=== PATIENT | female | born 1970 | race Caucasian/White ===

== ENCOUNTER 2021-08-08 08:56 | Emergency (ER) | payer MEDICARE, SELFPAY ==
[2021-08-08 08:57] VITALS: BP 177/107; PULSE 100; RESP 18; TEMP 36.6; O2SAT 100; BMI 26.5
--- NOTE | 2021-08-08 09:04 | ED.RN ---
Pt does state she twisyed her ankle the other day and banged her knee but does not want any x-rays obtained.
--- NOTE | 2021-08-08 09:07 | EDS_ITS ---
HPI History of Present Illness Chief Complaint: Med Refill Detail of Chief Complaint: Prescription refill for chronic pain Informant: patient Onset/Context/Timing Onset: - (Patient with chronic pain since the age of 6. Requesting prescription for pain medicine.) Context: - (Not applicable) Timing: Continuous Quality: Pain Location: Predominantly right side Current Severity: Mild Maximum Severity: Moderate Worsened by: Activity Relieved by: Pain medicine Associated Symptoms Associated Symptoms: No associated symptoms Narrative Narrative: Patient is a 51-year-old woman who relocated from [place]. She states she was sent from the [facility]. She has an appointment to be seen at the [facility] on Wednesday. Patient denies constitutional symptoms. She denies new HEENT symptoms. She denies cardiac respiratory symptoms. She states she has scleroderma. Patient states she is presently on no medicine for scleroderma. She does have history of hypercholesterolemia. 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 Prior similar symptoms: Yes Recent Illness/Hospitalization: No PFSH PFSH Medical History (Updated 08/08/21 @ 09:[address] Omega Starkey MD) Acid reflux High cholesterol History of chronic pain Scleroderma Home Medications oxycodone-acetaminophen 7.5 mg-300 mg tablet 1 tab PO Q6H PRN pain 4 days #16 tabs 08/08/21 [Rx Last Taken Unknown] Allergy/AdvReac Type Severity Reaction Status Date / Time duloxetine [From Cymbalta] Allergy Chest Verified 08/08/21 09:00 tightness trazodone Allergy Chest Verified 08/08/21 09:00 tightness tramadol AdvReac Other Verified 08/08/21 09:00 Surgical History (Updated 08/08/21 @ 09:09 by Qasim Palacios RN) H/O eye surgery History of carpal tunnel surgery Hx of right knee surgery Social History (Updated 08/08/21 @ 09:[address] Omega Starkey MD) household members: none Smoking Status: Current every day smoker substance use type: does not use ROS ROS ED Constitutional Constitutional ED: Denies chills, fever(s), subjective, sweats or weight loss Eyes Eyes: Denies blurry vision or change in vision ENT ENT ED: Denies ear pain, rhinorrhea or sore throat Cardiovascular Cardiovascular: Denies chest pain or palpitations Respiratory/Chest Respiratory/Chest: Denies cough or dyspnea Gastrointestinal Gastrointestinal: Denies nausea or vomiting Neurologic Neurologic: Reports paresthesias, weakness and other Details: Atrophy with neuromuscular deformity of the left upper and lower extremity. EXAM Physical Exam Narrative Exam Narrative: Patient presents after referral from [facility]. She states she has an appointment on Wednesday. She has a letter from the pain and spine consultants that she was seen when she resided in [place]. She has relocated to [place]. Const Vital Signs: 08/08/21 08:57 Temperature 97.9 F Temperature Source Temporal Pulse Rate 100 Respiratory Rate 18 Blood Pressure 177/107 H Blood Pressure Mean 130 Pulse Ox 100 Oxygen Delivery Method Room Air Positive well nourished; Negative for well developed Constitutional Narrative: Patient has significant atrophy of the left upper and lower extremity. There is also shortening of the left lower extremity. General Appearance ED: Negative for well developed Eyes Negative for PERRL or EOMs intact bilaterally Eyes Narrative: The right eye externally appears normal. The left eyelids are sutured shot. Resp normal respiratory effort Cardio regular rate and regular rhythm Extremity Negative for normal to inspection Extremity Narrative: Marked atrophy and deformity of left upper and lower extremity Neuro oriented x3, CN's II-XII intact bilaterally and No no sensory deficits noted Sensorium / Orientation: alert Motor Exam: Negative for strength 5/5 throughout Psych mental status grossly normal Skin no rashes or lesions noted and no wounds MDM MDM MDM Narrative Medical decision making narrative: Confirmed that the patient does have an appointment on Wednesday at the clinic to establish as a new patient. Patient will receive 3-day supply of oxycodone 7.5 mg. Based on prescription from [place] pharmacy she takes 1 tablet 4 times a day. Discharge Plan Triage Chief Complaint: Med Refill ED Provider: Omega Starkey Dx/Rx/DC Orders Clinical Impression: Chronic pain disorder, Prescription refill Prescriptions: New oxycodone-acetaminophen 7.5-300 mg tablet 1 tab PO Q6H PRN (Reason: pain) 4 Days Qty: 16 0RF Primary Care Provider: Frida Ruiz NP Referrals: Frida Ruiz DRILLING RIG OPERATOR, DRILLING RIG OPERATOR-C [Primary Care Provider] - Keep Boubacar appointment Disposition Disposition: Home, Self Care
== END 2021-08-08 09:55 | disposition home or self-care (01) ==
PROVIDERS: Emergency Provider Emergency Medicine; PCP Clinical Nurse Specialist; Visit Provider Emergency Medicine
DX: G89.29 Other chronic pain (principal); Z76.0 Encounter for issue of repeat prescription; F17.200 Nicotine dependence, unspecified, uncomplicated; E78.00 Pure hypercholesterolemia, unspecified
CPT/HCPCS: 99282

== ENCOUNTER 2021-11-21 11:41 | Emergency (ER) | payer MEDICARE, MEDICAID, SELFPAY ==
[2021-11-21 11:42] VITALS: BP 152/110; PULSE 102; RESP 16; TEMP 36.3; O2SAT 100; BMI 26.0
--- NOTE | 2021-11-21 12:14 | EX.ED.UPPERE ---
HPI <LORETTA Zarco - Last Filed: 11/21/21 12:21> History of Present Illness Chief Complaint: Upper Extremity Injury Narrative Narrative: 51-year-old female with history of scleredema with left-sided arm, lower extremity weakness, history of chronic pain, hyperlipidemia. Patient has been in pain management, patient states she had a fall which she fractured her left shoulder, she took an extra Percocet and was dismissed from her pain management. Patient has been seeing her PCP who is been giving her 1 month prescription of 120 Percocets. The PCP referred her to pain management, patient is currently waiting to see pain management here in [place]. Patient was given 12 from her orthopedic 4 days ago, patient states that she is out, she has been on Percocet for 25 years and she is concerned. Patient does have plans to follow-up with a [facility] pain or chills nausea or vomiting. Patient states she has worsening pain to her left shoulder as well as throughout her whole body. PFSH <LORETTA Zarco - Last Filed: 11/21/21 12:21> PFSH Medical History Acid reflux High cholesterol History of chronic pain Scleroderma Home Medications cephalexin 250 mg capsule 250 mg PO TID 10/30/21 [History Last Taken Unknown] oxycodone-acetaminophen 7.5 mg-325 mg tablet (Percocet) 1 tab PO Q8H PRN pain 3 days #12 tabs 11/21/21 [Rx Last Taken Unknown] Allergy/AdvReac Type Severity Reaction Status Date / Time duloxetine [From Cymbalta] Allergy Chest Verified 11/21/21 11:45 tightness trazodone Allergy Chest Verified 11/21/21 11:45 tightness tramadol AdvReac Other Verified 11/21/21 11:45 Surgical History H/O eye surgery History of carpal tunnel surgery Hx of right knee surgery Social History household members: other details: step dad Smoking Status: Current every day smoker tobacco type: cigarettes alcohol intake: never substance use type: does not use what type of physical activity do you participate in: other details: stretches frequency: daily ROS <LORETTA Zarco - Last Filed: 11/21/21 12:21> ROS ED ROS Narrative Constitutional: Negative for fever, chills, weight loss, weakness Eyes: Negative for vision loss, vision change, double vision ENT: Negative for any sore throat, ear pain, congestion Cardiovascular: Negative for any chest pain, tightness, palpitations Respiratory: Negative for any cough, sputum production, hemoptysis, dyspnea, dyspnea on exertion, orthopnea Gastrointestinal: Negative for any abdominal pain, nausea, vomiting, diarrhea, constipation, blood in stool, blood in vomit : Negative for any urinary frequency, dysuria, retention, blood in urine Muscle skeletal: Negative for any muscle joint pain, stiffness, myalgias, arthralgias, neck pain, back pain. Positive for left shoulder pain, left leg pain, chronic muscle pain Neurological: Negative for any headache, syncope, numbness or tingling, dizziness Skin: Negative for any rashes, lumps, itching, abrasions, lacerations Psychiatric: Negative for any depression, anxiety, stress, suicidal ideation, homicidal ideation Hematologic: Negative for any easy bruising, excessive bruising, easy bleeding Allergies: Negative for any eczema, hives, rash EXAM <LORETTA Zarco - Last Filed: 11/21/21 12:21> Physical Exam Narrative Exam Narrative: Vital signs reviewed. HEET: Head normocephalic atraumatic, TMs clear bilaterally. Posterior pharynx is clear, moist mucous membranes. Nares clear bilaterally. Patient does have no use of her left eye. Neck: Supple with no lymphadenopathy or tenderness. No signs of meningismus, negative jolt sign. Cardiac: Regular rate and rhythm no murmurs gallops or rubs, equal peripheral pulses bilaterally. Respiratory: Lungs clear to auscultation bilaterally. No chest tenderness. Abdomen: Soft, nontender, nondistended. No abdominal bruit or pulsatile masses. No hepatosplenomegaly Extremities: Patient's left upper and lower extremities are deformed secondary to scleredema. Neuro: Cranial nerves II through XII intact, no focal neurological deficits. Skin: Clean dry and intact with no rash, purpura, petechiae, vesicles or pustules. Backs/flank: No CVA tenderness, no midline spinal tenderness, no deformity. Psych: Normal mood and affect. No SI, HI or acute psychosis. Const Vital Signs: 11/21/21 11:42 Temperature 97.4 F L Temperature Source Temporal Pulse Rate 102 H Respiratory Rate 16 Blood Pressure 152/110 H Blood Pressure Mean 124 Pulse Ox 100 Oxygen Delivery Method Room Air [facility] <Riaz PelaezLORETTA - Last Filed: 11/21/21 12:21> [facility] Narrative Medical decision making narrative: Patient appears to be in no respiratory distress, patient's vital signs are stable. Patient presents the emergency department for acute on chronic pain, concerning about her Percocet. Patient states that she has been on Percocet for 25 years, she is having difficulty getting to the pain management clinic here, she has seen her PCP, orthopedic, and they are no longer providing Percocet for her. Patient is requesting Percocet tabs, 3 days worth, so she can taper herself off until she sees the pain management clinic. I did have a long conversation with the patient regarding this, she has to be aware that we are not her pain clinic, we are not her PCP, and we will not be providing her chronic pain medicine for her chronic pain. Patient is verbally understanding of this, she does have a plan in place. Patient will receive 3 days of pain medicine, this will be used until she follows up with her pain management. Patient is happy with the plan of care and is stable for discharge <Dr. Uli Groves, - Last Filed: 11/21/21 16:29> [facility] Narrative Medical decision making narrative: Patient appears to be in no respiratory distress, patient's vital signs are stable. Patient presents the emergency department for acute on chronic pain, concerning about her Percocet. Patient states that she has been on Percocet for 25 years, she is having difficulty getting to the pain management clinic here, she has seen her PCP, orthopedic, and they are no longer providing Percocet for her. Patient is requesting Percocet tabs, 3 days worth, so she can taper herself off until she sees the pain management clinic. I did have a long conversation with the patient regarding this, she has to be aware that we are not her pain clinic, we are not her PCP, and we will not be providing her chronic pain medicine for her chronic pain. Patient is verbally understanding of this, she does have a plan in place. Patient will receive 3 days of pain medicine, this will be used until she follows up with her pain management. Patient is happy with the plan of care and is stable for discharge Attending note: Patient seen and evaluated with hadoop architect. I perform my own [id number] evaluation. I agree with the plan of work-up. Chronic pain with scleroderma, fairly recent fracture shoulder followed by orthopedics. She is seeing pain management. On Percocet 7.5 mg. Due to pill count off she is discharged from the practice. Orthopedics has written her recent prescriptions last time was nearly a week ago. She is being referred to local pain management. She is here for assistance. Exam atrophy left side extremities due to her scleroderma. Patient limited range of motion left upper extremity. Vitals stable nontoxic. OARRS report reviewed no overlap. Prescription a week ago. Discussed given 3 days prescription however refills cannot go through the ED. She understands this. All questions were answered. Discharge Plan Triage Chief Complaint: Upper Extremity Injury ED Midlevel Provider: Riaz Pelaez ED Provider: Uli Groves Dx/Rx/DC Orders Clinical Impression: Chronic pain, Medication refill, Hx of scleroderma Instructions: Chronic Pain Therapies Mind Body, ED Chronic Pain Prescriptions: New oxycodone-acetaminophen [Percocet] 7.5-325 mg tablet 1 tab PO Q8H PRN (Reason: pain) 3 Days Qty: 12 0RF No Action cephalexin 250 mg capsule 250 mg PO TID Primary Care Provider: Frida Ruiz NP Referrals: Frida Ruiz ROCK MASON APPRENTICE, ROCK MASON APPRENTICE-C [Primary Care Provider] - Activity Restrictions/Additional Instructions: You need to follow-up with the pain management. Disposition Disposition: Home, Self Care Discharge Date/Time: 11/21/21 12:41
== END 2021-11-21 12:41 | disposition home or self-care (01) ==
LOC: ED 12:30
PROVIDERS: Emergency Provider Emergency Medicine; PCP Clinical Nurse Specialist; Visit Provider Emergency Medicine
DX: G89.29 Other chronic pain (principal); M34.9 Systemic sclerosis, unspecified; Z76.0 Encounter for issue of repeat prescription; E78.00 Pure hypercholesterolemia, unspecified; K21.9 Gastro-esophageal reflux disease without esophagitis; F17.210 Nicotine dependence, cigarettes, uncomplicated; Z79.899 Other long term (current) drug therapy
CPT/HCPCS: 99282

== ENCOUNTER → 2022-04-08 | Outpatient (CLI) | payer MEDICARE, MEDICAID, SELFPAY ==
--- NOTE | 2022-04-08 18:25 | MRI_ITS ---
STUDY: MRI RIGHT HIP REASON FOR EXAM: Female, 51 years old. History of scleroderma since age 6 with severe right hip pain. Sclerotic right femoral lesion. TECHNIQUE: Standardized fat and water weighted pulse sequences were obtained in all 3 orthogonal planes before and after the administration of 9 mL of Clariscan contrast intravenously. COMPARISON: X-rays dated January 2022 and prior MRI dated April 2021. FINDINGS: Small bilateral hip effusions. Normal acetabulum. Normal labrum. 11 mm in diameter circumscribed lesion in the anterior and lateral aspect of the right humeral head, unchanged from comparison MRI study of April 2021. Correlating this lesion with the radiographs, the most likely diagnosis is a benign enchondroma. No aggressive features and no abnormal contrast enhancement. Normal femoral neck and intratrochanteric region. Normal gluteus minimus, medius and iliopsoas tendons and distal insertions. Marked greater trochanteric bursitis (coronal series 12 and 15 images 10-16). Normal superior and inferior pubic rami. Normal pubic symphysis. Normal ischial tuberosity. Normal origin of the hamstring tendons. Normal visualized iliac wing, sacroiliac joint, and sacral ala. Normal visualized soft tissue structures of the pelvis. MRI/Lower Ext Joint Only W/WO Cont IMPRESSION: Circumscribed lesion in the right humeral head compatible with enchondroma, unchanged from prior MRI study of April 2021. Marked right greater trochanteric bursitis. Bilateral small hip effusions. Electronically Signed: Tone , at 9:57 EST ,
== END | disposition home or self-care (01) ==
LOC: MRI 17:40
PROVIDERS: PCP Nurse Practitioner Primary Care; Visit Provider Internal Medicine Medical Oncology
DX: Q78.2 Osteopetrosis (principal)
CPT/HCPCS: 73723; A9575

== ENCOUNTER → 2022-05-08 | Outpatient (CLI) | payer MEDICARE, MEDICAID, SELFPAY ==
[2022-05-08] MEDS: 0.9% NaCl PICC Flush IV ×2 (09:49→10:34)
[2022-05-08 10:00] VITALS: BP 127/73; PULSE 94; RESP 16; O2SAT 100; BMI 23.3
== END | disposition home or self-care (01) ==
LOC: MEDOUTP 09:40
PROVIDERS: PCP Nurse Practitioner Primary Care
DX: L03.114 Cellulitis of left upper limb (principal)
CPT/HCPCS: 96365; A4216

== ENCOUNTER 2022-05-09 09:25 | Outpatient (CLI) | payer MEDICARE, MEDICAID, SELFPAY ==
[2022-05-09 10:02] VITALS: BP 141/83; PULSE 81; RESP 18; TEMP 36.8; O2SAT 100
[2022-05-09] MEDS: 0.9% NaCl PICC Flush IV ×2 (10:05→11:08)
[2022-05-09 11:09] VITALS: BP 145/83; PULSE 77; RESP 18; TEMP 36.8; O2SAT 98
== END 2022-05-09 11:15 | disposition home or self-care (01) ==
LOC: MEDOUTP 09:25 → MS3 09:26
PROVIDERS: PCP Nurse Practitioner Primary Care
DX: L03.114 Cellulitis of left upper limb (principal)
CPT/HCPCS: 96365; A4216

== ENCOUNTER 2022-05-10 10:07 | Outpatient (CLI) | payer MEDICARE, MEDICAID, SELFPAY ==
[2022-05-10 09:45] VITALS: BP 159/81; PULSE 90; RESP 18; TEMP 37; O2SAT 100
[2022-05-10] MEDS: 0.9% NaCl PICC Flush IV ×2 (09:48→10:39)
[2022-05-10 10:39] VITALS: BP 159/81; PULSE 80; RESP 18; TEMP 36.7; O2SAT 100
== END 2022-05-10 10:46 | disposition home or self-care (01) ==
LOC: MEDOUTP 10:07 → MS3 10:08
PROVIDERS: PCP Nurse Practitioner Primary Care
DX: L03.114 Cellulitis of left upper limb (principal)
CPT/HCPCS: 96365; A4216

== ENCOUNTER → 2022-05-11 | Outpatient (CLI) | payer MEDICARE, MEDICAID, SELFPAY ==
[2022-05-11] MEDS: 0.9% NaCl PICC Flush IV (10:43)
[2022-05-11 10:54] VITALS: BP 150/79; PULSE 90; RESP 16; TEMP 36; O2SAT 100; BMI 23.3
[2022-05-11 11:51] VITALS: BP 144/77; PULSE 79; RESP 14; TEMP 36.2; O2SAT 99
== END | disposition home or self-care (01) ==
LOC: MEDOUTP 10:28
PROVIDERS: PCP Nurse Practitioner Primary Care
DX: L03.90 Cellulitis, unspecified (principal)
CPT/HCPCS: 96365; 96375; J7050; A4216

== ENCOUNTER → 2022-05-12 | Outpatient (CLI) | payer MEDICARE, MEDICAID, SELFPAY ==
[2022-05-12] MEDS: 0.9% NaCl PICC Flush IV ×2 (10:52→12:07)
[2022-05-12 10:56] VITALS: BP 151/77; PULSE 94; RESP 14; O2SAT 99; BMI 23.3
[2022-05-12 12:11] VITALS: BP 160/72; PULSE 81; RESP 16; TEMP 36.7; O2SAT 100
== END | disposition home or self-care (01) ==
LOC: MEDOUTP 10:39
PROVIDERS: PCP Nurse Practitioner Primary Care
DX: L03.90 Cellulitis, unspecified (principal)
CPT/HCPCS: 96365; 96375; J7050; A4216

== ENCOUNTER → 2022-05-13 | Outpatient (CLI) | payer MEDICARE, MEDICAID, SELFPAY ==
[2022-05-13 12:37] VITALS: BP 144/83; PULSE 88; RESP 16; TEMP 36.6; O2SAT 100
[2022-05-13] MEDS: 0.9% NaCl PICC Flush IV ×2 (12:40→13:40)
[2022-05-13 13:42] VITALS: BP 144/78; PULSE 81; RESP 16; TEMP 36.2; O2SAT 100
== END | disposition home or self-care (01) ==
LOC: MEDOUTP 12:12
PROVIDERS: PCP Nurse Practitioner Primary Care
DX: L03.90 Cellulitis, unspecified (principal)
CPT/HCPCS: 96361; 96365; J7050; A4216

== ENCOUNTER 2022-05-14 10:18 | Emergency (ER) | payer MEDICARE, MEDICAID, SELFPAY ==
[2022-05-14 10:19] VITALS: BP 124/108; PULSE 113; RESP 18; TEMP 35.9; O2SAT 98; BMI 23.6
--- NOTE | 2022-05-14 10:32 | EX.ED.UPPERE ---
HPI History of Present Illness HPI Narrative: Wound evaluation and dressing change. Chief Complaint: Wound Informant: patient Onset/Context/Timing Onset: Days Current Severity: Mild Maximum Severity: Mild Narrative Narrative: 51-year-old female has severe scleroderma of her left upper and left lower extremity. Recently developed a wound infection of her left forearm. Has been receiving IV antibiotics via PICC line to treat that. She has a wound on her left mid forearm. Last night it was bleeding and they applied a dressing in [place]. She said it feels too tight and want to get it off and change today. She denies any fever or chills. She is being cared for at the wound care center. Prior similar symptoms: Yes Recent Illness/Hospitalization: Yes [facility] Medical History Acid reflux B12 deficiency Blindness of left eye Carpal tunnel syndrome Depression with anxiety Golfers elbow of right upper extremity High cholesterol History of chronic pain Insomnia Muscle spasms of both lower extremities Osteoporosis Right hip pain Scleroderma Soft tissue mass Vitamin D deficiency Home Medications amitriptyline 50 mg tablet 50 mg PO QHS 12/10/21 [History Last Taken Unknown] atorvastatin 20 mg tablet 20 mg PO QHS 12/10/21 [History Last Taken Unknown] dexlansoprazole 60 mg capsule,biphase delayed release 60 mg PO DAILY 12/10/21 [History Last Taken Unknown] eszopiclone 3 mg tablet 3 mg PO QHS 12/10/21 [History Last Taken Unknown] cetirizine 10 mg capsule (Zyrtec) 10 mg PO DAILY PRN PRN allergies 03/04/22 [History Last Taken Unknown] cholecalciferol (vitamin D3) 1,250 mcg (50,000 unit) capsule 1,250 mcg PO QWEEK 03/04/22 [History Last Taken Unknown] fenofibric acid (choline) 45 mg capsule,delayed release 45 mg PO DAILY 03/04/22 [History Last Taken Unknown] oxycodone-acetaminophen 7.5 mg-325 mg tablet (Percocet) 1 tab PO Q6H PRN Pain 05/08/22 [History Last Taken Unknown] Allergy/AdvReac Type Severity Reaction Status Date / Time duloxetine [From Cymbalta] Allergy Chest Verified 05/14/22 10:21 tightness trazodone Allergy Chest Verified 05/14/22 10:21 tightness tramadol AdvReac Other Verified 05/14/22 10:21 Family History Aunt Cancer lung Mother Diabetes Surgical History H/O eye surgery History of carpal tunnel surgery Hx of right knee surgery Social History household members: other details: step dad Smoking Status: Current every day smoker tobacco type: cigarettes alcohol intake: never substance use type: does not use what type of physical activity do you participate in: other details: stretches frequency: daily ROS ROS ED ROS Narrative Denies. Review of Systems ROS Unobtainable: Denies due to encephalopathy Constitutional Constitutional ED: Denies chills or fever(s) Eyes Eyes: Denies blurry vision ENT ENT ED: Denies ear pain Cardiovascular Cardiovascular: Denies chest pain Respiratory/Chest Respiratory/Chest: Denies cough or dyspnea Gastrointestinal Gastrointestinal: Denies abdominal pain Genitourinary Genitourinary ED: Denies dysuria or hematuria Musculoskeletal Musculoskeletal: Denies back pain Integumentary Denies abscess Neurologic Neurologic: Denies headache(s) Psychiatric Psychiatric: Denies anxiety or depression Endocrine Endocrinology: Denies cold intolerance Hematologic/Lymphatic Hematologic/Lymphatic: Denies easy bleeding Allergic/Immunologic Allergic/Immunologic ED: Denies mouth swelling EXAM Physical Exam Narrative Exam Narrative: Middle-age female no acute distress. Vital signs stable afebrile. H EENT exam she is blind in her left eye. Moist membranes. Neck nontender. Lungs clear. Heart regular rhythm. Rate about 110. No murmur. Chest wall nontender. Abdomen soft nontender. She has severe deformities with loss of muscle mass and tissue about the left upper and lower extremity from severe scleroderma. She has deformity of her left hand but has use of it. There is a wound in the mid left forearm on the dorsal side. There is a dressing in place. There is no significant swelling. She has a palpable radial pulse. She is able to open and close her hand but it is chronically deformed as is the entire arm. At this time there is no significant cellulitis. The arms not warm to the touch. I took down the dressing on the left forearm the gauze is adhered to the skin and the nurses will work to have that taken off. And change the dressing. Significant deformity and scleroderma of her left leg. She is awake and alert. She is moving all 4 extremities. Const Vital Signs: 05/14/22 10:19 Temperature 96.7 F L Temperature Source Temporal Pulse Rate 113 H Respiratory Rate 18 Blood Pressure 124/108 H Blood Pressure Mean 113 Pulse Ox 98 Oxygen Delivery Method Room Air Positive well nourished and well developed; Negative for obese, contractures or unkempt General Appearance ED: well developed and NAD; Negative for unkempt, contractures, cyanotic or diaphoretic Nutritional Appearance: Negative for obese HEENT Reports moist mucous membranes normocephalic and atraumatic; Negative for trauma or tenderness Eyes PERRL and EOMs intact bilaterally Eyes Narrative: Blind left eye. Neck full ROM and supple General: Negative for tenderness Lymph Lymphatic: Negative for other Chest Wall inspection of chest normal and palpation of chest normal Resp normal respiratory effort and clear to auscultation bilaterally Effort and Inspection: Negative for pain with movement Auscultation: Negative for rales, rhonchi or wheezes Cardio regular rate, regular rhythm, S1 normal heart sound, S2 normal heart sound and no murmurs Rate: Negative for bradycardia or tachycardic GI non-tender, non-distended and no masses Inspection: Negative for abdominal distention Auscultation: normoactive bowel sounds Palpation: soft; Negative for tender or guarding Back/Spine no CVA tenderness Cervical Spine: Negative for cervical spine tenderness Thoracic Spine / Upper Back: Negative for thoracic spinal tenderness Lumbar Spine / Lower Back: Negative for lumbar spinal tenderness Extremity Negative for normal to inspection or full ROM Extremity Narrative: Chronic deformity of the left upper and lower extremity due to scleroderma. Muscular atrophy. Contractures. Left forearm wound dressed. Dressing is adhered to the wound will need get that off. There is no edema. General Extremety ED: Yes edema General Extremity: edema Neuro oriented x3 and moves all extremities Sensorium / Orientation: alert, oriented to person, oriented to place and oriented to time; Negative for orientation impaired or lethargic Motor Exam: strength 5/5 throughout Psych mental status grossly normal Appearance: Negative for unkempt Attitude: No agitated Mood & Affect: Negative for depressed, anxious or tearful Skin Skin Narrative: Left forearm wound with dressing on it. No cellulitis. Chronic changes left upper lower extremity from scleroderma. General Skin Exam: Negative for petechiae Lesions: No no lesions Rashes: no rashes Trauma: no lacerations or abrasions MDM MDM MDM Narrative Medical decision making narrative: Patient appears to be getting resolution of the left forearm wound. We will clean the wound and dress it. Currently there is no significant cellulitis. She is already on IV antibiotics through a PICC line. She has severe scleroderma of the left upper lower extremity. She nurses will change the dressing she will be discharged home. Continue your current therapy and follow-up with the wound care center. History & Record Review Discussion w/independent historian: Patient Discharge Plan Triage Chief Complaint: Wound ED Provider: Jimmy Crouch Dx/Rx/DC Orders Clinical Impression: Open wound of left forearm, History of scleroderma Prescriptions: No Action dexlansoprazole 60 mg capsule,biphase delayed releas 60 mg PO DAILY Label Comments: TAKE 1 CAPSULE BY MOUTH ONCE DAILY amitriptyline 50 mg tablet 50 mg PO QHS eszopiclone 3 mg tablet 3 mg PO QHS Label Comments: TAKE 1 TABLET BY MOUTH ONCE DAILY AT BEDTIME atorvastatin 20 mg tablet 20 mg PO QHS Label Comments: TAKE 1 TABLET BY MOUTH AT BEDTIME cholecalciferol (vitamin D3) 1,250 mcg (50,000 unit) capsule 1,250 mcg PO QWEEK fenofibric acid (choline) 45 mg capsule,delayed release(DR/EC) 45 mg PO DAILY Zyrtec 10 mg capsule 10 mg PO DAILY PRN PRN (Reason: allergies) oxycodone-acetaminophen [Percocet] 7.5-325 mg tablet 1 tab PO Q6H PRN (Reason: Pain) Primary Care Provider: Vale Block NP Referrals: Vale Block NP, SOLAR ENERGY CONSULTANT AND DESIGNER-C [Primary Care Provider] - As Needed Activity Restrictions/Additional Instructions: Follow-up with wound care center. Follow-up with those who are treating your wound with the antibiotics. Disposition Disposition: Home, Self Care
== END 2022-05-14 11:47 | disposition home or self-care (01) ==
LOC: ED 10:43
PROVIDERS: Emergency Provider Emergency Medicine; PCP Nurse Practitioner Primary Care; Visit Provider Emergency Medicine
DX: S51.802A Unspecified open wound of left forearm, initial encounter (principal); M34.9 Systemic sclerosis, unspecified; E78.00 Pure hypercholesterolemia, unspecified; Z79.899 Other long term (current) drug therapy; K21.9 Gastro-esophageal reflux disease without esophagitis; G47.00 Insomnia, unspecified; F17.210 Nicotine dependence, cigarettes, uncomplicated
CPT/HCPCS: 36592; 80053; 80202; 85027; 85652; 99282; J7050; A4216

== ENCOUNTER 2022-05-14 12:04 | Outpatient (CLI) | payer MEDICARE, MEDICAID, SELFPAY ==
[2022-05-14] MEDS: 0.9% NaCl PICC Flush IV ×2 (12:56→13:53)
[2022-05-14 12:57] VITALS: BP 147/81; PULSE 96; RESP 15; TEMP 36.4; O2SAT 98; BMI 23.6
[2022-05-14 13:13] LABS: Hematocrit 32.5 % (37-47); Hemoglobin 10.6 g/dL (12.0-15.0); Mean Corp Hgb Conc 32.6 g/dL (32-36); Mean Corpuscular Hgb 30.2 pg (27.0-32.0); Mean Corpuscular Volume 92.6 fL (81-99); Mean Platelet Vol. 9.5 fl (6.2-12.0); Platelet Count 363 K/mm3 (150-450); RBC Distribution Width CV 12.9 % (11.6-14.6); RBC Distribution Width SD 43.8 fl (35.1-43.9); Red Blood Count 3.51 M/mm3 (4.2-5.4); White Blood Count 7.4 K/mm3 (4.4-11.0)
[2022-05-14 13:23] LABS: Erythrocyte Sedimentation Rate 40 mm/hr (0-30)
[2022-05-14 13:30] LABS: ALB/GLOB Ratio 0.6 RATIO (0.9-2.4); AST(SGOT) 22 U/L (15-37); Alanine Aminotransfer ALT/SGPT 11 U/L (13-56); Albumin, Serum 2.9 g/dL (3.2-5.0); Alkaline Phosphatase 141 U/L (45-117); Anion Gap 9 (5-15); BUN 10 mg/dL (7-18); BUN/Creat Ratio 10.8 RATIO (10-20); Calcium,Total 9.4 mg/dL (8.5-10.1); Chloride 102 mmol/L (98-107); Creatinine, Serum 0.93 mg/dL (0.55-1.02); EST Glomerular Filtration Rate 68 mL/min (>60); Est Glom Filt Rate - Afr Amer 83 mL/min (>60); Estimated Creatinine Clearance 51.35 ml/min; Globulin 4.5 g/dL (2.2-4.2); Glucose 104 mg/dL (74-106); Potassium 3.1 mmol/L (3.5-5.1); Protein, Total 7.4 g/dL (6.4-8.2); Sodium Level 138 mmol/L (136-145)
[2022-05-14 13:33] VITALS: BP 159/77; PULSE 78; RESP 14; TEMP 36.6; O2SAT 98
[2022-05-14 13:45] LABS: Vancomycin, Trough Level < 0.8 ug/mL (5.0-15.0)
== END 2022-05-14 23:59 | disposition home or self-care (01) ==
LOC: MEDOUTP 12:05
PROVIDERS: PCP Nurse Practitioner Primary Care
DX: L03.114 Cellulitis of left upper limb (principal)
CPT/HCPCS: 96365; 96367; 36592; 80053; 80202; 85027; 85652; J7050; A4216

== ENCOUNTER → 2022-05-15 | Outpatient (CLI) | payer MEDICARE, MEDICAID, SELFPAY ==
[2022-05-15] MEDS: 0.9% NaCl PICC Flush IV ×2 (11:33→12:33)
[2022-05-15] MEDS: 0.9% NaCl IVPB Med Flush (250 mL) 15 ML IV (11:36)
[2022-05-15 11:38] VITALS: BP 144/75; PULSE 82; RESP 16; TEMP 35.9; O2SAT 100; BMI 23.6
[2022-05-15 12:34] VITALS: BP 140/67; PULSE 77; O2SAT 100
== END | disposition home or self-care (01) ==
LOC: MEDOUTP 11:15
PROVIDERS: PCP Nurse Practitioner Primary Care
DX: L03.90 Cellulitis, unspecified (principal)
CPT/HCPCS: 96365; J7050; A4216

== ENCOUNTER 2022-05-16 12:25 | Outpatient (CLI) | payer MEDICARE, MEDICAID, SELFPAY ==
[2022-05-16] MEDS: 0.9% NaCl PICC Flush IV ×2 (12:39→13:32)
== END 2022-05-16 13:36 | disposition home or self-care (01) ==
LOC: MEDOUTP 12:26 → MS3 12:26
PROVIDERS: PCP Nurse Practitioner Primary Care
DX: L03.114 Cellulitis of left upper limb (principal)
CPT/HCPCS: 96365; A4216

== ENCOUNTER 2022-05-17 12:16 | Outpatient (CLI) | payer MEDICARE, MEDICAID, SELFPAY ==
[2022-05-17] MEDS: 0.9% NaCl PICC Flush IV (12:21)
== END 2022-05-17 13:15 | disposition home or self-care (01) ==
LOC: MEDOUTP 12:17 → MS3 12:18
PROVIDERS: PCP Nurse Practitioner Primary Care
DX: L03.114 Cellulitis of left upper limb (principal)
CPT/HCPCS: 96365; A4216

== ENCOUNTER → 2022-05-18 | Outpatient (CLI) | payer MEDICARE, MEDICAID, SELFPAY ==
[2022-05-18] MEDS: 0.9% NaCl PICC Flush IV ×2 (13:47→14:46)
[2022-05-18 13:49] VITALS: BP 142/67; PULSE 91; RESP 16; TEMP 36.7; O2SAT 100
[2022-05-18 14:47] VITALS: BP 135/60; PULSE 75; RESP 16; TEMP 36.3; O2SAT 95
== END | disposition home or self-care (01) ==
LOC: MEDOUTP 13:22
PROVIDERS: PCP Nurse Practitioner Primary Care
DX: L03.90 Cellulitis, unspecified (principal)
CPT/HCPCS: 96365; J7050; A4216

== ENCOUNTER → 2022-05-19 | Outpatient (CLI) | payer MEDICARE, MEDICAID, SELFPAY ==
[2022-05-19] MEDS: 0.9% NaCl PICC Flush IV ×2 (13:33→14:28)
[2022-05-19 13:35] VITALS: BP 135/61; PULSE 61; RESP 16; TEMP 36.7; O2SAT 98
[2022-05-19 14:32] VITALS: BP 121/71; PULSE 82; RESP 16; TEMP 36; O2SAT 100
== END | disposition home or self-care (01) ==
LOC: MEDOUTP 13:19
PROVIDERS: PCP Nurse Practitioner Primary Care
DX: L03.90 Cellulitis, unspecified (principal)
CPT/HCPCS: 96365; J7050; A4216

== ENCOUNTER → 2022-05-20 | Outpatient (CLI) | payer MEDICARE, MEDICAID, SELFPAY ==
[2022-05-20] MEDS: 0.9% NaCl PICC Flush IV ×2 (13:25→14:25)
[2022-05-20] MEDS: 0.9% NaCl IVPB Med Flush (250 mL) 15 ML IV (13:25)
[2022-05-20 13:26] VITALS: BP 116/67; PULSE 83; RESP 16; TEMP 36.4; O2SAT 98
[2022-05-20 14:27] VITALS: BP 133/70; PULSE 79; RESP 16; TEMP 36.2; O2SAT 99
== END | disposition home or self-care (01) ==
LOC: MEDOUTP 13:02
PROVIDERS: PCP Nurse Practitioner Primary Care
DX: L03.90 Cellulitis, unspecified (principal)
CPT/HCPCS: 96365; 96367; J7050; A4216

== ENCOUNTER → 2022-05-21 | Outpatient (CLI) | payer MEDICARE, MEDICAID, SELFPAY ==
[2022-05-21 14:40] VITALS: BP 139/70; PULSE 87; RESP 16; TEMP 36.6; O2SAT 100; BMI 23.6
[2022-05-21] MEDS: 0.9% NaCl PICC Flush IV ×2 (14:44→15:49)
[2022-05-21 15:25] LABS: Erythrocyte Sedimentation Rate 42 mm/hr (0-30); Hematocrit 31.5 % (37-47); Hemoglobin 10.4 g/dL (12.0-15.0); Mean Corpuscular Volume 93.8 fL (81-99); Mean Platelet Vol. 9.7 fl (6.2-12.0); Platelet Count 374 K/mm3 (150-450); RBC Distribution Width SD 44.4 fl (35.1-43.9); Red Blood Count 3.36 M/mm3 (4.2-5.4); White Blood Count 6.1 K/mm3 (4.4-11.0)
[2022-05-21 15:50] VITALS: BP 152/73; PULSE 75; RESP 16; TEMP 36.3
[2022-05-21 15:54] LABS: ALB/GLOB Ratio 0.7 RATIO (0.9-2.4); AST(SGOT) 30 U/L (15-37); Alanine Aminotransfer ALT/SGPT 18 U/L (13-56); Albumin, Serum 3.1 g/dL (3.2-5.0); Alkaline Phosphatase 157 U/L (45-117); Anion Gap 7 (5-15); BUN 8 mg/dL (7-18); BUN/Creat Ratio 10.8 RATIO (10-20); Calcium,Total 9.2 mg/dL (8.5-10.1); Chloride 103 mmol/L (98-107); Creatinine, Serum 0.74 mg/dL (0.55-1.02); EST Glomerular Filtration Rate 88 mL/min (>60); Est Glom Filt Rate - Afr Amer 107 mL/min (>60); Estimated Creatinine Clearance 64.53 ml/min; Globulin 4.2 g/dL (2.2-4.2); Glucose 94 mg/dL (74-106); Potassium 3.5 mmol/L (3.5-5.1); Protein, Total 7.3 g/dL (6.4-8.2); Sodium Level 139 mmol/L (136-145)
== END | disposition home or self-care (01) ==
LOC: MEDOUTP 14:20
PROVIDERS: PCP Nurse Practitioner Primary Care
DX: L03.114 Cellulitis of left upper limb (principal)
CPT/HCPCS: 96365; 96367; 80053; 85027; 85652; A4216

== ENCOUNTER → 2022-05-26 | Outpatient (CLI) | payer MEDICARE, MEDICAID, SELFPAY | END | disposition home or self-care (01) | PROVIDERS: PCP Nurse Practitioner Primary Care | DX: Z00.00 Encounter for general adult medical examination without abnormal findings (principal) ==

== ENCOUNTER → 2022-08-31 | Outpatient (CLI) | payer MEDICARE, MEDICAID, SELFPAY ==
[2022-08-31 13:10] LABS: Amphetamine Urine VISTA NEGATIVE (<1000 ng/mL); Barbiturate Urine VISTA NEGATIVE (< 200 ng/mL); Benzodiazepine Urine VISTA NEGATIVE (< 200 ng/mL); Cocaine Urine VISTA NEGATIVE (< 300 ng/mL); Ecstacy Urine VISTA NEGATIVE (< 500 ng/mL); Methadone Urine VISTA NEGATIVE (< 300 ng/mL); PCP Urine VISTA NEGATIVE (< 25 ng/mL); THC Urine VISTA POSITIVE (< 50 ng/mL); Vista UDS pH Range 6
== END | disposition home or self-care (01) ==
LOC: LAB 11:57
PROVIDERS: Referring Provider Anesthesiology Pain Medicine; Visit Provider Anesthesiology Pain Medicine
DX: F11.20 Opioid dependence, uncomplicated (principal)
CPT/HCPCS: 80307

== ENCOUNTER 2023-02-15 14:21 | Emergency (ER) | payer MEDICARE, MEDICAID, SELFPAY ==
[2023-02-15 14:22] VITALS: BP 175/92; PULSE 106; RESP 16; TEMP 36.2; O2SAT 100; BMI 24.1
--- NOTE | 2023-02-15 14:32 | EX.ED.DYSGE1 ---
HPI History of Present Illness Chief Complaint: General Illness Informant: patient Onset/Context/Timing Onset: Days (5 days) Narrative Narrative: Patient presents secondary to cough and congestion. She states that she saw her father last Wednesday who was later diagnosed with COVID and ultimately admitted to the hospital. On she started getting cough and congestion. She took a home COVID test on Wednesday that was negative but continues to feel ill. She had some subjective fevers but did not measure her temperature at home. She has a cough with mild green sputum production. No chest pain. She does not feel short of breath. [facility] Medical History Acid reflux B12 deficiency Blindness of left eye Carpal tunnel syndrome Depression with anxiety Golfers elbow of right upper extremity High cholesterol History of chronic pain Insomnia Muscle spasms of both lower extremities Osteoporosis Right hip pain Scleroderma Soft tissue mass Vitamin D deficiency Home Medications amitriptyline 50 mg tablet 50 mg PO QHS 12/10/21 [History Last Taken Unknown] atorvastatin 20 mg tablet 20 mg PO QHS 12/10/21 [History Last Taken Unknown] dexlansoprazole 60 mg capsule,biphase delayed release 60 mg PO DAILY 12/10/21 [History Last Taken Unknown] eszopiclone 3 mg tablet 3 mg PO QHS 12/10/21 [History Last Taken Unknown] cetirizine 10 mg capsule (Zyrtec) 10 mg PO DAILY PRN PRN allergies 03/04/22 [History Last Taken Unknown] cholecalciferol (vitamin D3) 1,250 mcg (50,000 unit) capsule 1,250 mcg PO QWEEK 03/04/22 [History Last Taken Unknown] fenofibric acid (choline) 45 mg capsule,delayed release 45 mg PO DAILY 03/04/22 [History Last Taken Unknown] oxycodone-acetaminophen 7.5 mg-325 mg tablet (Percocet) 1 tab PO Q6H PRN Pain 05/08/22 [History Last Taken Unknown] Allergy/AdvReac Type Severity Reaction Status Date / Time duloxetine [From Cymbalta] Allergy Chest Verified 02/15/23 14:23 tightness trazodone Allergy Chest Verified 02/15/23 14:23 tightness tramadol AdvReac Other Verified 02/15/23 14:23 Family History Aunt Cancer lung Mother Diabetes Surgical History H/O eye surgery History of carpal tunnel surgery Hx of right knee surgery Social History household members: other details: step dad Smoking Status: Current every day smoker tobacco type: cigarettes alcohol intake: never substance use type: does not use what type of physical activity do you participate in: other details: stretches frequency: daily ROS ROS ED Constitutional Constitutional ED: Reports fever(s) and subjective; Denies chills Eyes Eyes: Denies change in vision or discharge from eye(s) ENT ENT ED: Reports other Details: Congestion ; Denies discharge from eye(s) or rhinorrhea Cardiovascular Cardiovascular: Denies chest pain or palpitations Respiratory/Chest Respiratory/Chest: Reports cough and sputum; Denies dyspnea Gastrointestinal Gastrointestinal: Denies abdominal pain, diarrhea, nausea or vomiting Genitourinary Genitourinary ED: Denies dysuria Musculoskeletal Musculoskeletal: Reports myalgias; Denies back pain or extremity pain Integumentary Denies Abrasions or rash Neurologic Neurologic: Reports weakness; Denies headache(s) Psychiatric Psychiatric: Denies anxiety or depression Allergic/Immunologic Allergic/Immunologic ED: Denies lip swelling or urticaria EXAM Physical Exam Const Vital Signs: 02/15/23 14:22 02/15/23 14:57 Temperature 97.2 F L Temperature Source Temporal Pulse Rate 106 H Respiratory Rate 16 Respiratory Pattern Normal Blood Pressure 175/92 H Blood Pressure Mean 119 Pulse Ox 100 Oxygen Delivery Method Room Air Positive well nourished and well developed General Appearance ED: well developed HEENT Reports moist mucous membranes Chest Wall inspection of chest normal and palpation of chest normal Resp normal respiratory effort and clear to auscultation bilaterally Cardio regular rate and regular rhythm GI non-tender Palpation: soft Extremity Extremity Narrative: Chronic contractures left side secondary to scleroderma. Neuro oriented x3 Psych mental status grossly normal Skin no rashes or lesions noted MDM MDM MDM Narrative Medical decision making narrative: Swab for COVID and influenza will be obtained. COVID test does return positive. Patient did have known exposure and is already had symptoms for greater than 5 days. At this point she will continue supportive care. Her O2 sat is 100%. Return instructions are given. Discharge Plan Triage Chief Complaint: General Illness ED Provider: Bianca Powers Dx/Rx/DC Orders Clinical Impression: COVID-19 Instructions: Coronavirus Disease 2019 (COVID-19): Overview, Coronavirus Disease 2019 (COVID-19): Caring for Yourself or Others Prescriptions: No Action dexlansoprazole 60 mg capsule,biphase delayed releas 60 mg PO DAILY Patient Comments: TAKE 1 CAPSULE BY MOUTH ONCE DAILY amitriptyline 50 mg tablet 50 mg PO QHS eszopiclone 3 mg tablet 3 mg PO QHS Patient Comments: TAKE 1 TABLET BY MOUTH ONCE DAILY AT BEDTIME atorvastatin 20 mg tablet 20 mg PO QHS Patient Comments: TAKE 1 TABLET BY MOUTH AT BEDTIME cholecalciferol (vitamin D3) 1,250 mcg (50,000 unit) capsule 1,250 mcg PO QWEEK fenofibric acid (choline) 45 mg capsule,delayed release(DR/EC) 45 mg PO DAILY Zyrtec 10 mg capsule 10 mg PO DAILY PRN PRN (Reason: allergies) oxycodone-acetaminophen [Percocet] 7.5-325 mg tablet 1 tab PO Q6H PRN (Reason: Pain) Primary Care Provider: Jeri Yates Referrals: Jeri Yates [Primary Care Provider] - 1-2 Weeks Disposition Disposition: Home, Self Care
--- OUTSIDE RECORDS SUMMARY | 2023-02-15 15:23 | XMS RPT_ITS | CCD ---
Author Name Unknown Address [address] [place] [address] Organization [facility] Care Team Providers Care Spinneret Cleaner Name Role Phone Bossman DASH, Galdino Carballo Primary Care Provider Toribio Ernandez MD Primary Care Provider Toribio Ernandez MD Primary Care Provider TORIBIO ERNANDEZ Referring Unavailable SILVANA JOE Attending Unavailable TORIBIO ERNANDEZ Primary Care Unavailable MARCELLUS ROSADO Attending Unavailable SILVANA JOE Referring Unavailable TORIBIO ERNANDEZ Primary Care Unavailable SUMAYA MURPHY-GARRISON, [facility] Primary Care Physician ASIM MOHAMUD, TEA Primary Care Physician [phone] ANTONINO MART MD, DR PATRICK BOND Attending Unavaila enrique SHELL APRN-TAX INTERN, [facility] Primary Care Leigh RUTLEDGE MD, DR PATRICK BOND Consulting UnavailHAMILTON Ge MD Attending Unavailable SUMAYA MURPHY-TAX INTERN, [facility] Primary Care Leigh JAMES MD, DR ALEXIS Jackson Admitting Unavailable BLACK MCCONNELL MD Consulting Unavailable POOJA DASH FACP, OLLIE Rojas Consulting Unavail MATTHIAS Delarosa MD Consulting Unavailable FRAN MOREAU DO Consulting Unavailable SUMAYA PUENTE, SOLIS Primary Care Leigh PUENTE, SOLIS Attending WILLARD Salazar Attending Evelia kenneth PUENTE, [facility] Primary Care Leigh PUENTE, [facility] Primary Care ARMANI Carpio DO Attending Unavailable ARMANI HEALY DO Referring Unavailable PERKINS AUTO CLUTCH SPECIALIST-TAX INTERN, WILLARD Jackson Attending Evelia vailable SEFFENS AUTO CLUTCH SPECIALIST-TAX INTERN, [facility] Primary Care Unavai lable SEFFENS AUTO CLUTCH SPECIALIST-TAX INTERN, [facility] Primary Care Unayashira LUCAS MD, SHRAVAN Rojas Attending Unavailable PERKINS AUTO CLUTCH SPECIALIST-TAX INTERN, WILLARD Jackson Attending Evelia vailable SEFFENS AUTO CLUTCH SPECIALIST-TAX INTERN, [facility] Primary Care Unavai lable SEFFENS AUTO CLUTCH SPECIALIST-TAX INTERN, [facility] Primary Care Unavai lable SEFFENS AUTO CLUTCH SPECIALIST-TAX INTERN, SOLIS Attending Unavai lable SEFFENS AUTO CLUTCH SPECIALIST-TAX INTERN, [facility] Primary Care Unavai lable SEFFENS AUTO CLUTCH SPECIALIST-TAX INTERN, SOLIS Attending Unavai lable SEFFENS AUTO CLUTCH SPECIALIST-TAX INTERN, SOLIS Attending Unavai lable SEFFENS AUTO CLUTCH SPECIALIST-TAX INTERN, [facility] Primary Care Unavai lable KAPPER AUTO CLUTCH SPECIALIST-TAX INTERN, YOHANNES Oakes Admitting Unavaila ble KAPPER AUTO CLUTCH SPECIALIST-TAX INTERN, YOHANNES Oakes Attending Unavaila ble KAPPER AUTO CLUTCH SPECIALIST-TAX INTERN, YOHANNES Oakes Referring Unavaila ble SEFFENS AUTO CLUTCH SPECIALIST-TAX INTERN, [facility] Primary Care Unavai lable SEFFENS AUTO CLUTCH SPECIALIST-TAX INTERN, [facility] Primary Care Leigh GREER MD, DR VILLA Attending Unavaillolis BRIONES MD, DR DAYTON Rasmussen Attending Unavailable SEFFENS AUTO CLUTCH SPECIALIST-TAX INTERN, [facility] Unavai cortez PHYSICIAN, NOT RECORDED Primary Care Unavaila enrique MANCUSO MD, MALVIN Michael Attending Unavail able PERKINS AUTO CLUTCH SPECIALIST-TAX INTERN, WILLARD Jackson Attending Evelia vailable SEFFENS AUTO CLUTCH SPECIALIST-TAX INTERN, [facility] Primary Care Unavai lable SEFFENS AUTO CLUTCH SPECIALIST-TAX INTERN, [facility] Primary Care Unavai cortez LUCAS MD, SHRAVNA Rojas Attending Unavailable VACCKAJAL HERNANDEZ-C, [facility] Primary Care Unavailab le PERKINS AUTO CLUTCH SPECIALIST-TAX INTERN, WILLARD Jackson Attending Evelia vailable PERKINS AUTO CLUTCH SPECIALIST-TAX INTERN, WILLARD Jackson Attending Evelia vailable SEFFENS AUTO CLUTCH SPECIALIST-TAX INTERN, [facility] Primary [facility] Unavai lable Stephenarelldonta HERNANDEZ-C, Tea L Unavailable [phone] SABRINA TINEO Attending Unavailable Junacho Slaughter MD Primary Care Provider JESSICA TRINIDADECCA Attending Unavailable JUANCHO SLAUGHTER Primary Care Unavailable JESSICA TRINIDADECCA Attending Unavailable JUANCHO SLAUGHTER Primary Care Unavailable JESSICA TRINIDADECCA Attending Unavailable JUANCHO SLAUGHTER Primary Care Unavailable DORY TRINIDADCA Attending Unavailable JUANCHO SLAUGHTER Primary Care Unavailable Allergies Allergy Classification Reported Allergen(s) Allergy Type Date of Onset Reaction(s) Facility (1 source) Acetaminophen / oxyCODONE Drug Allergy 0 GI Upset [facility] (20 sources) DULoxetine; Translations: [DULOXETINE] Drug Allergy 2 Other: See Comments, Other [facility] Work Phone: (20 sources) traMADol; Translations: [TRAMADOL] Drug Allergy 2 Other: See Comments, Other, Unknown [facility] Work Phone: (20 sources) traZODone; Translations: [TRAZODONE] Drug Allergy 2 Other: See Comments [facility] Work Phone: Medications Current Medications Medication Drug Class(es) Dates Sig (Normalized) Sig (Original) acetaminophen 325 mg / oxyCODONE hydrochloride 5 mg oral tablet (20 sources) Opioid Agonist Start: 12-07-2022 End: 03-07-2023 take 1 tablet by mouth every eight hours as needed for pain oxyCODONE-acetamin ophen (Percocet) 5-325 MG tablet Indications: Linear scleroderma , Chronic midline thoracic back pain Take 1 tablet by mouth every 8 hours as needed for severe pain (7-10). Do not start before February 05, 2023. 90 tablet 0 02/05/2023 03/07/2023 Active Completed/Discontinued Medications Medication Drug Class(es) Dates Sig (Normalized) Sig (Original) acetaminophen 300 mg / HYDROcodone bitartrate 7.5 mg oral tablet (15 sources) Opioid Agonist End: 11-24-2022 HYDROcodone-acetami nophen (Xodol) 7.5-300 MG tablet tablet Take by mouth. 0 11/24/2022 Discontinued (Therapy completed) Problems Active Problems Problem Classification Problem Date Documented Da te Episodic/Chronic Acquired foot deformities (1 source) Talipes cavus; Translations: [Congenital pes cavus, unspecified foot] Episodic Administrative/social admission (13 sources) Homeless 12-09-2021 Episodic Anxiety disorders (20 sources) Mixed anxiety and depressive disorder; Translations: [Anxiety disorder] Onset: 3 11-26-2021 Chronic Blindness and vision defects (20 sources) Blind left eye; Translations: [Blindness AND/OR vision impairment level] Onset: 3 11-26-2021 Chronic Cancer of breast (13 sources) Personal history of malignant neoplasm of breast; Translations: [History of malignant neoplasm of breast] Onset: Episodic Disorders of lipid metabolism (20 sources) Hypercholesterolemia; Translations: [Pure hypercholesterolemia] Onset: 3 11-26-2021 Chronic Esophageal disorders (20 sources) Gastroesophageal reflux disease; Translations: [Gastroesophageal reflux disease without esophagitis] Onset: 3 11-26-2021 Chronic Essential hypertension (18 sources) Hypertensive disorder; Translations: [Essential (primary) hypertension] Onset: 3 07-21-2022 Chronic Headache; including migraine (12 sources) Headache; Translations: [Headache] Onset: 3 11-24-2022 Episodic Hemorrhoids (20 sources) Hemorrhoids; Translations: [Unspecified hemorrhoids] Onset: 3 03-17-2022 Episodic Immunizations and screening for infectious disease (10 sources) Patient encounter status; Translations: [Encounter for immunization] Onset: Episodic Mood disorders (13 sources) Depressive disorder; Translations: [Depression, unspecified] Onset: 3 Chronic Nausea and vomiting (13 sources) Nausea; Translations: [Nausea] Onset: 3 08-11-2022 Episodic Nutritional deficiencies (20 sources) Vitamin D deficiency; Translations: [Vitamin D deficiency, unspecified] Onset: 3 02-04-2022 Chronic Osteoarthritis (20 sources) Osteoarthritis of right hip joint; Translations: [Secondary osteoarthritis] Onset: 2 04-01-2022 Chronic Osteoporosis (20 sources) Osteoporosis; Translations: [Primary osteoporosis] Onset: 3 02-02-2022 Chronic Other acquired deformities (1 source) Equinus contracture of the ankle; Translations: [Contracture, unspecified ankle] Chronic Other acquired deformities (1 source) Thoracogenic scoliosis, thoracolumbar region; Translations: [Thoracogenic scoliosis of thoracolumbar region] Onset: 2 Chronic Other aftercare (1 source) Long-term current use of opiate analgesic drug; Translations: [termination clerk (current) use of opiate analgesic] Episodic Other aftercare (1 source) termination clerk (current) use of opiate analgesic; Translations: [termination clerk (current) use of opiate analgesic] Onset: 2 Episodic Other and unspecified benign neoplasm (12 sources) Enchondroma of bone; Translations: [Benign neoplasm of bone and articular cartilage, unspecified] Onset: 3 11-24-2022 Episodic Other bone disease and musculoskeletal deformities (9 sources) Lesion of right thigh bone 02-27-2022 Episodic Other circulatory disease (1 source) Elevated blood-pressure reading without diagnosis of hypertension; Translations: [Elevated blood-pressure reading, without diagnosis of hypertension] Episodic Other congenital anomalies (12 sources) Osteopetrosis; Translations: [Osteopetrosis] Onset: 3 11-24-2022 Chronic Other connective tissue disease (1 source) Pain of right calf; Translations: [Pain in right lower leg] Episodic Other connective tissue disease (20 sources) Disorder of lower extremity; Translations: [Disorder of lower extremity] Onset: 3 11-26-2021 Episodic Other connective tissue disease (20 sources) Medial epicondylitis; Translations: [Medial epicondylitis, unspecified elbow] Onset: 3 11-26-2021 Episodic Other connective tissue disease (1 source) Pain in left arm; Translations: [Pain in left arm] Episodic Other connective tissue disease (1 source) Bursitis of right hip; Translations: [Other bursitis of hip, right hip] Episodic Other connective tissue disease (13 sources) Iliotibial band friction syndrome of right knee; Translations: [Iliotibial band syndrome, right leg] Onset: 3 Episodic Other eye disorders (9 sources) Disorder of left eye; Translations: [Other specified disorders of eye and adnexa] Onset: 3 01-06-2023 Episodic Other gastrointestinal disorders (12 sources) Irritable bowel syndrome; Translations: [Irritable bowel syndrome without diarrhea] Onset: 3 11-24-2022 Chronic Other gastrointestinal disorders (20 sources) Constipation; Translations: [Constipation, unspecified] Onset: 3 11-26-2021 Episodic Other inflammatory condition of skin (1 source) Itching ; Translations: [Pruritus, unspecified] Episodic Other nervous system disorders (20 sources) Chronic pain syndrome; Translations: [Chronic pain syndrome] Onset: 2 Chronic Other nervous system disorders (3 sources) Other chronic pain; Translations: [Other chronic pain] Onset: 2 Chronic Other nervous system disorders (20 sources) Carpal tunnel syndrome; Translations: [Carpal tunnel syndrome, unspecified upper limb] Onset: 3 11-26-2021 Chronic Other nervous system disorders (1 source) Chronic pain; Translations: [Other chronic pain] Onset: 3 Chronic Other nervous system disorders (12 sources) Neuropathy; Translations: [Polyneuropathy, unspecified] Onset: 3 11-24-2022 Chronic Other nervous system disorders (1 source) Chronic pain syndrome; Translations: [Chronic pain syndrome] Onset: 3 Chronic Other nervous system disorders (1 source) H/O: BUYER TOBACCO HEAD disorder; Translations: [Personal history of other diseases of the nervous system and sense organs] Episodic Other non-traumatic joint disorders (5 sources) Hip pain 02-04-2022 Episodic Other screening for suspected conditions (not mental disorders or infectious disease) (3 sources) Cancer cervix screening status; Translations: [Encounter for screening for malignant neoplasm of cervix] Onset: 3 Episodic Other skin disorders (17 sources) Linear scleroderma; 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] Onset: 3 11-24-2022 Chronic Other skin disorders (1 source) Linear scleroderma; 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] Onset: 3 Chronic Other skin disorders (2 sources) Foot callus; Translations: [Corns and callosities] Episodic Other skin disorders (13 sources) Mass of soft tissue 12-09-2021 Episodic Otitis media and related conditions (1 source) Infection of ear; Translations: [Otitis media, unspecified, unspecified ear] Episodic Residual codes; unclassified (20 sources) Insomnia; Translations: [Insomnia, unspecified] Onset: 3 Episodic Residual codes; unclassified (13 sources) Chronic pain 11-26-2021 Episodic Residual codes; unclassified (13 sources) Postmenopausal state 11-26-2021 Episodic Residual codes; unclassified (1 source) Tobacco user; Translations: [Tobacco use] Onset: 3 Episodic Residual codes; unclassified (12 sources) Body mass index 20-24 - normal; Translations: [Body mass index (BMI) of 20 to 24] Onset: 3 11-24-2022 Episodic Residual codes; unclassified (2 sources) Insomnia, unspecified; Translations: [Insomnia, unspecified] Onset: 3 Episodic Skin and subcutaneous tissue infections (12 sources) Cellulitis of lower leg; Translations: [Cellulitis of right lower limb] Onset: 3 Episodic Spondylosis; intervertebral disc disorders; other back problems (20 sources) Lumbar spondylosis; Translations: [Spondylosis without myelopathy or radiculopathy, lumbar region] Onset: 2 Chronic Spondylosis; intervertebral disc disorders; other back problems (20 sources) Lumbar radiculopathy; Translations: [Neck pain] Onset: 3 02-25-2022 Episodic Substance-related disorders (1 source) Continuous opioid dependence; Translations: [Opioid use, unspecified, uncomplicated] 11-18-2022 Episodic Unclassified (13 sources) Vaccination needed 11-26-2021 Unclassified (11 sources) Body mass index 20-24 - normal 01-13-2022 Unclassified (20 sources) Patient encounter status 01-13-2022 Past or Other Problems Problem Classification Problem Date Documented Date Episodic/Chronic Fracture of upper limb (12 sources) Closed fracture of clavicle; Translations: [Fracture of unspecified part of unspecified clavicle, initial encounter for closed fracture] Onset: 02-25-2022 11-24-2022 Episodic Nutritional deficiencies (20 sources) Cobalamin deficiency; Translations: [Deficiency of other specified B group vitamins] Onset: 08-12-2021 Episodic Other acquired deformities (20 sources) Acquired deformity of left upper arm; Translations: [Unspecified acquired deformity of left upper arm] Onset: 08-12-2021 Episodic Other acquired deformities (20 sources) Acquired deformity of left lower leg; Translations: [Unspecified acquired deformity of left lower leg] Onset: 08-12-2021 Episodic Other connective tissue disease (17 sources) H/O: musculoskeletal disease; Translations: [Personal history of other diseases of the musculoskeletal system and connective tissue] Onset: 08-12-2021 Episodic Other connective tissue disease (12 sources) Bilateral chronic pain of upper limbs; Translations: [Pain in right arm] Onset: 02-25-2022 11-24-2022 Episodic Other connective tissue disease (12 sources) Bursitis of shoulder; Translations: [Bursitis of unspecified shoulder] Onset: 02-25-2022 11-24-2022 Episodic Other connective tissue disease (12 sources) Disorder of rotator cuff; Translations: [Unspecified disorder of synovium and tendon, unspecified shoulder] Onset: 02-25-2022 11-24-2022 Episodic Other non-traumatic joint disorders (12 sources) Pain in right hip joint; Translations: [Pain in right hip] Onset: 01-30-2022 11-24-2022 Episodic Other non-traumatic joint disorders (2 sources) Pain in left shoulder; Translations: [Pain in joint, shoulder region] Onset: 02-25-2022 02-03-2023 Episodic Other nutritional; endocrine; and metabolic disorders (14 sources) H/O: raised blood lipids; Translations: [Personal history of other endocrine, nutritional and metabolic disease] Onset: 08-12-2021 Episodic Residual codes; unclassified (12 sources) Past history of procedure; Translations: [Other specified postprocedural states] Onset: 02-24-2022 Episodic Systemic lupus erythematosus and connective tissue disorders (14 sources) Systemic sclerosis; Translations: [Systemic sclerosis, unspecified] Onset: 04-29-2022 Resolved: 12-07-2022 Chronic Results Test Name Value Interpretation Reference Range Facil ity Vital Signs Date Time Vital Sign Value Performing Clinician Facility 02-03-2023 15:42-0500 Diastolic blood pressure 83 mm[Hg] Britta Trinidad APRN - TAX INTERN Work Phone: [facility] 12-20-2023 15:42-0500 Systolic blood pressure 150 mm[Hg] Britta Abilioenthal AUTO CLUTCH SPECIALIST - TAX INTERN Work Phone: [facility] 02-03-2023 15:07-0500 Body mass index (BMI) [Ratio] 24.11 kg/m2 Britta Bridenthal AUTO CLUTCH SPECIALIST - TAX INTERN Work Phone: [facility] 02-03-2023 15:07-0500 Body temperature 98.6 [degF] Britta Bridenthal AUTO CLUTCH SPECIALIST - TAX INTERN Work Phone: [facility] 02-03-2023 15:07-0500 Body weight 45.36 kg Britta Bridenthal AUTO CLUTCH SPECIALIST - TAX INTERN Work Phone: [facility] 02-03-2023 15:07-0500 Heart rate 89 /min Britta Bridenthal AUTO CLUTCH SPECIALIST - TAX INTERN Work Phone: [facility] 02-03-2023 15:07-0500 Respiratory rate 18 /min Britta Bridenthal AUTO CLUTCH SPECIALIST - TAX INTERN Work Phone: [facility] 02-03-2023 15:07-0500 SaO2% (BldA) [Mass fraction] 98 % Britta Bridenthal AUTO CLUTCH SPECIALIST - TAX INTERN Work Phone: [facility] 01-06-2023 15:02-0500 Body mass index (BMI) [Ratio] 23.15 kg/m2 Britta Bridenthal AUTO CLUTCH SPECIALIST - TAX INTERN Work Phone: [facility] 01-06-2023 15:02-0500 Body temperature 98.6 [degF] Britta Bridenthal AUTO CLUTCH SPECIALIST - TAX INTERN Work Phone: [facility] 01-06-2023 15:02-0500 Body weight 43.55 kg Britta Bridenthal AUTO CLUTCH SPECIALIST - TAX INTERN Work Phone: [facility] 01-06-2023 15:02-0500 Diastolic blood pressure 82 mm[Hg] Britta Bridenthal AUTO CLUTCH SPECIALIST - TAX INTERN Work Phone: [facility] 01-06-2023 15:02-0500 Heart rate 92 /min Britta Bridenthal AUTO CLUTCH SPECIALIST - TAX INTERN Work Phone: [facility] 01-06-2023 15:02-0500 Respiratory rate 20 /min Britta Bridenthal AUTO CLUTCH SPECIALIST - TAX INTERN Work Phone: [facility] 01-06-2023 15:02-0500 SaO2% (BldA) [Mass fraction] 98 % Britta Bridenthal AUTO CLUTCH SPECIALIST - TAX INTERN Work Phone: [facility] 01-06-2023 15:02-0500 Systolic blood pressure 176 mm[Hg] Britta Bridenthal AUTO CLUTCH SPECIALIST - TAX INTERN Work Phone: [facility] 11-24-2022 09:53-0400 Diastolic blood pressure 93 mm[Hg] Britta Bridenthal AUTO CLUTCH SPECIALIST - TAX INTERN Work Phone: [facility] 11-24-2022 09:53-0400 Heart rate 57 /min Britta Bridenthal AUTO CLUTCH SPECIALIST - TAX INTERN Work Phone: [facility] 11-24-2022 09:53-0400 Systolic blood pressure 166 mm[Hg] Britta Bridenthal AUTO CLUTCH SPECIALIST - TAX INTERN Work Phone: [facility] 11-24-2022 08:43-0400 Body height 137.2 cm Britta Bridenthal AUTO CLUTCH SPECIALIST - TAX INTERN Work Phone: [facility] 11-24-2022 08:43-0400 Body mass index (BMI) [Ratio] 23.48 kg/m2 Britta Bridenthal AUTO CLUTCH SPECIALIST - TAX INTERN Work Phone: [facility] 11-24-2022 08:43-0400 Body temperature 98.4 [degF] Britta Bridenthal AUTO CLUTCH SPECIALIST - TAX INTERN Work Phone: [facility] 11-24-2022 08:43-0400 Body weight 44.18 kg Britta Bridenthal AUTO CLUTCH SPECIALIST - TAX INTERN Work Phone: [facility] 11-24-2022 08:43-0400 Respiratory rate 20 /min Britta Bridenthal AUTO CLUTCH SPECIALIST - TAX INTERN Work Phone: [facility] 11-24-2022 08:43-0400 SaO2% (BldA) [Mass fraction] 98 % Britta Bridenthal AUTO CLUTCH SPECIALIST - TAX INTERN Work Phone: [facility] 11-18-2022 15:04-0400 Body weight 45 kg Sabrina Tineo MD Work Phone: [facility] 11-18-2022 15:04-0400 Diastolic blood pressure 99 mm[Hg] Sabrina Tineo MD Work Phone: [facility] 11-18-2022 15:04-0400 Heart rate 108 /min Sabrina Tineo MD Work Phone: [facility] 11-18-2022 15:04-0400 Systolic blood pressure 186 mm[Hg] Sabrina Tineo MD Work Phone: [facility] 05-13-2022 21:54-0400 Body height 137.[address] DAYTON BRIONES MD [facility] 05-13-2022 21:54-0400 Body temperature 98.24 [degF] DR DAYTON BRIONES MD [facility] 05-13-2022 21:54-0400 Body weight 44.[address] DAYTON BRIONES MD [facility] 05-13-2022 21:54-0400 Diastolic Blood Pressure Non-Invasive [address] DAYTON BRIONES MD [facility] 05-13-2022 21:54-0400 Heart rate 75 /min DR DAYTON BRIONES MD [facility] 05-13-2022 21:54-0400 Respiratory rate 20 /min DR DAYTON BRIONES MD [facility] 05-13-2022 21:54-0400 Systolic Blood Pressure Non-Invasive [address] DAYTON BRIONES MD [facility] 05-07-2022 08:51-0400 Heart rate 84 /min DR ALEXIS JAMES MD [facility] 05-07-2022 08:51-0400 Respiratory rate 20 /min DR ALEXIS JAMES MD [address] [place] [address] 05-07-2022 07:39-0400 Diastolic Blood Pressure Non-Invasive [address] ALEXSI JAMES MD [address] [place] [address] 05-07-2022 07:39-0400 Systolic Blood Pressure Non-Invasive [address] ALEXIS JAMES MD [address] [place] [address] 05-07-2022 07:22-0400 Body temperature 98.06 [degF] DR ALEXIS JAMES MD [address] [place] [address] 05-07-2022 07:22-0400 Heart rate 84 /min DR ALEXIS JAMES MD [address] [place] [address] 05-07-2022 07:22-0400 Reason For Taking VItal Signs DR ALEXIS JAMES MD [address] [place] [address] 05-07-2022 07:22-0400 Respiratory rate 20 /min DR ALEXIS JAMES MD [address] [place] [address] 05-07-2022 00:59-0400 Body temperature 98.6 [degF] DR ALEXIS JAMES MD [address] [place] [address] 05-07-2022 00:59-0400 Diastolic Blood Pressure Non-Invasive [address] ALEXIS JAMES MD [address] [place] [address] 05-07-2022 00:59-0400 Heart rate 95 /min DR ALEXIS JAMES MD [address] [place] [address] 05-07-2022 00:59-0400 Respiratory rate 20 /min DR ALEXIS JAMES MD [address] [place] [address] 05-07-2022 00:59-0400 Systolic Blood Pressure Non-Invasive [address] ALEXIS JAMES MD [address] [place] [address] 05-06-2022 19:47-0400 Heart rate 90 /min DR ALEXIS JAMES MD [address] [place] [address] 05-06-2022 19:47-0400 Reason For Taking VItal Signs DR ALEXIS JAMES MD [address] [place] [address] 05-06-2022 16:42-0400 Body temperature 98.06 [degF] DR ALEXIS JAMES MD [address] [place] [address] 05-06-2022 16:42-0400 Diastolic Blood Pressure Non-Invasive [address] ALEXIS JAMES MD [address] [place] [address] 05-06-2022 16:42-0400 Heart rate 93 /min DR ALEXIS JAMES MD [address] [place] [address] 05-06-2022 16:42-0400 Reason For Taking VItal Signs DR ALEXIS JAMES MD [address] [place] [address] 05-06-2022 16:42-0400 Systolic Blood Pressure Non-Invasive [address] ALEXIS JAMES MD [address] [place] [address] 05-06-2022 16:10-0400 Heart rate 92 /min DR ALEXIS JAMES MD [address] [place] [address] 05-06-2022 16:00-0400 Heart rate 87 /min DR ALEXIS JAMES MD [address] [place] [address] 05-06-2022 06:34-0400 Heart rate 86 /min DR ALEXIS JAMES MD [address] [place] [address] 05-05-2022 20:53-0400 Heart rate 102 /min DR ALEXIS JAMES MD [address] [place] [address] 05-05-2022 14:42-[address] ALEXIS JAMES MD [address] [place] [address] 05-05-2022 11:15-04[address] Blood Pressure Cuff Size DR ALEXIS JAMES MD [address] [place] [address] 05-05-2022 11:15-[address] ALEXIS JAMES MD [address] [place] [address] 05-05-2022 11:15-[address] ALEXIS JAMES MD [address] [place] [address] 05-05-2022 11:15-0400 Mean blood pressure 91 mm[Hg] DR ALEXIS JAMES MD [address] [place] [address] 05-04-2022 10:30-[address] Cuff Size DR ALEXIS JAMES MD [address] [place] [address] 05-04-2022 10:30-[address] ALEXIS JAMES MD [address] [place] [address] 05-04-2022 10:30-[address] ALEXIS JAMES MD [address] [place] [address] 05-04-2022 07:48-[address] Cuff Size DR ALEXIS JAMES MD [address] [place] [address] 05-04-2022 07:48-[address] ALEXIS JAMES MD [address] [place] [address] 05-02-2022 03:41-0400 Body height 137.[address] ALEXIS JAMES MD [address] [place] [address] 05-02-2022 03:41-0400 Body weight 44.[address] ALEXIS JAMES MD [address] [place] [address] 05-02-2022 03:41-0400 Body weight 23.8 kg/m2 DR ALEXIS JAMES MD [address] [place] [address] 05-02-2022 02:12-0400 Body temperature 97.88 [degF] YOHANNES BOWIE [employer] CLUTCH SPECIALIST-TAX INTERN [address] [place] [address] 05-02-2022 02:12-0400 Diastolic Blood Pressure Non-Invasive 86 1 YOHANNES KAPPER AUTO CLUTCH SPECIALIST-TAX INTERN [facility] 05-02-2022 02:12-0400 Heart rate 76 /min YOHANNES ABIDAER [employer]UT[employer] SPECIALIST-TAX INTERN [facility] 05-02-2022 02:12-0400 Respiratory rate 18 /min YOHANNES TAIER [employer]UT[employer] SPECIALIST-TAX INTERN [facility] 05-02-2022 02:12-0400 Systolic Blood Pressure Non-Invasive 141 1 YOHANNES TAIER [employer]UTCH SPECIALIST-TAX INTERN [facility] 05-02-2022 01:00-0400 Body temperature 97.88 [degF] YOHANNES KAPPER AUT[employer] CLUTCH SPECIALIST-TAX INTERN [facility] 05-02-2022 01:00-0400 Diastolic Blood Pressure Non-Invasive 86 1 YOHANNES TAIER AUT[employer] CLUTCH SPECIALIST-TAX INTERN [facility] 05-02-2022 01:00-0400 Heart rate 76 /min YOHANNES ABIDAER AUT[employer] CLUTCH SPECIALIST-TAX INTERN [facility] 05-02-2022 01:00-0400 Systolic Blood Pressure Non-Invasive 141 1 YOHANNES TAIER AUT[employer]UTCH SPECIALIST-TAX INTERN [facility] 05-01-2022 19:54-0400 Body temperature 98.06 [degF] YOHANNES KAPPER AUTO CLUTCH SPECIALIST-TAX INTERN [facility] 05-01-2022 19:54-0400 Diastolic Blood Pressure Non-Invasive 85 1 YOHANNES TAIER [employer]UTCH SPECIALIST-TAX INTERN [facility] 05-01-2022 19:54-0400 Heart rate 92 /min YOHANNES KAPPER AUT[employer] CLUTCH SPECIALIST-TAX INTERN [facility] 03-17-2023 19:54-0400 Reason For Taking VItal Signs YOHANNES TAIER AUTO CLUTCH SPECIALIST-TAX INTERN [facility] 05-01-2022 19:54-0400 Respiratory rate 18 /min YOHANNES ABIDAER AUTO CLUTCH SPECIALIST-TAX INTERN [facility] 05-01-2022 19:54-0400 Systolic Blood Pressure Non-Invasive 150 1 YOHANNES ABIDAER AUTO CLUTCH SPECIALIST-TAX INTERN [facility] 05-01-2022 15:15-0400 Heart rate 88 /min YOHANNES KAPPER AUTO CLUTCH SPECIALIST-TAX INTERN [facility] 05-01-2022 11:55-0400 Heart rate 84 /min YOHANNES KAPPER AUTO CLUTCH SPECIALIST-TAX INTERN [facility] 05-01-2022 03:15-0400 Heart rate 86 /min YOHANNES ABIDAER AUTO CLUTCH SPECIALIST-TAX INTERN [facility] 04-30-2022 03:36-0400 Body weight 46.6 kg YOHANNES ABIDAER AUTO CLUTCH SPECIALIST-TAX INTERN [facility] 04-29-2022 23:17-0400 Blood Pressure Location YOHANNES KAPPER AUTO CLUTCH SPECIALIST-TAX INTERN [facility] 04-29-2022 23:17-0400 Blood Pressure Method YOHANNES KAPPER AUTO CLUTCH SPECIALIST-TAX INTERN [facility] 04-29-2022 20:36-0400 Body height 137.2 cm YOHANNES KAPPER AUTO CLUTCH SPECIALIST-TAX INTERN [facility] 04-29-2022 20:36-0400 Body weight 44.5 kg YOHANNES KAPPER AUTO CLUTCH SPECIALIST-TAX INTERN [facility] 04-29-2022 20:36-0400 Body weight 23.64 kg/m2 YOHANNES KAPPER AUTO CLUTCH SPECIALIST-TAX INTERN [facility] 04-29-2022 12:59-0400 Body weight 44 kg YOHANNES BOWIE AUTO CLUTCH SPECIALIST-TAX INTERN [facility] 04-28-2022 18:35-0400 Body height 137.[address] ALLEN GREER MD [facility] 04-28-2022 18:35-0400 Body temperature 98.96 [degF] DR ALLEN GREER MD [facility] 04-28-2022 18:35-0400 Body weight [address] ALLEN GREER MD [facility] 04-28-2022 18:35-0400 Diastolic Blood Pressure Non-Invasive [address] ALLEN GREER MD [facility] 04-28-2022 18:35-0400 Heart rate 97 /min DR ALLEN GREER MD [facility] 04-28-2022 18:35-0400 Respiratory rate 24 /min DR ALLEN GREER MD [facility] 04-28-2022 18:35-0400 Systolic Blood Pressure Non-Invasive [address] ALLEN GREER MD [facility] 11-21-2021 08:53-0400 Body weight 46.27 kg Tea Luongs AUTO CLUTCH SPECIALIST.BUYER TOBAC[employer] HEAD Work Phone: [facility] 11-21-2021 08:53-0400 Diastolic blood pressure 100 mm[Hg] Tea Ruiz AUTO CLUTCH SPECIALIST.BUYER TOBAC[employer] HEAD Work Phone: [facility] 11-21-2021 08:53-0400 Heart rate 107 /min Tea Ruiz AUTO CLUTCH SPECIALIST.BUYER TOBAC[employer] HEAD Work Phone: [facility] 11-21-2021 08:53-0400 SaO2% (BldA) [Mass fraction] 99 % Tea Ruiz AUTO CLUTCH SPECIALIST.BUYER TOBAC[employer] HEAD Work Phone: [facility] 11-21-2021 08:53-0400 Systolic blood pressure 160 mm[Hg] Tea Ruiz AUTO CLUTCH SPECIALIST.BUYER TOBAC[employer] HEAD Work Phone: [facility] 11-06-2021 09:23-0400 Heart rate 107 /min Marcellus Rosado MD Work Phone: [facility] 11-06-2021 09:23-0400 Respiratory rate 16 /min Marcellus Rosado MD Work Phone: [facility] 11-06-2021 09:23-0400 SaO2% (BldA) [Mass fraction] 98 % Marcellus Rosado MD Work Phone: [facility] 10-27-2021 17:33-0400 Body temperature 98.49 [degF] Ginny Praisler-Wood AUTO CLUTCH SPECIALIST.TAX INTERN Work Phone: [facility] 10-27-2021 17:33-0400 Body weight 47.45 kg Ginny Praisler-Wood AUTO CLUTCH SPECIALIST.TAX INTERN Work Phone: [facility] 10-27-2021 17:33-0400 Diastolic blood pressure 96 mm[Hg] Ginny Praisler-Wood AUTO CLUTCH SPECIALIST.TAX INTERN Work Phone: [facility] 10-27-2021 17:33-0400 Heart rate 92 /min Ginny Praisler-Wood AUTO CLUTCH SPECIALIST.TAX INTERN Work Phone: [facility] 10-27-2021 17:33-0400 Respiratory rate 18 /min Ginny Praisler-Wood AUTO CLUTCH SPECIALIST.TAX INTERN Work Phone: [facility] 10-27-2021 17:33-0400 SaO2% (BldA) [Mass fraction] 96 % Ginny Praisler-Wood AUTO CLUTCH SPECIALIST.TAX INTERN Work Phone: [facility] 10-27-2021 17:33-0400 Systolic blood pressure 150 mm[Hg] Ginny Praisler-Wood AUTO CLUTCH SPECIALIST.TAX INTERN Work Phone: [facility] 09-16-2021 15:33-0400 Body temperature 98.1 [degF] Gregorio Pendlebury AUTO CLUTCH SPECIALIST.TAX INTERN Work Phone: [facility] 09-16-2021 15:33-0400 Body weight 49.35 kg Gregorio Pendlebury AUTO CLUTCH SPECIALIST.TAX INTERN Work Phone: [facility] 09-16-2021 15:33-0400 Diastolic blood pressure 78 mm[Hg] Gregorio Pendlebury AUTO CLUTCH SPECIALIST.TAX INTERN Work Phone: [facility] 09-16-2021 15:33-0400 Heart rate 100 /min Gregorio Pendlebury AUTO CLUTCH SPECIALIST.TAX INTERN Work Phone: [facility] 09-16-2021 15:33-0400 Respiratory rate 16 /min Gregorio Pendlebury AUTO CLUTCH SPECIALIST.TAX INTERN Work Phone: [facility] 09-16-2021 15:33-0400 SaO2% (BldA) [Mass fraction] 97 % Gregorio Gibsonbury AUTO CLUTCH SPECIALIST.TAX INTERN Work Phone: [facility] 09-16-2021 15:33-0400 Systolic blood pressure 134 mm[Hg] Gregorio Pendlebury AUTO CLUTCH SPECIALIST.TAX INTERN Work Phone: [facility] 08-12-2021 14:50-0400 Body height 142.2 cm Tea Ruiz AUTO CLUTCH SPECIALIST.BUYER TOBAC[employer] HEAD Work Phone: [facility] 08-12-2021 14:50-0400 Body weight 48.53 kg Tea Ruiz AUTO CLUTCH SPECIALIST.BUYER TOBACCO HEAD Work Phone: [facility] 08-12-2021 14:50-0400 Diastolic blood pressure 88 mm[Hg] Tea Ruiz AUTO CLUTCH SPECIALIST.BUYER TOBACCO HEAD Work Phone: [facility] 08-12-2021 14:50-0400 Heart rate 84 /min Tea Ruiz AUTO CLUTCH SPECIALIST.BUYER TOBAC[employer] HEAD Work Phone: [facility] 08-12-2021 14:50-0400 Respiratory rate 16 /min Tea Ruiz AUTO CLUTCH SPECIALIST.BUYER TOBACCO HEAD Work Phone: [facility] 08-12-2021 14:50-0400 Systolic blood pressure 152 mm[Hg] Tea Ruiz AUTO CLUTCH SPECIALIST.BUYER TOBACCO HEAD Work Phone: [facility] Encounters Encounter Date Encounter Type Care Provider Facility Start: 02-04-2023 Telephone encounter Historical Provider Work Phone: [facility] Procedures Date Procedure Procedure Detail Performing Clinician Start: 02-03-2023 Drug tst prsmv read instrmnt asstd dir opt obs Britta Trinidad AUT[employer] CLUTCH SPECIALIST - TAX INTERN Work Phone: Start: 01-06-2023 Follow-up visit Follow-up BRITTA TRINIDAD Start: 04-20-2022 Injection of steroid into hip joint SHRAVAN LUCAS MD Plan of Treatment Date Care Activity Detail Author Start: 2032 RSV Immunization age d 60 or older (1 - 1-dose 60+ series) RSV Immunization aged 60 or older (1 - 1-dose 60+ series) [facility] Start: 01-29-2027 Lipid panel Lipid Panel [facility] Start: 10-07-2026 Lipid 1996 panel - S epifanio or Plasma Lipid Screening [facility] Start: 10-07-2026 LIPID SCREEN LIPID SCREEN [facility] Start: 10-07-2024 DIABETES SCREEN DIABETES SCREEN [facility] Start: 10-07-2024 Diabetes Screening Diabetes Screenin g [facility] Start: 02-04-2024 COVID-19 Vaccine (#1) COVID-19 Vacci ne (#1) [facility] Immunizations Immunization Date Immunization Notes Care Provider Fa cili 12-07-2022 Seasonal, quadrivale nt, recombinant, injectable influenza vaccine, preservative free Juancho Slaughter MD Work Phone: [facility] 12-30-2021 Pneumococcal conjuga te PCV20, polysaccharide [id number] conjugate, adjuvant, PF; Translations: [Prevnar 20] SOLIS SHELL AUTO CLUTCH SPECIALIST-TAX INTERN [facility] 11-24-2021 influenza, injectabl e, quadrivalent, contains preservative; Translations: [Fluarix PF Quadrivalent ] WILLARD MADDIE AUTO CLUTCH SPECIALIST-TAX INTERN [facility] 11-24-2021 influenza, injectabl e, quadrivalent, preservative free Britta Bridenthal AUTO CLUTCH SPECIALIST - TAX INTERN Work Phone: [facility] 11-24-2021 influenza virus vaccine, unspecified formulation Sabrina Tineo MD Work Phone: [facility] 10-22-2016 influenza virus vaccine, unspecified formulation WILLARD MADDIE AUTO CLUTCH SPECIALIST-TAX INTERN [facility] 10-22-2016 influenza, injectabl e, quadrivalent, preservative free Britta Bridenthal AUTO CLUTCH SPECIALIST - TAX INTERN Work Phone: [facility] Payers Date Payer Category Payer Medicare [id number] 2021 Medicaid [id number] 2021 Medicare UHC AARP MEDICAR E [facility] AAR MEDICARE O [id number] 2021-Present [phone] [address] [address] [place] [address] [facility] [id number] 2021 Medicare [id number] 2021 Medicaid [id number] 2021 Medicare MEDICARE [employer] GE GENERIC MEDICARE ADVANTAGE GENERIC [id number] 2021-Present [phone] [address] [address] [place] [address] Indemnity [id number] 2021 Unknown [id number] 1972 Unknown [id number] 2.840.1.449721.3.579.2. 1972 Unknown [id number] 2.840.1.309600.3.579.2. 1972 Unknown [id number] 2.840.1.124478.3.579.2. 1972 Unknown [id number] 2.840.1.493865.3.579.2. 1972 Unknown [id number] 2.840.1.801806.3.579.2. 1972 Unknown [id number] .840.1.092817.3.579.2. 1972 Unknown [id number] 2.840.1.682484.3.579.2. 1972 Unknown [id number] .840.1.031627.3.579.2. 1972 Unknown [id number] 2.840.1.197290.3.579.2. 1972 Unknown [id number] .840.1.679156.3.579.2. 1972 Unknown [id number] 840.1.382847.3.579.2. 1972 Unknown [id number] .840.1.408790.3.579.2. 1972 Unknown [id number] 840.1.966482.3.579.2. 1972 Unknown [id number] .840.1.751311.3.579.2. 1972 Unknown [id number] 2.840.1.182350.3.579.2. 1972 Unknown [id number] .840.1.484278.3.579.2.7 1972 Unknown [id number] 2.16.840.1.128183.3.579.2.627 1972 Unknown [id number] [id number] 1972 Unknown [id number] Social History Date Type Detail Facility Start: 08-12-2021 End: 11-24-2022 Tobacco smoking status NHIS Smokes tobacco daily [facility] Work Phone: History of tobacco use Cigarette Smoker C [facility] Work Phone: Start: 02-03-2010 End: 11-18-2022 Alcohol intake Current non-drinker of alcohol (finding) [facility] Start: 1970 Sex Assigned At Not on file C [facility] Start: 07-26-2021 End: 08-05-2021 Exposure to SARS-CoV-2 (event) Unable to assess [facility] Work Phone: Start: 08-02-2021 End: 11-21-2021 Exposure to SARS-CoV-2 (event) Not sure [facility] Work Phone: Start: 08-12-2021 End: 11-24-2022 Cigarettes smoked current (pack per day) - Reported 0.5 [facility] Start: 08-12-2021 End: 11-24-2022 Tobacco use and exposure Smokeless tobacco non-user [facility] Work Phone: Start: 11-24-2021 Tobacco smoking status Heavy t obacco smoker (finding) [facility] [place] Sex Assigned At Female [facility] Start: 05-12-2022 End: 08-11-2022 Tobacco smoking status Light tobacco smoker (finding) [facility] Start: 11-18-2022 End: 11-24-2022 Tobacco use panel [facility] Adult Depression Screening Assessment 0 [facility] Start: 11-24-2022 End: 02-03-2023 Alcohol intake Ex-drinker (finding) [employer] (I/We) worried chela er (my/our) food would run out before (I/we) got money to buy more. Never true [employer] In the past 12 month s, was there a time when you were not able to pay the mortgage or rent on time? No [employer] Functional Status Date Assessment Result Facility 07-03-2022 Functional Status Objective: Cardiovascular screen: BP: 146/88 (R arm only per patient) HR: 76 BPM O2 sat: 98% Gait: Atalgic with lateral trunk shift L, ambulates with narrow base of support and short shuffling steps. hip ROM and strength: see chart Obsevation: LUE and LE does appear to have significant atrophy, L shoe is built up to increase leg length [facility] 05-13-2022 Functional Status Room check performed [facility] 05-07-2022 Functional Status Room located n ear nursing station, Door open, Bathroom light on, Non-Slip footwear, Room check performed [facility] 05-07-2022 Functional Status [facility] 05-07-2022 Functional Status bilateral knee high [facility] 05-07-2022 Functional Status [facility] 05-07-2022 Functional Status [facility] 05-06-2022 Functional Status Skin Care Prev entative Intervention(s) heel(s)s elevated [facility] 05-06-2022 Functional Status Lunch Percent 50 [facility] 05-06-2022 Functional Status [facility] 05-05-2022 Functional Status [facility] 05-05-2022 Functional Status SCD On/Re-appl ied bilateral knee high [facility] 05-05-2022 Functional Status [facility] 05-05-2022 Functional Status Collaborated w ith OT to gather information regarding PLOF and home set-up (05/05/22) [facility] 05-05-2022 Functional Status [facility] 05-04-2022 Functional Status None [facility] 05-04-2022 Functional Status [facility] 05-04-2022 Functional Status Apartment [facility] 05-04-2022 Functional Status [facility] 05-03-2022 Functional Status [facility] Minimum roxie tance [facility] 05-03-2022 Functional Status [facility] 05-03-2022 Functional Status Assistive Equi pment elevated on pillows [facility] 05-03-2022 Functional Status [facility] 05-03-2022 Functional Status [facility] 05-02-2022 Functional Status [facility] 05-02-2022 Functional Status [facility] 05-02-2022 Functional Status Maintained Ronny Baker [facility] 05-02-2022 Functional Status Ronny Baker [facility] 05-02-2022 Functional Status Ronny Baker [facility] 05-02-2022 Functional Status N/A [facility] 05-02-2022 Functional Status Room check performed [facility] 05-01-2022 [facility] Status Ron[facility] 05-01-2022 Functional Status Ronny Baker [facility] 05-01-2022 Functional Status Ronny Baker [facility] 05-01-2022 Functional Status Breakfast Percent 25 [facility] 05-01-2022 Functional Status Yes Ronny Baker [facility] 04-30-2022 Functional Status Ronny Baker [facility] 04-30-2022 Functional Status SCD On/Re-appl ied bilateral knee high [facility] 04-30-2022 Functional Status Ronny Baker [facility] 04-30-2022 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, order management specialist, 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, Housework, Laundry, Meal preparation, Personal ADL, Shopping [facility] 04-29-2022 Functional Status Sensory Defici ts Blind, left eye [facility] Mental Status Date Assessment Result Facility 05-13-2022 Mental Status Oriented x 4 [facility] 05-07-2022 Mental Status Oriented x 4 [facility] 05-07-2022 Mental Status [facility] 05-06-2022 Mental Status [facility] 05-06-2022 Mental Status [facility] 05-02-2022 Mental Status Orientation Oriented x 4 [facility] 05-01-2022 Mental Status [facility] 05-01-2022 Mental Status [facility] 05-01-2022 Mental Status [facility] Clinical Notes 08-08-2021 to 02-04-2023 Telephone Encounter - Yazmin Rodriguez - 02/04/2023 11:27 AM ESTTelephone Encounter - Yazmin Rodriguez - 02/04/2023 11:27 AM ESTKorin Mack - 02/03/2023 3:00 PM ESTPatient Instructions Note Date & Type Note Facility 02-04-2023 Telephone encounter Note Screening Colonoscopy (surveillance program) Called pt today to schedule colonoscopy Left message to call colorectal office at [phone] [facility] 02-04-2023 Miscellaneous Notes Screening Colonoscopy (surveillance program) Called pt today to schedule colonoscopy Left message to call colorectal office at [phone] documented in this encounter [facility] 02-03-2023 Evaluation + Plan note Associated Problem(s): Insomnia Controlled. Continue Lunesta 3 mg nightly [facility] 02-03-2023 Evaluation + Plan note Associated Problem(s): Hypertension Initial and repeat blood pressure elevated. Increase amlodipine back up to 5 mg daily and continue to monitor blood pressure at home. Please notify office if you have any hypotensive episodes. Or if blood pressure remains above 140/90. [facility] 02-03-2023 Miscellaneous Notes Associated Problem(s): Insomnia Controlled. Continue Lunesta 3 mg nightly Associated Problem(s): Hypertension Initial and repeat blood pressure elevated. Increase amlodipine back up to 5 mg daily and continue to monitor blood pressure at home. Please notify office if you have any hypotensive episodes. Or if blood pressure remains above 140/90. Associated Problem(s): Anxiety Stable. Continue amitriptyline 50 mg nightly, Wellbutrin 150 mg daily Associated Problem(s): Chronic back pain Stable. Continue Percocet 5-325 mg 1 tablet every 8 hours for severe pain. OARRS reviewed and consistent with treatment plan. Patient is to get established with pain management provider. Advised that she must call and schedule with them. We will continue to bridge her medication until she can get established. She understands that if she does not establish with this next pain management provider that I will be taper discontinuing the opioid medication as primary care does not typically manage chronic pain. CS MA in place Associated Problem(s): Chronic pain syndrome Stable. Continue Percocet 5-325 mg 1 tablet every 8 hours for severe pain. OARRS reviewed and consistent with treatment plan. Patient is to get established with pain management provider. Advised that she must call and schedule with them. We will continue to bridge her medication until she can get established. She understands that if she does not establish with this next pain management provider that I will be taper discontinuing the opioid medication as primary care does not typically manage chronic pain. JESSE MA in place documented in this encounter [facility] 02-03-2023 Evaluation + Plan note Associated Problem(s): Anxiety Stable. Continue amitriptyline 50 mg nightly, Wellbutrin 150 mg daily [facility] 02-03-2023 Evaluation + Plan note Associated Problem(s): Chronic back pain Stable. Continue Percocet 5-325 mg 1 tablet every 8 hours for severe pain. OARRS reviewed and consistent with treatment plan. Patient is to get established with pain management provider. Advised that she must call and schedule with them. We will continue to bridge her medication until she can get established. She understands that if she does not establish with this next pain management provider that I will be taper discontinuing the opioid medication as primary care does not typically manage chronic pain. JESSE MA in place [facility] 02-03-2023 Evaluation + Plan note Associated Problem(s): Chronic pain syndrome Stable. Continue Percocet 5-325 mg 1 tablet every 8 hours for severe pain. OARRS reviewed and consistent with treatment plan. Patient is to get established with pain management provider. Advised that she must call and schedule with them. We will continue to bridge her medication until she can get established. She understands that if she does not establish with this next pain management provider that I will be taper discontinuing the opioid medication as primary care does not typically manage chronic pain. JESSE MA in place [facility] 02-03-2023 History of Present illness Narrative Patient was identified by name and Date of . HM Hep b-declined Awv-will scheduled HIV-declined Colon-pend MMR-declined Covid-declined Tdap-declined Pap-ref to obgyn Zoster-declined Lung-pended Dexa-pended Images from the original note were not included. 02/03/2023 Dayna Moncada (: 1970) is a 52 y.o. female , Established patient, here for evaluation of the following chief complaint(s): Follow-up ASSESSMENT/PLAN: 1. Chronic pain syndrome Assessment & Plan: Stable. Continue Percocet 5-325 mg 1 tablet every 8 hours for severe pain. OARRS reviewed and consistent with treatment plan. Patient is to get established with pain management provider. Advised that she must call and schedule with them. We will continue to bridge her medication until she can get established. She understands that if she does not establish with this next pain management provider that I will be taper discontinuing the opioid medication as primary care does not typically manage chronic pain. CS MA in place Orders: - AMB POC DRUG SCREEN 12, LABSOURCE 2. Insomnia, unspecified type Assessment & Plan: Controlled. Continue Lunesta 3 mg nightly 3. Linear scleroderma - oxyCODONE-acetaminophen (Percocet) 5-325 MG tablet; Take 1 tablet by mouth every 8 hours as needed for severe pain (7-10). Do not start before February 05, 2023., Starting 02/05/2023, Until 03/07/2023 at 2359, Normal 4. Chronic midline thoracic back pain Assessment & Plan: Stable. Continue Percocet 5-325 mg 1 tablet every 8 hours for severe pain. OARRS reviewed and consistent with treatment plan. Patient is to get established with pain management provider. Advised that she must call and schedule with them. We will continue to bridge her medication until she can get established. She understands that if she does not establish with this next pain management provider that I will be taper discontinuing the opioid medication as primary care does not typically manage chronic pain. CS MA in place Orders: - oxyCODONE-acetaminophen (Percocet) 5-325 MG tablet; Take 1 tablet by mouth every 8 hours as needed for severe pain (7-10). Do not start before February 05, 2023., Starting Wed02/05/2023, Until 03/07/2023 at 2359, Normal 5. Primary hypertension Assessment & Plan: Initial and repeat blood pressure elevated. Increase amlodipine back up to 5 mg daily and continue to monitor blood pressure at home. Please notify office if you have any hypotensive episodes. Or if blood pressure remains above 140/90. 6. Colon cancer screening - [facility] [place], [place] Gastroenterology Follow up in about 1 month (around 03/06/2023). SUBJECTIVE/OBJECTIVE: [place] - Dayna Moncada (: 1970) is a 52 y.o. female , Established patient, here for the evaluation of the following chief complaint(s): Follow-up Patient presents for follow-up for the pain management. 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 we are bridging her until she is established with a new pain management provider. A referral was made to [facility] pain management. And she is scheduled in April to establish. Reports that her shoulder is doing ok with the steroid injection of the right shoulder last month. States that the steroid injection would not help her left shoulder that is affected by the scleroderma. Last dose of Percocet this morning. Denies any street drug use however does use, Cbd- vapes- getting from [facility]. Does every night. Prior to Admission medications Medication Sig Start Date End Date Taking? Authorizing Provider amitriptyline (Elavil) 50 MG tablet Take 1 tablet (50 mg) by mouth Nightly. 01/04/23 Yes Juancho Slaughter MD atorvastatin (Lipitor) 20 MG tablet Take 1 tablet by mouth Nightly. 08/12/21 Yes Historical Provider, buPROPion XL (Wellbutrin XL) 150 MG 24 hr tablet Take 150 mg by mouth daily. 07/21/22 Yes Historical Provider, cetirizine (ZyrTEC ALLERGY) 10 MG tablet 10 mg. 04/30/22 Yes Historical Provider, choline fenofibrate (Trilipix) [address] capsule Take by mouth. 11/24/21 Yes Historical Provider, cyanocobalamin (Vitamin B-12) 1000 MCG/ML injection Inject 1,000 mcg into the shoulder, thigh, or buttocks every 30 (thirty) days. 08/12/21 Yes Historical Provider, dexlansoprazole (Dexilant) [address] capsule Take 1 capsule by mouth daily. 07/01/22 Yes Historical Provider, eszopiclone (Lunesta) 3 MG tablet Take 1 tablet (3 mg) by mouth Nightly as needed for sleep. Take immediately before bedtime 01/18/23 02/17/23 Yes Juancho Slaughter MD oxyCODONE-acetaminophen (Percocet) 5-325 MG tablet Take 1 tablet by mouth every 8 hours as needed for severe pain (7-10). 01/06/23 02/05/23 Yes Britta Trinidad APRN - [facility] tiZANidine (Zanaflex) 4 MG tablet take 2 tablets by mouth at bedtime if needed 01/18/23 Yes Juancho Slaughter MD amLODIPine (Norvasc) 5 MG tablet 2.5 mg. 07/21/22 01/17/23 Historical Provider, Review of Systems Constitutional: Positive for fatigue. Negative for appetite change, chills and fever. HENT: Negative. Respiratory: Negative. Cardiovascular: Negative. Gastrointestinal: Negative for abdominal pain, constipation, diarrhea, nausea and vomiting. Genitourinary: Negative for difficulty urinating. Musculoskeletal: Positive for arthralgias, back pain and gait problem. Negative for joint swelling. Skin: Negative. Neurological: Negative for dizziness, light-headedness and headaches. Psychiatric/Behavioral: Negative for agitation, decreased concentration and sleep disturbance (sleeping pretty good.). The patient is not nervous/anxious. Vitals: 02/03/23 1507 02/03/23 1542 BP: (!) 154/76 (!) 150/83 Pulse: 89 Resp: 18 Temp: 37 C (98.6 F) TempSrc: Infrared SpO2: 98% Weight: 100 lb (45.4 kg) Physical Exam Constitutional: General: She is not in acute distress. Appearance: She is not ill-appearing. HENT: Head: Normocephalic. Right Ear: Tympanic membrane normal. Left Ear: Tympanic membrane normal. Nose: No congestion or rhinorrhea. Mouth/Throat: Mouth: Mucous membranes are moist. Pharynx: Oropharynx is clear. Comments: A dentulous Eyes: Conjunctiva/sclera: Right eye: Right conjunctiva is not injected. No chemosis, exudate or hemorrhage. Comments: Left eyelid sewn shut Cardiovascular: Rate and Rhythm: Normal rate and regular rhythm. Pulses: Normal pulses. Heart sounds: Normal heart sounds. Pulmonary: Effort: Pulmonary effort is normal. Comments: Decreased breath sounds left lung mariano Abdominal: General: Bowel sounds are normal. Palpations: Abdomen is soft. There is no mass. Tenderness: There is no abdominal tenderness. Musculoskeletal: General: Deformity (Left upper extremity, left torso and left lower extremity deformity, right ankle and foot deformity with atrophy) present. Comments: Mild scoliosis noted Lymphadenopathy: Cervical: No cervical adenopathy. Neurological: Mental Status: She is alert and oriented to person, place, and time. An electronic signature was used to authenticate this note. KATHERINE Escalante CNP 02/03/2023 5:28 PM documented in this encounter [facility] 01-15-2023 Telephone encounter Note Spoke to patient and scheduled [facility] 01-15-2023 Miscellaneous Notes Spoke to patient and scheduled Name of Caller: Dayna Contact Reason for Appointment: New Patient appointment. Patient has a referral with a diagnosis of Chronic pain syndrome, Linear scleroderma, Chronic midline thoracic back pain. Please contact to schedule. Patient states that she does not have good service and to please leave a message. Patient also states that it is okay for the office to get her scheduled and leave the date and time on her voicemail. Office Name: Pain Management documented in this encounter [facility] 01-14-2023 Telephone encounter Note Name of Caller: Dayna Contact Reason for Appointment: New Patient appointment. Patient has a referral with a diagnosis of Chronic pain syndrome, Linear scleroderma, Chronic midline thoracic back pain. Please contact to schedule. Patient states that she does not have good service and to please leave a message. Patient also states that it is okay for the office to get her scheduled and leave the date and time on her voicemail. Office Name: Pain Management [facility] 01-06-2023 Note Reviewed chart. Refi ll appropriate. Rx sent. Oarrs reviewed. Consistent with treatment plan [facility] 01-06-2023 History of Present illness Narrative Received call previous prescription was sent to [facility] and they do not have supply available today. New prescription sent to [facility] in [place]. OARRS reviewed and consistent with treatment plan. documented in this encounter [facility] 01-06-2023 Evaluation + Plan note Associated Problem(s): Irritation of left eye Mild erythema of the inner canthus. No signs or symptoms of infection. No induration. Believe this is just mild irritation from probable friction, recommend warm or cool compress. Follow-up for any worsening symptoms. [facility] 01-06-2023 Miscellaneous Notes Associated Problem(s): Irritation of left eye Mild erythema of the inner canthus. No signs or symptoms of infection. No induration. Believe this is just mild irritation from probable friction, recommend warm or cool compress. Follow-up for any worsening symptoms. Associated Problem(s): Hypertension Initial blood pressure reading elevated. Patient currently has not taken her blood pressure medicine. Reports that she had had hypotensive problem recently and stopped her medication. Patient advised to decrease amlodipine to half tablet daily. Check blood pressure daily x 2 weeks and send readings to office for review. Associated Problem(s): Chronic pain syndrome Stable. Continue Percocet 5-325 mg 1 tablet every 8 hours for severe pain. OARRS reviewed and consistent with treatment plan. Patient is to get established with pain management provider. Advised that she must call and schedule with them. We will continue to bridge her medication until she can get established. She understands that if she does not establish with this next pain management provider that I will be taper discontinuing the opioid medication as primary care does not typically manage chronic pain. JESSE HUDSON in place documented in this encounter [facility] 01-06-2023 Evaluation + Plan note Associated Problem(s): Hypertension Initial blood pressure reading elevated. Patient currently has not taken her blood pressure medicine. Reports that she had had hypotensive problem recently and stopped her medication. Patient advised to decrease amlodipine to half tablet daily. Check blood pressure daily x 2 weeks and send readings to office for review. [facility] 01-06-2023 Evaluation + Plan note Associated Problem(s): Chronic pain syndrome Stable. Continue Percocet 5-325 mg 1 tablet every 8 hours for severe pain. OARRS reviewed and consistent with treatment plan. Patient is to get established with pain management provider. Advised that she must call and schedule with them. We will continue to bridge her medication until she can get established. She understands that if she does not establish with this next pain management provider that I will be taper discontinuing the opioid medication as primary care does not typically manage chronic pain. JESSE MA in place [facility] 01-06-2023 Telephone encounter Note S: Patient spoke with [facility] nurse regarding medication problem B: Onset of symptoms/concern today A: Patient was ordered oxycodone-acetaminophen (Percocet) 5-325 mg tablets, #90, Refills 0. (Sig: Take 1 tablet by mouth every 8 hours as needed for severe pain (7-10). Medication was originally ordered to [facility] earlier today, they will not have the medication until Wednesday. Patient is requesting the medication be sent to [facility] in [place], [place] instead. . The pharmacy closes today at 8 pm. R: Nurse reached out to the on-call provider, Khang PUENTE, a new RX will be sent to [facility]. Nurse notified patient of provider's directives. No further action required. Nurse called [facility] at # , spoke with Serg Aritaocet RX from today was discontinued as they will not have the med on hand, new RX was sent to [facility] by the provider. Reason for Disposition [1] Caller has URGENT medicine question about med that PCP or specialist prescribed AND [2] triager unable to answer question Protocols used: Medication Question [id number] [facility] 01-06-2023 Miscellaneous Notes S: Patient spoke with [facility] nurse regarding medication problem B: Onset of symptoms/concern today A: Patient was ordered oxycodone-acetaminophen (Percocet) 5-325 mg tablets, #90, Refills 0. (Sig: Take 1 tablet by mouth every 8 hours as needed for severe pain (7-10). Medication was originally ordered to [facility] earlier today, they will not have the medication until Wednesday. Patient is requesting the medication be sent to [facility] in [place], [place] instead. . The pharmacy closes today at 8 pm. R: Nurse reached out to the on-call provider, Khang PUENTE, a new RX will be sent to [facility]. Nurse notified patient of provider's directives. No further action required. Nurse called [facility] at # , spoke with pharmacist Laura, Percocet RX from today was discontinued as they will not have the med on hand, new RX was sent to [facility] by the provider. Reason for Disposition [1] Caller has URGENT medicine question about med that PCP or specialist prescribed AND [2] triager unable to answer question Protocols used: Medication Question [id number] documented in this encounter [facility] 01-06-2023 Telephone encounter Note Reviewed chart. Refill appropriate. Rx sent. Oarrs reviewed. Consistent with treatment plan [facility] 01-06-2023 Miscellaneous Notes Reviewed chart. Refill appropriate. Rx sent. Oarrs reviewed. Consistent with treatment plan [facility] 12/07/22 Images from the original note were not included. Medication name: oxyCODONE-acetaminophen (Percocet) 5-325 MG tablet 1 tablet, Every 8 hours PRN 0 ordered Summary: Take 1 tablet by mouth every 8 hours as needed for severe pain (7-10)., Starting 12/07/2022, Until Wed01/06/2023 at 2359, Normal Dose, Route, Frequency: 1 tablet, Oral, Every 8 hours PRN Start: 12/07/2022 End: 01/06/2023 Ord/Sold: 12/07/2022 (O) Report Adh: Taking: Long-term: Pharmacy: [id number] - [place], [place] - [address] [place] [address] Med Dose History Change Patient Sig: Take 1 tablet by mouth every 8 hours as needed for severe pain (7-10). Ordered on: 12/07/2022 Authorized by: BRITTA TRINIDAD Dispense: 90 tablet Prior Authorization: Request PA If this is a controlled substance do you receive this or any other controlled medication from any other doctor or facility: No Date of last office visit: not found Date of next office visit: 01/06/23 Date of last refill: (see medication tab): 12/07/22 Updated/Validated preferred pharmacy: Yes Patient instructed to contact the pharmacy prior to picking up the medication: Yes Pt stating that the pharmacy shorted her 4 pills with the last refill so now she is out. Please advise. documented in this encounter [facility] 01-06-2023 History of Present illness Narrative Patient was identified by name and Date of . Images from the original note were not included. 01/06/2023 Dayna Moncada (: 1970) is a 52 y.o. female , Established patient, here for evaluation of the following chief complaint(s): Follow-up ASSESSMENT/PLAN: 1. Chronic pain syndrome Assessment & Plan: Stable. Continue Percocet 5-325 mg 1 tablet every 8 hours for severe pain. OARRS reviewed and consistent with treatment plan. Patient is to get established with pain management provider. Advised that she must call and schedule with them. We will continue to bridge her medication until she can get established. She understands that if she does not establish with this next pain management provider that I will be taper discontinuing the opioid medication as primary care does not typically manage chronic pain. CS MA in place 2. Irritation of left eye Assessment & Plan: Mild erythema of the inner canthus. No signs or symptoms of infection. No induration. Believe this is just mild irritation from probable friction, recommend warm or cool compress. Follow-up for any worsening symptoms. 3. Primary hypertension Assessment & Plan: Initial blood pressure reading elevated. Patient currently has not taken her blood pressure medicine. Reports that she had had hypotensive problem recently and stopped her medication. Patient advised to decrease amlodipine to half tablet daily. Check blood pressure daily x 2 weeks and send readings to office for review. Follow up in about 1 month (around 02/05/2023). SUBJECTIVE/OBJECTIVE: BRADFORD Moncada (: 1970) is a 52 y.o. female , Established patient, here for the evaluation of the following chief complaint(s): Follow-up Patient presents for follow-up for the pain management. We are bridging her until she is established with a new pain management provider. A referral was made to [facility] pain management. Of note patient only recently saw the [facility] message to her yesterday to reach out to them to schedule. States that she will do so. Since we saw her last she States that she did get a shot from orthopedic in the right shoulder- seems to help. Left shoulder is not going to get any improvement with injections. 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 States that she is having some soreness on the inner canthus of the left eye. 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 Denies any drainage or pain just some mild soreness to the inner canthus the past 2 days. Unchanged. States she has not taken her blood pressure medicine for a few days which is amlodipine 5 mg daily because she was having episodes of hypotension at home and her blood pressure was 90 over 50s. States she stopped checking her blood pressure and has not checked it in a few days now. So she has not taken her blood pressure medicine. Does have the ability to continue to check her blood pressures at home. Denies any headache blurred vision chest pain or shortness of breath. Prior to Admission medications Medication Sig Start Date End Date Taking? Authorizing Provider amitriptyline (Elavil) 50 MG tablet Take 1 tablet (50 mg) by mouth Nightly. 01/04/23 Yes Juancho Slaughter MD amLODIPine (Norvasc) 5 MG tablet 5 mg. 07/21/22 01/17/23 Yes Historical Provider, atorvastatin (Lipitor) 20 MG tablet Take 1 tablet by mouth Nightly. 08/12/21 Yes Historical Provider, buPROPion XL (Wellbutrin XL) 150 MG 24 hr tablet Take 150 mg by mouth daily. 07/21/22 Yes Historical Provider, cetirizine (ZyrTEC ALLERGY) 10 MG tablet 10 mg. 04/30/22 Yes Historical Provider, choline fenofibrate (Trilipix) [address] capsule Take by mouth. 11/24/21 Yes Historical Provider, dexlansoprazole (Dexilant) [address] capsule Take 1 capsule by mouth daily. 07/01/22 Yes Historical Provider, eszopiclone (Lunesta) 3 MG tablet Take 3 mg by mouth Nightly. 10/22/22 Yes Historical Provider, eszopiclone (Lunesta) 3 MG tablet Take 1 tablet (3 mg) by mouth Nightly as needed for sleep. Take immediately before bedtime 12/21/22 01/20/23 Yes BrittaKATHERINE Gresham CNP oxyCODONE-acetaminophen (Percocet) 5-325 MG tablet Take 1 tablet by mouth every 8 hours as needed for severe pain (7-10). 12/07/22 01/06/23 Yes BrittaKATHERINE Gresham CNP tiZANidine (Zanaflex) 4 MG tablet take 2 tablets by mouth at bedtime if needed 10/24/22 Yes Historical Provider, cyanocobalamin (Vitamin B-12) 1000 MCG/ML injection Inject 1,000 mcg into the shoulder, thigh, or buttocks every 30 (thirty) days. 08/12/21 Historical Provider, amitriptyline (Elavil) 50 MG tablet Take 50 mg by mouth Nightly. 10/20/22 01/04/23 Historical Provider, Review of Systems Constitutional: Positive for fatigue. Negative for activity change, appetite change (tolerates only small meals), chills and fever. Eyes: Positive for visual disturbance (left eye blindness). Respiratory: Positive for shortness of breath (at baseline). Negative for cough and chest tightness. Cardiovascular: Negative for chest pain, palpitations and leg swelling. Gastrointestinal: Negative. Negative for abdominal pain. Genitourinary: Negative for difficulty urinating. Neurological: Positive for weakness, numbness and headaches (Occasional). Negative for dizziness and light-headedness. Vitals: 01/06/23 1502 BP: (!) 176/82 Pulse: 92 Resp: 20 Temp: 37 C (98.6 F) TempSrc: Infrared SpO2: 98% Weight: 96 lb (43.5 kg) Physical Exam Constitutional: General: She is not in acute distress. Appearance: She is not ill-appearing. HENT: Head: Normocephalic. Right Ear: Tympanic membrane normal. Left Ear: Tympanic membrane normal. Nose: No congestion or rhinorrhea. Mouth/Throat: Mouth: Mucous membranes are moist. Pharynx: Oropharynx is clear. Comments: A dentulous Eyes: Conjunctiva/sclera: Right eye: Right conjunctiva is not injected. No chemosis, exudate or hemorrhage. Comments: Left eye symptoms. Inner canthus noted to be mildly erythematous, no drainage noted no open wound. Minimal tenderness. Cardiovascular: Rate and Rhythm: Normal rate and regular rhythm. Pulses: Normal pulses. Heart sounds: Normal heart sounds. Pulmonary: Effort: Pulmonary effort is normal. Comments: Decreased breath sounds left lung mariano Abdominal: General: Bowel sounds are normal. Palpations: Abdomen is soft. There is no mass. Tenderness: There is no abdominal tenderness. Musculoskeletal: General: Deformity (Left upper extremity, left torso and left lower extremity deformity, right ankle and foot deformity with atrophy) present. Comments: Mild scoliosis noted Lymphadenopathy: Cervical: No cervical adenopathy. Neurological: Mental Status: She is alert and oriented to person, place, and time. An electronic signature was used to authenticate this note. KATHERINE Escalante CNP 01/06/2023 4:52 PM documented in this encounter [facility] 01-06-2023 Instructions KATHERINE Escalante CNP - 01/06/2023 3:20 PM EST Schedule with pain management. Please check blood pressure daily and send readings into office via mychart or call in results. documented in this encounter [facility] 01-05-2023 Telephone encounter Note [facility] 12/07/22 [facility] 01-05-2023 Telephone encounter Note Images from the original note were not included. Medication name: oxyCODONE-acetaminophen (Percocet) 5-325 MG tablet 1 tablet, Every 8 hours PRN 0 ordered Summary: Take 1 tablet by mouth every 8 hours as needed for severe pain (7-10)., Starting 12/07/2022, Until 01/06/2023 at 2359, Normal Dose, Route, Frequency: 1 tablet, Oral, Every 8 hours PRN Start: 12/07/2022 End: 01/06/2023 Ord/Sold: 12/07/2022 (O) Report Adh: Taking: Long-term: Pharmacy: [id number] Dose History Change Patient Sig: Take 1 tablet by mouth every 8 hours as needed for severe pain (7-10). Ordered on: 12/07/2022 Authorized by: BRITTA TRINIDAD Dispense: 90 tablet Prior Authorization: Request PA If this is a controlled substance do you receive this or any other controlled medication from any other doctor or facility: No Date of last office visit: not found Date of next office visit: 01/06/23 Date of last refill: (see medication tab): 12/07/22 Updated/Validated preferred pharmacy: Yes Patient instructed to contact the pharmacy prior to picking up the medication: Yes Pt stating that the pharmacy shorted her 4 pills with the last refill so now she is out. Please advise. [facility] 01-04-2023 Telephone encounter Note Medication name: amitriptyline (Elavil) Medication dosage: 50 mg (Miligrams Monthly quantity needed: 30 How many day supply requestin days Medication route: oral (PO) Medication administration time(s): daily If taking medication PRN, reason for taking medication: N/A If this is a controlled substance do you receive this or any other controlled medication from any other doctor or facility: N/A Ordering provider: zayda Date of last office visit: 12.07.22 Date of next office visit: 01.06.23 Date of last refill: (see medication tab): 10.20.22 Updated/Validated preferred pharmacy: Yes Patient instructed to contact the pharmacy prior to picking up the medication: Yes [facility] 01-04-2023 Miscellaneous Notes Medication name: amitriptyline (Elavil) Medication dosage: 50 mg (Miligrams Monthly quantity needed: 30 How many day supply requestin days Medication route: oral (PO) Medication administration time(s): daily If taking medication PRN, reason for taking medication: N/A If this is a controlled substance do you receive this or any other controlled medication from any other doctor or facility: N/A Ordering provider: zayda Date of last office visit: 12.07.22 Date of next office visit: 01.06.23 Date of last refill: (see medication tab): 10.20.22 Updated/Validated preferred pharmacy: Yes Patient instructed to contact the pharmacy prior to picking up the medication: Yes documented in this encounter [facility] 12-21-2022 Telephone encounter Note [facility] 11/24/22 [facility] 12-21-2022 Miscellaneous Notes [facility] 11/24/22 Medication name: eszopiclone (Lunesta) Medication dosage: 3 mg (Miligrams Monthly quantity needed: 30 How many day supply requestin days Medication route: oral (PO) Medication administration time(s): bedtime (HS) If taking medication PRN, reason for taking medication: Needed for sleep If this is a controlled substance do you receive this or any other controlled medication from any other doctor or facility: N/A Ordering provider: Britta Trinidad Date of last office visit: 12.07.2022 Date of next office visit: 01.06.2023 Date of last refill: (see medication tab): 11.24.2022 Updated/Validated preferred pharmacy: Yes Patient instructed to contact the pharmacy prior to picking up the medication: Yes documented in this encounter [facility] 12-21-2022 Telephone encounter Note Medication name: eszopiclone (Lunesta) Medication dosage: 3 mg (Miligrams Monthly quantity needed: 30 How many day supply requestin days Medication route: oral (PO) Medication administration time(s): bedtime (HS) If taking medication PRN, reason for taking medication: Needed for sleep If this is a controlled substance do you receive this or any other controlled medication from any other doctor or facility: N/A Ordering provider: Britta Trinidad Date of last office visit: 12.07.2022 Date of next office visit: 01.06.2023 Date of last refill: (see medication tab): 11.24.2022 Updated/Validated preferred pharmacy: Yes Patient instructed to contact the pharmacy prior to picking up the medication: Yes [facility] 12-07-2022 Note Pain management refe rral placed. Will provide Percocet 5-3 25 1 tablet every 8 hours for severe pain until patient can be established with pain management provider. OARRS reviewed and consistent with treatment plan. CSMA obtained for bridging medication until established with pain management. [facility] 12-01-2022 Telephone encounter Note Sabrina Tineo MD [facility] [address] [place] [address] This looks like who she saw on 11/18/2022 [facility] 12-01-2022 Miscellaneous Notes Sabrina Tineo MD [facility] [address] [place] [id number] This looks like who she saw on 11/18/2022 Called patient no answer LVM to call office back. My chart message sent. If patient calls back please give patient message from Vi. Please call patient and let her know that I recommend that she go back to the last design painter that she saw - Dr. Tineo and work with them to come up with a pain management plan, otherwise she may have difficulty being seen by any pain provider. documented in this encounter [facility] 11-30-2022 Telephone encounter Note Called patient no answer LVM to call office back. My chart message sent. If patient calls back please give patient message from Vi. [facility] 11-26-2022 Telephone encounter Note Please call patient and let her know that I recommend that she go back to the last design painter that she saw - Dr. Tineo and work with them to come up with a pain management plan, otherwise she may have difficulty being seen by any pain provider. [facility] 11-24-2022 Note Discussed risks and benefits of continuing Lunesta. JESSE HUDSON obtained. OARRS reviewed and consistent with treatment plan. [facility] 11-24-2022 Evaluation + Plan note Associated Problem(s): Linear scleroderma Obtain records. Consider reaching out to [facility] to see what specialists are available in this area to assist with further management [facility] 11-24-2022 Miscellaneous Notes Associated Problem(s): Linear scleroderma Obtain records. Consider reaching out to [facility] to see what specialists are available in this area to assist with further management Associated Problem(s): Insomnia Discussed risks and benefits of continuing Lunesta. JESSE HUDSON obtained. OARRS reviewed and consistent with treatment plan. Associated Problem(s): Chronic pain syndrome Advised patient that we do not treat chronic pain however I will provide a 7-day prescription of oxycodone acetaminophen 5-3 25 every 8 hours as needed for severe pain to help with her pain while she is establishing with a new pain management provider. Advised that I will not be able to provide any further prescriptions and that she needs to get established with a pain management provider for her chronic pain. documented in this encounter [facility] 11-24-2022 Evaluation + Plan note Associated Problem(s): Insomnia Discussed risks and benefits of continuing Lunesta. JESSE HUDSON obtained. OARRS reviewed and consistent with treatment plan. [facility] 11-24-2022 Evaluation + Plan note Associated Problem(s): Chronic pain syndrome Advised patient that we do not treat chronic pain however I will provide a 7-day prescription of oxycodone acetaminophen 5-3 25 every 8 hours as needed for severe pain to help with her pain while she is establishing with a new pain management provider. Advised that I will not be able to provide any further prescriptions and that she needs to get established with a pain management provider for her chronic pain. [facility] 11-24-2022 History of Present illness Narrative Patient was identified by name and Date of . KATHRIN sent to [facility] in [place] and to Abraham at [place] [facility] Images from the original note were not included. 11/24/2022 Dayna Moncada (: 1970) is a 52 y.o. female , New patient, here for evaluation of the following chief complaint(s): New Patient and Establish Care (/) ASSESSMENT/PLAN: 1. Insomnia, unspecified type Assessment & Plan: Discussed risks and benefits of continuing Lunesta. CS MA obtained. OARRS reviewed and consistent with treatment plan. Orders: - eszopiclone (Lunesta) 3 MG tablet; Take 1 tablet (3 mg) by mouth Nightly as needed for sleep. Take immediately before bedtime, Starting Wed11/24/2022, Until Khushi 12/24/2022 at 2359, Normal 2. Linear scleroderma Assessment & Plan: Obtain records. Consider reaching out to [facility] to see what specialists are available in this area to assist with further management Orders: - oxyCODONE-acetaminophen (Percocet) 5-325 MG tablet; Take 1 tablet by mouth every 8 hours as needed for severe pain (7-10) for up to 7 days., Starting Wed11/24/2022, Until Wed12/01/2022 at 2359, Normal 3. Chronic midline thoracic back pain - oxyCODONE-acetaminophen (Percocet) 5-325 MG tablet; Take 1 tablet by mouth every 8 hours as needed for severe pain (7-10) for up to 7 days., Starting Wed11/24/2022, Until Wed12/01/2022 at 2359, Normal 4. Chronic pain syndrome Assessment & Plan: Advised patient that we do not treat chronic pain however I will provide a 7-day prescription of oxycodone acetaminophen 5-3 25 every 8 hours as needed for severe pain to help with her pain while she is establishing with a new pain management provider. Advised that I will not be able to provide any further prescriptions and that she needs to get established with a pain management provider for her chronic pain. Patient with a very complex medical history. Will obtain records and further review. Consider reaching out to [facility] for resources for adult care for patients with linear scleroderma. Follow up in about 2 weeks (around 12/08/2022) for Recheck. SUBJECTIVE/OBJECTIVE: HPI - Dayna Oakes Amswilburvijay presents as new patient, previous primary care provider [facility], last seen last week- was discharged for argumentative behavior, by previous provider. Specialists/other providers? Yes, describe: pain management- Basali, orthopedic - horace in [place]. Chief complaint(s): New Patient and Establish Care (/) Presents today to establish care. Patient was living in [place] from [id number], grew up in [place]. Moved back to [place] to be near family after her boyfriend of greater than 15 years and she was living alone in [place] and her family wanted her to be closer. Has complex medical history. 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 Was on long-term prednisone during that time and has osteoporosis. Has a lot of complications due to the scleroderma, including chronic pain of both extremities upper and lower. The scleroderma affected her entire left side of the body and her right foot and ankle. 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 Has lost all of her teeth due to the long-term prednisone. Has been established with pain management for a long time in [place] and has been having difficulty continuing her previous pain regimen with providers in [place]. Reports her pain was not being well managed and she was treating herself with CBD and the urine tested positive for THC? And she states that she was discharged from pain management. Has been having increased pain in her right hip and was seeing AN orthopedic, Dr. Casey in [place]. Reports he was doing injections for bursitis of the right hip which have been helpful. Last dosing of narcotics was last Wednesday. Oxycodone-acetaminophen 5-325 every 8 hours, filled 10/13/22. Reports increased pain and nausea since not having any pain medication. Insomnia- lunesta 3 mg nightly for sleep. - reports needed for sleep and has run out. Reports that she has had several hospitalizations in the past year for cellulitis in the left arm. Past Medical History: Diagnosis Date Anxiety Arthritis Chronic back pain Depression Headache Irritable bowel syndrome Linear scleroderma Neuropathy Past Surgical History: Procedure Laterality Date ARM SURGERY (HISTORICAL) Left ARM SURGERY (HISTORICAL) Right carpel tunnel COLONOSCOPY ELBOW SURGERY Right Golfers elbow EYE SURGERY Family History Problem Relation Name Age of Onset Arthritis Mother Diabetes Mother Hyperlipidemia Mother Kidney disease Mother Cirrhosis Father Social History Socioeconomic History Marital status: Single Spouse name: Not on file Number of children: Not on file Years of education: Not on file Highest education level: Not on file Occupational History Comment: [employer] Tobacco Use Smoking status: Every Day Packs/day: 1.00 Years: 35.00 Additional pack years: 0.00 Total pack years: 35.00 Types: Cigarettes Smokeless tobacco: Never Vaping Use Vaping Use: Never used Substance and Sexual Activity Alcohol use: Not Currently Drug use: Not Currently Comment: CBD with THC Sexual activity: Defer Other Topics Concern Not on file Social History Narrative Lives Came back to [place] last July 2021, from [place] since 2010.boyfriend about 7 years ago, (were together 15 yrs). Adopted parents sold where she was living and so she moved back here. Adopted parents live up here and biological family. Linear scleroderma since age 6. 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 Social Determinants of Health Financial Resource Strain: Low Risk (11/24/2022) Overall Financial Resource Strain (CARDIA) Difficulty of Paying Living Expenses: Not hard at all Food Insecurity: No Food Insecurity (11/24/2022) Hunger Vital Sign Worried About Running Out of Food in the Last Year: Never true Ran Out of Food in the Last Year: Never true Transportation Needs: No Transportation Needs (11/24/2022) PRAPARE - Transportation Lack of Transportation (Medical): No Lack of Transportation (Non-Medical): No Physical Activity: Insufficiently Active (11/24/2022) Exercise Vital Sign Days of Exercise per Week: 3 days Minutes of Exercise per Session: 10 min Stress: Not on file Social Connections: Not on file Intimate Partner Violence: Not on file Housing Stability: High Risk (11/24/2022) Housing Stability Vital Sign Unable to Pay for Housing in the Last Year: No Number of Places Lived in the Last Year: 3 Unstable Housing in the Last Year: No Prior to Admission medications Medication Sig Start Date End Date Taking? Authorizing Provider amitriptyline (Elavil) 50 MG tablet Take 50 mg by mouth Nightly. 10/20/22 Yes Historical Provider, amLODIPine (Norvasc) 5 MG tablet 5 mg. 07/21/22 01/17/23 Yes Historical Provider, atorvastatin (Lipitor) 20 MG tablet Take 1 tablet by mouth Nightly. 08/12/21 Yes Historical Provider, cetirizine (ZyrTEC ALLERGY) 10 MG tablet 10 mg. 04/30/22 Yes Historical Provider, choline fenofibrate (Trilipix) [address] capsule Take by mouth. 11/24/21 Yes Historical Provider, dexlansoprazole (Dexilant) [address] capsule Take 1 capsule by mouth daily. 07/01/22 Yes Historical Provider, eszopiclone (Lunesta) 3 MG tablet Take 3 mg by mouth Nightly. 10/22/22 Yes Historical Provider, tiZANidine (Zanaflex) 4 MG tablet take 2 tablets by mouth at bedtime if needed 10/24/22 Yes Historical Provider, buPROPion XL (Wellbutrin XL) 150 MG 24 hr tablet Take 150 mg by mouth daily. 07/21/22 Historical Provider, cholecalciferol (Vitamin D-3) 1.25 MG (21509 UT) capsule Take by mouth 1 (one) time per week. 05/11/22 Historical Provider, choline fenofibrate (Trilipix) [address] capsule 45 mg. 08/12/21 Historical Provider, cyanocobalamin (Vitamin B-12) 1000 MCG/ML injection Inject 1,000 mcg into the shoulder, thigh, or buttocks every 30 (thirty) days. 08/12/21 Historical Provider, escitalopram (Lexapro) 10 MG tablet Take 10 mg by mouth in the morning. 08/12/21 Historical Provider, etodolac XL (Lodine XL) 400 MG 24 hr tablet Take 400 mg by mouth in the morning. 11/21/21 Historical Provider, HYDROcodone-acetaminophen (Xodol) 7.5-300 MG tablet tablet Take by mouth. Historical Provider, hydrOXYzine HCl (Atarax) 25 MG tablet Take 25 mg by mouth every 6 hours as needed. 08/12/21 Historical Provider, Lactobacillus (Acidophilus) capsule TAKE 1 CAPSULE BY MOUTH THREE TIMES DAILY FOR 10 DAYS 05/07/22 Historical Provider, ondansetron ODT (Zofran-ODT) 4 MG disintegrating tablet dissolve 1 tablet ON TONGUE every 8 hours if needed for nausea and vomiting 08/11/22 Historical Provider, Prolia 60 MG/ML solution prefilled syringe 03/17/22 Historical Provider, triamcinolone (Kenalog) 0.025 % cream Apply 1 Application topically in the morning and 1 Application in the evening. 10/27/21 Historical Provider, Review of Systems Constitutional: Positive for fatigue. Negative for activity change, appetite change (tolerates only small meals), chills and fever. Eyes: Positive for visual disturbance (left eye blindness). Respiratory: Positive for shortness of breath (at baseline). Negative for cough and chest tightness. Cardiovascular: Negative for chest pain, palpitations and leg swelling. Gastrointestinal: Negative. Negative for abdominal pain. Genitourinary: Negative for difficulty urinating. Neurological: Positive for weakness, numbness and headaches. Negative for dizziness and light-headedness. Vitals: 11/24/22 0843 11/24/22 0953 BP: (!) 156/89 (!) 166/93 Pulse: 98 57 Resp: 20 Temp: 36.9 C (98.4 F) TempSrc: Infrared SpO2: 98% Weight: 97 lb 6.4 oz (44.2 kg) Height: 4' 6 (1.372 m) Physical Exam Constitutional: General: She is not in acute distress. Appearance: She is not ill-appearing. HENT: Head: Normocephalic. Right Ear: Tympanic membrane normal. Left Ear: Tympanic membrane normal. Nose: No congestion or rhinorrhea. Mouth/Throat: Mouth: Mucous membranes are moist. Pharynx: Oropharynx is clear. Comments: A dentulous Cardiovascular: Rate and Rhythm: Normal rate and regular rhythm. Pulses: Normal pulses. Heart sounds: Normal heart sounds. Pulmonary: Effort: Pulmonary effort is normal. Comments: Decreased breath sounds left lung mariano Abdominal: General: Bowel sounds are normal. Palpations: Abdomen is soft. There is no mass. Tenderness: There is no abdominal tenderness. Musculoskeletal: General: Deformity (Left upper extremity, left torso and left lower extremity deformity, right ankle and foot deformity with atrophy) present. Comments: Mild scoliosis noted Neurological: Mental Status: She is alert and oriented to person, place, and time. An electronic signature was used to authenticate this note. KATHERINE Escalante CNP 11/24/2022 5:31 PM documented in this encounter [facility] 11-24-2022 Instructions KATHERINE Escalante CNP - 11/24/2022 9:00 AM EDT I will provide a 7 day supply of pain medication at previous dose. Recommend using lowest effective dosing. documented in this encounter [facility] 11-18-2022 Note HNO ID: [id number] Author: Sabrina Tineo MD Service: ? Author Type: Physician Type: Progress Notes Filed: 11/18/2022 4:01 PM Note Text: Sabrina Tineo MD Pain Management Pain Management [place] [id number] Dept: [phone] New Patient Chronic Pain Consult Note Date: 11/18/2022 3:06 PM Referring physician: self This consult was requested by Self for my medical opinion. My final recommendations will be communicated to the referring physician by way of the shared medical record for internal providers or by letter via the [employer] for external providers. Nursing Assessment: AMB ROOMING INTAKE FLOWSHEET DATA Risk Screening Do you have concerns about personal safety or safety in the home?: no Pain Pain Level: 9/10 Pain Location: shoulder,arm hip ,leg Description:stabbing, sharp, electrocute Frequency: constant Intervention/Comfort measure: nothing Past Medical History: PAST MEDICAL HISTORY Diagnosis Date Blindness of left eye Breast mass, right 01/23/2010 GERD (gastroesophageal reflux disease) PMH - PAST MEDICAL HISTORY OF Linear Schleraderma Past Surgical History: PAST SURGICAL HISTORY Procedure Laterality Date EXC CYST/ABERRANT BREAST TISSUE OPEN 1/> LESION 01/23/2010 PAST SURGICAL HISTORY OF Left arm Skin graft PAST SURGICAL HISTORY OF Surgery right knee, to stop growth PAST SURGICAL HISTORY OF surgery left eye to keep closed at night. REVISE MEDIAN N/CARPAL TUNNEL SURG Family History: Family History Problem Relation Age of Onset Diabetes Mother adopted No Known Problems Father Breast Cancer Maternal Aunt Social History: Social History Tobacco Use Smoking status: Every Day Packs/day: 0.50 Years: 15.00 Additional pack years: 0.00 Total pack years: 7.50 Types: Cigarettes Smokeless tobacco: Never Vaping Use Vaping Use: Never used Substance Use Topics Alcohol use: No Drug use: No Comment: Marijuana laced brownies at a green party by accident Allergies: Allergies: Duloxetine Other: See Comments Tramadol Other: See Comments Trazodone Other: See Comments Current Outpatient Medications: etodolac (LODINE-XL) 400 mg 24 hr tablet Take 1 tablet by mouth once daily. For pain. Take with food triamcinolone (KENALOG) 0.025 % cream Apply 1 application to affected area twice daily. oxyCODONE-acetaminophen (PERCOCET) 7.5-325 mg tablet Take 1 tablet by mouth every 6 hours as needed for pain for up to 30 days. Do not start before October 11, 2021. DEXILANT 60 mg CpDM 60 mg once daily. oxyCODONE-acetaminophen (PERCOCET) 7.5-325 mg tablet take 1 tablet by mouth every 6 hours if needed for pain for 4 days oxyCODONE-acetaminophen (PERCOCET) 7.5-325 mg tablet Take 1 tablet by mouth every 6 hours as needed for pain for up to 30 days. amitriptyline (ELAVIL) 50 mg tablet Take 1 tablet by mouth daily at bedtime. atorvastatin (LIPITOR) 20 mg tablet Take 1 tablet by mouth daily at bedtime. escitalopram oxalate (LEXAPRO) 10 mg tablet Take 1 tablet by mouth once daily. Fenofibric Acid 45 mg cpDR Take 1 capsule by mouth once daily. tiZANidine (ZANAFLEX) 4 mg tablet Take 1.5 tablets by mouth three times daily. hydrOXYzine HCl (ATARAX) 25 mg tablet Take 1 tablet by mouth four times daily as needed. cyanocobalamin 1,000 mcg/mL Inject 1 mL intramuscularly once every month. Hydrocodone-Acetaminophen 7.5-300 mg ORAL Tab Take by mouth. Review of Systems: GENERAL: Any recent unintentional weight loss? No HEENT: Any frequent or significant headaches, or history of Glaucoma? Yes: headaches CARDIOVASCULAR: Any history of cardiac arrhythmias, NV, prior CVA, or heart failure? No GASTROINTESTINAL: Any history of peptic ulcer disease or GI bleeding, blood in stools NO GENITOURINARY: Any history of incontinence, urinary retention or nephrolithiasis? No MUSCULOSKELETAL: Any joint pain or swelling, back pain or muscle pain? Yes: all of the above NEUROLOGIC: Any recent focal numbness or weakness? Yes: right leg numb and right foot HEMATOLOGIC/LYMPHATIC/IMMUNOLOGI C: Any problems with prolonged bleeding, bruising easily? Yes: bruising easily The remainder of the ROS was negative. 11/18/2022 3:06 PM Nursing Attestation: I have reviewed the nursing documentation, edited the information as necessary, and confirmed the pertinent information with the patient. History of Present Illness: The patient presents with a chief complaint of left arm and leg pain plus right shoulder, right hip and right leg/hip pain. She has a history of left UE and LLE scleroderma. The pain is sharp and electrifying. The pain ranges from 9-10/10. Sanding walking, seating aggravates the pain. She states she moved to [place] from [place]. She was seeing a PM near [place] since 09/2021. She received an injection with Ortho with benefit. She states she has been on percocet 7.5 mg for (more content not included)... [facility] 11-18-2022 Instructions Sabrina Tineo MD - 11/18/2022 3:41 PM EDT Complete x-rays Establish care with Dr. Aldana [phone] documented in this encounter [facility] 11-18-2022 History of Present illness Narrative Images from the original note were not included. Sabrina Tineo MD Pain Management Pain Management [facility] [address] [place] [address] Dept: [phone] New Patient Chronic Pain Consult Note Date: 11/18/2022 3:06 PM Referring physician: self This consult was requested by Self for my medical opinion. My final recommendations will be communicated to the referring physician by way of the shared medical record for internal providers or by letter via the [employer] for external providers. Nursing Assessment: AMB ROOMING INTAKE FLOWSHEET DATA Risk Screening Do you have concerns about personal safety or safety in the home?: no Pain Pain Level: 9/10 Pain Location: shoulder,arm hip ,leg Description:stabbing, sharp, electrocute Frequency: constant Intervention/Comfort measure: nothing Past Medical History: PAST MEDICAL HISTORY Diagnosis Date Blindness of left eye Breast mass, right 01/23/2010 GERD (gastroesophageal reflux disease) PMH - PAST MEDICAL HISTORY OF Linear Schleraderma Past Surgical History: PAST SURGICAL HISTORY Procedure Laterality Date EXC CYST/ABERRANT BREAST TISSUE OPEN /> LESION 01/23/2010 PAST SURGICAL HISTORY OF Left arm Skin graft PAST SURGICAL HISTORY OF Surgery right knee, to stop growth PAST SURGICAL HISTORY OF surgery left eye to keep closed at night. REVISE MEDIAN N/CARPAL TUNNEL SURG Family History: Family History Problem Relation Age of Onset Diabetes Mother adopted No Known Problems Father Breast Cancer Maternal Aunt Social History: Social History Tobacco Use Smoking status: Every Day Packs/day: 0.50 Years: 15.00 Additional pack years: 0.00 Total pack years: 7.50 Types: Cigarettes Smokeless tobacco: Never Vaping Use Vaping Use: Never used Substance Use Topics Alcohol use: No Drug use: No Comment: Marijuana laced brownies at a green party by accident Allergies: Allergies: Duloxetine Other: See Comments Tramadol Other: See Comments Trazodone Other: See Comments Current Outpatient Medications: etodolac (LODINE-XL) 400 mg 24 hr tablet Take 1 tablet by mouth once daily. For pain. Take with food triamcinolone (KENALOG) 0.025 % cream Apply 1 application to affected area twice daily. oxyCODONE-acetaminophen (PERCOCET) 7.5-325 mg tablet Take 1 tablet by mouth every 6 hours as needed for pain for up to 30 days. Do not start before October 11, 2021. DEXILANT 60 mg CpDM 60 mg once daily. oxyCODONE-acetaminophen (PERCOCET) 7.5-325 mg tablet take 1 tablet by mouth every 6 hours if needed for pain for 4 days oxyCODONE-acetaminophen (PERCOCET) 7.5-325 mg tablet Take 1 tablet by mouth every 6 hours as needed for pain for up to 30 days. amitriptyline (ELAVIL) 50 mg tablet Take 1 tablet by mouth daily at bedtime. atorvastatin (LIPITOR) 20 mg tablet Take 1 tablet by mouth daily at bedtime. escitalopram oxalate (LEXAPRO) 10 mg tablet Take 1 tablet by mouth once daily. Fenofibric Acid 45 mg cpDR Take 1 capsule by mouth once daily. tiZANidine (ZANAFLEX) 4 mg tablet Take 1.5 tablets by mouth three times daily. hydrOXYzine HCl (ATARAX) 25 mg tablet Take 1 tablet by mouth four times daily as needed. cyanocobalamin 1,000 mcg/mL Inject 1 mL intramuscularly once every month. Hydrocodone-Acetaminophen 7.5-300 mg ORAL Tab Take by mouth. Review of Systems: GENERAL: Any recent unintentional weight loss? No HEENT: Any frequent or significant headaches, or history of Glaucoma? Yes: headaches CARDIOVASCULAR: Any history of cardiac arrhythmias, NV, prior CVA, or heart failure? No GASTROINTESTINAL: Any history of peptic ulcer disease or GI bleeding, blood in stools NO GENITOURINARY: Any history of incontinence, urinary retention or nephrolithiasis? No MUSCULOSKELETAL: Any joint pain or swelling, back pain or muscle pain? Yes: all of the above NEUROLOGIC: Any recent focal numbness or weakness? Yes: right leg numb and right foot HEMATOLOGIC/LYMPHATIC/IMMUNOLOGI C: Any problems with prolonged bleeding, bruising easily? Yes: bruising easily The remainder of the ROS was negative. 11/18/2022 3:06 PM Nursing Attestation: I have reviewed the nursing documentation, edited the information as necessary, and confirmed the pertinent information with the patient. History of Present Illness: The patient presents with a chief complaint of left arm and leg pain plus right shoulder, right hip and right leg/hip pain. She has a history of left UE and LLE scleroderma. The pain is sharp and electrifying. The pain ranges from 9-10/10. Sanding walking, seating aggravates the pain. She states she moved to [place] from [place]. She was seeing a PM near [place] since 09/2021. She received an injection with Ortho with benefit. She states she has been on percocet 7.5 mg for 25 years prior to coming to [place]. Her local PM provider has tried xtempza and percocet 5-325 mg. She is a current smoking cigarettes. She is currently on tizanidine, and elevil. Patient states she was recently discharged from Dr. Rosraio's office due to asking for an increase in the percocet. UDS 10/07/2021 positive oxycodone and cannabinoids. Patient admits to using a topical CBD cream. She states the she has injection in her spine many years ago that were beneficial. Reviewed notes from [facility] and Outside [place] PM note. Per [place] PM notes, patient was discharged from [facility] 2020 due to overtaking her medication. Patient today is asking for refills on percocet (7.5 mg) and lunesta. Patient states her previous PM physical and PCP are refusing to fill he medications and have directed her to the ED. 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 NARX Narcotics: 100 (08/06/2021 8:03 AM) NARX Sedatives: 201 (08/06/2021 8:03 AM) NARX Stimulants: 000 (08/06/2021 8:03 AM) NARX RISK SCORE: 060 (NARxCHECK scores) (08/06/2021 8:03 AM) Physical Examination: 11/18/22 1504 BP: 186/99 Pulse: 108 Weight: 45 kg (99 lb 3.2 oz) General: overt muscle wasting in left upper and lower extremity and alert HEENT: left eye closed Lungs: Unlabored on room air GI: Soft, non-tender, non-distended. : not examined Musculoskeletal: Extremities: Normal except for left upper and lower extremity with overt muscle wasting, left leg length discrepancy, wearing boot with lift Neurological: Mental Status: alert, oriented to person, place, and time Gait: Antalgic. Recent Imaging: Outside notes reviewed Assessment and Plan This is a 52 year old female with left UE and LE schleroderma presenting with multi joint pain. The pain is in right shoulder, left forearm, bilateral hips, and right leg. Lumbar MRI 01/2021 showed moderate NF narrowing left L4 and right L5. Patient has tried tramadol, vicodin, percocet, morhine, motrin, voltaren, mobic, cymbalta, gabapentin, pregabalin, flexeril, skelexin, elavil, and zanaflex in the past. At this time, will order lumbar and thoracic x-rays. Will order Pain Psychology to help with emotional aspect of care. Discussed referral to CPRP- patient declined. Discussed release of records from local PM provider. Upon discussion of medication management ( gabapentin and pregabalin) patient ended encounter abruptly and walked out of clinic before discussion was complete. Patient is welcome to return to our clinic in the future. PLAN: Imaging: Lumbar x-ray and thoracic x-ray Referrals: Pain Psychology Discussed Chronic Pain Rehab Program patient declined Sabrina Tineo MD Electronic signature 1. This office note has been dictated and may contain minor typographic errors that escaped review 2. The nursing staff and medical assistants are a major part of YOUR TREATMENT TEAM and will be handling your phone calls and inquiries, if any. Unless explicitly told otherwise at the time of your office visit, your study results and ensuing treatment plans will be discussed during your follow-up appointment. If you do not have a follow-up appointment and wish to discuss any issues directly with me, please feel free to obtain one. 3. It is my practice to not fill disability or any other insurance-related forms/documention. All of the office notes, study results, and other pertinent documentation generated as part of your evaluation will be available to you and to your Primary Care Physician (PCP). Use of this material to complete such forms will be at the discretion of your PCP/referring physician. The [facility] E[facility] was reviewed during the visit including: Problem List, Past Medical History, Past Surgical History, Medications, Allergies, Encounters with other providers and associated notes, and Imaging I spent 10 minutes reviewing the patient's medical record including pertinent laboratory results and available imaging. Imaging reviewed: Outside imaging was reviewed Outside medical records review: No OARRS: PDMP website checked and validated and is consistent with medication report. *Information in italics was copied from the shared EMR I spent a total of 22 minutes on the date of the service which included preparing to see the patient, [id number] patient care, completing clinical documentation, obtaining and/or reviewing separately obtained history, performing a medically appropriate examination, counseling and educating the patient/family/caregiver, and ordering medications, tests, or procedures. documented in this encounter [facility] 06-01-2022 Note ORIGINAL PROCEDURE: 1. Removal of cuffed tunneled catheter CLINICAL STATEMENT: Right chest tunneled CVC in place for cellulitis, resolved. No longer required tunneled CVC. EXTRACTOR OPERATOR: Michelle De Souza PA-C CATHETER LOCATION: Right chest CATHETER TYPE: CVC The procedure, risks, and alternatives, were discussed and all questions were answered. Written informed consent obtained. Accompanying paperwork was verified for accuracy. Directed history and physical exam performed prior to the procedure. Medication reconciliation performed by nursing personnel. Procedure was performed using a cap, sterile gown, sterile gloves, sterile towels, hand hygiene and hospital approved cutaneous antisepsis. The patient was positioned supine in bed and prepped and draped in usual sterile fashion. A critical pause was performed with assisting personnel just prior to the procedure with the patient's identity confirmed using 2 identifiers, confirming site and side. The cuff was freed from the surrounding tissue utilizing minimal traction. The catheter was removed in its entirety without difficulty. Pressure was held at the venotomy for approximately five minutes. Bacitracin ointment on a sterile dressing was applied at the skin entry site. COMPLICATIONS: None EBL: Minimal PATIENT CONDITION: Stable, unchanged. IMPRESSION: 1. Removal of cuffed tunneled catheter. This procedure was performed by Michelle De Souza PA-C Interpreted by: Channing Jurado MD Preliminary Report By: Michelle De Souza PA-C Electronically signed By Channing Jurado MD Dictated Date: 05/29/2022 11:44:30 AM Prelim Date: 05/29/2022 11:45:57 AM Sign Date: 05/31/2022 10:17:40 PM Ordering Provider: PATRICK RUTLEDGE [facility] ([place]) 05-14-2022 Hospital Discharge instructions Patient Education 05/13/2022 22:16:20 AA Blank DI(CUSTOM) Bleeding wound Please keep the bandage on for the next 24 hours. When you remove it, if it has a reoccurrence of bleeding, reapply a Vaseline gauze first, you can cut a small piece to fit, then the dressing, then wrap it with the brown Coban. Follow-up with your doctor as needed. Document Released: 02/01/2006 Document Revised: 01/18/2013 Document Reviewed: 02/02/2014 ExitCare Patient Information 2015 [employer]. This information is not intended to replace advice given to you by your health care provider. Make sure you discuss any questions you have with your health care provider. Follow Up Care 05/13/2022 21:47:45 With:SOLIS SHELL Address: [address] [place] [phone] When:2-4 days [facility] 05-13-2022 Emergency department Discharge summary Discharge Instructions Thank you for allowing [facility] to assist you with your healthcare needs. The following is important discharge information regarding your hospital visit. Diagnosis from Today's Visit Arm abrasion, complicated What to Do Next Instructions from Your Care Team No qualifying data available. Post Acute Orders No qualifying data available. You Need to Schedule the Following Appointments Follow Up with SOLIS SHELL When Within 2-4 days Where: [address] [place] [phone] Allergies Cymbalta ([facility]) traMADol (Unknown) traZODone ([facility]) Medications Please ask your primary doctor or pharmacist before taking any other medication not listed, including over the counter drugs, herbal medications, vitamins and or supplements as they may interact with your home medications. What How Much When Why Instructions Last Dose Unchanged acetaminophen-oxyCODONE (acetaminophen-oxycodone 325 mg-7.5 mg oral tablet) 1 tab(s) by mouth Every 6 hours as needed for for pain Chronic pain Degenerative joint disease (DJD) of lumbar spine Duration: 30 Days Unchanged amitriptyline (amitriptyline 50 mg oral tablet) 1 tab(s) by mouth Daily at bedtime Unchanged amLODIPine (amLODIPine 5 mg oral tablet) 1 tab(s) by mouth Once a day Duration: 30 Days Unchanged atorvastatin (atorvastatin 20 mg oral tablet) 1 tab(s) by mouth Once a day Unchanged cetirizine (Zyrtec 10 mg oral tablet) 1 tab(s) by mouth Once a day as needed for as needed for allergy symptoms Unchanged cholecalciferol (cholecalciferol 1250 mcg (50,000 intl units) oral capsule) 1 cap by mouth Every week Duration: 90 Days Unchanged dexlansoprazole (dexlansoprazole 60 mg oral delayed release capsule) 1 cap by mouth Once a day Duration: 90 Days Unchanged DME (DME MISCellaneous) See instructions Osteoarthritis of right hip SAMAHER TENS UNIT E 0730 reducing chronic intractable pain, or lead for multiple pain sites. Certificate of medical necessity, the above identified equipment is deemed medically necessary for an estimated period of time 1 month rental with option to purchase. Unchanged ertapenem (Invanz 1 g (Disch Rx)) 1 gram(s) IV Piggyback Once a day Unchanged eszopiclone (eszopiclone 3 mg oral tablet) 1 tab(s) by mouth Daily at bedtime Insomnia Duration: 30 Days Unchanged fenofibric acid (fenofibric acid 45 mg oral delayed release capsule) 1 cap by mouth Once a day Unchanged lactobacillus acidophilus and bulgaricus (lactobacillus acidophilus and bulgaricus oral tablet) 1 tab(s) by mouth Three (3) times a day Duration: 10 Days Unchanged tiZANidine (Zanaflex 4 mg oral tablet) 2 tab(s) by mouth Daily at bedtime Please take this list to your next doctor s visit. Bring all medications you take, including over the counter medications, herbals and other supplements with you to your doctor s visit. Patients and families are reminded to discard old lists and to update any records with all medication providers or retail pharmacies. Education Materials Bleeding wound Please keep the bandage on for the next 24 hours. When you remove it, if it has a reoccurrence of bleeding, reapply a Vaseline gauze first, you can cut a small piece to fit, then the dressing, then wrap it with the brown Coban. Follow-up with your doctor as needed. Document Released: 02/01/2006 Document Revised: 01/18/2013 Document Reviewed: 02/02/2014 [facility] Patient Information 2015 [employer] [facility]. This information is not intended to replace advice given to you by your health care provider. Make sure you discuss any questions you have with your health care provider. Additional Information VACCINATE! IT SAVES LIVES! Members of the community who have not yet received the COVID-19 vaccine and would like to receive it can visit one of [facility] vaccine clinics. There are many vaccine clinic locations within the [facility]. For locations and available times, please visit [email or web address] [email or web address] It is important to note that some COVID mobile vaccine clinics are held outdoors and may be canceled in rainy or stormy conditions. To learn more about pediatric vaccinations (ages 5-11), we invite you to visit the [employer] webpage. [email or web address]/p [email or web address] [email or web address] To learn more about the COVID-19 vaccine, we invite you to visit the CDC website for a list of frequently asked questions. https://www.cdc.gov/coronavirus/ 2019-ncov/vaccines/faq.html [facility] Patient Portal Access Instructions: Stay connected with your healthcare team and access your personal medical information anytime with the [facility] Patient Portal. If you would like a full copy of your medical records please contact the [facility] Medical Records Department Wednesday through Wednesday between 8a.m. and 4:30p.m. Please follow the directions below to access the portal: 1.Access the email account you provided upon registration to the hospital.2.Look for an invitation email from [facility].3.Open the email and access the invitation link: Accept Invitation to [facility]4.Fill in the required mariano to create your account. Sign into [email or web address] with your username and password that you created in the above steps to stay up to date. You can then view a summary of results, a summary of your visits, and the ability to download your summaries to your computer or send the information securely to a physician. Remember that your healthcare information is confidential, so carefully consider who you will allow to register on the [facility] Patient Portal for access to your information. You can also access the [facility] Patient Portal on the [employer] arash. Simply click on Health Records under Health Data and then click on the [employer] logo. HOW TO SAFELY DISPOSE OF PRESCRIPTION MEDICATIONS Please use one of the following methods to safely dispose of your unused medications. 1.Use a drug disposal kit: the drug disposal pouch allows you to safely discard your old and unused drugs. Ask your nurse to give you one when you are discharged.2.Visit a local take-back location: Many local pharmacies and police departments have programs that collect old and unwanted prescription drugs. Call your local pharmacy or go to http://[employer]/5G3Qd0g to find one close to you.3.Make use of household items: Use cat litter or old coffee grounds to dispose medications if other options are not available. Mix your drugs with these household products, seal them in an airtight container and throw it into the garbage. Call [facility]: [phone] to be sure your drugs can be disposed of in this way. Some medicines may require a different approach.4.Never flush your medications down the toilet. IF YOU HAVE BEEN PRESCRIBED AN OPIOIDS FOR PAIN If you have been prescribed an opioid (such as hydrocodone, oxycodone or morphine), it is critical to understand the possible side effects and risks of opioid pain medications. Even when taken as directed, opioids can have several side effects including: Tolerance, meaning you might need to take more of a medication for the same pain relief. Nausea, vomiting and/or constipation. Sleepiness, dizziness, dry mouth, confusion, depression or itching. Physical dependence, meaning you have withdrawal symptoms when a medication is stopped ? this can develop within a few days. KNOW YOUR RESPONSIBILITIES It is important to know exactly how much and how often to take the opioid pain medications you are prescribed. Never take opioids in higher amounts or more often than prescribed. Do not combine opioids with alcohol or other drugs that cause drowsiness, such as benzodiazepines, also known as benzos, including diazepam and alprazolam, muscle relaxants or sleep aids. Never sell or share prescription opioids. This is illegal. Store opioids in a secure place and out of reach of others (including children, family, friends and visitors). The last page(s) of this document has been signed and retained as a CHART COPY Signatures Patient Education Materials JOSE PILLAI(CUSTOM) Medication Leaflets My discharge plan and instructions have been reviewed and explained to me and I,DAYNA MONCADA understand my current condition and have read and understand these discharge instructions. I have received a written copy of the plan/instructions. If I have questions, I am aware that I should contact my doctor. 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: Date/Time: Relationship to Patient: Witness Name/Signature: Date/Time: [facility] 05-09-2022 Note ORIGINAL PROCEDURE Tunneled central venous catheter placement with fluoroscopy and ultrasound EXTRACTOR OPERATOR: Michelle De Souza PA-C CLINICAL STATEMENT: Requires senior living IV antibiotics after discharge MATERIALS UTILIZED: 6 Fr single lumen Pro-line CT PICC, 25 cm Probe cover Micropuncture Glue 2-0 Ethilon ANESTHESIA: Local FLUORO: 0.2 minutes AIR KERMA DOSE: 3.63 mGy SITE OF PUNCTURE: Right internal jugular vein The procedure, risks, and alternatives, were discussed and all questions were answered. Written informed consent obtained. Accompanying paperwork was verified for accuracy. Directed history and physical exam performed prior to the procedure. Medication reconciliation performed by nursing personnel. Procedure was performed using a cap, sterile gown, sterile gloves, a large sterile sheet, hand hygiene and hospital approved cutaneous antisepsis. The patient was positioned supine on the table and prepped and draped in usual sterile fashion. A critical pause was performed with assisting personnel just prior to the procedure with the patient's identity confirmed using 2 identifiers, confirming site and side. Preliminary ultrasound of the neck demonstrated a widely patent vein and an image was obtained. 2% lidocaine was administered at the puncture site for local anesthesia. A tiny skin incision was made. The vein was cannulated under direct sonographic guidance with a micropuncture set. A wire was advanced into the IVC. The planned tunnel on the chest was anesthetized with 2% lidocaine with epinephrine. A small skin incision was made at the planned entry site. Through this incision, the catheter was tunneled to the initial incision. The venous puncture was dilated and a peel-away sheath placed. The peel-away introducer and wire were removed and the catheter inserted through the peel-away sheath. The peel-away sheath was removed. Final fluoroscopic image demonstrates the catheter tip to be near the cavoatrial junction. All lumens were aspirated and flushed with saline, followed by a heparin flush per protocol. Sterile caps were attached to each lumen. The catheter was fixed to the skin with suture. The tiny neck incision was approximated with glue. COMPLICATIONS: None EBL: Minimal PATIENT CONDITION: unchanged IMPRESSION: Successful placement of tunneled cuffed central venous catheter. Procedure was performed by Michelle De Souza PA-C Interpreted by: Magan Thomas MD Preliminary Report By: Michelle De Souza PA-C Electronically signed By Magan Thomas MD Dictated Date: 05/08/2022 11:48:56 AM Prelim Date: 05/08/2022 11:50:48 AM Sign Date: 05/09/2022 6:11:41 PM [facility]ing [facility] ([place] 05-07-2022 Hospital Discharge instructions Patient Education 05/07/2022 14:41:09 Skin Abscess, Pbbh-yo-Ylzq Skin Abscess A skin abscess is an infected area of your skin that contains pus and other material. An abscess can happen in any part of your body. Some abscesses break open (rupture) on their own. Most continue to get worse unless they are treated. The infection can spread deeper into the body and into your blood, which can make you feel sick. A skin abscess is caused by germs that enter the skin through a cut or scrape. It can also be caused by blocked oil and sweat glands or infected hair follicles. This condition is usually treated by: Draining the pus. Taking antibiotic medicines. Placing a warm, wet washcloth over the abscess. Follow these instructions at home: Medicines Take fyez-vmn-fbxzmib and prescription medicines only as told by your doctor. If you were prescribed an antibiotic medicine, take it as told by your doctor. Do not stop taking the antibiotic even if you start to feel better. Abscess care If you have an abscess that has not drained, place a warm, clean, wet washcloth over the abscess several times a day. Do this as told by your doctor. Follow instructions from your doctor about how to take care of your abscess. Make sure you: ?Cover the abscess with a bandage (dressing). ?Change your bandage or gauze as told by your doctor. ?Wash your hands with soap and water before you change the bandage or gauze. If you cannot use soap and water, use hand burglar alarm superintendent. Check your abscess every day for signs that the infection is getting worse. Check for: ?More redness, swelling, or pain. ?More fluid or blood. ?Warmth. ?More pus or a bad smell. General instructions To avoid spreading the infection: ?Do not share personal care items, towels, or hot tubs with others. ?Avoid making mcjj-qg-mgji contact with other people. Keep all follow-up visits as told by your doctor. This is important. Contact a doctor if: You have more redness, swelling, or pain around your abscess. You have more fluid or blood coming from your abscess. Your abscess feels warm when you touch it. You have more pus or a bad smell coming from your abscess. You have a fever. Your muscles ache. You have chills. You feel sick. Get help right away if: You have very bad (severe) pain. You see red streaks on your skin spreading away from the abscess. Summary A skin abscess is an infected area of your skin that contains pus and other material. The abscess is caused by germs that enter the skin through a cut or scrape. It can also be caused by blocked oil and sweat glands or infected hair follicles. Follow your doctor's instructions on caring for your abscess, taking medicines, preventing infections, and keeping follow-up visits. This information is not intended to replace advice given to you by your health care provider. Make sure you discuss any questions you have with your health care provider. Document Released: 07/20/2008 Document Revised: 05/25/2019 Document Reviewed: 03/17/2018 [employer] Patient Education 2020 [employer] Follow Up Care 05/02/2022 02:51:26 With:[facility] - Outpatient Infusion has been arranged for you. They should call to schedule today for first appointment, if you do not hear from them or have any questions or concerns please call [phone] Address:Unknown When:1-2 days With:SOLIS SHELL Address: [address] [facility] [place] [address]- Business (1) When:1-2 days Comments:Please call the office to schedule a follow up appointment With:PATRICK RUTLEDGE Address: [facility] [id number] [place] [address]- Business (1) When:1-2 days Comments:please follow up within [address] [facility] 05-07-2022 Nurse Progress note This nurse has reviewed and agrees with Lillie Fernández student's charting and all medications were verified prior to administration. Digitally Signed by Beth Leach RN on 05/07/2022 03:[address] [facility] 05-07-2022 Note Discharge Instructions Thank you for allowing [facility] to assist you with your healthcare needs. The following is important discharge information regarding your hospital visit. 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 Please follow up with Infectious disease in 2 weeks. Follow up with your PCP and the orthopedic clinic that you are established with Return to the ED/present to [facility] for new or worsening symptoms. Scheduled Follow-Up Appointments Appointment Type When With Where Contact InformationPM OV 05/25/2022 10:45 AM EDSHRAVAN DOWLING MD [facility] OV Controlled Medication 06/12/2022 02:00 PM EDSOLIS [facility] Follow Up Appointments Follow Up with [facility]patient [facility]fusion has been arranged for you. They should call to schedule today for first appointment, if you do not hear from them or have any questions or concerns please call [phone] When Within 1-2 days Follow Up with SOLIS SHELL When Within 1-2 days Why: Please call the office to schedule a follow up appointment Where: [address] [facility] [place] [address]- Business (1) Follow Up with PATRICK RUTLEDGE When Within 1-2 days Why: please follow up within 2 weeks Where: [facility] [address] [place] [address]- Business (1) The Following Activity and Diet Have Been Ordered for You Discharge Activity - Ordered -- Activity As Tolerated, Additional instructions include:, 05/07/22 14:31:00 EDT Discharge Diet - Ordered -- No changes were made to your diet during your hospital stay. Please resume your pre hospitalization diet on discharge., 05/07/22 14:31:00 EDT The Following Equipment Has Been Ordered for You No qualifying data available. The Following Treatments Have Been Ordered for You Discharge Labs No qualifying data available. Discharge Radiology No qualifying data available. Other Therapies Discharge to Outpatient OT - Ordered -- Therapy Order: Outpatient OT Eval and Treat, Upper extremity soft tiss, Reason: Weakness, 05/07/22 14:31:00 EDT Discharge to Outpatient PT - Ordered -- Therapy Order: Outpatient PT Eval and Treat, Upper extremity soft tiss, Reason: Weakness, 05/07/22 14:31:00 EDT Post Acute Orders No qualifying data available. Someone Will Contact You Regarding These Home Health Referrals No home referrals have been ordered for you. No one will call you. Allergies Cymbalta (Racing Heart) traMADol (Unknown) traZODone ([facility]) Medications Please ask your primary doctor or pharmacist before taking any other medication not listed, including over the counter drugs, herbal medications, vitamins and or supplements as they may interact with your home medications. What How Much When Why Instructions Last Dose New amLODIPine (amLODIPine 5 mg oral tablet) 1 tab(s) by mouth Once a day Duration: 30 Days Pickup at [facility] New ertapenem (Invanz 1 g (Disch Rx)) 1 gram(s) IV Piggyback Once a day New lactobacillus acidophilus and bulgaricus (lactobacillus acidophilus and bulgaricus oral tablet) 1 tab(s) by mouth Three (3) times a day Duration: 10 Days Pickup at [facility] [address] Unchanged acetaminophen-oxyCODONE (acetaminophen-oxycodone 325 mg-7.5 mg oral tablet) 1 tab(s) by mouth Every 6 hours as needed for for pain Chronic pain Degenerative joint disease (DJD) of lumbar spine Duration: 30 Days Unchanged amitriptyline (amitriptyline 50 mg oral tablet) 1 tab(s) by mouth Daily at bedtime Unchanged atorvastatin (atorvastatin 20 mg oral tablet) 1 tab(s) by mouth Once a day Unchanged cetirizine (Zyrtec 10 mg oral tablet) 1 tab(s) by mouth Once a day as needed for as needed for allergy symptoms Unchanged cholecalciferol (cholecalciferol 1250 mcg (50,000 intl units) oral capsule) 1 cap by mouth Every week Duration: 90 Days Unchanged denosumab (Prolia 60 mg/ mL subcutaneous solution) 1 Milliliter Subcutaneous Every 6 months Osteoporosis Right hip pain Duration: 6 month(s) Unchanged dexlansoprazole (dexlansoprazole 60 mg oral delayed release capsule) 1 cap by mouth Once a day Duration: 90 Days Unchanged DME (DME MISCellaneous) See instructions Osteoarthritis of right [facility] reducing chronic intractable pain, or lead for multiple pain sites. Certificate of medical necessity, the above identified equipment is deemed medically necessary for an estimated period of time 1 month rental with option to purchase. Unchanged eszopiclone (eszopiclone 3 mg oral tablet) 1 tab(s) by mouth Daily at bedtime Insomnia Duration: 30 Days Unchanged fenofibric acid (fenofibric acid 45 mg oral delayed release capsule) 1 cap by mouth Once a day Unchanged tiZANidine (Zanaflex 4 mg oral tablet) 2 tab(s) by mouth Daily at bedtime Pharmacy Information [facility]: [address] [place], [place] [id number] [phone] What How Much When Comments Stop Taking cefTRIAXone 2 gram(s) IV Piggyback Once a day Stop Taking vancomycin (vancomycin 1.25 g intravenous injection) Please take this list to your next doctor s visit. Bring all medications you take, including over the counter medications, herbals and other supplements with you to your doctor s visit. Patients and families are reminded to discard old lists and to update any records with all medication providers or retail pharmacies. Education Materials Skin Abscess A skin abscess is an infected area of your skin that contains pus and other material. An abscess can happen in any part of your body. Some abscesses break open (rupture) on their own. Most continue to get worse unless they are treated. The infection can spread deeper into the body and into your blood, which can make you feel sick. A skin abscess is caused by germs that enter the skin through a cut or scrape. It can also be caused by blocked oil and sweat glands or infected hair follicles. This condition is usually treated by: Draining the pus. Taking antibiotic medicines. Placing a warm, wet washcloth over the abscess. Follow these instructions at home: Medicines Take fznk-oyj-docwrem and prescription medicines only as told by your doctor. If you were prescribed an antibiotic medicine, take it as told by your doctor. Do not stop taking the antibiotic even if you start to feel better. Abscess care If you have an abscess that has not drained, place a warm, clean, wet washcloth over the abscess several times a day. Do this as told by your doctor. Follow instructions from your doctor about how to take care of your abscess. Make sure you: ? Cover the abscess with a bandage (dressing). ? Change your bandage or gauze as told by your doctor. ? Wash your hands with soap and water before you change the bandage or gauze. If you cannot use soap and water, use hand burglar alarm superintendent. Check your abscess every day for signs that the infection is getting worse. Check for: ? More redness, swelling, or pain. ? More fluid or blood. ? Warmth. ? More pus or a bad smell. General instructions To avoid spreading the infection: ? Do not share personal care items, towels, or hot tubs with others. ? Avoid making epqp-na-zmam contact with other people. Keep all follow-up visits as told by your doctor. This is important. Contact a doctor if: You have more redness, swelling, or pain around your abscess. You have more fluid or blood coming from your abscess. Your abscess feels warm when you touch it. You have more pus or a bad smell coming from your abscess. You have a fever. Your muscles ache. You have chills. You feel sick. Get help right away if: You have very bad (severe) pain. You see red streaks on your skin spreading away from the abscess. Summary A skin abscess is an infected area of your skin that contains pus and other material. The abscess is caused by germs that enter the skin through a cut or scrape. It can also be caused by blocked oil and sweat glands or infected hair follicles. Follow your doctor's instructions on caring for your abscess, taking medicines, preventing infections, and keeping follow-up visits. This information is not intended to replace advice given to you by your health care provider. Make sure you discuss any questions you have with your health care provider. Document Released: 07/20/2008 Document Revised: 05/25/2019 Document Reviewed: 03/17/2018 [employer] Patient Education 2020 [employer]. Additional Information VACCINATE! IT SAVES LIVES! Members of the community who have not yet received the COVID-19 vaccine and would like to receive it can visit one of [facility] vaccine clinics. There are many vaccine clinic locations within the [facility]. For locations and available times, please visit https://gettheshot.coronavirus.o gao.gov/. It is important to note that some COVID mobile vaccine clinics are held outdoors and may be canceled in rainy or stormy conditions. To learn more about pediatric vaccinations (ages 5-11), we invite you to visit the [facility] webpage. https://www.[email or web address].org/p ages/2260-Ygblg-Vyfmqzwosmf-Freq qampvi-Lmugc-Bnnevjbvu.html To learn more about the COVID-19 vaccine, we invite you to visit the CDC website for a list of frequently asked questions. https://www.cdc.gov/coronavirus/ 2019-ncov/vaccines/faq.html [facility] Patient Portal Access Instructions: Stay connected with your healthcare team and access your personal medical information anytime with the [facility] Patient Portal.If you would like a full copy of your medical records, please contact the [facility] Medical Records Department, Wednesday through Wednesday between 8a.m. and 4:30p.m. Please follow the directions below to access the portal: 1.Access the email account you provided upon registration to the [facility].2.Look for an invitation email from [facility].3.Open the email and access the invitation link: Accept Invitation to [facility] Referral Source4.Fill in the required mariano to create your account. Sign into [email or web address] with your username and password that you created in the above steps to stay up to date. You can then view a summary of results, a summary of your visits, and the ability to download your summaries to your computer or send the information securely to a physician. Remember that your healthcare information is confidential, so carefully consider who you will allow to register on the [facility] Patient Portal for access to your information. You can also access the [facility] Patient Portal on the [employer] arash. Simply click on Health Records under [employer]able Data and then click on the [employer] logo. HOW TO SAFELY DISPOSE OF PRESCRIPTION MEDICATIONS Please use one of the following methods to safely dispose of your unused medications. 1.Use a drug disposal kit: the drug disposal pouch allows you to safely discard your old and unused drugs. Ask your nurse to give you one when you are discharged.2.Visit a local take-back location: Many local pharmacies and police departments have programs that collect old and unwanted prescription drugs. Call your local pharmacy or go to http://[employer]/2D8Ka6h to find one close to you.3.Make use of household items: Use cat litter or old coffee grounds to dispose medications if other options are not available. Mix your drugs with these household products, seal them in an airtight container and throw it into the garbage. Call [facility]: [phone] to be sure your drugs can be disposed of in this way. Some medicines may require a different approach.4.Never flush your medications down the toilet. IF YOU HAVE BEEN PRESCRIBED AN OPIOID FOR PAIN If you have been prescribed an opioid (such as hydrocodone, oxycodone or morphine), it is critical to understand the possible side effects and risks of opioid pain medications. Even when taken as directed, opioids can have several side effects including: Tolerance, meaning you might need to take more of a medication for the same pain relief. Nausea, vomiting and/or constipation. Sleepiness, dizziness, dry mouth, confusion, depression or itching. Physical dependence, meaning you have withdrawal symptoms when a medication is stopped, can develop within a few days. KNOW YOUR RESPONSIBILITIES It is important to know exactly how much and how often to take the opioid pain medications you are prescribed. Never take opioids in higher amounts or more often than prescribed. Do not combine opioids with alcohol or other drugs that cause drowsiness, such as benzodiazepines, also known as benzos, including diazepam and alprazolam, muscle relaxants or sleep aids. Never sell or share prescription opioids. This is illegal. Store opioids in a secure place and out of reach of others (including children, family, friends and visitors). The last page of this document has been signed and retained as a CHART COPY. Signatures Patient Education Materials Skin Abscess, Qopo-tg-Dvmt Medication Leaflets My discharge plan and instructions have been reviewed and explained to me and I,DAYNA MONCADA M understand my current condition and have read and understand these discharge instructions. I have received a written copy of the plan/instructions. If I have questions, I am aware that I should contact my doctor. 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 05-07-2022 Discharge summary Date of Service 05/07/2022 Discharge Diagnosis Cellulitis of left upper limb (L03.114 - ICD-10-CM) Cellulitis of left upper limb (L03.114 - ICD-10-CM) Cachexia (R64 - ICD-10-CM) Personal history of other diseases of the nervous system and sense organs (Z86.69 - ICD-10-CM) Secondary osteoarthritis, unspecified site (M19.93 - ICD-10-CM) Pain in left arm (M79.602 - ICD-10-CM) Blindness, one eye, unspecified eye (H54.40 - ICD-10-CM) Personal history of malignant neoplasm of breast (Z85.3 - ICD-10-CM) Depression, unspecified (F32.A - ICD-10-CM) Anxiety disorder, unspecified (F41.9 - ICD-10-CM) Unilateral primary osteoarthritis, right hip (M16.11 - ICD-10-CM) Age-related osteoporosis without current pathological fracture (M81.0 - ICD-10-CM) Systemic sclerosis, unspecified (M34.9 - ICD-10-CM) Insomnia (G47.00 - ICD-10-CM) Hospital Course 51-year-old female with past medical history of scleroderma in the process of following with rheumatology, neuropathy, hyperlipidemia, chronic back pain follows with pain management, osteoporosis, degenerative joint disease, anemia, tobacco abuse who initially presented to [facility] on 04/29/2022 with complaints of left arm pain and cellulitis. Patient developed an ulcer on her forearm several days prior. Patient was seen by her PCP and prescribed Keflex with worsening symptoms. On arrival to [facility], patient was started on broad-spectrum antibiotics. An MRI of the left forearm was completed which showed diffuse cellulitis of the forearm and hand without rim-enhancing fluid collection to suggest abscess. Mildly enhancing deep intramuscular fluid of the flexor compartment of the forearm. Correlate for signs of deep fascial infectious process versus compartment syndrome. No evidence of osteomyelitis. Several hospitals were contacted for transfer including [facility], [facility], [facility], [facility], [facility] orthopedics and [facility] who were unable to take the patient. Patient was therefore transferred to [facility] for further evaluation. While at [facility], blood work remained stable, hemoglobin 10.2. BMP initially showed a creatinine of 1.12, which trended down. ESR was elevated at 65, CRP 15.1. Lactic acid unremarkable at 1.0. Vital signs hemodynamically stable, afebrile on room air. Infectious disease and orthopedics were consulted. Orthopedic surgery recommended local wound care. Per orthopedic consult note: no discrete collection noted. Low concern for compartment syndrome or necrotizing fasciitis at this time. Left upper extremity Doppler study was negative for acute DVT Culture to left arm revealed MSSA and group A strep. Patient was evaluated by infectious disease team recommending PICC placement for IV antibiotics a physical prescription was is left in the chart for Invanz 1 g every 24 hours until May 22, 2022 with weekly labs including CMP and CBC and ESR patient is to follow-up with infectious disease within 2 weeks. Patient was initially considering transfer to tertiary center for second opinion however on further discussion with primary team patient made the decision to continue with recommendations per ID. Patient will be discharged with infusion therapy as coordinated by case management service. Patient is to follow-up with infectious disease orthopedics and PCP. PT evaluated patient recommending discharge home with outpatient PT. Allergies Cymbalta (Racing Heart) traMADol (Unknown) traZODone ([facility]) Consults Consult to Physician - Ordered -- 05/02/22 3:32:00 EDT, PATRICK RUTLEDGE BA, MD, Routine, Left arm cellulitis Consult to Physician - Ordered -- 05/02/22 3:32:00 EDT, BLACK MCCONNELL MD, Routine, Left arm wound/cellulitis Consult to Physician - Ordered -- 05/02/22 12:01:00 EDT, FRAN MOREAU DO, Routine, left foream abscess Physical Exam Vitals and Measurements T: 36.7 C (Oral) TMIN: 36.7 C (Oral) TMAX: 37 C (Oral) HR: 84(Apical) RR: 20 BP: 120/74 SpO2: 95% Weight Dosing Weight: 44.8 kg (05/02/22) Code Status Code Status - Ordered -- 05/02/22 3:05:00 EDT, Full Code, Constant Order Admission Date 05/02/2022 Discharge Date 05/07/2022 Patient Instructions Continue antibiotics through PICC line- 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 Please follow up with Infectious disease in 2 weeks. Follow up with your PCP and the orthopedic clinic that you are established with Return to the ED/present to [facility] for new or worsening symptoms. Medications New Prescription amLODIPine (amLODIPine 5 mg oral tablet)1 tab(s) by mouth once a day for 30 Days. Refills: 0. ertapenem (Invanz 1 g (Disch Rx))1 gram(s) IV Piggyback once a day. Refills: 0. lactobacillus acidophilus and bulgaricus (lactobacillus acidophilus and bulgaricus oral tablet)1 tab(s) by mouth three (3) times a day for 10 Days. Refills: 0. Unchanged acetaminophen-oxyCODONE (acetaminophen-oxycodone 325 mg-7.5 mg oral tablet)1 tab(s) by mouth every 6 hours as needed for pain for 30 Days. Refills: 0. amitriptyline (amitriptyline 50 mg oral tablet)1 tab(s) by mouth daily at bedtime. atorvastatin (atorvastatin 20 mg oral tablet)1 tab(s) by mouth once a day. cetirizine (Zyrtec 10 mg oral tablet)1 tab(s) by mouth once a day as needed as needed for allergy symptoms. cholecalciferol (cholecalciferol 1250 mcg (50,000 intl units) oral capsule)1 cap by mouth every week for 90 Days. Refills: 3. denosumab (Prolia 60 mg/mL subcutaneous solution)1 Milliliter Subcutaneous every 6 months for 6 month(s). Refills: 1. dexlansoprazole (dexlansoprazole 60 mg oral delayed release capsule)1 cap by mouth once a day for 90 Days. Refills: 3. DME (DME MISCellaneous)[facility] TENS UNIT E 0730 reducing chronic intractable pain, or lead for multiple pain sites. Certificate of medical necessity, the above identified equipment is deemed medically necessary for an estimated period of time 1 month rental with option to purchase.. Refills: 0. eszopiclone (eszopiclone 3 mg oral tablet)1 tab(s) by mouth daily at bedtime for 30 Days. Refills: 0. fenofibric acid (fenofibric acid 45 mg oral delayed release capsule)1 cap by mouth once a day. tiZANidine (Zanaflex 4 mg oral tablet)2 tab(s) by mouth daily at bedtime. Discontinued cefTRIAXone2 gram(s) IV Piggyback once a day. vancomycin (vancomycin 1.25 g intravenous injection) Follow Up Follow Up with [facility] - Outpatient Infusion has been arranged for you. They should call to schedule today for first appointment, if you do not hear from them or have any questions or concerns please call [phone] When Within 1-2 days Follow Up with SOLIS SHELL When Within 1-2 days Why: Please call the office to schedule a follow up appointment Where: [address] [facility] [place] [address]- Business (1) Follow Up with PATRICK RUTLEDGE When Within 1-2 days Why: please follow up within 2 weeks Where: [facility] [id number] [place] [address]- Business (1) Follow Up Appointments No qualifying data available. Follow Up Labs/Studies Discharge Labs No Follow-up Labs Discharge Studies No Follow-up Studies Discharge Diet No qualifying data available. Discharge Activity No qualifying data available. Condition on Discharge Stable Discharge Disposition Home with outpatient PT Information Provided To Patient at bedside Time Spent Time Spent Greater than 30 minutes was spent reviewing chart, placing orders developing treatment plan with greater than 50% of time spent at bedside counseling/coordinating care Digitally Signed by HAMILTON FLEMING MD on 05/07/2022 02:[address] [facility] 05-07-2022 Note IR Procedure Record Summary Primary Physician: Finalized Date/Time: 05/07/22 10:03:49 Pt. Name: FLAKITODAYNA BELTRÁN D.O.B./Sex: 1970 Female Med Rec #: [id number] Physician: ALEXIS JAMES MD Financial #: [id number] Pt. Type: I Room/Bed: [facility]/ Admit/Disch: 05/02/22 02:48:29 - Institution: Allergies identified in patient's electronic medical record at time of printing on 05/07/22 Entry 1 Entry 2 Entry 3 Substance Cymbalta traMADol traZODone Reaction Type Allergy Allergy Allergy Last Modified By: Dayana Schreiber PharmD Dayana Schreiber PharmD Dayana Schreiber PharmD 04/30/22 09:11:38 04/30/22 09:12:11 04/30/22 09:12:01 Case Attendance- IR Entry 1 Entry 2 Entry 3 Case Attendee MICHELLE DE SOUZA Rad Tech Kelli Fierstos, Megan R Rad PA-Janeen L Tech Role Performed Radiology PA/RA Scrub Technologist Circulating Technologist Details Time In 05/06/22 15:40:00 05/06/22 15:35:00 05/06/22 15:35:00 Time Out 05/06/22 16:08:00 05/06/22 16:18:00 05/06/22 16:18:00 Procedure/Preference IR Tunneled PICC IR Tunneled PICC IR Tunneled PICC Card Placement SN Placement SN Placement SN Last Modified By: WILLIAM Campbell RN Deborah E Patton, RN Deborah E 05/06/22 16:18:35 05/06/22 16:18:35 05/06/22 16:18:35 Entry 4 Case Attendee WILLIAM Campbell Role Performed Procedure Nurse Details Time In 05/06/22 15:35:00 Time Out 05/06/22 16:18:00 Procedure/Preference IR Tunneled PICC Card Placement SN Last Modified By: WILLIAM Campbell 05/06/22 16:18:35 Radiology Procedures- IR Entry 1 Procedure/Preference IR Tunneled PICC Actual Procedure ir tunneled picc Card Placement SN placement Primary Procedure Yes Primary Surgeon MICHELLE DE SOUZA PA-C Anesthesia/Sedation Local Type Additional Procedure Times Start 05/06/22 15:49:00 Stop 05/06/22 16:06:00 Specialty Service SN Radiology Procedure EBL 2 mL Last Modified By: WILLIAM Campbell 05/06/22 16:06:53 Radiology Procedure Details - IR Entry 1 Radiology Sedation Case Times Sedation Total Time 0 min Radiology - Fluid/Drainage Radiology Contrast Contrast Used? No Radiology Flouroscopy Fluoroscopy Used? Yes Fluoro Dose (mGy) 3.63 Fluoro Time 0.2 min Radiology Local Local Used? Yes Local Type: Lido/Lido w/epi Local Dose 10ml/10ml Radiology Procedure Site Site/Location RIJ/ right chest Site Condition No complications Suture 2.0 Ethilon Suture, Dressing Type Tagaderm Liquiband Skin Adhesive Technologist Notes 6F x 25 cm single lumen tunnled PICC Line Last Modified By: WILLIAM Campbell 05/06/22 16:08:17 General Case Data - IR Entry 1 Case Information Room IR 17 Case Level IR Level 2 Wound Class None Specialty SN Radiology Procedure ASA Class None Diagnosis Preop Diagnosis Left arm abscess Postop Same As Preop Yes Postop Diagnosis Left arm abscess Last Modified By: WILLIAM Campbell 05/06/22 16:01:43 Procedure Case Times- IR Entry 1 Patient In Procedure Patient In OR 05/06/22 15:35:00 Patient Out of OR 05/06/22 16:18:00 Procedure Start/Stop Procedure Start Time 05/06/22 15:49:00 Procedure Stop Time 05/06/22 16:06:00 Last Modified By: WILLIAM Campbell 05/06/22 16:18:32 Immediate Post Procedure Note - IR Entry 1 Immediate Post Yes Findings Successful placement of Procedure Note tunneled CVC catheter, displayed for 25cm Right IJ Physician to review Closure Technique Closure Technique Other than Primary Last Modified By: WILLIAM Campbell 05/06/22 16:07:47 Immediate Post Procedure Note - IR Signed By: MICHELLE DE SOUZA PA-C 05/06/22 16:07 Allergy Information- IR Entry 1 Allergies Reviewed? Yes Allergies Reviewed Patient With Last Modified By: WILLIAM Campbell 05/06/22 15:53:24 Radiology Protocols/Time Out- IR Entry 1 Preprocedure Clinician Verifies Correct patient ID When Clinically Confirmation of correct using name & date Indicated side(s) and site(s), or MRN, Accurate Correct diagnostic and procedure, complete radiology tests Informed Consent available, Required blood products, implants, devices and/or special equipment available OR/Procedure Room/Bedside Time 05/06/22 15:49:00 Clinician Verifies Correct patient identity including EMR & records using name and date or medical record number, Accurate procedure consent form, Correct patient position, Necessary equipment is available, Anticipated non-routine events with surgical team (case duration, estimated blood loss, patient specific concerns)., Ingram patient factors for recovery and management identified with surgical team. When Applicable Confirmation correct Team Members MICHELLE DE SOUZA side and site marked, Present for Time Out Katie MOHAMUD Rad Tech Relevant images and Eugenio Galicia, results are properly Rosa Maria Vera, labeled and WILLIAM Campbell appropriately displayed, Alcohol based prep dry Instrument Sterility Team Members Antonio Wilson Verifying Sterility L Procedure IR Tunneled PICC Placement SN Last Modified By: WILLIAM Campbell 05/06/22 15:56:33 Skin Prep- IR Entry 1 Procedure IR Tunneled PICC Placement SN Skin Prep Prep Area Neck, Chest Side Right By Antonio Wilson Prep Agents Chloraprep L Hair Removal Method N/A Last Modified By: WILLIAM aCmpbell 05/06/22 15:57:25 Patient Positioning- IR Entry 1 Procedure IR Tunneled PICC Body Position OP Supine Placement SN Feet Uncrossed? Yes Pressure Points Yes Checked Last Modified By: WILLIAM Campbell 05/06/22 15:57:36 Implants- IR Entry 1 Implant/Explant Implant Implant Description [id number] Wasted? Yes Lot Number [id number] Grounds Manager medComp Size 6F x 25 cm Expiration Date 04/04/25 Implant Site Right Internal Jugular/right chest Quantity 1 Last Modified By: WILLIAM Campbell 05/06/22 16:00:24 Radiology Procedure Plan - IR Entry 1 Radiology - Nursing Care Plan Outcome Statement The patient Outcome Statement The patient receives demonstrates knowledge Cont. appropriate of the expected medication(s), safely responses to the administered during the operative/invasive perioperative/invasive procedure., The period., The patient is patient's value system, free from signs and lifestyle, ethnicity, symptoms of injury and culture are caused by extraneous considered, respected, objects (equipment, and incorporated in the instrumentation, perioperative plan of sponges, or sharps)., care., The patient is The patient is free free from signs and from signs and symptoms symptoms of infection., of electrical injury. The patient is free from signs and symptoms of injury related to positioning. Radiology - Action Plan Outcomes Met? Yes Spinneret Cleaner WILLIAM Campbell Completing Procedure Plan Last Modified By: WILLIAM Campbell 05/06/22 16:01:24 Case Comments Added angio light pack to picklist used from bag and tag product wrappers. [facility] RT-R(CV) Refrigeration Specialist Finalized By: Dayna Sweet Document Signatures Signed By: WILLIAM Campbell 05/06/22 16:18 Dayna Sweet 05/07/22 10:[address] [facility] 05-06-2022 Note Date of Service 05/06/22 Chief Complaint left arm cellulitis Subjective 51-year-old female with past medical history of scleroderma in the process of following with rheumatology, neuropathy, hyperlipidemia, chronic back pain follows with pain management, osteoporosis, degenerative joint disease, anemia, tobacco abuse who initially presented to [facility] on 04/29/2022 with complaints of left arm pain and cellulitis. Patient developed an ulcer on her forearm several days prior. Patient was seen by her PCP and prescribed Keflex with worsening symptoms. On arrival to [facility], patient was started on broad-spectrum antibiotics. An MRI of the left forearm was completed which showed diffuse cellulitis of the forearm and hand without rim-enhancing fluid collection to suggest abscess. Mildly enhancing deep intramuscular fluid of the flexor compartment of the forearm. Correlate for signs of deep fascial infectious process versus compartment syndrome. No evidence of osteomyelitis. Several hospitals were contacted for transfer including [facility], [facility], [facility], [facility], [facility]opedics and [facility] who were unable to take the patient. Patient was therefore transferred to [facility] for further evaluation. While at [facility], blood work remained stable, hemoglobin 10.2. BMP initially showed a creatinine of 1.12, which trended down. ESR was elevated at 65, CRP 15.1. Lactic acid unremarkable at 1.0. Vital signs hemodynamically stable, afebrile on room air. Infectious disease and orthopedics are following. Patient seen today. Brother bedside. Patient continues to express her left hand and arm is improving. No issues moving her left hand. She denies numbness/tingling. No CP or SOB. Patient was upset she is not receiving her night time medications on time. Patient also mentions that she wants the PICC line and antibiotics. She is agreeable to following with ID outpatient and will be seen in [place] if her left arm were to worsen. Objective Vitals and Measurements T: 36.7 C (Oral) TMIN: 36.5 C (Oral) TMAX: 36.8 C (Oral) HR: 86(Apical) RR: 18 BP: 134/73 SpO2: 95% Intake and Output 7AM Yesterday to 7AM Today Intake and Output (Last 24 hours) Intake Oral Intake 970.00 Output Stool Count 1.00 Urine Count 3.00 Total Summary Total Intake 970.00 Total Output 0.00 Fluid Balance 970.00 Physical Exam General: No acute distress. Alert and Appropriate Skin: Warm, Dry, left arm gauze dressing dry and intact. Left hand swelling, erythema- improved. HEENT: Head is normocephalic and atraumatic. No lesions. Pupils equal in size. Extraocular movements within normal limits. Nose: No septal deviation. Mouth: Oropharynx mucosa is without lesion. Neck: Supple. No lymphadenopathy, thyromegaly noted. Lungs: Bilaterally clear/diminished breath sounds with no crepitation or wheeze. Unlabored on room air Cardiovascular: Heart is regular rhythm, S1S2, No extra-audible heart tones Abdomen: Abdomen is soft, nontender. Bowel sounds positive all four quadrants. Extremities: No clubbing, cyanosis or edema. Peripheral pulses palpable. No calf tenderness. Adequate peripheral circulation. Neurological: The patient is awake, oriented to time, people and place. Following simple commands, moving all extremities. Weight Dosing Weight: 44.8 kg (05/02/22) Medications Medications (28) Active Scheduled: (16) acidophilus/bulgaris 1g granule packet 1 packet(s), Oral, BID amitriptyline 50 mg tablet 50 mg 1 tab(s), Oral, qHS amLODIPine 5 mg tablet 5 mg 1 tab(s), Oral, qDay atorvastatin 20 mg tablet 20 mg 1 tab(s), Oral, qDay ceFAZolin syringe 2 gram(s) 20 mL, IV Push (INT), q8h cholecalciferol 1250 mcg capsule (Vit D3 50,000 unit(s)) 1,250 mcg 1 cap(s), Oral, qWeek clindamycin vial 900 mg 6 mL, IV Piggyback, q8h Dreft detergent 1 arash, Topical, BID eszopiclone 3 mg tablet 3 mg 1 tab(s), Oral, qHS fenofibrate 48 mg tablet 48 mg 1 tab(s), Oral, qDayM Misc communication order dr luis waiting until keyona arrived in ord, Miscellaneous, qDay Nicoderm patch REMOVAL 1 EA, Miscellaneous, q24h nicotine 21 mg/24 hr ER patch 21 mg 1 patch(es), Transdermal, q24h pantoprazole 40 mg EC tablet 40 mg 1 tab(s), Oral, qDayAC polyethylene glycol 3350 - UD packet 17 gram(s) 15 mL, Oral, qDay tiZANidine 4 mg tablet 8 mg 2 tab(s), Oral, qHS Continuous: (0) PRN: (12) acetaminophen 325 mg Tablet 650 mg 2 tab(s), Oral, q4h acetaminophen 325 mg Tablet 650 mg 2 tab(s), Oral, q4h acetaminophen-OXYcodone 325 mg-5 mg Tablet 1 tab(s), Oral, q4h albuterol - ipratropium 2.5 mg-0.5 mg/3 mL Inhal Nakita UD 3 mL, Inhalation, q4hRT guaifenesin 100 mg/5 mL 120 mL liquid 200 mg 10 mL, Oral, q4h hydroxyzine pamoate 25 mg capsule 25 mg 1 cap(s), Oral, BID loratadine 10 mg Tablet 10 mg 1 tab(s), Oral, qDay melatonin 3 mg tablet 3 mg 1 tab(s), Oral, qHS morphine 2 mg/mL 1 mL syringe 1 mg 0.5 mL, IV Push, q4h ondansetron 2 mg/ 1 mL 2 mL INJ 4 mg 2 mL, IV Push, q4h polyethylene glycol 3350 - UD packet 17 gram(s) 15 mL, Oral, qDay prochlorperazine 10 mg/2 mL vial 5 mg 1 mL, IV Push, q6h Lab Results 05/05 06:47 WBC: 9.2 Hgb: 11.7 L Hct: 34.8 Platelet: 364 Neutrophil %: 74.6 Glucose Level: 88 Sodium Level: 144 Potassium Level: 4.4 BUN: 9.0 Creatinine Lvl (s): 1.00 EKG No qualifying data available. Assessment/Plan 1. Left arm cellulitis with wound 2. Elevated inflammatory markers 3. Scleroderma 4. Chronic neuropathy 5. Chronic anemia. 6. HLD 7. Other comorbidities of osteoporosis, chronic back pain, degenerative joint disease, tobacco abuse Left arm cellulitis with open wound, ESR and CRP elevated on admission. MRI completed at [facility] showed signs of deep fascial infectious process versus compartment syndrome. No evidence of osteomyelitis. Left upper extremity Doppler was negative for DVT. Blood cultures show no growth. Wound culture collected from 04/29/2022 was positive for Staph aureus, group A beta-hemolytic strep, pansensitive. ID following, antibiotics adjusted to Cefazolin and Clindamycin. Orthopedics following, who felt there was low concern for compartment syndrome or necrotizing fasciitis. Recommending local wound care and antibiotics. -Cellulitis improving, patient interested in PICC line and outpatient antibiotics as ID recommended yesterday. Will plan to order PICC today, social work involved for outpatient antibiotic therapy. PT/OT recommending home therapy. Diarrhea, improving. Cdiff negative. CBC/BMP pending for today. Leukocytosis resolved, patient afebrile. Scleroderma, chronic. 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 Chronic neuropathy, continue home medications. HLD, continue statin. Chronic anemia, hgb stable at 11.7. Other comorbidities of osteoporosis, chronic back pain, degenerative joint disease, tobacco abuse. Continue chronic pain regimen. Nicotine patch in place. Plan discussed with patient and patient's brother bedside. Case discussed with Dr. Fleming. This dictation was performed using voice recognition software and may include grammatical and/or spelling errors. Digitally Signed by NEHAL RAYMOND on 05/06/2022 09:43 AM Digitally Signed by NEHAL RAYMOND on 05/06/2022 09:[address] [facility] 05-05-2022 Infectious disease Progress note Date of Service 05/05/2022 Objective Vitals and Measurements T: 36.8 C (Oral) TMIN: 36.6 C (Oral) TMAX: 37.0 C (Oral) HR: 64 RR: 18 BP: 134/77 SpO2: 100% Physical Exam Chart reviewed, patient examined. Patient is alert and oriented x3, appears anxious but FSC, resting in bed with student RN at bedside for AM medications. No c/o NV. Reports no diarrhea since yesterday. Denies SOB, denies cough. Reports ongoing pain to LUE with improvement in pain/swelling/erythema. Reports much right hip pain this AM, increased since admission. No other new complaints this AM, requesting adjustments to her pain medications. Respirations easy and nonlabored, 100% on RA. Patient has remained afebrile for the last 24 hours. ESR 65 CRP 5.1 FOCUSED ASSESSMENT: CVS: Regular S1S2 LUNGS: Clear bilaterally, denies SOB, denies cough ABDOMEN: Rounded, soft, nontender, + bowel sounds, passing gas, diarrhea yesterday SKIN: Upper back rash/skin irritation MALICK-improving with no itching or pain, chest/abdominal skin irritation due to lead stickers-improving INCISIONS/DRESSINGS: LUE gauze dressing wrap clean and intact, right 2nd finger gauze intact EXTREMITIES: LUE dressing & improving swelling and erythema, LUE/LLE underdeveloped extremities, right hip pain LINES/TUBES/DRAINS: RFA IV dressing dry & intact, no drainage or erythema at site CURRENT ANTIBIOTICS: Zosyn 3.375g IV x1 05/02 Rocephin 2g IV Q24h 04/29 - present Vanco 750mg IV Q24h 04/29 - present CULTURE RESULTS/SEBLE: 04/29 Blood Cultures / no growth to date -F 04/29 Wound Culture Aerobic (left arm) -F Few Staphylococcus aureus Light Group A Beta Hemolytic Strep (Strep pyogenes) 05/01 Wound Culture Aerobic (forearm) -F No growth at 48 hours Weight Dosing Weight: 44.8 kg (05/02/22) Medications Medications (26) Active Scheduled: (14) amitriptyline 50 mg tablet 50 mg 1 tab(s), Oral, qHS amLODIPine 5 mg tablet 5 mg 1 tab(s), Oral, qDay atorvastatin 20 mg tablet 20 mg 1 tab(s), Oral, qDay cefTRIAXone IVP syringe 2 gram(s) 20 mL, IV Push (INT), qDay cholecalciferol 1250 mcg capsule (Vit D3 50,000 unit(s)) 1,250 mcg 1 cap(s), Oral, qWeek Keyona detergent 1 arash, Topical, BID eszopiclone 3 mg tablet 3 mg 1 tab(s), Oral, qHS fenofibrate 48 mg tablet 48 mg 1 tab(s), Oral, qDayM [facility] communication order dr luis waiting until keyona arrived in ord, Miscellaneous, qDay Nicoderm patch REMOVAL 1 EA, Miscellaneous, q24h nicotine 21 mg/24 hr ER patch 21 mg 1 patch(es), Transdermal, q24h pantoprazole 40 mg EC tablet 40 mg 1 tab(s), Oral, qDayAC tiZANidine 4 mg tablet 8 mg 2 tab(s), Oral, qHS vancomycin PMX 750 mg 250 mL, IV Piggyback, q24h Continuous: (0) PRN: (12) acetaminophen 325 mg Tablet 650 mg 2 tab(s), Oral, q4h acetaminophen 325 mg Tablet 650 mg 2 tab(s), Oral, q4h acetaminophen-OXYcodone 325 mg-5 mg Tablet 1 tab(s), Oral, q4h albuterol - ipratropium 2.5 mg-0.5 mg/3 mL Inhal Nakita UD 3 mL, Inhalation, q4hRT guaifenesin 100 mg/5 mL 120 mL liquid 200 mg 10 mL, Oral, q4h hydroxyzine pamoate 25 mg capsule 25 mg 1 cap(s), Oral, BID loratadine 10 mg Tablet 10 mg 1 tab(s), Oral, qDay melatonin 3 mg tablet 3 mg 1 tab(s), Oral, qHS morphine 2 mg/mL 1 mL syringe 1 mg 0.5 mL, IV Push, q4h ondansetron 2 mg/ 1 mL 2 mL INJ 4 mg 2 mL, IV Push, q4h polyethylene glycol 3350 - UD packet 17 gram(s) 15 mL, Oral, qDay prochlorperazine 10 mg/2 mL vial 5 mg 1 mL, IV Push, q6h Lab Results 05/05 06:47 WBC: 9.2 Hgb: 11.7 L Hct: 34.8 Platelet: 364 Neutrophil %: 74.6 Glucose Level: 88 Sodium Level: 144 Potassium Level: 4.4 BUN: 9.0 Creatinine Lvl (s): 1.00 05/04 04:41 WBC: 8.7 Hgb: 11.4 L Hct: 33.8 L Platelet: 366 Neutrophil %: 75.3 H Glucose Level: 81 Sodium Level: 145 Potassium Level: 3.6 BUN: 9.0 Creatinine Lvl (s): 0.90 Imaging Results and Diagnostics No new results at this time Problem List History of scleroderma Left arm pain and cellulitis Failed outpatient antibiotic therapy Digitally Signed by Alexandria Morel RN on 05/05/2022 08:[address] [facility] 05-05-2022 Infectious disease Progress note Date of Service 05/05/2022 Objective Vitals and Measurements T: 36.8 C (Oral) TMIN: 36.6 C (Oral) TMAX: 37.0 C (Oral) HR: 64 RR: 18 BP: 134/77 SpO2: 100% Physical Exam Chart reviewed, patient examined. Patient is alert and oriented x3, appears anxious but FSC, resting in bed with student RN at bedside for AM medications. No c/o NV. Reports no diarrhea since yesterday. Denies SOB, denies cough. Reports ongoing pain to LUE with improvement in pain/swelling/erythema. Reports much right hip pain this AM, increased since admission. No other new complaints this AM, requesting adjustments to her pain medications. Respirations easy and nonlabored, 100% on RA. Patient has remained afebrile for the last 24 hours. ESR 65 CRP 5.1 FOCUSED ASSESSMENT: CVS: Regular S1S2 LUNGS: Clear bilaterally, denies SOB, denies cough ABDOMEN: Rounded, soft, nontender, + bowel sounds, passing gas, diarrhea yesterday SKIN: Upper back rash/skin irritation KITMAN-improving with no itching or pain, chest/abdominal skin irritation due to lead stickers-improving INCISIONS/DRESSINGS: LUE gauze dressing wrap clean and intact, right 2nd finger gauze intact EXTREMITIES: LUE dressing & improving swelling and erythema, LUE/LLE underdeveloped extremities, right hip pain LINES/TUBES/DRAINS: RFA IV dressing dry & intact, no drainage or erythema at site CURRENT ANTIBIOTICS: Zosyn 3.375g IV x1 05/02 Rocephin 2g IV Q24h 04/29 - present Vanco 750mg IV Q24h 04/29 - present CULTURE RESULTS/SEBLE: 04/29 Blood Cultures 03/19 no growth to date -F 04/29 Wound Culture Aerobic (left arm) -F Few Staphylococcus aureus Light Group A Beta Hemolytic Strep (Strep pyogenes) 05/01 Wound Culture Aerobic (forearm) -F No growth at 48 hours Weight Dosing Weight: 44.8 kg (05/02/22) Medications Medications (26) Active Scheduled: (14) amitriptyline 50 mg tablet 50 mg 1 tab(s), Oral, qHS amLODIPine 5 mg tablet 5 mg 1 tab(s), Oral, qDay atorvastatin 20 mg tablet 20 mg 1 tab(s), Oral, qDay cefTRIAXone IVP syringe 2 gram(s) 20 mL, IV Push (INT), qDay cholecalciferol 1250 mcg capsule (Vit D3 50,000 unit(s)) 1,250 mcg 1 cap(s), Oral, qWeek Dreft detergent 1 arash, Topical, BID eszopiclone 3 mg tablet 3 mg 1 tab(s), Oral, qHS fenofibrate 48 mg tablet 48 mg 1 tab(s), Oral, qDayM [facility] communication order dr luis waiting until keyona arrived in ord, Miscellaneous, qDay Nicoderm patch REMOVAL 1 EA, Miscellaneous, q24h nicotine 21 mg/24 hr ER patch 21 mg 1 patch(es), Transdermal, q24h pantoprazole 40 mg EC tablet 40 mg 1 tab(s), Oral, qDayAC tiZANidine 4 mg tablet 8 mg 2 tab(s), Oral, qHS vancomycin PMX 750 mg 250 mL, IV Piggyback, q24h Continuous: (0) PRN: (12) acetaminophen 325 mg Tablet 650 mg 2 tab(s), Oral, q4h acetaminophen 325 mg Tablet 650 mg 2 tab(s), Oral, q4h acetaminophen-OXYcodone 325 mg-5 mg Tablet 1 tab(s), Oral, q4h albuterol - ipratropium 2.5 mg-0.5 mg/3 mL Inhal Nakita UD 3 mL, Inhalation, q4hRT guaifenesin 100 mg/5 mL 120 mL liquid 200 mg 10 mL, Oral, q4h hydroxyzine pamoate 25 mg capsule 25 mg 1 cap(s), Oral, BID loratadine 10 mg Tablet 10 mg 1 tab(s), Oral, qDay melatonin 3 mg tablet 3 mg 1 tab(s), Oral, qHS morphine 2 mg/mL 1 mL syringe 1 mg 0.5 mL, IV Push, q4h ondansetron 2 mg/ 1 mL 2 mL INJ 4 mg 2 mL, IV Push, q4h polyethylene glycol 3350 - UD packet 17 gram(s) 15 mL, Oral, qDay prochlorperazine 10 mg/2 mL vial 5 mg 1 mL, IV Push, q6h Lab Results 05/05 06:47 WBC: 9.2 Hgb: 11.7 L Hct: 34.8 Platelet: 364 Neutrophil %: 74.6 Glucose Level: 88 Sodium Level: 144 Potassium Level: 4.4 BUN: 9.0 Creatinine Lvl (s): 1.00 05/04 04:41 WBC: 8.7 Hgb: 11.4 L Hct: 33.8 L Platelet: 366 Neutrophil %: 75.3 H Glucose Level: 81 Sodium Level: 145 Potassium Level: 3.6 BUN: 9.0 Creatinine Lvl (s): 0.90 Imaging Results and Diagnostics No new results at this time Problem List History of scleroderma Left arm pain and cellulitis Failed outpatient antibiotic therapy Digitally Signed by Alexandria Morel RN on 05/05/2022 08:[address] [facility] 05-05-2022 Note Date of Service 05/05/22 Chief Complaint Left arm cellulitis Subjective 51-year-old female with past medical history of scleroderma in the process of following with rheumatology, neuropathy, hyperlipidemia, chronic back pain follows with pain management, osteoporosis, degenerative joint disease, anemia, tobacco abuse who initially presented to [facility] on 04/29/2022 with complaints of left arm pain and cellulitis. Patient developed an ulcer on her forearm several days prior. Patient was seen by her PCP and prescribed Keflex with worsening symptoms. On arrival to [facility], patient was started on broad-spectrum antibiotics. An MRI of the left forearm was completed which showed diffuse cellulitis of the forearm and hand without rim-enhancing fluid collection to suggest abscess. Mildly enhancing deep intramuscular fluid of the flexor compartment of the forearm. Correlate for signs of deep fascial infectious process versus compartment syndrome. No evidence of osteomyelitis. Several hospitals were contacted for transfer including [facility], [facility], [facility], [facility], [facility]opedics and [facility] who were unable to take the patient. Patient was therefore transferred to [facility] for further evaluation. While at [facility], blood work remained stable, hemoglobin 10.2. BMP initially showed a creatinine of 1.12, which trended down. ESR was elevated at 65, CRP 15.1. Lactic acid unremarkable at 1.0. Vital signs hemodynamically stable, afebrile on room air. Infectious disease and orthopedics are following. Patient seen today. She states her left arm hand and arm continues to improve in regards to swelling and erythema. LUE dressing was removed at bedside and looked better. No complaints of chest pain or shortness of breath. She states her diarrhea is improving, her stool was more formed today. Patient is awaiting PT evaluation. Objective Vitals and Measurements T: 36.8 C (Oral) TMIN: 36.6 C (Oral) TMAX: 37.0 C (Oral) HR: 88(Apical) RR: 18 BP: 134/77 SpO2: 100% Intake and Output 7AM Yesterday to 7AM Today Intake and Output (Last 24 hours) Intake Oral Intake 600.00 Output Stool Count 0.00 Urine Count 1.00 Total Summary Total Intake 600.00 Total Output 0.00 Fluid Balance 600.00 Physical Exam General: No acute distress. Alert and Appropriate Skin: Warm, Dry, left arm gauze dressing dry and intact. Left hand swelling, erythema- improved. HEENT: Head is normocephalic and atraumatic. No lesions. Pupils equal in size. Extraocular movements within normal limits. Nose: No septal deviation. Mouth: Oropharynx mucosa is without lesion. Neck: Supple. No lymphadenopathy, thyromegaly noted. Lungs: Bilaterally clear/diminished breath sounds with no crepitation or wheeze. Unlabored on room air Cardiovascular: Heart is regular rhythm, S1S2, No extra-audible heart tones Abdomen: Abdomen is soft, nontender. Bowel sounds positive all four quadrants. Extremities: No clubbing, cyanosis or edema. Peripheral pulses palpable. No calf tenderness. Adequate peripheral circulation. Neurological: The patient is awake, oriented to time, people and place. Following simple commands, moving all extremities. Weight Dosing Weight: 44.8 kg (05/02/22) Medications Medications (26) Active Scheduled: (14) amitriptyline 50 mg tablet 50 mg 1 tab(s), Oral, qHS amLODIPine 5 mg tablet 5 mg 1 tab(s), Oral, qDay atorvastatin 20 mg tablet 20 mg 1 tab(s), Oral, qDay cefTRIAXone IVP syringe 2 gram(s) 20 mL, IV Push (INT), qDay cholecalciferol 1250 mcg capsule (Vit D3 50,000 unit(s)) 1,250 mcg 1 cap(s), Oral, qWeek Dre detergent 1 arash, Topical, BID eszopiclone 3 mg tablet 3 mg 1 tab(s), Oral, qHS fenofibrate 48 mg tablet 48 mg 1 tab(s), Oral, qDayM [facility] communication order dr luis waiting until keyona arrived in ord, Miscellaneous, qDay Nicoderm patch REMOVAL 1 EA, Miscellaneous, q24h nicotine 21 mg/24 hr ER patch 21 mg 1 patch(es), Transdermal, q24h pantoprazole 40 mg EC tablet 40 mg 1 tab(s), Oral, qDayAC tiZANidine 4 mg tablet 8 mg 2 tab(s), Oral, qHS vancomycin PMX 750 mg 250 mL, IV Piggyback, q24h Continuous: (0) PRN: (12) acetaminophen 325 mg Tablet 650 mg 2 tab(s), Oral, q4h acetaminophen 325 mg Tablet 650 mg 2 tab(s), Oral, q4h acetaminophen-OXYcodone 325 mg-5 mg Tablet 1 tab(s), Oral, q4h albuterol - ipratropium 2.5 mg-0.5 mg/3 mL Inhal Nakita UD 3 mL, Inhalation, q4hRT guaifenesin 100 mg/5 mL 120 mL liquid 200 mg 10 mL, Oral, q4h hydroxyzine pamoate 25 mg capsule 25 mg 1 cap(s), Oral, BID loratadine 10 mg Tablet 10 mg 1 tab(s), Oral, qDay melatonin 3 mg tablet 3 mg 1 tab(s), Oral, qHS morphine 2 mg/mL 1 mL syringe 1 mg 0.5 mL, IV Push, q4h ondansetron 2 mg/ 1 mL 2 mL INJ 4 mg 2 mL, IV Push, q4h polyethylene glycol 3350 - UD packet 17 gram(s) 15 mL, Oral, qDay prochlorperazine 10 mg/2 mL vial 5 mg 1 mL, IV Push, q6h Lab Results 05/05 06:47 WBC: 9.2 Hgb: 11.7 L Hct: 34.8 Platelet: 364 Neutrophil %: 74.6 Glucose Level: 88 Sodium Level: 144 Potassium Level: 4.4 BUN: 9.0 Creatinine Lvl (s): 1.00 05/04 04:41 WBC: 8.7 Hgb: 11.4 L Hct: 33.8 L Platelet: 366 Neutrophil %: 75.3 H Glucose Level: 81 Sodium Level: 145 Potassium Level: 3.6 BUN: 9.0 Creatinine Lvl (s): 0.90 EKG No qualifying data available. Assessment/Plan 1. Left arm cellulitis with wound 2. Elevated inflammatory markers 3. Scleroderma 4. Chronic neuropathy 5. Chronic anemia. 6. HLD 7. Other comorbidities of osteoporosis, chronic back pain, degenerative joint disease, tobacco abuse Left arm cellulitis with open wound, ESR and CRP elevated on admission. MRI completed at [facility] showed signs of deep fascial infectious process versus compartment syndrome. No evidence of osteomyelitis. Left upper extremity Doppler was negative for DVT. Blood cultures show no growth. Wound culture collected from 04/29/2022 was positive for Staph aureus, group A beta-hemolytic strep, pansensitive. ID following, remains on Vancomycin and Rocephin. Orthopedics following, who felt there was low concern for compartment syndrome or necrotizing fasciitis. Recommending local wound care and antibiotics. Cellulitis improving, will await final ID plan. PT evaluation pending. OT recommending home. Diarrhea, improving. Cdiff PCR pending. Additional blood work stable. Leukocytosis resolved, patient afebrile. Scleroderma, chronic. 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 Chronic neuropathy, continue home medications. HLD, continue statin. Chronic anemia, hgb stable at 11.7. Other comorbidities of osteoporosis, chronic back pain, degenerative joint disease, tobacco abuse. Continue chronic pain regimen. Nicotine patch in place. Plan discussed with patient. Case discussed with Dr. Fleming. This dictation was performed using voice recognition software and may include grammatical and/or spelling errors. Digitally Signed by NEHAL RAYMOND on 05/05/2022 10:[address] [facility] 05-05-2022 Infectious disease Progress note Date of Service 05/05/2022 Objective Vitals and Measurements T: 36.8 C (Oral) TMIN: 36.6 C (Oral) TMAX: 37.0 C (Oral) HR: 64 RR: 18 BP: 134/77 SpO2: 100% Physical Exam Chart reviewed, patient examined. Patient is alert and oriented x3, appears anxious but FSC, resting in bed with student RN at bedside for AM medications. No c/o NV. Reports no diarrhea since yesterday. Denies SOB, denies cough. Reports ongoing pain to LUE with improvement in pain/swelling/erythema. Reports much right hip pain this AM, increased since admission. No other new complaints this AM, requesting adjustments to her pain medications. Respirations easy and nonlabored, 100% on RA. Patient has remained afebrile for the last 24 hours. ESR 65 CRP 5.1 FOCUSED ASSESSMENT: CVS: Regular S1S2 LUNGS: Clear bilaterally, denies SOB, denies cough ABDOMEN: Rounded, soft, nontender, + bowel sounds, passing gas, diarrhea yesterday SKIN: Upper back rash/skin irritation KITMAN-improving with no itching or pain, chest/abdominal skin irritation due to lead stickers-improving INCISIONS/DRESSINGS: LUE gauze dressing wrap clean and intact, right 2nd finger gauze intact EXTREMITIES: LUE dressing & improving swelling and erythema, LUE/LLE underdeveloped extremities, right hip pain LINES/TUBES/DRAINS: RFA IV dressing dry & intact, no drainage or erythema at site CURRENT ANTIBIOTICS: Zosyn 3.375g IV x1 05/02 Rocephin 2g IV Q24h 04/29 - present Vanco 750mg IV Q24h 04/29 - present CULTURE RESULTS/SEBLE: 04/29 Blood Cultures 03/19 no growth to date -F 04/29 Wound Culture Aerobic (left arm) -F Few Staphylococcus aureus Light Group A Beta Hemolytic Strep (Strep pyogenes) 05/01 Wound Culture Aerobic (forearm) -F No growth at 48 hours Weight Dosing Weight: 44.8 kg (05/02/22) Medications Medications (26) Active Scheduled: (14) amitriptyline 50 mg tablet 50 mg 1 tab(s), Oral, qHS amLODIPine 5 mg tablet 5 mg 1 tab(s), Oral, qDay atorvastatin 20 mg tablet 20 mg 1 tab(s), Oral, qDay cefTRIAXone IVP syringe 2 gram(s) 20 mL, IV Push (INT), qDay cholecalciferol 1250 mcg capsule (Vit D3 50,000 unit(s)) 1,250 mcg 1 cap(s), Oral, qWeek Dreft detergent 1 arash, Topical, BID eszopiclone 3 mg tablet 3 mg 1 tab(s), Oral, qHS fenofibrate 48 mg tablet 48 mg 1 tab(s), Oral, qDayM [facility] communication order dr luis waiting until keyona arrived in ord, Miscellaneous, qDay Nicoderm patch REMOVAL 1 EA, Miscellaneous, q24h nicotine 21 mg/24 hr ER patch 21 mg 1 patch(es), Transdermal, q24h pantoprazole 40 mg EC tablet 40 mg 1 tab(s), Oral, qDayAC tiZANidine 4 mg tablet 8 mg 2 tab(s), Oral, qHS vancomycin PMX 750 mg 250 mL, IV Piggyback, q24h Continuous: (0) PRN: (12) acetaminophen 325 mg Tablet 650 mg 2 tab(s), Oral, q4h acetaminophen 325 mg Tablet 650 mg 2 tab(s), Oral, q4h acetaminophen-OXYcodone 325 mg-5 mg Tablet 1 tab(s), Oral, q4h albuterol - ipratropium 2.5 mg-0.5 mg/3 mL Inhal Nakita UD 3 mL, Inhalation, q4hRT guaifenesin 100 mg/5 mL 120 mL liquid 200 mg 10 mL, Oral, q4h hydroxyzine pamoate 25 mg capsule 25 mg 1 cap(s), Oral, BID loratadine 10 mg Tablet 10 mg 1 tab(s), Oral, qDay melatonin 3 mg tablet 3 mg 1 tab(s), Oral, qHS morphine 2 mg/mL 1 mL syringe 1 mg 0.5 mL, IV Push, q4h ondansetron 2 mg/ 1 mL 2 mL INJ 4 mg 2 mL, IV Push, q4h polyethylene glycol 3350 - UD packet 17 gram(s) 15 mL, Oral, qDay prochlorperazine 10 mg/2 mL vial 5 mg 1 mL, IV Push, q6h Lab Results 05/05 06:47 WBC: 9.2 Hgb: 11.7 L Hct: 34.8 Platelet: 364 Neutrophil %: 74.6 Glucose Level: 88 Sodium Level: 144 Potassium Level: 4.4 BUN: 9.0 Creatinine Lvl (s): 1.00 05/04 04:41 WBC: 8.7 Hgb: 11.4 L Hct: 33.8 L Platelet: 366 Neutrophil %: 75.3 H Glucose Level: 81 Sodium Level: 145 Potassium Level: 3.6 BUN: 9.0 Creatinine Lvl (s): 0.90 Imaging Results and Diagnostics No new results at this time Problem List History of scleroderma Left arm pain and cellulitis Failed outpatient antibiotic therapy Digitally Signed by Alexandria Morel RN on 05/05/2022 08:[address] [facility] 05-04-2022 Note . MICRO - Microbiology PROCEDURE: Blood Culture (bacterial) [*1] SOURCE: Blood BODY SITE: COLLECTED DATE/TIME: 04/29/2022 14:00 EDT RECEIVED DATE/TIME: 04/29/2022 20:16 EDT START DATE/TIME: 04/29/2022 20:16 EDT FREE TEXT SOURCE: FINAL REPORTS Final Report [] Verified Date/Time/Personnel: 05/04/2022 20:59 EDT Blood Culture: No Growth at 5 days. PRELIMINARY REPORTS Preliminary Report [] Verified Date/Time/Personnel: 04/29/2022 20:59 EDT Culture has been received in lab and is no growth to date. Routine cultures are held for 5 days. Performing Locations *1: This test was performed at: [address], [facility] , [facility] ([place]) 05-04-2022 Note . MICRO - Microbiology PROCEDURE: Blood Culture (bacterial) [*1] SOURCE: Blood BODY SITE: COLLECTED DATE/TIME: 04/29/2022 14:00 EDT RECEIVED DATE/TIME: 04/29/2022 20:16 EDT START DATE/TIME: 04/29/2022 20:16 EDT FREE TEXT SOURCE: FINAL REPORTS Final Report [] Verified Date/Time/Personnel: 05/04/2022 20:59 EDT Blood Culture: No Growth at 5 days. PRELIMINARY REPORTS Preliminary Report [] Verified Date/Time/Personnel: 04/29/2022 20:59 EDT Culture has been received in lab and is no growth to date. Routine cultures are held for 5 days. Performing Locations *1: This test was performed at: [address], [address] [place] [address] ([place]) 05-04-2022 Infectious disease Progress note Date of Service 05/04/2022 Objective Vitals and Measurements T: 36.7 C (Oral) TMIN: 36.4 C (Oral) TMAX: 36.8 C (Oral) HR: 81 RR: 18 BP: 139/71 SpO2: 98% Physical Exam Chart reviewed, patient examined. Patient is alert and oriented x3, appears mildly anxious but FSC, resting in bed with brother at bedside. No c/o NV. Reports diarrhea that began during hospital stay. Denies SOB, denies cough. Reports ongoing pain to LUE, although does report improvement overall in her pain and swelling. No other new complaints this AM, requesting heart monitor be removed due to sensitive skin as stickers are causing her skin irritation. Respirations easy and nonlabored, 98% on RA. Patient has remained afebrile for the last 24 hours. ESR 65 CRP 5.1 FOCUSED ASSESSMENT: CVS: Regular S1S2, NSR on monitor LUNGS: Clear bilaterally, denies SOB, denies cough ABDOMEN: Nondistended, rounded, soft, nontender, + bowel sounds, passing gas, diarrhea SKIN: Upper back rash/skin irritation MALICK-patient denies itching/pain, chest/abdominal skin irritation due to lead stickers INCISIONS/DRESSINGS: LUE gauze dressing wrap clean and intact EXTREMITIES: LUE dressing, +1 edema to left hand with erythema noted, LUE/LLE underdeveloped extremities LINES/TUBES/DRAINS: RFA IV dressing dry & intact, no drainage or erythema at site CURRENT ANTIBIOTICS: Zosyn 3.375g IV x1 05/02 Rocephin 2g IV Q24h 04/29 - present Vanco 750mg IV Q24h 04/29 - present CULTURE RESULTS/SEBLE: 04/29 Blood Cultures 03/19 no growth to date -P 04/29 Wound Culture Aerobic (left arm) -F Few Staphylococcus aureus Light Group A Beta Hemolytic Strep (Strep pyogenes) 05/01 Wound Culture Aerobic (forearm) -F No growth at 48 hours Weight Dosing Weight: 44.8 kg (05/02/22) Medications Medications (27) Active Scheduled: (15) amitriptyline 50 mg tablet 50 mg 1 tab(s), Oral, qHS amLODIPine 5 mg tablet 5 mg 1 tab(s), Oral, qDay atorvastatin 20 mg tablet 20 mg 1 tab(s), Oral, qDay cefTRIAXone IVP syringe 2 gram(s) 20 mL, IV Push (INT), qDay cholecalciferol 1250 mcg capsule (Vit D3 50,000 unit(s)) 1,250 mcg 1 cap(s), Oral, qWeek Dreft detergent 1 arash, Topical, BID eszopiclone 3 mg tablet 3 mg 1 tab(s), Oral, qHS fenofibrate 48 mg tablet 48 mg 1 tab(s), Oral, qDayM [facility] communication order dr luis waiting until keyona arrived in ord, Miscellaneous, qDay Nicoderm patch REMOVAL 1 EA, Miscellaneous, q24h nicotine 21 mg/24 hr ER patch 21 mg 1 patch(es), Transdermal, q24h pantoprazole 40 mg EC tablet 40 mg 1 tab(s), Oral, qDayAC tiZANidine 4 mg tablet 8 mg 2 tab(s), Oral, qHS vancomycin PMX 750 mg 250 mL, IV Piggyback, q24h vancomycin trough level 1 EA, Miscellaneous, q12hr Continuous: (0) PRN: (12) acetaminophen 325 mg Tablet 650 mg 2 tab(s), Oral, q4h acetaminophen 325 mg Tablet 650 mg 2 tab(s), Oral, q4h acetaminophen-OXYcodone 325 mg-5 mg Tablet 1 tab(s), Oral, q4h albuterol - ipratropium 2.5 mg-0.5 mg/3 mL Inhal Nakita UD 3 mL, Inhalation, q4hRT guaifenesin 100 mg/5 mL 120 mL liquid 200 mg 10 mL, Oral, q4h hydroxyzine pamoate 25 mg capsule 25 mg 1 cap(s), Oral, BID loratadine 10 mg Tablet 10 mg 1 tab(s), Oral, qDay melatonin 3 mg tablet 3 mg 1 tab(s), Oral, qHS morphine 2 mg/mL 1 mL syringe 1 mg 0.5 mL, IV Push, q4h ondansetron 2 mg/ 1 mL 2 mL INJ 4 mg 2 mL, IV Push, q4h polyethylene glycol 3350 - UD packet 17 gram(s) 15 mL, Oral, qDay prochlorperazine 10 mg/2 mL vial 5 mg 1 mL, IV Push, q6h Lab Results 05/04 04:41 WBC: 8.7 Hgb: 11.4 L Hct: 33.8 L Platelet: 366 Neutrophil %: 75.3 H Glucose Level: 81 Sodium Level: 145 Potassium Level: 3.6 BUN: 9.0 Creatinine Lvl (s): 0.90 05/03 05:03 WBC: 7.2 Hgb: 12.3 Hct: 37.4 Platelet: 203 Neutrophil %: 68.8 Glucose Level: 107 Sodium Level: 141 Potassium Level: 4.2 BUN: 7.0 L Creatinine Lvl (s): 0.87 Imaging Results and Diagnostics 05/01 Venous Doppler LUE Summary: Negative for deep vein thrombosis. Problem List 1. Cellulitis of the left forearm, possible abscess 2. Concern for compartment syndrome 3. Elevated ESR and CRP 4. Hx of scleroderma and underdeveloped left arm/leg Digitally Signed by Alexandria Morel RN on 05/04/2022 01:[address] [facility] 05-04-2022 Infectious disease Progress note Date of Service 05/04/2022 Objective Vitals and Measurements T: 36.7 C (Oral) TMIN: 36.4 C (Oral) TMAX: 36.8 C (Oral) HR: 81 RR: 18 BP: 139/71 SpO2: 98% Physical Exam Chart reviewed, patient examined. Patient is alert and oriented x3, appears mildly anxious but FSC, resting in bed with brother at bedside. No c/o NV. Reports diarrhea that began during hospital stay. Denies SOB, denies cough. Reports ongoing pain to LUE, although does report improvement overall in her pain and swelling. No other new complaints this AM, requesting heart monitor be removed due to sensitive skin as stickers are causing her skin irritation. Respirations easy and nonlabored, 98% on RA. Patient has remained afebrile for the last 24 hours. ESR 65 CRP 5.1 FOCUSED ASSESSMENT: CVS: Regular S1S2, NSR on monitor LUNGS: Clear bilaterally, denies SOB, denies cough ABDOMEN: Nondistended, rounded, soft, nontender, + bowel sounds, passing gas, diarrhea SKIN: Upper back rash/skin irritation KITMAN-patient denies itching/pain, chest/abdominal skin irritation due to lead stickers INCISIONS/DRESSINGS: LUE gauze dressing wrap clean and intact EXTREMITIES: LUE dressing, +1 edema to left hand with erythema noted, LUE/LLE underdeveloped extremities LINES/TUBES/DRAINS: RFA IV dressing dry & intact, no drainage or erythema at site CURRENT ANTIBIOTICS: Zosyn 3.375g IV x1 05/02 Rocephin 2g IV Q24h 04/29 - present Vanco 750mg IV Q24h 04/29 - present CULTURE RESULTS/SEBLE: 04/29 Blood Cultures 03/19 no growth to date -P 04/29 Wound Culture Aerobic (left arm) -F Few Staphylococcus aureus Light Group A Beta Hemolytic Strep (Strep pyogenes) 05/01 Wound Culture Aerobic (forearm) -F No growth at 48 hours Weight Dosing Weight: 44.8 kg (05/02/22) Medications Medications (27) Active Scheduled: (15) amitriptyline 50 mg tablet 50 mg 1 tab(s), Oral, qHS amLODIPine 5 mg tablet 5 mg 1 tab(s), Oral, qDay atorvastatin 20 mg tablet 20 mg 1 tab(s), Oral, qDay cefTRIAXone IVP syringe 2 gram(s) 20 mL, IV Push (INT), qDay cholecalciferol 1250 mcg capsule (Vit D3 50,000 unit(s)) 1,250 mcg 1 cap(s), Oral, qWeek Dreft detergent 1 arash, Topical, BID eszopiclone 3 mg tablet 3 mg 1 tab(s), Oral, qHS fenofibrate 48 mg tablet 48 mg 1 tab(s), Oral, qDayM Misc communication order dr luis waiting until keyona arrived in ord, Miscellaneous, qDay Nicoderm patch REMOVAL 1 EA, Miscellaneous, q24h nicotine 21 mg/24 hr ER patch 21 mg 1 patch(es), Transdermal, q24h pantoprazole 40 mg EC tablet 40 mg 1 tab(s), Oral, qDayAC tiZANidine 4 mg tablet 8 mg 2 tab(s), Oral, qHS vancomycin PMX 750 mg 250 mL, IV Piggyback, q24h vancomycin trough level 1 EA, Miscellaneous, q12hr Continuous: (0) PRN: (12) acetaminophen 325 mg Tablet 650 mg 2 tab(s), Oral, q4h acetaminophen 325 mg Tablet 650 mg 2 tab(s), Oral, q4h acetaminophen-OXYcodone 325 mg-5 mg Tablet 1 tab(s), Oral, q4h albuterol - ipratropium 2.5 mg-0.5 mg/3 mL Inhal Nakita UD 3 mL, Inhalation, q4hRT guaifenesin 100 mg/5 mL 120 mL liquid 200 mg 10 mL, Oral, q4h hydroxyzine pamoate 25 mg capsule 25 mg 1 cap(s), Oral, BID loratadine 10 mg Tablet 10 mg 1 tab(s), Oral, qDay melatonin 3 mg tablet 3 mg 1 tab(s), Oral, qHS morphine 2 mg/mL 1 mL syringe 1 mg 0.5 mL, IV Push, q4h ondansetron 2 mg/ 1 mL 2 mL INJ 4 mg 2 mL, IV Push, q4h polyethylene glycol 3350 - UD packet 17 gram(s) 15 mL, Oral, qDay prochlorperazine 10 mg/2 mL vial 5 mg 1 mL, IV Push, q6h Lab Results 05/04 04:41 WBC: 8.7 Hgb: 11.4 L Hct: 33.8 L Platelet: 366 Neutrophil %: 75.3 H Glucose Level: 81 Sodium Level: 145 Potassium Level: 3.6 BUN: 9.0 Creatinine Lvl (s): 0.90 05/03 05:03 WBC: 7.2 Hgb: 12.3 Hct: 37.4 Platelet: 203 Neutrophil %: 68.8 Glucose Level: 107 Sodium Level: 141 Potassium Level: 4.2 BUN: 7.0 L Creatinine Lvl (s): 0.87 Imaging Results and Diagnostics 05/01 Venous Doppler LUE Summary: Negative for deep vein thrombosis. Problem List 1. Cellulitis of the left forearm, possible abscess 2. Concern for compartment syndrome 3. Elevated ESR and CRP 4. Hx of scleroderma and underdeveloped left arm/leg Digitally Signed by Alexandria Morel RN on 05/04/2022 01:[address] [facility] 05-04-2022 Orthopaedic surgery Consult note Date of Service 05/04/22 Subjective Patient seen and examined at the bedside this morning. No acute events overnight. She states that the swelling in her hand on the left continues to improve. She denies numbness, tingling, weakness. She denies fever, chills. Complains of right lateral hip pain that she states is similar to her baseline trochanteric bursitis. Objective Vitals and Measurements T: 36.6 C (Oral) TMIN: 36.4 C (Oral) TMAX: 36.8 C (Oral) HR: 91 HR: 93(Apical) RR: 18 BP: 146/75 SpO2: 98% Intake and Output 7AM Yesterday to 7AM Today Intake and Output (Last 24 hours) Intake Oral Intake 710.00 Output Stool Count 1.00 Urine Count 5.00 Total Summary Total Intake 710.00 Total Output 0.00 Fluid Balance 710.00 Physical Exam General: nad, lying in bed on her right side. Left upper extremity: dressing in place without strikethrough. The exposed hand is markedly less swollen than prior exam. Thumb pinch strong. No tenderness to gentle palpation of LUE. Hand warm and well perfused, SILT throughout Weight Dosing Weight: 44.8 kg (05/02/22) Medications Medications (28) Active Scheduled: (16) amitriptyline 50 mg tablet 50 mg 1 tab(s), Oral, qHS amLODIPine 5 mg tablet 5 mg 1 tab(s), Oral, qDay atorvastatin 20 mg tablet 20 mg 1 tab(s), Oral, qDay cefTRIAXone IVP syringe 2 gram(s) 20 mL, IV Push (INT), qDay cholecalciferol 1250 mcg capsule (Vit D3 50,000 unit(s)) 1,250 mcg 1 cap(s), Oral, qWeek Dreft detergent 1 arash, Topical, BID eszopiclone 3 mg tablet 3 mg 1 tab(s), Oral, qHS fenofibrate 48 mg tablet 48 mg 1 tab(s), Oral, qDayM Misc communication order dr luis waiting until keyona arrived in ord, Miscellaneous, qDay Nicoderm patch REMOVAL 1 EA, Miscellaneous, q24h Nicoderm patch REMOVAL 1 EA, Miscellaneous, Once nicotine 21 mg/24 hr ER patch 21 mg 1 patch(es), Transdermal, q24h pantoprazole 40 mg EC tablet 40 mg 1 tab(s), Oral, qDayAC tiZANidine 4 mg tablet 8 mg 2 tab(s), Oral, qHS vancomycin PMX 750 mg 250 mL, IV Piggyback, q24h vancomycin trough level 1 EA, Miscellaneous, q12hr Continuous: (0) PRN: (12) acetaminophen 325 mg Tablet 650 mg 2 tab(s), Oral, q4h acetaminophen 325 mg Tablet 650 mg 2 tab(s), Oral, q4h acetaminophen-OXYcodone 325 mg-5 mg Tablet 1 tab(s), Oral, q4h albuterol - ipratropium 2.5 mg-0.5 mg/3 mL Inhal Nakita UD 3 mL, Inhalation, q4hRT guaifenesin 100 mg/5 mL 120 mL liquid 200 mg 10 mL, Oral, q4h hydroxyzine pamoate 25 mg capsule 25 mg 1 cap(s), Oral, BID loratadine 10 mg Tablet 10 mg 1 tab(s), Oral, qDay melatonin 3 mg tablet 3 mg 1 tab(s), Oral, qHS morphine 2 mg/mL 1 mL syringe 1 mg 0.5 mL, IV Push, q4h ondansetron 2 mg/ 1 mL 2 mL INJ 4 mg 2 mL, IV Push, q4h polyethylene glycol 3350 - UD packet 17 gram(s) 15 mL, Oral, qDay prochlorperazine 10 mg/2 mL vial 5 mg 1 mL, IV Push, q6h Lab Results 05/04 04:41 WBC: 8.7 Hgb: 11.4 L Hct: 33.8 L Platelet: 366 Neutrophil %: 75.3 H Glucose Level: 81 Sodium Level: 145 Potassium Level: 3.6 BUN: 9.0 Creatinine Lvl (s): 0.90 05/03 05:03 WBC: 7.2 Hgb: 12.3 Hct: 37.4 Platelet: 203 Neutrophil %: 68.8 Glucose Level: 107 Sodium Level: 141 Potassium Level: 4.2 BUN: 7.0 L Creatinine Lvl (s): 0.87 EKG No qualifying data available. Assessment/Plan Insomnia Orders: Dreft detergent, Start: 05/03/22 14:51:00 EDT, Dose = 1 arash, Soap, Topical, BID, Please cover wound(s) with sterile gauze dressing following soaks, 0, 05/03/22 13:18:00 EDT 51 yo F with PMH scleroderma presents with L forearm soft tissue infection. No discrete collection noted. Low concern for compartment syndrome or necrotizing fasciitis at this time. -Elevate the L arm -Perform local wound care as needed. Dreft soaks 20 mins twice daily. Re-dress with sterile gauze, kerlix -continue abx per ID -There is a suggestion of possibly a small amount of fluid, what could be reasonable is to consider interventional radiology aspiration of this fluid. Please see attending addendum on 05/02 consult note for recommendations should her infection worsen -She may follow up with her Ortho doc in [place] -Discussed with attending There is no further orthopedic intervention indicated at this time. Please do not hesitate to reach out or re-consult for any additional concerns or questions. Digitally Signed by JOSE ECHEVARRIA MD on 05/04/2022 08:[address] [facility] 05-04-2022 Orthopaedic surgery Progress note Date of Service 05/03/22 Subjective Patient seen and examined at the bedside this morning. No acute events overnight. She states that the swelling in her hand on the left has improved. She denies numbness, tingling, weakness. She denies fever, chills. Objective Vitals and Measurements T: 36.8 C (Oral) TMIN: 36.1 C (Oral) TMAX: 36.8 C (Oral) HR: 89(Monitored) RR: 17 BP: 182/95 SpO2: 95% Intake and Output 7AM Yesterday to 7AM Today Intake and Output (Last 24 hours) Intake Administration Information 1000.00 Oral Intake 380.00 Output Stool Count 2.00 Urine Count 6.00 Total Summary Total Intake 1380.00 Total Output 0.00 Fluid Balance 1380.00 Physical Exam General: nad, sitting in chair watching TV Left upper extremity: dressing in place without strikethrough. The exposed hand is markedly less swollen than prior exam. Thumb pinch strong. No tenderness to gentle palpation of LUE. Hand warm and well perfused, SILT throughout Weight Dosing Weight: 44.8 kg (05/02/22) Medications Medications (22) Active Scheduled: (10) amitriptyline 50 mg tablet 50 mg 1 tab(s), Oral, qHS amLODIPine 5 mg tablet 5 mg 1 tab(s), Oral, qDay atorvastatin 20 mg tablet 20 mg 1 tab(s), Oral, qDay cefTRIAXone IVP syringe 2 gram(s) 20 mL, IV Push (INT), qDay cholecalciferol 1250 mcg capsule (Vit D3 50,000 unit(s)) 1,250 mcg 1 cap(s), Oral, qWeek eszopiclone 3 mg tablet 3 mg 1 tab(s), Oral, qHS fenofibrate 48 mg tablet 48 mg 1 tab(s), Oral, qDayM pantoprazole 40 mg EC tablet 40 mg 1 tab(s), Oral, qDayAC tiZANidine 4 mg tablet 8 mg 2 tab(s), Oral, qHS vancomycin PMX 750 mg 250 mL, IV Piggyback, q24h Continuous: (0) PRN: (12) acetaminophen 325 mg Tablet 650 mg 2 tab(s), Oral, q4h acetaminophen 325 mg Tablet 650 mg 2 tab(s), Oral, q4h acetaminophen-OXYcodone 325 mg-5 mg Tablet 1 tab(s), Oral, q4h albuterol - ipratropium 2.5 mg-0.5 mg/3 mL Inhal Nakita UD 3 mL, Inhalation, q4hRT guaifenesin 100 mg/5 mL 120 mL liquid 200 mg 10 mL, Oral, q4h hydroxyzine pamoate 25 mg capsule 25 mg 1 cap(s), Oral, BID loratadine 10 mg Tablet 10 mg 1 tab(s), Oral, qDay melatonin 3 mg tablet 3 mg 1 tab(s), Oral, qHS morphine 2 mg/mL 1 mL syringe 1 mg 0.5 mL, IV Push, q4h ondansetron 2 mg/ 1 mL 2 mL INJ 4 mg 2 mL, IV Push, q4h polyethylene glycol 3350 - UD packet 17 gram(s) 15 mL, Oral, qDay prochlorperazine 10 mg/2 mL vial 5 mg 1 mL, IV Push, q6h Lab Results 05/03 05:03 WBC: 7.2 Hgb: 12.3 Hct: 37.4 Platelet: 203 Neutrophil %: 68.8 Glucose Level: 107 Sodium Level: 141 Potassium Level: 4.2 BUN: 7.0 L Creatinine Lvl (s): 0.87 05/02 06:17 WBC: 9.0 Hgb: 10.9 L Hct: 32.5 L Platelet: 308 Neutrophil %: 76.0 H Protime: 10.8 PT International Ratio: 0.9 Glucose Level: 86 Sodium Level: 145 Potassium Level: 3.8 BUN: 11.0 Creatinine Lvl (s): 1.11 EKG No qualifying data available. Assessment/Plan Insomnia Orders: Diet Order 51 yo F with PMH scleroderma presents with L forearm soft tissue infection. No discrete collection noted. Low concern for compartment syndrome or necrotizing fasciitis at this time. -Elevate the L arm in a similar fashion to how this was performed today by me -Perform local wound care as needed. Dreft soaks 20 mins twice daily. Re-dress with sterile gauze, kerlix -continue abx per ID -There is a suggestion of possibly a small amount of fluid, what could be reasonable is to consider interventional radiology aspiration of this fluid. Please see attending addendum on 05/02 consult note for recommendations should her infection worsen -She may follow up with her Ortho doc in [place] -Discussed with attending Digitally Signed by JOSE ECHEVARRIA MD on 05/03/2022 11:01 AM Digitally Signed by JOSE ECHEVARRIA MD on 05/03/2022 11:[address] [facility] 05-04-2022 Note Date of Service 05/04/22 Chief Complaint left arm cellulitis Subjective 51-year-old female with past medical history of scleroderma in the process of following with rheumatology, neuropathy, hyperlipidemia, chronic back pain follows with pain management, osteoporosis, degenerative joint disease, anemia, tobacco abuse who initially presented to [facility] on 04/29/2022 with complaints of left arm pain and cellulitis. Patient developed an ulcer on her forearm several days prior. Patient was seen by her PCP and prescribed Keflex with worsening symptoms. On arrival to [facility], patient was started on broad-spectrum antibiotics. An MRI of the left forearm was completed which showed diffuse cellulitis of the forearm and hand without rim-enhancing fluid collection to suggest abscess. Mildly enhancing deep intramuscular fluid of the flexor compartment of the forearm. Correlate for signs of deep fascial infectious process versus compartment syndrome. No evidence of osteomyelitis. Several hospitals were contacted for transfer including [place] [facility], [facility], [facility], [facility], [facility]ics and [facility] who were unable to take the patient. Patient was therefore transferred to [facility] for further evaluation. While at [facility], blood work remained stable, hemoglobin 10.2. BMP initially showed a creatinine of 1.12, which trended down. ESR was elevated at 65, CRP 15.1. Lactic acid unremarkable at 1.0. Vital signs hemodynamically stable, afebrile on room air. Infectious disease and orthopedics are following. Patient seen today. She continues to state her left hand and arm swelling and erythema have improved. She mentions she is eating and drinking better today. No complaints of chest pain or shortness of breath. Patient states she has had 2 episodes of diarrhea. No abdominal pain or nausea. Objective Vitals and Measurements T: 36.6 C (Oral) TMIN: 36.4 C (Oral) TMAX: 36.8 C (Oral) HR: 91 HR: 93(Apical) RR: 18 BP: 146/75 SpO2: 98% Intake and Output 7AM Yesterday to 7AM Today Intake and Output (Last 24 hours) Intake Oral Intake 830.00 Output Stool Count 1.00 Urine Count 5.00 Total Summary Total Intake 830.00 Total Output 0.00 Fluid Balance 830.00 Physical Exam General: No acute distress. Alert and Appropriate Skin: Warm, Dry, left arm gauze dressing dry and intact. Left hand swelling, erythema- improved. HEENT: Head is normocephalic and atraumatic. No lesions. Pupils equal in size. Extraocular movements within normal limits. Nose: No septal deviation. Mouth: Oropharynx mucosa is without lesion. Neck: Supple. No lymphadenopathy, thyromegaly noted. Lungs: Bilaterally clear/diminished breath sounds with no crepitation or wheeze. Unlabored on room air Cardiovascular: Heart is regular rhythm, S1S2, No extra-audible heart tones Abdomen: Abdomen is soft, nontender. Bowel sounds positive all four quadrants. Extremities: No clubbing, cyanosis or edema. Peripheral pulses palpable. No calf tenderness. Adequate peripheral circulation. Neurological: The patient is awake, oriented to time, people and place. Following simple commands, moving all extremities. Weight Dosing Weight: 44.8 kg (05/02/22) Medications Medications (27) Active Scheduled: (15) amitriptyline 50 mg tablet 50 mg 1 tab(s), Oral, qHS amLODIPine 5 mg tablet 5 mg 1 tab(s), Oral, qDay atorvastatin 20 mg tablet 20 mg 1 tab(s), Oral, qDay cefTRIAXone IVP syringe 2 gram(s) 20 mL, IV Push (INT), qDay cholecalciferol 1250 mcg capsule (Vit D3 50,000 unit(s)) 1,250 mcg 1 cap(s), Oral, qWeek Dreft detergent 1 arash, Topical, BID eszopiclone 3 mg tablet 3 mg 1 tab(s), Oral, qHS fenofibrate 48 mg tablet 48 mg 1 tab(s), Oral, qDayM [facility] communication order dr luis waiting until keyona arrived in ord, Miscellaneous, qDay Nicoderm patch REMOVAL 1 EA, Miscellaneous, q24h nicotine 21 mg/24 hr ER patch 21 mg 1 patch(es), Transdermal, q24h pantoprazole 40 mg EC tablet 40 mg 1 tab(s), Oral, qDayAC tiZANidine 4 mg tablet 8 mg 2 tab(s), Oral, qHS vancomycin PMX 750 mg 250 mL, IV Piggyback, q24h vancomycin trough level 1 EA, Miscellaneous, q12hr Continuous: (0) PRN: (12) acetaminophen 325 mg Tablet 650 mg 2 tab(s), Oral, q4h acetaminophen 325 mg Tablet 650 mg 2 tab(s), Oral, q4h acetaminophen-OXYcodone 325 mg-5 mg Tablet 1 tab(s), Oral, q4h albuterol - ipratropium 2.5 mg-0.5 mg/3 mL Inhal Nakita UD 3 mL, Inhalation, q4hRT guaifenesin 100 mg/5 mL 120 mL liquid 200 mg 10 mL, Oral, q4h hydroxyzine pamoate 25 mg capsule 25 mg 1 cap(s), Oral, BID loratadine 10 mg Tablet 10 mg 1 tab(s), Oral, qDay melatonin 3 mg tablet 3 mg 1 tab(s), Oral, qHS morphine 2 mg/mL 1 mL syringe 1 mg 0.5 mL, IV Push, q4h ondansetron 2 mg/ 1 mL 2 mL INJ 4 mg 2 mL, IV Push, q4h polyethylene glycol 3350 - UD packet 17 gram(s) 15 mL, Oral, qDay prochlorperazine 10 mg/2 mL vial 5 mg 1 mL, IV Push, q6h Lab Results 05/04 04:41 WBC: 8.7 Hgb: 11.4 L Hct: 33.8 L Platelet: 366 Neutrophil %: 75.3 H Glucose Level: 81 Sodium Level: 145 Potassium Level: 3.6 BUN: 9.0 Creatinine Lvl (s): 0.90 05/03 05:03 WBC: 7.2 Hgb: 12.3 Hct: 37.4 Platelet: 203 Neutrophil %: 68.8 Glucose Level: 107 Sodium Level: 141 Potassium Level: 4.2 BUN: 7.0 L Creatinine Lvl (s): 0.87 EKG No qualifying data available. Assessment/Plan 1. Left arm cellulitis with wound 2. Elevated inflammatory markers 3. Scleroderma 4. Chronic neuropathy 5. Chronic anemia. 6. HLD 7. Other comorbidities of osteoporosis, chronic back pain, degenerative joint disease, tobacco abuse Left arm cellulitis with open wound, ESR and CRP elevated on admission. MRI completed at [facility] showed signs of deep fascial infectious process versus compartment syndrome. No evidence of osteomyelitis. Left upper extremity Doppler was negative for DVT. Blood cultures show no growth. Wound culture collected from 04/29/2022 was positive for Staph aureus, group A beta-hemolytic strep, pansensitive. ID following, remains on Vancomycin and Rocephin. Orthopedics following, who felt there was low concern for compartment syndrome or necrotizing fasciitis. Recommending local wound care and antibiotics. Cellulitis continues to improve with current treatment. CRP improved to 5.1. [facility] other [facility] in area declined-this was discussed with the patient. Will await ID recommendations. Diarrhea, will check Cdiff given ongoing antibiotic therapy Additional blood work stable. Leukocytosis resolved, patient afebrile. Scleroderma, chronic. 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 Chronic neuropathy, continue home medications. HLD, continue statin. Chronic anemia, hgb stable at 11.4. Other comorbidities of osteoporosis, chronic back pain, degenerative joint disease, tobacco abuse. Continue chronic pain regimen. Nicotine patch added today. Plan discussed with patient. Case discussed with Dr. Medina. This dictation was performed using voice recognition software and may include grammatical and/or spelling errors. Digitally Signed by NEHAL RAYMOND on 05/04/2022 09:[address] [facility] 05-04-2022 Orthopaedic surgery Consult note Date of Service 05/04/22 Subjective Patient seen and examined at the bedside this morning. No acute events overnight. She states that the swelling in her hand on the left continues to improve. She denies numbness, tingling, weakness. She denies fever, chills. Complains of right lateral hip pain that she states is similar to her baseline trochanteric bursitis. Objective Vitals and Measurements T: 36.6 C (Oral) TMIN: 36.4 C (Oral) TMAX: 36.8 C (Oral) HR: 91 HR: 93(Apical) RR: 18 BP: 146/75 SpO2: 98% Intake and Output 7AM Yesterday to 7AM Today Intake and Output (Last 24 hours) Intake Oral Intake 710.00 Output Stool Count 1.00 Urine Count 5.00 Total Summary Total Intake 710.00 Total Output 0.00 Fluid Balance 710.00 Physical Exam General: nad, lying in bed on her right side. Left upper extremity: dressing in place without strikethrough. The exposed hand is markedly less swollen than prior exam. Thumb pinch strong. No tenderness to gentle palpation of LUE. Hand warm and well perfused, SILT throughout Weight Dosing Weight: 44.8 kg (05/02/22) Medications Medications (28) Active Scheduled: (16) amitriptyline 50 mg tablet 50 mg 1 tab(s), Oral, qHS amLODIPine 5 mg tablet 5 mg 1 tab(s), Oral, qDay atorvastatin 20 mg tablet 20 mg 1 tab(s), Oral, qDay cefTRIAXone IVP syringe 2 gram(s) 20 mL, IV Push (INT), qDay cholecalciferol 1250 mcg capsule (Vit D3 50,000 unit(s)) 1,250 mcg 1 cap(s), Oral, qWeek Dreft detergent 1 arash, Topical, BID eszopiclone 3 mg tablet 3 mg 1 tab(s), Oral, qHS fenofibrate 48 mg tablet 48 mg 1 tab(s), Oral, qDayM [facility] communication order dr janelle giraldo until keyona arrived in ord, Miscellaneous, qDay Nicoderm patch REMOVAL 1 EA, Miscellaneous, q24h Nicoderm patch REMOVAL 1 EA, Miscellaneous, Once nicotine 21 mg/24 hr ER patch 21 mg 1 patch(es), Transdermal, q24h pantoprazole 40 mg EC tablet 40 mg 1 tab(s), Oral, qDayAC tiZANidine 4 mg tablet 8 mg 2 tab(s), Oral, qHS vancomycin PMX 750 mg 250 mL, IV Piggyback, q24h vancomycin trough level 1 EA, Miscellaneous, q12hr Continuous: (0) PRN: (12) acetaminophen 325 mg Tablet 650 mg 2 tab(s), Oral, q4h acetaminophen 325 mg Tablet 650 mg 2 tab(s), Oral, q4h acetaminophen-OXYcodone 325 mg-5 mg Tablet 1 tab(s), Oral, q4h albuterol - ipratropium 2.5 mg-0.5 mg/3 mL Inhal Nakita UD 3 mL, Inhalation, q4hRT guaifenesin 100 mg/5 mL 120 mL liquid 200 mg 10 mL, Oral, q4h hydroxyzine pamoate 25 mg capsule 25 mg 1 cap(s), Oral, BID loratadine 10 mg Tablet 10 mg 1 tab(s), Oral, qDay melatonin 3 mg tablet 3 mg 1 tab(s), Oral, qHS morphine 2 mg/mL 1 mL syringe 1 mg 0.5 mL, IV Push, q4h ondansetron 2 mg/ 1 mL 2 mL INJ 4 mg 2 mL, IV Push, q4h polyethylene glycol 3350 - UD packet 17 gram(s) 15 mL, Oral, qDay prochlorperazine 10 mg/2 mL vial 5 mg 1 mL, IV Push, q6h Lab Results 05/04 04:41 WBC: 8.7 Hgb: 11.4 L Hct: 33.8 L Platelet: 366 Neutrophil %: 75.3 H Glucose Level: 81 Sodium Level: 145 Potassium Level: 3.6 BUN: 9.0 Creatinine Lvl (s): 0.90 05/03 05:03 WBC: 7.2 Hgb: 12.3 Hct: 37.4 Platelet: 203 Neutrophil %: 68.8 Glucose Level: 107 Sodium Level: 141 Potassium Level: 4.2 BUN: 7.0 L Creatinine Lvl (s): 0.87 EKG No qualifying data available. Assessment/Plan Insomnia Orders: Dreft detergent, Start: 05/03/22 14:51:00 EDT, Dose = 1 arash, Soap, Topical, BID, Please cover wound(s) with sterile gauze dressing following soaks, 0, 05/03/22 13:18:00 EDT 51 yo F with PMH scleroderma presents with L forearm soft tissue infection. No discrete collection noted. Low concern for compartment syndrome or necrotizing fasciitis at this time. -Elevate the L arm -Perform local wound care as needed. Dreft soaks 20 mins twice daily. Re-dress with sterile gauze, kerlix -continue abx per ID -There is a suggestion of possibly a small amount of fluid, what could be reasonable is to consider interventional radiology aspiration of this fluid. Please see attending addendum on 05/02 consult note for recommendations should her infection worsen -She may follow up with her Ortho doc in [place] -Discussed with attending There is no further orthopedic intervention indicated at this time. Please do not hesitate to reach out or re-consult for any additional concerns or questions. Digitally Signed by JOSE ECHEVARRIA MD on 05/04/2022 08:[address] [facility] 05-03-2022 Infectious disease Progress note Date of Service 05/03/2022 Chief Complaint Left arm abscess and cellulitis Subjective 51-year-old female with history of neuropathy secondary to scleroderma, hyperlipidemia, chronic back pain, osteoporosis, degenerative disc disease, and tobacco abuse presents to [facility] on 05/02 for left arm pain and cellulitis. Started on Keflex outpatient for the same with no improvement. On this admission, x-ray of the left hand and forearm negative. MRI of the forearm completed on 05/01 showed diffuse cellulitis of the forearm and hand without rim-enhancing fluid collection to suggest abscess with mildly enhanced deep intramuscular fluid of the flexor compartment of the forearm with no evidence of osteomyelitis. Multiple orthopedics were consulted and refused to take the patient due to bed availability or outside their scope of practice. Blood cultures 04/29 showed no growth to date. Doppler of left upper extremity negative. Initial labs showed elevated ESR and CRP. Deep wound cultures from 04/29 are group A hemolytic strep along with staph aureus and 05/01 show no growth to date. Ortho following, not concerned for compartment syndrome or necrotizing fascitis, recommending local wound care and elevation of the extremity. Unable for surgical intervention due to outside scope of practice. Gen surgery refused to see patient. ID following. Patient was seen at the bedside with brother. She feels like the swelling in her left hand has improved but the erythema has remained the same. Reports that she was treated for her last episode of cellulitis 25 years ago with PICC line placement and IV antibiotics. Denies fever or chills. Denies nausea, vomiting or diarrhea. Reports chronic back pain, no joint pain. Denies urinary symptoms. She was able to sit up in the chair for couple hours this morning. Appetite was normal. Objective Vitals and Measurements T: 36.8 C (Oral) TMIN: 36.1 C (Oral) TMAX: 36.8 C (Oral) HR: 89(Monitored) RR: 17 BP: 182/95 SpO2: 95% Intake and Output 7AM Yesterday to 7AM Today Intake and Output (Last 24 hours) Intake Administration Information 1000.00 Oral Intake 380.00 Output Stool Count 2.00 Urine Count 6.00 Total Summary Total Intake 1380.00 Total Output 0.00 Fluid Balance 1380.00 Physical Exam General: Alert and appropriate, in no acute distress. Skin: Left arm/leg underdeveloped. Left forearm still has extensive erythema with chronic wound with purulent drainage. Swelling has improved. HEENT: Head normocephalic and atraumatic. PERRLA. [place] oral mucosa. Neck: Supple. No lymphadenopathy. Lungs: Diminished on room air. Cardiovascular: Regular rate and rhythm, S1-S2. No murmurs. Abdomen: Abdomen is soft, nontender, nondistended. BS present. Extremities: edema is present to the left arm +2. Able to move extremities without difficulties. Left hand able to open and close easily without pain now. Neurological: The patient is awake, oriented to person, place and time. Follows simple commands. Weight Dosing Weight: 44.8 kg (05/02/22) Medications Medications (23) Active Scheduled: (10) amitriptyline 50 mg tablet 50 mg 1 tab(s), Oral, qHS amLODIPine 5 mg tablet 5 mg 1 tab(s), Oral, qDay atorvastatin 20 mg tablet 20 mg 1 tab(s), Oral, qDay cefTRIAXone IVP syringe 2 gram(s) 20 mL, IV Push (INT), qDay cholecalciferol 1250 mcg capsule (Vit D3 50,000 unit(s)) 1,250 mcg 1 cap(s), Oral, qWeek eszopiclone 3 mg tablet 3 mg 1 tab(s), Oral, qHS fenofibrate 48 mg tablet 48 mg 1 tab(s), Oral, qDayM pantoprazole 40 mg EC tablet 40 mg 1 tab(s), Oral, qDayAC tiZANidine 4 mg tablet 8 mg 2 tab(s), Oral, qHS vancomycin PMX 750 mg 250 mL, IV Piggyback, q24h Continuous: (0) PRN: (13) acetaminophen 325 mg Tablet 650 mg 2 tab(s), Oral, q4h acetaminophen 325 mg Tablet 650 mg 2 tab(s), Oral, q4h acetaminophen-OXYcodone 325 mg-5 mg Tablet 1 tab(s), Oral, q4h albuterol - ipratropium 2.5 mg-0.5 mg/3 mL Inhal Nakita UD 3 mL, Inhalation, q4hRT Dreft detergent 1 arash, Topical, BID guaifenesin 100 mg/5 mL 120 mL liquid 200 mg 10 mL, Oral, q4h hydroxyzine pamoate 25 mg capsule 25 mg 1 cap(s), Oral, BID loratadine 10 mg Tablet 10 mg 1 tab(s), Oral, qDay melatonin 3 mg tablet 3 mg 1 tab(s), Oral, qHS morphine 2 mg/mL 1 mL syringe 1 mg 0.5 mL, IV Push, q4h ondansetron 2 mg/ 1 mL 2 mL INJ 4 mg 2 mL, IV Push, q4h polyethylene glycol 3350 - UD packet 17 gram(s) 15 mL, Oral, qDay prochlorperazine 10 mg/2 mL vial 5 mg 1 mL, IV Push, q6h Lab Results 05/03 05:03 WBC: 7.2 Hgb: 12.3 Hct: 37.4 Platelet: 203 Neutrophil %: 68.8 Glucose Level: 107 Sodium Level: 141 Potassium Level: 4.2 BUN: 7.0 L Creatinine Lvl (s): 0.87 05/02 06:17 WBC: 9.0 Hgb: 10.9 L Hct: 32.5 L Platelet: 308 Neutrophil %: 76.0 H Protime: 10.8 PT International Ratio: 0.9 Glucose Level: 86 Sodium Level: 145 Potassium Level: 3.8 BUN: 11.0 Creatinine Lvl (s): 1.11 Imaging Results and Diagnostics Imaging last from [place]. EKG No qualifying data available. Assessment/Plan 1. Cellulitis of the left forearm, possible abscess 2. Concern for compartment syndrome 3. Elevated ESR and CRP 4. Hx of scleroderma and underdeveloped left arm/leg Cellulitis of the left forearm, possible abscess. Imaging reviewed. Continues to have no leukocytosis and is afebrile. Left arm continues to have cellulitis and swelling concerning for abscess. Plastics, refuses to see patient due to outside scope practice. Orthopedics following, recommending local wound care with no evidence of compartment syndrome or necrotizing fasciitis. If surgical intervention is indicated, outside of their scope of practice. Continue ceftriaxone and vancomycin for coverage of MSSA for now. If patient does not improve clinically, consider transferred to outside facility. Concern for compartment syndrome, ruled out by orthopedics. Elevated ESR and CRP, concerning for infection. History of scleroderma and underdeveloped left arm/leg. Patient has had diagnosis since 6 years old and records can be found at [facility]. Due to diagnoses, multiple orthopedics feel as though it is outside their scope of practice and may need followed up with hand surgeon at tertiary facility. Plan of care discussed in depth with patient and brother. All questions answered. Patient verbalized understanding and is agreeable to plan of care. Discussed with my collaborating physician Dr. Matthias Keller. Any changes to the plan will be added to end as an addendum. Time Spent I spent a total of 38 minutes reviewing the patient s diagnostic labs/tests, seeing and examining the patient and documenting in the medical record, see assessment for further detail. Digitally Signed by JARRETT LUGO on 05/03/2022 01:[address] [facility] 05-03-2022 Infectious disease Progress note Date of Service 05/03/2022 Chief Complaint Left arm abscess and cellulitis Subjective 51-year-old female with history of neuropathy secondary to scleroderma, hyperlipidemia, chronic back pain, osteoporosis, degenerative disc disease, and tobacco abuse presents to [facility] on 05/02 for left arm pain and cellulitis. Started on Keflex outpatient for the same with no improvement. On this admission, x-ray of the left hand and forearm negative. MRI of the forearm completed on 05/01 showed diffuse cellulitis of the forearm and hand without rim-enhancing fluid collection to suggest abscess with mildly enhanced deep intramuscular fluid of the flexor compartment of the forearm with no evidence of osteomyelitis. Multiple orthopedics were consulted and refused to take the patient due to bed availability or outside their scope of practice. Blood cultures 04/29 showed no growth to date. Doppler of left upper extremity negative. Initial labs showed elevated ESR and CRP. Deep wound cultures from 04/29 are group A hemolytic strep along with staph aureus and 05/01 show no growth to date. Ortho following, not concerned for compartment syndrome or necrotizing fascitis, recommending local wound care and elevation of the extremity. Unable for surgical intervention due to outside scope of practice. Gen surgery refused to see patient. ID following. Patient was seen at the bedside with brother. She feels like the swelling in her left hand has improved but the erythema has remained the same. Reports that she was treated for her last episode of cellulitis 25 years ago with PICC line placement and IV antibiotics. Denies fever or chills. Denies nausea, vomiting or diarrhea. Reports chronic back pain, no joint pain. Denies urinary symptoms. She was able to sit up in the chair for couple hours this morning. Appetite was normal. Objective Vitals and Measurements T: 36.8 C (Oral) TMIN: 36.1 C (Oral) TMAX: 36.8 C (Oral) HR: 89(Monitored) RR: 17 BP: 182/95 SpO2: 95% Intake and Output 7AM Yesterday to 7AM Today Intake and Output (Last 24 hours) Intake Administration Information 1000.00 Oral Intake 380.00 Output Stool Count 2.00 Urine Count 6.00 Total Summary Total Intake 1380.00 Total Output 0.00 Fluid Balance 1380.00 Physical Exam General: Alert and appropriate, in no acute distress. Skin: Left arm/leg underdeveloped. Left forearm still has extensive erythema with chronic wound with purulent drainage. Swelling has improved. HEENT: Head normocephalic and atraumatic. PERRLA. [place] oral mucosa. Neck: Supple. No lymphadenopathy. Lungs: Diminished on room air. Cardiovascular: Regular rate and rhythm, S1-S2. No murmurs. Abdomen: Abdomen is soft, nontender, nondistended. BS present. Extremities: edema is present to the left arm +2. Able to move extremities without difficulties. Left hand able to open and close easily without pain now. Neurological: The patient is awake, oriented to person, place and time. Follows simple commands. Weight Dosing Weight: 44.8 kg (05/02/22) Medications Medications (23) Active Scheduled: (10) amitriptyline 50 mg tablet 50 mg 1 tab(s), Oral, qHS amLODIPine 5 mg tablet 5 mg 1 tab(s), Oral, qDay atorvastatin 20 mg tablet 20 mg 1 tab(s), Oral, qDay cefTRIAXone IVP syringe 2 gram(s) 20 mL, IV Push (INT), qDay cholecalciferol 1250 mcg capsule (Vit D3 50,000 unit(s)) 1,250 mcg 1 cap(s), Oral, qWeek eszopiclone 3 mg tablet 3 mg 1 tab(s), Oral, qHS fenofibrate 48 mg tablet 48 mg 1 tab(s), Oral, qDayM pantoprazole 40 mg EC tablet 40 mg 1 tab(s), Oral, qDayAC tiZANidine 4 mg tablet 8 mg 2 tab(s), Oral, qHS vancomycin PMX 750 mg 250 mL, IV Piggyback, q24h Continuous: (0) PRN: (13) acetaminophen 325 mg Tablet 650 mg 2 tab(s), Oral, q4h acetaminophen 325 mg Tablet 650 mg 2 tab(s), Oral, q4h acetaminophen-OXYcodone 325 mg-5 mg Tablet 1 tab(s), Oral, q4h albuterol - ipratropium 2.5 mg-0.5 mg/3 mL Inhal Nakita UD 3 mL, Inhalation, q4hRT Dreft detergent 1 arash, Topical, BID guaifenesin 100 mg/5 mL 120 mL liquid 200 mg 10 mL, Oral, q4h hydroxyzine pamoate 25 mg capsule 25 mg 1 cap(s), Oral, BID loratadine 10 mg Tablet 10 mg 1 tab(s), Oral, qDay melatonin 3 mg tablet 3 mg 1 tab(s), Oral, qHS morphine 2 mg/mL 1 mL syringe 1 mg 0.5 mL, IV Push, q4h ondansetron 2 mg/ 1 mL 2 mL INJ 4 mg 2 mL, IV Push, q4h polyethylene glycol 3350 - UD packet 17 gram(s) 15 mL, Oral, qDay prochlorperazine 10 mg/2 mL vial 5 mg 1 mL, IV Push, q6h Lab Results 05/03 05:03 WBC: 7.2 Hgb: 12.3 Hct: 37.4 Platelet: 203 Neutrophil %: 68.8 Glucose Level: 107 Sodium Level: 141 Potassium Level: 4.2 BUN: 7.0 L Creatinine Lvl (s): 0.87 05/02 06:17 WBC: 9.0 Hgb: 10.9 L Hct: 32.5 L Platelet: 308 Neutrophil %: 76.0 H Protime: 10.8 PT International Ratio: 0.9 Glucose Level: 86 Sodium Level: 145 Potassium Level: 3.8 BUN: 11.0 Creatinine Lvl (s): 1.11 Imaging Results and Diagnostics Imaging last from [place]. EKG No qualifying data available. Assessment/Plan 1. Cellulitis of the left forearm, possible abscess 2. Concern for compartment syndrome 3. Elevated ESR and CRP 4. Hx of scleroderma and underdeveloped left arm/leg Cellulitis of the left forearm, possible abscess. Imaging reviewed. Continues to have no leukocytosis and is afebrile. Left arm continues to have cellulitis and swelling concerning for abscess. Plastics, refuses to see patient due to outside scope practice. Orthopedics following, recommending local wound care with no evidence of compartment syndrome or necrotizing fasciitis. If surgical intervention is indicated, outside of their scope of practice. Continue ceftriaxone and vancomycin for coverage of MSSA for now. If patient does not improve clinically, consider transferred to outside facility. Concern for compartment syndrome, ruled out by orthopedics. Elevated ESR and CRP, concerning for infection. History of scleroderma and underdeveloped left arm/leg. Patient has had diagnosis since 6 years old and records can be found at [facility]. Due to diagnoses, multiple orthopedics feel as though it is outside their scope of practice and may need followed up with hand surgeon at tertiary facility. Plan of care discussed in depth with patient and brother. All questions answered. Patient verbalized understanding and is agreeable to plan of care. Discussed with my collaborating physician Dr. Matthias Keller. Any changes to the plan will be added to end as an addendum. Time Spent I spent a total of 38 minutes reviewing the patient s diagnostic labs/tests, seeing and examining the patient and documenting in the medical record, see assessment for further detail. Digitally Signed by JARRETT LUGO on 05/03/2022 01:[address] [facility] 05-03-2022 Note . MICRO - Microbiology PROCEDURE: Culture Wound Aerobic with Gram Stain [*1] SOURCE: Wound (surface) BODY SITE: Forearm COLLECTED DATE/TIME: 05/01/2022 09:29 EDT RECEIVED DATE/TIME: 05/01/2022 14:12 EDT START DATE/TIME: 05/01/2022 14:12 EDT FREE TEXT SOURCE: FINAL REPORTS Final Report [] Verified Date/Time/Personnel: 05/03/2022 09:04 EDT No growth at 48 hours. PRELIMINARY REPORTS Preliminary Report [] Verified Date/Time/Personnel: 05/02/2022 11:58 EDT No growth to date STAINS GS [] Verified Date/Time/Personnel: 05/01/2022 14:53 EDT 1+ Polymorphonuclear cells Rare Mononuclear cells Rare Epithelial cells No organisms seen. Performing Locations *1: This test was performed at: [facility], [address] [place] [address], [id number] , [facility] ([place]) 05-03-2022 Orthopaedic surgery Progress note Date of Service 05/03/22 Subjective Patient seen and examined at the bedside this morning. No acute events overnight. She states that the swelling in her hand on the left has improved. She denies numbness, tingling, weakness. She denies fever, chills. Objective Vitals and Measurements T: 36.8 C (Oral) TMIN: 36.1 C (Oral) TMAX: 36.8 C (Oral) HR: 89(Monitored) RR: 17 BP: 182/95 SpO2: 95% Intake and Output 7AM Yesterday to 7AM Today Intake and Output (Last 24 hours) Intake Administration Information 1000.00 Oral Intake 380.00 Output Stool Count 2.00 Urine Count 6.00 Total Summary Total Intake 1380.00 Total Output 0.00 Fluid Balance 1380.00 Physical Exam General: nad, sitting in chair watching TV Left upper extremity: dressing in place without strikethrough. The exposed hand is markedly less swollen than prior exam. Thumb pinch strong. No tenderness to gentle palpation of LUE. Hand warm and well perfused, SILT throughout Weight Dosing Weight: 44.8 kg (05/02/22) Medications Medications (22) Active Scheduled: (10) amitriptyline 50 mg tablet 50 mg 1 tab(s), Oral, qHS amLODIPine 5 mg tablet 5 mg 1 tab(s), Oral, qDay atorvastatin 20 mg tablet 20 mg 1 tab(s), Oral, qDay cefTRIAXone IVP syringe 2 gram(s) 20 mL, IV Push (INT), qDay cholecalciferol 1250 mcg capsule (Vit D3 50,000 unit(s)) 1,250 mcg 1 cap(s), Oral, qWeek eszopiclone 3 mg tablet 3 mg 1 tab(s), Oral, qHS fenofibrate 48 mg tablet 48 mg 1 tab(s), Oral, qDayM pantoprazole 40 mg EC tablet 40 mg 1 tab(s), Oral, qDayAC tiZANidine 4 mg tablet 8 mg 2 tab(s), Oral, qHS vancomycin PMX 750 mg 250 mL, IV Piggyback, q24h Continuous: (0) PRN: (12) acetaminophen 325 mg Tablet 650 mg 2 tab(s), Oral, q4h acetaminophen 325 mg Tablet 650 mg 2 tab(s), Oral, q4h acetaminophen-OXYcodone 325 mg-5 mg Tablet 1 tab(s), Oral, q4h albuterol - ipratropium 2.5 mg-0.5 mg/3 mL Inhal Nakita UD 3 mL, Inhalation, q4hRT guaifenesin 100 mg/5 mL 120 mL liquid 200 mg 10 mL, Oral, q4h hydroxyzine pamoate 25 mg capsule 25 mg 1 cap(s), Oral, BID loratadine 10 mg Tablet 10 mg 1 tab(s), Oral, qDay melatonin 3 mg tablet 3 mg 1 tab(s), Oral, qHS morphine 2 mg/mL 1 mL syringe 1 mg 0.5 mL, IV Push, q4h ondansetron 2 mg/ 1 mL 2 mL INJ 4 mg 2 mL, IV Push, q4h polyethylene glycol 3350 - UD packet 17 gram(s) 15 mL, Oral, qDay prochlorperazine 10 mg/2 mL vial 5 mg 1 mL, IV Push, q6h Lab Results 05/03 05:03 WBC: 7.2 Hgb: 12.3 Hct: 37.4 Platelet: 203 Neutrophil %: 68.8 Glucose Level: 107 Sodium Level: 141 Potassium Level: 4.2 BUN: 7.0 L Creatinine Lvl (s): 0.87 05/02 06:17 WBC: 9.0 Hgb: 10.9 L Hct: 32.5 L Platelet: 308 Neutrophil %: 76.0 H Protime: 10.8 PT International Ratio: 0.9 Glucose Level: 86 Sodium Level: 145 Potassium Level: 3.8 BUN: 11.0 Creatinine Lvl (s): 1.11 EKG No qualifying data available. Assessment/Plan Insomnia Orders: Diet Order 51 yo F with PMH scleroderma presents with L forearm soft tissue infection. No discrete collection noted. Low concern for compartment syndrome or necrotizing fasciitis at this time. -Elevate the L arm in a similar fashion to how this was performed today by ma -Perform local wound care as needed. Dreft soaks 20 mins twice daily. Re-dress with sterile gauze, kerlix -continue abx per ID -There is a suggestion of possibly a small amount of fluid, what could be reasonable is to consider interventional radiology aspiration of this fluid. Please see attending addendum on 05/02 consult note for recommendations should her infection worsen -She may follow up with her Ortho doc in [place] -Discussed with attending Digitally Signed by JOSE ECHEVARRIA MD on 05/03/2022 11:01 AM Digitally Signed by JOSE ECHEVARRIA MD on 05/03/2022 11:[address] [facility] 05-03-2022 Note . MICRO - Microbiology PROCEDURE: Culture Wound Aerobic with Gram Stain [*1] SOURCE: Wound (surface) BODY SITE: Arm L COLLECTED DATE/TIME: 04/29/2022 23:14 EDT RECEIVED DATE/TIME: 04/30/2022 14:28 EDT START DATE/TIME: 04/30/2022 14:28 EDT FREE TEXT SOURCE: FINAL REPORTS Final Report [] Verified Date/Time/Personnel: 05/03/2022 08:48 EDT Few Staphylococcus aureus Light Group A Beta Hemolytic Strep (Strep pyogenes) Sensitivity testing is not recommended for one of the following reasons: 1. Established susceptibility patterns are available or 2. Interpretative criteria are not available. PRELIMINARY REPORTS Preliminary Report [] Verified Date/Time/Personnel: 05/02/2022 11:15 EDT Few Staphylococcus aureus SEBLE to follow Light Group A Beta Hemolytic Strep (Strep pyogenes) Sensitivity testing is not recommended for one of the following reasons: 1. Established susceptibility patterns are available or 2. Interpretative criteria are not available. Preliminary Report [] Verified Date/Time/Personnel: 05/01/2022 10:12 EDT Culture results pending. STAINS GS [] Verified Date/Time/Personnel: 04/30/2022 15:19 EDT Rare Epithelial cells No organisms seen. SUSCEPTIBILITY RESULTS Staphylococcus aureus Antibiotic SEBLE Dilut SEBLE Inter Ampicillin/ <=8/4 Susceptible Sulbactam Azithromycin <=2 Susceptible Cefepime <=4 Susceptible Cefotaxime <=8 Susceptible Ceftaroline <=0.5 Susceptible Ceftriaxone <=4 Susceptible Ciprofloxacin <=1 Susceptible Clindamycin <=0.25 Susceptible Erythromycin <=0.25 Susceptible Imipenem <=4 Susceptible Levofloxacin <=1 Susceptible Meropenem <=2 Susceptible Oxacillin <=0.25 Susceptible Penicillin <=0.03 Susceptible Piperacillin/ <=8 Susceptible Tazobactam Tetracycline <=4 Susceptible Trimethoprim/ <=0.5/9.5 Susceptible Sulfa Vancomycin 1 Susceptible Performing Locations *1: This test was performed at: [facility], [address] [place] [address], [id number] , [facility] ([place]) 05-03-2022 Orthopaedic surgery Consult note Date of Service 05/02/22 Reason for Consultation SERGIO soft tissue infection Referring Physician ID History of Present Illness 51-year-old female with past medical history of scleroderma admitted to [facility] for concerns of possible compartment syndrome of her left forearm. She was seen at [facility] and had advanced imaging performed there which showed that there might be fluid collecting within the compartments of her left forearm musculature. After multiple attempts at transferring her to a different facility she was transferred to [place]. 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 She reports intact sensation and baseline range of motion of the extremity. She states that she has had similar symptoms in the past which have resolved with several weeks of IV antibiotics. She is anxious about the prospect of surgery since she states that wounds take a very long time to heal. Review of Systems See above Physical Exam Vitals and Measurements T: 37.0 C (Oral) TMIN: 36.3 C (Oral) TMAX: 37.2 C (Oral) HR: 86 RR: 18 BP: 159/85 SpO2: 95% HT: 137.2 cm WT: 44.8 kg BMI: 23.8 Weight Dosing Weight: 44.8 kg (05/02/22) General: The patient's left side of her body has diffuse evidence of scleroderma. Her left eye is closed shut, her left leg is cachectic. Left upper extremity: Severe cachexia and muscle loss to the entire left upper extremity resulting in a limb that appears almost skeletal like. And is moderately swollen. There is diffuse erythema and and discrete areas of minor skin breakdown with mostly serosanguineous drainage. Compartments are nontender to palpation. The patient has the ability to make a strong pinch embedded linux developer with the thumb flexing into the index finger. She states this is approximately her baseline strength. She states that passive flexion and extension of the fingers of the hand do not cause increased pain. She reports her joints in that extremity are at their baseline level of range of motion. She reports moderate throbbing pain but states that this is improving from prior. Lab Results 05/02 06:17 WBC: 9.0 Hgb: 10.9 L Hct: 32.5 L Platelet: 308 Neutrophil %: 76.0 H Protime: 10.8 PT International Ratio: 0.9 Glucose Level: 86 Sodium Level: 145 Potassium Level: 3.8 BUN: 11.0 Creatinine Lvl (s): 1.11 Imaging Results and Diagnostics MRI from [facility] of the L forearm: Reviewed. No definitive evidence of abscess formation, necrotizing fasciitis/gas gangrene. X-ray of the left forearm reviewed. Extensive calcifications noted throughout entire left upper extremity. Hand and wrist are fixed in a flexed posture. No acute bony injury appreciated. Assessment/Plan Insomnia 51 yo F with PMH scleroderma presents with L forearm soft tissue infection. No discrete collection noted. Low concern for compartment syndrome or necrotizing fasciitis at this time. -Elevate the L arm in a similar fashion to how this was performed today by me -Perform local wound care as needed. Daily dressing changes with nonstick gauze and kerlix -continue abx per ID -She may follow up with her Ortho doc in [place] -Discussed with attending Problem List/Past Medical History Ongoing B12 deficiency Blindness of left eye BMI 23.0-23.9, adult Breast cancer screening Carpal tunnel syndrome, right Cellulitis of left arm Chronic pain Constipation Degenerative joint disease (DJD) of lumbar spine Depression with anxiety Encounter for immunization Encounter for osteoporosis screening in asymptomatic postmenopausal patient GERD (gastroesophageal reflux disease) Golfers elbow of right upper extremity Hemorrhoids High cholesterol Insomnia Insomnia Left lumbosacral radiculopathy Lesion of right thigh bone Muscle spasms of both lower extremities Neck pain Need for vaccination Osteoarthritis of right hip Osteoporosis Postmenopausal Right hip pain Sheltered homelessness Soft tissue mass Vitamin B12 deficiency Vitamin D deficiency Historical No qualifying data Procedure/Surgical History Injection of steroid into hip joint- right: 03/06/23 Injection into shoulder joint- right: 11/12/21 Ablation: 06/2020 Goljessica's elbow: 2016 Carpal tunnel: 2016 Blind left eye: 2013 Skin graft: 1988 Miscellaneous Medications Inpatient amitriptyline, 50 mg= 1 tab(s), Oral, qHS atorvastatin, 20 mg= 1 tab(s), Oral, qDay cefTRIAXone, 2 gram(s)= 20 mL, IV Push (INT), qDay cholecalciferol 1250 mcg (50,000 intl units) oral capsule, 1250 mcg= 1 cap(s), Oral, qWeek Claritin, 10 mg= 1 tab(s), Oral, qDay, PRN DuoNeb, 3 mL, Inhalation, q4hRT, PRN eszopiclone, 3 mg= 1 tab(s), Oral, qHS guaiFENesin, 200 mg= 10 mL, Oral, q4h, PRN melatonin, 3 mg= 1 tab(s), Oral, qHS, PRN Miralax Powder Packet, 17 gram(s)= 15 mL, Oral, qDay, PRN morphine, 1 mg= 0.5 mL, IV Push, q4h, PRN Percocet 325/5, 1 tab(s), Oral, q4h, PRN prochlorperazine, 5 mg= 1 mL, IV Push, q6h, PRN Protonix, 40 mg= 1 tab(s), Oral, qDayAC TriCor 48 mg oral tablet, 48 mg= 1 tab(s), Oral, qDayM Tylenol, 650 mg= 2 tab(s), Oral, q4h, PRN Tylenol, 650 mg= 2 tab(s), Oral, q4h, PRN vancomycin IVPB, 750 mg= 250 mL, 15 mg/kg, IV Piggyback, q24h Zanaflex, 8 mg= 2 tab(s), Oral, qHS Zofran, 4 mg= 2 mL, IV Push, q4h, PRN Home acetaminophen-oxycodone 325 mg-7.5 mg oral tablet, 1 tab(s), Oral, q6h, PRN amitriptyline 50 mg oral tablet, 50 mg= 1 tab(s), Oral, qHS atorvastatin 20 mg oral tablet, 20 mg= 1 tab(s), Oral, qDay cholecalciferol 1250 mcg (50,000 intl units) oral capsule, 1250 mcg= 1 cap(s), Oral, qWeek, 3 refills dexlansoprazole 60 mg oral delayed release capsule, 60 mg= 1 cap(s), Oral, qDay, 3 refills DME MISCellaneous, See Instructions, Has Not Started eszopiclone 3 mg oral tablet, 3 mg= 1 tab(s), Oral, qHS fenofibric acid 45 mg oral delayed release capsule, 45 mg= 1 cap(s), Oral, qDay Prolia 60 mg/mL subcutaneous solution, 60 mg= 1 mL, Subcutaneous, q6mo, 1 refills, New Prescription Zanaflex 4 mg oral tablet, 8 mg= 2 tab(s), Oral, qHS Zyrtec 10 mg oral tablet, 10 mg= 1 tab(s), Oral, qDay, PRN Allergies Cymbalta ([place]) traMADol (Unknown) traZODone ([place]) Social History Alcohol Use: Current. Type: Wine. Frequency: 1-2 times per year., 11/24/2021 Employment/School Status: Unemployed., 01/21/2022 Home/Environment Domestic Concerns: None. Living situation: Home/Independent. Primary Motion Picture Commentator: Selfcare. Lives In: Single level home. Current Home Treatments Blood Pressure monitoring. Professional Skilled Services or Special Community Resources None. Financial concerns: No., 04/29/2022 Nutrition/Health Caffeine intake amount: coffee/pop/ tea 2-3 servings daily., 11/24/2021 Substance Abuse Use: Past., 11/24/2021 Tobacco Nicotine Use: 10 or more cigarettes (1/2 pack or more)/day in last 30 days., 11/24/2021 Family History Alcohol abuse: Father. Asthma: Brother. Diabetes: Mother. Hypercholesterolemia: Mother. Hypertension: Mother. Kidney disease: Mother. Immunizations No qualifying data available. Digitally Signed by JOSE ECHEVARRIA MD on 05/02/2022 03:33 PM Digitally Signed by FRAN MOREAU DO on 05/03/2022 09:[address] [facility] 05-02-2022 Infectious disease Consult note Date of Service 05/02/2022 Reason for Consultation Left arm abscess Referring Physician Dr. 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 on 05/02 for left arm pain and cellulitis. She was admitted to [facility] on 315 and was transferred to [place] for further management. Prior to admission, patient was started on Keflex with no improvement. In the ED, patient received vancomycin and Zosyn then was switched to vancomycin and ceftriaxone. X-ray of the left hand showed no abnormality. X-ray of the forearm showed no abnormality. MRI of the forearm completed on 05/01 showed diffuse cellulitis of the forearm and hand without rim-enhancing fluid collection to suggest abscess with mildly enhanced deep intramuscular fluid of the flexor compartment of the forearm with no evidence of osteomyelitis. Multiple orthopedics were consulted and refused to take the patient for surgery. Blood cultures 04/29 showed no growth to date. Doppler of left upper extremity was completed which was negative. Initial labs showed no leukocytosis, ESR 65, creatinine 1.12, and CRP 15.1. Repeat labs here show no leukocytosis with creatinine 1.11, alk phos 241, and AST 38. Patient is afebrile on room air. Deep wound cultures from 04/29 are group A hemolytic strep along with staph aureus and 05/01 pending. Current antibiotic regimen is Zosyn and vancomycin. Wound care and ID consulted for left arm cellulitis. Repeat BC show no growth to date. Patient was seen at the bedside. She is agitated because she is unable to eat or drink. She states that her left arm is improving and she is able to move her fingers now compared to yesterday. Reports a chronic left arm wound. Declined surgery and would just like to watch and wait. Denies fever or chills. Denies malaise. Denies nausea, vomiting or diarrhea. Declines implantable devices. Review of Systems Review of Systems: Reviewed in detail, including general health, HEENT, cardiovascular, respiratory, gastrointestinal, genitourinary, endocrine, musculoskeletal, neurologic, vascular, skin, and psychiatric. All are negative except for those listed in the History of Present Illness Physical Exam Vitals and Measurements T: 37.2 C (Oral) TMIN: 36.3 C (Oral) TMAX: 37.2 C (Oral) HR: 94(Monitored) RR: 18 BP: 159/71 SpO2: 97% HT: 137.2 cm WT: 44.8 kg BMI: 23.8 Weight Dosing Weight: 44.8 kg (05/02/22) General: Alert, appropriate, agitated in no acute distress. Skin: Left arm/leg with obvious deformity, very undeveloped compared to the right side. Left arm with chronic wound with +2 edema to the left arm and left hand with possible fluid. Diffuse erythema with surrounding cellulitis. HEENT: Head is normocephalic and atraumatic. PERRLA. [place] oral mucosa. Neck: Supple. No lymphadenopathy. Lungs: Clear and diminished on RA. Cardiovascular: Regular rate and rhythm, S1S2, no murmur. Abdomen: Abdomen is soft, nontender, nondistended. BS present. Extremities: No clubbing, cyanosis or edema. Peripheral pulses palpable. No calf tenderness. Adequate peripheral circulation. Neurological: The patient is awake, oriented to person, place and time. Following simple commands, moves all extremities. Lab Results 05/02 06:17 WBC: 9.0 Hgb: 10.9 L Hct: 32.5 L Platelet: 308 Neutrophil %: 76.0 H Protime: 10.8 PT International Ratio: 0.9 Glucose Level: 86 Sodium Level: 145 Potassium Level: 3.8 BUN: 11.0 Creatinine Lvl (s): 1.11 Imaging Results and Diagnostics X-ray of the left forearm and MRI completed at [facility]. Assessment/Plan 1. Cellulitis of the left forearm, possible abscess 2. Concern for compartment syndrome 3. Elevated ESR and CRP 4. Hx of scleroderma and underdeveloped left arm/leg Cellulitis of the left forearm, possible abscess. Imaging reviewed. No leukocytosis and patient is afebrile. Left arm with extensive erythema and cellulitis. Plastics consulted, refusing to see patient. Will consult orthopedics for further evaluation. At this time, patient was not agreeable about surgical intervention. Will switch Zosyn to ceftriaxone and continue vancomycin. If orthopedic feels that it is outside their scope, will consider possible transfer to [facility] for further evaluation. Concern for compartment syndrome, orthopedics consulted. Will await for further recommendations. Elevated ESR and CRP, ESR 65 and CRP 15.1. Concerning for infection. History of scleroderma and underdeveloped left arm/left leg. Patient has had diagnosis since 6 years old and was unable to provide further history as far as why her limbs are smaller on the left side. Due to special diagnoses, multiple orthopedics due to being outside their scope. Consider evaluation if orthopedics is unable to do any intervention on this patient. This is a shared/split visit with Dr. Matthias Keller and Marielena Tang. Discussed with the patient at the bedside. Discussed with the primary care team of possible transfer. Problem List/Past Medical History Ongoing B12 deficiency Blindness of left eye BMI 23.0-23.9, adult Breast cancer screening Carpal tunnel syndrome, right Cellulitis of left arm Chronic pain Constipation Degenerative joint disease (DJD) of lumbar spine Depression with anxiety Encounter for immunization Encounter for osteoporosis screening in asymptomatic postmenopausal patient GERD (gastroesophageal reflux disease) Golfers elbow of right upper extremity Hemorrhoids High cholesterol Insomnia Insomnia Left lumbosacral radiculopathy Lesion of right thigh bone Muscle spasms of both lower extremities Neck pain Need for vaccination Osteoarthritis of right hip Osteoporosis Postmenopausal Right hip pain Sheltered homelessness Soft tissue mass Vitamin B12 deficiency Vitamin D deficiency Historical No qualifying data Procedure/Surgical History Injection of steroid into hip joint- right: 04/20/22 Injection into shoulder joint- right: 11/12/21 Ablation: 06/2020 Golfer's elbow: 2017 Carpal tunnel: 2016 Blind left eye: 2013 Skin graft: 1988 Miscellaneous Medications Inpatient amitriptyline, 50 mg= 1 tab(s), Oral, qHS atorvastatin, 20 mg= 1 tab(s), Oral, qDay cholecalciferol 1250 mcg (50,000 intl units) oral capsule, 1250 mcg= 1 cap(s), Oral, qWeek Claritin, 10 mg= 1 tab(s), Oral, qDay, PRN DuoNeb, 3 mL, Inhalation, q4hRT, PRN eszopiclone, 3 mg= 1 tab(s), Oral, qHS guaiFENesin, 200 mg= 10 mL, Oral, q4h, PRN melatonin, 3 mg= 1 tab(s), Oral, qHS, PRN Miralax Powder Packet, 17 gram(s)= 15 mL, Oral, qDay, PRN morphine, 1 mg= 0.5 mL, IV Push, q4h, PRN NS 1,000 mL, 1000 mL, Intravenous Percocet 325/5, 1 tab(s), Oral, q4h, PRN prochlorperazine, 5 mg= 1 mL, IV Push, q6h, PRN Protonix, 40 mg= 1 tab(s), Oral, qDayAC TriCor 48 mg oral tablet, 48 mg= 1 tab(s), Oral, qDayM Tylenol, 650 mg= 2 tab(s), Oral, q4h, PRN Tylenol, 650 mg= 2 tab(s), Oral, q4h, PRN vancomycin IVPB, 750 mg= 250 mL, 15 mg/kg, IV Piggyback, q24h Zanaflex, 8 mg= 2 tab(s), Oral, qHS Zofran, 4 mg= 2 mL, IV Push, q4h, PRN Zosyn, 3.375 gram(s)= 50 mL, IV Piggyback, q12h Home acetaminophen-oxycodone 325 mg-7.5 mg oral tablet, 1 tab(s), Oral, q6h, PRN amitriptyline 50 mg oral tablet, 50 mg= 1 tab(s), Oral, qHS atorvastatin 20 mg oral tablet, 20 mg= 1 tab(s), Oral, qDay cholecalciferol 1250 mcg (50,000 intl units) oral capsule, 1250 mcg= 1 cap(s), Oral, qWeek, 3 refills dexlansoprazole 60 mg oral delayed release capsule, 60 mg= 1 cap(s), Oral, qDay, 3 refills DME MISCellaneous, See Instructions, Has Not Started eszopiclone 3 mg oral tablet, 3 mg= 1 tab(s), Oral, qHS fenofibric acid 45 mg oral delayed release capsule, 45 mg= 1 cap(s), Oral, qDay Prolia 60 mg/mL subcutaneous solution, 60 mg= 1 mL, Subcutaneous, q6mo, 1 refills, New Prescription Zanaflex 4 mg oral tablet, 8 mg= 2 tab(s), Oral, qHS Zyrtec 10 mg oral tablet, 10 mg= 1 tab(s), Oral, qDay, PRN Allergies Cymbalta ([facility]) traMADol (Unknown) traZODone ([facility]) Social History Alcohol Use: Current. Type: Wine. Frequency: 1-2 times per year., 11/24/2021 Employment/School Status: Unemployed., 01/21/2022 Home/Environment Domestic Concerns: None. Living situation: Home/Independent. Primary Motion Picture Commentator: Selfcare. Lives In: Single level home. Current Home Treatments Blood Pressure monitoring. Professional Skilled Services or Special Community Resources None. Financial concerns: No., 04/29/2022 Nutrition/Health Caffeine intake amount: coffee/pop/ tea 2-3 servings daily., 11/24/2021 Substance Abuse Use: Past., 11/24/2021 Tobacco Nicotine Use: 10 or more cigarettes (1/2 pack or more)/day in last 30 days., 11/24/2021 Family History Alcohol abuse: Father. Asthma: Brother. Diabetes: Mother. Hypercholesterolemia: Mother. Hypertension: Mother. Kidney disease: Mother. Immunizations No qualifying data available. Digitally Signed by JARRETT LUGO on 05/02/2022 01:25 PM Digitally Signed by JARRETT LUGO on 05/02/2022 01:29 PM Digitally Signed by JARRETT LUGO on 05/02/2022 01:[address] [facility] 05-02-2022 Orthopaedic surgery Consult note Date of Service 05/02/22 Reason for Consultation LUE soft tissue infection Referring Physician ID History of Present Illness 51-year-old female with past medical history of scleroderma admitted to [facility] for concerns of possible compartment syndrome of her left forearm. She was seen at [facility] and had advanced imaging performed there which showed that there might be fluid collecting within the compartments of her left forearm musculature. After multiple attempts at transferring her to a different facility she was transferred to [place]. 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 She reports intact sensation and baseline range of motion of the extremity. She states that she has had similar symptoms in the past which have resolved with several weeks of IV antibiotics. She is anxious about the prospect of surgery since she states that wounds take a very long time to heal. Review of Systems See above Physical Exam Vitals and Measurements T: 37.0 C (Oral) TMIN: 36.3 C (Oral) TMAX: 37.2 C (Oral) HR: 86 RR: 18 BP: 159/85 SpO2: 95% HT: 137.2 cm WT: 44.8 kg BMI: 23.8 Weight Dosing Weight: 44.8 kg (05/02/22) General: The patient's left side of her body has diffuse evidence of scleroderma. Her left eye is closed shut, her left leg is cachectic. Left upper extremity: Severe cachexia and muscle loss to the entire left upper extremity resulting in a limb that appears almost skeletal like. And is moderately swollen. There is diffuse erythema and and discrete areas of minor skin breakdown with mostly serosanguineous drainage. Compartments are nontender to palpation. The patient has the ability to make a strong pinch embedded linux developer with the thumb flexing into the index finger. She states this is approximately her baseline strength. She states that passive flexion and extension of the fingers of the hand do not cause increased pain. She reports her joints in that extremity are at their baseline level of range of motion. She reports moderate throbbing pain but states that this is improving from prior. Lab Results 05/02 06:17 WBC: 9.0 Hgb: 10.9 L Hct: 32.5 L Platelet: 308 Neutrophil %: 76.0 H Protime: 10.8 PT International Ratio: 0.9 Glucose Level: 86 Sodium Level: 145 Potassium Level: 3.8 BUN: 11.0 Creatinine Lvl (s): 1.11 Imaging Results and Diagnostics MRI from [facility] of the L forearm: Reviewed. No definitive evidence of abscess formation, necrotizing fasciitis/gas gangrene. X-ray of the left forearm reviewed. Extensive calcifications noted throughout entire left upper extremity. Hand and wrist are fixed in a flexed posture. No acute bony injury appreciated. Assessment/Plan Insomnia 51 yo F with PMH scleroderma presents with L forearm soft tissue infection. No discrete collection noted. Low concern for compartment syndrome or necrotizing fasciitis at this time. -Elevate the L arm in a similar fashion to how this was performed today by me -Perform local wound care as needed. Daily dressing changes with nonstick gauze and kerlix -continue abx per ID -She may follow up with her Ortho doc in [place] -Discussed with attending Problem List/Past Medical History Ongoing B12 deficiency Blindness of left eye BMI 23.0-23.9, adult Breast cancer screening Carpal tunnel syndrome, right Cellulitis of left arm Chronic pain Constipation Degenerative joint disease (DJD) of lumbar spine Depression with anxiety Encounter for immunization Encounter for osteoporosis screening in asymptomatic postmenopausal patient GERD (gastroesophageal reflux disease) Franck elbow of right upper extremity Hemorrhoids High cholesterol Insomnia Insomnia Left lumbosacral radiculopathy Lesion of right thigh bone Muscle spasms of both lower extremities Neck pain Need for vaccination Osteoarthritis of right hip Osteoporosis Postmenopausal Right hip pain Sheltered homelessness Soft tissue mass Vitamin B12 deficiency Vitamin D deficiency Historical No qualifying data Procedure/Surgical History Injection of steroid into hip joint- right: 04/20/22 Injection into shoulder joint- right: 11/12/21 Ablation: 06/2020 Goljessica's elbow: 2016 Carpal tunnel: 2015 Blind left eye: 2013 Skin graft: 1988 Miscellaneous Medications Inpatient amitriptyline, 50 mg= 1 tab(s), Oral, qHS atorvastatin, 20 mg= 1 tab(s), Oral, qDay cefTRIAXone, 2 gram(s)= 20 mL, IV Push (INT), qDay cholecalciferol 1250 mcg (50,000 intl units) oral capsule, 1250 mcg= 1 cap(s), Oral, qWeek Claritin, 10 mg= 1 tab(s), Oral, qDay, PRN DuoNeb, 3 mL, Inhalation, q4hRT, PRN eszopiclone, 3 mg= 1 tab(s), Oral, qHS guaiFENesin, 200 mg= 10 mL, Oral, q4h, PRN melatonin, 3 mg= 1 tab(s), Oral, qHS, PRN Miralax Powder Packet, 17 gram(s)= 15 mL, Oral, qDay, PRN morphine, 1 mg= 0.5 mL, IV Push, q4h, PRN Percocet 325/5, 1 tab(s), Oral, q4h, PRN prochlorperazine, 5 mg= 1 mL, IV Push, q6h, PRN Protonix, 40 mg= 1 tab(s), Oral, qDayAC TriCor 48 mg oral tablet, 48 mg= 1 tab(s), Oral, qDayM Tylenol, 650 mg= 2 tab(s), Oral, q4h, PRN Tylenol, 650 mg= 2 tab(s), Oral, q4h, PRN vancomycin IVPB, 750 mg= 250 mL, 15 mg/kg, IV Piggyback, q24h Zanaflex, 8 mg= 2 tab(s), Oral, qHS Zofran, 4 mg= 2 mL, IV Push, q4h, PRN Home acetaminophen-oxycodone 325 mg-7.5 mg oral tablet, 1 tab(s), Oral, q6h, PRN amitriptyline 50 mg oral tablet, 50 mg= 1 tab(s), Oral, qHS atorvastatin 20 mg oral tablet, 20 mg= 1 tab(s), Oral, qDay cholecalciferol 1250 mcg (50,000 intl units) oral capsule, 1250 mcg= 1 cap(s), Oral, qWeek, 3 refills dexlansoprazole 60 mg oral delayed release capsule, 60 mg= 1 cap(s), Oral, qDay, 3 refills DME MISCellaneous, See Instructions, Has Not Started eszopiclone 3 mg oral tablet, 3 mg= 1 tab(s), Oral, qHS fenofibric acid 45 mg oral delayed release capsule, 45 mg= 1 cap(s), Oral, qDay Prolia 60 mg/mL subcutaneous solution, 60 mg= 1 mL, Subcutaneous, q6mo, 1 refills, New Prescription Zanaflex 4 mg oral tablet, 8 mg= 2 tab(s), Oral, qHS Zyrtec 10 mg oral tablet, 10 mg= 1 tab(s), Oral, qDay, PRN Allergies Cymbalta ([facility]) traMADol (Unknown) traZODone ([facility]) Social History Alcohol Use: Current. Type: Wine. Frequency: 1-2 times per year., 11/24/2021 Employment/School Status: Unemployed., 01/21/2022 Home/Environment Domestic Concerns: None. Living situation: Home/Independent. Primary Motion Picture Commentator: Selfcare. Lives In: Single level home. Current Home Treatments Blood Pressure monitoring. Professional Skilled Services or Special Community Resources None. Financial concerns: No., 04/29/2022 Nutrition/Health Caffeine intake amount: coffee/pop/ tea 2-3 servings daily., 11/24/2021 Substance Abuse Use: Past., 11/24/2021 Tobacco Nicotine Use: 10 or more cigarettes (1/2 pack or more)/day in last 30 days., 11/24/2021 Family History Alcohol abuse: Father. Asthma: Brother. Diabetes: Mother. Hypercholesterolemia: Mother. Hypertension: Mother. Kidney disease: Mother. Immunizations No qualifying data available. Digitally Signed by OJSE ECHEVARRIA MD on 05/02/2022 03:33 PM Digitally Signed by FRAN MOREAU DO on 05/03/2022 09:38 AM [facility] Inpatient Medicine Hospitalist History and Physical Date of Admission: 05/02/2022 Chief complaint: Left arm cellulitis History of present illness: History is taken from talking with the nurse practitioner at [facility] as well as talking with the patient. 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 Patient was admitted to [facility] on 04/29/2022. She presented with left arm pain and cellulitis. She had developed an ulcer in her forearm several days prior to admission. She reports that she has intermittent cellulitis and ulceration of the left arm secondary to scleroderma. Patient prior to admission at [place] was on Keflex with no improvement in her symptoms. In the emergency department in [place] she was given vancomycin and Zosyn. The antibiotics were then switched to vancomycin and ceftriaxone. An MRI of the forearm was done yesterday which showed diffuse cellulitis of the forearm and hand without rim-enhancing fluid collection to suggest abscess. Mildly enhancing deep intramuscular fluid of the flexor compartment of the forearm. Correlation for signs of deep fascial infectious process versus compartment syndrome. No evidence of osteomyelitis. Because of the MRI findings the decision was made to have the patient evaluated by orthopedic surgery for possible drainage. The nurse practitioner contacted [place] [facility] telecommunications field engineer multiple times who declined to see the patient. [facility] was contacted and did not have any beds for 24 hours. [facility] and reported that they would only accept trauma patients. [facility] declined to take the patient stating that general orthopedic surgery could do the drainage. [facility]ics was also notified who stated that it was out of their scope of practice. [facility] also declined to take the patient. For this reason the patient will at least be transferred here where there are more specialty services available. Patient continues to have pain in her left forearm however she tells me that it is improving since she has been on IV antibiotics. She does have swelling/erythema but does not appear to be significant to the point of being compartment syndrome. She was able to move her digits without any pain. Pulses were present although diminished. Past medical history: B12 deficiency BMI 23.0-23.9, adult Blindness of left eye Breast cancer screening Carpal tunnel syndrome, right Cellulitis of left arm Chronic pain Constipation Degenerative joint disease (DJD) of lumbar spine Depression with anxiety Encounter for immunization Encounter for osteoporosis screening in asymptomatic postmenopausal patient GERD (gastroesophageal reflux disease) Golfers elbow of right upper extremity Hemorrhoids High cholesterol Hypercholesteremia Insomnia Insomnia Left lumbosacral radiculopathy Lesion of right thigh bone Muscle spasms of both lower extremities Neck pain Need for vaccination Osteoarthritis of right hip Osteoporosis Postmenopausal Right hip pain Scleroderma Sheltered homelessness Soft tissue mass Tobacco use Vitamin B12 deficiency Vitamin D deficiency Injection of steroid into hip joint- right: 04/20/22 Injection into shoulder joint- right: 11/12/21 Ablation: 06/2020 Golfer's elbow: 2017 Carpal tunnel: 2016 Blind left eye: 2013 Skin graft: 1988 Miscellaneous Family history: Mother (): Diabetes; Hypercholesterolemia; Hypertension; Kidney disease Father (): Alcohol abuse Brother: Asthma Social history: Smokes a half a pack of cigarettes a day Medications: Home Medications (13) Active acetaminophen-oxycodone 325 mg-7.5 mg oral tablet 1 tab(s), PRN, Oral, q6h amitriptyline 50 mg oral tablet 50 mg = 1 tab(s), Oral, qHS atorvastatin 20 mg oral tablet 20 mg = 1 tab(s), Oral, qDay cefTRIAXone 2 gram(s), IV Piggyback, qDay cholecalciferol 1250 mcg (50,000 intl units) oral capsule 1,250 mcg = 1 cap(s), Oral, qWeek dexlansoprazole 60 mg oral delayed release capsule 60 mg = 1 cap(s), Oral, qDay DME MISCellaneous See Instructions eszopiclone 3 mg oral tablet 3 mg = 1 tab(s), Oral, qHS fenofibric acid 45 mg oral delayed release capsule 45 mg = 1 cap(s), Oral, qDay Prolia 60 mg/mL subcutaneous solution 60 mg = 1 mL, Subcutaneous, q6mo vancomycin 1.25 g intravenous injection Zanaflex 4 mg oral tablet 8 mg = 2 tab(s), Oral, qHS Zyrtec 10 mg oral tablet 10 mg = 1 tab(s), PRN, Oral, qDay Allergies: Cymbalta ([facility]) traMADol (Unknown) traZODone ([facility]) Review of systems: See HPI for pertinent positives and negatives. All other review of systems have been reviewed and they are negative. 36.6, 76, 18, 141/86, 95% room air. Physical examination: HEENT: No Pallor, No Icterus Cardiac: RRR, No murmur Lungs: CTA, good air entry Abdomen: Soft Non tender Musculoskeletal: No joint pains or swelling Extremities: Left arm erythema, warmth and mild tenderness to touch. Significant cellulitis from the hand extending up her arm. Does have pulses although diminished. Was able to move her fingers without pain. Neurological: Alert, no deficits Skin: No rash, no nodules Labs: As mentioned in HPI Assessment and plan: Patient presents on 05/02/2022 as a transfer from [facility] due to having significant left arm cellulitis. Severe left arm extensive cellulitis with an open wound in the setting of a patient with scleroderma. MRI showed diffuse cellulitis without abscess. Did show mildly enhancing deep intramuscular fluid of the flexor compartment of the forearm. Per radiology correlate for signs of deep fascial infectious process versus compartment syndrome. No evidence of osteomyelitis. Left upper extremity Doppler ultrasound did not show any concerning finding. Blood and wound cultures are in process. ESR 65 and CRP 15.1. N.p.o. with IV fluids in case of procedure. We will continue the patient on vancomycin and Zosyn. We will consult infectious disease. We will consult plastic surgery. From exam and from patient's symptoms I do not think that this is compartment syndrome. She is able to move her fingers without pain. She reports that her pain is improving with the antibiotics. Does have pulses although diminished and are chronically diminished secondary to scleroderma. I do think that this is most likely all from severe cellulitis with an open wound. 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 Continue home medications Chronic scleroderma. Follows with rheumatology. Hyperlipidemia. Continue statin Chronic back pain follows with pain management Osteoporosis. Continue home medications Chronic degenerative joint disease Tobacco abuse. Continue encouragement to discontinue tobacco use especially in the setting of scleroderma. Prophylaxis SCDs CODE STATUS full code Future Appointments Appointment Date:05/25/2022 10:45:00 AM Scheduled Provider:SHRAVAN LUCAS MD Location:[facility] PM Appointment Type:PM OV Appointment Date:06/12/2022 02:00:00 PM Scheduled Provider:SOLIS SHELL Location:[facility] Appointment Type:PC OV Controlled Medication Future Scheduled Tests Laboratory* Hepatic Function Panel 02/02/22 * Thyroid Stimulating Hormone 02/02/22 * PTH, Intact 02/02/22 * Vitamin D Level 02/02/[address] [facility] 03-18-2023 Infectious disease Consult note Date of Service 05/02/2022 Reason for Consultation Left arm abscess Referring Physician Dr. 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 on 05/02 for left arm pain and cellulitis. She was admitted to [facility] on 315 and was transferred to [place] for further management. Prior to admission, patient was started on Keflex with no improvement. In the ED, patient received vancomycin and Zosyn then was switched to vancomycin and ceftriaxone. X-ray of the left hand showed no abnormality. X-ray of the forearm showed no abnormality. MRIof the forearm completed on 05/01 showed diffuse cellulitis of the forearm and hand without rim-enhancing fluid collection to suggest abscess with mildly enhanced deep intramuscular fluid of the flexor compartment of the forearm with no evidence of osteomyelitis. Multiple orthopedics were consulted and refused to take the patient for surgery. Blood cultures 04/29 showed no growth to date. Doppler of left upper extremity was completed which was negative. Initial labs showed no leukocytosis, ESR 65, creatinine 1.12, and CRP 15.1. Repeat labs here show no leukocytosis with creatinine 1.11, alk phos 241, and AST 38. Patient is afebrile on room air. Deep wound cultures from 04/29 are group A hemolytic strep along with staph aureus and 05/01 pending. Current antibiotic regimen is Zosyn and vancomycin. Wound care and ID consulted for left arm cellulitis. Repeat BC show no growth to date. Patient was seen at the bedside. She is agitated because she is unable to eat or drink. She states that her left arm is improving and she is able to move her fingers now compared to yesterday. Reports a chronic left arm wound. Declined surgery and would just like to watch and wait. Denies fever or chills. Denies malaise. Denies nausea, vomiting or diarrhea. Declines implantable devices. Review of Systems Review of Systems: Reviewed in detail, including general health, HEENT, cardiovascular, respiratory, gastrointestinal, genitourinary, endocrine, musculoskeletal, neurologic, vascular, skin, and psychiatric. All are negative except for those listed in the History of Present Illness Physical Exam Vitals and Measurements T: 37.2 C (Oral) TMIN: 36.3 C (Oral) TMAX: 37.2 C (Oral) HR: 94(Monitored) RR: 18 BP: 159/71 SpO2: 97% HT: 137.2 cm WT: 44.8 kg BMI: 23.8 Weight Dosing Weight: 44.8 kg (05/02/22) General: Alert, appropriate, agitated in no acute distress. Skin: Left arm/leg with obvious deformity, very undeveloped compared to the right side. Left arm with chronic wound with +2 edema to the left arm and left hand with possible fluid. Diffuse erythema with surrounding cellulitis. HEENT: Head is normocephalic and atraumatic. PERRLA. [place] oral mucosa. Neck: Supple. No lymphadenopathy. Lungs: Clear and diminished on RA. Cardiovascular: Regular rate and rhythm, S1S2, no murmur. Abdomen: Abdomen is soft, nontender, nondistended. BS present. Extremities: No clubbing, cyanosis or edema. Peripheral pulses palpable. No calf tenderness. Adequate peripheral circulation. Neurological: The patient is awake, oriented to person, place and time. Following simple commands, moves all extremities. Lab Results 05/02 06:17 WBC: 9.0 Hgb: 10.9 L Hct: 32.5 L Platelet: 308 Neutrophil %: 76.0 H Protime: 10.8 PT International Ratio: 0.9 Glucose Level: 86 Sodium Level: 145 Potassium Level: 3.8 BUN: 11.0 Creatinine Lvl (s): 1.11 Imaging Results and Diagnostics X-ray of the left forearm and MRI completed at [facility]. Assessment/Plan 1. Cellulitis of the left forearm, possible abscess 2. Concern for compartment syndrome 3. Elevated ESR and CRP 4. Hx of scleroderma and underdeveloped left arm/leg Cellulitis of the left forearm, possible abscess. Imaging reviewed. No leukocytosis and patient is afebrile. Left arm with extensive erythema and cellulitis. Plastics consulted, refusing to see patient. Will consult orthopedics for further evaluation. At this time, patient was not agreeable about surgical intervention. Will switch Zosyn to ceftriaxone and continue vancomycin. If orthopedic feels that it is outside their scope, will consider possible transfer to [facility] for further evaluation. Concern for compartment syndrome, orthopedics consulted. Will await for further recommendations. Elevated ESR and CRP, ESR 65 and CRP 15.1. Concerning for infection. History of scleroderma and underdeveloped left arm/left leg. Patient has had diagnosis since 6 years old and was unable to provide further history as far as why her limbs are smaller on the left side. Due to special diagnoses, multiple orthopedics due to being outside their scope. Consider evaluation if orthopedics is unable to do any intervention on this patient. This is a shared/split visit with Dr. Matthias Keller and Marielena Tang. Discussed with the patient at the bedside. Discussed with the primary care team of possible transfer. Problem List/Past Medical History Ongoing B12 deficiency Blindness of left eye BMI 23.0-23.9, adult Breast cancer screening Carpal tunnel syndrome, right Cellulitis of left arm Chronic pain Constipation Degenerative joint disease (DJD) of lumbar spine Depression with anxiety Encounter for immunization Encounter for osteoporosis screening in asymptomatic postmenopausal patient GERD (gastroesophageal reflux disease) Golfers elbow of right upper extremity Hemorrhoids High cholesterol Insomnia Insomnia Left lumbosacral radiculopathy Lesion of right thigh bone Muscle spasms of both lower extremities Neck pain Need for vaccination Osteoarthritis of right hip Osteoporosis Postmenopausal Right hip pain Sheltered homelessness Soft tissue mass Vitamin B12 deficiency Vitamin D deficiency Historical No qualifying data Procedure/Surgical History Injection of steroid into hip joint- right: 04/20/22 Injection into shoulder joint- right: 11/12/21 Ablation: 06/2020 Golfer's elbow: 2016 Carpal tunnel: 2015 Blind left eye: 2013 Skin graft: 1988 Miscellaneous Medications Inpatient amitriptyline, 50 mg= 1 tab(s), Oral, qHS atorvastatin, 20 mg= 1 tab(s), Oral, qDay cholecalciferol 1250 mcg (50,000 intl units) oral capsule, 1250 mcg= 1 cap(s), Oral, qWeek Claritin, 10 mg= 1 tab(s), Oral, qDay, PRN DuoNeb, 3 mL, Inhalation, q4hRT, PRN eszopiclone, 3 mg= 1 tab(s), Oral, qHS guaiFENesin, 200 mg= 10 mL, Oral, q4h, PRN melatonin, 3 mg= 1 tab(s), Oral, qHS, PRN Miralax Powder Packet, 17 gram(s)= 15 mL, Oral, qDay, PRN morphine, 1 mg= 0.5 mL, IV Push, q4h, PRN NS 1,000 mL, 1000 mL, Intravenous Percocet 325/5, 1 tab(s), Oral, q4h, PRN prochlorperazine, 5 mg= 1 mL, IV Push, q6h, PRN Protonix, 40 mg= 1 tab(s), Oral, qDayAC TriCor 48 mg oral tablet, 48 mg= 1 tab(s), Oral, qDayM Tylenol, 650 mg= 2 tab(s), Oral, q4h, PRN Tylenol, 650 mg= 2 tab(s), Oral, q4h, PRN vancomycin IVPB, 750 mg= 250 mL, 15 mg/kg, IV Piggyback, q24h Zanaflex, 8 mg= 2 tab(s), Oral, qHS Zofran, 4 mg= 2 mL, IV Push, q4h, PRN Zosyn, 3.375 gram(s)= 50 mL, IV Piggyback, q12h Home acetaminophen-oxycodone 325 mg-7.5 mg oral tablet, 1 tab(s), Oral, q6h, PRN amitriptyline 50 mg oral tablet, 50 mg= 1 tab(s), Oral, qHS atorvastatin 20 mg oral tablet, 20 mg= 1 tab(s), Oral, qDay cholecalciferol 1250 mcg (50,000 intl units) oral capsule, 1250 mcg= 1 cap(s), Oral, qWeek, 3 refills dexlansoprazole 60 mg oral delayed release capsule, 60 mg= 1 cap(s), Oral, qDay, 3 refills DME MISCellaneous, See Instructions, Has Not Started eszopiclone 3 mg oral tablet, 3 mg= 1 tab(s), Oral, qHS fenofibric acid 45 mg oral delayed release capsule, 45 mg= 1 cap(s), Oral, qDay Prolia 60 mg/mL subcutaneous solution, 60 mg= 1 mL, Subcutaneous, q6mo, 1 refills, New Prescription Zanaflex 4 mg oral tablet, 8 mg= 2 tab(s), Oral, qHS Zyrtec 10 mg oral tablet, 10 mg= 1 tab(s), Oral, qDay, PRN Allergies Cymbalta ([facility]) traMADol (Unknown) traZODone ([facility]) Social History Alcohol Use: Current. Type: Wine. Frequency: 1-2 times per year., 11/24/2021 Employment/School Status: Unemployed., 01/21/2022 Home/Environment Domestic Concerns: None. Living situation: Home/Independent. Primary Motion Picture Commentator: Selfcare. Lives In: Single level home. Current Home Treatments Blood Pressure monitoring. Professional Skilled Services or Special Community Resources None. Financial concerns: No., 04/29/2022 Nutrition/Health Caffeine intake amount: coffee/pop/ tea 2-3 servings daily., 11/24/2021 Substance Abuse Use: Past., 11/24/2021 Tobacco Nicotine Use: 10 or more cigarettes (1/2 pack or more)/day in last 30 days., 11/24/2021 Family History Alcohol abuse: Father. Asthma: Brother. Diabetes: Mother. Hypercholesterolemia: Mother. Hypertension: Mother. Kidney disease: Mother. Immunizations No qualifying data available. Digitally Signed by JARRETT LUGO on 05/02/2022 01:25 PM Digitally Signed by JARRETT LUGO on 05/02/2022 01:29 PM Digitally Signed by JARRETT LUGO on 05/02/2022 01:[address] [facility] [address] [id number] History and physical note [facility] Medicine Hospitalist History and Physical Date of Admission: 05/02/2022 Chief complaint: Left arm cellulitis History of present illness: History is taken from talking with the nurse practitioner at [facility] as well as talking with the patient. 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 Patient was admitted to [facility] on 04/29/2022. She presented with left arm pain and cellulitis. She had developed an ulcer in her forearm several days prior to admission. She reports that she has intermittent cellulitis and ulceration of the left arm secondary to scleroderma. Patient priorto admission at [place] was on Keflex with no improvement in her symptoms. In the emergency department in [place] she was given vancomycin and Zosyn. The antibiotics were then switched to vancomycin and ceftriaxone. An MRI of the forearm was done yesterday which showed diffuse cellulitis of the forearm and hand without rim-enhancing fluid collection to suggest abscess. Mildly enhancing deep intramuscular fluid of the flexor compartment of the forearm. Correlation for signs of deep fascial infectious process versus compartment syndrome. No evidence of osteomyelitis. Because of the MRI findings the decision was made to have the patient evaluated by orthopedic surgery for possible drainage. The nurse practitioner contacted [facility] telecommunications field engineer multiple times who declined to see the patient. [facility] was contacted and did not have any beds for 24 hours. [facility] was contacted and reported that they would only accept trauma patients. [facility] declined to take the patient stating that general orthopedic surgery could do the drainage. [facility] was also notified who stated that it was out of their scope of practice. [facility] also declined to take the patient. For this reason the patient will at least be transferred here where there are more specialty services available. Patient continues to have pain in her left forearm however she tells me that it is improving since she has been on IV antibiotics. She does have swelling/erythema but does not appear to be significant to the point of being compartment syndrome. She was able to move her digits without any pain. Pulses were present although diminished. Past medical history: B12 deficiency BMI 23.0-23.9, adult Blindness of left eye Breast cancer screening Carpal tunnel syndrome, right Cellulitis of left arm Chronic pain Constipation Degenerative joint disease (DJD) of lumbar spine Depression with anxiety Encounter for immunization Encounter for osteoporosis screening in asymptomatic postmenopausal patient GERD (gastroesophageal reflux disease) Golfers elbow of right upper extremity Hemorrhoids High cholesterol Hypercholesteremia Insomnia Insomnia Left lumbosacral radiculopathy Lesion of right thigh bone Muscle spasms of both lower extremities Neck pain Need for vaccination Osteoarthritis of right hip Osteoporosis Postmenopausal Right hip pain Scleroderma Sheltered homelessness Soft tissue mass Tobacco use Vitamin B12 deficiency Vitamin D deficiency Injection of steroid into hip joint- right: 04/20/22 Injection into shoulder joint- right: 11/12/21 Ablation: 06/2020 Goljessica's elbow: 2016 Carpal tunnel: 2015 Blind left eye: 2013 Skin graft: 1988 Miscellaneous Family history: Mother (): Diabetes; Hypercholesterolemia; Hypertension; Kidney disease Father (): Alcohol abuse Brother: Asthma Social history: Smokes a half a pack of cigarettes a day Medications: Home Medications (13) Active acetaminophen-oxycodone 325 mg-7.5 mg oral tablet 1 tab(s), PRN, Oral, q6h amitriptyline 50 mg oral tablet 50 mg = 1 tab(s), Oral, qHS atorvastatin 20 mg oral tablet 20 mg = 1 tab(s), Oral, qDay cefTRIAXone 2 gram(s), IV Piggyback, qDay cholecalciferol 1250 mcg (50,000 intl units) oral capsule 1,250 mcg = 1 cap(s), Oral, qWeek dexlansoprazole 60 mg oral delayed release capsule 60 mg = 1 cap(s), Oral, qDay DME MISCellaneous See Instructions eszopiclone 3 mg oral tablet 3 mg = 1 tab(s), Oral, qHS fenofibric acid 45 mg oral delayed release capsule 45 mg = 1 cap(s), Oral, qDay Prolia 60 mg/mL subcutaneous solution 60 mg = 1 mL, Subcutaneous, q6mo vancomycin 1.25 g intravenous injection Zanaflex 4 mg oral tablet 8 mg = 2 tab(s), Oral, qHS Zyrtec 10 mg oral tablet 10 mg = 1 tab(s), PRN, Oral, qDay Allergies: Cymbalta ([facility]) traMADol (Unknown) traZODone ([facility]) Review of systems: See HPI for pertinent positives and negatives. All other review of systems have been reviewed and they are negative. 36.6, 76, 18, 141/86, 95% room air. Physical examination: HEENT: No Pallor, No Icterus Cardiac: RRR, No murmur Lungs: CTA, good air entry Abdomen: Soft Non tender Musculoskeletal: No joint pains or swelling Extremities: Left arm erythema, warmth and mild tenderness to touch. Significant cellulitis from the hand extending up her arm. Does have pulses although diminished. Was able to move her fingers without pain. Neurological: Alert, no deficits Skin: No rash, no nodules Labs: As mentioned in HPI Assessment and plan: Patient presents on 05/02/2022 as a transfer from [facility] due to having significant left arm cellulitis. Severe left arm extensive cellulitis with an open wound in the setting of a patient with scleroderma. MRI showed diffuse cellulitis without abscess. Did show mildly enhancing deep intramuscular fluidof the flexor compartment of the forearm. Per radiology correlate for signs of deep fascial infectious process versus compartment syndrome. No evidence of osteomyelitis. Left upper extremity Doppler ultrasound did not show any concerning finding. Blood and wound cultures are in process. ESR 65 and CRP 15.1. N.p.o. with IV fluids in case of procedure. We will continue the patient on vancomycin andZosyn. We will consult infectious disease. We will consult plastic surgery. From exam and from patie nt's symptoms I do not think that this is compartment syndrome. She is able to move her fingers without pain. She reports that her pain is improving with the antibiotics. Does have pulses although diminished and are chronically diminished secondary to scleroderma. I do think that this is most likely all from severe cellulitis with an open wound. 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 Continue home medications Chronic scleroderma. Follows with rheumatology. Hyperlipidemia. Continue statin Chronic back pain follows with pain management Osteoporosis. Continue home medications Chronic degenerative joint disease Tobacco abuse. Continue encouragement to discontinue tobacco use especially in the setting of scleroderma. Prophylaxis SCDs CODE STATUS full code Digitally Signed by ALEXIS JAMES MD on 05/02/2022 03:[address] [facility] [address] [facility] [id number] Note Date of Service 05/01/2022 Chief Complaint LUE pain Subjective 51-year-old female with past medical history significant for scleroderma, DJD, hyperlipidemia. Patient presented to [facility] emergency department on 04/29/2022 with left upper extremity cellulitis that failed outpatient treatment. She was started on Keflex but had increasing pain and erythema. In the emergency department white blood cell count was 15,000. 5% bands. CMP mostly unremarkable. Patient was given a dose of vancomycin and Zosyn in the emergency department and subsequently admitted for further evaluation. Antibiotics were changed to ceftriaxone 2 g as well as vancomycin. Overnight patient remained afebrile and hemodynamically stable with adequate oxygen saturations on room air. This morning white blood cell count has improved to 8,000. No bandemia. BMP unremarkable. On exam today, pt denies any fever or chills. No headache or dizziness. Denies chest pain, palpitations. No cough, dyspnea, sputum production. Denies N/V/D/C. No melena/hematochezia. No dysuria or hematuria. No new paresthesias. Still has left arm pain from tightness and edema. No improvement. Objective Vitals and Measurements T: 36.7 C (Oral) TMIN: 36.5 C (Oral) TMAX: 36.9 C (Oral) HR: 84(Monitored) RR: 20 BP: 144/72 SpO2: 96% WT: 46.7 kg Intake and Output 7AM Yesterday to 7AM Today Intake and Output (Last 24 hours) Intake Output Urine Count 2.00 Total Summary Total Intake 0.00 Total Output 0.00 Fluid Balance 0.00 Physical Exam GEN: Appears chronically ill CHEST: Normal S1 and S2. Rhythm is regular. Clear to auscultation, without rales, rhonchi, wheezing. ABD: Positive bowel sounds x 4 quads. Soft, nondistended, nontender. EXT: Left upper extremity and left lower extremity underdeveloped due to scleroderma. Edema left hand. NEURO: Sensation grossly intact SKIN: Left arm erythematous, warm, edematous. left Hand remains edematous and tight. Unable to fully flex her fingers. PSYCH: The mental examination revealed the patient was alert and oriented x 4 Weight Current Weight Dosing Weight: 46.6 kg (04/30/22) Current Weight: 46.7 kg (05/01/22) Dosing Weight: 44.5 kg (04/29/22) Medications Medications (20) Active Scheduled: (11) amitriptyline 25 mg tablet 50 mg 2 tab(s), Oral, qHS atorvastatin 10 mg tablet 20 mg 2 tab(s), Oral, qDay cefTRIAXone 2 gram(s), IV Piggyback, qDay loratadine 10 mg Tablet 10 mg 1 tab(s), Oral, qDay mupirocin 2% Ointment 22 Gram(s) tube 1 arash, Topical, TID Nicoderm patch REMOVAL 1 EA, Miscellaneous, Daily nicotine 21 mg/24 hr ER patch 21 mg 1 patch(es), Transdermal, q24h pantoprazole 20 mg EC tablet 40 mg 2 tab(s), Oral, qDayAC tiZANidine 4 mg tablet 4 mg 1 tab(s), Oral, BID vancomycin 750 mg 15 mL, IV Piggyback, q24h zolpidem 5 mg tablet 10 mg 2 tab(s), Oral, qHS Continuous: (0) PRN: (9) acetaminophen 325 mg Tablet 650 mg 2 tab(s), Oral, q4h acetaminophen 325 mg Tablet 650 mg 2 tab(s), Oral, q4h acetaminophen-OXYcodone 325 mg-5 mg Tablet 1.5 tab(s), Oral, q6h benzonatate 100 mg Capsule 100 mg 1 cap(s), Oral, TID calcium carbonate 500 mg Chewable 500 mg 1 tab(s), Chewed, TID guaifenesin 100 mg/5 mL 120 mL liquid 200 mg 10 mL, Oral, q4h melatonin 3 mg tablet 6 mg 2 tab(s), Oral, qHS morphine 2 mg/mL 1 mL syringe 2 mg 1 mL, IV Push, q3h ondansetron 2 mg/ 1 mL 2 mL INJ 4 mg 2 mL, IV Push, q4h Lab Results 05/01 05:11 WBC: 8.4 Hgb: 10.2 L Hct: 30.0 L Platelet: 288 Neutrophil %: 77.8 Glucose Level: 97 Sodium Level: 144 Potassium Level: 3.8 BUN: 12 Creatinine Lvl (s): 1.12 H 04/30 05:06 WBC: 13.1 H Hgb: 10.4 L Hct: 30.7 L Platelet: 292 Neutrophil %: 83.8 H Glucose Level: 104 Sodium Level: 137 Potassium Level: 3.8 BUN: 15 Creatinine Lvl (s): 0.89 Assessment/Plan 1. Cellulitis of left arm Ordered: 2. GERD (gastroesophageal reflux disease) 3. High cholesterol 4. Scleroderma 5. Tobacco use Left arm cellulitis continue vancomycin and ceftriaxone. Slight increase in creatinine. If no improvement consider alternatives. Patient has no fevers. Leukocytosis has resolved. There has been no improvement to her arm. Skin is tight, shiny. Open area persists with drainage. Will repeat wound culture. Original culture shows rare epithelial cells but no organisms. Blood cultures show NGTD. Hand remains edematous. She continues to have 8-9 out of 10 pain. Consider vascular causes. We will obtainDoppler of left upper extremity. Obtain MRI of forearm and wrist with and without contrast. Of notepatient received Prolia last month. DVT prophylaxis: SCDs Labs, diagnostics, and progress notes reviewed as noted in HPI Code Status: Full code Plan of care discussed with patient. All questions answered. Patient verbalizes understanding is agreeable to plan of care. This dictation was performed using voice recognition software and may include grammatical and/or spelling errors. Digitally Signed by BRANDI MOSELEY on 05/01/2022 01:00 PM Digitally Signed by BRANDI MOSELEY on 05/01/2022 01:01 PM [facility]03-17-2023 Note Date of Service 05/01/2022 Chief Complaint LUE pain Subjective 51-year-old female with past medical history significant for scleroderma, DJD, hyperlipidemia. Patient presented to [facility] emergency department on 04/29/2022 with left upper extremity cellulitis that failed outpatient treatment. She was started on Keflex but had increasing pain and erythema. In the emergency department white blood cell count was 15,000. 5% bands. CMP mostly unremarkable. Patient was given a dose of vancomycin and Zosyn in the emergency department and subsequently admitted for further evaluation. Antibiotics were changed to ceftriaxone 2 g as well as vancomycin. Overnight patient remained afebrile and hemodynamically stable with adequate oxygen saturations on room air. This morning white blood cell count has improved to 8,000. No bandemia. BMP unremarkable. On exam today, pt denies any fever or chills. No headache or dizziness. Denies chest pain, palpitations. No cough, dyspnea, sputum production. Denies N/V/D/C. No melena/hematochezia. No dysuria or hematuria. No new paresthesias. Still has left arm pain from tightness and edema. No improvement. Objective Vitals and Measurements T: 36.7 C (Oral) TMIN: 36.5 C (Oral) TMAX: 36.9 C (Oral) HR: 84(Monitored) RR: 20 BP: 144/72 SpO2: 96% WT: 46.7 kg Intake and Output 7AM Yesterday to 7AM Today Intake and Output (Last 24 hours) Intake Output Urine Count 2.00 Total Summary Total Intake 0.00 Total Output 0.00 Fluid Balance 0.00 Physical Exam GEN: Appears chronically ill CHEST: Normal S1 and S2. Rhythm is regular. Clear to auscultation, without rales, rhonchi, wheezing. ABD: Positive bowel sounds x 4 quads. Soft, nondistended, nontender. EXT: Left upper extremity and left lower extremity underdeveloped due to scleroderma. Edema left hand. NEURO: Sensation grossly intact SKIN: Left arm erythematous, warm, edematous. left Hand remains edematous and tight. Unable to fully flex her fingers. PSYCH: The mental examination revealed the patient was alert and oriented x 4 Weight Current Weight Dosing Weight: 46.6 kg (04/30/22) Current Weight: 46.7 kg (05/01/22) Dosing Weight: 44.5 kg (04/29/22) Medications Medications (20) Active Scheduled: (11) amitriptyline 25 mg tablet 50 mg 2 tab(s), Oral, qHS atorvastatin 10 mg tablet 20 mg 2 tab(s), Oral, qDay cefTRIAXone 2 gram(s), IV Piggyback, qDay loratadine 10 mg Tablet 10 mg 1 tab(s), Oral, qDay mupirocin 2% Ointment 22 Gram(s) tube 1 arash, Topical, TID Nicoderm patch REMOVAL 1 EA, Miscellaneous, Daily nicotine 21 mg/24 hr ER patch 21 mg 1 patch(es), Transdermal, q24h pantoprazole 20 mg EC tablet 40 mg 2 tab(s), Oral, qDayAC tiZANidine 4 mg tablet 4 mg 1 tab(s), Oral, BID vancomycin 750 mg 15 mL, IV Piggyback, q24h zolpidem 5 mg tablet 10 mg 2 tab(s), Oral, qHS Continuous: (0) PRN: (9) acetaminophen 325 mg Tablet 650 mg 2 tab(s), Oral, q4h acetaminophen 325 mg Tablet 650 mg 2 tab(s), Oral, q4h acetaminophen-OXYcodone 325 mg-5 mg Tablet 1.5 tab(s), Oral, q6h benzonatate 100 mg Capsule 100 mg 1 cap(s), Oral, TID calcium carbonate 500 mg Chewable 500 mg 1 tab(s), Chewed, TID guaifenesin 100 mg/5 mL 120 mL liquid 200 mg 10 mL, Oral, q4h melatonin 3 mg tablet 6 mg 2 tab(s), Oral, qHS morphine 2 mg/mL 1 mL syringe 2 mg 1 mL, IV Push, q3h ondansetron 2 mg/ 1 mL 2 mL INJ 4 mg 2 mL, IV Push, q4h Lab Results 05/01 05:11 WBC: 8.4 Hgb: 10.2 L Hct: 30.0 L Platelet: 288 Neutrophil %: 77.8 Glucose Level: 97 Sodium Level: 144 Potassium Level: 3.8 BUN: 12 Creatinine Lvl (s): 1.12 H 04/30 05:06 WBC: 13.1 H Hgb: 10.4 L Hct: 30.7 L Platelet: 292 Neutrophil %: 83.8 H Glucose Level: 104 Sodium Level: 137 Potassium Level: 3.8 BUN: 15 Creatinine Lvl (s): 0.89 Assessment/Plan 1. Cellulitis of left arm Ordered: 2. GERD (gastroesophageal reflux disease) 3. High cholesterol 4. Scleroderma 5. Tobacco use Left arm cellulitis continue vancomycin and ceftriaxone. Slight increase in creatinine. If no improvement consider alternatives. Patient has no fevers. Leukocytosis has resolved. There has been no improvement to her arm. Skin is tight, shiny. Open area persists with drainage. Will repeat wound culture. Original culture shows rare epithelial cells but no organisms. Blood cultures show NGTD. Hand remains edematous. She continues to have 8-9 out of 10 pain. Consider vascular causes. We will obtainDoppler of left upper extremity. Obtain MRI of forearm and wrist with and without contrast. Of notepatient received Prolia last month. DVT prophylaxis: SCDs Labs, diagnostics, and progress notes reviewed as noted in HPI Code Status: Full code Plan of care discussed with patient. All questions answered. Patient verbalizes understanding is agreeable to plan of care. This dictation was performed using voice recognition software and may include grammatical and/or spelling errors. Digitally Signed by BRANDI MOSELEY on 05/01/2022 01:00 PM Digitally Signed by BRANDI MOSELEY on 05/01/2022 01:01 PM [facility]03-17-2023 Note ORIGINAL EXAMINATION: MRI OF THE LEFT FOREARM WITHOUT AND WITH CONTRAST05/01/2022 12:33 pm TECHNIQUE: Multiplanar multisequence MRI of the left forearm was performed without and with the administration of intravenous contrast. COMPARISON: None HISTORY: ORDERING SYSTEM PROVIDED HISTORY: Reason for Exam: Cellulitis, Tight skin FINDINGS: OSSEOUS STRUCTURES: No fracture or dislocation is evident.Bone marrow signal intensity is within normal limits. No periosteal edema. No visible marrow replacing osseous lesion. MUSCLES, TENDONS, AND LIGAMENTS: The visualized muscles and tendons are intact. However, there is intermuscular edema of the flexor compartment of the forearm with mild corresponding enhancement. Scattered mild intrinsic muscle edema is noted without corresponding enhancement, nonspecific. Ligaments are not well assessed on this examination. JOINTS: Suboptimal evaluation for internal derangement of the wrist and elbow secondary to field of view and patient positioning. There is significant inhomogeneous fat suppression on the pre and post T1 fat suppressed sequences of the hand. SOFT TISSUES: There is diffuse circumferential confluent subcutaneous edema of the forearm as well as the included hand, most pronounced dorsally. This exhibits diffuse corresponding enhancement, suggesting cellulitis. No rim enhancing fluid collection is noted to suggest abscess. Skin irregularity at the dorsum of the distal forearm may reflect skin blistering or a soft tissue ulcer. Involving the volar aspect of the mid to proximal forearm, there is prominent subcutaneous fat signal intensity tissue with scattered foci of low signal, likely corresponding to sheet like calcification/ossification on comparison radiographs given patient's history of scleroderma. IMPRESSION: 1. Diffuse cellulitis of the forearm and hand without rim enhancing fluid collection to suggest abscess. 2. Mildly enhancing deep intramuscular fluid of the flexor compartment of the forearm. Correlation for signs of deep fascial infectious process versus compartment syndrome are recommended. 3. No evidence of osteomyelitis. Interpreted by: Jose Medina DO Preliminary Report By: Jose Medina DO Electronically signed By Jose Medina DO Dictated Date: 05/01/2022 3:58:11 PM Prelim Date: 05/01/2022 4:04:23 PM Sign Date: 05/01/2022 4:04:23 PM Ordering Provider: BRANDI MOSELEY [facility]03-17-2023 Note Date of Service 05/01/2022 Chief Complaint LUE pain Subjective 51-year-old female with past medical history significant for scleroderma, DJD, hyperlipidemia. Patient presented to [facility] emergency department on 04/29/2022 with left upper extremity cellulitis that failed outpatient treatment. She was started on Keflex but had increasing pain and erythema. In the emergency department white blood cell count was 15,000. 5% bands. CMP mostly unremarkable. Patient was given a dose of vancomycin and Zosyn in the emergency department and subsequently admitted for further evaluation. Antibiotics were changed to ceftriaxone 2 g as well as vancomycin. Overnight patient remained afebrile and hemodynamically stable with adequate oxygen saturations on room air. This morning white blood cell count has improved to 8,000. No bandemia. BMP unremarkable. On exam today, pt denies any fever or chills. No headache or dizziness. Denies chest pain, palpitations. No cough, dyspnea, sputum production. Denies N/V/D/C. No melena/hematochezia. No dysuria or hematuria. No new paresthesias. Still has left arm pain from tightness and edema. No improvement. Objective Vitals and Measurements T: 36.7 C (Oral) TMIN: 36.5 C (Oral) TMAX: 36.9 C (Oral) HR: 84(Monitored) RR: 20 BP: 144/72 SpO2: 96% WT: 46.7 kg Intake and Output 7AM Yesterday to 7AM Today Intake and Output (Last 24 hours) Intake Output Urine Count 2.00 Total Summary Total Intake 0.00 Total Output 0.00 Fluid Balance 0.00 Physical Exam GEN: Appears chronically ill CHEST: Normal S1 and S2. Rhythm is regular. Clear to auscultation, without rales, rhonchi, wheezing. ABD: Positive bowel sounds x 4 quads. Soft, nondistended, nontender. EXT: Left upper extremity and left lower extremity underdeveloped due to scleroderma. Edema left hand. NEURO: Sensation grossly intact SKIN: Left arm erythematous, warm, edematous. left Hand remains edematous and tight. Unable to fully flex her fingers. PSYCH: The mental examination revealed the patient was alert and oriented x 4 Weight Current Weight Dosing Weight: 46.6 kg (04/30/22) Current Weight: 46.7 kg (05/01/22) Dosing Weight: 44.5 kg (04/29/22) Medications Medications (20) Active Scheduled: (11) amitriptyline 25 mg tablet 50 mg 2 tab(s), Oral, qHS atorvastatin 10 mg tablet 20 mg 2 tab(s), Oral, qDay cefTRIAXone 2 gram(s), IV Piggyback, qDay loratadine 10 mg Tablet 10 mg 1 tab(s), Oral, qDay mupirocin 2% Ointment 22 Gram(s) tube 1 arash, Topical, TID Nicoderm patch REMOVAL 1 EA, Miscellaneous, Daily nicotine 21 mg/24 hr ER patch 21 mg 1 patch(es), Transdermal, q24h pantoprazole 20 mg EC tablet 40 mg 2 tab(s), Oral, qDayAC tiZANidine 4 mg tablet 4 mg 1 tab(s), Oral, BID vancomycin 750 mg 15 mL, IV Piggyback, q24h zolpidem 5 mg tablet 10 mg 2 tab(s), Oral, qHS Continuous: (0) PRN: (9) acetaminophen 325 mg Tablet 650 mg 2 tab(s), Oral, q4h acetaminophen 325 mg Tablet 650 mg 2 tab(s), Oral, q4h acetaminophen-OXYcodone 325 mg-5 mg Tablet 1.5 tab(s), Oral, q6h benzonatate 100 mg Capsule 100 mg 1 cap(s), Oral, TID calcium carbonate 500 mg Chewable 500 mg 1 tab(s), Chewed, TID guaifenesin 100 mg/5 mL 120 mL liquid 200 mg 10 mL, Oral, q4h melatonin 3 mg tablet 6 mg 2 tab(s), Oral, qHS morphine 2 mg/mL 1 mL syringe 2 mg 1 mL, IV Push, q3h ondansetron 2 mg/ 1 mL 2 mL INJ 4 mg 2 mL, IV Push, q4h Lab Results 05/01 05:11 WBC: 8.4 Hgb: 10.2 L Hct: 30.0 L Platelet: 288 Neutrophil %: 77.8 Glucose Level: 97 Sodium Level: 144 Potassium Level: 3.8 BUN: 12 Creatinine Lvl (s): 1.12 H 04/30 05:06 WBC: 13.1 H Hgb: 10.4 L Hct: 30.7 L Platelet: 292 Neutrophil %: 83.8 H Glucose Level: 104 Sodium Level: 137 Potassium Level: 3.8 BUN: 15 Creatinine Lvl (s): 0.89 Assessment/Plan 1. Cellulitis of left arm Ordered: 2. GERD (gastroesophageal reflux disease) 3. High cholesterol 4. Scleroderma 5. Tobacco use Left arm cellulitis continue vancomycin and ceftriaxone. Slight increase in creatinine. If no improvement consider alternatives. Patient has no fevers. Leukocytosis has resolved. There has been no improvement to her arm. Skin is tight, shiny. Open area persists with drainage. Will repeat wound culture. Original culture shows rare epithelial cells but no organisms. Blood cultures show NGTD. Hand remains edematous. She continues to have 8-9 out of 10 pain. Consider vascular causes. We will obtainDoppler of left upper extremity. Obtain MRI of forearm and wrist with and without contrast. Of notepatient received Prolia last month. DVT prophylaxis: SCDs Labs, diagnostics, and progress notes reviewed as noted in HPI Code Status: Full code Plan of care discussed with patient. All questions answered. Patient verbalizes understanding is agreeable to plan of care. This dictation was performed using voice recognition software and may include grammatical and/or spelling errors. Digitally Signed by BRANDI MOSELEY on 05/01/2022 01:00 PM Digitally Signed by BRANDI MOSELEY on 05/01/2022 01:01 PM [facility]03-17-2023 Note ORIGINAL EXAMINATION: MRI OF THE LEFT FOREARM WITHOUT AND WITH CONTRAST05/01/2022 12:33 pm TECHNIQUE: Multiplanar multisequence MRI of the left forearm was performed without and with the administration of intravenous contrast. COMPARISON: None HISTORY: ORDERING SYSTEM PROVIDED HISTORY: Reason for Exam: Cellulitis, Tight skin FINDINGS: OSSEOUS STRUCTURES: No fracture or dislocation is evident.Bone marrow signal intensity is within normal limits. No periosteal edema. No visible marrow replacing osseous lesion. MUSCLES, TENDONS, AND LIGAMENTS: The visualized muscles and tendons are intact. However, there is intermuscular edema of the flexor compartment of the forearm with mild corresponding enhancement. Scattered mild intrinsic muscle edema is noted without corresponding enhancement, nonspecific. Ligaments are not well assessed on this examination. JOINTS: Suboptimal evaluation for internal derangement of the wrist and elbow secondary to field of view and patient positioning. There is significant inhomogeneous fat suppression on the pre and post T1 fat suppressed sequences of the hand. SOFT TISSUES: There is diffuse circumferential confluent subcutaneous edema of the forearm as well as the included hand, most pronounced dorsally. This exhibits diffuse corresponding enhancement, suggesting cellulitis. No rim enhancing fluid collection is noted to suggest abscess. Skin irregularity at the dorsum of the distal forearm may reflect skin blistering or a soft tissue ulcer. Involving the volar aspect of the mid to proximal forearm, there is prominent subcutaneous fat signal intensity tissue with scattered foci of low signal, likely corresponding to sheet like calcification/ossification on comparison radiographs given patient's history of scleroderma. IMPRESSION: 1. Diffuse cellulitis of the forearm and hand without rim enhancing fluid collection to suggest abscess. 2. Mildly enhancing deep intramuscular fluid of the flexor compartment of the forearm. Correlation for signs of deep fascial infectious process versus compartment syndrome are recommended. 3. No evidence of osteomyelitis. Interpreted by: Jose Medina DO Preliminary Report By: Jose Medina DO Electronically signed By Jose Medina DO Dictated Date: 05/01/2022 3:58:11 PM Prelim Date: 05/01/2022 4:04:23 PM Sign Date: 05/01/2022 4:04:23 PM Ordering Provider: [facility]03-17-2023 Note Date of Service 05/01/22 Chief Complaint pain and swelling left forearm Subjective Pt. started with open sore left mid forearm on Wednesday. She was instructed to use topical antibioticcream. On Wednesday, arm worsened with redness, swelling encompassing left hand and entire arm is shiny with swelling. Comparison is difficult because patient has under-developed left side due to scleroderma since age [age]. She was started on Keflex but no improvement. She was admitted to the hospital and placed on Zosyn and Vancomycin IV. Her left arm remains swollen. Pain is 7/10 in left forearm and hand. Antibiotic switched to Ceftriaxone IV, Vancomycin IV, and topical mupirocin. Pt. is frustrated with lack of sleep due to formulary interchange with her home Lunesta. She also takes tizanidine 8mg at bedtime, amitriptyline for chronic pain. GEN: denies weight loss or gain, some chills in the evening HEENT: commonly has headache, denies headache today, blind in left eye CV: denies chest pain, no palpitations, edema left arm- most notable in hand PULM: denies shortness of breath, cough, or wheeze GI: denies nausea, vomiting, diarrhea or constipation : denies hematuria or dysuria MUSCULO: left arm and leg under-developed, low back pain and right hip pain- follows with pain provider out-patient INTEG: rash right flank- area size of saucer- not raised, red- splotchy appearance that appeared over night Objective Vitals and Measurements T: 36.8 C (Oral) TMIN: 36.5 C (Oral) TMAX: 36.9 C (Oral) HR: 83(Monitored) RR: 20 BP: 135/73 SpO2: 96% WT: 46.7 kg Intake and Output 7AM Yesterday to 7AM Today Intake and Output (Last 24 hours) Intake Output Urine Count 2.00 Total Summary Total Intake 0.00 Total Output 0.00 Fluid Balance 0.00 Physical Exam GEN: 51 yr old female who presents with left arm cellulitis- open weepy sore on dorsal aspect of left forearm HEENT: atraumatic, left eye blind- enucleated, no carotid bruit CV: S1S2, diminished at apex, left radial pulse audible with Doppler, entire left arm shiny with edema PULM: CTA, chest rise and fall noted- left side of chest wall also under- developed, excursion at baseline is abnormal ABD: soft, non-tender, hypoactive ALEXUS but present MUSCULO: baseline under-development of left side, left arm shiny with edema that differs from the left leg that is simply under- developed INTEG: left dorsal forearm with open area 2cm in length, macerated- cultured with only epithelial cells noted, left hand red, warm, worst site of edema Weight Current Weight Dosing Weight: 46.6 kg (04/30/22) Current Weight: 46.7 kg (05/01/22) Dosing Weight: 44.5 kg (04/29/22) Medications Medications (20) Active Scheduled: (11) amitriptyline 25 mg tablet 50 mg 2 tab(s), Oral, qHS atorvastatin 10 mg tablet 20 mg 2 tab(s), Oral, qDay cefTRIAXone 2 gram(s), IV Piggyback, qDay loratadine 10 mg Tablet 10 mg 1 tab(s), Oral, qDay mupirocin 2% Ointment 22 Gram(s) tube 1 arash, Topical, TID Nicoderm patch REMOVAL 1 EA, Miscellaneous, Daily nicotine 21 mg/24 hr ER patch 21 mg 1 patch(es), Transdermal, q24h pantoprazole 20 mg EC tablet 40 mg 2 tab(s), Oral, qDayAC tiZANidine 4 mg tablet 4 mg 1 tab(s), Oral, BID vancomycin 750 mg 15 mL, IV Piggyback, q24h zolpidem 5 mg tablet 10 mg 2 tab(s), Oral, qHS Continuous: (0) PRN: (9) acetaminophen 325 mg Tablet 650 mg 2 tab(s), Oral, q4h acetaminophen 325 mg Tablet 650 mg 2 tab(s), Oral, q4h acetaminophen-OXYcodone 325 mg-5 mg Tablet 1.5 tab(s), Oral, q6h benzonatate 100 mg Capsule 100 mg 1 cap(s), Oral, TID calcium carbonate 500 mg Chewable 500 mg 1 tab(s), Chewed, TID guaifenesin 100 mg/5 mL 120 mL liquid 200 mg 10 mL, Oral, q4h melatonin 3 mg tablet 6 mg 2 tab(s), Oral, qHS morphine 2 mg/mL 1 mL syringe 2 mg 1 mL, IV Push, q3h ondansetron 2 mg/ 1 mL 2 mL INJ 4 mg 2 mL, IV Push, q4h Lab Results 05/01 05:11 WBC: 8.4 Hgb: 10.2 L Hct: 30.0 L Platelet: 288 Neutrophil %: 77.8 Glucose Level: 97 Sodium Level: 144 Potassium Level: 3.8 BUN: 12 Creatinine Lvl (s): 1.12 H 04/30 05:06 WBC: 13.1 H Hgb: 10.4 L Hct: 30.7 L Platelet: 292 Neutrophil %: 83.8 H Glucose Level: 104 Sodium Level: 137 Potassium Level: 3.8 BUN: 15 Creatinine Lvl (s): 0.89 Imaging Results and Diagnostics XR Hand Minimum 3 Views Left Result Date: May 01, 2022 Verified By: GENNARO TAMAYO MD CLINICAL STATEMENT: IMPRESSION: No acute osseous abnormality. 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 XR Forearm 2 Views Left Result Date: May 01, 2022 Verified By: GENNARO TAMAYO MD CLINICAL STATEMENT: IMPRESSION: No acute osseous abnormality. Ankylosis of the elbow joint. Extensive soft tissue calcifications. Assessment/Plan 1. Cellulitis of left arm Left arm shiny with edema, worst in hand with pain at 7/10 today- some improvement in pain only perpt. Edema and open lesion without improvement. Antibiotic switched from Zosyn and Vancomycin to Ceftriaxone IV and continue Vancomycin.. MRI ordered to further assess soft tissue ordered. Topical mupi rocin to open area with DSD. Recultured wound before mupirocin. Consideration of Prolia as factor. 2. GERD (gastroesophageal reflux disease) Continue pantoprazole. 3. High cholesterol Continue atorvastatin. 4. Scleroderma Ongoing from age [age]. 5. Tobacco use On nicotine replacement. Time Spent Patient remains a full code DVT prophylaxis- SCDs ordered, mobile to restroom Stress ulcer prevention-remains on pantoprazole Digitally Signed by Gwen Law Student on 05/01/2022 11:55 AM [facility]03-17-2023 Note ORIGINAL EXAMINATION: THREE XRAY VIEWS OF THE LEFT HAND 05/01/2022 9:52 am COMPARISON: None. HISTORY: ORDERING SYSTEM PROVIDED HISTORY: Reason for Exam: Cellulitis FINDINGS: There are no osseous erosions or periosteal reaction to suggest osteomyelitis. There is soft tissue swelling over the wrist and dorsum of the hand. No soft tissue gas is seen. There is no acute fracture. There is no dislocation. There is ankylosis of the intercarpal joints throughout the wrist. Calcifications are seen in the distal forearm. There is no radiopaque foreign body. IMPRESSION: No acute osseous abnormality. 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 Interpreted by: Gennaro Tamayo MD Preliminary Report By: Gennaro Tamayo MD Electronically signed By Gennaro Tamayo MD Dictated Date: 05/01/2022 10:12:55 AM Prelim Date: 05/01/2022 10:15:21 AM Sign Date: 05/01/2022 10:15:21 AM Ordering Provider: [address]17-2023 Note ORIGINAL EXAMINATION: TWO XRAY VIEWS OF THE LEFT FOREARM 05/01/2022 9:53 am COMPARISON: None. HISTORY: ORDERING SYSTEM PROVIDED HISTORY: Reason for Exam: Cellulitis FINDINGS: There are extensive soft tissue calcifications throughout the arm. There is ankylosis of the elbow. There is no acute fracture. There is no dislocation. There are no osseous erosions to suggest osteomyelitis. Soft tissue swelling is seen in the distal forearm. There is no subcutaneous gas. There is no radiopaque foreign body. IMPRESSION: No acute osseous abnormality. Ankylosis of the elbow joint. Extensive soft tissue calcifications. Interpreted by: Gennaro Tamayo MD Preliminary Report By: Gennaro Tamayo MD Electronically signed By Gennaro Tamayo MD Dictated Date: 05/01/2022 10:08:28 AM Prelim Date: 05/01/2022 10:12:41 AM Sign Date: 05/01/2022 10:12:41 AM Ordering Provider: [address]17-2023 Note ORIGINAL EXAMINATION: TWO XRAY VIEWS OF THE LEFT FOREARM 05/01/2022 9:53 am COMPARISON: None. HISTORY: ORDERING SYSTEM PROVIDED HISTORY: Reason for Exam: Cellulitis FINDINGS: There are extensive soft tissue calcifications throughout the arm. There is ankylosis of the elbow. There is no acute fracture. There is no dislocation. There are no osseous erosions to suggest osteomyelitis. Soft tissue swelling is seen in the distal forearm. There is no subcutaneous gas. There is no radiopaque foreign body. IMPRESSION: No acute osseous abnormality. Ankylosis of the elbow joint. Extensive soft tissue calcifications. Interpreted by: Gennaro Tamayo MD Preliminary Report By: Gennaro Tamayo MD Electronically signed By Gennaro Tamayo MD Dictated Date: 05/01/2022 10:08:28 AM Prelim Date: 05/01/2022 10:12:41 AM Sign Date: 05/01/2022 10:12:41 AM Ordering Provider: [address]17-2023 Note ORIGINAL EXAMINATION: THREE XRAY VIEWS OF THE LEFT HAND 05/01/2022 9:52 am COMPARISON: None. HISTORY: ORDERING SYSTEM PROVIDED HISTORY: Reason for Exam: Cellulitis FINDINGS: There are no osseous erosions or periosteal reaction to suggest osteomyelitis. There is soft tissue swelling over the wrist and dorsum of the hand. No soft tissue gas is seen. There is no acute fracture. There is no dislocation. There is ankylosis of the intercarpal joints throughout the wrist. Calcifications are seen in the distal forearm. There is no radiopaque foreign body. IMPRESSION: No acute osseous abnormality. 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 Interpreted by: Gennaro Tamayo MD Preliminary Report By: Gennaro Tamayo MD Electronically signed By Gennaro Tamayo MD Dictated Date: 05/01/2022 10:12:55 AM Prelim Date: 05/01/2022 10:15:21 AM Sign Date: 05/01/2022 10:15:21 AM Ordering Provider: [facility]03-16-2023 Note Date of Service 04/30/2022 Subjective 51-year-old female with past medical history significant for scleroderma, DJD, hyperlipidemia. Patient presented to [facility] emergency department on 04/29/2022 with left upper extremity cellulitis that failed outpatient treatment. She was started on Keflex but had increasing pain and erythema. In the emergency department white blood cell count was 15,000. 5% bands. CMP mostly unremarkable. Patient was given a dose of vancomycin and Zosyn in the emergency department and subsequently admitted for further evaluation. Antibiotics were changed to ceftriaxone 2 g as well as vancomycin. Overnight patient remained afebrile and hemodynamically stable with adequate oxygen saturations on room air. This morning white blood cell count has improved to 13,000. No bandemia. BMP unremarkable. On exam today, pt denies any fever or chills. No headache or dizziness. Denies chest pain, palpitations. No cough, dyspnea, sputum production. Denies N/V/D/C. No melena/hematochezia. No dysuria or hematuria. No new paresthesias. Patient complains of left arm swelling. Left hand is swollen as well. She does have difficulty with grasping due to the swelling. Objective Vitals and Measurements T: 36.8 C (Oral) TMIN: 36.6 C (Oral) TMAX: 37.4 C (Oral) HR: 80(Monitored) RR: 18 BP: 126/82 SpO2: 95% HT: 137.2 cm WT: 46.6 kg BMI: 23.64 Intake and Output 7AM Yesterday to 7AM Today Intake and Output (Last 24 hours) Intake Output Total Summary Total Intake 0.00 Total Output 0.00 Fluid Balance 0.00 Physical Exam GEN: Appears chronically ill CHEST: Normal S1 and S2. Rhythm is regular. Clear to auscultation, without rales, rhonchi, wheezing. ABD: Positive bowel sounds x 4 quads. Soft, nondistended, nontender. EXT: Left upper extremity and left lower extremity underdeveloped due to scleroderma. Edema left hand. NEURO: Sensation grossly intact SKIN: Left arm erythematous, warm, edematous PSYCH: The mental examination revealed the patient was alert and oriented x 4 Weight Dosing Weight: 46.6 kg (04/30/22) Dosing Weight: 44.5 kg (04/29/22) Medications Medications (23) Active Scheduled: (13) amitriptyline 25 mg tablet 50 mg 2 tab(s), Oral, qHS atorvastatin 10 mg tablet 20 mg 2 tab(s), Oral, qDay cefTRIAXone 2 gram(s), IV Piggyback, qDay fenofibrate 48 mg tablet 48 mg 1 tab(s), Oral, qDayM loratadine 10 mg Tablet 10 mg 1 tab(s), Oral, qDay mupirocin 2% Ointment 22 Gram(s) tube 1 arash, Topical, TID Nicoderm patch REMOVAL 1 EA, Miscellaneous, q24h nicotine 14 mg/24 hr ER patch 14 mg 1 patch(es), Transdermal, q24h pantoprazole 20 mg EC tablet 40 mg 2 tab(s), Oral, qDayAC tiZANidine 4 mg tablet 4 mg 1 tab(s), Oral, BID vancomycin 750 mg 15 mL, IV Piggyback, q12h vancomycin trough level 1 EA, Miscellaneous, q12hr zolpidem 5 mg tablet 10 mg 2 tab(s), Oral, qHS Continuous: (1) Lactated Ringers 1,000 mL 1,000 mL, Intravenous, 100 mL/hr PRN: (9) acetaminophen 325 mg Tablet 650 mg 2 tab(s), Oral, q4h acetaminophen 325 mg Tablet 650 mg 2 tab(s), Oral, q4h acetaminophen-OXYcodone 325 mg-5 mg Tablet 1.5 tab(s), Oral, q6h benzonatate 100 mg Capsule 100 mg 1 cap(s), Oral, TID calcium carbonate 500 mg Chewable 500 mg 1 tab(s), Chewed, TID guaifenesin 100 mg/5 mL 120 mL liquid 200 mg 10 mL, Oral, q4h melatonin 3 mg tablet 6 mg 2 tab(s), Oral, qHS morphine 2 mg/mL 1 mL syringe 2 mg 1 mL, IV Push, q3h ondansetron 2 mg/ 1 mL 2 mL INJ 4 mg 2 mL, IV Push, q4h Lab Results 04/30 05:06 WBC: 13.1 H Hgb: 10.4 L Hct: 30.7 L Platelet: 292 Neutrophil %: 83.8 H Glucose Level: 104 Sodium Level: 137 Potassium Level: 3.8 BUN: 15 Creatinine Lvl (s): 0.89 04/29 14:00 WBC: 15.7 H Hgb: 12.8 Hct: 37.7 Platelet: 344 Glucose Level: 117 H Sodium Level: 136 Potassium Level: 3.9 BUN: 12 Creatinine Lvl (s): 0.77 EKG No qualifying data available. Assessment/Plan 1. Cellulitis of left arm 2. GERD (gastroesophageal reflux disease) 3. High cholesterol 4. Scleroderma 5. Tobacco use Left arm cellulitis continue vancomycin and ceftriaxone.Improvement in leukocytosis with white blood cell count of 13,000 today. Patient has been afebrile and hemodynamically stable. Area remains edematous, erythematous, warm. Blood cultures show NGTD Td wound culture is not resulted at this time. DVT prophylaxis: SCDs Labs, diagnostics, and progress notes reviewed as noted in HPI Code Status: Full code Plan of care discussed with patient. All questions answered. Patient verbalizes understanding is agreeable to plan of care. This dictation was performed using voice recognition software and may include grammatical and/or spelling errors. Digitally Signed by BRANDI MOSELEY on 04/30/2022 02:51 PM [facility]03-15-2023 Note Date of Service 04/29/2022 Chief Complaint c/o left arm infection and increased pain. History of Present Illness Patient is a 51-year-old female, who follows with Solis Shell CNP with a past medical history significant for scleroderma, degenerative joint disease, and hyperlipidemia, presents to [facility] emergency department with the chief complaint of left upper extremity pain and concernfor infection. Patient states that she developed an ulcer to her left forearm a few days ago. She does have an underdeveloped left arm due to scleroderma. She presented to her PCP yesterday for evaluation and was started on Keflex. She states she only took a few pills but had increased pain and redness. She came in to the ED for evaluation. Patient denies any fever, chills, cough, shortness of breath, chest pain, abdominal pain, nausea or dysuria. In the emergency department, white blood cell count was 15.7. BMP remarkable for glucose 117. Lactic acid 1.3. Blood cultures x 2 obtained and pending. Patient was administered. Patient was administered 1 gram Vancomycin IV, 4.5 grams Zosyn, 4 mg morphine IV x 2 doses and 4 mg Zofran IV in the ED. She was transferred to medical surgical unit for further evaluation and treatment. We will continue Vancomycin IV - pharmacy to dose. We will start Ceftriaxone 1 gram IV daily. We will continue PO andIV pain medication and antiemetics. We will culture wound if possible to better direct antibiotic selection. Repeat CBC and BMP in the am. Review of Systems Review of Systems: Reviewed in detail, including general health, HEENT, cardiovascular, respiratory, gastrointestinal, genitourinary, endocrine, musculoskeletal, neurologic, vascular, skin, and psychiatric. All are negative except for those listed in the History of Present Illness. Physical Exam Vitals and Measurements T: 37.4 C (Oral) TMIN: 37.4 C (Oral) TMAX: 37.7 C (Oral) HR: 96 RR: 18 BP: 106/70 SpO2: 97% HT: 137.2 cm WT: 44.5 kg BMI: 23.64 Weight Dosing Weight: 44.5 kg (04/29/22) Dosing Weight: 44 kg (04/29/22) General: No acute distress. Patient is alert and appropriate. Skin: No rash. Skin is warm, dry and intact. HEENT: Head is normocephalic, atraumatic. Pupils are equal, round and reactive. Patient unable to open left eye easily. Neck: Supple. No lymphadenopathy, thyromegaly. Lungs: Bilaterally clear but diminished without crepitation or wheeze. Unlabored. Heart: Heart is regular rhythm, S1, S2. No murmurs, gallops or rubs. Abdomen: Abdomen is soft, nontender. Bowels sounds present in all quadrants. Extremities: No clubbing, cyanosis, or edema. Peripheral pulses palpable. No calf tenderness. Left upper and lower extremities underdeveloped due to scleroderma. Neurological: Patient is awake and alert to person, place and time. Following simple commands, moving all extremities. Lab Results 04/29 14:00 WBC: 15.7 H Hgb: 12.8 Hct: 37.7 Platelet: 344 Glucose Level: 117 H Sodium Level: 136 Potassium Level: 3.9 BUN: 12 Creatinine Lvl (s): 0.77 Assessment/Plan 1. Cellulitis of left arm Acute, new onset *Administered Vancomycin IV and Zosyn 4.5 grams IV in the ED. *Patient failed outpatient treatment with Keflex prescribed by PCP. *Continue Vancomycin IV - pharmacy to dose. *Start Ceftriaxone 1 gram IV daily. *Attempt to culture left forearm wound. *Continue IV and PO pain medication. *Check CBC and BMP in the am. 2. GERD (gastroesophageal reflux disease) Chronic *Continue current home medication. 3. High cholesterol Chronic *Continue statin at current dose. 4. Scleroderma Chronic *Continue current home medication. *Continue PRN pain medication. 5. Tobacco use Chronic *Encourage cessation. *May have nicotine patch daily. DVT prophylaxis SCDs. Code status: Full Code. Labs, diagnostic test and progress notes reviewed as noted in HPI. Plan of care discussed with patient. All questions answered. Patient verbalizes understanding and is agreeable with plan of care. This case was discussed with collaborating physician, Dr. Tutu Ma. Problem List/Past Medical History Ongoing B12 deficiency Blindness of left eye BMI 23.0-23.9, adult Breast cancer screening Carpal tunnel syndrome, right Chronic pain Constipation Degenerative joint disease (DJD) of lumbar spine Depression with anxiety Encounter for immunization Encounter for osteoporosis screening in asymptomatic postmenopausal patient GERD (gastroesophageal reflux disease) Golfers elbow of right upper extremity Hemorrhoids High cholesterol Insomnia Insomnia Left lumbosacral radiculopathy Lesion of right thigh bone Muscle spasms of both lower extremities Neck pain Need for vaccination Osteoarthritis of right hip Osteoporosis Postmenopausal Right hip pain Sheltered homelessness Soft tissue mass Vitamin B12 deficiency Vitamin D deficiency Historical No qualifying data Procedure/Surgical History Injection of steroid into hip joint- right: 04/20/22 Injection into shoulder joint- right: 11/12/21 Ablation: 06/2020 Golfer's elbow: 2016 Carpal tunnel: 2016 Blind left eye: 2013 Skin graft: 1988 Miscellaneous Medications Home Medications (14) Active acetaminophen-oxycodone 325 mg-7.5 mg oral tablet 1 tab(s), PRN, Oral, q6h amitriptyline 50 mg oral tablet 50 mg = 1 tab(s), Oral, qHS atorvastatin 20 mg oral tablet 20 mg = 1 tab(s), Oral, qDay cephalexin 500 mg oral capsule 500 mg = 1 cap(s), Oral, QID cholecalciferol 1250 mcg (50,000 intl units) oral capsule 1,250 mcg = 1 cap(s), Oral, qWeek dexlansoprazole 60 mg oral delayed release capsule 60 mg = 1 cap(s), Oral, qDay DME MISCellaneous See Instructions eszopiclone 3 mg oral tablet 3 mg = 1 tab(s), Oral, qHS eszopiclone 3 mg oral tablet 3 mg = 1 tab(s), Oral, qHS fenofibric acid 45 mg oral delayed release capsule mupirocin 2% topical ointment 1 arash, Topical, TID Prolia 60 mg/mL subcutaneous solution 60 mg = 1 mL, Subcutaneous, q6mo tiZANidine 4 mg oral tablet 4 mg = 1 tab(s), Oral, BID Zyrtec 10 mg oral tablet 10 mg = 1 tab(s), Oral, qDay Allergies Cymbalta traMADol traZODone Social History Alcohol Use: Current. Type: Wine. Frequency: 1-2 times per year., 11/24/2021 Employment/School Status: Unemployed., 01/21/2022 Home/Environment Domestic Concerns: None. Living situation: Home/Independent. Primary Motion Picture Commentator: Selfcare. Lives In: Single level home. Current Home Treatments Blood Pressure monitoring. Professional Skilled Services or Special Community Resources None. Financial concerns: No., 04/29/2022 Nutrition/Health Caffeine intake amount: coffee/pop/ tea 2-3 servings daily., 11/24/2021 Substance Abuse Use: Past., 11/24/2021 Tobacco Nicotine Use: 10 or more cigarettes (1/2 pack or more)/day in last 30 days., 11/24/2021 Family History Alcohol abuse: Father. Asthma: Brother. Diabetes: Mother. Hypercholesterolemia: Mother. Hypertension: Mother. Kidney disease: Mother. Immunizations No qualifying data available. Code Status Code Status - Ordered -- 04/29/22 15:07:00 EDT, Full Code, Constant Order Digitally Signed by YOHANNES BOWIE on 04/29/2022 09:53 PM [facility]03-15-2023 Hospital Discharge instructions Follow Up Care 04/29/2022 12:52:43 With:SOLIS SHELL Address: [address] [place] [address] [place] [address]- [phone] When:05/05/2022 14:00:00 Comments:This is your post-hospital follow-up appointment. It is in the [facility] office. [facility] 03-15-2023 Evaluation + Plan noteExtracted from: Title:History and Physical Author:YOHANNES BOWIE Date:04/29/22 1. Cellulitis of left arm Acute, new onset *Administered Vancomycin IV and Zosyn 4.5 grams IV in the ED. *Patient failed outpatient treatment with Keflex prescribed by PCP. *Continue Vancomycin IV - pharmacy to dose. *Start Ceftriaxone 1 gram IV daily. *Attempt to culture left forearm wound. *Continue IV and PO pain medication. *Check CBC and BMP in the am. 2. GERD (gastroesophageal reflux disease) Chronic *Continue current home medication. 3. High cholesterol Chronic *Continue statin at current dose. 4. Scleroderma Chronic *Continue current home medication. *Continue PRN pain medication. 5. Tobacco use Chronic *Encourage cessation. *May have nicotine patch daily. DVT prophylaxis SCDs. Code status: Full Code. Labs, diagnostic test and progress notes reviewed as noted in HPI. Plan of care discussed with patient. All questions answered. Patient verbalizes understanding and is agreeable with plan of care. This case was discussed with collaborating physician, Dr. Tutu Ma. Future Appointments Appointment Date:05/05/2022 02:00:00 PM Scheduled Provider:SOLIS SHELL Location:[facility] Appointment Type:PC OV Hospital Follow-Up Appointment Date:05/25/2022 10:45:00 AM Scheduled Provider:SHRAVAN LUCAS MD Location:[facility] PM Appointment Type:PM OV Appointment Date:06/12/2022 02:00:00 PM Scheduled Provider:SOLIS SHELL Location:[facility] Appointment Type: OV Controlled Medication Future Scheduled Tests Laboratory* Hepatic Function Panel 02/02/22 * Thyroid Stimulating Hormone 02/02/22 * PTH, Intact 02/02/22 * Vitamin D Level 02/02/22 [facility] 12-19-2022 Evaluation + Plan note Future Scheduled Tests Laboratory* Hepatic Function Panel 02/02/22 * Thyroid Stimulating Hormone 02/02/22 * Thyroid Stimulating Hormone 10/21/22 * Complete Blood Count 10/21/22 * Complete Blood Count 05/12/22 * Complete Blood Count 05/19/22 * Complete Blood Count 05/26/22 * Lipid Profile 10/21/22 * PTH, Intact 02/02/22 * Sedimentation Rate Automated 05/12/22 * Sedimentation Rate Automated 05/19/22 * Sedimentation Rate Automated 05/26/22 * Vitamin D Level 02/02/22 * Vitamin D Level 10/21/22 * Complete Metabolic Panel 10/21/22 * Complete Metabolic Panel 05/12/22 * Complete Metabolic Panel 05/19/22 * Complete Metabolic Panel 05/26/22 [facility] 11-01-2022 Evaluation + Plan note Future Appointments Appointment Date:12/23/2021 02:30:00 PM Scheduled Provider: Location:[facility] Appointment Type:PC Nurse Injection Appointment Date:12/30/2021 02:00:00 PM Scheduled Provider:SOILS SHELL Location:[facility] Appointment Type:PC Wellness Medicare Appointment Date:01/14/2022 11:30:00 AM Scheduled Provider:WILLARD PERKINS Location:[facility] PM Appointment Type:PM OV Future Scheduled Tests Radiology* US Soft Tissue Mass Pelvis/Hip/Low Back 12/09/21 [facility] 10-07-2022 Miscellaneous Notes* Telephone Encounter - Tea Ruiz APRN.CNS - 11/21/2021 3:35 PM EDT Noted, seen by [facility] pain management also. * Telephone Encounter - Akua Chen LPN - 11/21/2021 11:12 AM EDT Casi from [facility] called stating that patient was in there office now and she was wanting information on previous visits regarding plan for patients pain. OV was printed and faxed to [phone]. documented in this encounterMer[facility] History of Present illness Narrative* Tea Ruiz APRN.CNS - 11/21/2021 9:00 AM EDT SUBJECTIVE: HEPATITIS B(1 of 3 - 3-dose series) Never done COVID-19 VACCINE(1) Never done PNEUMOCOCCAL(1 - PCV) Never done HPV TESTING Never done PAP TESTING due on 03/06/2008 MAMMOGRAM Never done COLORECTAL CANCER SCREENING Never done DEPRESSION ASSESSMENT Never done INFLUENZA(1) Never done HPI Dayna Moncada is a 51 year old female. PMH signficant for ACTIVE PROBLEM LIST Chronic Pain Syndrome History of Hyperlipidemia Personal History of Scleroderma B12 Deficiency Acquired Arm Deformity, Left Acquired Deformity of Left Lower Leg HPI excerpted from previous visit: Presents today to establish care with Dr Ernandez PCP: EAMON ROSS - Seen most recent for scripts. Previous PCP:Galdino Keita MD. [address] [facility] [address] Pain management: Pamela Rodo Mckin[place] Follower: none Seen at [facility] 08/08/2021 for chronic pain medication refill. She had called our office before beingseen here asking for refills. She was referred back to her previously prescribing provider however went to the [facility] ER for a refill. Outside record review notes she presented with report of chronic pain since age 6. Noted relocation from [place]. Noted deformities of upper and lower extremities onexam. Last seen by her providers in [place] recently. Recent lab work. Outside records: None available at the time of her visit. Has been taking oxycodone 7.5 mg -acetaminophen 325 mg 4x/day for pain management. July 05, 2021. She notes wasting of left side primarily left arm and left leg since childhood. Chronic pain on theright side from overuse. History of B12 deficiency. Gets injections Q month. GERD well controlled on current medication. Since seen internal medicine she has been seen in pain management October 02, 2021 and October.. Opioid treatments deferred, +THC on recent testing and prior nonadherence to plan of treatment. Plan was to continue with Elavil, Zanaflex with caution. Physical therapy. Discussed shoulder injection with orthopedic provider. Injections with pain management were deferred until she spoke withher orthopedist. She was seen in urgent care on October 27, 2021 for right calf pain and cellulitis of the right lower leg. Treated with cephalexin and triamcinolone. Ultrasound ordered to check for DVT, this is negative. Podiatry visit October 30, 2021 for appointment contracture of ankle. Diabetes custom shoe was ordered. Today reports she took extra pain medication. States discussed with orthopedic provider that she states thought was reasonable.Interested in additional refill of oxycodone acetaminophen today. Notes she has been tapering down dosing recently. Interested in B12 injection however recent B12 lab was within normal limits. Review of Systems Constitutional: Negative. Musculoskeletal: Positive for arthralgias, gait problem and myalgias. Objective LMP (LMP Unknown) Physical Exam Vitals and nursing note reviewed. Constitutional: Appearance: Normal appearance. HENT: Head: Normocephalic and atraumatic. Eyes: Conjunctiva/sclera: Conjunctivae normal. Cardiovascular: Rate and Rhythm: Normal rate and regular rhythm. Pulses: Carotid pulses are 2+ on the right side and 2+ on the left side. Radial pulses are 2+ on the right side. Heart sounds: Normal heart sounds. Pulmonary: Effort: Pulmonary effort is normal. Breath sounds: Normal breath sounds. Musculoskeletal: Right lower leg: No edema. Left lower leg: No edema. Comments: Severe atrophy of left arm and left leg Skin: General: Skin is warm and dry. Neurological: Mental Status: She is alert and oriented to person, place, and time. Mental status is at baseline. Psychiatric: Mood and Affect: Affect is tearful. Speech: Speech is rapid and pressured. ALLERGIES Allergen Reactions Duloxetine Other: See Comments Tramadol Other: See Comments Trazodone Other: See Comments Medications triamcinolone (KENALOG) 0.025 % cream Apply 1 application to affected area twice daily. oxyCODONE-acetaminophen (PERCOCET) 7.5-325 mg tablet Take 1 tablet by mouth every 6 hours as neededfor pain for up to 30 days. Do not start before October 11, 2021. eszopiclone (LUNESTA) 3 mg tab Take 1 tablet by mouth daily at bedtime for 180 days. DEXILANT 60 mg CpDM 60 mg once daily. oxyCODONE-acetaminophen (PERCOCET) 7.5-325 mg tablet take 1 tablet by mouth every 6 hours if neededfor pain for 4 days oxyCODONE-acetaminophen (PERCOCET) 7.5-325 mg tablet Take 1 tablet by mouth every 6 hours as neededfor pain for up to 30 days. amitriptyline (ELAVIL) 50 mg tablet Take 1 tablet by mouth daily at bedtime. atorvastatin (LIPITOR) 20 mg tablet Take 1 tablet by mouth daily at bedtime. escitalopram oxalate (LEXAPRO) 10 mg tablet Take 1 tablet by mouth once daily. Fenofibric Acid 45 mg cpDR Take 1 capsule by mouth once daily. tiZANidine (ZANAFLEX) 4 mg tablet Take 1.5 tablets by mouth three times daily. hydrOXYzine HCl (ATARAX) 25 mg tablet Take 1 tablet by mouth four times daily as needed. cyanocobalamin 1,000 mcg/mL Inject 1 mL intramuscularly once every month. Hydrocodone-Acetaminophen 7.5-300 mg ORAL Tab Take by mouth. PAST MEDICAL HISTORY Diagnosis Date Blindness of left eye Breast mass, right 01/23/2010 GERD (gastroesophageal reflux disease) PMH - PAST MEDICAL HISTORY OF Linear Schleraderma PAST SURGICAL HISTORY Procedure Laterality Date EXC CYST/ABERRANT BREAST TISSUE OPEN 1/> LESION 01/23/2010 PAST SURGICAL HISTORY OF Left arm Skin graft PAST SURGICAL HISTORY OF Surgery right knee, to stop growth PAST SURGICAL HISTORY OF surgery left eye to keep closed at night. REVISE MEDIAN N/CARPAL TUNNEL SURG Social History Tobacco Use Smoking status: Every Day Packs/day: 0.50 Years: 15.00 Pack years: 7.50 Types: Cigarettes Smokeless tobacco: Never Vaping Use Vaping Use: Never used Substance Use Topics Alcohol use: No Drug use: No Comment: Marijuana laced brownies at a green party by accident FAMILY HISTORY Problem Relation Age of Onset Diabetes Mother adopted No Known Problems Father Breast Cancer Maternal Aunt ASSESSMENT/PLAN: 1. Chronic pain syndrome - ICD9: 338.4, ICD10: G89.4 (primary diagnosis) - CONSULT TO PAIN MGT - ETODOLAC ER 400 MG TABLET,EXTENDED RELEASE 24 HR 2. Personal history of scleroderma - ICD9: V13.59, ICD10: Z87.39 - CONSULT TO PAIN MGT - ETODOLAC ER 400 MG TABLET,EXTENDED RELEASE 24 HR 3. Acquired arm deformity, left - ICD9: 736.89, ICD10: M21.922 - CONSULT TO PAIN MGT - ETODOLAC ER 400 MG TABLET,EXTENDED RELEASE 24 HR 4. Acquired deformity of left lower leg - ICD9: 736.89, ICD10: M21.962 - CONSULT TO PAIN MGT - ETODOLAC ER 400 MG TABLET,EXTENDED RELEASE 24 HR Dayna Moncada is tearful and very concerned about her pain medication. Discussed tapering down oxycodone acetaminophen dosing until gone to avoid difficulty with stopping medication. Discussed needto follow guidelines for treatment going forward. Provided with etodalac for now. Endorse follow upwith orthopedic provider that she was seeing for shoulder pain and inquire if they can temporarily treat her shoulder pain until improved. Placed consult for pain management provider, will fax to [facility]. Difficult to have conversation as she talked over me when speaking and walked out of the appointment when she could not get refill. Left abruptly despite wanting to go over her recent labwork.Will mail results and letter. She can schedule follow up here if she would like to do so. ER recommended for any severe or concerning symptoms. [address] Ernandez to establish care Tea Ruiz APRN.CNS Medical Decision Making: Problems: Low: Acute, uncomplicated illness or injury Data: Independent interpretation of test from other physician/QHCP Medical Decision Making Level: 3 - Low documented in this encounterMer[facility]09-22-2022 NoteHNO ID: [id number] Author: Melinda Workman MA Service: ? Author Type: Biomedical Specialist Type: Progress Notes Filed: 11/06/2021 9:51 AM Note Text: Review of Systems Constitutional: Positive for activity change. Negative for chills, fever and unexpected weight change. Gastrointestinal: Negative for bowel retention or incontinence Genitourinary: Negative for difficulty urinating. Negative for bladder retention or incontinence Musculoskeletal: Positive for arthralgias, back pain, gait problem, joint swelling, myalgias, neck pain and neck stiffness. Neurological: Positive for weakness. Negative for numbness and headaches. Psychiatric/Behavioral: Positive for dysphoric mood. Negative for sleep disturbance and suicidal ideas. The patient is nervous/anxious.[facility]09-22-[facility]22 NoteHNO ID: [id number] Author: Marcellus Rosado MD Service: ? Author Type: Physician Type: Progress Notes Filed: 11/06/2021 9:54 AM Note Text: [facility] Today's Date: 11/06/2021 Last Visit: 10/02/2021 Name: Dayna Moncada : 1970 Purpose: Follow-up Evaluation Chief complaint: Chronic RIGHT sided Pain Interval History: Dayna Moncada returns today for a follow-up encounter, reporting that since last encounter, the overall pain and functional disability arising from the chief complaint has worsened. She reports she fractured her left shoulder 5 weeks ago, following with [facility]. She reports that she has been taking extra Percocet - her PCP has been prescribing 4 per day, she is often taking 5 per day. For pain, she is taking percocet, Elavil, Zanaflex. Diclofenac made her itchy and was discontinued. She continues to report right-sided shoulder pain, reports she has had injections in the shoulder in the past. She has right-sided low back pain, has had injections in the past. 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 She wears a platform shoe. Regarding medications: The following medication(s) were started or modified: none The following medication(s) were discontinued: none The following medication(s) were continued: none Overall, the medication(s) have helped improve pain and ADL's. They are well-tolerated. The following procedures were performed: none Physical Therapy or Chiropractics was not prescribed. The following new imaging or diagnostic tests were obtained, with relevant findings reported below: X-ray T/L spine (ordered, not obtained) Outside records were requested and obtained from [facility] [place], reviewed today and summarized as follows: June 2021, noted she had developed shingles right breast, axilla and flank, treated by PCP Noted had relief with RFA lumbar spine in the past Imaging reports included below Procedures performed included below Discharged from [facility] for overtaking her pain medication (05/02/2020) Initial HPI: (Obtained on 10/02/2021) Dayna Moncada is a 51 year old year-old female; who presents having been referred by Toribio Ernandez, for evaluation and management of the above-mentioned chief complaint. Patient reports Chronic pain since the age of 6. The onset of symptoms was gradual onset and was without associated trauma. Reports her pain has been progressively worse in the last several years. 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 Currently on Oxycodone 7.5mg from an outside practice, reports she was taking oxycodone 10mg, but her last pain management provider in [place] reduced her pain medications. Recently moved from [place] to [place], she was in pain management in [place]. She was established with [facility]. She went to [facility] for opioid medication refills while waiting to establish with Internal Medicine, whom has been RX her opioids for the last couple of months. She reports she has had several injections with her former pain management, but reports some are partially helpful. She would also like to discuss increasing her opioids as she does not feel her medications are as effective now. Reports she has been on opioid therapy >25 years. Treatments to date include the following: Medications (See below), Injections (See below), Physical Therapy , TENS, and Activity Modification. Pain Description: Timing: intermittant Character: Burning, Sharp, Aching, and Dull Primary Location: Entire RIGHT sided pain Radiation: N/a Exacerbating factors: unable to pinpoint exacerbating factors/positions Relieving factors: unable to pinpoint positions/factors that are mitigating Interferes with: None, reports she pushes through the pain The patient reports 7-8 hours of uninterrupted sleep per night The patient denies difficulty with bowel or bladder control. Current Status: INTAKE PAIN ASSESSMENT 10/30/2021 11/06/2021 Are you having pain associated with your visit today? Yes, Provider notified Yes, Provider notified Pain Scales Verbal (Numeric Rating or Visual Analog Scale) Verbal (Numeric Rating or Visual Analog Scale) Pain Level 7 8 Pain Location Foot-Left Shoulder-Left Description Burning Burning;Sharp;Stabbing Duration Amount of Time 2 - Duration Units Years Years Frequency Continuous Continuous Intervention/Comfort measure Reposition;Relaxation Medication Current Pain Medications: Opioids: Oxycodone 7.5 mg QID NSAIDS: None Anti-depressants: Lexapro, Elavil, Atarax Anti-convulsants: Muscle relaxants: Tizanidine, Others: Lunesta for sleep Analgesia: partially adequate Current Anti-Coagulant Use: No PAST Pain Medications (for the chief complaint(s)): Opi (more content not included)...[facility]09-22-2022 History of Present illness Narrative* Melinda Workman MA - 11/06/2021 9:22 AM EDT Review of Systems Constitutional: Positive for activity change. Negative for chills, fever and unexpected weight change. Gastrointestinal: Negative for bowel retention or incontinence Genitourinary: Negative for difficulty urinating. Negative for bladder retention or incontinence Musculoskeletal: Positive for arthralgias, back pain, gait problem, joint swelling, myalgias, neck pain and neck stiffness. Neurological: Positive for weakness. Negative for numbness and headaches. Psychiatric/Behavioral: Positive for dysphoric mood. Negative for sleep disturbance and suicidal ideas. The patient is nervous/anxious. * Marcellus Rosado MD - 11/06/2021 7:38 AM EDT Images from the original note were not included. [facility] Today's Date: 11/06/2021 Last Visit: 10/02/2021 Name: Dayna Moncada : 1970 Purpose: Follow-up Evaluation Chief complaint: Chronic RIGHT sided Pain Interval History: Dayna Moncada returns today for a follow-up encounter, reporting that since last encounter, the overall pain and functional disability arising from the chief complaint has worsened. She reports she fractured her left shoulder 5 weeks ago, following with [facility]. She reports that she has been taking extra Percocet - her PCP has been prescribing 4 per day, she is often taking 5 per day. For pain, she is taking percocet, Elavil, Zanaflex. Diclofenac made her itchy and was discontinued. She continues to report right-sided shoulder pain, reports she has had injections in the shoulder in the past. She has right-sided low back pain, has had injections in the past. 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 She wears a platform shoe. Regarding medications: The following medication(s) were started or modified: none The following medication(s) were discontinued: none The following medication(s) were continued: none Overall, the medication(s) have helped improve pain and ADL's. They are well-tolerated. The following procedures were performed: none Physical Therapy or Chiropractics was not prescribed. The following new imaging or diagnostic tests were obtained, with relevant findings reported below:X-ray T/L spine (ordered, not obtained) Outside records were requested and obtained from [facility] [place], reviewed today andsummarized as follows: June 2021, noted she had developed shingles right breast, axilla and flank, treated by PCP Noted had relief with RFA lumbar spine in the past Imaging reports included below Procedures performed included below Discharged from [facility] for overtaking her pain medication (05/02/2020) Initial HPI: (Obtained on 10/02/2021) Dayna Moncada is a 51 year old year-old female; who presentshaving been referred by Toribio Ernandez, for evaluation and management of the above-mentioned chiefcomplaint. Patient reports Chronic pain since the age of 6. The onset of symptoms was gradual onset and was without associated trauma. Reports her pain has been progressively worse in the last several years. 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 Currently on Oxycodone 7.5mg from an outside practice, reports she was taking oxycodone 10mg, but her last pain management provider in [place] reduced her pain medications. Recently moved from [place] to [place], she was in pain management in [place]. [facility] She went to [facility] for opioid medication refills while waiting to establish with Internal Medicine, whom has been RX her opioids for the last couple of months. She reports she has had several injections with her former pain management, but reports some are partially helpful. She would also like to discuss increasing her opioids as she does not feel her medications are as effective now. Reports she has been on opioid therapy >25 years. Treatments to date include the following: Medications (See below), Injections (See below), PhysicalTherapy , TENS, and Activity Modification. Pain Description: Timing: intermittant Character: Burning, Sharp, Aching, and Dull Primary Location: Entire RIGHT sided pain Radiation: N/a Exacerbating factors: unable to pinpoint exacerbating factors/positions Relieving factors: unable to pinpoint positions/factors that are mitigating Interferes with: None, reports she pushes through the pain The patient reports 7-8 hours of uninterrupted sleep per night The patient denies difficulty with bowel or bladder control. Current Status: INTAKE PAIN ASSESSMENT 10/30/2021 11/06/2021 Are you having pain associated with your visit today? Yes, Provider notified Yes, Provider notified Pain Scales Verbal (Numeric Rating or Visual Analog Scale) Verbal (Numeric Rating or Visual Analog Scale) Pain Level 7 8 Pain Location Foot-Left Shoulder-Left Description Burning Burning;Sharp;Stabbing Duration Amount of Time 2 - Duration Units Years Years Frequency Continuous Continuous Intervention/Comfort measure Reposition;Relaxation Medication Current Pain Medications: Opioids: Oxycodone 7.5 mg QID NSAIDS: None Anti-depressants: Lexapro, Elavil, Atarax Anti-convulsants: Muscle relaxants: Tizanidine, Others: Lunesta for sleep Analgesia: partially adequate Current Anti-Coagulant Use: No PAST Pain Medications (for the chief complaint(s)): Opioids: Tramadol, Vicodin or [place] (Hydrocodone), Percocet (Oxycodone), and Morphine NSAIDS: Motrin (Ibuprofen), Voltaren (Diclofenac), and Mobic (Meloxicam) Anti-depressants: Cymbalta Anti-convulsants: Neurontin (Gabapentin) and Lyrica (Pregabalin) Muscle Relaxants: Flexeril (Cyclobenzaprine), Skelaxin (Metaxalone), and Zanaflex (Tizanidine) Others: Allergies: ALLERGIES Allergen Reactions Duloxetine Other: See Comments Tramadol Other: See Comments Trazodone Other: See Comments Data Reviewed: Reviewed personally on today's date Relevant Imaging: MRI Spine Report No resulted procedures found. Electrodiagnostic Study (EMG): None Recent labs: Creatinine Date Value Ref Range Status 10/07/2021 0.57 (L) 0.58 - 0.96 mg/dL Final @lastegfr(gfr)@ No results found for: PCGLUCOSE Pain Procedures: 05/05/2021 TFESI, Right L5-S1 08/21/2020 MBB Bilat Lumbar 09/02/2020 SI Joint Injection Bilat 09/02/2020 DATE PROCEDURE IMPROVEMENT None to date at this practice Compliance: PDMP website checked and validated. All prescriptions have been APPROPRIATELY filled. No suspiciousactivity was identified. By Marcellus Rosado MD 11/06/2021 Last Drug screen: 10/02/2021 - appropriate (positive Oxycodone) Risk Assessment: JUANI-7: JUANI - 7 SCORES 10/02/2021 JUANI-7 Score 0 (0-4) minimal anxiety, (5-9) mild anxiety, (10-14) moderate anxiety, (15-21) severe anxiety PHQ-9: PHQ-9 10/02/2021 Score 2 (0-4) minimal depression, (5-9) mild depression, (10-14) moderate depression, (15-19) moderately severe depression, (20-27) severe depression Opioid Risk Tool: Family History of Substance Abuse: 0 - No Personal History of Substance Abuse: 0 - No Age between 16-45: 0 - No History of Pre-Adolescence Sexual Abuse: 0 - No Psychological Disease: 0 - No Risk Total: 0 Total Score Risk Category: Low Risk 0-3 (0-3, low risk or no risk; 4-7, moderate risk, 8+, high risk) Current Medications, Past Medical History, Past Surgical History, Family History, Social History and Review of Systems: On today's date, noted above, I have confirmed and edited as necessary, the PFSH and ROS obtained by others. Physical Exam: 11/06/21 0923 Pulse: 107 Resp: 16 SpO2: 98% Constitutional:normal weight HEENT: Normal Cephalic, Atraumatic, Non-icteric sclera Eyes: Conjunctiva clear. No discharge from eyes, deformity/scleroderma of the LEFT eye Cardiovascular: Appears well perfused Lymphatic: No visible regional lymphadenopathy Skin: No visible rashes or ecchymosis Psychiatric: Full affect, Alert, Pleasant LUMBAR MUSCULOSKELETAL/NEURO EXAM Inspection: - Muscle wasting for the LEFT upper and lower limbs. Posture: RIGHT thoracic prominence scoliosis Gait: Antalgic, ambulates unassisted Palpation: - Lumbar Paraspinal Tenderness: Concordant in the Right lumbar paraspinals - Paraspinal Spasms: None - Facet Loading: Right-negative; Left-negative - Greater Trochanter: None tenderness Bilateral Strength: LEFT RIGHT Iliopsoas (L2) 5 5 Quadriceps (L3) 4 5 Anterior Tibialis (L4): 4 5 Exten Hallucis Longus (L5) 3-4 5 Gastrocnemius (S1): 3-4 5 Muscle Tone: - Decreased on the left Neural Tension Signs: -Straight Leg Exam Negative Bilateral lower limb(s) -Contralateral Straight Leg Raise Negative Left lower limb(s) Sensation: - intact to light touch in the L2-S2 Right lower limb dermatomes Diagnoses: (M47.816) Lumbar spondylosis (primary encounter diagnosis) (M47.814) Thoracic spondylosis without myelopathy (Z79.891) 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 She needs to overcompensate on her right side. She has had chronic pain since she was age 6. She has been on chronic opioid therapy for the last 25 years. She was living with her family and they recently moved back to [place] from [place] therefore she came along with him if she is reliant on them to help. She does currently live with an aunt. She is looking for somebody to take over her chronic opioid therapy. PCP has been managing for her in the interim. Today, after obtaining her history and updating her exam, we discussed her outside records. Of concern was that she had been dismissed from a prior pain clinic for taking more medication than had been prescribed. Today, she reported similar behaviors with the opioid medications prescribed by her PCP. Additionally, she did not obtain the imaging that was requested (plain films). There is a patternof non-compliance, particularly with her medications, which is highly concerning. I explained that we would not be able to prescribe opioids given these concerning behaviors (She also had admitted torecreational marijuana usage at her last appointment). She immediately gathered her things and walked out the door before I could offer her other non-opioid treatments. Should she elect to return to our office, we will consider the following treatments as outlined below: Dayna Moncada would benefit from the following to decrease pain, improve function and/or work participation, and improve quality of life: Medications: Continue Elavil, Zanaflex with caution (PCP) JUANI-7/PHQ-2, and ORT: 10/02/2021 Completed and reviewed Functional Restorationist: No changes-continue current regimen Additional Studies: XR Thoracic and lumbar Spine for baseline imaging Referrals: PT Additional: I was able to advise her to discuss shoulder injections with her Orthopedist. Given therecent left shoulder fracture, I advised her to hold off on any injections until she spoke with herOrthopedist. Depending on response to the above plan, consider: MBB/ELAINA L-spine Follow-up: PRN basis Attribution: In addition to reviewing the information noted above, some elements copied from my most recent clinical note(s), including the physical exam (completed in entirety today), and the impression and plan sections, have been updated where appropriate. All reflect current medical decision making from today's date. Marcellus Rosado MD, MBA Pain Management [facility] documented in this encounterMer[facility]09-15-[facility] History of Present illness Narrative* Andrew Jenkins - 10/30/2021 11:06 AM EDT Consultation requested by Dr. Ernandez for an opinion regarding left foot callus. My final recommendations will be communicated back to the requesting physician by way of shared Medical record or letter to requesting physician via US mail. Initial Podiatric Office Visit: Chief Complaint: This 51 year old female who presents with chief complaint:painful callus of left foot HPI Patient presents to clinic for evaluation of left foot. She complains of painful callus of left foot. She states she recently went to a senior integration developer in [place] who would debride the callus She is not diabetic but in the past, she was able to get custom shoes made. PAIN EVALUATION 10/30/2021 1057 Pain Level: 7 Pain Location: Foot-Left Description: Burning Duration Amount of Time: 2 Duration Units: Years Frequency: Continuous Intervention/Comfort measure: Reposition;Relaxation No results found for: HBA1C PCP: Toribio Ernandez MD PAST MEDICAL HISTORY Diagnosis Date Blindness of left eye Breast mass, right 01/23/2010 GERD (gastroesophageal reflux disease) PMH - PAST MEDICAL HISTORY OF Linear Schleraderma Current Outpatient Medications Medication Sig cephALEXin (KEFLEX) 500 mg capsule Take 1 capsule by mouth three times daily for 7 days. oxyCODONE-acetaminophen (PERCOCET) 7.5-325 mg tablet Take 1 tablet by mouth every 6 hours as neededfor pain for up to 30 days. Do not start before October 11, 2021. eszopiclone (LUNESTA) 3 mg tab Take 1 tablet by mouth daily at bedtime for 180 days. DEXILANT 60 mg CpDM 60 mg once daily. diclofenac, EC, (VOLTAREN) 50 mg EC tablet 50 mg twice daily. oxyCODONE-acetaminophen (PERCOCET) 7.5-325 mg tablet take 1 tablet by mouth every 6 hours if neededfor pain for 4 days oxyCODONE-acetaminophen (PERCOCET) 7.5-325 mg tablet Take 1 tablet by mouth every 6 hours as neededfor pain for up to 30 days. amitriptyline (ELAVIL) 50 mg tablet Take 1 tablet by mouth daily at bedtime. atorvastatin (LIPITOR) 20 mg tablet Take 1 tablet by mouth daily at bedtime. escitalopram oxalate (LEXAPRO) 10 mg tablet Take 1 tablet by mouth once daily. Fenofibric Acid 45 mg cpDR Take 1 capsule by mouth once daily. tiZANidine (ZANAFLEX) 4 mg tablet Take 1.5 tablets by mouth three times daily. hydrOXYzine HCl (ATARAX) 25 mg tablet Take 1 tablet by mouth four times daily as needed. cyanocobalamin 1,000 mcg/mL Inject 1 mL intramuscularly once every month. amLODIPine-benazepril (LOTREL) 2.5-10 mg per capsule Take by mouth. triamcinolone (KENALOG) 0.025 % cream Apply 1 application to affected area twice daily. Hydrocodone-Acetaminophen 7.5-300 mg ORAL Tab takes one tab three times a day as needed. (Patient not taking: Reported on 10/30/2021) No current facility-administered medications for this visit. ALLERGIES Allergen Reactions Duloxetine Other: See Comments Tramadol Other: See Comments Trazodone Other: See Comments PAST SURGICAL HISTORY Procedure Laterality Date EXC CYST/ABERRANT BREAST TISSUE OPEN /> LESION 01/23/2010 PAST SURGICAL HISTORY OF Left arm Skin graft PAST SURGICAL HISTORY OF Surgery right knee, to stop growth PAST SURGICAL HISTORY OF surgery left eye to keep closed at night. REVISE MEDIAN N/CARPAL TUNNEL SURG FAMILY HISTORY Problem Relation Age of Onset Diabetes Mother adopted No Known Problems Father Breast Cancer Maternal Aunt Social History Tobacco Use Smoking status: Every Day Packs/day: 0.50 Years: 15.00 Pack years: 7.50 Types: Cigarettes Smokeless tobacco: Never Vaping Use Vaping Use: Never used Substance Use Topics Alcohol use: No Drug use: No Comment: Marijuana laced brownies at a green party by accident REVIEW OF SYSTEMS GENERAL: Negative for Malaise, significant weight loss, fever RESPIRATORY: Negative for cough, wheezing and shortness of breath CARDIOVASCULAR: Negative for chest pain, leg swelling and palpitations GI: Negative for abdominal discomfort, blood in stools or black stools and change in bowel habits : Negative for dysuria, frequency and incontinence MUSCULOSKELETAL: Negative for joint pain or swelling, back pain, and muscle pain. SKIN: Negative for lesions, rash, and itching. HEMATOLOGY/LYMPHOLOGY Negative for prolonged bleeding, bruising easily, and swollen nodes. ENDOCRINE: Negative for cold or heat intolerance, polyuria, polydipsia and goiter. NEURO: negative Physical Exam: Constitutional: Pt is a well developed 51 year old female who is alert, oriented and cooperative Eyes: Following during examination. No redness or drainage. Respiratory: RR normal and nonlabored. Even breathing. No evidence of distress or shortness of breath. Psychology: Patient is engaged during conversation. Normal affect and mood. Does not appear depressed or anxious during encounter. Vascular: Dorsalis pedis and posterior tibial faintly pulses palpable as b/l Capillary Fill time < 5 seconds to digits 1-5 b/l Skin temperature warm to cool proximal to distal b/l Hair growth present to digits Neurological: decreased light touch/epicritic sensation b/l decresaed protective sensation decreased significant neurological deficits Dermatological: Nails 1-5 b/l appear normal. Webspaces clean and dry 1-4 b/l. Skin appears well hydrated and supple. good color, texture, turgor. No open lesions present. Callus present to left 5th metatarsal Musculoskeletal/Orthopaedic: Patient has pain to palpation of left 5th metatarsal at site of callus Atrophy of fat pad is noted to b/l feet Foot type is cavus structurally AJ ROM is decreased with knee extended and flexed 1st MPJ is decreased when loaded and no pain or crepitus are noted with ROM. MTJ, STJ are full and free of pain and crepitus. +5/5 muscle strength dorsiflexion, plantarflexion, inversion, eversion b/l Radiographs: n/a ASSESSMENT: (M24.573) Equinus contracture of ankle (primary encounter diagnosis) (Q66.70) Pes cavus (L84) Callus of foot (M21.962) Acquired deformity of left lower leg (G89.4) Chronic pain syndrome (Z87.39) Personal history of scleroderma PLAN: 1. History and physical examination performed. 2. Painful callus reduced today with 15 blade and dremmel 3. Given her cavus foot, equinus contracture of ankle, history of scleroderma and atrophy of fat pad, custom shoes is best option for this patient. 4. F/u in 3 months for callus debridement or as needed. 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 Johanna Garcia LPN documented in this encounterMer[facility]09-13-2022 Miscellaneous Notes* Telephone Encounter - Liss Valentino - 10/28/2021 10:29 AM EDT Patient given results and verbalized understanding of instructions given. Liss Valentino * Telephone Encounter - Grace Golden PA-C - 10/28/2021 10:07 AM EDT Let patient know her US showed no blood clot. Continue medications prescribed at visit and follow up with pcp as needed. documented in this encounterMercy Health [facility]09-12-2022 History of Present illness Narrative* Ginny Costa APRN.TAX INTERN - 10/27/2021 5:58 PM EDT Images from the original note were not included. Subjective Trauma Associated symptoms include a rash. Pertinent negatives include no chills or fever. Dayna Lewis a 51 year old female who presents with a rash on her right posterior lower extremity. States that the rash began after being at the fair [place]. Describes the area as itchy, warm and painful.Has tried taking benadryl for the itching without relief. Denies known insect bites or trauma. Denies fever or systemic symptoms. Review of Systems Constitutional: Negative for chills, fever and malaise/fatigue. Musculoskeletal: Negative for joint pain. Skin: Positive for itching and rash. Neurological: Negative for tingling and sensory change. BP 150/96 Pulse 92 Temp 36.9 C (98.5 F) Resp 18 Wt 47.4 kg (104 lb 9.6 oz) SpO2 96% BMI23.45 kg/m PAST MEDICAL HISTORY Diagnosis Date Blindness of left eye Breast mass, right 01/23/2010 GERD (gastroesophageal reflux disease) PMH - PAST MEDICAL HISTORY OF Linear Schleraderma PAST SURGICAL HISTORY Procedure Laterality Date EXC CYST/ABERRANT BREAST TISSUE OPEN LESION 01/23/2010 PAST SURGICAL HISTORY OF Left arm Skin graft PAST SURGICAL HISTORY OF Surgery right knee, to stop growth PAST SURGICAL HISTORY OF surgery left eye to keep closed at night. REVISE MEDIAN N/CARPAL TUNNEL SURG ALLERGIES Duloxetine, Tramadol, and Trazodone MEDICATIONS cephALEXin (KEFLEX) 500 mg capsule Take 1 capsule by mouth three times daily for 7 days. triamcinolone (KENALOG) 0.025 % cream Apply 1 application to affected area twice daily. oxyCODONE-acetaminophen (PERCOCET) 7.5-325 mg tablet Take 1 tablet by mouth every 6 hours as neededfor pain for up to 30 days. Do not start before October 11, 2021. eszopiclone (LUNESTA) 3 mg tab Take 1 tablet by mouth daily at bedtime for 180 days. DEXILANT 60 mg CpDM 60 mg once daily. diclofenac, EC, (VOLTAREN) 50 mg EC tablet 50 mg twice daily. oxyCODONE-acetaminophen (PERCOCET) 7.5-325 mg tablet take 1 tablet by mouth every 6 hours if neededfor pain for 4 days oxyCODONE-acetaminophen (PERCOCET) 7.5-325 mg tablet Take 1 tablet by mouth every 6 hours as neededfor pain for up to 30 days. amitriptyline (ELAVIL) 50 mg tablet Take 1 tablet by mouth daily at bedtime. atorvastatin (LIPITOR) 20 mg tablet Take 1 tablet by mouth daily at bedtime. escitalopram oxalate (LEXAPRO) 10 mg tablet Take 1 tablet by mouth once daily. Fenofibric Acid 45 mg cpDR Take 1 capsule by mouth once daily. tiZANidine (ZANAFLEX) 4 mg tablet Take 1.5 tablets by mouth three times daily. hydrOXYzine HCl (ATARAX) 25 mg tablet Take 1 tablet by mouth four times daily as needed. cyanocobalamin 1,000 mcg/mL Inject 1 mL intramuscularly once every month. Hydrocodone-Acetaminophen 7.5-300 mg ORAL Tab takes one tab three times a day as needed. (Patient not taking: No sig reported) amLODIPine-benazepril (LOTREL) 2.5-10 mg per capsule Take by mouth. FAMILY HISTORY Problem Relation Age of Onset Diabetes Mother adopted No Known Problems Father Breast Cancer Maternal Aunt Social History Tobacco Use Smoking status: Every Day Packs/day: 0.50 Years: 15.00 Pack years: 7.50 Types: Cigarettes Smokeless tobacco: Never Vaping Use Vaping Use: Never used Substance Use Topics Alcohol use: No Drug use: No Comment: Marijuana laced brownies at a green party by accident Objective Physical Exam Vitals and nursing note reviewed. Constitutional: Appearance: Normal appearance. Musculoskeletal: General: No signs of injury. Skin: General: Skin is warm and dry. Findings: Bruising, erythema and rash present. No signs of injury, laceration, lesion, petechiae orwound. Comments: Unable to compare calf measurements due to atrophy/developmental abnormality of left leg.Patient states right calf is swollen. Neurological: Mental Status: She is alert. ASSESSMENT/PLAN: 1. Right calf pain - ICD9: 729.5, ICD10: M79.661 (primary diagnosis) - US LEG VEIN DVT UNL VAS LAB- appointment scheduled for tomorrow at 10:00 AM 2. Cellulitis of right lower leg - ICD9: 682.6, ICD10: L03.115 - Begin treatment with Cephalaxin (Keflex) - No lymphangetic streaking, this was defined for patient to watch for and to seek medical care immediately if appears - CEPHALEXIN 500 MG CAPSULE 3. Itching - ICD9: 698.9, ICD10: L29.9 - TRIAMCINOLONE ACETONIDE 0.025 % TOPICAL CREAM 4. Elevated blood pressure reading without diagnosis of hypertension - ICD9: 796.2, ICD10: R03.0 - Encouraged dietary sodium restriction/DASH diet - Recommended regular aerobic exercise. - BP today in office 150/96. Pt does have access to home BP monitoring. Pt instructed to recheck BPat home and follow up with PCP if it is not <130/80 Radha Moreno APRN Student TEACHING PROVIDER (Physician/PA/AUTO CLUTCH SPECIALIST) NOTE OF PERSONAL INVOLVEMENT IN CARE: I have personally seen and examined the patient and performed the medical decision-making components. I have reviewed the Advanced Practice Registered Nurse (AUTO CLUTCH SPECIALIST) Student's documentation and verified the findings in the note as written. Any additions or changes are noted in bold/italics. Signature: Ginny Costa Date: 10/27/2021 Time: 6:19 PM documented in this encounterMer[facility]09-12-2022 Instructions* Patient Instructions* Ginny Costa APRN.TAX INTERN - 10/27/2021 5:54 PM EDT ASSESSMENT/PLAN: 1. Right calf pain - ICD9: 729.5, ICD10: M79.661 (primary diagnosis) - US LEG VEIN DVT UNL VAS LAB- appointment scheduled for tomorrow at 10:00 AM 2. Cellulitis of right lower leg - ICD9: 682.6, ICD10: L03.115 - Begin treatment with Cephalaxin (Keflex) - No lymphangetic streaking, this was defined for patient to watch for and to seek medical care immediately if appears - CEPHALEXIN 500 MG CAPSULE 3. Itching - ICD9: 698.9, ICD10: L29.9 - TRIAMCINOLONE ACETONIDE 0.025 % TOPICAL CREAM - Follow-up with your PCP in 3-5 days if symptoms have not improved or sooner if symptoms worsen - Discussed red flags and need for immediate medical evaluation if any occur. - Discussed supportive care treatment with fluids, rest and analgesia. - Discussed expected course of illness Ginny Costa APRN.TAX INTERN [facility] PATIENT INFO SKIN INFECTION OVERVIEW Cellulitis is an infection of the skin and soft tissue of the skin. The infection is usually causedby bacteria that normally live on the skin, such as staphylococci ( Staph ) or streptococci ( Strep ). The infection develops when there is a break in the skin, such as a wound or injury, which may be minor. This allows bacteria to enter the skin and grow, causing infection and swelling. Most cases of cellulitis are mild and heal completely with antibiotic treatment. However, the infection can become severe and cause a bodywide infection if left untreated. It is important to seek medical care promptly if you could have a skin infection. SKIN INFECTION RISK FACTORS Certain conditions increase the risk of developing cellulitis. These include: Recent injury to the skin (a wound, abrasion, cut, recent shaving, or injection drug use) Swelling of the skin due to radiation therapy Current skin infection, such as athlete's foot or impetigo Accumulation of fluid (edema) due to poor circulation, heart failure, liver disease, or past surgery to remove lymph nodes Being overweight Chronic skin conditions, such as eczema or psoriasis However, cellulitis can also develop in people who have no known risk factors. SKIN INFECTION SYMPTOMS Cellulitis -- The most common symptom of cellulitis is pain or tenderness. Other cellulitis symptoms can include swelling, warmth, and redness in a distinct area of skin. These symptoms usually worsen and the redness may expand over the course of a few days. The skin is usually smooth and shiny rather than raised or bumpy. Fever and chills are not common. The most common areas of the body for cellulitis to develop include the legs and the arms; it can also develop around the eye, on the abdominal wall, in the mouth, and around the anus. Other skin infections -- Other types of skin infections include abscesses, furuncles ( boils ), andcarbuncles. These usually cause a collection of pus under the skin. Skin that is raised, reddened, tender, and pus-filled may be caused by a skin infection known as methicillin-resistant Staphylococcus aureus (MRSA). DO I NEED TO BE EXAMINED? There are many types and causes of skin infections, and it is important to know the most likely cause of the infection before beginning treatment. Using the wrong treatment could allow the infection to worsen. To ensure that the correct treatment is used, it is important to be evaluated by a healthcare provider. SKIN INFECTION TREATMENT Cellulitis treatment includes antibiotics as well as treatment of any underlying condition that ledto the skin infection. Elevate the area -- Elevating the arm or leg above the level of the heart can help to reduce swelling and speed healing. Keep the area clean and dry -- It is important to keep the infected area clean and dry. You can shower or bathe normally, and pat the area dry with a clean towel. You can use a bandage or gauze to protect the skin, if needed. Do not use any antibiotic ointments or creams. Antibiotics -- Most people with cellulitis are treated with an antibiotic that is taken by mouth for one to two weeks. The best antibiotic depends upon your situation. If the infection is severe, you may need to be hospitalized and treated with antibiotics given intoa vein (IV). It is important to take the antibiotic exactly as recommended and to finish the entire course of treatment. Skipping doses or ending treatment early could potentially allow the bacteria to become resistant and require longer treatment. Time to heal -- The swelling, warmth, and redness should begin to improve within one to three days after starting antibiotics, although these symptoms can persist for two weeks. If the reddened area becomes larger, more swollen, or more tender, call your healthcare provider. He or she may want to reexamine you to determine if further testing or an alternate antibiotic are needed. SKIN INFECTION PROGNOSIS In most cases, you will recover completely from an episode of cellulitis without any complications.If you have skin infection risk factors talk to your healthcare provider to determine if there are steps you can take to minimize the risk of infections in the future. documented in this encounterMercy Health [facility]08-23-2022 Miscellaneous Notes* Telephone Encounter - Missy Cabrera LPN - 10/07/2021 11:28 AM EDT Spoke with pt and information listed below given. Pt verbalizes understanding. Pt declined in scheduling a lab apt and will walk in to get done. Missy Cabrera LPN * Telephone Encounter - Tea Ruiz APRN.CNS - 10/06/2021 10:54 AM EDT She needs to complete labwork ordered at her visit before her next fill, so sometime this week.Thencan fill one additional until pain management takes over. She was seen by pain management 10/02. Outside pain management records requested prior to taking over chronic treatment of pain. PDMP website checked and validated. All prescriptions have been APPROPRIATELY filled. No suspiciousactivity was identified. 10/06/2021 by Tea Ruiz APRN.CNS * Telephone Encounter - Griselda Culver - 10/06/2021 10:38 AM EDT Patient has been identified by name and date of : Yes Requested Prescriptions Pending Prescriptions Disp Refills oxyCODONE-acetaminophen (PERCOCET) 7.5-325 mg tablet 120 tablet 0 Sig: Take 1 tablet by mouth every 6 hours as needed for pain for up to 30 days. RX INSTRUCTIONS: Pain management provider will not prescribe medication until her appointment next month. Patient is asking if PCP office can refill without being seen? Patient is aware she is not due for refill until 10/11 Patient aware RX will be sent to pharmacy. No need to notify patient. Griselda Culver documented in this encounterMercy [facility]08-18-2022 NoteHNO ID: [id number] Author: Amaya Mendoza MA Service: ? Author Type: Biomedical Specialist Type: Progress Notes Filed: 10/02/2021 9:37 AM Note Text: Review of Systems Constitutional: Negative for activity change, chills, fever and unexpected weight change. Gastrointestinal: Negative for bowel retention or incontinence Genitourinary: Negative for difficulty urinating. Negative for bladder retention or incontinence Musculoskeletal: Positive for arthralgias, back pain, gait problem, joint swelling, myalgias, neck pain and neck stiffness. Neurological: Positive for weakness and numbness. Negative for headaches. Psychiatric/Behavioral: Positive for dysphoric mood. Negative for sleep disturbance and suicidal ideas. The patient is nervous/anxious.[facility]08-18-2022 NoteHNO ID: [id number] Author: Silvana Joe APRN.TAX INTERN Service: ? Author Type: Nurse Practitioner Type: Progress Notes Filed: 10/02/2021 9:37 AM Note Text: [facility] Today's Date: 10/02/2021 Last Visit: N/A Name: Dayna Moncada : 1970 Purpose: New Patient Evaluation Chief complaint: Chronic RIGHT sided Pain Interval History: N/A Initial HPI: (Obtained on 10/02/2021) Dayna Moncada is a 51 year old year-old female; who presents having been referred by Toribio Ernandez, for evaluation and management of the above-mentioned chief complaint. Patient reports Chronic pain since the age of 6. The onset of symptoms was gradual onset and was without associated trauma. Reports her pain has been progressively worse in the last several years. 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 Currently on Oxycodone 7.5mg from an outside practice, reports she was taking oxycodone 10mg, but her last pain management provider in [place] reduced her pain medications. Recently moved from [place] to [place], she was in pain management in [place]. She was established with [facility]. She went to [facility] for opioid medication refills while waiting to establish with Internal Medicine, whom has been RX her opioids for the last couple of months. She reports she has had several injections with her former pain management, but reports some are partially helpful. She would also like to discuss increasing her opioids as she does not feel her medications are as effective now. Reports she has been on opioid therapy >25 years. Treatments to date include the following: Medications (See below), Injections (See below), Physical Therapy , TENS, and Activity Modification. Pain Description: Timing: intermittant Character: Burning, Sharp, Aching, and Dull Primary Location: Entire RIGHT sided pain Radiation: N/a Exacerbating factors: unable to pinpoint exacerbating factors/positions Relieving factors: unable to pinpoint positions/factors that are mitigating Interferes with: None, reports she pushes through the pain The patient reports 7-8 hours of uninterrupted sleep per night The patient denies difficulty with bowel or bladder control. Current Status: INTAKE PAIN ASSESSMENT 09/16/2021 10/02/2021 Are you having pain associated with your visit today? Yes, Provider notified Yes, Provider notified Pain Scales Verbal (Numeric Rating or Visual Analog Scale) Verbal (Numeric Rating or Visual Analog Scale) Pain Level 6 7 Pain Location Ear-Left Back-Lower Description Burning Burning;Sharp Duration Amount of Time 1 - Duration Units Weeks Years Frequency Continuous Intermittent Intervention/Comfort measure Medication Reposition;Relaxation;Positioning;Medication Current Pain Medications: Opioids: Oxycodone 7.5 mg QID NSAIDS: Diclofenac 50mg BID Anti-depressants: Lexapro, Elavil, atarax Anti-convulsants: Muscle relaxants: Tizanidine, Others: Lunesta for sleep Analgesia: partially adequate Current Anti-Coagulant Use: No PAST Pain Medications (for the chief complaint(s)): Opioids: Tramadol, Vicodin or Whitfield (Hydrocodone), Percocet (Oxycodone), and Morphine NSAIDS: Motrin (Ibuprofen), Voltaren (Diclofenac), and Mobic (Meloxicam) Anti-depressants: Cymbalta Anti-convulsants: Neurontin (Gabapentin) and Lyrica (Pregabalin) Muscle Relaxants: Flexeril (Cyclobenzaprine), Skelaxin (Metaxalone), and Zanaflex (Tizanidine) Others: Allergies: ALLERGIES Allergen Reactions Duloxetine Other: See Comments Tramadol Other: See Comments Trazodone Other: See Comments Data Reviewed: Reviewed personally on today's date 10/02/2021 Relevant Imaging: MRI Spine Report No resulted procedures found. Electrodiagnostic Study (EMG): None Recent labs: No results found for: CREAT @lastegfr(gfr)@ No results found for: PCGLUCOSE Pain Procedures: DATE PROCEDURE IMPROVEMENT None to date at this practice Compliance: PDMP website checked and validated. All prescriptions have been APPROPRIATELY filled. No suspicious activity was identified. 10/02/2021 by Silvana Joe APRN.TAX INTERN Last Drug screen: Not Applicable Risk Assessment: JUANI-7: JUANI - 7 SCORES 10/02/2021 JUANI-7 Score 0 (0-4) minimal anxiety, (5-9) mild anxiety, (10-14) moderate anxiety, (15-21) severe anxiety PHQ-9: PHQ-9 10/02/2021 Score 2 (0-4) minimal depression, (5-9) mild depression, (10-14) moderate depression, (15-19) moderately severe depression, (20-27) severe depression Opioid Risk Tool: Family History of Substance Abuse: 0 - No Personal History of Substance Abuse: 0 - No Age between 16-45: 0 - No History of Pre-Adolescence Sexual Abuse: 0 - No Psychological Disease: 0 - No Risk Total: 0 Total Score Risk Category: Low Risk 0-3 (0-3, (more content not included)...[facility]08-06-2022 Miscellaneous Notes* Telephone Encounter - Viviana Chaney LPN - 09/20/2021 9:48 AM EDT Pt calling for refills. Seen CHOCOLATE COATER 08/12/21. Next appt is 11/12/21 Asking for rx today. documented in this encounterMercy Health [facility]iff[facility]08-02-2022 History of Present illness Narrative* Gregorio Soto APRN.TAX INTERN - 09/16/2021 3:39 PM EDT Images from the original note were not included. Subjective HPI Nontoxic-appearing female presents urgent care chief complaint left ear pain. Duration of symptoms 1 week. Associated symptoms left ear pain. Patient states first noticed discomfort 1 week ago. Patient states she has not used any OTC medications. States she may have scratched her ear. Has not had any ear trauma or ear drainage. No pain on the internal ear. Denies any fever body aches chills nausea vomiting abdominal pain otorrhea change in hearing hearing disturbances. Past medical history prescription medication use allergies reviewed. .Patient presents with: Ear Pain: Pt reported (LT) ear pain rated6, x1 wk external ear PAST MEDICAL HISTORY Diagnosis Date Blindness of left eye Breast mass, right 01/23/2010 GERD (gastroesophageal reflux disease) PMH - PAST MEDICAL HISTORY OF Linear Schleraderma PAST SURGICAL HISTORY Procedure Laterality Date EXC CYST/ABERRANT BREAST TISSUE OPEN 1/> LESION 01/23/2010 PAST SURGICAL HISTORY OF Left arm Skin graft PAST SURGICAL HISTORY OF Surgery right knee, to stop growth PAST SURGICAL HISTORY OF surgery left eye to keep closed at night. REVISE MEDIAN N/CARPAL TUNNEL SURG ALLERGIES Duloxetine, Tramadol, and Trazodone MEDICATIONS DEXILANT 60 mg CpDM 60 mg once daily. diclofenac, EC, (VOLTAREN) 50 mg EC tablet 50 mg twice daily. eszopiclone (LUNESTA) 3 mg tab daily at bedtime. amitriptyline (ELAVIL) 50 mg tablet Take 1 tablet by mouth daily at bedtime. atorvastatin (LIPITOR) 20 mg tablet Take 1 tablet by mouth daily at bedtime. escitalopram oxalate (LEXAPRO) 10 mg tablet Take 1 tablet by mouth once daily. Fenofibric Acid 45 mg cpDR Take 1 capsule by mouth once daily. hydrOXYzine HCl (ATARAX) 25 mg tablet Take 1 tablet by mouth four times daily as needed. cyanocobalamin 1,000 mcg/mL Inject 1 mL intramuscularly once every month. oxyCODONE-acetaminophen (PERCOCET) 7.5-325 mg tablet take 1 tablet by mouth every 6 hours if neededfor pain for 4 days oxyCODONE-acetaminophen (PERCOCET) 7.5-325 mg tablet Take 1 tablet by mouth every 6 hours as neededfor pain for up to 30 days. oxyCODONE-acetaminophen (PERCOCET) 7.5-325 mg tablet Take 1 tablet by mouth every 6 hours as neededfor pain for up to 30 days. Do not start before September 11, 2021. tiZANidine (ZANAFLEX) 4 mg tablet Take 1.5 tablets by mouth three times daily. metaxalone (SKELAXIN) 800 mg ORAL tablet Takes one tab three times daily. Hydrocodone-Acetaminophen 7.5-300 mg ORAL Tab takes one tab three times a day as needed. amlodipine-benazepril (LOTREL) 2.5-10 mg ORAL per capsule takes one tab a day. doxycycline 100 mg ORAL tablet takes two tabs a day. meloxicam (MOBIC) 7.5 mg ORAL tablet takes 1 tab a day. cyclobenzaprine (FLEXERIL) 5 mg ORAL tablet takes one tab a hs. zolpidem 10 mg ORAL Tab takes one tab at hs. FAMILY HISTORY Problem Relation Age of Onset Diabetes Mother adopted No Known Problems Father Breast Cancer Maternal Aunt Social History Tobacco Use Smoking status: Current Every Day Smoker Packs/day: 0.50 Years: 15.00 Pack years: 7.50 Types: Cigarettes Smokeless tobacco: Never Used Substance Use Topics Alcohol use: No Drug use: No BP 134/78 Pulse 100 Temp 36.7 C (98.1 F) Resp 16 Wt 49.4 kg (108 lb 12.8 oz) SpO2 97% BMI 24.39 kg/m Review of Systems Constitutional: Negative for chills, fever and malaise/fatigue. HENT: Positive for ear pain. Negative for congestion, ear discharge, sinus pain and sore throat. Eyes: Negative for blurred vision, pain, discharge and redness. Respiratory: Negative for cough, hemoptysis, sputum production, shortness of breath, wheezing and stridor. Cardiovascular: Negative for chest pain. Gastrointestinal: Negative for abdominal pain, diarrhea, nausea and vomiting. Musculoskeletal: Negative for myalgias. Skin: Negative for itching and rash. Neurological: Negative for dizziness and headaches. Objective Physical Exam Vitals and nursing note reviewed. Constitutional: General: She is not in acute distress. Appearance: She is not diaphoretic. HENT: Head: Normocephalic and atraumatic. Jaw: No trismus. Right Ear: Hearing and ear canal normal. No decreased hearing noted. No drainage, swelling or tenderness. No mastoid tenderness. Tympanic membrane is not perforated, erythematous or bulging. Left Ear: Hearing, tympanic membrane, ear canal and external ear normal. No decreased hearing noted. Tenderness present. No drainage or swelling. No mastoid tenderness. Tympanic membrane is not perforated, erythematous or bulging. Ears: Comments: Abrasion noted external left ear. No tragal tenderness. No erythema edema. Mouth/Throat: Mouth: Mucous membranes are moist. Pharynx: Oropharynx is clear. Uvula midline. No oropharyngeal exudate, posterior oropharyngeal erythema or uvula swelling. Tonsils: No tonsillar abscesses. Eyes: General: Right eye: No discharge. Left eye: No discharge. Conjunctiva/sclera: Conjunctivae normal. Pupils: Pupils are equal, round, and reactive to light. Cardiovascular: Rate and Rhythm: Normal rate and regular rhythm. Heart sounds: Normal heart sounds. Pulmonary: Effort: Pulmonary effort is normal. No tachypnea, accessory muscle usage or respiratory distress. Breath sounds: Normal breath sounds. No stridor. No wheezing, rhonchi or rales. Chest: Chest wall: No tenderness. Abdominal: Palpations: Abdomen is soft. Tenderness: There is no abdominal tenderness. Musculoskeletal: General: No tenderness. Normal range of motion. Cervical back: Normal range of motion and neck supple. No rigidity or tenderness. Lymphadenopathy: Head: Right side of head: No submental, submandibular, tonsillar, preauricular, posterior auricular or occipital adenopathy. Left side of head: No submental, submandibular, tonsillar, preauricular, posterior auricular or occipital adenopathy. Cervical: No cervical adenopathy. Right cervical: No superficial or posterior cervical adenopathy. Left cervical: No superficial or posterior cervical adenopathy. Skin: General: Skin is warm and dry. Findings: No rash. Neurological: Mental Status: She is alert and oriented to person, place, and time. ASSESSMENT/PLAN: 1. Ear infection - ICD9: 382.9, ICD10: H66.90 Patient diagnosed with ear infection. Will use mupirocin topical. Patient was educated on supportive therapies. Patient will follow up with primary care provider as needed. Patient was instructed to immediately proceed to emergency room for any new, worsening, or symptoms lasting longer than anticipated. The patient's clinical presentation is otherwise unremarkable at this time. Based on exam andclinical finding, the patient is stable for discharge. Plan of care was discussed with patient. Patient verbalizes understanding and agrees to plan of care. This note was generated using [employer] software. It may contain errors in wording, punctuation, or spelling. Gregorio Soto APRN.GARRISON documented in this encounterMercy Health [facility] Hospital06-29-2022 Miscellaneous Notes* Telephone Encounter - Keerthi Monk - 08/13/2021 9:34 AM EDT Patient has been scheduled for 10/02/21 in [place] with Silvana Joe. Keerthi Monk * Telephone Encounter - Manuela Voss - 08/12/2021 3:49 PM EDT Patient would like to be seen by pain management in [place]. Order has been placed, please assist. documented in this encounterMercy Health Tiffin Hospital06-28-2022 Instructions* Patient Instructions* Tea Ruiz APRN.CNS - 08/12/2021 2:56 PM EDT Check to see if your insurance covers Tdap (tetanus diphtheria pertussis ) vaccine and what location to get the vaccine -usually best covered at your local pharmacy where you get prescriptions filled Consider stopping smoking documented in this encounterMercy Health Tiff[facility] Hospital06-28-2022 History of Present illness Narrative* Tea Ruiz APRN.CNS - 08/12/2021 2:40 PM EDT SUBJECTIVE: COVID-19 VACCINE(1) Never done PNEUMOCOCCAL(1 - PCV) Never done HEPATITIS C SCREENING Never done HIV SCREENING Never done HPV TESTING Never done PAP TESTING due on 03/06/2008 MAMMOGRAM Never done LIPID SCREEN Never done DIABETES SCREEN Never done COLORECTAL CANCER SCREENING Never done HPI Dayna Moncada is a 51 year old female. 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 Previous PCP:Galdino Keita MD. [address] [facility] [id number] Pain management: Pamela MOMIN Derrick Follower: none Seen at [facility] 08/08/2021 for chronic pain medication refill. She had called our office before beingseen here asking for refills. She was referred back to her previously prescribing provider however went to the [facility] ER for a refill. Outside record review notes she presented with report of chronic pain since age 6. Noted relocation from [place]. No deformities of upper and lower extremities on exam. Last seen by her providers in [place] recently. Recent lab work. Outside records: None available at the time of her visit. Has been taking oxycodone 7.5 mg -acetaminophen 325 mg 4x/day for pain management. July 05, 2021. She notes wasting of left side primarily left arm and left leg since childhood. Chronic pain on theright side from overuse. History of B12 deficiency. Gets injections Q month. GERD well controlled on current medication. Review of Systems Constitutional: Negative. Musculoskeletal: Positive for arthralgias, gait problem and myalgias. Objective BP 152/88 Pulse 84 Resp 16 Ht 142.2 cm (4' 8 ) Wt 48.5 kg (107 lb) BMI 23.99 kg/m Physical Exam Vitals and nursing note reviewed. Constitutional: Appearance: Normal appearance. HENT: Head: Normocephalic and atraumatic. Eyes: Conjunctiva/sclera: Conjunctivae normal. Cardiovascular: Rate and Rhythm: Normal rate and regular rhythm. Pulses: Carotid pulses are 2+ on the right side and 2+ on the left side. Radial pulses are 2+ on the right side. Heart sounds: Normal heart sounds. Pulmonary: Effort: Pulmonary effort is normal. Breath sounds: Normal breath sounds. Musculoskeletal: Right lower leg: No edema. Left lower leg: No edema. Comments: Severe atrophy of left arm and left leg Skin: General: Skin is warm and dry. Neurological: Mental Status: She is alert and oriented to person, place, and time. Mental status is at baseline. ALLERGIES Allergen Reactions Duloxetine Other: See Comments Tramadol Other: See Comments Trazodone Other: See Comments Medications DEXILANT 60 mg CpDM, 60 mg once daily. diclofenac, EC, (VOLTAREN) 50 mg EC tablet, 50 mg twice daily. eszopiclone (LUNESTA) 3 mg tab, daily at bedtime. oxyCODONE-acetaminophen (PERCOCET) 7.5-325 mg tablet, take 1 tablet by mouth every 6 hours if needed for pain for 4 days amitriptyline (ELAVIL) 50 mg tablet, Take 1 tablet by mouth daily at bedtime. atorvastatin (LIPITOR) 20 mg tablet, Take 1 tablet by mouth daily at bedtime. escitalopram oxalate (LEXAPRO) 10 mg tablet, Take 1 tablet by mouth once daily. Fenofibric Acid 45 mg cpDR, Take 1 capsule by mouth once daily. tiZANidine (ZANAFLEX) 4 mg tablet, Take 1.5 tablets by mouth three times daily. hydrOXYzine HCl (ATARAX) 25 mg tablet, Take 1 tablet by mouth four times daily as needed. oxyCODONE-acetaminophen (PERCOCET) 7.5-325 mg tablet, Take 1 tablet by mouth every 6 hours as needed for pain for up to 30 days. [START ON 09/11/2021] oxyCODONE-acetaminophen (PERCOCET) 7.5-325 mg tablet, Take 1 tablet by mouth every 6 hours as needed for pain for up to 30 days. Do not start before September 11, 2021. cyanocobalamin 1,000 mcg/mL, Inject 1 mL intramuscularly once every month. metaxalone (SKELAXIN) 800 mg ORAL tablet, Takes one tab three times daily. Hydrocodone-Acetaminophen 7.5-300 mg ORAL Tab, takes one tab three times a day as needed. amlodipine-benazepril (LOTREL) 2.5-10 mg ORAL per capsule, takes one tab a day. doxycycline 100 mg ORAL tablet, takes two tabs a day. meloxicam (MOBIC) 7.5 mg ORAL tablet, takes 1 tab a day. cyclobenzaprine (FLEXERIL) 5 mg ORAL tablet, takes one tab a hs. zolpidem 10 mg ORAL Tab, takes one tab at hs. PAST MEDICAL HISTORY Diagnosis Date Blindness of left eye Breast mass, right 01/23/2010 GERD (gastroesophageal reflux disease) PMH - PAST MEDICAL HISTORY OF Linear Schleraderma PAST SURGICAL HISTORY Procedure Laterality Date EXC CYST/ABERRANT BREAST TISSUE OPEN 1/> LESION 01/23/2010 PAST SURGICAL HISTORY OF Left arm Skin graft PAST SURGICAL HISTORY OF Surgery right knee, to stop growth PAST SURGICAL HISTORY OF surgery left eye to keep closed at night. REVISE MEDIAN N/CARPAL TUNNEL SURG Social History Tobacco Use Smoking status: Current Every Day Smoker Packs/day: 0.50 Years: 15.00 Pack years: 7.50 Types: Cigarettes Smokeless tobacco: Never Used Substance Use Topics Alcohol use: No Drug use: No FAMILY HISTORY Problem Relation Age of Onset Diabetes Mother adopted No Known Problems Father Breast Cancer Maternal Aunt ASSESSMENT/PLAN: 1. Chronic pain syndrome - ICD9: 338.4, ICD10: G89.4 (primary diagnosis) Review of outside med shows stable on current treatment for some time. Continue unchanged for now. - COMP METABOLIC PANEL - CBC + DIFF - CONSULT TO PAIN MGT - PAIN PANEL, UR QUANT - TOX SCREEN ROUT UR - OXYCODONE-ACETAMINOPHEN 7.5 MG-325 MG TABLET - OXYCODONE-ACETAMINOPHEN 7.5 MG-325 MG TABLET - HYDROXYZINE HCL 25 MG TABLET PDMP website checked and validated. All prescriptions have been APPROPRIATELY filled. No suspiciousactivity was identified. 08/12/2021 by Tea Ruiz APRN.BUYER TOBACCO HEAD 2. Encounter for immunization - ICD9: V03.89, ICD10: Z23 - PFIZER-BIONTECH COVID-19 VACCINE, AGE 12+ YR (MORALES TOP) - PNEUMOCOCCAL VACCINE (PREVNAR 20) 3. Special screening examination for viral disease - ICD9: V73.99, ICD10: Z11.59 - HEP C AB IA W/CONF SCRN 4. Screening for HIV (human immunodeficiency virus) - ICD9: V73.89, ICD10: Z11.4 - HIV 1 2 COMBO(AG/AB),WITH REFLEX TO DIFFERENTIATION 5. Screening for cervical cancer - ICD9: V76.2, ICD10: Z12.4 - Completed pelvic and breast exam - Encouraged monthly BSE - Follow up for annual exam in one year. 6. Encounter for screening mammogram for breast cancer - ICD9: V76.12, ICD10: Z12.31 routine self exam endorsed - CORBIN SCREENING 7. Screening for lipid disorders - ICD9: V77.91, ICD10: Z13.220 - LIPID PANEL BASIC - LIPID PANEL, NONFASTING 8. Screening for diabetes mellitus (DM) - ICD9: V77.1, ICD10: Z13.1 9. Screening for colon cancer - ICD9: V76.51, ICD10: Z12.11 10. History of hyperlipidemia - ICD9: V12.29, ICD10: Z86.39 - LIPID PANEL BASIC - LIPID PANEL, NONFASTING 11. Personal history of scleroderma - ICD9: V13.59, ICD10: Z87.39 - CONSULT TO RHEUM/IMMUN DISEASE - OXYCODONE-ACETAMINOPHEN 7.5 MG-325 MG TABLET - OXYCODONE-ACETAMINOPHEN 7.5 MG-325 MG TABLET - HYDROXYZINE HCL 25 MG TABLET 12. Well woman exam with routine gynecological exam - ICD9: V72.31, ICD10: Z01.419 - CONSULT TO COMPOSITION ROOFER 13. B12 deficiency - ICD9: 266.2, ICD10: E53.8 - VITAMIN B12 BLOOD - CYANOCOBALAMIN (VIT B-12) 1,000 MCG/ML INJECTION SOLUTION 14. Acquired arm deformity, left - ICD9: 736.89, ICD10: M21.922 15. Acquired deformity of left lower leg - ICD9: 736.89, ICD10: M21.962 16. Callus of foot - ICD9: 700, ICD10: L84 - CONSULT TO PODIATRY Will continue all treatments unchanged for now. Requesting outside records. Lab work recommended before her next visit. 3 mo follow up Tea Ruiz APRN.CNS [address] Ernandez to establish care Tea Ruiz APRN.CNS Medical Decision Making: Problems: Moderate: 2+ stable chronic illnesses Data: Unique test(s) ordered: 3+ Risk: Moderate: Drug management Medical Decision Making Level: 4 - Moderate documented in this encounterMercy Health Tiff[facility] Hospital06-24-2022 Miscellaneous Notes* Telephone Encounter - Tea Ruiz APRN.CNS - 08/08/2021 4:23 PM EDT note below, I have never seen her so can not prescribe; note this is covered for now * Telephone Encounter - Jennie Espana RN - 08/08/2021 1:56 PM EDT Patient calls and states that she went to ER this morning and got enough pain medications to hold her over to her appointment next week. Jennie Espana RN * Telephone Encounter - Dionte Segura Ma - 08/08/2021 1:34 PM EDT Left message to call office. 08/08/2021 1:40 PM These will not be filled until patient has been seen in the office. Can advise patient to contact provider who has been prescribing. * Telephone Encounter - Amaya Celis - 08/07/2021 11:25 AM EDT Patient stopped in a urgent care needs refill on pain meds. We do not refill medications here. She sees Tea Ruiz next week. Could she call the patient and maybe do a refill for her. documented in this encounterMercy Health Tiffin HospitalEvaluation + Plan note Future Appointments Appointment Date:01/14/2022 11:30:00 AM Scheduled Provider:WILLARD PERKINS Location:[facility] Appointment Type:PM OV Appointment Date:01/15/2022 11:15:00 AM Scheduled Provider: Location:[facility] Appointment Type:PC Nurse Lab Appointment Date:01/16/2022 01:30:00 PM Scheduled Provider:SOLIS SHELL Location:[facility] Appointment Type:PC Wellness Female Future Scheduled Tests Laboratory* Vitamin B12 Level 12/30/21 * Lipid Profile 12/30/21 * Hepatitis C Antibody IgG 12/30/21 * Complete Metabolic Panel 12/30/21 Radiology* MA Mammo Screening Bilateral w/ Zev 12/30/21 * BD Bone Density DEXA Axial Skeleton 12/30/21 * US Breast Left Complete 12/30/21 [facility] Evaluation + Plan note Future Appointments Appointment Date:01/29/2022 10:30:00 AM Scheduled Provider: Location:[facility] Appointment Type:MA Mammogram Screening Bilateral w/ Zev Appointment Date:01/29/2022 11:00:00 AM Scheduled Provider: Location:[facility] Appointment Type:US Breast Left Complete Appointment Date:02/25/2022 01:15:00 PM Scheduled Provider:WILLARD PERKINS Location:[facility] PM Appointment Type:PM OV Future Scheduled Tests Laboratory* Vitamin B12 Level 12/30/21 * Lipid Profile 12/30/21 * Hepatitis C Antibody IgG 12/30/21 * Complete Metabolic Panel 12/30/21 Radiology* MA Mammo Screening Bilateral w/ Zev 01/29/22 * US Breast Left Complete 01/29/22 [facility] Evaluation + Plan note Future Appointments Appointment Date:02/02/2022 01:30:00 PM Scheduled Provider:SOLIS SHELL Location:[facility] Appointment Type:PC OV Appointment Date:02/25/2022 01:15:00 PM Scheduled Provider:WILLARD PERKINS Location:[facility] PM Appointment Type:PM OV [facility] Evaluation + Plan note Future Appointments Appointment Date:05/25/2022 10:45:00 AM Scheduled Provider:SHRAVAN LUCAS MD Location:[facility] PM Appointment Type:PM OV Appointment Date:06/12/2022 02:00:00 PM Scheduled Provider:SOLIS SHELL Location:[facility] Appointment Type:PC OV Controlled Medication Future Scheduled Tests Laboratory* Hepatic Function Panel 02/02/22 * Thyroid Stimulating Hormone 02/02/22 * PTH, Intact 02/02/22 * Vitamin D Level 02/02/22 [facility] Evaluation + Plan note Future Appointments Appointment Date:05/01/2022 01:00:00 PM Scheduled Provider:SOLIS SHELL Location:[facility] Appointment Type:PC OV Appointment Date:05/25/2022 10:45:00 AM Scheduled Provider:SHRAVAN LUCAS MD Location:[facility] PM Appointment Type:PM OV Appointment Date:06/12/2022 02:00:00 PM Scheduled Provider:SOLIS SHELL Location:[facility] Appointment Type:PC OV Controlled Medication Future Scheduled Tests Laboratory* Hepatic Function Panel 02/02/22 * Thyroid Stimulating Hormone 02/02/22 * PTH, Intact 02/02/22 * Vitamin D Level 02/02/22 [facility] Evaluation + Plan note Future Appointments Appointment Date:05/15/2022 01:00:00 PM Scheduled Provider:SOLIS SHELL Location:[facility] Appointment Type:PC OV Appointment Date:05/25/2022 10:45:00 AM Scheduled Provider:SHRAVAN LUCAS MD Location:[facility] PM Appointment Type:PM OV Appointment Date:06/12/2022 02:00:00 PM Scheduled Provider:SOLIS SHELL Location:[facility] Appointment Type:PC OV Controlled Medication Future Scheduled Tests Laboratory* Hepatic Function Panel 02/02/22 * Thyroid Stimulating Hormone 02/02/22 * Complete Blood Count 05/12/22 * Complete Blood Count 05/19/22 * Complete Blood Count 05/26/22 * PTH, Intact 02/02/22 * Sedimentation Rate Automated 05/12/22 * Sedimentation Rate Automated 05/19/22 * Sedimentation Rate Automated 05/26/22 * Vitamin D Level 02/02/22 * Complete Metabolic Panel 05/12/22 * Complete Metabolic Panel 05/19/22 * Complete Metabolic Panel 05/26/22 [facility] Evaluation + Plan note Future Appointments Appointment Date:06/12/2022 02:00:00 PM Scheduled Provider:SOLIS SHELL Location:[facility] Appointment Type:PC OV Controlled Medication Appointment Date:07/01/2022 09:45:00 AM Scheduled Provider:WILLARD PERKINS Location:[facility] PM Appointment Type:PM OV Future Scheduled Tests Laboratory* Hepatic Function Panel 02/02/22 * Thyroid Stimulating Hormone 02/02/22 * Complete Blood Count 05/12/22 * Complete Blood Count 05/19/22 * Complete Blood Count 05/26/22 * PTH, Intact 02/02/22 * Sedimentation Rate Automated 05/12/22 * Sedimentation Rate Automated 05/19/22 * Sedimentation Rate Automated 05/26/22 * Vitamin D Level 02/02/22 * Complete Metabolic Panel 05/12/22 * Complete Metabolic Panel 05/19/22 * Complete Metabolic Panel 05/26/22 [facility] Evaluation + Plan note Future Appointments Appointment Date:07/29/2022 10:00:00 AM Scheduled Provider:WILLARD PERKINS Location:[facility] PM Appointment Type:PM OV Future Scheduled Tests Laboratory* Hepatic Function Panel 02/02/22 * Thyroid Stimulating Hormone 02/02/22 * Complete Blood Count 05/12/22 * Complete Blood Count 05/19/22 * Complete Blood Count 05/26/22 * PTH, Intact 02/02/22 * Sedimentation Rate Automated 05/12/22 * Sedimentation Rate Automated 05/19/22 * Sedimentation Rate Automated 05/26/22 * Vitamin D Level 02/02/22 * Complete Metabolic Panel 05/12/22 * Complete Metabolic Panel 05/19/22 * Complete Metabolic Panel 05/26/22 [facility] Evaluation + Plan note Future Appointments Appointment Date:08/12/2022 03:30:00 PM Scheduled Provider: Location:[facility] Appointment Type:GI OV Consult Appointment Date:10/19/2022 02:00:00 PM Scheduled Provider:TEA LILLY PA-C Location:[facility] Appointment Type:PC OV Controlled Medication Future Scheduled Tests Laboratory* Hepatic Function Panel 02/02/22 * Thyroid Stimulating Hormone 02/02/22 * Thyroid Stimulating Hormone 10/21/22 * Complete Blood Count 10/21/22 * Complete Blood Count 05/12/22 * Complete Blood Count 05/19/22 * Complete Blood Count 05/26/22 * Lipid Profile 10/21/22 * PTH, Intact 02/02/22 * Sedimentation Rate Automated 05/12/22 * Sedimentation Rate Automated 05/19/22 * Sedimentation Rate Automated 05/26/22 * Vitamin D Level 02/02/22 * Vitamin D Level 10/21/22 * Complete Metabolic Panel 10/21/22 * Complete Metabolic Panel 05/12/22 * Complete Metabolic Panel 05/19/22 * Complete Metabolic Panel 05/26/22 [facility] Evaluation note* Diagnosis Chronic pain syndrome- Primary Encounter for immunization Need for other specified prophylactic vaccination against single bacterial disease Special screening examination for viral disease Special screening examination for unspecified viral disease Screening for HIV (human immunodeficiency virus) Special screening examination for other specified viral diseases Screening for cervical cancer Screening for malignant neoplasm of the cervix Encounter for screening mammogram for breast cancer Screening for lipid disorders Screening for diabetes mellitus (DM) Screening for diabetes mellitus Screening for colon cancer Special screening for malignant neoplasms, colon History of hyperlipidemia Personal history of other endocrine, metabolic, and immunity disorders Personal history of scleroderma Personal history of other musculoskeletal disorders Well woman exam with routine gynecological exam Routine gynecological examination B12 deficiency Other B-complex deficiencies Acquired arm deformity, left Acquired deformity of left lower leg Other acquired deformity of other parts of limb Callus of foot Corns and callosities documented in this encounter [facility] note* Diagnosis Ear infection- Primary Unspecified otitis media documented in this encounter [facility] note* Diagnosis Insomnia, unspecified type- Primary documented in this encounter [facility] note* Diagnosis Chronic pain syndrome Personal history of scleroderma Personal history of other musculoskeletal disorders documented in this encounter [facility] note* Diagnosis Right calf pain- Primary Cellulitis of right lower leg Cellulitis and abscess of leg, except foot Itching Unspecified pruritic disorder Elevated blood pressure reading without diagnosis of hypertension documented in this encounter [facility] note* Diagnosis Equinus contracture of ankle- Primary Pes cavus Talipes cavus Callus of foot Corns and callosities Acquired deformity of left lower leg Other acquired deformity of other parts of limb Chronic pain syndrome Personal history of scleroderma Personal history of other musculoskeletal disorders documented in this encounter [facility] note* Diagnosis Lumbar spondylosis- Primary Lumbosacral spondylosis without myelopathy Thoracic spondylosis without myelopathy senior living (current) use of opiate analgesic documented in this encounter [facility] note* Diagnosis Chronic pain syndrome- Primary Personal history of scleroderma Personal history of other musculoskeletal disorders Acquired arm deformity, left Acquired deformity of left lower leg Other acquired deformity of other parts of limb documented in this encounter [facility] note* Diagnosis Lumbar spondylosis- Primary Lumbosacral spondylosis without myelopathy Low back pain, unspecified back pain laterality, unspecified chronicity, unspecified whether sciatica present Thoracic spondylosis without myelopathy Chronic, continuous use of opioids Opioid type dependence, continuous documented in this encounter [facility] note* Diagnosis Insomnia, unspecified type- Primary 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 Chronic pain syndrome documented in this encounter [facility] note* Diagnosis Insomnia, unspecified type [facility] Diagnosis 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 [facility] Diagnosis Chronic pain syndrome- Primary Irritation of left eye Primary hypertension Unspecified essential hypertension documented in this encounter [facility] note* Diagnosis 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 [facility]* Diagnosis Chronic pain syndrome- Primary Insomnia, unspecified type 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 Primary hypertension Unspecified essential hypertension Colon cancer screening Special screening for malignant neoplasms, colon [facility] Narrative No data available for this section [facility] Discharge instructions No data available for this section [facility] Progress note No data available for this section [facility] Reason for referral (narrative)* Outpatient Procedure (Routine) - Authorized Specialty Diagnoses / Procedures Referred By Cheyenne bowles Referred To [facility] Diagnoses Right calf pain Procedures US LEG VEIN DVT UNL VAS LAB DUP-SCAN XTR VEINS UNILATERAL/LIMITED STUDY Ginny Costa APRN.CNP [address] [place] [address] [facility] [address] [place] [address] Referral ID Status Reason Start Date Expiration Date Visits Requested Visits Authorized [id number] Authorized Auto-Generat ed Referral 10/27/2021 10/27/2022 1 1 [facility] for referral (narrative)* Consultation (Routine) - Pending Review Specialty Diagnoses / Procedures Referred By Cheyenne bowles Referred To Contact Gastroenterology Diagnoses Colon cancer screening Procedures SD OFFICE/OUTPATIENT NEW HIGH MDM 60-74 MINUTES Britta Trinidad APRN - CNP [address] [place] [address] [facility] Gastro [address] [place] [address] Referral ID Status Reason Start Date Expiration Date Visits Requested Visits Authorized [id number] Pending Review Specialty Services Required 3 02/03/2024 1 1 [facility] Reason for Referral Specialty Diagnoses / Procedures Referred By Contac t Referred To Contact Podiatry Diagnoses Callus of foot Procedures CONSULT TO PODIATRY OFFICE/OUTPATIENT [facility] 60-74 MINUTES Tea Ruiz, AUTO CLUTCH SPECIALIST.[employer] [address] [place] [address] Referral ID Status Reason Start Date Expiration Date Visits Requested Visits Authorized [id number] Pending Review PCP Requested Referral 08/12/2021 08/12/2022 1 1 Specialty Diagnoses / Procedures Referred By Contac t Referred To Contact Rheumatology Diagnoses Personal history of scleroderma Procedures CONSULT TO RHEUM/IMMUN DISEASE OFFICE/OUTPATIENT [facility] 60-74 MINUTES Tea Ruiz, AUTO CLUTCH SPECIALIST.BU[employer] [address] [place] [address] Referral ID Status Reason Start Date Expiration Date Visits Requested Visits Authorized [id number] Pending Review PCP Requested Referral 08/12/2021 08/12/2022 1 1 Specialty Diagnoses / Procedures Referred By Contac t Referred To Contact Diagnoses Well woman exam with routine gynecological exam Procedures CONSULT TO COMPOSITION ROOFER OFFICE/OUTPATIENT [facility] 60-74 MINUTES Tea Ruiz, AUTO CLUTCH SPECIALIST.BU[employer] [address] [place] [address] Referral ID Status Reason Start Date Expiration Date Visits Requested Visits Authorized [id number] Pending Review PCP Requested Referral Auto-Generate d Referral 08/12/2021 08/12/2022 1 1 Specialty Diagnoses / Procedures Referred By Contac t Referred To Contact [facility] Diagnoses Chronic pain syndrome Procedures CONSULT TO PAIN MGT OFFICE/OUTPATIENT [facility] 60-74 MINUTES Tea Ruiz, AUTO CLUTCH SPECIALIST.BU[employer] [address] [place] [address] Anesthesia [address] [place] [address] Referral ID Status Reason Start Date Expiration Date V isits Requested Visits Authorized [id number] Closed PCP Requested Referral 08/12/2021 08/12/2022 1 1 Specialty Diagnoses / Procedures Referred By Contac t Referred To Contact [facility] Diagnoses Encounter for screening mammogram for breast cancer Procedures CORBIN SCREENING SCREENING MAMMOGRAPHY BI 2-VIEW BREAST INC CAD Tea Ruiz, AUTO CLUTCH SPECIALIST.BU[employer] [address] [place] [address] [facility] [address] [place] [address] Referral ID Status Reason Start Date Expiration Date Visits Requested Visits Authorized [id number] Pending Review Auto-Generat ed Referral 08/12/2021 09/11/2022 1 1 Specialty Diagnoses / Procedures Referred By Contac t Referred To Contact Pain Management Diagnoses Chronic pain syndrome Personal history of scleroderma Acquired arm deformity, left Acquired deformity of left lower leg Procedures CONSULT TO PAIN MGT Tea Ruiz, AUTO CLUTCH SPECIALIST.BU[employer] [address] [place] [address] Referral ID Status Reason Start Date Expiration Date Visits Requested Visits Authorized [id number] Ref Not Required PCP Requested Referral 11/21/2021 11/21/2022 1 1 Specialty Diagnoses / Procedures Referred By Contac t Referred To Contact Psychology Diagnoses Chronic, continuous use of opioids Procedures CONSULT TO PSYCHOLOGY OFFICE/OUTPATIENT [facility] MDM 60-74 MINUTES Sabrina Tineo MD [facility] [address] [place] [address] Referral ID Status Reason Start Date Expiration Date Visits Requested Visits Authorized [id number] Pending Review PCP Requested Referral 11/18/2022 11/18/2023 1 1 Specialty Diagnoses / Procedures Referred By Contac t Referred To Contact XR IMAGING Diagnoses Thoracic spondylosis without myelopathy Procedures XR THORACIC LIMITED 2V AP/LAT RADEX SPINE THORACIC 2 VIEWS Sabrina Tineo MD [facility] [address] [place] [address] [place] [address] Referral ID Status Reason Start Date Expiration Date Visits Requested Visits Authorized [id number] Pending Review Auto-Generat ed Referral 11/18/2022 12/18/2023 1 1 Specialty Diagnoses / Procedures Referred By Cheyenne bowles Referred To Contact XR IMAGING Diagnoses Lumbar spondylosis Low back pain, unspecified back pain laterality, unspecified chronicity, unspecified whether sciatica present Procedures XR LUMBAR GENERAL 3V AP/LAT/L5-S1 RADEX SPINE LUMBOSACRAL 2/3 VIEWS Sabrina Tineo MD [facility] [address] [place] [address] [place] [address] Referral ID Status Reason Start Date Expiration Date Visits Requested Visits Authorized [id number] Pending Review Auto-Generat ed Referral 11/18/2022 12/18/2023 1 1 Summary Purpose Family History No Family History Records FoundNo Family History Records Found No data available for this section No Family History Records FoundNo Family History Records Found Advance Directives No Advanced Directives Records FoundNo Advanced Directives Records FoundNo Advanced Directives Records FoundNo Advanced Directives Records Found Additional Source Comments Source Comments (unrecognize d section and content) In the event this informatio n is protected by the Federal Confidentiality of Alcohol and Drug Abuse Patient Records regulations: The Federal rules restrict any use of the information to criminally investigate or prosecute any alcohol or drug abuse patient.[facility] the event this information is protected by the Federal Confidentiality of Alcohol and Drug Abuse Patient Records regulations: The Federal rules restrict any use of the information to criminally investigate or prosecute any alcohol or drug abuse patient.[facility] the event this information is protected by the Federal Confidentiality of Alcohol and Drug Abuse Patient Records regulations: The Federal rules restrict any use of the information to criminally investigate or prosecute any alcohol or drug abuse patient.[facility] the event this information is protected by the Federal Confidentiality of Alcohol and Drug Abuse Patient Records regulations: The Federal rules restrict any use of the information to criminally investigate or prosecute any alcohol or drug abuse patient.[facility] Hospital[facility] the event this information is protected by the Federal Confidentiality of Alcohol and Drug Abuse Patient Records regulations: The Federal rules restrict any use of the information to criminally investigate or prosecute any alcohol or drug abuse patient.[facility] Hospital[facility] the event this information is protected by the Federal Confidentiality of Alcohol and Drug Abuse Patient Records regulations: The Federal rules restrict any use of the information to criminally investigate or prosecute any alcohol or drug abuse patient.[facility] Hospital[facility] the event this information is protected by the Federal Confidentiality of Alcohol and Drug Abuse Patient Records regulations: The Federal rules restrict any use of the information to criminally investigate or prosecute any alcohol or drug abuse patient.[facility] Hospital[facility] the event this information is protected by the Federal Confidentiality of Alcohol and Drug Abuse Patient Records regulations: The Federal rules restrict any use of the information to criminally investigate or prosecute any alcohol or drug abuse patient.[facility] Hospital[facility] the event this information is protected by the Federal Confidentiality of Alcohol and Drug Abuse Patient Records regulations: The Federal rules restrict any use of the information to criminally investigate or prosecute any alcohol or drug abuse patient.[facility] Hospital[facility] the event this information is protected by the Federal Confidentiality of Alcohol and Drug Abuse Patient Records regulations: The Federal rules restrict any use of the information to criminally investigate or prosecute any alcohol or drug abuse patient.[facility] HospitalIn the event this information is protected by the Federal Confidentiality of Alcohol and Drug Abuse Patient Records regulations: The Federal rules restrict any use of the information to criminally investigate or prosecute any alcohol or drug abuse patient.[facility] HospitalIn the event this information is protected by the Federal Confidentiality of Alcohol and Drug Abuse Patient Records regulations: The Federal rules restrict any use of the information to criminally investigate or prosecute any alcohol or drug abuse patient.[facility] HospitalIn the event this information is protected by the Federal Confidentiality of Alcohol and Drug Abuse Patient Records regulations: The Federal rules restrict any use of the information to criminally investigate or prosecute any alcohol or drug abuse patient.[facility] HospitalIn the event this information is protected by the Federal Confidentiality of Alcohol and Drug Abuse Patient Records regulations: The Federal rules restrict any use of the information to criminally investigate or prosecute any alcohol or drug abuse patient.[facility] Reason for Visit (unrecogniz ed section and content) Reason Comments Establish Care Specialty Diagnoses / Procedures Referred By Cheyenne t Referred To Contact Internal Medicine / INTERNAL MEDICINE Diagnoses est care, moved from [place], referral for pain management Procedures 4C [place] Self Tea Ruiz, AUTO CLUTCH SPECIALIST.BU[employer] HEAD [address] [place] [address] Referral ID Status Reason Start Date Expiration Date Visits Re quested Visits Authorized [id number] Closed 08/12/2021 02/14/2022 1 1 Reason Comments Appointment Reason Comments Ear Pain Pt reported (LT) ear pain rated6, x1 wk external ear Reason Onset Date Comments Refill Request 09/20/2021 Reason Onset Date Comments Refill Request 10/06/2021 Reason Onset Date Comments Refill Request 09/20/2021 opened in error Reason Comments Trauma Insect Bite R leg x2 days, itchy , burning, and bruised Reason Comments Results Reason Comments New Callous Pain Specialty Diagnoses / Procedures Referred By Cheyenne bowles Referred To Contact Podiatry Diagnoses Callus of foot Procedures CONSULT TO PODIATRY OFFICE/OUTPATIENT NEW HIGH MDM 60-74 MINUTES Tea Ruiz, AUTO CLUTCH SPECIALIST.BU[employer] HEAD [address] [place] [address] [place] [address] Referral ID Status Reason Start Date Expiration Date V isits Requested Visits Authorized [id number] Closed PCP Requested Referral 08/15/2021 02/14/2022 1 1 Reason Comments Follow Up Reason Comments Pain Left shoulder pain x 6 weeks Reason Comments FYI-No Action Needed Reason Comments Consult Reason Comments New Patient Establish Care Reason Onset Date Comments Other 11/26/2022 Pain Ayush. Reason Onset Date Comments Med Refill 12/21/2022 Reason Onset Date Comments Med Refill 01/04/2023 Reason Onset Date Comments Med Refill 01/05/2023 Reason Comments Follow-up Reason Onset Date Comments Medication Problem 01/06/2023 Reason Onset Date Comments Appointment Request 01/14/2023 Reason Comments Follow-up Reason Onset Date Comments Colon Cancer Screening 02/04/2023 Colonoscopy 02/04/2023 Screening [facility] Care Teams (unrecognized sec tion and content) Spinneret Cleaner Relationship Specialty Start Date End Date Toribio Ernandez MD [address] [facility] [place] [address] PCP - General Internal Medicine 08/12/21 Spinneret Cleaner Relationship Specialty Start Date End Date Toribio Ernandez MD [address] [facility] [place] [address] PCP - General Internal Medicine 08/12/21 Spinneret Cleaner Relationship Specialty Start Date End Date Toribio Ernandez MD [address] [facility] [place] [address] PCP - General Internal Medicine 08/12/21 Spinneret Cleaner Relationship Specialty Start Date End Date Toribio Ernandez MD [address] [facility] [place] [address] PCP - General Internal Medicine 08/12/21 Spinneret Cleaner Relationship Specialty Start Date End Date Toribio Ernandez MD [address] [facility] [place] [address] PCP - General Internal Medicine 08/12/21 Spinneret Cleaner Relationship Specialty Start Date End Date Toribio Ernandez MD [address] [facility] [place] [address] PCP - General Internal Medicine 08/12/21 Spinneret Cleaner Relationship Specialty Start Date End Date Toribio Ernandez MD [address] [facility] [place] [address] PCP - General Internal Medicine 08/12/21 Spinneret Cleaner Relationship Specialty Start Date End Date Toribio Ernandez MD [address] [facility] [address] PCP - General Internal Medicine 08/12/21 Spinneret Cleaner Relationship Specialty Start Date End Date Toribio Ernandez MD [address] [facility] [address] PCP - General Internal Medicine 08/12/21 Spinneret Cleaner Relationship Specialty Start Date End Date Toribio Ernandez MD [address] [facility] [place] [address] PCP - General Internal Medicine 08/12/21 Spinneret Cleaner Relationship Specialty Start Date End Date Tea Lilly PA-C [address] [place] [id number] Referring Family Medicine 11/17/22 Spinneret Cleaner Relationship Specialty Start Date End Date Juancho Slaughter MD [address] [place] [address] PCP - General Family Medicine 11/24/22 Spinneret Cleaner Relationship Specialty Start Date End Date Juancho Slaughter MD [address] [place] [id number] PCP - General Family Medicine 11/24/22 Spinneret Cleaner Relationship Specialty Start Date End Date Juancho Slaughter MD [address] [place] [address] PCP - General Family Medicine 11/24/22 Spinneret Cleaner Relationship Specialty Start Date End Date Juancho Slaughter MD [address] [place] [address] PCP - General Family Medicine 11/24/22 Spinneret Cleaner Relationship Specialty Start Date End Date Juancho Slaughter MD [address] [place] [address] PCP - General Family Medicine 11/24/22 Spinneret Cleaner Relationship Specialty Start Date End Date Juancho Slaughter MD [address] [facility] [place] [address] PCP - General Family Medicine 11/24/22 Spinneret Cleaner Relationship Specialty Start Date End Date Juancho Slaughter MD [address] [facility] [place] [address] PCP - General Family Medicine 11/24/22 Spinneret Cleaner Relationship Specialty Start Date End Date Juancho Slaughter MD [address] [place] [address] PCP - General Family Medicine 11/24/22 Spinneret Cleaner Relationship Specialty Start Date End Date Juancho Slaughter MD [address] [facility] [place] [address] PCP - General Family Medicine 11/24/22 Spinneret Cleaner Relationship Specialty Start Date End Date Juancho Slaughter MD [address] [place] [address] PCP - General Family Medicine 11/24/22 INFORMATION SOURCE (unrecogn ized section and content) DATE CREATED AUTHOR AUTHOR'S ORGANIZ ATION 08/11/2022 [facility] ([place]) DATE CREATED AUTHOR AUTHOR'S ORGANIZ ATION 11/22/2022 [facility] DATE CREATED AUTHOR AUTHOR'S ORGANIZ ATION 02/05/2023 [facility] Care Team (unrecognized sect ion and content) Care Team Personnel Name: SOLIS SHELL APRN-GARRISON Position: P4 Advanced Practice Nurse Member Role: Primary Care Physician Address: Address: [address] [place] [address] Care Team Related Persons Name: RADHA FRAGA Care Team Personnel Name: SOLIS SHELL APRN-TAX INTERN Position: P4 Advanced Practice Nurse Member Role: Primary Care Physician Address: Address: [address] [place] [address] Care Team Related Persons Name: RADHA FRAGA Care Team Personnel Name: SOLIS SHELL APRN-GARRISON Position: P4 Advanced Practice Nurse Member Role: Primary Care Physician Address: Address: [address] [place] [address] Care Team Related Persons Name: RADHA FRAGA Care Team Personnel Name: SOLIS SHELL APRN-GARRISON Position: P4 Advanced Practice Nurse Member Role: Primary Care Physician Address: Address: [address] [place] [address] Care Team Related Persons Name: RADHA FRAGA Care Team Personnel Name: SOLIS SHELL APRN-GARRISON Position: P4 Advanced Technology Specialist Member Role: Primary Care Physician Address: Address: [address] [place] [address] Care Team Related Persons Name: RADHA MONCADA FOR RECORDS PERTAINING TO PATIENTS WHO ARE OR HAVE BEEN ENROLLED IN A CHEMICAL DEPENDENCY/SUBSTANCEABUSE PROGRAM, SOME INFORMATION MAY BE OMITTED. This clinical summary was aggregated from multiple sources. Caution should be exercised in using it in the provision of clinical care. This summary normalizes information from multiple sources, and as a consequence, information in this document may materially change the coding, format and clinical context of patient data. In addition, data may be omitted in some cases. CLINICAL DECISIONS SHOULD BE BASED ON THE PRIMARY CLINICAL RECORDS. [facility]. provides no warranty or guarantee of the accuracy or completeness of information in this document.
== END 2023-02-15 15:28 | disposition home or self-care (01) ==
PROVIDERS: Emergency Provider Emergency Medicine; Visit Provider Emergency Medicine
DX: U07.1 COVID-19 (principal); F41.8 Other specified anxiety disorders; E78.00 Pure hypercholesterolemia, unspecified; Z79.899 Other long term (current) drug therapy; K21.9 Gastro-esophageal reflux disease without esophagitis; G47.00 Insomnia, unspecified; F17.210 Nicotine dependence, cigarettes, uncomplicated
CPT/HCPCS: 87428; 99282

== ENCOUNTER 2024-01-22 10:20 | Emergency (ER) | payer MEDICARE, MEDICAID, SELFPAY ==
[2024-01-22 10:21] VITALS: BP 167/78; PULSE 91; RESP 18; TEMP 36.9; O2SAT 98; BMI 31.6
--- NOTE | 2024-01-22 10:37 | EDS_ITS ---
HPI History of Present Illness Chief Complaint: Abscess Informant: patient Narrative Narrative: 53-year-old female with a history of scleroderma and MRSA presenting to the emergency room out of concern for abscess of the left axilla. Patient noted yesterday and today she has developed a tender red spot. She denies any fevers. She notes that she is chronically on pain medicine already. [facility] Medical History Left rotator cuff tear arthropathy Vitamin D deficiency Soft tissue mass Right hip pain Osteoporosis Muscle spasms of both lower extremities Insomnia Golfers elbow of right upper extremity Depression with anxiety Carpal tunnel syndrome Blindness of left eye B12 deficiency Acid reflux High cholesterol Scleroderma History of chronic pain Home Medications ?Medication ?Instructions ?Recorded ?Last Taken ?Type amitriptyline 50 mg tablet 50 mg PO QHS 12/10/21 Unknown History atorvastatin 20 mg tablet 20 mg PO QHS 12/10/21 Unknown History dexlansoprazole 60 mg 60 mg PO DAILY 12/10/21 Unknown History capsule,biphase delayed release eszopiclone 3 mg tablet 3 mg PO QHS 12/10/21 Unknown History cetirizine 10 mg capsule (Zyrtec) 10 mg PO DAILY PRN PRN allergies 03/04/22 Unknown History cholecalciferol (vitamin D3) 1,250 1,250 mcg PO QWEEK 03/04/22 Unknown History mcg (50,000 unit) capsule fenofibric acid (choline) 45 mg 45 mg PO DAILY 03/04/22 Unknown History capsule,delayed release oxycodone-acetaminophen 5 mg-325 1 tab PO TID PRN 05/12/23 Unknown History mg tablet Allergy/AdvReac Type Severity Reaction Status Date / Time duloxetine (From Cymbalta) Allergy Chest Verified 12/07/23 15:49 tightness trazodone Allergy Chest Verified 12/07/23 15:49 tightness tramadol AdvReac Other Verified 12/07/23 15:49 Family History Aunt Cancer lung Mother Diabetes Surgical History History of carpal tunnel surgery H/O eye surgery Hx of right knee surgery Social History household members: other details: step dad Smoking Status: Current every day smoker tobacco type: cigarettes alcohol intake: never substance use type: does not use what type of physical activity do you participate in: other details: stretches frequency: daily ROS ROS ED Constitutional Constitutional ED: Denies chills, fever(s) or weight loss Eyes Eyes: Denies change in vision or diplopia ENT ENT ED: Denies ear pain, rhinorrhea or sore throat Cardiovascular Cardiovascular: Denies chest pain, orthopnea, palpitations or racing heartbeat Respiratory/Chest Respiratory/Chest: Denies cough, dyspnea or orthopnea Gastrointestinal Gastrointestinal: Denies abdominal pain, diarrhea, nausea or vomiting Genitourinary Genitourinary ED: Denies dysuria, hematuria or urinary frequency Musculoskeletal Musculoskeletal: Denies arthralgias or myalgias Integumentary Reports rash; Denies abscess Neurologic Neurologic: Denies headache(s) or weakness Psychiatric Psychiatric: Denies anxiety, depression, suicidal ideation or suicidal thoughts Endocrine Endocrinology: Denies polydipsia, polyphagia or polyuria Allergic/Immunologic Allergic/Immunologic ED: Denies mouth swelling, tongue swelling or urticaria EXAM Physical Exam Const Vital Signs: 01/22/24 10:21 Temperature 98.4 F Temperature Source Oral Pulse Rate 91 Respiratory Rate 18 Blood Pressure 167/78 H Blood Pressure Mean 107 Pulse Ox 98 Oxygen Delivery Method Room Air Positive well nourished and well developed General Appearance ED: well developed and NAD HEENT Reports normocephalic, head/scalp atraumatic and moist mucous membranes Eyes PERRL and EOMs intact bilaterally Neck no lymphadenopathy, supple and no JVD Resp normal respiratory effort and clear to auscultation bilaterally Cardio regular rate, regular rhythm and no murmurs GI normal to inspection, nondistended, normoactive bowel sounds and non-tender Palpation: soft Back/Spine no CVA tenderness and normal ROM Extremity Extremity Narrative: Left axilla demonstrates a 2 cm area of erythema. There is a small area of induration in the center of it. I do not appreciate fluctuance. Left arm demonstrates chronic changes. General Extremety ED: Negative for edema General Extremity: Negative for edema Neuro oriented x3 and CN's II-XII intact bilaterally Sensorium / Orientation: alert Motor Exam: strength 5/5 throughout Psych mental status grossly normal Mood & Affect: Negative for depressed or tearful Skin no rashes or lesions noted and no wounds MDM MDM MDM Narrative Medical decision making narrative: Differential diagnosis includes but not limited to cellulitis axillary cutaneous abscess malignancy infected hair follicle developing abscess Using bedside ultrasound I looked at the subcutaneous tissue. I do not see an organized abscess that is amendable to drainage at this time. I discussed this with her and I am recommending antibiotics. Were going to write for both Keflex and Bactrim. She was advised that over the next few days this may organize into a drainable abscess but at this point based on what I am seeing on the ultrasound I do not see a drainable fluid collection. Patient is comfortable with this plan return if worsening or concerns History & Record Review Discussion w/independent historian: Patient Discharge Plan Triage Chief Complaint: Abscess ED Provider: Song Hampton Dx/Rx/DC Orders Prescriptions: No Action dexlansoprazole 60 mg capsule,biphase delayed releas 60 mg PO DAILY Patient Comments: TAKE 1 CAPSULE BY MOUTH ONCE DAILY amitriptyline 50 mg tablet 50 mg PO QHS eszopiclone 3 mg tablet 3 mg PO QHS Patient Comments: TAKE 1 TABLET BY MOUTH ONCE DAILY AT BEDTIME atorvastatin 20 mg tablet 20 mg PO QHS Patient Comments: TAKE 1 TABLET BY MOUTH AT BEDTIME cholecalciferol (vitamin D3) 1,250 mcg (50,000 unit) capsule 1,250 mcg PO QWEEK fenofibric acid (choline) 45 mg capsule,delayed release(DR/EC) 45 mg PO DAILY Zyrtec 10 mg capsule 10 mg PO DAILY PRN PRN (Reason: allergies) oxycodone-acetaminophen 5-325 mg tablet 1 tab PO TID PRN Primary Care Provider: Jeri Yates Referrals: Jeri Yates [Primary Care Provider] - Print Language: Montenegrin
== END 2024-01-22 10:46 | disposition home or self-care (01) ==
PROVIDERS: Emergency Provider Emergency Medicine; Visit Provider Emergency Medicine
DX: L02.412 Cutaneous abscess of left axilla (principal); E78.00 Pure hypercholesterolemia, unspecified; F17.210 Nicotine dependence, cigarettes, uncomplicated; F41.8 Other specified anxiety disorders; Z79.899 Other long term (current) drug therapy; K21.9 Gastro-esophageal reflux disease without esophagitis
CPT/HCPCS: 99282

== ENCOUNTER → 2024-10-07 | Outpatient (CLI) | payer MEDICARE, SELFPAY ==
--- OUTSIDE RECORDS SUMMARY | 2024-10-07 07:37 | XMS RPT_ITS | CCD ---
Author Organization [facility] Care Team Providers Care Spot Billing Clerk Name Role Phone Bossman DASH, Galdino Carballo Primary Care Provider Toribio Ernandez MD Primary Care Provider Toribio Ernandez MD Primary Care Provider TORIBIO ERNANDEZ Referring Unavailable SILVANA JOE Attending Unavailable TORIBIO ERNANDEZ Primary Care Unavailable MARCELLUS ROSADO Attending Unavailable SILVANA JOE Referring Unavailable TORIBIO ERNANDEZ Primary Care Unavailable Joseph SPOILAGE WORKER, SPOILAGE WORKER-C Tea Primary Care Provider Joseph SPOILAGE WORKER, SPOILAGE WORKER-C Tea Referring Provider MARY Pan Attending Provider Dr. Sanjeev Jose Attending Provider SUMAYA MURPHY-SOLIS JI Primary Care Physician Joseph SPOILAGE WORKER, SPOILAGE WORKER-C Tea Primary Care Provider Joseph SPOILAGE WORKER, SPOILAGE WORKER-C Tea Referring Provider MARY Pan Attending Provider Dr. Sanjeev Jose Attending Provider Dr. Rayo Merino Attending Provider Sumaya LINDSEY, SPOILAGE WORKER-C [facility] Referring Provider [phone] Sumaya SPOILAGE WORKER, SPOILAGE WORKER-C [facility] Primary Care Provider Joseph SPOILAGE WORKER, SPOILAGE WORKER-C Tea Primary Care Provider Joseph SPOILAGE WORKER, SPOILAGE WORKER-C Tea Referring Provider Lust PA, PA Casi Attending Provider [phone] Dr. Sanjeev Jose Attending Provider Dr. Rayo Merino Attending Provider ffeselvin SPOILAGE WORKER, SPOILAGE WORKER-C [facility] Referring Provider [phone] Sumaya SPOILAGE WORKER, SPOILAGE WORKER-C [facility] Primary Care Provider Dr. Rayo Cantu Attending Provider [phone] Joseph SPOILAGE WORKER, SPOILAGE WORKER-C Tea Primary Care Provider Genna PA PA Casi Attending Provider [phone] VACCARELLI PA-C, TEA Primary Care Physician Sumaya SPOILAGE WORKER, SPOILAGE WORKER-C [facility] Primary Care Provider Sumaya SPOILAGE WORKER, SPOILAGE WORKER-C [facility] Referring Provider [phone] Dr. Rayo Cantu Attending Provider [phone] Dr. Sanjeev Jose Attending Provider [phone] Vaccarelli PA-C, Tea L Unavailable [phone] SABRINA TINEO Attending Unavailable Juancho Goodman MD Primary Care Provider Dr. Rayo Cantu Attending Provider [phone] Dr. Sanjeev Jose Attending Provider [phone] PHYSICIAN, NONE Primary Care Physician Unavailab le BRIDENTHAL CURTAIN FRAMER/EMPLOYEE HEALTH NURSE, BRITTA Attending Evelia vailable PHYSICIAN, NONE Primary Care Unavailable BRIDENTHAL CURTAIN FRAMER/EMPLOYEE HEALTH NURSE, BRITTA Attending Evelia vailable PHYSICIAN, NONE Primary Care Unavailable NATASHA BRIONES MD Attending Unavailable PHYSICIAN, NONE Primary Care Unavailable THANIA CLINTON DO Attending Unavailable PHYSICIAN, NONE Primary Care Unavailable PHYSICIAN, NONE Primary Care Unavailable SHANE DASH, DR BRANDI Miranda Attending Unavaila ble Bridenthal CURTAIN FRAMER - EMPLOYEE HEALTH NURSE, Britta Unavailable Bridenthal, Britta Primary Care Provider Bridenthal, Britta Referring Provider Shady Burks MD Attending Provider Bridenthal, Britta Referring Unavailable Shady Burks Attending Unavailable Bridenthal, Britta Primary Care Unavailable Bridenthal, Britta Primary Care Unavailable Shady Burks Attending Unavailable Shady Burks Referring Unavailable Bridenthal, Britta Primary Care Unavailable Song Hampton Attending Unavailable Bridenthal, Britta Referring Unavailable Rayo Cantu Attending Unavailable Bridenthal, Britta Primary Care Unavailable Bridenthal, Britta Referring Unavailable Shady Burks Attending Unavailable Bridenthal, Britta Primary Care Unavailable Bridenthal, Britta Referring Unavailable Bridenthal, Britta Primary Care Unavailable Mollison, Shday Attending Unavailable Bridenthal CURTAIN FRAMER - EMPLOYEE HEALTH NURSE, Britta Unavailable BRIDENTHAL, BRITTA Attending Unavailable KASANDRA, JUANCHO Primary Care Unavailable BRIDENTHAL, BRITTA Attending Unavailable KASANDRA, JUANCHO Primary Care Unavailable BRIDENTHAL, BRITTA Attending Unavailable KASANDRA, JUANCHO Primary Care Unavailable BRIDENTHAL, BRITTA Attending Unavailable KASANDRA, JUANCHO Primary Care Unavailable BRIDENTHAL, BRITTA Attending Unavailable KASANDRA, JUANCHO Primary Care Unavailable BRIDENTHAL, BRITTA Attending Unavailable KASANDRA, JUANCHO Primary Care Unavailable ESTEFANÍA VERA Attending Unavailable KASANDRA, JUANCHO Primary Care Unavailable Allergies Allergy Classification Reported Allergen(s) Allergy Type Date of Onset Reaction(s) Facility DULoxetine (2 sources) DULoxetine Drug Allergy 2 Other [facility] Opioid Agonists (2 sources) traMADol Drug Allergy 2 Other, Unknown [facility] Serotonin Reuptake Inhibitors (SSRIs) (2 sources) traZODone Drug Allergy 2 [facility] (20 sources) DULoxetine; Translations: [DULOXETINE] Drug Allergy 2 Other: See Comments, Other [facility] Work Phone: (20 sources) traMADol; Translations: [TRAMADOL] Drug Allergy 2 Other: See Comments, Other, Unknown [facility] Work Phone: (20 sources) traZODone; Translations: [TRAZODONE] Drug Allergy 2 Other: See Comments [facility] Work Phone: (1 source) Acetaminophen / oxyCODONE Drug Allergy 0 GI Upset [facility] (20 sources) DULoxetine Drug Allergy 4 Unknown [facility] (20 sources) Pregabalin Propensity to adverse reactions 4 [facility] (1 source) DULoxetine Drug Allergy 5 [facility] (1 source) traMADol Drug Allergy 5 [facility] (1 source) traZODone Drug Allergy 5 [facility] Medications Current Medications Medication Drug Class(es) Dates Sig (Normalized) Sig (Original) acetaminophen 325 mg / oxyCODONE hydrochloride 5 mg oral tablet (20 sources) Opioid Agonist Start: 05-12-2023 Oxycodone-Acetamin ophen 5-325 mg tablet Active 1 {tbl} PO THREE TIMES A DAY as needed 0 May 12, 2023 12:00am Start: 12-07-2022 End: 11-05-2024 take 1 tablet by mouth every eight hours as needed for pain oxyCODONE-acetaminophen (Percocet) 5-325 MG tablet Indications: Chronic pain syndrome Take 1 tablet by mouth every 8 hours as needed for severe pain (7-10). 90 tablet 10/06/2024 11/05/2024 Active Start: 11-24-2022 End: 12-01-2022 take 1 tablet by mouth every eight hours as needed for pain oxyCODONE-acetaminophen (Percocet) 5-325 MG tablet Indications: Linear scleroderma , Chronic midline thoracic back pain Take 1 tablet by mouth every 8 hours as needed for severe pain (7-10) for up to 7 days. 21 tablet 0 11/24/2022 12/01/2022 Active Start: 08-24-2022 End: 09-03-2022 Oxycodone-Acetaminophen (Per cocet) 7.5-325 mg tablet Discontinued 1 {tbl} PO TWICE A DAY as needed for pain 20 10 0 August 24, 2022 September 02, 2022 12:00am September 03, 2022 12:04am Degeneration of intervertebral disc of lumbar region Bursitis of right hip Pain of lower extremity Other intervertebral disc degeneration, lumbar region Trochanteric bursitis, right hip Pain in leg, unspecified Start: 08-05-2022 End: 09-04-2022 Percocet 7.5 mg-325 mg oral tablet Dose = 1 tab(s), Oral, AsDirected, PRN as needed for pain, 2/day for one week then 1/day for 2 weeks then d/c., # 28 tab(s), 0 Refill(s), Pharmacy: [id number], Degenerative joint disease (DJD) of lumbar spine Left lumbosacral radiculopathy, 137, cm, 08/05/22 11:58:00 EDT, Height, 44.5, kg, 08/05/22 11:58:00 EDT, Dosing Weight Start Date: 08/05/22 Stop Date: 09/04/22 Status: Ordered Start: 11-21-2021 End: 05-08-2022 Oxycodone-Acetaminophen (Per cocet) 7.5-325 mg tablet Discontinued 1 {tbl} PO Q8H as needed for pain 12 3 0 November 21, 2021 May 08, 2022 10:05am Chronic pain Other chronic pain Start: 08-08-2021 End: 05-12-2023 Oxycodone-Acetaminophen 7.5- 325 mg tablet Discontinued 1 {tbl} PO EVERY 6 HOURS as needed for pain 28 7 0 November 10, 2021 November 16, 2021 12:00am November 13, 2021 1:24pm Closed fracture of left clavicle Start: 08-08-2021 End: 11-16-2021 take 1 tablet by mouth every six hours Oxycodone-Acetaminophen Discontinued 1 TABLET PO EVERY 6 HOURS 28 7 November 10, 2021 November 13, 2021 12:24pm Start: 08-08-2021 take 1 tablet by maura th every six hours Oxycodone-Acetaminophen Active 1 TABLET PO EVERY 6 HOURS 16 4 August 08, 2021 Comment on above: Take 1 tablet by maura th every 6 hours as needed for pain for up to 30 days. Take 1 tablet by maura th every 6 hours as needed for pain for up to 30 days. Do not start before September 11, 2021. take 1 tablet by maura th every 6 hours if needed for pain for 4 days Take 1 tablet by maura th every 6 hours as needed for pain for up to 30 days. Do not start before October 11, 2021. amLODIPine 5 mg oral tablet (20 sources) Dihydropyridine Calcium Channel Mckay Start: 07-21-2022 End: 01-17-2023 amLODIPine (Norvasc) 5 MG tablet 2.5 mg. 0 07/21/2022 Active Start: 07-21-2022 End: 11-24-2024 take 1 tablet by mouth once daily amLODIPine (Norvasc) 5 MG tablet Indications: Primary hypertension TAKE 1 TABLET BY MOUTH EVERY DAY 90 tablet 1 08/02/2024 Active Start: 05-07-2022 End: 06-06-2022 amLODIPine 5 mg oral tablet Dose : 5 mg = 1 tab(s), Oral, qDay, # 30 tab(s), 0 Refill(s), Pharmacy: [id number], 137.2, cm, 05/02/22 3:41:00 EDT, Height Start Date: 05/07/22 Stop Date: 06/06/22 Status: Ordered amLODIPine 2.5 mg / benazepril hydrochloride 10 mg oral capsule (11 sources) Dihydropyridine Calcium Channel Mckay, Angiotensin Converting Enzyme Inhibitor End: 11-06-2021 amLODIPine-benazepril (LOTREL) 2.5-10 mg per capsule Take by mouth. 0 11/06/2021 Discontinued take 1 tablet by mouth once david y amlodipine-benazepril (LOTREL) 2.5-10 mg ORAL per capsule takes one tab a day. 0 Active Comment on above: takes one tab a day. Take by mouth. 24 hr buPROPion hydrochloride 150 mg extended release oral tablet (20 sources) Aminoketone Start: End: take 1 tablet by mouth every hour, then take 1 tablet by mouth every twenty-four hours buPROPion 150 mg/24 hours (XL) oral tablet, extended release Dose : 150 mg = 1 tab(s), Oral, q24h, # 90 tab(s), 1 Refill(s), [id number], 137, cm, 06/29/22 12:16:00 EDT, Height Start Date: 07/21/22 Stop Date: 01/17/23 Status: Ordered Start: 07-21-2022 End: 12-09-2023 take 1 tablet by mouth once daily buPROPion XL (Wellbutrin XL) 150 MG 24 hr tablet Take 150 mg by mouth daily. 07/21/2022 12/09/2023 Discontinued (Ineffective) Start: 12-09-2021 End: 02-07-2022 Bupropion Hcl Active TAB PO December 09, 2021 11:00pm cholecalciferol 1.25 mg oral capsule (20 sources) Vitamin D Start: 03-04-2022 End: 11-24-2022 take 1 capsule by mouth every week Cholecalciferol (Vitamin D3) 1,250 mcg (50,000 unit) capsule Active 1250 ug PO EVERY WEEK March 04, 2022 1:00am Start: 02-02-2022 End: 01-28-2023 cholecalciferol 1250 mcg (50 ,000 intl units) oral capsule Dose : 1,250 mcg = 1 cap(s), Oral, qWeek, # 13 cap(s), 3 Refill(s), Pharmacy: [id number], 138, cm, 02/02/22 13:31:00 EST, Height Start Date: 02/02/22 Stop Date: 01/28/23 Status: Ordered clindamycin 0.01 mg/mg topical gel (15 sources) Lincosamide Antibacterial Start: 05-31-2024 End: 05-31-2025 clindamycin (Cleocin T) 1 % gel (Twice-Daily) Indications: Hidradenitis Apply to affected area daily 60 g 11 05/31/2024 05/31/2025 Active dexlansoprazole 60 mg delayed release oral capsule (20 sources) Proton Pump Inhibitor Start: 12-10-2021 Dexlanso prazole Active EACH PO December 09, 2021 11:00pm Start: 05-19-2021 End: 05-15-2024 take 1 capsule by mouth once daily dexlansoprazole (Dexilant) [address] capsule Indications: Gastroesophageal reflux disease without esophagitis Take 1 capsule (60 mg) by mouth daily. 90 capsule 1 05/15/2024 Active Comment on above: 60 mg once daily. Dexlansoprazole 60 mg capsule,biphase delayed releas (1 source) Start: take 1 capsule by mouth once daily Dexlansoprazole 60 mg capsule,biphase delayed releas Active 60 mg PO DAILY December 10, 2021 12:00am diclofenac sodium 50 mg delayed release oral tablet (10 sources) Nonsteroidal Anti-inflammatory Drug Start: End: diclofenac, EC, (VOLTAREN) 50 mg EC tablet 50 mg twice daily. 0 06/03/2021 11/06/2021 Discontinued Comment on above: 50 mg twice daily. DME MISCellaneous (10 sources) Start: take 730 [IU] rectal route every month for pain DME MISCellaneous See Instructions, SAMAHER TENS UNIT E 0730 reducing chronic intractable pain, or lead for multiple pain sites. Certificate of medical necessity, the above identified equipment is deemed medically necessary for an estimated period of time 1 month rental with option to purchase., # 1 EA, 0 Refill(s), Osteoarthritis of right hip, 44.5 Start Date: 02/25/22 Status: Ordered Start: 02-25-2022 DME MISCellane ous See Instructions, [facility]AHER TENS UNIT E 0730 reducing chronic intractable pain, or lead for multiple pain sites. Certificate of medical necessity, the above identified equipment is deemed medically necessary for an estimated period of time 1 month rent... Start Date: 02/25/22 Status: Ordered ertapenem 1000 mg injection (2 sources) Penem Antibacterial Start: 05-07-2022 End: 05-22-2022 take 1 dose intravenously once daily Invanz 1 g (Disch Rx) Dose : 1 gram(s) =, IV Piggyback, qDay, # 14 EA, 0 Refill(s), 05/22/22 14:00:00 EDT, other reason (Rx), 44.8 Start Date: 05/07/22 Stop Date: 05/22/22 Status: Ordered eszopiclone 3 mg oral tablet (20 sources) Start: 01-07-2024 End: 11-03-2024 take 1 tablet by mouth once daily as needed for sleep eszopiclone (Lunesta) 3 MG tablet Indications: Insomnia, unspecified type Take 1 tablet (3 mg) by mouth Nightly as needed for sleep. Take immediately before bedtime 30 tablet 10/04/2024 11/03/2024 Active Start: 11-27-2023 End: 12-27-2023 take 1 tablet by mouth once daily as needed for sleep eszopiclone (Lunesta) 3 MG tablet Indications: Insomnia, unspecified type Take 1 tablet (3 mg) by mouth Nightly as needed for sleep. Take immediately before bedtime 30 tablet 11/27/2023 12/27/2023 Active Start: 11-21-2023 End: 11-27-2023 eszopiclone (Lunesta) 2 MG t ablet Indications: Primary insomnia Every other night, alternate with Lunesta 3 mg Do not start before November 21, 2023. 15 tablet 11/21/2023 11/27/2023 Discontinued Start: 11-21-2023 eszopiclone (L unesta) 2 MG tablet Indications: Primary insomnia Every other night, alternate with Lunesta 3 mg Do not start before November 21, 2023. 15 tablet 11/21/2023 Active Start: 11-21-2023 End: 11-03-2023 eszopiclone (Lunesta) 3 MG t ablet Indications: Insomnia, unspecified type Take 1 tablet (3 mg) by mouth Nightly as needed for sleep. Take immediately before bedtime Do not start before November 21, 2023. 30 tablet 11/21/2023 11/03/2023 Discontinued (Therapy completed) Start: 11-21-2023 End: 11-03-2023 eszopiclone (Lunesta) 3 MG t ablet Indications: Insomnia, unspecified type Take 1 tablet (3 mg) by mouth Nightly as needed for sleep. Take immediately before bedtime Do not start before November 21, 2023. 30 tablet 11/21/2023 11/03/2023 Discontinued (Therapy completed) Start: 11-21-2023 End: 11-27-2023 eszopiclone (Lunesta) 3 MG t ablet Indications: Primary insomnia Every other night, alternate with Lunesta 2 mg. Do not start before November 21, 2023. 15 tablet 11/21/2023 11/27/2023 Discontinued Start: 11-21-2023 End: 11-03-2023 eszopiclone (Lunesta) 3 MG t ablet Indications: Insomnia, unspecified type Take 1 tablet (3 mg) by mouth Nightly as needed for sleep. Take immediately before bedtime Do not start before November 21, 2023. 30 tablet 11/21/2023 11/03/2023 Discontinued (Therapy completed) Start: 11-21-2023 eszopiclone (L unesta) 3 MG tablet Indications: Primary insomnia Every other night, alternate with Lunesta 2 mg. Do not start before November 21, 2023. 15 tablet 11/21/2023 Active Start: 06-29-2018 End: 12-21-2023 take 1 tablet by mouth at bedtime Eszopiclone 3 mg tablet Active 3 mg PO AT BEDTIME December 10, 2021 12:00am Comment on above: daily at bedtime. Take 1 tablet by maurathe [facility] daily at bedtime for 180 days. 24 hr etodolac 400 mg extended release oral tablet (8 sources) Nonsteroidal Anti-inflammatory Drug Start: 11-21-2021 End: 11-24-2022 etodolac 400 mg oral tablet, extended release Dose : 400 mg = 1 tab(s), Oral, qDay, # 30 tab(s), 0 Refill(s) Start Date: 12/17/21 Status: Ordered Start: 11-21-2021 take 1 tablet by maura once daily for pain etodolac (LODINE-XL) 400 mg 24 hr tablet Indications: Chronic pain syndrome , Personal history of scleroderma , Acquired arm deformity, left , Acquired deformity of left lower leg Take 1 tablet by mouth once daily. For pain. Take with food 30 tablet 0 11/21/2021 Active Comment on above: Take 1 tablet by maura once daily. For pain. Take with food fenofibric acid 45 mg delayed release oral capsule (20 sources) Peroxisome Proliferator Receptor alpha Agonist Start: 08-13-19 End: 11-25-19 choline fenofibrate (Trilipix) [address] capsule Take by mouth. 11/24/2021 Active Comment on above: Take 1 capsule by mo [facility] once daily. Take 45 mg by mouth once daily. lactobacillus acidophilus 0.2 mg / lactobacillus bulgaricus 0.2 mg oral tablet (2 sources) Start: 05-08-19 End: 05-18-19 take 1 tablet by mouth three times daily lactobacillus acidophilus and bulgaricus oral tablet Dose = 1 tab(s), Oral, TID, X 10 day(s), # 30 tab(s), 0 Refill(s), Pharmacy: [id number], 137.2, cm, 05/02/22 3:41:00 EDT, Height Start Date: 05/07/22 Stop Date: 05/17/22 Status: Ordered Misc Medication (4 sources) Start: 12-18-19 Misc Medication patient uses CBD vape pen- unsure about THC component, 0 Refill(s), 46.3 Start Date: 12/17/21 Status: Ordered mupirocin 0.02 mg/mg topical ointment (4 sources) RNA Synthetase Inhibitor Antibacterial Start: 04-29-19 End: 05-09-19 mupirocin 2% topical ointment Apply 1 arash, Topical, TID, apply a thin film to left arm, X 10 day(s), # 22 gram(s), 0 Refill(s), Pharmacy: [id number], Ointment, 137, cm, 04/27/22 15:04:00 EDT, Height, 44 Start Date: 04/28/22 Stop Date: 05/08/22 Status: Ordered Start: 12-30-2021 End: 01-04-2022 mupirocin 2% topical ointmen t Apply 1 arash, Topical, TID, X 5 day(s), # 22 gram(s), 0 Refill(s), Pharmacy: [id number], Ointment, 138, cm, 12/17/21 12:12:00 EDT, Height, 45.7, kg, 12/30/21 13:55:00 EST, Dosing Weight Start Date: 12/30/21 Stop Date: 01/04/22 Status: Ordered Start: 09-16-2021 End: 09-21-2021 mupirocin (BACTROBAN) 2 % oi ntment Apply to affected area three times daily for 5 days. 30 g 0 09/16/2021 09/21/2021 Active Comment on above: Apply to affected ar ea three times daily for 5 days. naloxone hydrochloride 40 mg/ml nasal spray (20 sources) Opioid Antagonist Start: 03-04-2023 naloxone (Narcan) 4 mg/0.1 mL nasal spray ADMINISTER A SINGLE spray INTO ONE NOSTRIL repeat in 3 MINUTES IF... (REFER TO PRESCRIPTION NOTES). 03/04/2023 Active Start: 03-04-2023 End: 03-04-2023 naloxone (Narcan) 4 mg/0.1 m L nasal spray Indications: Chronic midline thoracic back pain Administer 1 spray (4 mg) into affected nostril(s) Once for 1 dose. May repeat every 2-3 minutes if needed, alternating nostrils, until medical assistance becomes available. 1 each 03/04/2023 03/04/2023 nystatin 100 unt/mg topical powder (20 sources) Polyene Antifungal Start: 01-11-2024 End: 01-10-2025 nystatin (Mycostatin) 539906 UNIT/GM powder Indications: Yeast dermatitis Apply topically 3 times daily. 60 g 1 01/11/2024 01/10/2025 Active ondansetron 4 mg oral tablet (3 sources) Serotonin-3 Receptor Antagonist Start: 08-11-2022 take 1 tablet by mouth every eight hours as needed for nausea Zofran ODT use ondansetron oral tablet, disintegrating Dose : 4 mg =, Oral, q8h, PRN as needed for nausea/vomiting, # 30 tab(s), 1 Refill(s) Start Date: 08/11/22 Status: Ordered Start: 08-11-2022 End: 11-24-2022 ondansetron ODT (Zofran-ODT) 4 MG disintegrating tablet dissolve 1 tablet ON TONGUE every 8 hours if needed for nausea and vomiting 0 08/11/2022 11/24/2022 Discontinued (Therapy completed) predniSONE 20 mg oral tablet (6 sources) Start: 08-30-2024 End: 09-08-2024 predniSONE (Deltasone) 20 MG tablet Indications: Chronic right-sided low back pain without sciatica Take 3 tabs (60mg) daily for 3 days, then take 2 tabs (40mg) daily for 3 days, then take 1 tab (20mg) daily for 3 days. 18 tablet 08/30/2024 09/08/2024 Active Start: 04-29-2023 End: 05-08-2023 predniSONE (Deltasone) 20 MG tablet Indications: Acute right-sided low back pain without sciatica Take 3 tabs (60mg) daily for 3 days, then take 2 tabs (40mg) daily for 3 days, then take 1 tab (20mg) daily for 3 days. 18 tablet 0 04/29/2023 05/08/2023 Active sulfamethoxazole 800 mg / trimethoprim 160 mg oral tablet (1 source) Dihydrofolate Reductase Inhibitor Antibacterial, Sulfonamide Antimicrobial Start: 01-22-2024 Sulfamethoxazole-Trimethopri m 800-160 mg tablet Active 1 {tbl} PO TWICE A DAY 14 January 22, 2024 1:00am tiZANidine 4 mg oral tablet (20 sources) Central alpha-2 Adrenergic Agonist Start: 03-14-2024 End: 09-07-2024 take 1 tablet by mouth at bedtime as needed for muscle spasms tiZANidine (Zanaflex) 4 MG tablet Indications: Chronic right-sided low back pain without sciatica TAKE 1 TABLET BY MOUTH AT BEDTIME NEEDED FOR MUSCLE SPASMS 30 tablet 5 09/07/2024 Active Start: 12-30-2023 End: 03-14-2024 take 2 tablets by mouth at bedtime tiZANidine (Zanaflex) 4 MG tablet Indications: Chronic midline thoracic back pain take 2 tablets by mouth at bedtime if needed 30 tablet 1 03/02/2024 03/14/2024 Discontinued Start: 01-18-2023 End: 11-03-2023 take 2 tablets by mouth at bedtime tiZANidine (Zanaflex) 4 MG tablet Indications: Chronic midline thoracic back pain take 2 tablets by mouth at bedtime if needed 30 tablet 1 03/04/2023 04/13/2023 Discontinued (Reorder) Start: 10-24-2022 take 2 tablets by mo uth at bedtime tiZANidine (Zanaflex) 4 MG tablet take 2 tablets by mouth at bedtime if needed 0 10/24/2022 Active Start: 10-22-2022 End: 01-20-2023 Zanaflex 4 mg oral tablet Do se : 8 mg = 2 tab(s), Oral, qHS, PRN Muscle spasm, # 180 tab(s), 0 Refill(s), Pharmacy: [facility] #[id number], 137.2, cm, 08/11/22 13:50:00 EDT, Height, kg, 10/22/22 15:34:00 EDT, Dosing Weight Start Date: 10/22/22 Stop Date: 01/20/23 Status: Ordered Start: 07-21-2022 End: 10-19-2022 Zanaflex 4 mg oral tablet Do se : 8 mg = 2 tab(s), Oral, qHS, PRN Muscle spasm, # 180 tab(s), 0 Refill(s), Pharmacy: [facility] #[id number], 137, cm, 06/29/22 12:16:00 EDT, Height Start Date: 07/21/22 Stop Date: 10/19/22 Status: Ordered Start: 12-30-2021 End: 06-28-2022 Zanaflex 4 mg oral tablet Do se : 8 mg = 2 tab(s), Oral, qHS Start Date: 04/30/22 Status: Ordered Start: 11-24-2021 take 1 tablet by maura th at bedtime tiZANidine 4 mg oral tablet takes 1 tablet at bedtime Start Date: 11/24/21 Status: Ordered Start: 08-12-2021 take 1.5 tablets by mouth three times daily tiZANidine (ZANAFLEX) 4 mg tablet Take 1.5 tablets by mouth three times daily. 90 tablet 3 08/12/2021 Active Start: 06-03-2021 End: 08-12-2021 tiZANidine (ZANAFLEX) 4 mg t ablet 6 mg three times daily. 0 06/03/2021 08/12/2021 Discontinued Comment on above: Take 1.5 tablets by mouth three times daily. 6 mg three times christiana ly. Completed/Discontinued Medications Medication Drug Class(es) Dates Sig (Normalized) Sig (Original) acetaminophen 300 mg / HYDROcodone bitartrate 7.5 mg oral tablet (15 sources) Opioid Agonist End: 11-24-2022 HYDROcodone-acetami nophen (Xodol) 7.5-300 MG tablet tablet Take by mouth. 0 11/24/2022 Discontinued (Therapy completed) take 1 tablet by maura th three times daily as needed Hydrocodone-Acetaminophen 7.5-300 mg ORA L Tab takes one tab three times a day as needed. 0 Active Comment on above: takes one tab three times a day as needed. Take by mouth. amitriptyline hydrochloride 50 mg oral tablet (20 sources) Tricyclic Antidepressant Start: 12-11-19 End: 10-07-19 take 1 tablet by mouth once daily amitriptyline (Elavil) 50 MG tablet TAKE 1 TABLET BY MOUTH NIGHTLY 90 tablet 1 04/14/2024 10/06/2024 Discontinued Start: 06-29-2018 End: 08-12-2021 amitriptyline 50 mg oral tab let Dose : 50 mg = 1 tab(s), Oral, qHS, # 30 tab(s), 3 Refill(s), [id number], 137.2, cm, 08/11/22 13:50:00 EDT, Height, kg, 08/11/22 13:50:00 EDT, Dosing Weight Start Date: 08/11/22 Status: Ordered Comment on above: Take 1 tablet by maura th daily at bedtime. 50 mg daily at bedti me. atorvastatin 20 mg oral tablet (20 sources) HMG-CoA Reductase Inhibitor Start: 12-10-2021 Atorvastatin Active EACH PO December 09, 2021 11:00pm Start: 08-12-2021 End: 10-06-2024 take 1 tablet by mouth once daily in the evening atorvastatin (Lipitor) 20 MG tablet Indications: Hypercholesterolemia TAKE 1 TABLET BY MOUTH EVERY DAY IN THE EVENING 90 tablet 1 04/04/2024 10/06/2024 Discontinued Comment on above: Take 1 tablet by maura th daily at bedtime. Take 20 mg by mouth daily at bedtime. cephalexin 500 mg oral capsule (20 sources) Cephalosporin Antibacterial Start: 4 End: take 1 capsule by mouth every six hours Cephalexin 500 mg capsule Discontinued 500 mg PO EVERY 6 HOURS 28 0 January 22, 2024 1:00am September 11, 2024 2:29pm Start: 04-28-2022 End: 05-08-2022 cephalexin 500 mg oral capsu le Dose : 500 mg = 1 cap(s), Oral, QID, X 10 day(s), # 40 cap(s), 0 Refill(s), 05/08/22 11:24:00 EDT, Pharmacy: [id number], 137, cm, 04/27/22 15:04:00 EDT, Height, 44 Start Date: 04/28/22 Stop Date: 05/08/22 Status: Ordered Start: 10-30-2021 End: 12-10-2021 take 1 capsule by mouth three times daily Cephalexin 250 mg capsule Discontinued 250 mg PO THREE TIMES A DAY October 30, 2021 12:00am December 10, 2021 1:36pm Start: 10-27-2021 End: 11-03-2021 take 1 capsule by mouth three times daily cephALEXin (KEFLEX) 500 mg capsule Indications: Cellulitis of right lower leg Take 1 capsule by mouth three times daily for 7 days. 21 capsule 0 10/27/2021 11/03/2021 Active Comment on above: Take 1 capsule by mo [facility] three times daily for 7 days. cetirizine hydrochloride 10 mg oral tablet (20 sources) Histamine-1 Receptor Antagonist Start: 04-30-2022 End: 12-09-2023 cetirizine (ZyrTEC ALLERGY) 10 MG tablet 10 mg. 04/30/2022 12/09/2023 Discontinued Start: 03-04-2022 take 1 capsule by mo [facility] once daily as needed Cetirizine (Zyrtec) 10 mg capsule Active 10 mg PO DAILY NEEDED as needed for allergies March 04, 2022 1:00am Start: 06-29-2018 Zyrtec 10 mg o ral tablet Dose : 10 mg = 1 tab(s), Oral, qDay, # 30 tab(s), 0 Refill(s) Start Date: 06/29/18 Status: Ordered cyclobenzaprine hydrochloride 5 mg oral tablet (6 sources) Muscle Relaxant End: 10-06-2021 cyclobenzaprine (FLEXERIL) 5 mg tablet takes one tab a hs. 0 10/06/2021 Discontinued Comment on above: takes one tab a hs. 1 ml denosumab 60 mg/ml prefilled syringe (5 sources) RANK Ligand Inhibitor Start: 03-17-2022 End: 11-24-2022 Prolia 60 MG/ML solution prefilled syringe Start: 02-02-2022 End: 01-28-2023 Prolia 60 mg/mL subcutaneous solution Dose : 60 mg = 1 mL, Subcutaneous, q6mo, # 1 mL, 1 Refill(s), Osteoporosis Right hip pain Start Date: 02/02/22 Stop Date: 01/28/23 Status: Ordered doxycycline monohydrate 100 mg oral tablet (6 sources) Tetracycline-class Drug End: 10-06-2021 take 2 tablets by mouth once daily doxycycline 100 mg ORAL tablet takes two tabs a day. 0 10/06/2021 Discontinued Comment on above: takes two tabs a day . escitalopram 10 mg oral tablet (15 sources) Serotonin Reuptake Inhibitor Start: 08-12-2021 End: 11-24-2022 take 1 tablet by mouth in the morning escitalopram (Lexapro) 10 MG tablet Take 10 mg by mouth in the morning. 0 08/12/2021 11/24/2022 Discontinued (Therapy completed) Comment on above: Take 1 tablet by maura th once daily. Take 10 mg by mouth once daily. hydrOXYzine hydrochloride 25 mg oral tablet (15 sources) Antihistamine Start: 08-12-2021 End: 11-24-2022 take 1 tablet by mouth every six hours as needed hydrOXYzine HCl (Atarax) 25 MG tablet Take 25 mg by mouth every 6 hours as needed. 0 08/12/2021 11/24/2022 Discontinued (Therapy completed) Start: 08-12-2021 End: 08-12-2021 take 1 tablet by mouth four times daily as needed hydrOXYzine HCl (ATARAX) 25 mg tablet Indications: Chronic pain syndrome , Personal history of scleroderma Take 1 tablet by mouth four times daily as needed. 90 tablet 1 08/12/2021 Active Comment on above: Take 1 tablet by maura th four times daily as needed. Take 25 mg by mouth four times daily as needed. lactobacillus acidophilus 16 mg oral capsule (1 source) Star t: 04-16 End: 11-15 take 1 capsule by mouth three times daily Lactobacillus (Acidophilus) capsule TAKE 1 CAPSULE BY MOUTH THREE TIMES DAILY FOR 10 DAYS 0 05/07/2022 11/24/2022 Discontinued (Therapy completed) meloxicam 7.5 mg oral tablet (6 sources) Nonsteroidal Anti-inflammatory Drug End: 09-16 meloxicam (MOBIC) 7.5 mg tablet takes 1 tab a day. 0 10/06/2021 Discontinued Comment on above: takes 1 tab a day. metaxalone 800 mg oral tablet (6 sources) End: 09-16 metaxalone (SKELAXIN) 800 mg tablet Takes one tab three times daily. 0 10/06/2021 Discontinued Comment on above: Takes one tab three times daily. methylPREDNISolone (1 source) Corticosteroid Star t: 05-04 End: 07-17 methylPREDNISolone (MEDROL DOSE-PACK) 4 mg Dose-Pack polymyxin b 00371 unt/ml / trimethoprim 1 mg/ml ophthalmic solution (5 sources) Dihydrofolate Reductase Inhibitor Antibacterial, Polymyxin-class Antibacterial Star t: 02-15 End: 02-16 trimethoprim-polymyxin b (Polytrim) ophthalmic solution Indications: Acute bacterial conjunctivitis of right eye Administer 1 drop into the right eye in the morning and 1 drop at noon and 1 drop in the evening and 1 drop before bedtime. Do all this for 7 days. 10 mL 03/04/2023 03/11/2023 1 ml triamcinolone acetonide 40 mg/ml injection (15 sources) Corticosteroid Star t: 02-16 End: 02-16 inject 80 mg by intramuscular injection once 80 mg, IntraMUSCular, Once, On Wed03/14/24 at 1545, For 1 dose Start: 01-11-2024 End: 03-14-2024 triamcinolone acetonide (Phil alog-40) injection 80 mg Start: 10-27-2021 End: 11-24-2022 triamcinolone (Kenalog) 0.02 5 % cream Apply 1 Application topically in the morning and 1 Application in the evening. 0 10/27/2021 11/24/2022 Discontinued (Therapy completed) Comment on above: Apply 1 application to affected area twice daily. valACYclovir 1000 mg oral tablet (1 source) Herpesvirus Nucleoside Analog DNA Polymerase Inhibitor, Herpes Simplex Virus Nucleoside Analog DNA Polymerase Inhibitor, Herpes Zoster Virus Nucleoside Analog DNA Polymerase Inhibitor Start: 06-23-2021 End: 08-12-2021 valACYclovir (VALTREX) 1 gram vitamin B12 (20 sources) Vitamin B12 Start: 08-12-2021 End: 12-09-2023 cyanocobalamin (Vitamin B-12) 1000 MCG/ML injection Inject 1,000 mcg into the shoulder, thigh, or buttocks every 30 (thirty) days. 08/12/2021 12/09/2023 Discontinued (Therapy completed) Start: 08-12-2021 cyanocobalamin (Vitamin B-12) 1000 MCG/ML injection Inject 1,000 mcg into the shoulder, thigh, or buttocks every 30 (thirty) days. 08/12/2021 Active Start: 08-12-2021 cyanocobalamin (Vitamin B-12) 1000 MCG/ML injection Inject 1,000 mcg into the shoulder, thigh, or buttocks every 30 (thirty) days. 0 08/12/2021 Active Start: 08-12-2021 cyanocobalamin (Vitamin B-12) 1000 MCG/ML injection Inject 1,000 mcg into the shoulder, thigh, or buttocks every 30 (thirty) days. 0 08/12/2021 Active Start: 08-12-2021 inject 1 mL by intra muscular injection every month cyanocobalamin 1,000 mcg/mL Indications: B12 deficiency Inject 1 mL intramuscularly once every month. 1 mL 11 08/12/2021 Active Comment on above: Inject 1 mL intramus cularly once every month. zolpidem tartrate 10 mg oral tablet (6 sources) gamma-Aminobutyric Acid-ergic Agonist End: 2 take 1 tablet by mouth at bedtime zolpidem 10 mg ORAL Tab takes one tab at hs. 0 10/06/2021 Discontinued Comment on above: takes one tab at hs. Problems Active Problems Problem Classification Problem Date Documented Da te Episodic/Chronic Acquired foot deformities (1 source) Talipes cavus; Translations: [Congenital pes cavus, unspecified foot] Episodic Administrative/social admission (20 sources) Repeated prescription; Translations: [Encounter for issue of repeat prescription] 12-09-2021 Episodic Anxiety disorders (20 sources) Mixed anxiety and depressive disorder; Translations: [Anxiety disorder] Onset: 3 11-26-2021 Chronic Blindness and vision defects (20 sources) Blind left eye; Translations: [Blindness AND/OR vision impairment level] Onset: 3 11-26-2021 Chronic Disorders of lipid metabolism (20 sources) Hypercholesterolemia; Translations: [Pure hypercholesterolemia] Onset: 3 11-26-2021 Chronic Esophageal disorders (20 sources) Gastroesophageal reflux disease; Translations: [Gastroesophageal reflux disease without esophagitis] Onset: 3 11-26-2021 Chronic Essential hypertension (20 sources) Hypertensive disorder; Translations: [Essential (primary) hypertension] Onset: 3 07-21-2022 Chronic Malaise and fatigue (2 sources) Fatigue; Translations: [Other fatigue] 08-12-2023 Episodic Miscellaneous mental health disorders (4 sources) Primary insomnia; Translations: [Primary insomnia] 07-28-2023 Chronic Mood disorders (20 sources) Depressive disorder; Translations: [Depression, unspecified] Onset: 3 Chronic Nutritional deficiencies (20 sources) Vitamin D deficiency; Translations: [Vitamin D deficiency, unspecified] Onset: 3 02-04-2022 Chronic Open wounds of extremities (16 sources) Open wound of left forearm; Translations: [Unspecified open wound of left forearm, initial encounter] 05-14-2022 Episodic Osteoarthritis (20 sources) Primary osteoarthritis, left shoulder; Translations: [Arthropathy, unspecified, shoulder region] Onset: 2 01-30-2022 Chronic Osteoporosis (20 sources) Osteoporosis; Translations: [Primary osteoporosis] Onset: 3 02-02-2022 Chronic Other acquired deformities (1 source) Equinus contracture of the ankle; Translations: [Contracture, unspecified ankle] Chronic Other acquired deformities (1 source) Thoracogenic scoliosis, thoracolumbar region; Translations: [Thoracogenic scoliosis of thoracolumbar region] Onset: 2 Chronic Other acquired deformities (20 sources) Acquired scoliosis; Translations: [Other secondary scoliosis, lumbar region] Onset: 4 06-01-2023 Chronic Other acquired deformities (1 source) Scoliosis of lumbar spine; Translations: [Scoliosis, unspecified] 05-14-2023 Chronic Other aftercare (1 source) Long-term current use of opiate analgesic drug; Translations: [long term care phlebotomist (current) use of opiate analgesic] Episodic Other aftercare (1 source) long term care phlebotomist (current) use of opiate analgesic; Translations: [correction (current) use of opiate analgesic] Onset: 2 Episodic Other and unspecified benign neoplasm (20 sources) Benign neoplasm of bone and articular cartilage, unspecified; Translations: [Benign neoplasm of bone and articular cartilage, site unspecified] 04-13-2022 Episodic Other bone disease and musculoskeletal deformities (12 sources) Lesion of right thigh bone 02-27-2022 Episodic Other circulatory disease (1 source) Elevated blood-pressure reading without diagnosis of hypertension; Translations: [Elevated blood-pressure reading, without diagnosis of hypertension] Episodic Other congenital anomalies (19 sources) Osteosclerosis; Translations: [Osteopetrosis] 03-19-2022 Chronic Comment on above: R neck of femur. She had MRI done in [place] Other congenital anomalies (18 sources) Osteopetrosis; Translations: [Osteopetrosis] Onset: 4 03-19-2022 Chronic Other congenital anomalies (20 sources) Osteopetrosis; Translations: [Osteopetrosis] Onset: 3 11-24-2022 Chronic Other connective tissue disease (20 sources) H/O: musculoskeletal disease; Translations: [Personal history of other diseases of the musculoskeletal system and connective tissue] Onset: 2 Episodic Other connective tissue disease (1 source) Pain of right calf; Translations: [Pain in right lower leg] Episodic Other connective tissue disease (20 sources) Disorder of lower extremity; Translations: [Disorder of lower extremity] Onset: 3 11-26-2021 Episodic Other connective tissue disease (20 sources) Bursitis of right hip; Translations: [Other bursitis of hip, right hip] 04-13-2022 Episodic Other connective tissue disease (20 sources) Other bursitis of hip, right hip; Translations: [Enthesopathy of hip region] 04-13-2022 Episodic Other connective tissue disease (1 source) Pain in left arm; Translations: [Pain in left arm] Episodic Other connective tissue disease (3 sources) Pain in lower limb; Translations: [Pain in leg, unspecified] 06-24-2022 Episodic Other connective tissue disease (2 sources) Iliotibial band syndrome, right leg; Translations: [Other disorders of muscle, ligament, and fascia] 06-24-2022 Episodic Other connective tissue disease (3 sources) Bursitis of right shoulder; Translations: [Bursitis of right shoulder] 12-10-2021 Episodic Other connective tissue disease (1 source) Rotator cuff arthropathy of left shoulder; Translations: [Unspecified rotator cuff tear or rupture of left shoulder, not specified as traumatic] 12-07-2023 Episodic Other connective tissue disease (1 source) Bursitis of right shoulder; Translations: [Bursitis of right shoulder] Onset: 5 Episodic Other ear and sense organ disorders (1 source) Impacted cerumen in left ear; Translations: [Impacted cerumen, left ear] 09-01-2024 Episodic Other gastrointestinal disorders (20 sources) Irritable bowel syndrome; Translations: [Irritable bowel syndrome without diarrhea] Onset: 3 03-19-2022 Chronic Other inflammatory condition of skin (1 source) Itching ; Translations: [Pruritus, unspecified] Episodic Other nervous system disorders (20 sources) Chronic pain syndrome; Translations: [Chronic pain syndrome] Onset: 2 Chronic Other nervous system disorders (3 sources) Other chronic pain; Translations: [Other chronic pain] Onset: 2 Chronic Other nervous system disorders (20 sources) Chronic pain; Translations: [Other chronic pain] Onset: 3 11-29-2021 Chronic Other nervous system disorders (20 sources) Carpal tunnel syndrome; Translations: [Carpal tunnel syndrome, unspecified upper limb] Onset: 3 11-26-2021 Chronic Other nervous system disorders (20 sources) Neuropathy; Translations: [Polyneuropathy, unspecified] Onset: 3 11-24-2022 Chronic Other nervous system disorders (1 source) Chronic pain syndrome; Translations: [Chronic pain syndrome] Onset: 4 Chronic Other nervous system disorders (1 source) 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; Translations: [Personal history of other diseases of the nervous system and sense organs] Episodic Other non-traumatic joint disorders (5 sources) Hip pain 02-04-2022 Episodic Other non-traumatic joint disorders (4 sources) Pain in right shoulder; Translations: [Right shoulder pain] Onset: 5 09-11-2024 Episodic Other screening for suspected conditions (not mental disorders or infectious disease) (20 sources) Cancer cervix screening status; Translations: [Encounter for screening for malignant neoplasm of cervix] Onset: 5 Episodic Other skin disorders (20 sources) Linear scleroderma; 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] Onset: 3 Resolved: 4 11-24-2022 Chronic Other skin disorders (1 source) Linear scleroderma; 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] Onset: 4 Chronic Other skin disorders (2 sources) Foot callus; Translations: [Corns and callosities] Episodic Other skin disorders (16 sources) Mass of soft tissue 12-09-2021 Episodic Otitis media and related conditions (1 source) Infection of ear; Translations: [Otitis media, unspecified, unspecified ear] Episodic Residual codes; unclassified (16 sources) Chronic pain 11-26-2021 Episodic Residual codes; unclassified (16 sources) Postmenopausal state 11-26-2021 Episodic Residual codes; unclassified (1 source) Tobacco user; Translations: [Tobacco use] Onset: 3 Episodic Residual codes; unclassified (2 sources) Insomnia, unspecified; Translations: [Insomnia, unspecified] Onset: 3 Episodic Spondylosis; intervertebral disc disorders; other back problems (20 sources) Lumbar spondylosis; Translations: [Spondylosis without myelopathy or radiculopathy, lumbar region] Onset: 2 Chronic Substance-related disorders (20 sources) Tobacco user; Translations: [Nicotine dependence, unspecified, uncomplicated] Onset: 5 06-08-2023 Chronic Substance-related disorders (1 source) Continuous opioid dependence; Translations: [Opioid use, unspecified, uncomplicated] 11-18-2022 Episodic Superficial injury; contusion (15 sources) Contusion of right hip, initial encounter; Translations: [Contusion of hip] 01-30-2022 Episodic Systemic lupus erythematosus and connective tissue disorders (20 sources) Systemic sclerosis; Translations: [Systemic sclerosis, unspecified] Onset: 3 Resolved: 3 Chronic Unclassified (16 sources) Vaccination needed 11-26-2021 Unclassified (14 sources) Body mass index 20-24 - normal 01-13-2022 Unclassified (20 sources) Patient encounter status 01-13-2022 Unclassified (1 source) Bilateral chronic pain of upper limbs 09-01-2024 Unclassified (1 source) Low back pain, unspecified; Translations: [Low back pain, unspecified] Onset: 3 Unclassified (2 sources) New Patient; Translations: [New Patient] Onset: 4 Past or Other Problems Problem Classification Problem Date Documented Da te Episodic/Chronic Cancer of breast (20 sources) Personal history of malignant neoplasm of breast; Translations: [History of malignant neoplasm of breast] Onset: 11-24-2022 Episodic Fracture of upper limb (20 sources) Fracture of unspecified part of left clavicle, initial encounter for closed fracture; Translations: [Closed fracture of clavicle, unspecified part] Onset: 02-25-2022 Resolved: 07-28-2023 Episodic Headache; including migraine (20 sources) Headache; Translations: [Headache] Onset: 11-24-2022 11-24-2022 Episodic Hemorrhoids (20 sources) Hemorrhoids; Translations: [Unspecified hemorrhoids] Onset: 11-24-2022 03-17-2022 Episodic Immunizations and screening for infectious disease (20 sources) Patient encounter status; Translations: [Encounter for immunization] Onset: 12-09-2023 Episodic Inflammation; infection of eye (except that caused by tuberculosis or sexually transmitteddisease) (20 sources) Acute infectious conjunctivitis; Translations: [Unspecified acute conjunctivitis, right eye] Onset: 03-04-2023 Resolved: 03-31-2023 03-04-2023 Episodic Mood disorders (20 sources) Mood disorders Onset: 11-03-2023 11-03-2023 Mycoses (20 sources) Candidiasis of skin; Translations: [Candidiasis of skin and nail] Onset: 01-11-2024 Resolved: 03-14-2024 01-11-2024 Episodic Nausea and vomiting (20 sources) Nausea; Translations: [Nausea] Onset: 11-24-2022 Resolved: 03-31-2023 08-11-2022 Episodic Nutritional deficiencies (20 sources) Cobalamin deficiency; Translations: [Deficiency of other specified B group vitamins] Onset: 08-12-2021 Episodic Other acquired deformities (20 sources) Acquired deformity of left upper arm; Translations: [Unspecified acquired deformity of left upper arm] Onset: 08-12-2021 Episodic Other acquired deformities (20 sources) Acquired deformity of left lower leg; Translations: [Unspecified acquired deformity of left lower leg] Onset: 08-12-2021 Episodic Other acquired deformities (20 sources) Leg length inequality; Translations: [Unequal limb length (acquired), unspecified site] Onset: 11-24-2022 06-01-2023 Episodic Other acquired deformities (20 sources) Acquired unequal limb length; Translations: [Unequal limb length (acquired), unspecified site] Onset: 10-06-2023 Episodic Other and unspecified benign neoplasm (20 sources) Enchondroma of bone; Translations: [Benign neoplasm of bone and articular cartilage, unspecified] Onset: 11-24-2022 04-13-2022 Episodic Comment on above: R femoral head-stabl e. Other connective tissue disease (20 sources) Medial epicondylitis; Translations: [Medial epicondylitis, unspecified elbow] Onset: 11-24-2022 11-26-2021 Episodic Other connective tissue disease (20 sources) Disorder of rotator cuff; Translations: [Unspecified disorder of synovium and tendon, unspecified shoulder] Onset: 02-25-2022 12-10-2021 Episodic Other connective tissue disease (20 sources) Bursitis of shoulder; Translations: [Bursitis of right shoulder] Onset: 02-25-2022 12-10-2021 Episodic Other connective tissue disease (20 sources) Iliotibial band friction syndrome of right knee; Translations: [Iliotibial band syndrome, right leg] Onset: 11-24-2022 06-24-2022 Episodic Other connective tissue disease (20 sources) Bilateral chronic pain of upper limbs; Translations: [Pain in right arm] Onset: 02-25-2022 11-24-2022 Episodic Other eye disorders (18 sources) Disorder of left eye; Translations: [Other specified disorders of eye and adnexa] Onset: 01-06-2023 01-06-2023 Episodic Other eye disorders (20 sources) Other specified disorders of eye and adnexa; Translations: [Other ill-defined disorders of eye] Onset: 01-06-2023 Resolved: 11-03-2023 01-06-2023 Episodic Other gastrointestinal disorders (20 sources) Constipation; Translations: [Constipation, unspecified] Onset: 11-24-2022 Resolved: 03-31-2023 11-26-2021 Episodic Other non-traumatic joint disorders (20 sources) Pain in right hip joint; Translations: [Pain in right hip] Onset: 01-30-2022 11-24-2022 Episodic Other non-traumatic joint disorders (20 sources) Pain in left shoulder; Translations: [Pain in joint, shoulder region] Onset: 02-25-2022 02-03-2023 Episodic Other nutritional; endocrine; and metabolic disorders (14 sources) H/O: raised blood lipids; Translations: [Personal history of other endocrine, nutritional and metabolic disease] Onset: 08-12-2021 Episodic Other skin disorders (20 sources) Pimple of skin; Translations: [Other skin changes] Onset: 04-29-2023 Resolved: 05-31-2024 04-29-2023 Episodic Other skin disorders (20 sources) Mass of back; Translations: [Localized swelling, mass and lump, trunk] Onset: 05-20-2023 05-20-2023 Episodic Other skin disorders (17 sources) Hidradenitis; Translations: [Hidradenitis suppurativa] Onset: 05-31-2024 05-31-2024 Episodic Other skin disorders (2 sources) Acne, unspecified; Translations: [Acne, unspecified] Onset: 05-31-2024 Episodic Residual codes; unclassified (20 sources) Insomnia; Translations: [Insomnia, unspecified] Onset: 11-24-2022 Episodic Residual codes; unclassified (20 sources) Past history of procedure; Translations: [Other specified postprocedural states] Onset: 02-24-2022 Episodic Residual codes; unclassified (20 sources) Body mass index 20-24 - normal; Translations: [Body mass index (BMI) of 20 to 24] Onset: 11-24-2022 11-24-2022 Episodic Skin and subcutaneous tissue infections (18 sources) Cellulitis of lower leg; Translations: [Cellulitis of right lower limb] Onset: 04-29-2022 Episodic Spondylosis; intervertebral disc disorders; other back problems (20 sources) Lumbar radiculopathy; Translations: [Neck pain] Onset: 11-24-2022 02-25-2022 Episodic Unclassified (1 source) Low back pain, unspecified; Translations: [Low back pain, unspecified] Onset: 01-11-2024 Viral infection (20 sources) Disease caused by 2019-nCoV; Translations: [COVID-19] Onset: 03-04-2023 Resolved: 03-04-2023 02-15-2023 Episodic Results Test Name Value Interpretation Reference Range Facility 36on 10-04-2024 36 Reviewed chart. Refi ll appropriate. RX sent. [facility] 36 Prescription Request : Last medication check: 08/30/2024 Last physical exam: 03/14/2024 Next scheduled appointment: 11/30/2024 CSA on file (date): 01/11/2024 Last urine drug screen: 05/31/2024 Last date of refill on this medication: 08/30/[address] [facility] 36on 09-29-2024 36 Not due for a refill until the end of October. [facility] Orthopedic Visit Reporton Orthopedic Visit Report [facility] [address] [place] [address] OFFICE VISIT Date of Service: 09/11/24 MR#: [id number] Acct: [id number] Name: PARIS MONCADA Rep #: [id number] : 1970 Provider: Dr. Shady rojas MD Age/Sex: 54/F Location: [facility] [email or web address] Status: Signed Intake Vital Signs 01/22/24 10:21 09/11/24 14:26 Height 4 ft 6 in 4 ft 6 in Weight: 101 lb 8 oz BMI 24.5 Intake Visit Reasons: RIGHT SHOULDER Chief Complaint: right shoulder Accompanied by: Self Is patient in pain?: Yes (drive all day [place]) Pain scale (1-10): 8 Allergies duloxetine (From Cymbalta) Allergy (Verified 09/11/24 14:29) Chest tightness trazodone Allergy (Verified 09/11/24 14:29) Chest tightness tramadol Adverse Reaction (Verified 09/11/24 14:29) Other Medications ???Medication ???Instructions ???Recorded ???Confirmed ???Type amitriptyline 50 mg tablet 50 mg PO QHS 12/10/21 09/11/24 His tory atorvastatin 20 mg tablet 20 mg PO QHS 12/10/21 09/11/24 His tory dexlansoprazole 60 mg 60 mg PO DAILY 12/10/21 09/11/24 H istory capsule,biphase delayed release eszopiclone 3 mg tablet 3 mg PO QHS 12/10/21 09/11/24 Hist ory cetirizine 10 mg capsule (Zyrtec) 10 mg PO DAILY PRN PRN allergies 03/04/22 09/11/24 History cholecalciferol (vitamin D3) 1,250 1,250 mcg PO QWEEK 03/04/2208/16 History mcg (50,000 unit) capsule fenofibric acid (choline) 45 mg 45 mg PO DAILY 03/04/22 09/11/24 H istory capsule,delayed release oxycodone-acetaminophe n 5 mg-325 1 tab PO TID PRN 05/12/23 09/11/24 History mg tablet sulfamethoxazole 800 1 tab PO BID #14 TABLETS 01/22/24 09/11/24 Rx mg-trimethoprim 160 mg tablet PFSH Medical History (Updated 09/11/24 @ 14:31 by Shady Burks MD) Right shoulder pain Left rotator cuff tear arthropathy Vitamin D deficiency Soft tissue mass Right hip pain Osteoporosis Muscle spasms of both lower extremities Insomnia Golfers elbow of right upper extremity Depression with anxiety Carpal tunnel syndrome Blindness of left eye B12 deficiency Acid reflux High cholesterol Scleroderma History of chronic pain Surgical History History of carpal tunnel surgery H/O eye surgery Hx of right knee surgery Family History Aunt Cancer lung Mother Diabetes Social History household members: other details: step dad Smoking Status: Current every day smoker tobacco type: cigarettes alcohol intake: never substance use type: does not use what type of physical activity do you participate in: other details: stretches frequency: daily HPI RIGHT SHOULDER Details: This documentation accurately reflects the service provided and the decisions made by me, Dr. Shady Burks MD 09/11/24 9340. Part of today???s visit was documented by [ ], acting as scribe. PARIS MONCADA is a 54 year old F here today for R shoulder pain. Wants a cortisone injection. Ongoing pain mostly on the lateral side worse with lifting. The patient has previously seen me for left side injection. They had cortisone injections back in the fall as well that seems to be helpful. 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 Office Procedures Ortho Injections Injections Yes Subacromial Injection Right Is this a patient provided medication?: No Details: Obtained consent for injection. Under sterile conditions, injected the patients right shoulder with 1cc Kenalog, and 3cc Bupivacaine. The patient tolerated the injection well without any noted complication. Patient should call our office if redness develops, pain worsens or if they have any concerns. Office Meds Kenalog 40 mg/mL suspension for injection Performing Provider: Shady Burks MD Performing Location: [facility] Administered by: Shady Burks MD on 09/11/24 14:45 Dose Route Admin Location Dispensed Lot Number Expiration Date NDC Guillermo ufacturer 40 mg intra-articular Right shoulder 1 mL [id number] 09/15/26 3673-7598-99 B [facility] Supplemental Info [facility] [address] [place] [address] Shoulder min 2 Views MR#: [id number] Acct: [id number] Name: PARIS MONCADA Rep #: [id number] : 1970 F 52 From: Alex Oseguera DO PCP: Status: SIA GIL Study: Shoulder min 2 Views Date of Exam: 12/23/22 Exam# [id number] Ordering Dr: Rayo Cantu DO [id number] EXAM: XR RIGHT SHOULD (more content not included)... [facility] 36on 09-07-2024 36 Reviewed chart. Refi ll appropriate. RX sent. [place] [id number] Reviewed chart. Refi ll appropriate. RX sent. [place] [id number] Prescription Request : TIZANIDINE HCL 4 MG TABLET Last medication check: 08/30/24 Last physical exam: 03/14/24 Next scheduled appointment: 11/30/24 Last date of refill on this medication 03/14/24 ( qty 90 refill 1) [place] [id number] Prescription Request : oxyCODONE-acetaminophe n (Percocet) 5-325 MG tablet Last medication check: 08/30/24 Last physical exam: 03/14/24 Next scheduled appointment: 11/30/24 Last date of refill on this medication 08/10/24 ( qty 90 refill 0) [facility] 36on 09-04-2024 36 Not due for a refill until the end of September. [facility] 36 Prescription Request : Last medication check: 08/30/24 Last physical exam: 03/14/24 Next scheduled appointment: 11/30/24 Last date of refill on this medication 04/14/24 [address] [facility] 36on 08-31-2024 36 Please sign new referral. [facility] Office Visiton 08-30-2024 Follow-up visit [id number] Irvin Moncada 1970 F Date Provider Department Center 08/[facility]20[facility] Family History Problem Relation Age of Onset Arthritis Mother Diabetes Mother Hyperlipidemia Mother Kidney disease Mother Cirrhosis Father Alcohol abuse Father Family Status - Relation Status Age at Mother Father Level of Service:85229 [place] OFFICE/OUTPATIENT ESTABLISHED MOD MDM 30 MIN Reason for Visit and Comments: Medication Check [[id number]] [facility] Progress Noteon 08-30-2024 Progress Note Will treat for acute flareup with short burst of steroids. No red flags [facility] Progress Note Needs to get DEXA completed [facility] Progress Note Needs to get her DEX A scan completed [facility] Progress Note Last Pap smear unsatisfactory. Due to patient's anatomy and scleroderma, provider was unable to use speculum and did not get a satisfactory she is low risk, no longer sexually active. No history of abnormal Pap smears. She has the option to discontinue her cervical cancer screenings or we can refer her to a power digger operator, patient states she will let us know what she decides to do [facility] Progress Note Patient was identifi ed by name and Date of . Health Maintenance Due Topic Colorectal Cancer Screening Diabetes Screening Lung Cancer Screening Bone Density Scan Mammogram Ultrasound-breast PapSmear Bone Density Patient was identified by name and date of . Left ear irrigation order placed and signed by provider. Irrigation completed. Patient tolerated Medium amount removed from Left ear. Provider went back in room and rechecked ears(s) after irrigation and no further flushing needed. Charged Normal [facility] Progress Note 08/30/2024 Paris Moncada (: 1970) is a 54 y.o. female , Established patient, here for evaluation of the following chief complaint(s): Medication Check ASSESSMENT/PLAN: 1. Chronic right-sided low back pain without sciatica Assessment & Plan: Will treat for acute flareup with short burst of steroids. No red flags Orders: - predniSONE (Deltasone) 20 MG tablet; Take 3 tabs (60mg) daily for 3 days, then take 2 tabs (40mg) daily for 3 days, then take 1 tab (20mg) daily for 3 days., Normal 2. Osteopetrosis Assessment & Plan: Needs to get DEXA completed Orders: - DEXA bone density axial skeleton 3. Osteoporosis, unspecified osteoporosis type, unspecified pathological fracture presence Assessment & Plan: Needs to get her DEXA scan completed Orders: - DEXA bone density axial skeleton 4. Insomnia, unspecified type Assessment & Plan: Symptoms well-controlled on Lunesta 3 mg nightly. Continue current medication. OARRS reviewed and consistent with treatment plan Orders: - eszopiclone (Lunesta) 3 MG tablet; Take 1 tablet (3 mg) by mouth Nightly as needed for sleep. Take immediately before bedtime, Starting 08/30/2024, Until Wed09/29/2024 at 2359, Normal 5. Unsatisfactory cervical Papanicolaou smear Assessment & Plan: Last Pap smear unsatisfactory. Due to patient's anatomy and scleroderma, provider was unable to use speculum and did not get a satisfactory she is low risk, no longer sexually active. No history of abnormal Pap smears. She has the option to discontinue her cervical cancer screenings or we can refer her to a power digger operator, patient states she will let us know what she decides to do 6. Chronic pain syndrome Assessment & Plan: Continue Percocet 5-3 25 every 8 hours as needed for severe pain. OARRS reviewed and consistent with treatment plan. MA is in place. Will see if we can find a palliative provider in the [place] area to better help manage her symptoms. 7. Impacted cerumen of left ear Moderate amt of cerumen removed with irrigation. TM intact. Patient tolerated procedure well. Follow up in about 3 months (around 11/30/2024) for with primary care provider as scheduled. SUBJECTIVE/OBJECTIVE: BRADFORD Moncada (: 1970) is a 54 y.o. female , Established patient, here for the evaluation of the following chief complaint(s): Medication Check Presents to follow-up on her chronic pain and insomnia. Reports her sleep is well-managed with the Lunesta 3 mg nightly. Reports her pain in her back shoulders and hips bothers her throughout the day. She is currently on Percocet 5-325 mg every 8 hours for pain. She also uses medical marijuana to help with IBS symptoms. She mostly uses the marijuana in the evening. She previously was on higher dosing of the Percocet several years ago and reports she felt it was more helpful. We have tried to get her into pain management but that has not been successful due to her concurrent use of medical marijuana. We attempted to wean down on the Lunesta but she did not tolerate. She does see orthopedic and gets steroid injections in her right shoulder. 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 She would like to see if a palliative care provider would be able to help manage her symptoms better. Reports right now her right lower back is flared up and has increased pain with movement. Denies any radiation down the legs and no change in bowel or bladder. Left ear- reports using debrox in it and getting some wax out but still feels like there is some in there. Right ear is fine Current Medications[1] Review of Systems Constitutional: Negative for activity change and fatigue. HENT: Negative. Respiratory: Negative. Gastrointestinal: Positive for constipation (comes and goes). Negative for abdominal pain, blood in stool, diarrhea, nausea and vomiting. Genitourinary: Negative for difficulty urinating. Musculoskeletal: Positive for arthralgias and gait problem. Psychiatric/Behavioral : Negative. Vitals: 08/30/24 1533 08/30/24 1614 BP: (!) 141/83 129/78 Pulse: 97 97 Resp: 24 Temp: 37.2 ?C (98.9 ?F) TempSrc: Infrared SpO2: 97% Weight: 99 lb (44.9 kg) Physical Exam Constitutional: General: She is not in acute distress. Appearance: She is not ill-appearing. HENT: Head: Normocephalic. Right Ear: Tympanic membrane normal. Left Ear: No drainage. There is impacted cerumen. No mastoid tenderness. Ears: Comments: Moderate amt of cerumen in the left canal. Partially occluded. Nose: No congestion or rhinorrhea. Mouth/Throat: Mouth: Mucous membranes are moist. Pharynx: Oropharynx is clear. Comments: A dentulous Eyes: Conjunctiva/sclera: Right eye: Right conjunctiva is not injected. No chemosis, exudate or hemorrhage. Comments: Left eyelid sewn shut Cardiovascular: Rate and Rhythm: Normal rate and regular rhythm. Pulses: Normal pulses. Heart so (more content not included)... [address] 08-21-2024 PA closed 08/01 not required for patient/medication [address] 08-10-2024 36 Reviewed chart. Refi ll appropriate. RX sent. [place] [id number] Prescription Request : oxyCODONE-acetaminophe n (Percocet) 5-325 MG tablet Last medication check: 07/28/23 Last physical exam: 03/14/24 Next scheduled appointment: 08/30/24 CSA on file (date): 06/13/24 Urine drug screen - 05/31/24 Last date of refill on this medication 07/13/24 ( qty 90 refill 0) [address] 08-02-2024 Reviewed chart. Refi ll appropriate. RX sent. [place] [address] Reviewed chart. Refi ll appropriate. RX sent. [place] [address] Prescription Request : AMLODIPINE BESYLATE 5 MG TAB Last medication check: 11/03/23 Last physical exam: 03/14/24 Next scheduled appointment: 08/30/24 Last date of refill on this medication 11/03/23 ( Qty 90 refill 1) [place] [id number] Prescription Request : Last medication check: 08/12/23 Last physical exam: 03/14/24 Next scheduled appointment: 08/30/24 Csa 01/11/24 Uds 05/31/24 Last date of refill on this medication 07/06/2529 and no refill [address] 08-01-2024 36 PA submitted 08/[address] 07-13-2024 36 Reviewed chart. Refi ll appropriate. RX sent. [place] [id number] Prescription Request : oxyCODONE-acetaminophe n (Percocet) 5-325 MG tablet Last medication check: 07/28/23 Last physical exam: 03/14/24 Next scheduled appointment: 08/30/24 CSA on file (date): 06/13/24 Last date of refill on this medication 06/13/24 ( qty 90 refill 0) [address] 07-06-2024 36 Reviewed chart. Refi ll appropriate. RX sent. [place] [id number] Prescription Request : eszopiclone (Lunesta) 3 MG tablet Last medication check: 05/31/24 well woman Last physical exam: 03/14/24 Next scheduled appointment: 08/30/24 CSA on file (date): 01/12/24 Last date of refill on this medication 06/07/24 ( qty 39 refill 0) [address] 06-13-2024 36 Last read by Paris Moncada at 4:00 PM on 06/12/2024. [place] [id number] Prescription Request : oxyCODONE-acetaminophe n (Percocet) 5-325 MG tablet Last medication check: 05/31/24 Last physical exam: 03/14/24 Next scheduled appointment: 08/30/24 CSA on file (date): 12/10/23 Last date of refill on this medication 05/17/24 ( qty 90 refill 0) [address] 06-09-2024 36 Mychart message sent to patient-noted at next appointment. [place] [id number] ----- Message from KATHERINE Escalante CNP sent at 06/09/2024 6:04 AM EDT ----- PAP smear and HPV- unfortunately the specimen was unsatisfactory for the test to be completed. Due to difficulty of examination, recommend referral to gynecology for screening to be completed. Can be discussed further at next appointment. [address] 2024 36 Reviewed chart. Refi ll appropriate. RX sent. [facility] 36 Reviewed chart. Refi ll appropriate. RX sent. [facility] 36 CSA - Lunesta 05/31/2024 Drug Screen completed [facility] 36 Patient is out of medication. Medication name: eszopiclone (Lunesta) 3 MG tablet Medication dosage: 3 MG tablet Monthly quantity needed: 30 How many day supply requestin days Medication route: oral (PO) Medication administration time(s): Nightly If taking medication PRN, reason for taking medication: Sleep If this is a controlled substance do you receive this or any other controlled medication from any other doctor or facility: no Ordering provider: Paris Solorzano Date of last office visit: 05/31/24 Date of next office visit: 08/30/24 Date of last refill: (see medication tab): 05/08/24 Updated/Validated preferred pharmacy: Yes Patient instructed to contact the pharmacy prior to picking up the medication: Yes [facility] AMB POC DRUG SCREEN 12, LABS OURCEon 05-31-2024 Amphetamine Screen, Urine Not detected [facility] [employer] Barbiturates Screen Ql (U) Not detected N one Detected [facility] [employer] Benzodiazepines Ql (U) Not detected None Detected [facility] [employer] Cannabinoids Screen (U) [Mass/Vol] Positive [facility] [employer] Cocaine Ql (U) Not detected None Detected [facility] [employer] Interpretation and review of laboratory results Abnormal [facility] Methadone Screen Ql (U) Not detected [facility] Methamphetamine (U) [Mass/Vol] Negative [facility] Methylenedioxymethamphetami ne (U) [Mass/Vol] Negative ng/mL [facility] [employer] Opiates Screen Ql (U) Not detected [facility] oxyCODONE Ql (U) Positive [facility] Phencyclidine Ql (U) Not detected None Detected [facility] Tricyclic antidepressants Screen Ql (U) Positive [facility] Office Visiton 05-31-2024 Follow-up visit [id number] Irvin Moncada 1970 F Date Provider Department Center 05/31/2024 BR[facility] DC [facility] Family History Problem Relation Age of Onset Arthritis Mother Diabetes Mother Hyperlipidemia Mother Kidney disease Mother Cirrhosis Father Alcohol abuse Father Family Status - Relation Status Age at Mother Father Level of Service:51559 [place] OFFICE/OUTPATIENT ESTABLISHED MOD MDM 30 MIN Reason for Visit and Comments: Gynecologic Exam [50] [facility] Progress Noteon 05-31-2024 Progress Note Symptoms well-controlled on Lunesta 3 mg nightly. Continue current medication. [facility] Progress Note Stable. Has been evaluated by Dr. Benson rheumatology. Stable condition no rheumatological interventions indicated [facility] Progress Note No active lesions. Will start topical antibiotic daily to affected areas. [facility] Progress Note 05/31/2024 Paris Moncada (: 1970) is a 53 y.o. female , Established patient, here for evaluation of the following chief complaint(s): Gynecologic Exam ASSESSMENT/PLAN: 1. Chronic pain syndrome Assessment & Plan: Continue Percocet 5-3 25 every 8 hours as needed for severe pain. OARRS reviewed and consistent with treatment plan. CS MA is in place. Orders: - AMB POC DRUG SCREEN 12, [facility]SOURCE 2. Screening for cervical cancer - Pap Smear 3. Hidradenitis Assessment & Plan: No active lesions. Will start topical antibiotic daily to affected areas. Orders: - clindamycin (Cleocin T) 1 % gel (Twice-Daily); Apply to affected area daily, Normal 4. Systemic sclerosis (HCC) Assessment & Plan: Stable. Has been evaluated by Dr. Benson rheumatology. Stable condition no rheumatological interventions indicated 5. Uncomplicated opioid dependence (HCC) Assessment & Plan: Continue Percocet 5-325 mg every 8 hours as needed for severe pain. OARRS reviewed and consistent with treatment plan CS MA is in place 6. Primary insomnia Assessment & Plan: Symptoms well-controlled on Lunesta 3 mg nightly. Continue current medication. Follow up for 3 month medcheck. SUBJECTIVE/OBJECTIVE: HPI - Paris Moncada (: 1970) is a 53 y.o. female , Established patient, here for the evaluation of the following chief complaint(s): Gynecologic Exam Patient presents for her 3-month med check for chronic pain and for her gynecological exam. She has already had her annual physical with fasting labs completed earlier this year. She states she had her labs completed at [facility] and we will need to request those results as they did not send them to us. She still needs to schedule her mammography and ultrasound screening for breast cancer. Also her DEXA scan. She reports her chronic pain is poorly controlled. We have continued on her Percocet 5 mg 3 times a day, she uses medical marijuana in the evenings to help with her IBS symptoms and pain. She is on amitriptyline 50 mg at bedtime, also takes Ambien for insomnia. She has been on the current doses of medications for several years. Has been unsuccessful with establishing with another pain management provider. Patient is aware of increased sedation and increased risk for respiratory failure with concurrent use of current medications. Current Outpatient Medications Medication Sig Dispense Refill amitriptyline (Elavil) 50 MG tablet TAKE 1 TABLET BY MOUTH NIGHTLY 90 tablet 1 amLODIPine (Norvasc) 5 MG tablet Take 1 tablet (5 mg) by mouth daily. 90 tablet 1 atorvastatin (Lipitor) 20 MG tablet TAKE 1 TABLET BY MOUTH EVERY DAY IN THE EVENING 90 tablet 1 choline fenofibrate (Trilipix) [address] capsule Take by mouth. dexlansoprazole (Dexilant) [address] capsule Take 1 capsule (60 mg) by mouth daily. 90 capsule 1 eszopiclone (Lunesta) 3 MG tablet Take 1 tablet (3 mg) by mouth Nightly as needed for sleep. Take immediately before bedtime 30 tablet 0 naloxone (Narcan) 4 mg/0.1 mL nasal spray ADMINISTER A SINGLE spray INTO ONE NOSTRIL repeat in 3 MINUTES IF... (REFER TO PRESCRIPTION NOTES). nystatin (Mycostatin) [id number] UNIT/GM powder Apply topically 3 times daily. 60 g 1 oxyCODONE-acetaminophe n (Percocet) 5-325 MG tablet Take 1 tablet by mouth every 8 hours as needed for severe pain (7-10). Do not start before May 17, 2024. 90 tablet 0 tiZANidine (Zanaflex) 4 MG tablet Take 1 tablet at bedtime as needed for muscle spasms 90 tablet 1 clindamycin (Cleocin T) 1 % gel (Twice-Daily) Apply to affected area daily 60 g 11 No current facility-administered medications for this visit. Review of Systems Constitutional: Negative. Negative for activity change, chills, fatigue and fever. HENT: Negative. Respiratory: Negative. Cardiovascular: Negative. Gastrointestinal: Negative for abdominal pain, blood in stool, nausea and vomiting. Alternates between constipaton and loose stools- IBS Genitourinary: Negative for difficulty urinating. Musculoskeletal: Positive for back pain and gait problem. Skin: Skin issues under the right axilla and under the breast Neurological: Negative for dizziness and light-headedness. Psychiatric/Behavioral : Negative for agitation, dysphoric mood, self-injury, sleep disturbance and suicidal ideas. The patient is not nervous/anxious. Vitals: 05/31/24 1519 05/31/24 1603 BP: (!) 150/83 135/78 Pulse: 98 98 Resp: 18 Temp: 36.8 ?C (98.3 ?F) TempSrc: Infrared SpO2: 97% Weight: 100 lb 9.6 oz (45.6 kg) Physical Exam Constitutional: General: She is not in acute distress. Appearance: She is not ill-appearing. HENT: Head: Normocephalic. Right Ear: Tympanic membrane normal. Left Ear: Tympanic membrane normal. Nose: No congestion or rhinorrhea. Mouth/Throat: Mouth: Mucous membranes are moist. Pharynx: Oropharynx is clear. Comments: A dentulous Eyes: Conjunctiva/sclera: Right eye: (more content not included)... [facility] Progress Note Patient was identifi ed by name and Date of . Health Maintenance Due Topic Colorectal Cancer Screening-REFERRAL PRINTED Diabetes Screening-DONE AT [facility] 2-3 MONTHS-WILL FAX KATHRIN Cervical Cancer Screening-TODAY Lung Cancer Screening-PENDED Bone Density Scan-ORDERS ALREADY IN Mammogram-ORDERS ALREADY IN Depression Monitoring-COMPLETED Patient identified by name and date of . Urine drug screen collected. Specimen cup labeled with patient name and date of . Urine cup given to patient, advised patient to not flush toilet or wash hands prior to handing cup out to me. Urine collected from patient. Urine drug screen ordered and signed by provider. Urine Drug screen results entered and were sent to provider. [facility] 36on 05-15-2024 36 Prescription Request : Last medication check: 03/14/24 Last physical exam: 03/04/23 Next scheduled appointment: 05/31/24 CSA on file (date): 01/12/24 Last urine drug screen: 02/03/23 Last date of refill on this medication 04/17/[address] [facility] 36on 05-08-2024 36 Reviewed chart. Refi ll appropriate. RX sent. [facility] 36 CSA - Lunesta 01/11/24 [facility] 36 Patient is out. Medication name: eszopiclone (Lunesta) 3 MG tablet [[id number]] Medication dosage: 3 mg (Miligrams Monthly quantity needed: 30 How many day supply requestin days Medication route: oral (PO) Medication administration time(s): bedtime (HS) If taking medication PRN, reason for taking medication: N/A If this is a controlled substance do you receive this or any other controlled medication from any other doctor or facility: No Ordering provider: Dr. Goodman Date of last office visit: 03.14.24 Date of next office visit: 05.31.24 Date of last refill: (see medication tab): 04.05.24 Updated/Validated preferred pharmacy: Yes [facility]/pharmacy #[id number] [address] DEAN #: [id number] Patient instructed to contact the pharmacy prior to picking up the medication: Yes [address] 04-27-2024 36 Noted. Agree with disposition. [place] [address] S: Patient spoke wit h [facility] nurse regarding boil under right arm, green pus B: Onset of symptoms/concern A: Has been getting boils under arms, went to ED lastnight for one under right, left without being seen due to wait, boil popped today, drained green pus, not under bad arm, has had staph before, would like to know if antibiotics could be called in. Denies: fever, R: Advised if patient's boil is draining green pus, she should be seen tonight, and could be evaluated at Urgent care. Advised office is closed currently and no appointments available in office tomorrow. Patient understands care advice. No further needs at this time. Patient instructed to call back with new or worsening symptoms. Reason for Disposition Spreading redness around the boil and no fever Protocols used: Boil (Skin Abscess)-ADULT-OH Normal [facility] 36on 04-14-2024 36 Reviewed chart. Refi ll appropriate. RX sent. [place] [id number] Prescription Request : Last medication check: 01-11-24 Last physical exam: 03-14-24 Next scheduled appointment: 04-10-24 Last date of refill on this medication 12/23/23 [place] [address]on 04-10-2024 36 CSA 12/09/23 [place] [address] Medication name: oxyCODONE-acetaminophe n (Percocet) 5-325 MG tablet Medication dosage: 5-325 mg (Miligrams Monthly quantity needed: 30 How many day supply requestin days Medication route: oral (PO) Medication administration time(s): every 8 hours If taking medication PRN, reason for taking medication: Severe pain 7-10 If this is a controlled substance do you receive this or any other controlled medication from any other doctor or facility: No Ordering provider: Britta Trinidad Date of last office visit: 03.14.24 Date of next office visit: 05.31.24 Date of last refill: (see medication tab): 03.18.24 Updated/Validated preferred pharmacy: Yes Patient instructed to contact the pharmacy prior to picking up the medication: No [place] [address]on 04-05-2024 36 Reviewed chart. Refi ll appropriate. RX sent. [place] [address] Prescription Request : Last medication check: 01-11-24 Last physical exam: 03-14-24 Next scheduled appointment: 04-10-24 CSA on file (date): 01-11-24 Last urine drug screen: 02-03-23 Last date of refill on this medication 03-04-24 [place] [id number] 04-04-2024 36 Reviewed chart. Refi ll appropriate. RX sent. [place] [address] Prescription Request : Last medication check: 01/11/24 Last physical exam: 03/14/24 Next scheduled appointment: 04/10/24 Last date of refill on this medication: 09/08/[address] [facility] .Auto Diffon 03-31-2024 Basophil, Absolute 0.1 10 3/mcL Normal 0.0-0.2 [facility] Comment on above: Performed By: #### C BC, ANEU, VIDH, GFR, CMP, ADIFF #### [address] [address] Basophils/100 WBC (Bld) 0.6 % Normal 0.0-2.[address] [facility] Comment on above: Performed By: #### C BC, ANEU, VIDH, GFR, CMP, ADIFF #### [address] [address] Eosinophil, Absolute 0.0 10 3/mcL Normal 0.0-0.7 [facility] Comment on above: Performed By: #### C BC, ANEU, VIDH, GFR, CMP, ADIFF #### [address] [address] Eosinophils/100 WBC (Bld) 0.1 % Normal 0.0-7.0 [facility] Comment on above: Performed By: #### C BC, ANEU, VIDH, GFR, CMP, ADIFF #### [address] [address] Lymphocyte, Absolute 2.0 10 3/mcL Normal 0.9-4.3 [facility] Comment on above: Performed By: #### C BC, ANEU, VIDH, GFR, CMP, ADIFF #### [address] [address] Lymphocytes/100 WBC (Bld) 21.5 % Normal 20.0-40.0 [facility] Comment on above: Performed By: #### C BC, ANEU, VIDH, GFR, CMP, ADIFF #### [address] [address] Monocyte, Absolute 0.7 10 3/mcL Normal 0.1-1.4 [facility] Comment on above: Performed By: #### C BC, ANEU, VIDH, GFR, CMP, ADIFF #### [address] [address] Monocytes/100 WBC (Bld) 7.6 % Normal 2.0-13.[address] [facility] Comment on above: Performed By: #### C BC, ANEU, VIDH, GFR, CMP, ADIFF #### [address] [address] Neutrophils/100 WBC (Bld) 70.2 % Normal 50.0-75.0 [facility] Comment on above: Performed By: #### C BC, ANEU, VIDH, GFR, CMP, ADIFF #### [address] [address] .GFRon 03-31-2024 Estimated Glomerular Filtration Rate 96 ml/min/1.73sqm Normal [facility] Comment on above: Result Comment: Stages of Chronic Kidney Disease (CKD) Stage Description eGFR(ml/min/1.73 sq.m.) CKD 1 Normal kidney function or >=90 normal kindney function with possible kidney damage (ex. Proteinuria) CKD 2 Kidney damage with mild loss 60-89 of kidney function CKD 3a Mild to moderate loss of kidney 45-59 function CKD 3b Moderate to severe loss of 30-44 of kindey function CKD 4 Severe loss of kidney function 15-29 CKD 5 Kidney failure <15 Note: (go live 2024) the eGFR calculation was updated to the 2020 CKD-EPI creatinine equation without a race factor to calculate the eGFR results. Performed By: #### L IPID, PHOS, MG, TSH #### [address] [address] #### PTH #### [place] [address] .NEUABSon 03-31-2024 Neutrophil, Absolute 6.5 10 3/mcL Normal 2.3-8.1 [facility] Comment on above: Performed By: #### C BC, ANEU, VIDH, GFR, CMP, ADIFF #### [address] [address] .Urinalysis Microscopic (AO) on 03-31-2024 UA Bacteria 2+ /hpf Abnormal [facility] Comment on above: Performed By: #### L IPID, PHOS, MG, TSH #### [place] [address] #### PTH #### [place] [address] UA CA Ox Crystal 3+ /hpf Normal [facility] Comment on above: Performed By: #### L IPID, PHOS, MG, TSH #### [place] [address] #### PTH #### [place] [address] UA RBC None Seen Normal None Seen [facility] Comment on above: Performed By: #### L IPID, PHOS, MG, TSH #### [place] [address] #### PTH #### [place] [address] UA Squam Epithelial 0-5 Abnormal None Seen [facility] Comment on above: Performed By: #### L IPID, PHOS, MG, TSH #### [place] [address] #### PTH #### [place] [address] UA WBC 10-15 Abnormal None Seen [facility] Comment on above: Performed By: #### L IPID, PHOS, MG, TSH #### [place] [address] #### PTH #### [place] [address] CBCon 03-31-2024 Erythrocyte distribution width (RBC) [Ratio] 14.0 % Normal 11.5-15.5 [facility] Comment on above: Performed By: #### C BC, ANEU, VIDH, GFR, CMP, ADIFF #### [place] [address] Hematocrit (Bld) [Volume fraction] 39.7 % Normal 34.0-46.0 [facility] Comment on above: Performed By: #### C BC, ANEU, VIDH, GFR, CMP, ADIFF #### [place] [address] Hgb 13.6 G/dL Normal 12.0-16.0 [facility] Comment on above: Performed By: #### C BC, ANEU, VIDH, GFR, CMP, ADIFF #### [address] [address] MCH (RBC) [Entitic mass] 32.6 pg Normal 27.0-33.0 [facility] Comment on above: Performed By: #### C BC, ANEU, VIDH, GFR, CMP, ADIFF #### [address] [address] MCHC 34.3 G/dL Normal 32.0-36.0 [facility] Comment on above: Performed By: #### C BC, ANEU, VIDH, GFR, CMP, ADIFF #### [address] [address] MCV (RBC) [Entitic vol] 95.3 fL Normal 80.0-99.[address] [facility] Comment on above: Performed By: #### C BC, ANEU, VIDH, GFR, CMP, ADIFF #### [address] [address] Platelet 388 10 3/mcL Normal 150-450 [facility] Comment on above: Performed By: #### C BC, ANEU, VIDH, GFR, CMP, ADIFF #### [address] [address] Platelet mean volume (Bld) [Entitic vol] 7.4 fL Normal 6.6-10.5 [facility] Comment on above: Performed By: #### C BC, ANEU, VIDH, GFR, CMP, ADIFF #### [address] [address] RBC 4.16 10 6/mcL Normal 4.10-5.30 [facility] Comment on above: Performed By: #### C BC, ANEU, VIDH, GFR, CMP, ADIFF #### [address] [address] WBC 9.2 10 3/mcL Normal 4.5-10.8 [facility] Comment on above: Performed By: #### C BC, ANEU, VIDH, GFR, CMP, ADIFF #### [address] [address] CMPon 03-31-2024 Albumin Level 3.4 G/dL Low 3.5-5.0 [facility] Comment on above: Performed By: #### C BC, ANEU, VIDH, GFR, CMP, ADIFF #### [address] [address] Albumin/Globulin [Mass ratio] 0.8 {ratio} Low 1.1-2.5 [facility] Comment on above: Performed By: #### C BC, ANEU, VIDH, GFR, CMP, ADIFF #### [address] [address] ALP [Catalytic activity/Vol] 148 U/L High 40-135 [facility] Comment on above: Performed By: #### C BC, ANEU, VIDH, GFR, CMP, ADIFF #### [address] [address] ALT [Catalytic activity/Vol] 40 U/L Normal 14-59 [facility] Comment on above: Performed By: #### C BC, ANEU, VIDH, GFR, CMP, ADIFF #### [address] [address] AST [Catalytic activity/Vol] 34 U/L Normal 10-40 [facility] Comment on above: Performed By: #### C BC, ANEU, VIDH, GFR, CMP, ADIFF #### [address] [address] Bili Total 0.3 mg/dL Normal 0.2-1.0 [facility] Comment on above: Result Comment: Use of this assay is not recommended for patients undergoing treatment with eltrombopag due to the potential for falsely elevated results. Performed By: #### C BC, ANEU, VIDH, GFR, CMP, ADIFF #### [place] [address] BUN/Creatinine Ratio 15 ratio Normal 7-27 [facility] Comment on above: Performed By: #### C BC, ANEU, VIDH, GFR, CMP, ADIFF #### [place] [address] Calcium [Mass/Vol] 9.2 mg/dL Normal 8.4-10.2 [facility] Comment on above: Performed By: #### C BC, ANEU, VIDH, GFR, CMP, ADIFF #### [place] [address] Chloride [Moles/Vol] 102 mmol/L Normal 98-107 [facility] Comment on above: Performed By: #### C BC, ANEU, VIDH, GFR, CMP, ADIFF #### [place] [address] CO2 [Moles/Vol] 31 mmol/L High 22-29 [facility] Comment on above: Performed By: #### C BC, ANEU, VIDH, GFR, CMP, ADIFF #### [place] [address] Creatinine [Mass/Vol] 0.75 mg/dL Normal 0.55-1.02 [facility] Comment on above: Result Comment: Test ing performed on Siemens Dimension EXL analyzer using a modified kinetic Vahid technique. Performed By: #### C BC, ANEU, VIDH, GFR, CMP, ADIFF #### [place] [address] Electrolyte Balance 7.0 mEq/L Normal 4.0-15.0 [facility] Comment on above: Performed By: #### C BC, ANEU, VIDH, GFR, CMP, ADIFF #### [place] [address] Globulin 4.2 G/dL High 1.5-3.8 [facility] Comment on above: Performed By: #### C BC, ANEU, VIDH, GFR, CMP, ADIFF #### [place] [id number] Glucose [Mass/Vol] 94 mg/dL Normal 70-105 [facility] Comment on above: Performed By: #### C BC, ANEU, VIDH, GFR, CMP, ADIFF #### [address] [address] Potassium [Moles/Vol] 3.5 mmol/L Normal 3.5-5.1 [facility] Comment on above: Performed By: #### C BC, ANEU, VIDH, GFR, CMP, ADIFF #### [address] [address] Sodium [Moles/Vol] 140 mmol/L Normal 136-145 [facility] Comment on above: Performed By: #### C BC, ANEU, VIDH, GFR, CMP, ADIFF #### [address] [address] Total Protein 7.6 G/dL Normal 6.4-8.2 [facility] Comment on above: Performed By: #### C BC, ANEU, VIDH, GFR, CMP, ADIFF #### [address] [address] Urea nitrogen [Mass/Vol] 11 mg/dL Normal 7-18 [facility] Comment on above: Performed By: #### C BC, ANEU, VIDH, GFR, CMP, ADIFF #### [address] [address] LABORATORYOrdered By: Gadiel Martínez on 03-31-2024 Appearance (U) Slightly Cloudy *ABN* (03/31/24 9:42 AM) Invalid Interpretation Code Clear AO Auto Urine SS Bacteria LM.HPF (Urine sed) [#/Area] 2 /[HPF] Invalid Interpretation Code AO Auto Urine SS Bilirubin Ql (U) Negative (03/31/24 9:42 AM) Normal Negative AO Auto Urine SS Calcium oxalate crystals LM.HPF (Urine sed) [#/Area] 3 /[HPF] Normal AO A uto Urine SS Color (U) Yellow (03/31/24 9:42 AM) Normal AO Auto Urine SS Glucose Test strip (U) [Mass/Vol] Negative Normal Negative AO Auto Urine SS Hemoglobin Auto test strip (U) [Mass/Vol] Trace *ABN* (03/31/24 9:42 AM) Invalid Interpretation Code Negative AO Auto Urine SS Ketones Ql (U) Negative Normal Negative AO Auto Urine SS UA Leuk Est Small *ABN* (03/31/24 9:42 AM) Invalid Interpretation Code Negative AO Auto Urine SS UA Nitrite Negative (03/31/24 9:42 AM) Normal Negative AO Auto Urine SS UA pH 6.0 (03/31/24 9:42 AM) Normal 5.0 - 8.0 AO Auto Urine SS UA Protein Negative Normal Negative AO Auto Urine SS UA RBC None Seen /HPF Normal None Seen AO Auto Urine SS UA Spec Grav 1.020 (03/31/24 9:42 AM) Normal 1.015-1.02 5 AO Auto Urine SS UA Specimen Type Void (03/31/24 9:42 AM) Normal AO Auto Urine SS UA Squam Epithelial 0-5 /HPF Invalid Interpretation Code None Seen AO Auto Urine SS UA Urobilinogen 0.2 E.U./dL Normal 0.2-1.0 AO Auto Urine SS WBC LM.HPF (Urine sed) [#/Area] 10-15 /HPF Invalid Interpretation Code None Seen AO Auto Urine SS LABORATORYOrdered By: Sue Turner on 03-31-2024 Cholesterol [Mass/Vol] 183 mg/dL Normal 0 - 2 00 mg/dL AO ADM SS Comment on above: Interpretive Data: C holesterol Reference Interval: Less than 200 Desirable 200-239 Borderline high risk 240 and above High risk Cholesterol in HDL [Mass/Vol] 89 mg/dL High 40 - 60 mg/dL AO ADM SS Cholesterol in LDL [Mass/Vol] 82 mg/dL Normal 0 - 130 mg/dL AO ADM SS Triglyceride [Mass/Vol] 59 mg/dL Normal 0 - 150 mg/dL AO ADM SS Comment on above: Interpretive Data: T riglyceride Reference Interval: Less than 150 Normal 150-199 Borderline high risk 200-499 High risk 500 or higher Very high risk LABORATORYOrdered By: SYSTEM SYSTEM on 03-31-2024 Magnesium [Mass/Vol] 2.0 mg/dL Normal 1.8 - 2 .4 mg/dL AO ADM SS Parathyrin.intact [Mass/Vol] 65.0 pg/mL Normal 18.5 - 88.0 pg/mL AH ADM SS Phosphate [Mass/Vol] 3.3 mg/dL Normal 2.7 - 4 .5 mg/dL AO ADM SS TSH Qn 1.24 m[IU]/L Normal 0.36 - 3.74 mcIU/mL AO ADM SS 25-hydroxyvitamin D3 [Mass/Vol] 20.8 ng/mL Invalid Interpretation Code AO ADM SS Comment on above: Interpretive Data: I nterpretive Values Based on Total 25(OH) Vitamin D: Deficient <20 ng/mL Insufficient 20 - <30 ng/mL Sufficient 30-100 ng/mL Albumin BCP dye [Mass/Vol] 3.4 G/dL Low 3 .5 - 5.0 G/dL AO ADM SS Albumin/Globulin [Mass ratio] 0.8 {ratio} Low 1.1 - 2.5 ratio AO ADM SS ALP [Catalytic activity/Vol] 148 U/L High 40 - 135 U/L AO ADM SS ALT With P-5'-P [Catalytic activity/Vol] 40 U/L Normal 14 - 59 U/L AO ADM SS AST With P-5'-P [Catalytic activity/Vol] 34 U/L Normal 10 - 40 U/L AO ADM SS Basophils (Bld) [#/Vol] 0.1 103/mcL Normal 0.0 - 0.2 10^3/mcL AO Workflow SS Basophils/100 WBC (Bld) 0.6 % Normal 0.0 - 2.5 % AO Workflow SS Bilirubin [Mass/Vol] 0.3 mg/dL Normal 0.2 - 1 .0 mg/dL AO ADM SS Comment on above: Interpretive Data: U se of this assay is not recommended for patients undergoing treatment with eltrombopag due to the potential for falsely elevated results. Calcium [Mass/Vol] 9.2 mg/dL Normal 8.4 - 10. 2 mg/dL AO ADM SS Chloride [Moles/Vol] 102 mmol/L Normal 98 - 10 7 mmol/L AO ADM SS CO2 [Moles/Vol] 31 mmol/L High 22 - 29 mmol/L AO ADM SS Creatinine [Mass/Vol] 0.75 mg/dL Normal 0.55 - 1.02 mg/dL AO ADM SS Comment on above: Interpretive Data: T esting performed on Siemens Dimension EXL analyzer using a modified kinetic Vahid technique. Electrolyte Balance 7.0 mEq/L Normal 4.0 - 15 .0 mEq/L AO ADM SS Eosinophil, Absolute 0.0 103/mcL Normal 0.0 - 0 .7 10^3/mcL AO Workflow SS Eosinophils/100 WBC (Bld) 0.1 % Normal 0. 0 - 7.0 % AO Workflow SS Erythrocyte distribution width (RBC) [Ratio] 14.0 % Normal 11.5 - 15.5 % AO Workflow SS Estimated Glomerular Filtration Rate 96 ml/min/1.73sqm Invalid Interpretation Code AO Chemistry S Comment on above: Interpretive Data: Stages of Chronic Kidney Disease (CKD) Stage Description eGFR(ml/min/1.73 sq.m.) CKD 1 Normal kidney function or >=90 normal kindney function with possible kidney damage (ex. Proteinuria) CKD 2 Kidney damage with mild loss 60-89 of kidney function CKD 3a Mild to moderate loss of kidney 45-59 function CKD 3b Moderate to severe loss of 30-44 of kindey function CKD 4 Severe loss of kidney function 15-29 CKD 5 Kidney failure <15 Note: (go live 2024) the eGFR calculation was updated to the 2020 CKD-EPI creatinine equation without a race factor to calculate the eGFR results. Globulin 4.2 G/dL High 1.5 - 3.8 G/dL AO ADM SS Glucose [Mass/Vol] 94 mg/dL Normal 70 - 105 mg/dL AO ADM SS Hematocrit (Bld) [Volume fraction] 39.7 % Normal 34.0 - 46.0 % AO Workflow SS Hemoglobin (Bld) [Mass/Vol] 13.6 G/dL Normal 12.0 - 16.0 G/dL AO Workflow SS Lymphocytes (Bld) [#/Vol] 2.0 103/mcL Normal 0. 9 - 4.3 10^3/mcL AO Workflow SS Lymphocytes/100 WBC (Bld) 21.5 % Normal 20 .0 - 40.0 % AO Workflow SS MCH (RBC) [Entitic mass] 32.6 pg Normal 27. 0 - 33.0 pg AO Workflow SS MCHC 34.3 G/dL Normal 32.0 - 36.0 G/dL AO Workflow SS MCV (RBC) [Entitic vol] 95.3 fL Normal 80.0 - 99.0 fL AO Workflow SS Monocytes (Bld) [#/Vol] 0.7 103/mcL Normal 0.1 - 1.4 10^3/mcL AO Workflow SS Monocytes/100 WBC (Bld) 7.6 % Normal 2.0 - 13.0 % AO Workflow SS Neutrophils (Bld) [#/Vol] 6.5 103/mcL Normal 2. 3 - 8.1 10^3/mcL AO Workflow SS Neutrophils/100 WBC (Bld) 70.2 % Normal 50 .0 - 75.0 % AO Workflow SS Platelet mean volume (Bld) [Entitic vol] 7.4 fL Normal 6.6 - 10.5 fL AO Workflow SS Platelets (Bld) [#/Vol] 388 103/mcL Normal 150 - 450 10^3/mcL AO Workflow SS Potassium [Moles/Vol] 3.5 mmol/L Normal 3.5 - 5.1 mmol/L AO ADM SS Protein [Mass/Vol] 7.6 G/dL Normal 6.4 - 8.2 G/dL AO ADM SS RBC (Bld) [#/Vol] 4.16 106/mcL Normal 4.10 - 5.30 10^6/mcL AO Workflow SS Sodium [Moles/Vol] 140 mmol/L Normal 136 - 145 mmol/L AO ADM SS Urea nitrogen [Mass/Vol] 11 mg/dL Normal 7 - 18 mg/dL AO ADM SS Urea nitrogen/Creatinine [Mass ratio] 15 ratio Normal 7 - 27 ratio AO ADM SS WBC (Bld) [#/Vol] 9.2 103/mcL Normal 4.5 - 10.8 10^3/mcL AO Workflow SS LIPIDon 03-31-2024 Cholesterol [Mass/Vol] 183 mg/dL Normal 0-200 [facility] Comment on above: Result Comment: Chol esterol Reference Interval: Less than 200 Desirable 200-239 Borderline high risk 240 and above High risk Performed By: #### L IPID, PHOS, MG, TSH #### [address] [address] #### PTH #### [address] [address] Cholesterol in HDL [Mass/Vol] 89 mg/dL High 40-60 [facility] Comment on above: Performed By: #### L IPID, PHOS, MG, TSH #### [address] [address] #### PTH #### [address] [address] Cholesterol in LDL [Mass/Vol] 82 mg/dL Normal 0-130 [facility] Comment on above: Performed By: #### L IPID, PHOS, MG, TSH #### [place] [address] #### PTH #### [place] [address] Triglyceride [Mass/Vol] 59 mg/dL Normal 0-150 [facility] Comment on above: Result Comment: Trig lyceride Reference Interval: Less than 150 Normal 150-199 Borderline high risk 200-499 High risk 500 or higher Very high risk Performed By: #### L IPID, PHOS, MG, TSH #### [place] [address] #### PTH #### [place] [address] MGon 03-31-2024 Magnesium [Mass/Vol] 2.0 mg/dL Normal 1.8-2.4 [facility] Comment on above: Performed By: #### L IPID, PHOS, MG, TSH #### [place] [address] #### PTH #### [place] [address] PHOSon 03-31-2024 Phosphate [Mass/Vol] 3.3 mg/dL Normal 2.7-4.5 [facility] Comment on above: Performed By: #### L IPID, PHOS, MG, TSH #### [place] [address] #### PTH #### [place] [address] PTHon 03-31-2024 PTH, Intact 65.0 pg/mL Normal 18.5-88.0 [facility] Comment on above: Performed By: #### L IPID, PHOS, MG, TSH #### [place] [address] #### PTH #### [place] [address] TSHon 03-31-2024 TSH Qn 1.24 m[IU]/L Normal 0.36-3.74 [facility] Comment on above: Performed By: #### L IPID, PHOS, MG, TSH #### [place] [address] #### PTH #### [place] [address] UAon 03-31-2024 Color (U) Yellow Normal [facility] Comment on above: Performed By: #### L IPID, PHOS, MG, TSH #### [place] [address] #### PTH #### [place] [address] Glucose (U) [Mass/Vol] Negative Normal Negative [facility] Comment on above: Performed By: #### L IPID, PHOS, MG, TSH #### [place] [address] #### PTH #### [place] [address] Ketones Ql (U) Negative Normal Negative [facility] Comment on above: Performed By: #### L IPID, PHOS, MG, TSH #### [place] [address] #### PTH #### [place] [address] UA Appear Slightly Cloudy Abnormal Clear [facility] Comment on above: Performed By: #### L IPID, PHOS, MG, TSH #### [place] [address] #### PTH #### [place] [address] UA Blood Trace Abnormal Negative [facility] Comment on above: Performed By: #### L IPID, PHOS, MG, TSH #### [place] [address] #### PTH #### [place] [address] UA Leuk Est Small Abnormal Negative [facility] Comment on above: Performed By: #### L IPID, PHOS, MG, TSH #### [place] [address] #### PTH #### [place] [address] UA Nitrite Negative Normal Negative [facility] Comment on above: Performed By: #### L IPID, PHOS, MG, TSH #### [place] [address] #### PTH #### [place] [address] UA pH 6.0 Normal 5.0 - 8.0 [facility] Comment on above: Performed By: #### L IPID, PHOS, MG, TSH #### [place] [address] #### PTH #### [place] [address] UA Protein Negative Normal Negative [facility] Comment on above: Performed By: #### L IPID, PHOS, MG, TSH #### [place] [address] #### PTH #### [place] [address] UA Spec Grav 1.020 Normal 1.015-1.02 5 [facility] Comment on above: Performed By: #### L IPID, PHOS, MG, TSH #### [place] [address] #### PTH #### [place] [address] UA Specimen Type Void Normal [facility] Comment on above: Performed By: #### L IPID, PHOS, MG, TSH #### [place] [address] #### PTH #### [address] [address] UA Urobilinogen 0.2 E.U./dL Normal 0.2-1.0 [facility] Comment on above: Performed By: #### L IPID, PHOS, MG, TSH #### [address] [address] #### PTH #### [place] [address] Urobilinogen (U) [Mass/Vol] Negative Normal Negative [facility] Comment on above: Performed By: #### L IPID, PHOS, MG, TSH #### [address] [address] #### PTH #### [address] [address] VIDHon 03-31-2024 Vit. D 25-Hydroxy 20.8 ng/mL Normal [facility] Comment on above: Result Comment: Inte rpretive Values Based on Total 25(OH) Vitamin D: Deficient <20 ng/mL Insufficient 20 - <30 ng/mL Sufficient 30-100 ng/mL Performed By: #### L IPID, PHOS, MG, TSH #### [address] [address] #### PTH #### [address] [address] 36on 03-23-2024 36 (2nd attempt) Called today to schedule screening colonoscopy (surveillance program) Left message to call the screening program at [phone] 1st attempt my chart message sent. Normal [facility] 3603-17-2024 36 MyChart message sent to have patient call screening program if still interested in scheduling a screening colonoscopy. [facility] 03-14-2024 37 [facility] NEED TO FAX ALL ORDERS OVER WANTS DONE THERE. FAX # TO SEND ORDERS TO IS [phone] 1.) Call Gastroenterology to schedule appointment at [phone] they will get you scheduled for a colonoscopy. 2.) Orders will all be faxed to [facility] you will need to call them to schedule at [phone] ----Mammogram,Lung CT, DEXA Scan/Bone Density--- 3.) Any vaccines, you will need to have completed at the health Dept. 4.) Schedule for Well Female exam. Personalized Preventative Plan for [place] - 03/14/2024 Medicare offers a range of preventative health benefits. Some of the tests and screenings are paid in full while others may be subject to a deductible, co-insurance, and / or copay. Some of these benefits include a comprehensive review of your medical history including lifestyle, illnesses that may run in your family, and various assessments and screenings as appropriate. After reviewing your medical record and screening and assessments performed today, your provider may have ordered immunizations, labs, imaging, and / or referrals for you. A list of these orders (if applicable) as well as your Preventative Care list are included within your After Visit Summary for your review. Other Preventative Recommendations: A preventive eye exam by an client engagement specialist is recommended every 1-2 years to screen for glaucoma, cataracts, macular degeneration, and other eye disorders. A preventive dental visit is recommended every 6 months. Try to get at least 150 minutes of exercise per week or 10,000 steps per day on a pedometer. You need 1200-1500mg of calcium and 0260-0608 international units of vitamin D per day. It is possible to meet your calcium requirement with diet alone, but a vitamin D supplement is usually necessary to meet this goal. When exposed to the sun, use a sunscreen that protects against both UVA and UVB radiation with an SPF of 30 or greater. Reapply every 2-3 hours or after sweating, drying off with a towel, or swimming. Always wear a seat belt when traveling in a car. Always wear a helmet when riding a bicycle or a motorcycle Normal [facility] Office Visiton 03-14-2024 Follow-up visit [id number] Irvin Moncada 1970 F Date Provider Department Center 03/14[facility]2024 [facility] Family History Problem Relation Age of Onset Arthritis Mother Diabetes Mother Hyperlipidemia Mother Kidney disease Mother Cirrhosis Father Alcohol abuse Father Family Status - Relation Status Age at Mother Father Level of Service:G0438 [place] PPPS, INITIAL VISIT Reason for Visit and Comments: Medicare Annual Wellness Visit Subsequent [677] Health Maintenance [872] - ?HIV Screening-DECLINED ?Colorectal Cancer Screening-PENDED LAST REF CLOSED ?Diabetes Screening-ORDERS IN ?DTaP/Tdap/Td Vaccines -DECLINED ?Hepatitis B Vaccines-DECLINED ?Cervical Cancer Screening-NEEDS SCHEDULED ?Zoster Vaccines-declined ?Lung Cancer Screening-pended ?Bone Density Scan-orders in advised to schedule EXP 08/11/24 ?Medicare Advantage Annual Wellness Visit-today ?Mammogram-orders in advised to schedule EXP 01/02/2025 ?Medicare Annual Wellness (AWV) -today [facility] Normal [facility] Progress Noteon 03-14-2024 Progress Note Symptoms well-controlled on Lunesta 3 mg nightly. Continue current medication. Normal [facility] Progress Note Condition stable. Normal [facility] Progress Note Stable. Continue current medications. Normal [facility] Progress Note Obtain labs previous ly ordered by osteoporosis clinic Normal [facility] Progress Note Controlled. Continue atorvastatin 20 mg nightly Normal [facility] Progress Note Controlled. Blood pressure 133/79. Continue amlodipine 5 mg daily Normal [facility] Progress Note Stable. Has been evaluated by Dr. Benson rheumatology. Stable condition no rheumatological interventions indicated Normal [facility] Progress Note History of vitamin D deficiency, check vitamin D level Normal [facility] Progress Note Continue Percocet 5- 3 25 every 8 hours as needed for severe pain. OARRS reviewed and consistent with treatment plan. CS MA is in place. Patient is currently trying to get established with [facility] pain management and is waiting for their reply after sending in their forms about 3 weeks ago. 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 Normal [facility] Progress Note Patient was identifi ed by name and Date of . Health Maintenance Due Topic HIV Screening-DECLINED Colorectal Cancer Screening-PENDED LAST REF CLOSED Diabetes Screening-ORDERS IN DTaP/Tdap/Td Vaccines -DECLINED Hepatitis B Vaccines-DECLINED Cervical Cancer Screening-NEEDS SCHEDULED Zoster Vaccines-declined Lung Cancer Screening-pended Bone Density Scan-orders in advised to schedule EXP 08/11/24 Medicare Advantage Annual Wellness Visit-today Mammogram-orders in advised to schedule EXP 01/02/2025 Medicare Annual Wellness (AWV) -today [facility] NEED TO FAX ALL ORDERS OVER WANTS DONE THERE. FAX # TO SEND ORDERS TO IS [phone] 1.) Call Gastroenterology to schedule appointment--they will get you scheduled for a colonoscopy. 2.) Orders will all be faxed to [facility] you will need to call them to schedule at [phone] ----Mammogram,Lung CT, DEXA Scan/Bone Density--- 3.) Any vaccines, you will need to have completed at the health Dept. 4.) Schedule for Well Female exam. Administrations This Visit triamcinolone acetonide (Kenalog-40) injection 80 mg Admin Date 03/14/2024 Action Given Dose 80 mg Route IntraMUSCular Documented By Korin Mack Patient was identified by name and Date Of . After obtaining informed consent, injection for Kenalog 80 mg was ordered by provider. Information given to the patient and or Family/Guardian with signs and symptoms of adverse effects and when to seek medical attention. Site was cleansed with an alcohol swab, injection was given, and bandage(s) were applied to injection site. Patient tolerated well, advised patient and or Family/Guardian to stay in the office 20 minutes after injection has been given to observe for any reaction. Injection was given by Korin Mack MA in right dorsogluteal. Normal [facility] Progress Note [facility] - [address] [address] Dept: [phone] Dept Chief Complaint: Paris Moncada is an 53 y.o. female here for an annual wellness visit. Assessment/Plan : Problem List Items Addressed This Visit Linear scleroderma Condition stable. Chronic back pain Stable. Continue current medications. Relevant Medications tiZANidine (Zanaflex) 4 MG tablet triamcinolone acetonide (Kenalog-40) injection 80 mg (Completed) Osteopetrosis Obtain labs previously ordered by osteoporosis clinic Relevant Orders TSH Phosphorus Magnesium PTH, intact Chronic pain syndrome Continue Percocet 5-3 25 every 8 hours as needed for severe pain. OARRS reviewed and consistent with treatment plan. CS MA is in place. Patient is currently trying to get established with [facility] pain management and is waiting for their reply after sending in their forms about 3 weeks ago. Relevant Medications oxyCODONE-acetaminophe n (Percocet) 5-325 MG tablet (Start on 03/18/2024) Irritable bowel syndrome Stable. Referral made to gastroenterology, patient due for colon cancer screening Hypercholesterolemia Controlled. Continue atorvastatin 20 mg nightly Relevant Orders Lipid panel Hypertension Controlled. Blood pressure 133/79. Continue amlodipine 5 mg daily Relevant Orders Lipid panel TSH Comprehensive metabolic panel Insomnia Symptoms well-controlled on Lunesta 3 mg nightly. Continue current medication. Systemic sclerosis (HCC) Stable. Has been evaluated by Dr. Benson rheumatology. Stable condition no rheumatological interventions indicated Vitamin D deficiency History of vitamin D deficiency, check vitamin D level Relevant Orders Vitamin D Deficiency Screening (Vit D 25) Uncomplicated opioid dependence (HCC) Continue Percocet 5-325 mg every 8 hours as needed for severe pain. OARRS reviewed and consistent with treatment plan CS MA is in place Abnormal mammography Due to her linear scleroderma, needs to have ultrasound of the left breast for breast cancer screening. Relevant Orders Left breast US limited Other Visit Diagnoses Routine general medical examination at health care facility - Primary Colon cancer screening Relevant Orders [facility] [place] Screening for deficiency anemia Relevant Orders CBC auto differential Encounter for screening mammogram for malignant neoplasm of breast I have reviewed and reconciled the medication list with the patient today. Current Outpatient Medications Medication Sig Dispense Refill amitriptyline (Elavil) 50 MG tablet Take 1 tablet (50 mg) by mouth Nightly. 90 tablet 1 amLODIPine (Norvasc) 5 MG tablet Take 1 tablet (5 mg) by mouth daily. 90 tablet 1 atorvastatin (Lipitor) 20 MG tablet take 1 tablet by mouth nightly 90 tablet 1 choline fenofibrate (Trilipix) [address] capsule Take by mouth. dexlansoprazole (Dexilant) [address] capsule take 1 capsule by mouth once daily 90 capsule 1 eszopiclone (Lunesta) 3 MG tablet Take 1 tablet (3 mg) by mouth Nightly as needed for sleep. Take immediately before bedtime Do not start before March 04, 2024. 30 tablet 0 naloxone (Narcan) 4 mg/0.1 mL nasal spray ADMINISTER A SINGLE spray INTO ONE NOSTRIL repeat in 3 MINUTES IF... (REFER TO PRESCRIPTION NOTES). nystatin (Mycostatin) 582800 UNIT/GM powder Apply topically 3 times daily. 60 g 1 [START ON 03/18/2024] oxyCODONE-acetaminophe n (Percocet) 5-325 MG tablet Take 1 tablet by mouth every 8 hours as needed for severe pain (7-10). Do not start before March 18, 2024. 90 tablet 0 tiZANidine (Zanaflex) 4 MG tablet Take 1 tablet at bedtime as needed for muscle spasms 90 tablet 1 No current facility-administered medications for this visit. Also reviewed during this visit: Chronic back pain-patient currently on Percocet 5-325 mg every 8 hours for her pain, also uses medical marijuana. In addition to Tylenol. Majority of her pain is arthritic in the right hip lower back and shoulder. Patient states she did reach out to [facility] pain management and sent the information they needed to them about 3 weeks ago and is waiting for them to call to schedule. They were recommended by the lavender farm worker Dr. Benson. Last visit we gave her a Kenalog injection which she says helped quite a bit with her back pain and is requesting another injection today. She uses the tizanidine 4 mg at bedtime as needed for muscle spasms. Insomnia-reports sleep is good with Lunesta 3 mg nightly. Did not tolerate adjustment in dosing. Osteopetrosis-patient was seen by osteoporosis clinic last year and needs to get some labs done for further evaluation. IBS-patient has waxing waning constipation diarrhea. Is due for her colonoscopy. Hyperlipidemia-due for cholesterol levels checked. Is taking atorvastatin 20 mg nightly, denies any adverse effects of t (more content not included)... Normal [facility] 36on 03-02-2024 36 CSA 01/11/[address] [facility] 36 Ordering provider: Brad Goodman Date of last office visit: 01/11/2024 Date of next office visit: 03/14/2024 Updated/Validated preferred pharmacy: Yes Patient instructed to contact the pharmacy prior to picking up the medication: No (1) Medication name: tiZANidine (Zanaflex) 4 MG tablet Medication dosage: 4 mg (Miligrams Monthly quantity needed: 30 How many day supply requestin days Medication route: oral (PO) Medication administration time(s): TAKE 2 TABLETS BY MOUTH AT BEDTIME IF NEEDED If taking medication PRN, reason for taking medication: N/A If this is a controlled substance do you receive this or any other controlled medication from any other doctor or facility: No Date of last refill (see medication tab): 02/07/2024 (2) Medication name: eszopiclone (Lunesta) 3 MG tablet Medication dosage: 3 mg (Miligrams Monthly quantity needed: 30 How many day supply requestin days Medication route: oral (PO) Medication administration time(s): bedtime (HS) If taking medication PRN, reason for taking medication: N/A If this is a controlled substance do you receive this or any other controlled medication from any other doctor or facility: No Date of last refill (see medication tab): 02/03/2024 [place] [id number] 02-28-2024 36 Orders cancelled [place] [address] Ok to cancel [place] [address] As of today, 02/28/24 , pt has not scheduled for a CT-Lung Screen. Okay to cancel orders as they will close on 03/04/24 due to being . [place] [address] 02-17-2024 36 12/09/23 rfp Hollye t CSA - 12/07/2024 [place] [address] Medication name: The patient does not have an appointment with pain management. She mailed the paperwork to them on 02-14-2024. She is waiting to here from them after they receive her records from her previous pain management. The patient will be out of medication on Wednesday evening ). The patient is requesting a call back about the below medication. Please advise. oxyCODONE-acetaminophe n (Percocet) 5-325 MG tablet - Take 1 tablet by mouth every 8 hours as needed for severe pain (7-10) for up to 10 days. Medication dosage: 5-325 mg mg (Miligrams Monthly quantity needed: 90 How many day supply requestin days Medication route: oral (PO) Medication administration time(s): every 8 hours If taking medication PRN, reason for taking medication: Take 1 tablet by mouth every 8 hours as needed for severe pain (7-10) for up to 10 days. If this is a controlled substance do you receive this or any other controlled medication from any other doctor or facility: No Ordering provider: Dr. Goodman Date of last office visit: 01-11-2024 Date of next office visit: 03-02-2024 Date of last refill: (see medication tab): 02-03-2024 Updated/Validated preferred pharmacy: Yes Patient instructed to contact the pharmacy prior to picking up the medication: Yes [facility] 36 02-07-2024 36 Prescription Request : Last medication check: 01/11/24 Last physical exam: 03/04/23 Next scheduled appointment: 03/02/24 Last date of refill on this medication 12/30/23 30 tablets [address] 02-03-2024 36 Rx sent, OARRS repor t done, no inconsistencies, CS agreement in place [facility] 36 Rx sent, OARRS repor t done, no inconsistencies, CS agreement in place [address] 02-01-2024 36 Prescription Request : Last medication check: 01/11/2024 Last physical exam: 03/04/2023 Next scheduled appointment: 03/02/2024 CSA on file (date): 01/11/2024 Last urine drug screen: none Last date of refill on this medication: 01/08/[address] [facility] 36 Prescription Request : Last medication check: 01/11/2024 Last physical exam: 03/04/2023 Next scheduled appointment: 03/02/2024 CSA on file (date): 12/09/2023 Last urine drug screen: none Last date of refill on this medication: 01/08/[address] [facility] Emergency Department Summary on 01-22-2024 Emergency Department Summary [facility] Medical Records Department [address] [place] [address] Emergency Department Summary 01/22/24 MR#: [id number] Acct: [id number] Name: PARIS MONCADA Rep #: [id number] : 1970 53 From: Song Hampton DO PCP: Britta Trinidad Status:DEP ER Location: ED HPI History of Present Illness Chief Complaint: Abscess Informant: patient Narrative Narrative: 53-year-old female with a history of scleroderma and MRSA presenting to the emergency room out of concern for abscess of the left axilla. Patient noted yesterday and today she has developed a tender red spot. She denies any fevers. She notes that she is chronically on pain medicine already. [facility] Medical History Left rotator cuff tear arthropathy Vitamin D deficiency Soft tissue mass Right hip pain Osteoporosis Muscle spasms of both lower extremities Insomnia Golfers elbow of right upper extremity Depression with anxiety Carpal tunnel syndrome Blindness of left eye B12 deficiency Acid reflux High cholesterol Scleroderma History of chronic pain Home Medications ???Medication ???Instructions ???Recorded ???Last Taken ???Type amitriptyline 50 mg tablet 50 mg PO QHS 12/10/21 Unknown History atorvastatin 20 mg tablet 20 mg PO QHS 12/10/21 Unknown History dexlansoprazole 60 mg 60 mg PO DAILY 12/10/21 Unknown History capsule,biphase delayed release eszopiclone 3 mg tablet 3 mg PO QHS 12/10/21 Unknown History cetirizine 10 mg capsule (Zyrtec) 10 mg PO DAILY PRN PRN allergies 03/04/22 Unknown History cholecalciferol (vitamin D3) 1,250 1,250 mcg PO QWEEK 03/04/22 Unknown History mcg (50,000 unit) capsule fenofibric acid (choline) 45 mg 45 mg PO DAILY 03/04/22 Unknown History capsule,delayed release oxycodone-acetaminophe n 5 mg-325 1 tab PO TID PRN 05/12/23 Unknown History mg tablet Allergy/AdvReac Type Severity Reaction Status Date / Time duloxetine (From Cymbalta) Allergy Chest Verified 12/07/23 15:49 tightness trazodone Allergy Chest Verified 12/07/23 15:49 tightness tramadol AdvReac Other Verified 12/07/23 15:49 Family History Aunt Cancer lung Mother Diabetes Surgical History History of carpal tunnel surgery H/O eye surgery Hx of right knee surgery Social History household members: other details: step dad Smoking Status: Current every day smoker tobacco type: cigarettes alcohol intake: never substance use type: does not use what type of physical activity do you participate in: other details: stretches frequency: daily ROS ROS ED Constitutional Constitutional ED: Denies chills, fever(s) or weight loss Eyes Eyes: Denies change in vision or diplopia ENT ENT ED: Denies ear pain, rhinorrhea or sore throat Cardiovascular Cardiovascular: Denies chest pain, orthopnea, palpitations or racing heartbeat Respiratory/Chest Respiratory/Chest: Denies cough, dyspnea or orthopnea Gastrointestinal Gastrointestinal: Denies abdominal pain, diarrhea, nausea or vomiting Genitourinary Genitourinary ED: Denies dysuria, hematuria or urinary frequency Musculoskeletal Musculoskeletal: Denies arthralgias or myalgias Integumentary Reports rash; Denies abscess Neurologic Neurologic: Denies headache(s) or weakness Psychiatric Psychiatric: Denies anxiety, depression, suicidal ideation or suicidal thoughts Endocrine Endocrinology: Denies polydipsia, polyphagia or polyuria Allergic/Immunologic Allergic/Immunologic ED: Denies mouth swelling, tongue swelling or urticaria EXAM Physical Exam Const Vital Signs: 01/22/24 10:21 Temperature 98.4 F Temperature Source Oral Pulse Rate 91 Respiratory Rate 18 Blood Pressure 167/78 H Blood Pressure Mean 107 Pulse Ox 98 Oxygen Delivery Method Room Air Positive well nourished and well developed General Appearance ED: well developed and NAD HEENT Reports normocephalic, head/scalp atraumatic and moist mucous membranes Eyes PERRL and EOMs intact bilaterally Neck no lymphadenopathy, supple and no JVD Resp normal respiratory effort and clear to auscultation bilaterally Cardio regular rate, regular rhythm and no murmurs GI normal to inspection, nondistended, normoactive bowel sounds and non-tender Palpation: soft Back/Spine no CVA tenderness and normal ROM Extremity Extremity Narrative: Left axilla demonstrates a 2 cm area of erythema. There is a small area of induration in the center of it. I do not appreciate fluctuance. Left arm demonstrates chronic changes. General Extremety ED: Negative for edema Genera (more content not included)... Normal [facility] 37on 01-11-2024 37 Please reach out to Dr. Benson to see what painting manager it was that she recommended for you. [phone] [facility] Office Visiton 01-11-2024 Follow-up visit [id number] Irvin Moncada 1970 F Date Provider Department Center 01/11/2024 [id number] TRINIDAD [facility] Family History Problem Relation Age of Onset Arthritis Mother Diabetes Mother Hyperlipidemia Mother Kidney disease Mother Cirrhosis Father Alcohol abuse Father Family Status - Relation Status Age at Mother Father Level of Service:12957 [place] OFFICE/OUTPATIENT ESTABLISHED MOD MDM 30 MIN Reason for Visit and Comments: Follow-up [925667] [facility] Progress Noteon 01-11-2024 Progress Note Within the breast folds. Keep area clean and dry and apply nystatin twice daily until clears. Follow-up for worsening or failure for symptoms to improve [facility] Progress Note MRI showing soft tissue thickening without other concerning findings. Continue to monitor [facility] Progress Note Patient did not have significant improvement with physical therapy. We will give Kenalog injection IM to see if this helps with her pain. Normal [facility] Progress Note 01/11/2024 Paris Moncada (: 1970) is a 53 y.o. female , Established patient, here for evaluation of the following chief complaint(s): Follow-up ASSESSMENT/PLAN: 1. Chronic pain syndrome Assessment & Plan: Continue Percocet 5-3 25 every 8 hours as needed for severe pain. OARRS reviewed and consistent with treatment plan. MA is in place. Patient is to reach out to lavender farm worker to see what pain management doctor was recommended. 2. Bulging lumbar disc Assessment & Plan: Patient did not have significant improvement with physical therapy. We will give Kenalog injection IM to see if this helps with her pain. 3. Yeast dermatitis Assessment & Plan: Within the breast folds. Keep area clean and dry and apply nystatin twice daily until clears. Follow-up for worsening or failure for symptoms to improve Orders: - nystatin (Mycostatin) [id number] UNIT/GM powder; Apply topically 3 times daily., Starting Wed01/11/2024, Until Wed01/10/2025, Normal 4. Chronic right-sided low back pain without sciatica - triamcinolone acetonide (Kenalog-40) injection 80 mg; 80 mg, IntraMUSCular, Once, On Wed01/11/24 at 1600, For 1 dose 5. Mass on back Assessment & Plan: MRI showing soft tissue thickening without other concerning findings. Continue to monitor Follow up for 3 month [facility]. SUBJECTIVE/OBJECTIVE: [place] - Paris Moncada (: 1970) is a 53 y.o. female , Established patient, here for the evaluation of the following chief complaint(s): Follow-up Presents for follow-up chronic pain. Has been seen by lavender farm worker-Dr. Benson. Marketing And Promotions Manager did recommend a specific painting manager but we are unsure of whom the recommendation was for. Currently she is taking Percocet 5 mg every 8 hours. Tizanidine 4 mg, amitriptyline 50 mg at bedtime. She has not tolerated pain injections in the past other than steroid injection in the right shoulder and occasional trigger point injection. She does use medical marijuana at night and sometimes on the weekends to help with her IBS symptoms. She has been having increased right lower back pain and has an area of the soft tissue mass that seems to be bothersome. MRI in June showed some right sided disc bulging at L5-S1 that may be contributing to the area of pain. She did do some physical therapy without much relief. Is doing ok, increased stress regarding mom getting dx with a brain tumor. Is helping her at home. Uncle is recently on hospice. 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 She is requesting an increase of her Percocet. Patient was advised that I am unable to increase her pain medication and that we need to get her to a painting manager that we will manage her pain for her. We did try to wean her down on the Lunesta, however she was unable to due to difficulty sleeping. She did not tolerate higher doses of amitriptyline and was unable to tolerate Cymbalta in the past. Prior to Admission medications Medication Sig Start Date End Date Taking? Authorizing Provider amitriptyline (Elavil) 50 MG tablet Take 1 tablet (50 mg) by mouth Nightly. 12/23/23 Yes Britta Bridenthal, [employer] N[employer]SE amLODIPine (Norvasc) 5 MG tablet Take 1 tablet (5 mg) by mouth daily. 11/03/23 11/24/24 Yes Britta Trudy [employer] atorvastatin (Lipitor) 20 MG tablet take 1 tablet by mouth nightly 09/08/23 Yes Brittamarkus Trinidad, [employer] HEALTH NURSE choline fenofibrate (Trilipix) [address] capsule Take by mouth. 11/24/21 Yes Historical Provider, dexlansoprazole (Dexilant) [address] capsule take 1 capsule by mouth once daily 07/26/23 Yes Brittamarkus Trinidad, [employer] eszopiclone (Lunesta) 3 MG tablet Take 1 tablet (3 mg) by mouth Nightly as needed for sleep. Take immediately before bedtime 01/07/24 02/06/24 Yes Juancho Goodman MD naloxone (Narcan) 4 mg/0.1 mL nasal spray ADMINISTER A SINGLE spray INTO ONE NOSTRIL repeat in 3 MINUTES IF... (REFER TO PRESCRIPTION NOTES). 03/04/23 Yes Historical Provider, oxyCODONE-acetaminophe n (Percocet) 5-325 MG tablet Take 1 tablet by mouth every 8 hours as needed for severe pain (7-10). Do not start before January 08, 2024. 01/08/24 02/07/24 Yes Brittamarkus Trinidad, [employer]EE HE[employer] NURSE tiZANidine (Zanaflex) 4 MG tablet take 2 tablets by mouth at bedtime if needed 12/30/23 Yes Britta Trudy, [employer] G[employer]ISON eszopiclone (Lunesta) 3 MG tablet Take 1 tablet (3 mg) by mouth Nightly as needed for sleep. Take immediately before bedtime 11/27/23 01/07/24 Brittamarkus Trinidad [employer] HE[employer] NURSE Review of Systems Constitutional: Negative. Negative for activity change, chills, fatigue and fever. HENT: Negative. Respiratory: Negative. Cardiovascular: Negative. Gastrointestinal: Negative for abdominal pain, blood in stool, nausea and vomiting. Alternates between constipaton and loose stools- IBS Genitourinary: Negative for difficulty urinating. Musculoskeletal: Positive for back pain and gait problem. N (more content not included)... Normal [facility] Progress Note Patient was identifi ed by name and Date of . [address] 01-07-2024 36 Please have her sign at visit on Wednesday. Thanks! [place] [address] Rx sent, OARRS repor t done, no inconsistencies, CS agreement is out of date she needs to sign a new one before we refill the next prescription. [facility] 36 [facility] 11/24/22 [place] [address] Patient stated that they only have 1 tablet left. Medication name: eszopiclone (Lunesta) 3 MG tablet Medication dosage: 3 mg (Miligrams Monthly quantity needed: 30 How many day supply requestin days Medication route: oral (PO) Medication administration time(s): bedtime (HS) If taking medication PRN, reason for taking medication: N/A If this is a controlled substance do you receive this or any other controlled medication from any other doctor or facility: No Ordering provider: KWAME Escalante Date of last office visit: 12/09/2023 Date of next office visit: 01/11/2024 Date of last refill: (see medication tab): 11/27/2023 Updated/Validated preferred pharmacy: Yes Patient instructed to contact the pharmacy prior to picking up the medication: Yes [address] 12-30-2023 36 [facility] 12/09/23 [place] [address] Ordering provider: Britta Trinidad Date of last office visit: 12.09.2023 Date of next office visit: 01.11.2024 Updated/Validated preferred pharmacy: Yes Patient instructed to contact the pharmacy prior to picking up the medication: Yes (1) Medication name: oxyCODONE-acetaminophe n (Percocet) tablet Medication dosage: 5- 325mg (Miligrams Monthly quantity needed: 90 How many day supply requestin days Medication route: oral (PO) Medication administration time(s): as needed (PRN) If taking medication PRN, reason for taking medication: severe pain If this is a controlled substance do you receive this or any other controlled medication from any other doctor or facility: No Date of last refill (see medication tab): 12.09.2023 (2) Medication name: tiZANidine (Zanaflex) tablet Medication dosage: 4 mg (Miligrams Monthly quantity needed: 30 How many day supply requestin days Medication route: oral (PO) Medication administration time(s): as needed (PRN) If taking medication PRN, reason for taking medication: N/A If this is a controlled substance do you receive this or any other controlled medication from any other doctor or facility: N/A Date of last refill (see medication tab): 11.03.[address] [facility] 36on 12-23-2023 36 Reviewed chart. Refi ll appropriate. RX sent. [facility] 36 Prescription Request : Last medication check: 12/09/23 Last physical exam: 03/04/23 Next scheduled appointment: 01/11/24 Last date of refill on this medication 06/24/23 90 day [address] [facility] 36on 12-14-2023 36 Last office visit no te and summary faxed to number provided. [facility] 36 Called and spoke wit h Dr. Benson, rheumatology who will be seeing patient later today to establish. Discussed plan of care and concerns regarding patient's pain management. Would like Dr. 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 Also if any rheumatologic medications would be helpful for her. Will send most recent OV note. [facility] 36on 12-09-2023 36 Fax sent over to Dr. Benson. If she returns phone call please put her through to Vi WILKES. [facility] Office Visiton 12-09-2023 Follow-up visit [id number] Irvin Moncada 1970 F Date Provider Department Center 12/09/2023 BRITTA DC [facility] Family History Problem Relation Age of Onset Arthritis Mother Diabetes Mother Hyperlipidemia Mother Kidney disease Mother Cirrhosis Father Alcohol abuse Father Family Status - Relation Status Age at Mother Father Level of Service:88217 [place] OFFICE/OUTPATIENT ESTABLISHED MOD MDM 30 MIN Reason for Visit and Comments: Follow-up [617884] [facility] Progress Noteon 12-09-2023 Progress Note Initial blood pressu re elevated, repeat blood pressure good 119/77. Continue amlodipine 5 mg daily. Remember to bring home blood pressure cuff to the next office visit [facility] Progress Note Patient was unable t o tolerate decreased dose of Lunesta. Patient is well aware of possible oversedation with combined use of opioids, marijuana, muscle relaxant and her other medications. She does have Narcan available at home. Patient reports her pain is not well-managed on the Percocet 5 mg every 8 hours. We discussed possibly increasing the amitriptyline however patient reports she did not tolerate higher than 50 mg. Patient does have an appointment with rheumatology next week. 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 At this time we will continue current dose of Percocet 5 mg every 8 hours as needed for pain, OARRS reviewed and consistent with treatment plan. CS MA is in place [facility] Progress Note Severe. Pain poorly managed [facility] Progress Note Patient reports she has an appointment on the to establish care with Dr. Benson rheumatology. Provider will try to reach out to Dr. Benson prior to her appointment to discuss patient's plan of care [facility] Progress Note 12/09/2023 Paris Moncada (: 1970) is a 53 y.o. female , Established patient, here for evaluation of the following chief complaint(s): Follow-up ASSESSMENT/PLAN: 1. Chronic pain syndrome Assessment & Plan: Patient was unable to tolerate decreased dose of Lunesta. Patient is well aware of possible oversedation with combined use of opioids, marijuana, muscle relaxant and her other medications. She does have Narcan available at home. Patient reports her pain is not well-managed on the Percocet 5 mg every 8 hours. We discussed possibly increasing the amitriptyline however patient reports she did not tolerate higher than 50 mg. Patient does have an appointment with rheumatology next week. 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 At this time we will continue current dose of Percocet 5 mg every 8 hours as needed for pain, OARRS reviewed and consistent with treatment plan. CS MA is in place Orders: - oxyCODONE-acetaminophe n (Percocet) 5-325 MG tablet; Take 1 tablet by mouth every 8 hours as needed for severe pain (7-10)., Starting Khushi 12/09/2023, Until 01/08/2024 at 2359, Normal 2. Arthritis Assessment & Plan: Severe. Pain poorly managed 3. Influenza vaccine needed - Flu vaccine (FLUZONE/FLULAVAL/FLUA RICH), trivalent, split virus (VFC product) 4. Linear scleroderma Assessment & Plan: Patient reports she has an appointment on the to establish care with Dr. Benson rheumatology. Provider will try to reach out to Dr. Benson prior to her appointment to discuss patient's plan of care 5. Primary hypertension Assessment & Plan: Initial blood pressure elevated, repeat blood pressure good 119/77. Continue amlodipine 5 mg daily. Remember to bring home blood pressure cuff to the next office visit Follow up in about 3 months (around 03/10/2024) for 3 month medcheck. SUBJECTIVE/OBJECTIVE: BRADFORD Moncada (: 1970) is a 53 y.o. female , Established patient, here for the evaluation of the following chief complaint(s): Follow-up Patient presents for med check and pain management. We have been prescribing her opioid pain medication to bridge her to pain management. Unfortunately pain management has been unable to take over her opioid prescriptions and has had the recommendation of using injections instead of opioids. She has been on opioids for many years for her chronic pain. She has had steroid injections and other injections for treatment of her osteoarthritis in shoulders, hips and back. She has degenerative disc disease and spondylosis of the back. She has participated in physical therapy multiple times. She most recently was remeasured for her lift on her left foot and is waiting to have enough money to get a new shoe, as I was concerned that it might be contributing to her increased low back pain. However there was not that much of a discrepancy that would be contributing. she has linear scleroderma which complicates treatment modalities. Reports that she has had problems with injections due to her connective tissue disorder. She was referred to rheumatology and we are waiting for her to get established she has appt with Dr. Benson next week She has trialed in the past for her pain also gabapentin and Lyrica. Has had most success with Percocet 3 times daily. Her Percocet was decreased from 7.5 mg 3 times a day to 5 mg 3 times a day about 1 year ago. It was at that time that we started seeing her and we continued at the decreased dose of 5 mg 3 times a day. She also has a medical marijuana card and uses medical marijuana for her IBS and helps with her anxiety. Her insomnia she states she has been on Lunesta for close to 20 to 30 years and that was the only thing that has been helpful. She is currently on 3 mg nightly. She does have Narcan at home which was previously prescribed. Hypertension-reports that her blood pressure is lower at home in the morning and in the past she was hesitant to take the blood pressure medicine. Today she reports she has been taking it. States her blood pressures at home are usually 110-120/60-70, she was supposed to bring her home monitor with her today but she did not. Osteoporosis-patient has been referred to osteoporosis clinic and followed up with them as directed. IBS-reports intermittent constipation diarrhea. States that the medical marijuana does help with her symptoms and her appetite. Denies any recent illnesses or injuries. Dr. Casey in [place] - does her shoulder injections and has done some hip injections (bursitis) . (can only do the right shoulder d/t disorder). 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 Lives alone in apartment. Insomnia- we tried to decrease the lunesta dose last visit but she stated that she was unable to sleep at all on the 2 mg dose. She was on bupropion previ (more content not included)... [facility] Progress Note Patient was identifi ed by name and Date of . Patient was identified by name and Date Of . After obtaining informed consent, Immunization(s) were ordered by provider. The patient and or Family/Guardian was instructed on the benefits and risks related to the vaccine or toxoid. Information given to the patient and or Family/Guardian with signs and symptoms of adverse effects and when to seek medical attention. Site was cleansed with an alcohol swab, immunization(s) were given, and bandage(s) were applied to injection site. Patient tolerated well, advised patient and or Family/Guardian to stay in the office 20 minutes after injection has been given to observe for any reaction. Immunization(s) was given by Korin Mack MA. Normal [facility] Orthopedic Visit Reporton Orthopedic Visit Report [facility] [address] [place] [address] OFFICE VISIT Date of Service: 12/07/23 MR#: [id number] Acct: [id number] Name: PARIS MONCADA Rep #: [id number] : 1970 Provider: Dr. Shady rojas MD Age/Sex: 53/F Location: [facility] Status: Signed Intake Vital Signs 05/12/23 14:50 Height 4 ft 6 in Weight: 101 lb 6 oz BMI 24.4 Intake Visit Reasons: LEFT SHOULDER Accompanied by: Self Is patient in pain?: Yes Pain scale (1-10): 8 Allergies duloxetine (From Cymbalta) Allergy (Verified 12/07/23 15:49) Chest tightness trazodone Allergy (Verified 12/07/23 15:49) Chest tightness tramadol Adverse Reaction (Verified 12/07/23 15:49) Other Medications ???Medication ???Instructions ???Recorded ???Confirmed ???Type amitriptyline 50 mg tablet 50 mg PO QHS 12/10/21 12/07/23 History atorvastatin 20 mg tablet 20 mg PO QHS 12/10/21 12/07/23 History dexlansoprazole 60 mg 60 mg PO DAILY 12/10/21 12/07/23 History capsule,biphase delayed release eszopiclone 3 mg tablet 3 mg PO QHS 12/10/21 12/07/23 History cetirizine 10 mg capsule (Zyrtec) 10 mg PO DAILY PRN PRN allergies 03/04/22 12/07/23 History cholecalciferol (vitamin D3) 1,250 1,250 mcg PO QWEEK 03/04/22 12/07/23 History mcg (50,000 unit) capsule fenofibric acid (choline) 45 mg 45 mg PO DAILY 03/04/22 12/07/23 History capsule,delayed release oxycodone-acetaminophe n 5 mg-325 1 tab PO TID PRN 05/12/23 12/07/23 History mg tablet PFSH Medical History (Updated 12/07/23 @ 16:16 by Shady Burks MD) Left rotator cuff tear arthropathy Vitamin D deficiency Soft tissue mass Right hip pain Osteoporosis Muscle spasms of both lower extremities Insomnia Golfers elbow of right upper extremity Depression with anxiety Carpal tunnel syndrome Blindness of left eye B12 deficiency Acid reflux High cholesterol Scleroderma History of chronic pain Surgical History History of carpal tunnel surgery H/O eye surgery Hx of right knee surgery Family History Aunt Cancer lung Mother Diabetes Social History household members: other details: step dad Smoking Status: Current every day smoker tobacco type: cigarettes alcohol intake: never substance use type: does not use what type of physical activity do you participate in: other details: stretches frequency: daily HPI LEFT SHOULDER Details: This documentation accurately reflects the service provided and the decisions made by me, Dr. Shady Burks MD 12/07/23 1413. Part of today???s visit was documented by [ ], acting as scribe. PARIS MONCADA is a 53 year old F here today for left shoulder pain. It has been chronic. The patient has had scleroderma which has been quite bad and unilateral since the patient was 9 years ol d. He had a prior elbow effusion multiple infections in the shoulder possibly compartment syndrome in the past after the left elbow surgery. A completely fused wrist very minimal motion almost no muscle mass to left upper extremity including the shoulder. 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 Supplemental Info [facility] [address] [place] [address] Shoulder min 2 Views MR#: [id number] Acct: [id number] Name: PARIS MONCADA Rep #: [id number] : 1970 F 52 From: Alex Oseguera DO PCP: Status: DEP AMB Study: Shoulder min 2 Views Date of Exam: 12/23/22 Exam# [id number] Ordering Dr: Rayo Cantu DO [id number] EXAM: XR LEFT SHOULDER COMPLETE, 2 OR MORE VIEWS CLINICAL INDICATION: pain TECHNIQUE: Two or more views of the left shoulder. COMPARISON: 10/15/2021 FINDINGS: BONES/JOINTS: Mottled sclerosis in the body of the scapula. Moderate glenohumeral joint and acromioclavicular joint arthrosis. Degenerative changes in the spine. Healed previously demonstrated distal left clavicle fracture. SOFT TISSUES: Soft tissue calcifications along the humeral diaphysis. No soft tissue swelling or gas. No radiopaque foreign body. VASCULATURE: Vascular calcifications. RAD/Shoulder min 2 Views IMPRESSION: Healed previously demonstrated distal left clavicle fracture. Extensive degenerative changes. Electronically Signed: Alex Oseguera DO at 21:12 ES (more content not included)... Normal [facility] 36on 11-26-2023 36 Spoke to [place], pharmacy updated to [facility] in [place]. Normal [facility] 36on 11-25-2023 36 KATHERINE Escalante CNP [facility] Clinical Support Staff1 hour ago (12:26 PM) Please notify patient that I will change it back to the Lunesta 3 mg nightly dose. Please confirm pharmacy Called Paris, no answer and vm is full. [facility] 36 Name of caller: tameka jung Contact phone number: [phone] Relationship to Patient: patient Provider: KATHERINE Escalante CNP Practice: [facility] Chief Complaint/Reason for Call: Patient is following up on orders for eszopiclone (Lunesta) 3 MG tablet and eszopiclone (Lunesta) 2 MG tablet . Patient states that she can no longer alternate between both orders nightly because she can not get any sleep. Patient would like to continue taking eszopiclone (Lunesta) 3 MG tablet nightly instead. Patient is requesting a returned call to discuss this. Please advise. Best time of day caller can be reached: any Patient advised that office/PCP has 24-48 business hours to return their call: Yes Normal [facility] Orthopedic Visit Reporton Orthopedic Visit Report [facility] [address] [facility] [address] [place] [address] OFFICE VISIT Date of Service: 11/24/23 MR#: [id number] Acct: [id number] Name: PARIS MONCADA Rep #: [id number] : 1970 Provider: Dr. Rayo Wheatley so, DO Age/Sex: 53/F Location: [facility] Status: Signed Intake Vital Signs 05/12/23 14:50 Height 4 ft 6 in Weight: 101 lb 6 oz BMI 24.4 Intake Visit Reasons: RIGHT SHOULDER Allergies duloxetine (From Cymbalta) Allergy (Verified 11/24/23 15:20) Chest tightness trazodone Allergy (Verified 11/24/23 15:20) Chest tightness tramadol Adverse Reaction (Verified 11/24/23 15:20) Other Medications ???Medication ???Instructions ???Recorded ???Confirmed ???Type amitriptyline 50 mg tablet 50 mg PO QHS 12/10/21 11/24/23 History atorvastatin 20 mg tablet 20 mg PO QHS 12/10/21 11/24/23 History dexlansoprazole 60 mg 60 mg PO DAILY 12/10/21 11/24/23 History capsule,biphase delayed release eszopiclone 3 mg tablet 3 mg PO QHS 12/10/21 11/24/23 History cetirizine 10 mg capsule (Zyrtec) 10 mg PO DAILY PRN PRN allergies 03/04/22 11/24/23 History cholecalciferol (vitamin D3) 1,250 1,250 mcg PO QWEEK 03/04/22 11/24/23 History mcg (50,000 unit) capsule fenofibric acid (choline) 45 mg 45 mg PO DAILY 03/04/22 11/24/23 History capsule,delayed release oxycodone-acetaminophe n 5 mg-325 1 tab PO TID PRN 05/12/23 11/24/23 History mg tablet PFSH Medical History Acid reflux B12 deficiency Blindness of left eye Carpal tunnel syndrome Depression with anxiety Golfers elbow of right upper extremity High cholesterol History of chronic pain Insomnia Muscle spasms of both lower extremities Osteoporosis Right hip pain Scleroderma Soft tissue mass Vitamin D deficiency Surgical History H/O eye surgery History of carpal tunnel surgery Hx of right knee surgery Family History Aunt Cancer lung Mother Diabetes Social History household members: other details: step dad Smoking Status: Current every day smoker tobacco type: cigarettes alcohol intake: never substance use type: does not use what type of physical activity do you participate in: other details: stretches frequency: daily HPI RIGHT SHOULDER Details: This documentation accurately reflects the service provided and the decisions made by me, Dr. Rayo Cantu DO 11/24/23 1344. Part of today???s visit was documented by Priscilla ALEMAN, acting as scribe. PARIS MONCADA is a 53 year old F here today for right shoulder pain. Patient would like to have another injection today. Her last injection in the shoulder was 05/12/23 which gave her relief up until a few weeks ago. Ortho Exam General General: Yes no acute distress Neurologic: Yes alert and Yes oriented x3 Psychologic: Yes reasonable and appropriate Right Shoulder Skin/Wound: No ecchymosis, No erythema and No swelling Testing: Positive Hawkin's SHOULDER: She has nearly full range of motion of the right shoulder there is no shoulder instability she has 5 out of 5 rotator cuff strength. Left shoulder patient has severe soft tissue wasting of the entire left upper extremity there is no muscle her bones are very prominent underneath her skin from her scleroderma. There is no sign of infection Office Procedures Ortho Injections Injections Yes Subacromial Injection Right Is this a patient provided medication?: No Details: Obtained consent for injection. Under sterile conditions, injected the patients right subacromial injection with 4cc bupivacaine 4cc lidocaine 1cc depo medrol. The patient tolerated the injection well without any noted complication. Patient should call our office if redness develops, pain worsens or if they have any concerns. Office Meds Depo-Medrol 40 mg/mL suspension for injection Performing Provider: Rayo Cantu DO Performing Location: [facility] Administered by: Rayo Cantu DO on 11/24/23 15:53 Dose Route Admin Location Dispensed Lot Number Expiration Date [employer] ufacturer 40 mg intra-articular right subacromial 1 mL [id number] 11/15/24 1644-7830-45 [facility] Supplemental Info 12/23/2022 x-ray right shoulder : Mild AC joint arthritis 12/23/2022 x-ray left shoulder: There is some degenerative joint disease her distal clavicle fracture is healed 06/24/2022 x-ray lumbar spine: There is advanced L5-S1 degenerative disc disease and lower lumbar facet arthrosis there is also a spinal asymmetry 04/08/2022 MRI right hip: Circumscribed lesion in the femoral humeral head compatible with enchondroma unchange (more content not included)... Normal [facility] Office Visiton 11-03-2023 Follow-up visit [id number] Irvin Moncada Champ 1970 F Date Provider Department Center 11/03/2023 [id number] [facility] Family History Problem Relation Age of Onset Arthritis Mother Diabetes Mother Hyperlipidemia Mother Kidney disease Mother Cirrhosis Father Alcohol abuse Father Family Status - Relation Status Age at Mother Father Level of Service:54251 [place] OFFICE/OUTPATIENT ESTABLISHED MOD MDM 30 MIN Reason for Visit and Comments: Medication Check [[id number]] Normal [facility] PATINSon 11-03-2023 PATINS Make sure to get scheduled with rheumatology We will continue current dose of percocet at this time. - fisrt fill for next rx on 11/10/2023 We will plan on decreasing Lunesta next prescription with alternating 2 mg and 3 mg nightly 4. Bring blood pressure monitor with you when you come back in. Normal [facility] Progress Noteon 11-03-2023 Progress Note Follow-up with osteoporosis clinic as directed Normal [facility] Progress Note Symptoms are well-controlled on Lunesta 3 mg nightly. However due to associated risks with Lunesta and opioid use. Recommendation that we wean medication to discontinue. Discussed in great length with patient. This does create some anxiety with her due to her being on the medication for quite some time. Advised we will slowly taper discontinue the medication and evaluate as we go. If significant insomnia persists we will need to reevaluate our plan. At this time she will continue the 3 mg nightly to complete the current prescription and then we will alternate Lunesta 2 mg nightly with Lunesta 3 mg nightly x 1 month. We will further decrease Lunesta as tolerated to 2 mg nightly x 4 weeks, then alternate Lunesta 1 mg nightly with 2 mg nightly for 4 weeks, then Lunesta 1 mg nightly x 4 weeks, then Lunesta 1 mg nightly as needed x 1 month then discontinue. Consider referral to sleep medicine if patient has significant insomnia. Normal [facility] Progress Note Patient has been referred to Dr. Benson and is waiting to establish. Patient was advised that this is a priority and she should call to get scheduled Normal [facility] Progress Note Stable. Patient will be seeing residential carpet installer Normal [facility] Progress Note Uncontrolled. Restar t amlodipine 10 mg daily. Bring blood pressure cuff to the office at next visit [facility] Progress Note Provider reached out to [facility] pain stewardship team for further recommendations regarding patient's pain management. Conversation via secure chat. Recommendation was that okay for primary care to continue to prescribe opioid. May increase dosing up to Percocet 5 mg every 6 hours. Currently dosing at 5 mg every 8 hours. Recommendation to wean off of Lunesta due to hypnotic sedation and risk for oversedation. Also recommended for intranasal Narcan to be available if needed-patient already has at home. Also recommend to potentially refer to comprehensive pain management for [facility] in [place]. --------- Discussed in great detail with patient and we will continue the Percocet at the current dosing of 5 mg every 8 hours for severe pain. We will begin taper of Lunesta after her current prescription of 3 mg is complete. We will plan on alternating 2 mg nightly with 3 mg nightly for 1 month, further decrease to 2 mg nightly for 4 weeks, then alternate 1 mg nightly with 2 mg nightly for 4 weeks, then decrease to 1 mg nightly for 4 weeks, then 1 mg as needed nightly for 4 weeks then discontinue. If patient is unable to tolerate due to insomnia would then recommend referral to sleep medicine for further evaluation. She reports she has been on the Lunesta for close to 30 years and this causes her great distress with the thought of having sleep issues again but she is willing to try it. Oarrs reviewed and consistent with treatment plan. She is well aware of potential risks associated with using additional medications that may be sedative. Close follow up in 1 month. Normal [facility] Progress Note 11/03/2023 Paris Moncada (: 1970) is a 53 y.o. female , Established patient, here for evaluation of the following chief complaint(s): Medication Check ASSESSMENT/PLAN: 1. Chronic pain syndrome Assessment & Plan: Provider reached out to [facility] pain stewardship team for further recommendations regarding patient's pain management. Conversation via secure chat. Recommendation was that okay for primary care to continue to prescribe opioid. May increase dosing up to Percocet 5 mg every 6 hours. Currently dosing at 5 mg every 8 hours. Recommendation to wean off of Lunesta due to hypnotic sedation and risk for oversedation. Also recommended for intranasal Narcan to be available if needed-patient already has at home. Also recommend to potentially refer to comprehensive pain management for [facility] [place]. --------- Discussed in great detail with patient and we will continue the Percocet at the current dosing of 5 mg every 8 hours for severe pain. We will begin taper of Lunesta after her current prescription of 3 mg is complete. We will plan on alternating 2 mg nightly with 3 mg nightly for 1 month, further decrease to 2 mg nightly for 4 weeks, then alternate 1 mg nightly with 2 mg nightly for 4 weeks, then decrease to 1 mg nightly for 4 weeks, then 1 mg as needed nightly for 4 weeks then discontinue. If patient is unable to tolerate due to insomnia would then recommend referral to sleep medicine for further evaluation. She reports she has been on the Lunesta for close to 30 years and this causes her great distress with the thought of having sleep issues again but she is willing to try it. Oarrs reviewed and consistent with treatment plan. She is well aware of potential risks associated with using additional medications that may be sedative. Close follow up in 1 month. Orders: - oxyCODONE-acetaminophe n (Percocet) 5-325 MG tablet; Take 1 tablet by mouth every 8 hours as needed for severe pain (7-10). Do not start before November 10, 2023., Starting Wed11/10/2023, Until Wed12/10/2023 at 2359, Normal 2. Chronic midline thoracic back pain Assessment & Plan: Stable. Continue Percocet 5-325 mg 1 tablet every 8 hours for severe pain. OARRS reviewed and consistent with treatment plan. See other documentation under chronic pain syndrome Orders: - tiZANidine (Zanaflex) 4 MG tablet; take 2 tablets by mouth at bedtime if needed, Normal 3. Primary hypertension Assessment & Plan: Uncontrolled. Restart amlodipine 10 mg daily. Bring blood pressure cuff to the office at next visit Orders: - amLODIPine (Norvasc) 5 MG tablet; Take 1 tablet (5 mg) by mouth daily., Starting Wed11/03/2023, Until Wed11/24/2024, Normal 4. Irritable bowel syndrome with both constipation and diarrhea Assessment & Plan: Stable. Patient will be seeing residential carpet installer 5. Linear scleroderma Assessment & Plan: Patient has been referred to Dr. Benson and is waiting to establish. Patient was advised that this is a priority and she should call to get scheduled 6. Primary insomnia Assessment & Plan: Symptoms are well-controlled on Lunesta 3 mg nightly. However due to associated risks with Lunesta and opioid use. Recommendation that we wean medication to discontinue. Discussed in great length with patient. This does create some anxiety with her due to her being on the medication for quite some time. Advised we will slowly taper discontinue the medication and evaluate as we go. If significant insomnia persists we will need to reevaluate our plan. At this time she will continue the 3 mg nightly to complete the current prescription and then we will alternate Lunesta 2 mg nightly with Lunesta 3 mg nightly x 1 month. We will further decrease Lunesta as tolerated to 2 mg nightly x 4 weeks, then alternate Lunesta 1 mg nightly with 2 mg nightly for 4 weeks, then Lunesta 1 mg nightly x 4 weeks, then Lunesta 1 mg nightly as needed x 1 month then discontinue. Consider referral to sleep medicine if patient has significant insomnia. Orders: - eszopiclone (Lunesta) 2 MG tablet; Every other night, alternate with Lunesta 3 mg Do not start before November 21, 2023., Normal - eszopiclone (Lunesta) 3 MG tablet; Every other night, alternate with Lunesta 2 mg. Do not start before November 21, 2023., Normal 7. Encounter for screening mammogram for malignant neoplasm of breast - Bilateral screening mammogram with tomosynthesis 8. Osteoporosis, unspecified osteoporosis type, unspecified pathological fracture presence Assessment & Plan: Follow-up with osteoporosis clinic as directed Follow up in about 1 month (around 12/03/2023). SUBJECTIVE/OBJECTIVE: [place] - Paris Moncada (: 1970) is a 53 y.o. female , Established patient, here for the evaluation of the following chief complaint(s): Medication Check Patient presents for med check and pain management. We have been prescribing her op (more content not included)... Normal [facility] Progress Note Health Maintenance Addressed with Patient at Visit: Health Maintenance Due Topic Colorectal Cancer Screening-pended Diabetes Screening-was pended from provider Cervical Cancer Screening-pended Lung Cancer Screening-pended Depression Monitoring-completed COVID-19 Vaccine-declined Influenza Vaccine-declined Normal [facility] Office Visiton 10-26-2023 Follow-up visit [id number] Irvin Moncada 1970 F Date Provider Department Center 10/26/2023 [id number] VERA [facility] N SEASO None Family History Problem Relation Age of Onset Arthritis Mother Diabetes Mother Hyperlipidemia Mother Kidney disease Mother Cirrhosis Father Alcohol abuse Father Family Status - Relation Status Age at Mother Father Level of Service:63386 [place] OFFICE/OUTPATIENT NEW MODERATE MDM 45 MINUTES Reason for Visit and Comments: New Patient [542] - Pt is here for pain through out her entire body. She states she has been dealing with pain for over 30 yrs. Today her worst pain is in the center of her low back and to the right side. She states she has a soft mass in her back which causes a lot of pain. Pain in her left shoulder which began years ago after she broke it. Does get injections to help with this pain. Normal [facility] Progress Noteon 10-26-2023 Progress Note [facility] PAIN [facility]NA[facility] - [facility] [address] [place] [address] Dept: [phone] Dept Chief Complaint Patient presents with New Patient Pt is here for pain through out her entire body. She states she has been dealing with pain for over 30 yrs. Today her worst pain is in the center of her low back and to the right side. She states she has a soft mass in her back which causes a lot of pain. Pain in her left shoulder which began years ago after she broke it. Does get injections to help with this pain. SUBJECTIVE HPI: Paris Moncada is a 53 y.o. year old here today for evaluation and treatment of multiple chronic pain complaints. LOCATION OF PAIN: low back, right shoulder RADIATES: CONSTANT/INTERMITTENT: constant DURATION: Many years NUMBNESS/TINGLING? Yes in right hagen and foot WEAKNESS? Yes in entire left side URINARY/FECAL INCONTINENCE? yes SADDLE ANESTHESIA? yes INTERFERING WITH SLEEP? yes CURRENT PAIN MEDS: Percocet 5/325 mg TID PRN, tizanidine 4 mg at bedtime; also on amitriptyline 50 mg at bedtime for sleep mainly - Also using medical marijuana ANY SIGNIFICANT SIDE EFFECTS FROM CURRENT PAIN MEDS? no ARE THEY PROVIDING ADEQUATE ANALGESIA? some ARE THEY PROVIDING ADEQUATE FUNCTIONAL IMPROVEMENT? some PAIN MEDS PREVIOUSLY TRIED/FAILED: Multiple opioids, gabapentin, lyrica, tramadol, cymbalta OTHER CURRENT / PREVIOUS TREATMENT Physical therapy -- yes Prior Pain Clinic -- several, including dismissal from Dr Rosario's office due noncompliance with opioid contract Chronic opiates -- yes Previous Pain Procedures -- some previous lumbar RFAs helped but caused significant weakness Patient Active Problem List Diagnosis Date Noted Acquired inequality of length of extremity 10/06/2023 Bulging lumbar disc 07/28/2023 Other secondary scoliosis, lumbar region 06/01/2023 Mass on back 05/20/2023 Low back pain, unspecified 04/29/2023 Skin pimple 04/29/2023 Irritation of left eye 01/06/2023 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 Chronic back pain 11/24/2022 Depression 11/24/2022 Headache 11/24/2022 Irritable bowel syndrome 11/24/2022 Neuropathy 11/24/2022 Anxiety 11/24/2022 Arthritis 11/24/2022 Personal history of malignant neoplasm of breast 11/24/2022 Blindness of left eye 11/24/2022 Body mass index (BMI) of 20 to 24 11/24/2022 Carpal tunnel syndrome 11/24/2022 Leg length discrepancy 11/24/2022 Enchondroma of bone 11/24/2022 Hemorrhoids 11/24/2022 Hypertension 11/24/2022 Iliotibial band syndrome of right side 11/24/2022 Osteoporosis 11/24/2022 Insomnia 11/24/2022 Lumbar radiculopathy 11/24/2022 Medial epicondylitis 11/24/2022 Osteoarthritis of right hip 11/24/2022 Degenerative joint disease (DJD) of lumbar spine 11/24/2022 Vitamin D deficiency 11/24/2022 Gastroesophageal reflux disease 04/29/2022 Hypercholesterolemia 04/29/2022 Spondylosis of lumbar spine 04/29/2022 Systemic sclerosis (HCC) 04/29/2022 Osteopetrosis 04/14/2022 Chronic pain of both upper extremities 02/25/2022 Bursitis of shoulder 02/25/2022 Disorder of rotator cuff 02/25/2022 Pain of left shoulder region 02/25/2022 Pain of right hip joint 01/30/2022 Arthritis of left glenohumeral joint 01/30/2022 Acquired arm deformity, left 08/12/2021 Acquired deformity of left lower leg 08/12/2021 B12 deficiency 08/12/2021 Chronic pain syndrome 08/12/2021 H/O bone scan 02/24/2022 Allergies Allergen Reactions Duloxetine Other Other reaction(s): Chest tightness, Racing Heart Duloxetine Hcl Unknown Lyrica [Pregabalin] Tramadol Other and Unknown Other reaction(s): Other: See Comments Trazodone Other reaction(s): Chest tightness, Other: See Comments, Racing Heart Family History Problem Relation Name Age of Onset Arthritis Mother Kera Diabetes Mother Kera Hyperlipidemia Mother Kera Kidney disease Mother Kera Cirrhosis Father N/a Alcohol abuse Father N/a Past Medical History: Diagnosis Date Anxiety Arthritis Chronic back pain Closed fracture of clavicle 02/25/2022 Depression Disease due to severe acute respiratory syndrome coronavirus 2 (SARS-CoV-2) 03/04/2023 Headache Irritable bowel syndrome Linear scleroderma Neuropathy Social History Socioeconomic History Marital status: Single Spouse name: Not on file Number of children: Not on file Years of education: Not on file Highest education level: Not on file Occupational History Comment: [employer] Tobacco Use Smoking status: Every Day Current packs/day: 1.00 Average packs/day: 1 pack/day for 35.0 years (35.0 ttl pk-yrs) Types: Cigarettes Smokeless tobacco: Never Vaping Use Vaping status: Never Used Substance and Sexual Activity Alcohol use: Not Currently Drug use: Yes Types: Marijuana Comment: CBD with THC Sexual activity: Not Currently Other Topics Concern Not on file Social History Narrative (more content not included)... Normal [facility] 36on 10-13-2023 36 Noted Normal [facility] 36on 10-12-2023 36 Please keep it open. Patient said she was planning on rescheduling it when I talked to her last. Normal [facility] 36 Pt given orders for CT-Lung Screen on 03/04/23. Pt sched for 06/29/23 and NC/NS to appt. No follow up scheduled at this time. Okay to cancel orders? Normal [facility] CBC panel Auto (Bld)on 03-05 Erythrocyte distribution width (RBC) [Ratio] 13.0 % 11.0 - 15.0 % [facility] Erythrocyte distribution width (RBC) [Ratio] 13 % 11.0 - 15.0 % [facility] Hematocrit (Bld) [Volume fraction] 39.4 % 35.0 - 45.0 % [facility] Hemoglobin (Bld) [Mass/Vol] 13.6 g/dL 11.7 - 15.5 g/dL [facility] MCH (RBC) [Entitic mass] 31.5 pg 27. 0 - 33.0 pg [facility] MCHC (RBC) [Mass/Vol] 34.5 g/dL 32.0 - 36.0 g/dL [facility] MCV (RBC) [Entitic vol] 91.2 fL 80.0 - 100.0 fL [facility] Platelet mean volume (Bld) [Entitic vol] 11.0 fL 7.5 - 12.5 fL [facility] Platelet mean volume (Bld) [Entitic vol] 11 fL 7.5 - 12.5 fL [facility] Platelets (Bld) [#/Vol] 402 10*3/uL High [facility] RBC (Bld) [#/Vol] 4.32 10*6/uL [facility] WBC (Bld) [#/Vol] 7.2 10*3/uL [facility] Comprehensive metabolic 1998 panelon 03-05-2023 Albumin [Mass/Vol] 4.3 g/dL 3.6 - 5.1 g/dL [facility] Albumin/Globulin [Mass ratio] 1.2 {ratio} [facility] ALP [Catalytic activity/Vol] 172 U/L High 37 - 153 U/L [facility] ALT [Catalytic activity/Vol] 24 U/L 6 - 29 U/L [facility] AST [Catalytic activity/Vol] 31 U/L 10 - 35 U/L [facility] Bilirubin [Mass/Vol] 0.3 mg/dL 0.2 - 1 .2 mg/dL [facility] Calcium [Mass/Vol] 9.8 mg/dL 8.6 - 10. 4 mg/dL [facility] Chloride [Moles/Vol] 102 mmol/L 98 - 11 0 mmol/L [facility] CO2 [Moles/Vol] 25 mmol/L 20 - 32 mmol/L [facility] Creatinine [Mass/Vol] 0.52 mg/dL 0.50 - 1.03 mg/dL [facility] GFR/1.73 sq M.predicted among non-blacks MDRD (S/P/Bld) [Vol rate/Area] 113 mL/min/{1.73_m2} > OR = 60 mL/min/1.7 3m2 [facility] Globulin (S) [Mass/Vol] 3.5 g/dL [facility] Glucose [Mass/Vol] 88 mg/dL 65 - 99 mg/dL [facility] Comment on above: Fasting reference interval Potassium [Moles/Vol] 4.2 mmol/L 3.5 - 5.3 mmol/L [facility] Protein [Mass/Vol] 7.8 g/dL 6.1 - 8.1 g/dL [facility] Sodium [Moles/Vol] 139 mmol/L 135 - 146 mmol/L [facility] Urea nitrogen [Mass/Vol] 11 mg/dL 7 - 25 mg/dL [facility] Urea nitrogen/Creatinine [Mass ratio] SEE NOTE: [facility] Comment on above: Not Reported: BUN an d Creatinine are within reference range. Laboratory - Chemistry and C hemistry - challengeon 01-19-2024 25-hydroxyvitamin D3 [Mass/Vol] 31 ng/mL 30 - 100 ng/mL [facility] Comment on above: Vitamin D Status 25- [place] Vitamin D: Deficiency: <20 ng/mL Insufficiency: 20 - 29 ng/mL Optimal: > or = 30 ng/mL For 25-OH Vitamin D testing on patients on D2-supplementation and patients for whom quantitation of D2 and D3 fractions is required, the QuestAssureD(TM) 25-OH VIT D, (D2,D3), LC/MS/MS is recommended: order code 55506 (patients >2yrs). See Note 1 Note 1 For additional information, please refer to http://education.[employer]/faq/WID244 (This link is being provided for informational/ educational purposes only.) Cobalamin (Vitamin B12) [Mass/Vol] 542 pg/mL 200 - 1100 pg/mL [employer] Lipid 1996 panelon 4 Cholesterol [Mass/Vol] 296 mg/dL High [facility] - 200 mg/dL [employer] Cholesterol in HDL [Mass/Vol] 76 mg/dL > OR = 50 [employer] Cholesterol in LDL [Mass/Vol] 179 mg/dL High mg/dL (calc) [facility] Comment on above: Reference range: <10 0 Desirable range <100 mg/dL for primary prevention; <70 mg/dL for patients with CHD or diabetic patients with > or = 2 CHD risk factors. LDL-C is now calculated using the Vitor-Jacobs calculation, which is a validated novel method providing better accuracy than the Friedewald equation in the estimation of LDL-C. Vitor SS et al. CORTEZ. 2013;310(19): 2428-4076 (http://education.[employer]/faq/ETI646) Cholesterol non HDL [Mass/Vol] 220 mg/dL High [facility] Comment on above: Non-HDL level > or = 220 is very high and may indicate genetic familial hypercholesterolemia (FH). Clinical assessment and measurement of blood lipid levels should be considered for all first-degree relatives of patients with an FH diagnosis. For patients with diabetes plus 1 major ASCVD risk factor, treating to a non-HDL-C goal of <100 mg/dL (LDL-C of <70 mg/dL) is considered a therapeutic option. Cholesterol.total/Cholester ol in HDL [Mass ratio] 3.9 {ratio} [facility] Triglyceride [Mass/Vol] 224 mg/dL High [facility] - 150 mg/dL [facility] Comment on above: If a non-fasting specimen was collected, consider repeat triglyceride testing on a fasting specimen if clinically indicated. Dennis et al. J. of Clin. Lipidol. 2015;9:129-169. No Panel Informationon 03-05 Interpretation and review of laboratory results Abnormal [facility] Influenza virus A and B and SARS-CoV-2 (COVID-19) Ag panel - Upper respiratory specimOrdered By: Bianca Powers on 02-15-2023 SARS-CoV-2 & FLU Antigen (Rapid) SARS-CoV-2 (COVID 19) [facility] AMB POC DRUG SCREEN , LABS OURCEon 02-03-2023 Amphetamine Screen, Urine Negative [facility] Barbiturates Screen Ql (U) Not detected N one Detected [facility] Benzodiazepines Ql (U) Not detected None Detected [facility] BUPRENORPHINE SCREEN Negative Negative [facility] Cannabinoids Screen (U) [Mass/Vol] Positive [facility] Cocaine Ql (U) Not detected None Detected [facility] FENTANYL SCREEN, URINE Negative Negative [facility] Interpretation and review of laboratory results Abnormal [facility] Methadone Screen Ql (U) Negative [facility] Methamphetamine (U) [Mass/Vol] Negative [facility] Methylenedioxymethamphetami ne (U) [Mass/Vol] Negative ng/mL [facility] oxyCODONE Ql (U) Positive [facility] Tricyclic antidepressants Screen Ql (U) Positive [facility] CNOVon 11-18-2022 CNOV Office Visit ([facility] ) PARIS MONCADA ([id number]) 1970 F U[facility] Date Time Provider Department 11/18/22 3:00 PM SABRINA TINEO PASC During your visit today, we recorded the following information about you: Pulse Blood pressure Weight 108/minute 186/99 45 kg Sabrina Tineo MD 11/18/2022 4:01 PM Signed Sabrina Tineo MD Pain Management Pain Management [facility] [address] [address] Dept: [phone] New Patient Chronic Pain Consult Note Date: 11/18/2022 3:06 PM Referring physician: self This consult was requested by Self for my medical opinion. My final recommendations will be communicated to the referring physician by way of the shared medical record for internal providers or by letter via the [employer] for external providers. Nursing Assessment: [...] Laterality Date EXC CYST/ABERRANT BREAST TISSUE OPEN > LESION 01/23/2010 PAST SURGICAL HISTORY OF Left [...] No Comment: Marijuana laced brownies at a democrat by accident Allergies: Allergies: Duloxetine Other: See Comments Tramadol Other: See Comments Trazodone Other: See Comments Current Outpatient Medications: etodolac (LODINE-XL) 400 mg 24 hr tablet Take 1 tablet by mouth once daily. For pain. Take with food triamcinolone (KENALOG) 0.025 % cream Apply 1 application to affected area twice daily. oxyCODONE-acetaminophe n (PERCOCET) 7.5-325 mg tablet Take 1 tablet by mouth every 6 hours as needed for pain for up to 30 days. Do not start before October 11, 2021. DEXILANT 60 mg CpDM 60 mg once daily. oxyCODONE-acetaminophe n (PERCOCET) 7.5-325 mg tablet take 1 tablet by mouth every 6 hours if needed for pain for 4 days oxyCODONE-acetaminophe n (PERCOCET) 7.5-325 mg tablet Take 1 tablet [...] Inject 1 mL intramuscularly once every month. Hydrocodone-Acetaminop hen 7.5-300 mg ORAL Tab Take by mouth. Review of Systems: GENERAL: Any recent unintentional weight loss? No HEENT: Any frequent or significant headaches, or history of Glaucoma? Yes: headaches CARDIOVASCULAR: Any history of cardiac arrhythmias, AK, prior CVA, or heart failure? No GASTROINTESTINAL: Any history of peptic ulcer disease or GI bleeding, blood in stools NO GENITOURINARY: Any history of incontinence, urinary retention or nephrolithiasis? No MUSCULOSKELETAL: Any joint pain or swelling, back pain or muscle pain? Yes: all of the above NEUROLOGIC: Any recent focal numbness or weakness? Yes: right leg numb and right foot HEMATOLOGIC/LYMPHATIC/ IMMUNOLOGIC: Any problems with prolonged bleeding, bruising easily? [...] sharp and electrifying. The pain ranges from 9- (more content not included)... Normal [facility] CNPNon 11-18-2022 CNPN Telephone ([facility] [facility] PARIS MONCADA ([id number]) 1970 F U[place] Date Time Provider Department 11/18/22 [facility] During your visit today, we recorded the following information about you: Yady Greer 11/18/2022 1:22 PM Signed Dear Patient, This is a follow up phone call regarding your appointment with Dr. Tineo At [facility]. Your appointment time is 3pm arrive 30 minutes prior please . Please bring any outside records, lab work and a cd with copies of your imaging studies to your appointment. Please be advised that your first appointment with Dr. Tineo is always a diagnostic evaluation. She will review your medical history, old records and imaging reports and discuss with you her plan of care. This care plan will be communicated to your referring physician. Dr. 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 Please make sure you have enough of your pain medication to last until you are able to follow up with that prescribing physician. Allergies As of Date: 11/18/2022 Noted Allergy Reaction DULOXETINE 08/08/2021 14 - Other: See Comments TRAMADOL 08/08/2021 14 - Other: See Comments TRAZODONE 08/08/2021 14 - Other: See Comments Date Reviewed: 11/21/2021 Reviewed by: Gwen Ponce Ma - Fully Assessed Reason for Visit: Appointment [[id number]] Prescriptions as of 11/18/2022 - etodolac (LODINE-XL) 400 mg 24 hr tablet Take 1 tablet by mouth once daily. For pain. Take with food - triamcinolone (KENALOG) 0.025 % cream Apply 1 application to affected area twice daily. - oxyCODONE-acetaminophe n (PERCOCET) 7.5-325 mg tablet Take 1 tablet by mouth every 6 hours as needed for pain for up to 30 days. Do not start before October 11, 2021. - DEXILANT 60 mg CpDM 60 mg once daily. - oxyCODONE-acetaminophe n (PERCOCET) 7.5-325 mg tablet take 1 tablet by mouth every 6 hours if needed for pain for 4 days - oxyCODONE-acetaminophe n (PERCOCET) 7.5-325 mg tablet Take 1 tablet by mouth every 6 hours as needed for pain for up to 30 days. - amitriptyline (ELAVIL) 50 mg tablet Take 1 tablet by mouth daily at bedtime. - atorvastatin (LIPITOR) 20 mg tablet Take 1 tablet by mouth daily at bedtime. - escitalopram oxalate (LEXAPRO) 10 mg tablet Take 1 tablet by mouth once daily. - Fenofibric Acid 45 mg cpDR Take 1 capsule by mouth once daily. - tiZANidine (ZANAFLEX) 4 mg tablet Take 1.5 tablets by mouth three times daily. - hydrOXYzine HCl (ATARAX) 25 mg tablet Take 1 tablet by mouth four times daily as needed. - cyanocobalamin 1,000 mcg/mL Inject 1 mL intramuscularly once every month. - Hydrocodone-Acetaminop hen 7.5-300 mg ORAL Tab Take by mouth. Problem List As Of Date 11/18/2022 Noted Resolved Chronic pain syndrome [G89.4] 08/12/2021 History of hyperlipidemia [Z86.39] 08/12/2021 Personal history of scleroderma [Z87.39] 08/12/2021 B12 deficiency [E53.8] 08/12/2021 Acquired arm deformity, left [M21.922] 08/12/2021 Acquired deformity of left lower leg [M21.962] 08/12/2021 Encounter Status:Closed by YADY GREER on 11/18/22 [facility] - Drug toxicology Ordered By: Yovani Rosario on 08-31-2022 Amphetamines Ql (U) Negative <1000 ng/mL [facility] Benzodiazepines Ql (U) Negative < 200 ng/mL [facility] Cannabinoids Screen Ql (U) Positive < 50 ng/m L [facility] Cocaine Ql (U) Negative < 300 ng/mL [facility] Opiates Ql (U) Negative < 300 ng/mL [facility] No Panel InformationOrdered By: Yovani Abraham on 08-31-2022 MDMA (Ecstasy) Screen Negative < 500 ng/mL [facility] Urine Barbiturates Screen Negative < 200 ng/mL [facility] Urine Drug Screen Comment [facility] Comment on above: CONFIRMATORY TESTING FOR ALL POSITIVE URINE DRUG SCREENRESULTS WILL ONLY BE SENT OUT UPON PHYSICIAN ORDER. VISTA Urine Drug Screen methods provide only preliminaryanalytical test results. A more specific alternate chemicalmethod must be used in order to obtain a confirmedanalytical result. Gas chromatography/mass spectrometery(GC/MS) is the preferred confirmatory method. Clinicalconsideration and professional judgement should be appliedto any drug of abuse test result, particularly whenpreliminary positive results are used. URINE TCA TESTING MUST BE ORDERED SEPARATELY. USE TESTMNEMONIC: [facility] Urine Methadone Screen Negative < 300 ng/mL [facility] Urine phencyclidine (PCP) de tectionOrdered By: Yovani Rosario on 08-31-2022 Phencyclidine Ql (U) Negative < 25 ng/mL [facility] Basophil percentageon 2022 Bilirubin [Mass/Vol] 0.20 mg/dL 0.20-1.00 [facility] Comment on above: For patients on eltr ombopag therapy, use of Dimension [place] TBIL is not recommended. Chloride [Moles/Vol] 103 mmol/L 98-107 [facility] Glucose [Mass/Vol] 94 mg/dL 74-[address] [facility] Potassium [Moles/Vol] 3.5 mmol/L 3.5-5.1 [facility] Protein [Mass/Vol] 7.3 g/dL 6.4-8.[address] [facility] Sodium [Moles/Vol] 139 mmol/L 136-[address] [facility] WBC (Bld) [#/Vol] 6.1 10*3/uL 4.4-11.[address] [facility] Blood erythrocytes count (nu mber/volume)on 05-21-2022 RBC (Bld) [#/Vol] 3.36 10*6/uL 4.2-5.4 [facility] Blood hemoglobin measurement (mass/volume)on 05-21-2022 Hemoglobin (Bld) [Mass/Vol] 10.4 g/dL 12.0-15. 0 [facility] Blood platelet mean volumeon 05-21-2022 Platelet mean volume (Bld) [Entitic vol] 9.7 fL 6.2-12.0 [facility] Determination of erythrocyte mean corpuscular volume (MCV)on 05-21-2022 MCV (RBC) [Entitic vol] 93.8 fL 81-99 [facility] Erythrocyte sedimentation ra ben 05-21-2022 ESR (Bld) [Velocity] 42 mm/h 0-30 [facility] Hematocrit Auto (Bld) [Volum e fraction]on 05-21-2022 Hematocrit (Bld) [Volume fraction] 31.5 % 37-47 [facility] Laboratory - Chemistry and C hemistry - challengeon 05-21-2022 ALP [Catalytic activity/Vol] 157 U/L 45-117 [facility] ALT [Catalytic activity/Vol] 18 U/L 13-56 [facility] CO2 [Moles/Vol] 29.0 mmol/L 21.0-32.0 [facility] Globulin (S) [Mass/Vol] 4.2 g/dL 2.2-4.2 [facility] Urea nitrogen/Creatinine [Mass ratio] 10.8 mg/mg 10-20 [facility] Laboratory - Hematology and Cell countson 05-21-2022 Erythrocyte distribution width (RBC) [Entitic vol] 44.4 fL 35.1-43.[address] [facility] Erythrocyte distribution width (RBC) [Ratio] 13.0 % 11.6-14.6 [facility] MCH (RBC) [Entitic mass] 31.0 pg 27.0-32.0 [facility] MCHC Auto (RBC) [Mass/Vol]on 05-21-2022 MCHC (RBC) [Mass/Vol] 33.0 g/dL 32-36 [facility] No Panel Informationon 05-21 Estimated Creatinine Clearance Calc 64.53 ml/min [facility] Estimated GFR (MDRD) Amer 107 mL/min >60 [facility] Comment on above: GFR Calc Estimated GFR (MDRD) Non-Af Amer 88 mL/min >60 [facility] Comment on above: Non- GFR Calc Platelets bldon 05-21-2022 Platelets (Bld) [#/Vol] 374 10*3/uL 150-450 [facility] Serum or plasma albumin rosalva urement (mass/volume)on 05-21-2022 Albumin [Mass/Vol] 3.1 g/dL 3.2-5.[address] [facility] Serum or plasma albumin/glob ulin mass ratioon 05-21-2022 Albumin/Globulin [Mass ratio] 0.7 {ratio} 0.9-2.4 [facility] Serum or plasma calcium rosalva urement (mass/volume)on 05-21-2022 Calcium [Mass/Vol] 9.2 mg/dL 8.5-10.[address] [facility] Serum or plasma creatinine m easurement (mass/volume)on 05-21-2022 Creatinine [Mass/Vol] 0.74 mg/dL 0.55-1.02 [facility] Comment on above: The validity of the calculated GFR & GFRAA in patients over 70 years has not been determined. Clinical correlation is essential. Serum or plasma urea nitroge n measurement (mass/volume)on 05-21-2022 Urea nitrogen [Mass/Vol] 8 mg/dL 7-18 [facility] Thin prep Papanicolaou smear with manual screeningon 05-21-2022 Thin prep Papanicolaou smear with manual screening 30 U/L 15-37 [facility] Thin prep Papanicolaou smear with manual screening 7 5-15 [facility] Basophil percentageon 2022 Bilirubin [Mass/Vol] 0.20 mg/dL 0.20-1.00 [facility] Comment on above: For patients on eltr ombopag therapy, use of Dim[place] TBIL is not recommended. Chloride [Moles/Vol] 102 mmol/L 98-107 [facility] Glucose [Mass/Vol] 104 mg/dL 74-[address] [facility] Comment on above: Fasting Glucose resu lt from 100 to 125 mg/dL suggests IMPAIRED HOMEOSTASIS per A.D.A. criteria. Potassium [Moles/Vol] 3.1 mmol/L 3.5-5.1 [facility] Protein [Mass/Vol] 7.4 g/dL 6.4-8.[address] [facility] Sodium [Moles/Vol] 138 mmol/L 136-[address] [facility] WBC (Bld) [#/Vol] 7.4 10*3/uL 4.4-11.[address] [facility] Blood erythrocytes count (nu mber/volume)on 05-14-2022 RBC (Bld) [#/Vol] 3.51 10*6/uL 4.2-5.4 [facility] Blood hemoglobin measurement (mass/volume)on 05-14-2022 Hemoglobin (Bld) [Mass/Vol] 10.6 g/dL 12.0-15. 0 [facility] Blood platelet mean volumeon 05-14-2022 Platelet mean volume (Bld) [Entitic vol] 9.5 fL 6.2-12.0 [facility] Determination of erythrocyte mean corpuscular volume (MCV)on 05-14-2022 MCV (RBC) [Entitic vol] 92.6 fL 81-99 [facility] Erythrocyte sedimentation ra ben 05-14-2022 ESR (Bld) [Velocity] 40 mm/h 0-30 [facility] Hematocrit Auto (Bld) [Volum e fraction]on 05-14-2022 Hematocrit (Bld) [Volume fraction] 32.5 % 37-47 [facility] Laboratory - Chemistry and C hemistry - challengeon 05-14-2022 ALP [Catalytic activity/Vol] 141 U/L 45-117 [facility] ALT [Catalytic activity/Vol] 11 U/L 13-56 [facility] CO2 [Moles/Vol] 27.0 mmol/L 21.0-32.0 [facility] Globulin (S) [Mass/Vol] 4.5 g/dL 2.2-4.2 [facility] Urea nitrogen/Creatinine [Mass ratio] 10.8 mg/mg 10-20 [facility] Laboratory - Hematology and Cell countson 05-14-2022 Erythrocyte distribution width (RBC) [Entitic vol] 43.8 fL 35.1-43.[address] [facility] Erythrocyte distribution width (RBC) [Ratio] 12.9 % 11.6-14.6 [facility] MCH (RBC) [Entitic mass] 30.2 pg 27.0-32.0 [facility] MCHC Auto (RBC) [Mass/Vol]on 05-14-2022 MCHC (RBC) [Mass/Vol] 32.6 g/dL 32-36 [facility] No Panel Informationon 05-14 Estimated Creatinine Clearance Calc 51.35 ml/min [facility] Estimated GFR (MDRD) Amer 83 mL/min >60 [facility] Comment on above: GFR Calc Estimated GFR (MDRD) Non-Af Amer 68 mL/min >60 [facility] Comment on above: Non- GFR Calc Platelets bldon 05-14-2022 Platelets (Bld) [#/Vol] 363 10*3/uL 150-450 [facility] Serum or plasma albumin rosalva urement (mass/volume)on 05-14-2022 Albumin [Mass/Vol] 2.9 g/dL 3.2-5.[address] [facility] Serum or plasma albumin/glob ulin mass ratioon 05-14-2022 Albumin/Globulin [Mass ratio] 0.6 {ratio} 0.9-2.4 [facility] Serum or plasma calcium rosalva urement (mass/volume)on 05-14-2022 Calcium [Mass/Vol] 9.4 mg/dL 8.5-10.[address] [facility] Serum or plasma creatinine m easurement (mass/volume)on 05-14-2022 Creatinine [Mass/Vol] 0.93 mg/dL 0.55-1.02 [facility] Comment on above: The validity of the calculated GFR & GFRAA in patients over 70 years has not been determined. Clinical correlation is essential. Serum or plasma urea nitroge n measurement (mass/volume)on 05-14-2022 Urea nitrogen [Mass/Vol] 10 mg/dL 7-18 [facility] Thin prep Papanicolaou smear with manual screeningon 03-30-2023 Thin prep Papanicolaou smear with manual screening 22 U/L 15-37 [facility] Thin prep Papanicolaou smear with manual screening 9 5-15 [facility] Vancomycin troughon 05-15-19 Vancomycin trough [Mass/Vol] ug/mL 5.0-15.0 [facility] Comment on above: VANCOMYCIN STANDARED DRUG THERAPY TROUGH LEVEL: 5.0 - 15.0 mg/L VANCOMYCIN HIGH INTENSITY THERAPY TROUGH LEVEL: 15.0 - 20.0 mg/L High Intensity therapy recommended for serious lifethreatening infections include:- Akkgtzqpwj-Yqhjkghsdrsm-Jmodpjohq (Ventilator/Healtcare Associated)-Sepsis PLEASE CONTACT PHARMACY SERVICES (#[id number]) FOR INTERPRETATIONOF RESULTS. LABORATORYOrdered By: SYSTEM SYSTEM on 05-06-2022 Basophils (Bld) [#/Vol] 0.0 103/mcL Invalid Interpretation Code 0.0 - 0.3 10^3/mcL Workflow SS Basophils/100 WBC (Bld) 0.4 % Invalid Interpretation Code 0.0 - 2.5 % Workflow SS Calcium [Mass/Vol] 8.8 mg/dL Invalid Interpretation Code 8.7 - 10.4 mg/dL ADM SS Chloride [Moles/Vol] 103 mmol/L Invalid Interpretation Code 98 - 110 mEq/L ADM SS CO2 [Moles/Vol] 27 mmol/L Invalid Interpretation Code 22 - 32 mEq/L ADM SS Creatinine [Mass/Vol] 1.00 mg/dL Invalid Interpretation Code 0.50 - 1.20 mg/dL ADM SS Electrolyte Balance 8.0 mEq/L Invalid Interpretation Code 4.0 - 15.0 mEq/L ADM SS Eosinophils (Bld) [#/Vol] 0.0 103/mcL Invali d Interpretation Code 0.0 - 0.7 10^3/mcL Workflow SS Eosinophils/100 WBC (Bld) 0.0 % Invali d Interpretation Code 0.0 - 6.0 % Workflow SS Erythrocyte distribution width (RBC) [Ratio] 13.0 % Invalid Interpretation Code 11.5 - 15.5 % Workflow SS GFR/1.73 sq M.predicted among blacks MDRD (S/P/Bld) [Vol rate/Area] ml/min/1.73sqm Invalid Interpretation Code Chemistry S GFR/1.73 sq M.predicted among non-blacks MDRD (S/P/Bld) [Vol rate/Area] 59 ml/min/1.73sqm Invalid Interpretation Code Chemistry S Glucose [Mass/Vol] 106 mg/dL Invalid Interpretation Code 70 - 110 mg/dL ADM SS Hematocrit (Bld) [Volume fraction] 35.0 % Invalid Interpretation Code 34.0 - 46.0 % AH Workflow SS Hemoglobin (Bld) [Mass/Vol] 11.8 G/dL Inva lid Interpretation Code 12.0 - 16.0 G/dL AH Workflow SS Lymphocytes (Bld) [#/Vol] 1.1 103/mcL Invali d Interpretation Code 0.9 - 4.3 10^3/mcL Workflow SS Lymphocytes/100 WBC (Bld) 14.2 % Invali d Interpretation Code 20.0 - 40.0 % Workflow SS MCH (RBC) [Entitic mass] 31.0 pg Invalid Interpretation Code 27.0 - 33.0 pg Workflow SS MCHC 33.7 G/dL Invalid Interpretation Code 32.0 - 36.0 G/dL Workflow SS MCV (RBC) [Entitic vol] 92.0 fL Invalid Interpretation Code 80.0 - 99.0 fL Workflow SS Monocytes (Bld) [#/Vol] 0.8 103/mcL Invalid Interpretation Code 0.1 - 1.4 10^3/mcL Workflow SS Monocytes/100 WBC (Bld) 10.3 % Invalid Interpretation Code 2.0 - 13.0 % Workflow SS Neutrophils (Bld) [#/Vol] 5.6 103/mcL Invali d Interpretation Code 2.3 - 8.1 10^3/mcL Workflow SS Neutrophils/100 WBC (Bld) 75.1 % Invali d Interpretation Code 50.0 - 75.0 % Workflow SS Platelet mean volume (Bld) [Entitic vol] 7.8 fL Invalid Interpretation Code 6.6 - 10.5 fL Workflow SS Platelets (Bld) [#/Vol] 419 103/mcL Invalid Interpretation Code 150 - 450 10^3/mcL Workflow SS Potassium [Moles/Vol] 3.6 mmol/L Invalid Interpretation Code 3.5 - 5.0 mEq/L ADM SS Comment on above: Result Comment: Spec imen slightly hemolyzed. RBC (Bld) [#/Vol] 3.80 106/mcL Invalid Interpretation Code 4.10 - 5.30 10^6/mcL Workflow SS Sodium [Moles/Vol] 138 mmol/L Invalid Interpretation Code 136 - 145 mEq/L ADM SS Urea nitrogen [Mass/Vol] 9.0 mg/dL Invalid Interpretation Code 8.0 - 22.0 mg/dL ADM SS Urea nitrogen/Creatinine [Mass ratio] 9.0 ratio Invalid Interpretation Code 10.0 - 22.0 ratio AH ADM SS WBC (Bld) [#/Vol] 7.4 103/mcL Invalid Interpretation Code 4.5 - 10.8 10^3/mcL Workflow SS LABORATORYOrdered By: Adrianna Martinez on 05-05-2022 Clostridium difficile PCR Negative 1 (05/05/22 9:26 AM) Invalid Interpretation Code Negative Auto Viro/Sero SS Comment on above: Result Comment: Note s [id number] Clostridium difficile PCR Int No tcdB gene DNA detected. Negative test results may occur from improper collection, handling or storage of specimen, technical error, or extremely low levels of target below the limit of detection of the assay. Invalid Interpretation Code Auto Viro/Sero SS LABORATORYOrdered By: SYSTEM SYSTEM on 05-05-2022 Basophils (Bld) [#/Vol] 0.1 103/mcL Invalid Interpretation Code 0.0 - 0.3 10^3/mcL Workflow SS Basophils/100 WBC (Bld) 1.3 % Invalid Interpretation Code 0.0 - 2.5 % Workflow SS Calcium [Mass/Vol] 9.3 mg/dL Invalid Interpretation Code 8.7 - 10.4 mg/dL ADM SS Chloride [Moles/Vol] 106 mmol/L Invalid Interpretation Code 98 - 110 mEq/L ADM SS CO2 [Moles/Vol] 29 mmol/L Invalid Interpretation Code 22 - 32 mEq/L ADM SS Creatinine [Mass/Vol] 1.00 mg/dL Invalid Interpretation Code 0.50 - 1.20 mg/dL ADM SS Electrolyte Balance 9.0 mEq/L Invalid Interpretation Code 4.0 - 15.0 mEq/L ADM SS Eosinophils (Bld) [#/Vol] 0.0 103/mcL Invali d Interpretation Code 0.0 - 0.7 10^3/mcL Workflow SS Eosinophils/100 WBC (Bld) 0.1 % Invali d Interpretation Code 0.0 - 6.0 % AH Workflow SS Erythrocyte distribution width (RBC) [Ratio] 13.2 % Invalid Interpretation Code 11.5 - 15.5 % AH Workflow SS GFR/1.73 sq M.predicted among blacks MDRD (S/P/Bld) [Vol rate/Area] ml/min/1.73sqm Invalid Interpretation Code Chemistry S GFR/1.73 sq M.predicted among non-blacks MDRD (S/P/Bld) [Vol rate/Area] 59 ml/min/1.73sqm Invalid Interpretation Code Chemistry S Glucose [Mass/Vol] 88 mg/dL Invalid Interpretation Code 70 - 110 mg/dL AH ADM SS Hematocrit (Bld) [Volume fraction] 34.8 % Invalid Interpretation Code 34.0 - 46.0 % AH Workflow SS Hemoglobin (Bld) [Mass/Vol] 11.7 G/dL Inva lid Interpretation Code 12.0 - 16.0 G/dL AH Workflow SS Lymphocytes (Bld) [#/Vol] 1.4 103/mcL Invali d Interpretation Code 0.9 - 4.3 10^3/mcL Workflow SS Lymphocytes/100 WBC (Bld) 15.0 % Invali d Interpretation Code 20.0 - 40.0 % AH Workflow SS MCH (RBC) [Entitic mass] 30.7 pg Invalid Interpretation Code 27.0 - 33.0 pg AH Workflow SS MCHC 33.5 G/dL Invalid Interpretation Code 32.0 - 36.0 G/dL AH Workflow SS MCV (RBC) [Entitic vol] 91.5 fL Invalid Interpretation Code 80.0 - 99.0 fL AH Workflow SS Monocytes (Bld) [#/Vol] 0.8 103/mcL Invalid Interpretation Code 0.1 - 1.4 10^3/mcL AH Workflow SS Monocytes/100 WBC (Bld) 9.0 % Invalid Interpretation Code 2.0 - 13.0 % AH Workflow SS Neutrophils (Bld) [#/Vol] 6.9 103/mcL Invali d Interpretation Code 2.3 - 8.1 10^3/mcL AH Workflow SS Neutrophils/100 WBC (Bld) 74.6 % Invali d Interpretation Code 50.0 - 75.0 % AH Workflow SS Platelet mean volume (Bld) [Entitic vol] 8.5 fL Invalid Interpretation Code 6.6 - 10.5 fL AH Workflow SS Platelets (Bld) [#/Vol] 364 103/mcL Invalid Interpretation Code 150 - 450 10^3/mcL Workflow SS Potassium [Moles/Vol] 4.4 mmol/L Invalid Interpretation Code 3.5 - 5.0 mEq/L ADM SS RBC (Bld) [#/Vol] 3.80 106/mcL Invalid Interpretation Code 4.10 - 5.30 10^6/mcL Workflow SS Sodium [Moles/Vol] 144 mmol/L Invalid Interpretation Code 136 - 145 mEq/L ADM SS Urea nitrogen [Mass/Vol] 9.0 mg/dL Invalid Interpretation Code 8.0 - 22.0 mg/dL ADM SS Urea nitrogen/Creatinine [Mass ratio] 9.0 ratio Invalid Interpretation Code 10.0 - 22.0 ratio ADM SS Vancomycin trough [Mass/Vol] 13.4 ug/mL Invalid Interpretation Code 5.0 - 20.0 mcg/mL ADM SS WBC (Bld) [#/Vol] 9.2 103/mcL Invalid Interpretation Code 4.5 - 10.8 10^3/mcL Workflow SS LABORATORYOrdered By: Renay Alfaro on 05-05-2022 LDose Vancomycin:(trough) Unknown (05/05/22 6:47 AM) Invalid Interpretation Code Chemistry S LABORATORYOrdered By: SYSTEM SYSTEM on 05-04-2022 Basophils (Bld) [#/Vol] 0.0 103/mcL Invalid Interpretation Code 0.0 - 0.3 10^3/mcL Workflow SS Basophils/100 WBC (Bld) 0.5 % Invalid Interpretation Code 0.0 - 2.5 % Workflow SS Calcium [Mass/Vol] 9.1 mg/dL Invalid Interpretation Code 8.7 - 10.4 mg/dL ADM SS Chloride [Moles/Vol] 104 mmol/L Invalid Interpretation Code 98 - 110 mEq/L ADM SS CO2 [Moles/Vol] 29 mmol/L Invalid Interpretation Code 22 - 32 mEq/L ADM SS Creatinine [Mass/Vol] 0.90 mg/dL Invalid Interpretation Code 0.50 - 1.20 mg/dL ADM SS CRP [Mass/Vol] 5.1 mg/dL Invalid Interpretation Code 0.0 - 1.0 mg/dL ADM SS Electrolyte Balance 12.0 mEq/L Invalid Interpretation Code 4.0 - 15.0 mEq/L ADM SS Eosinophils (Bld) [#/Vol] 0.0 103/mcL Invali d Interpretation Code 0.0 - 0.7 10^3/mcL AH Workflow SS Eosinophils/100 WBC (Bld) 0.0 % Invali d Interpretation Code 0.0 - 6.0 % AH Workflow SS Erythrocyte distribution width (RBC) [Ratio] 13.2 % Invalid Interpretation Code 11.5 - 15.5 % AH Workflow SS GFR/1.73 sq M.predicted among blacks MDRD (S/P/Bld) [Vol rate/Area] ml/min/1.73sqm Invalid Interpretation Code Chemistry S GFR/1.73 sq M.predicted among non-blacks MDRD (S/P/Bld) [Vol rate/Area] ml/min/1.73sqm Invalid Interpretation Code Chemistry S Glucose [Mass/Vol] 81 mg/dL Invalid Interpretation Code 70 - 110 mg/dL ADM SS Hematocrit (Bld) [Volume fraction] 33.8 % Invalid Interpretation Code 34.0 - 46.0 % Workflow SS Hemoglobin (Bld) [Mass/Vol] 11.4 G/dL Inva lid Interpretation Code 12.0 - 16.0 G/dL Workflow SS Lymphocytes (Bld) [#/Vol] 1.3 103/mcL Invali d Interpretation Code 0.9 - 4.3 10^3/mcL Workflow SS Lymphocytes/100 WBC (Bld) 15.2 % Invali d Interpretation Code 20.0 - 40.0 % AH Workflow SS MCH (RBC) [Entitic mass] 31.0 pg Invalid Interpretation Code 27.0 - 33.0 pg AH Workflow SS MCHC 33.7 G/dL Invalid Interpretation Code 32.0 - 36.0 G/dL AH Workflow SS MCV (RBC) [Entitic vol] 92.1 fL Invalid Interpretation Code 80.0 - 99.0 fL Workflow SS Monocytes (Bld) [#/Vol] 0.8 103/mcL Invalid Interpretation Code 0.1 - 1.4 10^3/mcL AH Workflow SS Monocytes/100 WBC (Bld) 9.0 % Invalid Interpretation Code 2.0 - 13.0 % Workflow SS Neutrophils (Bld) [#/Vol] 6.5 103/mcL Invali d Interpretation Code 2.3 - 8.1 10^3/mcL AH Workflow SS Neutrophils/100 WBC (Bld) 75.3 % Invali d Interpretation Code 50.0 - 75.0 % AH Workflow SS Platelet mean volume (Bld) [Entitic vol] 8.1 fL Invalid Interpretation Code 6.6 - 10.5 fL AH Workflow SS Platelets (Bld) [#/Vol] 366 103/mcL Invalid Interpretation Code 150 - 450 10^3/mcL AH Workflow SS Potassium [Moles/Vol] 3.6 mmol/L Invalid Interpretation Code 3.5 - 5.0 mEq/L AH ADM SS RBC (Bld) [#/Vol] 3.67 106/mcL Invalid Interpretation Code 4.10 - 5.30 10^6/mcL AH Workflow SS Sodium [Moles/Vol] 145 mmol/L Invalid Interpretation Code 136 - 145 mEq/L AH ADM SS Urea nitrogen [Mass/Vol] 9.0 mg/dL Invalid Interpretation Code 8.0 - 22.0 mg/dL AH ADM SS Urea nitrogen/Creatinine [Mass ratio] 10.0 ratio Invalid Interpretation Code 10.0 - 22.0 ratio AH ADM SS WBC (Bld) [#/Vol] 8.7 103/mcL Invalid Interpretation Code 4.5 - 10.8 10^3/mcL AH Workflow SS LABORATORYOrdered By: SYSTEM SYSTEM on 05-03-2022 Albumin BCP dye [Mass/Vol] 2.5 G/dL Inval id Interpretation Code 3.2 - 4.8 G/dL ADM SS Albumin/Globulin [Mass ratio] 0.7 {ratio} Invalid Interpretation Code 0.9 - 1.6 ratio ADM SS ALP [Catalytic activity/Vol] 253 U/L Invalid Interpretation Code 38 - 126 U/L ADM SS ALT No additional P-5'-P [Catalytic activity/Vol] 25 U/L Invalid Interpretation Code 10 - 49 U/L AH ADM SS AST [Catalytic activity/Vol] 33 U/L Invalid Interpretation Code 8 - 34 U/L AH ADM SS Bilirubin [Mass/Vol] 0.20 mg/dL Invalid Interpretation Code 0.20 - 1.20 mg/dL AH ADM SS Globulin 3.7 G/dL Invalid Interpretation Code 1.5 - 3.8 G/dL AH ADM SS Protein [Mass/Vol] 6.2 G/dL Invalid Interpretation Code 5.7 - 8.2 G/dL AH ADM SS LABORATORYOrdered By: SYSTEM SYSTEM on 05-02-2022 Albumin BCP dye [Mass/Vol] 2.5 G/dL Inval id Interpretation Code 3.2 - 4.8 G/dL AH ADM SS Albumin/Globulin [Mass ratio] 0.7 {ratio} Invalid Interpretation Code 0.9 - 1.6 ratio AH ADM SS ALP [Catalytic activity/Vol] 241 U/L Invalid Interpretation Code 38 - 126 U/L ADM SS ALT No additional P-5'-P [Catalytic activity/Vol] 29 U/L Invalid Interpretation Code 10 - 49 U/L AH ADM SS AST [Catalytic activity/Vol] 38 U/L Invalid Interpretation Code 8 - 34 U/L AH ADM SS Bilirubin [Mass/Vol] 0.30 mg/dL Invalid Interpretation Code 0.20 - 1.20 mg/dL AH ADM SS CK [Catalytic activity/Vol] 47 U/L Inva lid Interpretation Code 7 - 185 U/L ADM SS Globulin 3.6 G/dL Invalid Interpretation Code 1.5 - 3.8 G/dL ADM SS Magnesium [Mass/Vol] 2.0 mg/dL Invalid Interpretation Code 1.6 - 2.4 mg/dL ADM SS Protein [Mass/Vol] 6.1 G/dL Invalid Interpretation Code 5.7 - 8.2 G/dL AH ADM SS LABORATORYOrdered By: Martín Curtis on 05-02-2022 INR Coag (PPP) [Relative time] 0.9 {INR} Invalid Interpretation Code AH Auto Coag SS PT Coag (PPP) [Time] 10.8 s Invalid Interpretation Code 9.0 - 14.9 seconds AH Auto Coag SS LABORATORYOrdered By: Ashley Heck on 05-02-2022 Lactate [Moles/Vol] 1.0 mmol/L Invalid Interpretation Code 0.2 - 2.0 mmol/L AH Auto Chem SS LABORATORYOrdered By: SYSTEM SYSTEM on 05-01-2022 CRP [Mass/Vol] 15.1 mg/dL Invalid Interpretation Code 0.0 - 0.9 mg/dL AO ADM SS Calcium [Mass/Vol] 8.4 mg/dL Invalid Interpretation Code 8.4 - 10.2 mg/dL AO ADM SS Chloride [Moles/Vol] 107 mmol/L Invalid Interpretation Code 98 - 107 mmol/L AO ADM SS CO2 [Moles/Vol] 28 mmol/L Invalid Interpretation Code 22 - 29 mmol/L AO ADM SS Creatinine [Mass/Vol] 1.12 mg/dL Invalid Interpretation Code 0.55 - 1.02 mg/dL AO ADM SS Electrolyte Balance 9.0 mEq/L Invalid Interpretation Code 4.0 - 15.0 mEq/L AO ADM SS GFR 63 ml/min/1.73sqm Invalid Interpretation Code AO Chemistry S GFR Non- 52 ml/min/1.73sqm Inval id Interpretation Code AO Chemistry S Glucose [Mass/Vol] 97 mg/dL Invalid Interpretation Code 70 - 105 mg/dL AO ADM SS Magnesium [Mass/Vol] 2.1 mg/dL Invalid Interpretation Code 1.8 - 2.4 mg/dL AO ADM SS Potassium [Moles/Vol] 3.8 mmol/L Invalid Interpretation Code 3.5 - 5.1 mmol/L AO ADM SS Sodium [Moles/Vol] 144 mmol/L Invalid Interpretation Code 136 - 145 mmol/L AO ADM SS Urea nitrogen [Mass/Vol] 12 mg/dL Invalid Interpretation Code 7 - 18 mg/dL AO ADM SS Urea nitrogen/Creatinine [Mass ratio] 11 ratio Invalid Interpretation Code 7 - 27 ratio AO ADM SS Vancomycin trough [Mass/Vol] 16.5 ug/mL Invalid Interpretation Code 5.0 - 20.0 mcg/mL AO ADM SS LABORATORYOrdered By: Carole Lott on 05-01-2022 ESR 15 minute reading (Bld) [Velocity] 65 mm/hr Invalid Interpretation Code 0 - 20 mm/hr AO Man Heme SS LABORATORYOrdered By: Emma Mares on 05-01-2022 Basophil, Absolute 0.0 103/mcL Invalid Interpretation Code 0.0 - 0.2 10^3/mcL AO Workflow SS Basophils/100 WBC (Bld) 0.4 % Invalid Interpretation Code 0.0 - 2.5 % AO Workflow SS Eosinophil, Absolute 0.0 103/mcL Invalid Interpretation Code 0.0 - 0.4 10^3/mcL AO Workflow SS Eosinophils/100 WBC (Bld) 0.0 % Invali d Interpretation Code 0.0 - 7.0 % AO Workflow SS Erythrocyte distribution width (RBC) [Ratio] 13.6 % Invalid Interpretation Code 11.5 - 14.5 % AO Workflow SS Hematocrit (Bld) [Volume fraction] 30.0 % Invalid Interpretation Code 37.0 - 47.0 % AO Workflow SS Hemoglobin (Bld) [Mass/Vol] 10.2 G/dL Inva lid Interpretation Code 12.0 - 16.0 G/dL AO Workflow SS Lymphocyte, Absolute 1.1 103/mcL Invalid Interpretation Code 0.8 - 3.9 10^3/mcL AO Workflow SS Lymphocytes/100 WBC (Bld) 12.8 % Invali d Interpretation Code 10.0 - 50.0 % AO Workflow SS MCH (RBC) [Entitic mass] 30.9 pg Invalid Interpretation Code 27.0 - 31.2 pg AO Workflow SS MCHC 34.0 G/dL Invalid Interpretation Code 33.0 - 37.0 G/dL AO Workflow SS MCV (RBC) [Entitic vol] 90.9 fL Invalid Interpretation Code 80.0 - 94.0 fL AO Workflow SS Monocyte, Absolute 0.8 103/mcL Invalid Interpretation Code 0.2 - 1.0 10^3/mcL AO Workflow SS Monocytes/100 WBC (Bld) 9.0 % Invalid Interpretation Code 1.7 - 13.0 % AO Workflow SS Neutrophil, Absolute 6.6 103/mcL Invalid Interpretation Code 2.9 - 6.2 10^3/mcL AO Workflow SS Neutrophils/100 WBC (Bld) 77.8 % Invali d Interpretation Code 37.0 - 80.0 % AO Workflow SS Platelet mean volume (Bld) [Entitic vol] 8.2 fL Invalid Interpretation Code 7.4 - 10.4 fL AO Workflow SS Platelets (Bld) [#/Vol] 288 103/mcL Invalid Interpretation Code 130 - 400 10^3/mcL AO Workflow SS RBC (Bld) [#/Vol] 3.30 106/mcL Invalid Interpretation Code 4.20 - 5.40 10^6/mcL AO Workflow SS WBC (Bld) [#/Vol] 8.4 103/mcL Invalid Interpretation Code 4.6 - 10.8 10^3/mcL AO Workflow SS LABORATORYOrdered By: Adrianna Burdick on 05-01-2022 LDose Vancomycin:(trough) See eMAR (05/01/22 1:52 AM) Invalid Interpretation Code AO Chemistry S No Panel Informationon 05-01 Culture Wound Aerobe No growth to date [facility] Work Phone: GS 1+ Polymorphonuclear cells Rare Mononuclear cells Rare Epithelial cells No organisms seen. [facility] Work Phone: LABORATORYOrdered By: Gisella Orozco on 04-30-2022 Basophil, Absolute 0.1 103/mcL Invalid Interpretation Code 0.0 - 0.2 10^3/mcL AO Workflow SS Basophils/100 WBC (Bld) 0.4 % Invalid Interpretation Code 0.0 - 2.5 % AO Workflow SS Eosinophil, Absolute 0.0 103/mcL Invalid Interpretation Code 0.0 - 0.4 10^3/mcL AO Workflow SS Eosinophils/100 WBC (Bld) 0.0 % Invali d Interpretation Code 0.0 - 7.0 % AO Workflow SS Erythrocyte distribution width (RBC) [Ratio] 13.3 % Invalid Interpretation Code 11.5 - 14.5 % AO Workflow SS Hematocrit (Bld) [Volume fraction] 30.7 % Invalid Interpretation Code 37.0 - 47.0 % AO Workflow SS Hemoglobin (Bld) [Mass/Vol] 10.4 G/dL Inva lid Interpretation Code 12.0 - 16.0 G/dL AO Workflow SS Lymphocyte, Absolute 1.0 103/mcL Invalid Interpretation Code 0.8 - 3.9 10^3/mcL AO Workflow SS Lymphocytes/100 WBC (Bld) 7.5 % Invali d Interpretation Code 10.0 - 50.0 % AO Workflow SS MCH (RBC) [Entitic mass] 30.8 pg Invalid Interpretation Code 27.0 - 31.2 pg AO Workflow SS MCHC 33.9 G/dL Invalid Interpretation Code 33.0 - 37.0 G/dL AO Workflow SS MCV (RBC) [Entitic vol] 90.7 fL Invalid Interpretation Code 80.0 - 94.0 fL AO Workflow SS Monocyte, Absolute 1.1 103/mcL Invalid Interpretation Code 0.2 - 1.0 10^3/mcL AO Workflow SS Monocytes/100 WBC (Bld) 8.3 % Invalid Interpretation Code 1.7 - 13.0 % AO Workflow SS Neutrophil, Absolute 11.0 103/mcL Invalid Interpretation Code 2.9 - 6.2 10^3/mcL AO Workflow SS Neutrophils/100 WBC (Bld) 83.8 % Invali d Interpretation Code 37.0 - 80.0 % AO Workflow SS Platelet mean volume (Bld) [Entitic vol] 8.0 fL Invalid Interpretation Code 7.4 - 10.4 fL AO Workflow SS Platelets (Bld) [#/Vol] 292 103/mcL Invalid Interpretation Code 130 - 400 10^3/mcL AO Workflow SS RBC (Bld) [#/Vol] 3.39 106/mcL Invalid Interpretation Code 4.20 - 5.40 10^6/mcL AO Workflow SS WBC (Bld) [#/Vol] 13.1 103/mcL Invalid Interpretation Code 4.6 - 10.8 10^3/mcL AO Workflow SS LABORATORYOrdered By: SYSTEM SYSTEM on 04-30-2022 Calcium [Mass/Vol] 8.3 mg/dL Invalid Interpretation Code 8.4 - 10.2 mg/dL AO ADM SS Chloride [Moles/Vol] 103 mmol/L Invalid Interpretation Code 98 - 107 mmol/L AO ADM SS CO2 [Moles/Vol] 24 mmol/L Invalid Interpretation Code 22 - 29 mmol/L AO ADM SS Creatinine [Mass/Vol] 0.89 mg/dL Invalid Interpretation Code 0.55 - 1.02 mg/dL AO ADM SS Electrolyte Balance 10.0 mEq/L Invalid Interpretation Code 4.0 - 15.0 mEq/L AO ADM SS GFR 82 ml/min/1.73sqm Invalid Interpretation Code AO Chemistry S GFR Non- 67 ml/min/1.73sqm Inval id Interpretation Code AO Chemistry S Glucose [Mass/Vol] 104 mg/dL Invalid Interpretation Code 70 - 105 mg/dL AO ADM SS Magnesium [Mass/Vol] 2.0 mg/dL Invalid Interpretation Code 1.8 - 2.4 mg/dL AO ADM SS Potassium [Moles/Vol] 3.8 mmol/L Invalid Interpretation Code 3.5 - 5.1 mmol/L AO ADM SS Sodium [Moles/Vol] 137 mmol/L Invalid Interpretation Code 136 - 145 mmol/L AO ADM SS Urea nitrogen [Mass/Vol] 15 mg/dL Invalid Interpretation Code 7 - 18 mg/dL AO ADM SS Urea nitrogen/Creatinine [Mass ratio] 17 ratio Invalid Interpretation Code 7 - 27 ratio AO ADM SS LABORATORYOrdered By: SYSTEM SYSTEM on 04-29-2022 Albumin BCP dye [Mass/Vol] 3.1 G/dL Inval id Interpretation Code 3.5 - 5.0 G/dL AO ADM SS Albumin/Globulin [Mass ratio] 0.7 {ratio} Invalid Interpretation Code 1.1 - 2.5 ratio AO ADM SS ALP [Catalytic activity/Vol] 161 U/L Invalid Interpretation Code 40 - 135 U/L AO ADM SS ALT With P-5'-P [Catalytic activity/Vol] 27 U/L Invalid Interpretation Code 14 - 59 U/L AO ADM SS AST With P-5'-P [Catalytic activity/Vol] 34 U/L Invalid Interpretation Code 10 - 40 U/L AO ADM SS Bilirubin [Mass/Vol] 0.2 mg/dL Invalid Interpretation Code 0.2 - 1.0 mg/dL AO ADM SS Calcium [Mass/Vol] 8.8 mg/dL Invalid Interpretation Code 8.4 - 10.2 mg/dL AO ADM SS Chloride [Moles/Vol] 98 mmol/L Invalid Interpretation Code 98 - 107 mmol/L AO ADM SS CO2 [Moles/Vol] 26 mmol/L Invalid Interpretation Code 22 - 29 mmol/L AO ADM SS Creatinine [Mass/Vol] 0.77 mg/dL Invalid Interpretation Code 0.55 - 1.02 mg/dL AO ADM SS Electrolyte Balance 12.0 mEq/L Invalid Interpretation Code 4.0 - 15.0 mEq/L AO ADM SS GFR 97 ml/min/1.73sqm Invalid Interpretation Code AO Chemistry S GFR Non- 80 ml/min/1.73sqm Inval id Interpretation Code AO Chemistry S Globulin 4.2 G/dL Invalid Interpretation Code AO ADM SS Glucose [Mass/Vol] 117 mg/dL Invalid Interpretation Code 70 - 105 mg/dL AO ADM SS Lactate [Moles/Vol] 1.3 mmol/L Invalid Interpretation Code 0.4 - 2.0 mmol/L AO ADM SS Potassium [Moles/Vol] 3.9 mmol/L Invalid Interpretation Code 3.5 - 5.1 mmol/L AO ADM SS Protein [Mass/Vol] 7.3 G/dL Invalid Interpretation Code 6.4 - 8.2 G/dL AO ADM SS Sodium [Moles/Vol] 136 mmol/L Invalid Interpretation Code 136 - 145 mmol/L AO ADM SS Urea nitrogen [Mass/Vol] 12 mg/dL Invalid Interpretation Code 7 - 18 mg/dL AO ADM SS Urea nitrogen/Creatinine [Mass ratio] 16 ratio Invalid Interpretation Code 7 - 27 ratio AO ADM SS LABORATORYOrdered By: Cristin Pino on 04-29-2022 Bands 5.0 1 Invalid Interpretation Code 0.0 - 5.0 % AO Workflow SS Basophil %, Manual 0.0 1 Invalid Interpretation Code 0.0 - 2.5 % AO Workflow SS Basophil, Abs Manual 0.0 103/mcL Invalid Interpretation Code 0.0 - 0.2 10^3/mcL AO Workflow SS Eosinophil %, Manual 0.0 1 Invalid Interpretation Code 0.0 - 7.0 % AO Workflow SS Eosinophils (Bld) [#/Vol] 0.0 103/mcL Invali d Interpretation Code 0.0 - 0.4 10^3/mcL AO Workflow SS Erythrocyte distribution width (RBC) [Ratio] 13.5 % Invalid Interpretation Code 11.5 - 14.5 % AO Workflow SS Hematocrit (Bld) [Volume fraction] 37.7 % Invalid Interpretation Code 37.0 - 47.0 % AO Workflow SS Hemoglobin (Bld) [Mass/Vol] 12.8 G/dL Inva lid Interpretation Code 12.0 - 16.0 G/dL AO Workflow SS Lymphocyte %, Manual 3.0 1 Invalid Interpretation Code 10.0 - 50.0 % AO Workflow SS Lymphocyte, Abs Manual 0.5 103/mcL Invalid Interpretation Code 0.8 - 3.9 10^3/mcL AO Workflow SS MCH (RBC) [Entitic mass] 30.9 pg Invalid Interpretation Code 27.0 - 31.2 pg AO Workflow SS MCHC 34.0 G/dL Invalid Interpretation Code 33.0 - 37.0 G/dL AO Workflow SS MCV (RBC) [Entitic vol] 90.9 fL Invalid Interpretation Code 80.0 - 94.0 fL AO Workflow SS Monocyte %, Manual 3.0 1 Invalid Interpretation Code 1.7 - 13.0 % AO Workflow SS Monocyte distribution width Auto (Bld) [Entitic vol] 30.22 Invalid Interpretation Code 0.00 - 20.00 AO Workflow SS Comment on above: Result Comment: The predictive value of MDW for identifying sepsis in patients with hematological abnormalities has not been established Monocyte, Abs Manual 0.4 103/mcL Invalid Interpretation Code 0.2 - 1.0 10^3/mcL AO Workflow SS Neutrophil %, Manual 89.0 1 Invalid Interpretation Code 37.0 - 80.0 % AO Workflow SS Neutrophil, Abs Manual 14.0 103/mcL Invalid Interpretation Code 2.9 - 6.2 10^3/mcL AO Workflow SS Nucleated RBC 0.0 /100 WBC Invalid Interpretation Code AO Workflow SS Platelet Estimate Slt Increased *NA* (04/29/22 2:00 PM) Invalid Interpretation Code AO Workflow SS Platelet mean volume (Bld) [Entitic vol] 7.4 fL Invalid Interpretation Code 7.4 - 10.4 fL AO Workflow SS Platelets (Bld) [#/Vol] 344 103/mcL Invalid Interpretation Code 130 - 400 10^3/mcL AO Workflow SS RBC (Bld) [#/Vol] 4.15 106/mcL Invalid Interpretation Code 4.20 - 5.40 10^6/mcL AO Workflow SS RBC morphology finding Nom (Bld) Normal (04/29/22 2:00 PM) Invalid Interpretation Code AO Hematology S WBC (Bld) [#/Vol] 15.7 103/mcL Invalid Interpretation Code 4.6 - 10.8 10^3/mcL AO Workflow SS No Panel Informationon 04-29 Culture Wound Aerobe Few Staphylococcus aureus SEBLE to follow [employer] A Beta Hemolytic Strep (Strep pyogenes) Sensitivity testing is not recommended for one of the following reasons: 1. Established susceptibility patterns are available or 2. Interpretative criteria are not available. [facility] Work Phone: GS Rare Epithelial cell s No organisms seen. [facility] Work Phone: Microscopic examination of blood, culture Culture has been received in lab and is no growth to date. Routine cultures are held for 5 days. [facility] Work Phone: LABORATORYOrdered By: SYSTEM SYSTEM on 01-29-2022 Albumin BCP dye [Mass/Vol] 3.5 G/dL Inval id Interpretation Code 3.5 - 5.0 G/dL AO ADM SS Albumin/Globulin [Mass ratio] 0.9 {ratio} Invalid Interpretation Code 1.1 - 2.5 ratio AO ADM SS ALP [Catalytic activity/Vol] 195 U/L Invalid Interpretation Code 40 - 135 U/L AO ADM SS ALT With P-5'-P [Catalytic activity/Vol] 42 U/L Invalid Interpretation Code 14 - 59 U/L AO ADM SS AST With P-5'-P [Catalytic activity/Vol] 43 U/L Invalid Interpretation Code 10 - 40 U/L AO ADM SS Bilirubin [Mass/Vol] 0.2 mg/dL Invalid Interpretation Code 0.2 - 1.0 mg/dL AO ADM SS Calcium [Mass/Vol] 9.3 mg/dL Invalid Interpretation Code 8.4 - 10.2 mg/dL AO ADM SS Chloride [Moles/Vol] 103 mmol/L Invalid Interpretation Code 98 - 107 mmol/L AO ADM SS CO2 [Moles/Vol] 30 mmol/L Invalid Interpretation Code 22 - 29 mmol/L AO ADM SS Cobalamin (Vitamin B12) [Mass/Vol] 432 pg/mL Invalid Interpretation Code 211 - 911 pg/mL AH ADM SS Creatinine [Mass/Vol] 0.65 mg/dL Invalid Interpretation Code 0.55 - 1.02 mg/dL AO ADM SS Electrolyte Balance 8.0 mEq/L Invalid Interpretation Code 4.0 - 15.0 mEq/L AO ADM SS Globulin 3.8 G/dL Invalid Interpretation Code AO ADM SS Glucose [Mass/Vol] 103 mg/dL Invalid Interpretation Code 70 - 105 mg/dL AO ADM SS Potassium [Moles/Vol] 4.2 mmol/L Invalid Interpretation Code 3.5 - 5.1 mmol/L AO ADM SS Protein [Mass/Vol] 7.3 G/dL Invalid Interpretation Code 6.4 - 8.2 G/dL AO ADM SS Sodium [Moles/Vol] 141 mmol/L Invalid Interpretation Code 136 - 145 mmol/L AO ADM SS Urea nitrogen [Mass/Vol] 10 mg/dL Invalid Interpretation Code 7 - 18 mg/dL AO ADM SS Urea nitrogen/Creatinine [Mass ratio] 15 ratio Invalid Interpretation Code 7 - 27 ratio AO ADM SS LABORATORYOrdered By: Schuyler Dorantes on 01-29-2022 Cholesterol [Mass/Vol] 272 mg/dL Invalid Interpretation Code 0 - 200 mg/dL AO ADM SS Cholesterol in HDL [Mass/Vol] 71 mg/dL Invalid Interpretation Code 40 - 60 mg/dL AO ADM SS Cholesterol in LDL [Mass/Vol] 162 mg/dL Invalid Interpretation Code 0 - 130 mg/dL AO ADM SS Triglyceride [Mass/Vol] 193 mg/dL Invalid Interpretation Code 0 - 150 mg/dL AO ADM SS LABORATORYOrdered By: Zee Alva on 01-29-2022 HCV Ab IA Ql Non-Reactive (01/29/22 10:16 AM) Invalid Interpretation Code Non-Reacti ve AH ADM SS HCV Ab IA Ql Nonreactive: Samples with a value < 0.80 are considered nonreactive (negative) for antibodies to HCV.A negative test result does not exclude the possibility of exposure to or infection with HCV. HCV antibodies may be undetectable in some stages of the infection and in some clinical conditions. Invalid Interpretation Code EDDIE [facility] 11-06-2021 [facility] Office Visit (SPAG[facility] ) PARIS MONCADA ([id number]) 1970 F Date Time Provider Department 11/06/21 9:30 AM MARCELLUS ROSADO During your visit today, we recorded the following information about you: Pulse Respiration Normal [facility] 10-02-2021 [facility] Office Visit (SPAG[facility] ) PARIS MONCADA ([id number]) 1970 F Date Time Provider Department 10/02/21 9:00 AM SILVANA JOE During your visit today, we recorded the following information about you: Pulse Respiration Normal [facility] Vital Signs Date Time Vital Sign Value Performing Clinician Facility 09-11-2024 14:26-0400 Body height 137.16 cm [employer] Work Phone: [facility] 09-11-2024 14:26-0400 Body mass index (BMI) [Ratio] 24.5 kg/m2 [employer] Work Phone: [facility] 09-11-2024 14:26-0400 Body weight 46.03 kg [employer] Work Phone: [facility] 08-30-2024 16:14-0400 Diastolic blood pressure 78 mm[Hg] Britta Bridenthal [employer] Work Phone: [facility] [employer] 08-30-2024 16:14-0400 Heart rate 97 /min Britta Bridenthal [employer] Work Phone: [facility] [employer] 08-30-2024 16:14-0400 Systolic blood pressure 129 mm[Hg] Britta Bridenthal [employer] Work Phone: [facility] [employer] 08-30-2024 15:33-0400 Body mass index (BMI) [Ratio] 23.87 kg/m2 Britta Bridenthal [employer] Work Phone: [facility] [employer] 08-30-2024 15:33-0400 Body temperature 98.91 [degF] Britta Bridenthal [employer] Work Phone: [facility] [employer] 08-30-2024 15:33-0400 Body weight 44.91 kg Britta Bridenthal [employer] Work Phone: [facility] [employer] 08-30-2024 15:33-0400 Respiratory rate 24 /min Britta Bridenthal [employer] Work Phone: [facility] [employer] 08-30-2024 15:33-0400 SaO2% (BldA) [Mass fraction] 97 % Brtita Bridenthal [employer] Work Phone: [facility] [employer] 05-31-2024 16:03-0400 Diastolic blood pressure 78 mm[Hg] Britta Bridenthal [employer] Work Phone: [facility] [employer] 05-31-2024 16:03-0400 Heart rate 98 /min Britta Bridenthal [employer] Work Phone: [facility] [employer] 05-31-2024 16:03-0400 Systolic blood pressure 135 mm[Hg] Britta Bridenthal [employer] Work Phone: [facility] [employer] 05-31-2024 15:19-0400 Body mass index (BMI) [Ratio] 24.26 kg/m2 Britta Bridenthal [employer] Work Phone: [facility] [employer] 05-31-2024 15:19-0400 Body temperature 98.29 [degF] Britta Bridenthal [employer] Work Phone: [facility] [employer] 05-31-2024 15:19-0400 Body weight 45.63 kg Britta Carlottaenthal [employer] Work Phone: [facility] [employer] 05-31-2024 15:19-0400 Respiratory rate 18 /min Britta Bridenthal [employer] Work Phone: [facility] [employer] 05-31-2024 15:19-0400 SaO2% (BldA) [Mass fraction] 97 % Britta Carlottaenthal [employer] Work Phone: [facility] [employer] 03-14-2024 14:42-0500 Body height 137.2 cm Britta Carlottaenthal [employer] Work Phone: [employer] 03-14-2024 14:42-0500 Body mass index (BMI) [Ratio] 23.63 kg/m2 Britta Bridenthal [employer] Work Phone: [employer] 03-14-2024 14:42-0500 Body temperature 98.4 [degF] Britta Carlottaenthal [employer] Work Phone: [facility] [employer] 03-14-2024 14:42-0500 Body weight 44.45 kg Britta Bridenthal [employer] Work Phone: [employer] 03-14-2024 14:42-0500 Diastolic blood pressure 79 mm[Hg] Britta Bridenthal [employer] Work Phone: [facility] [employer] 03-14-2024 14:42-0500 Heart rate 94 /min Britta Bridenthal [employer] Work Phone: [facility] [employer] 03-14-2024 14:42-0500 Respiratory rate 20 /min Britta Bridenthal [employer] Work Phone: [facility] [employer] 03-14-2024 14:42-0500 SaO2% (BldA) [Mass fraction] 95 % Britta Bridenthal [employer] Work Phone: [facility] [employer] 03-14-2024 14:42-0500 Systolic blood pressure 133 mm[Hg] Britta Bridenthal [employer] Work Phone: [facility] [employer] 01-11-2024 16:05-0500 Diastolic blood pressure 83 mm[Hg] Britta Bridenthal [employer] Work Phone: [facility] [employer] 01-11-2024 16:05-0500 Heart rate 86 /min Britta Bridenthal [employer] Work Phone: [facility] [employer] 01-11-2024 16:05-0500 Systolic blood pressure 149 mm[Hg] Britta Bridenthal [employer] Work Phone: [facility] [employer] 01-11-2024 15:20-0500 Body mass index (BMI) [Ratio] 24.88 kg/m2 Britta Bridenthal [employer] Work Phone: [facility] [employer] 01-11-2024 15:20-0500 Body temperature 99.1 [degF] Britta Bridenthal [employer] Work Phone: [facility] [employer] 01-11-2024 15:20-0500 Body weight 46.81 kg Britta Bridenthal [employer] Work Phone: [facility] [employer] 01-11-2024 15:20-0500 Respiratory rate 24 /min Britta Bridenthal [employer] Work Phone: [facility] [employer] 01-11-2024 15:20-0500 SaO2% (BldA) [Mass fraction] 98 % Britta Bridenthal [employer] Work Phone: [facility] [employer] 12-09-2023 13:53-0400 Diastolic blood pressure 77 mm[Hg] Britta Bridenthal [employer] Work Phone: [facility] [employer] 12-09-2023 13:53-0400 Heart rate 83 /min Britta Bridenthal [employer] Work Phone: [facility] [employer] 12-09-2023 13:53-0400 Systolic blood pressure 119 mm[Hg] Britta Bridenthal [employer] Work Phone: [facility] [employer] 12-09-2023 13:03-0400 Body mass index (BMI) [Ratio] 23.97 kg/m2 Britta Bridenthal [employer] Work Phone: [facility] [employer] 12-09-2023 13:03-0400 Body temperature 99.1 [degF] Britta Bridenthal [employer] Work Phone: [facility] [employer] 12-09-2023 13:03-0400 Body weight 45.09 kg Britta Bridenthal [employer] Work Phone: [facility] [employer] 12-09-2023 13:03-0400 Respiratory rate 20 /min Britta Bridenthal [employer] Work Phone: [facility] [employer] 12-09-2023 13:03-0400 SaO2% (BldA) [Mass fraction] 95 % Britta Bridenthal [employer] Work Phone: [facility] [employer] 11-03-2023 15:22-0400 Body mass index (BMI) [Ratio] 23.82 kg/m2 Britta Bridenthal [employer] Work Phone: [facility] [employer] 11-03-2023 15:22-0400 Body temperature 99.1 [degF] Britta Bridenthal [employer] Work [facility]: [facility] - [place] [employer] 11-03-2023 15:22-0400 Body weight 44.81 kg Britta Bridenthal [employer] - [employer]OYEE HE[employer] NURSE Work Phone: [facility] [place] [employer] 11-03-2023 15:22-0400 Diastolic blood pressure 92 mm[Hg] Britta Bridenthal [employer] - EM[employer]OYEE HE[employer] NURSE Work Phone: [facility] [place] [employer] 11-03-2023 15:22-0400 Heart rate 89 /min Britta Bridenthal [employer] - EM[employer]OYEE HEALTH NURSE Work Phone: [facility] [place] [employer] 11-03-2023 15:22-0400 Respiratory rate 18 /min Britta Bridenthal [employer] EM[employer]OYEE HE[employer] NURSE Work Phone: [facility] [place] [employer] 11-03-2023 15:22-0400 SaO2% (BldA) [Mass fraction] 98 % Britta Bridenthal [employer] - EMPLOYEE HEALTH NURSE Work Phone: [facility] [place] [employer] 11-03-2023 15:22-0400 Systolic blood pressure 179 mm[Hg] Britta Bridenthal [employer] - EM[employer]OYEE HE[employer] NURSE Work Phone: [facility] [place] [employer] 10-26-2023 14:27-0400 Body height 137.2 cm Estefanía Vera MD Work Phone: [facility] [place] [employer] 10-26-2023 14:27-0400 Body mass index (BMI) [Ratio] 23.63 kg/m2 Estefanía Vera MD Work Phone: [facility] [place] [employer] 10-26-2023 14:27-0400 Body weight 44.45 kg Estefanía Vera MD Work Phone: [facility] [place] [employer] 10-06-2023 15:51-0400 Diastolic blood pressure 96 mm[Hg] Britta Bridenthal [employer] - EM[employer]EE HEALTH NURSE Work Phone: [facility] [place] [employer] 10-06-2023 15:51-0400 Heart rate 80 /min Britta Bridenthal [employer] - EM[employer]OYEE HEALTH NURSE Work Phone: [facility] [place] [employer] 10-06-2023 15:51-0400 Systolic blood pressure 180 mm[Hg] Britta Bridenthal [employer] - EMPLOYEE HEALTH NURSE Work Phone: [facility] [place] [employer] 10-06-2023 15:18-0400 Body mass index (BMI) [Ratio] 23.19 kg/m2 Britta Carlottaenthal [employer] - EMPLOYEE HEALTH NURSE Work Phone: [facility] [place] [employer] 10-06-2023 15:18-0400 Body weight 43.64 kg Britta Bridenthal [employer] - EM[employer]OYEE HEALTH NURSE Work Phone: [facility] [place] [employer] 10-06-2023 15:18-0400 Respiratory rate 24 /min Britta Bridenthal [employer] - EM[employer]OYEE HEALTH NURSE Work Phone: [facility] [place] [employer] 10-06-2023 15:18-0400 SaO2% (BldA) [Mass fraction] 98 % Britta Bridenthal [employer] - EMPLOYEE HEALTH NURSE Work Phone: [facility] [place] [employer] 09-09-2023 15:28-0400 Body mass index (BMI) [Ratio] 23.63 kg/m2 Britta Bridenthal [employer] - EMPLOYEE HEALTH NURSE Work Phone: [facility] [place] [employer] 09-09-2023 15:28-0400 Body temperature 96.8 [degF] Britta Carlottaenthal [employer] - EMPLOYEE HE[employer] NURSE Work Phone: [facility] [place] [employer] 09-09-2023 15:28-0400 Body weight 44.45 kg Britta Carlottaenthal [employer] - EMPLOYEE HEALTH NURSE Work Phone: [facility] [place] [employer] 09-09-2023 15:28-0400 Diastolic blood pressure 87 mm[Hg] Britta Bridenthal [employer] - EMPLOYEE HEALTH NURSE Work Phone: [facility] [place] [employer] 09-09-2023 15:28-0400 Heart rate 98 /min Britta Bridenthal [employer] - EM[employer]OYEE HE[employer] NURSE Work Phone: [facility] [place] [employer] 09-09-2023 15:28-0400 Respiratory rate 26 /min Britta Bridenthal [employer] - EMPLOYEE HEALTH NURSE Work Phone: [facility] [place] [employer] 09-09-2023 15:28-0400 SaO2% (BldA) [Mass fraction] 99 % Britta Bridenthal [employer] - EMPLOYEE HEALTH NURSE Work Phone: [facility] 09-09-2023 15:28-0400 Systolic blood pressure 165 mm[Hg] Britta Bridenthal [employer] - EMPLOYEE HEALTH NURSE Work Phone: [facility] 08-12-2023 15:02-0400 Body mass index (BMI) [Ratio] 23.87 kg/m2 Sbh Schedule [facility] 08-12-2023 15:02-0400 Body weight 44.91 kg Sbh Schedule [facility] 08-12-2023 15:02-0400 Diastolic blood pressure 88 mm[Hg] Sbh Schedule [facility] 08-12-2023 15:02-0400 Heart rate 97 /min Sbh Schedule [facility] 08-12-2023 15:02-0400 SaO2% (BldA) [Mass fraction] 98 % Sbh Schedule [facility] 08-12-2023 15:02-0400 Systolic blood pressure 168 mm[Hg] Sbh Schedule [facility] 08-12-2023 11:01-0400 Body mass index (BMI) [Ratio] 23.77 kg/m2 Britta Bridenthal [employer] - EMPLOYEE HEALTH NURSE Work Phone: [facility] 08-12-2023 11:01-0400 Body temperature 98.6 [degF] Britta Bridenthal [employer] - EMPLOYEE HEALTH NURSE Work Phone: [facility] 08-12-2023 11:01-0400 Body weight 44.73 kg Britta Bridenthal [employer] - EMPLOYEE HEALTH NURSE Work Phone: [facility] 08-12-2023 11:01-0400 Diastolic blood pressure 91 mm[Hg] Britta Bridenthal [employer] - EMPLOYEE HEALTH NURSE Work Phone: [facility] 08-12-2023 11:01-0400 Heart rate 106 /min Britta Bridenthal [employer] - EMPLOYEE HEALTH NURSE Work Phone: [facility] 08-12-2023 11:01-0400 Respiratory rate 24 /min Britta Bridenthal [employer] - EMPLOYEE HEALTH NURSE Work Phone: [facility] 08-12-2023 11:01-0400 SaO2% (BldA) [Mass fraction] 98 % Britta Bridenthal [employer] - EMPLOYEE HEALTH NURSE Work Phone: [facility] [place] [employer] 08-12-2023 11:01-0400 Systolic blood pressure 179 mm[Hg] Britta Bridenthal [employer] - EMPLOYEE HEALTH NURSE Work Phone: [facility] [place] [employer] 07-28-2023 15:58-0400 Diastolic blood pressure 83 mm[Hg] Britta Bridenthal [employer] - EMPLOYEE HEALTH NURSE Work Phone: [facility] [place] [employer] 07-28-2023 15:58-0400 Systolic blood pressure 176 mm[Hg] Britta Bridenthal [employer] - EMPLOYEE HEALTH NURSE Work Phone: [facility] [place] [employer] 07-28-2023 15:19-0400 Body mass index (BMI) [Ratio] 24.21 kg/m2 Britta Bridenthal [employer] - EMPLOYEE HEALTH NURSE Work Phone: [facility] [place] [employer] 07-28-2023 15:19-0400 Body temperature 98.29 [degF] Britta Bridenthal [employer] - EMPLOYEE HEALTH NURSE Work Phone: [facility] [place] [employer] 07-28-2023 15:19-0400 Body weight 45.54 kg Britta Bridenthal [employer] - EMPLOYEE HEALTH NURSE Work Phone: [facility] [place] [employer] 07-28-2023 15:19-0400 Heart rate 103 /min Britta Bridenthal [employer] - EMPLOYEE HEALTH NURSE Work Phone: [facility] [place] [employer] 07-28-2023 15:19-0400 Respiratory rate 18 /min Britta Bridenthal [employer] - EMPLOYEE HEALTH NURSE Work Phone: [facility] [place] [employer] 07-28-2023 15:19-0400 SaO2% (BldA) [Mass fraction] 94 % Britta Bridenthal [employer] - EMPLOYEE HEALTH NURSE Work Phone: [facility] [place] [employer] 05-20-2023 14:48-0400 Body mass index (BMI) [Ratio] 24.3 kg/m2 Britta Bridenthal [employer] - EMPLOYEE HEALTH NURSE Work Phone: [facility] [place] [employer] 05-20-2023 14:48-0400 Body temperature 99.1 [degF] Britta Bridenthal [employer] - EMPLOYEE HEALTH NURSE Work Phone: [facility] [place] [employer] 05-20-2023 14:48-0400 Body weight 45.72 kg Britta Bridenthal [employer] - EMPLOYEE HEALTH NURSE Work Phone: [facility] [place] [employer] 05-20-2023 14:48-0400 Diastolic blood pressure 82 mm[Hg] Britta Bridenthal [employer] - EMPLOYEE HEALTH NURSE Work Phone: [facility] [place] [employer] 05-20-2023 14:48-0400 Heart rate 86 /min Britta Bridenthal [employer] - EMPLOYEE HEALTH NURSE Work Phone: [facility] [place] [employer] 05-20-2023 14:48-0400 Respiratory rate 18 /min Britta Bridenthal [employer] - EMPLOYEE HEALTH NURSE Work Phone: [facility] [place] [employer] 05-20-2023 14:48-0400 SaO2% (BldA) [Mass fraction] 96 % Britta Bridenthal [employer] - EMPLOYEE HEALTH NURSE Work Phone: [facility] [place] [employer] 05-20-2023 14:48-0400 Systolic blood pressure 138 mm[Hg] Britta Bridenthal [employer] - EMPLOYEE HEALTH NURSE Work Phone: [facility] [place] [employer] 04-29-2023 15:01-0400 Body mass index (BMI) [Ratio] 24.59 kg/m2 Britta Bridenthal [employer] - EMPLOYEE HEALTH NURSE Work Phone: [facility] [place] [employer] 04-29-2023 15:01-0400 Body temperature 98.91 [degF] Britta Bridenthal [employer] - EMPLOYEE HEALTH NURSE Work Phone: [facility] [place] [employer] 04-29-2023 15:01-0400 Body weight 46.27 kg Britta Bridenthal [employer] - EMPLOYEE HEALTH NURSE Work Phone: [facility] [place] [employer] 04-29-2023 15:01-0400 Diastolic blood pressure 73 mm[Hg] Britta Bridenthal [employer] - EMPLOYEE HEALTH NURSE Work Phone: [facility] [place] [employer] 04-29-2023 15:01-0400 Heart rate 90 /min Britta Bridenthal [employer] - EMPLOYEE HEALTH NURSE Work Phone: [facility] [place] [employer] 04-29-2023 15:01-0400 Respiratory rate 24 /min Britta Bridenthal [employer] - EMPLOYEE HEALTH NURSE Work Phone: [facility] [place] [employer] 04-29-2023 15:01-0400 SaO2% (BldA) [Mass fraction] 96 % Britta Bridenthal [employer] - EMPLOYEE HEALTH NURSE Work Phone: [facility] [place] [employer] 04-29-2023 15:01-0400 Systolic blood pressure 120 mm[Hg] Britta Bridenthal [employer] - EMPLOYEE HEALTH NURSE Work Phone: [facility] [place] [employer] 03-31-2023 15:22-0500 Body height 137.2 cm Britta Bridenthal [employer] - EMPLOYEE HEALTH NURSE Work Phone: [facility] [place] [employer] 03-31-2023 15:22-0500 Body mass index (BMI) [Ratio] 24.35 kg/m2 Britta Bridenthal [employer] - EMPLOYEE HEALTH NURSE Work Phone: [facility] [place] [employer] 03-31-2023 15:22-0500 Body temperature 98.91 [degF] Britta Bridenthal [employer] - EMPLOYEE HEALTH NURSE Work Phone: [facility] [place] [employer] 03-31-2023 15:22-0500 Body weight 45.81 kg Britta Bridenthal [employer] - EMPLOYEE HEALTH NURSE Work Phone: [facility] [place] [employer] 03-31-2023 15:22-0500 Diastolic blood pressure 71 mm[Hg] Britta Bridenthal [employer] - EMPLOYEE HEALTH NURSE Work Phone: [facility] [place] [employer] 03-31-2023 15:22-0500 Heart rate 87 /min Britta Bridenthal [employer] - EMPLOYEE HEALTH NURSE Work Phone: [facility] [place] [employer] 03-31-2023 15:22-0500 SaO2% (BldA) [Mass fraction] 97 % Britta Bridenthal [employer] - EMPLOYEE HEALTH NURSE Work Phone: [facility] [place] [employer] 03-31-2023 15:22-0500 Systolic blood pressure 119 mm[Hg] Britta Bridenthal [employer] - EMPLOYEE HEALTH NURSE Work Phone: [facility] [place] [employer] 03-04-2023 09:51-0500 Diastolic blood pressure 79 mm[Hg] Britta Bridenthal [employer] - EMPLOYEE HEALTH NURSE Work Phone: [facility] [place] [employer] 03-04-2023 09:51-0500 Systolic blood pressure 124 mm[Hg] Britta Bridenthal [employer] - EMPLOYEE HEALTH NURSE Work Phone: [facility] [place] [employer] 03-04-2023 08:58-0500 Body height 137.2 cm Britta Bridenthal [employer] - EMPLOYEE HEALTH NURSE Work Phone: [facility] [place] [employer] 03-04-2023 08:58-0500 Body mass index (BMI) [Ratio] 24.06 kg/m2 Britta Bridenthal [employer] - EMPLOYEE HEALTH NURSE Work Phone: [facility] [place] [employer] 03-04-2023 08:58-0500 Body temperature 98.91 [degF] Britta Bridenthal [employer] - EMPLOYEE HEALTH NURSE Work Phone: [employer] 03-04-2023 08:58-0500 Body weight 45.27 kg Britta Bridenthal [employer] - EMPLOYEE HEALTH NURSE Work Phone: [facility] [place] [employer] 03-04-2023 08:58-0500 Heart rate 102 /min Britta Bridenthal [employer] - EMPLOYEE HEALTH NURSE Work Phone: [facility] [place] [employer] 03-04-2023 08:58-0500 Respiratory rate 24 /min Britta Bridenthal [employer] - EMPLOYEE HEALTH NURSE Work Phone: [facility] [place] [employer] 03-04-2023 08:58-0500 SaO2% (BldA) [Mass fraction] 97 % Britta Bridenthal [employer] - EMPLOYEE HEALTH NURSE Work Phone: [facility] [place] [employer] 02-15-2023 14:22-0500 Body height 137.[address] Rayo Cantu Work Phone: [facility] 02-15-2023 14:22-0500 Body mass index (BMI) [Ratio] 24.1 kg/m2 Dr. Rayo Cantu Work Phone: [facility] 02-15-2023 14:22-0500 Body temperature 97.2 [degF] Dr. Rayo Cantu Work Phone: [facility] 02-15-2023 14:22-0500 Body weight 45.[address] Rayo Cantu Work Phone: [facility] 02-15-2023 14:22-0500 Diastolic blood pressure 92 mm[Hg] Dr. Rayo Cantu Work Phone: [facility] 02-15-2023 14:22-0500 Heart rate 106 /min Dr. Rayo Cantu Work Phone: [facility] 02-15-2023 14:22-0500 Respiratory rate 16 /min Dr. Rayo Cantu Work Phone: [facility] 02-15-2023 14:22-0500 SaO2% (BldA) [Mass fraction] 100 % Dr. Rayo Cantu Work Phone: [facility] 02-15-2023 14:22-0500 Systolic blood pressure 175 mm[Hg] Dr. Rayo Cantu Work Phone: [facility] 02-03-2023 15:42-0500 Diastolic blood pressure 83 mm[Hg] Britta Trinidad [employer] - EMPLOYEE HEALTH NURSE Work Phone: [facility] 02-03-2023 15:42-0500 Systolic blood pressure 150 mm[Hg] Brittakalyan Laguerreenthal [employer] - EMPLOYEE HEALTH NURSE Work Phone: [facility] 02-03-2023 15:07-0500 Body mass index (BMI) [Ratio] 24.11 kg/m2 Britta Laguerreenthal [employer] - EMPLOYEE HEALTH NURSE Work Phone: [facility] 02-03-2023 15:07-0500 Body temperature 98.6 [degF] Britta Youngbloodal [employer] - EMPLOYEE HEALTH NURSE Work Phone: [facility] 02-03-2023 15:07-0500 Body weight 45.36 kg Britta Bridenthal [employer] - EMPLOYEE HEALTH 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 Work Phone: [facility] [place] [employer] 02-03-2023 15:07-0500 Heart rate 89 /min Britta Bridenthal [employer] - EMPLOYEE HEALTH NURSE Work Phone: [facility] [place] [employer] 02-03-2023 15:07-0500 Respiratory rate 18 /min Britta Bridenthal [employer] - EMPLOYEE HEALTH NURSE Work Phone: [facility] [place] [employer] 02-03-2023 15:07-0500 SaO2% (BldA) [Mass fraction] 98 % Britta Bridenthal [employer] - EMPLOYEE HEALTH NURSE Work Phone: [facility] [place] [employer] 01-06-2023 15:02-0500 Body mass index (BMI) [Ratio] 23.15 kg/m2 Britta Bridenthal [employer] - EMPLOYEE HEALTH NURSE Work Phone: [facility] [place] [employer] 01-06-2023 15:02-0500 Body temperature 98.6 [degF] Britta Bridenthal [employer] - EMPLOYEE HEALTH NURSE Work Phone: [facility] [place] [employer] 01-06-2023 15:02-0500 Body weight 43.55 kg Britta Bridenthal [employer] - EMPLOYEE HEALTH NURSE Work Phone: [facility] [place] [employer] 01-06-2023 15:02-0500 Diastolic blood pressure 82 mm[Hg] Britta Bridenthal [employer] - EMPLOYEE HEALTH NURSE Work Phone: [facility] [place] [employer] 01-06-2023 15:02-0500 Heart rate 92 /min Britta Bridenthal [employer] - EMPLOYEE HEALTH NURSE Work Phone: [facility] [place] [employer] 01-06-2023 15:02-0500 Respiratory rate 20 /min Britta Bridenthal [employer] - EMPLOYEE HEALTH NURSE Work Phone: [facility] [place] [employer] 01-06-2023 15:02-0500 SaO2% (BldA) [Mass fraction] 98 % Britta Bridenthal [employer] - EMPLOYEE HEALTH NURSE Work Phone: [facility] 01-06-2023 15:02-0500 Systolic blood pressure 176 mm[Hg] Britta Bridenthal [employer] - EMPLOYEE HEALTH NURSE Work Phone: [facility] [place] [employer] 11-24-2022 09:53-0400 Diastolic blood pressure 93 mm[Hg] Britta Bridenthal [employer] - EMPLOYEE HEALTH NURSE Work Phone: [facility] [place] [employer] 11-24-2022 09:53-0400 Heart rate 57 /min Britta Bridenthal [employer] - EMPLOYEE HEALTH NURSE Work Phone: [facility] [place] [employer] 11-24-2022 09:53-0400 Systolic blood pressure 166 mm[Hg] Britta Bridenthal [employer] - EMPLOYEE HEALTH NURSE Work Phone: [facility] [place] [employer] 11-24-2022 08:43-0400 Body height 137.2 cm Britta Bridenthal [employer] - EMPLOYEE HEALTH NURSE Work Phone: [facility] [place] [employer] 11-24-2022 08:43-0400 Body mass index (BMI) [Ratio] 23.48 kg/m2 Britta Bridenthal [employer] - EMPLOYEE HEALTH NURSE Work Phone: [facility] [place] [employer] 11-24-2022 08:43-0400 Body temperature 98.4 [degF] Britta Bridenthal [employer] - EMPLOYEE HEALTH NURSE Work Phone: [facility] [place] [employer] 11-24-2022 08:43-0400 Body weight 44.18 kg Britta Bridenthal [employer] - EMPLOYEE HEALTH NURSE Work Phone: [facility] [place] [employer] 11-24-2022 08:43-0400 Respiratory rate 20 /min Britta Bridenthal [employer] - EMPLOYEE HEALTH NURSE Work Phone: [facility] [place] [employer] 11-24-2022 08:43-0400 SaO2% (BldA) [Mass fraction] 98 % Britta Bridenthal [employer] - EMPLOYEE HEALTH NURSE Work Phone: [facility] [place] [employer] 11-18-2022 15:04-0400 Body weight 45 kg Sabrina Tineo MD Work Phone: [facility] 11-18-2022 15:04-0400 Diastolic blood pressure 99 mm[Hg] Sabrina Tineo MD Work Phone: [facility] 11-18-2022 15:04-0400 Heart rate 108 /min Sabrina Tineo MD Work Phone: [facility] 11-18-2022 15:04-0400 Systolic blood pressure 186 mm[Hg] Sabrina Tineo MD Work Phone: [facility] 06-22-2022 14:03-0400 Body height 137.16 cm [employer] WORKER[employer] WORK[employer] Work Phone: [facility] 05-21-2022 15:50-0400 Body temperature 97.3 [degF] [employer]POILAGE WORKER[employer]C Tea Ruiz SPOILAGE WORKER Work Phone: [facility] 05-21-2022 15:50-0400 Diastolic blood pressure 73 mm[Hg] SPOILAGE WORKER[employer]C Tea Ruiz [employer]ILAGE WORKER Work Phone: [facility] 05-21-2022 15:50-0400 Heart rate 75 /min [employer]AGE WORKER[employer]C Tea Ruiz [employer]ILAGE WORKER Work Phone: [facility] 05-21-2022 15:50-0400 Respiratory rate 16 /min [employer] WORKER[employer]C Tea Ruiz [employer]ILAGE WORKER Work Phone: [facility] 05-21-2022 15:50-0400 Systolic blood pressure 152 mm[Hg] SPOILAGE WORKER-C Tea Ruiz SPOILAGE WORKER Work Phone: [facility] 05-21-2022 14:40-0400 Body height 137.16 cm SPOILAGE WORKER-C Tea Ruiz SPOILAGE WORKER Work Phone: [facility] 05-21-2022 14:40-0400 Body mass index (BMI) [Ratio] 23.6 kg/m2 [employer]ILAGE WORKER[employer]C Tea Ruiz SPOILAGE WORKER Work Phone: [facility] 05-21-2022 14:40-0400 Body weight 44.45 kg SPOILAGE WORKER-C Tea Ruiz SPOILAGE WORKER Work Phone: [facility] 05-21-2022 14:40-0400 SaO2% (BldA) [Mass fraction] 100 % [employer]ILAGE WORKER[employer]C Tea Ruiz SPOILAGE WORKER Work Phone: [facility] 05-20-2022 14:27-0400 Body temperature 97.2 [degF] SPOILAGE WORKER-C Tea Ruiz SPOILAGE WORKER Work Phone: [facility] 05-20-2022 14:27-0400 Diastolic blood pressure 70 mm[Hg] SPOILAGE WORKER-C Tea Ruiz SPOILAGE WORKER Work Phone: [facility] 05-20-2022 14:27-0400 Heart rate 79 /min SPOILAGE WORKER-C Tea Ruiz SPOILAGE WORKER Work Phone: [facility] 05-20-2022 14:27-0400 Respiratory rate 16 /min SPOILAGE WORKER-C Tea Ruiz SPOILAGE WORKER Work Phone: [facility] 05-20-2022 14:27-0400 SaO2% (BldA) [Mass fraction] 99 % SPOILAGE WORKER-C Tea Ruiz SPOILAGE WORKER Work Phone: [facility] 05-20-2022 14:27-0400 Systolic blood pressure 133 mm[Hg] SPOILAGE WORKER-C Tea Ruiz SPOILAGE WORKER Work Phone: [facility] 05-19-2022 14:32-0400 Body temperature 96.8 [degF] SPOILAGE WORKER-C Tea Ruiz SPOILAGE WORKER Work Phone: [facility] 05-19-2022 14:32-0400 Diastolic blood pressure 71 mm[Hg] SPOILAGE WORKER-C Tea Ruiz SPOILAGE WORKER Work Phone: [facility] 05-19-2022 14:32-0400 Heart rate 82 /min SPOILAGE WORKER-C Tea Ruiz SPOILAGE WORKER Work Phone: [facility] 05-19-2022 14:32-0400 Respiratory rate 16 /min SPOILAGE WORKER-C Tea Ruiz SPOILAGE WORKER Work Phone: [facility] 05-19-2022 14:32-0400 SaO2% (BldA) [Mass fraction] 100 % SPOILAGE WORKER-C Tea Ruiz SPOILAGE WORKER Work Phone: [facility] 05-19-2022 14:32-0400 Systolic blood pressure 121 mm[Hg] SPOILAGE WORKER-C Tea Ruiz SPOILAGE WORKER Work Phone: [facility] 05-18-2022 14:47-0400 Body temperature 97.4 [degF] SPOILAGE WORKER-C Tea Ruiz SPOILAGE WORKER Work Phone: [facility] 05-18-2022 14:47-0400 Diastolic blood pressure 60 mm[Hg] SPOILAGE WORKER-C Tea Ruiz SPOILAGE WORKER Work Phone: [facility] 05-18-2022 14:47-0400 Heart rate 75 /min SPOILAGE WORKER-C Tea Ruiz SPOILAGE WORKER Work Phone: [facility] 05-18-2022 14:47-0400 Respiratory rate 16 /min SPOILAGE WORKER-C Tea Ruiz SPOILAGE WORKER Work Phone: [facility] 05-18-2022 14:47-0400 SaO2% (BldA) [Mass fraction] 95 % SPOILAGE WORKER-C Tea Ruiz SPOILAGE WORKER Work Phone: [facility] 05-18-2022 14:47-0400 Systolic blood pressure 135 mm[Hg] SPOILAGE WORKER-C Tea Ruiz SPOILAGE WORKER Work Phone: [facility] 05-18-2022 13:49-0400 Body height 137.16 cm SPOILAGE WORKER-C Tea Ruiz SPOILAGE WORKER Work Phone: [facility] 05-15-2022 12:34-0400 Diastolic blood pressure 67 mm[Hg] SPOILAGE WORKER-C Tea Ruiz SPOILAGE WORKER Work Phone: 3(754)[phone] [place] [address] 05-15-2022 12:34-0400 Heart rate 77 /min SPOILAGE WORKER-C Tea Ruiz SPOILAGE WORKER Work Phone: [phone](893)[phone] [place] [address] 05-15-2022 12:34-0400 SaO2% (BldA) [Mass fraction] 100 % SPOILAGE WORKER-C Tea Ruiz SPOILAGE WORKER Work Phone: [facility] 03-31-2023 12:34-0400 Systolic blood pressure 140 mm[Hg] SPOILAGE WORKER-C Tea Ruiz SPOILAGE WORKER Work Phone: [facility] 05-15-2022 11:38-0400 Body height 137.16 cm SPOILAGE WORKER-C Tea Ruiz SPOILAGE WORKER Work Phone: [facility] 05-15-2022 11:38-0400 Body mass index (BMI) [Ratio] 23.6 kg/m2 SPOILAGE WORKER-C Tea Ruiz SPOILAGE WORKER Work Phone: [facility] 05-15-2022 11:38-0400 Body temperature 96.7 [degF] SPOILAGE WORKER-C Tea Ruiz SPOILAGE WORKER Work Phone: [facility] 05-15-2022 11:38-0400 Body weight 44.45 kg SPOILAGE WORKER-C Tea Ruiz SPOILAGE WORKER Work Phone: [facility] 05-15-2022 11:38-0400 Respiratory rate 16 /min SPOILAGE WORKER-C Tea Ruiz SPOILAGE WORKER Work Phone: [phone] [place] [address] 05-14-2022 13:33-0400 Body temperature 97.8 [degF] SPOILAGE WORKER-C Tea Ruiz SPOILAGE WORKER Work Phone: [facility] 05-14-2022 13:33-0400 Diastolic blood pressure 77 mm[Hg] SPOILAGE WORKER-C Tea Ruiz SPOILAGE WORKER Work Phone: 7(303)[phone] [place] [address] 05-14-2022 13:33-0400 Heart rate 78 /min SPOILAGE WORKER-C Tea Ruiz SPOILAGE WORKER Work Phone: [facility] 05-14-2022 13:33-0400 Respiratory rate 14 /min SPOILAGE WORKER-C Tea Ruiz SPOILAGE WORKER Work Phone: [facility] 05-14-2022 13:33-0400 SaO2% (BldA) [Mass fraction] 98 % SPOILAGE WORKER-C Tea Ruiz SPOILAGE WORKER Work Phone: [facility] 05-14-2022 13:33-0400 Systolic blood pressure 159 mm[Hg] SPOILAGE WORKER-C Tea Ruiz SPOILAGE WORKER Work Phone: [facility] 05-14-2022 12:57-0400 Body height 137.16 cm SPOILAGE WORKER-C Tea Ruiz SPOILAGE WORKER Work Phone: [facility] 05-14-2022 12:57-0400 Body mass index (BMI) [Ratio] 23.6 kg/m2 SPOILAGE WORKER-C Tea Ruiz SPOILAGE WORKER Work Phone: 9(323)[phone] [place] [address] 05-14-2022 12:57-0400 Body temperature 97.5 [degF] SPOILAGE WORKER-C Tea Ruiz SPOILAGE WORKER Work Phone: 4(363)[phone] [place] [address] 05-14-2022 12:57-0400 Body weight 44.45 kg SPOILAGE WORKER-C Tea Ruiz SPOILAGE WORKER Work Phone: 8(217)[phone] [place] [address] 05-14-2022 12:57-0400 Diastolic blood pressure 81 mm[Hg] SPOILAGE WORKER-C Tea Ruiz SPOILAGE WORKER Work Phone: 8(703)[phone] [place] [address] 05-14-2022 12:57-0400 Heart rate 96 /min SPOILAGE WORKER-C Tea Ruiz SPOILAGE WORKER Work Phone: 7(998)[phone] [place] [address] 05-14-2022 12:57-0400 Respiratory rate 15 /min SPOILAGE WORKER-C Tea Ruiz SPOILAGE WORKER Work Phone: 2(756)[phone] [place] [address] 05-14-2022 12:57-0400 SaO2% (BldA) [Mass fraction] 98 % SPOILAGE WORKER-C Tea Ruiz SPOILAGE WORKER Work Phone: 8(300)[phone] [place] [address] 05-14-2022 12:57-0400 Systolic blood pressure 147 mm[Hg] SPOILAGE WORKER-C Tea Ruiz SPOILAGE WORKER Work Phone: 2(620)[phone] [place] [address] 05-14-2022 10:19-0400 Body mass index (BMI) [Ratio] 23.6 kg/m2 SPOILAGE WORKER-C Tea Ruiz SPOILAGE WORKER Work Phone: 4([phone])[phone] [place] [address] 05-14-2022 10:19-0400 Body temperature 96.7 [degF] SPOILAGE WORKER-C Tea Ruiz SPOILAGE WORKER Work Phone: 8(289)[phone] [place] [address] 05-14-2022 10:19-0400 Body weight 44.45 kg SPOILAGE WORKER-C Tea Luongs SPOILAGE WORKER Work Phone: [facility] 05-14-2022 10:19-0400 Diastolic blood pressure 108 mm[Hg] SPOILAGE WORKER-C Tea Ruiz SPOILAGE WORKER Work Phone: [facility] 05-14-2022 10:19-0400 Heart rate 113 /min SPOILAGE WORKER-C Tea Ruiz SPOILAGE WORKER Work Phone: [facility] 05-14-2022 10:19-0400 Respiratory rate 18 /min SPOILAGE WORKER-C Tea Ruiz SPOILAGE WORKER Work Phone: [facility] 05-14-2022 10:19-0400 SaO2% (BldA) [Mass fraction] 98 % SPOILAGE WORKER-C Tea Luongs SPOILAGE WORKER Work Phone: [facility] 05-14-2022 10:19-0400 Systolic blood pressure 124 mm[Hg] SPOILAGE WORKER-C Tea Ruiz SPOILAGE WORKER Work Phone: [facility] 05-13-2022 21:54-0400 Body height 137.[address] DAYTON BRIONES MD [facility] 05-13-2022 21:54-0400 Body temperature 98.24 [degF] DR DAYTON BRIONES MD [facility] 05-13-2022 21:54-0400 Body weight 44.[address] DAYTON BRIONES MD [facility] 05-13-2022 21:54-0400 Diastolic Blood Pressure Non-Invasive [address] DAYTON BRIONES MD [facility] 05-13-2022 21:54-0400 Heart rate 75 /min DR DAYTON BRIONES MD [facility] 05-13-2022 21:54-0400 Respiratory rate 20 /min DR DAYTON BRIONES MD [facility] 05-13-2022 21:54-0400 Systolic Blood Pressure Non-Invasive [address] DAYTON BRIONES MD [facility] 05-13-2022 13:42-0400 Body temperature 97.1 [degF] SPOILAGE WORKER-C Tea Ruiz SPOILAGE WORKER Work Phone: [facility] 05-13-2022 13:42-0400 Diastolic blood pressure 78 mm[Hg] SPOILAGE WORKER-C Tea Ruiz SPOILAGE WORKER Work Phone: [facility] 05-13-2022 13:42-0400 Heart rate 81 /min SPOILAGE WORKER-C Tea Ruiz SPOILAGE WORKER Work Phone: [facility] 05-13-2022 13:42-0400 Respiratory rate 16 /min SPOILAGE WORKER-C Tea Ruiz SPOILAGE WORKER Work Phone: [facility] 05-13-2022 13:42-0400 SaO2% (BldA) [Mass fraction] 100 % SPOILAGE WORKER-C Tea Ruiz SPOILAGE WORKER Work Phone: [facility] 05-13-2022 13:42-0400 Systolic blood pressure 144 mm[Hg] SPOILAGE WORKER-C Tea Ruiz SPOILAGE WORKER Work Phone: [facility] 05-12-2022 12:11-0400 Body temperature 98.1 [degF] SPOILAGE WORKER-C Tea Ruiz SPOILAGE WORKER Work Phone: [facility] 05-12-2022 12:11-0400 Diastolic blood pressure 72 mm[Hg] SPOILAGE WORKER-C Tea Ruiz SPOILAGE WORKER Work Phone: [facility] 05-12-2022 12:11-0400 Heart rate 81 /min SPOILAGE WORKER-C Tea Ruiz SPOILAGE WORKER Work Phone: [facility] 05-12-2022 12:11-0400 Respiratory rate 16 /min SPOILAGE WORKER-C Tea Ruiz SPOILAGE WORKER Work Phone: [facility] 05-12-2022 12:11-0400 SaO2% (BldA) [Mass fraction] 100 % SPOILAGE WORKER-C Tea Ruiz SPOILAGE WORKER Work Phone: [facility] 05-12-2022 12:11-0400 Systolic blood pressure 160 mm[Hg] SPOILAGE WORKER-C Tea Ruiz SPOILAGE WORKER Work Phone: [facility] 05-12-2022 10:56-0400 Body mass index (BMI) [Ratio] 23.3 kg/m2 SPOILAGE WORKER-C Tea Ruiz SPOILAGE WORKER Work Phone: [facility] 05-12-2022 10:56-0400 Body weight 43.99 kg SPOILAGE WORKER-C Tea Ruiz SPOILAGE WORKER Work Phone: [facility] 05-11-2022 11:51-0400 Body temperature 97.1 [degF] SPOILAGE WORKER-C Tea Ruiz SPOILAGE WORKER Work Phone: [facility] 05-11-2022 11:51-0400 Diastolic blood pressure 77 mm[Hg] SPOILAGE WORKER-C Tea Ruiz SPOILAGE WORKER Work Phone: [facility] 05-11-2022 11:51-0400 Heart rate 79 /min SPOILAGE WORKER-C Tea Ruiz SPOILAGE WORKER Work Phone: [phone] [place] [address] 05-11-2022 11:51-0400 Respiratory rate 14 /min SPOILAGE WORKER-C Tea Ruiz SPOILAGE WORKER Work Phone: [facility] 05-11-2022 11:51-0400 SaO2% (BldA) [Mass fraction] 99 % SPOILAGE WORKER-C Tea Ruiz SPOILAGE WORKER Work Phone: [facility] 05-11-2022 11:51-0400 Systolic blood pressure 144 mm[Hg] SPOILAGE WORKER-C Tea Ruiz SPOILAGE WORKER Work Phone: [facility] 05-11-2022 10:54-0400 Body mass index (BMI) [Ratio] 23.3 kg/m2 SPOILAGE WORKER-C Tea Ruiz SPOILAGE WORKER Work Phone: [facility] 05-11-2022 10:54-0400 Body weight 43.99 kg SPOILAGE WORKER-C Tea Ruiz SPOILAGE WORKER Work Phone: [facility] 05-10-2022 10:39-0400 Body temperature 98.1 [degF] SPOILAGE WORKER-C Tea Ruiz SPOILAGE WORKER Work Phone: [facility] 05-10-2022 10:39-0400 Diastolic blood pressure 81 mm[Hg] SPOILAGE WORKER-C Tea Ruiz SPOILAGE WORKER Work Phone: [facility] 05-10-2022 10:39-0400 Heart rate 80 /min SPOILAGE WORKER-C Tea Ruiz SPOILAGE WORKER Work Phone: [facility] 05-10-2022 10:39-0400 Respiratory rate 18 /min SPOILAGE WORKER-C Tea Ruiz SPOILAGE WORKER Work Phone: [facility] 05-10-2022 10:39-0400 SaO2% (BldA) [Mass fraction] 100 % SPOILAGE WORKER-C Tea Ruiz SPOILAGE WORKER Work Phone: [facility] 05-10-2022 10:39-0400 Systolic blood pressure 159 mm[Hg] SPOILAGE WORKER-C Tea Ruiz SPOILAGE WORKER Work Phone: [facility] 05-09-2022 11:09-0400 Body temperature 98.3 [degF] SPOILAGE WORKER-C Tea Ruiz SPOILAGE WORKER Work Phone: [facility] 05-09-2022 11:09-0400 Diastolic blood pressure 83 mm[Hg] SPOILAGE WORKER-C Tea Ruiz SPOILAGE WORKER Work Phone: [facility] 05-09-2022 11:09-0400 Heart rate 77 /min SPOILAGE WORKER-C Tea Ruiz SPOILAGE WORKER Work Phone: [facility] 05-09-2022 11:09-0400 Respiratory rate 18 /min SPOILAGE WORKER-C Tea Ruiz SPOILAGE WORKER Work Phone: [facility] 05-09-2022 11:09-0400 SaO2% (BldA) [Mass fraction] 98 % SPOILAGE WORKER-C Tea Ruiz SPOILAGE WORKER Work Phone: [facility] 05-09-2022 11:09-0400 Systolic blood pressure 145 mm[Hg] SPOILAGE WORKER-C Tea Ruiz SPOILAGE WORKER Work Phone: [facility] 05-08-2022 10:00-0400 Body height 137.16 cm SPOILAGE WORKER-C Tea Ruiz SPOILAGE WORKER Work Phone: [facility] 05-08-2022 10:00-0400 Body mass index (BMI) [Ratio] 23.3 kg/m2 SPOILAGE WORKER-C Tea Ruiz SPOILAGE WORKER Work Phone: [facility] 05-08-2022 10:00-0400 Body weight 43.99 kg SPOILAGE WORKER-C Tea Ruiz SPOILAGE WORKER Work Phone: [facility] 05-08-2022 10:00-0400 Diastolic blood pressure 73 mm[Hg] SPOILAGE WORKER-C Tea Ruiz SPOILAGE WORKER Work Phone: [facility] 05-08-2022 10:00-0400 Heart rate 94 /min SPOILAGE WORKER-C Tea Ruiz SPOILAGE WORKER Work Phone: [facility] 05-08-2022 10:00-0400 Respiratory rate 16 /min SPOILAGE WORKER-C Tea Ruiz SPOILAGE WORKER Work Phone: [facility] 05-08-2022 10:00-0400 SaO2% (BldA) [Mass fraction] 100 % SPOILAGE WORKER-C Tea Luongs SPOILAGE WORKER Work Phone: [facility] 05-08-2022 10:00-0400 Systolic blood pressure 127 mm[Hg] SPOILAGE WORKER-C Tea Ruiz SPOILAGE WORKER Work Phone: [facility] 05-07-2022 08:51-0400 Heart rate 84 /min DR ALEXIS JAMES MD [facility] 05-07-2022 08:51-0400 Respiratory rate 20 /min DR ALEXIS JAMES MD [facility] 05-07-2022 07:39-0400 Diastolic Blood Pressure Non-Invasive [address] ALEXIS JAMES MD [facility] 05-07-2022 07:39-0400 Systolic Blood Pressure Non-Invasive [address] ALEXIS JAMES MD [address] [place] [address] 05-07-2022 07:22-0400 Body temperature 98.06 [degF] DR ALEXIS JAMES MD [address] [place] [address] 05-07-2022 07:22-0400 Heart rate 84 /min DR ALEXIS JAMES MD [address] [place] [address] 05-07-2022 07:22-0400 Reason For Taking VItal Signs DR ALEXIS JAMES MD [address] [place] [address] 05-07-2022 07:22-0400 Respiratory rate 20 /min DR ALEXIS JAMES MD [address] [place] [address] 05-07-2022 00:59-0400 Body temperature 98.6 [degF] DR ALEXIS JAMES MD [address] [place] [address] 05-07-2022 00:59-0400 Diastolic Blood Pressure Non-Invasive [address] ALEXIS JAMES MD [address] [place] [address] 05-07-2022 00:59-0400 Heart rate 95 /min DR ALEXIS JAMES MD [address] [place] [address] 05-07-2022 00:59-0400 Respiratory rate 20 /min DR ALEXIS JAMES MD [address] [place] [address] 05-07-2022 00:59-0400 Systolic Blood Pressure Non-Invasive [address] ALEXIS JAMES MD [address] [place] [address] 05-06-2022 19:47-0400 Heart rate 90 /min DR ALEXIS JAMES MD [address] [place] [address] 05-06-2022 19:47-0400 Reason For Taking VItal Signs DR ALEXIS JAMES MD [address] [place] [address] 05-06-2022 16:42-0400 Body temperature 98.06 [degF] DR ALEXIS JAMES MD [address] [place] [address] 05-06-2022 16:42-0400 Diastolic Blood Pressure Non-Invasive [address] ALEXIS JAMES MD [address] [place] [address] 05-06-2022 16:42-0400 Heart rate 93 /min DR ALEXIS JAMES MD [address] [place] [address] 05-06-2022 16:42-0400 Reason For Taking VItal Signs DR ALEXIS JAMES MD [address] [place] [address] 05-06-2022 16:42-0400 Systolic Blood Pressure Non-Invasive [address] ALEXIS JAMES MD [address] [place] [address] 05-06-2022 16:10-0400 Heart rate 92 /min DR ALEXIS JAMES MD [address] [place] [address] 05-06-2022 16:00-0400 Heart rate 87 /min DR ALEXIS JAMES MD [address] [place] [address] 05-06-2022 06:34-0400 Heart rate 86 /min DR ALEXIS JAMES MD [address] [place] [address] 05-05-2022 20:53-0400 Heart rate 102 /min DR ALEXIS JAMES MD [address] 05-05-2022 14:42-[address] ALEXIS JAMES MD [address] [place] [address] 05-05-2022 11:15-0400 Blood Pressure Cuff Size DR ALEXIS JAMES MD [address] [place] [address] 05-05-2022 11:15-[address] ALEXIS JAMSE MD [address] [place] [address] 05-05-2022 11:15-[address] ALEXIS JAMES MD [address] [place] [address] 05-05-2022 11:15-0400 Mean blood pressure 91 mm[Hg] DR ALEXIS JAMES MD [address] [place] [address] 05-04-2022 10:30-0400 Blood Pressure Cuff Size DR ALEXIS JAMES MD [address] [place] [address] 05-04-2022 10:30-[address] ALEXIS JAMES MD [facility] 05-04-2022 10:30-[address] ALEXIS JAMES MD [facility] 05-04-2022 07:48-0400 Blood Pressure Cuff Size DR ALEXIS JAMES MD [facility] 05-04-2022 07:48-[address] ALEXIS JAMES MD [address] [place] [address] 05-02-2022 03:41-0400 Body height 137.[address] ALEXIS JAMES MD [address] [place] [address] 05-02-2022 03:41-0400 Body weight 44.[address] ALEXIS JAMES MD [address] [place] [address] 05-02-2022 03:41-0400 Body weight 23.8 kg/m2 DR ALEXIS JAMES MD [facility] 05-02-2022 02:12-0400 Body temperature 97.88 [degF] YOHANNES KAPPER CURTAIN FRAMER-EMPLOYEE HEALTH NURSE [address] [place] [address] 05-02-2022 02:12-0400 Diastolic Blood Pressure Non-Invasive 86 1 YOHANNES KAPPER CURTAIN FRAMER-EMPLOYEE HEALTH NURSE [facility] 05-02-2022 02:12-0400 Heart rate 76 /min YOHANNES KAPPER CURTAIN FRAMER-EMPLOYEE HEALTH NURSE [facility] 05-02-2022 02:12-0400 Respiratory rate 18 /min YOHANNES KAPPER CURTAIN FRAMER-EMPLOYEE HEALTH NURSE [facility] 05-02-2022 02:12-0400 Systolic Blood Pressure Non-Invasive 141 1 YOHANNES KAPPER CURTAIN FRAMER-EMPLOYEE HEALTH NURSE [address] [place] [address] 05-02-2022 01:00-0400 Body temperature 97.88 [degF] YOHANNES TAIER CURTAIN FRAMER-EMPLOYEE HEALTH NURSE [facility] 05-02-2022 01:00-0400 Diastolic Blood Pressure Non-Invasive 86 1 YOHANNES TAIER CURTAIN FRAMER-EMPLOYEE HEALTH NURSE [facility] 05-02-2022 01:00-0400 Heart rate 76 /min YOHANNES TAIER CURTAIN FRAMER-EMPLOYEE HEALTH NURSE [facility] 05-02-2022 01:00-0400 Systolic Blood Pressure Non-Invasive 141 1 YOHANNES TAIER CURTAIN FRAMER-EMPLOYEE HEALTH NURSE [facility] 05-01-2022 19:54-0400 Body temperature 98.06 [degF] YOHANNES KAPPER CURTAIN FRAMER-EMPLOYEE HEALTH NURSE [facility] 05-01-2022 19:54-0400 Diastolic Blood Pressure Non-Invasive 85 1 YOHANNES TAIER CURTAIN FRAMER-EMPLOYEE HEALTH NURSE [facility] 05-01-2022 19:54-0400 Heart rate 92 /min YOHANNES TAIER CURTAIN FRAMER-EMPLOYEE HEALTH NURSE [facility] 05-01-2022 19:54-0400 Reason For Taking VItal Signs YOHANNES TAIER CURTAIN FRAMER-EMPLOYEE HEALTH NURSE [facility] 05-01-2022 19:54-0400 Respiratory rate 18 /min YOHANNES TAIER CURTAIN FRAMER-EMPLOYEE HEALTH NURSE [facility] 05-01-2022 19:54-0400 Systolic Blood Pressure Non-Invasive 150 1 YOHANNES KAPPER CURTAIN FRAMER-EMPLOYEE HEALTH NURSE [facility] 05-01-2022 15:15-0400 Heart rate 88 /min YOHANNES KAPPER CURTAIN FRAMER-EMPLOYEE HEALTH NURSE [facility] 05-01-2022 11:55-0400 Heart rate 84 /min YOHANNES KAPPER CURTAIN FRAMER-EMPLOYEE HEALTH NURSE [facility] 05-01-2022 03:15-0400 Heart rate 86 /min YOHANNES KAPPER CURTAIN FRAMER[employer]EMPLOYEE HEALTH NURSE [facility] 04-30-2022 03:36-0400 Body weight 46.6 kg YOHANNES KAPPER CURTAIN FRAMER[employer]EMPLOYEE HEALTH NURSE [facility] 04-29-2022 23:17-0400 Blood Pressure Location YOHANNES KAPPER CURTAIN FR[employer]ER[employer]EMPLOYEE HEALTH NURSE [facility] 04-29-2022 23:17-0400 Blood Pressure Method YOHANNES KAPPER CURTAIN FRAMER[employer]EMPLOYEE HEALTH NURSE [facility] 04-29-2022 20:36-0400 Body height 137.2 cm YOHANNES KAPPER CURTAIN FRAMER[employer]EMPLOYEE HEALTH NURSE [facility] 04-29-2022 20:36-0400 Body weight 44.5 kg YOHANNES KAPPER CURTAIN FRAMER[employer]EMPLOYEE HEALTH NURSE [facility] 04-29-2022 20:36-0400 Body weight 23.64 kg/m2 YOHANNES KAPPER CURTAIN FRAMER-EMPLOYEE HEALTH NURSE [facility] 04-29-2022 12:59-0400 Body weight 44 kg YOHANNES KAPPER CURTAIN FRAMER-EMPLOYEE HEALTH NURSE [facility] 04-28-2022 18:35-0400 Body height 137.[address] ALLEN GREER MD [facility] 04-28-2022 18:35-0400 Body temperature 98.96 [degF] DR ALLEN GREER MD [facility] 04-28-2022 18:35-0400 Body weight [address] ALLEN GREER MD [facility] 04-28-2022 18:35-0400 Diastolic Blood Pressure Non-Invasive [address] ALLEN GREER MD [facility] 04-28-2022 18:35-0400 Heart rate 97 /min DR ALLEN GREER MD [facility] 04-28-2022 18:35-0400 Respiratory rate 24 /min DR ALLEN GREER MD [facility] 04-28-2022 18:35-0400 Systolic Blood Pressure Non-Invasive [address] ALLEN GREER MD [facility] 04-13-2022 14:45-0500 Body height 137.16 cm SPOILAGE WORKER-C Tea Ruiz SPOILAGE WORKER Work Phone: [facility] 04-13-2022 14:39-0500 Body mass index (BMI) [Ratio] 24.5 kg/m2 SPOILAGE WORKER-C Tea Ruiz SPOILAGE WORKER Work Phone: [facility] 04-13-2022 14:39-0500 Body temperature 98.3 [degF] SPOILAGE WORKER-C Tea Ruiz SPOILAGE WORKER Work Phone: [facility] 04-13-2022 14:39-0500 Body weight 46.03 kg SPOILAGE WORKER-C Tea Ruiz SPOILAGE WORKER Work Phone: [facility] 04-13-2022 14:39-0500 Diastolic blood pressure 101 mm[Hg] SPOILAGE WORKER-C Tea Ruiz SPOILAGE WORKER Work Phone: [facility] 04-13-2022 14:39-0500 Heart rate 99 /min SPOILAGE WORKER-C Tea Ruiz SPOILAGE WORKER Work Phone: [facility] 04-13-2022 14:39-0500 Respiratory rate 17 /min SPOILAGE WORKER-C Tea Ruiz SPOILAGE WORKER Work Phone: [facility] 04-13-2022 14:39-0500 SaO2% (BldA) [Mass fraction] 96 % SPOILAGE WORKER-C Tea Ruiz SPOILAGE WORKER Work Phone: [facility] 04-13-2022 14:39-0500 Systolic blood pressure 159 mm[Hg] SPOILAGE WORKER-C Tea Ruiz SPOILAGE WORKER Work Phone: [facility] 03-19-2022 15:29-0500 Body mass index (BMI) [Ratio] 24.2 kg/m2 SPOILAGE WORKER-C Tea Ruiz SPOILAGE WORKER Work Phone: 2(646)[phone] [place] [address] 03-19-2022 15:29-0500 Body temperature 98.3 [degF] SPOILAGE WORKER-C Tea Ruiz SPOILAGE WORKER Work Phone: 2(663)[phone] [place] [address] 03-19-2022 15:29-0500 Body weight 45.55 kg SPOILAGE WORKER-C Tea Ruiz SPOILAGE WORKER Work Phone: 9(009)301-[address] [place] [address] 03-19-2022 15:29-0500 Diastolic blood pressure 90 mm[Hg] SPOILAGE WORKER-C Tea Ruiz SPOILAGE WORKER Work Phone: [facility] 03-19-2022 15:29-0500 Heart rate 91 /min SPOILAGE WORKER-C Tea Ruiz SPOILAGE WORKER Work Phone: 8(373)886-945540 [place] [address] 03-19-2022 15:29-0500 Respiratory rate 17 /min SPOILAGE WORKER-C Tea Ruiz SPOILAGE WORKER Work Phone: 5(970)[phone] [place] [address] 03-19-2022 15:29-0500 SaO2% (BldA) [Mass fraction] 97 % SPOILAGE WORKER-C Tea Ruiz SPOILAGE WORKER Work Phone: [facility] 03-19-2022 15:29-0500 Systolic blood pressure 151 mm[Hg] SPOILAGE WORKER-C Tea Ruiz SPOILAGE WORKER Work Phone: [facility] 11-21-2021 11:42-0400 Body height 137.16 cm SPOILAGE WORKER-C Tea Ruiz SPOILAGE WORKER Work Phone: [facility] Work Phone: 11-21-2021 11:42-0400 Body mass index (BMI) [Ratio] 26 kg/m2 SPOILAGE WORKER-C Tea Ruiz SPOILAGE WORKER Work Phone: [facility] Work Phone: 11-21-2021 11:42-0400 Body temperature 97.4 [degF] SPOILAGE WORKER-C Tea Ruiz SPOILAGE WORKER Work Phone: [facility] Work Phone: 11-21-2021 11:42-0400 Body weight 48.98 kg SPOILAGE WORKER-C Tea Ruiz SPOILAGE WORKER Work Phone: [facility] Work Phone: 11-21-2021 11:42-0400 Diastolic blood pressure 110 mm[Hg] SPOILAGE WORKER-C Tea Ruiz SPOILAGE WORKER Work Phone: [facility] Work Phone: 11-21-2021 11:42-0400 Heart rate 102 /min SPOILAGE WORKER-C Tea Ruiz SPOILAGE WORKER Work Phone: [facility] Work Phone: 11-21-2021 11:42-0400 Respiratory rate 16 /min SPOILAGE WORKER-C Tea Ruiz SPOILAGE WORKER Work Phone: [facility] Work Phone: 11-21-2021 11:42-0400 SaO2% (BldA) [Mass fraction] 100 % SPOILAGE WORKER-C Tea Ruiz SPOILAGE WORKER Work Phone: [facility] Work Phone: 11-21-2021 11:42-0400 Systolic blood pressure 152 mm[Hg] SPOILAGE WORKER-C Tea Ruiz SPOILAGE WORKER Work Phone: [facility] Work Phone: 11-21-2021 08:53-0400 Body weight 46.27 kg Tea Luongs CURTAIN FRAMER.IMPREGNATOR HELPER Work Phone: [facility] 11-21-2021 08:53-0400 Diastolic blood pressure 100 mm[Hg] Tea Luongs CURTAIN FRAMER.IMPREGNATOR HELPER Work Phone: [facility] 11-21-2021 08:53-0400 Heart rate 107 /min Tea Ruiz CURTAIN FRAMER.IMPREGNATOR HELPER Work Phone: [facility] 11-21-2021 08:53-0400 SaO2% (BldA) [Mass fraction] 99 % Tea Ruiz CURTAIN FRAMER.IMPREGNATOR HELPER Work Phone: [facility] 11-21-2021 08:53-0400 Systolic blood pressure 160 mm[Hg] Tea Ruiz CURTAIN FRAMER.IMPREGNATOR HELPER Work Phone: [facility] 11-06-2021 09:23-0400 Heart rate 107 /min Marcellus Rosado MD Work Phone: [facility] 11-06-2021 09:23-0400 Respiratory rate 16 /min Marcellus Rosado MD Work Phone: [facility] 11-06-2021 09:23-0400 SaO2% (BldA) [Mass fraction] 98 % Marcellus Rosado MD Work Phone: [facility] 10-27-2021 17:33-0400 Body temperature 98.49 [degF] Ginny Praisler-Wood CURTAIN FRAMER.EMPLOYEE HEALTH NURSE Work Phone: [facility] 10-27-2021 17:33-0400 Body weight 47.45 kg Ginny Praisler-Wood CURTAIN FRAMER.EMPLOYEE HEALTH NURSE Work Phone: [facility] 10-27-2021 17:33-0400 Diastolic blood pressure 96 mm[Hg] Ginny Praisler-Wood CURTAIN FRAMER.EMPLOYEE HEALTH NURSE Work Phone: [facility] 10-27-2021 17:33-0400 Heart rate 92 /min Ginny Praisler-Wood CURTAIN FRAMER.EMPLOYEE HEALTH NURSE Work Phone: [facility] 10-27-2021 17:33-0400 Respiratory rate 18 /min Ginny Praisler-Wood CURTAIN FRAMER.EMPLOYEE HEALTH NURSE Work Phone: [facility] 10-27-2021 17:33-0400 SaO2% (BldA) [Mass fraction] 96 % Ginny Praisler-Wood CURTAIN FRAMER.EMPLOYEE HEALTH NURSE Work Phone: [facility] 10-27-2021 17:33-0400 Systolic blood pressure 150 mm[Hg] Ginny Costa CURTAIN FRAMER.EMPLOYEE HEALTH NURSE Work Phone: [facility] 10-15-2021 14:50-0400 Body mass index (BMI) [Ratio] 26 kg/m2 SPOILAGE WORKER-C Tea Luongs SPOILAGE WORKER Work Phone: [facility] Work Phone: 10-15-2021 14:50-0400 Body weight 48.98 kg SPOILAGE WORKER-C Tea Ruiz SPOILAGE WORKER Work Phone: [facility] Work Phone: 09-16-2021 15:33-0400 Body temperature 98.1 [degF] Gregorio Soto CURTAIN FRAMER.EMPLOYEE HEALTH NURSE Work Phone: [facility] 09-16-2021 15:33-0400 Body weight 49.35 kg Gregorio Soto CURTAIN FRAMER.EMPLOYEE HEALTH NURSE Work Phone: [facility] 09-16-2021 15:33-0400 Diastolic blood pressure 78 mm[Hg] Gregorio Soto CURTAIN FRAMER.EMPLOYEE HEALTH NURSE Work Phone: [facility] 09-16-2021 15:33-0400 Heart rate 100 /min Gregorio Soto CURTAIN FRAMER.EMPLOYEE HEALTH NURSE Work Phone: [facility] 09-16-2021 15:33-0400 Respiratory rate 16 /min Gregorio Soto CURTAIN FRAMER.EMPLOYEE HEALTH NURSE Work Phone: [facility] 09-16-2021 15:33-0400 SaO2% (BldA) [Mass fraction] 97 % Gregorio Soto CURTAIN FRAMER.EMPLOYEE HEALTH NURSE Work Phone: [facility] 09-16-2021 15:33-0400 Systolic blood pressure 134 mm[Hg] Gregorio Soto CURTAIN FRAMER.EMPLOYEE HEALTH NURSE Work Phone: [facility] 08-12-2021 14:50-0400 Body height 142.2 cm Tea Ruiz CURTAIN FRAMER.IMPREGNATOR HELPER Work Phone: [facility] 08-12-2021 14:50-0400 Body weight 48.53 kg Tea Ruiz CURTAIN FRAMER.IMPREGNATOR HELPER Work Phone: [facility] 08-12-2021 14:50-0400 Diastolic blood pressure 88 mm[Hg] Tea Ruiz CURTAIN FRAMER.IMPREGNATOR HELPER Work Phone: [facility] 08-12-2021 14:50-0400 Heart rate 84 /min Tea Ruiz CURTAIN FRAMER.IMPREGNATOR HELPER Work Phone: [facility] 08-12-2021 14:50-0400 Respiratory rate 16 /min Tea Ruiz CURTAIN FRAMER.IMPREGNATOR HELPER Work Phone: [facility] 08-12-2021 14:50-0400 Systolic blood pressure 152 mm[Hg] Tea Ruiz CURTAIN FRAMER.IMPREGNATOR HELPER Work Phone: [facility] 08-08-2021 08:57-0400 Body height 137.16 cm [facility] Work Phone: 08-08-2021 08:57-0400 Body mass index (BMI) [Ratio] 26.5 kg/m2 [facility] Work Phone: 08-08-2021 08:57-0400 Body temperature 97.9 [degF] [facility] Work Phone: 08-08-2021 08:57-0400 Body weight 49.89 kg [facility] Work Phone: 08-08-2021 08:57-0400 Diastolic blood pressure 107 mm[Hg] [facility] Work Phone: 08-08-2021 08:57-0400 Heart rate 100 /min [facility] Work Phone: 08-08-2021 08:57-0400 Respiratory rate 18 /min [facility] Work Phone: 08-08-2021 08:57-0400 SaO2% (BldA) [Mass fraction] 100 % [facility] Work Phone: 08-08-2021 08:57-0400 Systolic blood pressure 177 mm[Hg] [facility] Work Phone: Encounters Encounter Date Encounter Type Care Provider Facility Start: 10-07-2024 ambulatory Britta Bridenthal Faci lity:[facility] Start: 10-06-2024 End: 10-06-2024 Refill Britta Bridenthal CURTAIN [employer]ER - EMPLOYEE HEALTH NURSE Work Phone: [facility] [place] Comment on above: Hypercholesterolemia Start: 10-05-2024 End: 10-06-2024 Refill Britta Bridenthal CURTAIN [employer]AMER - EMPLOYEE HEALTH NURSE [facility] Comment on above: Chronic pain syndrom e Start: 10-03-2024 End: 10-04-2024 Refill Britta Bridenthal [employer]ER - EMPLOYEE HEALTH NURSE [facility] Comment on above: Insomnia, unspecifie d type Start: 09-11-2024 End: 09-11-[address] Shady Burks MD -[facility] Work Phone: Start: 09-11-2024 End: 09-11-2024 ambulatory Britta Bridenthal Work Phone: -[facility] Start: 09-07-2024 End: 09-07-2024 Refill Britta Bridenthal [employer]TAIN [employer] - EMPLOYEE HEALTH NURSE [facility] Comment on above: Chronic right-sided low back pain without sciatica Start: 09-06-2024 End: 09-07-2024 Refill Britta Bridenthal [employer]ER - EMPLOYEE HEALTH NURSE [facility] Comment on above: Chronic pain syndrom e Start: 08-31-2024 End: 09-07-2024 Telephone encounter Britta Bridenthal [employer]TAIN [employer]AMER - EMPLOYEE HEALTH NURSE Work Phone: [facility] Internal Medicine Brianna Chavez Comment on above: Referral Start: 08-30-2024 End: 08-30-2024 Office outpatient visit 25 minutes Britta Bridenthal CURTAIN [employer]AMER - EMPLOYEE HEALTH NURSE Work Phone: [facility] [place] Comment on above: Chronic right-sided low back pain without sciatica (Primary Dx); Osteopetrosis; Osteoporosis, unspecified osteoporosis type, unspecified pathological fracture presence; Insomnia, unspecified type; Unsatisfactory cervical Papanicolaou smear; Chronic pain syndrome Chronic right-sided low back pain without sciatica (Primary Dx); Osteopetrosis; Osteoporosis, unspecified osteoporosis type, unspecified pathological fracture presence; Insomnia, unspecified type; Unsatisfactory cervical Papanicolaou smear; Chronic pain syndrome; Impacted cerumen of left ear Start: 08-30-2024 End: 08-30-2024 [facility] Start: 08-10-2024 End: 08-10-2024 Refill Britta Bridenthal CUR[employer]ER - EMPLOYEE HEALTH NURSE Work Phone: [facility] [employer] Comment on above: Chronic pain syndrom e Start: 08-02-2024 End: 08-02-2024 Refill Britta Bridenthal CUR[employer]ER - EMPLOYEE HEALTH NURSE Work Phone: [facility] [place] Comment on above: Primary hypertension Start: 08-01-2024 End: 08-02-2024 Refill Britta Bridenthal [employer]ER - EMPLOYEE HEALTH NURSE Work Phone: [facility] [employer] Comment on above: Insomnia, unspecifie d type Start: 07-13-2024 End: 07-13-2024 Refill Britta Bridenthal [employer]TAIN [employer]ER - EMPLOYEE HEALTH NURSE Work Phone: [facility] [place] Comment on above: Chronic pain syndrom e Start: 06-12-2024 End: 06-13-2024 Refill Britta Bridenthal [employer]ER - EMPLOYEE HEALTH NURSE Work Phone: [facility] [employer] Comment on above: Chronic pain syndrom e Start: 2024 End: 2024 Refill Juancho Goodman MD Work Phone: [facility] Comment on above: Insomnia, unspecifie d type Start: 05-31-2024 End: 05-31-2024 Office outpatient visit 25 minutes Britta Bridenthal [employer]ER - EMPLOYEE HEALTH NURSE Work Phone: [facility] Comment on above: Chronic pain syndrom e (Primary Dx); Screening for cervical cancer; Hidradenitis; Systemic sclerosis (HCC); Uncomplicated opioid dependence (HCC); Primary insomnia Start: 05-31-2024 End: 05-31-2024 ambulatory BRITTA BRIDENTHAL [facility] Start: 05-15-2024 End: 05-15-2024 Refill Britta Bridenthal CURTAIN FRAMER - EMPLOYEE HEALTH NURSE Work Phone: [facility] Comment on above: Gastroesophageal ref lux disease without esophagitis (Primary Dx); Chronic pain syndrome Start: 05-08-2024 End: 05-08-2024 Refill Juancho Goodman MD Work Phone: [facility] Clinical Communication Comment on above: Insomnia, unspecifie d type Start: 04-28-2024 End: 04-28-2024 Emergency department patient visit NATASHA BRIONES MD Facility:[facility] Start: 04-27-2024 End: 06-06-2024 ambulatory Jazzmine Boone RN [facility] Clinical Communication Start: 04-27-2024 End: 06-06-2024 Patient encounter procedure Jazzmine Boone RN [facility] Clinic al Communication Start: 04-26-2024 End: 04-26-2024 Emergency department patient visit THANIA CLINTON DO Facility:[facility] Start: 04-14-2024 End: 04-14-2024 Refill Britta Bridenthal [employer]ER - EMPLOYEE HEALTH NURSE Work Phone: [facility] Start: 04-10-2024 End: 04-11-2024 Refill Britta Bridenthal [employer] FR[employer]ER - EMPLOYEE HEALTH NURSE Work Phone: [facility] Comment on above: Chronic pain syndrom e Start: 04-05-2024 End: 04-05-2024 Refill Britta Bridenthal [employer]ER - EMPLOYEE HEALTH NURSE Work Phone: [facility] [place] Comment on above: Insomnia, unspecifie d type Start: 04-04-2024 End: 04-04-2024 Refill Britta Bridenthal CUR[employer]AMER - EMPLOYEE HEALTH NURSE Work Phone: [facility] Primary Care - [place] Comment on above: Hypercholesterolemia Start: 03-31-2024 End: 03-31-2024 ambulatory NONE PHYSICIAN Facility:[facility] Start: 03-31-2024 End: 03-31-2024 Patient encounter procedure BRITTA CARLOTTAENTHAL CURTAIN FRAMER/EMPLOYEE HEALTH NURSE [facility] Start: 03-17-2024 End: 03-17-2024 Telephone encounter Lupis Puga RN [facility] Colorectal Surgery - [place] Comment on above: Colon Cancer Screeni ng Start: 03-14-2024 End: 03-14-2024 Assay of hemosiderin, quant Britta Carlottaenthal CURTAIN FRAMER - EMPLOYEE HEALTH NURSE Work Phone: [facility] Start: 03-14-2024 End: 03-14-2024 Patient encounter procedure Britta Bridenthal CURTAIN FRAMER - EMPLOYEE HEALTH NURSE Work Phone: [facility] [place] Comment on above: Routine general medi kierra examination at health care facility (Primary Dx); Primary hypertension; Systemic sclerosis (HCC); Osteopetrosis; Hypercholesterolemia; Linear scleroderma; Chronic pain syndrome; Vitamin D deficiency; Colon cancer screening; Screening for deficiency anemia; Uncomplicated opioid dependence (HCC); Encounter for screening mammogram for malignant neoplasm of breast; Abnormal mammography; Chronic midline thoracic back pain; Chronic right-sided low back pain without sciatica; Irritable bowel syndrome with both constipation and diarrhea; Primary insomnia Start: 03-14-2024 End: 03-14-2024 ambulatory [facility] Start: 03-14-2024 End: 03-14-2024 Encounter for general adult medical examination without abnormal findings [facility] Start: 03-02-2024 End: 03-02-2024 Refill Juancho Goodman MD Work Phone: [facility] Comment on above: Chronic midline thor acic back pain; Insomnia, unspecified type Start: 02-17-2024 End: 02-17-2024 Refill Juancho Goodman MD Work Phone: [facility] Clinical Communication Comment on above: Chronic pain syndrom e Start: 02-07-2024 End: 02-07-2024 Refill Britta Fordal [employer]ER - EMPLOYEE HEALTH NURSE Work Phone: [facility] Comment on above: Chronic midline thor acic back pain Start: 01-22-2024 End: 01-22-2024 Emergency department patient visit Britta Trinidad Facility:[facility] Start: 01-11-2024 End: 01-11-2024 Office outpatient visit 25 minutes Britta Fordal CUR[employer]ER - EMPLOYEE HEALTH NURSE Work Phone: [facility] Comment on above: Chronic pain syndrom e (Primary Dx); Bulging lumbar disc; Yeast dermatitis; Chronic right-sided low back pain without sciatica; Mass on back Start: 01-11-2024 End: 01-11-2024 ambulatory [facility] Start: 12-22-2023 End: 12-23-2023 Refill Juancho Goodman MD Work Phone: [facility] Start: 12-14-2023 End: 12-14-2023 Telephone encounter Britta Trinidad CURTAIN FRAMER - EMPLOYEE HEALTH NURSE Work Phone: [facility] Comment on above: Care Coordination Start: 12-09-2023 End: 12-09-2023 Office outpatient visit 25 minutes Britta Fordal CUR[employer] FRAMER - EMPLOYEE HEALTH NURSE Work Phone: [facility] Comment on above: Chronic pain syndrom e (Primary Dx); Arthritis; Influenza vaccine needed; Linear scleroderma; Primary hypertension Start: 12-09-2023 End: 12-09-[address] [facility] Start: 12-07-2023 End: 12-07-2023 ambulatory Britta Trudy Facility:[facility] Start: 11-30-2023 ambulatory Brittamarkus Youngbloodal Faci lity:[facility] Start: 11-25-2023 End: 11-27-2023 Telephone encounter Brittakalyan Trinidad CURTAIN FRAMER - EMPLOYEE HEALTH NURSE Work Phone: [facility] Comment on above: Medication Problem Start: 11-24-2023 End: 11-24-2023 ambulatory Britta Fordal Facility:[facility] Start: 11-03-2023 End: 11-03-2023 Office outpatient visit 25 minutes Britta Fordal CURTAIN FRAMER - EMPLOYEE HEALTH NURSE Work Phone: [facility] Comment on above: Chronic pain syndrom e (Primary Dx); Chronic midline thoracic back pain; Primary hypertension; Irritable bowel syndrome with both constipation and diarrhea; Linear scleroderma; Primary insomnia; Encounter for screening mammogram for malignant neoplasm of breast; Osteoporosis, unspecified osteoporosis type, unspecified pathological fracture presence Start: 11-03-2023 End: 11-03-2023 [facility] Start: 10-26-2023 End: 10-26-2023 Office outpatient new 45 minutes Estefanía Vera MD Work Phone: [facility] Pain Management - [facility] Comment on above: Spondylosis without myelopathy or radiculopathy, lumbar region (Primary Dx); Linear scleroderma; Uncomplicated opioid dependence (HCC) Start: 10-26-2023 End: 10-26-2023 ambulatory ESTEFANÍA VERA [facility] Start: 10-12-2023 End: 10-13-2023 Telephone encounter Brittamarkus Trinidad CURTAIN FRAMER - EMPLOYEE HEALTH NURSE Work Phone: [facility] Primary [facility] [place] Comment on above: Orders (CT-Lung Scre en) Start: 10-06-2023 End: 10-06-2023 Office outpatient visit 15 minutes Britta Carlottaenthal CURTAIN FRAMER - EMPLOYEE HEALTH NURSE Work Phone: [facility] Medical [facility] Comment on above: Chronic pain syndrom e (Primary Dx); Insomnia, unspecified type; Linear scleroderma; Primary hypertension; Osteoporosis, unspecified osteoporosis type, unspecified pathological fracture presence; Other osteoarthritis of spine, lumbar region; Hypercholesterolemia Start: 10-06-2023 End: 10-06-2023 Office outpatient visit 25 minutes Britta Bridenthal CURTAIN FRAMER - EMPLOYEE HEALTH NURSE Work Phone: [facility] Comment on above: Chronic pain syndrom e (Primary Dx); Insomnia, unspecified type; Linear scleroderma; Primary hypertension; Osteoporosis, unspecified osteoporosis type, unspecified pathological fracture presence; Other osteoarthritis of spine, lumbar region; Hypercholesterolemia Start: 09-21-2023 End: 09-21-2023 ambulatory [facility] Start: 09-21-2023 End: 09-21-2023 Patient encounter procedure Missy Draper RN [facility] Clinic al Communication Start: 09-09-2023 End: 09-09-2023 Office outpatient visit 25 minutes Britta Bridenthal CURTAIN FRAMER - EMPLOYEE HEALTH NURSE Work Phone: [facility] Comment on above: Chronic pain syndrom e (Primary Dx); Insomnia, unspecified type; Linear scleroderma; Primary hypertension Start: 09-08-2023 End: 09-08-2023 Refill Britta Bridenthal CURTAIN FRAMER - EMPLOYEE HEALTH NURSE Work Phone: [facility] Comment on above: Hypercholesterolemia Start: 08-25-2023 End: 08-26-2023 Refill Britta Bridenthal CURTAIN FRAMER - EMPLOYEE HEALTH NURSE Work Phone: [facility] Comment on above: Chronic midline thor acic back pain Start: 08-20-2023 End: 08-23-2023 ambulatory Willard Medeiros RN [facility] Start: 08-20-2023 End: 08-23-2023 Patient encounter procedure Willard Medeiros RN [facility] Clinic al Communication Comment on above: Insomnia, unspecifie d type Start: 08-12-2023 End: 08-12-2023 Office outpatient new 20 minutes [facility] Osteo Schedule [facility] Osteoporosis Kathy Comment on above: Age-related osteopor osis without current pathological fracture (Primary Dx); Scleroderma (HCC); Vitamin D deficiency; Fatigue, unspecified type Start: 08-12-2023 End: 08-12-2023 Office outpatient visit 15 minutes Britta Fordal CURTAIN FRAMER - EMPLOYEE HEALTH NURSE Work Phone: [facility] Comment on above: Chronic pain syndrom e (Primary Dx); Linear scleroderma; Primary hypertension; Osteopetrosis; Osteoporosis, unspecified osteoporosis type, unspecified pathological fracture presence Start: 08-05-2023 End: 09-17-2023 ambulatory BRITTA BRIDENTHAL CUR[employer] FRAMER/EMPLOYEE HEALTH NURSE Facility:[facility] Start: 08-05-2023 End: 09-17-2023 Physical therapy management BRITTA BRIDENTHAL CURTAIN FRAMER/EMPLOYEE HEALTH NURSE [facility] Start: 07-28-2023 End: 07-28-2023 Office outpatient visit 25 minutes Britta Bridenthal CURTAIN FRAMER - EMPLOYEE HEALTH NURSE Work Phone: [facility] Comment on above: Bulging lumbar disc (Primary Dx); Leg length discrepancy; Other osteoarthritis of spine, lumbar region; Primary hypertension; Chronic pain syndrome; Mass on back; Osteoporosis, unspecified osteoporosis type, unspecified pathological fracture presence; Primary insomnia Start: 07-26-2023 Refill Brittakalyan lam CURTAIN FRAMER - EMPLOYEE HEALTH NURSE Work Phone: [facility] Family Medicine Start: 07-23-2023 ambulatory Rosemary Shoemaker RN [facility] Clinical Communication Start: 07-23-2023 Patient encounter procedure Rosemary juan RN [facility] Clinical Communication Start: 07-23-2023 Telephone encounter Katie Rider RN [place] Clinical Communication Start: 07-13-2023 Refill Brittamarkus lam CURTAIN FRAMER - EMPLOYEE HEALTH NURSE Work Phone: [facility] Comment on above: Chronic midline thor acic back pain Chronic pain syndrom e Start: 07-08-2023 End: 07-08-2023 Subsequent hospital visit by physician Britta Trinidad CURTAIN [employer]AMER - EMPLOYEE HEALTH NURSE Work Phone: [facility] Comment on above: Mass on back; Systemic sclerosis (HCC) Start: 06-29-2023 End: 06-29-2023 Subsequent hospital visit by physician [facility] [address] Exam Room [address] [facility] [address] Comment on above: No Show Start: 06-24-2023 End: 06-24-2023 Subsequent hospital visit by physician Britta Trinidad CURTAIN FRAMER - EMPLOYEE HEALTH NURSE Work Phone: [facility] Comment on above: Canceled (Patient: Mirza michel Unwell) Start: 06-24-2023 Refill Juancho Goodman MD Work Phone: [facility] Start: 06-22-2023 Refill Britta lam CURTAIN FRAMER - EMPLOYEE HEALTH NURSE Work Phone: [facility] Comment on above: Insomnia, unspecifie d type Start: 06-08-2023 Telephone encounter Juancho Cabrera MD Work Phone: [facility] Comment on above: rx for LUNG SCREENIN G Start: 06-01-2023 Orders Only Britta lam CUR[employer] FRAMER - EMPLOYEE HEALTH NURSE Work Phone: [facility] Comment on above: Chronic pain syndrom e (Primary Dx); Chronic midline thoracic back pain; Systemic sclerosis (HCC); Spondylosis of lumbar spine; Linear scleroderma; Chronic pain of both upper extremities; Arthritis of left glenohumeral joint Start: 05-20-2023 End: 05-20-2023 Office outpatient visit 25 minutes Britta Trinidad CUR[employer] FRAMER - EMPLOYEE HEALTH NURSE Work Phone: [facility] Comment on above: Mass on back (Primar y Dx); Chronic midline thoracic back pain; Systemic sclerosis (HCC); Chronic pain syndrome; Insomnia, unspecified type; Spondylosis of lumbar spine Start: 05-12-2023 Telephone encounter Estefanía quiros MD Work Phone: [facility] Pain Management Comment on above: New Patient Start: 05-03-2023 Telephone encounter Juancho Cabrera MD Work Phone: [facility] Clinical Communication Comment on above: Appointment Request Start: 04-29-2023 End: 04-29-2023 Office outpatient visit 25 minutes Brittamarkus Youngbloodal CURTAIN FRAMER - EMPLOYEE HEALTH NURSE Work Phone: [facility] Comment on above: Chronic pain syndrom e (Primary Dx); Acute right-sided low back pain without sciatica; Skin pimple; Chronic pain of both upper extremities Start: 04-13-2023 Refill Britta Frances carole CURTAIN FRAMER - EMPLOYEE HEALTH NURSE Work Phone: [facility] Comment on above: Chronic midline thor acic back pain Start: 03-31-2023 End: 03-31-2023 Office outpatient visit 25 minutes Brittamarkus Youngbloodal CURTAIN FRAMER - EMPLOYEE HEALTH NURSE Work Phone: [facility] Comment on above: Chronic midline thor acic back pain (Primary Dx); Chronic pain syndrome; Linear scleroderma; Insomnia, unspecified type Start: 03-08-2023 Telephone encounter Britta zavala [employer]ER - EMPLOYEE HEALTH NURSE Work Phone: [facility] Comment on above: Results Start: 03-04-2023 Telephone encounter Juancho Cabrera MD Work Phone: [facility] Comment on above: Referral Start: 03-04-2023 End: 03-04-2023 Assay of hemosiderin, quant Britta Carlottaenthal CUR[employer]AMER - EMPLOYEE HEALTH NURSE Work Phone: [facility] Work Phone: Start: 03-04-2023 End: 03-04-2023 Patient encounter procedure Brittakalyan Laguerreenthal CUR[employer]AMER - EMPLOYEE HEALTH NURSE Work Phone: [facility] Comment on above: Routine general medi kierra examination at health care facility (Primary Dx); Primary hypertension; Screening for deficiency anemia; Hypercholesterolemia; Screening for lung cancer; Encounter for screening mammogram for malignant neoplasm of breast; Encounter for vitamin deficiency screening; Linear scleroderma; Chronic midline thoracic back pain; Insomnia, unspecified type; Acute bacterial conjunctivitis of right eye; Irritable bowel syndrome, unspecified type; Recurrent major depressive disorder, in full remission (HCC); Osteopetrosis; Osteoporosis, unspecified osteoporosis type, unspecified pathological fracture presence Routine general medi kierra examination at health care facility (Primary Dx); Primary hypertension; Screening for deficiency anemia; Hypercholesterolemia; Screening for lung cancer; Encounter for screening mammogram for malignant neoplasm of breast; Encounter for vitamin deficiency screening; Linear scleroderma; Chronic midline thoracic back pain; Insomnia, unspecified type; Acute bacterial conjunctivitis of right eye; Irritable bowel syndrome, unspecified type; Recurrent major depressive disorder, in full remission (HCC); Osteopetrosis; Osteoporosis, unspecified osteoporosis type, unspecified pathological fracture presence; Tobacco use disorder Start: 02-15-2023 End: 02-15-2023 Emergency department patient visit Dr. Rayo Cantu Work Phone: [facility]-Emergency Department Work Phone: Start: 02-05-2023 Telephone encounter Britta zavala [employer]TAIN [employer] Work Phone: [facility] Family Medicine Comment on above: Results Start: 02-04-2023 Telephone encounter Historical Provider Work Phone: [facility] Colorectal Center Comment on above: Colon Cancer Screeni ng; Colonoscopy (Screening Program) Colon Cancer Screeni ng; Colonoscopy (Transitioned out of screening program/pt requests office visit) Start: 02-03-2023 End: 02-03-2023 Office outpatient visit 25 minutes Britta Trinidad [employer] Work Phone: [facility] Family Medicine Comment on above: Chronic pain syndrom e (Primary Dx); Insomnia, unspecified type; Linear scleroderma; Chronic midline thoracic back pain; Primary hypertension; Colon cancer screening Start: 01-14-2023 Telephone encounter Estefanía quiros MD Work Phone: [facility] Pain Management Comment on above: Appointment Request Start: 01-06-2023 End: 01-06-2023 Office outpatient visit 25 minutes Britta Trinidad CURTAIN FRAMER - [facility] Work Phone: [facility] Family Medicine Comment on above: Chronic pain syndrom e (Primary Dx); Irritation of left eye; Primary hypertension Start: 01-06-2023 ambulatory Brooke Davis RN [facility] Clinical Communication Start: 01-06-2023 Patient encounter procedure Brooke Davis RN [facility] Clinical Communication Comment on above: Linear scleroderma; Chronic midline thoracic back pain Start: 01-05-2023 Refkyree Goodman MD Work Phone: [facility] Clinical Communication Comment on above: Linear scleroderma; Chronic midline thoracic back pain Start: 01-04-2023 Refill Juancho Goodman MD Work Phone: [facility] Start: 12-23-2022 End: 12-23-[address] Rayo Cantu Work Phone: [facility] Work Phone: Start: 12-21-2022 Refill Juancho Goodman MD Work Phone: [facility] Comment on above: Insomnia, unspecifie d type Start: 11-26-2022 Telephone encounter Britta zavala CURTAIN FRAMER - EMPLOYEE HEALTH NURSE Work Phone: [facility] Comment on above: Other (Pain Ayush.) Start: 11-24-2022 End: 11-24-2022 Office outpatient new 45 minutes Britta Trinidad CURTAIN FRAMER - EMPLOYEE HEALTH NURSE Work Phone: [facility] Comment on above: Insomnia, unspecifie d type (Primary Dx); Linear scleroderma; Chronic midline thoracic back pain; Chronic pain syndrome Start: 11-18-2022 End: 11-18-2022 ambulatory SABRINA TINEO Facility:[facility] Start: 11-18-2022 End: 11-18-2022 Patient encounter procedure Sabrina Tineo MD Work Phone: Pain Management Comment on above: Lumbar spondylosis ( Primary Dx); Low back pain, unspecified back pain laterality, unspecified chronicity, unspecified whether sciatica present; Thoracic spondylosis without myelopathy; Chronic, continuous use of opioids Start: 08-31-2022 End: 08-31-2022 ambulatory SPOILAGE WORKER-C Solis Shell NP Work Phone: [facility] Work Phone: Start: 08-31-2022 End: 08-31-2022 Patient encounter procedure SPOILAGE WORKER-C Solis Shell SPOILAGE WORKER Work Phone: [facility]-Laboratory Work Phone: Start: 08-14-2022 End: 08-14-2022 Patient encounter procedure SPOILAGE WORKER-C Solis Shell SPOILAGE WORKER Work Phone: [facility] Work Phone: Start: 08-05-2022 End: 08-05-2022 Patient encounter procedure WILLARD PERKINS CURTAIN FRAMER-EMPLOYEE HEALTH NURSE [facility] Start: 07-03-2022 End: 10-23-2022 Physical therapy management RAYO CANTU DO [facility] Start: 06-29-2022 End: 06-29-2022 Patient encounter procedure SHRAVAN LUCAS MD [facility] Start: 06-24-2022 End: 06-24-2022 Patient encounter procedure SPOILAGE WORKER-C Solis Shell SPOILAGE WORKER Work Phone: [facility] Work Phone: Start: 06-03-2022 End: 06-03-2022 Patient encounter procedure WILLARD PERKINS CURTAIN FRAMER-EMPLOYEE HEALTH NURSE [facility] Start: 05-26-2022 End: 05-26-2022 ambulatory SPOILAGE WORKER-C Tea Ruiz SPOILAGE WORKER Work Phone: [facility] Work Phone: Start: 05-26-2022 End: 05-26-2022 Patient encounter procedure SPOILAGE WORKER-C Tea Ruiz SPOILAGE WORKER Work Phone: [facility]-Medical Out Start: 05-21-2022 End: 05-21-2022 ambulatory SPOILAGE WORKER-C Tea Luongs SPOILAGE WORKER Work Phone: [facility] Work Phone: Start: 05-21-2022 End: 05-21-2022 Patient encounter procedure SPOILAGE WORKER-C Tae Luongs SPOILAGE WORKER Work Phone: [facility]Medical Out Start: 05-20-2022 End: 05-20-2022 ambulatory SPOILAGE WORKER-C Tea Ruiz SPOILAGE WORKER Work Phone: [facility] Work Phone: Start: 05-20-2022 End: 05-20-2022 Patient encounter procedure SPOILAGE WORKER-C Tea Luongs SPOILAGE WORKER Work Phone: [facility]Medical Out Start: 05-19-2022 End: 05-19-2022 ambulatory SPOILAGE WORKER-C Tea Ruiz SPOILAGE WORKER Work Phone: [facility] Work Phone: Start: 05-19-2022 End: 05-19-2022 Patient encounter procedure SPOILAGE WORKER-C Tea Luongs SPOILAGE WORKER Work Phone: [facility]-Medical Out Start: 05-18-2022 End: 05-18-2022 ambulatory SPOILAGE WORKER-C Tea Ruiz SPOILAGE WORKER Work Phone: [facility] Work Phone: Start: 05-18-2022 End: 05-18-2022 Patient encounter procedure SPOILAGE WORKER-C Tea Luongs SPOILAGE WORKER Work Phone: [facility] Out Start: 05-17-2022 End: 05-17-2022 ambulatory SPOILAGE WORKER-C Tea Ruiz SPOILAGE WORKER Work Phone: [facility] Work Phone: Start: 05-17-2022 End: 05-17-2022 Patient encounter procedure SPOILAGE WORKER-C Tea Ruiz SPOILAGE WORKER Work Phone: [facility]Medical Out Start: 05-16-2022 End: 05-16-2022 ambulatory SPOILAGE WORKER-C Tea Luongs SPOILAGE WORKER Work Phone: [facility] Work Phone: Start: 05-16-2022 End: 05-16-2022 Patient encounter procedure SPOILAGE WORKER-C Tea Luongs SPOILAGE WORKER Work Phone: [facility] Out Start: 05-15-2022 End: 05-15-2022 ambulatory SPOILAGE WORKER-C Tea Luongs SPOILAGE WORKER Work Phone: [facility] Work Phone: Start: 05-15-2022 End: 05-15-2022 Patient encounter procedure SPOILAGE WORKER-C Tea Luongs SPOILAGE WORKER Work Phone: [facility] Out Start: 05-14-2022 End: 05-14-2022 ambulatory SPOILAGE WORKER-C Tea Luongs SPOILAGE WORKER Work Phone: [facility] Work Phone: Start: 05-14-2022 End: 05-14-2022 Patient encounter procedure SPOILAGE WORKER-C Tea Luongs SPOILAGE WORKER Work Phone: [facility] Out Start: 05-14-2022 End: 05-14-2022 Emergency department patient visit SPOILAGE WORKER-C Tea Ruiz SPOILAGE WORKER Work Phone: [facility]-Emergency Department Start: 05-13-2022 End: 05-13-2022 Emergency department patient visit DR DAYTON BRIONES MD [facility] Start: 05-13-2022 End: 05-13-2022 ambulatory SPOILAGE WORKER-C Tea Luongs SPOILAGE WORKER Work Phone: [facility] Work Phone: Start: 05-13-2022 End: 05-13-2022 Patient encounter procedure SPOILAGE WORKER-C Tea Luongs SPOILAGE WORKER Work Phone: [facility] Out Start: 05-12-2022 End: 05-12-2022 ambulatory SPOILAGE WORKER-C Tea Luongs SPOILAGE WORKER Work Phone: [facility] Work Phone: Start: 05-12-2022 End: 05-12-2022 Patient encounter procedure SPOILAGE WORKER-C Tea Ruiz SPOILAGE WORKER Work Phone: [facility] Out Start: 05-11-2022 End: 05-11-2022 ambulatory SPOILAGE WORKER-C Tea Ruiz SPOILAGE WORKER Work Phone: [facility] Work Phone: Start: 05-11-2022 End: 05-11-2022 Patient encounter procedure SPOILAGE WORKER-C Tea Ruiz SPOILAGE WORKER Work Phone: [facility] Start: 05-10-2022 End: 05-10-2022 ambulatory SPOILAGE WORKER-C Tea Ruiz SPOILAGE WORKER Work Phone: [facility] Work Phone: Start: 05-10-2022 End: 05-10-2022 Patient encounter procedure SPOILAGE WORKER-C Tea Ruiz SPOILAGE WORKER Work Phone: [facility] Start: 05-09-2022 End: 05-09-2022 ambulatory SPOILAGE WORKER-C Tea Ruiz SPOILAGE WORKER Work Phone: [facility] Work Phone: Start: 05-09-2022 End: 05-09-2022 Patient encounter procedure SPOILAGE WORKER-C Tea Ruiz SPOILAGE WORKER Work Phone: [facility] Start: 05-08-2022 End: 05-08-2022 ambulatory SPOILAGE WORKER-C Tea Ruiz SPOILAGE WORKER Work Phone: [facility] Work Phone: Start: 05-08-2022 End: 05-08-2022 Patient encounter procedure SPOILAGE WORKER-C Tea Ruiz SPOILAGE WORKER [facility] Start: 05-02-2022 End: 05-07-2022 Evaluation and management of inpatient DR ALEXIS JAMES MD [facility] Start: 04-29-2022 End: 05-02-2022 Evaluation and management of inpatient YOHANNES BOWIE CURTAIN FRAMER-EMPLOYEE HEALTH NURSE [facility] Start: 04-28-2022 End: 04-28-2022 Emergency department patient visit DR ALLEN GREER MD [facility] Start: 04-27-2022 End: 04-27-2022 Patient encounter procedure SHRAVAN LUCAS MD [facility] Start: 04-20-2022 End: 04-20-2022 Patient encounter procedure SPOILAGE WORKER-Janeen Ruiz SPOILAGE WORKER Work Phone: [facility] Start: 04-13-2022 End: 04-13-2022 Patient encounter procedure SPOILAGE WORKER-Janeen Ruiz SPOILAGE WORKER Work Phone: [facility] Start: 04-08-2022 End: 04-08-2022 ambulatory SPOILAGE WORKER-C Tea Ruiz SPOILAGE WORKER Work Phone: [facility] Work Phone: Start: 04-08-2022 End: 04-08-2022 Patient encounter procedure SPOILAGE WORKER-Janeen Ruiz SPOILAGE WORKER Work Phone: [facility] Start: 03-19-2022 End: 03-19-2022 Patient encounter procedure SPOILAGE WORKER-Janeen Ruiz SPOILAGE WORKER Work Phone: [facility] Start: 02-10-2022 Non-patient / Non-visit SPOILAGE WORKER-Janeen Ruiz SPOILAGE WORKER Work Phone: [facility] Start: 01-30-2022 End: 01-30-2022 Patient encounter procedure SPOILAGE WORKER-Janeen Ruiz SPOILAGE WORKER Work Phone: [facility] Start: 01-29-2022 End: 01-29-2022 Patient encounter procedure SOLIS SHELL CURTAIN FRAMER-EMPLOYEE HEALTH NURSE [facility] Start: 01-21-2022 End: 01-21-2022 Patient encounter procedure WILLARD A MADDIE CURTAIN FRAMER-EMPLOYEE HEALTH NURSE [facility] Start: 01-01-2022 End: 01-01-2022 Patient encounter procedure SOLIS SHELL CURTAIN FRAMER-EMPLOYEE HEALTH NURSE [facility] Start: 12-17-2021 End: 12-17-2021 Patient encounter procedure WILLARD A MADDIE CURTAIN FRAMER-EMPLOYEE HEALTH NURSE [facility] Start: 11-21-2021 Telephone encounter Tea dixon CURTAIN FRAMER.IMPREGNATOR HELPER Work Phone: [facility] [place] Comment on above: FYI-No Action Needed Start: 11-21-2021 End: 11-21-2021 Emergency department patient visit SPOILAGE WORKERNelda Ruiz SPOILAGE WORKER Work Phone: [facility]Emergency Department Start: 11-21-2021 End: 11-21-2021 Patient encounter procedure Tea Ruiz CURTAIN FRAMER.IMPREGNATOR HELPER Work Phone: [facility] [place] Comment on above: Chronic pain syndrom e (Primary Dx); Personal history of scleroderma; Acquired arm deformity, left; Acquired deformity of left lower leg Start: 11-13-2021 End: 11-13-2021 Patient encounter procedure LORETTA Ruiz NP Work Phone: [facility] Start: 11-06-2021 End: 11-06-2021 ambulatory MARCELLUS ROSADO Facility:[facility] Start: 11-06-2021 End: 11-06-2021 Patient encounter procedure Marcellus Rosado MD Work Phone: [facility] Comment on above: Lumbar spondylosis ( Primary Dx); Thoracic spondylosis without myelopathy; correction (current) use of opiate analgesic Start: 10-30-2021 End: 10-30-2021 Patient encounter procedure LORETTA Ruiz NP Work Phone: [facility] Start: 10-30-2021 End: 10-30-2021 Patient encounter procedure Andrew Alice Work Phone: Podiatry Comment on above: Equinus contracture of ankle (Primary Dx); Pes cavus; Callus of foot; Acquired deformity of left lower leg; Chronic pain syndrome; Personal history of scleroderma Start: 10-28-2021 Telephone encounter Grace feng PA-C Work Phone: [facility] Comment on above: Results Start: 10-27-2021 End: 10-27-2021 Patient encounter procedure Ginny Costa APRN.EMPLOYEE HEALTH NURSE Work Phone: [facility] Comment on above: Right calf pain (Rachele hailey Dx); Cellulitis of right lower leg; Itching; Elevated blood pressure reading without diagnosis of hypertension Start: 10-15-2021 End: 10-15-2021 Patient encounter procedure LORETTA Ruiz SPOILAGE WORKER Work Phone: [facility] Start: 10-06-2021 Refill Tea Ruiz APRN.IMPREGNATOR HELPER Work Phone: [facility] [place] Comment on above: Refill Request Start: 10-02-2021 End: 10-02-2021 ambulatory TORIBIO ERNANDEZ Facility:[facility] Start: 09-20-2021 Refill Toribio cho MD Work Phone: [facility] [place] Comment on above: Refill Request Refill Request (open ed in error ) Start: 09-16-2021 End: 09-16-2021 Patient encounter procedure Gregorio Soto APRN.EMPLOYEE HEALTH NURSE Work Phone: [facility] Comment on above: Ear infection (Prima ry Dx) Start: 08-12-2021 End: 08-12-2021 Patient encounter procedure Tea Ruiz APRN.IMPREGNATOR HELPER Work Phone: [facility] [place] Comment on above: Chronic pain syndrom e (Primary Dx); Encounter for immunization; Special screening examination for viral disease; Screening for HIV (human immunodeficiency virus); Screening for cervical cancer; Encounter for screening mammogram for breast cancer; Screening for lipid disorders; Screening for diabetes mellitus (DM); Screening for colon cancer; History of hyperlipidemia; Personal history of scleroderma; Well woman exam with routine gynecological exam; B12 deficiency; Acquired arm deformity, left; Acquired deformity of left lower leg; Callus of foot Start: 08-12-2021 Telephone encounter Toribio abbasi MD Work Phone: [facility] [place] Comment on above: Appointment Start: 08-08-2021 End: 08-08-2021 [facility] Start: 08-07-2021 Telephone encounter Tea dixon CURTAIN FRAMER.IMPREGNATOR HELPER Work Phone: [address] [place] [address] Comment on above: Refill Request Procedures Date Procedure Procedure Detail Performing Clinician Start: 05-31-2024 Drug tst prsmv read instrmnt asstd dir opt obs Britta Trinidad CURTAIN FRAMER - EMPLOYEE HEALTH NURSE Work Phone: Start: 05-31-2024 Microscopic observat ion [Identifier] in Cervix by Cyto stain Britta Trinidad CURTAIN FRAMER - EMPLOYEE HEALTH NURSE Work Phone: Start: 03-31-2024 Lipid 1996 panel - S epifanio or Plasma Juancho Goodman MD Work Phone: Start: 03-04-2023 Comprehensive metabo lic panel Britta Trinidad CURTAIN FRAMER - EMPLOYEE HEALTH NURSE Work Phone: Start: 03-04-2023 Lipid panel Britta zavala CURTAIN FRAMER - EMPLOYEE HEALTH NURSE Work Phone: Start: 03-04-2023 Lipid 1996 panel - S epifanio or Plasma Juancho Goodman MD Work Phone: Start: 03-04-2023 Mammography Britta zavala CURTAIN FRAMER - EMPLOYEE HEALTH NURSE Work Phone: Start: 02-15-2023 SARS-CoV-2 & FLU Ant igen (Rapid) Dr. Rayo Cantu Work Phone: Start: 02-03-2023 Drug tst prsmv read instrmnt asstd dir opt obs Brittamarkus Trinidad CURTAIN FRAMER - EMPLOYEE HEALTH NURSE Work Phone: Start: 12-23-2022 Plain X-ray of shoulder Dr. Rayo Cantu Work Phone: Start: 06-24-2022 X-ray of lumbar spin e, two or three views SPOILAGE WORKER-C Solis Tonyns SPOILAGE WORKER Work Phone: Start: 04-20-2022 Injection of steroid into hip joint SHRAVAN LUCAS MD Comment on above: [place] Start: 04-08-2022 MRI of joint of lowe r extremity SPOILAGE WORKER-C Tea Ruiz SPOILAGE WORKER Work Phone: Start: 01-30-2022 Plain X-ray of clavicle SPOILAGE WORKER-C Tea Ruiz SPOILAGE WORKER Work Phone: Start: 01-30-2022 Plain x-ray of pelvi s and lower extremity SPOILAGE WORKER-C Tea Ruiz SPOILAGE WORKER Work Phone: Start: 01-29-2022 Lipid 1996 panel - S epifanio or Plasma Britta Trudy CURTAIN FRAMER - EMPLOYEE HEALTH NURSE Work Phone: Start: 01-29-2022 Mammography Britta Dorene zavala CURTAIN FRAMER - EMPLOYEE HEALTH NURSE Work Phone: Start: 11-13-2021 Plain X-ray of clavicle SPOILAGE WORKER-C Tea Ruiz SPOILAGE WORKER Work Phone: Start: 11-12-2021 Injection into shoul rubi joint WILLARD PERKINS CURTAIN FRAMER-EMPLOYEE HEALTH NURSE Comment on above: [facility], s teroid Start: 10-15-2021 Plain X-ray of shoulder SPOILAGE WORKER-C Tea Ruiz SPOILAGE WORKER Work Phone: Start: 10-07-2021 Lipid 1996 panel - S epifanio or Plasma Sabrina Tineo MD Work Phone: Start: 10-02-2021 Adult depression scr eening assessment Tea Luongs CURTAIN FRAMER.IMPREGNATOR HELPER Work Phone: Start: 08-12-2021 Adult depression scr eening assessment Tea Luongs CURTAIN FRAMER.IMPREGNATOR HELPER Work Phone: Start: 06-15-2020 Destructive procedure C IHSANManuel MADDIE CURTAIN FRAMER-EMPLOYEE HEALTH NURSE Start: 02-16-2016 Medial epicondylitis of elbow joint (disorder) WILLARD PERKINS CURTAIN FRAMER-EMPLOYEE HEALTH NURSE Comment on above: right arm Start: 02-15-2015 Carpal tunnel syndro me (disorder) WILLARD PERKINS CURTAIN FRAMER-EMPLOYEE HEALTH NURSE Comment on above: right arm Start: 02-15-2013 Blind left eye (disorder) WILLARD PERKINS CURTAIN FRAMER-EMPLOYEE HEALTH NURSE Comment on above: blind left eye stitc hed closed Start: 02-16-1988 Transplanted skin (b chico structure) WILLARD PERKINS CURTAIN FRAMER-EMPLOYEE HEALTH NURSE Comment on above: skin graft of left a rm from right leg Miscellaneous (quali fier value) WILLARD PERKINS CURTAIN FRAMER-EMPLOYEE HEALTH NURSE Comment on above: places 2 kayla on each on right knee to prevent knee and leg from growing Plan of Treatment Date Care Activity Detail Author Start: 06-08-2047 RSV Immunization for Adults (1 - 1-dose 75+ series) RSV Immunization for Adults (1 - 1-dose 75+ series) [facility] Start: 2032 RSV Immunization aged 60 or older (1 - 1-dose 60+ series) RSV Immunization aged 60 or older (1 - 1-dose 60+ series) [facility] Start: 05-31-2029 Screening for malignant neoplasm of cervix [facility] Start: 03-31-2029 Lipid panel Lipid Panel [facility] Start: 03-04-2028 Lipid panel Lipid Panel [facility] Start: 06-01-2027 Screening for malignant neoplasm of cervix Pap Smear [facility] Start: 01-29-2027 Lipid panel Lipid Panel [facility] Start: 10-07-2026 Lipid 1996 panel - Serum or Plasma Lipid Screening [facility] Start: 10-07-2026 LIPID SCREEN LIPID SCREEN [facility] Start: 04-13-2025 Medicare Annual Wellness (AWV) Medicare Annual Wellness (AWV) [facility] Start: 03-15-2025 End: 03-15-2025 Patient encounter procedure 03/15/2025 3:00 PM EST Office Visit [facility] [address] [place] [address] [place] [address] Juancho Goodman MD [address] [place] [address] [facility] Start: 11-30-2024 End: 11-30-2024 Patient encounter procedure 11/30/2024 3:40 PM EDT [facility] [address] [place] [address] [place] [address] BridenthBritta long, CURTAIN FRAMER - EMPLOYEE HEALTH NURSE [address] [place] [address] [place] [address] [facility] Start: 11-30-2024 Depression Monitoring Depression Monitoring [facility] Start: 10-16-2024 Influenza vaccination Influenza Vaccine (#1) [facility] Start: 10-07-2024 DIABETES SCREEN DIABETES SCREEN [facility] Start: 10-07-2024 Diabetes Screening Diabetes Screening [facility] Start: 08-30-2024 End: 08-30-2024 Patient encounter procedure 08/30/2024 3:20 PM EDT [facility] [address] [place] [address] [place] [address] BridenthalGiaBritta, CURTAIN FRAMER - EMPLOYEE HEALTH NURSE [address] [place] [address] [place] [address] [facility] Start: 08-30-2024 End: 08-30-2025 DXA Skeletal system.axial Views for bone density DEXA bone density axial skeleton Imaging Routine Osteopetrosis Osteoporosis, unspecified osteoporosis type, unspecified pathological fracture presence Expected: 08/30/2024, Expires: 08/30/2025 [facility] Work Phone: Comment on above: Expected: 08/30/2024, Expires: Start: 05-31-2024 End: 05-31-2024 Patient encounter procedure 05/31/2024 3:00 PM EDT [facility] [address] [place] [address] [place] [address] Bridenthal, Britta, CURTAIN FRAMER - EMPLOYEE HEALTH NURSE [address] [place] [address] [place] [address] [facility] [place] Start: 05-02-2024 Depression Monitoring Depression Monitoring [facility] Start: 04-10-2024 End: 04-10-2024 Patient encounter procedure 04/10/2024 3:20 PM EST Office Visit [facility] [place] [address] [place] [address] [place] [address] Bridenthal, Britta, CURTAIN FRAMER - EMPLOYEE HEALTH NURSE [address] [place] [address] [place] [address] [facility] [place] Start: 04-03-2024 Medicare Advantage Annual Wellness Visit (AWV) Medicare Advantage Annual Wellness Visit (AWV) [facility] Start: 04-03-2024 Medicare Annual Wellness (AWV) Medicare Annual Wellness (AWV) [facility] Start: 03-14-2024 End: 03-14-2024 Patient encounter procedure 03/14/2024 2:40 PM EST Office Visit [facility] [place] [address] [place] [address] [place] [address] Bridenthal, Britta, CURTAIN FRAMER - EMPLOYEE HEALTH NURSE [address] [place] [address] [place] [address] [facility] Start: 03-14-2024 End: 03-14-2025 25-hydroxyvitamin D3 [Mass/volume] in Serum or Plasma Vitamin D Deficiency Screening (Vit D 25) Lab Routine Vitamin D deficiency Expected: 03/14/2024 (Approximate), Expires: 03/14/2025 [facility] Comment on above: Expected: 03/14/2024 (Approximate), Expi res: 03/14/2025 Start: 03-14-2024 End: 03-14-2025 CBC W Auto Differential panel - Blood CBC auto differential Lab Routine Screening for deficiency anemia Expected: 03/14/2024 (Approximate), Expires: 03/14/2025 [facility] Work Phone: Comment on above: Expected: 03/14/2024 (Approximate), Expi res: 03/14/2025 Start: 03-14-2024 End: 03-14-2025 Comprehensive metabolic 1998 panel - Serum or Plasma Comprehensive metabolic panel Lab Routine Primary hypertension Expected: 03/14/2024 (Approximate), Expires: 03/14/2025 [facility] Comment on above: Expected: 03/14/2024 (Approximate), Expi res: 03/14/2025 Start: 03-14-2024 End: 03-14-2025 Lipid 1996 panel - Serum or Plasma Lipid panel Lab Routine Primary hypertension Hypercholesterolemia Expected: 03/14/2024 (Approximate), Expires: 03/14/2025 [facility] Comment on above: Expected: 03/14/2024 (Approximate), Expi res: 03/14/2025 Start: 03-14-2024 End: 03-14-2025 Magnesium [Mass/volume] in Serum or Plasma Magnesium Lab Routine Osteopetrosis Expected: 03/14/2024 (Approximate), Expires: 03/14/2025 [facility] Comment on above: Expected: 03/14/2024 (Approximate), Expi res: 03/14/2025 Start: 03-14-2024 End: 03-14-2025 Parathyrin.intact [Mass/volume] in Serum or Plasma PTH, intact Lab Routine Osteopetrosis Expected: 03/14/2024 (Approximate), Expires: 03/14/2025 [facility] Comment on above: Expected: 03/14/2024 (Approximate), Expi res: 03/14/2025 Start: 03-14-2024 End: 03-14-2025 Phosphate [Moles/volume] in Serum or Plasma Phosphorus Lab Routine Osteopetrosis Expected: 03/14/2024 (Approximate), Expires: 03/14/2025 [facility] Comment on above: Expected: 03/14/2024 (Approximate), Expi res: 03/14/2025 Start: 03-14-2024 End: 03-14-2025 Thyrotropin [Units/volume] in Serum or Plasma TSH Lab Routine Primary hypertension Osteopetrosis Expected: 03/14/2024 (Approximate), Expires: 03/14/2025 [facility] [employer] Comment on above: Expected: 03/14/2024 (Approximate), Expi res: 03/14/2025 Start: 03-14-2024 End: 05-12-2025 US Breast - left limited Left breast US limited Imaging Routine Abnormal mammography Expected: 03/14/2024, Expires: 05/12/2025 [facility] Comment on above: Expected: 03/14/2024, Expires: Start: 03-04-2024 Screening for malignant neoplasm of breast Mammogram [facility] Start: 03-02-2024 End: 03-02-2024 Patient encounter procedure 03/02/2024 2:40 PM EST Office Visit [facility] [address] [place] [address] Britta Trinidad, KATHERINE - EMPLOYEE HEALTH NURSE [address] [facility] [place] [address] [facility] Start: 02-16-2024 Medicare Advantage Annual Wellness Visit Medicare Advantage Annual Wellness Visit [facility] Start: 02-04-2024 COVID-19 Vaccine (#1) COVID-19 Vaccine (#1) [facility] Comment on above: Postponed from 1972 (Patient Refus ed) Start: 02-04-2024 COVID-19 Vaccine ( season) COVID-19 Vaccine ( season) [facility] Comment on above: Postponed from 10/16/2022 (Patient Refus ed) Start: 02-04-2024 DTaP/Tdap/Td Vaccines (1 - Tdap) DTaP/Tdap/Td Vaccines (1 - Tdap) [facility] Comment on above: Postponed from 06/08/1991 (Patient Refus ed) Start: 02-04-2024 Hepatitis B Vaccines (1 of 3 - 19+ 3-dose series) Hepatitis B Vaccines (1 of 3 - 19+ 3-dose series) [facility] Comment on above: Postponed from 06/08/1991 (Patient Refus ed) Start: 02-04-2024 Hepatitis B Vaccines (1 of 3 - 3-dose series) Hepatitis B Vaccines (1 of 3 - 3-dose series) [facility] Comment on above: Postponed from 1972 (Patient Refus ed) Start: 02-04-2024 HIV screening HIV Screening [facility] Comment on above: Postponed from 1972 (Patient Refus ed) Start: 02-04-2024 Zoster Vaccines (1 of 2) Zoster Vaccines (1 of 2) [facility] Comment on above: Postponed from 2022 (Patient Refus ed) Start: 01-21-2024 Screening for osteoporosis Bone Density Scan [facility] Start: 01-11-2024 End: 01-11-2024 Patient encounter procedure 01/11/2024 3:20 PM EST Office Visit [facility] [address] [place] [address] Britta Trinidad, CURTAIN FRAMER - EMPLOYEE HEALTH NURSE [address] [place] [address] [facility] Start: 12-02-2023 End: 12-02-2023 Patient encounter procedure 12/02/2023 3:20 PM EDT Office Visit [facility] [address] [place] [address] Britta Trinidad, CURTAIN FRAMER - EMPLOYEE HEALTH NURSE [address] [place] [address] [facility] [place] Start: 11-03-2023 End: 11-03-2023 Patient encounter procedure [facility] Start: 11-03-2023 End: 01-02-2025 DBT Breast - bilateral screening Bilateral screening mammogram with tomosynthesis Imaging Routine Encounter for screening mammogram for malignant neoplasm of breast Expected: 11/03/2023, Expires: 01/02/2025 [facility] Work Phone: Comment on above: Expected: 11/03/2023, Expires: Start: 10-26-2023 End: 10-26-2023 Patient encounter procedure 10/26/2023 2:00 PM EDT Office Visit [facility] [address] [place] [id number] Estefanía Vera MD [address] [place] [address] [facility] Start: 10-17-2023 COVID-19 Vaccine ( season) COVID-19 Vaccine ( season) [facility] Start: 10-17-2023 Influenza vaccination Influenza Vaccine (#1) [facility] Start: 10-06-2023 End: 10-06-2023 Patient encounter procedure 10/06/2023 3:20 PM EDT Office Visit [facility] [address] [place] [address] [place] [address] Britta Trinidad, CURTAIN FRAMER - EMPLOYEE HEALTH NURSE [address] [place] [address] [facility] Start: 09-22-2023 End: 09-22-2023 Patient encounter procedure 09/22/2023 3:20 PM EDT Office Visit [facility] [address] [place] [address] Britta Trinidad, CURTAIN FRAMER - EMPLOYEE HEALTH NURSE [address] [facility] [place] [address] [facility] Start: 09-09-2023 End: 09-09-2023 Patient encounter procedure 09/09/2023 3:20 PM EDT Office Visit [facility] [address] [facility] [place] [address] CarlottaGia arangoecca, CURTAIN FRAMER - EMPLOYEE HEALTH NURSE [address] [facility] [place] [address] [place] [address] [facility] Start: 08-12-2023 End: 08-12-2023 Patient encounter procedure 08/12/2023 3:00 PM EDT Office Visit [facility] [address] [place] [id number] [facility] Start: 08-12-2023 End: 02-11-2024 25-hydroxyvitamin D3 [Mass/volume] in Serum or Plasma Vitamin D Deficiency Screening (Vit D 25) Lab Routine Age-related osteoporosis without current pathological fracture Vitamin D deficiency Expected: 08/12/2023 (Approximate), Expires: 02/11/2024 [facility] Comment on above: Expected: 08/12/2023 (Approximate), Expi res: 02/11/2024 Start: 08-12-2023 End: 02-11-2024 Comprehensive metabolic 1998 panel - Serum or Plasma Comprehensive metabolic panel Lab Routine Age-related osteoporosis without current pathological fracture Vitamin D deficiency Expected: 08/12/2023 (Approximate), Expires: 02/11/2024 [facility] Comment on above: Expected: 08/12/2023 (Approximate), Expi res: 02/11/2024 Start: 08-12-2023 End: 08-11-2024 DXA Skeletal system.axial Views for bone density DEXA bone density axial skeleton Imaging Routine Age-related osteoporosis without current pathological fracture Vitamin D deficiency Expected: 08/12/2023, Expires: 08/11/2024 [facility] Work Phone: Comment on above: Expected: 08/12/2023, Expires: Start: 08-12-2023 End: 02-11-2024 Magnesium [Mass/volume] in Serum or Plasma Magnesium Lab Routine Age-related osteoporosis without current pathological fracture Vitamin D deficiency Expected: 08/12/2023 (Approximate), Expires: 02/11/2024 [facility] [employer] Comment on above: Expected: 08/12/2023 (Approximate), Expi res: 02/11/2024 Start: 08-12-2023 End: 02-11-2024 Parathyrin.intact [Mass/volume] in Serum or Plasma PTH, intact Lab Routine Age-related osteoporosis without current pathological fracture Vitamin D deficiency Expected: 08/12/2023 (Approximate), Expires: 02/11/2024 [facility] [employer] Comment on above: Expected: 08/12/2023 (Approximate), Expi res: 02/11/2024 Start: 08-12-2023 End: 02-11-2024 Phosphate [Moles/volume] in Serum or Plasma Phosphorus Lab Routine Age-related osteoporosis without current pathological fracture Vitamin D deficiency Expected: 08/12/2023 (Approximate), Expires: 02/11/2024 [facility] [employer] Comment on above: Expected: 08/12/2023 (Approximate), Expi res: 02/11/2024 Start: 08-12-2023 End: 02-11-2024 Thyrotropin [Units/volume] in Serum or Plasma TSH Lab Routine Fatigue, unspecified type Expected: 08/12/2023 (Approximate), Expires: 02/11/2024 [facility] [employer] Comment on above: Expected: 08/12/2023 (Approximate), Expi res: 02/11/2024 Start: 07-28-2023 End: 07-28-2023 Patient encounter procedure 07/28/2023 3:20 PM EDT Office Visit [facility] [address] [facility] [place] [address] Britta Trinidad, CURTAIN FRAMER - EMPLOYEE HEALTH NURSE [address] [facility] [place] [address] [facility] Start: 07-08-2023 End: 07-08-2023 Patient encounter procedure [facility] Start: 06-29-2023 End: 06-29-2023 Patient encounter procedure 06/29/2023 3:15 PM EDT Appointment [facility] [address] [place] [phone] [facility] [address] Start: 06-29-2023 Subsequent hospital visit by physician 06/29/2023 3:15 PM EDT Hospital Encounter [facility] [address] [place] [phone] [facility] [address] Start: 06-24-2023 End: 06-24-2023 Patient encounter procedure [facility] Start: 05-26-2023 Depression Monitoring Depression Monitoring [facility] Start: 05-26-2023 Depresssion Monitoring Depresssion Monitoring [facility] Start: 05-20-2023 End: 05-19-2024 MR Lumbar spine WO contrast MR lumbar spine wo contrast Imaging Routine Mass on back Systemic sclerosis (HCC) Expected: 05/20/2023, Expires: 05/19/2024 [facility] Comment on above: Expected: 05/20/2023, Expires: Start: 05-20-2023 End: 05-19-2024 MR Thoracic spine WO contrast MR thoracic spine wo contrast Imaging Routine Mass on back Systemic sclerosis (HCC) Expected: 05/20/2023, Expires: 05/19/2024 [facility] Work Phone: Comment on above: Expected: 05/20/2023, Expires: Start: 05-18-2023 End: 05-18-2023 Patient encounter procedure 05/18/2023 2:40 PM EDT Office Visit [facility] [address] [place] [address] [place] [address] Britta Trinidad APRN - GARRISON [address] [place] [address] [facility] Start: 05-10-2023 End: 05-10-2023 Patient encounter procedure 05/10/2023 3:00 PM EDT Office Visit [facility] [address] [place] [phone] Andree Gamble MD [address] [place] [address] [facility] Start: 05-05-2023 Diabetes mellitus screening Diabetes Screening [facility] Comment on above: Postponed from 1990 (Other Patient Reasons) Start: 04-29-2023 End: 04-29-2023 Patient encounter procedure 04/29/2023 3:20 PM EDT Office Visit [facility] [address] [place] [address] Bridenthal, Britta, CURTAIN FRAMER - EMPLOYEE HEALTH NURSE [address] [facility] [address] [place], [place] [id number] [facility] Start: 04-04-2023 Screening for malignant neoplasm of colon Colorectal Cancer Screening [facility] Comment on above: Postponed from 1972 (Other Patient Reasons) Start: 03-31-2023 End: 03-31-2023 Patient encounter procedure 03/31/2023 3:20 PM EST Office Visit [facility] [address] [facility] [place] [address] [place] [address] Bridenthal, Britta, CURTAIN FRAMER - EMPLOYEE HEALTH NURSE [address] [facility] [address] [place], [place] [id number] [facility] Start: 03-06-2023 Screening for malignant neoplasm of cervix Cervical Cancer Screening [facility] [employer] Comment on above: Postponed from 2002 (Other Patient Reasons) Start: 03-04-2023 End: 03-04-2024 25-hydroxyvitamin D3 [Mass/volume] in Serum or Plasma Vitamin D Deficiency Screening (Vit D 25) Lab Routine Encounter for vitamin deficiency screening Expected: 03/04/2023 (Approximate), Expires: 03/04/2024 [facility] Comment on above: Expected: 03/04/2023 (Approximate), Expi res: 03/04/2024 Start: 03-04-2023 End: 03-04-2024 CBC panel - Blood by Automated count CBC Lab Routine Screening for deficiency anemia Expected: 03/04/2023 (Approximate), Expires: 03/04/2024 [facility] Comment on above: Expected: 03/04/2023 (Approximate), Expi res: 03/04/2024 Start: 03-04-2023 End: 03-04-2024 Cobalamin (Vitamin B12) [Mass/volume] in Serum or Plasma Vitamin B12 Lab Routine Encounter for vitamin deficiency screening Expected: 03/04/2023 (Approximate), Expires: 03/04/2024 [facility] Comment on above: Expected: 03/04/2023 (Approximate), Expi res: 03/04/2024 Start: 03-04-2023 End: 03-04-2024 Comprehensive metabolic 1998 panel - Serum or Plasma Comprehensive metabolic panel Lab Routine Primary hypertension Expected: 03/04/2023 (Approximate), Expires: 03/04/2024 [facility] [employer] [facility] Work Phone: Comment on above: Expected: 03/04/2023 (Approximate), Expi res: 03/04/2024 Start: 03-04-2023 End: 03-04-2024 CT Chest for screening WO contrast [facility] Comment on above: Expected: 03/04/2023, Expires: Start: 03-04-2023 End: 03-04-2024 Lipid 1996 panel - Serum or Plasma Lipid panel Lab Routine Hypercholesterolemia Expected: 03/04/2023 (Approximate), Expires: 03/04/2024 [facility] Comment on above: Expected: 03/04/2023 (Approximate), Expi res: 03/04/2024 Start: 03-04-2023 End: 03-04-2023 Patient encounter procedure 03/04/2023 9:00 AM EST Office Visit [facility] [address] [place] [address] [place] [address] Britta Trinidad, CURTAIN FRAMER - EMPLOYEE HEALTH NURSE [address] [place] [address] [facility] Start: 02-15-2023 [facility] Start: 02-03-2023 End: 02-03-2023 Patient encounter procedure 02/03/2023 3:00 PM EST Office Visit [facility] [address] [place] [address] [place] [address] Bridenthal, Britta, CURTAIN FRAMER - EMPLOYEE HEALTH NURSE [address] [place] [address] [place] [address] [facility] Start: 01-29-2023 Screening for malignant neoplasm of breast Mammogram [facility] Start: 01-20-2023 Screening for osteoporosis Bone Density Scan [facility] Start: 01-06-2023 End: 01-06-2023 Patient encounter procedure 01/06/2023 3:20 PM EST Office Visit [facility] [address] [place] [address] [place] [address] Bridenthal, Britta, CURTAIN FRAMER - EMPLOYEE HEALTH NURSE [address] [place] [address] [place] [address] [facility] Start: 12-07-2022 End: 12-07-2022 Patient encounter procedure 12/07/2022 3:20 PM EDT Office Visit [facility] [address] [place] [address] [place] [address] Bridenthal, Britta, CURTAIN FRAMER - EMPLOYEE HEALTH NURSE [address] [place] [address] [place] [address] [facility] Start: 10-16-2022 Influenza vaccination Influenza Vaccine (#[facility]) [facility] Start: 10-02-2022 Adult depression screening assessment DEPRESSION SCREENING [facility] Start: 08-31-2022 Procedure [facility] Start: 08-12-2022 Adult depression screening assessment DEPRESSION SCREENING [facility] Start: 06-24-2022 Patient referral [facility] Work Phone: Start: 2022 Screening for malignant neoplasm of lung Lung Cancer Screening [facility] Start: 2022 Shingrix Vaccine (1 of 2) Shingrix Vaccine (1 of 2) [facility] Start: 2022 Zoster Vaccines (1 of 2) Zoster Vaccines (1 of 2) [facility] Start: 05-21-2022 Iv infusion ther proph addl sequential to 1 hr TX/PROPH/DG ADDL SEQ IV INF [facility] Start: 05-21-2022 Iv infusion therapy/prophylaxis /dx 1st to 1 hr THER/PROPH/DIAG IV INF [facility] Start: 05-20-2022 Iv infusion ther proph addl sequential to 1 hr TX/PROPH/DG ADDL SEQ IV INF [facility] Start: 05-20-2022 Iv infusion therapy/prophylaxis /dx 1st to 1 hr THER/PROPH/DIAG IV INF [facility] Start: 05-19-2022 Iv infusion therapy/prophylaxis /dx 1st to 1 hr THER/PROPH/DIAG IV INF [facility] Start: 05-18-2022 Iv infusion therapy/prophylaxis /dx 1st to 1 hr THER/PROPH/DIAG IV INF [facility] Start: 05-16-2022 Iv infusion therapy/prophylaxis /dx 1st to 1 hr THER/PROPH/DIAG IV INF [facility] Start: 05-14-2022 Complete blood count [facility] Start: 05-14-2022 [facility] Start: 05-13-2022 Iv infusion hydration each additional hour HYDRATE IV INFUSION ADD-ON [facility] Start: 05-12-2022 Iv infusion therapy/prophylaxis /dx 1st to 1 hr THER/PROPH/DIAG IV INF [facility] Start: 05-12-2022 Therapeutic injection iv push each new drug TX/PRO/DX INJ NEW DRUG [facility] Start: 05-11-2022 Iv infusion therapy/prophylaxis /dx 1st to 1 hr THER/PROPH/DIAG IV INF [facility] Start: 05-11-2022 Therapeutic injection iv push each new drug TX/PRO/DX INJ NEW DRUG [facility] Start: 05-09-2022 Iv infusion therapy/prophylaxis /dx 1st to 1 hr THER/PROPH/DIAG IV INF INIT [facility] Start: 05-08-2022 Iv infusion therapy/prophylaxis /dx 1st to [facility]: 02-16-[facility]22 Urine microalbumin profile DTAP,TDAP,TD (1 - Tdap) [facility] Comment on above: Postponed from 06/08/1991 (Insurance Cov erage) Start: 02-15-2022 Depression Assessment Depression Assessment [facility] Start: 02-10-2022 Patient referral [facility] Work Phone: Start: 01-30-2022 Patient referral [facility] Work Phone: Start: 10-16-2021 Influenza vaccination [facility] Start: 08-12-2021 End: 10-12-2021 CBC W Auto Differential panel - Blood CBC + DIFF Lab Routine Chronic pain syndrome Expected: 08/12/2021, Expires: 10/12/2021 [facility] Work Phone: Comment on above: Expected: 08/12/2021, Expires: 2 Start: 08-12-2021 End: 10-12-2021 Cobalamin (Vitamin B12) [Mass/volume] in Serum or Plasma VITAMIN B12 BLOOD Lab Routine B12 deficiency Expected: 08/12/2021, Expires: 10/12/2021 [facility] Work Phone: Comment on above: Expected: 08/12/2021, Expires: 2 Start: 08-12-2021 End: 10-12-2021 Comprehensive metabolic 2000 panel - Serum or Plasma COMP METABOLIC PANEL Lab Routine Chronic pain syndrome Expected: 08/12/2021, Expires: 10/12/2021 [facility] Work Phone: Comment on above: Expected: 08/12/2021, Expires: 2 Start: 08-12-2021 End: 10-12-2021 Hepatitis C virus Ab [Presence] in Serum HEP C AB IA W/CONF SCRN Lab Routine Special screening examination for viral disease Expected: 08/12/2021, Expires: 10/12/2021 [facility] Work Phone: Comment on above: Expected: 08/12/2021, Expires: 2 Start: 08-12-2021 End: 10-12-2021 HIV 1+2 Ab [Presence] in Serum or Plasma by Immunoassay HIV 1 2 COMBO(AG/AB),WITH REFLEX TO DIFFERENTIATION Lab Routine Screening for HIV (human immunodeficiency virus) Expected: 08/12/2021, Expires: 10/12/2021 [facility] Work Phone: Comment on above: Expected: 08/12/2021, Expires: 2 Start: 08-12-2021 End: 10-12-2021 Lipid 1996 panel - Serum or Plasma LIPID PANEL BASIC Lab Routine Screening for lipid disorders History of hyperlipidemia Expected: 08/12/2021, Expires: 10/12/2021 [facility] Work Phone: Comment on above: Expected: 08/12/2021, Expires: 2 Start: 08-12-2021 End: 10-12-2021 LIPID PANEL, NONFASTING LIPID PANEL, NONFASTING Lab Routine Screening for lipid disorders History of hyperlipidemia Expected: 08/12/2021, Expires: 10/12/2021 [facility] Work Phone: Comment on above: Expected: 08/12/2021, Expires: 2 Start: 08-12-2021 End: 10-12-2021 PAIN PANEL, UR QUANT PAIN PANEL, UR QUANT Lab Routine Chronic pain syndrome Expected: 08/12/2021, Expires: 10/12/2021 [facility] Work Phone: Comment on above: Expected: 08/12/2021, Expires: 2 Start: 08-12-2021 End: 10-12-2021 TOX SCREEN ROUT UR TOX SCREEN ROUT UR Lab Routine Chronic pain syndrome Expected: 08/12/2021, Expires: 10/12/2021 [facility] Work Phone: Comment on above: Expected: 08/12/2021, Expires: 2 Start: 02-15-2021 DEPRESSION ASSESSMENT DEPRESSION ASSESSMENT [facility] Start: 2017 COLOGUARD (FIT-DNA) COLOGUARD (FIT-DNA) [facility] Start: 2017 Colonoscopy COLONOSCOPY [facility] Start: 2017 COLORECTAL CANCER SCREENING COLORECTAL CANCER SCREENING [facility] Start: [address] COLONOGRAPHY [facility] Start: 2017 DIABETES SCREEN DIABETES SCREEN [facility] Start: 2017 FECAL OCCULT BLOOD FECAL OCCULT BLOOD [facility] Start: 2017 LIPID SCREEN LIPID SCREEN [facility] Start: 2017 SIGMOIDOSCOPY SIGMOIDOSCOPY [facility] Start: 2012 Mammography [facility] Start: 2012 Screening for malignant neoplasm of breast Mammogram [facility] Start: 03-06-2008 PAP TESTING PAP TESTING [facility] Start: 2002 HPV TESTING HPV TESTING [facility] Start: 2002 Screening for malignant neoplasm of cervix [facility] Start: 1993 Screening for malignant neoplasm of cervix Pap Smear [facility] Start: 06-08-1991 DTaP/Tdap/Td Vaccines (1 - Tdap) DTaP/Tdap/Td Vaccines (1 - Tdap) [facility] Start: 06-08-1991 Hepatitis B Vaccines (1 of 3 - 19+ 3-dose series) Hepatitis B Vaccines (1 of 3 - 19+ 3-dose series) [facility] Start: 06-08-1991 Urine microalbumin profile [facility] Start: 1990 Diabetes mellitus screening Diabetes Screening [facility] Start: 1990 HEPATITIS C SCREENING HEPATITIS C SCREENING [facility] Start: 1990 Hepatitis C screening Hepatitis C Screening [facility] Start: 1990 HIV SCREENING HIV SCREENING [facility] Start: 1984 Adult depression screening assessment DEPRESSION SCREENING [facility] Start: 1978 PNEUMOCOCCAL (1 - PCV) PNEUMOCOCCAL (1 - PCV) [facility] Start: 1978 Pneumococcal vaccination Pneumococcal Vaccine (1 - PCV) [facility] Start: 1977 COVID-19 VACCINE (#1) COVID-19 VACCINE (#1) [facility] Start: 1973 MMR Vaccines (1 of 1 - Standard series) MMR Vaccines (1 of 1 - Standard series) [facility] Start: 1972 COVID-19 VACCINE (#1) COVID-19 VACCINE (#1) [facility] Start: 1970 HEPATITIS B (1 of 3 - 3-dose series) HEPATITIS B (1 of 3 - 3-dose series) [facility] Start: 1972 Hepatitis B Vaccine (1 of 3 - 3-dose series) Hepatitis B Vaccine (1 of 3 - 3-dose series) [facility] Start: 1972 Hepatitis B Vaccines (1 of 3 - 3-dose series) Hepatitis B Vaccines (1 of 3 - 3-dose series) [facility] Start: 1972 HIV screening HIV Screening [facility] Start: 1972 Lipid panel Lipid Panel [facility] Start: 1972 Medicare Advantage Annual Wellness Visit (AWV) Medicare Advantage Annual Wellness Visit (AWV) [facility] Start: 1972 Screening for malignant neoplasm of colon [facility] Start: 1972 Screening for osteoporosis Bone Density Scan [facility] Alanine aminotransfe rase [Enzymatic activity/volume] in Serum or Plasma [facility] Albumin [Mass/volume ] in Serum or Plasma [facility] Alkaline phosphatase [Enzymatic activity/volume] in Serum or Plasma [facility] Anion gap measurement [facility] Aspartate aminotransferase [Enzymatic activity/volume] in Serum or Plasma [facility] Bilirubin, total measurement [facility] BUN/Creatinine ratio [facility] Calcium [Mass/volume ] in Serum or Plasma [facility] Carbon dioxide, tota l [Moles/volume] in Serum or Plasma [facility] Chloride [Moles/volu me] in Serum or Plasma [facility] Creatinine [Moles/volume] in Serum or Plasma [facility] Cytology Cervical or vaginal smear or scraping study Pap Smear Pathology and Cytology Routine Screening for cervical cancer Ordered: 05/31/2024 [facility] Work Phone: Comment on above: Ordered: 05/31/2024 Erythrocyte sedimentation rate [facility] Glucose [Mass/volume ] in Serum or Plasma [facility] Hematocrit [Volume Fraction] of Blood [facility] Hemoglobin [Mass/vol ume] in Blood [facility] Leukocytes [#/volume ] in Blood [facility] Mean corpuscular hemoglobin concentration determination [facility] Mean corpuscular hemoglobin determination [facility] Measurement of renal function [facility] End: 07-08-2023 MR Lumbar spine WO contrast [facility] Work Phone: Comment on above: Once for 1 Occurrences starting 07/08/19 until 07/08/2023 End: 07-08-2023 MR Thoracic spine WO contrast [facility] Work Phone: Comment on above: Once for 1 Occurrences starting 07/08/19 until 07/08/2023 OUTSIDE PROCEDURE SCAN OUTSIDE P ROCEDURE SCAN Procedures Ordered: 06/23/2023 [facility] Comment on above: Ordered: 06/23/2023 OUTSIDE PROCEDURE SCAN OUTSIDE P ROCEDURE SCAN Procedures Ordered: 06/28/2023 [facility] Comment on above: Ordered: 06/28/2023 OUTSIDE PROCEDURE SCAN OUTSIDE P ROCEDURE SCAN Procedures Ordered: 07/07/2023 [facility] Comment on above: Ordered: 07/07/2023 Patient Education [facility] Work Phone: Patient referral [facility] Work Phone: PFIZER-BIONTECH COVI D-19 VACCINE, AGE 12+ YR (MORALES TOP) [employer]ER-[employer] COVID-19 VACCINE, AGE 12+ YR (MORALES TOP) Immunization/Injection Routine Encounter for immunization 1 Occurrences starting 08/12/2021 [facility] Work Phone: Comment on above: 1 Occurrences starting 08/12/2021 Platelets [#/volume] in Blood [facility] Pneumococcal vaccination PNEUMOC OCCAL VACCINE (PREVNAR 20) Immunization/Injection Routine Encounter for immunization 1 Occurrences starting 08/12/2021 [facility] Work Phone: Comment on above: 1 Occurrences starting 08/12/2021 Potassium [Moles/vol ume] in Serum or Plasma [facility] End: 12-18-2023 [facility]x spine lumbosacral 2/3 views XR LUMBAR GENERAL 3V AP/LAT/L5-S1 Radiology Routine Lumbar spondylosis Low back pain, unspecified back pain laterality, unspecified chronicity, unspecified whether sciatica present 1 Occurrences starting 11/18/2022 until 12/18/2023 [facility] Work Phone: Comment on above: 1 Occurrences starting 11/18/2022 until 12/18/2023 End: 12-18-2023 Radex spine thoracic 2 views XR THORACIC LIMITED 2V AP/LAT Radiology Routine Thoracic spondylosis without myelopathy 1 Occurrences starting 11/18/2022 until 12/18/2023 [facility] Work Phone: Comment on above: 1 Occurrences starting 11/18/2022 until 12/18/2023 Red blood cell count [facility] Red cell distributio n width determination [facility] End: 09-11-2022 Screening mammography bi 2-view breast inc cad CORBIN SCREENING Radiology Routine Encounter for screening mammogram for breast cancer 1 Occurrences starting 08/12/2021 until 09/11/2022 [facility] Work Phone: Comment on above: 1 Occurrences starting 08/12/2021 until 09/11/2022 Sodium [Moles/volume ] in Serum or Plasma [facility] Total protein measurement [facility] Urea nitrogen [Mass/volume] in Serum or Plasma [facility] End: 10-27-2022 US LEG VEIN DVT UNL VAS LAB US LEG VEIN DVT UNL VAS LAB Vascular Lab Routine Right calf pain 1 Occurrences starting 10/27/2021 until 10/27/2022 [facility] Work Phone: Comment on above: 1 Occurrences starting 10/27/2021 until 10/27/2022 Vancomycin [Mass/vol ume] in Serum or Plasma --trough [facility] Immunizations Immunization Date Immunization Notes Care Provider Carl ricks 12-09-2023 influenza, seasonal, injectable, preservative free Britta Bridenthal [employer] Work Phone: [facility] 12-09-2023 influenza virus vaccine, unspecified formulation Britta Bridenthal [employer] Work Phone: [facility] 12-07-2022 Seasonal, quadrivale nt, recombinant, injectable influenza vaccine, preservative free Juancho Goodman MD Work Phone: [facility] 12-07-2022 influenza virus vaccine, unspecified formulation Sbh Schedule [facility] 12-30-2021 Pneumococcal conjuga te PCV20, polysaccharide [id number] conjugate, adjuvant, PF; Translations: [Prevnar 20] SOLIS SHELL [employer]SE [facility] 11-24-2021 influenza, injectabl e, quadrivalent, contains preservative; Translations: [Fluarix PF Quadrivalent ] WILLARD PERKINS [employer] N[employer]SE [facility] 11-24-2021 influenza, injectabl e, quadrivalent, preservative free Britta Trudy [employer] Work Phone: [facility] 11-24-2021 influenza virus vaccine, unspecified formulation Sabrina Tineo MD Work Phone: [facility] 10-22-2016 influenza virus vaccine, unspecified formulation WILLARD PERKINS [employer] N[employer]SE [facility] 10-22-2016 influenza, injectabl e, quadrivalent, preservative free Britta Fordal [employer] Work Phone: [facility] Payers Date Payer Category Payer Private Health Insurance [id number] 2023 Self-pay 2022 Medicare HMO [id number] 2021 Medicaid [id number] 2021 Medicaid [id number] 2021 Unknown [id number] 2021 Medicare [facility] AARP MEDICAR E [facility] AARP MEDICARE O [id number] 2021-Present [phone] [address] [address] [place] [address] O [id number] 2021 Medicare MEDICARE ADVANTA GE GENERIC MEDICARE ADVANTAGE GENERIC [id number] 2021-Present [phone] [address] [address] [place] [address] Indemnity [id number] 1998 Medicare [id number] 1998 Medicare [id number] 1972 Unknown [id number] 1972 Unknown [id number] 1972 Unknown [id number] 627 1972 Unknown [id number] 1972 Unknown [id number] Unknown [facility] MCRDUAL COMP O [id number] Unknown [id number] Unknown [id number] Unknown [id number] Unknown [id number] 462 Unknown [id number] Unknown [id number] Social History Date Type Detail Facility [facility] Work Phone: Start: 08-08-2021 End: 02-15-2023 Tobacco smoking status NHIS Unknown if ever smoked [facility] Start: 1970 Sex Assigned At Female A [facility] Start: 08-12-2021 End: 08-12-2023 Tobacco smoking status NHIS Smokes tobacco daily [facility] Work Phone: History of tobacco use Cigarette Smoker [facility] Work Phone: Start: 02-03-2010 End: 11-18-2022 Alcohol intake Current non-drinker of alcohol (finding) [facility] Start: 1970 Sex Assigned At Not on file [facility] Start: 07-26-2021 End: 08-05-2021 Exposure to SARS-CoV-2 (event) Unable to assess [facility] Work Phone: Start: 08-02-2021 End: 11-21-2021 Exposure to SARS-CoV-2 (event) Not sure [facility] Work Phone: Start: 08-12-2021 End: 11-03-2023 Cigarettes smoked current (pack per day) - Reported 0.5 [facility] Start: 08-12-2021 End: 08-12-2023 Tobacco use and exposure Smokeless tobacco non-user [facility] Work Phone: Start: 11-24-2021 Tobacco smoking status Heavy t obacco smoker (finding) [facility] Start: 05-12-2022 End: 08-11-2022 Tobacco smoking status Light tobacco smoker (finding) [facility] Start: 11-18-2022 End: 11-03-2023 Tobacco use panel [facility] Adult Depression Screening Assessment 0 [facility] Start: 11-24-2022 End: 08-30-2024 Alcohol intake Ex-drinker (finding) [place] (I/We) worried wheth er (my/our) food would run out before (I/we) got money to buy more. Never true [place] In the past 12 month s, was there a time when you were not able to pay the mortgage or rent on time? No [facility] Start: 06-29-2018 End: 07-22-2022 Sex Female (finding) [place] Sexual Orientation Earl zacarias [facility] NEGATED: Highlighted row [facility] Functional Status Date Assessment Result Facility 08-05-2023 Functional Status Objective: Observation: Significant scoliosis noted influenced by R vs L limb size difference. Significant muscle atrophy is noted on the L upper and lower body including the paraspinal musculature grossly. Pt has a slightly greater than 5 cm leg length discrepency in supine. It may be more than this but her hip/trunk position appears to compensate for this chronic leg length issue. She does have a modified L shoe but it does appear 0.5cm-1cm shorter than it could be. She plans to consult with an [facility] gentleman who makes her shoes. Cardiovascular screen: BP:170/88, O2 sat: 99% HR: 79 bpm Sensation: Grossly intact and symmetrical light touch. Reflexes: Quads R: 1+ L: NT Achilles R: 1+ L: NT Gait: flexed posture with decreased stride length with circumduction on the R Flexibility: Hips grossly limited in ROM most notably flexion Special Tests: Slump: + R Motion testing: Flexion/bending inc back pain, ext inc back pain, Seated with smaller cervical roll did appear to improve symptoms. 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 [facility] 07-03-2022 Functional Status Objective: Cardiovascular screen: BP: 146/88 (R arm only per patient) HR: 76 BPM O2 sat: 98% Gait: Atalgic with lateral trunk shift L, ambulates with narrow base of support and short shuffling steps. hip ROM and strength: see chart Obsevation: Gregorio does appear to have significant atrophy, L shoe is built up to increase leg length [facility] 05-13-2022 Functional Status Room check performed [facility] 05-07-2022 Functional Status Room located n ear nursing station, Door open, Bathroom light on, Non-Slip footwear, Room check performed [facility] 05-07-2022 Functional Status [facility] 05-07-2022 Functional Status bilateral knee high [facility] 05-07-2022 Functional Status [facility] 05-07-2022 Functional Status [facility] 05-06-2022 Functional Status Skin Care Prev entative Intervention(s) heel(s)s elevated [facility] 05-06-2022 Functional Status Lunch Percent 50 [facility] 05-06-2022 Functional Status [facility] 05-05-2022 Functional Status [facility] 05-05-2022 Functional Status SCD On/Re-appl ied bilateral knee high [facility] 05-05-2022 Functional Status [facility] 05-05-2022 Functional Status Collaborated w [facility] OT to gather information regarding PLOF and home set-up (05/05/22) [facility] 05-05-2022 Functional Status [facility] 05-04-2022 Functional Status None [facility] 05-04-2022 Functional Status [facility] 05-04-2022 Functional Status Apartment [facility] 05-04-2022 Functional Status [facility] 05-03-2022 Functional Status [facility] Minimum roxie tance [facility] 05-03-2022 Functional Status [facility] 05-03-2022 Functional Status Assistive Equi pment elevated on pillows [facility] 05-03-2022 Functional Status [facility] 05-03-2022 Functional Status [facility] 03-18-2023 Functional Status [facility] 05-02-2022 Functional Status [facility] 05-02-2022 Functional Status Maintained [facility] 05-02-2022 Functional Status [facility] 05-02-2022 Functional Status [facility] 05-02-2022 Functional Status N/A [facility] 05-02-2022 Functional Status Room check performed [facility] 05-01-2022 [facility] Functional Status Earl Baker [facility] 05-01-2022 Functional Status Earl Baker [facility] 05-01-2022 Functional Status Earl Baker [facility] 05-01-2022 Functional Status Breakfast Percent 25 [facility] 05-01-2022 Functional Status Yes Earl Baker [facility] 04-30-2022 Functional Status Earl Baker [facility] 04-30-2022 Functional Status SCD On/Re-appl ied bilateral knee high [facility] 04-30-2022 Functional Status Earl [facility] 04-30-2022 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, 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, 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, Housework, Laundry, Meal preparation, Personal ADL, Shopping [facility] 04-29-2022 Functional Status Sensory Defici ts Blind, left eye [facility] Mental Status Date Assessment Result Facility 02-15-2023 Cognitive function Level Of Cons ciousness Awake;Alert;Appropriate;Follow s Commands [facility] Work Phone: 05-20-2022 Cognitive function Awake;Alert;A ppropriate;Follow s Commands [facility] Work Phone: 05-19-2022 Cognitive function Voice/Name [facility] Work Phone: 05-18-2022 Cognitive function Voice/Name [facility] Work Phone: 05-15-2022 Cognitive function Awake;Alert;A ppropriate;Follow s Commands [facility] Work Phone: 05-14-2022 Cognitive function Awake;Alert;A ppropriate;Follow s Commands [facility] Work Phone: 05-13-2022 Mental Status Oriented x 4 [facility] 05-13-2022 Cognitive function Awake;Alert;A ppropriate;Follow s Commands [facility] Work Phone: 05-12-2022 Cognitive function Voice/Name [facility] Work Phone: 05-11-2022 Cognitive function Voice/Name [facility] Work Phone: 05-08-2022 Cognitive function Voice/Name [facility] Work Phone: 05-07-2022 Mental Status Oriented x 4 [facility] 05-07-2022 Mental Status [facility] 05-06-2022 Mental Status [facility] 05-06-2022 Mental Status [facility] 05-02-2022 Mental Status Orientation Oriented x 4 [facility] 05-01-[address] [facility] 05-01-[address] [facility] 05-01-[address] [facility] 08-08-2021 Cognitive function Level Of Cons ciousness Awake;Alert;Appropriate;Follow s Commands;Responds to vocal stimuli [facility] Work Phone: Clinical Notes 08-08-2021 to 10-06-2024 Telephone Encounter - KATHERINE Escalante CNP - 10/06/2024 9:17 AM EDTTelephone Encounter - KATHERINE Escalante CNP - 10/06/2024 9:17 AM Victoria Mack - 08/30/2024 3:20 PM EDT Note Date & Type Note Facility 10-06-2024 Telephone encounter Note Reviewed chart. Refill appropriate. RX sent. [facility] 10-06-2024 Miscellaneous Notes Reviewed chart. Refill appropriate. RX sent. Prescription Request: ATORVASTATIN 20 MG TABLET AMITRIPTYLINE HCL 50 MG TAB Last medication check: 08/30/24 Last physical exam: 03/14/24 Next scheduled appointment: 11/30/24 Last date of refill on this medication Atorvastatin - 04/04/24 ( qty 90 refill 1) Amitryptyline - 04/14/24 ( qty 90 refill 1) Routing to correct office. documented in this encounter [facility] 10-06-2024 Telephone encounter Note Prescription Request: ATORVASTATIN 20 MG TABLET AMITRIPTYLINE HCL 50 MG TAB Last medication check: 08/30/24 Last physical exam: 03/14/24 Next scheduled appointment: 11/30/24 Last date of refill on this medication Atorvastatin - 04/04/24 ( qty 90 refill 1) Amitryptyline - 04/14/24 ( qty 90 refill 1) [facility] 10-06-2024 Telephone encounter Note Routing to correct office. [facility] 10-06-2024 Telephone encounter Note Reviewed chart. Refill appropriate. RX sent. [facility] 10-06-2024 Miscellaneous Notes Reviewed chart. Refill appropriate. RX sent. Images from the original note were not included. Prescription Request: oxyCODONE-acetaminophen (Percocet) 5-325 MG tablet Last medication check: 08/30/24 Last physical exam: 03/14/24 Next scheduled appointment: 11/30/24 CSA on file (date): 06/13/24 Last urine drug screen: 05/31/24 Last date of refill on this medication 09/07/24 ( qty 90 refill 0) documented in this encounter [facility] 10-06-2024 Telephone encounter Note Images from the original note were not included. Prescription Request: oxyCODONE-acetaminophen (Percocet) 5-325 MG tablet Last medication check: 08/30/24 Last physical exam: 03/14/24 Next scheduled appointment: 11/30/24 CSA on file (date): 06/13/24 Last urine drug screen: 05/31/24 Last date of refill on this medication 09/07/24 ( qty 90 refill 0) [facility] 10-04-2024 Telephone encounter Note Reviewed chart. Refill appropriate. RX sent. [facility] 10-04-2024 Miscellaneous Notes Reviewed chart. Refill appropriate. RX sent. Prescription Request: Last medication check: 08/30/2024 Last physical exam: 03/14/2024 Next scheduled appointment: 11/30/2024 CSA on file (date): 01/11/2024 Last urine drug screen: 05/31/2024 Last date of refill on this medication: 08/30/2024 documented in this encounter [facility] 10-04-2024 Telephone encounter Note Prescription Request: Last medication check: 08/30/2024 Last physical exam: 03/14/2024 Next scheduled appointment: 11/30/2024 CSA on file (date): 01/11/2024 Last urine drug screen: 05/31/2024 Last date of refill on this medication: 08/30/2024 [facility] 09-07-2024 Telephone encounter Note Reviewed chart. Refill appropriate. RX sent. [facility] 09-07-2024 Miscellaneous Notes Reviewed chart. Refill appropriate. RX sent. Images from the original note were not included. Prescription Request: oxyCODONE-acetaminophen (Percocet) 5-325 MG tablet Last medication check: 08/30/24 Last physical exam: 03/14/24 Next scheduled appointment: 11/30/24 Last date of refill on this medication 08/10/24 ( qty 90 refill 0) documented in this encounter [facility] 09-07-2024 Telephone encounter Note Reviewed chart. Refill appropriate. RX sent. [facility] 09-07-2024 Miscellaneous Notes Reviewed chart. Refill appropriate. RX sent. Prescription Request: TIZANIDINE HCL 4 MG TABLET Last medication check: 08/30/24 Last physical exam: 03/14/24 Next scheduled appointment: 11/30/24 Last date of refill on this medication 03/14/24 ( qty 90 refill 1) documented in this encounter [facility] 09-07-2024 Telephone encounter Note Prescription Request: TIZANIDINE HCL 4 MG TABLET Last medication check: 08/30/24 Last physical exam: 03/14/24 Next scheduled appointment: 11/30/24 Last date of refill on this medication 03/14/24 ( qty 90 refill 1) [facility] 09-07-2024 Telephone encounter Note Images from the original note were not included. Prescription Request: oxyCODONE-acetaminophen (Percocet) 5-325 MG tablet Last medication check: 08/30/24 Last physical exam: 03/14/24 Next scheduled appointment: 11/30/24 Last date of refill on this medication 08/10/24 ( qty 90 refill 0) [facility] 08-31-2024 Telephone encounter Note Please sign new referral. [facility] 08-31-2024 Miscellaneous Notes Please sign new referral. documented in this encounter [facility] 08-30-2024 Evaluation + Plan note Associated Problem(s): Chronic pain syndrome Continue Percocet 5-3 25 every 8 hours as needed for severe pain. OARRS reviewed and consistent with treatment plan. CS MA is in place. Will see if we can find a palliative provider in the [place] area to better help manage her symptoms. [facility] 08-30-2024 Note Continue Percocet 5- 3 25 every 8 hours as needed for severe pain. OARRS reviewed and consistent with treatment plan. CS MA is in place. Will see if we can find a palliative provider in the [place] area to better help manage her symptoms. [facility] 08-30-2024 Miscellaneous Notes Associated Problem(s): Chronic pain syndrome Continue Percocet 5-3 25 every 8 hours as needed for severe pain. OARRS reviewed and consistent with treatment plan. CS MA is in place. Will see if we can find a palliative provider in the [place] area to better help manage her symptoms. Associated Problem(s): Chronic back pain Will treat for acute flareup with short burst of steroids. No red flags Associated Problem(s): Osteopetrosis Needs to get DEXA completed Associated Problem(s): Osteoporosis Needs to get her DEXA scan completed Associated Problem(s): Insomnia Symptoms well-controlled on Lunesta 3 mg nightly. Continue current medication. OARRS reviewed and consistent with treatment plan Associated Problem(s): Unsatisfactory cervical Papanicolaou smear Last Pap smear unsatisfactory. Due to patient's anatomy and scleroderma, provider was unable to use speculum and did not get a satisfactory she is low risk, no longer sexually active. No history of abnormal Pap smears. She has the option to discontinue her cervical cancer screenings or we can refer her to a power digger operator, patient states she will let us know what she decides to do documented in this encounter [facility] 08-30-2024 Miscellaneous Notes Associated Problem(s): Chronic pain syndrome Continue Percocet 5-3 25 every 8 hours as needed for severe pain. OARRS reviewed and consistent with treatment plan. CS MA is in place. Will see if we can find a palliative provider in the [place] area to better help manage her symptoms. Associated Problem(s): Chronic back pain Will treat for acute flareup with short burst of steroids. No red flags Associated Problem(s): Osteopetrosis Needs to get DEXA completed Associated Problem(s): Osteoporosis Needs to get her DEXA scan completed Associated Problem(s): Insomnia Symptoms well-controlled on Lunesta 3 mg nightly. Continue current medication. OARRS reviewed and consistent with treatment plan Associated Problem(s): Unsatisfactory cervical Papanicolaou smear Last Pap smear unsatisfactory. Due to patient's anatomy and scleroderma, provider was unable to use speculum and did not get a satisfactory she is low risk, no longer sexually active. No history of abnormal Pap smears. She has the option to discontinue her cervical cancer screenings or we can refer her to a power digger operator, patient states she will let us know what she decides to do documented in this encounter [facility] 08-30-2024 Evaluation + Plan note Associated Problem(s): Chronic back pain Will treat for acute flareup with short burst of steroids. No red flags [facility] 08-30-2024 Evaluation + Plan note Associated Problem(s): Osteopetrosis Needs to get DEXA completed [facility] 08-30-2024 Evaluation + Plan note Associated Problem(s): Osteoporosis Needs to get her DEXA scan completed [facility] 08-30-2024 Evaluation + Plan note Associated Problem(s): Insomnia Symptoms well-controlled on Lunesta 3 mg nightly. Continue current medication. OARRS reviewed and consistent with treatment plan [facility] 08-30-2024 Note Symptoms well-contro lled on Lunesta 3 mg nightly. Continue current medication. OARRS reviewed and consistent with treatment plan [facility] 08-30-2024 Evaluation + Plan note Associated Problem(s): Unsatisfactory cervical Papanicolaou smear Last Pap smear unsatisfactory. Due to patient's anatomy and scleroderma, provider was unable to use speculum and did not get a satisfactory she is low risk, no longer sexually active. No history of abnormal Pap smears. She has the option to discontinue her cervical cancer screenings or we can refer her to a power digger operator, patient states she will let us know what she decides to do [facility] 08-30-2024 History of Present illness Narrative Patient was identified by name and Date of . Health Maintenance Due Topic Colorectal Cancer Screening Diabetes Screening Lung Cancer Screening Bone Density Scan Mammogram Ultrasound-breast PapSmear Bone Density Patient was identified by name and date of . Left ear irrigation order placed and signed by provider. Irrigation completed. Patient tolerated Medium amount removed from Left ear. Provider went back in room and rechecked ears(s) after irrigation and no further flushing needed. Charged Images from the original note were not included. 08/30/2024 Paris Moncada (: 1970) is a 54 y.o. female , Established patient, here for evaluation of the following chief complaint(s): Medication Check ASSESSMENT/PLAN: 1. Chronic right-sided low back pain without sciatica Assessment & Plan: Will treat for acute flareup with short burst of steroids. No red flags Orders: - predniSONE (Deltasone) 20 MG tablet; Take 3 tabs (60mg) daily for 3 days, then take 2 tabs (40mg) daily for 3 days, then take 1 tab (20mg) daily for 3 days., Normal 2. Osteopetrosis Assessment & Plan: Needs to get DEXA completed Orders: - DEXA bone density axial skeleton 3. Osteoporosis, unspecified osteoporosis type, unspecified pathological fracture presence Assessment & Plan: Needs to get her DEXA scan completed Orders: - DEXA bone density axial skeleton 4. Insomnia, unspecified type Assessment & Plan: Symptoms well-controlled on Lunesta 3 mg nightly. Continue current medication. OARRS reviewed and consistent with treatment plan Orders: - eszopiclone (Lunesta) 3 MG tablet; Take 1 tablet (3 mg) by mouth Nightly as needed for sleep. Take immediately before bedtime, Starting Wed08/30/2024, Until Wed09/29/2024 at 2359, Normal 5. Unsatisfactory cervical Papanicolaou smear Assessment & Plan: Last Pap smear unsatisfactory. Due to patient's anatomy and scleroderma, provider was unable to use speculum and did not get a satisfactory she is low risk, no longer sexually active. No history of abnormal Pap smears. She has the option to discontinue her cervical cancer screenings or we can refer her to a power digger operator, patient states she will let us know what she decides to do 6. Chronic pain syndrome Assessment & Plan: Continue Percocet 5-3 25 every 8 hours as needed for severe pain. OARRS reviewed and consistent with treatment plan. CS MA is in place. Will see if we can find a palliative provider in the [place] area to better help manage her symptoms. Follow up in about 3 months (around 11/30/2024) for with primary care provider as scheduled. SUBJECTIVE/OBJECTIVE: HPI - Paris Moncada (: 1970) is a 54 y.o. female , Established patient, here for the evaluation of the following chief complaint(s): Medication Check Presents to follow-up on her chronic pain and insomnia. Reports her sleep is well-managed with the Lunesta 3 mg nightly. Reports her pain in her back shoulders and hips bothers her throughout the day. She is currently on Percocet 5-325 mg every 8 hours for pain. She also uses medical marijuana to help with IBS symptoms. She mostly uses the marijuana in the evening. She previously was on higher dosing of the Percocet several years ago and reports she felt it was more helpful. We have tried to get her into pain management but that has not been successful due to her concurrent use of medical marijuana. We attempted to wean down on the Lunesta but she did not tolerate. She does see orthopedic and gets steroid injections in her right shoulder. 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 She would like to see if a palliative care provider would be able to help manage her symptoms better. Reports right now her right lower back is flared up and has increased pain with movement. Denies any radiation down the legs and no change in bowel or bladder. Current Medications[1] Review of Systems Constitutional: Negative for activity change and fatigue. HENT: Negative. Respiratory: Negative. Gastrointestinal: Positive for constipation (comes and goes). Negative for abdominal pain, blood in stool, diarrhea, nausea and vomiting. Genitourinary: Negative for difficulty urinating. Musculoskeletal: Positive for arthralgias and gait problem. Psychiatric/Behavioral: Negative. Vitals: 08/30/24 1533 08/30/24 1614 BP: (!) 141/83 129/78 Pulse: 97 97 Resp: 24 Temp: 37.2 C (98.9 F) TempSrc: Infrared SpO2: 97% Weight: 99 lb (44.9 kg) Physical Exam Constitutional: General: She is [...] ankle and foot deformity with atrophy) present. Right lower leg: No edema. Left lower leg: No edema. Comments: Mild scoliosis noted Lymphadenopathy: Cervical: No cervical adenopathy. Neurological: Mental Status: She is alert and oriented to person, place, and time. Psychiatric: Mood and Affect: Mood normal. Behavior: Behavior normal. Thought Content: Thought content normal. Judgment: Judgment normal. An electronic signature was used to authenticate this note. Britta Trinidad, KATHERINE - EMPLOYEE HEALTH NURSE 08/30/2024 7:55 PM [1] Current Outpatient Medications Medication Sig Dispense Refill amitriptyline (Elavil) 50 MG tablet TAKE 1 TABLET BY MOUTH NIGHTLY 90 tablet 1 amLODIPine (Norvasc) 5 MG tablet TAKE 1 TABLET BY MOUTH EVERY DAY 90 tablet 1 atorvastatin (Lipitor) 20 MG tablet TAKE 1 TABLET BY MOUTH EVERY DAY IN THE EVENING 90 tablet 1 choline fenofibrate (Trilipix) [address] capsule Take by mouth. dexlansoprazole (Dexilant) [address] capsule Take 1 capsule (60 mg) by mouth daily. 90 capsule 1 nystatin (Mycostatin) 042971 UNIT/GM powder Apply topically 3 times daily. 60 g 1 oxyCODONE-acetaminophen (Percocet) 5-325 MG tablet Take 1 tablet by mouth every 8 hours as needed for severe pain (7-10). 90 tablet 0 tiZANidine (Zanaflex) 4 MG tablet Take 1 tablet at bedtime as needed for muscle spasms 90 tablet 1 clindamycin (Cleocin T) 1 % gel (Twice-Daily) Apply to affected area daily (Patient not taking: Reported on 08/30/2024) 60 g 11 eszopiclone (Lunesta) 3 MG tablet Take 1 tablet (3 mg) by mouth Nightly as needed for sleep. Take immediately before bedtime 30 tablet 0 naloxone (Narcan) 4 mg/0.1 mL nasal spray ADMINISTER A SINGLE spray INTO ONE NOSTRIL repeat in 3 MINUTES IF... (REFER TO PRESCRIPTION NOTES). (Patient not taking: Reported on 08/30/2024) predniSONE (Deltasone) 20 MG tablet Take 3 tabs (60mg) daily for 3 days, then take 2 tabs (40mg) daily for 3 days, then take 1 tab (20mg) daily for 3 days. 18 tablet 0 No current facility-administered medications for this visit. documented in this encounter [facility] [employer] 08-30-2024 History of Present illness Narrative Patient was identified by name and Date of . Health Maintenance Due Topic Colorectal Cancer Screening Diabetes Screening Lung Cancer Screening Bone Density Scan Mammogram Ultrasound-breast PapSmear Bone Density Patient was identified by name and date of . Left ear irrigation order placed and signed by provider. Irrigation completed. Patient tolerated Medium amount removed from Left ear. Provider went back in room and rechecked ears(s) after irrigation and no further flushing needed. Charged Images from the original note were not included. 08/30/2024 Paris Moncada (: 1970) is a 54 y.o. female , Established patient, here for evaluation of the following chief complaint(s): Medication Check ASSESSMENT/PLAN: 1. Chronic right-sided low back pain without sciatica Assessment & Plan: Will treat for acute flareup with short burst of steroids. No red flags Orders: - predniSONE (Deltasone) 20 MG tablet; Take 3 tabs (60mg) daily for 3 days, then take 2 tabs (40mg) daily for 3 days, then take 1 tab (20mg) daily for 3 days., Normal 2. Osteopetrosis Assessment & Plan: Needs to get DEXA completed Orders: - DEXA bone density axial skeleton 3. Osteoporosis, unspecified osteoporosis type, unspecified pathological fracture presence Assessment & Plan: Needs to get her DEXA scan completed Orders: - DEXA bone density axial skeleton 4. Insomnia, unspecified type Assessment & Plan: Symptoms well-controlled on Lunesta 3 mg nightly. Continue current medication. OARRS reviewed and consistent with treatment plan Orders: - eszopiclone (Lunesta) 3 MG tablet; Take 1 tablet (3 mg) by mouth Nightly as needed for sleep. Take immediately before bedtime, Starting Wed08/30/2024, Until Wed09/29/2024 at 2359, Normal 5. Unsatisfactory cervical Papanicolaou smear Assessment & Plan: Last Pap smear unsatisfactory. Due to patient's anatomy and scleroderma, provider was unable to use speculum and did not get a satisfactory she is low risk, no longer sexually active. No history of abnormal Pap smears. She has the option to discontinue her cervical cancer screenings or we can refer her to a power digger operator, patient states she will let us know what she decides to do 6. Chronic pain syndrome Assessment & Plan: Continue Percocet 5-3 25 every 8 hours as needed for severe pain. OARRS reviewed and consistent with treatment plan. MA is in place. Will see if we can find a palliative provider in the [place] area to better help manage her symptoms. 7. Impacted cerumen of left ear Moderate amt of cerumen removed with irrigation. TM intact. Patient tolerated procedure well. Follow up in about 3 months (around 11/30/2024) for with primary care provider as scheduled. SUBJECTIVE/OBJECTIVE: BRADFORD Moncada (: 1970) is a 54 y.o. female , Established patient, here for the evaluation of the following chief complaint(s): Medication Check Presents to follow-up on her chronic pain and insomnia. Reports her sleep is well-managed with the Lunesta 3 mg nightly. Reports her pain in her back shoulders and hips bothers her throughout the day. She is currently on Percocet 5-325 mg every 8 hours for pain. She also uses medical marijuana to help with IBS symptoms. She mostly uses the marijuana in the evening. She previously was on higher dosing of the Percocet several years ago and reports she felt it was more helpful. We have tried to get her into pain management but that has not been successful due to her concurrent use of medical marijuana. We attempted to wean down on the Lunesta but she did not tolerate. She does see orthopedic and gets steroid injections in her right shoulder. 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 She would like to see if a palliative care provider would be able to help manage her symptoms better. Reports right now her right lower back is flared up and has increased pain with movement. Denies any radiation down the legs and no change in bowel or bladder. Left ear- reports using debrox in it and getting some wax out but still feels like there is some in there. Right ear is fine Current Medications[1] Review of Systems Constitutional: Negative for activity change and fatigue. HENT: Negative. Respiratory: Negative. Gastrointestinal: Positive for constipation (comes and goes). Negative for abdominal pain, blood in stool, diarrhea, nausea and vomiting. Genitourinary: Negative for difficulty urinating. Musculoskeletal: Positive for arthralgias and gait problem. Psychiatric/Behavioral: Negative. Vitals: 08/30/24 1533 08/30/24 1614 BP: (!) 141/83 129/78 Pulse: 97 97 Resp: 24 Temp: 37.2 C (98.9 F) TempSrc: Infrared SpO2: 97% Weight: 99 lb (44.9 kg) Physical Exam Constitutional: General: She is not in acute distress. Appearance: She is not ill-appearing. HENT: Head: Normocephalic. Right Ear: Tympanic membrane normal. Left Ear: No drainage. There is impacted cerumen. No mastoid tenderness. Ears: Comments: Moderate amt of cerumen in the left canal. Partially occluded. Nose: No congestion or rhinorrhea. Mouth/Throat: Mouth: [...] ankle and foot deformity with atrophy) present. Right lower leg: No edema. Left lower leg: No edema. Comments: Mild scoliosis noted Lymphadenopathy: Cervical: No cervical adenopathy. Neurological: Mental Status: She is alert and oriented to person, place, and time. Psychiatric: Mood and Affect: Mood normal. Behavior: Behavior normal. Thought Content: Thought content normal. Judgment: Judgment normal. An electronic signature was used to authenticate this note. Britta Trinidad, KATHERINE - EMPLOYEE HEALTH NURSE 09/01/2024 7:41 AM [1] Current Outpatient Medications Medication Sig Dispense Refill amitriptyline (Elavil) 50 MG tablet TAKE 1 TABLET BY MOUTH NIGHTLY 90 tablet 1 amLODIPine (Norvasc) 5 MG tablet TAKE 1 TABLET BY MOUTH EVERY DAY 90 tablet 1 atorvastatin (Lipitor) 20 MG tablet TAKE 1 TABLET BY MOUTH EVERY DAY IN THE EVENING 90 tablet 1 choline fenofibrate (Trilipix) [address] capsule Take by mouth. dexlansoprazole (Dexilant) [address] capsule Take 1 capsule (60 mg) by mouth daily. 90 capsule 1 nystatin (Mycostatin) 907338 UNIT/GM powder Apply topically 3 times daily. 60 g 1 oxyCODONE-acetaminophen (Percocet) 5-325 MG tablet Take 1 tablet by mouth every 8 hours as needed for severe pain (7-10). 90 tablet 0 tiZANidine (Zanaflex) 4 MG tablet Take 1 tablet at bedtime as needed for muscle spasms 90 tablet 1 clindamycin (Cleocin T) 1 % gel (Twice-Daily) Apply to affected area daily (Patient not taking: Reported on 08/30/2024) 60 g 11 eszopiclone (Lunesta) 3 MG tablet Take 1 tablet (3 mg) by mouth Nightly as needed for sleep. Take immediately before bedtime 30 tablet 0 naloxone (Narcan) 4 mg/0.1 mL nasal spray ADMINISTER A SINGLE spray INTO ONE NOSTRIL repeat in 3 MINUTES IF... (REFER TO PRESCRIPTION NOTES). (Patient not taking: Reported on 08/30/2024) predniSONE (Deltasone) 20 MG tablet Take 3 tabs (60mg) daily for 3 days, then take 2 tabs (40mg) daily for 3 days, then take 1 tab (20mg) daily for 3 days. 18 tablet 0 No current facility-administered medications for this visit. documented in this encounter [facility] 08-10-2024 Telephone encounter Note Reviewed chart. Refill appropriate. RX sent. [facility] 08-10-2024 Miscellaneous Notes Reviewed chart. Refill appropriate. RX sent. Images from the original note were not included. Prescription Request: oxyCODONE-acetaminophen (Percocet) 5-325 MG tablet Last medication check: 07/28/23 Last physical exam: 03/14/24 Next scheduled appointment: 08/30/24 CSA on file (date): 06/13/24 Urine drug screen - 05/31/24 Last date of refill on this medication 07/13/24 ( qty 90 refill 0) documented in this encounter [facility] 08-10-2024 Telephone encounter Note Images from the original note were not included. Prescription Request: oxyCODONE-acetaminophen (Percocet) 5-325 MG tablet Last medication check: 07/28/23 Last physical exam: 03/14/24 Next scheduled appointment: 08/30/24 CSA on file (date): 06/13/24 Urine drug screen - 05/31/24 Last date of refill on this medication 07/13/24 ( qty 90 refill 0) [facility] 08-02-2024 Telephone encounter Note Reviewed chart. Refill appropriate. RX sent. [facility] 08-02-2024 Miscellaneous Notes Reviewed chart. Refill appropriate. RX sent. Prescription Request: Last medication check: 08/12/23 Last physical exam: 03/14/24 Next scheduled appointment: 08/30/24 Csa 01/11/24 Uds 05/31/24 Last date of refill on this medication 07/06/2529 and no refill documented in this encounter [facility] 08-02-2024 Telephone encounter Note Reviewed chart. Refill appropriate. RX sent. [facility] 08-02-2024 Miscellaneous Notes Reviewed chart. Refill appropriate. RX sent. Prescription Request: AMLODIPINE BESYLATE 5 MG TAB Last medication check: 11/03/23 Last physical exam: 03/14/24 Next scheduled appointment: 08/30/24 Last date of refill on this medication 11/03/23 ( Qty 90 refill 1) documented in this encounter [facility] 08-02-2024 Telephone encounter Note Prescription Request: AMLODIPINE BESYLATE 5 MG TAB Last medication check: 11/03/23 Last physical exam: 03/14/24 Next scheduled appointment: 08/30/24 Last date of refill on this medication 11/03/23 ( Qty 90 refill 1) [facility] 08-02-2024 Telephone encounter Note Prescription Request: Last medication check: 08/12/23 Last physical exam: 03/14/24 Next scheduled appointment: 08/30/24 Csa 01/11/24 Uds 05/31/24 Last date of refill on this medication 07/06/2529 and no refill [facility] 07-13-2024 Telephone encounter Note Reviewed chart. Refill appropriate. RX sent. [facility] 07-13-2024 Miscellaneous Notes Reviewed chart. Refill appropriate. RX sent. Prescription Request: oxyCODONE-acetaminophen (Percocet) 5-325 MG tablet Last medication check: 07/28/23 Last physical exam: 03/14/24 Next scheduled appointment: 08/30/24 CSA on file (date): 06/13/24 Last date of refill on this medication 06/13/24 ( qty 90 refill 0) documented in this encounter [facility] 07-13-2024 Telephone encounter Note Prescription Request: oxyCODONE-acetaminophen (Percocet) 5-325 MG tablet Last medication check: 07/28/23 Last physical exam: 03/14/24 Next scheduled appointment: 08/30/24 CSA on file (date): 06/13/24 Last date of refill on this medication 06/13/24 ( qty 90 refill 0) [facility] 06-13-2024 Note Reviewed chart. Refi ll appropriate. Rx sent. Oarrs reviewed and consistent with treatment plan. Csma in place [facility] 06-13-2024 Telephone encounter Note Reviewed chart. Refill appropriate. Rx sent. Oarrs reviewed and consistent with treatment plan. Csma in place [facility] 06-13-2024 Miscellaneous Notes Reviewed chart. Refill appropriate. Rx sent. Oarrs reviewed and consistent with treatment plan. Csma in place Prescription Request: oxyCODONE-acetaminophen (Percocet) 5-325 MG tablet Last medication check: 05/31/24 Last physical exam: 03/14/24 Next scheduled appointment: 08/30/24 CSA on file (date): 12/10/23 Last date of refill on this medication 05/17/24 ( qty 90 refill 0) documented in this encounter [facility] 06-13-2024 Telephone encounter Note Prescription Request: oxyCODONE-acetaminophen (Percocet) 5-325 MG tablet Last medication check: 05/31/24 Last physical exam: 03/14/24 Next scheduled appointment: 08/30/24 CSA on file (date): 12/10/23 Last date of refill on this medication 05/17/24 ( qty 90 refill 0) [facility] 2024 Telephone encounter Note Reviewed chart. Refill appropriate. RX sent. [facility] 2024 Miscellaneous Notes Reviewed chart. Refill appropriate. RX sent. Reviewed chart. Refill appropriate. RX sent. CSA - Lunesta 01/11/24 05/31/2024 Drug Screen completed Patient is out of medication. Medication name: eszopiclone (Lunesta) 3 MG tablet Medication dosage: 3 MG tablet Monthly quantity needed: 30 How many day supply requestin days Medication route: oral (PO) Medication administration time(s): Nightly If taking medication PRN, reason for taking medication: Sleep If this is a controlled substance do you receive this or any other controlled medication from any other doctor or facility: no Ordering provider: Paris Solorzano Date of last office visit: 05/31/24 Date of next office visit: 08/30/24 Date of last refill: (see medication tab): 05/08/24 Updated/Validated preferred pharmacy: Yes Patient instructed to contact the pharmacy prior to picking up the medication: Yes documented in this encounter [facility] 2024 Telephone encounter Note Reviewed chart. Refill appropriate. RX sent. [facility] 2024 Telephone encounter Note CSA - Lunestmanuel 01/11/24 05/31/2024 Drug Screen completed [facility] 2024 Telephone encounter Note Patient is out of medication. Medication name: eszopiclone (Lunesta) 3 MG tablet Medication dosage: 3 MG tablet Monthly quantity needed: 30 How many day supply requestin days Medication route: oral (PO) Medication administration time(s): Nightly If taking medication PRN, reason for taking medication: Sleep If this is a controlled substance do you receive this or any other controlled medication from any other doctor or facility: no Ordering provider: Paris Solorzano Date of last office visit: 05/31/24 Date of next office visit: 08/30/24 Date of last refill: (see medication tab): 05/08/24 Updated/Validated preferred pharmacy: Yes Patient instructed to contact the pharmacy prior to picking up the medication: Yes [facility] 05-31-2024 Evaluation + Plan note Associated Problem(s): Insomnia Symptoms well-controlled on Lunesta 3 mg nightly. Continue current medication. [facility] 05-31-2024 Evaluation + Plan note Associated Problem(s): Uncomplicated opioid dependence (HCC) Continue Percocet 5-325 mg every 8 hours as needed for severe pain. OARRS reviewed and consistent with treatment plan JESSE HUDSON is in place [facility] 05-31-2024 Note Continue Percocet 5- 325 mg every 8 hours as needed for severe pain. OARRS reviewed and consistent with treatment plan JESSE HUDSON is in place [facility] 05-31-2024 Evaluation + Plan note Associated Problem(s): Systemic sclerosis (HCC) Stable. Has been evaluated by Dr. Benson rheumatology. Stable condition no rheumatological interventions indicated [facility] 05-31-2024 Miscellaneous Notes Associated Problem(s): Insomnia Symptoms well-controlled on Lunesta 3 mg nightly. Continue current medication. Associated Problem(s): Uncomplicated opioid dependence (HCC) Continue Percocet 5-325 mg every 8 hours as needed for severe pain. OARRS reviewed and consistent with treatment plan JESSE HUDSON is in place Associated Problem(s): Systemic sclerosis (HCC) Stable. Has been evaluated by Dr. Benson rheumatology. Stable condition no rheumatological interventions indicated Associated Problem(s): Chronic pain syndrome Continue Percocet 5-3 25 every 8 hours as needed for severe pain. OARRS reviewed and consistent with treatment plan. JESSE HUDSON is in place. Associated Problem(s): Hidradenitis No active lesions. Will start topical antibiotic daily to affected areas. documented in this encounter [facility] 05-31-2024 Evaluation + Plan note Associated Problem(s): Chronic pain syndrome Continue Percocet 5-3 25 every 8 hours as needed for severe pain. OARRS reviewed and consistent with treatment plan. JESSE HUDSON is in place. [facility] 05-31-2024 Note Continue Percocet 5- 3 25 every 8 hours as needed for severe pain. OARRS reviewed and consistent with treatment plan. CS MA is in place. [facility] 05-31-2024 Evaluation + Plan note Associated Problem(s): Hidradenitis No active lesions. Will start topical antibiotic daily to affected areas. [facility] 05-31-2024 History of Present illness Narrative Patient was identified by name and Date of . Health Maintenance Due Topic Colorectal Cancer Screening-REFERRAL PRINTED Diabetes Screening-DONE AT [facility] 2-3 MONTHS-WILL FAX KATHRIN Cervical Cancer Screening-TODAY Lung Cancer Screening-PENDED Bone Density Scan-ORDERS ALREADY IN Mammogram-ORDERS ALREADY IN Depression Monitoring-COMPLETED Patient identified by name and date of . Urine drug screen collected. Specimen cup labeled with patient name and date of . Urine cup given to patient, advised patient to not flush toilet or wash hands prior to handing cup out to me. Urine collected from patient. Urine drug screen ordered and signed by provider. Urine Drug screen results entered and were sent to provider. Images from the original note were not included. 05/31/2024 Paris Moncada (: 1970) is a 53 y.o. female , Established patient, here for evaluation of the following chief complaint(s): Gynecologic Exam ASSESSMENT/PLAN: 1. Chronic pain syndrome Assessment & Plan: Continue Percocet 5-3 25 every 8 hours as needed for severe pain. OARRS reviewed and consistent with treatment plan. CS MA is in place. Orders: - AMB POC DRUG SCREEN 12, [facility] 2. Screening for cervical cancer - Pap Smear 3. Hidradenitis Assessment & Plan: No active lesions. Will start topical antibiotic daily to affected areas. Orders: - clindamycin (Cleocin T) 1 % gel (Twice-Daily); Apply to affected area daily, Normal 4. Systemic sclerosis (HCC) Assessment & Plan: Stable. Has been evaluated by Dr. Benson rheumatology. Stable condition no rheumatological interventions indicated 5. Uncomplicated opioid dependence (HCC) Assessment & Plan: Continue Percocet 5-325 mg every 8 hours as needed for severe pain. OARRS reviewed and consistent with treatment plan CS MA is in place 6. Primary insomnia Assessment & Plan: Symptoms well-controlled on Lunesta 3 mg nightly. Continue current medication. Follow up for 3 month [facility]. SUBJECTIVE/OBJECTIVE: BRADFORD Moncada (: 1970) is a 53 y.o. female , Established patient, here for the evaluation of the following chief complaint(s): Gynecologic Exam Patient presents for her 3-month med check for chronic pain and for her gynecological exam. She has already had her annual physical with fasting labs completed earlier this year. She states she had her labs completed at [facility] and we will need to request those results as they did not send them to us. She still needs to schedule her mammography and ultrasound screening for breast cancer. Also her DEXA scan. She reports her chronic pain is poorly controlled. We have continued on her Percocet 5 mg 3 times a day, she uses medical marijuana in the evenings to help with her IBS symptoms and pain. She is on amitriptyline 50 mg at bedtime, also takes Ambien for insomnia. She has been on the current doses of medications for several years. Has been unsuccessful with establishing with another pain management provider. Patient is aware of increased sedation and increased risk for respiratory failure with concurrent use of current medications. Current Outpatient Medications Medication Sig Dispense Refill amitriptyline (Elavil) 50 MG tablet TAKE 1 TABLET BY MOUTH NIGHTLY 90 tablet 1 amLODIPine (Norvasc) 5 MG tablet Take 1 tablet (5 mg) by mouth daily. 90 tablet 1 atorvastatin (Lipitor) 20 MG tablet TAKE 1 TABLET BY MOUTH EVERY DAY IN THE EVENING 90 tablet 1 choline fenofibrate (Trilipix) [address] capsule Take by mouth. dexlansoprazole (Dexilant) [address] capsule Take 1 capsule (60 mg) by mouth daily. 90 capsule 1 eszopiclone (Lunesta) 3 MG tablet Take 1 tablet (3 mg) by mouth Nightly as needed for sleep. Take immediately before bedtime 30 tablet 0 naloxone (Narcan) 4 mg/0.1 mL nasal spray ADMINISTER A SINGLE spray INTO ONE NOSTRIL repeat in 3 MINUTES IF... (REFER TO PRESCRIPTION NOTES). nystatin (Mycostatin) 980522 UNIT/GM powder Apply topically 3 times daily. 60 g 1 oxyCODONE-acetaminophen (Percocet) 5-325 MG tablet Take 1 tablet by mouth every 8 hours as needed for severe pain (7-10). Do not start before May 17, 2024. 90 tablet 0 tiZANidine (Zanaflex) 4 MG tablet Take 1 tablet at bedtime as needed for muscle spasms 90 tablet 1 clindamycin (Cleocin T) 1 % gel (Twice-Daily) Apply to affected area daily 60 g 11 No current facility-administered medications for this visit. Review of Systems Constitutional: Negative. Negative for activity change, chills, fatigue and fever. HENT: Negative. Respiratory: Negative. Cardiovascular: Negative. Gastrointestinal: Negative for abdominal pain, blood in stool, nausea and vomiting. Alternates between constipaton and loose stools- IBS Genitourinary: Negative for difficulty urinating. Musculoskeletal: Positive for back pain and gait problem. Skin: Skin issues under the right axilla and under the breast Neurological: Negative for dizziness and light-headedness. Psychiatric/Behavioral: Negative for agitation, dysphoric mood, self-injury, sleep disturbance and suicidal ideas. The patient is not nervous/anxious. Vitals: 05/31/24 1519 05/31/24 1603 BP: (!) 150/83 135/78 Pulse: 98 98 Resp: 18 Temp: 36.8 C (98.3 F) TempSrc: Infrared SpO2: 97% Weight: 100 lb 9.6 oz (45.6 kg) Physical Exam Constitutional: General: She is [...] Comments: Decreased breath sounds left lung mariano Chest: Chest wall: Deformity present. Breasts: Nate Score is 5. Breasts are asymmetrical. Right: Normal. Left: No skin change or tenderness. Comments: Left breast tissue is very dense and smaller than the right, this is secondary to patient's linear scleroderma Abdominal: General: Bowel sounds are normal. Palpations: Abdomen is soft. There is no mass. Tenderness: There is no abdominal tenderness. Hernia: There is no hernia in the left inguinal area or right inguinal area. Genitourinary: Pubic Area: No rash. Comments: Vaginal atrophy noted. Unable to place speculum d/t vaginal opening very small. Blind swab obtained for pap. Internal exam very limited with single digit manual exam. Musculoskeletal: General: Deformity (Left upper extremity, left torso and left lower extremity deformity, right ankle and foot deformity with atrophy) present. Comments: Mild scoliosis noted Lymphadenopathy: Cervical: No cervical adenopathy. Upper Body: Right upper body: No supraclavicular, axillary or pectoral adenopathy. Left upper body: No supraclavicular, axillary or pectoral adenopathy. Skin: Comments: Noted scarring in right axilla from previous boils, several small erythematous areas noted. No draining lesions, has 1 small boil less than 0.5 cm under the right breast. Firm, nontender, nondraining Neurological: Mental Status: She is alert and oriented to person, place, and time. Psychiatric: Mood and Affect: Mood normal. Behavior: Behavior normal. Thought Content: Thought content normal. Judgment: Judgment normal. An electronic signature was used to authenticate this note. KATHERINE Bergman CNP 05/31/2024 5:02 PM documented in this encounter [facility] 05-15-2024 Telephone encounter Note Prescription Request: Last medication check: 03/14/24 Last physical exam: 03/04/23 Next scheduled appointment: 05/31/24 CSA on file (date): 01/12/24 Last urine drug screen: 02/03/23 Last date of refill on this medication 04/17/24 [facility] 05-15-2024 Miscellaneous Notes Prescription Request: Last medication check: 03/14/24 Last physical exam: 03/04/23 Next scheduled appointment: 05/31/24 CSA on file (date): 01/12/24 Last urine drug screen: 02/03/23 Last date of refill on this medication 04/17/24 documented in this encounter [facility] 05-08-2024 Telephone encounter Note Reviewed chart. Refill appropriate. RX sent. [facility] 05-08-2024 Miscellaneous Notes Reviewed chart. Refill appropriate. RX sent. CSA - Lunesta 01/11/24 Patient is out. Medication name: eszopiclone (Lunesta) 3 MG tablet [[id number]] Medication dosage: 3 mg (Miligrams Monthly quantity needed: 30 How many day supply requestin days Medication route: oral (PO) Medication administration time(s): bedtime (HS) If taking medication PRN, reason for taking medication: N/A If this is a controlled substance do you receive this or any other controlled medication from any other doctor or facility: No Ordering provider: Dr. Goodman Date of last office visit: 03.14.24 Date of next office visit: 05.31.24 Date of last refill: (see medication tab): 04.05.24 Updated/Validated preferred pharmacy: Yes [facility]/pharmacy #[id number] [address] DEAN #: [id number] Patient instructed to contact the pharmacy prior to picking up the medication: Yes documented in this encounter [facility] 05-08-2024 Telephone encounter Note CSA - Lunesta 01/11/24 [facility] 05-08-2024 Telephone encounter Note Patient is out. Medication name: eszopiclone (Lunesta) 3 MG tablet [[id number]] Medication dosage: 3 mg (Miligrams Monthly quantity needed: 30 How many day supply requestin days Medication route: oral (PO) Medication administration time(s): bedtime (HS) If taking medication PRN, reason for taking medication: N/A If this is a controlled substance do you receive this or any other controlled medication from any other doctor or facility: No Ordering provider: Dr. Goodman Date of last office visit: 03.14.24 Date of next office visit: 05.31.24 Date of last refill: (see medication tab): 04.05.24 Updated/Validated preferred pharmacy: Yes [facility]/pharmacy #[id number] - [place] [id number] DEAN #: [id number] Patient instructed to contact the pharmacy prior to picking up the medication: Yes [facility] 04-27-2024 Telephone encounter Note Noted. Agree with disposition. [facility] 04-27-2024 Miscellaneous Notes Noted. Agree with disposition. S: Patient spoke with [facility] nurse regarding boil under right arm, green pus B: Onset of symptoms/concern A: Has been getting boils under arms, went to ED lastnight for one under right, left without being seen due to wait, boil popped today, drained green pus, not under bad arm, has had staph before, would like to know if antibiotics could be called in. Denies: fever, R: Advised if patient's boil is draining green pus, she should be seen tonight, and could be evaluated at Urgent care. Advised office is closed currently and no appointments available in office tomorrow. Patient understands care advice. No further needs at this time. Patient instructed to call back with new or worsening symptoms. Reason for Disposition Spreading redness around the boil and no fever Protocols used: Boil (Skin Abscess)-ADULT-[place] documented in this encounter [facility] 04-27-2024 Telephone encounter Note S: Patient spoke with [facility] nurse regarding boil under right arm, green pus B: Onset of symptoms/concern A: Has been getting boils under arms, went to ED lastnight for one under right, left without being seen due to wait, boil popped today, drained green pus, not under bad arm, has had staph before, would like to know if antibiotics could be called in. Denies: fever, R: Advised if patient's boil is draining green pus, she should be seen tonight, and could be evaluated at Urgent care. Advised office is closed currently and no appointments available in office tomorrow. Patient understands care advice. No further needs at this time. Patient instructed to call back with new or worsening symptoms. Reason for Disposition Spreading redness around the boil and no fever Protocols used: Boil (Skin Abscess)-ADULT-[place] [facility] 04-14-2024 Telephone encounter Note Reviewed chart. Refill appropriate. RX sent. [facility] 04-14-2024 Miscellaneous Notes Reviewed chart. Refill appropriate. RX sent. Prescription Request: Last medication check: 01-11-24 Last physical exam: 03-14-24 Next scheduled appointment: 04-10-24 Last date of refill on this medication 12/23/23 documented in this encounter [facility] 04-14-2024 Telephone encounter Note Prescription Request: Last medication check: 01-11-24 Last physical exam: 03-14-24 Next scheduled appointment: 04-10-24 Last date of refill on this medication 12/23/23 [facility] 04-11-2024 Note OARRS reviewed and c onsistent with treatment plan. First fill April 17, 2024. Rx sent [facility] 04-11-2024 Telephone encounter Note OARRS reviewed and consistent with treatment plan. First fill April 17, 2024. Rx sent [facility] 04-11-2024 Miscellaneous Notes OARRS reviewed and consistent with treatment plan. First fill April 17, 2024. Rx sent [facility] 12/09/23 Medication name: oxyCODONE-acetaminophen (Percocet) 5-325 MG tablet Medication dosage: 5-325 mg (Miligrams Monthly quantity needed: 30 How many day supply requestin days Medication route: oral (PO) Medication administration time(s): every 8 hours If taking medication PRN, reason for taking medication: Severe pain 7-10 If this is a controlled substance do you receive this or any other controlled medication from any other doctor or facility: No Ordering provider: Britta Trinidad Date of last office visit: 03.14.24 Date of next office visit: 05.31.24 Date of last refill: (see medication tab): 2 Updated/Validated preferred pharmacy: Yes Patient instructed to contact the pharmacy prior to picking up the medication: No documented in this encounter [facility] 04-10-2024 Telephone encounter Note CSA 12/09/23 [facility] 04-10-2024 Telephone encounter Note Medication name: oxyCODONE-acetaminophen (Percocet) 5-325 MG tablet Medication dosage: 5-325 mg (Miligrams Monthly quantity needed: 30 How many day supply requestin days Medication route: oral (PO) Medication administration time(s): every 8 hours If taking medication PRN, reason for taking medication: Severe pain 7-10 If this is a controlled substance do you receive this or any other controlled medication from any other doctor or facility: No Ordering provider: Britta Trinidad Date of last office visit: 03.14.24 Date of next office visit: 05.31.24 Date of last refill: (see medication tab): 03.18.24 Updated/Validated preferred pharmacy: Yes Patient instructed to contact the pharmacy prior to picking up the medication: No [facility] [employer] 04-05-2024 Telephone encounter Note Reviewed chart. Refill appropriate. RX sent. [facility] 04-05-2024 Miscellaneous Notes Reviewed chart. Refill appropriate. RX sent. Prescription Request: Last medication check: 01-11-24 Last physical exam: 03-14-24 Next scheduled appointment: 04-10-24 CSA on file (date): 01-11-24 Last urine drug screen: 02-03-23 Last date of refill on this medication 03-04-24 documented in this encounter [facility] 04-05-2024 Telephone encounter Note Prescription Request: Last medication check: 01-11-24 Last physical exam: 03-14-24 Next scheduled appointment: 04-10-24 CSA on file (date): 01-11-24 Last urine drug screen: 02-03-23 Last date of refill on this medication 03-04-24 [facility] 04-04-2024 Telephone encounter Note Reviewed chart. Refill appropriate. RX sent. [facility] 04-04-2024 Miscellaneous Notes Reviewed chart. Refill appropriate. RX sent. Prescription Request: Last medication check: 01/11/24 Last physical exam: 03/14/24 Next scheduled appointment: 04/10/24 Last date of refill on this medication: 09/08/23 documented in this encounter [facility] 04-04-2024 Telephone encounter Note Prescription Request: Last medication check: 01/11/24 Last physical exam: 03/14/24 Next scheduled appointment: 04/10/24 Last date of refill on this medication: 09/08/23 [facility] 04-01-2024 Note . MICRO - Microbiology PROCEDURE: Urine Culture [O1 *1] SOURCE: Urine BODY SITE: COLLECTED DATE/TIME: 03/31/2024 09:42 EST RECEIVED DATE/TIME: 03/31/2024 18:56 EST START DATE/TIME: 03/31/2024 18:56 EST FREE TEXT SOURCE: FINAL REPORTS Final Report [] Verified Date/Time/Personnel: 04/01/2024 14:24 EST 50,000 - 100,000 cfu/ml Multiple bacterial morphotypes present. Probable Contamination. Suggest recollection if clinically indicated. Order Comments O1: Urine Culture Added by Discern Performing Locations *1: This test was performed at: [facility], [address] [place] [address], [id number] , [facility] 03-31-2024 Evaluation + Plan note Diagnostic Tests PendingUrine Culture 03/31/24 [facility] 03-23-2024 Telephone encounter Note (2nd attempt) Called today to schedule screening colonoscopy (surveillance program) Left message to call the screening program at [phone] 1st attempt my chart message sent. [employer] [employer] [employer] 03-23-2024 Miscellaneous Notes (2nd attempt) Called today to schedule screening colonoscopy (surveillance program) Left message to call the screening program at [phone] 1st attempt my chart message sent. MyChart message sent to have patient call screening program if still interested in scheduling a screening colonoscopy. documented in this encounter [facility] 03-17-2024 Telephone encounter Note MyChart message sent to have patient call screening program if still interested in scheduling a screening colonoscopy. [facility] 03-14-2024 Evaluation + Plan note Associated Problem(s): Irritable bowel syndrome Stable. Referral made to gastroenterology, patient due for colon cancer screening [facility] 03-14-2024 Note Stable. Referral mad e to gastroenterology, patient due for colon cancer screening [facility] 03-14-2024 Evaluation + Plan note Associated Problem(s): Insomnia Symptoms well-controlled on Lunesta 3 mg nightly. Continue current medication. [facility] 03-14-2024 Miscellaneous Notes Associated Problem(s): Irritable bowel syndrome Stable. Referral made to gastroenterology, patient due for colon cancer screening Associated Problem(s): Insomnia Symptoms well-controlled on Lunesta 3 mg nightly. Continue current medication. Associated Problem(s): Linear scleroderma Condition stable. Associated Problem(s): Chronic back pain Stable. Continue current medications. Associated Problem(s): Osteopetrosis Obtain labs previously ordered by osteoporosis clinic Associated Problem(s): Hypercholesterolemia Controlled. Continue atorvastatin 20 mg nightly Associated Problem(s): Hypertension Controlled. Blood pressure 133/79. Continue amlodipine 5 mg daily Associated Problem(s): Systemic sclerosis (HCC) Stable. Has been evaluated by Dr. Benson rheumatology. Stable condition no rheumatological interventions indicated Associated Problem(s): Vitamin D deficiency History of vitamin D deficiency, check vitamin D level Associated Problem(s): Chronic pain syndrome Continue Percocet 5-3 25 every 8 hours as needed for severe pain. OARRS reviewed and consistent with treatment plan. JESSE HUDSON is in place. Patient is currently trying to get established with [facility] pain management and is waiting for their reply after sending in their forms about 3 weeks ago. Associated Problem(s): Uncomplicated opioid dependence (HCC) Continue Percocet 5-325 mg every 8 hours as needed for severe pain. OARRS reviewed and consistent with treatment plan JESSE HUDSON is in place Associated Problem(s): Abnormal mammography Due to her linear scleroderma, needs to have ultrasound of the left breast for breast cancer screening. documented in this encounter [facility] 03-14-2024 Evaluation + Plan note Associated Problem(s): Linear scleroderma Condition stable. [facility] 03-14-2024 Evaluation + Plan note Associated Problem(s): Chronic back pain Stable. Continue current medications. [facility] 03-14-2024 Evaluation + Plan note Associated Problem(s): Osteopetrosis Obtain labs previously ordered by osteoporosis clinic [facility] 03-14-2024 Evaluation + Plan note Associated Problem(s): Hypercholesterolemia Controlled. Continue atorvastatin 20 mg nightly [facility] 03-14-2024 Evaluation + Plan note Associated Problem(s): Hypertension Controlled. Blood pressure 133/79. Continue amlodipine 5 mg daily [facility] 03-14-2024 Evaluation + Plan note Associated Problem(s): Systemic sclerosis (HCC) Stable. Has been evaluated by Dr. Benson rheumatology. Stable condition no rheumatological interventions indicated [facility] [facility] 03-14-2024 Evaluation + Plan note Associated Problem(s): Vitamin D deficiency History of vitamin D deficiency, check vitamin D level [facility] 03-14-2024 Evaluation + Plan note Associated Problem(s): Chronic pain syndrome Continue Percocet 5-3 25 every 8 hours as needed for severe pain. OARRS reviewed and consistent with treatment plan. CS MA is in place. Patient is currently trying to get established with [facility] pain management and is waiting for their reply after sending in their forms about 3 weeks ago. [facility] 03-14-2024 Evaluation + Plan note Associated Problem(s): Uncomplicated opioid dependence (HCC) Continue Percocet 5-325 mg every 8 hours as needed for severe pain. OARRS reviewed and consistent with treatment plan CS MA is in place [facility] 03-14-2024 Note Continue Percocet 5- 325 mg every 8 hours as needed for severe pain. OARRS reviewed and consistent with treatment plan CS MA is in place [facility] 03-14-2024 Evaluation + Plan note Associated Problem(s): Abnormal mammography Due to her linear scleroderma, needs to have ultrasound of the left breast for breast cancer screening. [facility] 03-14-2024 History of Present illness Narrative Patient was identified by name and Date of . Health Maintenance Due Topic HIV Screening-DECLINED Colorectal Cancer Screening-PENDED LAST REF CLOSED Diabetes Screening-ORDERS IN DTaP/Tdap/Td Vaccines -DECLINED Hepatitis B Vaccines-DECLINED Cervical Cancer Screening-NEEDS SCHEDULED Zoster Vaccines-declined Lung Cancer Screening-pended Bone Density Scan-orders in advised to schedule EXP 08/11/24 Medicare Advantage Annual Wellness Visit-today Mammogram-orders in advised to schedule EXP 01/02/2025 Medicare Annual Wellness (AWV) -today [facility] NEED TO FAX ALL ORDERS OVER WANTS DONE THERE. FAX # TO SEND ORDERS TO IS [phone] 1.) Call Gastroenterology to schedule appointment--they will get you scheduled for a colonoscopy. 2.) Orders will all be faxed to [facility] you will need to call them to schedule at [phone] ----Mammogram,Lung CT, DEXA Scan/Bone Density--- 3.) Any vaccines, you will need to have completed at the health Dept. 4.) Schedule for Well Female exam. Administrations This Visit triamcinolone acetonide (Kenalog-40) injection 80 mg Admin Date 03/14/2024 Action Given Dose 80 mg Route IntraMUSCular Documented By Korin Mack Patient was identified by name and Date Of . After obtaining informed consent, injection for Kenalog 80 mg was ordered by provider. Information given to the patient and or Family/Guardian with signs and symptoms of adverse effects and when to seek medical attention. Site was cleansed with an alcohol swab, injection was given, and bandage(s) were applied to injection site. Patient tolerated well, advised patient and or Family/Guardian to stay in the office 20 minutes after injection has been given to observe for any reaction. Injection was given by Korin Mack MA in right dorsogluteal. Images from the original note were not included. [facility] [place] [facility] [address] [facility] [id number] Dept: [phone] Dept Chief Complaint: Paris Moncada is an 53 y.o. female here for an annual wellness visit. Assessment/Plan : Problem List Items Addressed This Visit Linear scleroderma Condition stable. Chronic back pain Stable. Continue current medications. Relevant Medications tiZANidine (Zanaflex) 4 MG tablet triamcinolone acetonide (Kenalog-40) injection 80 mg (Completed) Osteopetrosis Obtain labs previously ordered by osteoporosis clinic Relevant Orders TSH Phosphorus Magnesium PTH, intact Chronic pain syndrome Continue Percocet 5-3 25 every 8 hours as needed for severe pain. OARRS reviewed and consistent with treatment plan. CS MA is in place. Patient is currently trying to get established with [facility] pain management and is waiting for their reply after sending in their forms about 3 weeks ago. Relevant Medications oxyCODONE-acetaminophen (Percocet) 5-325 MG tablet (Start on 03/18/2024) Irritable bowel syndrome Stable. Referral made to gastroenterology, patient due for colon cancer screening Hypercholesterolemia Controlled. Continue atorvastatin 20 mg nightly Relevant Orders Lipid panel Hypertension Controlled. Blood pressure 133/79. Continue amlodipine 5 mg daily Relevant Orders Lipid panel TSH Comprehensive metabolic panel Insomnia Symptoms well-controlled on Lunesta 3 mg nightly. Continue current medication. Systemic sclerosis (HCC) Stable. Has been evaluated by Dr. Benson rheumatology. Stable condition no rheumatological interventions indicated Vitamin D deficiency History of vitamin D deficiency, check vitamin D level Relevant Orders Vitamin D Deficiency Screening (Vit D 25) Uncomplicated opioid dependence (HCC) Continue Percocet 5-325 mg every 8 hours as needed for severe pain. OARRS reviewed and consistent with treatment plan CS MA is in place Abnormal mammography Due to her linear scleroderma, needs to have ultrasound of the left breast for breast cancer screening. Relevant Orders Left breast US limited Other Visit Diagnoses Routine general medical examination at health care facility - Primary Colon cancer screening Relevant Orders [facility] Screening for deficiency anemia Relevant Orders CBC auto differential Encounter for screening mammogram for malignant neoplasm of breast I have reviewed and reconciled the medication list with the patient today. Current Outpatient Medications Medication Sig Dispense Refill amitriptyline (Elavil) 50 MG tablet Take 1 tablet (50 mg) by mouth Nightly. 90 tablet 1 amLODIPine (Norvasc) 5 MG tablet Take 1 tablet (5 mg) by mouth daily. 90 tablet 1 atorvastatin (Lipitor) 20 MG tablet take 1 tablet by mouth nightly 90 tablet 1 choline fenofibrate (Trilipix) [address] capsule Take by mouth. dexlansoprazole (Dexilant) [address] capsule take 1 capsule by mouth once daily 90 capsule 1 eszopiclone (Lunesta) 3 MG tablet Take 1 tablet (3 mg) by mouth Nightly as needed for sleep. Take immediately before bedtime Do not start before March 04, 2024. 30 tablet 0 naloxone (Narcan) 4 mg/0.1 mL nasal spray ADMINISTER A SINGLE spray INTO ONE NOSTRIL repeat in 3 MINUTES IF... (REFER TO PRESCRIPTION NOTES). nystatin (Mycostatin) 879482 UNIT/GM powder Apply topically 3 times daily. 60 g 1 [START ON 03/18/2024] oxyCODONE-acetaminophen (Percocet) 5-325 MG tablet Take 1 tablet by mouth every 8 hours as needed for severe pain (7-10). Do not start before March 18, 2024. 90 tablet 0 tiZANidine (Zanaflex) 4 MG tablet Take 1 tablet at bedtime as needed for muscle spasms 90 tablet 1 No current facility-administered medications for this visit. Also reviewed during this visit: Chronic back pain-patient currently on Percocet 5-325 mg every 8 hours for her pain, also uses medical marijuana. In addition to Tylenol. Majority of her pain is arthritic in the right hip lower back and shoulder. Patient states she did reach out to [facility] pain management and sent the information they needed to them about 3 weeks ago and is waiting for them to call to schedule. They were recommended by the lavender farm worker Dr. Benson. Last visit we gave her a Kenalog injection which she says helped quite a bit with her back pain and is requesting another injection today. She uses the tizanidine 4 mg at bedtime as needed for muscle spasms. Insomnia-reports sleep is good with Lunesta 3 mg nightly. Did not tolerate adjustment in dosing. Osteopetrosis-patient was seen by osteoporosis clinic last year and needs to get some labs done for further evaluation. IBS-patient has waxing waning constipation diarrhea. Is due for her colonoscopy. Hyperlipidemia-due for cholesterol levels checked. Is taking atorvastatin 20 mg nightly, denies any adverse effects of the medication. Breast cancer screening-last mammogram was okay in 2021. States that she has to have an ultrasound on the left breast due to her linear scleroderma and she is unable to tolerate the mammography for the left breast. The following health maintenance schedule was reviewed with the patient and provided in printed form in the after visit summary: Health Maintenance Topic Date Due Colorectal Cancer Screening Never done Diabetes Screening Never done Cervical Cancer Screening Never done Lung Cancer Screening Never done Bone Density Scan 01/21/2024 Mammogram 03/04/2024 Depression Monitoring 05/02/2024 Medicare Annual Wellness (AWV) 04/13/2025 Lipid Panel 03/04/2028 RSV Immunization for Adults (1 - 1-dose 75+ series) 06/08/2047 Medicare Advantage Annual Wellness Visit Completed Influenza Vaccine Completed Pneumococcal Vaccine: 50+ Years Completed Hepatitis C Screening Completed RSV Immunization under 20 Months Aged Out HIB Vaccines Aged Out IPV Vaccines Aged Out Hepatitis A Vaccines Aged Out Meningococcal Vaccine Aged Out Rotavirus Vaccines Aged Out HPV Vaccines Aged Out DTaP/Tdap/Td Vaccines Discontinued Hepatitis B Vaccines Discontinued MMR Vaccines Discontinued Zoster Vaccines Discontinued HIV Screening Discontinued COVID-19 Vaccine Discontinued List of current healthcare providers: Patient Care Team: Juancho Goodman MD as PCP - General (Family Medicine) Orders Placed This Encounter Procedures Left breast US limited Standing Status: Future Standing Expiration Date: 05/12/2025 CBC auto differential Standing Status: Future Number of Occurrences: 1 Standing Expiration Date: 03/14/2025 Lipid panel Standing Status: Future Number of Occurrences: 1 Standing Expiration Date: 03/14/2025 TSH Standing Status: Future Number of Occurrences: 1 Standing Expiration Date: 03/14/2025 Phosphorus Standing Status: Future Number of Occurrences: 1 Standing Expiration Date: 03/14/2025 Magnesium Standing Status: Future Number of Occurrences: 1 Standing Expiration Date: 03/14/2025 PTH, intact Standing Status: Future Number of Occurrences: 1 Standing Expiration Date: 03/14/2025 Comprehensive metabolic panel Standing Status: Future Number of Occurrences: 1 Standing Expiration Date: 03/14/2025 Vitamin D Deficiency Screening (Vit D 25) Standing Status: Future Number of Occurrences: 1 Standing Expiration Date: 03/14/2025 [facility] Standing Status: Future Standing Expiration Date: 09/11/2024 Referral Priority: Routine Referral Type: Consultation Referral Reason: Specialty Services Required Requested Specialty: Gastroenterology Number of Visits Requested: 1 Review of Systems Constitutional: Negative. HENT: Positive for congestion (SINUS CONGESTION SOME). Negative for postnasal drip, rhinorrhea, sinus pressure, sinus pain and sore throat. Eyes: Negative for pain. Eye exam last year. 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 Negative for shortness of breath. Cardiovascular: Negative for chest pain, palpitations and leg swelling. Gastrointestinal: Positive for constipation and diarrhea. Negative for abdominal pain, nausea and vomiting. IBS and has occasional constipation and loose stools Genitourinary: Negative for difficulty urinating, dysuria and flank pain. Musculoskeletal: Positive for arthralgias, back pain and gait problem. Chronic Neurological: Negative for dizziness, light-headedness and headaches. Psychiatric/Behavioral: Positive for dysphoric mood. Negative for agitation, behavioral problems, self-injury, sleep disturbance and suicidal ideas. Physical Exam Constitutional: General: She is not [...] and oriented to person, place, and time. Psychiatric: Mood and Affect: Mood normal. Behavior: Behavior normal. Thought Content: Thought content normal. Judgment: Judgment normal. Objective : BP 133/79 Pulse 94 Temp 36.9 C (98.4 F) (Oral) Resp 20 Ht 4' 6 (1.372 m) Wt 98 lb (44.5 kg) SpO2 95% BMI 23.63 kg/m Vision Screening Right eye Left eye Both eyes Without correction 20/50 na 20/50 With correction Encouraged patient to follow-up with eye doctor-patient has eyeglasses but does not wear them. Reports also having a slight cataract on the right eye. 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 Her mom is staying in a mcfp facility and her dad is at home. She also has had some issues with her brother Mark and they are currently not getting along. Her aunt is helping with transportation for her mom to and from therapy. Health Habits/Nutrition: Health Habits / Nutrition On average, how many days per week do you engage in moderate to strenous exercise (like a brisk walk)?: 7 days On average, how man minutes do you engage in exercise at this level?: 10 min Have you lost any weight without trying in the past 3 months? : No Have you seen the dentist within the past year?: (!) No Hearing/ Vision: Hearing / Vision Do you or your family notice any trouble with your hearing that hasn't been managed with hearing aids?: No Do you have difficulty driving, watching TV, or doing any of your daily activities because of your eyesight?: No Have you had an eye exam within the past year?: Yes Vision Screening Right eye Left eye Both eyes Without correction 20/50 na 20/50 With correction Safety: Safety Do you have a working smoke detector?: Yes Do you have any tripping hazards - loose or unsecured carpets or rugs?: No Do you have any tripping hazards - clutter in doorways, halls, or stairs?: No Do you have either shower bars, grab bars, non-slip mats or non-slip surfaces in your shower or bathtub? : Yes Do all your stairways have a railing or banister? : Yes Do you fasten your seatbelt when you are in a car?: Yes ADL: ADL In the past 7 days, did you need help from others to perform any of the following everyday activities: Eating, dressing, grooming,bathing, toileting, or walking / balance? : No In the past 7 days, did you need help from others to take care of any of the following: laundry, housekeeping, banking / finances,shopping, telephone use, food preparation, transportation, or taking medications? : No Living Will: Living Will Do you have a living will?: No Interventions: Advance Care Planning addressed with patient today Cognitive: Cognitive Screening: Mini-Cog Clock Drawing Test (CDT): 2 Words Recalled: 3 Total Score: 5 Total Score Interpretation: Normal Mini-Cog Fall Risk: Fall Risk One or more falls in the last year:: No Advised to use a cane or walker to get around safely:: No Feels unsteady when walking:: Yes Steadies self on furniture while walking at home:: No Worried about falling:: Yes Depression Screening: Interventions: Patient declines any further evaluation / treatment for this issue Tobacco Use: Social History Tobacco Use Smoking Status Every Day Current packs/day: 1.00 Average packs/day: 1 pack/day for 35.0 years (35.0 ttl pk-yrs) Types: Cigarettes Smokeless Tobacco Never Alcohol Use: Etoh none Social Drivers of Health: SDOH risk assessment performed and documented today by members of the health care team. A total time of 15+ minutes was spent obtaining information from the patient and discussing options to address the patient's social risk factors and unmet needs. Social Drivers of Health with Concerns Concerns Present Tobacco Use: High Risk (03/14/2024) Physical Activity: Insufficiently Active (11/24/2022) Depression: Mild depression (11/03/2023) Housing Stability: High Risk (11/24/2022) documented in this encounter [facility] 03-14-2024 Instructions KATHERINE Escalante CNP - 03/14/2024 2:40 PM EST [facility] NEED TO FAX ALL ORDERS OVER WANTS DONE THERE. FAX # TO SEND ORDERS TO IS [phone] 1.) Call Gastroenterology to schedule appointment at [phone] they will get you scheduled for a colonoscopy. 2.) Orders will all be faxed to [facility] you will need to call them to schedule at [phone] ----Mammogram,Lung CT, DEXA Scan/Bone Density--- 3.) Any vaccines, you will need to have completed at the health Dept. 4.) Schedule for Well Female exam. Personalized Preventative Plan for Paris Moncada - 03/14/2024 Medicare offers a range of preventative health benefits. Some of the tests and screenings are paid in full while others may be subject to a deductible, co-insurance, and / or copay. Some of these benefits include a comprehensive review of your medical history including lifestyle, illnesses that may run in your family, and various assessments and screenings as appropriate. After reviewing your medical record and screening and assessments performed today, your provider may have ordered immunizations, labs, imaging, and / or referrals for you. A list of these orders (if applicable) as well as your Preventative Care list are included within your After Visit Summary for your review. Other Preventative Recommendations: A preventive eye exam by an client engagement specialist is recommended every 1-2 years to screen for glaucoma, cataracts, macular degeneration, and other eye disorders. A preventive dental visit is recommended every 6 months. Try to get at least 150 minutes of exercise per week or 10,000 steps per day on a pedometer. You need 1200-1500mg of calcium and 1169-4622 international units of vitamin D per day. It is possible to meet your calcium requirement with diet alone, but a vitamin D supplement is usually necessary to meet this goal. When exposed to the sun, use a sunscreen that protects against both UVA and UVB radiation with an SPF of 30 or greater. Reapply every 2-3 hours or after sweating, drying off with a towel, or swimming. Always wear a seat belt when traveling in a car. Always wear a helmet when riding a bicycle or a motorcycle documented in this encounter [facility] 03-02-2024 Telephone encounter Note CSA 01/11/24 [facility] 03-02-2024 Miscellaneous Notes CSA 01/11/24 Ordering provider: Dr. Goodman Date of last office visit: 01/11/2024 Date of next office visit: 03/14/2024 Updated/Validated preferred pharmacy: Yes Patient instructed to contact the pharmacy prior to picking up the medication: No (1) Medication name: tiZANidine (Zanaflex) 4 MG tablet Medication dosage: 4 mg (Miligrams Monthly quantity needed: 30 How many day supply requestin days Medication route: oral (PO) Medication administration time(s): TAKE 2 TABLETS BY MOUTH AT BEDTIME IF NEEDED If taking medication PRN, reason for taking medication: N/A If this is a controlled substance do you receive this or any other controlled medication from any other doctor or facility: No Date of last refill (see medication tab): 02/07/2024 (2) Medication name: eszopiclone (Lunesta) 3 MG tablet Medication dosage: 3 mg (Miligrams Monthly quantity needed: 30 How many day supply requestin days Medication route: oral (PO) Medication administration time(s): bedtime (HS) If taking medication PRN, reason for taking medication: N/A If this is a controlled substance do you receive this or any other controlled medication from any other doctor or facility: No Date of last refill (see medication tab): 02/03/2024 documented in this encounter [facility] 03-02-2024 Telephone encounter Note Ordering provider: Dr. Goodman Date of last office visit: 01/11/2024 Date of next office visit: 03/14/2024 Updated/Validated preferred pharmacy: Yes Patient instructed to contact the pharmacy prior to picking up the medication: No (1) Medication name: tiZANidine (Zanaflex) 4 MG tablet Medication dosage: 4 mg (Miligrams Monthly quantity needed: 30 How many day supply requestin days Medication route: oral (PO) Medication administration time(s): TAKE 2 TABLETS BY MOUTH AT BEDTIME IF NEEDED If taking medication PRN, reason for taking medication: N/A If this is a controlled substance do you receive this or any other controlled medication from any other doctor or facility: No Date of last refill (see medication tab): 02/07/2024 (2) Medication name: eszopiclone (Lunesta) 3 MG tablet Medication dosage: 3 mg (Miligrams Monthly quantity needed: 30 How many day supply requestin days Medication route: oral (PO) Medication administration time(s): bedtime (HS) If taking medication PRN, reason for taking medication: N/A If this is a controlled substance do you receive this or any other controlled medication from any other doctor or facility: No Date of last refill (see medication tab): 02/03/2024 [facility] 02-28-2024 Telephone encounter Note Orders cancelled [facility] 02-28-2024 Miscellaneous Notes Orders cancelled Ok to cancel As of today, 02/28/24, pt has not scheduled for a CT-Lung Screen. Okay to cancel orders as they will close on 03/04/24 due to being . Noted Please keep it open. Patient said she was planning on rescheduling it when I talked to her last. Pt given orders for CT-Lung Screen on 03/04/23. Pt sched for 06/29/23 and NC/NS to appt. No follow up scheduled at this time. Okay to cancel orders? documented in this encounter [facility] [employer] 02-28-2024 Telephone encounter Note Ok to cancel [facility] [employer] 02-28-2024 Telephone encounter Note As of today, 02/28/24, pt has not scheduled for a CT-Lung Screen. Okay to cancel orders as they will close on 03/04/24 due to being . [facility] [employer] 02-17-2024 Telephone encounter Note 12/09/23 rfp Percocet CSA - 12/07/2024 [facility] [employer] 02-17-2024 Miscellaneous Notes 12/09/23 rfp Percocet CSA - 12/07/2024 Medication name: The patient does not have an appointment with pain management. She mailed the paperwork to them on 02-14-2024. She is waiting to here from them after they receive her records from her previous pain management. The patient will be out of medication on Wednesday evening ). The patient is requesting a call back about the below medication. Please advise. oxyCODONE-acetaminophen (Percocet) 5-325 MG tablet - Take 1 tablet by mouth every 8 hours as needed for severe pain (7-10) for up to 10 days. Medication dosage: 5-325 mg mg (Miligrams Monthly quantity needed: 90 How many day supply requestin days Medication route: oral (PO) Medication administration time(s): every 8 hours If taking medication PRN, reason for taking medication: Take 1 tablet by mouth every 8 hours as needed for severe pain (7-10) for up to 10 days. If this is a controlled substance do you receive this or any other controlled medication from any other doctor or facility: No Ordering provider: Dr. Goodman Date of last office visit: 01-11-2024 Date of next office visit: 03-02-2024 Date of last refill: (see medication tab): 02-03-2024 Updated/Validated preferred pharmacy: Yes Patient instructed to contact the pharmacy prior to picking up the medication: Yes documented in this encounter [facility] 02-17-2024 Telephone encounter Note Medication name: The patient does not have an appointment with pain management. She mailed the paperwork to them on 02-14-2024. She is waiting to here from them after they receive her records from her previous pain management. The patient will be out of medication on Wednesday evening ). The patient is requesting a call back about the below medication. Please advise. oxyCODONE-acetaminophen (Percocet) 5-325 MG tablet - Take 1 tablet by mouth every 8 hours as needed for severe pain (7-10) for up to 10 days. Medication dosage: 5-325 mg mg (Miligrams Monthly quantity needed: 90 How many day supply requestin days Medication route: oral (PO) Medication administration time(s): every 8 hours If taking medication PRN, reason for taking medication: Take 1 tablet by mouth every 8 hours as needed for severe pain (7-10) for up to 10 days. If this is a controlled substance do you receive this or any other controlled medication from any other doctor or facility: No Ordering provider: Dr. Goodman Date of last office visit: 01-11-2024 Date of next office visit: 03-02-2024 Date of last refill: (see medication tab): 02-03-2024 Updated/Validated preferred pharmacy: Yes Patient instructed to contact the pharmacy prior to picking up the medication: Yes [facility] 02-07-2024 Telephone encounter Note Prescription Request: Last medication check: 01/11/24 Last physical exam: 03/04/23 Next scheduled appointment: 03/02/24 Last date of refill on this medication 12/30/23 30 tablets 1 refill [facility] 02-07-2024 Miscellaneous Notes Prescription Request: Last medication check: 01/11/24 Last physical exam: 03/04/23 Next scheduled appointment: 03/02/24 Last date of refill on this medication 12/30/23 30 tablets 1 refill documented in this encounter [facility] 01-11-2024 Evaluation + Plan note Associated Problem(s): Yeast dermatitis Within the breast folds. Keep area clean and dry and apply nystatin twice daily until clears. Follow-up for worsening or failure for symptoms to improve [facility] 01-11-2024 Miscellaneous Notes Associated Problem(s): Yeast dermatitis Within the breast folds. Keep area clean and dry and apply nystatin twice daily until clears. Follow-up for worsening or failure for symptoms to improve Associated Problem(s): Mass on back MRI showing soft tissue thickening without other concerning findings. Continue to monitor Associated Problem(s): Chronic pain syndrome Continue Percocet 5-3 25 every 8 hours as needed for severe pain. OARRS reviewed and consistent with treatment plan. CS MA is in place. Patient is to reach out to lavender farm worker to see what pain management doctor was recommended. Associated Problem(s): Bulging lumbar disc Patient did not have significant improvement with physical therapy. We will give Kenalog injection IM to see if this helps with her pain. documented in this encounter [facility] 01-11-2024 Evaluation + Plan note Associated Problem(s): Mass on back MRI showing soft tissue thickening without other concerning findings. Continue to monitor [facility] 01-11-2024 Evaluation + Plan note Associated Problem(s): Chronic pain syndrome Continue Percocet 5-3 25 every 8 hours as needed for severe pain. OARRS reviewed and consistent with treatment plan. CS MA is in place. Patient is to reach out to lavender farm worker to see what pain management doctor was recommended. [facility] 01-11-2024 Note Continue Percocet 5- 3 25 every 8 hours as needed for severe pain. OARRS reviewed and consistent with treatment plan. CS MA is in place. Patient is to reach out to lavender farm worker to see what pain management doctor was recommended. [facility] 01-11-2024 Evaluation + Plan note Associated Problem(s): Bulging lumbar disc Patient did not have significant improvement with physical therapy. We will give Kenalog injection IM to see if this helps with her pain. [facility] 01-11-2024 History of Present illness Narrative Patient was identified by name and Date of . Images from the original note were not included. 01/11/2024 [place] Moncada (: 1970) is a 53 y.o. female , Established patient, here for evaluation of the following chief complaint(s): Follow-up ASSESSMENT/PLAN: 1. Chronic pain syndrome Assessment & Plan: Continue Percocet 5-3 25 every 8 hours as needed for severe pain. OARRS reviewed and consistent with treatment plan. MA is in place. Patient is to reach out to lavender farm worker to see what pain management doctor was recommended. 2. Bulging lumbar disc Assessment & Plan: Patient did not have significant improvement with physical therapy. We will give Kenalog injection IM to see if this helps with her pain. 3. Yeast dermatitis Assessment & Plan: Within the breast folds. Keep area clean and dry and apply nystatin twice daily until clears. Follow-up for worsening or failure for symptoms to improve Orders: - nystatin (Mycostatin) 537489 UNIT/GM powder; Apply topically 3 times daily., Starting Wed01/11/2024, Until Wed01/10/2025, Normal 4. Chronic right-sided low back pain without sciatica - triamcinolone acetonide (Kenalog-40) injection 80 mg; 80 mg, IntraMUSCular, Once, On Wed01/11/24 at 1600, For 1 dose 5. Mass on back Assessment & Plan: MRI showing soft tissue thickening without other concerning findings. Continue to monitor Follow up for 3 month [facility]. SUBJECTIVE/OBJECTIVE: BRADFORD Moncada (: 1970) is a 53 y.o. female , Established patient, here for the evaluation of the following chief complaint(s): Follow-up Presents for follow-up chronic pain. Has been seen by lavender farm worker-Dr. Benson. Marketing And Promotions Manager did recommend a specific painting manager but we are unsure of whom the recommendation was for. Currently she is taking Percocet 5 mg every 8 hours. Tizanidine 4 mg, amitriptyline 50 mg at bedtime. She has not tolerated pain injections in the past other than steroid injection in the right shoulder and occasional trigger point injection. She does use medical marijuana at night and sometimes on the weekends to help with her IBS symptoms. She has been having increased right lower back pain and has an area of the soft tissue mass that seems to be bothersome. MRI in June showed some right sided disc bulging at L5-S1 that may be contributing to the area of pain. She did do some physical therapy without much relief. Is doing ok, increased stress regarding mom getting dx with a brain tumor. Is helping her at home. Uncle is recently on hospice. 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 She is requesting an increase of her Percocet. Patient was advised that I am unable to increase her pain medication and that we need to get her to a painting manager that we will manage her pain for her. We did try to wean her down on the Lunesta, however she was unable to due to difficulty sleeping. She did not tolerate higher doses of amitriptyline and was unable to tolerate Cymbalta in the past. Prior to Admission medications Medication Sig Start Date End Date Taking? Authorizing Provider amitriptyline (Elavil) 50 MG tablet Take 1 tablet (50 mg) by mouth Nightly. 12/23/23 Yes Britta Bridenthal, [employer]TAIN [employer] - EMPLOYEE HEALTH NURSE amLODIPine (Norvasc) 5 MG tablet Take 1 tablet (5 mg) by mouth daily. 11/03/23 11/24/24 Yes Britta Bridenthal, [employer] EMPLOYEE HEALTH NURSE atorvastatin (Lipitor) 20 MG tablet take 1 tablet by mouth nightly 09/08/23 Yes Britta Bridenthal, [employer] - [employer]ISON choline fenofibrate (Trilipix) [address] capsule Take by mouth. 11/24/21 Yes Historical Provider, dexlansoprazole (Dexilant) [address] capsule take 1 capsule by mouth once daily 07/26/23 Yes Britta Fordal [employer] eszopiclone (Lunesta) 3 MG tablet Take 1 tablet (3 mg) by mouth Nightly as needed for sleep. Take immediately before bedtime 01/07/24 02/06/24 Yes Juancho Goodman MD naloxone (Narcan) 4 mg/0.1 mL nasal spray ADMINISTER A SINGLE spray INTO ONE NOSTRIL repeat in 3 MINUTES IF... (REFER TO PRESCRIPTION NOTES). 03/04/23 Yes Historical Provider, oxyCODONE-acetaminophen (Percocet) 5-325 MG tablet Take 1 tablet by mouth every 8 hours as needed for severe pain (7-10). Do not start before January 08, 2024. 01/08/24 02/07/24 Yes Britta Trudy [employer] tiZANidine (Zanaflex) 4 MG tablet take 2 tablets by mouth at bedtime if needed 12/30/23 Yes Britta Fordal [employer] eszopiclone (Lunesta) 3 MG tablet Take 1 tablet (3 mg) by mouth Nightly as needed for sleep. Take immediately before bedtime 11/27/23 01/07/24 Britta Fordal [employer] - EMPLOYEE HEALTH NURSE Review of Systems Constitutional: Negative. Negative for activity change, chills, fatigue and fever. HENT: Negative. Respiratory: Negative. Cardiovascular: Negative. Gastrointestinal: Negative for abdominal pain, blood in stool, nausea and vomiting. Alternates between constipaton and loose stools- IBS Genitourinary: Negative for difficulty urinating. Musculoskeletal: Positive for back pain and gait problem. Neurological: Negative for dizziness and light-headedness. Psychiatric/Behavioral: Negative for agitation, dysphoric mood, self-injury, sleep disturbance and suicidal ideas. The patient is not nervous/anxious. Vitals: 01/11/24 1520 01/11/24 1605 BP: (!) 157/83 (!) 149/83 Pulse: 88 86 Resp: 24 Temp: 37.3 C (99.1 F) TempSrc: Infrared SpO2: 98% Weight: 103 lb 3.2 oz (46.8 kg) Physical Exam Constitutional: General: She is [...] scoliosis noted Lymphadenopathy: Cervical: No cervical adenopathy. Skin: Comments: Noted small area of erythema under right breast, moist Neurological: Mental Status: She is alert and oriented to person, place, and time. Psychiatric: Mood and Affect: Mood normal. Behavior: Behavior normal. Thought Content: Thought content normal. Judgment: Judgment normal. An electronic signature was used to authenticate this note. KATHERINE Bergman CNP 01/11/2024 6:43 PM documented in this encounter [facility] 01-11-2024 Instructions KATHERINE Escalante CNP - 01/11/2024 3:20 PM EST Please reach out to Dr. Benson to see what painting manager it was that she recommended for you. [phone] documented in this encounter [facility] 12-23-2023 Telephone encounter Note Reviewed chart. Refill appropriate. RX sent. [facility] 12-23-2023 Miscellaneous Notes Reviewed chart. Refill appropriate. RX sent. Prescription Request: Last medication check: 12/09/23 Last physical exam: 03/04/23 Next scheduled appointment: 01/11/24 Last date of refill on this medication 06/24/23 90 day 1 refill documented in this encounter [facility] 12-23-2023 Telephone encounter Note Prescription Request: Last medication check: 12/09/23 Last physical exam: 03/04/23 Next scheduled appointment: 01/11/24 Last date of refill on this medication 06/24/23 90 day 1 refill [facility] 12-14-2023 Telephone encounter Note Last office visit note and summary faxed to number provided. [facility] 12-14-2023 Miscellaneous Notes Last office visit note and summary faxed to number provided. Called and spoke with Dr. Benson, rheumatology who will be seeing patient later today to establish. Discussed plan of care and concerns regarding patient's pain management. Would like Dr. 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 Also if any rheumatologic medications would be helpful for her. Will send most recent OV note. documented in this encounter [facility] 12-14-2023 Telephone encounter Note Called and spoke with Dr. Benson, rheumatology who will be seeing patient later today to establish. Discussed plan of care and concerns regarding patient's pain management. Would like Dr. 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 Also if any rheumatologic medications would be helpful for her. Will send most recent OV note. [facility] 12-09-2023 Evaluation + Plan note Associated Problem(s): Hypertension Initial blood pressure elevated, repeat blood pressure good 119/77. Continue amlodipine 5 mg daily. Remember to bring home blood pressure cuff to the next office visit [facility] 12-09-2023 Miscellaneous Notes Associated Problem(s): Hypertension Initial blood pressure elevated, repeat blood pressure good 119/77. Continue amlodipine 5 mg daily. Remember to bring home blood pressure cuff to the next office visit Associated Problem(s): Chronic pain syndrome Patient was unable to tolerate decreased dose of Lunesta. Patient is well aware of possible oversedation with combined use of opioids, marijuana, muscle relaxant and her other medications. She does have Narcan available at home. Patient reports her pain is not well-managed on the Percocet 5 mg every 8 hours. We discussed possibly increasing the amitriptyline however patient reports she did not tolerate higher than 50 mg. Patient does have an appointment with rheumatology next week. 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 At this time we will continue current dose of Percocet 5 mg every 8 hours as needed for pain, OARRS reviewed and consistent with treatment plan. JESSE HUDSON is in place Associated Problem(s): Arthritis Severe. Pain poorly managed Associated Problem(s): Linear scleroderma Patient reports she has an appointment on the to establish care with Dr. Benson rheumatology. Provider will try to reach out to Dr. Benson prior to her appointment to discuss patient's plan of care documented in this encounter [facility] 12-09-2023 Evaluation + Plan note Associated Problem(s): Chronic pain syndrome Patient was unable to tolerate decreased dose of Lunesta. Patient is well aware of possible oversedation with combined use of opioids, marijuana, muscle relaxant and her other medications. She does have Narcan available at home. Patient reports her pain is not well-managed on the Percocet 5 mg every 8 hours. We discussed possibly increasing the amitriptyline however patient reports she did not tolerate higher than 50 mg. Patient does have an appointment with rheumatology next week. 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 At this time we will continue current dose of Percocet 5 mg every 8 hours as needed for pain, OARRS reviewed and consistent with treatment plan. JESSE MA is in place [facility] 12-09-2023 Evaluation + Plan note Associated Problem(s): Arthritis Severe. Pain poorly managed [facility] 12-09-2023 Evaluation + Plan note Associated Problem(s): Linear scleroderma Patient reports she has an appointment on the to establish care with Dr. Benson rheumatology. Provider will try to reach out to Dr. Benson prior to her appointment to discuss patient's plan of care [facility] 12-09-2023 History of Present illness Narrative Patient was identified by name and Date of . Patient was identified by name and Date Of . After obtaining informed consent, Immunization(s) were ordered by provider. The patient and or Family/Guardian was instructed on the benefits and risks related to the vaccine or toxoid. Information given to the patient and or Family/Guardian with signs and symptoms of adverse effects and when to seek medical attention. Site was cleansed with an alcohol swab, immunization(s) were given, and bandage(s) were applied to injection site. Patient tolerated well, advised patient and or Family/Guardian to stay in the office 20 minutes after injection has been given to observe for any reaction. Immunization(s) was given by Korin Mack MA. Images from the original note were not included. 12/09/2023 [place] Moncada (: 1970) is a 53 y.o. female , Established patient, here for evaluation of the following chief complaint(s): Follow-up ASSESSMENT/PLAN: 1. Chronic pain syndrome Assessment & Plan: Patient was unable to tolerate decreased dose of Lunesta. Patient is well aware of possible oversedation with combined use of opioids, marijuana, muscle relaxant and her other medications. She does have Narcan available at home. Patient reports her pain is not well-managed on the Percocet 5 mg every 8 hours. We discussed possibly increasing the amitriptyline however patient reports she did not tolerate higher than 50 mg. Patient does have an appointment with rheumatology next week. 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 At this time we will continue current dose of Percocet 5 mg every 8 hours as needed for pain, OARRS reviewed and consistent with treatment plan. MA is in place Orders: - oxyCODONE-acetaminophen (Percocet) 5-325 MG tablet; Take 1 tablet by mouth every 8 hours as needed for severe pain (7-10)., Starting Khushi 12/09/2023, Until 01/08/2024 at 2359, Normal 2. Arthritis Assessment & Plan: Severe. Pain poorly managed 3. Influenza vaccine needed - Flu vaccine (FLUZONE/FLULAVAL/FLUARIX), trivalent, split virus (VFC product) 4. Linear scleroderma Assessment & Plan: Patient reports she has an appointment on the to establish care with Dr. Benson rheumatology. Provider will try to reach out to Dr. Benson prior to her appointment to discuss patient's plan of care 5. Primary hypertension Assessment & Plan: Initial blood pressure elevated, repeat blood pressure good 119/77. Continue amlodipine 5 mg daily. Remember to bring home blood pressure cuff to the next office visit Follow up in about 3 months (around 03/10/2024) for 3 month medcheck. SUBJECTIVE/OBJECTIVE: BRADFORD Moncada (: 1970) is a 53 y.o. female , Established patient, here for the evaluation of the following chief complaint(s): Follow-up Patient presents for med check and pain management. We have been prescribing her opioid pain medication to bridge her to pain management. Unfortunately pain management has been unable to take over her opioid prescriptions and has had the recommendation of using injections instead of opioids. She has been on opioids for many years for her chronic pain. She has had steroid injections and other injections for treatment of her osteoarthritis in shoulders, hips and back. She has degenerative disc disease and spondylosis of the back. She has participated in physical therapy multiple times. She most recently was remeasured for her lift on her left foot and is waiting to have enough money to get a new shoe, as I was concerned that it might be contributing to her increased low back pain. However there was not that much of a discrepancy that would be contributing. she has linear scleroderma which complicates treatment modalities. Reports that she has had problems with injections due to her connective tissue disorder. She was referred to rheumatology and we are waiting for her to get established she has appt with Dr. Benson next week She has trialed in the past for her pain also gabapentin and Lyrica. Has had most success with Percocet 3 times daily. Her Percocet was decreased from 7.5 mg 3 times a day to 5 mg 3 times a day about 1 year ago. It was at that time that we started seeing her and we continued at the decreased dose of 5 mg 3 times a day. She also has a medical marijuana card and uses medical marijuana for her IBS and helps with her anxiety. Her insomnia she states she has been on Lunesta for close to 20 to 30 years and that was the only thing that has been helpful. She is currently on 3 mg nightly. She does have Narcan at home which was previously prescribed. Hypertension-reports that her blood pressure is lower at home in the morning and in the past she was hesitant to take the blood pressure medicine. Today she reports she has been taking it. States her blood pressures at home are usually 110-120/60-70, she was supposed to bring her home monitor with her today but she did not. Osteoporosis-patient has been referred to osteoporosis clinic and followed up with them as directed. IBS-reports intermittent constipation diarrhea. States that the medical marijuana does help with her symptoms and her appetite. Denies any recent illnesses or injuries. Dr. Casey in [place] - does her shoulder injections and has done some hip injections (bursitis) . (can only do the right shoulder d/t disorder). 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 Lives alone in apartment. Insomnia- we tried to decrease the lunesta dose last visit but she stated that she was unable to sleep at all on the 2 mg dose. She was on bupropion previously for mood- but reports she stopped it because she did not think it was helping. Reports that her pain is not well managed and is tearful today. Reports frustration in trying to get her pain better managed. She currently is on elavil 50 mg nightly. Reports that elavil at 100 mg made her too drowsy/foggy the next day. The 50 mg nightly has been the max dose that she could tolerate. Prior to Admission medications Medication Sig Start Date End Date Taking? Authorizing Provider amitriptyline (Elavil) 50 MG tablet take 1 tablet by mouth nightly 06/24/23 Yes Juancho Goodman MD amLODIPine (Norvasc) 5 MG tablet Take 1 tablet (5 mg) by mouth daily. 11/03/23 11/24/24 Yes KATHERINE Escalante CNP atorvastatin (Lipitor) 20 MG tablet take 1 tablet by mouth nightly 09/08/23 Yes KATHERINE Escalante CNP choline fenofibrate (Trilipix) [address] capsule Take by mouth. 11/24/21 Yes Historical Provider, dexlansoprazole (Dexilant) [address] capsule take 1 capsule by mouth once daily 07/26/23 Yes KATHERINE Escalante CNP eszopiclone (Lunesta) 3 MG tablet Take 1 tablet (3 mg) by mouth Nightly as needed for sleep. Take immediately before bedtime 11/27/23 12/27/23 Yes KATHERINE Escalante CNP naloxone (Narcan) 4 mg/0.1 mL nasal spray ADMINISTER A SINGLE spray INTO ONE NOSTRIL repeat in 3 MINUTES IF... (REFER TO PRESCRIPTION NOTES). 03/04/23 Yes Historical Provider, oxyCODONE-acetaminophen (Percocet) 5-325 MG tablet Take 1 tablet by mouth every 8 hours as needed for severe pain (7-10). Do not start before November 10, 2023. 11/10/23 12/10/23 Yes KATHERINE Escalante CNP tiZANidine (Zanaflex) 4 MG tablet take 2 tablets by mouth at bedtime if needed 11/03/23 Yes KATHERINE Escalante CNP Review of Systems Constitutional: Negative for activity change. Vitals: 12/09/23 1303 12/09/23 1353 BP: (!) 167/100 119/77 Pulse: 92 83 Resp: 20 Temp: 37.3 C (99.1 F) TempSrc: Infrared SpO2: 95% Weight: 99 lb 6.4 oz (45.1 kg) Physical Exam Constitutional: General: She is [...] and oriented to person, place, and time. Psychiatric: Mood and Affect: Mood normal. Behavior: Behavior normal. Thought Content: Thought content normal. Judgment: Judgment normal. An electronic signature was used to authenticate this note. KATHERINE Bergman CNP 12/09/2023 5:37 PM documented in this encounter [facility] 11-27-2023 Note Oarrs reviewed and c onsistent with treatment plan. Rx sent. CSMA on file [facility] 11-27-2023 Telephone encounter Note Oarrs reviewed and consistent with treatment plan. Rx sent. CSMA on file [facility] 11-27-2023 Miscellaneous Notes Oarrs reviewed and consistent with treatment plan. Rx sent. CSMA on file Spoke to rustam Rogers updated to [facility] in [place]. Images from the original note were not included. KATHERINE Escalante CNP Clinical Support Staff1 hour ago (12:26 PM) Please notify patient that I will change it back to the Lunesta 3 mg nightly dose. Please confirm pharmacy Called [place], no answer and vm is full. Name of caller: [place] Contact phone number: [phone] Relationship to Patient: patient Provider: KATHERINE Escalante CNP Practice: [facility] Chief Complaint/Reason for Call: Patient is following up on orders for eszopiclone (Lunesta) 3 MG tablet and eszopiclone (Lunesta) 2 MG tablet . Patient states that she can no longer alternate between both orders nightly because she can not get any sleep. Patient would like to continue taking eszopiclone (Lunesta) 3 MG tablet nightly instead. Patient is requesting a returned call to discuss this. Please advise. Best time of day caller can be reached: any Patient advised that office/PCP has 24-48 business hours to return their call: Yes documented in this encounter [facility] [employer] 11-26-2023 Telephone encounter Note Spoke to rustam Rogers updated to [facility] in [place]. [facility] [employer] 11-25-2023 Telephone encounter Note Images from the original note were not included. KATHERINE Escalante CNP Clinical Support Staff1 hour ago (12:26 PM) Please notify patient that I will change it back to the Lunesta 3 mg nightly dose. Please confirm pharmacy Called [place], no answer and vm is full. [facility] 11-25-2023 Telephone encounter Note Name of caller: [place] Contact phone number: [phone] Relationship to Patient: patient Provider: KATHERINE Escalante CNP Practice: [facility] Chief Complaint/Reason for Call: Patient is following up on orders for eszopiclone (Lunesta) 3 MG tablet and eszopiclone (Lunesta) 2 MG tablet . Patient states that she can no longer alternate between both orders nightly because she can not get any sleep. Patient would like to continue taking eszopiclone (Lunesta) 3 MG tablet nightly instead. Patient is requesting a returned call to discuss this. Please advise. Best time of day caller can be reached: any Patient advised that office/PCP has 24-48 business hours to return their call: Yes [facility] 11-03-2023 Evaluation + Plan note Associated Problem(s): Osteoporosis Follow-up with osteoporosis clinic as directed [facility] 11-03-2023 Miscellaneous Notes Associated Problem(s): Osteoporosis Follow-up with osteoporosis clinic as directed Associated Problem(s): Insomnia Symptoms are well-controlled on Lunesta 3 mg nightly. However due to associated risks with Lunesta and opioid use. Recommendation that we wean medication to discontinue. Discussed in great length with patient. This does create some anxiety with her due to her being on the medication for quite some time. Advised we will slowly taper discontinue the medication and evaluate as we go. If significant insomnia persists we will need to reevaluate our plan. At this time she will continue the 3 mg nightly to complete the current prescription and then we will alternate Lunesta 2 mg nightly with Lunesta 3 mg nightly x 1 month. We will further decrease Lunesta as tolerated to 2 mg nightly x 4 weeks, then alternate Lunesta 1 mg nightly with 2 mg nightly for 4 weeks, then Lunesta 1 mg nightly x 4 weeks, then Lunesta 1 mg nightly as needed x 1 month then discontinue. Consider referral to sleep medicine if patient has significant insomnia. Associated Problem(s): Linear scleroderma Patient has been referred to Dr. Benson and is waiting to establish. Patient was advised that this is a priority and she should call to get scheduled Associated Problem(s): Irritable bowel syndrome Stable. Patient will be seeing residential carpet installer Associated Problem(s): Chronic back pain Stable. Continue Percocet 5-325 mg 1 tablet every 8 hours for severe pain. OARRS reviewed and consistent with treatment plan. See other documentation under chronic pain syndrome Associated Problem(s): Hypertension Uncontrolled. Restart amlodipine 10 mg daily. Bring blood pressure cuff to the office at next visit Associated Problem(s): Chronic pain syndrome Provider reached out to [facility] pain stewardship team for further recommendations regarding patient's pain management. Conversation via secure chat. Recommendation was that okay for primary care to continue to prescribe opioid. May increase dosing up to Percocet 5 mg every 6 hours. Currently dosing at 5 mg every 8 hours. Recommendation to wean off of Lunesta due to hypnotic sedation and risk for oversedation. Also recommended for intranasal Narcan to be available if needed-patient already has at home. Also recommend to potentially refer to comprehensive pain management for [facility] in [place]. --------- Discussed in great detail with patient and we will continue the Percocet at the current dosing of 5 mg every 8 hours for severe pain. We will begin taper of Lunesta after her current prescription of 3 mg is complete. We will plan on alternating 2 mg nightly with 3 mg nightly for 1 month, further decrease to 2 mg nightly for 4 weeks, then alternate 1 mg nightly with 2 mg nightly for 4 weeks, then decrease to 1 mg nightly for 4 weeks, then 1 mg as needed nightly for 4 weeks then discontinue. If patient is unable to tolerate due to insomnia would then recommend referral to sleep medicine for further evaluation. She reports she has been on the Lunesta for close to 30 years and this causes her great distress with the thought of having sleep issues again but she is willing to try it. [facility] reviewed and consistent with treatment plan. She is well aware of potential risks associated with using additional medications that may be sedative. Close follow up in 1 month. documented in this encounter [facility] 11-03-2023 Evaluation + Plan note Associated Problem(s): Insomnia Symptoms are well-controlled on Lunesta 3 mg nightly. However due to associated risks with Lunesta and opioid use. Recommendation that we wean medication to discontinue. Discussed in great length with patient. This does create some anxiety with her due to her being on the medication for quite some time. Advised we will slowly taper discontinue the medication and evaluate as we go. If significant insomnia persists we will need to reevaluate our plan. At this time she will continue the 3 mg nightly to complete the current prescription and then we will alternate Lunesta 2 mg nightly with Lunesta 3 mg nightly x 1 month. We will further decrease Lunesta as tolerated to 2 mg nightly x 4 weeks, then alternate Lunesta 1 mg nightly with 2 mg nightly for 4 weeks, then Lunesta 1 mg nightly x 4 weeks, then Lunesta 1 mg nightly as needed x 1 month then discontinue. Consider referral to sleep medicine if patient has significant insomnia. [facility] 11-03-2023 Evaluation + Plan note Associated Problem(s): Linear scleroderma Patient has been referred to Dr. Benson and is waiting to establish. Patient was advised that this is a priority and she should call to get scheduled [facility] 11-03-2023 Evaluation + Plan note Associated Problem(s): Irritable bowel syndrome Stable. Patient will be seeing residential carpet installer [facility] 11-03-2023 Evaluation + Plan note Associated Problem(s): Chronic back pain Stable. Continue Percocet 5-325 mg 1 tablet every 8 hours for severe pain. OARRS reviewed and consistent with treatment plan. See other documentation under chronic pain syndrome [facility] 11-03-2023 Note Stable. Continue Per cocet 5-325 mg 1 tablet every 8 hours for severe pain. OARRS reviewed and consistent with treatment plan. See other documentation under chronic pain syndrome [facility] 11-03-2023 Evaluation + Plan note Associated Problem(s): Hypertension Uncontrolled. Restart amlodipine 10 mg daily. Bring blood pressure cuff to the office at next visit [facility] 11-03-2023 Evaluation + Plan note Associated Problem(s): Chronic pain syndrome Provider reached out to [facility] pain stewardship team for further recommendations regarding patient's pain management. Conversation via secure chat. Recommendation was that okay for primary care to continue to prescribe opioid. May increase dosing up to Percocet 5 mg every 6 hours. Currently dosing at 5 mg every 8 hours. Recommendation to wean off of Lunesta due to hypnotic sedation and risk for oversedation. Also recommended for intranasal Narcan to be available if needed-patient already has at home. Also recommend to potentially refer to comprehensive pain management for [facility] in [place]. --------- Discussed in great detail with patient and we will continue the Percocet at the current dosing of 5 mg every 8 hours for severe pain. We will begin taper of Lunesta after her current prescription of 3 mg is complete. We will plan on alternating 2 mg nightly with 3 mg nightly for 1 month, further decrease to 2 mg nightly for 4 weeks, then alternate 1 mg nightly with 2 mg nightly for 4 weeks, then decrease to 1 mg nightly for 4 weeks, then 1 mg as needed nightly for 4 weeks then discontinue. If patient is unable to tolerate due to insomnia would then recommend referral to sleep medicine for further evaluation. She reports she has been on the Lunesta for close to 30 years and this causes her great distress with the thought of having sleep issues again but she is willing to try it. Oarrs reviewed and consistent with treatment plan. She is well aware of potential risks associated with using additional medications that may be sedative. Close follow up in 1 month. [facility] 11-03-2023 History of Present illness Narrative Health Maintenance Addressed with Patient at Visit: Health Maintenance Due Topic Colorectal Cancer Screening-pended Diabetes Screening-was pended from provider Cervical Cancer Screening-pended Lung Cancer Screening-pended Depression Monitoring-completed COVID-19 Vaccine-declined Influenza Vaccine-declined Images from the original note were not included. 11/03/2023 [place] Moncada (: 1970) is a 53 y.o. female , Established patient, here for evaluation of the following chief complaint(s): Medication Check ASSESSMENT/PLAN: 1. Chronic pain syndrome Assessment & Plan: Provider reached out to [facility] pain stewardship team for further recommendations regarding patient's pain management. Conversation via secure chat. Recommendation was that okay for primary care to continue to prescribe opioid. May increase dosing up to Percocet 5 mg every 6 hours. Currently dosing at 5 mg every 8 hours. Recommendation to wean off of Lunesta due to hypnotic sedation and risk for oversedation. Also recommended for intranasal Narcan to be available if needed-patient already has at home. Also recommend to potentially refer to comprehensive pain management for [facility] in [place]. --------- Discussed in great detail with patient and we will continue the Percocet at the current dosing of 5 mg every 8 hours for severe pain. We will begin taper of Lunesta after her current prescription of 3 mg is complete. We will plan on alternating 2 mg nightly with 3 mg nightly for 1 month, further decrease to 2 mg nightly for 4 weeks, then alternate 1 mg nightly with 2 mg nightly for 4 weeks, then decrease to 1 mg nightly for 4 weeks, then 1 mg as needed nightly for 4 weeks then discontinue. If patient is unable to tolerate due to insomnia would then recommend referral to sleep medicine for further evaluation. She reports she has been on the Lunesta for close to 30 years and this causes her great distress with the thought of having sleep issues again but she is willing to try it. Oarrs reviewed and consistent with treatment plan. She is well aware of potential risks associated with using additional medications that may be sedative. Close follow up in 1 month. Orders: - oxyCODONE-acetaminophen (Percocet) 5-325 MG tablet; Take 1 tablet by mouth every 8 hours as needed for severe pain (7-10). Do not start before November 10, 2023., Starting Wed11/10/2023, Until Wed12/10/2023 at 2359, Normal 2. Chronic midline thoracic back pain Assessment & Plan: Stable. Continue Percocet 5-325 mg 1 tablet every 8 hours for severe pain. OARRS reviewed and consistent with treatment plan. See other documentation under chronic pain syndrome Orders: - tiZANidine (Zanaflex) 4 MG tablet; take 2 tablets by mouth at bedtime if needed, Normal 3. Primary hypertension Assessment & Plan: Uncontrolled. Restart amlodipine 10 mg daily. Bring blood pressure cuff to the office at next visit Orders: - amLODIPine (Norvasc) 5 MG tablet; Take 1 tablet (5 mg) by mouth daily., Starting Wed11/03/2023, Until Wed11/24/2024, Normal 4. Irritable bowel syndrome with both constipation and diarrhea Assessment & Plan: Stable. Patient will be seeing residential carpet installer 5. Linear scleroderma Assessment & Plan: Patient has been referred to Dr. Benson and is waiting to establish. Patient was advised that this is a priority and she should call to get scheduled 6. Primary insomnia Assessment & Plan: Symptoms are well-controlled on Lunesta 3 mg nightly. However due to associated risks with Lunesta and opioid use. Recommendation that we wean medication to discontinue. Discussed in great length with patient. This does create some anxiety with her due to her being on the medication for quite some time. Advised we will slowly taper discontinue the medication and evaluate as we go. If significant insomnia persists we will need to reevaluate our plan. At this time she will continue the 3 mg nightly to complete the current prescription and then we will alternate Lunesta 2 mg nightly with Lunesta 3 mg nightly x 1 month. We will further decrease Lunesta as tolerated to 2 mg nightly x 4 weeks, then alternate Lunesta 1 mg nightly with 2 mg nightly for 4 weeks, then Lunesta 1 mg nightly x 4 weeks, then Lunesta 1 mg nightly as needed x 1 month then discontinue. Consider referral to sleep medicine if patient has significant insomnia. Orders: - eszopiclone (Lunesta) 2 MG tablet; Every other night, alternate with Lunesta 3 mg Do not start before November 21, 2023., Normal - eszopiclone (Lunesta) 3 MG tablet; Every other night, alternate with Lunesta 2 mg. Do not start before November 21, 2023., Normal 7. Encounter for screening mammogram for malignant neoplasm of breast - Bilateral screening mammogram with tomosynthesis 8. Osteoporosis, unspecified osteoporosis type, unspecified pathological fracture presence Assessment & Plan: Follow-up with osteoporosis clinic as directed Follow up in about 1 month (around 12/03/2023). SUBJECTIVE/OBJECTIVE: BRADFORD Moncada (: 1970) is a 53 y.o. female , Established patient, here for the evaluation of the following chief complaint(s): Medication Check Patient presents for med check and pain management. We have been prescribing her opioid pain medication to bridge her to pain management. Unfortunately pain management has been unable to take over her opioid prescriptions and has had the recommendation of using injections instead of opioids. She has been on opioids for many years for her chronic pain. She has had steroid injections and other injections for treatment of her osteoarthritis in shoulders, hips and back. She has degenerative disc disease and spondylosis of the back. She has participated in physical therapy multiple times. She most recently was remeasured for her lift on her left foot and is waiting to have enough money to get a new shoe, as I was concerned that it might be contributing to her increased low back pain. However there was not that much of a discrepancy that would be contributing. she has linear scleroderma which complicates treatment modalities. Reports that she has had problems with injections due to her connective tissue disorder. She was referred to rheumatology and we are waiting for her to get established. She has trialed in the past for her pain also gabapentin and Lyrica. Has had most success with Percocet 3 times daily. Her Percocet was decreased from 7.5 mg 3 times a day to 5 mg 3 times a day about 1 year ago. It was at that time that we started seeing her and we continued at the decreased dose of 5 mg 3 times a day. She also has a medical marijuana card and uses medical marijuana for her IBS and helps with her anxiety. Her insomnia she states she has been on Lunesta for close to 20 to 30 years and that was the only thing that has been helpful. She is currently on 3 mg nightly. She does have Narcan at home which was previously prescribed. Hypertension-reports that her blood pressure is lower at home in the morning and she hesitates to take the blood pressure medicine. She does state that she has not taken it because she ran out and needs a refill. States her blood pressures at home are usually 110-120/60-70 Osteoporosis-patient has been referred to osteoporosis clinic and followed up with them as directed. She is waiting to hear back on her most recent lab results. They were drawn at her last visit with us however I am unable to see the results in the chart. She is going to reach out to that provider for the results. IBS-reports intermittent constipation diarrhea. States that the medical marijuana does help with her symptoms and her appetite. Denies any recent illnesses or injuries. Prior to Admission medications Medication Sig Start Date End Date Taking? Authorizing Provider amitriptyline (Elavil) 50 MG tablet take 1 tablet by mouth nightly 06/24/23 Yes Juancho Goodman MD amLODIPine (Norvasc) 5 MG tablet Take 1 tablet (5 mg) by mouth daily. 08/12/23 09/02/24 Yes KATHERINE Escalante CNP atorvastatin (Lipitor) 20 MG tablet take 1 tablet by mouth nightly 09/08/23 Yes KATHERINE Escalante CNP buPROPion XL (Wellbutrin XL) 150 MG 24 [...] Provider, dexlansoprazole (Dexilant) [address] capsule take 1 capsule by mouth once daily 07/26/23 Yes KATHERINE Escalante CNP eszopiclone (Lunesta) 3 MG tablet Take 1 tablet (3 mg) by mouth Nightly as needed for sleep. Take immediately before bedtime Do not start before November 21, 2023. 11/21/23 12/21/23 Yes KATHERINE Escalante CNP eszopiclone (Lunesta) 3 MG tablet Take 1 tablet (3 mg) by mouth Nightly as needed for sleep. Take immediately before bedtime Do not start before October 22, 2023. 10/22/23 11/21/23 Yes KATHERINE Escalante CNP naloxone (Narcan) 4 mg/0.1 mL nasal spray ADMINISTER A SINGLE spray INTO ONE NOSTRIL repeat in 3 MINUTES IF... (REFER TO PRESCRIPTION NOTES). 03/04/23 Yes Historical Provider, oxyCODONE-acetaminophen (Percocet) 5-325 MG tablet Take 1 tablet by mouth every 8 hours as needed for severe pain (7-10). Do not start before October 11, 2023. 10/11/23 11/10/23 Yes KATHERINE Escalante CNP tiZANidine (Zanaflex) 4 MG tablet take 2 tablets by mouth at bedtime if needed 08/26/23 Yes KATHERINE Escalante CNP eszopiclone (Lunesta) 3 MG tablet Take 1 tablet (3 mg) by mouth Nightly as needed for sleep. Take immediately before bedtime Do not start before September 22, 2023. 09/22/23 10/22/23 BrittaKATHERINE Gresham CNP Review of Systems Constitutional: Negative. Negative for activity change, chills, fatigue and fever. HENT: Negative. Respiratory: Negative. Cardiovascular: Negative. Gastrointestinal: Negative for abdominal pain, blood in stool, nausea and vomiting. Alternates between constipaton and loose stools- IBS Genitourinary: Negative for difficulty urinating. Musculoskeletal: Positive for back pain and gait problem. Neurological: Negative for dizziness and light-headedness. Psychiatric/Behavioral: Negative for agitation, dysphoric mood, self-injury, sleep disturbance and suicidal ideas. The patient is not nervous/anxious. Vitals: 11/03/23 1522 BP: (!) 179/92 Pulse: 89 Resp: 18 Temp: 37.3 C (99.1 F) TempSrc: Infrared SpO2: 98% Weight: 98 lb 12.8 oz (44.8 kg) Physical Exam Constitutional: General: She is [...] and oriented to person, place, and time. Psychiatric: Mood and Affect: Mood normal. Behavior: Behavior normal. Thought Content: Thought content normal. Judgment: Judgment normal. An electronic signature was used to authenticate this note. KATHERINE Bergman CNP 11/03/2023 6:05 PM documented in this encounter [facility] 11-03-2023 Instructions KATHERINE Escalante CNP - 11/03/2023 3:20 PM EDT Make sure to get scheduled with rheumatology We will continue current dose of percocet at this time. - fisrt fill for next rx on 11/10/2023 We will plan on decreasing Lunesta next prescription with alternating 2 mg and 3 mg nightly 4. Bring blood pressure monitor with you when you come back in. documented in this encounter [facility] 10-26-2023 History of Present illness Narrative Images from the original note were not included. [facility] - [place] [id number] [place] [address] Dept: [phone] Dept Chief Complaint Patient presents with New Patient Pt is here for pain through out her entire body. She states she has been dealing with pain for over 30 yrs. Today her worst pain is in the center of her low back and to the right side. She states she has a soft mass in her back which causes a lot of pain. Pain in her left shoulder which began years ago after she broke it. Does get injections to help with this pain. SUBJECTIVE HPI: [place] Moncada is a 53 y.o. year old here today for evaluation and treatment of multiple chronic pain complaints. LOCATION OF PAIN: low back, right shoulder RADIATES: CONSTANT/INTERMITTENT: constant DURATION: Many years NUMBNESS/TINGLING? Yes in right hagen and foot WEAKNESS? Yes in entire left side URINARY/FECAL INCONTINENCE? yes SADDLE ANESTHESIA? yes INTERFERING WITH SLEEP? yes CURRENT PAIN MEDS: Percocet 5/325 mg TID PRN, tizanidine 4 mg at bedtime; also on amitriptyline 50 mg at bedtime for sleep mainly - Also using medical marijuana ANY SIGNIFICANT SIDE EFFECTS FROM CURRENT PAIN MEDS? no ARE THEY PROVIDING ADEQUATE ANALGESIA? some ARE THEY PROVIDING ADEQUATE FUNCTIONAL IMPROVEMENT? some PAIN MEDS PREVIOUSLY TRIED/FAILED: Multiple opioids, gabapentin, lyrica, tramadol, cymbalta OTHER CURRENT / PREVIOUS TREATMENT Physical therapy -- yes Prior Pain Clinic -- several, including dismissal from Dr Rosario's office due noncompliance with opioid contract Chronic opiates -- yes Previous Pain Procedures -- some previous lumbar RFAs helped but caused significant weakness Patient Active Problem List Diagnosis Date Noted Acquired inequality of length of extremity 10/06/2023 Bulging lumbar disc 07/28/2023 Other secondary scoliosis, lumbar region 06/01/2023 Mass on back 05/20/2023 Low back pain, unspecified 04/29/2023 Skin pimple 04/29/2023 Irritation of left eye 01/06/2023 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 Chronic back pain 11/24/2022 Depression 11/24/2022 Headache 11/24/2022 Irritable bowel syndrome 11/24/2022 Neuropathy 11/24/2022 Anxiety 11/24/2022 Arthritis 11/24/2022 Personal history of malignant neoplasm of breast 11/24/2022 Blindness of left eye 11/24/2022 Body mass index (BMI) of 20 to 24 11/24/2022 Carpal tunnel syndrome 11/24/2022 Leg length discrepancy 11/24/2022 Enchondroma of bone 11/24/2022 Hemorrhoids 11/24/2022 Hypertension 11/24/2022 Iliotibial band syndrome of right side 11/24/2022 Osteoporosis 11/24/2022 Insomnia 11/24/2022 Lumbar radiculopathy 11/24/2022 Medial epicondylitis 11/24/2022 Osteoarthritis of right hip 11/24/2022 Degenerative joint disease (DJD) of lumbar spine 11/24/2022 Vitamin D deficiency 11/24/2022 Gastroesophageal reflux disease 04/29/2022 Hypercholesterolemia 04/29/2022 Spondylosis of lumbar spine 04/29/2022 Systemic sclerosis (HCC) 04/29/2022 Osteopetrosis 04/14/2022 Chronic pain of both upper extremities 02/25/2022 Bursitis of shoulder 02/25/2022 Disorder of rotator cuff 02/25/2022 Pain of left shoulder region 02/25/2022 Pain of right hip joint 01/30/2022 Arthritis of left glenohumeral joint 01/30/2022 Acquired arm deformity, left 08/12/2021 Acquired deformity of left lower leg 08/12/2021 B12 deficiency 08/12/2021 Chronic pain syndrome 08/12/2021 H/O bone scan 02/24/2022 Allergies Allergen Reactions Duloxetine Other Other reaction(s): Chest tightness, Racing Heart Duloxetine Hcl Unknown Lyrica [Pregabalin] Tramadol Other and Unknown Other reaction(s): Other: See Comments Trazodone Other reaction(s): Chest tightness, Other: See Comments, Racing Heart Family History Problem Relation Name Age of Onset Arthritis Mother Kera Diabetes Mother Kera Hyperlipidemia Mother Kera Kidney disease Mother Kera Cirrhosis Father N/a Alcohol abuse Father N/a Past Medical History: Diagnosis Date Anxiety Arthritis Chronic back pain Closed fracture of clavicle 02/25/2022 Depression Disease due to severe acute respiratory syndrome coronavirus 2 (SARS-CoV-2) 03/04/2023 Headache Irritable bowel syndrome Linear scleroderma Neuropathy Social History Socioeconomic History Marital status: Single Spouse name: Not on file Number of children: Not on file Years of education: Not on file Highest education level: Not on file Occupational History Comment: [employer] Tobacco Use Smoking status: Every Day Current packs/day: 1.00 Average packs/day: 1 pack/day for 35.0 years (35.0 ttl pk-yrs) Types: Cigarettes Smokeless tobacco: Never Vaping Use Vaping status: Never Used Substance and Sexual Activity Alcohol use: Not Currently Drug use: Yes Types: Marijuana Comment: CBD with THC Sexual activity: Not Currently Other Topics Concern Not on file Social History Narrative Lives with sister (adoptive family) in [facility].grew up in [place], adopted. Came back to [place] last July 2021, from [place] since 2010.boyfriend about 7 years ago, (were together 15 yrs). Adopted parents sold where she was living and so she moved back here. Adopted parents live up here and biological family. Linear scleroderma since age 6. 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 Social Determinants of Health Financial Resource Strain: [...] Unstable Housing in the Last Year: No Past Surgical History: Procedure Laterality Date ARM SURGERY (HISTORICAL) Left ARM SURGERY (HISTORICAL) Right carpel tunnel COLONOSCOPY ELBOW SURGERY Right Golfers elbow EYE SURGERY Current Outpatient Medications Medication Sig Dispense Refill amitriptyline (Elavil) 50 MG tablet take 1 tablet by mouth nightly 90 tablet 1 amLODIPine (Norvasc) 5 MG tablet Take 1 tablet (5 mg) by mouth daily. 90 tablet 1 atorvastatin (Lipitor) 20 MG tablet take 1 tablet by mouth nightly 90 tablet 1 buPROPion XL (Wellbutrin XL) 150 MG 24 hr tablet Take 150 mg by mouth daily. cetirizine (ZyrTEC ALLERGY) 10 MG tablet 10 mg. choline fenofibrate (Trilipix) [address] capsule Take by mouth. cyanocobalamin (Vitamin B-12) 1000 MCG/ML injection Inject 1,000 mcg into the shoulder, thigh, or buttocks every 30 (thirty) days. dexlansoprazole (Dexilant) [address] capsule take 1 capsule by mouth once daily 90 capsule 1 [START ON 11/21/2023] eszopiclone (Lunesta) 3 MG tablet Take 1 tablet (3 mg) by mouth Nightly as needed for sleep. Take immediately before bedtime Do not start before November 21, 2023. 30 tablet 0 eszopiclone (Lunesta) 3 MG tablet Take 1 tablet (3 mg) by mouth Nightly as needed for sleep. Take immediately before bedtime Do not start before October 22, 2023. 30 tablet 0 naloxone (Narcan) 4 mg/0.1 mL nasal spray ADMINISTER A SINGLE spray INTO ONE NOSTRIL repeat in 3 MINUTES IF... (REFER TO PRESCRIPTION NOTES). oxyCODONE-acetaminophen (Percocet) 5-325 MG tablet Take 1 tablet by mouth every 8 hours as needed for severe pain (7-10). Do not start before October 11, 2023. 90 tablet 0 tiZANidine (Zanaflex) 4 MG tablet take 2 tablets by mouth at bedtime if needed 30 tablet 1 eszopiclone (Lunesta) 3 MG tablet Take 1 tablet (3 mg) by mouth Nightly as needed for sleep. Take immediately before bedtime Do not start before September 22, 2023. 30 tablet 0 No current facility-administered medications for this visit. Review of Systems OBJECTIVE Vitals: 10/26/23 1427 Weight: 98 lb (44.5 kg) Height: 4' 6 (1.372 m) Physical Exam DETAILED MSK/NEURO: Lumbar Spine/Lower Extremity Inspection: No previous surgical scars noted within the thoracolumbar region. There is significant atrophy of the left upper and lower extremity. There is excessive accumulation of subcutaneous adipose tissue on the right side of her thoracic / lumbar back compared to the left. Palpation: Midline Paraspinal - Right Paraspinal - Left Thoracic w/o pain + pain + pain Lumbar w/o pain + pain + pain Range of motion: Flexion Extension Rotation Lateral Bend Lumbar Full - w/o pain Full - w/o pain Full - w/o pain Full - w/o pain Sacroiliac exam: SIJ TTP Right No Left No IMAGING / OTHER STUDIES: 07/08/23 MRI Lumbar Spine Findings: The vertebral bodies are in gross anatomic alignment. The disc spaces are grossly maintained. There is no acute fracture. There are no focal marrow replacing lesions. The conus terminates at approximately the mid L1 level. The paraspinal musculature is grossly unremarkable. At the L1/L2 level, the central canal and foramina are patent. At the L2/L3 level, the central canal and foramina are patent. At the L3/L4 level, the central canal and foramina are patent. Degenerative facet changes are present. At the L4/L5 level, [id number] left and no significant right-sided foraminal narrowing noted. Degenerative facet changes present. Central canal patent. At the L5/S1 level, right foraminal disc bulging present with mild to moderate right-sided foraminal narrowing. The left neural foramen is patent. Central canal is patent. IMPRESSION: Impression: Abnormal asymmetric thickening/enlargement of the subcutaneous soft tissues on the right compared to the left. Foraminal narrowing of the lower lumbar spine. Patent central canal. Question dextroscoliosis. --- 07/09/23 MRI Thoracic Spine FINDINGS: Examination is compromised by motion and noise. The thoracic kyphosis is exaggerated superiorly. There is no listhesis. Mild T3 height loss is indeterminate in age. There is no retropulsion. Endplate degenerative changes and facet arthrosis mildly narrow the spinal canal at T1-T2, T2-T3, T3-T4, T4-T5, T8-T9, and T10-T11. The spinal cord is normal in caliber at all levels. No signal changes are seen, however the sensitivity is significantly decreased. The prevertebral and paravertebral soft tissues appear normal. IMPRESSION: Compromised study. Age-indeterminate T3 compression fracture with mild height loss and no retropulsion. No significant spinal canal stenosis. If acute compression fracture would alter management, consider CT or short-term follow-up MRI. LABS: ASSESSMENT 1. Spondylosis without myelopathy or radiculopathy, lumbar region 2. Linear scleroderma 3. Uncomplicated opioid dependence (HCC) 1) Chronic low back pain -- more right sided and worsened with lumbar extension, lateral rotation and bending, probably mostly facet-mediated. She did get good relief from previous lumbar RFA, reportedly, but says that the procedure made her very weak afterward, so she does not to repeat it. 2) Chronic pain related to severe linear scleroderma... not adequately controlled 3) Opioid dependency PLAN -Reviewed Britta Trinidad's note from 10/06/23, and MRIs of the thoracic and lumbar spine above today - Patient made it clear that she was mainly focused on finding someone to take over prescription of her chronic opioid therapy for her chronic pain. I explained, however, that in general we do not take over prescription of chronic opioid therapy in our interventional pain clinic. Furthermore, I explained that in general I would have my hesitations in her case, as is it is certainly not recommended to use opioids while also using marijuana and Lunesta. With that said, explained that I think it would be best for her to wean off of opioid therapy, or alternatively stop using the marijuana and consider weaning off the Lunesta. Even with that said, though, it would still be up to her PCP to manage such a wean or change. Alternatively, she could still try to get another opinion at another local pain management clinic, which I offered her a list of today. - I did explain that she still may be a candidate for repeat lumbar RFA, but she is not interested in that option at this time No follow-ups on file. documented in this encounter [facility] 10-13-2023 Telephone encounter Note Noted [facility] 10-12-2023 Telephone encounter Note Please keep it open. Patient said she was planning on rescheduling it when I talked to her last. [facility] 10-12-2023 Telephone encounter Note Pt given orders for CT-Lung Screen on 03/04/23. Pt sched for 06/29/23 and NC/NS to appt. No follow up scheduled at this time. Okay to cancel orders? [facility] 10-06-2023 Evaluation + Plan note Associated Problem(s): Chronic pain syndrome Discussion with patient regarding pain management and needing to establish with another pain management provider. She does have a pain management appt in October with Dr. Vera. Patient does also have a medical marijuana card. reports using marijuana in the evenings and usually on the weekends. Reports this helps with her appetite due to her scleroderma. She is well aware of potential risks associated with using additional medications that may be sedative. Oarrs reviewed. Close follow-up in 1 month. [facility] 10-06-2023 Miscellaneous Notes Associated Problem(s): Chronic pain syndrome Discussion with patient regarding pain management and needing to establish with another pain management provider. She does have a pain management appt in October with Dr. Vera. Patient does also have a medical marijuana card. reports using marijuana in the evenings and usually on the weekends. Reports this helps with her appetite due to her scleroderma. She is well aware of potential risks associated with using additional medications that may be sedative. Oarrs reviewed. Close follow-up in 1 month. Associated Problem(s): Linear scleroderma Has been referred to rheumatology. Is waiting to establish. Was referred to Dr. Benson Associated Problem(s): Degenerative joint disease (DJD) of lumbar spine Continue current medications. Associated Problem(s): Insomnia Symptoms well-controlled with Lunesta 3 mg nightly Associated Problem(s): Osteoporosis Draw labs today for the osteoporosis clinic. Follow-up with them as directed Associated Problem(s): Hypertension Initial and repeat blood pressure elevated. Patient home blood pressure readings have been good. Patient advised to continue to take amlodipine 5 mg daily. Report home blood pressure readings to office if they are greater than 140/90. Associated Problem(s): Hypercholesterolemia Controlled. Continue atorvastatin 20 mg nightly. documented in this encounter [facility] [employer] 10-06-2023 Miscellaneous Notes Associated Problem(s): Chronic pain syndrome Discussion with patient regarding pain management and needing to establish with another pain management provider. She does have a pain management appt in October with Dr. Vera. Patient does also have a medical marijuana card. reports using marijuana in the evenings and usually on the weekends. Reports this helps with her appetite due to her scleroderma. She is well aware of potential risks associated with using additional medications that may be sedative. Oarrs reviewed. Close follow-up in 1 month. Associated Problem(s): Linear scleroderma Has been referred to rheumatology. Is waiting to establish. Was referred to Dr. Benson Associated Problem(s): Degenerative joint disease (DJD) of lumbar spine Continue current medications. Associated Problem(s): Insomnia Symptoms well-controlled with Lunesta 3 mg nightly Associated Problem(s): Osteoporosis Draw labs today for the osteoporosis clinic. Follow-up with them as directed Associated Problem(s): Hypertension Initial and repeat blood pressure elevated. Patient home blood pressure readings have been good. Patient advised to continue to take amlodipine 5 mg daily. Report home blood pressure readings to office if they are greater than 140/90. Associated Problem(s): Hypercholesterolemia Controlled. Continue atorvastatin 20 mg nightly. Addended by: BRITTA TRINIDAD on: 10/07/2023 05:12 PM Modules accepted: Level of Service documented in this encounter [facility] 10-06-2023 Evaluation + Plan note Associated Problem(s): Linear scleroderma Has been referred to rheumatology. Is waiting to establish. Was referred to Dr. Benson [facility] 10-06-2023 Evaluation + Plan note Associated Problem(s): Degenerative joint disease (DJD) of lumbar spine Continue current medications. [facility] 10-06-2023 Evaluation + Plan note Associated Problem(s): Insomnia Symptoms well-controlled with Lunesta 3 mg nightly [facility] 10-06-2023 Evaluation + Plan note Associated Problem(s): Osteoporosis Draw labs today for the osteoporosis clinic. Follow-up with them as directed [facility] 10-06-2023 Evaluation + Plan note Associated Problem(s): Hypertension Initial and repeat blood pressure elevated. Patient home blood pressure readings have been good. Patient advised to continue to take amlodipine 5 mg daily. Report home blood pressure readings to office if they are greater than 140/90. T [facility] 10-06-2023 Evaluation + Plan note Associated Problem(s): Hypercholesterolemia Controlled. Continue atorvastatin 20 mg nightly. T [facility] 10-06-2023 History of Present illness Narrative Images from the original note were not included. 10/06/2023 Paris Moncada (: 1970) is a 53 y.o. female , Established patient, here for evaluation of the following chief complaint(s): Follow-up ASSESSMENT/PLAN: 1. Chronic pain syndrome Assessment & Plan: Discussion with patient regarding pain management and needing to establish with another pain management provider. She does have a pain management appt in October with Dr. Vera. Patient does also have a medical marijuana card. reports using marijuana in the evenings and usually on the weekends. Reports this helps with her appetite due to her scleroderma. She is well aware of potential risks associated with using additional medications that may be sedative. Oarrs reviewed. Close follow-up in 1 month. Orders: - oxyCODONE-acetaminophen (Percocet) 5-325 MG tablet; Take 1 tablet by mouth every 8 hours as needed for severe pain (7-10). Do not start before October 11, 2023., Starting 10/11/2023, Until Wed11/10/2023 at 2359, Normal 2. Insomnia, unspecified type Assessment & Plan: Symptoms well-controlled with Lunesta 3 mg nightly 3. Linear scleroderma Assessment & Plan: Has been referred to rheumatology. Is waiting to establish. Was referred to Dr. Benson 4. Primary hypertension Assessment & Plan: Initial and repeat blood pressure elevated. Patient home blood pressure readings have been good. Patient advised to continue to take amlodipine 5 mg daily. Report home blood pressure readings to office if they are greater than 140/90. 5. Osteoporosis, unspecified osteoporosis type, unspecified pathological fracture presence Assessment & Plan: Draw labs today for the osteoporosis clinic. Follow-up with them as directed 6. Other osteoarthritis of spine, lumbar region Assessment & Plan: Continue current medications. 7. Hypercholesterolemia Assessment & Plan: Controlled. Continue atorvastatin 20 mg nightly. Follow up in about 1 month (around 11/06/2023). SUBJECTIVE/OBJECTIVE: BRADFORD Moncada (: 1970) is a 53 y.o. female , Established patient, here for the evaluation of the following chief complaint(s): Follow-up 1. 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 She has been on Percocet for many years for her chronic pain. She has done steroid injections in the past, most recently in her right shoulder but it is limited in giving her relief. She reports she has had other pain injections but developed complications from them due to her scleroderma. She uses medical marijuana to help with her digestion and appetite. She has completed physical therapy multiple times . most recently a couple months ago. She was referred to pain management and has an appointment in October to establish. We are bridging her to the pain management appt. 2. Insomnia, Doing ok with lunesta. Denies any adverse effects of the medication. 3. Linear scleroderma Stable. Is currently not established. Referred Dr. Benson. States she still has to call and schedule with them. 4. Primary hypertension Home blood pressure readings have been good. Is taking Amlodipine 5 mg daily. 5. Osteoporosis, Has seen the osteoporosis clinic, was supposed to get some labs drawn for them but has not done so. We will go ahead and get them done today for her. 6. Other osteoarthritis of spine, lumbar region Reports chronic back pain. No new changes in bowel or bladder. 7. Hypercholesterolemia Reports taking atorvastatin 20 mg without any issues. Prior to Admission medications Medication Sig Start Date End Date Taking? Authorizing Provider amitriptyline (Elavil) 50 MG tablet take 1 tablet by mouth nightly 06/24/23 Juancho Goodman MD amLODIPine (Norvasc) 5 MG tablet Take 1 tablet (5 mg) by mouth daily. 08/12/23 09/02/24 KATHERINE Escalante CNP atorvastatin (Lipitor) 20 MG tablet take 1 tablet by mouth nightly 09/08/23 KATHERINE Escalante CNP buPROPion XL (Wellbutrin XL) 150 MG 24 hr tablet Take 150 mg by mouth daily. 07/21/22 Historical Provider, cetirizine (ZyrTEC ALLERGY) 10 MG tablet 10 mg. 04/30/22 Historical Provider, choline fenofibrate (Trilipix) [address] capsule Take by mouth. 11/24/21 Historical Provider, cyanocobalamin (Vitamin B-12) 1000 MCG/ML injection Inject 1,000 mcg into the shoulder, thigh, or buttocks every 30 (thirty) days. 08/12/21 Historical Provider, dexlansoprazole (Dexilant) [address] capsule take 1 capsule by mouth once daily 07/26/23 KATHERINE Escalante CNP eszopiclone (Lunesta) 3 MG tablet Take 1 tablet (3 mg) by mouth Nightly as needed for sleep. Take immediately before bedtime Do not start before November 21, 2023. 11/21/23 12/21/23 KATHERINE Escalante CNP eszopiclone (Lunesta) 3 MG tablet Take 1 tablet (3 mg) by mouth Nightly as needed for sleep. Take immediately before bedtime Do not start before October 22, 2023. 10/22/23 11/21/23 KATHERINE Escalante CNP eszopiclone (Lunesta) 3 MG tablet Take 1 tablet (3 mg) by mouth Nightly as needed for sleep. Take immediately before bedtime Do not start before September 22, 2023. 09/22/23 10/22/23 KATHERINE Escalante CNP naloxone (Narcan) 4 mg/0.1 mL nasal spray ADMINISTER A SINGLE spray INTO ONE NOSTRIL repeat in 3 MINUTES IF... (REFER TO PRESCRIPTION NOTES). 03/04/23 Historical Provider, oxyCODONE-acetaminophen (Percocet) 5-325 MG tablet Take 1 tablet by mouth every 8 hours as needed for severe pain (7-10). Do not start before September 11, 2023. 09/11/23 10/11/23 KATHERINE Escalante CNP tiZANidine (Zanaflex) 4 MG tablet take 2 tablets by mouth at bedtime if needed 08/26/23 KATHERINE Escalante CNP Review of Systems Constitutional: Negative for activity change, chills, fatigue and fever. HENT: Negative. Respiratory: Negative. Cardiovascular: Negative. Gastrointestinal: Negative for abdominal pain, nausea and vomiting. Alternates between constipaton and loose stools- IBS Genitourinary: Negative for difficulty urinating. Musculoskeletal: Positive for back pain and gait problem. Neurological: Negative for dizziness and light-headedness. Psychiatric/Behavioral: Negative for agitation, dysphoric mood, self-injury, sleep disturbance and suicidal ideas. The patient is not nervous/anxious. Vitals: 10/06/23 1518 10/06/23 1551 BP: (!) 171/90 (!) 180/96 Pulse: 78 80 Resp: 24 SpO2: 98% Weight: 96 lb 3.2 oz (43.6 kg) Physical Exam Constitutional: General: She is [...] and oriented to person, place, and time. Psychiatric: Mood and Affect: Mood normal. Behavior: Behavior normal. Thought Content: Thought content normal. Judgment: Judgment normal. An electronic signature was used to authenticate this note. KATHERINE Bergman CNP 10/06/2023 4:34 PM Patient was identified by name and Date of . Will send in numbers via [employer] documented in this encounter [facility] [employer] 10-06-2023 History of Present illness Narrative Images from the original note were not included. 10/06/2023 Paris Moncada (: 1970) is a 53 y.o. female , Established patient, here for evaluation of the following chief complaint(s): Follow-up ASSESSMENT/PLAN: 1. Chronic pain syndrome Assessment & Plan: Discussion with patient regarding pain management and needing to establish with another pain management provider. She does have a pain management appt in October with Dr. Vera. Patient does also have a medical marijuana card. reports using marijuana in the evenings and usually on the weekends. Reports this helps with her appetite due to her scleroderma. She is well aware of potential risks associated with using additional medications that may be sedative. Oarrs reviewed. Close follow-up in 1 month. Orders: - oxyCODONE-acetaminophen (Percocet) 5-325 MG tablet; Take 1 tablet by mouth every 8 hours as needed for severe pain (7-10). Do not start before October 11, 2023., Starting 10/11/2023, Until Wed11/10/2023 at 2359, Normal 2. Insomnia, unspecified type Assessment & Plan: Symptoms well-controlled with Lunesta 3 mg nightly 3. Linear scleroderma Assessment & Plan: Has been referred to rheumatology. Is waiting to establish. Was referred to Dr. Benson 4. Primary hypertension Assessment & Plan: Initial and repeat blood pressure elevated. Patient home blood pressure readings have been good. Patient advised to continue to take amlodipine 5 mg daily. Report home blood pressure readings to office if they are greater than 140/90. 5. Osteoporosis, unspecified osteoporosis type, unspecified pathological fracture presence Assessment & Plan: Draw labs today for the osteoporosis clinic. Follow-up with them as directed 6. Other osteoarthritis of spine, lumbar region Assessment & Plan: Continue current medications. 7. Hypercholesterolemia Assessment & Plan: Controlled. Continue atorvastatin 20 mg nightly. Follow up in about 1 month (around 11/06/2023). SUBJECTIVE/OBJECTIVE: BRADFORD Moncada (: 1970) is a 53 y.o. female , Established patient, here for the evaluation of the following chief complaint(s): Follow-up 1. 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 She has been on Percocet for many years for her chronic pain. She has done steroid injections in the past, most recently in her right shoulder but it is limited in giving her relief. She reports she has had other pain injections but developed complications from them due to her scleroderma. She uses medical marijuana to help with her digestion and appetite. She has completed physical therapy multiple times . most recently a couple months ago. She was referred to pain management and has an appointment in October to establish. We are bridging her to the pain management appt. 2. Insomnia, Doing ok with lunesta. Denies any adverse effects of the medication. 3. Linear scleroderma Stable. Is currently not established. Referred Dr. Benson. States she still has to call and schedule with them. 4. Primary hypertension Home blood pressure readings have been good. Is taking Amlodipine 5 mg daily. 5. Osteoporosis, Has seen the osteoporosis clinic, was supposed to get some labs drawn for them but has not done so. We will go ahead and get them done today for her. 6. Other osteoarthritis of spine, lumbar region Reports chronic back pain. No new changes in bowel or bladder. 7. Hypercholesterolemia Reports taking atorvastatin 20 mg without any issues. Prior to Admission medications Medication Sig Start Date End Date Taking? Authorizing Provider amitriptyline (Elavil) 50 MG tablet take 1 tablet by mouth nightly 06/24/23 Juancho Goodman MD amLODIPine (Norvasc) 5 MG tablet Take 1 tablet (5 mg) by mouth daily. 08/12/23 09/02/24 KATHERINE Escalante CNP atorvastatin (Lipitor) 20 MG tablet take 1 tablet by mouth nightly 09/08/23 KATHERINE Escalante CNP buPROPion XL (Wellbutrin XL) 150 MG 24 hr tablet Take 150 mg by mouth daily. 07/21/22 Historical Provider, cetirizine (ZyrTEC ALLERGY) 10 MG tablet 10 mg. 04/30/22 Historical Provider, MD galindo fenofibrate (Trilipix) [address] capsule Take by mouth. 11/24/21 Historical Provider, cyanocobalamin (Vitamin B-12) 1000 MCG/ML injection Inject 1,000 mcg into the shoulder, thigh, or buttocks every 30 (thirty) days. 08/12/21 Historical Provider, dexlansoprazole (Dexilant) [address] capsule take 1 capsule by mouth once daily 07/26/23 KATHERINE Escalante CNP eszopiclone (Lunesta) 3 MG tablet Take 1 tablet (3 mg) by mouth Nightly as needed for sleep. Take immediately before bedtime Do not start before November 21, 2023. 11/21/23 12/21/23 KATHERINE Escalante CNP eszopiclone (Lunesta) 3 MG tablet Take 1 tablet (3 mg) by mouth Nightly as needed for sleep. Take immediately before bedtime Do not start before October 22, 2023. 10/22/23 11/21/23 KATHERINE Escalante CNP eszopiclone (Lunesta) 3 MG tablet Take 1 tablet (3 mg) by mouth Nightly as needed for sleep. Take immediately before bedtime Do not start before September 22, 2023. 09/22/23 10/22/23 KATHERINE Escalante CNP naloxone (Narcan) 4 mg/0.1 mL nasal spray ADMINISTER A SINGLE spray INTO ONE NOSTRIL repeat in 3 MINUTES IF... (REFER TO PRESCRIPTION NOTES). 03/04/23 Historical Provider, oxyCODONE-acetaminophen (Percocet) 5-325 MG tablet Take 1 tablet by mouth every 8 hours as needed for severe pain (7-10). Do not start before September 11, 2023. 09/11/23 10/11/23 KATHERINE Escalante CNP tiZANidine (Zanaflex) 4 MG tablet take 2 tablets by mouth at bedtime if needed 08/26/23 KATHERINE Escalante CNP Review of Systems Constitutional: Negative for activity change, chills, fatigue and fever. HENT: Negative. Respiratory: Negative. Cardiovascular: Negative. Gastrointestinal: Negative for abdominal pain, nausea and vomiting. Alternates between constipaton and loose stools- IBS Genitourinary: Negative for difficulty urinating. Musculoskeletal: Positive for back pain and gait problem. Neurological: Negative for dizziness and light-headedness. Psychiatric/Behavioral: Negative for agitation, dysphoric mood, self-injury, sleep disturbance and suicidal ideas. The patient is not nervous/anxious. Vitals: 10/06/23 1518 10/06/23 1551 BP: (!) 171/90 (!) 180/96 Pulse: 78 80 Resp: 24 SpO2: 98% Weight: 96 lb 3.2 oz (43.6 kg) Physical Exam Constitutional: General: She is [...] and oriented to person, place, and time. Psychiatric: Mood and Affect: Mood normal. Behavior: Behavior normal. Thought Content: Thought content normal. Judgment: Judgment normal. An electronic signature was used to authenticate this note. KATHERINE Bergman CNP 10/06/2023 4:34 PM Patient was identified by name and Date of . Will send in numbers via [employer]t documented in this encounter [facility] 10-06-2023 Note Addended by: BRITTA BOOGIE on: 10/07/2023 05:12 PM Modules accepted: Level of Service [facility] 09-21-2023 Telephone encounter Note S: Patient spoke with CAC nurse regarding patient stating she needs to pickup driver her Rx for Luneta tonight. B: Onset of symptoms/concern began today. A: Patient states provider wrote prescription for Lunesta 3 mg to be started 09/21. Patient states she needs it to sleep tonight. States she cannot sleep without it. R: Advised patient that there isn't anything that can be done after hours for a controlled subsetance and the Rx was written not to begin before 09/21. Advised she can pickup driver the medication at her pharmacy tomorrow. Patient understands care advice. No further needs at this time. Patient instructed to call back with new or worsening symptoms. Reason for Disposition Caller has medicine question only, adult not sick, AND triager answers question Protocols used: Medication Question [id number] [facility] 09-21-2023 Miscellaneous Notes S: Patient spoke with CAC nurse regarding patient stating she needs to pickup driver her Rx for Luneta tonight. B: Onset of symptoms/concern began today. A: Patient states provider wrote prescription for Lunesta 3 mg to be started 09/21. Patient states she needs it to sleep tonight. States she cannot sleep without it. R: Advised patient that there isn't anything that can be done after hours for a controlled subsetance and the Rx was written not to begin before 09/21. Advised she can pickup driver the medication at her pharmacy tomorrow. Patient understands care advice. No further needs at this time. Patient instructed to call back with new or worsening symptoms. Reason for Disposition Caller has medicine question only, adult not sick, AND triager answers question Protocols used: Medication Question [id number] documented in this encounter [facility] 09-09-2023 Evaluation + Plan note Associated Problem(s): Hypertension Initial and repeat blood pressure elevated 165/87. Patient reports taking her blood pressure medicine this morning amlodipine 5 mg daily. She states that her home blood pressure readings are much better usually in the 130s over 80s. Will have her continue to monitor her blood pressures at home and bring them to the office at the next visit. She is to call us if it is over 140/90 [facility] 09-09-2023 Miscellaneous Notes Associated Problem(s): Hypertension Initial and repeat blood pressure elevated 165/87. Patient reports taking her blood pressure medicine this morning amlodipine 5 mg daily. She states that her home blood pressure readings are much better usually in the 130s over 80s. Will have her continue to monitor her blood pressures at home and bring them to the office at the next visit. She is to call us if it is over 140/90 Associated Problem(s): Insomnia Symptoms well-controlled on Lunesta 3 mg nightly as needed for sleep. OARRS reviewed and consistent with treatment plan. CS MA in place. Associated Problem(s): Linear scleroderma Referral placed to rheumatology Associated Problem(s): Chronic pain syndrome Discussion with patient regarding pain management and needing to establish with another pain management provider. She does have a pain management appt in October with Dr. Vera. Patient does also have a medical marijuana card. No reports using marijuana in the evenings and usually on the weekends. Reports this helps with her appetite due to her scleroderma. She is well aware of potential risks associated with using additional medications that may be sedative. Oarrs reviewed. Close follow-up in 1 month. documented in this encounter [facility] 09-09-2023 Evaluation + Plan note Associated Problem(s): Insomnia Symptoms well-controlled on Lunesta 3 mg nightly as needed for sleep. OARRS reviewed and consistent with treatment plan. CS MA in place. [facility] 09-09-2023 Evaluation + Plan note Associated Problem(s): Linear scleroderma Referral placed to rheumatology [facility] 09-09-2023 Evaluation + Plan note Associated Problem(s): Chronic pain syndrome Discussion with patient regarding pain management and needing to establish with another pain management provider. She does have a pain management appt in October with Dr. Vera. Patient does also have a medical marijuana card. No reports using marijuana in the evenings and usually on the weekends. Reports this helps with her appetite due to her scleroderma. She is well aware of potential risks associated with using additional medications that may be sedative. Oarrs reviewed. Close follow-up in 1 month. [facility] 09-09-2023 History of Present illness Narrative Patient was identified by name and Date of . Patients blood pressure was still elevated a second time. Advised her to send in blood pressure numbers in 1-2 weeks. Images from the original note were not included. 09/09/2023 Paris Moncada (: 1970) is a 53 y.o. female , Established patient, here for evaluation of the following chief complaint(s): Follow-up ASSESSMENT/PLAN: 1. Chronic pain syndrome Assessment & Plan: Discussion with patient regarding pain management and needing to establish with another pain management provider. She does have a pain management appt in October with Dr. Vera. Patient does also have a medical marijuana card. No reports using marijuana in the evenings and usually on the weekends. Reports this helps with her appetite due to her scleroderma. She is well aware of potential risks associated with using additional medications that may be sedative. Oarrs reviewed. Close follow-up in 1 month. Orders: - oxyCODONE-acetaminophen (Percocet) 5-325 MG tablet; Take 1 tablet by mouth every 8 hours as needed for severe pain (7-10). Do not start before September 11, 2023., Starting 09/11/2023, Until 10/11/2023 at 2359, Normal 2. Insomnia, unspecified type Assessment & Plan: Symptoms well-controlled on Lunesta 3 mg nightly as needed for sleep. OARRS reviewed and consistent with treatment plan. CS MA in place. Orders: - eszopiclone (Lunesta) 3 MG tablet; Take 1 tablet (3 mg) by mouth Nightly as needed for sleep. Take immediately before bedtime Do not start before November 21, 2023., Starting 11/21/2023, Until 12/21/2023 at 2359, Normal - eszopiclone (Lunesta) 3 MG tablet; Take 1 tablet (3 mg) by mouth Nightly as needed for sleep. Take immediately before bedtime Do not start before October 22, 2023., Starting Wed10/22/2023, Until 11/21/2023 at 2359, Normal - eszopiclone (Lunesta) 3 MG tablet; Take 1 tablet (3 mg) by mouth Nightly as needed for sleep. Take immediately before bedtime Do not start before September 22, 2023., Starting 09/22/2023, Until Wed10/22/2023 at 2359, Normal 3. Linear scleroderma Assessment & Plan: Referral placed to rheumatology Orders: - External referral to Rheumatology 4. Primary hypertension Assessment & Plan: Initial and repeat blood pressure elevated 165/87. Patient reports taking her blood pressure medicine this morning amlodipine 5 mg daily. She states that her home blood pressure readings are much better usually in the 130s over 80s. Will have her continue to monitor her blood pressures at home and bring them to the office at the next visit. She is to call us if it is over 140/90 Follow up in about 1 month (around 10/10/2023) for with primary care provider as scheduled. SUBJECTIVE/OBJECTIVE: HPI - Paris Moncada (: 1970) is a 53 y.o. female , Established patient, here for the evaluation of the following chief complaint(s): Follow-up Presents for follow-up for chronic pain. We have been bridging her to a painting manager but have had difficulty finding pain management provider. She does have an appointment scheduled with pain management in October. Finished the 3 sessions of physical therapy. Did not have significant improvement . Is waiting on left lift for shoe (has to wait to get money) She does have a medical marijuana card reports that the marijuana she uses after work to help with pain and appetite. 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 Brother and his are currently living with her right now in a 1 room apartment, so its been stressful. Denies any recent illnesses or injuries since we saw her last. She did go to the osteoporosis clinic, is needing to get some labs done prior to her next DEXA scan. She questions why they keep doing the DEXA scan on her left side which is affected by the scleroderma and not on the right side. For her pain she takes Percocet 5-325 mg every 8 hours as needed for severe pain. Also uses tizanidine 4 mg at bedtime if needed, amitriptyline 50 mg nightly. Reports having tried Lyrica and gabapentin in the past without significant improvement in her pain. Prior to Admission medications Medication Sig Start Date End Date Taking? Authorizing Provider amitriptyline (Elavil) 50 MG tablet take 1 tablet by mouth nightly 06/24/23 Yes Juancho Goodman MD amLODIPine (Norvasc) 5 MG tablet Take 1 tablet (5 mg) by mouth daily. 08/12/23 09/02/24 Yes KATHERINE Escalante CNP atorvastatin (Lipitor) 20 MG tablet take 1 tablet by mouth nightly 09/08/23 Yes KATHERINE Escalante CNP buPROPion XL (Wellbutrin XL) 150 MG 24 [...] Provider, dexlansoprazole (Dexilant) [address] capsule take 1 capsule by mouth once daily 07/26/23 Yes KATHERINE Escalante CNP eszopiclone (Lunesta) 3 MG tablet Take 1 tablet (3 mg) by mouth Nightly as needed for sleep. Take immediately before bedtime 08/23/23 09/22/23 Yes KATHERINE Escalante CNP naloxone (Narcan) 4 mg/0.1 mL nasal spray ADMINISTER A SINGLE spray INTO ONE NOSTRIL repeat in 3 MINUTES IF... (REFER TO PRESCRIPTION NOTES). 03/04/23 Yes Historical Provider, oxyCODONE-acetaminophen (Percocet) 5-325 MG tablet Take 1 tablet by mouth every 8 hours as needed for severe pain (7-10). 08/12/23 09/11/23 Yes KATHERINE Escalante CNP tiZANidine (Zanaflex) 4 MG tablet take 2 tablets by mouth at bedtime if needed 08/26/23 Yes KATHERINE Escalante CNP atorvastatin (Lipitor) 20 MG tablet Take 1 tablet (20 mg) by mouth Nightly. 03/09/23 09/08/23 KATHERINE Escalante CNP Review of Systems Constitutional: Negative for activity change, chills, fatigue and fever. HENT: Negative. Respiratory: Negative. Cardiovascular: Negative. Gastrointestinal: Negative for abdominal pain, nausea and vomiting. Alternates between constipaton and loose stools- IBS Genitourinary: Negative for difficulty urinating. Musculoskeletal: Positive for back pain and gait problem. Neurological: Negative for dizziness and light-headedness. Psychiatric/Behavioral: Negative for agitation, dysphoric mood, self-injury, sleep disturbance and suicidal ideas. The patient is not nervous/anxious. Vitals: 09/09/23 1528 BP: (!) 165/87 Pulse: 98 Resp: 26 Temp: 36 C (96.8 F) TempSrc: Infrared SpO2: 99% Weight: 98 lb (44.5 kg) Physical Exam Constitutional: General: She is [...] and oriented to person, place, and time. Psychiatric: Mood and Affect: Mood normal. Behavior: Behavior normal. Thought Content: Thought content normal. Judgment: Judgment normal. Comments: Patient was somewhat tearful today when talking about pain management and trying to find a provider. Reports that she is in a lot of pain on a daily basis and has difficulty doing her ADLs. An electronic signature was used to authenticate this note. KATHERINE Bergman CNP 09/09/2023 5:51 PM documented in this encounter [facility] 09-08-2023 Telephone encounter Note Reviewed chart. Refill appropriate. RX sent. [facility] 09-08-2023 Miscellaneous Notes Reviewed chart. Refill appropriate. RX sent. Prescription Request: Last medication check: 08/12/2023 Last physical exam: 03/04/2023 Next scheduled appointment: 09/09/2023 Last date of refill on this medication: 03/09/2023 documented in this encounter [facility] 09-08-2023 Telephone encounter Note Prescription Request: Last medication check: 08/12/2023 Last physical exam: 03/04/2023 Next scheduled appointment: 09/09/2023 Last date of refill on this medication: 03/09/2023 [facility] 08-26-2023 Telephone encounter Note Reviewed chart. Refill appropriate. RX sent. [facility] 08-26-2023 Miscellaneous Notes Reviewed chart. Refill appropriate. RX sent. Prescription Request: Last medication check: 08/12/23 Last physical exam: 03/04/23 Next scheduled appointment: 09/09/23 Last date of refill on this medication 07/13/23 documented in this encounter [facility] 08-26-2023 Telephone encounter Note Prescription Request: Last medication check: 08/12/23 Last physical exam: 03/04/23 Next scheduled appointment: 09/09/23 Last date of refill on this medication 07/13/23 [facility] 08-23-2023 Telephone encounter Note Reviewed chart. Refill appropriate. RX sent. OARRS reviewed and consistent with treatment plan. JESSE HUDSON in place [facility] 08-23-2023 Miscellaneous Notes Reviewed chart. Refill appropriate. RX sent. OARRS reviewed and consistent with treatment plan. JESSE HUDSON in place Prescription Request: Last medication check: 12/07/22 Last physical exam: 03/04/23 Next scheduled appointment: 09/09/23 Last date of refill on this medication 07/23/23 S: Patient spoke with CAC nurse regarding medication refill- callback B: Onset of symptoms/concern today A: Patient states she is out of her eszopiclone 3 mg after Wednesday. Requesting an urgent refill. R: Patient advised that message will be sent to office for review for Wednesday as it is not an urgent medication. Reason for Disposition Caller has NON-URGENT medicine question about med that PCP prescribed and triager unable to answer question Protocols used: Medication Refill and Renewal [id number] S: Patient spoke with [facility] nurse regarding medication refill. B: Onset of symptoms/concern: eszopiclone 3 mg A: Patient completely out of medication and states she can't sleep without it. R: Patient advised message would be sent to provider for follow up, allergies and pharmacy verified, medication pended for authorization. Reason for Disposition Prescription refill request for NON-ESSENTIAL medicine (i.e., no harm to patient if med not taken) and triager unable to refill per department policy Protocols used: Medication Refill and Renewal [id number] documented in this encounter [facility] [employer] 08-23-2023 Telephone encounter Note Prescription Request: Last medication check: 12/07/22 Last physical exam: 03/04/23 Next scheduled appointment: 09/09/23 Last date of refill on this medication 07/23/23 [facility] 08-20-2023 Telephone encounter Note S: Patient spoke with [facility] nurse regarding medication refill- callback B: Onset of symptoms/concern today A: Patient states she is out of her eszopiclone 3 mg after Wednesday. Requesting an urgent refill. R: Patient advised that message will be sent to office for review for Wednesday as it is not an urgent medication. Reason for Disposition Caller has NON-URGENT medicine question about med that PCP prescribed and triager unable to answer question Protocols used: Medication Refill and Renewal [id number] [facility] 08-20-2023 Telephone encounter Note S: Patient spoke with [facility] nurse regarding medication refill. B: Onset of symptoms/concern: eszopiclone 3 mg A: Patient completely out of medication and states she can't sleep without it. R: Patient advised message would be sent to provider for follow up, allergies and pharmacy verified, medication pended for authorization. Reason for Disposition Prescription refill request for NON-ESSENTIAL medicine (i.e., no harm to patient if med not taken) and triager unable to refill per department policy Protocols used: Medication Refill and Renewal [id number] [facility] 08-12-2023 Evaluation + Plan note Associated Problem(s): Osteopetrosis Follow-up with osteoporosis clinic [facility] 08-12-2023 Evaluation + Plan note Associated Problem(s): Osteoporosis Follow-up with osteoporosis clinic [facility] 08-12-2023 Miscellaneous Notes Associated Problem(s): Osteopetrosis Follow-up with osteoporosis clinic Associated Problem(s): Osteoporosis Follow-up with osteoporosis clinic 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 Associated Problem(s): Chronic pain syndrome Had long discussion with patient regarding pain management and needing to establish with another pain management provider. She is going to reach out to some pain management providers that her insurance recommended and see if they will manage her pain with her also being on medical marijuana. I advised patient that I will taper discontinue the oxycodone if she is unable to establish with another pain management provider within the next 2 months. Also discussed possible options for treatment with buprenorphine for opioid dependence through another provider. Oarrs reviewed and consistent with current treatment plan. Associated Problem(s): Hypertension Uncontrolled. Blood pressure 179/91. Patient states that she ran out of her blood pressure medicine. 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 [facility] 08-12-2023 Evaluation + Plan note Associated Problem(s): Chronic pain syndrome Had long discussion with patient regarding pain management and needing to establish with another pain management provider. She is going to reach out to some pain management providers that her insurance recommended and see if they will manage her pain with her also being on medical marijuana. I advised patient that I will taper discontinue the oxycodone if she is unable to establish with another pain management provider within the next 2 months. Also discussed possible options for treatment with buprenorphine for opioid dependence through another provider. Oarrs reviewed and consistent with current treatment plan. [facility] 08-12-2023 History of Present illness Narrative Images from the original note were not included. [facility] [address] [place] [address] [facility] [id number] Dept: [phone] Dept Loc: [phone] Visit type: New patient Reason for Visit: Osteoporosis Assessment and Plan 1. Scleroderma (HCC) 2. Age-related osteoporosis without current pathological fracture - [facility] Osteoporosis - DEXA bone density axial skeleton - Vitamin D Deficiency Screening (Vit D 25) - Comprehensive metabolic panel - PTH, intact - Magnesium - Phosphorus 3. Vitamin D deficiency - DEXA bone density axial skeleton - Vitamin D Deficiency Screening (Vit D 25) - Comprehensive metabolic panel - PTH, intact - Magnesium - Phosphorus 4. Fatigue, unspecified type - TSH FRAX: will calculate pending dxa. Osteoporosis Treatment Recommendations: Lifestyle modifications were discussed as part of treatment for low bone mineral density. I recommended optimizing calcium to 1200mg daily in divided doses, preferably through diet. I also recommended optimizing vitamin D supplementation, patient will be guided on dosage adjustment pending labs if needed. We discussed limiting alcohol, caffeine and pop. Smoking cessation was advised. I recommended adding prunes into daily diet for bone health. Safe weight bearing exercise recommended for 30 minutes at least three times weekly. Fall prevention was discussed. I do not have DXA scan results, so I did not discuss medication with patient. Staff contacted [facility] who is supposed to send 01/2022 DXA scan. Labs ordered, repeat DXA ordered for 01/2024. All questions were answered and pt agrees with plan. Follow up will be determined pending labs and dxa. Advised pt on the following: Adequate dietary calcium intake of 2531-3180 mg per day through diet and/or supplements. Vitamin D3 6357-0919 IU daily. Participate in weight bearing exercises. Optimize home environment to minimize falls. Ensure good vision through regular eye exams. Avoid tobacco use and excessive alcohol consumption. Avoid use of steroids unless clinically necessary. Options for medical therapy discussed. These include bisphosphonates (oral or IV), denusomab, romosozumab, and parathyroid hormone. Discussed pros and cons of each option. Discussed appropriate administration. Discussed possible side effects. Follow up if symptoms worsen or fail to improve, for pending labs and dxa. Subjective The patient is referred for: Referred by Britta Trinidad AP*Osteoporosis The osteopenia/osteoporosis was first diagnosed on: Fall 2022 Risk factors for osteoporosis in the patient are history of the following postmenopausal estrogen deficiency, Tobacco use. Fracture history: Clavicle fracture 02/2022, a dog ran into her causing her to fall. Family history of OP: Unknown, pt is adopted Hip fracture in parent: unknown, pt is adopted Rheumatoid arthritis: Yes Steroid use of at least 3 months: Yes Current smoking: Yes Alcohol use: No Secondary osteoporosis: Yes long term care phlebotomist prednisone for scleroderma. Menopause: Age ~48 HRT use: None DEXA imaging: Will [facility] to obtain from [facility] was [facility] 01/2022 Labs: see below Current treatment: None Calcium supplementation: 1000mg a couple of times weekly Vit D supplementation: None Dairy intake: milk, yogurt daily Medications that the patient has used: None Side effects of meds: NA Kidney disease:No Kidney stones:No Liver disease:No Gastrointestinal issues: IBS, tear in GI tract dt scleroderma, she is unsure where. Gastric bypass:No Difficulty swallowing:No Dental issues: has had all teeth extracted History of radiation: No History of bone disease/HPT: No Review of Systems Constitutional: Negative for appetite change. HENT: Positive for dental problem. Negative for trouble swallowing. All teeth have been extracted Gastrointestinal: Positive for constipation and diarrhea. Negative for nausea and vomiting. PCP manages IBS Endocrine: Non DM Musculoskeletal: Positive for arthralgias, back pain and myalgias. Negative for neck pain. Chronic pain from scleroderma, managed with PCP. Was dc'd from pain management. Neurological: No recent falls An entire ROS was performed at the time of this encounter. Unless noted above in the HPI, the ROS is negative. Allergies Allergen Reactions Duloxetine Other Other reaction(s): Chest tightness, Racing Heart Tramadol Other and Unknown Other reaction(s): Other: See Comments Trazodone Other reaction(s): Chest tightness, Other: See Comments, Racing Heart Outpatient Medications Prior to Visit Medication Sig Dispense Refill amitriptyline (Elavil) 50 MG tablet take 1 tablet by mouth nightly 90 tablet 1 amLODIPine (Norvasc) 5 MG tablet Take 1 tablet (5 mg) by mouth daily. 90 tablet 1 atorvastatin (Lipitor) 20 MG tablet Take 1 tablet (20 mg) by mouth Nightly. 90 tablet 1 buPROPion XL (Wellbutrin XL) 150 MG 24 hr tablet Take 150 mg by mouth daily. cetirizine (ZyrTEC ALLERGY) 10 MG tablet 10 mg. choline fenofibrate (Trilipix) [address] capsule Take by mouth. cyanocobalamin (Vitamin B-12) 1000 MCG/ML injection Inject 1,000 mcg into the shoulder, thigh, or buttocks every 30 (thirty) days. dexlansoprazole (Dexilant) [address] capsule take 1 capsule by mouth once daily 90 capsule 1 eszopiclone (Lunesta) 3 MG tablet Take 1 tablet (3 mg) by mouth Nightly as needed for sleep. Take immediately before bedtime 30 tablet 0 naloxone (Narcan) 4 mg/0.1 mL nasal spray ADMINISTER A SINGLE spray INTO ONE NOSTRIL repeat in 3 MINUTES IF... (REFER TO PRESCRIPTION NOTES). oxyCODONE-acetaminophen (Percocet) 5-325 MG tablet Take 1 tablet by mouth every 8 hours as needed for severe pain (7-10). 90 tablet 0 tiZANidine (Zanaflex) 4 MG tablet take 2 tablets by mouth at bedtime if needed 30 tablet 1 No facility-administered medications prior to visit. Past Medical History: Diagnosis Date Anxiety Arthritis Chronic back pain Closed fracture of clavicle 02/25/2022 Depression Disease due to severe acute respiratory syndrome coronavirus 2 (SARS-CoV-2) 03/04/2023 Headache Irritable bowel syndrome Linear scleroderma Neuropathy Social History Tobacco Use Smoking status: Every Day Current packs/day: 1.00 Average packs/day: 1 pack/day for 35.0 years (35.0 ttl pk-yrs) Types: Cigarettes Smokeless tobacco: Never Substance Use Topics Alcohol use: Not Currently Past Surgical History: Procedure Laterality Date ARM SURGERY (HISTORICAL) Left ARM SURGERY (HISTORICAL) Right carpel tunnel COLONOSCOPY ELBOW SURGERY Right Golfers elbow EYE SURGERY Family History Problem Relation Name Age of Onset Arthritis Mother Kera Diabetes Mother Kera Hyperlipidemia Mother Kera Kidney disease Mother Kera Cirrhosis Father N/a Alcohol abuse Father N/a Objective BP (!) 168/88 (BP Location: Right arm, Patient Position: Sitting, BP Cuff Size: Small adult) Pulse 97 Wt 99 lb (44.9 kg) SpO2 98% BMI 23.87 kg/m Physical Exam Vitals and nursing note reviewed. Constitutional: Appearance: Normal appearance. HENT: Head: Normocephalic and atraumatic. Mouth/Throat: Lips: [place]. Mouth: Mucous membranes are moist. Dentition: Abnormal dentition. Comments: Pt has had all teeth extracted and does not wear dentures. Neck: Thyroid: No thyroid mass or thyromegaly. Cardiovascular: Rate and Rhythm: Normal rate and regular rhythm. Heart sounds: Normal heart sounds. Pulmonary: Breath sounds: Normal breath sounds. Abdominal: Palpations: Abdomen is soft. Musculoskeletal: General: Deformity present. Cervical back: Neck supple. No bony tenderness. No spinous process tenderness. Thoracic back: No bony tenderness. Lumbar back: No bony tenderness. Right lower leg: No edema. Left lower leg: No edema. Comments: Deformities of LUE, LLE and severe scoliosis of back. Skin: General: Skin is warm and dry. Neurological: Mental Status: She is alert and oriented to person, place, and time. Psychiatric: Mood and Affect: Mood normal. Behavior: Behavior normal. Data Reviewed and Summarized Labs: Lab Results Component Value Date CO2 25 03/04/2023 BUN 11 03/04/2023 CREATININE 0.52 03/04/2023 GLUCOSE 88 03/04/2023 CALCIUM 9.8 03/04/2023 Lab Results Component Value Date ALKPHOS 172 (H) 03/04/2023 Vitamin D Deficiency Screening (Vit D 25) Order: [id number] Status: Final result Visible to patient: Yes (not seen) Next appt: 08/12/2023 at 03:00 PM in Osteoporosis Bone Health (SCHEDULE, [facility]) 2 Result Notes 1 Patient Communication 1 Follow-up Encounter Component Ref Range & Units 5 mo ago VITAMIN D,25-OH,TOTAL,IA -QUEST 30 - 100 ng/mL 31 Comment: Vitamin D Status 25-OH Vitamin D: Deficiency: <20 ng/mL Insufficiency: 20 - 29 ng/mL Optimal: > or = 30 ng/mL For 25-OH Vitamin D testing on patients on D2-supplementation and patients for whom quantitation of D2 and D3 fractions is required, the QuestAssureD(TM) 25-OH VIT D, (D2,D3), LC/MS/MS is recommended: order code 70221 (patients >2yrs). See Note 1 Note 1 For additional information, please refer to http://education.[email or web address] Klocwork/faq/QHT651 (This link is being provided for informational/ educational purposes only.) Resulting Agency [facility] Specimen Collected: 03/04/23 10:02 Last Resulted: 03/05/23 02:57 No results found for: TSH, R3UWRRV, I3LNWXL, THYROIDAB, T4FREE No results found for: PTH Imaging/Testing: The combined time I spent reviewing previous notes/test results, evaluating the patient, providing counseling on disease process and treatment plan the day of the visit as well as documenting totaled 28 minutes. I have addressed the above chronic illnesses including management, progression, and benefits and side effects of treatment. I have reviewed prior records, interpreted test results and discussed management with the patient. Portions of the information within this encounter were entered using an electronic dictation system. Best attempts were made to edit/proofread the information prior to note completion. Despite the review of information, some errors may remain. If there are questions related to the information contained within the note please contact the signing physician directly. documented in this encounter [facility] 08-12-2023 Instructions KATHREINE Shelby CNP - 08/12/2023 3:00 PM EDT Ensure 1200mg of calcium daily between diet and supplement Eat 5-6 prunes daily Schedule your DXA scan for 01/2024 The following attachments cannot be sent through Care Everywhere.Osteoporosis Discharge Instructions (Ghanaian)Calcium and Vitamin D for Bone Health (Ghanaian)Weight-Bearing Exercises (Ghanaian)documented in this encounter [facility] 08-12-2023 Evaluation + Plan note Associated Problem(s): Hypertension Uncontrolled. Blood pressure 179/91. Patient states that she ran out of her blood pressure medicine. Refill sent, patient advised to restart her blood pressure medicine [facility] 08-12-2023 History of Present illness Narrative Patient was identified by name and Date of . Images from the original note were not included. 08/12/2023 Paris Moncada (: 1970) is a 53 y.o. female , Established patient, here for evaluation of the following chief complaint(s): Pain ASSESSMENT/PLAN: 1. Chronic pain syndrome Assessment & Plan: Had long discussion with patient regarding pain management and needing to establish with another pain management provider. She is going to reach out to some pain management providers that her insurance recommended and see if they will manage her pain with her also being on medical marijuana. I advised patient that I will taper discontinue the oxycodone if she is unable to establish with another pain management provider within the next 2 months. Also discussed possible options for treatment with buprenorphine for opioid dependence through another provider. Oarrs reviewed and consistent with current treatment plan. Orders: - oxyCODONE-acetaminophen (Percocet) 5-325 MG tablet; Take 1 tablet by mouth every 8 hours as needed for severe pain (7-10)., Starting Khushi 08/12/2023, Until 09/11/2023 at 2359, Normal 2. Linear scleroderma Assessment & Plan: Will refer to rheumatology. 3. Primary hypertension Assessment & Plan: Uncontrolled. Blood pressure 179/91. Patient states that she ran out of her blood pressure medicine. Refill sent, patient advised to restart her blood pressure medicine Orders: - amLODIPine (Norvasc) 5 MG tablet; Take 1 tablet (5 mg) by mouth daily., Starting Khushi 08/12/2023, Until 09/02/2024, Normal 4. Osteopetrosis Assessment & Plan: Follow-up with osteoporosis clinic 5. Osteoporosis, unspecified osteoporosis type, unspecified pathological fracture presence Assessment & Plan: Follow-up with osteoporosis clinic Follow up in about 1 month (around 09/11/2023) for Recheck. SUBJECTIVE/OBJECTIVE: HPI - Paris Moncada (: 1970) is a 53 y.o. female , Established patient, here for the evaluation of the following chief complaint(s): Pain Patient presents today for follow-up chronic pain. We are currently bridging her to her pain management doctor. Previously referred to [facility] and appt was on 08/10/2023 for pain management to establish. Reports that they will not accept patients that are also on medical marijuana. Currently is on Percocet 5-325 mg every 8 hours as needed for severe pain and she also uses medical marijuana at night on the weekends for her pain. Uses tizanidine every 8 hours as needed for muscle spasms. She is aware to avoid use of medications together as this increases risk for over sedation/-she does have Narcan at home. Osteoporosis-got scheduled with the osteoporosis clinic and is scheduled later today for this 07/08/2023 MRI of lumbar spine showed multilevel degenerative disc disease. There is noted L5/S1 right sided disc bulging which may be causing some of the increased pain on the right side. The soft tissue thickening is noted on the right. She has a lift on the left foot. She previously completed physical therapy in June 2022 at [place]. At that time it was not very helpful for her pain We referred her to physical therapy and she has had her initial visit. She reports they are getting her a roll for her back to be fitted for her vehicle. Also measured her leg discrepancy which does need adjusted slightly (increase in lift). Next visit is next week Right shoulder-gets injections about every 3 months through [facility] [place]. Last injection about 2.5 months ago. Insomnia-uses Lunesta 3 mg nightly with good symptom control. Linear scleroderma- has not seen a lavender farm worker in several years. Stated she stopped going when they told her that it was not progressing. She is now thinking that she needs to see one because of the pain in her limbs and back. Hypertension- elevated. States she ran out of amlodipine. Needs refill Prior to Admission medications Medication Sig Start Date End Date Taking? Authorizing Provider amitriptyline (Elavil) 50 MG tablet take 1 tablet by mouth nightly 06/24/23 Yes Juancho Goodman MD atorvastatin (Lipitor) 20 MG tablet Take 1 tablet (20 mg) by mouth Nightly. 03/09/23 Yes Britta Trinidad APRN - EMPLOYEE HEALTH NURSE buPROPion XL (Wellbutrin XL) 150 MG 24 [...] Provider, dexlansoprazole (Dexilant) [address] capsule take 1 capsule by mouth once daily 07/26/23 Yes KATHERINE Escalante CNP eszopiclone (Lunesta) 3 MG tablet Take 1 tablet (3 mg) by mouth Nightly as needed for sleep. Take immediately before bedtime 07/23/23 08/22/23 Yes Juancho Goodman MD naloxone (Narcan) 4 mg/0.1 mL nasal spray ADMINISTER A SINGLE spray INTO ONE NOSTRIL repeat in 3 MINUTES IF... (REFER TO PRESCRIPTION NOTES). 03/04/23 Yes Historical Provider, oxyCODONE-acetaminophen (Percocet) 5-325 MG tablet Take 1 tablet by mouth every 8 hours as needed for severe pain (7-10). 07/13/23 08/12/23 Yes KATHERINE Escalante CNP tiZANidine (Zanaflex) 4 MG tablet take 2 tablets by mouth at bedtime if needed 07/13/23 Yes KATHERINE Escalante CNP amLODIPine (Norvasc) 5 MG tablet 5 mg. 07/21/22 08/12/23 Yes Historical Provider, amLODIPine (Norvasc) 5 MG tablet Take 1 tablet (5 mg) by mouth daily. 08/12/23 09/02/24 BrittaKATHERINE Gresham CNP Review of Systems Constitutional: Negative for activity change, chills, fatigue and fever. HENT: Negative. Respiratory: Negative. Cardiovascular: Negative. Gastrointestinal: Negative for abdominal pain, nausea and vomiting. Alternates between constipaton and loose stools- IBS Genitourinary: Negative for difficulty urinating. Musculoskeletal: Positive for back pain and gait problem. Neurological: Negative for dizziness and light-headedness. Psychiatric/Behavioral: Negative for agitation, dysphoric mood, self-injury, sleep disturbance and suicidal ideas. The patient is not nervous/anxious. Vitals: 08/12/23 1101 BP: (!) 179/91 Pulse: 106 Resp: 24 Temp: 37 C (98.6 F) TempSrc: Infrared SpO2: 98% Weight: 98 lb 9.6 oz (44.7 kg) Physical Exam Constitutional: General: She is [...] and oriented to person, place, and time. Psychiatric: Mood and Affect: Mood normal. Behavior: Behavior normal. Thought Content: Thought content normal. Judgment: Judgment normal. An electronic signature was used to authenticate this note. KATHERINE Bergman CNP 08/12/2023 5:12 PM documented in this encounter [facility] 08-12-2023 Instructions KATHERINE Escalante CNP - 08/12/2023 11:00 AM EDT Please reach out to the pain management providers that your insurance gave you to see if they manage persons that also have a medical marijuana Continue physical therapy. documented in this encounter [facility] 07-28-2023 Evaluation + Plan note Associated Problem(s): Insomnia Symptoms well-controlled on Lunesta 3 mg nightly as needed for sleep. OARRS reviewed and consistent with treatment plan. CS MA is in place. [facility] 07-28-2023 Miscellaneous Notes Associated Problem(s): Insomnia Symptoms well-controlled on Lunesta 3 mg nightly as needed for sleep. OARRS reviewed and consistent with treatment plan. CS MA is in place. Associated Problem(s): Osteoporosis Refer to osteoporosis clinic Associated Problem(s): Degenerative joint disease (DJD) of lumbar spine Continue current medications, recommend starting physical therapy. Associated Problem(s): Hypertension Uncontrolled. Repeat blood pressure remains elevated 176/83. Patient was advised that she needs to take her amlodipine 5 mg daily. She did not take medication today Associated Problem(s): Mass on back Soft tissue thickening noted on MRI without other concerning findings. Continue to monitor Associated Problem(s): Bulging lumbar disc No bowel or bladder dysfunction, no red flags for cauda equina, MRI showed L5-S1 right-sided disc bulging. Recommend physical therapy and reevaluation of leg discrepancy to make sure lift is correct Associated Problem(s): Chronic pain syndrome Continue current pain management plan. Patient to establish with pain management [facility] Associated Problem(s): Leg length discrepancy Recommend remeasuring for lift on left side. documented in this encounter [facility] 07-28-2023 Evaluation + Plan note Associated Problem(s): Osteoporosis Refer to osteoporosis clinic [facility] 07-28-2023 Evaluation + Plan note Associated Problem(s): Degenerative joint disease (DJD) of lumbar spine Continue current medications, recommend starting physical therapy. [facility] 07-28-2023 Evaluation + Plan note Associated Problem(s): Hypertension Uncontrolled. Repeat blood pressure remains elevated 176/83. Patient was advised that she needs to take her amlodipine 5 mg daily. She did not take medication today [facility] 07-28-2023 Evaluation + Plan note Associated Problem(s): Mass on back Soft tissue thickening noted on MRI without other concerning findings. Continue to monitor [facility] 07-28-2023 Evaluation + Plan note Associated Problem(s): Bulging lumbar disc No bowel or bladder dysfunction, no red flags for cauda equina, MRI showed L5-S1 right-sided disc bulging. Recommend physical therapy and reevaluation of leg discrepancy to make sure lift is correct [facility] 07-28-2023 Evaluation + Plan note Associated Problem(s): Chronic pain syndrome Continue current pain management plan. Patient to establish with pain management [facility] 07-28-2023 Evaluation + Plan note Associated Problem(s): Leg length discrepancy Recommend remeasuring for lift on left side. [facility] 07-28-2023 History of Present illness Narrative Patient was identified by name and Date of . Images from the original note were not included. 07/28/2023 Paris Moncada (: 1970) is a 53 y.o. female , Established patient, here for evaluation of the following chief complaint(s): Medication Check ASSESSMENT/PLAN: 1. Bulging lumbar disc Assessment & Plan: No bowel or bladder dysfunction, no red flags for cauda equina, MRI showed L5-S1 right-sided disc bulging. Recommend physical therapy and reevaluation of leg discrepancy to make sure lift is correct Orders: - External referral to Physical Therapy 2. Leg length discrepancy Assessment & Plan: Recommend remeasuring for lift on left side. Orders: - External referral to Physical Therapy 3. Other osteoarthritis of spine, lumbar region Assessment & Plan: Continue current medications, recommend starting physical therapy. 4. Primary hypertension Assessment & Plan: Uncontrolled. Repeat blood pressure remains elevated 176/83. Patient was advised that she needs to take her amlodipine 5 mg daily. She did not take medication today 5. Chronic pain syndrome Assessment & Plan: Continue current pain management plan. Patient to establish with pain management [facility] 6. Mass on back Assessment & Plan: Soft tissue thickening noted on MRI without other concerning findings. Continue to monitor 7. Osteoporosis, unspecified osteoporosis type, unspecified pathological fracture presence Assessment & Plan: Refer to osteoporosis clinic 8. Primary insomnia Assessment & Plan: Symptoms well-controlled on Lunesta 3 mg nightly as needed for sleep. OARRS reviewed and consistent with treatment plan. MA is in place. Again discussed that the use of marijuana increases the risk for sedation and she should avoid using those medications together. Reviewed her current medications that increase risk- Patient states she understands possible risks associated with using the medications together. Follow up in about 2 months (around 09/27/2023) for Recheck. SUBJECTIVE/OBJECTIVE: BRADFORD Moncada (: 1970) is a 53 y.o. female , Established patient, here for the evaluation of the following chief complaint(s): Medication Check Patient presents today for follow-up chronic pain. We are currently bridging her to her pain management doctor. Previously referred to [facility] and Is scheduled with [facility] on the 08/10/2023 for pain management to establish. Currently is on Percocet 5-325 mg every 8 hours as needed for severe pain and she also uses medical marijuana at night on the weekends for her pain. Uses tizanidine every 8 hours as needed for muscle spasms. She is aware to avoid use of medications together as this increases risk for over sedation/-she does have Narcan at home. Osteoporosis-got scheduled with the osteoporosis clinic and is scheduled the end of this month. 07/08/2023 MRI of lumbar spine showed multilevel degenerative disc disease. There is noted L5/S1 right sided disc bulging which may be causing some of the increased pain on the right side. The soft tissue thickening is noted on the right. She has a lift on the left foot. She previously completed physical therapy in June 2022 at [place]. At that time it was not very helpful for her pain Right shoulder-gets injections about every 3 months through [facility] [place]. Last injection about 2 months ago. Insomnia-uses Lunesta 3 mg nightly with good symptom control. Blood pressure this am 130/80 at home- did not take amlodipine this am Prior to Admission medications Medication Sig Start Date End Date Taking? Authorizing Provider amitriptyline (Elavil) 50 MG tablet take 1 tablet by mouth nightly 06/24/23 Yes Juancho Goodman MD amLODIPine (Norvasc) 5 MG tablet 5 mg. 07/21/22 07/28/23 Yes Historical Provider, atorvastatin (Lipitor) 20 MG tablet Take 1 tablet (20 mg) by mouth Nightly. 03/09/23 Yes KATHERINE Escalante CNP cetirizine (ZyrTEC ALLERGY) 10 MG tablet 10 mg. 04/30/22 Yes Historical Provider, choline fenofibrate (Trilipix) [address] capsule Take by mouth. 11/24/21 Yes Historical Provider, dexlansoprazole (Dexilant) [address] capsule take 1 capsule by mouth once daily 07/26/23 Yes KATHERINE Escalante CNP eszopiclone (Lunesta) 3 MG tablet Take 1 tablet (3 mg) by mouth Nightly as needed for sleep. Take immediately before bedtime 07/23/23 08/22/23 Yes Juancho Goodman MD naloxone (Narcan) 4 mg/0.1 mL nasal spray ADMINISTER A SINGLE spray INTO ONE NOSTRIL repeat in 3 MINUTES IF... (REFER TO PRESCRIPTION NOTES). 03/04/23 Yes Historical Provider, oxyCODONE-acetaminophen (Percocet) 5-325 MG tablet Take 1 tablet by mouth every 8 hours as needed for severe pain (7-10). 07/13/23 08/12/23 Yes KATHERINE Escalante CNP tiZANidine (Zanaflex) 4 MG tablet take 2 tablets by mouth at bedtime if needed 07/13/23 Yes KATHERINE Escalante CNP buPROPion XL (Wellbutrin XL) 150 MG 24 hr tablet Take 150 mg by mouth daily. 07/21/22 Historical Provider, cyanocobalamin (Vitamin B-12) 1000 MCG/ML injection Inject 1,000 mcg into the shoulder, thigh, or buttocks every 30 (thirty) days. 08/12/21 Historical Provider, dexlansoprazole (Dexilant) [address] capsule Take 1 capsule (60 mg) by mouth daily. 02/03/23 07/26/23 KATHERINE Escalante CNP eszopiclone (Lunesta) 3 MG tablet Take 1 tablet (3 mg) by mouth Nightly as needed for sleep. Take immediately before bedtime 06/22/23 07/22/23 KATHERINE Escalante CNP Review of Systems Constitutional: Positive for fatigue (tired during the day). Negative for activity change, chills and fever. HENT: Negative. Respiratory: Negative. Cardiovascular: Negative. Gastrointestinal: Negative for abdominal pain, nausea and vomiting. Alternates between constipaton and loose stools- IBS Genitourinary: Negative for difficulty urinating. Musculoskeletal: Positive for back pain and gait problem. Neurological: Negative for dizziness and light-headedness. Psychiatric/Behavioral: Negative for agitation, dysphoric mood, self-injury, sleep disturbance and suicidal ideas. The patient is not nervous/anxious. Vitals: 07/28/23 1519 07/28/23 1558 BP: (!) 170/107 (!) 176/83 Pulse: 103 Resp: 18 Temp: 36.8 C (98.3 F) TempSrc: Infrared SpO2: 94% Weight: 100 lb 6.4 oz (45.5 kg) Physical Exam Constitutional: General: She is [...] was used to authenticate this note. KATHERINE Bergman CNP 07/28/2023 5:26 PM documented in this encounter [facility] 07-26-2023 Telephone encounter Note Reviewed chart. Refill appropriate. RX sent. [facility] 07-26-2023 Miscellaneous Notes Reviewed chart. Refill appropriate. RX sent. Prescription Request: Last medication check: 11/24/2022 Last physical exam: 03/04/2023 Next scheduled appointment: 07/28/2023 Last date of refill on this medication: 02/03/23 documented in this encounter [facility] 07-26-2023 Telephone encounter Note Prescription Request: Last medication check: 11/24/2022 Last physical exam: 03/04/2023 Next scheduled appointment: 07/28/2023 Last date of refill on this medication: 02/03/23 [facility] 07-23-2023 Telephone encounter Note Refill sent [facility] 07-23-2023 Miscellaneous Notes Refill sent S: Patient spoke with [facility] nurse regarding B: Onset of symptoms/concern today-TATO 05/20/23 Next OV 07/28/23. A: Patient requesting refill for eszopiclone (Lunesta) 3 MG tablet. Patient states she is completely out and cannot sleep without it. Patient also sent a My Chart message. Pharmacy and allergies verified/reviewed with patient. R: Spoke with back line office staff stated request for refill was sent to Dr. Goodman to address after seeing patients. Patient informed. No further needs at this time. Reason for Disposition Prescription refill request for NON-ESSENTIAL medicine (i.e., no harm to patient if med not taken) and triager unable to refill per department policy Protocols used: Medication Refill and Renewal [id number] documented in this encounter [facility] 07-23-2023 Telephone encounter Note S: Patient spoke with [facility] nurse regarding B: Onset of symptoms/concern today-TATO 05/20/23 Next OV 07/28/23. A: Patient requesting refill for eszopiclone (Lunesta) 3 MG tablet. Patient states she is completely out and cannot sleep without it. Patient also sent a My Chart message. Pharmacy and allergies verified/reviewed with patient. R: Spoke with back line office staff stated request for refill was sent to Dr. Goodman to address after seeing patients. Patient informed. No further needs at this time. Reason for Disposition Prescription refill request for NON-ESSENTIAL medicine (i.e., no harm to patient if med not taken) and triager unable to refill per department policy Protocols used: Medication Refill and Renewal [id number] [facility] 07-23-2023 Telephone encounter Note Reason for Disposition Message left on unidentified voice mail. Phone number verified. Answer Assessment - Initial Assessment Questions , Protocols used: No Contact or Duplicate Contact [id number] [facility] 07-23-2023 Miscellaneous Notes Reason for Disposition Message left on unidentified voice mail. Phone number verified. Answer Assessment - Initial Assessment Questions , Protocols used: No Contact or Duplicate Contact [id number] documented in this encounter [facility] 07-13-2023 Telephone encounter Note Reviewed chart. Refill appropriate. Rx sent. Oarrs reviewed and consistent with treatment plan. Patient is to be getting established with pain management provider. [facility] 07-13-2023 Miscellaneous Notes Reviewed chart. Refill appropriate. Rx sent. Oarrs reviewed and consistent with treatment plan. Patient is to be getting established with pain management provider. Last rx was sent in on 07/01/23, please advise. documented in this encounter [facility] 07-13-2023 Telephone encounter Note Reviewed chart. Refill appropriate. RX sent. [facility] 07-13-2023 Miscellaneous Notes Reviewed chart. Refill appropriate. RX sent. Prescription Request: Last medication check: 11/24/2022 Last physical exam: 03/04/2023 Next scheduled appointment: 07/28/2023 Last date of refill on this medication: 05/20/2023 documented in this encounter [facility] 07-13-2023 Telephone encounter Note Prescription Request: Last medication check: 11/24/2022 Last physical exam: 03/04/2023 Next scheduled appointment: 07/28/2023 Last date of refill on this medication: 05/20/2023 [facility] 07-13-2023 Telephone encounter Note Last rx was sent in on 07/01/23, please advise. [facility] 06-24-2023 Telephone encounter Note Prescription Request: Last medication check: 05-20-23 Last physical exam: 03-04-23 Next scheduled appoitment: 07-28-23 Last date of refill on this medication 01/04/23 [facility] 06-24-2023 Miscellaneous Notes Prescription Request: Last medication check: 05-20-23 Last physical exam: 03-04-23 Next scheduled appoitment: 07-28-23 Last date of refill on this medication 01/04/23 documented in this encounter [facility] 06-22-2023 Telephone encounter Note Reviewed chart. Refill appropriate. RX sent. [facility] 06-22-2023 Miscellaneous Notes Reviewed chart. Refill appropriate. RX sent. Prescription Request: Last medication check: 05-20-23 Last physical exam: 03-04-23 Next scheduled appoitment: 07-28-23 Last date of refill on this medication 05-19-22 documented in this encounter [facility] 06-22-2023 Telephone encounter Note Prescription Request: Last medication check: 05-20-23 Last physical exam: 03-04-23 Next scheduled appoitment: 07-28-23 Last date of refill on this medication 05-19-22 [facility] 06-08-2023 Telephone encounter Note Addendum made. CT lung DX-screening for lung cancer; tobacco use disorder [facility] 06-08-2023 Miscellaneous Notes Addendum made. CT lung DX-screening for lung cancer; tobacco use disorder Name of caller: Paris Contact phone number: [phone] Relationship to Patient: patient Provider: Dr. Goodman Practice: [facility] Chief Complaint/Reason for Call: Pt said when she schedule appt for LUNG SCREENING she advised that the reason for the lung screening need to be added to the rx for LUNG SCREENING Best time of day caller can be reached: any Patient advised that office/PCP has 24-48 business hours to return their call: No documented in this encounter [facility] 06-08-2023 Telephone encounter Note Name of caller: Paris Contact phone number: [phone] Relationship to Patient: patient Provider: Dr. Goodman Practice: [facility] Chief Complaint/Reason for Call: Pt said when she schedule appt for LUNG SCREENING she advised that the reason for the lung screening need to be added to the rx for LUNG SCREENING Best time of day caller can be reached: any Patient advised that office/PCP has 24-48 business hours to return their call: No [facility] 06-01-2023 History of Present illness Narrative Referral placed to [facility]. documented in this encounter [facility] 05-20-2023 Evaluation + Plan note Associated Problem(s): Mass on back Patient has enlarging mass on the right thoracic side. Reports increased thoracic and lumbar pain. No significant change in extremity strength or sensation. Will order MRI to further evaluate. Patient does have history of cancer (breast) [facility] 05-20-2023 Miscellaneous Notes Associated Problem(s): Mass on back Patient has enlarging mass on the right thoracic side. Reports increased thoracic and lumbar pain. No significant change in extremity strength or sensation. Will order MRI to further evaluate. Patient does have history of cancer (breast) Associated Problem(s): Spondylosis of lumbar spine Patient reports worsening symptoms. Will obtain records from recent Ortho specialist seen in [place]. Associated Problem(s): Insomnia Controlled. OARRS reviewed and consistent with treatment plan. Continue Lunesta as directed. Associated Problem(s): Chronic pain syndrome Continue current pain management plan. Will try to see if we can find another painting manager that would be able to see her sooner than October 2023. Associated Problem(s): Chronic back pain Stable. Continue Percocet 5-325 mg 1 tablet every 8 hours for severe pain. OARRS reviewed and consistent with treatment plan. We will try to get her established with a pain management provider. We will continue her current medication regimen until that time.Also discussed that the use of marijuana increases the risk for sedation and she should avoid using those medications together. Patient states she understands possible risks associated with using the medications together. documented in this encounter [facility] 05-20-2023 Evaluation + Plan note Associated Problem(s): Spondylosis of lumbar spine Patient reports worsening symptoms. Will obtain records from recent Ortho specialist seen in [place]. [facility] 05-20-2023 Evaluation + Plan note Associated Problem(s): Insomnia Controlled. OARRS reviewed and consistent with treatment plan. Continue Lunesta as directed. [facility] 05-20-2023 Evaluation + Plan note Associated Problem(s): Chronic pain syndrome Continue current pain management plan. Will try to see if we can find another painting manager that would be able to see her sooner than October 2023. [facility] 05-20-2023 Evaluation + Plan note Associated Problem(s): Chronic back pain Stable. Continue Percocet 5-325 mg 1 tablet every 8 hours for severe pain. OARRS reviewed and consistent with treatment plan. We will try to get her established with a pain management provider. We will continue her current medication regimen until that time.Also discussed that the use of marijuana increases the risk for sedation and she should avoid using those medications together. Patient states she understands possible risks associated with using the medications together. [facility] 05-20-2023 History of Present illness Narrative Patient was identified by name and Date of . KATHRIN SENT STAT TO [facility]. Images from the original note were not included. 05/20/2023 Paris Moncada (: 1970) is a 52 y.o. female , Established patient, here for evaluation of the following chief complaint(s): Follow-up and Chronic Pain ASSESSMENT/PLAN: 1. Mass on back Assessment & Plan: Patient has enlarging mass on the right thoracic side. Reports increased thoracic and lumbar pain. No significant change in extremity strength or sensation. Will order MRI to further evaluate. Patient does have history of cancer (breast) Orders: - MR thoracic spine wo contrast - MR lumbar spine wo contrast 2. Chronic midline thoracic back pain Assessment & Plan: Stable. Continue Percocet 5-325 mg 1 tablet every 8 hours for severe pain. OARRS reviewed and consistent with treatment plan. We will try to get her established with a pain management provider. We will continue her current medication regimen until that time.Also discussed that the use of marijuana increases the risk for sedation and she should avoid using those medications together. Patient states she understands possible risks associated with using the medications together. Orders: - tiZANidine (Zanaflex) 4 MG tablet; take 2 tablets by mouth at bedtime if needed, Normal 3. Systemic sclerosis (HCC) - MR thoracic spine wo contrast - MR lumbar spine wo contrast 4. Chronic pain syndrome Assessment & Plan: Continue current pain management plan. Will try to see if we can find another painting manager that would be able to see her sooner than October 2023. Orders: - oxyCODONE-acetaminophen (Percocet) 5-325 MG tablet; Take 1 tablet by mouth every 8 hours as needed for severe pain (7-10). Do not start before June 04, 2023., Starting 06/04/2023, Until 07/04/2023 at 2359, Normal 5. Insomnia, unspecified type Assessment & Plan: Controlled. OARRS reviewed and consistent with treatment plan. Continue Lunesta as directed. Orders: - eszopiclone (Lunesta) 3 MG tablet; Take 1 tablet (3 mg) by mouth Nightly as needed for sleep. Take immediately before bedtime, Starting Khushi 05/20/2023, Until 06/19/2023 at 2359, Normal 6. Spondylosis of lumbar spine Assessment & Plan: Patient reports worsening symptoms. Will obtain records from recent Ortho specialist seen in [place]. Follow up for with primary care provider as scheduled. SUBJECTIVE/OBJECTIVE: BRADFORD Moncada (: 1970) is a 52 y.o. female , Established patient, here for the evaluation of the following chief complaint(s): Follow-up and Chronic Pain Patient presents today for follow-up chronic pain. We have been trying to bridge her from 1 pain management provider to another and unfortunately the most recent referral that we made that provider has left the area. Her appointment was scheduled in April and now it is pushed back until October. 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 She is unable to use her left shoulder well due to pain, compensates greatly using the right. She gets shoulder injections from a orthopedic doctor in [place] at [facility]. Reports getting a steroid injection in the right shoulder last week. She states she also was seen by a engineering test specialist who did get x-rays and reviewed imaging from [place] where she was from before. She reports her last MRI in [place] of her back was about 5 years ago. She reports worsening right-sided low back pain and thoracic pain and is having swelling of the area that seems to be getting bigger. Denies any increased weakness numbness or tingling in her legs and no bowel or bladder dysfunction -She currently uses Percocet 5-325 mg every 8 hours as needed for severe pain and uses medical marijuana at night and on the weekends for her pain. Also uses tizanidine every 8 hours if needed for muscle spasms. Insomnia-has been using Lunesta 3 mg nightly with good symptom control. Reports this helps with her sleep. Prior to Admission medications Medication Sig Start Date End Date Taking? Authorizing Provider amitriptyline (Elavil) 50 MG tablet Take 1 tablet (50 mg) by mouth Nightly. 01/04/23 Yes Juancho Goodman MD atorvastatin (Lipitor) 20 MG tablet Take 1 tablet (20 mg) by mouth Nightly. 03/09/23 Yes KATHERINE Escalante CNP buPROPion XL (Wellbutrin XL) 150 MG 24 [...] [address] capsule Take 1 capsule (60 mg) by mouth daily. 02/03/23 08/02/23 Yes KATHERINE Escalante CNP eszopiclone (Lunesta) 3 MG tablet Take 1 tablet (3 mg) by mouth Nightly as needed for sleep. Take immediately before bedtime Do not start before April 20, 2023. 04/20/23 05/20/23 Yes KATHERINE Escalante CNP naloxone (Narcan) 4 mg/0.1 mL nasal spray ADMINISTER A SINGLE spray INTO ONE NOSTRIL repeat in 3 MINUTES IF... (REFER TO PRESCRIPTION NOTES). 03/04/23 Yes Historical Provider, oxyCODONE-acetaminophen (Percocet) 5-325 MG tablet Take 1 tablet by mouth every 8 hours as needed for severe pain (7-10). Do not start before May 05, 2023. 05/05/23 06/04/23 Yes Britta Bridenthal, [employer] tiZANidine (Zanaflex) 4 MG tablet take 2 tablets by mouth at bedtime if needed 04/13/23 Yes Britta Bridenthal, [employer] amLODIPine (Norvasc) 5 MG tablet 5 mg. 07/21/22 03/31/23 Historical Provider, Review of Systems Constitutional: Negative. HENT: Negative. Eyes: Negative for visual disturbance. Respiratory: Negative. Cardiovascular: Negative. Gastrointestinal: Negative. Genitourinary: Negative for difficulty urinating. Musculoskeletal: Positive for arthralgias, back pain and gait problem. Neurological: Negative for dizziness, light-headedness and headaches. Vitals: 05/20/23 1448 BP: 138/82 Pulse: 86 Resp: 18 Temp: 37.3 C (99.1 F) TempSrc: Infrared SpO2: 96% Weight: 100 lb 12.8 oz (45.7 kg) Physical Exam Constitutional: General: She is [...] to authenticate this note. KATHERINE Escalante CNP 05/20/2023 6:07 PM documented in this encounter [facility] 05-20-2023 Instructions KATHERINE Escalante CNP - 05/20/2023 2:40 PM EDT Let me know if you do not hear to schedule the MRI in a week documented in this encounter [facility] 05-13-2023 Telephone encounter Note Scheduled appointment [facility] 05-13-2023 Miscellaneous Notes Scheduled appointment Name of caller: Paris Contact phone number: [phone] Relationship to Patient: patient Provider: new patient Practice: [facility] Chief Complaint/Reason for Call: Paris called asking the office to schedule her an apt and call and leave a msg with the date and time and what doctor it is with. Best time of day caller can be reached: any Patient advised that office/PCP has 24-48 business hours to return their call: no Left message for patient to call the office Name of Caller: Paris Contact Reason for Appointment: Pt had an appointment previously scheduled with Dr. Gamble on 05/09 but it was cancelled. Pt states she would now like to be seen at the office. Please advise. Office Name: [facility] documented in this encounter [facility] 05-13-2023 Telephone encounter Note Name of caller: Paris Contact phone number: [phone] Relationship to Patient: patient Provider: new patient Practice: [facility] Chief Complaint/Reason for Call: Paris called asking the office to schedule her an apt and call and leave a msg with the date and time and what doctor it is with. Best time of day caller can be reached: any Patient advised that office/PCP has 24-48 business hours to return their call: no [facility] 05-12-2023 Telephone encounter Note Left message for patient to call the office [facility] 05-12-2023 Miscellaneous Notes Left message for patient to call the office Name of Caller: Paris Contact Reason for Appointment: Pt had an appointment previously scheduled with Dr. Gamble on 05/09 but it was cancelled. Pt states she would now like to be seen at the office. Please advise. Office Name: [facility] documented in this encounter [facility] 05-12-2023 Telephone encounter Note Name of Caller: Paris Contact Reason for Appointment: Pt had an appointment previously scheduled with Dr. Gamble on 05/09 but it was cancelled. Pt states she would now like to be seen at the office. Please advise. Office Name: [facility] 05-03-2023 Telephone encounter Note Called and offered first available explained to patient we are interventional pain management patient stated she will reach out to her pcp [facility] 05-03-2023 Miscellaneous Notes Called and offered first available explained to patient we are interventional pain management patient stated she will reach out to her pcp Name of caller: Paris Contact phone number: [phone] Relationship to Patient: patient Provider: Tye Practice: pain management Chief Complaint/Reason for Call: patient says she was just notified her appointment was canceled she states the meds she in on is not working and she waited three months for this visit please call patient . Best time of day caller can be reached: any Patient advised that office/PCP has 24-48 business hours to return their call: Yes documented in this encounter [facility] 05-03-2023 Telephone encounter Note Name of caller: Paris Contact phone number: [phone] Relationship to Patient: patient Provider: Tye Practice: pain management Chief Complaint/Reason for Call: patient says she was just notified her appointment was canceled she states the meds she in on is not working and she waited three months for this visit please call patient . Best time of day caller can be reached: any Patient advised that office/PCP has 24-48 business hours to return their call: Yes [facility] 04-29-2023 Evaluation + Plan note Associated Problem(s): Chronic pain of both upper extremities Recommend following up with orthopedic for right shoulder pain. And seeing if you can get another steroid injection to see if it helps. [facility] 04-29-2023 Miscellaneous Notes Associated Problem(s): Chronic pain of both upper extremities Recommend following up with orthopedic for right shoulder pain. And seeing if you can get another steroid injection to see if it helps. Associated Problem(s): Skin pimple Noted on tip of the nose. No significant induration. Recommend warm compresses and continue to monitor. Follow-up for worsening symptoms. Associated Problem(s): Acute right-sided low back pain without sciatica Will see if prednisone burst will help with her flareup of her low back pain. No red flags. Associated Problem(s): Chronic pain syndrome Stable. Continue Percocet 5-325 mg 1 tablet every 8 hours for severe pain. OARRS reviewed and consistent with treatment plan. Patient is to get established with pain management provider. Her appt is on 05/10/2023. She understands that if she does not establish with this pain management provider that I will be taper discontinuing the opioid medication as primary care does not typically manage chronic pain. CS MA in place documented in this encounter [facility] 04-29-2023 Evaluation + Plan note Associated Problem(s): Skin pimple Noted on tip of the nose. No significant induration. Recommend warm compresses and continue to monitor. Follow-up for worsening symptoms. [facility] 04-29-2023 Evaluation + Plan note Associated Problem(s): Acute right-sided low back pain without sciatica Will see if prednisone burst will help with her flareup of her low back pain. No red flags. [facility] 04-29-2023 Evaluation + Plan note Associated Problem(s): Chronic pain syndrome Stable. Continue Percocet 5-325 mg 1 tablet every 8 hours for severe pain. OARRS reviewed and consistent with treatment plan. Patient is to get established with pain management provider. Her appt is on 05/10/2023. She understands that if she does not establish with this pain management provider that I will be taper discontinuing the opioid medication as primary care does not typically manage chronic pain. CS MA in place [facility] 04-29-2023 History of Present illness Narrative Patient was identified by name and Date of . Images from the original note were not included. 04/29/2023 Paris Moncada (: 1970) is a 52 y.o. female , Established patient, here for evaluation of the following chief complaint(s): Medication Check and Nose Problem ASSESSMENT/PLAN: 1. Chronic pain syndrome Assessment & Plan: Stable. Continue Percocet 5-325 mg 1 tablet every 8 hours for severe pain. OARRS reviewed and consistent with treatment plan. Patient is to get established with pain management provider. Her appt is on 05/10/2023. She understands that if she does not establish with this pain management provider that I will be taper discontinuing the opioid medication as primary care does not typically manage chronic pain. CS MA in place Orders: - oxyCODONE-acetaminophen (Percocet) 5-325 MG tablet; Take 1 tablet by mouth every 8 hours as needed for severe pain (7-10). Do not start before May 05, 2023., Starting Wed05/05/2023, Until Wed06/04/2023 at 2359, Normal 2. Acute right-sided low back pain without sciatica Assessment & Plan: Will see if prednisone burst will help with her flareup of her low back pain. No red flags. Orders: - predniSONE (Deltasone) 20 MG tablet; Take 3 tabs (60mg) daily for 3 days, then take 2 tabs (40mg) daily for 3 days, then take 1 tab (20mg) daily for 3 days., Normal 3. Skin pimple Assessment & Plan: Noted on tip of the nose. No significant induration. Recommend warm compresses and continue to monitor. Follow-up for worsening symptoms. 4. Chronic pain of both upper extremities Assessment & Plan: Recommend following up with orthopedic for right shoulder pain. And seeing if you can get another steroid injection to see if it helps. Follow up for 3 month [facility]. SUBJECTIVE/OBJECTIVE: BRADFORD Moncada (: 1970) is a 52 y.o. female , Established patient, here for the evaluation of the following chief complaint(s): Medication Check and Nose Problem Presents for medication follow-up and chronic pain. Right shoulder pain- sees ortho for this and gets injections that help for awhile- Reports that the lump on her right back continues to bother her and is tender- it has been there for several years and a previous provider obtained US and was told that it was nothing to worry about. She thinks it might be flared up from recently moving. She moved out of her sister's apartment into her own efficiency apartment last week. No change from previous Using marijuana on the weekends at night for pain. Has medical card, Taking the percocet 5mg/ 325 mg every 8 hours. Reports this helps some but still has difficulty doing her ADLs during the day. She has been referred to pain management to establish and is scheduled. Patient reminded that I am only bridging her pain medication until then and if she misses the appt, I will be taper discontinuing the opioid pain medication. Also advised her that pain management may decide that she may benefit from a different medication or treatment plan. She states that she understands this. Has appt with pain management on 05/10/2023. She states that she has had No Illnesses or injuries since last visit. Sore spot on her nose-patient reports in the last day or so she has had a sore spot on the tip of her nose she thinks it might a pimple but is not sure if there is a sore inside the nose. Prior to Admission medications Medication Sig Start Date End Date Taking? Authorizing Provider amitriptyline (Elavil) 50 MG tablet Take 1 tablet (50 mg) by mouth Nightly. 01/04/23 Yes Juancho Goodman MD atorvastatin (Lipitor) 20 MG tablet Take 1 tablet (20 mg) by mouth Nightly. 03/09/23 Yes KATHERINE Escalante CNP buPROPion XL (Wellbutrin XL) 150 MG 24 [...] [address] capsule Take 1 capsule (60 mg) by mouth daily. 02/03/23 08/02/23 Yes KATHERINE Escalante CNP eszopiclone (Lunesta) 3 MG tablet Take 1 tablet (3 mg) by mouth Nightly as needed for sleep. Take immediately before bedtime Do not start before April 20, 2023. 04/20/23 05/20/23 Yes KATHERINE Escalante CNP naloxone (Narcan) 4 mg/0.1 mL nasal spray ADMINISTER A SINGLE spray INTO ONE NOSTRIL repeat in 3 MINUTES IF... (REFER TO PRESCRIPTION NOTES). 03/04/23 Yes Historical Provider, oxyCODONE-acetaminophen (Percocet) 5-325 MG tablet Take 1 tablet by mouth every 8 hours as needed for severe pain (7-10). Do not start before April 04, 2023. 04/04/23 05/04/23 Yes Britta FordalKATHERINE - GARRISON tiZANidine (Zanaflex) 4 MG tablet take 2 tablets by mouth at bedtime if needed 04/13/23 Yes Britta Bridenthal CURTAIN FRAMER - GARRISON amLODIPine (Norvasc) 5 MG tablet 5 mg. 07/21/22 03/31/23 Historical Provider, Review of Systems Constitutional: Negative for activity change, appetite change, fatigue and fever. Respiratory: Negative. Cardiovascular: Negative. Gastrointestinal: Negative. Genitourinary: Negative for difficulty urinating. Skin: Sore on the tip of her nose Neurological: Negative for dizziness, syncope, light-headedness and headaches. Psychiatric/Behavioral: Negative for sleep disturbance and suicidal ideas. The patient is not nervous/anxious. Vitals: 04/29/23 1501 BP: 120/73 Pulse: 90 Resp: 24 Temp: 37.2 C (98.9 F) TempSrc: Infrared SpO2: 96% Weight: 102 lb (46.3 kg) Physical Exam Constitutional: General: She is [...] scoliosis noted Lymphadenopathy: Cervical: No cervical adenopathy. Skin: Comments: Noted tip of nose slightly red and tender, no induration. Area less than 1 cm in diameter. No sores noted within the nares. No open areas. Neurological: Mental Status: She is alert and oriented to person, place, and time. An electronic signature was used to authenticate this note. KATHERINE Escalante CNP 04/29/2023 6:22 PM documented in this encounter [facility] 04-13-2023 Telephone encounter Note Reviewed chart. Refill appropriate. RX sent. [facility] 04-13-2023 Miscellaneous Notes Reviewed chart. Refill appropriate. RX sent. Prescription Request: Last medication check: 03/31/23 Last physical exam: 03/04/23 Next scheduled appointment: 04/29/23 Last date of refill on this medication 03/04/23 documented in this encounter [facility] 04-13-2023 Telephone encounter Note Prescription Request: Last medication check: 03/31/23 Last physical exam: 03/04/23 Next scheduled appointment: 04/29/23 Last date of refill on this medication 03/04/23 [facility] 03-31-2023 Evaluation + Plan note Associated Problem(s): Chronic back pain Stable. Continue Percocet 5-325 mg 1 tablet every 8 hours for severe pain. OARRS reviewed and consistent with treatment plan. Patient will be establishing with pain management in April. We will continue her current medication regimen until that time. Patient advised that if she does not go to pain management appointment at that time I will taper discontinue the medication as we do not typically treat chronic pain. Patient states that she does understand this. Also discussed that the use of marijuana increases the risk for sedation and she should avoid using those medications together. Patient states she understands possible risks associated with using the medications together. [facility] [employer] 03-31-2023 Miscellaneous Notes Associated Problem(s): Chronic back pain Stable. Continue Percocet 5-325 mg 1 tablet every 8 hours for severe pain. OARRS reviewed and consistent with treatment plan. Patient will be establishing with pain management in April. We will continue her current medication regimen until that time. Patient advised that if she does not go to pain management appointment at that time I will taper discontinue the medication as we do not typically treat chronic pain. Patient states that she does understand this. Also discussed that the use of marijuana increases the risk for sedation and she should avoid using those medications together. Patient states she understands possible risks associated with using the medications together. Associated Problem(s): Insomnia Controlled. Continue Lunesta as directed. OARRS consistent with treatment plan. Prescription sent with fill date April 20, 2023 documented in this encounter [facility] [employer] 03-31-2023 Evaluation + Plan note Associated Problem(s): Insomnia Controlled. Continue Lunesta as directed. OARRS consistent with treatment plan. Prescription sent with fill date April 20, 2023 [facility] [employer] 03-31-2023 History of Present illness Narrative Images from the original note were not included. 03/31/2023 Paris Moncada (: 1970) is a 52 y.o. female , Established patient, here for evaluation of the following chief complaint(s): Follow-up (Medication follow up) ASSESSMENT/PLAN: 1. Chronic midline thoracic back pain Assessment & Plan: Stable. Continue Percocet 5-325 mg 1 tablet every 8 hours for severe pain. OARRS reviewed and consistent with treatment plan. Patient will be establishing with pain management in April. We will continue her current medication regimen until that time. Patient advised that if she does not go to pain management appointment at that time I will taper discontinue the medication as we do not typically treat chronic pain. Patient states that she does understand this. Also discussed that the use of marijuana increases the risk for sedation and she should avoid using those medications together. Patient states she understands possible risks associated with using the medications together. Orders: - oxyCODONE-acetaminophen (Percocet) 5-325 MG tablet; Take 1 tablet by mouth every 8 hours as needed for severe pain (7-10). Do not start before April 04, 2023., Starting 04/04/2023, Until Wed05/04/2023 at 2359, Normal 2. Chronic pain syndrome - oxyCODONE-acetaminophen (Percocet) 5-325 MG tablet; Take 1 tablet by mouth every 8 hours as needed for severe pain (7-10). Do not start before April 04, 2023., Starting 04/04/2023, Until Wed05/04/2023 at 2359, Normal 3. Linear scleroderma - oxyCODONE-acetaminophen (Percocet) 5-325 MG tablet; Take 1 tablet by mouth every 8 hours as needed for severe pain (7-10). Do not start before April 04, 2023., Starting 04/04/2023, Until Wed05/04/2023 at 2359, Normal 4. Insomnia, unspecified type Assessment & Plan: Controlled. Continue Lunesta as directed. OARRS consistent with treatment plan. Prescription sent with fill date April 20, 2023 Orders: - eszopiclone (Lunesta) 3 MG tablet; Take 1 tablet (3 mg) by mouth Nightly as needed for sleep. Take immediately before bedtime Do not start before April 20, 2023., Starting 04/20/2023, Until [place]ushi 05/20/2023 at 2359, Normal Follow up in about 1 month (around 04/29/2023). SUBJECTIVE/OBJECTIVE: BRADFORD Moncada (: 1970) is a 52 y.o. female , Established patient, here for the evaluation of the following chief complaint(s): Follow-up (Medication follow up) Reports that she is doing good with work. Living with sister is stressful, Is looking for her own place. Right shoulder pain- sees ortho for this and gets injections that help for awhile. Reports that she has a lump on her right back that bothers her and is tender- states this has been there awhile and her previous provider got an ultrasound of it and said it was negative. No change from previous Using marijuana on the weekends at night for pain. Has medical card, Taking the percocet 5mg/ 325 mg every 8 hours. Reports this helps some but still has difficulty doing her ADLs during the day. She has been referred to pain management to establish and is scheduled with them in april 2023. Patient reminded that I am only bridging her pain medication until then and if she misses the appt, I will be taper discontinuing the opioid pain medication. Also advised her that pain management may decide that she may benefit from a different medication or treatment plan. She states that she understands this. Prior to Admission medications Medication Sig Start Date End Date Taking? Authorizing Provider amitriptyline (Elavil) 50 MG tablet Take 1 tablet (50 mg) by mouth Nightly. 01/04/23 Yes Juancho Goodman MD amLODIPine (Norvasc) 5 MG tablet 5 mg. 07/21/22 03/31/23 Yes Historical Provider, atorvastatin (Lipitor) 20 MG tablet Take 1 tablet (20 mg) by mouth Nightly. 03/09/23 Yes Britta Trinidad APRN - GARRISON buPROPion XL (Wellbutrin XL) 150 MG 24 hr tablet Take 150 mg by mouth daily. 07/21/22 Yes Historical Provider, cetirizine (ZyrTEC ALLERGY) 10 MG tablet 10 mg. 04/30/22 Yes Historical Provider, MD choline fenofibrate (Trilipix) [address] capsule Take by mouth. 11/24/21 Yes Historical Provider, dexlansoprazole (Dexilant) [address] capsule Take 1 capsule (60 mg) by mouth daily. 02/03/23 08/02/23 Yes Brittamarkus Trinidad CURTAIN FRAMER - GARRISON eszopiclone (Lunesta) 3 MG tablet Take 1 tablet (3 mg) by mouth Nightly as needed for sleep. Take immediately before bedtime 03/04/23 04/03/23 Yes Brittakalyan Trinidad APRN - GARRISON naloxone (Narcan) 4 mg/0.1 mL nasal spray ADMINISTER A SINGLE spray INTO ONE NOSTRIL repeat in 3 MINUTES IF... (REFER TO PRESCRIPTION NOTES). 03/04/23 Yes Historical Provider, oxyCODONE-acetaminophen (Percocet) 5-325 MG tablet Take 1 tablet by mouth every 8 hours as needed for severe pain (7-10). 03/04/23 04/03/23 Yes Britta Carlottaenthethan CURTAIN FRAMER - GARRISON tiZANidine (Zanaflex) 4 MG tablet take 2 tablets by mouth at bedtime if needed 03/04/23 Yes Britta Carlottaenthal CURTAIN FRAMER - GARRISON cyanocobalamin (Vitamin B-12) 1000 MCG/ML injection Inject 1,000 mcg into the shoulder, thigh, or buttocks every 30 (thirty) days. 08/12/21 Historical Provider, Review of Systems Constitutional: Negative. HENT: Negative. Eyes: Negative for visual disturbance. Respiratory: Negative. Cardiovascular: Negative. Gastrointestinal: Negative. Genitourinary: Negative for difficulty urinating. Musculoskeletal: Positive for arthralgias, back pain and gait problem. Neurological: Negative for dizziness, light-headedness and headaches. Vitals: 03/31/23 1522 BP: 119/71 Pulse: 87 Temp: 37.2 C (98.9 F) SpO2: 97% Weight: 101 lb (45.8 kg) Height: 4' 6 (1.372 m) Physical [...] to authenticate this note. KATHERINE Escalante CNP 03/31/2023 6:22 PM documented in this encounter [facility] [employer] 03-09-2023 Telephone encounter Note Pt returned call today but states she doesn't want to schedule her colonoscopy until after she sees a physician/requesting office visit. Gave her GI office number for her to call to make appointment. [employer] Work Phone: 03-09-2023 Miscellaneous Notes Pt returned call today but states she doesn't want to schedule her colonoscopy until after she sees a physician/requesting office visit. Gave her GI office number for her to call to make appointment. (2nd attempt) Called today to schedule screening colonoscopy (surveillance program) Left message to call colorectal office at [phone] Screening Colonoscopy (surveillance program) Called pt today to schedule colonoscopy Left message to call colorectal office at [phone] documented in this encounter [facility] 03-09-2023 Telephone encounter Note Name of caller: Paris Contact phone number: [phone] Relationship to Patient: patient Provider: Kasandra Practice: [facility] Chief Complaint/Reason for Call: Patient states she keeps forgetting to take it. She is not at home at the moment and thinks she needs a refill. Pharmacy updated in chart. Please advise. Best time of day caller can be reached: Any Patient advised that office/PCP has 24-48 business hours to return their call: N/A [facility] 03-09-2023 Miscellaneous Notes Name of caller: Paris Contact phone number: [phone] Relationship to Patient: patient Provider: Kasandra Practice: [facility] Chief Complaint/Reason for Call: Patient states she keeps forgetting to take it. She is not at home at the moment and thinks she needs a refill. Pharmacy updated in chart. Please advise. Best time of day caller can be reached: Any Patient advised that office/PCP has 24-48 business hours to return their call: N/A Images from the original note were not included. KATHERINE Escalante EMPLOYEE HEALTH NURSE You 19 minutes ago (11:20 AM) RB Ok, we will have her continue current dose of the atorvastatin 20 mg nightly. Does she need a refill? Left a message to return call. Images from the original note were not included. KATHERINE Escalante CNP You 19 minutes ago (11:20 AM) RB Ok, we will have her continue current dose of the atorvastatin 20 mg nightly. Does she need a refill? Left a message to return call. Ok, we will have her continue current dose of the atorvastatin 20 mg nightly. Does she need a refill? Notified, states she keeps forgetting to take atorvastatin and she needs to get better at that, please advise. ----- Message from KATHERINE Escalante CNP sent at 03/08/2023 9:22 AM EST ----- CBC- platelets very slightly elevated- not concerning, otherwise normal cell counts. CMP- total cholesterol elevated 296, HDL good at 76, Triglycerides elevated at 224, LDL cholesterol elevated at 179. Recommend increasing atorvastatin to 40 mg nightly and rechecking in 4 weeks. Vitamin B12- normal Vit D- low normal- 31 Recommend women's one a day vitamin over the counter daily to keep levels sufficient documented in this encounter [facility] 03-09-2023 Telephone encounter Note Images from the original note were not included. KATHERINE Escalante CNP You 19 minutes ago (11:20 AM) RB Ok, we will have her continue current dose of the atorvastatin 20 mg nightly. Does she need a refill? Left a message to return call. [facility] 03-08-2023 Telephone encounter Note Images from the original note were not included. Britta Bridenthal, CURTAIN FRAMER - EMPLOYEE HEALTH NURSE You 19 minutes ago (11:20 AM) RB Ok, we will have her continue current dose of the atorvastatin 20 mg nightly. Does she need a refill? Left a message to return call. [employer] 03-08-2023 Telephone encounter Note Ok, we will have her continue current dose of the atorvastatin 20 mg nightly. Does she need a refill? [employer] 03-08-2023 Telephone encounter Note Notified, states she keeps forgetting to take atorvastatin and she needs to get better at that, please advise. [employer] 03-08-2023 Telephone encounter Note ----- Message from KATHERINE Escalante CNP sent at 03/08/2023 9:22 AM EST ----- CBC- platelets very slightly elevated- not concerning, otherwise normal cell counts. CMP- total cholesterol elevated 296, HDL good at 76, Triglycerides elevated at 224, LDL cholesterol elevated at 179. Recommend increasing atorvastatin to 40 mg nightly and rechecking in 4 weeks. Vitamin B12- normal Vit D- low normal- 31 Recommend women's one a day vitamin over the counter daily to keep levels sufficient [employer] 03-08-2023 Telephone encounter Note Faxed referral to [facility] and sent info to patient via [employer]. [facility] 03-08-2023 Miscellaneous Notes Faxed referral to [facility] and sent info to patient via [employer]. Referral signed Referral changed. Ready to sign, please send encounter back to me so I can fax. Will need faxed to [phone] once completed. Give patient phone number to contact after signed. I pended the osteo referral and noted [place] location. Below are the 2 locations [facility] has listed. [facility] [address], [place] [address] [facility] [address] [place] [id number] documented in this encounter [facility] 03-08-2023 Telephone encounter Note Referral signed [facility] 03-05-2023 Telephone encounter Note Referral changed. Ready to sign, please send encounter back to me so I can fax. Will need faxed to [phone] once completed. Give patient phone number to contact after signed. [facility] 03-04-2023 Telephone encounter Note I pended the osteo referral and noted [place] location. [facility] [address], [place] [address] [facility] [address] [address] [facility] 03-04-2023 Evaluation + Plan note Associated Problem(s): Acute bacterial conjunctivitis of right eye (Resolved 03/31/2023) Will treat for possible bacterial conjunctivitis of the right eye. Follow-up for worsening or failure for symptoms to improve [facility] [employer] 03-04-2023 Miscellaneous Notes Associated Problem(s): Acute bacterial conjunctivitis of right eye Will treat for possible bacterial conjunctivitis of the right eye. 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 Continue Lunesta 3 mg nightly as needed. OARRS reviewed and consistent with treatment plan CS MA in place Associated Problem(s): Osteoporosis Due to patient's complexity, will refer to osteoporosis clinic Associated Problem(s): Hypertension Controlled. Blood pressure 124/79, continue amlodipine 5 mg daily Associated Problem(s): Hypercholesterolemia Control unknown, continue atorvastatin 20 mg nightly, check cholesterol levels today Associated Problem(s): Depression In remission. Continue amitriptyline 50 mg nightly, Wellbutrin 150 mg daily Associated Problem(s): Chronic back pain Stable. Continue Percocet 5-325 mg 1 tablet every 8 hours for severe pain. OARRS reviewed and consistent with treatment plan. Patient will be establishing with pain management in April. We will continue her current medication regimen until that time. Advised patient that if she does not go to her pain management appointment at that time that I will be taper discontinuing the opioid therapy,as we do not typically treat chronic pain. Patient states that she does understand this. We also discussed use of marijuana and increased risk for sedation with her current medications. Advised to monitor for increased sedation and avoid using medications together. Patient states that she understands the possible risks associated with using medications together. Associated Problem(s): Irritable bowel syndrome Stable. Patient will be seeing residential carpet installer documented in this encounter [facility] 03-04-2023 Miscellaneous Notes Associated Problem(s): Acute bacterial conjunctivitis of right eye (Resolved 03/31/2023) Will treat for possible bacterial conjunctivitis of the right eye. 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 Continue Lunesta 3 mg nightly as needed. OARRS reviewed and consistent with treatment plan CS MA in place Associated Problem(s): Osteoporosis Due to patient's complexity, will refer to osteoporosis clinic Associated Problem(s): Hypertension Controlled. Blood pressure 124/79, continue amlodipine 5 mg daily Associated Problem(s): Hypercholesterolemia Control unknown, continue atorvastatin 20 mg nightly, check cholesterol levels today Associated Problem(s): Depression In remission. Continue amitriptyline 50 mg nightly, Wellbutrin 150 mg daily Associated Problem(s): Chronic back pain Stable. Continue Percocet 5-325 mg 1 tablet every 8 hours for severe pain. OARRS reviewed and consistent with treatment plan. Patient will be establishing with pain management in April. We will continue her current medication regimen until that time. Advised patient that if she does not go to her pain management appointment at that time that I will be taper discontinuing the opioid therapy,as we do not typically treat chronic pain. Patient states that she does understand this. We also discussed use of marijuana and increased risk for sedation with her current medications. Advised to monitor for increased sedation and avoid using medications together. Patient states that she understands the possible risks associated with using medications together. Associated Problem(s): Irritable bowel syndrome Stable. Patient will be seeing residential carpet installer documented in this encounter [facility] [employer] 03-04-2023 Miscellaneous Notes Associated Problem(s): Acute bacterial conjunctivitis of right eye (Resolved 03/31/2023) Will treat for possible bacterial conjunctivitis of the right eye. 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 Continue Lunesta 3 mg nightly as needed. OARRS reviewed and consistent with treatment plan CS MA in place Associated Problem(s): Osteoporosis Due to patient's complexity, will refer to osteoporosis clinic Associated Problem(s): Hypertension Controlled. Blood pressure 124/79, continue amlodipine 5 mg daily Associated Problem(s): Hypercholesterolemia Control unknown, continue atorvastatin 20 mg nightly, check cholesterol levels today Associated Problem(s): Depression In remission. Continue amitriptyline 50 mg nightly, Wellbutrin 150 mg daily Associated Problem(s): Chronic back pain Stable. Continue Percocet 5-325 mg 1 tablet every 8 hours for severe pain. OARRS reviewed and consistent with treatment plan. Patient will be establishing with pain management in April. We will continue her current medication regimen until that time. Advised patient that if she does not go to her pain management appointment at that time that I will be taper discontinuing the opioid therapy,as we do not typically treat chronic pain. Patient states that she does understand this. We also discussed use of marijuana and increased risk for sedation with her current medications. Advised to monitor for increased sedation and avoid using medications together. Patient states that she understands the possible risks associated with using medications together. Associated Problem(s): Irritable bowel syndrome Stable. 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 Continue Lunesta 3 mg nightly as needed. OARRS reviewed and consistent with treatment plan CS MA in place [facility] [employer] 03-04-2023 Evaluation + Plan note Associated Problem(s): Osteoporosis Due to patient's complexity, will refer to osteoporosis clinic [facility] [employer] 03-04-2023 Evaluation + Plan note Associated Problem(s): Hypertension Controlled. Blood pressure 124/79, continue amlodipine 5 mg daily [facility] [employer] 03-04-2023 Evaluation + Plan note Associated Problem(s): Hypercholesterolemia Control unknown, continue atorvastatin 20 mg nightly, check cholesterol levels today [facility] [employer] 03-04-2023 Evaluation + Plan note Associated Problem(s): Depression In remission. Continue amitriptyline 50 mg nightly, Wellbutrin 150 mg daily [facility] [employer] 03-04-2023 Evaluation + Plan note Associated Problem(s): Chronic back pain Stable. Continue Percocet 5-325 mg 1 tablet every 8 hours for severe pain. OARRS reviewed and consistent with treatment plan. Patient will be establishing with pain management in April. We will continue her current medication regimen until that time. Advised patient that if she does not go to her pain management appointment at that time that I will be taper discontinuing the opioid therapy,as we do not typically treat chronic pain. Patient states that she does understand this. We also discussed use of marijuana and increased risk for sedation with her current medications. Advised to monitor for increased sedation and avoid using medications together. Patient states that she understands the possible risks associated with using medications together. [facility] 03-04-2023 Evaluation + Plan note Associated Problem(s): Irritable bowel syndrome Stable. Patient will be seeing residential carpet installer [facility] 03-04-2023 History of Present illness Narrative Patient was identified by name and Date of . HM: AWV-Today Colon-pended prior Lung screen-pended Dexa screen-pended [facility] Images from the original note were not included. [facility] [address] [facility] [address] Dept: [phone] Dept Chief Complaint: Paris Moncada is an 52 y.o. female here for an annual wellness visit. Assessment/Plan : Problem List Items Addressed This Visit Nervous Insomnia Controlled. Continue Lunesta 3 mg nightly as needed. OARRS reviewed and consistent with treatment plan CS MA in place Relevant Medications eszopiclone (Lunesta) 3 MG tablet Circulatory Hypertension Controlled. Blood pressure 124/79, continue amlodipine 5 mg daily Relevant Orders Comprehensive metabolic panel Digestive Irritable bowel syndrome Stable. 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 Follow-up for worsening or failure for symptoms to improve Relevant Medications trimethoprim-polymyxin b (Polytrim) ophthalmic solution Other Linear scleroderma Relevant Medications oxyCODONE-acetaminophen (Percocet) 5-325 MG tablet Chronic back pain Stable. Continue Percocet 5-325 mg 1 tablet every 8 hours for severe pain. OARRS reviewed and consistent with treatment plan. Patient will be establishing with pain management in April. We will continue her current medication regimen until that time. Advised patient that if she does not go to her pain management appointment at that time that I will be taper discontinuing the opioid therapy,as we do not typically treat chronic pain. Patient states that she does understand this. We also discussed use of marijuana and increased risk for sedation with her current medications. Advised to monitor for increased sedation and avoid using medications together. Patient states that she understands the possible risks associated with using medications together. Relevant Medications oxyCODONE-acetaminophen (Percocet) 5-325 MG tablet tiZANidine (Zanaflex) 4 MG tablet naloxone (Narcan) 4 mg/0.1 mL nasal spray Depression In remission. Continue amitriptyline 50 mg nightly, Wellbutrin 150 mg daily Hypercholesterolemia Control unknown, continue atorvastatin 20 mg nightly, check cholesterol levels today Relevant Orders Lipid panel Other Visit Diagnoses Routine general medical examination at health care facility - Primary Screening for deficiency anemia Relevant Orders CBC Screening for lung cancer Relevant Orders CT lung screening low dose Encounter for screening mammogram for malignant neoplasm of breast Relevant Orders Hm Mammography (Completed) Encounter for vitamin deficiency screening Relevant Orders Vitamin B12 Vitamin D Deficiency Screening (Vit D 25) I have reviewed and reconciled the medication list with the patient today. Current Outpatient Medications Medication Sig Dispense Refill amitriptyline (Elavil) 50 MG tablet Take 1 tablet (50 mg) by mouth Nightly. 90 tablet 1 amLODIPine (Norvasc) 5 MG tablet 5 mg. atorvastatin (Lipitor) 20 MG tablet Take 1 tablet by mouth Nightly. buPROPion XL (Wellbutrin XL) 150 MG 24 hr tablet Take 150 mg by mouth daily. cetirizine (ZyrTEC ALLERGY) 10 MG tablet 10 mg. choline fenofibrate (Trilipix) [address] capsule Take by mouth. dexlansoprazole (Dexilant) [address] capsule Take 1 capsule (60 mg) by mouth daily. 90 capsule 1 cyanocobalamin (Vitamin B-12) 1000 MCG/ML injection Inject 1,000 mcg into the shoulder, thigh, or buttocks every 30 (thirty) days. eszopiclone (Lunesta) 3 MG tablet Take 1 tablet (3 mg) by mouth Nightly as needed for sleep. Take immediately before bedtime 30 tablet 0 naloxone (Narcan) 4 mg/0.1 mL nasal spray Administer 1 spray (4 mg) into affected nostril(s) Once for 1 dose. May repeat every 2-3 minutes if needed, alternating nostrils, until medical assistance becomes available. 1 each 0 oxyCODONE-acetaminophen (Percocet) 5-325 MG tablet Take 1 tablet by mouth every 8 hours as needed for severe pain (7-10). 90 tablet 0 tiZANidine (Zanaflex) 4 MG tablet take 2 tablets by mouth at bedtime if needed 30 tablet 1 trimethoprim-polymyxin b (Polytrim) ophthalmic solution Administer 1 drop into the right eye in the morning and 1 drop at noon and 1 drop in the evening and 1 drop before bedtime. Do all this for 7 days. 10 mL 0 No current facility-administered medications for this visit. Also reviewed during this visit: Lives with sister and going ok - is working on getting another apartment on her own when the lease is up in June. 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 Had covid over addie. Whole family had it. Dad was in the hospital with it, states she is completely over her symptoms now. Right eye irritation and drainage, has had some redness crusting and irritation x 1 week. No pain or change in vision. Chronic pain-shows me her medical marijuana card today. States she is using Gummies usually at night due to her pain. Patient also using Percocet 1 tablet every 8 hours for pain, pain is mostly back right shoulder and left side of the body. Has osteoarthritis in several joints. Her pain does seem controlled enough that it allows her to go to work daily, and do this things that she needs to do. She will be establishing with pain management soon and we discussed that I will no longer be providing her the opioid prescription thereafter. Advised if she misses her pain management appointment, that I will be taper discontinuing the opioid as we do not manage chronic pain with opioid therapy here. The following health maintenance schedule was reviewed with the patient and provided in printed form in the after visit summary: Health Maintenance Topic Date Due Medicare Advantage Annual Wellness Visit (AWV) Never done Lung Cancer Screening Never done Bone Density Scan 01/20/2023 Cervical Cancer Screening 03/06/2023 (Originally 2002) Colorectal Cancer Screening 04/04/2023 (Originally 1972) Diabetes Screening 05/05/2023 (Originally 1990) DTaP/Tdap/Td Vaccines (1 - Tdap) 02/04/2024 (Originally 06/08/1991) Hepatitis B Vaccines (1 of 3 - 3-dose series) 02/04/2024 (Originally 1972) Zoster Vaccines (1 of 2) 02/04/2024 (Originally 2022) HIV Screening 02/04/2024 (Originally 1972) COVID-19 Vaccine (1) 02/04/2024 (Originally 1972) Depresssion Monitoring 05/26/2023 Mammogram 03/04/2024 Lipid Panel 01/29/2027 RSV Immunization aged 60 or older (1 - 1-dose 60+ series) 2032 Influenza Vaccine Completed Pneumococcal Vaccine: Pediatrics (0 to 5 Years) and At-Risk Patients (6 to 64 Years) Completed Hepatitis C Screening Completed RSV Immunization under 20 Months Aged Out HIB Vaccines Aged Out IPV Vaccines Aged Out Hepatitis A Vaccines Aged Out Meningococcal Vaccine Aged Out Rotavirus Vaccines Aged Out HPV Vaccines Aged Out MMR Vaccines Discontinued List of current healthcare providers: Patient Care Team: Juancho Goodman MD as PCP - General (Family Medicine) Orders Placed This Encounter Procedures CT lung screening low dose Standing Status: Future Standing Expiration Date: 03/04/2024 Order Specific Question: Is the patient ? Answer: No Order Specific Question: For this exam, the patient must be between 50-80 years of age. Does this patient meet that criteria? Answer: Yes Order Specific Question: Does the patient show any signs or symptoms of lung cancer? Answer: No Order Specific Question: Is this the first (baseline) CT or an annual exam? Answer: Baseline [1] Order Specific Question: What is the patient's current smoking status? Answer: Current Smoker Order Specific Question: What is the patient's total pack years? (must be at least 20 pack years) Answer: 28 Order Specific Question: Is there documentation of shared decision making? Answer: Yes Order Specific Question: Has it been at least 11 months since the patient's last CT scan? Answer: No Hm Mammography Comprehensive metabolic panel Standing Status: Future Number of Occurrences: 1 Standing Expiration Date: 03/04/2024 CBC Standing Status: Future Number of Occurrences: 1 Standing Expiration Date: 03/04/2024 Lipid panel Standing Status: Future Number of Occurrences: 1 Standing Expiration Date: 03/04/2024 Vitamin B12 Standing Status: Future Number of Occurrences: 1 Standing Expiration Date: 03/04/2024 Vitamin D Deficiency Screening (Vit D 25) Standing Status: Future Number of Occurrences: 1 Standing Expiration Date: 03/04/2024 Subjective : Review of Systems Constitutional: Negative for activity change, chills, fatigue and fever. HENT: Negative. Eyes: Positive for discharge, redness and visual disturbance. Negative for photophobia, pain and itching. Respiratory: Negative. Cardiovascular: Negative. Gastrointestinal: Negative for abdominal pain, constipation, diarrhea and nausea. Genitourinary: Negative for difficulty urinating. Musculoskeletal: Positive for arthralgias, back pain, joint swelling and myalgias. Right shoulder- gets injections was last 1.5 ago. Neurological: Negative for dizziness and light-headedness. Psychiatric/Behavioral: Positive for decreased concentration and dysphoric mood. Negative for agitation and sleep disturbance. The patient is not nervous/anxious. Thinks it is more situational with sister Physical Exam Constitutional: General: She is not in acute distress. Appearance: She is not ill-appearing. HENT: Head: Normocephalic. Right Ear: Tympanic membrane normal. Left Ear: Tympanic membrane normal. Nose: No congestion or rhinorrhea. Mouth/Throat: Mouth: Mucous membranes are moist. Pharynx: Oropharynx is clear. Comments: A dentulous Eyes: Conjunctiva/sclera: Right eye: Right conjunctiva is not injected. Chemosis and exudate present. No hemorrhage. Comments: Left eyelid sewn shut Cardiovascular: [...] and oriented to person, place, and time. Health Risk Assessment: General: General In general, how would you say your health is?: (!) Fair In the past 7 days, have you experienced any of the following: New or Increased Pain, New or Increased Fatigue, Loneliness, Social Isolation, Stress or Anger?: (!) Yes Select all that apply: (!) New or Increased Pain Do you get the social and emotional suppport you need?: (!) No Interventions: Poor self-assessment of health status: Patient reports being frustrated with her living situation, currently lives with her sister who does not seem to be helping with keeping the house clean and Pain Issues: Pain management referral ordered Health Habits/Nutrition: Health Habits / Nutrition On average, how many days per week do you engage in moderate to strenous exercise (like a brisk walk)?: (!) (P) 0 days On average, how man minutes do you engage in exercise at this level?: (!) (P) 0 min Have you lost any weight without trying in the past 3 months? : (P) No Have you seen the dentist within the past year?: (!) (P) No Interventions: Dental exam overdue: Patient encouraged to make appointment with his / her dentist Hearing/ Vision: Hearing / Vision Do you or your family notice any trouble with your hearing that hasn't been managed with hearing aids?: (P) No Do you have difficulty driving, watching TV, or doing any of your daily activities because of your eyesight?: (P) No Have you had an eye exam within the past year?: (P) Yes No results found. Safety: Safety Do you have a working smoke detector?: (P) Yes Do you have any tripping hazards - loose or unsecured carpets or rugs?: (P) No Do you have any tripping hazards - clutter in doorways, halls, or stairs?: (P) No Do you have either shower bars, grab bars, non-slip mats or non-slip surfaces in your shower or bathtub? : (P) Yes Do all your stairways have a railing or banister? : (P) Yes Do you fasten your seatbelt when you are in a car?: (P) Yes ADL: ADL In the past 7 days, did you need help from others to perform any of the following everyday activities: Eating, dressing, grooming,bathing, toileting, or walking / balance? : (P) No In the past 7 days, did you need help from others to take care of any of the following: laundry, housekeeping, banking / finances,shopping, telephone use, food preparation, transportation, or taking medications? : (P) No Living Will: Living Will Do you have a living will?: (P) No Interventions: Advance Care Planning addressed with patient today MPOA - will be [place] Cognitive: Cognitive Screening: Mini-Cog Clock Drawing Test (CDT): 2 Words Recalled: 3 Total Score: 5 Total Score Interpretation: Normal Mini-Cog Interventions: Fall Risk: Fall Risk One or more falls in the last year:: Yes Advised to use a cane or walker to get around safely:: Yes Feels unsteady when walking:: Yes Steadies self on furniture while walking at home:: Yes Worried about falling:: Yes Interventions: Home safety tips provided Clarified no fall-patient reports that when she was getting into the car she fell hard back into the seat but it was not a fall Depression Screening: Interventions: Tobacco Use: Social History Tobacco Use Smoking Status Every Day Packs/day: 1.00 Years: 35.00 Additional pack years: 0.00 Total pack years: 35.00 Types: Cigarettes Smokeless Tobacco Never Encourage smoking cessation. Discussed risks and benefits of lung cancer screening. Patient wishes to move forward with screening. Alcohol Use: Audit Alcohol Screening Q1: How often do you have a drink containing alcohol?: (P) Monthly or less Q2: How many drinks containing alcohol do you have on a typical day when you are drinking?: (P) 1 or 2 Q3: How often do you have six or more drinks on one occasion?: (P) Never Audit-C Score: (P) 1 Skip to questions 9-10?: (P) 1 Objective : BP 124/79 Pulse 102 Temp 37.2 C (98.9 F) (Infrared) Resp 24 Ht 4' 6 (1.372 m) Wt 99 lb 12.8 oz (45.3 kg) SpO2 97% BMI 24.06 kg/m No results found. documented in this encounter [facility] 03-04-2023 History of Present illness Narrative Patient was identified by name and Date of . HM: AWV-Today Colon-pended prior Lung screen-pended Dexa screen-pended Mammo-pended get earl [place] send kathrin Images from the original note were not included. [facility] [address] [facility] [address] Dept: [phone] Dept Chief Complaint: Paris Moncada is an 52 y.o. female here for an annual wellness visit. Assessment/Plan : Problem List Items Addressed This Visit Nervous Insomnia Controlled. Continue Lunesta 3 mg nightly as needed. OARRS reviewed and consistent with treatment plan CS MA in place Relevant Medications eszopiclone (Lunesta) 3 MG tablet Circulatory Hypertension Controlled. Blood pressure 124/79, continue amlodipine 5 mg daily Relevant Orders Comprehensive metabolic panel Digestive Irritable bowel syndrome Stable. 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 Follow-up for worsening or failure for symptoms to improve Relevant Medications trimethoprim-polymyxin b (Polytrim) ophthalmic solution Other Linear scleroderma Relevant Medications oxyCODONE-acetaminophen (Percocet) 5-325 MG tablet Chronic back pain Stable. Continue Percocet 5-325 mg 1 tablet every 8 hours for severe pain. OARRS reviewed and consistent with treatment plan. Patient will be establishing with pain management in April. We will continue her current medication regimen until that time. Advised patient that if she does not go to her pain management appointment at that time that I will be taper discontinuing the opioid therapy,as we do not typically treat chronic pain. Patient states that she does understand this. We also discussed use of marijuana and increased risk for sedation with her current medications. Advised to monitor for increased sedation and avoid using medications together. Patient states that she understands the possible risks associated with using medications together. Relevant Medications oxyCODONE-acetaminophen (Percocet) 5-325 MG tablet tiZANidine (Zanaflex) 4 MG tablet naloxone (Narcan) 4 mg/0.1 mL nasal spray Depression In remission. Continue amitriptyline 50 mg nightly, Wellbutrin 150 mg daily Hypercholesterolemia Control unknown, continue atorvastatin 20 mg nightly, check cholesterol levels today Relevant Orders Lipid panel Other Visit Diagnoses Routine general medical examination at health care facility - Primary Screening for deficiency anemia Relevant Orders CBC Screening for lung cancer Relevant Orders CT lung screening low dose Encounter for screening mammogram for malignant neoplasm of breast Relevant Orders Hm Mammography (Completed) Encounter for vitamin deficiency screening Relevant Orders Vitamin B12 Vitamin D Deficiency Screening (Vit D 25) I have reviewed and reconciled the medication list with the patient today. Current Outpatient Medications Medication Sig Dispense Refill amitriptyline (Elavil) 50 MG tablet Take 1 tablet (50 mg) by mouth Nightly. 90 tablet 1 amLODIPine (Norvasc) 5 MG tablet 5 mg. atorvastatin (Lipitor) 20 MG tablet Take 1 tablet by mouth Nightly. buPROPion XL (Wellbutrin XL) 150 MG 24 hr tablet Take 150 mg by mouth daily. cetirizine (ZyrTEC ALLERGY) 10 MG tablet 10 mg. choline fenofibrate (Trilipix) [address] capsule Take by mouth. dexlansoprazole (Dexilant) [address] capsule Take 1 capsule (60 mg) by mouth daily. 90 capsule 1 cyanocobalamin (Vitamin B-12) 1000 MCG/ML injection Inject 1,000 mcg into the shoulder, thigh, or buttocks every 30 (thirty) days. eszopiclone (Lunesta) 3 MG tablet Take 1 tablet (3 mg) by mouth Nightly as needed for sleep. Take immediately before bedtime 30 tablet 0 naloxone (Narcan) 4 mg/0.1 mL nasal spray Administer 1 spray (4 mg) into affected nostril(s) Once for 1 dose. May repeat every 2-3 minutes if needed, alternating nostrils, until medical assistance becomes available. 1 each 0 oxyCODONE-acetaminophen (Percocet) 5-325 MG tablet Take 1 tablet by mouth every 8 hours as needed for severe pain (7-10). 90 tablet 0 tiZANidine (Zanaflex) 4 MG tablet take 2 tablets by mouth at bedtime if needed 30 tablet 1 trimethoprim-polymyxin b (Polytrim) ophthalmic solution Administer 1 drop into the right eye in the morning and 1 drop at noon and 1 drop in the evening and 1 drop before bedtime. Do all this for 7 days. 10 mL 0 No current facility-administered medications for this visit. Also reviewed during this visit: Lives with sister and going ok - is working on getting another apartment on her own when the lease is up in June. 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 Had covid over addie. Whole family had it. Dad was in the hospital with it, states she is completely over her symptoms now. Right eye irritation and drainage, has had some redness crusting and irritation x 1 week. No pain or change in vision. Chronic pain-shows me her medical marijuana card today. States she is using Gummies usually at night due to her pain. Patient also using Percocet 1 tablet every 8 hours for pain, pain is mostly back right shoulder and left side of the body. Has osteoarthritis in several joints. Her pain does seem controlled enough that it allows her to go to work daily, and do this things that she needs to do. She will be establishing with pain management soon and we discussed that I will no longer be providing her the opioid prescription thereafter. Advised if she misses her pain management appointment, that I will be taper discontinuing the opioid as we do not manage chronic pain with opioid therapy here. The following health maintenance schedule was reviewed with the patient and provided in printed form in the after visit summary: Health Maintenance Topic Date Due Medicare Advantage Annual Wellness Visit (AWV) Never done Lung Cancer Screening Never done Bone Density Scan 01/20/2023 Cervical Cancer Screening 03/06/2023 (Originally 2002) Colorectal Cancer Screening 04/04/2023 (Originally 1972) Diabetes Screening 05/05/2023 (Originally 1990) DTaP/Tdap/Td Vaccines (1 - Tdap) 02/04/2024 (Originally 06/08/1991) Hepatitis B Vaccines (1 of 3 - 3-dose series) 02/04/2024 (Originally 1972) Zoster Vaccines (1 of 2) 02/04/2024 (Originally 2022) HIV Screening 02/04/2024 (Originally 1972) COVID-19 Vaccine (1) 02/04/2024 (Originally 1972) Depresssion Monitoring 05/26/2023 Mammogram 03/04/2024 Lipid Panel 01/29/2027 RSV Immunization aged 60 or older (1 - 1-dose 60+ series) 2032 Influenza Vaccine Completed Pneumococcal Vaccine: Pediatrics (0 to 5 Years) and At-Risk Patients (6 to 64 Years) Completed Hepatitis C Screening Completed RSV Immunization under 20 Months Aged Out HIB Vaccines Aged Out IPV Vaccines Aged Out Hepatitis A Vaccines Aged Out Meningococcal Vaccine Aged Out Rotavirus Vaccines Aged Out HPV Vaccines Aged Out MMR Vaccines Discontinued List of current healthcare providers: Patient Care Team: Juancho Goodman MD as PCP - General (Family Medicine) Orders Placed This Encounter Procedures CT lung screening low dose Standing Status: Future Standing Expiration Date: 03/04/2024 Order Specific Question: Is the patient ? Answer: No Order Specific Question: For this exam, the patient must be between 50-80 years of age. Does this patient meet that criteria? Answer: Yes Order Specific Question: Does the patient show any signs or symptoms of lung cancer? Answer: No Order Specific Question: Is this the first (baseline) CT or an annual exam? Answer: Baseline [1] Order Specific Question: What is the patient's current smoking status? Answer: Current Smoker Order Specific Question: What is the patient's total pack years? (must be at least 20 pack years) Answer: 28 Order Specific Question: Is there documentation of shared decision making? Answer: Yes Order Specific Question: Has it been at least 11 months since the patient's last CT scan? Answer: No Hm Mammography Comprehensive metabolic panel Standing Status: Future Number of Occurrences: 1 Standing Expiration Date: 03/04/2024 CBC Standing Status: Future Number of Occurrences: 1 Standing Expiration Date: 03/04/2024 Lipid panel Standing Status: Future Number of Occurrences: 1 Standing Expiration Date: 03/04/2024 Vitamin B12 Standing Status: Future Number of Occurrences: 1 Standing Expiration Date: 03/04/2024 Vitamin D Deficiency Screening (Vit D 25) Standing Status: Future Number of Occurrences: 1 Standing Expiration Date: 03/04/2024 Subjective : Review of Systems Constitutional: Negative for activity change, chills, fatigue and fever. HENT: Negative. Eyes: Positive for discharge, redness and visual disturbance. Negative for photophobia, pain and itching. Respiratory: Negative. Cardiovascular: Negative. Gastrointestinal: Negative for abdominal pain, constipation, diarrhea and nausea. Genitourinary: Negative for difficulty urinating. Musculoskeletal: Positive for arthralgias, back pain, joint swelling and myalgias. Right shoulder- gets injections was last 1.5 ago. Neurological: Negative for dizziness and light-headedness. Psychiatric/Behavioral: Positive for decreased concentration and dysphoric mood. Negative for agitation and sleep disturbance. The patient is not nervous/anxious. Thinks it is more situational with sister Physical Exam Constitutional: General: She is not in acute distress. Appearance: She is not ill-appearing. HENT: Head: Normocephalic. Right Ear: Tympanic membrane normal. Left Ear: Tympanic membrane normal. Nose: No congestion or rhinorrhea. Mouth/Throat: Mouth: Mucous membranes are moist. Pharynx: Oropharynx is clear. Comments: A dentulous Eyes: Conjunctiva/sclera: Right eye: Right conjunctiva is not injected. Chemosis and exudate present. No hemorrhage. Comments: Left eyelid sewn shut Cardiovascular: [...] and oriented to person, place, and time. Health Risk Assessment: General: General In general, how would you say your health is?: (!) Fair In the past 7 days, have you experienced any of the following: New or Increased Pain, New or Increased Fatigue, Loneliness, Social Isolation, Stress or Anger?: (!) Yes Select all that apply: (!) New or Increased Pain Do you get the social and emotional suppport you need?: (!) No Interventions: Poor self-assessment of health status: Patient reports being frustrated with her living situation, currently lives with her sister who does not seem to be helping with keeping the house clean and Pain Issues: Pain management referral ordered Health Habits/Nutrition: Health Habits / Nutrition On average, how many days per week do you engage in moderate to strenous exercise (like a brisk walk)?: (!) (P) 0 days On average, how man minutes do you engage in exercise at this level?: (!) (P) 0 min Have you lost any weight without trying in the past 3 months? : (P) No Have you seen the dentist within the past year?: (!) (P) No Interventions: Dental exam overdue: Patient encouraged to make appointment with his / her dentist Hearing/ Vision: Hearing / Vision Do you or your family notice any trouble with your hearing that hasn't been managed with hearing aids?: (P) No Do you have difficulty driving, watching TV, or doing any of your daily activities because of your eyesight?: (P) No Have you had an eye exam within the past year?: (P) Yes No results found. Safety: Safety Do you have a working smoke detector?: (P) Yes Do you have any tripping hazards - loose or unsecured carpets or rugs?: (P) No Do you have any tripping hazards - clutter in doorways, halls, or stairs?: (P) No Do you have either shower bars, grab bars, non-slip mats or non-slip surfaces in your shower or bathtub? : (P) Yes Do all your stairways have a railing or banister? : (P) Yes Do you fasten your seatbelt when you are in a car?: (P) Yes ADL: ADL In the past 7 days, did you need help from others to perform any of the following everyday activities: Eating, dressing, grooming,bathing, toileting, or walking / balance? : (P) No In the past 7 days, did you need help from others to take care of any of the following: laundry, housekeeping, banking / finances,shopping, telephone use, food preparation, transportation, or taking medications? : (P) No Living Will: Living Will Do you have a living will?: (P) No Interventions: Advance Care Planning addressed with patient today MPOA - will be brotherGol Cognitive: Cognitive Screening: Mini-Cog Clock Drawing Test (CDT): 2 Words Recalled: 3 Total Score: 5 Total Score Interpretation: Normal Mini-Cog Interventions: Fall Risk: Fall Risk One or more falls in the last year:: Yes Advised to use a cane or walker to get around safely:: Yes Feels unsteady when walking:: Yes Steadies self on furniture while walking at home:: Yes Worried about falling:: Yes Interventions: Home safety tips provided Clarified no fall-patient reports that when she was getting into the car she fell hard back into the seat but it was not a fall Depression Screening: Interventions: Tobacco Use: Social History Tobacco Use Smoking Status Every Day Packs/day: 1.00 Years: 35.00 Additional pack years: 0.00 Total pack years: 35.00 Types: Cigarettes Smokeless Tobacco Never Encourage smoking cessation. Discussed risks and benefits of lung cancer screening. Patient wishes to move forward with screening. Alcohol Use: Audit Alcohol Screening Q1: How often do you have a drink containing alcohol?: (P) Monthly or less Q2: How many drinks containing alcohol do you have on a typical day when you are drinking?: (P) 1 or 2 Q3: How often do you have six or more drinks on one occasion?: (P) Never Audit-C Score: (P) 1 Skip to questions 9-10?: (P) 1 Objective : BP 124/79 Pulse 102 Temp 37.2 C (98.9 F) (Infrared) Resp 24 Ht 4' 6 (1.372 m) Wt 99 lb 12.8 oz (45.3 kg) SpO2 97% BMI 24.06 kg/m No results found. documented in this encounter [facility] 03-04-2023 History of Present illness Narrative Patient was identified by name and Date of . HM: AWV-Today Colon-pended prior Lung screen-pended Dexa screen-pended Mammo-pended get earl pink send kathrin Images from the original note were not included. [facility] [address] [facility] [address] [facility] [id number] Dept: [phone] Dept Chief Complaint: Paris Moncada is an 52 y.o. female here for an annual wellness visit. Assessment/Plan : Problem List Items Addressed This Visit Nervous Insomnia Controlled. Continue Lunesta 3 mg nightly as needed. OARRS reviewed and consistent with treatment plan CS MA in place Relevant Medications eszopiclone (Lunesta) 3 MG tablet Circulatory Hypertension Controlled. Blood pressure 124/79, continue amlodipine 5 mg daily Relevant Orders Comprehensive metabolic panel Digestive Irritable bowel syndrome Stable. 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 Follow-up for worsening or failure for symptoms to improve Relevant Medications trimethoprim-polymyxin b (Polytrim) ophthalmic solution Other Linear scleroderma Relevant Medications oxyCODONE-acetaminophen (Percocet) 5-325 MG tablet Chronic back pain Stable. Continue Percocet 5-325 mg 1 tablet every 8 hours for severe pain. OARRS reviewed and consistent with treatment plan. Patient will be establishing with pain management in April. We will continue her current medication regimen until that time. Advised patient that if she does not go to her pain management appointment at that time that I will be taper discontinuing the opioid therapy,as we do not typically treat chronic pain. Patient states that she does understand this. We also discussed use of marijuana and increased risk for sedation with her current medications. Advised to monitor for increased sedation and avoid using medications together. Patient states that she understands the possible risks associated with using medications together. Relevant Medications oxyCODONE-acetaminophen (Percocet) 5-325 MG tablet tiZANidine (Zanaflex) 4 MG tablet naloxone (Narcan) 4 mg/0.1 mL nasal spray Depression In remission. Continue amitriptyline 50 mg nightly, Wellbutrin 150 mg daily Hypercholesterolemia Control unknown, continue atorvastatin 20 mg nightly, check cholesterol levels today Relevant Orders Lipid panel Other Visit Diagnoses Routine general medical examination at health care facility - Primary Screening for deficiency anemia Relevant Orders CBC Screening for lung cancer Relevant Orders CT lung screening low dose Encounter for screening mammogram for malignant neoplasm of breast Relevant Orders Hm Mammography (Completed) Encounter for vitamin deficiency screening Relevant Orders Vitamin B12 Vitamin D Deficiency Screening (Vit D 25) I have reviewed and reconciled the medication list with the patient today. Current Outpatient Medications Medication Sig Dispense Refill amitriptyline (Elavil) 50 MG tablet Take 1 tablet (50 mg) by mouth Nightly. 90 tablet 1 amLODIPine (Norvasc) 5 MG tablet 5 mg. atorvastatin (Lipitor) 20 MG tablet Take 1 tablet by mouth Nightly. buPROPion XL (Wellbutrin XL) 150 MG 24 hr tablet Take 150 mg by mouth daily. cetirizine (ZyrTEC ALLERGY) 10 MG tablet 10 mg. choline fenofibrate (Trilipix) [address] capsule Take by mouth. dexlansoprazole (Dexilant) [address] capsule Take 1 capsule (60 mg) by mouth daily. 90 capsule 1 cyanocobalamin (Vitamin B-12) 1000 MCG/ML injection Inject 1,000 mcg into the shoulder, thigh, or buttocks every 30 (thirty) days. eszopiclone (Lunesta) 3 MG tablet Take 1 tablet (3 mg) by mouth Nightly as needed for sleep. Take immediately before bedtime 30 tablet 0 naloxone (Narcan) 4 mg/0.1 mL nasal spray Administer 1 spray (4 mg) into affected nostril(s) Once for 1 dose. May repeat every 2-3 minutes if needed, alternating nostrils, until medical assistance becomes available. 1 each 0 oxyCODONE-acetaminophen (Percocet) 5-325 MG tablet Take 1 tablet by mouth every 8 hours as needed for severe pain (7-10). 90 tablet 0 tiZANidine (Zanaflex) 4 MG tablet take 2 tablets by mouth at bedtime if needed 30 tablet 1 trimethoprim-polymyxin b (Polytrim) ophthalmic solution Administer 1 drop into the right eye in the morning and 1 drop at noon and 1 drop in the evening and 1 drop before bedtime. Do all this for 7 days. 10 mL 0 No current facility-administered medications for this visit. Also reviewed during this visit: Lives with sister and going ok - is working on getting another apartment on her own when the lease is up in June. 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 Had covid over addie. Whole family had it. Dad was in the hospital with it, states she is completely over her symptoms now. Right eye irritation and drainage, has had some redness crusting and irritation x 1 week. No pain or change in vision. Chronic pain-shows me her medical marijuana card today. States she is using Gummies usually at night due to her pain. Patient also using Percocet 1 tablet every 8 hours for pain, pain is mostly back right shoulder and left side of the body. Has osteoarthritis in several joints. Her pain does seem controlled enough that it allows her to go to work daily, and do this things that she needs to do. She will be establishing with pain management soon and we discussed that I will no longer be providing her the opioid prescription thereafter. Advised if she misses her pain management appointment, that I will be taper discontinuing the opioid as we do not manage chronic pain with opioid therapy here. The following health maintenance schedule was reviewed with the patient and provided in printed form in the after visit summary: Health Maintenance Topic Date Due Medicare Advantage Annual Wellness Visit (AWV) Never done Lung Cancer Screening Never done Bone Density Scan 01/20/2023 Cervical Cancer Screening 03/06/2023 (Originally 2002) Colorectal Cancer Screening 04/04/2023 (Originally 1972) Diabetes Screening 05/05/2023 (Originally 1990) DTaP/Tdap/Td Vaccines (1 - Tdap) 02/04/2024 (Originally 06/08/1991) Hepatitis B Vaccines (1 of 3 - 3-dose series) 02/04/2024 (Originally 1972) Zoster Vaccines (1 of 2) 02/04/2024 (Originally 2022) HIV Screening 02/04/2024 (Originally 1972) COVID-19 Vaccine (1) 02/04/2024 (Originally 1972) Depresssion Monitoring 05/26/2023 Mammogram 03/04/2024 Lipid Panel 01/29/2027 RSV Immunization aged 60 or older (1 - 1-dose 60+ series) 2032 Influenza Vaccine Completed Pneumococcal Vaccine: Pediatrics (0 to 5 Years) and At-Risk Patients (6 to 64 Years) Completed Hepatitis C Screening Completed RSV Immunization under 20 Months Aged Out HIB Vaccines Aged Out IPV Vaccines Aged Out Hepatitis A Vaccines Aged Out Meningococcal Vaccine Aged Out Rotavirus Vaccines Aged Out HPV Vaccines Aged Out MMR Vaccines Discontinued List of current healthcare providers: Patient Care Team: Juancho Goodman MD as PCP - General (Family Medicine) Orders Placed This Encounter Procedures CT lung screening low dose Standing Status: Future Standing Expiration Date: 03/04/2024 Order Specific Question: Is the patient ? Answer: No Order Specific Question: For this exam, the patient must be between 50-80 years of age. Does this patient meet that criteria? Answer: Yes Order Specific Question: Does the patient show any signs or symptoms of lung cancer? Answer: No Order Specific Question: Is this the first (baseline) CT or an annual exam? Answer: Baseline [1] Order Specific Question: What is the patient's current smoking status? Answer: Current Smoker Order Specific Question: What is the patient's total pack years? (must be at least 20 pack years) Answer: 28 Order Specific Question: Is there documentation of shared decision making? Answer: Yes Order Specific Question: Has it been at least 11 months since the patient's last CT scan? Answer: No Hm Mammography Comprehensive metabolic panel Standing Status: Future Number of Occurrences: 1 Standing Expiration Date: 03/04/2024 CBC Standing Status: Future Number of Occurrences: 1 Standing Expiration Date: 03/04/2024 Lipid panel Standing Status: Future Number of Occurrences: 1 Standing Expiration Date: 03/04/2024 Vitamin B12 Standing Status: Future Number of Occurrences: 1 Standing Expiration Date: 03/04/2024 Vitamin D Deficiency Screening (Vit D 25) Standing Status: Future Number of Occurrences: 1 Standing Expiration Date: 03/04/2024 Subjective : Review of Systems Constitutional: Negative for activity change, chills, fatigue and fever. HENT: Negative. Eyes: Positive for discharge, redness and visual disturbance. Negative for photophobia, pain and itching. Respiratory: Negative. Cardiovascular: Negative. Gastrointestinal: Negative for abdominal pain, constipation, diarrhea and nausea. Genitourinary: Negative for difficulty urinating. Musculoskeletal: Positive for arthralgias, back pain, joint swelling and myalgias. Right shoulder- gets injections was last 1.5 ago. Neurological: Negative for dizziness and light-headedness. Psychiatric/Behavioral: Positive for decreased concentration and dysphoric mood. Negative for agitation and sleep disturbance. The patient is not nervous/anxious. Thinks it is more situational with sister Physical Exam Constitutional: General: She is not in acute distress. Appearance: She is not ill-appearing. HENT: Head: Normocephalic. Right Ear: Tympanic membrane normal. Left Ear: Tympanic membrane normal. Nose: No congestion or rhinorrhea. Mouth/Throat: Mouth: Mucous membranes are moist. Pharynx: Oropharynx is clear. Comments: A dentulous Eyes: Conjunctiva/sclera: Right eye: Right conjunctiva is not injected. Chemosis and exudate present. No hemorrhage. Comments: Left eyelid sewn shut Cardiovascular: [...] and oriented to person, place, and time. Health Risk Assessment: General: General In general, how would you say your health is?: (!) Fair In the past 7 days, have you experienced any of the following: New or Increased Pain, New or Increased Fatigue, Loneliness, Social Isolation, Stress or Anger?: (!) Yes Select all that apply: (!) New or Increased Pain Do you get the social and emotional suppport you need?: (!) No Interventions: Poor self-assessment of health status: Patient reports being frustrated with her living situation, currently lives with her sister who does not seem to be helping with keeping the house clean and Pain Issues: Pain management referral ordered Health Habits/Nutrition: Health Habits / Nutrition On average, how many days per week do you engage in moderate to strenous exercise (like a brisk walk)?: (!) (P) 0 days On average, how man minutes do you engage in exercise at this level?: (!) (P) 0 min Have you lost any weight without trying in the past 3 months? : (P) No Have you seen the dentist within the past year?: (!) (P) No Interventions: Dental exam overdue: Patient encouraged to make appointment with his / her dentist Hearing/ Vision: Hearing / Vision Do you or your family notice any trouble with your hearing that hasn't been managed with hearing aids?: (P) No Do you have difficulty driving, watching TV, or doing any of your daily activities because of your eyesight?: (P) No Have you had an eye exam within the past year?: (P) Yes No results found. Safety: Safety Do you have a working smoke detector?: (P) Yes Do you have any tripping hazards - loose or unsecured carpets or rugs?: (P) No Do you have any tripping hazards - clutter in doorways, halls, or stairs?: (P) No Do you have either shower bars, grab bars, non-slip mats or non-slip surfaces in your shower or bathtub? : (P) Yes Do all your stairways have a railing or banister? : (P) Yes Do you fasten your seatbelt when you are in a car?: (P) Yes ADL: ADL In the past 7 days, did you need help from others to perform any of the following everyday activities: Eating, dressing, grooming,bathing, toileting, or walking / balance? : (P) No In the past 7 days, did you need help from others to take care of any of the following: laundry, housekeeping, banking / finances,shopping, telephone use, food preparation, transportation, or taking medications? : (P) No Living Will: Living Will Do you have a living will?: (P) No Interventions: Advance Care Planning addressed with patient today MPOA - will be brotherGlo Cognitive: Cognitive Screening: Mini-Cog Clock Drawing Test (CDT): 2 Words Recalled: 3 Total Score: 5 Total Score Interpretation: Normal Mini-Cog Interventions: Fall Risk: Fall Risk One or more falls in the last year:: Yes Advised to use a cane or walker to get around safely:: Yes Feels unsteady when walking:: Yes Steadies self on furniture while walking at home:: Yes Worried about falling:: Yes Interventions: Home safety tips provided Clarified no fall-patient reports that when she was getting into the car she fell hard back into the seat but it was not a fall Depression Screening: Interventions: Tobacco Use: Social History Tobacco Use Smoking Status Every Day Packs/day: 1.00 Years: 35.00 Additional pack years: 0.00 Total pack years: 35.00 Types: Cigarettes Smokeless Tobacco Never Encourage smoking cessation. Discussed risks and benefits of lung cancer screening. Patient wishes to move forward with screening. Alcohol Use: Audit Alcohol Screening Q1: How often do you have a drink containing alcohol?: (P) Monthly or less Q2: How many drinks containing alcohol do you have on a typical day when you are drinking?: (P) 1 or 2 Q3: How often do you have six or more drinks on one occasion?: (P) Never Audit-C Score: (P) 1 Skip to questions 9-10?: (P) 1 Objective : BP 124/79 Pulse 102 Temp 37.2 C (98.9 F) (Infrared) Resp 24 Ht 4' 6 (1.372 m) Wt 99 lb 12.8 oz (45.3 kg) SpO2 97% BMI 24.06 kg/m No results found. documented in this encounter [facility] 03-04-2023 Instructions KATHERINE Escalante CNP - 03/04/2023 9:00 AM EST Personalized Preventative Plan for Paris Moncada - 03/04/2023 Medicare offers a range of preventative health benefits. Some of the tests and screenings are paid in full while others may be subject to a deductible, co-insurance, and / or copay. Some of these benefits include a comprehensive review of your medical history including lifestyle, illnesses that may run in your family, and various assessments and screenings as appropriate. After reviewing your medical record and screening and assessments performed today, your provider may have ordered immunizations, labs, imaging, and / or referrals for you. A list of these orders (if applicable) as well as your Preventative Care list are included within your After Visit Summary for your review. Other Preventative Recommendations: A preventive eye exam by an client engagement specialist is recommended every 1-2 years to screen for glaucoma, cataracts, macular degeneration, and other eye disorders. A preventive dental visit is recommended every 6 months. Try to get at least 150 minutes of exercise per week or 10,000 steps per day on a pedometer. You need 1200-1500mg of calcium and 6142-2985 international units of vitamin D per day. It is possible to meet your calcium requirement with diet alone, but a vitamin D supplement is usually necessary to meet this goal. When exposed to the sun, use a sunscreen that protects against both UVA and UVB radiation with an SPF of 30 or greater. Reapply every 2-3 hours or after sweating, drying off with a towel, or swimming. Always wear a seat belt when traveling in a car. Always wear a helmet when riding a bicycle or a motorcycle documented in this encounter [facility] 03-04-2023 Instructions KATHERINE Escalante CNP - 03/04/2023 9:00 AM EST Personalized Preventative Plan for Paris Moncada - 03/04/2023 Medicare offers a range of preventative health benefits. Some of the tests and screenings are paid in full while others may be subject to a deductible, co-insurance, and / or copay. Some of these benefits include a comprehensive review of your medical history including lifestyle, illnesses that may run in your family, and various assessments and screenings as appropriate. After reviewing your medical record and screening and assessments performed today, your provider may have ordered immunizations, labs, imaging, and / or referrals for you. A list of these orders (if applicable) as well as your Preventative Care list are included within your After Visit Summary for your review. Other Preventative Recommendations: A preventive eye exam by an client engagement specialist is recommended every 1-2 years to screen for glaucoma, cataracts, macular degeneration, and other eye disorders. A preventive dental visit is recommended every 6 months. Try to get at least 150 minutes of exercise per week or 10,000 steps per day on a pedometer. You need 1200-1500mg of calcium and 3317-6870 international units of vitamin D per day. It is possible to meet your calcium requirement with diet alone, but a vitamin D supplement is usually necessary to meet this goal. When exposed to the sun, use a sunscreen that protects against both UVA and UVB radiation with an SPF of 30 or greater. Reapply every 2-3 hours or after sweating, drying off with a towel, or swimming. Always wear a seat belt when traveling in a car. Always wear a helmet when riding a bicycle or a motorcycle documented in this encounter [facility] 03-04-2023 Instructions KATHERINE Escalante CNP - 03/04/2023 9:00 AM EST Personalized Preventative Plan for Paris Moncaad - 03/04/2023 Medicare offers a range of preventative health benefits. Some of the tests and screenings are paid in full while others may be subject to a deductible, co-insurance, and / or copay. Some of these benefits include a comprehensive review of your medical history including lifestyle, illnesses that may run in your family, and various assessments and screenings as appropriate. After reviewing your medical record and screening and assessments performed today, your provider may have ordered immunizations, labs, imaging, and / or referrals for you. A list of these orders (if applicable) as well as your Preventative Care list are included within your After Visit Summary for your review. Other Preventative Recommendations: A preventive eye exam by an client engagement specialist is recommended every 1-2 years to screen for glaucoma, cataracts, macular degeneration, and other eye disorders. A preventive dental visit is recommended every 6 months. Try to get at least 150 minutes of exercise per week or 10,000 steps per day on a pedometer. You need 1200-1500mg of calcium and 9557-9220 international units of vitamin D per day. It is possible to meet your calcium requirement with diet alone, but a vitamin D supplement is usually necessary to meet this goal. When exposed to the sun, use a sunscreen that protects against both UVA and UVB radiation with an SPF of 30 or greater. Reapply every 2-3 hours or after sweating, drying off with a towel, or swimming. Always wear a seat belt when traveling in a car. Always wear a helmet when riding a bicycle or a motorcycle documented in this encounter [facility] 03-04-2023 Note Addended by: BRITTA WILSON on: 02/28/2024 01:14 PM Modules accepted: Orders [facility] 03-02-2023 Telephone encounter Note (2nd attempt) Called today to schedule screening colonoscopy (surveillance program) Left message to call colorectal office at [phone] [facility] Work Phone: 03-02-2023 Miscellaneous Notes (2nd attempt) Called today to schedule screening colonoscopy (surveillance program) Left message to call colorectal office at [phone] Screening Colonoscopy (surveillance program) Called pt today to schedule colonoscopy Left message to call colorectal office at [phone] documented in this encounter [facility] 02-18-2023 Telephone encounter Note Will discuss with patient when she comes in to her next scheduled appointment. [facility] 02-18-2023 Miscellaneous Notes Will discuss with patient when she comes in to her next scheduled appointment. Called patient to go over recent results of drug screen. She is not available. Left message that we will call her on Wednesday and go over the results of her testing. ---- Urine drug screen results obtained on February 03, 2023. +OXY-expected +TCA- expected +THC- unexpected- patient did report using CBD vape nightly cannabidiol + oxycodone combo may incr. risk of profound IMPREGNATOR HELPER and resp. depression, psychomotor impairment, risk of if respiratory depression becomes significant. documented in this encounter [facility] 02-05-2023 Telephone encounter Note Called patient to go over recent results of drug screen. She is not available. Left message that we will call her on Wednesday and go over the results of her testing. ---- Urine drug screen results obtained on February 03, 2023. +OXY-expected +TCA- expected +THC- unexpected- patient did report using CBD vape nightly cannabidiol + oxycodone combo may incr. risk of profound IMPREGNATOR HELPER and resp. depression, psychomotor impairment, risk of if respiratory depression becomes significant. [facility] [employer] 02-04-2023 Telephone encounter Note Screening Colonoscopy (surveillance program) Called pt today to schedule colonoscopy Left message to call colorectal office at [phone] [facility] [employer] 02-04-2023 Miscellaneous Notes Screening Colonoscopy (surveillance program) Called pt today to schedule colonoscopy Left message to call colorectal office at [phone] documented in this encounter [facility] [employer] 02-03-2023 Evaluation + Plan note Associated Problem(s): Insomnia Controlled. Continue Lunesta 3 mg nightly [facility] [employer] 02-03-2023 Evaluation + Plan note Associated Problem(s): Hypertension Initial and repeat blood pressure elevated. Increase amlodipine back up to 5 mg daily and continue to monitor blood pressure at home. Please notify office if you have any hypotensive episodes. Or if blood pressure remains above 140/90. [facility] [employer] 02-03-2023 Miscellaneous Notes Associated Problem(s): Insomnia Controlled. [...] manage chronic pain. JESSE MA in place Associated Problem(s): Chronic pain [...] HUDSON in place documented in this encounter [facility] 02-03-2023 Evaluation + Plan note Associated Problem(s): Anxiety Stable. Continue amitriptyline 50 mg nightly, Wellbutrin 150 mg daily [facility] 02-03-2023 Evaluation + Plan note Associated Problem(s): [...] manage chronic pain. JESSE HUDSON in place [facility] 02-03-2023 Evaluation + Plan note Associated Problem(s): [...] manage chronic pain. JESSE HUDSON in place [facility] 02-03-2023 History of Present illness Narrative Patient was identified by name and Date of . HM Hep b-declined Awv-will scheduled HIV-declined Colon-pend MMR-declined Covid-declined Tdap-declined Pap-ref to obgyn Zoster-declined Lung-pended Dexa-pended Images from the original note were not included. 02/03/2023 Paris Moncada (: 1970) is a 52 y.o. [...] Starting Wed02/05/2023, Until 03/07/2023 at 2359, Normal 4. Chronic [...] above 140/90. 6. Colon cancer screening [place] [facility] Follow up in about 1 month (around 03/06/2023). SUBJECTIVE/OBJECTIVE: BRADFORD Moncada (: 1970) is a 52 y.o. female , Established patient, here for the evaluation of the following chief complaint(s): Follow-up Patient presents for follow-up for the pain management. 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 we are bridging her until she is established with a new pain management provider. A referral was made to [facility] for rehabilitation pain management. And she is scheduled in April to establish. Reports that her shoulder is doing ok with the steroid injection of the right shoulder last month. States that the steroid injection would not help her left shoulder that is affected by the scleroderma. Last dose of Percocet this morning. Denies any street drug use however does use, Cbd- vapes- getting from [employer]. Does every night. Prior to Admission medications Medication Sig Start Date End Date Taking? Authorizing Provider amitriptyline (Elavil) 50 MG tablet Take 1 tablet (50 mg) by mouth Nightly. 01/04/23 Yes Juancho Goodman MD atorvastatin (Lipitor) 20 MG tablet Take [...] immediately before bedtime 01/18/23 02/17/23 Yes Juancho Goodman MD oxyCODONE-acetaminophen (Percocet) 5-325 MG tablet Take 1 tablet by mouth every 8 hours as needed for severe pain (7-10). 01/06/23 02/05/23 Yes Britta Trinidad APRN - [facility] tiZANidine (Zanaflex) 4 MG tablet take 2 tablets by mouth at bedtime if needed 01/18/23 Yes Juancho Goodman MD amLODIPine (Norvasc) 5 MG tablet 2.5 [...] 02/03/2023 5:28 PM documented in this encounter [facility] 01-15-2023 Telephone encounter Note Spoke to patient and scheduled [facility] 01-15-2023 Miscellaneous Notes Spoke to patient and scheduled Name of Caller: Paris Contact Reason for Appointment: New Patient appointment. [...] Name: Pain Management documented in this encounter [facility] 01-14-2023 Telephone encounter Note Name of Caller: Paris Contact Reason for Appointment: New Patient appointment. [...] on her voicemail. Office Name: Pain Management [facility] 01-06-2023 History of Present illness Narrative Received call previous prescription was sent to [facility] and they do not have supply available today. New prescription sent to [facility] in [place]. OARRS reviewed and consistent with treatment plan. documented in this encounter [facility] 01-06-2023 Evaluation + Plan note Associated Problem(s): Irritation of left eye Mild erythema of the inner canthus. No signs or symptoms of infection. No induration. Believe this is just mild irritation from probable friction, recommend warm or cool compress. Follow-up for any worsening symptoms. [facility] 01-06-2023 Miscellaneous Notes Associated Problem(s): Irritation of [...] HUDSON in place documented in this encounter [facility] 01-06-2023 Evaluation + Plan note Associated Problem(s): Hypertension Initial blood pressure reading elevated. Patient currently has not taken her blood pressure medicine. Reports that she had had hypotensive problem recently and stopped her medication. Patient advised to decrease amlodipine to half tablet daily. Check blood pressure daily x 2 weeks and send readings to office for review. [facility] 01-06-2023 Evaluation + Plan note Associated Problem(s): [...] manage chronic pain. JESSE HUDSON in place [facility] 01-06-2023 Telephone encounter Note S: Patient spoke [...] is requesting the medication be sent to [facility] in [place], [place] instead. . The pharmacy closes today at 8 pm. R: Nurse reached out to the on-call provider, Khang PUENTE, a new RX will be sent to [facility]. Nurse notified patient of provider's directives. No further action required. Nurse called [facility] at # , spoke with pharmacist Horacio Sanchez RX from today was discontinued as they will not have the med on hand, new RX was sent to [facility] by the provider. Reason for Disposition [1] Caller has URGENT medicine question about med that PCP or specialist prescribed AND [2] triager unable to answer question Protocols used: Medication Question [id number] [facility] 01-06-2023 Miscellaneous Notes S: Patient spoke with [facility] nurse regarding medication problem B: Onset of symptoms/concern today A: Patient was ordered oxycodone-acetaminophen (Percocet) 5-325 mg tablets, #90, Refills 0. (Sig: Take 1 tablet by mouth every 8 hours as needed for severe pain (7-10). Medication was originally [facility] to [facility] earlier today, they will not have the medication until Wednesday. Patient is requesting the medication be sent to [facility] in [place], [place] instead. . The pharmacy closes today at 8 pm. R: Nurse reached out to the on-call provider, Khang PUENTE, a new RX will be sent to [facility]. Nurse notified patient of provider's directives. No further action required. Nurse called [facility] at # , spoke with Horacio Arita RX from today was discontinued as they will not have the med on hand, new RX was sent to [facility] by the provider. Reason for Disposition [1] Caller has URGENT medicine question about med that PCP or specialist prescribed AND [2] triager unable to answer question Protocols used: Medication Question [id number] documented in this encounter [facility] 01-06-2023 Telephone encounter Note Reviewed chart. Refill appropriate. Rx sent. Oarrs reviewed. Consistent with treatment plan [facility] 01-06-2023 Miscellaneous Notes Reviewed chart. Refill appropriate. [...] Report Adh: Taking: Long-term: [facility]acy: [id number] Med Dose History Change Patient Sig: Take [...] out. Please advise. documented in this encounter [facility] 01-06-2023 History of Present illness Narrative Patient was identified by name and Date of . Images from the original note were not included. 01/06/2023 Paris Moncada (: 1970) is a 52 y.o. [...] in about 1 month (around 02/05/2023). SUBJECTIVE/OBJECTIVE: HPI - Paris Moncada (: 1970) is a 52 y.o. female , Established patient, here for the evaluation of the following chief complaint(s): Follow-up Patient presents for follow-up for the pain management. We are bridging her until she is established with a new pain management provider. A referral was made to [facility] for rehabilitation pain management. Of note patient only recently saw the [employer] message to her yesterday to reach out [...] mg) by mouth Nightly. 01/04/23 Yes Juancho Goodman MD amLODIPine (Norvasc) 5 MG tablet 5 [...] Take immediately before bedtime 12/21/22 01/20/23 Yes KATHERINE Escalante CNP oxyCODONE-acetaminophen (Percocet) 5-325 MG tablet Take 1 tablet by mouth every 8 hours as needed for severe pain (7-10). 12/07/22 01/06/23 Yes KATHERINE Escalante CNP tiZANidine (Zanaflex) 4 MG tablet take [...] 01/06/2023 4:52 PM documented in this encounter [facility] 01-06-2023 Instructions KATHERINE Escalante CNP - 01/06/2023 3:20 PM EST Schedule with pain management. Please check blood pressure daily and send readings into office via mychart or call in results. documented in this encounter [facility] 01-05-2023 Telephone encounter Note [facility] 12/07/22 [facility] 01-05-2023 Telephone encounter Note Images from the [...] Report Adh: Taking: Long-term: [facility]acy: [id number] Dose History Change Patient Sig: Take [...] so now she is out. Please advise. [employer] 01-04-2023 Telephone encounter Note Medication name: amitriptyline [...] other doctor or facility: N/A Ordering provider: kasandra Date of last office visit: 12.07.22 Date of next office visit: 01.06.23 Date of last refill: (see medication tab): 10.20.22 Updated/Validated preferred pharmacy: Yes Patient instructed to contact the pharmacy prior to picking up the medication: Yes [employer] 01-04-2023 Miscellaneous Notes Medication name: amitriptyline (Elavil) Medication dosage: 50 mg (Miligrams Monthly quantity needed: 30 How many day supply requestin days Medication route: oral (PO) Medication administration time(s): daily If taking medication PRN, reason for taking medication: N/A If this is a controlled substance do you receive this or any other controlled medication from any other doctor or facility: N/A Ordering provider: kasandra Date of last office visit: 12.07.22 Date of next office visit: 01.06.23 Date of last refill: (see medication tab): 10.20.22 Updated/Validated preferred pharmacy: Yes Patient instructed to contact the pharmacy prior to picking up the medication: Yes documented in this encounter [facility] 12-21-2022 Telephone encounter Note [facility] 11/24/22 [facility] 12-21-2022 Miscellaneous Notes [facility] 11/24/22 Medication name: [...] the medication: Yes documented in this encounter [facility] 12-21-2022 Telephone encounter Note Medication name: eszopiclone [...] prior to picking up the medication: Yes [facility] 12-01-2022 Telephone encounter Note Sabrina Tineo MD [facility] [address] [place] [address] This looks like who she saw on 11/18/2022 [facility] 12-01-2022 Miscellaneous Notes Sabrina Tineo MD [facility] [address] [place] [address] This looks like who she saw on 11/18/2022 Called patient no answer LVM to call office back. My chart message sent. If patient calls back please give patient message from Vi. Please call patient and let her know that I recommend that she go back to the last painting manager that she saw - Dr. Tineo and work with them to come up with a pain management plan, otherwise she may have difficulty being seen by any pain provider. documented in this encounter [facility] 11-30-2022 Telephone encounter Note Called patient no answer LVM to call office back. My chart message sent. If patient calls back please give patient message from Vi. [facility] 11-26-2022 Telephone encounter Note Please call patient and let her know that I recommend that she go back to the last painting manager that she saw - Dr. Tineo and work with them to come up with a pain management plan, otherwise she may have difficulty being seen by any pain provider. [facility] 11-24-2022 Evaluation + Plan note Associated Problem(s): Linear scleroderma Obtain records. Consider reaching out to [facility] to see what specialists are available in this area to assist with further management [facility] 11-24-2022 Miscellaneous Notes Associated Problem(s): Linear scleroderma Obtain records. Consider reaching out to [facility] to see what specialists are available in this area to assist with further management Associated Problem(s): Insomnia Discussed risks and benefits of continuing Lunesta. CS TRISTAN obtained. OARRS reviewed and consistent with treatment [...] her chronic pain. documented in this encounter [facility] 11-24-2022 Evaluation + Plan note Associated Problem(s): Insomnia Discussed risks and benefits of continuing Lunesta. CS MA obtained. OARRS reviewed and consistent with treatment plan. [facility] 11-24-2022 Evaluation + Plan note Associated Problem(s): [...] pain management provider for her chronic pain. [facility] 11-24-2022 History of Present illness Narrative Patient was identified by name and Date of . KATHRIN sent to [facility] in [place] PCP and to Abraham at [place] [facility] Images from the original note were not included. 11/24/2022 Paris Moncada (: 1970) is a 52 y.o. [...] Plan: Obtain records. Consider reaching out to [facility] to see what specialists are available [...] and further review. Consider reaching out to [facility] for resources for adult care for patients with linear scleroderma. Follow up in about 2 weeks (around 12/08/2022) for Recheck. SUBJECTIVE/OBJECTIVE: BRADFORD - Paris Moncada presents as new patient, previous primary care provider [facility], last seen last week- was discharged for argumentative behavior, by previous provider. Specialists/other providers? Yes, describe: pain management- [facility], orthopedic - [facility] [place]. Chief complaint(s): New Patient and Establish Care (/) Presents today to establish care. Patient was living in [place] from [id number], grew up in [place]. Moved back to [place] to be near family after her boyfriend of greater than 15 years and she was living alone in [place] and her family wanted her to be closer. Has complex medical history. 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 Was on long-term prednisone [...] pain management for a long time in [place] and has been having difficulty continuing her previous pain regimen with providers in [place]. Reports her pain was not being well managed and she was treating herself with CBD and the urine tested positive for THC? And she states that she was discharged from pain management. Has been having increased pain in her right hip and was seeing AN orthopedic, Dr. Casey in [place]. Reports he was doing injections for bursitis [...] level: Not on file Occupational History Comment: [employer] Tobacco Use Smoking status: Every Day Packs/day: 1.00 Years: 35.00 Additional pack years: 0.00 Total pack years: 35.00 Types: Cigarettes Smokeless tobacco: Never Vaping Use Vaping Use: Never used Substance and Sexual Activity Alcohol use: Not Currently Drug use: Not Currently Comment: CBD with THC Sexual activity: Defer Other Topics Concern Not on file Social History Narrative Lives Came back to [place] last July 2021, from [place] since 2010.boyfriend about 7 years ago, (were together 15 yrs). Adopted parents sold where she was living and so she moved back here. Adopted parents live up here and biological family. Linear scleroderma since age 6. 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 04/30/22 Yes Historical Provider, MD galindo fenofibrate (Trilipix) [address] capsule Take [...] Historical Provider, cholecalciferol (Vitamin D-3) 1.25 MG (30279 UT) capsule Take by mouth 1 (one) [...] 11/24/2022 5:31 PM documented in this encounter [facility] 11-24-2022 Instructions KATHERINE Escalante CNP - 11/24/2022 9:00 AM EDT I will provide a 7 day supply of pain medication at previous dose. Recommend using lowest effective dosing. documented in this encounter [facility] 11-18-2022 Note HNO ID: [id number] Author: Sabrina Tineo MD Service: ? Author Type: Physician Type: Progress Notes Filed: 11/18/2022 4:01 PM Note Text: Sabrina Tineo MD Pain Management Pain Management [facility] [address] [id number] Dept: [phone] New Patient Chronic Pain Consult Note Date: 11/18/2022 3:06 PM Referring physician: self This consult was requested by Self for my medical opinion. My final recommendations will be communicated to the referring physician by way of the shared medical record for internal providers or by letter via the WishGenie [employer] for external providers. Nursing Assessment: AMB ROOMING INTAKE FLOWSHEET DATA Risk Screening Do you have concerns about personal safety or safety in the home?: no Pain Pain Level: 10/25 Pain Location: shoulder,arm hip ,leg Description:stabbing, sharp, [...] No Comment: Marijuana laced brownies at a democrat by accident Allergies: Allergies: Duloxetine Other: See [...] headaches CARDIOVASCULAR: Any history of cardiac arrhythmias, AK, prior CVA, or heart failure? No GASTROINTESTINAL: Any history of peptic ulcer disease or GI bleeding, blood in stools NO GENITOURINARY: Any history of incontinence, urinary retention or nephrolithiasis? No MUSCULOSKELETAL: Any joint pain or swelling, back pain or muscle pain? Yes: all of the above NEUROLOGIC: Any recent focal numbness or weakness? Yes: right leg numb and right foot HEMATOLOGIC/LYMPHATIC/IMMUNOLOGIC: Any problems with prolonged bleeding, bruising easily? [...] the pain. She states she moved to [place] from [place]. She was seeing a PM near [place] since 09/2021. She received an injection with Ortho with benefit. She states she has been on percocet 7.5 mg for (more content not included)... [facility] 11-18-2022 Instructions Sabrina Tineo MD - 11/18/2022 3:41 PM EDT Complete x-rays Establish care with Dr. Aldana [phone] documented in this encounter [facility] 11-18-2022 History of Present illness Narrative Images from the original note were not included. Sabrina Tineo MD Pain Management Pain Management [facility] [address] [facility] [address] Dept: [phone] New Patient Chronic Pain Consult Note Date: 11/18/2022 3:06 PM Referring physician: self This consult was requested by Self for my medical opinion. My final recommendations will be communicated to the referring physician by way of the shared medical record for internal providers or by letter via the Wish[employer]ie Postal Service for external providers. Nursing Assessment: [...] No Comment: Marijuana laced brownies at a democrat by accident Allergies: Allergies: Duloxetine Other: See [...] headaches CARDIOVASCULAR: Any history of cardiac arrhythmias, AK, prior CVA, or heart failure? No GASTROINTESTINAL: Any history of peptic ulcer disease or GI bleeding, blood in stools NO GENITOURINARY: Any history of incontinence, urinary retention or nephrolithiasis? No MUSCULOSKELETAL: Any joint pain or swelling, back pain or muscle pain? Yes: all of the above NEUROLOGIC: Any recent focal numbness or weakness? Yes: right leg numb and right foot HEMATOLOGIC/LYMPHATIC/IMMUNOLOGIC: Any problems with prolonged bleeding, bruising easily? [...] the pain. She states she moved to [place] from [place]. She was seeing a PM near [place] since 09/2021. She received an injection with Ortho with benefit. She states she has been on percocet 7.5 mg for 25 years prior to coming to [place]. Her local PM provider has tried xtempza and percocet 5-325 mg. She is a current smoking cigarettes. She is currently on tizanidine, and elevil. Patient states she was recently discharged from Dr. Rosario's office due to asking for an increase in the percocet. UDS 10/07/2021 positive oxycodone and cannabinoids. Patient admits to using a topical CBD cream. She states the she has injection in her spine many years ago that were beneficial. Reviewed notes from [facility] and Outside [place] PM note. Per [place] PM notes, patient was discharged from [facility] 2020 due to overtaking her medication. Patient today is asking for refills on percocet (7.5 mg) and lunesta. Patient states her previous PM physical and PCP are refusing to fill he medications and have directed her to the ED. 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 The [facility] EMR was reviewed during the visit including: [...] which included preparing to see the patient, nkqk-ck-alrz patient care, completing clinical documentation, obtaining and/or reviewing separately obtained history, performing a medically appropriate examination, counseling and educating the patient/family/caregiver, and ordering medications, tests, or procedures. documented in this encounter [facility] 10-21-2022 Evaluation + Plan note Future Scheduled TestsThyroid Stimulating Hormone 10/21/22Complete Blood Count 10/21/22Lipid Profile 10/21/22Vitamin D Level 10/21/22Complete Metabolic Panel 10/21/22 [facility] 05-14-2022 Hospital Discharge instructions Patient Education 05/13/2022 [...] Document Reviewed: 02/02/2014 ExitCare Patient Information 2015 1stdibs. This information is not intended to replace advice given to you by your health care provider. Make sure you discuss any questions you have with your health care provider. Follow Up Care 05/13/2022 21:47:45 With:SOLIS SHELL Address: [address] [place] [phone]- [phone] When:2-4 days [facility] 05-13-2022 Emergency department Discharge summary Discharge Instructions Thank you for allowing [facility] to assist you with your healthcare needs. The following is important discharge information regarding your hospital visit. Diagnosis from Today's Visit Arm abrasion, complicated What to Do Next Instructions from Your Care Team No qualifying data available. Post Acute Orders No qualifying data available. You Need to Schedule the Following Appointments Follow Up with SOLIS SHELL When Within 2-4 days Where: [address] [place] [address]- [phone] Allergies Cymbalta (Racing Heart) traMADol (Unknown) traZODone [...] 02/01/2006 Document Revised: 01/18/2013 Document Reviewed: 02/02/2014 [facility] Patient Information 2015 1stdibs. This information is not intended to replace advice given to you by your health care provider. Make sure you discuss any questions you have with your health care provider. Additional Information VACCINATE! IT SAVES LIVES! Members of the community who have not yet received the COVID-19 vaccine and would like to receive it can visit one of [facility] vaccine clinics. There are many vaccine clinic locations within the [facility]. For locations and available times, please visit www.gettheot.coronavirus.[place].go v/. It is important to note that some COVID mobile vaccine clinics are held outdoors and may be canceled in rainy or stormy conditions. To learn more about pediatric vaccinations (ages 5-11), we invite you to visit the [employer] webpage. https://www.Mobilizs.org/pag es/2484-Cjjdl-Kygrfmltxuo-Frequent sz-Dakki-Wqzebohrz.html To learn more about the COVID-19 vaccine, we invite you to visit the CDC website for a list of frequently asked questions. https://www.cdc.gov/coronavirus/20 19-ncov/vaccines/faq.html [facility] [employer] Patient Portal Access Instructions: Stay connected with your healthcare team and access your personal medical information anytime with the [employer] Patient Portal. If you would like a full copy of your medical records please contact the [facility] Medical Records Department Wednesday through Wednesday between 8a.m. and 4:30p.m. Please follow the directions below to access the portal: 1.Access the email account you provided upon registration to the [facility].2.Look for an invitation email from [facility].3.Open the email and access the invitation link: Accept Invitation to [employer]4.Fill in the required mariano to create your account. Sign into [email or web address] with your username and password that you [...] you will allow to register on the [employer] Patient Portal for access to your information. You can also access the [employer] Patient Portal on the ETARGET. Simply click on Health Records under Health Data and then click on the Correlec logo. HOW TO SAFELY DISPOSE OF PRESCRIPTION [...] Call your local pharmacy or go to http://Virtual Solutions.[employer]/6C6Ji6l to find one close to you.3.Make use of household items: Use cat litter or old coffee grounds to dispose medications if other options are not available. Mix your drugs with these household products, seal them in an airtight container and throw it into the garbage. Call [facility]: [phone] to be sure your drugs can be [...] a CHART COPY Signatures Patient Education Materials AA Jackie DI(CUSTOM) Medication Leaflets My discharge plan and instructions have been reviewed and explained to me and I,PARIS MONCADA M understand my current condition and have read and understand these discharge instructions. I have received a written copy of the plan/instructions. If I have questions, I am aware that I should contact my doctor. 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 Check your abscess every day for signs that the infection is getting worse. Check for: ?More redness, swelling, or pain. ?More fluid or blood. ?Warmth. ?More pus or a bad smell. General instructions To avoid spreading the infection: ?Do not share personal care items, towels, or hot tubs with others. ?Avoid making islv-ee-bcgc contact with other people. Keep all follow-up [...] 07/20/2008 Document Revised: 05/25/2019 Document Reviewed: 03/17/2018 Elsevier Patient Education 2020 ETF.[employer] Inc. Follow Up Care 05/02/2022 02:51:26 With:[facility] has been arranged for you. They should call to schedule today for first appointment, if you do not hear from them or have any questions or concerns please call [phone] Address:Unknown When:1-2 days With:SOLIS SHELL Address: [address] [facility] [place] [address]- Business (1) When:1-2 days Comments:Please call the office to schedule a follow up appointment With:PATRICK RUTLEDGE Address: [facility] [address] [place] [address]- Business (1) When:1-2 days Comments:please follow up within 2 weeks [facility] 05-07-2022 Nurse Progress note This nurse has reviewed and agrees with Lillie Fernández student's charting and all medications were verified prior to administration. Digitally Signed by Beth Leach RN on 05/07/2022 03:28 PM [facility] 05-07-2022 Note Discharge Instructions Thank you for allowing [facility] to assist you with your healthcare needs. The following is important discharge information regarding your hospital visit. Your Care Team SOLIS SHELL Your Diagnosis Insomnia What to do next Instructions From Your Doctor Continue antibiotics through PICC line- plan for long term care phlebotomist antibiotics until May 22, 2022 with weekly labs including CMP and CBC and ESR. Please follow up with Infectious disease in 2 weeks. Follow up with your PCP and the orthopedic clinic that you are established with Return to the ED/present to [facility] for new or worsening symptoms. Scheduled Follow-Up Appointments Appointment Type When With Where Contact InformationPM OV 05/25/2022 10:45 AM SHRAVAN ESCALERA MD [facility] OV Controlled Medication 06/12/2022 02:00 PM SOLIS SURESH [facility] Follow Up Appointments Follow Up with [facility] has been arranged for you. They should call to schedule today for first appointment, if you do not hear from them or have any questions or concerns please call [phone] When Within 1-2 days Follow Up with SOLIS SHELL When Within 1-2 days Why: Please call the office to schedule a follow up appointment Where: [address] [facility] [place] [address]- Business (1) Follow Up with PATRICK RUTLEDGE When Within 1-2 days Why: please follow up within 2 weeks Where: [facility] [place] [address] [place] [address] [facility] (1) The Following Activity and Diet Have [...] a day Duration: 30 Days Pickup at [facility] 1811 New ertapenem (Invanz 1 g (Disch Rx)) 1 gram(s) IV Piggyback Once a day New lactobacillus acidophilus and bulgaricus (lactobacillus acidophilus and bulgaricus oral tablet) 1 tab(s) by mouth Three (3) times a day Duration: 10 Days Pickup at [facility] 1811 Unchanged acetaminophen-oxyCODONE (acetaminophen-oxycodone 325 mg-7.5 mg [...] by mouth Daily at bedtime Pharmacy Information [facility]: [address] [place], [place] [id number] [phone] What How Much When Comments Stop Taking [...] Follow these instructions at home: Medicines Take tmwk-ulh-kxxjnuf and prescription medicines only as told by [...] cannot use soap and water, use hand kitchen bath designer. Check your abscess every day for signs that the infection is getting worse. Check for: ? More redness, swelling, or pain. ? More fluid or blood. ? Warmth. ? More pus or a bad smell. General instructions To avoid spreading the infection: ? Do not share personal care items, towels, or hot tubs with others. ? Avoid making broo-pu-ezws contact with other people. Keep all follow-up [...] 07/20/2008 Document Revised: 05/25/2019 Document Reviewed: 03/17/2018 Elsevier Patient Education 2020 ETF.com Inc. Additional Information VACCINATE! IT SAVES LIVES! Members of the community who have not yet received the COVID-19 vaccine and would like to receive it can visit one of [facility] vaccine clinics. There are many vaccine clinic locations within the [facility]. For locations and available times, please visit https://gettheshot.coronavirus.[place].gov/. It is important to note that some COVID mobile vaccine clinics are held outdoors and may be canceled in rainy or stormy conditions. To learn more about pediatric vaccinations (ages 5-11), we invite you to visit the [employer] webpage. https://www.Mobilizs.org/pag es/0133-Qfqeh-Lwwiqmfiqzs-Frequent jz-Spklp-Xnsvlgpod.html To learn more about the COVID-19 vaccine, we invite you to visit the CDC website for a list of frequently asked questions. https://www.cdc.gov/coronavirus/20 19-ncov/vaccines/faq.html [employer] Patient Portal Access Instructions: Stay connected with your healthcare team and access your personal medical information anytime with the [employer] Patient Portal.If you would like a full copy of your medical records, please contact the [facility] Medical Records Department, Wednesday through Wednesday between 8a.m. and 4:30p.m. Please follow the directions below to access the portal: 1.Access the email account you provided upon registration to the [facility].2.Look for an invitation email from [facility].3.Open the email and access the invitation link: Accept Invitation to [facility]4.Fill in the required mariano to create your account. Sign into [email or web address] with your username and password that you [...] you will allow to register on the [employer] Patient Portal for access to your information. You can also access the [employer] Patient Portal on the SmartAngels.fr arash. Simply click on Health Records under Pigmata Media Data and then click on the Correlec logo. HOW TO SAFELY DISPOSE OF PRESCRIPTION [...] Call your local pharmacy or go to http://Virtual Solutions.[employer]/9S4Qg5j to find one close to you.3.Make use of household items: Use cat litter or old coffee grounds to dispose medications if other options are not available. Mix your drugs with these household products, seal them in an airtight container and throw it into the garbage. Call [facility]: [phone] to be sure your drugs can be [...] COPY. Signatures Patient Education Materials Skin Abscess, Jstq-cp-Bfqp Medication Leaflets My discharge plan and instructions have been reviewed and explained to me and I,PARIS MONCADA M understand my current condition and have read and understand these discharge instructions. I have received a written copy of the plan/instructions. If I have questions, I am aware that I should contact my doctor. Patient/Greenskeeper Supervisor Signature: Date/Time: Relationship to Patient: ___ Witness Name/Signature: Date/Time: [facility] 05-07-2022 Discharge summary Date of Service [...] anemia, tobacco abuse who initially presented to [facility] on 04/29/2022 with complaints of left arm pain and cellulitis. Patient developed an ulcer on her forearm several days prior. Patient was seen by her PCP and prescribed Keflex with worsening symptoms. On arrival to [facility], patient was started on broad-spectrum antibiotics. An [...] Several hospitals were contacted for transfer including [place] orthopedic, [facility], [facility], [facility], [facility] orthopedics and [facility] who were unable to take the patient. Patient was therefore transferred to [facility] for further evaluation. While at [facility], blood work remained stable, hemoglobin 10.2. BMP [...] Continue antibiotics through PICC line- plan for long term care phlebotomist antibiotics until May 22, 2022 with weekly labs including CMP and CBC and ESR. Please follow up with Infectious disease in 2 weeks. Follow up with your PCP and the orthopedic clinic that you are established with Return to the ED/present to [facility] for new or worsening symptoms. Medications New [...] for 90 Days. Refills: 3. DME (DME MISCellaneous)InxeroER TENS UNIT E 0730 reducing chronic intractable [...] intravenous injection) Follow Up Follow Up with [facility] has been arranged for you. They should call to schedule today for first appointment, if you do not hear from them or have any questions or concerns please call [phone] When Within 1-2 days Follow Up with SOLIS SHELL When Within 1-2 days Why: Please call the office to schedule a follow up appointment Where: [address] [facility] [place] [address]- Business (1) Follow Up with PATRICK RUTLEDGE When Within 1-2 days Why: please follow up within 2 weeks Where: [facility] [address] [place] [address]- Business (1) Follow Up Appointments No qualifying [...] MD on 05/07/2022 02:31 PM [facility] 05-07-2022 Note IR Procedure Record Summary Primary Physician: Finalized Date/Time: 05/07/22 10:03:49 Pt. Name: CORALPARIS./Sex: 1970 Female Med Rec #: [id number] Physician: ALEXIS JAMES MD Financial #: [id number] Pt. Type: I Room/Bed: [facility]/ Admit/Disch: 05/02/22 02:48:29 - Institution: [...] 1 Entry 2 Entry 3 Case Attendee HUMERA CURRY Rad Tech Kelli Fierstos, Megan R Rad PA-C L Tech Role Performed Radiology PA/RA Scrub [...] SN placement Primary Procedure Yes Primary Surgeon HUMERA CURRY PA-C Anesthesia/Sedation Local Type Additional Procedure Times [...] Post Procedure Note - IR Signed By: HUMERA CURRY PA-C 05/06/22 16:07 Allergy Information- IR Entry [...] team. When Applicable Confirmation correct Team Members HUMERA CURRY side and site marked, Present for Time [...] Removal Method N/A Last Modified By: WILLIAM Campbell 05/06/22 15:57:25 Patient Positioning- IR Entry 1 Procedure IR Tunneled PICC Body Position OP Supine Placement SN Feet Uncrossed? Yes Pressure Points Yes Checked Last Modified By: WILLIAM Campbell 05/06/22 15:57:36 Implants- IR Entry 1 Implant/Explant Implant Implant Description [id number] Wasted? Yes Lot Number [id number] [employer] Specialist medComp Size 6F x 25 cm Expiration [...] Radiology - Action Plan Outcomes Met? Yes Spot Billing Clerk WILLIAM Campbell Completing Procedure Plan Last Modified By: WILLIAM Campbell 05/06/22 16:01:24 Case Comments Added angio light pack to picklist used from bag and tag product wrappers. [facility] RT-R(CV) Case Sealer Finalized By: Pairs Sweet Document Signatures Signed By: WILLIAM Campbell 05/06/22 16:18 Paris Sweet 05/07/22 10:03 [facility] 05-06-2022 Note Date of Service 05/06/22 Chief Complaint left arm cellulitis Subjective 51-year-old female with past medical history of scleroderma in the process of following with rheumatology, neuropathy, hyperlipidemia, chronic back pain follows with pain management, osteoporosis, degenerative joint disease, anemia, tobacco abuse who initially presented to [facility] on 04/29/2022 with complaints of left arm pain and cellulitis. Patient developed an ulcer on her forearm several days prior. Patient was seen by her PCP and prescribed Keflex with worsening symptoms. On arrival to [facility], patient was started on broad-spectrum antibiotics. An [...] Several hospitals were contacted for transfer including [place] [facility]opedics, [facility], [facility], [facility], [facility] orthopedics and [facility] who were unable to take the patient. Patient was therefore transferred to [facility] for further evaluation. While at [facility], blood work remained stable, hemoglobin 10.2. BMP [...] ID outpatient and will be seen in [place] if her left arm were to worsen. [...] tablet 48 mg 1 tab(s), Oral, qDayM [facility] communication order dr luis waiting until keyona [...] CRP elevated on admission. MRI completed at [facility] showed signs of deep fascial infectious process [...] she is in process of establishing with lavender farm worker. Chronic neuropathy, continue home medications. HLD, continue [...] RAYMOND on 05/06/2022 09:45 AM [facility] 05-05-2022 Infectious disease Progress note Date [...] tablet 48 mg 1 tab(s), Oral, qDayM [facility] communication order dr luis waiting until keyona [...] RN on 05/05/2022 08:14 AM [facility] 05-05-2022 Infectious disease Progress note Date [...] diarrhea yesterday SKIN: Upper back rash/skin irritation POWER [employer]OD SAWYER-improving with no itching or pain, chest/abdominal skin [...] tablet 48 mg 1 tab(s), Oral, qDayM [facility] communication order dr luis waiting until keyona [...] RN on 05/05/2022 08:14 AM [facility] 05-05-2022 Note Date of Service 05/05/22 Chief Complaint Left arm cellulitis Subjective 51-year-old female with past medical history of scleroderma in the process of following with rheumatology, neuropathy, hyperlipidemia, chronic back pain follows with pain management, osteoporosis, degenerative joint disease, anemia, tobacco abuse who initially presented to [facility] on 04/29/2022 with complaints of left arm pain and cellulitis. Patient developed an ulcer on her forearm several days prior. Patient was seen by her PCP and prescribed Keflex with worsening symptoms. On arrival to [facility], patient was started on broad-spectrum antibiotics. An [...] Several hospitals were contacted for transfer including [place] [facility], [facility], [facility], [facility], [facility] orthopedics and [facility] who were unable to take the patient. Patient was therefore transferred to [facility] for further evaluation. While at [facility], blood work remained stable, hemoglobin 10.2. BMP [...] tablet 48 mg 1 tab(s), Oral, qDayM [facility] communication order dr luis waiting until keyona [...] CRP elevated on admission. MRI completed at [facility] showed signs of deep fascial infectious process [...] she is in process of establishing with lavender farm worker. Chronic neuropathy, continue home medications. HLD, continue [...] RAYMOND on 05/05/2022 10:00 AM [facility] 05-05-2022 Infectious disease Progress note Date [...] tablet 48 mg 1 tab(s), Oral, qDayM Mis communication order dr luis waiting until keyona [...] RN on 05/05/2022 08:14 AM [facility] 05-04-2022 Infectious disease Progress note Date [...] gas, diarrhea SKIN: Upper back rash/skin irritation POWER [employer]OD SAWYER-patient denies itching/pain, chest/abdominal skin irritation due to [...] tablet 48 mg 1 tab(s), Oral, qDayM [facility] communication order dr luis waiting until keyona [...] RN on 05/04/2022 01:59 PM [facility] 05-04-2022 Infectious disease Progress note Date [...] gas, diarrhea SKIN: Upper back rash/skin irritation 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 Please do not hesitate to reach out or re-consult for any additional concerns or questions. Digitally Signed by JOSE ECHEVARRIA MD on 05/04/2022 08:56 AM [facility] 05-04-2022 Orthopaedic surgery Progress note Date [...] follow up with her Ortho doc in [place] -Discussed with attending Digitally Signed by JOSE ECHEVARRIA MD on 05/03/2022 11:01 AM Digitally Signed by JOSE ECHEVARRIA MD on 05/03/2022 11:14 AM [facility] 05-04-2022 Note Date of Service 05/04/22 Chief Complaint left arm cellulitis Subjective 51-year-old female with past medical history of scleroderma in the process of following with rheumatology, neuropathy, hyperlipidemia, chronic back pain follows with pain management, osteoporosis, degenerative joint disease, anemia, tobacco abuse who initially presented to [facility] on 04/29/2022 with complaints of left arm pain and cellulitis. Patient developed an ulcer on her forearm several days prior. Patient was seen by her PCP and prescribed Keflex with worsening symptoms. On arrival to [facility], patient was started on broad-spectrum antibiotics. An [...] Several hospitals were contacted for transfer including [place] [facility], [facility], [facility], [facility], [facility] orthopedics and [facility] who were unable to take the patient. Patient was therefore transferred to [facility] for further evaluation. While at [facility], blood work remained stable, hemoglobin 10.2. BMP [...] unit(s)) 1,250 mcg 1 cap(s), Oral, qWeek Jasonft detergent 1 arash, Topical, BID eszopiclone 3 mg tablet 3 mg 1 tab(s), Oral, qHS fenofibrate 48 mg tablet 48 mg 1 tab(s), Oral, qDayM [facility] communication order dr luis waiting until keyona [...] CRP elevated on admission. MRI completed at [facility] showed signs of deep fascial infectious process [...] 5.1. If patient were to require transfer, [facility] would need to be considered as all other hospitals in area declined-this was discussed with the patient. Will await ID recommendations. Diarrhea, will check Cdiff given ongoing antibiotic therapy Additional blood work stable. Leukocytosis resolved, patient afebrile. Scleroderma, chronic. 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 Chronic neuropathy, continue home medications. HLD, continue [...] RAYMOND on 05/04/2022 09:54 AM [facility] 05-04-2022 Orthopaedic surgery Consult note Date [...] tablet 48 mg 1 tab(s), Oral, qDayM [facility] communication order dr luis waiting until keyona [...] follow up with her Ortho doc in [place] -Discussed with attending There is no further orthopedic intervention indicated at this time. Please do not hesitate to reach out or re-consult for any additional concerns or questions. 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 HEENT: Head normocephalic and atraumatic. PERRLA. [facility] oral mucosa. Neck: Supple. No lymphadenopathy. Lungs: [...] Imaging Results and Diagnostics Imaging last from [place]. EKG No qualifying data available. Assessment/Plan 1. [...] old and records can be found at [facility]. Due to diagnoses, multiple orthopedics feel as [...] assessment for further detail. 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 HEENT: Head normocephalic and atraumatic. PERRLA. [facility] oral mucosa. Neck: Supple. No lymphadenopathy. Lungs: [...] Imaging Results and Diagnostics Imaging last from [place]. EKG No qualifying data available. Assessment/Plan 1. [...] old and records can be found at [facility]. Due to diagnoses, multiple orthopedics feel as [...] assessment for further detail. Digitally Signed by JADE LUGO on 05/03/2022 01:52 PM [facility] 05-03-2022 Orthopaedic surgery Progress note Date of [...] follow up with her Ortho doc in [place] -Discussed with attending Digitally Signed by JOSE ECHEVARRIA MD on 05/03/2022 11:01 AM Digitally Signed by JOSE ECHEVARRIA MD on 05/03/2022 11:14 AM [facility] 05-03-2022 Orthopaedic surgery Consult note Date of Service 05/02/22 Reason for Consultation LUE soft tissue infection Referring Physician ID History of Present Illness 51-year-old female with past medical history of scleroderma admitted to [facility] for concerns of possible compartment syndrome of her left forearm. She was seen at [facility] and had advanced imaging performed there which showed that there might be fluid collecting within the compartments of her left forearm musculature. After multiple attempts at transferring her to a different facility she was transferred to [place]. 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 She reports [...] the ability to make a strong pinch mortgage specialist with the thumb flexing into the index [...] 1.11 Imaging Results and Diagnostics MRI from [facility] of the L forearm: Reviewed. No [...] follow up with her Ortho doc in [place] -Discussed with attending Problem List/Past Medical History [...] Domestic Concerns: None. Living situation: Home/Independent. Primary Pet Stylist: Selfcare. Lives In: Single level home. Current [...] DO on 05/03/2022 09:38 AM [facility] 05-02-2022 Infectious disease Consult note Date of Service 05/02/2022 Reason for Consultation Left arm abscess Referring Physician Dr. 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 She was admitted to [facility] on 315 and was transferred to [place] for further management. Prior to admission, patient [...] HEENT: Head is normocephalic and atraumatic. PERRLA. [facility] oral mucosa. Neck: Supple. No lymphadenopathy. Lungs: [...] the left forearm and MRI completed at [facility]. Assessment/Plan 1. Cellulitis of the left forearm, [...] their scope, will consider possible transfer to [facility] for further evaluation. Concern for compartment [...] Domestic Concerns: None. Living situation: Home/Independent. Primary Pet Stylist: Selfcare. Lives In: Single level home. Current [...] No qualifying data available. Digitally Signed by JADE LUGO on 05/02/2022 01:25 PM Digitally Signed by JADE LUGO on 05/02/2022 01:29 PM Digitally Signed by JADE LUGO on 05/02/2022 01:42 PM [facility] 05-02-2022 Orthopaedic surgery Consult note Date of Service 05/02/22 Reason for Consultation LUE soft tissue infection Referring Physician ID History of Present Illness 51-year-old female with past medical history of scleroderma admitted to [facility] for concerns of possible compartment syndrome of her left forearm. She was seen at [facility] and had advanced imaging performed there which showed that there might be fluid collecting within the compartments of her left forearm musculature. After multiple attempts at transferring her to a different facility she was transferred to [place]. 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 She reports [...] the ability to make a strong pinch mortgage specialist with the thumb flexing into the index [...] 1.11 Imaging Results and Diagnostics MRI from [facility] of the [facility] forearm: Reviewed. No [...] follow up with her Ortho doc in [place] -Discussed with attending Problem List/Past Medical History [...] Domestic Concerns: None. Living situation: Home/Independent. Primary Pet Stylist: Selfcare. Lives In: Single level home. Current [...] DO on 05/03/2022 09:38 AM [facility] 05-02-2022 Evaluation + Plan note Extrac nalini from: Title:Clinical Document Author:ALEXIS JAMES MD Date:05/02/22 [facility] Hospitalist History and Physical Date of Admission: 05/02/2022 Chief complaint: Left arm cellulitis History of present illness: History is taken from talking with the nurse practitioner at [facility] as well as talking with the patient. 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 Patient was admitted to [facility] on 04/29/2022. She presented with left arm pain and cellulitis. She had developed an ulcer in her forearm several days prior to admission. She reports that she has intermittent cellulitis and ulceration of the left arm secondary to scleroderma. Patient prior to admission at [place] was on Keflex with no improvement in her symptoms. In the emergency department in [place] she was given vancomycin and Zosyn. The [...] for possible drainage. The nurse practitioner contacted [place] [facility] photographic reproduction technician multiple times who declined to see the patient. [facility] was contacted and did not have any beds for 24 hours. [facility] and reported that they would only accept trauma patients. [facility] declined to take the patient stating that general orthopedic surgery could do the drainage. [facility] was also notified who stated that it was out of their scope of practice. [facility] also declined to take the [...] presents on 05/02/2022 as a transfer from [facility] due to having significant left arm cellulitis. [...] Date:05/25/2022 10:45:00 AM Scheduled Provider:SHRAVAN LUCAS MD Location:[facility] PM Appointment Type:PM OV Appointment Date:06/12/2022 02:00:00 PM Scheduled Provider:SOLIS SHELL Location:[facility] Appointment Type:PC OV Controlled Medication Future Scheduled Tests Laboratory* Hepatic Function Panel 02/02/22 * Thyroid Stimulating Hormone 02/02/22 * PTH, Intact 02/02/22 * Vitamin D Level 02/02/22 [facility] 03-18-2023 Infectious disease Consult note Date of Service 05/02/2022 Reason for Consultation Left arm abscess Referring Physician Dr. 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 She was admitted to [facility] on 315 and was transferred to [place] for further management. Prior to admission, patient [...] HEENT: Head is normocephalic and atraumatic. PERRLA. [facility] oral mucosa. Neck: Supple. No lymphadenopathy. Lungs: [...] the left forearm and MRI completed at [facility]. Assessment/Plan 1. Cellulitis of the left forearm, [...] their scope, will consider possible transfer to [facility] for further evaluation. Concern for compartment [...] Domestic Concerns: None. Living situation: Home/Independent. Primary Pet Stylist: Selfcare. Lives In: Single level home. Current [...] No qualifying data available. Digitally Signed by JADE LUGO on 05/02/2022 01:25 PM Digitally Signed by JADE LUGO on 05/02/2022 01:29 PM Digitally Signed by JADE LUGO on 05/02/2022 01:42 PM [id number] History and physical note [facility] Hospitalist History and Physical Date of Admission: 05/02/2022 Chief complaint: Left arm cellulitis History of present illness: History is taken from talking with the nurse practitioner at [facility] as well as talking with the patient. 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 Patient was admitted to [facility] on 04/29/2022. She presented with left arm pain and cellulitis. She had developed an ulcer in her forearm several days prior to admission. She reports that she has intermittent cellulitis and ulceration of the left arm secondary to scleroderma. Patient priorto admission at [place] was on Keflex with no improvement in her symptoms. In the emergency department in [place] she was given vancomycin and Zosyn. The [...] for possible drainage. The nurse practitioner contacted [place] [facility] photographic reproduction technician multiple times who declined to see the patient. [facility] was contacted and did not have any beds for 24 hours. [facility] and reported that they would only accept trauma patients. [facility] declined to take the patient stating that general orthopedic surgery could do the drainage. [facility] was also notified who stated that it was out of their scope of practice. [facility] also declined to take the patient. For [...] presents on 05/02/2022 as a transfer from [facility] due to having significant left arm cellulitis. [...] MD on 05/02/2022 03:59 AM [id number] Note Date of Service 05/01/2022 Chief Complaint LUE pain Subjective 51-year-old female with past medical history significant for scleroderma, DJD, hyperlipidemia. Patient presented to [facility] emergency department on 04/29/2022 with left [...] by BRANDI MOSELEY on 05/01/2022 01:01 PM [facility]03-17-2023 Note Date of Service 05/01/2022 Chief Complaint LUE pain Subjective 51-year-old female with past medical history significant for scleroderma, DJD, hyperlipidemia. Patient presented to [facility] emergency department on 04/29/2022 with left [...] by BRANDI MOSELEY on 05/01/2022 01:01 PM [facility]03-17-2023 Note ORIGINAL EXAMINATION: MRI OF [...] 05/01/2022 4:04:23 PM Ordering Provider: BRANDI MOSELEY [facility]03-17-2023 Note Date of Service 05/01/2022 Chief Complaint LUE pain Subjective 51-year-old female with past medical history significant for scleroderma, DJD, hyperlipidemia. Patient presented to [facility] emergency department on 04/29/2022 with left [...] 10 pain. Consider vascular causes. We will obtain Doppler of left upper extremity. Obtain MRI of forearm and wrist with and without contrast. Of note patient received Prolia last month. DVT prophylaxis: SCDs [...] by BRANDI MOSELEY on 05/01/2022 01:01 PM [facility]03-17-2023 Note ORIGINAL EXAMINATION: MRI OF [...] Sign Date: 05/01/2022 4:04:23 PM Ordering Provider: [facility]03-17-2023 Note Date of Service 05/01/22 Chief Complaint [...] Gwen Law Student on 05/01/2022 11:55 AM [facility]03-17-2023 Note ORIGINAL EXAMINATION: THREE XRAY [...] Sign Date: 05/01/2022 10:15:21 AM Ordering Provider: BRANDI MOSELEY [place] [address]-17-2023 Note ORIGINAL EXAMINATION: TWO XRAY VIEWS OF [...] Sign Date: 05/01/2022 10:12:41 AM Ordering Provider: [address]17-2023 Note ORIGINAL EXAMINATION: TWO XRAY VIEWS [...] Sign Date: 05/01/2022 10:12:41 AM Ordering Provider: [address]17-2023 Note ORIGINAL EXAMINATION: THREE XRAY VIEWS [...] Sign Date: 05/01/2022 10:15:21 AM Ordering Provider: [facility]03-16-2023 Note Date of Service 04/30/2022 Subjective 51-year-old female with past medical history significant for scleroderma, DJD, hyperlipidemia. Patient presented to [facility] emergency department on 04/29/2022 with left [...] by BRANDI MOSELEY on 04/30/2022 02:51 PM [facility]03-15-2023 Note Date of Service 04/29/2022 Chief Complaint c/o left arm infection and increased pain. History of Present Illness Patient is a 51-year-old female, who follows with Solis Shell CNP with a past medical history significant for scleroderma, degenerative joint disease, and hyperlipidemia, presents to [facility] emergency department with the chief complaint of [...] Domestic Concerns: None. Living situation: Home/Independent. Primary Pet Stylist: Selfcare. Lives In: Single level home. Current [...] by YOHANNES BOWIE on 04/29/2022 09:53 PM [facility]03-15-2023 Hospital Discharge instructions Follow Up Care 04/29/2022 12:52:43 With:SOLIS SHELL Address: [address] [place] [phone] When:05/05/2022 14:00:00 Comments:This is your post-hospital follow-up appointment. It is in the [facility] office. [facility] 03-15-2023 Evaluation + Plan noteExtracted [...] Appointment Date:05/05/2022 02:00:00 PM Scheduled Provider:SOLIS SHELL Location:[facility] Appointment Type:[facility] Hospital Follow-Up Appointment Date:05/25/2022 10:45:00 AM Scheduled Provider:SHRAVAN LUCAS MD Location:[facility] PM Appointment Type:PM OV Appointment Date:06/12/2022 02:00:00 PM Scheduled Provider:SOLIS SHELL Location:[facility] Appointment Type: OV Controlled Medication Future Scheduled Tests Laboratory* Hepatic Function Panel 02/02/22 * Thyroid Stimulating Hormone 02/02/22 * PTH, Intact 02/02/22 * Vitamin D Level 02/02/22 [facility] 12-19-2022 Evaluation + Plan note [...] Panel 05/19/22 * Complete Metabolic Panel 05/26/22 [facility] 11-01-2022 Evaluation + Plan note Future Appointments Appointment Date:12/23/2021 02:30:00 PM Scheduled Provider: Location:[facility] Appointment Type:PC Nurse Injection Appointment Date:12/30/2021 02:00:00 PM Scheduled Provider:SOLIS SHELL Location:[facility] Appointment Type:PC Wellness Medicare Appointment Date:01/14/2022 11:30:00 AM Scheduled Provider:WILLARD PERKINS Location:[facility] PM Appointment Type:PM OV Future Scheduled Tests Radiology* US Soft Tissue Mass Pelvis/Hip/Low Back 12/09/21 [facility] 10-07-2022 Miscellaneous Notes* Telephone Encounter - Tea Ruiz APRN.CNS - 11/21/2021 3:35 PM EDT Noted, seen by [facility] pain management also. * Telephone Encounter - Akua Chen LPN - 11/21/2021 11:12 AM EDT Casi from [facility] called stating that patient was in there office now and she was wanting information on previous visits regarding plan for patients pain. OV was printed and faxed to [phone]. [facility] History of Present illness Narrative* Tea Ruiz APRN.IMPREGNATOR HELPER - 11/21/2021 9:00 AM EDT SUBJECTIVE: HEPATITIS B(1 of 3 - 3-dose series) Never done COVID-19 VACCINE(1) Never done PNEUMOCOCCAL(1 - PCV) Never done HPV TESTING Never done PAP TESTING due on 03/06/2008 MAMMOGRAM Never done COLORECTAL CANCER SCREENING Never done DEPRESSION ASSESSMENT Never done INFLUENZA(1) Never done HPI Paris Moncada is a 51 year old female. H signficant for ACTIVE PROBLEM LIST Chronic Pain Syndrome History of Hyperlipidemia Personal History of Scleroderma B12 Deficiency Acquired Arm Deformity, Left Acquired Deformity of Left Lower Leg HPI excerpted from previous visit: Presents today to establish care with Dr Ernandez PCP: EAMON ROSS - Seen most recent for scripts. Previous PCP:Galdino Keita MD. [address] [facility] [id number] Pain management: Pamela MOMIN Marketing And Promotions Manager: none [facility] for chronic pain medication refill. She had called our office before beingseen here asking for refills. She was referred back to her previously prescribing provider however [facility]. Outside record review notes she presented with report of chronic pain since age 6. Noted relocation from [place]. Noted deformities of upper and lower extremities onexam. Last seen by her providers in [place] recently. Recent lab work. Outside records: None [...] No Comment: Marijuana laced brownies at a democrat by accident FAMILY HISTORY Problem Relation Age [...] ER 400 MG TABLET,EXTENDED RELEASE 24 HR Paris Moncada is tearful and very concerned about [...] for pain management provider, will fax to [facility]. Difficult to have conversation as she [...] Dr Ernandez to establish care Tea Ruiz APRN.DEMOND Medical Decision Making: Problems: Low: Acute, uncomplicated illness or injury Data: Independent interpretation of test from other physician/QHCP Medical Decision Making Level: 3 - Low documented in this encounterSycamore Medical Center09-22-2022 NoteHNO ID: [id number] Author: Melinda Workman MA Service: ? Author Type: Ditch Rider Type: Progress Notes Filed: 11/06/2021 9:51 AM [...] disturbance and suicidal ideas. The patient is nervous/anxious.[facility]09-22-2022 NoteHNO ID: [id number] Author: Marcellus Rosado MD Service: ? Author Type: Physician Type: Progress Notes Filed: 11/06/2021 9:54 AM Note Text: [facility] Today's Date: 11/06/2021 Last Visit: 10/02/2021 Name: Paris Moncada : 1970 Purpose: Follow-up Evaluation Chief complaint: Chronic RIGHT sided Pain Interval History: Paris Moncada returns today for a follow-up encounter, reporting that since last encounter, the overall pain and functional disability arising from the chief complaint has worsened. She reports she fractured her left shoulder 5 weeks ago, following with [facility]. She reports that she has been [...] below Procedures performed included below Discharged from [facility] for overtaking her pain medication (05/02/2020) Initial HPI: (Obtained on 10/02/2021) Paris Moncada is a 51 year old year-old [...] but her last pain management provider in [place] reduced her pain medications. Recently moved from [place] to [place], she was in pain management in [place]. She was established with [facility]. She went to [facility] for opioid medication refills while waiting [...] the chief complaint(s)): Opi (more content not included)...[facility]09-22-2022 History of Present illness Narrative* Melinda [...] not included. [facility] Today's Date: 11/06/2021 Last Visit: 10/02/2021 Name: Paris Moncada : 1970 Purpose: Follow-up Evaluation Chief complaint: Chronic RIGHT sided Pain Interval History: Paris Moncada returns today for a follow-up encounter, reporting that since last encounter, the overall pain and functional disability arising from the chief complaint has worsened. She reports she fractured her left shoulder 5 weeks ago, following with [facility]. She reports that she has been [...] below Procedures performed included below Discharged from [facility] pain pending sale to [facility] for overtaking her pain medication (05/02/2020) Initial HPI: (Obtained on 10/02/2021) Paris Moncada is a 51 year old year-old [...] but her last pain management provider in [place] reduced her pain medications. Recently moved from [place] to [place], she was in pain management in [place]. [facility]. She went to [facility] for opioid medication refills while waiting [...] the chief complaint(s)): Opioids: Tramadol, Vicodin or Holcomb (Hydrocodone), Percocet (Oxycodone), and Morphine NSAIDS: Motrin [...] diagnosis) (M47.814) Thoracic spondylosis without myelopathy (Z79.891) correction (current) use of opiate analgesic Impression & [...] family and they recently moved back to [place] from [place] therefore she came along with him if [...] consider the following treatments as outlined below: Paris Moncada would benefit from the following to decrease pain, improve function and/or work participation, and improve quality of life: Medications: Continue Elavil, Zanaflex with caution (PCP) JUANI-7/PHQ-2, and ORT: 10/02/2021 Completed and reviewed Functional Episcopalian: No changes-continue current regimen Additional Studies: XR Thoracic and lumbar Spine for baseline imaging Referrals: PT Additional: I was able to advise her to discuss shoulder injections with her Orthopedist. Given therecent left shoulder fracture, I advised her to hold off on any injections until she spoke with herOrthopedist. Depending on response to the above plan, consider: MBB/RFA L-spine Follow-up: PRN basis Attribution: In addition to reviewing the information noted above, some elements copied from my most recent clinical note(s), including the physical exam (completed in entirety today), and the impression and plan sections, have been updated where appropriate. All reflect current medical decision making from today's date. Marcellus Rosado MD, MBA [facility] documented in this encounterSycamore Medical Center09-15-2022 History of Present illness Narrative* Andrew Jenkins [...] She states she recently went to a dye boarding machine operator in [place] who would debride the callus She is [...] No Comment: Marijuana laced brownies at a democrat by accident REVIEW OF SYSTEMS GENERAL: Negative [...] or as needed. Andrew Jenkins DPM Podiatry [address] [place] [id number] Dept: [phone] Dept * Johanna Garcia LPN - 10/30/2021 10:57 AM EDT AMB ROOMING INTAKE FLOWSHEET DATA Pain Pain Level: 7 Pain Location: Foot-Left Description: Burning Duration Amount of Time: 2 Duration Units: Years Frequency: Continuous Intervention/Comfort measure: Reposition, Relaxation Patient presents with: Left Foot - New, Callous, Pain Patient states she was seeing dye boarding machine operator in [place] and has recently moved back to [place] and office in [place] has since then closed. Johanna Garcia LPN documented in this encounterSycamore Medical Center09-13-2022 Miscellaneous Notes* Telephone Encounter - Liss Valentino - 10/28/2021 10:29 AM EDT Patient given results and verbalized understanding of instructions given. Liss Valentino * Telephone Encounter - Grace Golden PA-C - 10/28/2021 10:07 AM EDT Let patient know her US showed no blood clot. Continue medications prescribed at visit and follow up with pcp as needed. documented in this encounterSycamore Medical Center09-12-2022 History of Present illness Narrative* Ginny Costa APRN.GARRISON - 10/27/2021 5:58 PM EDT Images from the original note were not included. Subjective Trauma Associated symptoms include a rash. Pertinent negatives include no chills or fever. Paris Oakes Amswilburkev a 51 year old female who presents [...] No Comment: Marijuana laced brownies at a democrat by accident Objective Physical Exam Vitals and [...] <130/80 Radha Moreno APRN Student TEACHING PROVIDER (Physician/PA/CURTAIN FRAMER) NOTE OF PERSONAL INVOLVEMENT IN CARE: I have personally seen and examined the patient and performed the medical decision-making components. I have reviewed the Advanced Practice Registered Nurse (CURTAIN FRAMER) Student's documentation and verified the findings in the note as written. Any additions or changes are noted in bold/italics. Signature: Ginny Costa Date: 10/27/2021 Time: 6:19 PM documented in this encounterSycamore Medical Center09-12-2022 Instructions* Patient Instructions* Ginny Costa APRN.CNP - 10/27/2021 5:54 PM EDT ASSESSMENT/PLAN: 1. [...] Discussed expected course of illness Ginny Costa APRN.CNP [facility] PATIENT INFO SKIN INFECTION OVERVIEW Cellulitis is an infection of the skin and soft tissue of the skin. The infection is usually causedby bacteria that normally live on the skin, such as staphylococci (Staph) or streptococci (Strep). The infection develops when there is a [...] types of skin infections include abscesses, furuncles (boils), andcarbuncles. These usually cause a collection of [...] infections in the future. documented in this encounterSycamore Medical Center08-23-2022 Miscellaneous Notes* Telephone Encounter - Missy Cbarera LPN - 10/07/2021 11:28 AM EDT Spoke with pt and information listed below given. Pt verbalizes understanding. Pt declined in scheduling a lab apt and will walk in to get done. Missy Cabrera LPN * Telephone Encounter - Tea Ruiz APRN.IMPREGNATOR HELPER - 10/06/2021 10:54 AM EDT She needs [...] notify patient. Griselda Culver documented in this encounterSycamore Medical Center08-18-2022 NoteHNO ID: [id number] Author: Amaya Mendoza MA Service: ? Author Type: Ditch Rider Type: Progress Notes Filed: 10/02/2021 9:37 AM [...] disturbance and suicidal ideas. The patient is nervous/anxious.[facility]08-18-2022 NoteHNO ID: [id number] Author: Silvana Joe APRN.EMPLOYEE HEALTH NURSE Service: ? Author Type: Nurse Practitioner Type: Progress Notes Filed: 10/02/2021 9:37 AM Note Text: [facility] Today's Date: 10/02/2021 Last Visit: N/A Name: Paris Moncada : 1970 Purpose: New Patient Evaluation Chief complaint: Chronic RIGHT sided Pain Interval History: N/A Initial HPI: (Obtained on 10/02/2021) Paris Moncada is a 51 year old year-old [...] but her last pain management provider in [place] reduced her pain medications. Recently moved from [place] to [place], she was in pain management in [place]. She was established with [facility]. She went to [facility] for opioid medication refills while waiting [...] the chief complaint(s)): Opioids: Tramadol, Vicodin or Holcomb (Hydrocodone), Percocet (Oxycodone), and Morphine NSAIDS: Motrin [...] activity was identified. 10/02/2021 by Silvana Joe APRN.EMPLOYEE HEALTH NURSE Last Drug screen: Not Applicable Risk Assessment: [...] Low Risk 0-3 (0-3, (more content not included)...[facility]08-06-2022 Miscellaneous Notes* Telephone Encounter - Viviana Chaney LPN - 09/20/2021 9:48 AM EDT Pt calling for refills. Seen SPOILAGE WORKER 08/12/21. Next appt is 11/12/21 Asking for rx today. documented in this encounterSycamore Medical Center08-02-2022 History of Present illness Narrative* Gregorio Soto APRN.EMPLOYEE HEALTH NURSE - 09/16/2021 3:39 PM EDT Images from [...] Laterality Date EXC CYST/ABERRANT BREAST TISSUE OPEN > LESION 01/23/2010 PAST SURGICAL HISTORY OF Left [...] of care. This note was generated using anchor.travel software. It may contain errors in wording, punctuation, or spelling. Gregorio Soto APRN.CNP documented in this encounterSycamore Medical Center06-29-2022 Miscellaneous Notes* Telephone Encounter - Keerthi Monk - 08/13/2021 9:34 AM EDT Patient has been scheduled for 10/02/21 in [place] with Silvana Joe. Keerthi Monk * Telephone Encounter - Manuela Voss - 08/12/2021 3:49 PM EDT Patient would like to be seen by pain management in [place]. Order has been placed, please assist. documented in this encounterSycamore Medical Center06-28-2022 Instructions* Patient Instructions* Tea Ruiz APRN.IMPREGNATOR HELPER - 08/12/2021 2:56 PM EDT Check to see if your insurance covers Tdap (tetanus diphtheria pertussis ) vaccine and what location to get the vaccine -usually best covered at your local pharmacy where you get prescriptions filled Consider stopping smoking documented in this [facility]06-28-2022 History of Present illness Narrative* Tea Ruiz APRN.IMPREGNATOR HELPER - 08/12/2021 2:40 PM EDT SUBJECTIVE: COVID-19 VACCINE(1) Never done PNEUMOCOCCAL(1 - PCV) Never done HEPATITIS C SCREENING Never done HIV SCREENING Never done HPV TESTING Never done PAP TESTING due on 03/06/2008 MAMMOGRAM Never done LIPID SCREEN Never done DIABETES SCREEN Never done COLORECTAL CANCER SCREENING Never done HPI Paris Moncada is a 51 year old female. [facility] signficant for ACTIVE PROBLEM LIST Chronic Pain Syndrome History of Hyperlipidemia Personal History of Scleroderma B12 Deficiency Acquired Arm Deformity, Left Acquired Deformity of Left Lower Leg Presents today to establish care with Dr Ernandez PCP: EAMON ROSS - Seen most recent for scripts. Previous PCP:Galdino Keita MD. [address] [facility] [id number] Pain management: Pamela Beck [place] Marketing And Promotions Manager: none [facility] for chronic pain medication refill. She had called our office before beingseen here asking for refills. She was referred back to her previously prescribing provider however [facility]. Outside record review notes she presented with report of chronic pain since age 6. Noted relocation from [place]. No deformities of upper and lower extremities on exam. Last seen by her providers in [place] recently. Recent lab work. Outside records: None [...] 84 Resp 16 Ht 142.2 cm (4' 8) Wt 48.5 kg (107 lb) BMI 23.99 [...] suspiciousactivity was identified. 08/12/2021 by Tea Ruiz APRN.IMPREGNATOR HELPER 2. Encounter for immunization - ICD9: V03.89, [...] ICD9: V72.31, ICD10: Z01.419 - CONSULT TO PUMP HOUSE OPERATOR 13. B12 deficiency - ICD9: 266.2, ICD10: [...] visit. 3 mo follow up Tea Ruiz APRN.IMPREGNATOR HELPER [address] Ernandez to establish care Tea Ruiz APRN.IMPREGNATOR HELPER Medical Decision Making: Problems: Moderate: 2+ stable chronic illnesses Data: Unique test(s) ordered: 3+ Risk: Moderate: Drug management Medical Decision Making Level: 4 - Moderate documented in this encounterSycamore Medical Center06-24-2022 Miscellaneous Notes* Telephone Encounter - Tea Ruiz [...] a refill for her. documented in this encounterSycamore Medical CenterEvaluation + Plan note Future Appointments Appointment Date:01/14/2022 11:30:00 AM Scheduled Provider:WILLARD PERKINS Location:[facility] PM Appointment Type:PM OV Appointment Date:01/15/2022 11:15:00 [...] 12/30/21 * US Breast Left Complete 12/30/21 [facility] Evaluation + Plan note Future Appointments Appointment Date:01/29/2022 10:30:00 AM Scheduled Provider: Location:[facility] Appointment Type:MA Mammogram Screening Bilateral w/ Zev Appointment Date:01/29/2022 11:00:00 AM Scheduled Provider: Location:[facility] Appointment Type:US Breast Left Complete Appointment Date:02/25/2022 01:15:00 PM Scheduled Provider:WILLARD PERKINS Location:[facility] PM Appointment Type:PM OV Future Scheduled Tests Laboratory* Vitamin B12 Level 12/30/21 * Lipid Profile 12/30/21 * Hepatitis C Antibody IgG 12/30/21 * Complete Metabolic Panel 12/30/21 Radiology* MA Mammo Screening Bilateral w/ Zev 01/29/22 * US Breast Left Complete 01/29/22 [facility] Evaluation + Plan note Future Appointments Appointment Date:02/02/2022 01:30:00 PM Scheduled Provider:SOLIS SHELL Location:[facility] Appointment Type:PC OV Appointment Date:02/25/2022 01:15:00 PM Scheduled Provider:WILLARD PERKINS Location:[facility] PM Appointment Type:PM OV [facility] Evaluation + Plan note Future Appointments Appointment Date:05/25/2022 10:45:00 AM Scheduled Provider:SHRAVAN LUCAS MD Location:[facility] PM Appointment Type:PM OV Appointment Date:06/12/2022 02:00:00 PM Scheduled Provider:SOLIS SHELL Location:[facility] Appointment Type:PC OV Controlled Medication Future Scheduled Tests Laboratory* Hepatic Function Panel 02/02/22 * Thyroid Stimulating Hormone 02/02/22 * PTH, Intact 02/02/22 * Vitamin D Level 02/02/22 [facility] Evaluation + Plan note Future Appointments Appointment Date:05/01/2022 01:00:00 PM Scheduled Provider:SOLIS SHELL Location:[facility] Appointment Type:PC OV Appointment Date:05/25/2022 10:45:00 AM Scheduled Provider:SHRAVAN LUCAS MD Location:[facility] PM Appointment Type:PM OV Appointment Date:06/12/2022 02:00:00 PM Scheduled Provider:SOLIS SHELL Location:[facility] Appointment Type:PC OV Controlled Medication Future Scheduled Tests Laboratory* Hepatic Function Panel 02/02/22 * Thyroid Stimulating Hormone 02/02/22 * PTH, Intact 02/02/22 * Vitamin D Level 02/02/22 [facility] Evaluation + Plan note Future Appointments Appointment Date:05/15/2022 01:00:00 PM Scheduled Provider:SOLIS SHELL Location:[facility] Appointment Type:PC OV Appointment Date:05/25/2022 10:45:00 AM Scheduled Provider:SHRAVAN LUCAS MD Location:[facility] PM Appointment Type:PM OV Appointment Date:06/12/2022 02:00:00 [...] Panel 05/19/22 * Complete Metabolic Panel 05/26/22 [facility] Evaluation + Plan note Future Appointments Appointment Date:06/12/2022 02:00:00 PM Scheduled Provider:SOLIS SHELL Location:[facility] Appointment Type: OV Controlled Medication Appointment Date:07/01/2022 09:45:00 AM Scheduled Provider:WILLARD PERIKNS Location:[facility] PM Appointment Type:PM OV Future Scheduled Tests [...] Panel 05/19/22 * Complete Metabolic Panel 05/26/22 [facility] Evaluation + Plan note Future Appointments Appointment Date:07/29/2022 10:00:00 AM Scheduled Provider:WILLARD PERKINS Location:[facility] PM Appointment Type:PM OV Future Scheduled Tests [...] Panel 05/19/22 * Complete Metabolic Panel 05/26/22 [facility] Evaluation + Plan note Future Appointments Appointment Date:08/12/2022 03:30:00 PM Scheduled Provider: Location:[facility] Appointment Type:GI OV Consult Appointment Date:10/19/2022 02:00:00 PM Scheduled Provider:TEA LILLY PA-C Location:[facility] Appointment Type:PC OV Controlled Medication Future [...] Panel 05/19/22 * Complete Metabolic Panel 05/26/22 [facility] Evaluation noteNo assessment information available [facility] Work Phone: Evaluation note* Diagnosis Chronic pain syndrome- Primary [...] Corns and callosities documented in this encounter [facility]* Diagnosis Ear infection- Primary Unspecified otitis media documented in this encounter [facility]* Diagnosis Insomnia, unspecified type- Primary documented in this [facility]* Diagnosis Chronic pain syndrome Personal history of scleroderma Personal history of other musculoskeletal disorders documented in this encounter [facility]* Diagnosis Right calf pain- Primary Cellulitis of right lower leg Cellulitis and abscess of leg, except foot Itching Unspecified pruritic disorder Elevated blood pressure reading without diagnosis of hypertension documented in this encounter [facility]* Diagnosis Equinus contracture of ankle- Primary Pes cavus Talipes cavus Callus of foot Corns and callosities Acquired deformity of left lower leg Other acquired deformity of other parts of limb Chronic pain syndrome Personal history of scleroderma Personal history of other musculoskeletal disorders documented in this encounter [facility]* Diagnosis Lumbar spondylosis- Primary Lumbosacral spondylosis without myelopathy Thoracic spondylosis without myelopathy correction (current) use of opiate analgesic documented in this encounter [facility]* Diagnosis Onset Date Resolution Status Closed left clavicular fracture noneactive Closed left clavicular fracture noneactive Closed left clavicular fracture noneactive [facility] Work Phone: Evaluation note* Diagnosis Chronic pain syndrome- Primary Personal history of scleroderma Personal history of other musculoskeletal disorders Acquired arm deformity, left Acquired deformity of left lower leg Other acquired deformity of other parts of limb documented in this encounter [facility]* Diagnosis Onset Date Resolution Status Arthritis of left glenohumeral joint noneactive Closed left clavicular fracture noneactive Contusion of right hip nonea ctive Bony sclerosis acute Bursitis of right hip acute Enchondroma of bone [facility] Work Phone: Evaluation note* Diagnosis Onset Date Resolution Status Arthritis of left glenohumeral joint noneactive Closed left clavicular fracture noneactive Contusion of right hip nonea ctive Bony sclerosis acute Bursitis of right hip acute Enchondroma of bone chronic Bursitis of right hip acute Enchondroma of bone chronic [facility] Work Phone: Evaluation note* Diagnosis Onset Date Resolution Status Bony sclerosis acute Bursitis of right hip acute Enchondroma of bone chronic Bursitis of right hip acute Enchondroma of bone chronic [facility] Work Phone: Evaluation note* Diagnosis Onset Date Resolution Status Bursitis of right hip acute DDD (degenerative disc disease), lumbar acute Iliotibial band syndrome of right side acute Bursitis of right hip acute DDD (degenerative disc disease), lumbar acute Iliotibial band syndrome of right side [facility] Work Phone: Evaluation note* Diagnosis Lumbar spondylosis- Primary Lumbosacral spondylosis without myelopathy Low back pain, unspecified back pain laterality, unspecified chronicity, unspecified whether sciatica present Thoracic spondylosis without myelopathy Chronic, continuous use of opioids Opioid type dependence, continuous documented in this encounter [facility]* Diagnosis Insomnia, unspecified type- Primary 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 Chronic pain syndrome [facility] Diagnosis Insomnia, unspecified type [facility]* Diagnosis 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 [facility] Diagnosis Chronic pain syndrome- Primary Irritation of left eye Primary hypertension Unspecified essential hypertension [facility] Diagnosis 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 [facility] Diagnosis Chronic pain syndrome- Primary Insomnia, unspecified type 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 Primary hypertension Unspecified essential hypertension Colon cancer screening Special screening for malignant neoplasms, colon documented [facility]* Diagnosis Onset Date Resolution Status Scleroderma acute [facility] Work Phone: Evaluation note* Diagnosis Routine general medical examination at health care facility- Primary Routine general medical examination at a health care facility Primary hypertension Unspecified essential hypertension Screening for deficiency anemia Screening for other and unspecified deficiency anemia Hypercholesterolemia Pure hypercholesterolemia Screening for lung cancer Encounter for screening mammogram for malignant neoplasm of breast Encounter for vitamin deficiency screening 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 Insomnia, unspecified type Acute bacterial conjunctivitis of right eye Irritable bowel syndrome, unspecified type Recurrent major depressive disorder, in full remission ([facility]) Osteopetrosis Osteoporosis, unspecified osteoporosis type, unspecified pathological fracture presence documented [facility]* Diagnosis Osteoporosis, unspecified osteoporosis type, unspecified pathological fracture presence- Primary Osteopetrosis [facility] Diagnosis Hypercholesterolemia- Primary Pure hypercholesterolemia documented [facility]* Diagnosis Chronic midline thoracic back pain- Primary Chronic pain syndrome Linear scleroderma Circumscribed scleroderma Insomnia, unspecified type documented in this encounter [facility]* Diagnosis Chronic midline thoracic back pain documented in this encounter [facility]* Diagnosis Chronic pain syndrome- Primary Acute right-sided low back pain without sciatica Skin pimple Chronic pain of both upper extremities documented in this encounter [facility]* Diagnosis Mass on back- Primary Localized superficial swelling, mass, or lump Chronic midline thoracic back pain Systemic sclerosis (HCC) Systemic sclerosis Chronic pain syndrome Insomnia, unspecified type Spondylosis of lumbar spine documented in this encounter [facility]* Diagnosis Chronic pain syndrome- Primary Chronic midline thoracic back pain Systemic sclerosis (HCC) Systemic sclerosis 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 Chronic pain of both upper extremities Arthritis of left glenohumeral joint documented in this encounter [facility]* Diagnosis Routine general medical examination at health care facility- Primary Routine general medical examination at a health care facility Primary hypertension Unspecified essential hypertension Screening for deficiency anemia Screening for other and unspecified deficiency anemia Hypercholesterolemia Pure hypercholesterolemia Screening for lung cancer Encounter for screening mammogram for malignant neoplasm of breast Encounter for vitamin deficiency screening 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 Insomnia, unspecified type Acute bacterial conjunctivitis of right eye Irritable bowel syndrome, unspecified type Recurrent major depressive disorder, in full remission (HCC) Osteopetrosis Osteoporosis, unspecified osteoporosis type, unspecified pathological fracture presence Tobacco use disorder documented in this encounter [facility]* Diagnosis Insomnia, unspecified type documented in this encounter [facility]* Diagnosis Mass on back Localized superficial swelling, mass, or lump Systemic sclerosis (HCC) Systemic sclerosis documented in this encounter [facility]* Diagnosis Chronic midline thoracic back pain documented in this encounter [facility]* Diagnosis Chronic pain syndrome documented in this encounter [facility]* Diagnosis Bulging lumbar disc- Primary Leg length discrepancy Unequal leg length (acquired) Other osteoarthritis of spine, lumbar region Primary hypertension Unspecified essential hypertension Chronic pain syndrome Mass on back Localized superficial swelling, mass, or lump Osteoporosis, unspecified osteoporosis type, unspecified pathological fracture presence Primary insomnia Persistent disorder of initiating or maintaining sleep documented in this encounter [facility]* Diagnosis Age-related osteoporosis without current pathological fracture- Primary Scleroderma (HCC) Systemic sclerosis Vitamin D deficiency Fatigue, unspecified type [facility]* Diagnosis Chronic pain syndrome- Primary Linear scleroderma Circumscribed scleroderma Primary hypertension Unspecified essential hypertension Osteopetrosis Osteoporosis, unspecified osteoporosis type, unspecified pathological fracture presence documented in this encounter [facility]* Diagnosis Insomnia, unspecified type documented in this encounter [facility]* Diagnosis Chronic midline thoracic back pain documented in this [facility]* Diagnosis Hypercholesterolemia Pure hypercholesterolemia documented in this encounter [facility]* Diagnosis Chronic pain syndrome- Primary Insomnia, unspecified type Linear scleroderma Circumscribed scleroderma Primary hypertension Unspecified essential hypertension documented in this encounter [facility]* Diagnosis Chronic pain syndrome- Primary Insomnia, unspecified type Linear scleroderma Circumscribed scleroderma Primary hypertension Unspecified essential hypertension Osteoporosis, unspecified osteoporosis type, unspecified pathological fracture presence Other osteoarthritis of spine, lumbar region Hypercholesterolemia Pure hypercholesterolemia documented in this encounter [facility]* Diagnosis Chronic pain syndrome- Primary Insomnia, unspecified type Linear scleroderma Circumscribed scleroderma Primary hypertension Unspecified essential hypertension Osteoporosis, unspecified osteoporosis type, unspecified pathological fracture presence Other osteoarthritis of spine, lumbar region Hypercholesterolemia Pure hypercholesterolemia documented in this encounter [facility]* Diagnosis Spondylosis without myelopathy or radiculopathy, lumbar region- Primary Linear scleroderma Circumscribed scleroderma Uncomplicated opioid dependence (HCC) documented in this encounter [facility]* Diagnosis Chronic pain syndrome- Primary Chronic midline thoracic back pain Primary hypertension Unspecified essential hypertension Irritable bowel syndrome with both constipation and diarrhea Linear scleroderma Circumscribed scleroderma Primary insomnia Persistent disorder of initiating or maintaining sleep Encounter for screening mammogram for malignant neoplasm of breast Osteoporosis, unspecified osteoporosis type, unspecified pathological fracture presence documented in this encounter [facility]* Diagnosis Insomnia, unspecified type documented in this encounter [facility]* Diagnosis Insomnia, unspecified type- Primary 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 Chronic pain syndrome Primary hypertension- Primary Unspecified essential hypertension Chronic pain syndrome 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 Immunization due Chronic pain syndrome- Primary Irritation of left eye Primary hypertension Unspecified essential hypertension Chronic pain syndrome- Primary Insomnia, unspecified type 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 Primary hypertension Unspecified essential hypertension Colon cancer screening Special screening for malignant neoplasms, colon Routine general medical examination at health care facility- Primary Routine general medical examination at a health care facility Primary hypertension Unspecified essential hypertension Screening for deficiency anemia Screening for other and unspecified deficiency anemia Hypercholesterolemia Pure hypercholesterolemia Screening for lung cancer Encounter for screening mammogram for malignant neoplasm of breast Encounter for vitamin deficiency screening 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 Insomnia, unspecified type Acute bacterial conjunctivitis of right eye Irritable bowel syndrome, unspecified type Recurrent major depressive disorder, in full remission (HCC) Osteopetrosis Osteoporosis, unspecified osteoporosis type, unspecified pathological fracture presence Tobacco use disorder Chronic midline thoracic back pain- Primary Chronic pain syndrome Linear scleroderma Circumscribed scleroderma Insomnia, unspecified type Chronic pain syndrome- Primary Acute right-sided low back pain without sciatica Skin pimple Chronic pain of both upper extremities Mass on back- Primary Localized superficial swelling, mass, or lump Chronic midline thoracic back pain Systemic sclerosis (HCC) Systemic sclerosis Chronic pain syndrome Insomnia, unspecified type Spondylosis of lumbar spine Bulging lumbar disc- Primary Leg length discrepancy Unequal leg length (acquired) Other osteoarthritis of spine, lumbar region Primary hypertension Unspecified essential hypertension Chronic pain syndrome Mass on back Localized superficial swelling, mass, or lump Osteoporosis, unspecified osteoporosis type, unspecified pathological fracture presence Primary insomnia Persistent disorder of initiating or maintaining sleep Chronic pain syndrome- Primary Linear scleroderma Circumscribed scleroderma Primary hypertension Unspecified essential hypertension Osteopetrosis Osteoporosis, unspecified osteoporosis type, unspecified pathological fracture presence Chronic pain syndrome- Primary Insomnia, unspecified type Linear scleroderma Circumscribed scleroderma Primary hypertension Unspecified essential hypertension Chronic pain syndrome- Primary Insomnia, unspecified type Linear scleroderma Circumscribed scleroderma Primary hypertension Unspecified essential hypertension Osteoporosis, unspecified osteoporosis type, unspecified pathological fracture presence Other osteoarthritis of spine, lumbar region Hypercholesterolemia Pure hypercholesterolemia Chronic pain syndrome- Primary Chronic midline thoracic back pain Primary hypertension Unspecified essential hypertension Irritable bowel syndrome with both constipation and diarrhea Linear scleroderma Circumscribed scleroderma Primary insomnia Persistent disorder of initiating or maintaining sleep Encounter for screening mammogram for malignant neoplasm of breast Osteoporosis, unspecified osteoporosis type, unspecified pathological fracture presence Chronic pain syndrome- Primary Arthritis Unspecified arthropathy, site unspecified Influenza vaccine needed Linear scleroderma Circumscribed scleroderma Primary hypertension Unspecified essential hypertension documented [facility] this encounter [facility]* Diagnosis Insomnia, unspecified type- Primary 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 Chronic pain syndrome Primary hypertension- Primary Unspecified essential hypertension Chronic pain syndrome 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 Immunization due Chronic pain syndrome- Primary Irritation of left eye Primary hypertension Unspecified essential hypertension Chronic pain syndrome- Primary Insomnia, unspecified type 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 Primary hypertension Unspecified essential hypertension Colon cancer screening Special screening for malignant neoplasms, colon Routine general medical examination at health care facility- Primary Routine general medical examination at a health care facility Primary hypertension Unspecified essential hypertension Screening for deficiency anemia Screening for other and unspecified deficiency anemia Hypercholesterolemia Pure hypercholesterolemia Screening for lung cancer Encounter for screening mammogram for malignant neoplasm of breast Encounter for vitamin deficiency screening 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 Insomnia, unspecified type Acute bacterial conjunctivitis of right eye Irritable bowel syndrome, unspecified type Recurrent major depressive disorder, in full remission (HCC) Osteopetrosis Osteoporosis, unspecified osteoporosis type, unspecified pathological fracture presence Tobacco use disorder Chronic midline thoracic back pain- Primary Chronic pain syndrome Linear scleroderma Circumscribed scleroderma Insomnia, unspecified type Chronic pain syndrome- Primary Acute right-sided low back pain without sciatica Skin pimple Chronic pain of both upper extremities Mass on back- Primary Localized superficial swelling, mass, or lump Chronic midline thoracic back pain Systemic sclerosis (HCC) Systemic sclerosis Chronic pain syndrome Insomnia, unspecified type Spondylosis of lumbar spine Bulging lumbar disc- Primary Leg length discrepancy Unequal leg length (acquired) Other osteoarthritis of spine, lumbar region Primary hypertension Unspecified essential hypertension Chronic pain syndrome Mass on back Localized superficial swelling, mass, or lump Osteoporosis, unspecified osteoporosis type, unspecified pathological fracture presence Primary insomnia Persistent disorder of initiating or maintaining sleep Chronic pain syndrome- Primary Linear scleroderma Circumscribed scleroderma Primary hypertension Unspecified essential hypertension Osteopetrosis Osteoporosis, unspecified osteoporosis type, unspecified pathological fracture presence Chronic pain syndrome- Primary Insomnia, unspecified type Linear scleroderma Circumscribed scleroderma Primary hypertension Unspecified essential hypertension Chronic pain syndrome- Primary Insomnia, unspecified type Linear scleroderma Circumscribed scleroderma Primary hypertension Unspecified essential hypertension Osteoporosis, unspecified osteoporosis type, unspecified pathological fracture presence Other osteoarthritis of spine, lumbar region Hypercholesterolemia Pure hypercholesterolemia Chronic pain syndrome- Primary Chronic midline thoracic back pain Primary hypertension Unspecified essential hypertension Irritable bowel syndrome with both constipation and diarrhea Linear scleroderma Circumscribed scleroderma Primary insomnia Persistent disorder of initiating or maintaining sleep Encounter for screening mammogram for malignant neoplasm of breast Osteoporosis, unspecified osteoporosis type, unspecified pathological fracture presence Chronic pain syndrome- Primary Arthritis Unspecified arthropathy, site unspecified Influenza vaccine needed Linear scleroderma Circumscribed scleroderma Primary hypertension Unspecified essential hypertension Chronic pain syndrome- Primary Bulging lumbar disc Yeast dermatitis Chronic right-sided low back pain without sciatica Mass on back Localized superficial swelling, mass, or lump documented in this encounter [facility]* Diagnosis Insomnia, unspecified type- Primary 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 Chronic pain syndrome Primary hypertension- Primary Unspecified essential hypertension Chronic pain syndrome 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 Immunization due Chronic pain syndrome- Primary Irritation of left eye Primary hypertension Unspecified essential hypertension Chronic pain syndrome- Primary Insomnia, unspecified type 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 Primary hypertension Unspecified essential hypertension Colon cancer screening Special screening for malignant neoplasms, colon Routine general medical examination at health care facility- Primary Routine general medical examination at a health care facility Primary hypertension Unspecified essential hypertension Screening for deficiency anemia Screening for other and unspecified deficiency anemia Hypercholesterolemia Pure hypercholesterolemia Screening for lung cancer Encounter for screening mammogram for malignant neoplasm of breast Encounter for vitamin deficiency screening 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 Insomnia, unspecified type Acute bacterial conjunctivitis of right eye Irritable bowel syndrome, unspecified type Recurrent major depressive disorder, in full remission (HCC) Osteopetrosis Osteoporosis, unspecified osteoporosis type, unspecified pathological fracture presence Tobacco use disorder Chronic midline thoracic back pain- Primary Chronic pain syndrome Linear scleroderma Circumscribed scleroderma Insomnia, unspecified type Chronic pain syndrome- Primary Acute right-sided low back pain without sciatica Skin pimple Chronic pain of both upper extremities Mass on back- Primary Localized superficial swelling, mass, or lump Chronic midline thoracic back pain Systemic sclerosis (HCC) Systemic sclerosis Chronic pain syndrome Insomnia, unspecified type Spondylosis of lumbar spine Bulging lumbar disc- Primary Leg length discrepancy Unequal leg length (acquired) Other osteoarthritis of spine, lumbar region Primary hypertension Unspecified essential hypertension Chronic pain syndrome Mass on back Localized superficial swelling, mass, or lump Osteoporosis, unspecified osteoporosis type, unspecified pathological fracture presence Primary insomnia Persistent disorder of initiating or maintaining sleep Chronic pain syndrome- Primary Linear scleroderma Circumscribed scleroderma Primary hypertension Unspecified essential hypertension Osteopetrosis Osteoporosis, unspecified osteoporosis type, unspecified pathological fracture presence Chronic pain syndrome- Primary Insomnia, unspecified type Linear scleroderma Circumscribed scleroderma Primary hypertension Unspecified essential hypertension Chronic pain syndrome- Primary Insomnia, unspecified type Linear scleroderma Circumscribed scleroderma Primary hypertension Unspecified essential hypertension Osteoporosis, unspecified osteoporosis type, unspecified pathological fracture presence Other osteoarthritis of spine, lumbar region Hypercholesterolemia Pure hypercholesterolemia Chronic pain syndrome- Primary Chronic midline thoracic back pain Primary hypertension Unspecified essential hypertension Irritable bowel syndrome with both constipation and diarrhea Linear scleroderma Circumscribed scleroderma Primary insomnia Persistent disorder of initiating or maintaining sleep Encounter for screening mammogram for malignant neoplasm of breast Osteoporosis, unspecified osteoporosis type, unspecified pathological fracture presence Chronic pain syndrome- Primary Arthritis Unspecified arthropathy, site unspecified Influenza vaccine needed Linear scleroderma Circumscribed scleroderma Primary hypertension Unspecified essential hypertension Chronic pain syndrome- Primary Bulging lumbar disc Yeast dermatitis Chronic right-sided low back pain without sciatica Mass on back Localized superficial swelling, mass, or lump Chronic midline thoracic back pain documented [facility] encounter [facility]* Diagnosis Insomnia, unspecified type- Primary 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 Chronic pain syndrome Primary hypertension- Primary Unspecified essential hypertension Chronic pain syndrome 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 Immunization due Chronic pain syndrome- Primary Irritation of left eye Primary hypertension Unspecified essential hypertension Chronic pain syndrome- Primary Insomnia, unspecified type 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 Primary hypertension Unspecified essential hypertension Colon cancer screening Special screening for malignant neoplasms, colon Routine general medical examination at health care facility- Primary Routine general medical examination at a health care facility Primary hypertension Unspecified essential hypertension Screening for deficiency anemia Screening for other and unspecified deficiency anemia Hypercholesterolemia Pure hypercholesterolemia Screening for lung cancer Encounter for screening mammogram for malignant neoplasm of breast Encounter for vitamin deficiency screening 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 Insomnia, unspecified type Acute bacterial conjunctivitis of right eye Irritable bowel syndrome, unspecified type Recurrent major depressive disorder, in full remission (HCC) Osteopetrosis Osteoporosis, unspecified osteoporosis type, unspecified pathological fracture presence Tobacco use disorder Chronic midline thoracic back pain- Primary Chronic pain syndrome Linear scleroderma Circumscribed scleroderma Insomnia, unspecified type Chronic pain syndrome- Primary Acute right-sided low back pain without sciatica Skin pimple Chronic pain of both upper extremities Mass on back- Primary Localized superficial swelling, mass, or lump Chronic midline thoracic back pain Systemic sclerosis (HCC) Systemic sclerosis Chronic pain syndrome Insomnia, unspecified type Spondylosis of lumbar spine Bulging lumbar disc- Primary Leg length discrepancy Unequal leg length (acquired) Other osteoarthritis of spine, lumbar region Primary hypertension Unspecified essential hypertension Chronic pain syndrome Mass on back Localized superficial swelling, mass, or lump Osteoporosis, unspecified osteoporosis type, unspecified pathological fracture presence Primary insomnia Persistent disorder of initiating or maintaining sleep Chronic pain syndrome- Primary Linear scleroderma Circumscribed scleroderma Primary hypertension Unspecified essential hypertension Osteopetrosis Osteoporosis, unspecified osteoporosis type, unspecified pathological fracture presence Chronic pain syndrome- Primary Insomnia, unspecified type Linear scleroderma Circumscribed scleroderma Primary hypertension Unspecified essential hypertension Chronic pain syndrome- Primary Insomnia, unspecified type Linear scleroderma Circumscribed scleroderma Primary hypertension Unspecified essential hypertension Osteoporosis, unspecified osteoporosis type, unspecified pathological fracture presence Other osteoarthritis of spine, lumbar region Hypercholesterolemia Pure hypercholesterolemia Chronic pain syndrome- Primary Chronic midline thoracic back pain Primary hypertension Unspecified essential hypertension Irritable bowel syndrome with both constipation and diarrhea Linear scleroderma Circumscribed scleroderma Primary insomnia Persistent disorder of initiating or maintaining sleep Encounter for screening mammogram for malignant neoplasm of breast Osteoporosis, unspecified osteoporosis type, unspecified pathological fracture presence Chronic pain syndrome- Primary Arthritis Unspecified arthropathy, site unspecified Influenza vaccine needed Linear scleroderma Circumscribed scleroderma Primary hypertension Unspecified essential hypertension Chronic pain syndrome- Primary Bulging lumbar disc Yeast dermatitis Chronic right-sided low back pain without sciatica Mass on back Localized superficial swelling, mass, or lump Chronic pain syndrome documented in this encounter [facility]* Diagnosis Insomnia, unspecified type- Primary 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 Chronic pain syndrome Primary hypertension- Primary Unspecified essential hypertension Chronic pain syndrome 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 Immunization due Chronic pain syndrome- Primary Irritation of left eye Primary hypertension Unspecified essential hypertension Chronic pain syndrome- Primary Insomnia, unspecified type 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 Primary hypertension Unspecified essential hypertension Colon cancer screening Special screening for malignant neoplasms, colon Routine general medical examination at health care facility- Primary Routine general medical examination at a health care facility Primary hypertension Unspecified essential hypertension Screening for deficiency anemia Screening for other and unspecified deficiency anemia Hypercholesterolemia Pure hypercholesterolemia Screening for lung cancer Encounter for screening mammogram for malignant neoplasm of breast Encounter for vitamin deficiency screening 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 Insomnia, unspecified type Acute bacterial conjunctivitis of right eye Irritable bowel syndrome, unspecified type Recurrent major depressive disorder, in full remission (HCC) Osteopetrosis Osteoporosis, unspecified osteoporosis type, unspecified pathological fracture presence Tobacco use disorder Chronic midline thoracic back pain- Primary Chronic pain syndrome Linear scleroderma Circumscribed scleroderma Insomnia, unspecified type Chronic pain syndrome- Primary Acute right-sided low back pain without sciatica Skin pimple Chronic pain of both upper extremities Mass on back- Primary Localized superficial swelling, mass, or lump Chronic midline thoracic back pain Systemic sclerosis (HCC) Systemic sclerosis Chronic pain syndrome Insomnia, unspecified type Spondylosis of lumbar spine Bulging lumbar disc- Primary Leg length discrepancy Unequal leg length (acquired) Other osteoarthritis of spine, lumbar region Primary hypertension Unspecified essential hypertension Chronic pain syndrome Mass on back Localized superficial swelling, mass, or lump Osteoporosis, unspecified osteoporosis type, unspecified pathological fracture presence Primary insomnia Persistent disorder of initiating or maintaining sleep Chronic pain syndrome- Primary Linear scleroderma Circumscribed scleroderma Primary hypertension Unspecified essential hypertension Osteopetrosis Osteoporosis, unspecified osteoporosis type, unspecified pathological fracture presence Chronic pain syndrome- Primary Insomnia, unspecified type Linear scleroderma Circumscribed scleroderma Primary hypertension Unspecified essential hypertension Chronic pain syndrome- Primary Insomnia, unspecified type Linear scleroderma Circumscribed scleroderma Primary hypertension Unspecified essential hypertension Osteoporosis, unspecified osteoporosis type, unspecified pathological fracture presence Other osteoarthritis of spine, lumbar region Hypercholesterolemia Pure hypercholesterolemia Chronic pain syndrome- Primary Chronic midline thoracic back pain Primary hypertension Unspecified essential hypertension Irritable bowel syndrome with both constipation and diarrhea Linear scleroderma Circumscribed scleroderma Primary insomnia Persistent disorder of initiating or maintaining sleep Encounter for screening mammogram for malignant neoplasm of breast Osteoporosis, unspecified osteoporosis type, unspecified pathological fracture presence Chronic pain syndrome- Primary Arthritis Unspecified arthropathy, site unspecified Influenza vaccine needed Linear scleroderma Circumscribed scleroderma Primary hypertension Unspecified essential hypertension Chronic pain syndrome- Primary Bulging lumbar disc Yeast dermatitis Chronic right-sided low back pain without sciatica Mass on back Localized superficial swelling, mass, or lump [facility] Diagnosis Insomnia, unspecified type- Primary 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 Chronic pain syndrome Primary hypertension- Primary Unspecified essential hypertension Chronic pain syndrome 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 Immunization due Chronic pain syndrome- Primary Irritation of left eye Primary hypertension Unspecified essential hypertension Chronic pain syndrome- Primary Insomnia, unspecified type 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 Primary hypertension Unspecified essential hypertension Colon cancer screening Special screening for malignant neoplasms, colon Routine general medical examination at health care facility- Primary Routine general medical examination at a health care facility Primary hypertension Unspecified essential hypertension Screening for deficiency anemia Screening for other and unspecified deficiency anemia Hypercholesterolemia Pure hypercholesterolemia Screening for lung cancer Encounter for screening mammogram for malignant neoplasm of breast Encounter for vitamin deficiency screening 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 Insomnia, unspecified type Acute bacterial conjunctivitis of right eye Irritable bowel syndrome, unspecified type Recurrent major depressive disorder, in full remission (HCC) Osteopetrosis Osteoporosis, unspecified osteoporosis type, unspecified pathological fracture presence Tobacco use disorder Chronic midline thoracic back pain- Primary Chronic pain syndrome Linear scleroderma Circumscribed scleroderma Insomnia, unspecified type Chronic pain syndrome- Primary Acute right-sided low back pain without sciatica Skin pimple Chronic pain of both upper extremities Mass on back- Primary Localized superficial swelling, mass, or lump Chronic midline thoracic back pain Systemic sclerosis (HCC) Systemic sclerosis Chronic pain syndrome Insomnia, unspecified type Spondylosis of lumbar spine Bulging lumbar disc- Primary Leg length discrepancy Unequal leg length (acquired) Other osteoarthritis of spine, lumbar region Primary hypertension Unspecified essential hypertension Chronic pain syndrome Mass on back Localized superficial swelling, mass, or lump Osteoporosis, unspecified osteoporosis type, unspecified pathological fracture presence Primary insomnia Persistent disorder of initiating or maintaining sleep Chronic pain syndrome- Primary Linear scleroderma Circumscribed scleroderma Primary hypertension Unspecified essential hypertension Osteopetrosis Osteoporosis, unspecified osteoporosis type, unspecified pathological fracture presence Chronic pain syndrome- Primary Insomnia, unspecified type Linear scleroderma Circumscribed scleroderma Primary hypertension Unspecified essential hypertension Chronic pain syndrome- Primary Insomnia, unspecified type Linear scleroderma Circumscribed scleroderma Primary hypertension Unspecified essential hypertension Osteoporosis, unspecified osteoporosis type, unspecified pathological fracture presence Other osteoarthritis of spine, lumbar region Hypercholesterolemia Pure hypercholesterolemia Chronic pain syndrome- Primary Chronic midline thoracic back pain Primary hypertension Unspecified essential hypertension Irritable bowel syndrome with both constipation and diarrhea Linear scleroderma Circumscribed scleroderma Primary insomnia Persistent disorder of initiating or maintaining sleep Encounter for screening mammogram for malignant neoplasm of breast Osteoporosis, unspecified osteoporosis type, unspecified pathological fracture presence Chronic pain syndrome- Primary Arthritis Unspecified arthropathy, site unspecified Influenza vaccine needed Linear scleroderma Circumscribed scleroderma Primary hypertension Unspecified essential hypertension Chronic pain syndrome- Primary Bulging lumbar disc Yeast dermatitis Chronic right-sided low back pain without sciatica Mass on back Localized superficial swelling, mass, or lump Chronic midline thoracic back pain Insomnia, unspecified type [facility] Diagnosis Insomnia, unspecified type- Primary 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 Chronic pain syndrome Primary hypertension- Primary Unspecified essential hypertension Chronic pain syndrome 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 Immunization due Chronic pain syndrome- Primary Irritation of left eye Primary hypertension Unspecified essential hypertension Chronic pain syndrome- Primary Insomnia, unspecified type 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 Primary hypertension Unspecified essential hypertension Colon cancer screening Special screening for malignant neoplasms, colon Routine general medical examination at health care facility- Primary Routine general medical examination at a health care facility Primary hypertension Unspecified essential hypertension Screening for deficiency anemia Screening for other and unspecified deficiency anemia Hypercholesterolemia Pure hypercholesterolemia Screening for lung cancer Encounter for screening mammogram for malignant neoplasm of breast Encounter for vitamin deficiency screening 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 Insomnia, unspecified type Acute bacterial conjunctivitis of right eye Irritable bowel syndrome, unspecified type Recurrent major depressive disorder, in full remission (HCC) Osteopetrosis Osteoporosis, unspecified osteoporosis type, unspecified pathological fracture presence Tobacco use disorder Chronic midline thoracic back pain- Primary Chronic pain syndrome Linear scleroderma Circumscribed scleroderma Insomnia, unspecified type Chronic pain syndrome- Primary Acute right-sided low back pain without sciatica Skin pimple Chronic pain of both upper extremities Mass on back- Primary Localized superficial swelling, mass, or lump Chronic midline thoracic back pain Systemic sclerosis (HCC) Systemic sclerosis Chronic pain syndrome Insomnia, unspecified type Spondylosis of lumbar spine Bulging lumbar disc- Primary Leg length discrepancy Unequal leg length (acquired) Other osteoarthritis of spine, lumbar region Primary hypertension Unspecified essential hypertension Chronic pain syndrome Mass on back Localized superficial swelling, mass, or lump Osteoporosis, unspecified osteoporosis type, unspecified pathological fracture presence Primary insomnia Persistent disorder of initiating or maintaining sleep Chronic pain syndrome- Primary Linear scleroderma Circumscribed scleroderma Primary hypertension Unspecified essential hypertension Osteopetrosis Osteoporosis, unspecified osteoporosis type, unspecified pathological fracture presence Chronic pain syndrome- Primary Insomnia, unspecified type Linear scleroderma Circumscribed scleroderma Primary hypertension Unspecified essential hypertension Chronic pain syndrome- Primary Insomnia, unspecified type Linear scleroderma Circumscribed scleroderma Primary hypertension Unspecified essential hypertension Osteoporosis, unspecified osteoporosis type, unspecified pathological fracture presence Other osteoarthritis of spine, lumbar region Hypercholesterolemia Pure hypercholesterolemia Chronic pain syndrome- Primary Chronic midline thoracic back pain Primary hypertension Unspecified essential hypertension Irritable bowel syndrome with both constipation and diarrhea Linear scleroderma Circumscribed scleroderma Primary insomnia Persistent disorder of initiating or maintaining sleep Encounter for screening mammogram for malignant neoplasm of breast Osteoporosis, unspecified osteoporosis type, unspecified pathological fracture presence Chronic pain syndrome- Primary Arthritis Unspecified arthropathy, site unspecified Influenza vaccine needed Linear scleroderma Circumscribed scleroderma Primary hypertension Unspecified essential hypertension Chronic pain syndrome- Primary Bulging lumbar disc Yeast dermatitis Chronic right-sided low back pain without sciatica Mass on back Localized superficial swelling, mass, or lump Routine general medical examination at health care facility- Primary Routine general medical examination at a health care facility Primary hypertension Unspecified essential hypertension Systemic sclerosis (HCC) Systemic sclerosis Osteopetrosis Hypercholesterolemia Pure hypercholesterolemia Linear scleroderma Circumscribed scleroderma Chronic pain syndrome Vitamin D deficiency Colon cancer screening Special screening for malignant neoplasms, colon Screening for deficiency anemia Screening for other and unspecified deficiency anemia Uncomplicated opioid dependence (HCC) Encounter for screening mammogram for malignant neoplasm of breast Abnormal mammography Abnormal mammogram, unspecified Chronic midline thoracic back pain Chronic right-sided low back pain without sciatica Irritable bowel syndrome with both constipation and diarrhea Primary insomnia Persistent disorder of initiating or maintaining sleep [facility] Diagnosis Insomnia, unspecified type- Primary 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 Chronic pain syndrome Primary hypertension- Primary Unspecified essential hypertension Chronic pain syndrome 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 Immunization due Chronic pain syndrome- Primary Irritation of left eye Primary hypertension Unspecified essential hypertension Chronic pain syndrome- Primary Insomnia, unspecified type 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 Primary hypertension Unspecified essential hypertension Colon cancer screening Special screening for malignant neoplasms, colon Routine general medical examination at health care facility- Primary Routine general medical examination at a health care facility Primary hypertension Unspecified essential hypertension Screening for deficiency anemia Screening for other and unspecified deficiency anemia Hypercholesterolemia Pure hypercholesterolemia Screening for lung cancer Encounter for screening mammogram for malignant neoplasm of breast Encounter for vitamin deficiency screening 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 Insomnia, unspecified type Acute bacterial conjunctivitis of right eye Irritable bowel syndrome, unspecified type Recurrent major depressive disorder, in full remission (HCC) Osteopetrosis Osteoporosis, unspecified osteoporosis type, unspecified pathological fracture presence Tobacco use disorder Chronic midline thoracic back pain- Primary Chronic pain syndrome Linear scleroderma Circumscribed scleroderma Insomnia, unspecified type Chronic pain syndrome- Primary Acute right-sided low back pain without sciatica Skin pimple Chronic pain of both upper extremities Mass on back- Primary Localized superficial swelling, mass, or lump Chronic midline thoracic back pain Systemic sclerosis (HCC) Systemic sclerosis Chronic pain syndrome Insomnia, unspecified type Spondylosis of lumbar spine Bulging lumbar disc- Primary Leg length discrepancy Unequal leg length (acquired) Other osteoarthritis of spine, lumbar region Primary hypertension Unspecified essential hypertension Chronic pain syndrome Mass on back Localized superficial swelling, mass, or lump Osteoporosis, unspecified osteoporosis type, unspecified pathological fracture presence Primary insomnia Persistent disorder of initiating or maintaining sleep Chronic pain syndrome- Primary Linear scleroderma Circumscribed scleroderma Primary hypertension Unspecified essential hypertension Osteopetrosis Osteoporosis, unspecified osteoporosis type, unspecified pathological fracture presence Chronic pain syndrome- Primary Insomnia, unspecified type Linear scleroderma Circumscribed scleroderma Primary hypertension Unspecified essential hypertension Chronic pain syndrome- Primary Insomnia, unspecified type Linear scleroderma Circumscribed scleroderma Primary hypertension Unspecified essential hypertension Osteoporosis, unspecified osteoporosis type, unspecified pathological fracture presence Other osteoarthritis of spine, lumbar region Hypercholesterolemia Pure hypercholesterolemia Chronic pain syndrome- Primary Chronic midline thoracic back pain Primary hypertension Unspecified essential hypertension Irritable bowel syndrome with both constipation and diarrhea Linear scleroderma Circumscribed scleroderma Primary insomnia Persistent disorder of initiating or maintaining sleep Encounter for screening mammogram for malignant neoplasm of breast Osteoporosis, unspecified osteoporosis type, unspecified pathological fracture presence Chronic pain syndrome- Primary Arthritis Unspecified arthropathy, site unspecified Influenza vaccine needed Linear scleroderma Circumscribed scleroderma Primary hypertension Unspecified essential hypertension Chronic pain syndrome- Primary Bulging lumbar disc Yeast dermatitis Chronic right-sided low back pain without sciatica Mass on back Localized superficial swelling, mass, or lump Routine general medical examination at health care facility- Primary Routine general medical examination at a health care facility Primary hypertension Unspecified essential hypertension Systemic sclerosis (HCC) Systemic sclerosis Osteopetrosis Hypercholesterolemia Pure hypercholesterolemia Linear scleroderma Circumscribed scleroderma Chronic pain syndrome Vitamin D deficiency Colon cancer screening Special screening for malignant neoplasms, colon Screening for deficiency anemia Screening for other and unspecified deficiency anemia Uncomplicated opioid dependence (HCC) Encounter for screening mammogram for malignant neoplasm of breast Abnormal mammography Abnormal mammogram, unspecified Chronic midline thoracic back pain Chronic right-sided low back pain without sciatica Irritable bowel syndrome with both constipation and diarrhea Primary insomnia Persistent disorder of initiating or maintaining sleep Hypercholesterolemia Pure hypercholesterolemia [facility]* Diagnosis Insomnia, unspecified type- Primary 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 Chronic pain syndrome Primary hypertension- Primary Unspecified essential hypertension Chronic pain syndrome 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 Immunization due Chronic pain syndrome- Primary Irritation of left eye Primary hypertension Unspecified essential hypertension Chronic pain syndrome- Primary Insomnia, unspecified type 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 Primary hypertension Unspecified essential hypertension Colon cancer screening Special screening for malignant neoplasms, colon Routine general medical examination at health care facility- Primary Routine general medical examination at a health care facility Primary hypertension Unspecified essential hypertension Screening for deficiency anemia Screening for other and unspecified deficiency anemia Hypercholesterolemia Pure hypercholesterolemia Screening for lung cancer Encounter for screening mammogram for malignant neoplasm of breast Encounter for vitamin deficiency screening 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 Insomnia, unspecified type Acute bacterial conjunctivitis of right eye Irritable bowel syndrome, unspecified type Recurrent major depressive disorder, in full remission (HCC) Osteopetrosis Osteoporosis, unspecified osteoporosis type, unspecified pathological fracture presence Tobacco use disorder Chronic midline thoracic back pain- Primary Chronic pain syndrome Linear scleroderma Circumscribed scleroderma Insomnia, unspecified type Chronic pain syndrome- Primary Acute right-sided low back pain without sciatica Skin pimple Chronic pain of both upper extremities Mass on back- Primary Localized superficial swelling, mass, or lump Chronic midline thoracic back pain Systemic sclerosis (HCC) Systemic sclerosis Chronic pain syndrome Insomnia, unspecified type Spondylosis of lumbar spine Bulging lumbar disc- Primary Leg length discrepancy Unequal leg length (acquired) Other osteoarthritis of spine, lumbar region Primary hypertension Unspecified essential hypertension Chronic pain syndrome Mass on back Localized superficial swelling, mass, or lump Osteoporosis, unspecified osteoporosis type, unspecified pathological fracture presence Primary insomnia Persistent disorder of initiating or maintaining sleep Chronic pain syndrome- Primary Linear scleroderma Circumscribed scleroderma Primary hypertension Unspecified essential hypertension Osteopetrosis Osteoporosis, unspecified osteoporosis type, unspecified pathological fracture presence Chronic pain syndrome- Primary Insomnia, unspecified type Linear scleroderma Circumscribed scleroderma Primary hypertension Unspecified essential hypertension Chronic pain syndrome- Primary Insomnia, unspecified type Linear scleroderma Circumscribed scleroderma Primary hypertension Unspecified essential hypertension Osteoporosis, unspecified osteoporosis type, unspecified pathological fracture presence Other osteoarthritis of spine, lumbar region Hypercholesterolemia Pure hypercholesterolemia Chronic pain syndrome- Primary Chronic midline thoracic back pain Primary hypertension Unspecified essential hypertension Irritable bowel syndrome with both constipation and diarrhea Linear scleroderma Circumscribed scleroderma Primary insomnia Persistent disorder of initiating or maintaining sleep Encounter for screening mammogram for malignant neoplasm of breast Osteoporosis, unspecified osteoporosis type, unspecified pathological fracture presence Chronic pain syndrome- Primary Arthritis Unspecified arthropathy, site unspecified Influenza vaccine needed Linear scleroderma Circumscribed scleroderma Primary hypertension Unspecified essential hypertension Chronic pain syndrome- Primary Bulging lumbar disc Yeast dermatitis Chronic right-sided low back pain without sciatica Mass on back Localized superficial swelling, mass, or lump Routine general medical examination at health care facility- Primary Routine general medical examination at a health care facility Primary hypertension Unspecified essential hypertension Systemic sclerosis (HCC) Systemic sclerosis Osteopetrosis Hypercholesterolemia Pure hypercholesterolemia Linear scleroderma Circumscribed scleroderma Chronic pain syndrome Vitamin D deficiency Colon cancer screening Special screening for malignant neoplasms, colon Screening for deficiency anemia Screening for other and unspecified deficiency anemia Uncomplicated opioid dependence (HCC) Encounter for screening mammogram for malignant neoplasm of breast Abnormal mammography Abnormal mammogram, unspecified Chronic midline thoracic back pain Chronic right-sided low back pain without sciatica Irritable bowel syndrome with both constipation and diarrhea Primary insomnia Persistent disorder of initiating or maintaining sleep Insomnia, unspecified type [facility]* Diagnosis Insomnia, unspecified type- Primary 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 Chronic pain syndrome Primary hypertension- Primary Unspecified essential hypertension Chronic pain syndrome 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 Immunization due Chronic pain syndrome- Primary Irritation of left eye Primary hypertension Unspecified essential hypertension Chronic pain syndrome- Primary Insomnia, unspecified type 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 Primary hypertension Unspecified essential hypertension Colon cancer screening Special screening for malignant neoplasms, colon Routine general medical examination at health care facility- Primary Routine general medical examination at a health care facility Primary hypertension Unspecified essential hypertension Screening for deficiency anemia Screening for other and unspecified deficiency anemia Hypercholesterolemia Pure hypercholesterolemia Screening for lung cancer Encounter for screening mammogram for malignant neoplasm of breast Encounter for vitamin deficiency screening 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 Insomnia, unspecified type Acute bacterial conjunctivitis of right eye Irritable bowel syndrome, unspecified type Recurrent major depressive disorder, in full remission (HCC) Osteopetrosis Osteoporosis, unspecified osteoporosis type, unspecified pathological fracture presence Tobacco use disorder Chronic midline thoracic back pain- Primary Chronic pain syndrome Linear scleroderma Circumscribed scleroderma Insomnia, unspecified type Chronic pain syndrome- Primary Acute right-sided low back pain without sciatica Skin pimple Chronic pain of both upper extremities Mass on back- Primary Localized superficial swelling, mass, or lump Chronic midline thoracic back pain Systemic sclerosis (HCC) Systemic sclerosis Chronic pain syndrome Insomnia, unspecified type Spondylosis of lumbar spine Bulging lumbar disc- Primary Leg length discrepancy Unequal leg length (acquired) Other osteoarthritis of spine, lumbar region Primary hypertension Unspecified essential hypertension Chronic pain syndrome Mass on back Localized superficial swelling, mass, or lump Osteoporosis, unspecified osteoporosis type, unspecified pathological fracture presence Primary insomnia Persistent disorder of initiating or maintaining sleep Chronic pain syndrome- Primary Linear scleroderma Circumscribed scleroderma Primary hypertension Unspecified essential hypertension Osteopetrosis Osteoporosis, unspecified osteoporosis type, unspecified pathological fracture presence Chronic pain syndrome- Primary Insomnia, unspecified type Linear scleroderma Circumscribed scleroderma Primary hypertension Unspecified essential hypertension Chronic pain syndrome- Primary Insomnia, unspecified type Linear scleroderma Circumscribed scleroderma Primary hypertension Unspecified essential hypertension Osteoporosis, unspecified osteoporosis type, unspecified pathological fracture presence Other osteoarthritis of spine, lumbar region Hypercholesterolemia Pure hypercholesterolemia Chronic pain syndrome- Primary Chronic midline thoracic back pain Primary hypertension Unspecified essential hypertension Irritable bowel syndrome with both constipation and diarrhea Linear scleroderma Circumscribed scleroderma Primary insomnia Persistent disorder of initiating or maintaining sleep Encounter for screening mammogram for malignant neoplasm of breast Osteoporosis, unspecified osteoporosis type, unspecified pathological fracture presence Chronic pain syndrome- Primary Arthritis Unspecified arthropathy, site unspecified Influenza vaccine needed Linear scleroderma Circumscribed scleroderma Primary hypertension Unspecified essential hypertension Chronic pain syndrome- Primary Bulging lumbar disc Yeast dermatitis Chronic right-sided low back pain without sciatica Mass on back Localized superficial swelling, mass, or lump Routine general medical examination at health care facility- Primary Routine general medical examination at a health care facility Primary hypertension Unspecified essential hypertension Systemic sclerosis (HCC) Systemic sclerosis Osteopetrosis Hypercholesterolemia Pure hypercholesterolemia Linear scleroderma Circumscribed scleroderma Chronic pain syndrome Vitamin D deficiency Colon cancer screening Special screening for malignant neoplasms, colon Screening for deficiency anemia Screening for other and unspecified deficiency anemia Uncomplicated opioid dependence (HCC) Encounter for screening mammogram for malignant neoplasm of breast Abnormal mammography Abnormal mammogram, unspecified Chronic midline thoracic back pain Chronic right-sided low back pain without sciatica Irritable bowel syndrome with both constipation and diarrhea Primary insomnia Persistent disorder of initiating or maintaining sleep Chronic pain syndrome [facility] Diagnosis Insomnia, unspecified type- Primary 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 Chronic pain syndrome Primary hypertension- Primary Unspecified essential hypertension Chronic pain syndrome 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 Immunization due Chronic pain syndrome- Primary Irritation of left eye Primary hypertension Unspecified essential hypertension Chronic pain syndrome- Primary Insomnia, unspecified type 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 Primary hypertension Unspecified essential hypertension Colon cancer screening Special screening for malignant neoplasms, colon Routine general medical examination at health care facility- Primary Routine general medical examination at a health care facility Primary hypertension Unspecified essential hypertension Screening for deficiency anemia Screening for other and unspecified deficiency anemia Hypercholesterolemia Pure hypercholesterolemia Screening for lung cancer Encounter for screening mammogram for malignant neoplasm of breast Encounter for vitamin deficiency screening 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 Insomnia, unspecified type Acute bacterial conjunctivitis of right eye Irritable bowel syndrome, unspecified type Recurrent major depressive disorder, in full remission (HCC) Osteopetrosis Osteoporosis, unspecified osteoporosis type, unspecified pathological fracture presence Tobacco use disorder Chronic midline thoracic back pain- Primary Chronic pain syndrome Linear scleroderma Circumscribed scleroderma Insomnia, unspecified type Chronic pain syndrome- Primary Acute right-sided low back pain without sciatica Skin pimple Chronic pain of both upper extremities Mass on back- Primary Localized superficial swelling, mass, or lump Chronic midline thoracic back pain Systemic sclerosis (HCC) Systemic sclerosis Chronic pain syndrome Insomnia, unspecified type Spondylosis of lumbar spine Bulging lumbar disc- Primary Leg length discrepancy Unequal leg length (acquired) Other osteoarthritis of spine, lumbar region Primary hypertension Unspecified essential hypertension Chronic pain syndrome Mass on back Localized superficial swelling, mass, or lump Osteoporosis, unspecified osteoporosis type, unspecified pathological fracture presence Primary insomnia Persistent disorder of initiating or maintaining sleep Chronic pain syndrome- Primary Linear scleroderma Circumscribed scleroderma Primary hypertension Unspecified essential hypertension Osteopetrosis Osteoporosis, unspecified osteoporosis type, unspecified pathological fracture presence Chronic pain syndrome- Primary Insomnia, unspecified type Linear scleroderma Circumscribed scleroderma Primary hypertension Unspecified essential hypertension Chronic pain syndrome- Primary Insomnia, unspecified type Linear scleroderma Circumscribed scleroderma Primary hypertension Unspecified essential hypertension Osteoporosis, unspecified osteoporosis type, unspecified pathological fracture presence Other osteoarthritis of spine, lumbar region Hypercholesterolemia Pure hypercholesterolemia Chronic pain syndrome- Primary Chronic midline thoracic back pain Primary hypertension Unspecified essential hypertension Irritable bowel syndrome with both constipation and diarrhea Linear scleroderma Circumscribed scleroderma Primary insomnia Persistent disorder of initiating or maintaining sleep Encounter for screening mammogram for malignant neoplasm of breast Osteoporosis, unspecified osteoporosis type, unspecified pathological fracture presence Chronic pain syndrome- Primary Arthritis Unspecified arthropathy, site unspecified Influenza vaccine needed Linear scleroderma Circumscribed scleroderma Primary hypertension Unspecified essential hypertension Chronic pain syndrome- Primary Bulging lumbar disc Yeast dermatitis Chronic right-sided low back pain without sciatica Mass on back Localized superficial swelling, mass, or lump Routine general medical examination at health care facility- Primary Routine general medical examination at a health care facility Primary hypertension Unspecified essential hypertension Systemic sclerosis (HCC) Systemic sclerosis Osteopetrosis Hypercholesterolemia Pure hypercholesterolemia Linear scleroderma Circumscribed scleroderma Chronic pain syndrome Vitamin D deficiency Colon cancer screening Special screening for malignant neoplasms, colon Screening for deficiency anemia Screening for other and unspecified deficiency anemia Uncomplicated opioid dependence (HCC) Encounter for screening mammogram for malignant neoplasm of breast Abnormal mammography Abnormal mammogram, unspecified Chronic midline thoracic back pain Chronic right-sided low back pain without sciatica Irritable bowel syndrome with both constipation and diarrhea Primary insomnia Persistent disorder of initiating or maintaining sleep Gastroesophageal reflux disease without esophagitis- Primary Esophageal reflux Chronic pain syndrome [facility] Diagnosis Insomnia, unspecified type- Primary 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 Chronic pain syndrome Primary hypertension- Primary Unspecified essential hypertension Chronic pain syndrome 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 Immunization due Chronic pain syndrome- Primary Irritation of left eye Primary hypertension Unspecified essential hypertension Chronic pain syndrome- Primary Insomnia, unspecified type 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 Primary hypertension Unspecified essential hypertension Colon cancer screening Special screening for malignant neoplasms, colon Routine general medical examination at health care facility- Primary Routine general medical examination at a health care facility Primary hypertension Unspecified essential hypertension Screening for deficiency anemia Screening for other and unspecified deficiency anemia Hypercholesterolemia Pure hypercholesterolemia Screening for lung cancer Encounter for screening mammogram for malignant neoplasm of breast Encounter for vitamin deficiency screening 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 Insomnia, unspecified type Acute bacterial conjunctivitis of right eye Irritable bowel syndrome, unspecified type Recurrent major depressive disorder, in full remission (HCC) Osteopetrosis Osteoporosis, unspecified osteoporosis type, unspecified pathological fracture presence Tobacco use disorder Chronic midline thoracic back pain- Primary Chronic pain syndrome Linear scleroderma Circumscribed scleroderma Insomnia, unspecified type Chronic pain syndrome- Primary Acute right-sided low back pain without sciatica Skin pimple Chronic pain of both upper extremities Mass on back- Primary Localized superficial swelling, mass, or lump Chronic midline thoracic back pain Systemic sclerosis (HCC) Systemic sclerosis Chronic pain syndrome Insomnia, unspecified type Spondylosis of lumbar spine Bulging lumbar disc- Primary Leg length discrepancy Unequal leg length (acquired) Other osteoarthritis of spine, lumbar region Primary hypertension Unspecified essential hypertension Chronic pain syndrome Mass on back Localized superficial swelling, mass, or lump Osteoporosis, unspecified osteoporosis type, unspecified pathological fracture presence Primary insomnia Persistent disorder of initiating or maintaining sleep Chronic pain syndrome- Primary Linear scleroderma Circumscribed scleroderma Primary hypertension Unspecified essential hypertension Osteopetrosis Osteoporosis, unspecified osteoporosis type, unspecified pathological fracture presence Chronic pain syndrome- Primary Insomnia, unspecified type Linear scleroderma Circumscribed scleroderma Primary hypertension Unspecified essential hypertension Chronic pain syndrome- Primary Insomnia, unspecified type Linear scleroderma Circumscribed scleroderma Primary hypertension Unspecified essential hypertension Osteoporosis, unspecified osteoporosis type, unspecified pathological fracture presence Other osteoarthritis of spine, lumbar region Hypercholesterolemia Pure hypercholesterolemia Chronic pain syndrome- Primary Chronic midline thoracic back pain Primary hypertension Unspecified essential hypertension Irritable bowel syndrome with both constipation and diarrhea Linear scleroderma Circumscribed scleroderma Primary insomnia Persistent disorder of initiating or maintaining sleep Encounter for screening mammogram for malignant neoplasm of breast Osteoporosis, unspecified osteoporosis type, unspecified pathological fracture presence Chronic pain syndrome- Primary Arthritis Unspecified arthropathy, site unspecified Influenza vaccine needed Linear scleroderma Circumscribed scleroderma Primary hypertension Unspecified essential hypertension Chronic pain syndrome- Primary Bulging lumbar disc Yeast dermatitis Chronic right-sided low back pain without sciatica Mass on back Localized superficial swelling, mass, or lump Routine general medical examination at health care facility- Primary Routine general medical examination at a health care facility Primary hypertension Unspecified essential hypertension Systemic sclerosis (HCC) Systemic sclerosis Osteopetrosis Hypercholesterolemia Pure hypercholesterolemia Linear scleroderma Circumscribed scleroderma Chronic pain syndrome Vitamin D deficiency Colon cancer screening Special screening for malignant neoplasms, colon Screening for deficiency anemia Screening for other and unspecified deficiency anemia Uncomplicated opioid dependence (HCC) Encounter for screening mammogram for malignant neoplasm of breast Abnormal mammography Abnormal mammogram, unspecified Chronic midline thoracic back pain Chronic right-sided low back pain without sciatica Irritable bowel syndrome with both constipation and diarrhea Primary insomnia Persistent disorder of initiating or maintaining sleep Chronic pain syndrome- Primary Screening for cervical cancer Screening for malignant neoplasm of the cervix Hidradenitis Systemic sclerosis (HCC) Systemic sclerosis Uncomplicated opioid dependence (HCC) Primary insomnia Persistent disorder of initiating or maintaining sleep [facility] Diagnosis Insomnia, unspecified type- Primary 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 Chronic pain syndrome Primary hypertension- Primary Unspecified essential hypertension Chronic pain syndrome 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 Immunization due Chronic pain syndrome- Primary Irritation of left eye Primary hypertension Unspecified essential hypertension Chronic pain syndrome- Primary Insomnia, unspecified type 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 Primary hypertension Unspecified essential hypertension Colon cancer screening Special screening for malignant neoplasms, colon Routine general medical examination at health care facility- Primary Routine general medical examination at a health care facility Primary hypertension Unspecified essential hypertension Screening for deficiency anemia Screening for other and unspecified deficiency anemia Hypercholesterolemia Pure hypercholesterolemia Screening for lung cancer Encounter for screening mammogram for malignant neoplasm of breast Encounter for vitamin deficiency screening 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 Insomnia, unspecified type Acute bacterial conjunctivitis of right eye Irritable bowel syndrome, unspecified type Recurrent major depressive disorder, in full remission (HCC) Osteopetrosis Osteoporosis, unspecified osteoporosis type, unspecified pathological fracture presence Tobacco use disorder Chronic midline thoracic back pain- Primary Chronic pain syndrome Linear scleroderma Circumscribed scleroderma Insomnia, unspecified type Chronic pain syndrome- Primary Acute right-sided low back pain without sciatica Skin pimple Chronic pain of both upper extremities Mass on back- Primary Localized superficial swelling, mass, or lump Chronic midline thoracic back pain Systemic sclerosis (HCC) Systemic sclerosis Chronic pain syndrome Insomnia, unspecified type Spondylosis of lumbar spine Bulging lumbar disc- Primary Leg length discrepancy Unequal leg length (acquired) Other osteoarthritis of spine, lumbar region Primary hypertension Unspecified essential hypertension Chronic pain syndrome Mass on back Localized superficial swelling, mass, or lump Osteoporosis, unspecified osteoporosis type, unspecified pathological fracture presence Primary insomnia Persistent disorder of initiating or maintaining sleep Chronic pain syndrome- Primary Linear scleroderma Circumscribed scleroderma Primary hypertension Unspecified essential hypertension Osteopetrosis Osteoporosis, unspecified osteoporosis type, unspecified pathological fracture presence Chronic pain syndrome- Primary Insomnia, unspecified type Linear scleroderma Circumscribed scleroderma Primary hypertension Unspecified essential hypertension Chronic pain syndrome- Primary Insomnia, unspecified type Linear scleroderma Circumscribed scleroderma Primary hypertension Unspecified essential hypertension Osteoporosis, unspecified osteoporosis type, unspecified pathological fracture presence Other osteoarthritis of spine, lumbar region Hypercholesterolemia Pure hypercholesterolemia Chronic pain syndrome- Primary Chronic midline thoracic back pain Primary hypertension Unspecified essential hypertension Irritable bowel syndrome with both constipation and diarrhea Linear scleroderma Circumscribed scleroderma Primary insomnia Persistent disorder of initiating or maintaining sleep Encounter for screening mammogram for malignant neoplasm of breast Osteoporosis, unspecified osteoporosis type, unspecified pathological fracture presence Chronic pain syndrome- Primary Arthritis Unspecified arthropathy, site unspecified Influenza vaccine needed Linear scleroderma Circumscribed scleroderma Primary hypertension Unspecified essential hypertension Chronic pain syndrome- Primary Bulging lumbar disc Yeast dermatitis Chronic right-sided low back pain without sciatica Mass on back Localized superficial swelling, mass, or lump Routine general medical examination at health care facility- Primary Routine general medical examination at a health care facility Primary hypertension Unspecified essential hypertension Systemic sclerosis (HCC) Systemic sclerosis Osteopetrosis Hypercholesterolemia Pure hypercholesterolemia Linear scleroderma Circumscribed scleroderma Chronic pain syndrome Vitamin D deficiency Colon cancer screening Special screening for malignant neoplasms, colon Screening for deficiency anemia Screening for other and unspecified deficiency anemia Uncomplicated opioid dependence (HCC) Encounter for screening mammogram for malignant neoplasm of breast Abnormal mammography Abnormal mammogram, unspecified Chronic midline thoracic back pain Chronic right-sided low back pain without sciatica Irritable bowel syndrome with both constipation and diarrhea Primary insomnia Persistent disorder of initiating or maintaining sleep Chronic pain syndrome- Primary Screening for cervical cancer Screening for malignant neoplasm of the cervix Hidradenitis Systemic sclerosis (HCC) Systemic sclerosis Uncomplicated opioid dependence (HCC) Primary insomnia Persistent disorder of initiating or maintaining sleep Insomnia, unspecified type [facility] Diagnosis Insomnia, unspecified type- Primary 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 Chronic pain syndrome Primary hypertension- Primary Unspecified essential hypertension Chronic pain syndrome 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 Immunization due Chronic pain syndrome- Primary Irritation of left eye Primary hypertension Unspecified essential hypertension Chronic pain syndrome- Primary Insomnia, unspecified type 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 Primary hypertension Unspecified essential hypertension Colon cancer screening Special screening for malignant neoplasms, colon Routine general medical examination at health care facility- Primary Routine general medical examination at a health care facility Primary hypertension Unspecified essential hypertension Screening for deficiency anemia Screening for other and unspecified deficiency anemia Hypercholesterolemia Pure hypercholesterolemia Screening for lung cancer Encounter for screening mammogram for malignant neoplasm of breast Encounter for vitamin deficiency screening 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 Insomnia, unspecified type Acute bacterial conjunctivitis of right eye Irritable bowel syndrome, unspecified type Recurrent major depressive disorder, in full remission (HCC) Osteopetrosis Osteoporosis, unspecified osteoporosis type, unspecified pathological fracture presence Tobacco use disorder Chronic midline thoracic back pain- Primary Chronic pain syndrome Linear scleroderma Circumscribed scleroderma Insomnia, unspecified type Chronic pain syndrome- Primary Acute right-sided low back pain without sciatica Skin pimple Chronic pain of both upper extremities Mass on back- Primary Localized superficial swelling, mass, or lump Chronic midline thoracic back pain Systemic sclerosis (HCC) Systemic sclerosis Chronic pain syndrome Insomnia, unspecified type Spondylosis of lumbar spine Bulging lumbar disc- Primary Leg length discrepancy Unequal leg length (acquired) Other osteoarthritis of spine, lumbar region Primary hypertension Unspecified essential hypertension Chronic pain syndrome Mass on back Localized superficial swelling, mass, or lump Osteoporosis, unspecified osteoporosis type, unspecified pathological fracture presence Primary insomnia Persistent disorder of initiating or maintaining sleep Chronic pain syndrome- Primary Linear scleroderma Circumscribed scleroderma Primary hypertension Unspecified essential hypertension Osteopetrosis Osteoporosis, unspecified osteoporosis type, unspecified pathological fracture presence Chronic pain syndrome- Primary Insomnia, unspecified type Linear scleroderma Circumscribed scleroderma Primary hypertension Unspecified essential hypertension Chronic pain syndrome- Primary Insomnia, unspecified type Linear scleroderma Circumscribed scleroderma Primary hypertension Unspecified essential hypertension Osteoporosis, unspecified osteoporosis type, unspecified pathological fracture presence Other osteoarthritis of spine, lumbar region Hypercholesterolemia Pure hypercholesterolemia Chronic pain syndrome- Primary Chronic midline thoracic back pain Primary hypertension Unspecified essential hypertension Irritable bowel syndrome with both constipation and diarrhea Linear scleroderma Circumscribed scleroderma Primary insomnia Persistent disorder of initiating or maintaining sleep Encounter for screening mammogram for malignant neoplasm of breast Osteoporosis, unspecified osteoporosis type, unspecified pathological fracture presence Chronic pain syndrome- Primary Arthritis Unspecified arthropathy, site unspecified Influenza vaccine needed Linear scleroderma Circumscribed scleroderma Primary hypertension Unspecified essential hypertension Chronic pain syndrome- Primary Bulging lumbar disc Yeast dermatitis Chronic right-sided low back pain without sciatica Mass on back Localized superficial swelling, mass, or lump Routine general medical examination at health care facility- Primary Routine general medical examination at a health care facility Primary hypertension Unspecified essential hypertension Systemic sclerosis (HCC) Systemic sclerosis Osteopetrosis Hypercholesterolemia Pure hypercholesterolemia Linear scleroderma Circumscribed scleroderma Chronic pain syndrome Vitamin D deficiency Colon cancer screening Special screening for malignant neoplasms, colon Screening for deficiency anemia Screening for other and unspecified deficiency anemia Uncomplicated opioid dependence (HCC) Encounter for screening mammogram for malignant neoplasm of breast Abnormal mammography Abnormal mammogram, unspecified Chronic midline thoracic back pain Chronic right-sided low back pain without sciatica Irritable bowel syndrome with both constipation and diarrhea Primary insomnia Persistent disorder of initiating or maintaining sleep Chronic pain syndrome- Primary Screening for cervical cancer Screening for malignant neoplasm of the cervix Hidradenitis Systemic sclerosis (HCC) Systemic sclerosis Uncomplicated opioid dependence (HCC) Primary insomnia Persistent disorder of initiating or maintaining sleep Chronic pain syndrome [facility] Diagnosis Insomnia, unspecified type- Primary 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 Chronic pain syndrome Primary hypertension- Primary Unspecified essential hypertension Chronic pain syndrome 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 Immunization due Chronic pain syndrome- Primary Irritation of left eye Primary hypertension Unspecified essential hypertension Chronic pain syndrome- Primary Insomnia, unspecified type 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 Primary hypertension Unspecified essential hypertension Colon cancer screening Special screening for malignant neoplasms, colon Routine general medical examination at health care facility- Primary Routine general medical examination at a health care facility Primary hypertension Unspecified essential hypertension Screening for deficiency anemia Screening for other and unspecified deficiency anemia Hypercholesterolemia Pure hypercholesterolemia Screening for lung cancer Encounter for screening mammogram for malignant neoplasm of breast Encounter for vitamin deficiency screening 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 Insomnia, unspecified type Acute bacterial conjunctivitis of right eye Irritable bowel syndrome, unspecified type Recurrent major depressive disorder, in full remission (HCC) Osteopetrosis Osteoporosis, unspecified osteoporosis type, unspecified pathological fracture presence Tobacco use disorder Chronic midline thoracic back pain- Primary Chronic pain syndrome Linear scleroderma Circumscribed scleroderma Insomnia, unspecified type Chronic pain syndrome- Primary Acute right-sided low back pain without sciatica Skin pimple Chronic pain of both upper extremities Mass on back- Primary Localized superficial swelling, mass, or lump Chronic midline thoracic back pain Systemic sclerosis (HCC) Systemic sclerosis Chronic pain syndrome Insomnia, unspecified type Spondylosis of lumbar spine Bulging lumbar disc- Primary Leg length discrepancy Unequal leg length (acquired) Other osteoarthritis of spine, lumbar region Primary hypertension Unspecified essential hypertension Chronic pain syndrome Mass on back Localized superficial swelling, mass, or lump Osteoporosis, unspecified osteoporosis type, unspecified pathological fracture presence Primary insomnia Persistent disorder of initiating or maintaining sleep Chronic pain syndrome- Primary Linear scleroderma Circumscribed scleroderma Primary hypertension Unspecified essential hypertension Osteopetrosis Osteoporosis, unspecified osteoporosis type, unspecified pathological fracture presence Chronic pain syndrome- Primary Insomnia, unspecified type Linear scleroderma Circumscribed scleroderma Primary hypertension Unspecified essential hypertension Chronic pain syndrome- Primary Insomnia, unspecified type Linear scleroderma Circumscribed scleroderma Primary hypertension Unspecified essential hypertension Osteoporosis, unspecified osteoporosis type, unspecified pathological fracture presence Other osteoarthritis of spine, lumbar region Hypercholesterolemia Pure hypercholesterolemia Chronic pain syndrome- Primary Chronic midline thoracic back pain Primary hypertension Unspecified essential hypertension Irritable bowel syndrome with both constipation and diarrhea Linear scleroderma Circumscribed scleroderma Primary insomnia Persistent disorder of initiating or maintaining sleep Encounter for screening mammogram for malignant neoplasm of breast Osteoporosis, unspecified osteoporosis type, unspecified pathological fracture presence Chronic pain syndrome- Primary Arthritis Unspecified arthropathy, site unspecified Influenza vaccine needed Linear scleroderma Circumscribed scleroderma Primary hypertension Unspecified essential hypertension Chronic pain syndrome- Primary Bulging lumbar disc Yeast dermatitis Chronic right-sided low back pain without sciatica Mass on back Localized superficial swelling, mass, or lump Routine general medical examination at health care facility- Primary Routine general medical examination at a health care facility Primary hypertension Unspecified essential hypertension Systemic sclerosis (HCC) Systemic sclerosis Osteopetrosis Hypercholesterolemia Pure hypercholesterolemia Linear scleroderma Circumscribed scleroderma Chronic pain syndrome Vitamin D deficiency Colon cancer screening Special screening for malignant neoplasms, colon Screening for deficiency anemia Screening for other and unspecified deficiency anemia Uncomplicated opioid dependence (HCC) Encounter for screening mammogram for malignant neoplasm of breast Abnormal mammography Abnormal mammogram, unspecified Chronic midline thoracic back pain Chronic right-sided low back pain without sciatica Irritable bowel syndrome with both constipation and diarrhea Primary insomnia Persistent disorder of initiating or maintaining sleep Chronic pain syndrome- Primary Screening for cervical cancer Screening for malignant neoplasm of the cervix Hidradenitis Systemic sclerosis (HCC) Systemic sclerosis Uncomplicated opioid dependence (HCC) Primary insomnia Persistent disorder of initiating or maintaining sleep Chronic pain syndrome [facility] Diagnosis Insomnia, unspecified type- Primary 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 Chronic pain syndrome Primary hypertension- Primary Unspecified essential hypertension Chronic pain syndrome 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 Immunization due Chronic pain syndrome- Primary Irritation of left eye Primary hypertension Unspecified essential hypertension Chronic pain syndrome- Primary Insomnia, unspecified type 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 Primary hypertension Unspecified essential hypertension Colon cancer screening Special screening for malignant neoplasms, colon Routine general medical examination at health care facility- Primary Routine general medical examination at a health care facility Primary hypertension Unspecified essential hypertension Screening for deficiency anemia Screening for other and unspecified deficiency anemia Hypercholesterolemia Pure hypercholesterolemia Screening for lung cancer Encounter for screening mammogram for malignant neoplasm of breast Encounter for vitamin deficiency screening 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 Insomnia, unspecified type Acute bacterial conjunctivitis of right eye Irritable bowel syndrome, unspecified type Recurrent major depressive disorder, in full remission (HCC) Osteopetrosis Osteoporosis, unspecified osteoporosis type, unspecified pathological fracture presence Tobacco use disorder Chronic midline thoracic back pain- Primary Chronic pain syndrome Linear scleroderma Circumscribed scleroderma Insomnia, unspecified type Chronic pain syndrome- Primary Acute right-sided low back pain without sciatica Skin pimple Chronic pain of both upper extremities Mass on back- Primary Localized superficial swelling, mass, or lump Chronic midline thoracic back pain Systemic sclerosis (HCC) Systemic sclerosis Chronic pain syndrome Insomnia, unspecified type Spondylosis of lumbar spine Bulging lumbar disc- Primary Leg length discrepancy Unequal leg length (acquired) Other osteoarthritis of spine, lumbar region Primary hypertension Unspecified essential hypertension Chronic pain syndrome Mass on back Localized superficial swelling, mass, or lump Osteoporosis, unspecified osteoporosis type, unspecified pathological fracture presence Primary insomnia Persistent disorder of initiating or maintaining sleep Chronic pain syndrome- Primary Linear scleroderma Circumscribed scleroderma Primary hypertension Unspecified essential hypertension Osteopetrosis Osteoporosis, unspecified osteoporosis type, unspecified pathological fracture presence Chronic pain syndrome- Primary Insomnia, unspecified type Linear scleroderma Circumscribed scleroderma Primary hypertension Unspecified essential hypertension Chronic pain syndrome- Primary Insomnia, unspecified type Linear scleroderma Circumscribed scleroderma Primary hypertension Unspecified essential hypertension Osteoporosis, unspecified osteoporosis type, unspecified pathological fracture presence Other osteoarthritis of spine, lumbar region Hypercholesterolemia Pure hypercholesterolemia Chronic pain syndrome- Primary Chronic midline thoracic back pain Primary hypertension Unspecified essential hypertension Irritable bowel syndrome with both constipation and diarrhea Linear scleroderma Circumscribed scleroderma Primary insomnia Persistent disorder of initiating or maintaining sleep Encounter for screening mammogram for malignant neoplasm of breast Osteoporosis, unspecified osteoporosis type, unspecified pathological fracture presence Chronic pain syndrome- Primary Arthritis Unspecified arthropathy, site unspecified Influenza vaccine needed Linear scleroderma Circumscribed scleroderma Primary hypertension Unspecified essential hypertension Chronic pain syndrome- Primary Bulging lumbar disc Yeast dermatitis Chronic right-sided low back pain without sciatica Mass on back Localized superficial swelling, mass, or lump Routine general medical examination at health care facility- Primary Routine general medical examination at a health care facility Primary hypertension Unspecified essential hypertension Systemic sclerosis (HCC) Systemic sclerosis Osteopetrosis Hypercholesterolemia Pure hypercholesterolemia Linear scleroderma Circumscribed scleroderma Chronic pain syndrome Vitamin D deficiency Colon cancer screening Special screening for malignant neoplasms, colon Screening for deficiency anemia Screening for other and unspecified deficiency anemia Uncomplicated opioid dependence (HCC) Encounter for screening mammogram for malignant neoplasm of breast Abnormal mammography Abnormal mammogram, unspecified Chronic midline thoracic back pain Chronic right-sided low back pain without sciatica Irritable bowel syndrome with both constipation and diarrhea Primary insomnia Persistent disorder of initiating or maintaining sleep Chronic pain syndrome- Primary Screening for cervical cancer Screening for malignant neoplasm of the cervix Hidradenitis Systemic sclerosis (HCC) Systemic sclerosis Uncomplicated opioid dependence (HCC) Primary insomnia Persistent disorder of initiating or maintaining sleep Primary hypertension Unspecified essential hypertension [facility] Diagnosis Insomnia, unspecified type- Primary 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 Chronic pain syndrome Primary hypertension- Primary Unspecified essential hypertension Chronic pain syndrome 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 Immunization due Chronic pain syndrome- Primary Irritation of left eye Primary hypertension Unspecified essential hypertension Chronic pain syndrome- Primary Insomnia, unspecified type 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 Primary hypertension Unspecified essential hypertension Colon cancer screening Special screening for malignant neoplasms, colon Routine general medical examination at health care facility- Primary Routine general medical examination at a health care facility Primary hypertension Unspecified essential hypertension Screening for deficiency anemia Screening for other and unspecified deficiency anemia Hypercholesterolemia Pure hypercholesterolemia Screening for lung cancer Encounter for screening mammogram for malignant neoplasm of breast Encounter for vitamin deficiency screening 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 Insomnia, unspecified type Acute bacterial conjunctivitis of right eye Irritable bowel syndrome, unspecified type Recurrent major depressive disorder, in full remission (HCC) Osteopetrosis Osteoporosis, unspecified osteoporosis type, unspecified pathological fracture presence Tobacco use disorder Chronic midline thoracic back pain- Primary Chronic pain syndrome Linear scleroderma Circumscribed scleroderma Insomnia, unspecified type Chronic pain syndrome- Primary Acute right-sided low back pain without sciatica Skin pimple Chronic pain of both upper extremities Mass on back- Primary Localized superficial swelling, mass, or lump Chronic midline thoracic back pain Systemic sclerosis (HCC) Systemic sclerosis Chronic pain syndrome Insomnia, unspecified type Spondylosis of lumbar spine Bulging lumbar disc- Primary Leg length discrepancy Unequal leg length (acquired) Other osteoarthritis of spine, lumbar region Primary hypertension Unspecified essential hypertension Chronic pain syndrome Mass on back Localized superficial swelling, mass, or lump Osteoporosis, unspecified osteoporosis type, unspecified pathological fracture presence Primary insomnia Persistent disorder of initiating or maintaining sleep Chronic pain syndrome- Primary Linear scleroderma Circumscribed scleroderma Primary hypertension Unspecified essential hypertension Osteopetrosis Osteoporosis, unspecified osteoporosis type, unspecified pathological fracture presence Chronic pain syndrome- Primary Insomnia, unspecified type Linear scleroderma Circumscribed scleroderma Primary hypertension Unspecified essential hypertension Chronic pain syndrome- Primary Insomnia, unspecified type Linear scleroderma Circumscribed scleroderma Primary hypertension Unspecified essential hypertension Osteoporosis, unspecified osteoporosis type, unspecified pathological fracture presence Other osteoarthritis of spine, lumbar region Hypercholesterolemia Pure hypercholesterolemia Chronic pain syndrome- Primary Chronic midline thoracic back pain Primary hypertension Unspecified essential hypertension Irritable bowel syndrome with both constipation and diarrhea Linear scleroderma Circumscribed scleroderma Primary insomnia Persistent disorder of initiating or maintaining sleep Encounter for screening mammogram for malignant neoplasm of breast Osteoporosis, unspecified osteoporosis type, unspecified pathological fracture presence Chronic pain syndrome- Primary Arthritis Unspecified arthropathy, site unspecified Influenza vaccine needed Linear scleroderma Circumscribed scleroderma Primary hypertension Unspecified essential hypertension Chronic pain syndrome- Primary Bulging lumbar disc Yeast dermatitis Chronic right-sided low back pain without sciatica Mass on back Localized superficial swelling, mass, or lump Routine general medical examination at health care facility- Primary Routine general medical examination at a health care facility Primary hypertension Unspecified essential hypertension Systemic sclerosis (HCC) Systemic sclerosis Osteopetrosis Hypercholesterolemia Pure hypercholesterolemia Linear scleroderma Circumscribed scleroderma Chronic pain syndrome Vitamin D deficiency Colon cancer screening Special screening for malignant neoplasms, colon Screening for deficiency anemia Screening for other and unspecified deficiency anemia Uncomplicated opioid dependence (HCC) Encounter for screening mammogram for malignant neoplasm of breast Abnormal mammography Abnormal mammogram, unspecified Chronic midline thoracic back pain Chronic right-sided low back pain without sciatica Irritable bowel syndrome with both constipation and diarrhea Primary insomnia Persistent disorder of initiating or maintaining sleep Chronic pain syndrome- Primary Screening for cervical cancer Screening for malignant neoplasm of the cervix Hidradenitis Systemic sclerosis (HCC) Systemic sclerosis Uncomplicated opioid dependence (HCC) Primary insomnia Persistent disorder of initiating or maintaining sleep Insomnia, unspecified type [facility] Diagnosis Insomnia, unspecified type- Primary 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 Chronic pain syndrome Primary hypertension- Primary Unspecified essential hypertension Chronic pain syndrome 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 Immunization due Chronic pain syndrome- Primary Irritation of left eye Primary hypertension Unspecified essential hypertension Chronic pain syndrome- Primary Insomnia, unspecified type 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 Primary hypertension Unspecified essential hypertension Colon cancer screening Special screening for malignant neoplasms, colon Routine general medical examination at health care facility- Primary Routine general medical examination at a health care facility Primary hypertension Unspecified essential hypertension Screening for deficiency anemia Screening for other and unspecified deficiency anemia Hypercholesterolemia Pure hypercholesterolemia Screening for lung cancer Encounter for screening mammogram for malignant neoplasm of breast Encounter for vitamin deficiency screening 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 Insomnia, unspecified type Acute bacterial conjunctivitis of right eye Irritable bowel syndrome, unspecified type Recurrent major depressive disorder, in full remission (HCC) Osteopetrosis Osteoporosis, unspecified osteoporosis type, unspecified pathological fracture presence Tobacco use disorder Chronic midline thoracic back pain- Primary Chronic pain syndrome Linear scleroderma Circumscribed scleroderma Insomnia, unspecified type Chronic pain syndrome- Primary Acute right-sided low back pain without sciatica Skin pimple Chronic pain of both upper extremities Mass on back- Primary Localized superficial swelling, mass, or lump Chronic midline thoracic back pain Systemic sclerosis (HCC) Systemic sclerosis Chronic pain syndrome Insomnia, unspecified type Spondylosis of lumbar spine Bulging lumbar disc- Primary Leg length discrepancy Unequal leg length (acquired) Other osteoarthritis of spine, lumbar region Primary hypertension Unspecified essential hypertension Chronic pain syndrome Mass on back Localized superficial swelling, mass, or lump Osteoporosis, unspecified osteoporosis type, unspecified pathological fracture presence Primary insomnia Persistent disorder of initiating or maintaining sleep Chronic pain syndrome- Primary Linear scleroderma Circumscribed scleroderma Primary hypertension Unspecified essential hypertension Osteopetrosis Osteoporosis, unspecified osteoporosis type, unspecified pathological fracture presence Chronic pain syndrome- Primary Insomnia, unspecified type Linear scleroderma Circumscribed scleroderma Primary hypertension Unspecified essential hypertension Chronic pain syndrome- Primary Insomnia, unspecified type Linear scleroderma Circumscribed scleroderma Primary hypertension Unspecified essential hypertension Osteoporosis, unspecified osteoporosis type, unspecified pathological fracture presence Other osteoarthritis of spine, lumbar region Hypercholesterolemia Pure hypercholesterolemia Chronic pain syndrome- Primary Chronic midline thoracic back pain Primary hypertension Unspecified essential hypertension Irritable bowel syndrome with both constipation and diarrhea Linear scleroderma Circumscribed scleroderma Primary insomnia Persistent disorder of initiating or maintaining sleep Encounter for screening mammogram for malignant neoplasm of breast Osteoporosis, unspecified osteoporosis type, unspecified pathological fracture presence Chronic pain syndrome- Primary Arthritis Unspecified arthropathy, site unspecified Influenza vaccine needed Linear scleroderma Circumscribed scleroderma Primary hypertension Unspecified essential hypertension Chronic pain syndrome- Primary Bulging lumbar disc Yeast dermatitis Chronic right-sided low back pain without sciatica Mass on back Localized superficial swelling, mass, or lump Routine general medical examination at health care facility- Primary Routine general medical examination at a health care facility Primary hypertension Unspecified essential hypertension Systemic sclerosis (HCC) Systemic sclerosis Osteopetrosis Hypercholesterolemia Pure hypercholesterolemia Linear scleroderma Circumscribed scleroderma Chronic pain syndrome Vitamin D deficiency Colon cancer screening Special screening for malignant neoplasms, colon Screening for deficiency anemia Screening for other and unspecified deficiency anemia Uncomplicated opioid dependence (HCC) Encounter for screening mammogram for malignant neoplasm of breast Abnormal mammography Abnormal mammogram, unspecified Chronic midline thoracic back pain Chronic right-sided low back pain without sciatica Irritable bowel syndrome with both constipation and diarrhea Primary insomnia Persistent disorder of initiating or maintaining sleep Chronic pain syndrome- Primary Screening for cervical cancer Screening for malignant neoplasm of the cervix Hidradenitis Systemic sclerosis (HCC) Systemic sclerosis Uncomplicated opioid dependence (HCC) Primary insomnia Persistent disorder of initiating or maintaining sleep Chronic right-sided low back pain without sciatica- Primary Osteopetrosis Osteoporosis, unspecified osteoporosis type, unspecified pathological fracture presence Insomnia, unspecified type Unsatisfactory cervical Papanicolaou smear Chronic pain syndrome [facility] Diagnosis Insomnia, unspecified type- Primary 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 Chronic pain syndrome Primary hypertension- Primary Unspecified essential hypertension Chronic pain syndrome 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 Immunization due Chronic pain syndrome- Primary Irritation of left eye Primary hypertension Unspecified essential hypertension Chronic pain syndrome- Primary Insomnia, unspecified type 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 Primary hypertension Unspecified essential hypertension Colon cancer screening Special screening for malignant neoplasms, colon Routine general medical examination at health care facility- Primary Routine general medical examination at a health care facility Primary hypertension Unspecified essential hypertension Screening for deficiency anemia Screening for other and unspecified deficiency anemia Hypercholesterolemia Pure hypercholesterolemia Screening for lung cancer Encounter for screening mammogram for malignant neoplasm of breast Encounter for vitamin deficiency screening 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 Insomnia, unspecified type Acute bacterial conjunctivitis of right eye Irritable bowel syndrome, unspecified type Recurrent major depressive disorder, in full remission (HCC) Osteopetrosis Osteoporosis, unspecified osteoporosis type, unspecified pathological fracture presence Tobacco use disorder Chronic midline thoracic back pain- Primary Chronic pain syndrome Linear scleroderma Circumscribed scleroderma Insomnia, unspecified type Chronic pain syndrome- Primary Acute right-sided low back pain without sciatica Skin pimple Chronic pain of both upper extremities Mass on back- Primary Localized superficial swelling, mass, or lump Chronic midline thoracic back pain Systemic sclerosis (HCC) Systemic sclerosis Chronic pain syndrome Insomnia, unspecified type Spondylosis of lumbar spine Bulging lumbar disc- Primary Leg length discrepancy Unequal leg length (acquired) Other osteoarthritis of spine, lumbar region Primary hypertension Unspecified essential hypertension Chronic pain syndrome Mass on back Localized superficial swelling, mass, or lump Osteoporosis, unspecified osteoporosis type, unspecified pathological fracture presence Primary insomnia Persistent disorder of initiating or maintaining sleep Chronic pain syndrome- Primary Linear scleroderma Circumscribed scleroderma Primary hypertension Unspecified essential hypertension Osteopetrosis Osteoporosis, unspecified osteoporosis type, unspecified pathological fracture presence Chronic pain syndrome- Primary Insomnia, unspecified type Linear scleroderma Circumscribed scleroderma Primary hypertension Unspecified essential hypertension Chronic pain syndrome- Primary Insomnia, unspecified type Linear scleroderma Circumscribed scleroderma Primary hypertension Unspecified essential hypertension Osteoporosis, unspecified osteoporosis type, unspecified pathological fracture presence Other osteoarthritis of spine, lumbar region Hypercholesterolemia Pure hypercholesterolemia Chronic pain syndrome- Primary Chronic midline thoracic back pain Primary hypertension Unspecified essential hypertension Irritable bowel syndrome with both constipation and diarrhea Linear scleroderma Circumscribed scleroderma Primary insomnia Persistent disorder of initiating or maintaining sleep Encounter for screening mammogram for malignant neoplasm of breast Osteoporosis, unspecified osteoporosis type, unspecified pathological fracture presence Chronic pain syndrome- Primary Arthritis Unspecified arthropathy, site unspecified Influenza vaccine needed Linear scleroderma Circumscribed scleroderma Primary hypertension Unspecified essential hypertension Chronic pain syndrome- Primary Bulging lumbar disc Yeast dermatitis Chronic right-sided low back pain without sciatica Mass on back Localized superficial swelling, mass, or lump Routine general medical examination at health care facility- Primary Routine general medical examination at a health care facility Primary hypertension Unspecified essential hypertension Systemic sclerosis (HCC) Systemic sclerosis Osteopetrosis Hypercholesterolemia Pure hypercholesterolemia Linear scleroderma Circumscribed scleroderma Chronic pain syndrome Vitamin D deficiency Colon cancer screening Special screening for malignant neoplasms, colon Screening for deficiency anemia Screening for other and unspecified deficiency anemia Uncomplicated opioid dependence (HCC) Encounter for screening mammogram for malignant neoplasm of breast Abnormal mammography Abnormal mammogram, unspecified Chronic midline thoracic back pain Chronic right-sided low back pain without sciatica Irritable bowel syndrome with both constipation and diarrhea Primary insomnia Persistent disorder of initiating or maintaining sleep Chronic pain syndrome- Primary Screening for cervical cancer Screening for malignant neoplasm of the cervix Hidradenitis Systemic sclerosis (HCC) Systemic sclerosis Uncomplicated opioid dependence (HCC) Primary insomnia Persistent disorder of initiating or maintaining sleep Chronic right-sided low back pain without sciatica- Primary Osteopetrosis Osteoporosis, unspecified osteoporosis type, unspecified pathological fracture presence Insomnia, unspecified type Unsatisfactory cervical Papanicolaou smear Chronic pain syndrome Impacted cerumen of left ear Impacted cerumen [facility] Diagnosis Insomnia, unspecified type- Primary 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 Chronic pain syndrome Primary hypertension- Primary Unspecified essential hypertension Chronic pain syndrome 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 Immunization due Chronic pain syndrome- Primary Irritation of left eye Primary hypertension Unspecified essential hypertension Chronic pain syndrome- Primary Insomnia, unspecified type 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 Primary hypertension Unspecified essential hypertension Colon cancer screening Special screening for malignant neoplasms, colon Routine general medical examination at health care facility- Primary Routine general medical examination at a health care facility Primary hypertension Unspecified essential hypertension Screening for deficiency anemia Screening for other and unspecified deficiency anemia Hypercholesterolemia Pure hypercholesterolemia Screening for lung cancer Encounter for screening mammogram for malignant neoplasm of breast Encounter for vitamin deficiency screening 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 Insomnia, unspecified type Acute bacterial conjunctivitis of right eye Irritable bowel syndrome, unspecified type Recurrent major depressive disorder, in full remission (HCC) Osteopetrosis Osteoporosis, unspecified osteoporosis type, unspecified pathological fracture presence Tobacco use disorder Chronic midline thoracic back pain- Primary Chronic pain syndrome Linear scleroderma Circumscribed scleroderma Insomnia, unspecified type Chronic pain syndrome- Primary Acute right-sided low back pain without sciatica Skin pimple Chronic pain of both upper extremities Mass on back- Primary Localized superficial swelling, mass, or lump Chronic midline thoracic back pain Systemic sclerosis (HCC) Systemic sclerosis Chronic pain syndrome Insomnia, unspecified type Spondylosis of lumbar spine Bulging lumbar disc- Primary Leg length discrepancy Unequal leg length (acquired) Other osteoarthritis of spine, lumbar region Primary hypertension Unspecified essential hypertension Chronic pain syndrome Mass on back Localized superficial swelling, mass, or lump Osteoporosis, unspecified osteoporosis type, unspecified pathological fracture presence Primary insomnia Persistent disorder of initiating or maintaining sleep Chronic pain syndrome- Primary Linear scleroderma Circumscribed scleroderma Primary hypertension Unspecified essential hypertension Osteopetrosis Osteoporosis, unspecified osteoporosis type, unspecified pathological fracture presence Chronic pain syndrome- Primary Insomnia, unspecified type Linear scleroderma Circumscribed scleroderma Primary hypertension Unspecified essential hypertension Chronic pain syndrome- Primary Insomnia, unspecified type Linear scleroderma Circumscribed scleroderma Primary hypertension Unspecified essential hypertension Osteoporosis, unspecified osteoporosis type, unspecified pathological fracture presence Other osteoarthritis of spine, lumbar region Hypercholesterolemia Pure hypercholesterolemia Chronic pain syndrome- Primary Chronic midline thoracic back pain Primary hypertension Unspecified essential hypertension Irritable bowel syndrome with both constipation and diarrhea Linear scleroderma Circumscribed scleroderma Primary insomnia Persistent disorder of initiating or maintaining sleep Encounter for screening mammogram for malignant neoplasm of breast Osteoporosis, unspecified osteoporosis type, unspecified pathological fracture presence Chronic pain syndrome- Primary Arthritis Unspecified arthropathy, site unspecified Influenza vaccine needed Linear scleroderma Circumscribed scleroderma Primary hypertension Unspecified essential hypertension Chronic pain syndrome- Primary Bulging lumbar disc Yeast dermatitis Chronic right-sided low back pain without sciatica Mass on back Localized superficial swelling, mass, or lump Routine general medical examination at health care facility- Primary Routine general medical examination at a health care facility Primary hypertension Unspecified essential hypertension Systemic sclerosis (HCC) Systemic sclerosis Osteopetrosis Hypercholesterolemia Pure hypercholesterolemia Linear scleroderma Circumscribed scleroderma Chronic pain syndrome Vitamin D deficiency Colon cancer screening Special screening for malignant neoplasms, colon Screening for deficiency anemia Screening for other and unspecified deficiency anemia Uncomplicated opioid dependence (HCC) Encounter for screening mammogram for malignant neoplasm of breast Abnormal mammography Abnormal mammogram, unspecified Chronic midline thoracic back pain Chronic right-sided low back pain without sciatica Irritable bowel syndrome with both constipation and diarrhea Primary insomnia Persistent disorder of initiating or maintaining sleep Chronic pain syndrome- Primary Screening for cervical cancer Screening for malignant neoplasm of the cervix Hidradenitis Systemic sclerosis (HCC) Systemic sclerosis Uncomplicated opioid dependence (HCC) Primary insomnia Persistent disorder of initiating or maintaining sleep Chronic right-sided low back pain without sciatica- Primary Osteopetrosis Osteoporosis, unspecified osteoporosis type, unspecified pathological fracture presence Insomnia, unspecified type Unsatisfactory cervical Papanicolaou smear Chronic pain syndrome Impacted cerumen of left ear Impacted cerumen Chronic right-sided low back pain without sciatica [facility]* Diagnosis Insomnia, unspecified type- Primary 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 Chronic pain syndrome Primary hypertension- Primary Unspecified essential hypertension Chronic pain syndrome 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 Immunization due Chronic pain syndrome- Primary Irritation of left eye Primary hypertension Unspecified essential hypertension Chronic pain syndrome- Primary Insomnia, unspecified type 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 Primary hypertension Unspecified essential hypertension Colon cancer screening Special screening for malignant neoplasms, colon Routine general medical examination at health care facility- Primary Routine general medical examination at a health care facility Primary hypertension Unspecified essential hypertension Screening for deficiency anemia Screening for other and unspecified deficiency anemia Hypercholesterolemia Pure hypercholesterolemia Screening for lung cancer Encounter for screening mammogram for malignant neoplasm of breast Encounter for vitamin deficiency screening 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 Insomnia, unspecified type Acute bacterial conjunctivitis of right eye Irritable bowel syndrome, unspecified type Recurrent major depressive disorder, in full remission (HCC) Osteopetrosis Osteoporosis, unspecified osteoporosis type, unspecified pathological fracture presence Tobacco use disorder Chronic midline thoracic back pain- Primary Chronic pain syndrome Linear scleroderma Circumscribed scleroderma Insomnia, unspecified type Chronic pain syndrome- Primary Acute right-sided low back pain without sciatica Skin pimple Chronic pain of both upper extremities Mass on back- Primary Localized superficial swelling, mass, or lump Chronic midline thoracic back pain Systemic sclerosis (HCC) Systemic sclerosis Chronic pain syndrome Insomnia, unspecified type Spondylosis of lumbar spine Bulging lumbar disc- Primary Leg length discrepancy Unequal leg length (acquired) Other osteoarthritis of spine, lumbar region Primary hypertension Unspecified essential hypertension Chronic pain syndrome Mass on back Localized superficial swelling, mass, or lump Osteoporosis, unspecified osteoporosis type, unspecified pathological fracture presence Primary insomnia Persistent disorder of initiating or maintaining sleep Chronic pain syndrome- Primary Linear scleroderma Circumscribed scleroderma Primary hypertension Unspecified essential hypertension Osteopetrosis Osteoporosis, unspecified osteoporosis type, unspecified pathological fracture presence Chronic pain syndrome- Primary Insomnia, unspecified type Linear scleroderma Circumscribed scleroderma Primary hypertension Unspecified essential hypertension Chronic pain syndrome- Primary Insomnia, unspecified type Linear scleroderma Circumscribed scleroderma Primary hypertension Unspecified essential hypertension Osteoporosis, unspecified osteoporosis type, unspecified pathological fracture presence Other osteoarthritis of spine, lumbar region Hypercholesterolemia Pure hypercholesterolemia Chronic pain syndrome- Primary Chronic midline thoracic back pain Primary hypertension Unspecified essential hypertension Irritable bowel syndrome with both constipation and diarrhea Linear scleroderma Circumscribed scleroderma Primary insomnia Persistent disorder of initiating or maintaining sleep Encounter for screening mammogram for malignant neoplasm of breast Osteoporosis, unspecified osteoporosis type, unspecified pathological fracture presence Chronic pain syndrome- Primary Arthritis Unspecified arthropathy, site unspecified Influenza vaccine needed Linear scleroderma Circumscribed scleroderma Primary hypertension Unspecified essential hypertension Chronic pain syndrome- Primary Bulging lumbar disc Yeast dermatitis Chronic right-sided low back pain without sciatica Mass on back Localized superficial swelling, mass, or lump Routine general medical examination at health care facility- Primary Routine general medical examination at a health care facility Primary hypertension Unspecified essential hypertension Systemic sclerosis (HCC) Systemic sclerosis Osteopetrosis Hypercholesterolemia Pure hypercholesterolemia Linear scleroderma Circumscribed scleroderma Chronic pain syndrome Vitamin D deficiency Colon cancer screening Special screening for malignant neoplasms, colon Screening for deficiency anemia Screening for other and unspecified deficiency anemia Uncomplicated opioid dependence (HCC) Encounter for screening mammogram for malignant neoplasm of breast Abnormal mammography Abnormal mammogram, unspecified Chronic midline thoracic back pain Chronic right-sided low back pain without sciatica Irritable bowel syndrome with both constipation and diarrhea Primary insomnia Persistent disorder of initiating or maintaining sleep Chronic pain syndrome- Primary Screening for cervical cancer Screening for malignant neoplasm of the cervix Hidradenitis Systemic sclerosis (HCC) Systemic sclerosis Uncomplicated opioid dependence (HCC) Primary insomnia Persistent disorder of initiating or maintaining sleep Chronic right-sided low back pain without sciatica- Primary Osteopetrosis Osteoporosis, unspecified osteoporosis type, unspecified pathological fracture presence Insomnia, unspecified type Unsatisfactory cervical Papanicolaou smear Chronic pain syndrome Impacted cerumen of left ear Impacted cerumen Chronic pain syndrome [facility]* Diagnosis Insomnia, unspecified type- Primary 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 Chronic pain syndrome Primary hypertension- Primary Unspecified essential hypertension Chronic pain syndrome 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 Immunization due Chronic pain syndrome- Primary Irritation of left eye Primary hypertension Unspecified essential hypertension Chronic pain syndrome- Primary Insomnia, unspecified type 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 Primary hypertension Unspecified essential hypertension Colon cancer screening Special screening for malignant neoplasms, colon Routine general medical examination at health care facility- Primary Routine general medical examination at a health care facility Primary hypertension Unspecified essential hypertension Screening for deficiency anemia Screening for other and unspecified deficiency anemia Hypercholesterolemia Pure hypercholesterolemia Screening for lung cancer Encounter for screening mammogram for malignant neoplasm of breast Encounter for vitamin deficiency screening 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 Insomnia, unspecified type Acute bacterial conjunctivitis of right eye Irritable bowel syndrome, unspecified type Recurrent major depressive disorder, in full remission (HCC) Osteopetrosis Osteoporosis, unspecified osteoporosis type, unspecified pathological fracture presence Tobacco use disorder Chronic midline thoracic back pain- Primary Chronic pain syndrome Linear scleroderma Circumscribed scleroderma Insomnia, unspecified type Chronic pain syndrome- Primary Acute right-sided low back pain without sciatica Skin pimple Chronic pain of both upper extremities Mass on back- Primary Localized superficial swelling, mass, or lump Chronic midline thoracic back pain Systemic sclerosis (HCC) Systemic sclerosis Chronic pain syndrome Insomnia, unspecified type Spondylosis of lumbar spine Bulging lumbar disc- Primary Leg length discrepancy Unequal leg length (acquired) Other osteoarthritis of spine, lumbar region Primary hypertension Unspecified essential hypertension Chronic pain syndrome Mass on back Localized superficial swelling, mass, or lump Osteoporosis, unspecified osteoporosis type, unspecified pathological fracture presence Primary insomnia Persistent disorder of initiating or maintaining sleep Chronic pain syndrome- Primary Linear scleroderma Circumscribed scleroderma Primary hypertension Unspecified essential hypertension Osteopetrosis Osteoporosis, unspecified osteoporosis type, unspecified pathological fracture presence Chronic pain syndrome- Primary Insomnia, unspecified type Linear scleroderma Circumscribed scleroderma Primary hypertension Unspecified essential hypertension Chronic pain syndrome- Primary Insomnia, unspecified type Linear scleroderma Circumscribed scleroderma Primary hypertension Unspecified essential hypertension Osteoporosis, unspecified osteoporosis type, unspecified pathological fracture presence Other osteoarthritis of spine, lumbar region Hypercholesterolemia Pure hypercholesterolemia Chronic pain syndrome- Primary Chronic midline thoracic back pain Primary hypertension Unspecified essential hypertension Irritable bowel syndrome with both constipation and diarrhea Linear scleroderma Circumscribed scleroderma Primary insomnia Persistent disorder of initiating or maintaining sleep Encounter for screening mammogram for malignant neoplasm of breast Osteoporosis, unspecified osteoporosis type, unspecified pathological fracture presence Chronic pain syndrome- Primary Arthritis Unspecified arthropathy, site unspecified Influenza vaccine needed Linear scleroderma Circumscribed scleroderma Primary hypertension Unspecified essential hypertension Chronic pain syndrome- Primary Bulging lumbar disc Yeast dermatitis Chronic right-sided low back pain without sciatica Mass on back Localized superficial swelling, mass, or lump Routine general medical examination at health care facility- Primary Routine general medical examination at a health care facility Primary hypertension Unspecified essential hypertension Systemic sclerosis (HCC) Systemic sclerosis Osteopetrosis Hypercholesterolemia Pure hypercholesterolemia Linear scleroderma Circumscribed scleroderma Chronic pain syndrome Vitamin D deficiency Colon cancer screening Special screening for malignant neoplasms, colon Screening for deficiency anemia Screening for other and unspecified deficiency anemia Uncomplicated opioid dependence (HCC) Encounter for screening mammogram for malignant neoplasm of breast Abnormal mammography Abnormal mammogram, unspecified Chronic midline thoracic back pain Chronic right-sided low back pain without sciatica Irritable bowel syndrome with both constipation and diarrhea Primary insomnia Persistent disorder of initiating or maintaining sleep Chronic pain syndrome- Primary Screening for cervical cancer Screening for malignant neoplasm of the cervix Hidradenitis Systemic sclerosis (HCC) Systemic sclerosis Uncomplicated opioid dependence (HCC) Primary insomnia Persistent disorder of initiating or maintaining sleep Chronic right-sided low back pain without sciatica- Primary Osteopetrosis Osteoporosis, unspecified osteoporosis type, unspecified pathological fracture presence Insomnia, unspecified type Unsatisfactory cervical Papanicolaou smear Chronic pain syndrome Impacted cerumen of left ear Impacted cerumen Chronic pain syndrome- Primary Linear scleroderma Circumscribed scleroderma Neuropathy Mononeuritis of unspecified site Chronic pain of both upper extremities Acquired deformity of left lower leg Acquired arm deformity, left Primary osteoarthritis of right hip Systemic sclerosis (HCC) [facility]ic sclerosis [facility] Diagnosis Onset Date Resolution Status Admit Date Bursitis of right shoulder acute September 11, 2024 2:23pm Right shoulder pain acute September 11, 2024 2:23pm [employer] Work Phone: Evaluation note* Diagnosis Insomnia, unspecified type- Primary 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 Chronic pain syndrome Primary hypertension- Primary Unspecified essential hypertension Chronic pain syndrome 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 Immunization due Chronic pain syndrome- Primary Irritation of left eye Primary hypertension Unspecified essential hypertension Chronic pain syndrome- Primary Insomnia, unspecified type 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 Primary hypertension Unspecified essential hypertension Colon cancer screening Special screening for malignant neoplasms, colon Routine general medical examination at health care facility- Primary Routine general medical examination at a health care facility Primary hypertension Unspecified essential hypertension Screening for deficiency anemia Screening for other and unspecified deficiency anemia Hypercholesterolemia Pure hypercholesterolemia Screening for lung cancer Encounter for screening mammogram for malignant neoplasm of breast Encounter for vitamin deficiency screening 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 Insomnia, unspecified type Acute bacterial conjunctivitis of right eye Irritable bowel syndrome, unspecified type Recurrent major depressive disorder, in full remission (HCC) Osteopetrosis Osteoporosis, unspecified osteoporosis type, unspecified pathological fracture presence Tobacco use disorder Chronic midline thoracic back pain- Primary Chronic pain syndrome Linear scleroderma Circumscribed scleroderma Insomnia, unspecified type Chronic pain syndrome- Primary Acute right-sided low back pain without sciatica Skin pimple Chronic pain of both upper extremities Mass on back- Primary Localized superficial swelling, mass, or lump Chronic midline thoracic back pain Systemic sclerosis (HCC) Systemic sclerosis Chronic pain syndrome Insomnia, unspecified type Spondylosis of lumbar spine Bulging lumbar disc- Primary Leg length discrepancy Unequal leg length (acquired) Other osteoarthritis of spine, lumbar region Primary hypertension Unspecified essential hypertension Chronic pain syndrome Mass on back Localized superficial swelling, mass, or lump Osteoporosis, unspecified osteoporosis type, unspecified pathological fracture presence Primary insomnia Persistent disorder of initiating or maintaining sleep Chronic pain syndrome- Primary Linear scleroderma Circumscribed scleroderma Primary hypertension Unspecified essential hypertension Osteopetrosis Osteoporosis, unspecified osteoporosis type, unspecified pathological fracture presence Chronic pain syndrome- Primary Insomnia, unspecified type Linear scleroderma Circumscribed scleroderma Primary hypertension Unspecified essential hypertension Chronic pain syndrome- Primary Insomnia, unspecified type Linear scleroderma Circumscribed scleroderma Primary hypertension Unspecified essential hypertension Osteoporosis, unspecified osteoporosis type, unspecified pathological fracture presence Other osteoarthritis of spine, lumbar region Hypercholesterolemia Pure hypercholesterolemia Chronic pain syndrome- Primary Chronic midline thoracic back pain Primary hypertension Unspecified essential hypertension Irritable bowel syndrome with both constipation and diarrhea Linear scleroderma Circumscribed scleroderma Primary insomnia Persistent disorder of initiating or maintaining sleep Encounter for screening mammogram for malignant neoplasm of breast Osteoporosis, unspecified osteoporosis type, unspecified pathological fracture presence Chronic pain syndrome- Primary Arthritis Unspecified arthropathy, site unspecified Influenza vaccine needed Linear scleroderma Circumscribed scleroderma Primary hypertension Unspecified essential hypertension Chronic pain syndrome- Primary Bulging lumbar disc Yeast dermatitis Chronic right-sided low back pain without sciatica Mass on back Localized superficial swelling, mass, or lump Routine general medical examination at health care facility- Primary Routine general medical examination at a health care facility Primary hypertension Unspecified essential hypertension Systemic sclerosis (HCC) Systemic sclerosis Osteopetrosis Hypercholesterolemia Pure hypercholesterolemia Linear scleroderma Circumscribed scleroderma Chronic pain syndrome Vitamin D deficiency Colon cancer screening Special screening for malignant neoplasms, colon Screening for deficiency anemia Screening for other and unspecified deficiency anemia Uncomplicated opioid dependence (HCC) Encounter for screening mammogram for malignant neoplasm of breast Abnormal mammography Abnormal mammogram, unspecified Chronic midline thoracic back pain Chronic right-sided low back pain without sciatica Irritable bowel syndrome with both constipation and diarrhea Primary insomnia Persistent disorder of initiating or maintaining sleep Chronic pain syndrome- Primary Screening for cervical cancer Screening for malignant neoplasm of the cervix Hidradenitis Systemic sclerosis (HCC) Systemic sclerosis Uncomplicated opioid dependence (HCC) Primary insomnia Persistent disorder of initiating or maintaining sleep Chronic right-sided low back pain without sciatica- Primary Osteopetrosis Osteoporosis, unspecified osteoporosis type, unspecified pathological fracture presence Insomnia, unspecified type Unsatisfactory cervical Papanicolaou smear Chronic pain syndrome Impacted cerumen of left ear Impacted cerumen Insomnia, unspecified type [facility] Diagnosis Insomnia, unspecified type- Primary 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 Chronic pain syndrome Primary hypertension- Primary Unspecified essential hypertension Chronic pain syndrome 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 Immunization due Chronic pain syndrome- Primary Irritation of left eye Primary hypertension Unspecified essential hypertension Chronic pain syndrome- Primary Insomnia, unspecified type 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 Primary hypertension Unspecified essential hypertension Colon cancer screening Special screening for malignant neoplasms, colon Routine general medical examination at health care facility- Primary Routine general medical examination at a health care facility Primary hypertension Unspecified essential hypertension Screening for deficiency anemia Screening for other and unspecified deficiency anemia Hypercholesterolemia Pure hypercholesterolemia Screening for lung cancer Encounter for screening mammogram for malignant neoplasm of breast Encounter for vitamin deficiency screening 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 Insomnia, unspecified type Acute bacterial conjunctivitis of right eye Irritable bowel syndrome, unspecified type Recurrent major depressive disorder, in full remission (HCC) Osteopetrosis Osteoporosis, unspecified osteoporosis type, unspecified pathological fracture presence Tobacco use disorder Chronic midline thoracic back pain- Primary Chronic pain syndrome Linear scleroderma Circumscribed scleroderma Insomnia, unspecified type Chronic pain syndrome- Primary Acute right-sided low back pain without sciatica Skin pimple Chronic pain of both upper extremities Mass on back- Primary Localized superficial swelling, mass, or lump Chronic midline thoracic back pain Systemic sclerosis (HCC) Systemic sclerosis Chronic pain syndrome Insomnia, unspecified type Spondylosis of lumbar spine Bulging lumbar disc- Primary Leg length discrepancy Unequal leg length (acquired) Other osteoarthritis of spine, lumbar region Primary hypertension Unspecified essential hypertension Chronic pain syndrome Mass on back Localized superficial swelling, mass, or lump Osteoporosis, unspecified osteoporosis type, unspecified pathological fracture presence Primary insomnia Persistent disorder of initiating or maintaining sleep Chronic pain syndrome- Primary Linear scleroderma Circumscribed scleroderma Primary hypertension Unspecified essential hypertension Osteopetrosis Osteoporosis, unspecified osteoporosis type, unspecified pathological fracture presence Chronic pain syndrome- Primary Insomnia, unspecified type Linear scleroderma Circumscribed scleroderma Primary hypertension Unspecified essential hypertension Chronic pain syndrome- Primary Insomnia, unspecified type Linear scleroderma Circumscribed scleroderma Primary hypertension Unspecified essential hypertension Osteoporosis, unspecified osteoporosis type, unspecified pathological fracture presence Other osteoarthritis of spine, lumbar region Hypercholesterolemia Pure hypercholesterolemia Chronic pain syndrome- Primary Chronic midline thoracic back pain Primary hypertension Unspecified essential hypertension Irritable bowel syndrome with both constipation and diarrhea Linear scleroderma Circumscribed scleroderma Primary insomnia Persistent disorder of initiating or maintaining sleep Encounter for screening mammogram for malignant neoplasm of breast Osteoporosis, unspecified osteoporosis type, unspecified pathological fracture presence Chronic pain syndrome- Primary Arthritis Unspecified arthropathy, site unspecified Influenza vaccine needed Linear scleroderma Circumscribed scleroderma Primary hypertension Unspecified essential hypertension Chronic pain syndrome- Primary Bulging lumbar disc Yeast dermatitis Chronic right-sided low back pain without sciatica Mass on back Localized superficial swelling, mass, or lump Routine general medical examination at health care facility- Primary Routine general medical examination at a health care facility Primary hypertension Unspecified essential hypertension Systemic sclerosis (HCC) Systemic sclerosis Osteopetrosis Hypercholesterolemia Pure hypercholesterolemia Linear scleroderma Circumscribed scleroderma Chronic pain syndrome Vitamin D deficiency Colon cancer screening Special screening for malignant neoplasms, colon Screening for deficiency anemia Screening for other and unspecified deficiency anemia Uncomplicated opioid dependence (HCC) Encounter for screening mammogram for malignant neoplasm of breast Abnormal mammography Abnormal mammogram, unspecified Chronic midline thoracic back pain Chronic right-sided low back pain without sciatica Irritable bowel syndrome with both constipation and diarrhea Primary insomnia Persistent disorder of initiating or maintaining sleep Chronic pain syndrome- Primary Screening for cervical cancer Screening for malignant neoplasm of the cervix Hidradenitis Systemic sclerosis (HCC) Systemic sclerosis Uncomplicated opioid dependence (HCC) Primary insomnia Persistent disorder of initiating or maintaining sleep Chronic right-sided low back pain without sciatica- Primary Osteopetrosis Osteoporosis, unspecified osteoporosis type, unspecified pathological fracture presence Insomnia, unspecified type Unsatisfactory cervical Papanicolaou smear Chronic pain syndrome Impacted cerumen of left ear Impacted cerumen Chronic pain syndrome [facility] Diagnosis Insomnia, unspecified type- Primary 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 Chronic pain syndrome Primary hypertension- Primary Unspecified essential hypertension Chronic pain syndrome 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 Immunization due Chronic pain syndrome- Primary Irritation of left eye Primary hypertension Unspecified essential hypertension Chronic pain syndrome- Primary Insomnia, unspecified type 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 Primary hypertension Unspecified essential hypertension Colon cancer screening Special screening for malignant neoplasms, colon Routine general medical examination at health care facility- Primary Routine general medical examination at a health care facility Primary hypertension Unspecified essential hypertension Screening for deficiency anemia Screening for other and unspecified deficiency anemia Hypercholesterolemia Pure hypercholesterolemia Screening for lung cancer Encounter for screening mammogram for malignant neoplasm of breast Encounter for vitamin deficiency screening 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 Insomnia, unspecified type Acute bacterial conjunctivitis of right eye Irritable bowel syndrome, unspecified type Recurrent major depressive disorder, in full remission (HCC) Osteopetrosis Osteoporosis, unspecified osteoporosis type, unspecified pathological fracture presence Tobacco use disorder Chronic midline thoracic back pain- Primary Chronic pain syndrome Linear scleroderma Circumscribed scleroderma Insomnia, unspecified type Chronic pain syndrome- Primary Acute right-sided low back pain without sciatica Skin pimple Chronic pain of both upper extremities Mass on back- Primary Localized superficial swelling, mass, or lump Chronic midline thoracic back pain Systemic sclerosis (HCC) Systemic sclerosis Chronic pain syndrome Insomnia, unspecified type Spondylosis of lumbar spine Bulging lumbar disc- Primary Leg length discrepancy Unequal leg length (acquired) Other osteoarthritis of spine, lumbar region Primary hypertension Unspecified essential hypertension Chronic pain syndrome Mass on back Localized superficial swelling, mass, or lump Osteoporosis, unspecified osteoporosis type, unspecified pathological fracture presence Primary insomnia Persistent disorder of initiating or maintaining sleep Chronic pain syndrome- Primary Linear scleroderma Circumscribed scleroderma Primary hypertension Unspecified essential hypertension Osteopetrosis Osteoporosis, unspecified osteoporosis type, unspecified pathological fracture presence Chronic pain syndrome- Primary Insomnia, unspecified type Linear scleroderma Circumscribed scleroderma Primary hypertension Unspecified essential hypertension Chronic pain syndrome- Primary Insomnia, unspecified type Linear scleroderma Circumscribed scleroderma Primary hypertension Unspecified essential hypertension Osteoporosis, unspecified osteoporosis type, unspecified pathological fracture presence Other osteoarthritis of spine, lumbar region Hypercholesterolemia Pure hypercholesterolemia Chronic pain syndrome- Primary Chronic midline thoracic back pain Primary hypertension Unspecified essential hypertension Irritable bowel syndrome with both constipation and diarrhea Linear scleroderma Circumscribed scleroderma Primary insomnia Persistent disorder of initiating or maintaining sleep Encounter for screening mammogram for malignant neoplasm of breast Osteoporosis, unspecified osteoporosis type, unspecified pathological fracture presence Chronic pain syndrome- Primary Arthritis Unspecified arthropathy, site unspecified Influenza vaccine needed Linear scleroderma Circumscribed scleroderma Primary hypertension Unspecified essential hypertension Chronic pain syndrome- Primary Bulging lumbar disc Yeast dermatitis Chronic right-sided low back pain without sciatica Mass on back Localized superficial swelling, mass, or lump Routine general medical examination at health care facility- Primary Routine general medical examination at a health care facility Primary hypertension Unspecified essential hypertension Systemic sclerosis (HCC) Systemic sclerosis Osteopetrosis Hypercholesterolemia Pure hypercholesterolemia Linear scleroderma Circumscribed scleroderma Chronic pain syndrome Vitamin D deficiency Colon cancer screening Special screening for malignant neoplasms, colon Screening for deficiency anemia Screening for other and unspecified deficiency anemia Uncomplicated opioid dependence (HCC) Encounter for screening mammogram for malignant neoplasm of breast Abnormal mammography Abnormal mammogram, unspecified Chronic midline thoracic back pain Chronic right-sided low back pain without sciatica Irritable bowel syndrome with both constipation and diarrhea Primary insomnia Persistent disorder of initiating or maintaining sleep Chronic pain syndrome- Primary Screening for cervical cancer Screening for malignant neoplasm of the cervix Hidradenitis Systemic sclerosis (HCC) Systemic sclerosis Uncomplicated opioid dependence (HCC) Primary insomnia Persistent disorder of initiating or maintaining sleep Chronic right-sided low back pain without sciatica- Primary Osteopetrosis Osteoporosis, unspecified osteoporosis type, unspecified pathological fracture presence Insomnia, unspecified type Unsatisfactory cervical Papanicolaou smear Chronic pain syndrome Impacted cerumen of left ear Impacted cerumen Hypercholesterolemia Pure hypercholesterolemia [facility] Narrative No data available for this section [facility] Hospital Discharge instructions Additional Instructions You need to follow-up with the pain management.[facility] Work Phone: Hospital Discharge instructions No data available for this section [facility] Instructions* Attachments The following attachments cannot be sent through Care Everywhere. * Flu Vaccine ([place]ian) [facility] No data available for this section [facility] Reason for referral (narrative)* Outpatient Procedure (Routine) - Authorized Specialty Diagnoses / Procedures Referred By Cheyenne t Referred To [facility] Diagnoses Right calf pain Procedures US LEG VEIN DVT UNL VAS LAB DUP-SCAN XTR VEINS UNILATERAL/LIMITED STUDY Ginny Costa, CURTAIN FRAMER.EMPLOYEE HEALTH NURSE [address] [place] [address] [facility] [address] [place] [address] Referral ID Status Reason Start Date Expiration Date Visits Requested Visits Authorized [id number] Authorized Auto-Generat ed Referral 10/27/2021 10/27/2022 1 1 [facility] for referral (narrative)* Consultation (Routine) - Pending Review Specialty Diagnoses / Procedures Referred By Contac t Referred To Contact Gastroenterology Diagnoses Colon cancer screening Procedures [place] OFFICE/OUTPATIENT [facility] MDM 60-74 MINUTES Britta Trinidad APRN - CNP [address] [place] [address] [facility] [address] [place] [address] Referral ID Status Reason Start Date Expiration Date Visits Requested Visits Authorized [id number] Pending Review Specialty Services Required 02/03/2024 1 1 [facility] (narrative)* Consultation (Routine) - Pending Review Specialty Diagnoses / Procedures Referred By Contac t Referred To Contact Osteopathic Medicine Diagnoses Osteopetrosis Osteoporosis, unspecified osteoporosis type, unspecified pathological fracture presence Britta Trinidad APRN - CNP [address] [place] [address] Referral ID Status Reason Start Date Expiration Date Visits Requested Visits Authorized [id number] Pending Review Specialty Services Required 03/08/2023 03/07/2024 1 1 [facility] Consultation (Routine) - Pending Review Specialty Diagnoses / Procedures Referred By Contac t Referred To Contact Pain Medicine Diagnoses Chronic midline thoracic back pain Systemic sclerosis (HCC) Chronic pain syndrome Spondylosis of lumbar spine Linear scleroderma Chronic pain of both upper extremities Arthritis of left glenohumeral joint Procedures [place] OFFICE/OUTPATIENT [facility] MDM 60 MINUTES Britta Trinidad APRN - CNP [address] [facility] [address] [place] [address] Referral ID Status Reason Start Date Expiration Date Visits Requested Visits Authorized [id number] Pending Review Specialty Services Required 06/01/2023 05/31/2024 1 1 Scheduling Instructions [facility] in [place], [place] . Leonid Olea for referral (narrative)* Consultation (Routine) - Pending Review Specialty Diagnoses / Procedures Referred By Cheyenne bowles Referred To Contact Rheumatology Diagnoses Linear scleroderma Procedures [place] OFFICE/OUTPATIENT [facility] MDM 60 MINUTES Britta Trinidad APRN - CNP [address] [place] [address] Brandi Benson MD [address] [address] Referral ID Status Reason Start Date Expiration Date Visits Requested Visits Authorized [id number] Pending Review Specialty Services Required 09/09/2023 09/08/2024 1 1 [facility] (narrative)No reason for referral information availableBrantingham Medical Services Work Phone: Chief Complaint and Reason for Visit Chief Complaint med refill Chief Complaint med refill LEFT SHOULDER LEFT SHOULDER LEFT SHOULDER xray SHOULDER PAIN Reason for Visit Closed left clavicul ar fracture Closed left clavicular fracture Closed left clavicular fracture Chief Complaint LEFT SHOULDER Room 1 NEW PT - BONE LESION OSTEOPETROSIS NO LABS REVIEW MRI Reason for Visit Arthritis of left gl enohumeral joint Closed left clavicular fracture Contusion of right hip Bony sclerosis Bursitis of right hip Enchondroma of bone Chief Complaint LEFT SHOULDER Room 1 NEW PT - BONE LESION OSTEOPETROSIS NO LABS REVIEW MRI HIP INVANZ INVANZ Reason for Visit Arthritis of left gl enohumeral joint Closed left clavicular fracture Contusion of right hip Bony sclerosis Bursitis of right hip Enchondroma of bone Bursitis of right hip Enchondroma of bone Chief Complaint LEFT SHOULDER Room 1 NEW PT - BONE LESION OSTEOPETROSIS NO LABS REVIEW MRI HIP INVANZ INVANZ INVANZ Reason for Visit Arthritis of left gl enohumeral joint Closed left clavicular fracture Contusion of right hip Bony sclerosis Bursitis of right hip Enchondroma of bone Bursitis of right hip Enchondroma of bone Chief Complaint LEFT SHOULDER Room 1 NEW PT - BONE LESION OSTEOPETROSIS NO LABS REVIEW MRI HIP INVANZ INVANZ INVANZ INVANZ INVANZ INVANZ wound INVANZ Reason for Visit Arthritis of left gl enohumeral joint Closed left clavicular fracture Contusion of right hip Bony sclerosis Bursitis of right hip Enchondroma of bone Bursitis of right hip Enchondroma of bone Chief Complaint LEFT SHOULDER Room 1 NEW PT - BONE LESION OSTEOPETROSIS NO LABS REVIEW MRI HIP INVANZ INVANZ INVANZ INVANZ INVANZ INVANZ wound INVANZ INVANZ INVANZ Reason for Visit Arthritis of left gl enohumeral joint Closed left clavicular fracture Contusion of right hip Bony sclerosis Bursitis of right hip Enchondroma of bone Bursitis of right hip Enchondroma of bone Chief Complaint LEFT SHOULDER Room 1 NEW PT - BONE LESION OSTEOPETROSIS NO LABS REVIEW MRI HIP INVANZ INVANZ INVANZ INVANZ INVANZ INVANZ wound INVANZ INVANZ INVANZ INVANZ Reason for Visit Arthritis of left gl enohumeral joint Closed left clavicular fracture Contusion of right hip Bony sclerosis Bursitis of right hip Enchondroma of bone Bursitis of right hip Enchondroma of bone Chief Complaint LEFT SHOULDER Room 1 NEW PT - BONE LESION OSTEOPETROSIS NO LABS REVIEW MRI HIP INVANZ INVANZ INVANZ INVANZ INVANZ INVANZ wound INVANZ INVANZ INVANZ INVANZ INVANZ Reason for Visit Arthritis of left gl enohumeral joint Closed left clavicular fracture Contusion of right hip Bony sclerosis Bursitis of right hip Enchondroma of bone Bursitis of right hip Enchondroma of bone Chief Complaint LEFT SHOULDER Room 1 NEW PT - BONE LESION OSTEOPETROSIS NO LABS REVIEW MRI HIP INVANZ INVANZ INVANZ INVANZ INVANZ INVANZ wound INVANZ INVANZ INVANZ INVANZ INVANZ INVANZ INVANZ INVANZ Reason for Visit Arthritis of left gl enohumeral joint Closed left clavicular fracture Contusion of right hip Bony sclerosis Bursitis of right hip Enchondroma of bone Bursitis of right hip Enchondroma of bone Chief Complaint LEFT SHOULDER Room 1 NEW PT - BONE LESION OSTEOPETROSIS NO LABS REVIEW MRI HIP INVANZ INVANZ INVANZ INVANZ INVANZ INVANZ wound INVANZ INVANZ INVANZ INVANZ INVANZ INVANZ INVANZ INVANZ medical dressing change Reason for Visit Arthritis of left gl enohumeral joint Closed left clavicular fracture Contusion of right hip Bony sclerosis Bursitis of right hip Enchondroma of bone Bursitis of right hip Enchondroma of bone Chief Complaint NEW PT - BONE LESION OSTEOPETROSIS NO LABS REVIEW MRI HIP INVANZ INVANZ INVANZ INVANZ INVANZ INVANZ wound INVANZ INVANZ INVANZ INVANZ INVANZ INVANZ INVANZ INVANZ medical dressing change Reason for Visit Bony sclerosis Bursitis of right hip Enchondroma of bone Bursitis of right hip Enchondroma of bone Chief Complaint INVANZ INVANZ INVANZ INVANZ INVANZ INVANZ wound INVANZ INVANZ INVANZ INVANZ INVANZ INVANZ INVANZ INVANZ medical dressing change RIGHT HIP Room 1 RIGHT HIP Reason for Visit Bursitis of right hi p DDD (degenerative disc disease), lumbar Iliotibial band syndrome of right side Bursitis of right hip DDD (degenerative disc disease), lumbar Iliotibial band syndrome of right side Chief Complaint BL SHOULDERS RM 2 general illness Reason for Visit Scleroderma Chief Complaint Admit Date RIGHT SHOULDER September 11, 2024 2:23 pm Reason for Visit Admit Date Bursitis of right shoulder September 11 2:23pm Right shoulder pain September 11, 2024 2:23 pm Advance Directives Advance Directive Response Recorded Date/ Time Living Will No August 08, 2021 9:17am Power of Resident Services Director No August 08 9:17am Advance Directive Response Recorded Date/ Time Living Will No November 21 12:09pm Power of Resident Services Director No November 21 12:09pm Advance Directive Response Recorded Date/ Time Living Will No December 03 12:55pm Power of Resident Services Director No December 03, 2021 12:55pm Advance Directive Response Recorded Date/ Time Living Will No December 03 1:55pm Power of Resident Services Director No December 03, 2021 1:55pm Advance Directive Response Recorded Date/ Time Living Will No May 14, 2022 10:36am Power of Resident Services Director No May 14 10:36am Advance Directive Response Recorded Date/ Time Living Will No June 22, 2022 2: 03pm Power of Resident Services Director No June 22, 2022 2:03pm Advance Directive Response Recorded Date/ Time Living Will No February 15 2:57pm Power of Resident Services Director No February 15 2:57pm Reason for Referral Specialty Diagnoses / Procedures Referred By Contac t Referred To Contact Podiatry Diagnoses Callus of foot Procedures CONSULT TO PODIATRY OFFICE/OUTPATIENT [facility] 60-74 MINUTES Tea Ruiz, CURTAIN FRAMER.IMPREGNATOR HELPER [address] [place] [address] Referral ID Status Reason Start Date Expiration Date Visits Requested Visits Authorized [id number] Pending Review PCP Requested Referral 08/12/2021 08/12/2022 1 1 Specialty Diagnoses / Procedures Referred By Contac t Referred To Contact Rheumatology Diagnoses Personal history of scleroderma Procedures CONSULT TO RHEUM/IMMUN DISEASE OFFICE/OUTPATIENT [facility] 60-74 MINUTES Tea Ruiz, CURTAIN FRAMER.IMPREGNATOR HELPER [address] [place] [address] Referral ID Status Reason Start Date Expiration Date Visits Requested Visits Authorized [id number] Pending Review PCP Requested Referral 08/12/2021 08/12/2022 1 1 Specialty Diagnoses / Procedures Referred By Contac t Referred To Contact Diagnoses Well woman exam with routine gynecological exam Procedures CONSULT TO PUMP HOUSE OPERATOR OFFICE/OUTPATIENT [facility] 60-74 MINUTES Tea Ruiz, CURTAIN FRAMER.IMPREGNATOR HELPER [address] [place] [address] Referral ID Status Reason Start Date Expiration Date Visits Requested Visits Authorized [id number] Pending Review PCP Requested Referral Auto-Generate d Referral 08/12/2021 08/12/2022 1 1 Specialty Diagnoses / Procedures Referred By Contac t Referred To Contact [facility] Diagnoses Chronic pain syndrome Procedures CONSULT TO PAIN MGT OFFICE/OUTPATIENT [facility] 60-74 MINUTES Tea Ruiz, CURTAIN FRAMER.IMPREGNATOR HELPER [address] [place] [address] Anesthesia [place] [address] [place] [address] Referral ID Status Reason Start Date Expiration Date V isits Requested Visits Authorized [id number] Closed PCP Requested Referral 08/12/2021 08/12/2022 1 1 Specialty Diagnoses / Procedures Referred By Contac t Referred To Contact BR IMAGING Diagnoses Encounter for screening mammogram for breast cancer Procedures CORBIN SCREENING SCREENING MAMMOGRAPHY BI 2-VIEW BREAST INC CAD Tea Ruiz, CURTAIN FRAMER.IMPREGNATOR HELPER [address] [place] [address] [facility] [address] [place] [address] Referral ID Status Reason Start Date Expiration Date Visits Requested Visits Authorized [id number] Pending Review Auto-Generat ed Referral 08/12/2021 09/11/2022 1 1 Specialty Diagnoses / Procedures Referred By Contac t Referred To Contact Pain Management Diagnoses Chronic pain syndrome Personal history of scleroderma Acquired arm deformity, left Acquired deformity of left lower leg Procedures CONSULT TO PAIN MGT Tea Ruiz, KATHERINE.IMPREGNATOR HELPER [address] [place] [address] Referral ID Status Reason Start Date Expiration Date Visits Requested Visits Authorized [id number] Ref Not Required PCP Requested Referral 11/21/2021 11/21/2022 1 1 Specialty Diagnoses / Procedures Referred By Contac t Referred To Contact Psychology Diagnoses Chronic, continuous use of opioids Procedures CONSULT TO PSYCHOLOGY OFFICE/OUTPATIENT COMMUNITY [facility]ALTH MDM 60-[place] [address] [facility] [address] [place] [address] Referral ID Status Reason Start Date Expiration Date Visits Requested Visits Authorized [id number] Pending Review PCP Requested Referral 11/18/2022 11/18/2023 1 1 Specialty Diagnoses / Procedures Referred By Contac t Referred To Contact XR IMAGING Diagnoses Thoracic spondylosis without myelopathy Procedures XR THORACIC LIMITED 2V AP/LAT RADEX SPINE THORACIC 2 VIEWS Sabrina Tineo MD [facility] [address] [place] [address] [place] [address] Referral ID Status Reason Start Date Expiration Date Visits Requested Visits Authorized [id number] Pending Review Auto-Generat ed Referral 11/18/2022 12/18/2023 1 1 Specialty Diagnoses / Procedures Referred By Contac t Referred To Contact XR IMAGING Diagnoses Lumbar spondylosis Low back pain, unspecified back pain laterality, unspecified chronicity, unspecified whether sciatica present Procedures XR LUMBAR GENERAL 3V AP/LAT/L5-S1 RADEX SPINE LUMBOSACRAL 2/3 VIEWS Sabrina Tineo MD [facility] [address] [place] [id number] Xr Imaging [facility] Referral ID Status Reason Start Date Expiration Date Visits Requested Visits Authorized [id number] Pending Review Auto-Generat ed Referral 11/18/2022 12/18/2023 1 1 Specialty Diagnoses / Procedures Referred By Contac t Referred To Contact Radiology Diagnoses Screening for lung cancer Procedures CT lung screening low dose Bridenthal, Britta, CURTAIN FRAMER - EMPLOYEE HEALTH NURSE [address] [place] [address] Referral ID Status Reason Start Date Expiration Date V isits Requested Visits Authorized [id number] Pending Review 03/04/2023 03/03/2024 1 1 Specialty Diagnoses / Procedures Referred By Contac t Referred To Contact Radiology Diagnoses Mass on back Systemic sclerosis (HCC) Procedures MR lumbar spine wo contrast Bridenthal, Britta, CURTAIN FRAMER - EMPLOYEE HEALTH NURSE [address] [facility] [place] [address] Referral ID Status Reason Start Date Expiration Date V isits Requested Visits Authorized [id number] Pending Review 05/20/2023 05/19/2024 1 1 Specialty Diagnoses / Procedures Referred By Contac t Referred To Contact Radiology Diagnoses Mass on back Systemic sclerosis (HCC) Procedures MR thoracic spine wo contrast Bridenthal, Britta, CURTAIN FRAMER - EMPLOYEE HEALTH NURSE [address] [place] [address] Referral ID Status Reason Start Date Expiration Date V isits Requested Visits Authorized [id number] Pending Review 05/20/2023 05/19/2024 1 1 Specialty Diagnoses / Procedures Referred By Contac t Referred To Contact Radiology Diagnoses Screening for lung cancer Tobacco use disorder Procedures CT lung screening low dose Bridenthal, Britta, CURTAIN FRAMER - EMPLOYEE HEALTH NURSE [address] [place] [address] Referral ID Status Reason Start Date Expiration Date V isits Requested Visits Authorized [id number] Authorized 03/04/2023 03/03/2024 1 1 Referral ID Status Reason Start Date Expiration Date Visits Re quested Visits Authorized [id number] Closed 05/20/2023 05/19/2024 1 1 Referral ID Status Reason Start Date Expiration Date Visits Re quested Visits Authorized [id number] Closed 05/20/2023 05/19/2024 1 1 Specialty Diagnoses / Procedures Referred By Contac t Referred To Contact Physical Therapy Diagnoses Bulging lumbar disc Leg length discrepancy Procedures NV OFFICE/OUTPATIENT NEW HIGH MDM 60 MINUTES Bridenthal, Britta, CURTAIN FRAMER - EMPLOYEE HEALTH NURSE [address] [place] [address] Referral ID Status Reason Start Date Expiration Date Visits Requested Visits Authorized [id number] Pending Review Eval and Treat 07/28/2023 01/24/2024 99 99 Scheduling Instructions [facility] Physical therapy [address] [facility] Summary Purpose Family History Relationship Condition Age at Onset Recorded Date/T yelena aunt Malignant neoplasm Unknown mother Diabetes mellitus Unknown Additional Source Comments Goals (unrecognized section and content) Goals may be documented in a n alternate sectionGoals may be documented in an alternate section No data available for this section No data available for this section No data available for this section No data available for this sectionGoals may be documented in an alternate section No data available for this section No data available for this section No data available for this section No data available for this sectionGoals may be documented in an alternate sectionGoals may be documented in an alternate section No data available for this sectionGoals may be documented in an alternate sectionGoals may be documented in an alternate sectionGoals may be documented in an alternate sectionGoals may be documented in an alternate sectionGoals may be documented in an alternate sectionGoals may be documented in an alternate sectionGoals may be documented in an alternate sectionGoals may be documented in an alternate sectionGoals may be documented in an alternate sectionGoals may be documented in an alternate sectionGoals may be documented in an alternate sectionGoals may be documented in an alternate section No data available for this sectionGoals may be documented in an alternate section No data available for this section No data available for this sectionGoals may be documented in an alternate section No data available for this sectionGoals may be documented in an alternate section No data available for this section No data available for this section No data available for this sectionGoals may be documented in an alternate section Source Comments (unrecognize d section and content) In the event this informatio n is protected by the Federal Confidentiality of Alcohol and Drug Abuse Patient Records regulations: The Federal rules restrict any use of the information to criminally investigate or prosecute any alcohol or drug abuse patient.[facility] Center[facility] the event this information is protected by the Federal Confidentiality of Alcohol and Drug Abuse Patient Records regulations: The Federal rules restrict any use of the information to criminally investigate or prosecute any alcohol or drug abuse patient.[facility] CenterIn the event this information is protected by the Federal Confidentiality of Alcohol and Drug Abuse Patient Records regulations: The Federal rules restrict any use of the information to criminally investigate or prosecute any alcohol or drug abuse patient.[facility] CenterIn the event this information is protected by the Federal Confidentiality of Alcohol and Drug Abuse Patient Records regulations: The Federal rules restrict any use of the information to criminally investigate or prosecute any alcohol or drug abuse patient.[facility] CenterIn the event this information is protected by the Federal Confidentiality of Alcohol and Drug Abuse Patient Records regulations: The Federal rules restrict any use of the information to criminally investigate or prosecute any alcohol or drug abuse patient.[facility] CenterIn the event this information is protected by the Federal Confidentiality of Alcohol and Drug Abuse Patient Records regulations: The Federal rules restrict any use of the information to criminally investigate or prosecute any alcohol or drug abuse patient.[facility] CenterIn the event this information is protected by the Federal Confidentiality of Alcohol and Drug Abuse Patient Records regulations: The Federal rules restrict any use of the information to criminally investigate or prosecute any alcohol or drug abuse patient.[facility] CenterIn the event this information is protected by the Federal Confidentiality of Alcohol and Drug Abuse Patient Records regulations: The Federal rules restrict any use of the information to criminally investigate or prosecute any alcohol or drug abuse patient.[facility] CenterIn the event this information is protected by the Federal Confidentiality of Alcohol and Drug Abuse Patient Records regulations: The Federal rules restrict any use of the information to criminally investigate or prosecute any alcohol or drug abuse patient.[facility] CenterIn the event this information is protected by the Federal Confidentiality of Alcohol and Drug Abuse Patient Records regulations: The Federal rules restrict any use of the information to criminally investigate or prosecute any alcohol or drug abuse patient.[facility] CenterIn the event this information is protected by the Federal Confidentiality of Alcohol and Drug Abuse Patient Records regulations: The Federal rules restrict any use of the information to criminally investigate or prosecute any alcohol or drug abuse patient.[facility] CenterIn the event this information is protected by the Federal Confidentiality of Alcohol and Drug Abuse Patient Records regulations: The Federal rules restrict any use of the information to criminally investigate or prosecute any alcohol or drug abuse patient.[facility] CenterIn the event this information is protected by the Federal Confidentiality of Alcohol and Drug Abuse Patient Records regulations: The Federal rules restrict any use of the information to criminally investigate or prosecute any alcohol or drug abuse patient.[facility] CenterIn the event this information is protected by the Federal Confidentiality of Alcohol and Drug Abuse Patient Records regulations: The Federal rules restrict any use of the information to criminally investigate or prosecute any alcohol or drug abuse patient.[facility] Reason for Visit (unrecogniz ed section and content) Reason Comments Follow-up Specialty Diagnoses / Procedures Referred By Hernánac t Referred To Contact Osteoporosis Bone Health Diagnoses Osteopetrosis Osteoporosis, unspecified osteoporosis type, unspecified pathological fracture presence Britta Trinidad, CURTAIN FRAMER - EMPLOYEE HEALTH NURSE [address] [place] [address] [place] [address] Verna Barnett, CURTAIN FRAMER - EMPLOYEE HEALTH NURSE [address] [facility] [address] [place] [address] Referral ID Status Reason Start Date Expiration Date Visits Requested Visits Authorized [id number] Pending Review Specialty Services Required 03/08/2023 03/07/2024 1 1 Reason Comments Refill Request Reason Comments Establish Care Specialty Diagnoses / Procedures Referred By Contac t Referred To Contact Internal Medicine / INTERNAL MEDICINE Diagnoses est care, moved from [place], referral for pain management Procedures [address] [place] [address] Tea Ruiz, CURTAIN FRAMER.IMPREGNATOR HELPER [address] [place] [address] Referral ID Status Reason Start Date Expiration Date Visits Re quested Visits Authorized [id number] Closed 08/12/2021 02/14/2022 1 1 Reason Comments [...] Pain Specialty Diagnoses / Procedures Referred By Contac t Referred To Contact Podiatry Diagnoses Callus of foot Procedures CONSULT TO PODIATRY OFFICE/OUTPATIENT NEW HIGH MDM 60-74 MINUTES Tea Ruiz, CURTAIN FRAMER.IMPREGNATOR HELPER [address] [place] [address] [place] [address] Referral ID Status Reason Start Date Expiration Date V isits Requested Visits Authorized [id number] Closed PCP Requested Referral 08/15/2021 02/14/2022 1 [...] Onset Date Comments Med Refill 01/05/2023 Reason Onset Date Comments Medication Problem 01/06/2023 Reason Onset Date Comments Appointment Request 01/14/2023 Reason Comments Follow-up Reason Onset Date Comments Colon Cancer Screening 02/04/2023 Colonoscopy 02/04/2023 Screening Progra m Reason Onset Date Comments Results 02/05/2023 Reason Comments Medicare Annual Wellness Visit Initial Health Maintenance MAS-GnhptCayuf-piuau d priorLung screen-pendedDexa rosckn-gvdpumZsred-kkuate get [facility] Reason Onset Date Comments Referral 03/04/2023 Reason Onset Date Comments Colon Cancer Screening 02/04/2023 Colonoscopy 02/04/2023 Transitioned out of screening program/pt requests office visit Reason Onset Date Comments Results 03/08/2023 Reason Comments Follow-up Medication follow up Reason Onset Date Comments Med Refill 04/13/2023 Reason Comments Medication Check Nose Problem Reason Onset Date Comments New Patient 05/12/2023 Reason Comments Follow-up Chronic Pain Reason Onset Date Comments Appointment Request 05/03/2023 Reason Onset Date Comments rx for LUNG SCREENING 06/08/2023 Reason Onset Date Comments Med Refill 06/22/2023 Reason Comments Med Refill Specialty Diagnoses / Procedures Referred By Contac t Referred To Contact Radiology Diagnoses Mass on back Systemic sclerosis (HCC) Procedures MR lumbar spine wo contrast Bridenthal, Britta, CURTAIN FRAMER - EMPLOYEE HEALTH NURSE [address] [facility] [place] [address] Referral ID Status Reason Start Date Expiration Date V isits Requested Visits Authorized [id number] Authorized 05/20/2023 05/19/2024 1 1 Specialty Diagnoses / Procedures Referred By Contac t Referred To Contact Radiology Diagnoses Mass on back Systemic sclerosis (HCC) Procedures MR thoracic spine wo contrast Bridenthal, Britta, CURTAIN FRAMER - EMPLOYEE HEALTH NURSE [address] [facility] [place] [address] Referral ID Status Reason Start Date Expiration Date V isits Requested Visits Authorized [id number] Authorized 05/20/2023 05/19/2024 1 1 Specialty Diagnoses / Procedures Referred By Contac t Referred To Contact Radiology Diagnoses Screening for lung cancer Tobacco use disorder Procedures CT lung screening low dose Britta Trinidad, CURTAIN FRAMER - EMPLOYEE HEALTH NURSE [address] [facility] [place] [address] Referral ID Status Reason Start Date Expiration Date V isits Requested Visits Authorized [id number] Authorized 03/04/2023 03/03/2024 1 1 Referral ID Status Reason Start Date Expiration Date Visits Re quested Visits Authorized [id number] Closed 05/20/2023 05/19/2024 1 1 Referral ID Status Reason Start Date Expiration Date Visits Re quested Visits Authorized [id number] Closed 05/20/2023 05/19/2024 1 1 Reason Onset Date Comments Med Refill 07/13/2023 Reason Onset Date Comments Error (VOID this visit) 07/23/2023 Reason Onset Date Comments Med Refill 07/23/2023 Reason Comments Medication Check Reason Comments Pain Reason Onset Date Comments Med Refill 08/20/2023 Reason Comments New Patient Pt is here for pain through out her entire body. She states she has been dealing with pain for over 30 yrs. Today her worst pain is in the center of her low back and to the right side. She states she has a soft mass in her back which causes a lot of pain. Pain in her left shoulder which began years ago after she broke it. Does get injections to help with this pain. Reason Comments Medication Check Reason Onset Date Comments Medication Problem 11/25/2023 Reason Onset Date Comments Care Coordination 12/14/2023 Reason Onset Date Comments Med Refill 12/22/2023 Reason Onset Date Comments Medication Problem 02/17/2024 oxyCODONE-pastora taminophen (Percocet) 5-325 MG tablet Reason Onset Date Comments Orders 10/12/2023 CT-Lung Screen Reason Comments Medicare Annual Wellness Visit Initial Health Maintenance NFQ-ZxztrBzxtf-burvp d priorLung screen-pendedDexa cfpatg-gywaqjIllgu-eyoqcu get earl pink send kathrin Reason Onset Date Comments Med Refill 03/02/2024 Reason Comments Medicare Annual Wellness Visit Subsequen t Health Maintenance HIV Screening-DECLIN ED Colorectal Cancer Screening-PENDED LAST REF CLOSED Diabetes Screening-ORDERS IN DTaP/Tdap/Td Vaccines -DECLINED Hepatitis B Vaccines-DECLINED Cervical Cancer Screening-NEEDS SCHEDULED Zoster Vaccines-declined Lung Cancer Screening-pended Bone Density Scan-orders in advised to schedule EXP 08/11/24 Medicare Advantage Annual Wellness Visit-today Mammogram-orders in advised to schedule EXP 01/02/2025 Medicare Annual Wellness (AWV) -today AULTMA Reason Onset Date Comments Colon Cancer Screening 03/17/2024 Reason Onset Date Comments Med Refill 04/05/2024 Reason Onset Date Comments Med Refill 04/10/2024 Reason Onset Date Comments Med Refill 05/08/2024 Reason Onset Date Comments Med Refill 05/15/2024 Reason Comments Gynecologic Exam Reason Onset Date Comments Recurrent Skin Infections 04/27/2024 Reason Onset Date Comments Med Refill 2024 Reason Onset Date Comments Med Refill 06/12/2024 Reason Onset Date Comments Med Refill 07/13/2024 Reason Onset Date Comments Med Refill 08/01/2024 Reason Onset Date Comments Med Refill 08/10/2024 Reason Onset Date Comments Med Refill 09/06/2024 Reason Onset Date Comments Referral 08/31/2024 Reason Onset Date Comments Med Refill 10/03/2024 Reason Onset Date Comments Med Refill 10/05/2024 Care Teams (unrecognized sec tion and content) Spot Billing Clerk Relationship Specialty Start Date End Date Galdino Keita MD [address] [place] [address] PCP - General Family Practice 12/24/09 Spot Billing Clerk Relationship Specialty Start Date End Date Toribio Ernandez MD [address] [place] [address] PCP - General Internal Medicine 08/12/21 Spot Billing Clerk Relationship Specialty Start Date End Date Toribio Ernandez MD [address] [place] [address], [place] [address] PCP - General Internal Medicine 08/12/21 Spot Billing Clerk Relationship Specialty Start Date End Date Toribio Ernandez MD [address] [place] [address], [place] [address] PCP - General Internal Medicine 08/12/21 Spot Billing Clerk Relationship Specialty Start Date End Date Toribio Ernandez MD [address] [place] [address], [place] [address] PCP - General Internal Medicine 08/12/21 Spot Billing Clerk Relationship Specialty Start Date End Date Toribio Ernandez MD [address] [place] [address], [place] [address] PCP - General Internal Medicine 08/12/21 Spot Billing Clerk Relationship Specialty Start Date End Date Toribio Ernandez MD [address] [place] [address], [place] [address] PCP - General Internal Medicine 08/12/21 Spot Billing Clerk Relationship Specialty Start Date End Date Toribio Ernandez MD [address] [place] [address], [place] [address] PCP - General Internal Medicine 08/12/21 Spot Billing Clerk Relationship Specialty Start Date End Date Toribio Ernandez MD [address] [place] [address], [place] [address] PCP - General Internal Medicine 08/12/21 Spot Billing Clerk Relationship Specialty Start Date End Date Toribio Ernandez MD [address] [place] [address], [place] [address] PCP - General Internal Medicine 08/12/21 Spot Billing Clerk Relationship Specialty Start Date End Date Toribio Ernandez MD [address] [place] [address], [place] [address] PCP - General Internal Medicine 08/12/21 Team Status: Active Member Role Status Dates Ottoniel Uriaspkins Family Provider Active [employer] SPOILAGE WORKER, SPOILAGE WORKER-C Primary Care Provider Active Team Status: Inactive Member Role Status Marvel Tea Ruiz SPOILAGE WORKER, SPOILAGE WORKER-C Primary Care Provider, Referring Provider Active Casi HERNANDEZ PA Attending Provider Active Team Status: Inactive Member Role Status Marvel Tea Ruiz SPOILAGE WORKER, SPOILAGE WORKER-C Primary Care Provider Active Dr. Sanjeev Jose MD Attending Provider Active Team Status: Active Member Role Status Marvel Tea Ruiz SPOILAGE WORKER, SPOILAGE WORKER-C Primary Care Provider Active Casi HERNANDEZ PA Attending Provider Active Team Status: Inactive Member Role Status Marvel Tea Ruiz SPOILAGE WORKER, SPOILAGE WORKER-C Primary Care Provider Active Dr. Rayo Merino MD Attending Provider Active [employer] SPOILAGE WORKER, SPOILAGE WORKER-C Referring Provider Active Team Status: Inactive Member Role Status Dates [employer] SPOILAGE WORKER, SPOILAGE WORKER-C Primary Care Provider, Referr ing Provider Active Dr. Rayo Merino MD Attending Provider Active Team Status: Inactive Member Role Status [employer] SPOILAGE WORKER, SPOILAGE WORKER-C Primary Care Provider Active Dr. Rayo Merino MD Attending Provider Active Team Status: Inactive Member Role Status Dates [employer] SPOILAGE WORKER, SPOILAGE WORKER-C Primary Care Provider, Referr ing Provider Active Dr. Rayo Cantu DO Attending Provider Active Team Status: Active Member Role Status Dates [employer] SPOILAGE WORKER, SPOILAGE WORKER-C Primary Care Provider Active SAW NGUYEN Attending Provider, Referring Provider A ctive Team Status: Inactive Member Role Status Dates [employer] SPOILAGE WORKER, SPOILAGE WORKER-C Primary Care Provider Active SAW NGUYEN Attending Provider, Referring Provider A ctive Team Status: Inactive Member Role Status Dates [employer] SPOILAGE WORKER, SPOILAGE WORKER-C Primary Care Provider Active Dr. Jimmy Crouch MD Emergency Provider Active Team Status: Inactive Member Role Status [employer] SPOILAGE WORKER, SPOILAGE WORKER-C Primary Care Provider Active Dr. Jimmy Crouch MD Attending Provider, Emergency Pro vider Active Team Status: Active Member Role Status Dates Ottoniel Uriaspkins Family Provider Active TEA LILLY Primary Care Provider Active Team Status: Inactive Member Role Status [employer] SPOILAGE WORKER, SPOILAGE WORKER-C Primary Care Provider Active Dr. Sanjeev Jose MD Attending Provider Active Team Status: Inactive Member Role Status Dates ASIM METCALF Primary Care Provider Active Dr. Yovani Rosario MD Attending Provider, Referring Pr ovider Active Spot Billing Clerk Relationship Specialty Start Date End Date Tea Lilly PA-C [address] [place] [address] Referring Family Medicine 11/17/22 Spot Billing Clerk Relationship Specialty Start Date End Date Juancho Goodman MD [address] [place] [address] PCP - General Family Medicine 11/24/22 Spot Billing Clerk Relationship Specialty Start Date End Date Juancho Goodman MD [address] [place] [address] PCP - General Family Medicine 11/24/22 Spot Billing Clerk Relationship Specialty Start Date End Date Juancho Goodman MD [address] [place] [address] PCP - General Family Medicine 11/24/22 Spot Billing Clerk Relationship Specialty Start Date End Date Juancho Goodman MD [address] [place] [address] PCP - General Family Medicine 11/24/22 Spot Billing Clerk Relationship Specialty Start Date End Date Juancho Goodman MD [address] [facility] [place] [address] PCP - General Family Medicine 11/24/22 Spot Billing Clerk Relationship Specialty Start Date End Date Juancho Goodman MD [address] [place] [address] PCP - General Family Medicine 11/24/22 Spot Billing Clerk Relationship Specialty Start Date End Date Juancho Goodman MD [address] [place] [address] PCP - General Family Medicine 11/24/22 Spot Billing Clerk Relationship Specialty Start Date End Date Juancho Goodman MD [address] [place] [address] PCP - General Family Medicine 11/24/22 Spot Billing Clerk Relationship Specialty Start Date End Date Juancho Goodman MD [address] [place] [address] PCP - General Family Medicine 11/24/22 Spot Billing Clerk Relationship Specialty Start Date End Date Juancho Goodman MD [address] [place] [address] PCP - General Family Medicine 11/24/22 Team Status: Active Member Role Status Dates Ottoniel Perez Family Provider Active Britta Carlottaenthal Primary Care Provider Active Team Status: Inactive Member Role Status Dates Dr. Rayo Cantu DO Attending Provider Active Team Status: Inactive Member Role Status Dates Dr. Sanjeev Jose MD Attending Provider Active Team Status: Inactive Member Role Status Dates Dr. Bianca Powers MD Emergency Provider Active Britta Bridenthal Primary Care Provider Active Spot Billing Clerk Relationship Specialty Start Date End Date Juancho Goodman MD [address] [place] [id number] PCP - General Family Medicine 11/24/22 Spot Billing Clerk Relationship Specialty Start Date End Date Juancho Goodman MD [address] [place] [id number] PCP - General Family Medicine 11/24/22 Spot Billing Clerk Relationship Specialty Start Date End Date Juancho Goodman MD [address] [facility] [place] [address] PCP - General Family Medicine 11/24/22 Spot Billing Clerk Relationship Specialty Start Date End Date Juancho Goodman MD [address] [facility] [place] [address] PCP - General Family Medicine 11/24/22 Spot Billing Clerk Relationship Specialty Start Date End Date Juancho Goodman MD [address] [facility] [place] [address] PCP - General Family Medicine 11/24/22 Spot Billing Clerk Relationship Specialty Start Date End Date Juancho Goodman MD [address] [facility] [place] [address] PCP - General Family Medicine 11/24/22 Spot Billing Clerk Relationship Specialty Start Date End Date Juancho Goodman MD [address] [facility] [place] [address] PCP - General Family Medicine 11/24/22 Spot Billing Clerk Relationship Specialty Start Date End Date Juancho Goodman MD [address] [facility] [place] [address] PCP - General Family Medicine 11/24/22 Spot Billing Clerk Relationship Specialty Start Date End Date Juancho Goodman MD [facility] [place] [address] PCP - General Family Medicine 11/24/22 Spot Billing Clerk Relationship Specialty Start Date End Date Juancho Goodman MD [address] [facility] [place] [address] PCP - General Family Medicine 11/24/22 Spot Billing Clerk Relationship Specialty Start Date End Date Juancho Goodman MD 25 [facility] [place] [address] PCP - General Family Medicine 11/24/22 Spot Billing Clerk Relationship Specialty Start Date End Date Juancho Goodman MD [address] [facility] [place] [address] PCP - General Family Medicine 11/24/22 Spot Billing Clerk Relationship Specialty Start Date End Date Juancho Goodman MD 25 [facility] [place] [address] PCP - General Family Medicine 11/24/22 Spot Billing Clerk Relationship Specialty Start Date End Date Juancho Goodman MD 25 [facility] [place] [address] PCP - General Family Medicine 11/24/22 Spot Billing Clerk Relationship Specialty Start Date End Date Juancho Goodman MD [address] [facility] [place] [address] PCP - General Family Medicine 11/24/22 Spot Billing Clerk Relationship Specialty Start Date End Date Juancho Goodman MD 25 [facility] [place] [address] PCP - General Family Medicine 11/24/22 Spot Billing Clerk Relationship Specialty Start Date End Date Juancho Goodman MD 25 [facility] [place] [address] PCP - General Family Medicine 11/24/22 Spot Billing Clerk Relationship Specialty Start Date End Date Juancho Goodman MD 25 [facility] [place] [address] PCP - General Family Medicine 11/24/22 Spot Billing Clerk Relationship Specialty Start Date End Date Juancho Goodman MD 25 [facility] [place] [address] PCP - General Family Medicine 11/24/22 Spot Billing Clerk Relationship Specialty Start Date End Date Juancho Goodman MD [address] [facility] [place] [address] PCP - General Family Medicine 11/24/22 Spot Billing Clerk Relationship Specialty Start Date End Date Juancho Goodman MD 25 [facility] [place] [address] PCP - General Family Medicine 11/24/22 Spot Billing Clerk Relationship Specialty Start Date End Date Juancho Goodman MD [address] [facility] [place] [address] PCP - General Family Medicine 11/24/22 Spot Billing Clerk Relationship Specialty Start Date End Date Juancho Goodman MD 25 [facility] [place] [address] PCP - General Family Medicine 11/24/22 Spot Billing Clerk Relationship Specialty Start Date End Date Juancho Goodman MD [address] [facility] [place] [address] PCP - General Family Medicine 11/24/22 Spot Billing Clerk Relationship Specialty Start Date End Date Juancho Goodman MD [address] [facility] [place] [address] PCP - General Family Medicine 11/24/22 Spot Billing Clerk Relationship Specialty Start Date End Date Juancho Goodman MD 25 [facility] [place] [address] PCP - General Family Medicine 11/24/22 Spot Billing Clerk Relationship Specialty Start Date End Date Juancho Goodman MD [address] [facility] [place] [address] PCP - General Family Medicine 11/24/22 Spot Billing Clerk Relationship Specialty Start Date End Date Juancho Goodman MD [address] [facility] [place] [address] PCP - General Family Medicine 11/24/22 Spot Billing Clerk Relationship Specialty Start Date End Date Juancho Goodman MD [address] [facility] [place] [address] PCP - General Family Medicine 11/24/22 Spot Billing Clerk Relationship Specialty Start Date End Date Juancho Goodman MD [address] [facility] [place] [address] PCP - General Family Medicine 11/24/22 Spot Billing Clerk Relationship Specialty Start Date End Date Juancho Goodman MD [facility] [place] [address] PCP - General Family Medicine 11/24/22 Spot Billing Clerk Relationship Specialty Start Date End Date Juancho Goodman MD [address] [facility] [place] [address] PCP - General Family Medicine 11/24/22 Spot Billing Clerk Relationship Specialty Start Date End Date Juancho Goodman MD [address] [facility] [place] [address] PCP - General Family Medicine 11/24/22 Spot Billing Clerk Relationship Specialty Start Date End Date Juancho Goodman MD 25 [facility] [place] [address] PCP - General Family Medicine 11/24/22 Spot Billing Clerk Relationship Specialty Start Date End Date Juancho Goodman MD [address] [facility] [place] [address] PCP - General Family Medicine 11/24/22 Spot Billing Clerk Relationship Specialty Start Date End Date Juancho Goodman MD 25 [facility] [place] [address] PCP - General Family Medicine 11/24/22 Spot Billing Clerk Relationship Specialty Start Date End Date Juancho Goodman MD [address] [facility] [place] [address] PCP - General Family Medicine 11/24/22 Spot Billing Clerk Relationship Specialty Start Date End Date Juancho Goodman MD [address] [facility] [place] [address] PCP - General Family Medicine 11/24/22 Spot Billing Clerk Relationship Specialty Start Date End Date Juancho Goodman MD [address] [facility] [place] [address] PCP - General Family Medicine 11/24/22 Spot Billing Clerk Relationship Specialty Start Date End Date Juancho Goodman MD [address] [facility] [place] [address] PCP - General Family Medicine 11/24/22 Spot Billing Clerk Relationship Specialty Start Date End Date Juancho Goodman MD [address] [facility] [place] [address] PCP - General Family Medicine 11/24/22 Spot Billing Clerk Relationship Specialty Start Date End Date Juancho Goodman MD [address] [facility] [place] [address] PCP - General Family Medicine 11/24/22 Spot Billing Clerk Relationship Specialty Start Date End Date Juancho Goodman MD [address] [facility] [place] [address] PCP - General Family Medicine 11/24/22 Spot Billing Clerk Relationship Specialty Start Date End Date Juancho Goodman MD [address] [facility] [place] [address] PCP - General Family Medicine 11/24/22 Spot Billing Clerk Relationship Specialty Start Date End Date Juancho Goodman MD [address] [facility] [place] [address] PCP - General Family Medicine 11/24/22 Spot Billing Clerk Relationship Specialty Start Date End Date Juancho Goodman MD [address] [facility] [place] [address] PCP - General Family Medicine 11/24/22 Spot Billing Clerk Relationship Specialty Start Date End Date Juancho Goodman MD [address] [facility] [place] [address] PCP - General Family Medicine 11/24/22 Spot Billing Clerk Relationship Specialty Start Date End Date Juancho Goodman MD [address] [facility] [place] [address] PCP - General Family Medicine 11/24/22 Spot Billing Clerk Relationship Specialty Start Date End Date Juancho Goodman MD [address] [facility] [place] [address] PCP - General Family Medicine 11/24/22 Spot Billing Clerk Relationship Specialty Start Date End Date Juancho Goodman MD [address] [facility] [place] [address] PCP - General Family Medicine 11/24/22 Spot Billing Clerk Relationship Specialty Start Date End Date Juancho Goodman MD [address] [facility] [place] [address] PCP - General Family Medicine 11/24/22 Spot Billing Clerk Relationship Specialty Start Date End Date Juancho Goodman MD [address] [facility] [place] [address] PCP - General Family Medicine 11/24/22 Britta Trinidad APRN - CNP [address] [place], [place] [address], [place] [address] Nurse Practitioner Nurse Practitioner Family 07/06/24 Spot Billing Clerk Relationship Specialty Start Date End Date Juancho Goodman MD 25 [place] [address] PCP - General Family Medicine 11/24/22 Britta Trinidad APRN - CNP [address] [place], [place] [address], [place] [address] Nurse Practitioner Nurse Practitioner [facility] 07/06/24 Spot Billing Clerk Relationship Specialty Start Date End Date Juancho Goodman MD 25 [place] [address] PCP - General Family Medicine 11/24/22 Britta Trinidad APRN - CNP [address] [place] [address], [place] [address] Nurse Practitioner Nurse Practitioner Family 07/06/24 Spot Billing Clerk Relationship Specialty Start Date End Date Juancho Goodman MD 25 [place] [address] PCP - General Family Medicine 11/24/22 Britta Trinidad APRN - CNP [address] [place] [address], [place] [address] Nurse Practitioner Nurse Practitioner Family 07/06/24 Team Status: Active Member Role/Relationship Status Dates Ottoniel Perez Family Provider Active Britta Trinidad Primary Care Provider Active Team Status: Inactive Member Role/Relationship Status Dates Britta Trinidad Primary Care Provider Active Start: September 11, 2024 End: September 11, 2024 Britta Trudy Referring Provider Active Sta rt: September 11, 2024 End: September 11, 2024 Shady Burks MD Attending Provider Active St art: September 11, 2024 End: September 11, 2024 Spot Billing Clerk Relationship Specialty Start Date End Date Juancho Goodman MD [address] [place] [id number] PCP - General Family Medicine 11/24/22 Britta Trinidad APRN - CNP [address] [place] [id number] Nurse Practitioner Nurse Practitioner Family 07/06/24 INFORMATION SOURCE (unrecogn ized section and content) DATE CREATED AUTHOR 11/16/2021 [facility] DATE CREATED AUTHOR AUTHOR'S ORGANIZ ATION 11/22/2022 [facility] DATE CREATED AUTHOR AUTHOR'S ORGANIZ ATION 10/18/2023 [facility] DATE CREATED AUTHOR AUTHOR'S ORGANIZ ATION 06/22/2024 [facility] DATE CREATED AUTHOR AUTHOR'S ORGANIZ ATION 09/28/2024 [facility] DATE CREATED AUTHOR AUTHOR'S ORGANIZ ATION 10/05/2024 [facility] Care Team (unrecognized sect ion and content) Care Team Personnel Name: SOLIS SHELL Position: P4 Advanced Practice Nurse Member Role: Primary Care Physician Address: Address: [address] [place] [id number] Care Team Related Persons Name: RADHA FRAGA Care Team Personnel Name: SOLIS SHELL Position: P4 Advanced Practice Nurse Member Role: Primary Care Physician Address: Address: [address] [place] [address] [place] [address]- Care Team Related Persons Name: RADHA FRAGA Care Team Personnel Name: SOLIS SHELL Position: P4 Advanced Practice Nurse Member Role: Primary Care Physician Address: Address: [address] [place] [address]- Care Team Related Persons Name: RADHA FRAGA Care Team Personnel Name: SOLIS SHELL Position: P4 Advanced Practice Nurse Member Role: Primary Care Physician Address: Address: [address] [place] [address]- Care Team Related Persons Name: RADHA FRAGA Care Team Personnel Name: SOLIS SHELL Position: P4 Advanced Cardiology Specialist Member Role: Primary Care Physician Address: Address: [address] [place] [address]- Care Team Related Persons Name: RADHA MONCADA [...] BE BASED ON THE PRIMARY CLINICAL RECORDS. [facility] [employer] [facility]. provides no warranty or guarantee of the accuracy or completeness of information in this document.
--- NOTE | 2024-10-07 07:41 | MRI_ITS ---
PROCEDURE: UPPER EXT JOINT ONLY(ROUTINE) 10/07/2024 REASON FOR EXAM: PAIN, EVAL THE CUFF TECHNIQUE: UPPER EXT JOINT ONLY(ROUTINE) Multiplanar and multisequence images were obtained without IV contrast administration. COMPARISON: COMPARISON: none FINDINGS: The supraspinatus tendon shows intrasubstance WI signal abutting its articular surface suggesting tendonitis with partial thickness tear. No evidence of complete fibers interruption. Intrasubstance high signal of the subscapularis tendon suggesting tendinosis with no evidence of complete fibers interruption. The teres minor and infraspinatus tendon appears intact. High signal and ill definition of the extra and intra-articular segment of the long head of biceps tendon with fluid signal distending its sheath. No obvious glenoid labral tears. 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 Intact glenohumeral joint. Mild glenohumeral joint effusion Fluid signal distending the subcoracoid and subacromial/subdeltoid bursa. Focal cortical irregularities and subcortical pseudocysts of the humeral head. No marrow infiltrative lesions. The neurovascular bundles appear unremarkable. 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 Supraspinatus tendonitis with partial thickness tear. Subscapularis tendonitis. Torn the long head of biceps tendon on top of tendonitis with tenosynovitis. Mild glenohumeral joint effusion with small subacromial/subdeltoid bursitis. Reading Location: [facility]
== END | disposition home or self-care (01) ==
LOC: MRI 07:32
PROVIDERS: Referring Provider Orthopaedic Surgery Sports Medicine; Visit Provider Orthopaedic Surgery Sports Medicine
DX: M25.511 Pain in right shoulder (principal)
CPT/HCPCS: 73221

== ENCOUNTER 2024-10-15 09:24 | Emergency (ER) | payer MEDICARE, SELFPAY ==
[2024-10-15 09:24] VITALS: BP 127/87; PULSE 67; RESP 17; TEMP 36.4; O2SAT 100
[2024-10-15 09:27] VITALS: BMI 25.3
--- NOTE | 2024-10-15 09:36 | EX.ED.DYSGE1 ---
HPI History of Present Illness Chief Complaint: Cellulitis [facility] Medical History (Updated 09/11/24 @ 14:31 by Shady Burks MD) Right shoulder pain Left rotator cuff tear arthropathy Vitamin D deficiency Soft tissue mass Right hip pain Osteoporosis Muscle spasms of both lower extremities Insomnia Golfers elbow of right upper extremity Depression with anxiety Carpal tunnel syndrome Blindness of left eye B12 deficiency Acid reflux High cholesterol Scleroderma History of chronic pain Home Medications ?Medication ?Instructions ?Recorded ?Last Taken ?Type amitriptyline 50 mg tablet 50 mg PO QHS 12/10/21 Unknown History atorvastatin 20 mg tablet 20 mg PO QHS 12/10/21 Unknown History dexlansoprazole 60 mg 60 mg PO DAILY 12/10/21 Unknown History capsule,biphase delayed release eszopiclone 3 mg tablet 3 mg PO QHS 12/10/21 Unknown History cetirizine 10 mg capsule (Zyrtec) 10 mg PO DAILY PRN PRN allergies 03/04/22 Unknown History cholecalciferol (vitamin D3) 1,250 1,250 mcg PO QWEEK 03/04/22 Unknown History mcg (50,000 unit) capsule fenofibric acid (choline) 45 mg 45 mg PO DAILY 03/04/22 Unknown History capsule,delayed release oxycodone-acetaminophen 5 mg-325 1 tab PO TID PRN 05/12/23 Unknown History mg tablet sulfamethoxazole 800 1 tab PO BID #14 TABLETS 01/22/24 Unknown Rx mg-trimethoprim 160 mg tablet Allergy/AdvReac Type Severity Reaction Status Date / Time duloxetine (From Cymbalta) Allergy Chest Verified 10/15/24 09:27 tightness trazodone Allergy Chest Verified 10/15/24 09:27 tightness tramadol AdvReac Other Verified 10/15/24 09:27 Family History Aunt Cancer lung Mother Diabetes Surgical History History of carpal tunnel surgery H/O eye surgery Hx of right knee surgery Social History household members: other details: step dad Smoking Status: Current every day smoker tobacco type: cigarettes alcohol intake: never substance use type: does not use what type of physical activity do you participate in: other details: stretches frequency: daily EXAM Physical Exam Const Vital Signs: 10/15/24 09:24 10/15/24 09:44 10/15/24 09:46 Temperature 97.6 F L 98.7 F 98.7 F Temperature Source Temporal Oral Pulse Rate 67 89 89 Respiratory Rate 17 18 18 Blood Pressure 127/87 H 129/82 H 129/82 H Blood Pressure Mean 100 97 97 Pulse Ox 100 100 100 Oxygen Delivery Method Room Air Room Air [facility] Narrative Medical decision making narrative: HISTORY OF PRESENT ILLNESS: Chief complaint: Cellulitis 54-year-old female history of hyperlipidemia, IBS presents concern for cellulitis. Notes she was diagnosed with cellulitis at outside hospital on Wednesday (10/13/2024). No she was started on doxycycline. She is currently on day 3 . Denies vomiting. Denies history of cancer or other immunocompromising state. Denies history of Haresh-en-Y gastric bypass or other significant GI manipulation. REVIEW OF SYSTEMS: Pertinent positives: Rash Pertinent negatives: Vomiting, fever PHYSICAL EXAM: Nursing triage notes reviewed, Vital signs reviewed Constitutional: please see [facility] Lungs: Clear to auscultation, No wheezing or rales. No increased work of breathing, no conversational dyspnea, no accessory muscle use, no nasal flaring. No respiratory distress noted Heart: Regular rate and rhythm, No murmurs, No rubs and No gallops, 2+ distal pulses (radial, femoral, posterior tibial) in all extremities Skin: Approximately 5 x 4 area of erythema noted to the left chest/axilla. No crepitus or bullae noted. No palpable abscess fluctuance induration. Some warmth noted. No obvious purulent drainage. 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 Exam with signs of cellulitis noted to left chest/left axilla. No palpable abscess crepitus bullae or signs of necrotizing fasciitis. Patient's vital signs were stable. She is afebrile. She has no SIRS criteria. She did not appear toxic. She had no signs of sepsis. Exam consistent with cellulitis. She is on appropriate anti-MRSA antibiotics. No indication for hospitalization at this time. I do not see a benefit of IV antibiotics or oral antibiotics in this clinical scenario. She is appropriate for discharge home with instructions to continue take doxycycline as prescribed. Zofran also prescribed if the patient becomes nauseous. Strict return precautions were discussed. The patient and/or family, caregivers express understanding. The patient and/or family, caregivers agrees with the plan. Shared decision making: I will have a discussion with the patient and or visitors regarding risk/benefits of further testing or admission. They will be made aware of of the risk/benefits inherent in this decision they will be given the opportunity to voice understanding. Total critical care time today provided was at least 0 minutes. This excludes separately billable procedures. Critical care time (if documented) is secondary to the patient having high probability of clinically significant/life threatening deterioration in the patient's condition which required my urgent intervention. Impression: 1. Cellulitis 2. History of MRSA Dispo: Discharge home This note was generated with [employer] dictation software. It may contain incorrect words, spelling, and punctuation that were not noted in review of the chart prior to signing. Discharge Plan Triage Chief Complaint: Cellulitis ED Provider: Ray Wilson Dx/Rx/DC Orders Prescriptions: No Action dexlansoprazole 60 mg capsule,biphase delayed releas 60 mg PO DAILY Patient Comments: TAKE 1 CAPSULE BY MOUTH ONCE DAILY amitriptyline 50 mg tablet 50 mg PO QHS eszopiclone 3 mg tablet 3 mg PO QHS Patient Comments: TAKE 1 TABLET BY MOUTH ONCE DAILY AT BEDTIME atorvastatin 20 mg tablet 20 mg PO QHS Patient Comments: TAKE 1 TABLET BY MOUTH AT BEDTIME cholecalciferol (vitamin D3) 1,250 mcg (50,000 unit) capsule 1,250 mcg PO QWEEK fenofibric acid (choline) 45 mg capsule,delayed release(DR/EC) 45 mg PO DAILY Zyrtec 10 mg capsule 10 mg PO DAILY PRN PRN (Reason: allergies) oxycodone-acetaminophen 5-325 mg tablet 1 tab PO TID PRN sulfamethoxazole-trimethoprim 800-160 mg tablet 1 tab PO BID Qty: 14 0RF Primary Care Provider: Jeri Yates Referrals: Jeri Yates [Primary Care Provider] - Print Language: Kazakh
[2024-10-15 09:44] VITALS: BP 129/82; PULSE 89; RESP 18; TEMP 37.1; O2SAT 100
[2024-10-15 09:46] VITALS: BP 129/82; PULSE 89; RESP 18; TEMP 37.1; O2SAT 100
--- OUTSIDE RECORDS SUMMARY | 2024-10-15 10:05 | XMS RPT_ITS | CCD ---
Author Organization 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 Sanjeev Jose Attending Provider SOLIS PAVON Primary Care Physician Joseph SCALE BALANCER, SCALE BALANCER-C Tae Primary Care Provider Joseph SCALE BALANCER, SCALE BALANCER-C Tea Referring Provider Genna HERNANDEZ PA Casi Attending Provider Dr. Sanjeev Jose Attending Provider Dr. Rayo Merino Attending Provider Umair LINDSEY, SCALE BALANCER-C Solis Referring Provider [phone] Umair SCALE BALANCER, SCALE BALANCER-C Solis Primary Care Provider Joseph SCALE BALANCER, SCALE BALANCER-C Tea Primary Care Provider Joseph SCALE BALANCER, SCALE BALANCER-C Tea Referring Provider MARY Pan Attending Provider [phone] Dr. Sanjeev Jose Attending Provider Dr. Rayo Merino Attending Provider Umair SCALE BALANCER, SCALE BALANCER-C Solis Referring Provider [phone] Umair SCALE BALANCER, SCALE BALANCER-C Solis Primary Care Provider Dr. Rayo Cantu Attending Provider [phone] Joseph SCALE BALANCER, SCALE BALANCER-C Tea Primary Care Provider MARY Pan Attending Provider [phone] VACCARELLI PA-C, TEA Primary Care Physician Umair SCALE BALANCER, SCALE BALANCER-C Solis Primary Care Provider Umair SCALE BALANCER, SCALE BALANCER-C Solis Referring Provider [phone] Dr. Rayo Cantu Attending Provider [phone] Dr. Sanjeev Jose Attending Provider [phone] Vaccarelli PA-C, Tea L Unavailable SABRINA TINEO Attending Unavailable Jose D Slaughter MD Primary Care Provider Dr. Rayo Cantu Attending Provider [phone] Dr. Sanjeev Jose Attending Provider [phone] PHYSICIAN, NONE Primary Care Physician Unavailab le BRIDENTHAL REINFORCING METAL WORKER/DIGITAL MEDIA STRATEGIST, JERI Attending Evelia vailable PHYSICIAN, NONE Primary Care Unavailable Bridenthal REINFORC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 STRATEGIST, Jeri Unavailable Bridenthal, Jeri Primary Care Provider Bridenthal, Jeri Referring Provider Shady Burks MD Attending Provider Bridenthal REINFORC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 STRATEGIST, Jeri Unavailable DELLAAL, JERI Attending Unavailable JOSE D SLAUGHTER Primary Care Unavailable ABILIOENTHAL, JERI Attending Unavailable JOSE D SLAUGHTER Primary Care Unavailable ESTEFANÍA VERA Attending Unavailable MAXINE, JOSE D Primary Care Unavailable BRIDENTHAL, JERI Attending Unavailable MAXINE, JOSE D Primary Care Unavailable BRIDENTHAL, JERI Attending Unavailable MAXINE, JOSE D Primary Care Unavailable BRIDENTHAL, JERI Attending Unavailable MAXINE, JOSE D Primary Care Unavailable BRIDENTHAL, JERI Attending Unavailable MAXINE, JOSE D Primary Care Unavailable Kimmie DASH, Shady Referring Provider BRIDENTHAL REINFORCING METAL WORKER/DIGITAL MEDIA STRATEGIST, JERI Primary Care Physic gabriel Bridenthal, Jeri Referring Unavailable Shady Burks Attending Unavailable Bridenthal, Jeri Primary Care Unavailable Bridenthal, Jeri Primary Care Unavailable Song Hampton Attending Unavailable Bridenthal, Jeri Referring Unavailable Rayo Cantu Attending Unavailable Bridenthal, Jeri Primary Care Unavailable Bridenthal, Jeri Referring Unavailable Bridenthal, Jeri Primary Care Unavailable Shady Burks Attending Unavailable Bridenthal, Jeri Referring Unavailable Shady Burks Attending Unavailable Bridenthal, Jeri Primary Care Unavailable Bridenthal, Jeri Primary Care Unavailable Shady Burks Attending Unavailable Shady Burks Referring Unavailable THANIA CLINTON DO Attending Unavailable PHYSICIAN, NONE Primary Care Unavailable PHYSICIAN, NONE Primary Care Unavailable SHANE DASH, DR BRANDI Miranda Attending Unavaila ble BRIDENTHAL REINFORCING METAL WORKER/DIGITAL MEDIA STRATEGIST, JERI Attending Evelia vailable PHYSICIAN, NONE Primary Care Unavailable BRIDENTHAL REINFORCING METAL WORKER/DIGITAL MEDIA STRATEGIST, JERI Primary Care Evelia vailable JAMEE DASH, MALVIN Michael Attending Unavail able ANSELMO DASH, NATASHA Cantrell Attending Unavailable PHYSICIAN, NONE Primary Care Unavailable Allergies Allergy Classification Reported Allergen(s) Allergy Type Date of Onset Reaction(s) Facility DULoxetine (2 sources) DULoxetine Drug Allergy 2 Other [facility] Opioid Agonists (2 sources) traMADol Drug Allergy 2 Other, Unknown [facility] Serotonin Reuptake Inhibitors (SSRIs) (2 sources) traZODone Drug Allergy 2 [facility] (20 sources) DULoxetine; Translations: [DULOXETINE] Drug Allergy 2 Other: See Comments, Other [facility] Work Phone: (20 sources) traMADol; Translations: [TRAMADOL] Drug Allergy 2 Other: See Comments, Other, Unknown [facility] Work Phone: (20 sources) traZODone; Translations: [TRAZODONE] Drug Allergy 2 Other: See Comments [facility] Work Phone: (1 source) Acetaminophen / oxyCODONE Drug Allergy 0 GI Upset [facility] (20 sources) DULoxetine Drug Allergy 4 Unknown [facility] (20 sources) Pregabalin Propensity to adverse reactions 4 [facility] (1 source) DULoxetine Drug Allergy 5 [facility] (1 source) traMADol Drug Allergy 5 [facility] (1 source) traZODone Drug Allergy 5 [facility] Medications Current Medications Medication Drug Class(es) [...] d/c., # 28 tab(s), 0 Refill(s), Pharmacy: [id number], Degenerative joint disease (DJD) of lumbar spine Left lumbosacral radiculopathy, 137, cm, 08/05/22 11:58:00 EDT, Height, 44.5, kg, 08/05/22 11:58:00 EDT, Dosing Weight Start Date: 08/05/22 Stop Date: 09/04/22 Status: Ordered Medication Dispense Status: Completed Quantity: 28.0 Unit: tab(s) Total Allowed Fills: 1 Fills Dispensed: 0 Indications: Radiculopathy, lumbosacral region; Spondylosis without myelopathy or radiculopathy, lumbar region; Start: 11-21-2021 End: 05-08-2022 Oxycodone-Acetaminophen (Per cocet) [...] Do not start before October 11, 2021. amitriptyline hydrochloride 50 mg oral tablet (20 sources) Tricyclic Antidepressant Start: 12-10-2021 End: 10-06-2024 amitriptyline 50 mg oral tablet Dose : 50 mg = 1 tab(s), Oral, qHS, # 30 tab(s), 3 Refill(s), [facility]: [id number], 137.2, cm, 08/11/22 13:50:00 EDT, Height, kg, 08/11/22 13:50:00 EDT, Dosing Weight Start Date: 08/11/22 Status: Ordered Medication Dispense Status: Completed Quantity: 30.0 Unit: tab(s) Total Allowed Fills: 4 Fills Dispensed: 0 Start: 06-29-2018 End: 08-12-2021 amitriptyline 50 mg oral tab let Dose : 50 mg = 1 tab(s), Oral, qHS, # 30 tab(s), 3 Refill(s), [facility]: [id number], 137.2, cm, 08/11/22 13:50:00 EDT, Height, kg, 08/11/22 13:50:00 EDT, Dosing Weight Start Date: 08/11/22 Status: Ordered Comment on above: Take 1 tablet by maura th daily at bedtime. 50 mg daily at bedti me. amLODIPine 5 mg oral tablet (20 sources) Dihydropyridine Calcium Channel Mckay Start: 07-21-2022 End: 01-17-2023 amLODIPine (Norvasc) 5 MG tablet 2.5 mg. 0 07/21/2022 Active Start: 07-21-2022 End: 11-24-2024 amLODIPine 5 mg oral tablet Dose : 5 mg = 1 tab(s), Oral, qDay, # 90 tab(s), 1 Refill(s), [id number], 137, cm, 06/29/22 12:16:00 EDT, Height, kg, 07/21/22 13:33:00 EDT, Dosing Weight Start Date: 07/21/22 Stop Date: 01/17/23 Status: Ordered Medication Dispense Status: Completed Quantity: 90.0 Unit: tab(s) Total Allowed Fills: 2 Fills Dispensed: 0 Start: 05-07-2022 End: 06-06-2022 amLODIPine 5 mg oral tablet Dose : 5 mg = 1 tab(s), Oral, qDay, # 30 tab(s), 0 Refill(s), Pharmacy: [id number], 137.2, cm, 05/02/22 3:41:00 EDT, [...] one tab a day. Take by mouth. atorvastatin 20 mg oral tablet (20 sources) HMG-CoA Reductase Inhibitor Start: 12-10-2021 Atorvastatin Active EACH PO December 09, 2021 11:00pm Start: 08-12-2021 End: 10-06-2024 atorvastatin 20 mg oral tabl et Dose : 20 mg = 1 tab(s), Oral, qDay, # 30 tab(s), 0 Refill(s) Start Date: 11/24/21 Status: Ordered Medication Dispense Status: Completed Quantity: 30.0 Unit: tab(s) Total Allowed Fills: 1 Fills Dispensed: 0 Comment on above: Take 1 tablet by maura th daily at bedtime. Take 20 mg by mouth daily at bedtime. 24 hr buPROPion hydrochloride 150 mg extended release oral tablet (20 sources) Aminoketone Start: End: take 1 tablet by mouth every hour, then take 1 tablet by mouth every twenty-four hours buPROPion 150 mg/24 hours (XL) oral tablet, extended release Dose : 150 mg = 1 tab(s), Oral, q24h, # 90 tab(s), 1 Refill(s), Pharmacy: [facility] #[id number], 137, cm, 06/29/22 12:16:00 EDT, Height Start Date: 07/21/22 Stop Date: 01/17/23 Status: Ordered Start: 07-21-2022 End: 12-09-2023 take 1 tablet by mouth once daily buPROPion XL (Wellbutrin XL) 150 MG 24 hr tablet Take 150 mg by mouth daily. 07/21/2022 12/09/2023 Discontinued (Ineffective) Start: 12-09-2021 End: 02-07-2022 Bupropion Hcl Active TAB PO December 09, 2021 11:00pm cetirizine hydrochloride 10 mg oral tablet (20 sources) Histamine-1 Receptor Antagonist Start: 04-30-2022 End: 12-09-2023 Zyrtec 10 mg oral tablet Dose : 10 mg = 1 tab(s), Oral, qDay, PRN as needed for allergy symptoms Start Date: 04/30/22 Status: Ordered Medication Dispense Status: Completed Total Allowed Fills: 1 Fills Dispensed: 0 Start: 03-04-2022 take 1 capsule by [facility] once daily as needed Cetirizine (Zyrtec) 10 mg capsule Active 10 mg PO DAILY NEEDED as needed for allergies March 04, 2022 1:00am Start: 06-29-2018 Zyrtec 10 mg o ral tablet Dose : 10 mg = 1 tab(s), Oral, qDay, # 30 tab(s), 0 Refill(s) Start Date: 06/29/18 Status: Ordered cholecalciferol 1.25 mg oral capsule (20 sources) [...] qWeek, # 13 cap(s), 3 Refill(s), Pharmacy: [id number], 138, cm, 02/02/22 13:31:00 EST, [...] 09, 2021 11:00pm Start: 05-19-2021 End: 05-15-2024 dexlansoprazole 60 mg oral d elayed release capsule Dose : 60 mg = 1 cap(s), Oral, qDay, # 90 cap(s), 3 Refill(s), Pharmacy: [id number], 138, cm, 11/24/21 13:21:00 EDT, Height Start Date: 11/24/21 Stop Date: 11/19/22 Status: Ordered Medication Dispense Status: Completed Quantity: 90.0 Unit: cap(s) Total Allowed Fills: 4 Fills Dispensed: 0 Comment on above: 60 mg once daily. Dexlansoprazole 60 mg capsule,biphase delayed releas (2 sources) Start: take 1 capsule by mouth once daily Dexlansoprazole 60 mg capsule,biphase delayed releas Active 60 mg PO DAILY December 10, 2021 12:00am diclofenac sodium 50 mg delayed release oral tablet (10 sources) Nonsteroidal Anti-inflammatory Drug Start: End: diclofenac, EC, (VOLTAREN) 50 mg EC tablet 50 mg twice daily. 0 06/03/2021 11/06/2021 Discontinued Comment on above: 50 mg twice daily. DME MISCellaneous (11 sources) Start: 023 take 730 [IU] rectal route every month [...] hip, 44.5 Start Date: 02/25/22 Status: Ordered Medication Dispense Status: Completed Quantity: 1.0 Unit: EA Total Allowed Fills: 1 Fills Dispensed: 0 Indications: Unilateral primary osteoarthritis, right hip; Start: 02-25-2022 take 730 [IU] rectal route every month [...] month rent... Start Date: 02/25/22 Status: Ordered doxycycline hyclate 100 mg oral capsule (7 sources) Tetracycline-class Drug Start: 10-13-2024 End: 10-23-2024 doxycycline hyclate 100 mg oral capsule Dose : 100 mg = 1 cap(s), Oral, BID, X 10 day(s), # 20 cap(s), 0 Refill(s), 10/23/24 10:26:00 AM EDT, 45.4 Start Date: 10/13/24 Stop Date: 10/23/24 Status: Ordered Medication Dispense Status: Completed Quantity: 20.0 Unit: cap(s) Total Allowed Fills: 1 Fills Dispensed: 0 End: 10-06-2021 take 2 tablets by mouth once daily doxycycline 100 mg ORAL tablet takes two tabs a day. 0 10/06/2021 Discontinued Comment on above: takes two tabs a day . ertapenem 1000 mg injection (2 sources) Penem Antibacterial Start: End: take 1 dose intravenously once daily Invanz 1 g (Disch Rx) Dose : 1 gram(s) =, IV Piggyback, qDay, # 14 EA, 0 Refill(s), 05/22/22 14:00:00 EDT, other reason (Rx), 44.8 Start Date: 05/07/22 Stop Date: 05/22/22 Status: Ordered eszopiclone 3 mg oral tablet (20 sources) Start: End: take 1 tablet by mouth once daily [...] End: 12-21-2023 take 1 tablet by mouth once daily at bedtime eszopiclone 3 mg oral tablet TAKE 1 TABLET BY MOUTH EVERY DAY AT BEDTIME FOR 30 DAYS Start Date: 06/29/22 Status: Ordered Medication Dispense Status: Completed Total Allowed Fills: 1 Fills Dispensed: 0 Comment on above: daily at bedtime. Take 1 tablet by maura th daily at bedtime for 180 days. 24 hr etodolac 400 mg extended release oral tablet (8 sources) Nonsteroidal Anti-inflammatory Drug Start: 11-21-2021 End: 11-24-2022 etodolac 400 mg oral tablet, extended release Dose : 400 mg = 1 tab(s), Oral, qDay, # 30 tab(s), 0 Refill(s) Start Date: 12/17/21 Status: Ordered Start: 11-21-2021 take 1 tablet by [facility] once daily for pain etodolac (LODINE-XL) 400 mg 24 hr tablet Indications: Chronic pain syndrome , Personal history of scleroderma , Acquired arm deformity, left , Acquired deformity of left lower leg Take 1 tablet by mouth once daily. For pain. Take with food 30 tablet 0 11/21/2021 Active Comment on above: Take 1 tablet by [facility] once daily. For pain. Take with food fenofibric acid 45 mg delayed release oral capsule (20 sources) Peroxisome Proliferator Receptor alpha Agonist Start: 08-13-19 End: 11-25-19 fenofibric acid 45 mg oral delayed release capsule Dose : 45 mg = 1 cap(s), Oral, qDay Start Date: 11/24/21 Status: Ordered Medication Dispense Status: Completed Total Allowed Fills: 1 Fills Dispensed: 0 Comment on above: Take 1 capsule by [facility] once daily. Take 45 mg by mouth once daily. lactobacillus acidophilus 0.2 mg / lactobacillus bulgaricus 0.2 mg oral tablet (2 sources) Start: 05-08-19 End: 05-18-19 take 1 tablet by mouth three times daily lactobacillus acidophilus and bulgaricus oral tablet Dose = 1 tab(s), Oral, TID, X 10 day(s), # 30 tab(s), 0 Refill(s), Pharmacy: [id number], 137.2, cm, 05/02/22 3:41:00 EDT, Height Start Date: 05/07/22 Stop Date: 05/17/22 Status: Ordered Misc Medication (4 sources) Start: 12-18-19 Misc Medication patient uses CBD vape pen- unsure about THC component, 0 Refill(s), 46.3 Start Date: 12/17/21 Status: Ordered mupirocin 0.02 mg/mg topical ointment (4 sources) RNA Synthetase Inhibitor Antibacterial Start: 04-29-19 End: 05-09-19 mupirocin 2% topical ointment Apply 1 maria ines, Topical, TID, apply a thin film to left arm, X 10 day(s), # 22 gram(s), 0 Refill(s), Pharmacy: [id number], Ointment, 137, cm, 04/27/22 15:04:00 EDT, Height, 44 Start Date: 04/28/22 Stop Date: 05/08/22 Status: Ordered Start: 12-30-2021 End: 01-04-2022 mupirocin 2% topical ointmen t Apply 1 maria ines, Topical, TID, X 5 day(s), # 22 gram(s), 0 Refill(s), Pharmacy: [id number], Ointment, 138, cm, 12/17/21 12:12:00 [...] Antifungal Start: 01-11-2024 End: 01-10-2025 nystatin (Mycostatin) 050858 UNIT/GM powder Indications: Yeast dermatitis Apply topically 3 times daily. 60 g 1 01/11/2024 01/10/2025 Active ondansetron 4 mg oral tablet (4 sources) Serotonin-3 Receptor Antagonist Start: 08-11-2022 take 1 tablet by mouth every eight hours as needed for nausea Zofran ODT use ondansetron oral tablet, disintegrating Dose : 4 mg =, Oral, q8h, PRN as needed for nausea/vomiting, # 30 tab(s), 1 Refill(s) Start Date: 08/11/22 Status: Ordered Medication Dispense Status: Completed Quantity: 30.0 Unit: tab(s) Total Allowed Fills: 2 Fills Dispensed: 0 Start: 08-11-2022 End: 11-24-2022 ondansetron ODT (Zofran-ODT) [...] mg / trimethoprim 160 mg oral tablet (2 sources) Dihydrofolate Reductase Inhibitor Antibacterial, Sulfonamide Antimicrobial Start: 01-22-2024 Sulfamethoxazole-Trimethopri m 800-160 mg tablet Active 1 {tbl} PO TWICE A DAY 14 0 January 22, 2024 1:00am tiZANidine 4 mg [...] spasm, # 180 tab(s), 0 Refill(s), Pharmacy: [facility] #[id number], 137.2, cm, 08/11/22 13:50:00 EDT, Height, kg, 10/22/22 15:34:00 EDT, Dosing Weight Start Date: 10/22/22 Stop Date: 01/20/23 Status: Ordered Medication Dispense Status: Completed Quantity: 180.0 Unit: tab(s) Total Allowed Fills: 1 Fills Dispensed: 0 Start: 07-21-2022 End: 10-19-2022 Zanaflex 4 mg oral tablet Do se : 8 mg = 2 tab(s), Oral, qHS, PRN Muscle spasm, # 180 tab(s), 0 Refill(s), Pharmacy: [facility] #[id number], 137, cm, 06/29/22 12:16:00 EDT, Height Start [...] a day as needed. Take by mouth. cephalexin 500 mg oral capsule (20 sources) Cephalosporin Antibacterial Start: End: take 1 capsule by mouth every six hours Cephalexin 500 mg capsule Discontinued 500 mg PO EVERY 6 HOURS 28 0 January 22, 2024 1:00am September 11, 2024 2:29pm Start: 04-28-2022 End: 05-08-2022 cephalexin 500 mg oral capsu le Dose : 500 mg = 1 cap(s), Oral, QID, X 10 day(s), # 40 cap(s), 0 Refill(s), 05/08/22 11:24:00 EDT, Pharmacy: [id number], 137, cm, 04/27/22 15:04:00 EDT, [...] on above: Take 1 capsule by mo [facility] three times daily for 7 days. cyclobenzaprine hydrochloride 5 mg oral tablet (6 [...] Date: 02/02/22 Stop Date: 01/28/23 Status: Ordered escitalopram 10 mg oral tablet (15 sources) Serotonin Reuptake Inhibitor Start: 08-12-2021 End: 11-24-2022 take 1 tablet by mouth in the morning escitalopram (Lexapro) 10 MG tablet Take 10 mg by mouth in the morning. 0 08/12/2021 11/24/2022 Discontinued (Therapy completed) Comment on above: Take 1 tablet by maura once daily. Take 10 mg by mouth [...] on above: Take 1 tablet by maura four times daily as needed. Take 25 [...] (MEDROL DOSE-PACK) 4 mg Dose-Pack polymyxin b 67618 unt/ml / trimethoprim 1 mg/ml ophthalmic solution [...] [Essential (primary) hypertension] Onset: 3 07-21-2022 Chronic Hemorrhoids (20 sources) Hemorrhoids; Translations: [Unspecified hemorrhoids] Onset: 3 03-17-2022 Episodic Malaise and fatigue (2 sources) Fatigue; Translations: [Other fatigue] 08-12-2023 Episodic Miscellaneous mental health disorders (4 sources) Primary insomnia; Translations: [Primary insomnia] 07-28-2023 Chronic Mood disorders (20 sources) Depressive disorder; Translations: [Depression, unspecified] Onset: 3 Chronic Nausea and vomiting (20 sources) Nausea; Translations: [Nausea] Onset: 3 Resolved: 4 08-11-2022 Episodic Nutritional deficiencies (20 sources) Vitamin D deficiency; Translations: [Vitamin D deficiency, unspecified] Onset: 3 02-04-2022 Chronic Nutritional deficiencies (20 sources) Cobalamin deficiency; Translations: [Deficiency of other specified B group vitamins] Onset: 2 Episodic Open wounds of extremities (17 sources) Open wound of left forearm; Translations: [...] Onset: 4 06-01-2023 Chronic Other acquired deformities (2 sources) Scoliosis of lumbar spine; Translations: [Scoliosis, unspecified] 05-14-2023 Chronic Other aftercare (1 source) Long-term current use of opiate analgesic drug; Translations: [jail (current) use of opiate analgesic] Episodic Other aftercare (1 source) jail (current) use of opiate analgesic; Translations: [safety assistant (current) use of opiate analgesic] Onset: 2 Episodic Other and unspecified benign neoplasm (20 sources) Enchondroma of bone; Translations: [Benign neoplasm of bone and articular cartilage, unspecified] Onset: 3 04-13-2022 Episodic Comment on above: R femoral head-stabl e. Other and unspecified benign neoplasm (20 sources) Benign neoplasm of bone and articular cartilage, unspecified; Translations: [Benign neoplasm of bone and articular cartilage, site unspecified] 04-13-2022 Episodic Other bone disease and musculoskeletal deformities (13 sources) Lesion of right thigh bone 02-27-2022 Episodic Other circulatory disease (1 source) Elevated blood-pressure reading without diagnosis of hypertension; Translations: [Elevated blood-pressure reading, without diagnosis of hypertension] Episodic Other congenital anomalies (20 sources) Osteosclerosis; Translations: [Osteopetrosis] 03-19-2022 Chronic Comment on above: R neck of femur. She had MRI done in [place] Other congenital anomalies (18 sources) Osteopetrosis; Translations: [...] of synovium and tendon, unspecified shoulder] Onset: 3 12-10-2021 Episodic Other connective tissue disease (20 sources) Bursitis of right hip; Translations: [Other bursitis of hip, right hip] 04-13-2022 Episodic Other connective tissue disease (20 sources) Other bursitis of hip, right hip; Translations: [Enthesopathy of hip region] 04-13-2022 Episodic Other connective tissue disease (1 source) Pain in left arm; Translations: [Pain in left arm] Episodic Other connective tissue disease (4 sources) Pain in lower limb; Translations: [Pain in leg, unspecified] 06-24-2022 Episodic Other connective tissue disease (20 sources) Iliotibial band friction syndrome of right knee; Translations: [Iliotibial band syndrome, right leg] Onset: 3 06-24-2022 Episodic Other connective tissue disease (2 sources) Iliotibial band syndrome, right leg; Translations: [Other disorders of muscle, ligament, and fascia] 06-24-2022 Episodic Other connective tissue disease (5 sources) Bursitis of right shoulder; Translations: [Bursitis of right shoulder] 12-10-2021 Episodic Other connective tissue disease (2 sources) Rotator cuff arthropathy of left shoulder; Translations: [...] without diarrhea] Onset: 3 03-19-2022 Chronic Other gastrointestinal disorders (20 sources) Constipation; Translations: [Constipation, unspecified] Onset: 3 Resolved: 4 11-26-2021 Episodic Other inflammatory condition of skin [...] Other nervous system disorders (1 source) 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; Translations: [Personal history of other diseases of the nervous system and sense organs] Episodic Other non-traumatic joint disorders (5 sources) Hip pain 02-04-2022 Episodic Other non-traumatic joint disorders (20 sources) Pain in left shoulder; Translations: [Pain in joint, shoulder region] Onset: 3 02-03-2023 Episodic Other non-traumatic joint disorders (5 sources) Pain in right shoulder; Translations: [Right shoulder pain] Onset: 5 09-11-2024 Episodic Other skin disorders (20 sources) Linear scleroderma; 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] Onset: 3 Resolved: 4 11-24-2022 Chronic Other skin disorders (1 source) Linear scleroderma; 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] Onset: 4 Chronic Other skin disorders (2 sources) Foot callus; Translations: [Corns and callosities] Episodic Other skin disorders (17 sources) Mass of soft tissue 12-09-2021 Episodic Otitis media and related conditions (1 source) Infection of ear; Translations: [Otitis media, unspecified, unspecified ear] Episodic Residual codes; unclassified (20 sources) Insomnia; Translations: [Insomnia, unspecified] Onset: 3 Episodic Residual codes; unclassified (17 sources) Chronic pain 11-26-2021 Episodic Residual codes; unclassified (17 sources) Postmenopausal state 11-26-2021 Episodic Residual codes; unclassified (1 source) Tobacco user; Translations: [Tobacco use] Onset: 3 Episodic Residual codes; unclassified (2 sources) Insomnia, unspecified; Translations: [Insomnia, unspecified] Onset: 3 Episodic Skin and subcutaneous tissue infections (20 sources) Cellulitis of lower leg; Translations: [Cellulitis of right lower limb] Onset: 3 Episodic Spondylosis; intervertebral disc disorders; other back problems (20 sources) Lumbar spondylosis; Translations: [Spondylosis without myelopathy or radiculopathy, lumbar region] Onset: 2 Chronic Spondylosis; intervertebral disc disorders; other back problems (20 sources) Lumbar radiculopathy; Translations: [Neck pain] Onset: 3 02-25-2022 Episodic Substance-related disorders (20 sources) Tobacco user; Translations: [...] unspecified] Onset: 3 Resolved: 3 Chronic Unclassified (17 sources) Vaccination needed 11-26-2021 Unclassified (15 sources) Body mass index 20-24 - normal 01-13-2022 Unclassified (20 sources) Patient encounter status 01-13-2022 Unclassified (1 source) Bilateral chronic pain of upper limbs 09-01-2024 Unclassified (1 source) Low back pain, unspecified; Translations: [Low back pain, unspecified] Onset: 3 Unclassified (2 sources) New Patient; Translations: [New Patient] Onset: 4 Viral infection (20 sources) Disease caused by 2019-nCoV; Translations: [COVID-19] Onset: 4 Resolved: 4 02-15-2023 Episodic Past or Other Problems Problem Classification Problem Date Documented Date Episodic/Chronic Cancer of breast (20 sources) Personal [...] Headache; Translations: [Headache] Onset: 11-24-2022 11-24-2022 Episodic Immunizations and screening for infectious disease [...] nail] Onset: 01-11-2024 Resolved: 03-14-2024 01-11-2024 Episodic Other acquired deformities (20 sources) Acquired [...] (acquired), unspecified site] Onset: 10-06-2023 Episodic Other connective tissue disease (20 sources) [...] Onset: 01-06-2023 Resolved: 11-03-2023 01-06-2023 Episodic Other non-traumatic joint disorders (20 sources) Pain in right hip joint; Translations: [Pain in right hip] Onset: 01-30-2022 11-24-2022 Episodic Other nutritional; endocrine; and metabolic disorders (14 sources) H/O: raised blood lipids; Translations: [Personal history of other endocrine, nutritional and metabolic disease] Onset: 08-12-2021 Episodic Other screening for suspected conditions (not mental disorders or infectious disease) (20 sources) Cancer cervix screening status; Translations: [Encounter for screening for malignant neoplasm of cervix] Onset: 11-03-2023 Episodic Other skin disorders (20 sources) Pimple [...] 05-31-2024 Episodic Residual codes; unclassified (20 sources) Past history of procedure; Translations: [Other specified postprocedural states] Onset: 02-24-2022 Episodic Residual codes; unclassified (20 sources) Body mass index 20-24 - normal; Translations: [Body mass index (BMI) of 20 to 24] Onset: 11-24-2022 11-24-2022 Episodic Unclassified (1 source) Low back pain, unspecified; Translations: [Low back pain, unspecified] Onset: 01-11-2024 Results Test Name Value Interpretation Reference Range Facility Magnetic resonance imaging r eportOrdered By: Joelle Muller on 10-09-2024 Study report [facility] Imaging Services [address] [place] [address] Upper Ext Joint Only(Routine) MR#: [id number] Acct: [id number] Name: SUE MONCADA Rep #: [id number] : 1970 F 54 From: Leslie Muller MD PCP: Jeri Trinidad Status: REG CLI Study:Upper Ext Joint Only(Routine) Date of Exam: 10/07/24 Exam# [id number] Ordering Dr: Shady Burks MD PROCEDURE: UPPER EXT JOINT ONLY(ROUTINE) 10/07/2024 REASON FOR EXAM: PAIN, EVAL THE CUFF TECHNIQUE: UPPER EXT JOINT ONLY(ROUTINE) Multiplanar and multisequence images were obtained without IV contrast administration. COMPARISON: COMPARISON: none FINDINGS: The supraspinatus tendon shows intrasubstance WI signal abutting its articular surface suggesting tendonitis with partial thickness tear. No evidence of complete fibers interruption. Intrasubstance high signal of the subscapularis tendon suggesting tendinosis with no evidence of complete fibers interruption. The teres minor and infraspinatus tendon appears intact. High signal and ill definition of the extra and intra-articular segment of the long head of biceps tendon with fluid signal distending its sheath. No obvious glenoid labral tears. 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 Intact glenohumeral joint. Mild glenohumeral joint effusion Fluid signal distending the subcoracoid and subacromial/subdeltoid bursa. Focal cortical irregularities and subcortical pseudocysts of the humeral head. No marrow infiltrative lesions. The neurovascular bundles appear unremarkable. 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 Supraspinatus tendonitis with partial thickness tear. Subscapularis tendonitis. Torn the long head of biceps tendon on top of tendonitis with tenosynovitis. Mild glenohumeral joint effusion with small subacromial/subdeltoid bursitis. Reading Location: [place] [address] CC: Dr. Shady Burks MD; Jeri Trinidad ~ Associate Professor Of Psychology: Signed [facility] Upper Ext Joint Only(Routine )on 10-07-2024 Upper Ext Joint Only(Routine) [facility] Imaging Services [address] [place], [place] [id number] Upper Ext Joint Only(Routine) MR#: [id number] Acct: [id number] Name: SUE MONCADA Rep #: [id number] : 1970 F 54 From: Joelle valle MD PCP: Jeri Trinidad Status: REG CLI Study: Upper Ext Joint Only(Routine) Date of Exam: 0 10/07/24 Exam# [id number] Ordering Dr: Shady Burks MD PROCEDURE: UPPER EXT JOINT ONLY(ROUTINE) 10/07/2024 REASON FOR EXAM: PAIN, EVAL THE CUFF TECHNIQUE: UPPER EXT JOINT ONLY(ROUTINE) Multiplanar and multisequence images were obtained without IV contrast administration. COMPARISON: COMPARISON: none FINDINGS: The supraspinatus tendon shows intrasubstance WI signal abutting its articular surface suggesting tendonitis with partial thickness tear. No evidence of complete fibers interruption. Intrasubstance high signal of the subscapularis tendon suggesting tendinosis with no evidence of complete fibers interruption. The teres minor and infraspinatus tendon appears intact. High signal and ill definition of the extra and intra-articular segment of the long head of biceps tendon with fluid signal distending its sheath. No obvious glenoid labral tears. 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 Intact glenohumeral joint. Mild glenohumeral joint effusion Fluid signal distending the subcoracoid and subacromial/subdeltoid bursa. Focal cortical irregularities and subcortical pseudocysts of the humeral head. No marrow infiltrative lesions. The neurovascular bundles appear unremarkable. 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 Supraspinatus tendonitis with partial thickness tear. Subscapularis tendonitis. Torn the long head of biceps tendon on top of tendonitis with tenosynovitis. Mild glenohumeral joint effusion with small subacromial/subdeltoid bursitis. Reading Location: [place] [address] CC: Dr. Shady Burks MD; Jeri Trinidad Associate Professor Of Psychology: Signed [facility] 36on 10-06-2024 36 Reviewed chart. Refi ll appropriate. RX sent. [facility] 36 Prescription Request : ATORVASTATIN 20 MG TABLET AMITRIPTYLINE HCL 50 MG TAB Last medication check: 08/30/24 Last physical exam: 03/14/24 Next scheduled appointment: 11/30/24 Last date of refill on this medication Atorvastatin - 04/04/24 ( qty 90 refill 1) Amitryptyline - 04/14/24 ( qty 90 refill 1) [facility] 36 Routing to correct office. [facility] 36 Reviewed chart. Refi ll appropriate. RX sent. [facility] 36 Prescription Request : oxyCODONE-acetaminophe n (Percocet) 5-325 MG tablet Last medication check: 08/30/24 Last physical exam: 03/14/24 Next scheduled appointment: 11/30/24 CSA on file (date): 06/13/24 Last urine drug screen: 05/31/24 Last date of refill on this medication 09/07/24 ( qty 90 refill 0) [facility] 36on 10-04-2024 36 Reviewed chart. Refi ll appropriate. RX sent. [facility] 36 Prescription Request : Last medication check: 08/30/2024 Last physical exam: 03/14/2024 Next scheduled appointment: 11/30/2024 CSA on file (date): 01/11/2024 Last urine drug screen: 05/31/2024 Last date of refill on this medication: 08/30/2024 [facility] 36on 09-29-2024 36 Not due for a refill until the end of October. [facility] Orthopedic Visit Reporton Orthopedic Visit Report [facility] [address] [place] [address] OFFICE VISIT Date of Service: 09/11/24 MR#: [id number] Acct: [id number] Name: SUE MONCADA Rep #: [id number] : 1970 Provider: Dr. Shady rojas MD Age/Sex: 54/F Location: [facility] Status: Signed Intake Vital Signs 01/22/24 10:21 [...] by me, Dr. Shady Burks MD 09/11/24 1730. Part of today???s visit was documented by [ ], acting as scribe. SUE MONCADA is a 54 year old F here today for R shoulder pain. Wants a cortisone injection. Ongoing pain mostly on the lateral side worse with lifting. The patient has previously seen me for left side injection. They had cortisone injections back in the fall as well that seems to be helpful. 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 Office Procedures Ortho Injections [...] Performing Provider: Shady Burks MD Performing Location: [facility] Administered by: Shady Burks MD on 09/11/24 14:45 Dose Route Admin Location Dispensed Lot Number Expiration Date NDC Man ufacturer 40 mg intra-articular Right shoulder 1 mL [id number] 09/15/26 2140-7013-67 [facility] Supplemental Info [facility] [address] [place] [address] Shoulder min 2 Views MR#: [id number] Acct: [id number] Name: SUE MONCADA Rep #: [id number] : 1970 F 52 From: Alex Oseguera DO PCP: Status: DEP AMB Study: Shoulder min 2 Views Date of Exam: 12/23/22 Exam# [id number] Ordering Dr: Rayo Cantu DO [id number] EXAM: XR RIGHT SHOULD (more content not included)... [facility] 36on 09-07-2024 36 Reviewed chart. Refi ll appropriate. RX sent. [facility] 36 Reviewed chart. Refi ll appropriate. RX sent. [place] [address] Prescription Request : TIZANIDINE HCL 4 MG TABLET Last medication check: 08/30/24 Last physical exam: 03/14/24 Next scheduled appointment: 11/30/24 Last date of refill on this medication 03/14/24 ( qty 90 refill 1) [facility] 36 Prescription Request : oxyCODONE-acetaminophe n (Percocet) 5-325 MG tablet Last medication check: 08/30/24 Last physical exam: 03/14/24 Next scheduled appointment: 11/30/24 Last date of refill on this medication 08/10/24 ( qty 90 refill 0) [place] [address]on 09-04-2024 36 Not due for a refill until the end of September. [facility] 36 Prescription Request : Last medication check: 08/30/24 Last physical exam: 03/14/24 Next scheduled appointment: 11/30/24 Last date of refill on this medication 04/14/24 90 and 1 refill [facility] 36on 08-31-2024 36 Please sign new referral. [facility] Office Visiton 08-30-2024 Follow-up visit [id number] Irvin Moncada 1970 F Date Provider Department Center 08/30/2024 [id number] URBINA [facility] Family History Problem Relation Age of Onset Arthritis Mother Diabetes Mother Hyperlipidemia Mother Kidney disease Mother Cirrhosis Father Alcohol abuse Father Family Status - Relation Status Age at Mother Father Level of Service:[address]50 [place] OFFICE/OUTPATIENT ESTABLISHED MOD MDM 30 MIN Reason for Visit and Comments: Medication Check [[id number]] [facility] Progress Noteon 08-30-2024 Progress Note Will treat for acute flareup with short burst of steroids. No red flags [facility] Progress Note Needs to get DEXA completed [facility] Progress Note Needs to get her DEX A scan completed [facility] Progress Note Last Pap smear unsatisfactory. Due to patient's anatomy and scleroderma, provider was unable to use speculum and did not get a satisfactory she is low risk, no longer sexually active. No history of abnormal Pap smears. She has the option to discontinue her cervical cancer screenings or we can refer her to a industrial eng, patient states she will let us know what she decides to do [facility] Progress Note Patient was identifi ed by [...] and no further flushing needed. Charged [facility] Progress Note 08/30/2024 Sue Moncada (: 1970) is a 54 y.o. [...] or we can refer her to a industrial eng, patient states she will let us know what she decides to do 6. Chronic pain syndrome Assessment & Plan: Continue Percocet 5-3 25 every 8 hours as needed for severe pain. OARRS reviewed and consistent with treatment plan. CS MA is in place. Will see if we can find a palliative provider in the [place] to better help manage her symptoms. [...] pulses. Heart so (more content not included)... [facility] 36on 08-21-2024 36 PA closed 08/01 not required for patient/medication [facility] 36on 08-10-2024 36 Reviewed chart. Refi ll appropriate. RX sent. [facility] 36 Prescription Request : oxyCODONE-acetaminophe n (Percocet) 5-325 MG tablet Last medication check: 07/28/23 Last physical exam: 03/14/24 Next scheduled appointment: 08/30/24 CSA on file (date): 06/13/24 Urine drug screen - 05/31/24 Last date of refill on this medication 07/13/24 ( qty 90 refill 0) [address] 08-02-2024 36 Reviewed chart. Refi ll appropriate. RX sent. [place] [address] Reviewed chart. Refi ll appropriate. RX sent. [place] [address] Prescription Request : AMLODIPINE BESYLATE 5 MG TAB Last medication check: 11/03/23 Last physical exam: 03/14/24 Next scheduled appointment: 08/30/24 Last date of refill on this medication 11/03/23 ( Qty 90 refill 1) [place] [address] Prescription Request : Last medication check: 08/12/23 Last physical exam: 03/14/24 Next scheduled appointment: 08/30/24 Csa 01/11/24 Uds 05/31/24 Last date of refill on this medication 07/06/2529 and no refill [address] 08-01-2024 36 PA submitted 08/[address] 07-13-2024 36 Reviewed chart. Refi ll appropriate. RX sent. [place] [address] Prescription Request : oxyCODONE-acetaminophe n (Percocet) 5-325 MG tablet Last medication check: 07/28/23 Last physical exam: 03/14/24 Next scheduled appointment: 08/30/24 CSA on file (date): 06/13/24 Last date of refill on this medication 06/13/24 ( qty 90 refill 0) [address] 07-06-2024 36 Reviewed chart. Refi ll appropriate. RX sent. [place] [address] Prescription Request : eszopiclone (Lunesta) 3 MG tablet Last medication check: 05/31/24 well woman Last physical exam: 03/14/24 Next scheduled appointment: 08/30/24 CSA on file (date): 01/12/24 Last date of refill on this medication 06/07/24 ( qty 39 refill 0) [address] 06-13-2024 36 Last read by Sue Moncada at 4:00 PM on 06/12/2024. [facility] 36 Prescription Request : oxyCODONE-acetaminophe n (Percocet) 5-325 MG tablet Last medication check: 05/31/24 Last physical exam: 03/14/24 Next scheduled appointment: 08/30/24 CSA on file (date): 12/10/23 Last date of refill on this medication 05/17/24 ( qty 90 refill 0) [place] [address] 06-09-2024 36 Yakazhart message sent to patient-noted at next appointment. [place] [address] ----- Message from Jeri Trinidad APRN - DIGITAL MEDIA STRATEGIST sent at 06/09/2024 6:04 AM EDT ----- PAP smear and HPV- unfortunately the specimen was unsatisfactory for the test to be completed. Due to difficulty of examination, recommend referral to gynecology for screening to be completed. Can be discussed further at next appointment. [address] 2024 Reviewed chart. Refi ll appropriate. RX sent. [place] [address] Reviewed chart. Refi ll appropriate. RX sent. [facility] 36 CSA - Lunesta 05/31/2024 Drug Screen completed [place] [address] Patient is out of medication. Medication name: [...] other doctor or facility: no Ordering provider: Sue Solorzano Date of last office visit: 05/31/24 Date of next office visit: 08/30/24 Date of last refill: (see medication tab): 05/08/24 Updated/Validated preferred pharmacy: Yes Patient instructed to contact the pharmacy prior to picking up the medication: Yes [facility] AMB POC DRUG SCREEN 12, LABS OURCEon 05-31-2024 Amphetamine Screen, Urine Not detected [facility] Barbiturates Screen Ql (U) Not detected N one Detected [facility] Benzodiazepines Ql (U) Not detected None Detected [facility] Cannabinoids Screen (U) [Mass/Vol] Positive [facility] Cocaine Ql (U) Not detected None Detected [facility] Interpretation and review of laboratory results Abnormal [facility] Methadone Screen Ql (U) Not detected [facility] Methamphetamine (U) [Mass/Vol] Negative [facility] Methylenedioxymethamphetami ne (U) [Mass/Vol] Negative ng/mL [facility] Opiates Screen Ql (U) Not detected S [facility] oxyCODONE Ql (U) Positive [facility] Phencyclidine Ql (U) Not detected None Detected [facility] Tricyclic antidepressants Screen Ql (U) Positive [facility] Office Visiton 05-31-2024 Follow-up visit [id number] Irvin Moncada 1970 F Date Provider Department Center 05/31/2024 [id number] [facility] Family History Problem Relation Age of Onset Arthritis Mother Diabetes Mother Hyperlipidemia Mother Kidney disease Mother Cirrhosis Father Alcohol abuse Father Family Status - Relation Status Age at Mother Father Level of Service:04073 [place] OFFICE/OUTPATIENT ESTABLISHED MOD [facility] 30 MIN Reason for Visit and Comments: Gynecologic Exam [50] [facility] Progress Noteon 05-31-2024 Progress Note Symptoms well-controlled on Lunesta 3 mg nightly. Continue current medication. [facility] Progress Note Stable. Has been evaluated by Dr. Benson rheumatology. Stable condition no rheumatological interventions indicated [facility] Progress Note No active lesions. Will start topical antibiotic daily to affected areas. [facility] Progress Note 05/31/2024 Sue Moncada (: 1970) is a 53 y.o. female , Established patient, here for evaluation of the following chief complaint(s): Gynecologic Exam ASSESSMENT/PLAN: 1. Chronic pain syndrome Assessment & Plan: Continue Percocet 5-3 25 every 8 hours as needed for severe pain. OARRS reviewed and consistent with treatment plan. MA is in place. Orders: - AMB [...] current medication. Follow up for 3 month [facility]. SUBJECTIVE/OBJECTIVE: BRADFORD Moncada (: 1970) is a 53 y.o. female , Established patient, here for the evaluation of the following chief complaint(s): Gynecologic Exam Patient presents for her 3-month med check for chronic pain and for her gynecological exam. She has already had her annual physical with fasting labs completed earlier this year. She states she had her labs completed at [facility] and we will need to request those [...] IF... (REFER TO PRESCRIPTION NOTES). nystatin (Mycostatin) [id number] UNIT/GM powder Apply topically 3 times daily. [...] Conjunctiva/sclera: Right eye: (more content not included)... [facility] Progress Note Patient was identifi ed by name and Date of . Health Maintenance Due Topic Colorectal Cancer Screening-REFERRAL PRINTED Diabetes Screening-DONE AT [facility] 2-3 MONTHS-WILL FAX YASMEEN Cervical Cancer Screening-TODAY Lung Cancer Screening-PENDED Bone [...] results entered and were sent to provider. [place] [address]on 05-15-2024 36 Prescription Request : Last medication check: 03/14/24 Last physical exam: 03/04/23 Next scheduled appointment: 05/31/24 CSA on file (date): 01/12/24 Last urine drug screen: 02/03/23 Last date of refill on this medication 04/17/[address] 05-08-2024 36 Reviewed chart. Refi ll appropriate. RX sent. [facility] 36 CSA - Lunesta 01/11/24 [facility] 36 Patient is out. Medication name: eszopiclone (Lunesta) 3 MG tablet [[id number]] Medication dosage: 3 mg (Miligrams Monthly quantity needed: 30 How many day supply requestin days Medication route: oral (PO) Medication administration time(s): bedtime (HS) If taking medication PRN, reason for taking medication: N/A If this is a controlled substance do you receive this or any other controlled medication from any other doctor or facility: No Ordering provider: Dr. Slaughter Date of last office visit: 03.14.24 Date of next office visit: 05.31.24 Date of last refill: (see medication tab): 04.05.24 Updated/Validated preferred pharmacy: Yes [facility]/pharmacy #[id number] [facility] [address] DEAN #: [id number] Patient instructed to contact the pharmacy prior to picking up the medication: Yes [address] 04-27-2024 36 Noted. Agree with disposition. [place] [address] S: Patient spoke wit h [facility] nurse regarding boil under right arm, green [...] no fever Protocols used: Boil (Skin Abscess)-ADULT-[place] [address] 04-14-2024 36 Reviewed chart. Refi ll appropriate. RX sent. [place] [address] Prescription Request : Last medication check: 01-11-24 Last physical exam: 03-14-24 Next scheduled appointment: 04-10-24 Last date of refill on this medication 12/23/[address] 04-10-2024 36 CSA 12/09/23 [place] [address] Medication name: oxyCODONE-acetaminophe n (Percocet) 5-325 MG [...] other doctor or facility: No Ordering provider: Jeri Trinidad Date of last office visit: 03.14.24 Date of next office visit: 05.31.24 Date of last refill: (see medication tab): 03.18.24 Updated/Validated preferred pharmacy: Yes Patient instructed to contact the pharmacy prior to picking up the medication: No [facility] 36on 04-05-2024 36 Reviewed chart. Refi ll appropriate. RX sent. [facility] 36 Prescription Request : Last medication check: 01-11-24 Last physical exam: 03-14-24 Next scheduled appointment: 04-10-24 CSA on file (date): 01-11-24 Last urine drug screen: 02-03-23 Last date of refill on this medication 03-04-24 [facility] 36on 04-04-2024 36 Reviewed chart. Refi ll appropriate. RX sent. [facility] 36 Prescription Request : Last medication check: 01/11/24 Last physical exam: 03/14/24 Next scheduled appointment: 04/10/24 Last date of refill on this medication: 09/08/23 [facility] .Auto Diffon 03-31-2024 Basophil, Absolute 0.1 10 3/mcL Normal 0.0-0.2 [facility] Comment on above: Performed By: #### C BC, ADIFF, ANEU, CMP, GFR, VIDH #### [address] [address] Basophils/100 WBC (Bld) 0.6 % Normal 0.0-2.5 [facility] Comment on above: Performed By: #### C BC, ADIFF, ANEU, CMP, GFR, VIDH #### [address] [address] Eosinophil, Absolute 0.0 10 3/mcL Normal 0.0-0.7 [facility] Comment on above: Performed By: #### C BC, ADIFF, ANEU, CMP, GFR, VIDH #### [address] [address] Eosinophils/100 WBC (Bld) 0.1 % Normal 0.0-7.0 [facility] Comment on above: Performed By: #### C BC, ADIFF, ANEU, CMP, GFR, VIDH #### [address] [address] Lymphocyte, Absolute 2.0 10 3/mcL Normal 0.9-4.3 [facility] Comment on above: Performed By: #### C BC, ADIFF, ANEU, CMP, GFR, VIDH #### [address] [address] Lymphocytes/100 WBC (Bld) 21.5 % Normal 20.0-40.0 [facility] Comment on above: Performed By: #### C BC, ADIFF, ANEU, CMP, GFR, VIDH #### [address] [address] Monocyte, Absolute 0.7 10 3/mcL Normal 0.1-1.4 [facility] Comment on above: Performed By: #### C BC, ADIFF, ANEU, CMP, GFR, VIDH #### [address] [address] Monocytes/100 WBC (Bld) 7.6 % Normal 2.0-13.0 [facility] Comment on above: Performed By: #### C BC, ADIFF, ANEU, CMP, GFR, VIDH #### [address] [address] Neutrophils/100 WBC (Bld) 70.2 % Normal 50.0-75.0 [facility] Comment on above: Performed By: #### C BC, ADIFF, ANEU, CMP, GFR, VIDH #### [address] [address] .GFRon 03-31-2024 Estimated Glomerular Filtration Rate 96 ml/min/1.73sqm Normal [facility] Comment on above: Result Comment: Stages [...] calculate the eGFR results. Performed By: #### C BC, ADIFF, ANEU, CMP, GFR, VIDH #### [place] [address] .NEUABSon 03-31-2024 Neutrophil, Absolute 6.5 10 3/mcL Normal 2.3-8.1 [facility] Comment on above: Performed By: #### C BC, ADIFF, ANEU, CMP, GFR, VIDH #### [place] [address] .Urinalysis Microscopic (AO) on 03-31-2024 UA Bacteria 2+ /hpf Abnormal [facility] Comment on above: Performed By: #### U A, UAMICAO #### [place] [address] UA CA Ox Crystal 3+ /hpf Normal [facility] Comment on above: Performed By: #### U A, UAMICAO #### [place] [address] UA RBC None Seen Normal None Seen [facility] Comment on above: Performed By: #### U A, UAMICAO #### [place] [address] UA Squam Epithelial 0-5 Abnormal None Seen [facility] Comment on above: Performed By: #### U A, UAMICAO #### [place] [address] UA WBC 10-15 Abnormal None Seen [facility] Comment on above: Performed By: #### U A, UAMICAO #### [place] [address] CBCon 03-31-2024 Erythrocyte distribution width (RBC) [Ratio] 14.0 % Normal 11.5-15.5 [facility] Comment on above: Performed By: #### C BC, ADIFF, ANEU, CMP, GFR, VIDH #### [place] [address] Hematocrit (Bld) [Volume fraction] 39.7 % Normal 34.0-46.0 [facility] Comment on above: Performed By: #### C BC, ADIFF, ANEU, CMP, GFR, VIDH #### [address] [address] Hgb 13.6 G/dL Normal 12.0-16.0 [facility] Comment on above: Performed By: #### C BC, ADIFF, ANEU, CMP, GFR, VIDH #### [address] [address] MCH (RBC) [Entitic mass] 32.6 pg Normal 27.0-33.0 [facility] Comment on above: Performed By: #### C BC, ADIFF, ANEU, CMP, GFR, VIDH #### [address] [address] MCHC 34.3 G/dL Normal 32.0-36.0 [facility] Comment on above: Performed By: #### C BC, ADIFF, ANEU, CMP, GFR, VIDH #### [address] [address] MCV (RBC) [Entitic vol] 95.3 fL Normal 80.0-99.0 [facility] Comment on above: Performed By: #### C BC, ADIFF, ANEU, CMP, GFR, VIDH #### [address] [address] Platelet 388 10 3/mcL Normal 150-450 [facility] Comment on above: Performed By: #### C BC, ADIFF, ANEU, CMP, GFR, VIDH #### [address] [address] Platelet mean volume (Bld) [Entitic vol] 7.4 fL Normal 6.6-10.5 [facility] Comment on above: Performed By: #### C BC, ADIFF, ANEU, CMP, GFR, VIDH #### [address] [address] RBC 4.16 10 6/mcL Normal 4.10-5.30 [facility] Comment on above: Performed By: #### C BC, ADIFF, ANEU, CMP, GFR, VIDH #### [address] [address] WBC 9.2 10 3/mcL Normal 4.5-10.8 [facility] Comment on above: Performed By: #### C BC, ADIFF, ANEU, CMP, GFR, VIDH #### [address] [address] CMPon 03-31-2024 Albumin Level 3.4 G/dL Low 3.5-5.0 [facility] Comment on above: Performed By: #### C BC, ADIFF, ANEU, CMP, GFR, VIDH #### [address] [address] Albumin/Globulin [Mass ratio] 0.8 {ratio} Low 1.1-2.5 [facility] Comment on above: Performed By: #### C BC, ADIFF, ANEU, CMP, GFR, VIDH #### [address] [address] ALP [Catalytic activity/Vol] 148 U/L High 40-135 [facility] Comment on above: Performed By: #### C BC, ADIFF, ANEU, CMP, GFR, VIDH #### [address] [address] ALT [Catalytic activity/Vol] 40 U/L Normal 14-59 [facility] Comment on above: Performed By: #### C BC, ADIFF, ANEU, CMP, GFR, VIDH #### [address] [address] AST [Catalytic activity/Vol] 34 U/L Normal 10-40 [facility] Comment on above: Performed By: #### C BC, ADIFF, ANEU, CMP, GFR, VIDH #### [address] [address] Bili Total 0.3 mg/dL Normal 0.2-1.0 [facility] Comment on above: Result Comment: Use of this assay is not recommended for patients undergoing treatment with eltrombopag due to the potential for falsely elevated results. Performed By: #### C BC, ADIFF, ANEU, CMP, GFR, VIDH #### [place] [address] BUN/Creatinine Ratio 15 ratio Normal 7-27 [facility] Comment on above: Performed By: #### C BC, ADIFF, ANEU, CMP, GFR, VIDH #### [place] [address] Calcium [Mass/Vol] 9.2 mg/dL Normal 8.4-10.2 [facility] Comment on above: Performed By: #### C BC, ADIFF, ANEU, CMP, GFR, VIDH #### [place] [address] Chloride [Moles/Vol] 102 mmol/L Normal 98-107 [facility] Comment on above: Performed By: #### C BC, ADIFF, ANEU, CMP, GFR, VIDH #### [place] [address] CO2 [Moles/Vol] 31 mmol/L High 22-29 [facility] Comment on above: Performed By: #### C BC, ADIFF, ANEU, CMP, GFR, VIDH #### [place] [address] Creatinine [Mass/Vol] 0.75 mg/dL Normal 0.55-1.02 [facility] Comment on above: Result Comment: Test ing performed on Siemens Dimension EXL analyzer using a modified kinetic Vahid technique. Performed By: #### C BC, ADIFF, ANEU, CMP, GFR, VIDH #### [place] [address] Electrolyte Balance 7.0 mEq/L Normal 4.0-15.0 [facility] Comment on above: Performed By: #### C BC, ADIFF, ANEU, CMP, GFR, VIDH #### [place] [address] Globulin 4.2 G/dL High 1.5-3.8 [facility] Comment on above: Performed By: #### C BC, ADIFF, ANEU, CMP, GFR, VIDH #### [address] [address] Glucose [Mass/Vol] 94 mg/dL Normal 70-105 [facility] Comment on above: Performed By: #### C BC, ADIFF, ANEU, CMP, GFR, VIDH #### [address] [address] Potassium [Moles/Vol] 3.5 mmol/L Normal 3.5-5.1 [facility] Comment on above: Performed By: #### C BC, ADIFF, ANEU, CMP, GFR, VIDH #### [address] [address] Sodium [Moles/Vol] 140 mmol/L Normal 136-145 [facility] Comment on above: Performed By: #### C BC, ADIFF, ANEU, CMP, GFR, VIDH #### [address] [address] Total Protein 7.6 G/dL Normal 6.4-8.2 [facility] Comment on above: Performed By: #### C BC, ADIFF, ANEU, CMP, GFR, VIDH #### [address] [address] Urea nitrogen [Mass/Vol] 11 mg/dL Normal 7-18 [facility] Comment on above: Performed By: #### C BC, ADIFF, ANEU, CMP, GFR, VIDH #### [address] [address] LABORATORYOrdered By: Gadiel Martínez on 03-31-2024 Appearance [...] 03-31-2024 Cholesterol [Mass/Vol] 183 mg/dL Normal 0-200 [facility] Comment on above: Result Comment: Chol esterol Reference Interval: Less than 200 Desirable 200-239 Borderline high risk 240 and above High risk Performed By: #### U DANIEL Jackson #### [facility] [address] [place], [place] [address] Cholesterol in HDL [Mass/Vol] 89 mg/dL High 40-60 [facility] Comment on above: Performed By: #### U Manuel [place]AM[place]O #### [address] [address] Cholesterol in LDL [Mass/Vol] 82 mg/dL Normal 0-130 [facility] Comment on above: Performed By: #### U A [place]AM[place]O #### [address] [address] Triglyceride [Mass/Vol] 59 mg/dL Normal 0-150 [facility] Comment on above: Result Comment: Trig lyceride Reference Interval: Less than 150 Normal 150-199 Borderline high risk 200-499 High risk 500 or higher Very high risk Performed By: #### Kedar Jackson [place] #### [address] [address] MGon 03-31-2024 Magnesium [Mass/Vol] 2.0 mg/dL Normal 1.8-2.4 [facility] Comment on above: Performed By: #### P HOS, TSH, LIPID, MG #### [address] [address] #### PTH #### [place] [address] PHOSon 03-31-2024 Phosphate [Mass/Vol] 3.3 mg/dL Normal 2.7-4.5 [facility] Comment on above: Performed By: #### Kedar Jackson [place]O #### [address] [address] PTHon 03-31-2024 PTH, Intact 65.0 pg/mL Normal 18.5-88.0 [facility] Comment on above: Performed By: #### U Manuel [place]AM[place]O #### [address] [address] TSHon 03-31-2024 TSH Qn 1.24 m[IU]/L Normal 0.36-3.74 [facility] Comment on above: Performed By: #### U Manuel UAM[place]O #### [address] [address] UAon 03-31-2024 Color (U) Yellow Normal [facility] Comment on above: Performed By: #### U A, UAMICAO #### [place] [address] Glucose (U) [Mass/Vol] Negative Normal Negative [facility] Comment on above: Performed By: #### U A, UAMICAO #### [place] [address] Ketones Ql (U) Negative Normal Negative [facility] Comment on above: Performed By: #### U A, UAMICAO #### [place] [address] UA Appear Slightly Cloudy Abnormal Clear [facility] Comment on above: Performed By: #### U A, UAMICAO #### [place] [address] UA Blood Trace Abnormal Negative [facility] Comment on above: Performed By: #### U A, UAMICAO #### [place] [address] UA Leuk Est Small Abnormal Negative [facility] Comment on above: Performed By: #### U A, UAMICAO #### [place] [address] UA Nitrite Negative Normal Negative [facility] Comment on above: Performed By: #### U A, UAMICAO #### [place] [address] UA pH 6.0 Normal 5.0 - 8.0 [facility] Comment on above: Performed By: #### U A, UAMICAO #### [place] [address] UA Protein Negative Normal Negative [facility] Comment on above: Performed By: #### U A, UAMICAO #### [place] [address] UA Spec Grav 1.020 Normal 1.015-1.02 5 [facility] Comment on above: Performed By: #### U A, UAMICAO #### [place] [address] [place], [place] [address] UA Specimen Type Void Normal [facility] Comment on above: Performed By: #### U A, UAMICAO #### [place] [address] [place], [place] [address] UA Urobilinogen 0.2 E.U./dL Normal 0.2-1.0 [facility] Comment on above: Performed By: #### U A, UAMICAO #### [address] [address] Urobilinogen (U) [Mass/Vol] Negative Normal Negative [facility] Comment on above: Performed By: #### U A, UAMICAO #### [address] [address] VIDHon 03-31-2024 Vit. D 25-Hydroxy 20.8 ng/mL Normal [facility] Comment on above: Result Comment: Inte rpretive Values Based on Total 25(OH) Vitamin D: Deficient <20 ng/mL Insufficient 20 - <30 ng/mL Sufficient 30-100 ng/mL Performed By: #### C BC, ADIFF, ANEU, CMP, GFR, VIDH #### [address] [address] 36on 03-23-2024 36 (2nd attempt) Called today to schedule screening colonoscopy (surveillance program) Left message to call the screening program at [phone] 1st attempt my chart message sent. [facility] 36on 03-17-2024 36 MyChart message sent to have patient call screening program if still interested in scheduling a screening colonoscopy. [facility] 37on 03-14-2024 37 [facility] NEED TO FAX ALL ORDERS OVER WANTS DONE THERE. FAX # TO SEND ORDERS TO IS [phone] 1.) Call Gastroenterology to schedule appointment at [phone] they will get you scheduled for a colonoscopy. 2.) Orders will all be faxed to [facility] you will need to call them to schedule at [phone] ----Mammogram,Lung CT, DEXA Scan/Bone Density--- 3.) Any vaccines, you will need to have completed at the health Dept. 4.) Schedule for Well Female exam. Personalized Preventative Plan for Sue Moncada - 03/14/2024 Medicare offers a range [...] Recommendations: A preventive eye exam by an eye technician is recommended every 1-2 years to screen for glaucoma, cataracts, macular degeneration, and other eye disorders. A preventive dental visit is recommended every 6 months. Try to get at least 150 minutes of exercise per week or 10,000 steps per day on a pedometer. You need 1200-1500mg of calcium and 8703-8931 international units of vitamin D per day. [...] riding a bicycle or a motorcycle Normal [facility] Office Visiton 03-14-2024 Follow-up visit [id number] Irvin Moncada 1970 F Date Provider Department Center 03/14/2024 [id number] TRIN[facility]AD [facility] Family History Problem Relation Age of Onset Arthritis Mother Diabetes Mother Hyperlipidemia Mother Kidney disease Mother Cirrhosis Father Alcohol abuse Father Family Status - Relation Status Age at Mother Father Level of Service:G0438 [place] PPPS, INITIAL VISIT Reason for Visit and [...] EXP 01/02/2025 ?Medicare Annual Wellness (AWV) -today [facility] Progress Noteon 03-14-2024 Progress Note Symptoms well-controlled on Lunesta 3 mg nightly. Continue current medication. Normal [facility] Progress Note Condition stable. Normal [facility] Progress Note Stable. Continue current medications. Normal [facility] Progress Note Obtain labs previous ly ordered by osteoporosis clinic Normal [facility] Progress Note Controlled. Continue atorvastatin 20 mg nightly Normal [facility] Progress Note Controlled. Blood pressure 133/79. Continue amlodipine 5 mg daily Normal [facility] Progress Note Stable. Has been evaluated by Dr. Benson rheumatology. Stable condition no rheumatological interventions indicated Normal [facility] Progress Note History of vitamin D deficiency, check vitamin D level Normal [facility] Progress Note Continue Percocet 5- 3 25 every 8 hours as needed for severe pain. OARRS reviewed and consistent with treatment plan. CS MA is in place. Patient is currently trying to get established with [facility] pain management and is waiting for their reply after sending in their forms about 3 weeks ago. 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 Normal [facility] Progress Note Patient was identifi ed by [...] EXP 01/02/2025 Medicare Annual Wellness (AWV) -today [facility] NEED TO FAX ALL ORDERS OVER WANTS DONE THERE. FAX # TO SEND ORDERS TO IS [phone] 1.) Call Gastroenterology to schedule appointment--they will get you scheduled for a colonoscopy. 2.) Orders will all be faxed to [facility] you will need to call them to schedule at [phone] ----Mammogram,Lung CT, DEXA Scan/Bone Density--- 3.) Any [...] Korin Mack MA in right dorsogluteal. Normal [facility] Progress Note [facility] - [address] [address] Dept: [phone] Dept Chief Complaint: Sue Moncada is an 53 y.o. female here [...] is currently trying to get established with [facility] pain management and is waiting for their [...] IF... (REFER TO PRESCRIPTION NOTES). nystatin (Mycostatin) 066562 UNIT/GM powder Apply topically 3 times daily. [...] Patient states she did reach out to [facility] pain management and sent the information they needed to them about 3 weeks ago and is waiting for them to call to schedule. They were recommended by the rod puller Dr. Benson. Last visit we gave her [...] effects of t (more content not included)... [facility] 36on 03-02-2024 36 CSA 01/11/24 [facility] 36 Ordering provider: Brad Slaughter Date of last office visit: 01/11/2024 Date [...] of last refill (see medication tab): 02/03/2024 [facility] 36on 02-28-2024 36 Orders cancelled [place] [address] Ok to cancel [place] [address] As of today, 02/28/24 , pt has not scheduled for a CT-Lung Screen. Okay to cancel orders as they will close on 03/04/24 due to being . [facility] 36on 02-17-2024 36 12/09/23 rfp Percoce t CSA - 12/07/2024 [facility] 36 Medication name: The patient does not have [...] doctor or facility: No Ordering provider: Dr. Slaughter Date of last office visit: 01-11-2024 Date of next office visit: 03-02-2024 Date of last refill: (see medication tab): 02-03-2024 Updated/Validated preferred pharmacy: Yes Patient instructed to contact the pharmacy prior to picking up the medication: Yes [address] 02-07-2024 36 Prescription Request : Last medication check: 01/11/24 Last physical exam: 03/04/23 Next scheduled appointment: 03/02/24 Last date of refill on this medication 12/30/23 30 tablets [address] 02-03-2024 36 Rx sent, OARRS repor t done, no inconsistencies, CS agreement in place [facility] 36 Rx sent, OARRS repor t done, no inconsistencies, CS agreement in place [address] 02-01-2024 36 Prescription Request : Last medication check: 01/11/2024 Last physical exam: 03/04/2023 Next scheduled appointment: 03/02/2024 CSA on file (date): 01/11/2024 Last urine drug screen: none Last date of refill on this medication: 01/08/2024 [facility] 36 Prescription Request : Last medication check: 01/11/2024 Last physical exam: 03/04/2023 Next scheduled appointment: 03/02/2024 CSA on file (date): 12/09/2023 Last urine drug screen: none Last date of refill on this medication: 01/08/2024 [facility] Emergency Department Summary on 01-22-2024 Emergency Department Summary [facility] Medical Records Department [address] [place] [address] Emergency Department Summary 01/22/24 MR#: [id number] Acct: [id number] Name: SUE MONCADA Rep #: [id number] : 1970 53 From: [place] DO PCP: Jeri Trinidad Status:DEP ER Location: ED HPI History [...] she is chronically on pain medicine already. [facility] Medical History Left rotator cuff tear arthropathy [...] edema Genera (more content not included)... Normal [facility] 37on 01-11-2024 37 Please reach out to Dr. Benson to see what automotive painter helper it was that she recommended for you. [phone] Normal [facility] Office Visiton 01-11-2024 Follow-up visit [id number] Irvin Moncada 1970 F Date Provider Department Center 01/11/2024 [id number] TRINIDAD [facility] Family History Problem Relation Age of Onset Arthritis Mother Diabetes Mother Hyperlipidemia Mother Kidney disease Mother Cirrhosis Father Alcohol abuse Father Family Status - Relation Status Age at Mother Father Level of Service:54316 [place] OFFICE/OUTPATIENT ESTABLISHED MOD MDM 30 MIN Reason for Visit and Comments: Follow-up [022976] Normal [facility] Progress Noteon 01-11-2024 Progress Note Within the breast folds. Keep area clean and dry and apply nystatin twice daily until clears. Follow-up for worsening or failure for symptoms to improve Normal [facility] Progress Note MRI showing soft tissue thickening without other concerning findings. Continue to monitor Normal [facility] Progress Note Patient did not have significant improvement with physical therapy. We will give Kenalog injection IM to see if this helps with her pain. Normal [facility] Progress Note 01/11/2024 Sue Moncada (: 1970) is a 53 y.o. female , Established patient, here for evaluation of the following chief complaint(s): Follow-up ASSESSMENT/PLAN: 1. Chronic pain syndrome Assessment & Plan: Continue Percocet 5-3 25 every 8 hours as needed for severe pain. OARRS reviewed and consistent with treatment plan. MA is in place. Patient is to reach out to rod puller to see what pain management doctor was [...] symptoms to improve Orders: - nystatin (Mycostatin) 802550 UNIT/GM powder; Apply topically 3 times daily., Starting Wed01/11/2024, Until Wed01/10/2025, Normal 4. Chronic right-sided low back pain without sciatica - triamcinolone acetonide (Kenalog-40) injection 80 mg; 80 mg, IntraMUSCular, Once, On Wed01/11/24 at 1600, For 1 dose 5. Mass on back Assessment & Plan: MRI showing soft tissue thickening without other concerning findings. Continue to monitor Follow up for 3 month galileo. SUBJECTIVE/OBJECTIVE: BRADFORD Moncada (: 1970) is a 53 y.o. female , Established patient, here for the evaluation of the following chief complaint(s): Follow-up Presents for follow-up chronic pain. Has been seen by rod puller-Dr. Benson. Lumber Grader did recommend a specific automotive painter helper but we are unsure of whom the [...] hospice. 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 She is requesting an increase of her Percocet. Patient was advised that I am unable to increase her pain medication and that we need to get her to a automotive painter helper that we will manage her pain for [...] (50 mg) by mouth Nightly. 12/23/23 Yes Jeri Bridenthal, REINFORC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 STRATEGIST amLODIPine (Norvasc) 5 MG tablet Take 1 tablet (5 mg) by mouth daily. 9/18/24 10/10/25 Yes KATHERINE Escalante CNP atorvastatin (Lipitor) 20 MG tablet take 1 tablet by mouth nightly 09/08/23 Yes Jeri Trinidad APRN - [place] choline fenofibrate (Trilipix) [address] capsule Take by mouth. 11/24/21 Yes Historical Provider, dexlansoprazole (Dexilant) [address] capsule take 1 capsule by mouth once daily 07/26/23 Yes Jeri Trinidad APRN - [place] eszopiclone (Lunesta) 3 MG tablet Take 1 tablet (3 mg) by mouth Nightly as needed for sleep. Take immediately before bedtime 01/07/24 02/06/24 Yes Jose D Slaughter MD naloxone (Narcan) 4 mg/0.1 mL nasal spray ADMINISTER A SINGLE spray INTO ONE NOSTRIL repeat in 3 MINUTES IF... (REFER TO PRESCRIPTION NOTES). 03/04/23 Yes Historical Provider, oxyCODONE-acetaminophe n (Percocet) 5-325 MG tablet Take 1 tablet by mouth every 8 hours as needed for severe pain (7-10). Do not start before January 08, 2024. 01/08/24 02/07/24 Yes Jeri Trinidad APRN - [place] tiZANidine (Zanaflex) 4 MG tablet take 2 tablets by mouth at bedtime if needed 12/30/23 Yes Jeri Trinidad APRN - [place] eszopiclone (Lunesta) 3 MG tablet Take 1 tablet (3 mg) by mouth Nightly as needed for sleep. Take immediately before bedtime 11/27/23 01/07/24 Jerikalyan Trinidad APRN - [place] Review of Systems Constitutional: Negative. Negative for activity change, chills, fatigue and fever. HENT: Negative. Respiratory: Negative. Cardiovascular: Negative. Gastrointestinal: Negative for abdominal pain, blood in stool, nausea and vomiting. Alternates between constipaton and loose stools- IBS Genitourinary: Negative for difficulty urinating. Musculoskeletal: Positive for back pain and gait problem. N (more content not included)... Normal [facility] Progress Note Patient was identifi ed by name and Date of . Normal [facility] 36on 01-07-2024 36 Please have her sign at visit on Wednesday. Thanks! [place] [address] Rx sent, OARRS repor t done, no inconsistencies, CS agreement is out of date she needs to sign a new one before we refill the next prescription. [facility] 36 [facility] 11/24/22 [place] [address] Patient stated that they only have 1 [...] prior to picking up the medication: Yes [address] 12-30-2023 36 [facility] 12/09/23 [place] [address] Ordering provider: Jeri Trinidad Date of last office visit: 12.09.2023 [...] of last refill (see medication tab): 11.03.2023 [facility] 36on 12-23-2023 36 Reviewed chart. Refi ll appropriate. RX sent. [facility] 36 Prescription Request : Last medication check: 12/09/23 Last physical exam: 03/04/23 Next scheduled appointment: 01/11/24 Last date of refill on this medication 06/24/23 90 day 1 refill [facility] 36on 12-14-2023 36 Last office visit no te and summary faxed to number provided. [facility] 36 Called and spoke lilli h Dr. Benson, rheumatology who will be seeing patient later today to establish. Discussed plan of care and concerns regarding patient's pain management. Would like Dr. 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 Also if any rheumatologic medications would be helpful for her. Will send most recent OV note. [facility] 36on 12-09-2023 [address] F[address] sent over [address]. Benson. If she returns phone call please put her through to Vi WILKES. [facility] Office Visiton 12-09-2023 Follow-up visit [id number] Irvin Moncada 1970 F Date Provider Department Center 12/09/2023 [id number] URBINA [facility] Family History Problem Relation Age of Onset Arthritis Mother Diabetes Mother Hyperlipidemia Mother Kidney disease Mother Cirrhosis Father Alcohol abuse Father Family Status - Relation Status Age at Mother Father Level of Service:82432 [place] OFFICE/OUTPATIENT ESTABLISHED MOD MDM 30 MIN Reason for Visit and Comments: Follow-up [879508] [facility] Progress Noteon 12-09-2023 Progress Note Initial blood pressu re elevated, repeat blood pressure good 119/77. Continue amlodipine 5 mg daily. Remember to bring home blood pressure cuff to the next office visit [facility] Progress Note Patient was unable t o [...] appointment with rheumatology next week. Hopeful that rod puller will have some recommendations for pain management. At this time we will continue current dose of Percocet 5 mg every 8 hours as needed for pain, OARRS reviewed and consistent with treatment plan. JESSE MA is in place [facility] Progress Note Severe. Pain poorly managed [facility] Progress Note Patient reports she has an appointment on the to establish care with Dr. Benson rheumatology. Provider will try to reach out to Dr. Benson prior to her appointment to discuss patient's plan of care [facility] Progress Note 12/09/2023 Sue Moncada (: 1970) is a 53 y.o. [...] appointment with rheumatology next week. Hopeful that rod puller will have some recommendations for pain management. [...] recent illnesses or injuries. Dr. Casey in [place] - does her shoulder injections and has done some hip injections (bursitis) . (can only do the right shoulder d/t disorder). 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 Lives alone in apartment. Insomnia- we tried to decrease the lunesta dose last visit but she stated that she was unable to sleep at all on the 2 mg dose. She was on bupropion previ (more content not included)... [facility] Progress Note Patient was identifi ed by [...] Immunization(s) was given by Korin Mack MA. [facility] Orthopedic Visit Reporton Orthopedic Visit Report [facility] [address] [place] [address] OFFICE VISIT Date of Service: 12/07/23 MR#: [id number] Acct: [id number] Name: SUE MONCADA Rep #: [id number] : 1970 Provider: Dr. Shady rojas MD Age/Sex: 53/F Location: [place] Status: Signed Intake Vital Signs 05/12/23 14:50 [...] by me, Dr. Shady Burks MD 12/07/23 0323. Part of today???s visit was documented by [ ], acting as scribe. 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 Supplemental Info [facility] [address] [place] [address] Shoulder min 2 Views MR#: [id number] Acct: [id number] Name: SUE MONCADA Rep #: [id number] : 1970 F 52 From: Alex Oseguera DO PCP: Status: DEP LOUISE Study: Shoulder min 2 Views Date of Exam: 12/23/22 Exam# [id number] Ordering Dr: Rayo Cantu DO [id number] EXAM: XR LEFT SHOULDER COMPLETE, 2 OR [...] 21:12 ES (more content not included)... Normal [facility] 36on 11-26-2023 36 Spoke to Sue, pharmacy updated to [facility] in [place]. [facility] 36on 11-25-2023 36 KATHERINE Escalante CNP [facility] Clinical Support Staff1 hour ago (12:26 PM) Please notify patient that I will change it back to the Lunesta 3 mg nightly dose. Please confirm pharmacy Called Sue, no answer and vm is full. Normal [facility] 36 Name of caller: tameka feng Contact phone number: [phone] Relationship to Patient: patient Provider: KATHERINE Escalante CNP Practice: [facility] Chief Complaint/Reason for Call: Patient is following [...] business hours to return their call: Yes [facility] Orthopedic Visit Reporton Orthopedic Visit Report [facility] [address] [place] [address] OFFICE VISIT Date of Service: 11/24/23 MR#: [id number] Acct: [id number] Name: SUE MONCADA Rep #: [id number] : 1970 Provider: Dr. Rayo paredes, DO Age/Sex: 53/F Location: [place] Status: Signed Intake Vital Signs 05/12/23 14:50 [...] by me, Dr. Rayo Cantu DO 11/24/23 0044. Part of today???s visit was documented by Priscilla ALEMAN, acting as scribe. SUE MONCADA is a 53 year old F [...] Performing Provider: Rayo Cantu DO Performing Location: [facility] Administered by: Rayo Cantu DO on 11/24/23 15:53 Dose Route Admin Location Dispensed Lot Number Expiration Date [facility] Man ufacturer 40 mg intra-articular right subacromial 1 mL [id number] 11/15/24 6583-6995-20 [facility] Supplemental Info 12/23/2022 x-ray right shoulder : [...] enchondroma unchange (more content not included)... Normal [facility] Office Visiton 11-03-2023 Follow-up visit [id number] CoralIrvin Oakes 1970 F Date Provider Department Center 11/03/2023 [id number] URBINA [facility] Family History Problem Relation Age of Onset Arthritis Mother Diabetes Mother Hyperlipidemia Mother Kidney disease Mother Cirrhosis Father Alcohol abuse Father Family Status - Relation Status Age at Mother Father Level of Service:14974 [place] OFFICE/OUTPATIENT ESTABLISHED MOD MDM 30 MIN Reason for Visit and Comments: Medication Check [[id number]] [facility] PATINSon 11-03-2023 PATINS Make sure to get scheduled with rheumatology We will continue current dose of percocet at this time. - fisrt fill for next rx on 11/10/2023 We will plan on decreasing Lunesta next prescription with alternating 2 mg and 3 mg nightly 4. Bring blood pressure monitor with you when you come back in. Normal [facility] Progress Noteon 11-03-2023 Progress Note Follow-up with osteoporosis clinic as directed [facility] Progress Note Symptoms are well-controlled on Lunesta [...] medicine if patient has significant insomnia. Normal [facility] Progress Note Patient has been referred to Dr. Benson and is waiting to establish. Patient was advised that this is a priority and she should call to get scheduled [facility] Progress Note Stable. Patient will be seeing tool repair technician [facility] Progress Note Uncontrolled. Restar t amlodipine 10 mg daily. Bring blood pressure cuff to the office at next visit [facility] Progress Note Provider reached out to [facility] pain stewardship team for further recommendations regarding [...] management for [facility] in [place]. --------- Discussed in great detail with patient [...] Close follow up in 1 month. Normal [facility] Progress Note 11/03/2023 Sue Moncada (: 1970) is a 53 y.o. female , Established patient, here for evaluation of the following chief complaint(s): Medication Check ASSESSMENT/PLAN: 1. Chronic pain syndrome Assessment & Plan: Provider reached out to [facility] pain stewardship team for further recommendations regarding [...] management for [facility] in [place]. --------- Discussed in great detail with patient [...] & Plan: Stable. Patient will be seeing tool repair technician 5. Linear scleroderma Assessment & Plan: Patient [...] her op (more content not included)... Normal [facility] Progress Note Health Maintenance Addressed with Patient at Visit: Health Maintenance Due Topic Colorectal Cancer Screening-pended Diabetes Screening-was pended from provider Cervical Cancer Screening-pended Lung Cancer Screening-pended Depression Monitoring-completed COVID-19 Vaccine-declined Influenza Vaccine-declined [facility] Office Visiton 10-26-2023 Follow-up visit [id number] Irvin Moncada 1970 F Date Provider Department Center 10/26/2023 [id number] VERA [facility] None Family History Problem Relation Age of Onset Arthritis Mother Diabetes Mother Hyperlipidemia Mother Kidney disease Mother Cirrhosis Father Alcohol abuse Father Family Status - Relation Status Age at Mother Father Level of Service:08349 [place] OFFICE/OUTPATIENT NEW MODERATE MDM 45 MINUTES Reason [...] injections to help with this pain. Normal [facility] Progress Noteon 10-26-2023 Progress Note [facility] PAIN MANAGEMENT - [facility] C[facility] [address] [place] [address] Dept: [phone] Dept Chief Complaint Patient presents with New [...] to help with this pain. SUBJECTIVE HPI: Sue Moncada is a 53 y.o. year old [...] level: Not on file Occupational History Comment: [employer] Tobacco Use Smoking status: Every Day [...] History Narrative (more content not included)... Normal [facility] 36on 10-13-2023 36 Noted Normal [facility] 36on 10-12-2023 36 Please keep it open. Patient said she was planning on rescheduling it when I talked to her last. Normal [facility] 36 Pt given orders for CT-Lung Screen on 03/04/23. Pt sched for 06/29/23 and NC/NS to appt. No follow up scheduled at this time. Okay to cancel orders? [facility] CBC panel Auto (Bld)on 03-05 Erythrocyte distribution width (RBC) [Ratio] 13.0 % 11.0 - 15.0 % [facility] Erythrocyte distribution width (RBC) [Ratio] 13 % 11.0 - 15.0 % [facility] Hematocrit (Bld) [Volume fraction] 39.4 % 35.0 - 45.0 % [facility] Hemoglobin (Bld) [Mass/Vol] 13.6 g/dL 11.7 - 15.5 g/dL [facility] MCH (RBC) [Entitic mass] 31.5 pg 27. 0 - 33.0 pg [facility] MCHC (RBC) [Mass/Vol] 34.5 g/dL 32.0 - 36.0 g/dL [facility] MCV (RBC) [Entitic vol] 91.2 fL 80.0 - 100.0 fL [facility] Platelet mean volume (Bld) [Entitic vol] 11.0 fL 7.5 - 12.5 fL [facility] Platelet mean volume (Bld) [Entitic vol] 11 fL 7.5 - 12.5 fL [facility] Platelets (Bld) [#/Vol] 402 10*3/uL High [facility] RBC (Bld) [#/Vol] 4.32 10*6/uL [facility] WBC (Bld) [#/Vol] 7.2 10*3/uL [facility] Comprehensive metabolic 1998 panelon 03-05-2023 Albumin [Mass/Vol] 4.3 g/dL 3.6 - 5.1 g/dL [facility] Albumin/Globulin [Mass ratio] 1.2 {ratio} [facility] ALP [Catalytic activity/Vol] 172 U/L High 37 - 153 U/L [facility] ALT [Catalytic activity/Vol] 24 U/L 6 - 29 U/L [facility] AST [Catalytic activity/Vol] 31 U/L 10 - 35 U/L [facility] Bilirubin [Mass/Vol] 0.3 mg/dL 0.2 - 1 .2 mg/dL [facility] Calcium [Mass/Vol] 9.8 mg/dL 8.6 - 10. 4 mg/dL [facility] Chloride [Moles/Vol] 102 mmol/L 98 - 11 0 mmol/L [facility] CO2 [Moles/Vol] 25 mmol/L 20 - 32 mmol/L [facility] Creatinine [Mass/Vol] 0.52 mg/dL 0.50 - 1.03 mg/dL [facility] GFR/1.73 sq M.predicted among non-blacks MDRD (S/P/Bld) [Vol rate/Area] 113 mL/min/{1.73_m2} > OR = 60 mL/min/1.7 3m2 [facility] Globulin (S) [Mass/Vol] 3.5 g/dL S [facility] Glucose [Mass/Vol] 88 mg/dL 65 - 99 mg/dL [facility] Comment on above: Fasting reference interval Potassium [Moles/Vol] 4.2 mmol/L 3.5 - 5.3 mmol/L [facility] Protein [Mass/Vol] 7.8 g/dL 6.1 - 8.1 g/dL [facility] Sodium [Moles/Vol] 139 mmol/L 135 - 146 mmol/L [facility] Urea nitrogen [Mass/Vol] 11 mg/dL 7 - 25 mg/dL [facility] Urea nitrogen/Creatinine [Mass ratio] SEE NOTE: [facility] Comment on above: Not Reported: BUN an d Creatinine are within reference range. Laboratory - Chemistry and C hemistry - challengeon 03-05-2023 25-hydroxyvitamin D3 [Mass/Vol] 31 ng/mL 30 - 100 ng/mL [facility] Comment on above: Vitamin D Status 25- [place] Vitamin D: Deficiency: <20 ng/mL Insufficiency: 20 - 29 ng/mL Optimal: > or = 30 ng/mL For 25-OH Vitamin D testing on patients on D2-supplementation and patients for whom quantitation of D2 and D3 fractions is required, the QuestAssureD(TM) 25-OH VIT D, (D2,D3), LC/MS/MS is recommended: order code 42474 (patients >2yrs). See Note 1 Note 1 For additional information, please refer to http://education.[employer]ee[employer] Software/faq/BCL624 (This link is being provided for informational/ educational purposes only.) Cobalamin (Vitamin B12) [Mass/Vol] 542 pg/mL 200 - 1100 pg/mL [facility] [employer] Lipid 1996 panelon 4 Cholesterol [Mass/Vol] 296 mg/dL High [facility] - 200 mg/dL [facility] [employer] Cholesterol in HDL [Mass/Vol] 76 mg/dL > OR = 50 [facility] [employer] Cholesterol in LDL [Mass/Vol] 179 mg/dL High mg/dL (calc) [facility] [employer] Comment on above: Reference range: <10 0 Desirable range <100 mg/dL for primary prevention; <70 mg/dL for patients with CHD or diabetic patients with > or = 2 CHD risk factors. LDL-C is now calculated using the Vitor-Jacobs calculation, which is a validated novel method providing better accuracy than the Friedewald equation in the estimation of LDL-C. Vitor BRYANT et al. CORTEZ. 2013;310(19): 7657-5756 (http://education.[employer]ee[employer] Software/faq/BNK083) Cholesterol non HDL [Mass/Vol] 220 mg/dL High [facility] [employer] Comment on above: Non-HDL level > or [...] ol in HDL [Mass ratio] 3.9 {ratio} [facility] [employer] Triglyceride [Mass/Vol] 224 mg/dL High NINF - 150 mg/dL [facility] Comment on above: If a non-fasting specimen was collected, consider repeat triglyceride testing on a fasting specimen if clinically indicated. Dennis et al. J. of Clin. Lipidol. 2015;9:129-169. No Panel Informationon 03-05 Interpretation and review of laboratory results Abnormal [facility] Influenza virus A and B and SARS-CoV-2 (COVID-19) Ag panel - Upper respiratory specimOrdered By: Bianca Powers on 02-15-2023 SARS-CoV-2 & FLU Antigen (Rapid) SARS-CoV-2 (COVID 19) [facility] AMB POC DRUG SCREEN 12, LABS OURCEon 02-03-2023 Amphetamine Screen, Urine Negative [facility] Barbiturates Screen Ql (U) Not detected N one Detected [facility] [employer] Benzodiazepines Ql (U) Not detected None Detected [facility] BUPRENORPHINE SCREEN Negative Negative [facility] Cannabinoids Screen (U) [Mass/Vol] Positive [facility] Cocaine Ql (U) Not detected None Detected [facility] FENTANYL SCREEN, URINE Negative Negative [facility] Interpretation and review of laboratory results Abnormal [facility] Methadone Screen Ql (U) Negative S [facility] Methamphetamine (U) [Mass/Vol] Negative [facility] Methylenedioxymethamphetami ne (U) [Mass/Vol] Negative ng/mL [facility] oxyCODONE Ql (U) Positive [facility] Tricyclic antidepressants Screen Ql (U) Positive [facility] CNOVon 11-18-2022 CNOV Office Visit ([facility] ) SUE MONCADA ([id number]) 1970 F UPA Date Time Provider Department 11/18/22 3:00 PM SABRINA TINEO [facility] During your visit today, we recorded the following information about you: Pulse Blood pressure Weight 108/minute 186/99 45 kg Sabrina Tineo MD 11/18/2022 4:01 PM Signed Sabrina Tineo MD Pain Management Pain Management [facility] [address] [id number] Dept: [phone] New Patient Chronic Pain Consult Note Date: 11/18/2022 3:06 PM Referring physician: self This consult was requested by Self for my medical opinion. My final recommendations will be communicated to the referring physician by way of the shared medical record for internal providers or by letter via the [employer]ac[employer] Service for external providers. Nursing Assessment: [...] No Comment: Marijuana laced brownies at a constitution party by accident Allergies: Allergies: Duloxetine Other: [...] headaches CARDIOVASCULAR: Any history of cardiac arrhythmias, [place], prior CVA, or heart failure? No GASTROINTESTINAL: [...] from 9- (more content not included)... Normal [facility] CNPNon 11-18-2022 CNPN Telephone ([facility]) SUE MONCADA ([id number]) 1970 F UPA Date Time Provider Department 11/18/[address] [facility] During your visit today, we recorded the following information about you: Yady Greer 11/18/2022 1:22 PM Signed Dear Patient, This is a follow up phone call regarding your appointment with Dr. Tineo At [facility] Pain Management. Your appointment [...] be communicated to your referring physician. 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 [...] Encounter Status:Closed by YADY GREER on 11/18/22 [facility] Laboratory - Drug toxicology Ordered By: Yovani Rosario on 08-31-2022 Amphetamines Ql (U) Negative <1000 ng/mL [facility] Benzodiazepines Ql (U) Negative < 200 ng/mL [facility] Cannabinoids Screen Ql (U) Positive < 50 ng/m L [facility] Cocaine Ql (U) Negative < 300 ng/mL [facility] Opiates Ql (U) Negative < 300 ng/mL [facility] No Panel InformationOrdered By: Yovani Rosario on 08-31-2022 MDMA (Ecstasy) Screen Negative < 500 ng/mL [facility] Urine Barbiturates Screen Negative < 200 ng/mL [facility] Urine Drug Screen Comment [facility] Comment on above: CONFIRMATORY TESTING FOR ALL [...] Urine Methadone Screen Negative < 300 ng/mL [facility] Urine phencyclidine (PCP) de tectionOrdered By: Yovani Rosario on 08-31-2022 Phencyclidine Ql (U) Negative < 25 ng/mL [facility] Basophil percentageon 2022 Bilirubin [Mass/Vol] 0.20 mg/dL 0.20-1.[address] [facility] Comment on above: For patients on eltr ombopag therapy, use of Dimension Noble TBIL is not recommended. Chloride [Moles/Vol] 103 mmol/L 98-[address] [facility] Glucose [Mass/Vol] 94 mg/dL 74-106 [facility] Potassium [Moles/Vol] 3.5 mmol/L 3.5-5.1 [facility] Protein [Mass/Vol] 7.3 g/dL 6.4-8.2 [facility] Sodium [Moles/Vol] 139 mmol/L 136-145 [facility] WBC (Bld) [#/Vol] 6.1 10*3/uL 4.4-11.0 [facility] Blood erythrocytes count (nu mber/volume)on 05-21-2022 RBC (Bld) [#/Vol] 3.36 10*6/uL 4.2-5.4 [facility] Blood hemoglobin measurement (mass/volume)on 05-21-2022 Hemoglobin (Bld) [Mass/Vol] 10.4 g/dL 12.0-15. 0 [facility] Blood platelet mean volumeon 05-21-2022 Platelet mean volume (Bld) [Entitic vol] 9.7 fL 6.2-12.0 [facility] Determination of erythrocyte mean corpuscular volume (MCV)on 05-21-2022 MCV (RBC) [Entitic vol] 93.8 fL 81-99 [facility] Erythrocyte sedimentation ra ben 05-21-2022 ESR (Bld) [Velocity] 42 mm/h 0-[address] [facility] Hematocrit Auto (Bld) [Volum e fraction]on 05-21-2022 Hematocrit (Bld) [Volume fraction] 31.5 % 37-47 [facility] Laboratory - Chemistry and C hemistry - challengeon 05-21-2022 ALP [Catalytic activity/Vol] 157 U/L 45-117 [facility] ALT [Catalytic activity/Vol] 18 U/L 13-56 [facility] CO2 [Moles/Vol] 29.0 mmol/L 21.0-32.0 [facility] Globulin (S) [Mass/Vol] 4.2 g/dL 2.2-4.2 [facility] Urea nitrogen/Creatinine [Mass ratio] 10.8 mg/mg 10-20 [facility] Laboratory - Hematology and Cell countson 05-21-2022 Erythrocyte distribution width (RBC) [Entitic vol] 44.4 fL 35.1-43.9 [facility] Erythrocyte distribution width (RBC) [Ratio] 13.0 % 11.6-14.6 [facility] MCH (RBC) [Entitic mass] 31.0 pg 27.0-32.0 [facility] MCHC Auto (RBC) [Mass/Vol]on 05-21-2022 MCHC (RBC) [Mass/Vol] 33.0 g/dL 32-36 [facility] No Panel Informationon 05-21 Estimated Creatinine Clearance Calc 64.53 ml/min [facility] Estimated GFR (MDRD) Amer 107 mL/min >60 [facility] Comment on above: GFR Calc Estimated GFR (MDRD) Non-Af Amer 88 mL/min >60 [facility] Comment on above: Non- GFR Calc Platelets bldon 05-21-2022 Platelets (Bld) [#/Vol] 374 10*3/uL 150-450 [facility] Serum or plasma albumin rosalva urement (mass/volume)on 05-21-2022 Albumin [Mass/Vol] 3.1 g/dL 3.2-5.0 [facility] Serum or plasma albumin/glob ulin mass ratioon 05-21-2022 Albumin/Globulin [Mass ratio] 0.7 {ratio} 0.9-2.4 [facility] Serum or plasma calcium rosalva urement (mass/volume)on 05-21-2022 Calcium [Mass/Vol] 9.2 mg/dL 8.5-10.1 [facility] Serum or plasma creatinine m easurement (mass/volume)on 05-21-2022 Creatinine [Mass/Vol] 0.74 mg/dL 0.55-1.02 [facility] Comment on above: The validity of the calculated GFR & GFRAA in patients over 70 years has not been determined. Clinical correlation is essential. Serum or plasma urea nitroge n measurement (mass/volume)on 05-21-2022 Urea nitrogen [Mass/Vol] 8 mg/dL 7-18 [facility] Thin prep Papanicolaou smear with manual screeningon 05-21-2022 Thin prep Papanicolaou smear with manual screening 30 U/L 15-[address] [facility] Thin prep Papanicolaou smear with manual screening 7 5-[address] [facility] Basophil percentageon 2022 Bilirubin [Mass/Vol] 0.20 mg/dL 0.20-1.[address] [facility] Comment on above: For patients on eltr ombopag therapy, use of Dimension Noble TBIL is not recommended. Chloride [Moles/Vol] 102 mmol/L 98-[address] [facility] Glucose [Mass/Vol] 104 mg/dL 74-106 [facility] Comment on above: Fasting Glucose resu lt from 100 to 125 mg/dL suggests IMPAIRED HOMEOSTASIS per A.D.A. criteria. Potassium [Moles/Vol] 3.1 mmol/L 3.5-5.1 [facility] Protein [Mass/Vol] 7.4 g/dL 6.4-8.2 [facility] Sodium [Moles/Vol] 138 mmol/L 136-145 [facility] WBC (Bld) [#/Vol] 7.4 10*3/uL 4.4-11.0 [facility] Blood erythrocytes count (nu mber/volume)on 05-14-2022 RBC (Bld) [#/Vol] 3.51 10*6/uL 4.2-5.4 [facility] Blood hemoglobin measurement (mass/volume)on 05-14-2022 Hemoglobin (Bld) [Mass/Vol] 10.6 g/dL 12.0-15. 0 [facility] Blood platelet mean volumeon 05-14-2022 Platelet mean volume (Bld) [Entitic vol] 9.5 fL 6.2-12.0 [facility] Determination of erythrocyte mean corpuscular volume (MCV)on 05-14-2022 MCV (RBC) [Entitic vol] 92.6 fL 81-99 [facility] Erythrocyte sedimentation ra ben 05-14-2022 ESR (Bld) [Velocity] 40 mm/h 0-[address] [facility] Hematocrit Auto (Bld) [Volum e fraction]on 05-14-2022 Hematocrit (Bld) [Volume fraction] 32.5 % 37-47 [facility] [facility] - Chemistry and C hemistry - challengeon 05-14-2022 ALP [Catalytic activity/Vol] 141 U/L 45-117 [facility] ALT [Catalytic activity/Vol] 11 U/L 13-56 [facility] CO2 [Moles/Vol] 27.0 mmol/L 21.0-32.0 [facility] Globulin (S) [Mass/Vol] 4.5 g/dL 2.2-4.2 [facility] Urea nitrogen/Creatinine [Mass ratio] 10.8 mg/mg 10-20 [facility] - Hematology and Cell countson 05-14-2022 Erythrocyte distribution width (RBC) [Entitic vol] 43.8 fL 35.1-43.9 [facility] Erythrocyte distribution width (RBC) [Ratio] 12.9 % 11.6-14.6 [facility] MCH (RBC) [Entitic mass] 30.2 pg 27.0-32.0 [facility] MCHC Auto (RBC) [Mass/Vol]on 05-14-2022 MCHC (RBC) [Mass/Vol] 32.6 g/dL 32-36 [facility] No Panel Informationon 05-14 Estimated Creatinine Clearance Calc 51.35 ml/min [facility] Estimated GFR (MDRD) Amer 83 mL/min >60 [facility] Comment on above: GFR Calc Estimated GFR (MDRD) Non-Af Amer 68 mL/min >60 [facility] Comment on above: Non- GFR Calc Platelets bldon 05-14-2022 Platelets (Bld) [#/Vol] 363 10*3/uL 150-450 [facility] Serum or plasma albumin rosalva urement (mass/volume)on 05-14-2022 Albumin [Mass/Vol] 2.9 g/dL 3.2-5.0 [facility] Serum or plasma albumin/glob ulin mass ratioon 05-14-2022 Albumin/Globulin [Mass ratio] 0.6 {ratio} 0.9-2.4 [facility] Serum or plasma calcium rosalva urement (mass/volume)on 05-14-2022 Calcium [Mass/Vol] 9.4 mg/dL 8.5-10.1 [facility] Serum or plasma creatinine m easurement (mass/volume)on 05-14-2022 Creatinine [Mass/Vol] 0.93 mg/dL 0.55-1.02 [facility] Comment on above: The validity of the calculated GFR & GFRAA in patients over 70 years has not been determined. Clinical correlation is essential. Serum or plasma urea nitroge n measurement (mass/volume)on 05-14-2022 Urea nitrogen [Mass/Vol] 10 mg/dL 7-18 [facility] Thin prep Papanicolaou smear with manual screeningon 05-14-2022 Thin prep Papanicolaou smear with manual screening 22 U/L 15-[address] [facility] Thin prep Papanicolaou smear with manual screening 9 5-[address] [facility] Vancomycin troughon 05-15-19 Vancomycin trough [Mass/Vol] ug/mL 5.0-15.0 [facility] Comment on above: VANCOMYCIN STANDARED DRUG THERAPY TROUGH LEVEL: 5.0 - 15.0 mg/L VANCOMYCIN HIGH INTENSITY THERAPY TROUGH LEVEL: 15.0 - 20.0 mg/L High Intensity therapy recommended for serious lifethreatening infections include:- Ihkijpinum-Lplsmwuuollu-Uqorixray (Ventilator/Healtcare Associated)-Sepsis PLEASE CONTACT PHARMACY SERVICES (#[id number]) FOR INTERPRETATIONOF RESULTS. LABORATORYOrdered By: SYSTEM SYSTEM [...] 10.8 10^3/mcL AH Workflow SS LABORATORYOrdered By: Adrianna Martinez on 05-05-2022 Clostridium difficile PCR Negative 1 (05/05/22 9:26 AM) Invalid Interpretation Code Negative Auto Viro/Sero SS Comment on above: Result Comment: Note s [id number] Clostridium difficile PCR Int No tcdB gene [...] 10^3/mcL AH Workflow SS Eosinophils/100 WBC (Bld) 0.1 % Invali d Interpretation Code 0.0 - 6.0 % Workflow SS Erythrocyte distribution width (RBC) [Ratio] 13.2 % Invalid Interpretation Code 11.5 - 15.5 % AH Workflow SS GFR/1.73 sq M.predicted among blacks MDRD (S/P/Bld) [Vol rate/Area] ml/min/1.73sqm Invalid Interpretation Code AH Chemistry S GFR/1.73 sq M.predicted among non-blacks MDRD (S/P/Bld) [Vol rate/Area] 59 ml/min/1.73sqm Invalid Interpretation Code Chemistry S Glucose [Mass/Vol] 88 mg/dL Invalid Interpretation Code 70 - 110 mg/dL ADM SS Hematocrit (Bld) [Volume fraction] 34.8 % Invalid Interpretation Code 34.0 - 46.0 % Workflow SS Hemoglobin (Bld) [Mass/Vol] 11.7 G/dL Inva lid Interpretation Code 12.0 - 16.0 G/dL Workflow SS Lymphocytes (Bld) [#/Vol] 1.4 103/mcL Invali d Interpretation Code 0.9 - 4.3 10^3/mcL Workflow SS Lymphocytes/100 WBC (Bld) 15.0 % Invali d Interpretation Code 20.0 - 40.0 % Workflow SS MCH (RBC) [Entitic mass] 30.7 [...] 1.4 10^3/mcL Workflow SS Monocytes/100 WBC (Bld) 9.0 % Invalid Interpretation Code 2.0 - 13.0 % Workflow SS Neutrophils (Bld) [#/Vol] 6.9 103/mcL Invali d Interpretation Code 2.3 - 8.1 10^3/mcL Workflow SS Neutrophils/100 WBC (Bld) 74.6 % [...] 5.30 10^6/mcL AH Workflow SS Sodium [Moles/Vol] 144 mmol/L Invalid Interpretation Code 136 - 145 mEq/L ADM SS Urea nitrogen [Mass/Vol] 9.0 mg/dL Invalid Interpretation Code 8.0 - 22.0 mg/dL ADM SS Urea nitrogen/Creatinine [Mass ratio] 9.0 ratio Invalid Interpretation Code 10.0 - 22.0 ratio AH ADM SS Vancomycin trough [Mass/Vol] 13.4 ug/mL [...] % AH Workflow SS Neutrophils (Bld) [#/Vol] 6.5 103/mcL [...] 1.6 ratio ADM SS ALP [Catalytic activity/Vol] 241 U/L Invalid Interpretation Code 38 - 126 U/L ADM SS ALT No additional P-5'-P [Catalytic activity/Vol] 29 U/L Invalid Interpretation Code 10 - 49 U/L ADM SS AST [Catalytic activity/Vol] 38 U/L Invalid Interpretation Code 8 - 34 U/L ADM SS Bilirubin [Mass/Vol] 0.30 mg/dL Invalid Interpretation Code 0.20 - 1.20 mg/dL ADM SS CK [Catalytic activity/Vol] 47 U/L Inva lid Interpretation Code 7 - 185 U/L ADM SS Globulin 3.6 G/dL Invalid Interpretation Code 1.5 - 3.8 G/dL ADM SS Magnesium [Mass/Vol] 2.0 mg/dL Invalid Interpretation Code 1.6 - 2.4 mg/dL ADM SS Protein [Mass/Vol] 6.1 G/dL Invalid Interpretation Code 5.7 - 8.2 G/dL ADM SS LABORATORYOrdered By: Martín Curtis on 05-02-2022 INR Coag (PPP) [Relative time] 0.9 {INR} Invalid Interpretation Code Auto Coag SS PT Coag (PPP) [Time] 10.8 s Invalid Interpretation Code 9.0 - 14.9 seconds Auto Coag SS LABORATORYOrdered By: Ashley Heck on 05-02-2022 Lactate [Moles/Vol] 1.0 mmol/L Invalid Interpretation Code 0.2 - 2.0 mmol/L Auto Chem SS LABORATORYOrdered By: SYSTEM SYSTEM [...] Culture Wound Aerobe No growth to date [facility] Work Phone: GS 1+ Polymorphonuclear cells Rare Mononuclear cells Rare Epithelial cells No organisms seen. [facility] Work Phone: LABORATORYOrdered By: Gisella [...] or 2. Interpretative criteria are not available. [facility] Work Phone: GS Rare Epithelial cell s No organisms seen. [facility] Work Phone: Microscopic examination of blood, culture Culture has been received in lab and is no growth to date. Routine cultures are held for 5 days. [facility] Work Phone: LABORATORYOrdered By: SYSTEM [...] some clinical conditions. Invalid Interpretation Code EDDIE Chemistry S [facility] 11-06-2021 [facility] Office Visit (SPAGWO ) SUE MONCADA ([id number]) 1970 F Date Time Provider Department 11/06/21 9:30 AM MARCELLUS ROSADO During your visit today, we recorded the following information about you: Pulse Respiration Normal [facility] 10-02-2021 [facility] Office Visit (SPAGWO ) SUE MONCADA ([id number]) 1970 F Date Time Provider Department 10/02/21 9:00 AM CAMELIA JOE During your visit today, we recorded the following information about you: Pulse Respiration Normal [facility] Vital Signs Date Time Vital Sign Value Performing Clinician Facility 09-11-2024 14:26-0400 Body height 137.16 cm [employer] Work Phone: [facility] 09-11-2024 14:26-0400 Body mass index (BMI) [Ratio] 24.5 kg/m2 [employer] Work Phone: [facility] 09-11-2024 14:26-0400 Body weight 46.03 kg [employer] Work Phone: [facility] 08-30-2024 16:14-0400 Diastolic blood pressure 78 mm[Hg] Jeri Bridenthal [employer]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 STRATEGIST Work Phone: [facility] [employer] 08-30-2024 16:14-0400 Heart rate 97 /min Jeri Bridenthal [employer]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 Work Phone: [facility] [employer] 08-30-2024 16:14-0400 Systolic blood pressure 129 mm[Hg] Jeri Bridenthal [employer]IN[employer]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 STRATEGIST Work Phone: [facility] [employer] 08-30-2024 15:33-0400 Body mass index (BMI) [Ratio] 23.87 kg/m2 Jeri Bridenthal [employer]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 STRATEGIST Work Phone: [facility] [employer] 08-30-2024 15:33-0400 Body temperature 98.91 [degF] Jeri Bridenthal [employer]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 STRATEGIST Work Phone: [facility] [employer] 08-30-2024 15:33-0400 Body weight 44.91 kg Jeri Bridenthal [employer]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 STRATEGIST Work Phone: [facility] [employer] 08-30-2024 15:33-0400 Respiratory rate 24 /min Jeri Bridenthal [employer]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 STRATEGIST Work Phone: [facility] [employer] 08-30-2024 15:33-0400 SaO2% (BldA) [Mass fraction] 97 % Jeri Bridenthal [employer]IN[employer]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 STRATEGIST Work Phone: [facility] [employer] 05-31-2024 16:03-0400 Diastolic blood pressure 78 mm[Hg] Jeri Bridenthal [employer]IN[employer]C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 STRATEGIST Work Phone: [facility] [employer] 05-31-2024 16:03-0400 Heart rate 98 /min Jeri Bridenthal REIN[employer]C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 STRATEGIST Work Phone: [facility] [employer] 05-31-2024 16:03-0400 Systolic blood pressure 135 mm[Hg] Jeri Bridenthal [employer]IN[employer]C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 STRATEGIST Work Phone: [facility] [employer] 05-31-2024 15:19-0400 Body mass index (BMI) [Ratio] 24.26 kg/m2 Jeri Bridenthal [employer]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 STRATEGIST Work Phone: [facility] [employer] 05-31-2024 15:19-0400 Body temperature 98.29 [degF] Jeri Bridenthal REIN[employer]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 STRATEGIST Work Phone: [facility] [employer] 05-31-2024 15:19-0400 Body weight 45.63 kg Jeri Bridenthal REIN[employer]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 STRATEGIST Work Phone: [facility] [employer] 05-31-2024 15:19-0400 Respiratory rate 18 /min Jeri Bridenthal [employer]IN[employer]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 STRATEGIST Work Phone: [facility] [employer] 05-31-2024 15:19-0400 SaO2% (BldA) [Mass fraction] 97 % Jeri Bridenthal [employer]IN[employer]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 STRATEGIST Work Phone: [facility] [employer] 03-14-2024 14:42-0500 Body height 137.2 cm Jeri Bridenthal [employer]IN[employer]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 STRATEGIST Work Phone: [facility] [employer] 03-14-2024 14:42-0500 Body mass index (BMI) [Ratio] 23.63 kg/m2 Jeri Bridenthal [employer]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 STRATEGIST Work Phone: [facility] [employer] 03-14-2024 14:42-0500 Body temperature 98.4 [degF] Jeri Bridenthal REIN[employer]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 STRATEGIST Work Phone: [facility] [employer] 03-14-2024 14:42-0500 Body weight 44.45 kg Jeri Bridenthal REIN[employer]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 STRATEGIST Work Phone: [facility] [employer] 03-14-2024 14:42-0500 Diastolic blood pressure 79 mm[Hg] Jeri Bridenthal REIN[employer]C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 STRATEGIST Work Phone: [facility] [employer] 03-14-2024 14:42-0500 Heart rate 94 /min Jeri Bridenthal [employer]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 STRATEGIST Work Phone: [facility] [employer] 03-14-2024 14:42-0500 Respiratory rate 20 /min Jeri Bridenthal [employer]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 STRATEGIST Work Phone: [facility] [employer] 03-14-2024 14:42-0500 SaO2% (BldA) [Mass fraction] 95 % Jeri Bridenthal REIN[employer]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 STRATEGIST Work Phone: [facility] [employer] 03-14-2024 14:42-0500 Systolic blood pressure 133 mm[Hg] Jeri Bridenthal RE[employer]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 STRATEGIST Work Phone: [facility] [employer] 01-11-2024 16:05-0500 Diastolic blood pressure 83 mm[Hg] Jeri Bridenthal REIN[employer]C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 STRATEGIST Work Phone: [facility] [employer] 01-11-2024 16:05-0500 Heart rate 86 /min Jeri Bridenthal REIN[employer]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 STRATEGIST Work Phone: [facility] [employer] 01-11-2024 16:05-0500 Systolic blood pressure 149 mm[Hg] Jeri Bridenthal REIN[employer]C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 STRATEGIST Work Phone: [facility] [employer] 01-11-2024 15:20-0500 Body mass index (BMI) [Ratio] 24.88 kg/m2 Jeri Bridenthal REIN[employer]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 STRATEGIST Work Phone: [facility] [employer] 01-11-2024 15:20-0500 Body temperature 99.1 [degF] Jeri Bridenthal REIN[employer]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 STRATEGIST Work Phone: [facility] 01-11-2024 15:20-0500 Body weight 46.81 kg Jeri Bridenthal REIN[employer]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 STRATEGIST Work Phone: [facility] [employer] 01-11-2024 15:20-0500 Respiratory rate 24 /min Jeri Bridenthal REIN[employer]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 STRATEGIST Work Phone: [facility] 01-11-2024 15:20-0500 SaO2% (BldA) [Mass fraction] 98 % Jeri Bridenthal REIN[employer]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 STRATEGIST Work Phone: [facility] [employer] 12-09-2023 13:53-0400 Diastolic blood pressure 77 mm[Hg] Jeri Bridenthal REIN[employer]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 STRATEGIST Work Phone: [facility] [employer] 12-09-2023 13:53-0400 Heart rate 83 /min Jeri Bridenthal REIN[employer]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 STRATEGIST Work Phone: [facility] [employer] 12-09-2023 13:53-0400 Systolic blood pressure 119 mm[Hg] Jeri Bridenthal REIN[employer]C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 STRATEGIST Work Phone: [facility] [employer] 12-09-2023 13:03-0400 Body mass index (BMI) [Ratio] 23.97 kg/m2 Jeri Bridenthal REIN[employer]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 STRATEGIST Work Phone: [facility] [employer] 12-09-2023 13:03-0400 Body temperature 99.1 [degF] Jeri Bridenthal REIN[employer]C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 STRATEGIST Work Phone: [facility] [employer] 12-09-2023 13:03-0400 Body weight 45.09 kg Jeri Bridenthal REIN[employer]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 STRATEGIST Work Phone: [facility] [employer] 12-09-2023 13:03-0400 Respiratory rate 20 /min Jeri Bridenthal REIN[employer]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 STRATEGIST Work Phone: [facility] 12-09-2023 13:03-0400 SaO2% (BldA) [Mass fraction] 95 % Jeri Bridenthal REIN[employer]C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 STRATEGIST Work Phone: [facility] [employer] 11-03-2023 15:22-0400 Body mass index (BMI) [Ratio] 23.82 kg/m2 Jeri Bridenthal REIN[employer]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 STRATEGIST Work Phone: [facility] [employer] 11-03-2023 15:22-0400 Body temperature 99.1 [degF] Jeri Bridenthal REIN[employer]C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 STRATEGIST Work Phone: [facility] 11-03-2023 15:22-0400 Body weight 44.81 kg Jeri Bridenthal REIN[employer]C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 STRATEGIST Work Phone: [facility] 11-03-2023 15:22-0400 Diastolic blood pressure 92 mm[Hg] Jeri Bridenthal REIN[employer]C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 STRATEGIST Work Phone: [facility] 11-03-2023 15:22-0400 Heart rate 89 /min Jeri Bridenthal REIN[employer]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 STRATEGIST Work Phone: [facility] 11-03-2023 15:22-0400 Respiratory rate 18 /min Jeri Bridenthal REIN[employer]C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 STRATEGIST Work Phone: [facility] 11-03-2023 15:22-0400 SaO2% (BldA) [Mass fraction] 98 % Jeri Bridenthal REIN[employer]C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 STRATEGIST Work Phone: [facility] 11-03-2023 15:22-0400 Systolic blood pressure 179 mm[Hg] Jeri Bridenthal REIN[employer]C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 STRATEGIST Work Phone: [facility] 10-26-2023 14:27-0400 Body height 137.2 cm Estefanía Vera MD Work Phone: [facility] 10-26-2023 14:27-0400 Body mass index (BMI) [Ratio] 23.63 kg/m2 Estefanía Vera MD Work Phone: [facility] 10-26-2023 14:27-0400 Body weight 44.45 kg Estefanía Vera MD Work Phone: [facility] 10-06-2023 15:51-0400 Diastolic blood pressure 96 mm[Hg] Jeri Bridenthal REIN[employer]C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 STRATEGIST Work Phone: [facility] 10-06-2023 15:51-0400 Heart rate 80 /min Jeri Bridenthal REIN[employer]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 STRATEGIST Work Phone: [facility] 10-06-2023 15:51-0400 Systolic blood pressure 180 mm[Hg] Jeri Bridenthal REIN[employer]C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 STRATEGIST Work Phone: [facility] 10-06-2023 15:18-0400 Body mass index (BMI) [Ratio] 23.19 kg/m2 Jeri Bridenthal REIN[employer]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 STRATEGIST Work Phone: [facility] 10-06-2023 15:18-0400 Body weight 43.64 kg Jeri Bridenthal REIN[employer]C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 STRATEGIST Work Phone: [facility] 10-06-2023 15:18-0400 Respiratory rate 24 /min Jeri Bridenthal REIN[employer]C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 STRATEGIST Work Phone: [facility] 10-06-2023 15:18-0400 SaO2% (BldA) [Mass fraction] 98 % Jeri Bridenthal REIN[employer]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 STRATEGIST Work Phone: [facility] 09-09-2023 15:28-0400 Body mass index (BMI) [Ratio] 23.63 kg/m2 Jeri Bridenthal REIN[employer]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 STRATEGIST Work Phone: [facility] 09-09-2023 15:28-0400 Body temperature 96.8 [degF] Jeri Bridenthal REIN[employer]C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 STRATEGIST Work Phone: [facility] 09-09-2023 15:28-0400 Body weight 44.45 kg Jeri Bridenthal REIN[employer]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 STRATEGIST Work Phone: [facility] 09-09-2023 15:28-0400 Diastolic blood pressure 87 mm[Hg] Jeri Bridenthal REIN[employer]C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 STRATEGIST Work Phone: [facility] 09-09-2023 15:28-0400 Heart rate 98 /min Jeri Bridenthal REIN[employer]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 STRATEGIST Work Phone: [facility] 09-09-2023 15:28-0400 Respiratory rate 26 /min Jeri Bridenthal REIN[employer]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 STRATEGIST Work Phone: [facility] 09-09-2023 15:28-0400 SaO2% (BldA) [Mass fraction] 99 % Jeri Bridenthal REIN[employer]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 STRATEGIST Work Phone: [facility] 09-09-2023 15:28-0400 Systolic blood pressure 165 mm[Hg] Jeri Bridenthal REIN[employer]C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 STRATEGIST Work Phone: [facility] 08-12-2023 15:02-0400 Body mass index (BMI) [Ratio] 23.87 kg/m2 Sb Schedule [facility] 08-12-2023 15:02-0400 Body weight 44.91 kg Sbh Schedule [facility] 08-12-2023 15:02-0400 Diastolic blood pressure 88 mm[Hg] Sbh Schedule [facility] 08-12-2023 15:02-0400 Heart rate 97 /min Sbh Schedule [facility] 08-12-2023 15:02-0400 SaO2% (BldA) [Mass fraction] 98 % Sbh Schedule [facility] 08-12-2023 15:02-0400 Systolic blood pressure 168 mm[Hg] Sbh Schedule [facility] 08-12-2023 11:01-0400 Body mass index (BMI) [Ratio] 23.77 kg/m2 Jeri Abilioenthal RE[employer]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 STRATEGIST Work Phone: [facility] 08-12-2023 11:01-0400 Body temperature 98.6 [degF] Jeri Bridenthal REIN[employer]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 STRATEGIST Work Phone: [facility] [employer] 08-12-2023 11:01-0400 Body weight 44.73 kg Jeri Abilioenthal REIN[employer]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 STRATEGIST Work Phone: [facility] 08-12-2023 11:01-0400 Diastolic blood pressure 91 mm[Hg] Jeri Bridenthal REIN[employer]C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 STRATEGIST Work Phone: [facility] 08-12-2023 11:01-0400 Heart rate 106 /min Jeri Bridenthal REIN[employer]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 STRATEGIST Work Phone: [facility] 08-12-2023 11:01-0400 Respiratory rate 24 /min Jeri Bridenthal REIN[employer]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 STRATEGIST Work Phone: [facility] 08-12-2023 11:01-0400 SaO2% (BldA) [Mass fraction] 98 % Jeri Bridenthal REIN[employer]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 STRATEGIST Work Phone: [facility] 08-12-2023 11:01-0400 Systolic blood pressure 179 mm[Hg] Jeri Bridenthal REIN[employer]C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 STRATEGIST Work Phone: [facility] 07-28-2023 15:58-0400 Diastolic blood pressure 83 mm[Hg] Jeri Bridenthal REIN[employer]C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 STRATEGIST Work Phone: [facility] 07-28-2023 15:58-0400 Systolic blood pressure 176 mm[Hg] Jeri Bridenthal REIN[employer]C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 STRATEGIST Work Phone: [facility] 07-28-2023 15:19-0400 Body mass index (BMI) [Ratio] 24.21 kg/m2 Jeri Bridenthal REIN[employer]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 STRATEGIST Work Phone: [facility] 07-28-2023 15:19-0400 Body temperature 98.29 [degF] Jeri Bridenthal REIN[employer]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 STRATEGIST Work Phone: [facility] 07-28-2023 15:19-0400 Body weight 45.54 kg Jeri Bridenthal REIN[employer]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 STRATEGIST Work Phone: [facility] 07-28-2023 15:19-0400 Heart rate 103 /min Jeri Bridenthal REIN[employer]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 STRATEGIST Work Phone: [facility] 07-28-2023 15:19-0400 Respiratory rate 18 /min Jeri Bridenthal REIN[employer]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 STRATEGIST Work Phone: [facility] 07-28-2023 15:19-0400 SaO2% (BldA) [Mass fraction] 94 % Jeri Bridenthal REIN[employer]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 STRATEGIST Work Phone: [facility] 05-20-2023 14:48-0400 Body mass index (BMI) [Ratio] 24.3 kg/m2 Jeri Bridenthal REIN[employer]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 STRATEGIST Work Phone: [facility] 05-20-2023 14:48-0400 Body temperature 99.1 [degF] Jeri Bridenthal REIN[employer]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 STRATEGIST Work Phone: [facility] 05-20-2023 14:48-0400 Body weight 45.72 kg Jeri Bridenthal REIN[employer]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 STRATEGIST Work Phone: [facility] 05-20-2023 14:48-0400 Diastolic blood pressure 82 mm[Hg] Jeri Bridenthal REIN[employer]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 STRATEGIST Work Phone: [facility] 05-20-2023 14:48-0400 Heart rate 86 /min Jeri Bridenthal REIN[employer]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 STRATEGIST Work Phone: [facility] 05-20-2023 14:48-0400 Respiratory rate 18 /min Jeri Bridenthal REIN[employer]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 STRATEGIST Work Phone: [facility] [facility] 05-20-2023 14:48-0400 SaO2% (BldA) [Mass fraction] 96 % Jeri Bridenthal REINFORC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 STRATEGIST Work Phone: [facility] [employer] 05-20-2023 14:48-0400 Systolic blood pressure 138 mm[Hg] Jeri Bridenthal REINFORC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 STRATEGIST Work Phone: [facility] [employer] 04-29-2023 15:01-0400 Body mass index (BMI) [Ratio] 24.59 kg/m2 Jeri Bridenthal REINFORC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 STRATEGIST Work Phone: [facility] [employer] 04-29-2023 15:01-0400 Body temperature 98.91 [degF] Jeri Bridenthal REINFORC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 STRATEGIST Work Phone: [facility] [employer] 04-29-2023 15:01-0400 Body weight 46.27 kg Jeri Bridenthal REINFORC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 STRATEGIST Work Phone: [facility] [employer] 04-29-2023 15:01-0400 Diastolic blood pressure 73 mm[Hg] Jeri Bridenthal REINFORC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 STRATEGIST Work Phone: [facility] [employer] 04-29-2023 15:01-0400 Heart rate 90 /min Jeri Bridenthal REINFORC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 STRATEGIST Work Phone: [facility] [employer] 04-29-2023 15:01-0400 Respiratory rate 24 /min Jeri Bridenthal REINFORC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 STRATEGIST Work Phone: [facility] [employer] 04-29-2023 15:01-0400 SaO2% (BldA) [Mass fraction] 96 % Jeri Bridenthal REINFORC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 STRATEGIST Work Phone: [facility] [employer] 04-29-2023 15:01-0400 Systolic blood pressure 120 mm[Hg] Jeri Bridenthal REINFORC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 STRATEGIST Work Phone: [facility] [employer] 03-31-2023 15:22-0500 Body height 137.2 cm Jeri Bridenthal REINFORC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 STRATEGIST Work Phone: [facility] [employer] 03-31-2023 15:22-0500 Body mass index (BMI) [Ratio] 24.35 kg/m2 Jeri Bridenthal REINFORC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 STRATEGIST Work Phone: [facility] [employer] 03-31-2023 15:22-0500 Body temperature 98.91 [degF] Jeri Bridenthal REINFORC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 STRATEGIST Work Phone: [facility] [employer] 03-31-2023 15:22-0500 Body weight 45.81 kg Jeri Bridenthal REINFORC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 STRATEGIST Work Phone: [facility] [employer] 03-31-2023 15:22-0500 Diastolic blood pressure 71 mm[Hg] Jeri Bridenthal REINFORC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 STRATEGIST Work Phone: [facility] [employer] 03-31-2023 15:22-0500 Heart rate 87 /min Jeri Bridenthal REINFORC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 STRATEGIST Work Phone: [facility] [employer] 03-31-2023 15:22-0500 SaO2% (BldA) [Mass fraction] 97 % Jeri Bridenthal REINFORC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 STRATEGIST Work Phone: [facility] [employer] 03-31-2023 15:22-0500 Systolic blood pressure 119 mm[Hg] Jeri Bridenthal REINFORC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 STRATEGIST Work Phone: [facility] [employer] 03-04-2023 09:51-0500 Diastolic blood pressure 79 mm[Hg] Jeri Bridenthal REINFORC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 STRATEGIST Work Phone: [facility] [employer] 03-04-2023 09:51-0500 Systolic blood pressure 124 mm[Hg] Jeri Bridenthal REINFORC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 STRATEGIST Work Phone: [facility] [employer] 03-04-2023 08:58-0500 Body height 137.2 cm Jeri Bridenthal REINFORC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 STRATEGIST Work Phone: [facility] [employer] 03-04-2023 08:58-0500 Body mass index (BMI) [Ratio] 24.06 kg/m2 Jeri Bridenthal REINFORC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 STRATEGIST Work Phone: [facility] [employer] 03-04-2023 08:58-0500 Body temperature 98.91 [degF] Jeri Bridenthal REINFORC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 STRATEGIST Work Phone: [facility] [employer] 03-04-2023 08:58-0500 Body weight 45.27 kg Jeri Bridenthal REINFORC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 STRATEGIST Work Phone: [facility] [employer] 03-04-2023 08:58-0500 Heart rate 102 /min Jeri Bridenthal REINFORC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 STRATEGIST Work Phone: [facility] [employer] 03-04-2023 08:58-0500 Respiratory rate 24 /min Jeri Bridenthal REINFORC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 STRATEGIST Work Phone: [facility] [employer] 03-04-2023 08:58-0500 SaO2% (BldA) [Mass fraction] 97 % Jeri Bridenthal REINFORC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 STRATEGIST Work Phone: [facility] [employer] 02-15-2023 14:22-0500 Body height 137.[address] Rayo Cantu Work Phone: [facility] 02-15-2023 14:22-0500 Body mass index (BMI) [Ratio] 24.1 kg/m2 Dr. Rayo Cantu Work Phone: [facility] 02-15-2023 14:22-0500 Body temperature 97.2 [degF] Dr. Rayo Cantu Work Phone: [facility] 02-15-2023 14:22-0500 Body weight 45.[address] Rayo Cantu Work Phone: [facility] 02-15-2023 14:22-0500 Diastolic blood pressure 92 mm[Hg] Dr. Rayo Cantu Work Phone: [facility] 02-15-2023 14:22-0500 Heart rate 106 /min Dr. Rayo Cantu Work Phone: [facility] 02-15-2023 14:22-0500 Respiratory rate 16 /min Dr. Rayo Cantu Work Phone: [facility] 02-15-2023 14:22-0500 SaO2% (BldA) [Mass fraction] 100 % Dr. Rayo Cantu Work Phone: [facility] 02-15-2023 14:22-0500 Systolic blood pressure 175 mm[Hg] Dr. Rayo Cantu Work Phone: [facility] 02-03-2023 15:42-0500 Diastolic blood pressure 83 mm[Hg] Jeri Bridenthal REINFORC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 STRATEGIST Work Phone: [facility] 02-03-2023 15:42-0500 Systolic blood pressure 150 mm[Hg] Jeri Bridenthal REINFORC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 STRATEGIST Work Phone: [facility] 02-03-2023 15:07-0500 Body mass index (BMI) [Ratio] 24.11 kg/m2 Jeri Bridenthal REINFORC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 STRATEGIST Work Phone: [facility] 02-03-2023 15:07-0500 Body temperature 98.6 [degF] Jeri Bridenthal REINFORC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 STRATEGIST Work Phone: [facility] 02-03-2023 15:07-0500 Body weight 45.36 kg Jeri Bridenthal REINFORC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 STRATEGIST Work Phone: [facility] [employer] 02-03-2023 15:07-0500 Heart rate 89 /min Jeri Bridenthal REINFORC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 STRATEGIST Work Phone: [facility] [employer] 02-03-2023 15:07-0500 Respiratory rate 18 /min Jeri Bridenthal REINFORC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 STRATEGIST Work Phone: [facility] [employer] 02-03-2023 15:07-0500 SaO2% (BldA) [Mass fraction] 98 % Jeri Bridenthal REINFORC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 STRATEGIST Work Phone: [facility] [employer] 01-06-2023 15:02-0500 Body mass index (BMI) [Ratio] 23.15 kg/m2 Jeri Bridenthal REINFORC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 STRATEGIST Work Phone: [facility] [employer] 01-06-2023 15:02-0500 Body temperature 98.6 [degF] Jeri Bridenthal REINFORC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 STRATEGIST Work Phone: [facility] [employer] 01-06-2023 15:02-0500 Body weight 43.55 kg Jeri Bridenthal REINFORC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 STRATEGIST Work Phone: [facility] [employer] 01-06-2023 15:02-0500 Diastolic blood pressure 82 mm[Hg] Jeri Bridenthal REINFORC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 STRATEGIST Work Phone: [facility] [employer] 01-06-2023 15:02-0500 Heart rate 92 /min Jeri Bridenthal REINFORC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 STRATEGIST Work Phone: [facility] [employer] 01-06-2023 15:02-0500 Respiratory rate 20 /min Jeri Bridenthal REINFORC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 STRATEGIST Work Phone: [facility] [employer] 01-06-2023 15:02-0500 SaO2% (BldA) [Mass fraction] 98 % Jeri Bridenthal REINFORC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 STRATEGIST Work Phone: [facility] [employer] 01-06-2023 15:02-0500 Systolic blood pressure 176 mm[Hg] Jeri Bridenthal REINFORC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 STRATEGIST Work Phone: [facility] [employer] 11-24-2022 09:53-0400 Diastolic blood pressure 93 mm[Hg] Jeri Bridenthal REINFORC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 STRATEGIST Work Phone: [facility] [employer] 11-24-2022 09:53-0400 Heart rate 57 /min Jeri Bridenthal REINFORC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 STRATEGIST Work Phone: [facility] [employer] 11-24-2022 09:53-0400 Systolic blood pressure 166 mm[Hg] Jeri Bridenthal REINFORC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 STRATEGIST Work Phone: [facility] [employer] 11-24-2022 08:43-0400 Body height 137.2 cm Jeri Bridenthal REINFORC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 STRATEGIST Work Phone: [facility] [employer] 11-24-2022 08:43-0400 Body mass index (BMI) [Ratio] 23.48 kg/m2 Jeri Bridenthal REINFORC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 STRATEGIST Work Phone: [facility] [employer] 11-24-2022 08:43-0400 Body temperature 98.4 [degF] Ejri Bridenthal REINFORC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 STRATEGIST Work Phone: [facility] [employer] 11-24-2022 08:43-0400 Body weight 44.18 kg Jeri Bridenthal REINFORC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 STRATEGIST Work Phone: [facility] [employer] 11-24-2022 08:43-0400 Respiratory rate 20 /min Jeri Bridenthal REINFORC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 STRATEGIST Work Phone: [facility] [employer] 11-24-2022 08:43-0400 SaO2% (BldA) [Mass fraction] 98 % Jeri Bridenthal REINFORC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 STRATEGIST Work Phone: [facility] [employer] 11-18-2022 15:04-0400 Body weight 45 kg Sabrina Tineo MD Work Phone: [facility] 11-18-2022 15:04-0400 Diastolic blood pressure 99 mm[Hg] Sabrina Tineo MD Work Phone: [facility] 11-18-2022 15:04-0400 Heart rate 108 /min Sabrina Tineo MD Work Phone: [facility] 11-18-2022 15:04-0400 Systolic blood pressure 186 mm[Hg] Sabrina Tineo MD Work Phone: [facility] 06-22-2022 14:03-0400 Body height 137.16 cm SCALE BALANCER-C Solis Serichi SCALE BALANCER Work Phone: [facility] 05-21-2022 15:50-0400 Body temperature 97.3 [degF] SCALE BALANCER-C Tea Ruiz SCALE BALANCER Work Phone: [facility] 05-21-2022 15:50-0400 Diastolic blood pressure 73 mm[Hg] SCALE BALANCER-C Tea Ruiz SCALE BALANCER Work Phone: [facility] 05-21-2022 15:50-0400 Heart rate 75 /min SCALE BALANCER-C Tea Ruiz SCALE BALANCER Work Phone: [facility] 05-21-2022 15:50-0400 Respiratory rate 16 /min SCALE BALANCER-C Tea Ruiz SCALE BALANCER Work Phone: [facility] 05-21-2022 15:50-0400 Systolic blood pressure 152 mm[Hg] SCALE BALANCER-C Tea Ruiz SCALE BALANCER Work Phone: [facility] 05-21-2022 14:40-0400 Body height 137.16 cm SCALE BALANCER-C Tea Ruiz SCALE BALANCER Work Phone: [facility] 05-21-2022 14:40-0400 Body mass index (BMI) [Ratio] 23.6 kg/m2 SCALE BALANCER-C Tea Ruiz SCALE BALANCER Work Phone: [facility] 05-21-2022 14:40-0400 Body weight 44.45 kg SCALE BALANCER-C Tea Ruiz SCALE BALANCER Work Phone: [facility] 05-21-2022 14:40-0400 SaO2% (BldA) [Mass fraction] 100 % SCALE BALANCER-C Tea Ruiz SCALE BALANCER Work Phone: [facility] 05-20-2022 14:27-0400 Body temperature 97.2 [degF] SCALE BALANCER-C Tea Ruiz SCALE BALANCER Work Phone: [facility] 05-20-2022 14:27-0400 Diastolic blood pressure 70 mm[Hg] SCALE BALANCER-C Tea Ruiz SCALE BALANCER Work Phone: [facility] 05-20-2022 14:27-0400 Heart rate 79 /min SCALE BALANCER-C Tea Ruiz SCALE BALANCER Work Phone: [facility] 05-20-2022 14:27-0400 Respiratory rate 16 /min SCALE BALANCER-C Tea Ruiz SCALE BALANCER Work Phone: [facility] 05-20-2022 14:27-0400 SaO2% (BldA) [Mass fraction] 99 % SCALE BALANCER-C Tea Ruiz SCALE BALANCER Work Phone: [facility] 05-20-2022 14:27-0400 Systolic blood pressure 133 mm[Hg] SCALE BALANCER-C Tea Ruiz SCALE BALANCER Work Phone: [facility] 05-19-2022 14:32-0400 Body temperature 96.8 [degF] SCALE BALANCER-C Tea Ruiz SCALE BALANCER Work Phone: [facility] 05-19-2022 14:32-0400 Diastolic blood pressure 71 mm[Hg] SCALE BALANCER-C Tea Ruiz SCALE BALANCER Work Phone: [facility] 05-19-2022 14:32-0400 Heart rate 82 /min SCALE BALANCER-C Tea Ruiz SCALE BALANCER Work Phone: [facility] 05-19-2022 14:32-0400 Respiratory rate 16 /min SCALE BALANCER-C Tea Ruiz SCALE BALANCER Work Phone: [facility] 05-19-2022 14:32-0400 SaO2% (BldA) [Mass fraction] 100 % SCALE BALANCER-C Tea Ruiz SCALE BALANCER Work Phone: [facility] 05-19-2022 14:32-0400 Systolic blood pressure 121 mm[Hg] SCALE BALANCER-C Tea Ruiz SCALE BALANCER Work Phone: [facility] 05-18-2022 14:47-0400 Body temperature 97.4 [degF] SCALE BALANCER-C Tea Ruiz SCALE BALANCER Work Phone: [facility] 05-18-2022 14:47-0400 Diastolic blood pressure 60 mm[Hg] SCALE BALANCER-C Tea Ruiz SCALE BALANCER Work Phone: [facility] 05-18-2022 14:47-0400 Heart rate 75 /min SCALE BALANCER-C Tea Ruiz SCALE BALANCER Work Phone: [facility] 05-18-2022 14:47-0400 Respiratory rate 16 /min SCALE BALANCER-C Tea Ruiz SCALE BALANCER Work Phone: [facility] 05-18-2022 14:47-0400 SaO2% (BldA) [Mass fraction] 95 % SCALE BALANCER-C Tea Ruiz SCALE BALANCER Work Phone: [facility] 05-18-2022 14:47-0400 Systolic blood pressure 135 mm[Hg] SCALE BALANCER-C Tea Ruiz SCALE BALANCER Work Phone: [facility] 05-18-2022 13:49-0400 Body height 137.16 cm SCALE BALANCER-C Tea Ruiz SCALE BALANCER Work Phone: [facility] 05-15-2022 12:34-0400 Diastolic blood pressure 67 mm[Hg] SCALE BALANCER-C Tea Ruiz SCALE BALANCER Work Phone: [facility] 05-15-2022 12:34-0400 Heart rate 77 /min SCALE BALANCER-C Tea Ruiz SCALE BALANCER Work Phone: [facility] 05-15-2022 12:34-0400 SaO2% (BldA) [Mass fraction] 100 % SCALE BALANCER-C Tea Ruiz SCALE BALANCER Work Phone: [facility] 05-15-2022 12:34-0400 Systolic blood pressure 140 mm[Hg] SCALE BALANCER-C Tea Ruiz SCALE BALANCER Work Phone: [facility] 05-15-2022 11:38-0400 Body height 137.16 cm SCALE BALANCER-C Tea Ruiz SCALE BALANCER Work Phone: [facility] 05-15-2022 11:38-0400 Body mass index (BMI) [Ratio] 23.6 kg/m2 SCALE BALANCER-C Tea Ruiz SCALE BALANCER Work Phone: [facility] 05-15-2022 11:38-0400 Body temperature 96.7 [degF] SCALE BALANCER-C Tea Ruiz SCALE BALANCER Work Phone: [facility] 05-15-2022 11:38-0400 Body weight 44.45 kg SCALE BALANCER-C Tea Ruiz SCALE BALANCER Work Phone: [facility] 05-15-2022 11:38-0400 Respiratory rate 16 /min SCALE BALANCER-C Tea Ruiz SCALE BALANCER Work Phone: [facility] 05-14-2022 13:33-0400 Body temperature 97.8 [degF] SCALE BALANCER-C Tea Ruiz SCALE BALANCER Work Phone: 4(973)[phone] [place] [address] 05-14-2022 13:33-0400 Diastolic blood pressure 77 mm[Hg] SCALE BALANCER-C Tea Ruiz SCALE BALANCER Work Phone: [facility] 05-14-2022 13:33-0400 Heart rate 78 /min SCALE BALANCER-C Tea Ruiz SCALE BALANCER Work Phone: [facility] 05-14-2022 13:33-0400 Respiratory rate 14 /min SCALE BALANCER-C Tea Ruiz SCALE BALANCER Work Phone: [facility] 05-14-2022 13:33-0400 SaO2% (BldA) [Mass fraction] 98 % SCALE BALANCER-C Tea Ruiz SCALE BALANCER Work Phone: [facility] 05-14-2022 13:33-0400 Systolic blood pressure 159 mm[Hg] SCALE BALANCER-C Tea Ruiz SCALE BALANCER Work Phone: [facility] 05-14-2022 12:57-0400 Body height 137.16 cm SCALE BALANCER-C Tea Ruiz SCALE BALANCER Work Phone: [facility] 05-14-2022 12:57-0400 Body mass index (BMI) [Ratio] 23.6 kg/m2 SCALE BALANCER-C Tea Ruiz SCALE BALANCER Work Phone: [facility] 05-14-2022 12:57-0400 Body temperature 97.5 [degF] SCALE BALANCER-C Tea Ruiz SCALE BALANCER Work Phone: 7(491)[phone] [place] [address] 05-14-2022 12:57-0400 Body weight 44.45 kg SCALE BALANCER-C Tea Ruiz SCALE BALANCER Work Phone: 7(966)580-560532 [place] [address] 05-14-2022 12:57-0400 Diastolic blood pressure 81 mm[Hg] SCALE BALANCER-C Tea Ruiz SCALE BALANCER Work Phone: [facility] 05-14-2022 12:57-0400 Heart rate 96 /min SCALE BALANCER-C Tea Ruiz SCALE BALANCER Work Phone: 9(413)[phone] [place] [address] 05-14-2022 12:57-0400 Respiratory rate 15 /min SCALE BALANCER-C Tea Ruiz SCALE BALANCER Work Phone: 0(594)[phone] [place] [address] 05-14-2022 12:57-0400 SaO2% (BldA) [Mass fraction] 98 % SCALE BALANCER-C Tea Ruiz SCALE BALANCER Work Phone: [facility] 05-14-2022 12:57-0400 Systolic blood pressure 147 mm[Hg] SCALE BALANCER-C Tea Ruiz SCALE BALANCER Work Phone: [facility] 05-14-2022 10:19-0400 Body mass index (BMI) [Ratio] 23.6 kg/m2 SCALE BALANCER-C Tea Ruiz SCALE BALANCER Work Phone: [facility] 05-14-2022 10:19-0400 Body temperature 96.7 [degF] SCALE BALANCER-C Tea Ruiz SCALE BALANCER Work Phone: [facility] 05-14-2022 10:19-0400 Body weight 44.45 kg SCALE BALANCER-C Tea Ruiz SCALE BALANCER Work Phone: [facility] 05-14-2022 10:19-0400 Diastolic blood pressure 108 mm[Hg] SCALE BALANCER-C Tea Ruiz SCALE BALANCER Work Phone: [facility] 05-14-2022 10:19-0400 Heart rate 113 /min SCALE BALANCER-C Tea Ruiz SCALE BALANCER Work Phone: [facility] 05-14-2022 10:19-0400 Respiratory rate 18 /min SCALE BALANCER-C Tea Ruiz SCALE BALANCER Work Phone: [facility] 05-14-2022 10:19-0400 SaO2% (BldA) [Mass fraction] 98 % SCALE BALANCER-C Tea Luongs SCALE BALANCER Work Phone: [facility] 05-14-2022 10:19-0400 Systolic blood pressure 124 mm[Hg] SCALE BALANCER-C Tea Ruiz SCALE BALANCER Work Phone: [facility] 05-13-2022 21:54-0400 Body height 137.[address] DAYTON BRIONES MD [facility] 05-13-2022 21:54-0400 Body temperature 98.24 [degF] DR DAYTON BRIONES MD [facility] 05-13-2022 21:54-0400 Body weight 44.[address] DAYTON BRIONES MD [facility] 05-13-2022 21:54-0400 Diastolic Blood Pressure Non-Invasive [address] DAYTON BRIONES MD [facility] 05-13-2022 21:54-0400 Heart rate 75 /min DR DAYTON BRIONES MD [facility] 05-13-2022 21:54-0400 Respiratory rate 20 /min DR DAYTON BRIONES MD [facility] 05-13-2022 21:54-0400 Systolic Blood Pressure Non-Invasive [address] DAYTON BRIONES MD [facility] 05-13-2022 13:42-0400 Body temperature 97.1 [degF] SCALE BALANCER-C Tea Ruiz SCALE BALANCER Work Phone: [facility] 05-13-2022 13:42-0400 Diastolic blood pressure 78 mm[Hg] SCALE BALANCER-C Tea Ruiz SCALE BALANCER Work Phone: [facility] 05-13-2022 13:42-0400 Heart rate 81 /min SCALE BALANCER-C Tea Ruiz SCALE BALANCER Work Phone: [facility] 05-13-2022 13:42-0400 Respiratory rate 16 /min SCALE BALANCER-C Tea Ruiz SCALE BALANCER Work Phone: [facility] 05-13-2022 13:42-0400 SaO2% (BldA) [Mass fraction] 100 % SCALE BALANCER-C Tea Ruiz SCALE BALANCER Work Phone: [facility] 05-13-2022 13:42-0400 Systolic blood pressure 144 mm[Hg] SCALE BALANCER-C Tea Ruiz SCALE BALANCER Work Phone: [facility] 05-12-2022 12:11-0400 Body temperature 98.1 [degF] SCALE BALANCER-C Tea Ruiz SCALE BALANCER Work Phone: [facility] 05-12-2022 12:11-0400 Diastolic blood pressure 72 mm[Hg] SCALE BALANCER-C Tea Ruiz SCALE BALANCER Work Phone: [facility] 05-12-2022 12:11-0400 Heart rate 81 /min SCALE BALANCER-C Tea Ruiz SCALE BALANCER Work Phone: [facility] 05-12-2022 12:11-0400 Respiratory rate 16 /min SCALE BALANCER-C Tea Ruiz SCALE BALANCER Work Phone: [facility] 05-12-2022 12:11-0400 SaO2% (BldA) [Mass fraction] 100 % SCALE BALANCER-C Tea Ruiz SCALE BALANCER Work Phone: [facility] 05-12-2022 12:11-0400 Systolic blood pressure 160 mm[Hg] SCALE BALANCER-C Tea Ruiz SCALE BALANCER Work Phone: [facility] 05-12-2022 10:56-0400 Body mass index (BMI) [Ratio] 23.3 kg/m2 SCALE BALANCER-C Tea Ruiz SCALE BALANCER Work Phone: [facility] 05-12-2022 10:56-0400 Body weight 43.99 kg SCALE BALANCER-C Tea Ruiz SCALE BALANCER Work Phone: [facility] 05-11-2022 11:51-0400 Body temperature 97.1 [degF] SCALE BALANCER-C Tea Ruiz SCALE BALANCER Work Phone: [facility] 05-11-2022 11:51-0400 Diastolic blood pressure 77 mm[Hg] SCALE BALANCER-C Tea Ruiz SCALE BALANCER Work Phone: 7(596)[phone] [place] [address] 05-11-2022 11:51-0400 Heart rate 79 /min SCALE BALANCER-C Tea Ruiz SCALE BALANCER Work Phone: [facility] 05-11-2022 11:51-0400 Respiratory rate 14 /min SCALE BALANCER-C Tea Ruiz SCALE BALANCER Work Phone: [facility] 05-11-2022 11:51-0400 SaO2% (BldA) [Mass fraction] 99 % SCALE BALANCER-C Tea Ruiz SCALE BALANCER Work Phone: [facility] 05-11-2022 11:51-0400 Systolic blood pressure 144 mm[Hg] SCALE BALANCER-C Tea Ruiz SCALE BALANCER Work Phone: [facility] 05-11-2022 10:54-0400 Body mass index (BMI) [Ratio] 23.3 kg/m2 SCALE BALANCER-C Tea Ruiz SCALE BALANCER Work Phone: [facility] 05-11-2022 10:54-0400 Body weight 43.99 kg SCALE BALANCER-C Tea Ruiz SCALE BALANCER Work Phone: [facility] 05-10-2022 10:39-0400 Body temperature 98.1 [degF] SCALE BALANCER-C Tea Ruiz SCALE BALANCER Work Phone: [facility] 05-10-2022 10:39-0400 Diastolic blood pressure 81 mm[Hg] SCALE BALANCER-C Tea Ruiz SCALE BALANCER Work Phone: [facility] 05-10-2022 10:39-0400 Heart rate 80 /min SCALE BALANCER-C Tea Ruiz SCALE BALANCER Work Phone: [facility] 05-10-2022 10:39-0400 Respiratory rate 18 /min SCALE BALANCER-C Tea Ruiz SCALE BALANCER Work Phone: [facility] 05-10-2022 10:39-0400 SaO2% (BldA) [Mass fraction] 100 % SCALE BALANCER-C Tea Ruiz SCALE BALANCER Work Phone: [facility] 05-10-2022 10:39-0400 Systolic blood pressure 159 mm[Hg] SCALE BALANCER-C Tea Ruiz SCALE BALANCER Work Phone: [phone](459)[phone] [place] [address] 05-09-2022 11:09-0400 Body temperature 98.3 [degF] SCALE BALANCER-C Tea Ruiz SCALE BALANCER Work Phone: 6(223)[phone] [place] [address] 05-09-2022 11:09-0400 Diastolic blood pressure 83 mm[Hg] SCALE BALANCER-C Tea Ruiz SCALE BALANCER Work Phone: [facility] 05-09-2022 11:09-0400 Heart rate 77 /min SCALE BALANCER-C Tea Ruiz SCALE BALANCER Work Phone: [facility] 05-09-2022 11:09-0400 Respiratory rate 18 /min SCALE BALANCER-C Tea Ruiz SCALE BALANCER Work Phone: [facility] 05-09-2022 11:09-0400 SaO2% (BldA) [Mass fraction] 98 % SCALE BALANCER-C Tea Ruiz SCALE BALANCER Work Phone: [facility] 05-09-2022 11:09-0400 Systolic blood pressure 145 mm[Hg] SCALE BALANCER-C Tea Ruiz SCALE BALANCER Work Phone: [facility] 05-08-2022 10:00-0400 Body height 137.16 cm SCALE BALANCER-C Tea Ruiz SCALE BALANCER Work Phone: [facility] 05-08-2022 10:00-0400 Body mass index (BMI) [Ratio] 23.3 kg/m2 SCALE BALANCER-C Tea Ruiz SCALE BALANCER Work Phone: [facility] 05-08-2022 10:00-0400 Body weight 43.99 kg SCALE BALANCER-C Tea Ruiz SCALE BALANCER Work Phone: [facility] 05-08-2022 10:00-0400 Diastolic blood pressure 73 mm[Hg] SCALE BALANCER-C Tea Ruiz SCALE BALANCER Work Phone: [facility] 05-08-2022 10:00-0400 Heart rate 94 /min SCALE BALANCER-C Tea Ruiz SCALE BALANCER Work Phone: [facility] 05-08-2022 10:00-0400 Respiratory rate 16 /min SCALE BALANCER-C Tea Ruiz SCALE BALANCER Work Phone: [facility] 05-08-2022 10:00-0400 SaO2% (BldA) [Mass fraction] 100 % SCALE BALANCER-C Tea Ruiz SCALE BALANCER Work Phone: [facility] 05-08-2022 10:00-0400 Systolic blood pressure 127 mm[Hg] SCALE BALANCER-C Tea Ruiz SCALE BALANCER Work Phone: [facility] 05-07-2022 08:51-0400 Heart rate 84 /min DR ALEXIS JAMES MD [facility] 05-07-2022 08:51-0400 Respiratory rate 20 /min DR ALEXIS JAMES MD [facility] 05-07-2022 07:39-0400 Diastolic Blood Pressure Non-Invasive [address] ALEXIS JAMES MD [facility] 05-07-2022 07:39-0400 Systolic Blood Pressure Non-Invasive [address] ALEXIS JAMES MD [facility] 05-07-2022 07:22-0400 Body temperature 98.06 [degF] DR ALEXIS JAMES MD [address] [place] [address] 05-07-2022 07:22-0400 Heart rate 84 /min DR ALEXIS JAMES MD [address] [place] [address] 05-07-2022 07:22-0400 Reason For Taking VItal Signs DR ALEXIS JAMES MD [address] [place] [address] 05-07-2022 07:22-0400 Respiratory rate 20 /min DR ALEXIS JAMES MD [address] [place] [address] 05-07-2022 00:59-0400 Body temperature 98.6 [degF] DR ALEXIS JAMES MD [address] [place] [address] 05-07-2022 00:59-0400 Diastolic Blood Pressure Non-Invasive [address] ALEXIS JAMES MD [address] [place] [address] 05-07-2022 00:59-0400 Heart rate 95 /min DR ALEXIS JAMES MD [address] [place] [address] 05-07-2022 00:59-0400 Respiratory rate 20 /min DR ALEXIS JAMES MD [address] [place] [address] 05-07-2022 00:59-0400 Systolic Blood Pressure Non-Invasive [address] ALEXIS JAMES MD [address] [place] [address] 05-06-2022 19:47-0400 Heart rate 90 /min DR ALEXIS JAMES MD [address] [place] [address] 05-06-2022 19:47-0400 Reason For Taking VItal Signs DR ALEXIS JAMES MD [address] [place] [address] 05-06-2022 16:42-0400 Body temperature 98.06 [degF] DR ALEXIS JAMES MD [address] [place] [address] 05-06-2022 16:42-0400 Diastolic Blood Pressure Non-Invasive [address] ALEXIS JAMES MD [address] [place] [address] 05-06-2022 16:42-0400 Heart rate 93 /min DR ALEXIS JAMES MD [address] [place] [address] 05-06-2022 16:42-0400 Reason For Taking VItal Signs DR ALEXIS JAMES MD [address] [place] [address] 05-06-2022 16:42-0400 Systolic Blood Pressure Non-Invasive [address] ALEXIS JAMES MD [address] [place] [address] 05-06-2022 16:10-0400 Heart rate 92 /min DR ALEXIS JAMES MD [address] [place] [address] 05-06-2022 16:00-0400 Heart rate 87 /min DR ALEXIS JAMES MD [address] [place] [address] 05-06-2022 06:34-0400 Heart rate 86 /min DR ALEXIS JAMES MD [address] [place] [address] 05-05-2022 20:53-0400 Heart rate 102 /min DR ALEXIS JAMES MD [address] [place] [address] 05-05-2022 14:42-[address] ALEXIS JAMES MD [address] [place] [address] 05-05-2022 11:15-04[address] Cuff Size DR ALEXIS JAMES MD [address] [place] [address] 05-05-2022 11:15-[address] ALEXIS JAMES MD [address] [place] [address] 05-05-2022 11:15-[address] ALEXIS JAMES MD [address] [place] [address] 05-05-2022 11:15-0400 Mean blood pressure 91 mm[Hg] DR ALEXIS JAMES MD [address] [place] [address] 05-04-2022 10:30-04[address] Blood [address] Cuff Size DR ALEXIS JAMES MD [address] [place] [address] 05-04-2022 10:30-[address] ALEXIS JAMES MD [facility] 05-04-2022 10:30-[address] ALEXIS JAMES MD [address] [place] [address] 05-04-2022 07:48-0400 Blood Pressure Cuff Size DR ALEXIS JAMES MD [address] [place] [address] 05-04-2022 07:48-[address] ALEXIS JAMES MD [address] [place] [address] 05-02-2022 03:41-0400 Body height 137.[address] ALEXIS JAMES MD [address] [place] [address] 05-02-2022 03:41-0400 Body weight 44.[address] ALEXIS JAMES MD [address] [place] [address] 05-02-2022 03:41-0400 Body weight 23.8 kg/m2 DR ALEXIS JAMES MD [address] [place] [address] 05-02-2022 02:12-0400 Body temperature 97.88 [degF] YOHANNES KAPPER REINFORCING METAL WORKER-DIGITAL MEDIA STRATEGIST [address] [place] [address] 05-02-2022 02:12-0400 Diastolic Blood Pressure Non-Invasive 86 1 YOHANNES KAPPER REINFORCING METAL WORKER-DIGITAL MEDIA STRATEGIST [address] [place] [address] 05-02-2022 02:12-0400 Heart rate 76 /min YOHANNES KAPPER REINFORCING METAL WORKER-DIGITAL MEDIA STRATEGIST [address] [place] [address] 05-02-2022 02:12-0400 Respiratory rate 18 /min YOHANNES KAPPER REINFORCING METAL WORKER-DIGITAL MEDIA STRATEGIST [address] [place] [address] 05-02-2022 02:12-0400 Systolic Blood Pressure Non-Invasive 141 1 YOHANNES KAPPER REINFORCING METAL WORKER-DIGITAL MEDIA STRATEGIST [address] [place] [address] 05-02-2022 01:00-0400 Body temperature 97.88 [degF] YOHANNES KAPPER REINFORCING METAL WORKER-DIGITAL MEDIA STRATEGIST [facility] 05-02-2022 01:00-0400 Diastolic Blood Pressure Non-Invasive 86 1 YOHANNES ABIDAER REINFORCING METAL WORKER-DIGITAL MEDIA STRATEGIST [facility] 05-02-2022 01:00-0400 Heart rate 76 /min YOHANNES KAPPER REINFORCING METAL WORKER-DIGITAL MEDIA STRATEGIST [facility] 05-02-2022 01:00-0400 Systolic Blood Pressure Non-Invasive 141 1 YOHANNES KAPPER REINFORCING METAL WORKER-DIGITAL MEDIA STRATEGIST [facility] 05-01-2022 19:54-0400 Body temperature 98.06 [degF] YOHANNES KAPPER REINFORCING METAL WORKER-DIGITAL MEDIA STRATEGIST [facility] 05-01-2022 19:54-0400 Diastolic Blood Pressure Non-Invasive 85 1 YOHANNES ABIDAER REINFORCING METAL WORKER-DIGITAL MEDIA STRATEGIST [facility] 05-01-2022 19:54-0400 Heart rate 92 /min YOHANNES ABIDAER REINFORCING METAL WORKER-DIGITAL MEDIA STRATEGIST [facility] 05-01-2022 19:54-0400 Reason For Taking VItal Signs YOHANNES KAPPER REINFORCING METAL WORKER-DIGITAL MEDIA STRATEGIST [facility] 05-01-2022 19:54-0400 Respiratory rate 18 /min YOHANNES ABIDAER REINFORCING METAL WORKER-DIGITAL MEDIA STRATEGIST [facility] 05-01-2022 19:54-0400 Systolic Blood Pressure Non-Invasive 150 1 YOHANNES KAPPER REINFORCING METAL WORKER-DIGITAL MEDIA STRATEGIST [facility] 05-01-2022 15:15-0400 Heart rate 88 /min YOHANNES KAPPER REINFORCING METAL WORKER-DIGITAL MEDIA STRATEGIST [facility] 05-01-2022 11:55-0400 Heart rate 84 /min YOHANNES KAPPER REINFORCING METAL WORKER-DIGITAL MEDIA STRATEGIST [facility] 05-01-2022 03:15-0400 Heart rate 86 /min YOHANNES KAPPER REINFORCING METAL WORKER-DIGITAL MEDIA STRATEGIST [facility] 04-30-2022 03:36-0400 Body weight 46.6 kg YOHANNES KAPPER REINFORCING METAL WORKER-DIGITAL MEDIA STRATEGIST [facility] 04-29-2022 23:17-0400 Blood Pressure Location YOHANNES KAPPER REINFORCING METAL WORKER-DIGITAL MEDIA STRATEGIST [facility] 04-29-2022 23:17-0400 Blood Pressure Method YOHANNES KAPPER REINFORCING METAL WORKER-DIGITAL MEDIA STRATEGIST [facility] 04-29-2022 20:36-0400 Body height 137.2 cm YOHANNES KAPPER REINFORCING METAL WORKER-DIGITAL MEDIA STRATEGIST [facility] 04-29-2022 20:36-0400 Body weight 44.5 kg YOHANNES KAPPER REINFORCING METAL WORKER-DIGITAL MEDIA STRATEGIST [facility] 04-29-2022 20:36-0400 Body weight 23.64 kg/m2 YOHANNES KAPPER REINFORCING METAL WORKER-DIGITAL MEDIA STRATEGIST [facility] 04-29-2022 12:59-0400 Body weight 44 kg YOHANNES KAPPER REINFORCING METAL WORKER-DIGITAL MEDIA STRATEGIST [facility] 04-28-2022 18:35-0400 Body height 137.[address] ALLEN GREER MD [facility] 04-28-2022 18:35-0400 Body temperature 98.96 [degF] DR ALLEN GREER MD [facility] 04-28-2022 18:35-0400 Body weight [address] ALLEN GREER MD [facility] 03-14-2023 18:35-0400 Diastolic Blood Pressure Non-Invasive [address] ALLEN GREER MD [facility] 04-28-2022 18:35-0400 Heart rate 97 /min DR ALLEN GREER MD [facility] 04-28-2022 18:35-0400 Respiratory rate 24 /min DR ALLEN GREER MD [facility] 04-28-2022 18:35-0400 Systolic Blood Pressure Non-Invasive [address] ALLEN GREER MD [facility] 04-13-2022 14:45-0500 Body height 137.16 cm SCALE BALANCER-C Tea Ruiz SCALE BALANCER Work Phone: [facility] 04-13-2022 14:39-0500 Body mass index (BMI) [Ratio] 24.5 kg/m2 SCALE BALANCER-C Tea Ruiz SCALE BALANCER Work Phone: [facility] 04-13-2022 14:39-0500 Body temperature 98.3 [degF] SCALE BALANCER-C Tea Ruiz SCALE BALANCER Work Phone: [facility] 04-13-2022 14:39-0500 Body weight 46.03 kg SCALE BALANCER-C Tea Ruiz SCALE BALANCER Work Phone: [facility] 04-13-2022 14:39-0500 Diastolic blood pressure 101 mm[Hg] SCALE BALANCER-C Tea Ruiz SCALE BALANCER Work Phone: [facility] 04-13-2022 14:39-0500 Heart rate 99 /min SCALE BALANCER-C Tea Ruiz SCALE BALANCER Work Phone: [facility] 04-13-2022 14:39-0500 Respiratory rate 17 /min SCALE BALANCER-C Tea Ruiz SCALE BALANCER Work Phone: [facility] 04-13-2022 14:39-0500 SaO2% (BldA) [Mass fraction] 96 % SCALE BALANCER-C Tea Ruiz SCALE BALANCER Work Phone: [facility] 04-13-2022 14:39-0500 Systolic blood pressure 159 mm[Hg] SCALE BALANCER-C Tea Ruiz SCALE BALANCER Work Phone: [facility] 03-19-2022 15:29-0500 Body mass index (BMI) [Ratio] 24.2 kg/m2 SCALE BALANCER-C Tea Ruiz SCALE BALANCER Work Phone: 0(046)600-043432 [place] [address] 03-19-2022 15:29-0500 Body temperature 98.3 [degF] SCALE BALANCER-C Tea Ruiz SCALE BALANCER Work Phone: 4(902)732-337932 [place] [address] 03-19-2022 15:29-0500 Body weight 45.55 kg SCALE BALANCER-C Tea Ruiz SCALE BALANCER Work Phone: 6(122)083-745037 [place] [address] 03-19-2022 15:29-0500 Diastolic blood pressure 90 mm[Hg] SCALE BALANCER-C Tea Ruiz SCALE BALANCER Work Phone: 8(011)779-943532 [place] [address] 03-19-2022 15:29-0500 Heart rate 91 /min SCALE BALANCER-C Tea Ruiz SCALE BALANCER Work Phone: 1(034)277-211032 [place] [address] 03-19-2022 15:29-0500 Respiratory rate 17 /min SCALE BALANCER-C Tea Ruiz SCALE BALANCER Work Phone: 9(475)935-662532 [place] [address] 03-19-2022 15:29-0500 SaO2% (BldA) [Mass fraction] 97 % SCALE BALANCER-C Tea Ruiz SCALE BALANCER Work Phone: 6(855)481-445432 [place] [address] 03-19-2022 15:29-0500 Systolic blood pressure 151 mm[Hg] SCALE BALANCER-C Tea Ruiz SCALE BALANCER Work Phone: [facility] 11-21-2021 11:42-0400 Body height 137.16 cm SCALE BALANCER-C Tea Ruiz SCALE BALANCER Work Phone: 1(429)321-003632 [place] [address] Work Phone: 11-21-2021 11:42-0400 Body mass index (BMI) [Ratio] 26 kg/m2 SCALE BALANCER-C Tea Ruiz SCALE BALANCER Work Phone: [facility] Work Phone: 11-21-2021 11:42-0400 Body temperature 97.4 [degF] SCALE BALANCER-C Tea Ruiz SCALE BALANCER Work Phone: [facility] Work Phone: 11-21-2021 11:42-0400 Body weight 48.98 kg SCALE BALANCER-C Tea Ruiz SCALE BALANCER Work Phone: [facility] Work Phone: 11-21-2021 11:42-0400 Diastolic blood pressure 110 mm[Hg] SCALE BALANCER-C Tea Ruiz SCALE BALANCER Work Phone: [facility] Work Phone: 11-21-2021 11:42-0400 Heart rate 102 /min SCALE BALANCER-C Tea Ruiz SCALE BALANCER Work Phone: [facility] Work Phone: 11-21-2021 11:42-0400 Respiratory rate 16 /min SCALE BALANCER-C Tea Ruiz SCALE BALANCER Work Phone: [facility] Work Phone: 11-21-2021 11:42-0400 SaO2% (BldA) [Mass fraction] 100 % SCALE BALANCER-C Tea Ruiz SCALE BALANCER Work Phone: [facility] Work Phone: 11-21-2021 11:42-0400 Systolic blood pressure 152 mm[Hg] SCALE BALANCER-C Tea Ruiz SCALE BALANCER Work Phone: [facility] Work Phone: 11-21-2021 08:53-0400 Body weight 46.27 kg Tea Ruiz REINFORCING METAL WORKER.PROFESSIONAL EMPLOYER CONSULTANT Work Phone: [facility] 11-21-2021 08:53-0400 Diastolic blood pressure 100 mm[Hg] Tea Ruiz REINFORCING METAL WORKER.PROFESSIONAL EMPLOYER CONSULTANT Work Phone: [facility] 11-21-2021 08:53-0400 Heart rate 107 /min Tea Ruiz REINFORCING METAL WORKER.PROFESSIONAL EMPLOYER CONSULTANT Work Phone: [facility] 11-21-2021 08:53-0400 SaO2% (BldA) [Mass fraction] 99 % Tea Ruiz REINFORCING METAL WORKER.PROFESSIONAL EMPLOYER CONSULTANT Work Phone: [facility] 11-21-2021 08:53-0400 Systolic blood pressure 160 mm[Hg] Tea Ruiz REINFORCING METAL WORKER.PROFESSIONAL EMPLOYER CONSULTANT Work Phone: [facility] 11-06-2021 09:23-0400 Heart rate 107 /min Marcellus Rosado MD Work Phone: [facility] 11-06-2021 09:23-0400 Respiratory rate 16 /min Marcellus Rosado MD Work Phone: [facility] 11-06-2021 09:23-0400 SaO2% (BldA) [Mass fraction] 98 % Marcellus Rosado MD Work Phone: [facility] 10-27-2021 17:33-0400 Body temperature 98.49 [degF] Ginny Praisler-Wood REINFORCING METAL WORKER.DIGITAL MEDIA STRATEGIST Work Phone: [facility] 10-27-2021 17:33-0400 Body weight 47.45 kg Ginny Praisler-Wood REINFORCING METAL WORKER.DIGITAL MEDIA STRATEGIST Work Phone: [facility] 10-27-2021 17:33-0400 Diastolic blood pressure 96 mm[Hg] Ginny Praisler-Wood REINFORCING METAL WORKER.DIGITAL MEDIA STRATEGIST Work Phone: [facility] 10-27-2021 17:33-0400 Heart rate 92 /min Ginny Praisler-Wood REINFORCING METAL WORKER.DIGITAL MEDIA STRATEGIST Work Phone: [facility] 10-27-2021 17:33-0400 Respiratory rate 18 /min Ginny Praisler-Wood REINFORCING METAL WORKER.DIGITAL MEDIA STRATEGIST Work Phone: [facility] 10-27-2021 17:33-0400 SaO2% (BldA) [Mass fraction] 96 % Ginny Praisler-Wood REINFORCING METAL WORKER.DIGITAL MEDIA STRATEGIST Work Phone: [facility] 10-27-2021 17:33-0400 Systolic blood pressure 150 mm[Hg] Ginny Praisler-Wood REINFORCING METAL WORKER.DIGITAL MEDIA STRATEGIST Work Phone: [facility] 10-15-2021 14:50-0400 Body mass index (BMI) [Ratio] 26 kg/m2 SCALE BALANCER-C Tea Luongs SCALE BALANCER Work Phone: [facility] Work Phone: 10-15-2021 14:50-0400 Body weight 48.98 kg SCALE BALANCER-C Tea Luongs SCALE BALANCER Work Phone: [facility] Work Phone: 09-16-2021 15:33-0400 Body temperature 98.1 [degF] Gregorio Soto REINFORCING METAL WORKER.DIGITAL MEDIA STRATEGIST Work Phone: [facility] 09-16-2021 15:33-0400 Body weight 49.35 kg Gregorio Soto REINFORCING METAL WORKER.DIGITAL MEDIA STRATEGIST Work Phone: [facility] 09-16-2021 15:33-0400 Diastolic blood pressure 78 mm[Hg] Gregorio Soto REINFORCING METAL WORKER.DIGITAL MEDIA STRATEGIST Work Phone: [facility] 09-16-2021 15:33-0400 Heart rate 100 /min Gregorio Soto REINFORCING METAL WORKER.DIGITAL MEDIA STRATEGIST Work Phone: [facility] 09-16-2021 15:33-0400 Respiratory rate 16 /min Gregorio Soto REINFORCING METAL WORKER.DIGITAL MEDIA STRATEGIST Work Phone: [facility] 09-16-2021 15:33-0400 SaO2% (BldA) [Mass fraction] 97 % Gregorio Soto REINFORCING METAL WORKER.DIGITAL MEDIA STRATEGIST Work Phone: [facility] 09-16-2021 15:33-0400 Systolic blood pressure 134 mm[Hg] Gregorio Soto REINFORCING METAL WORKER.DIGITAL MEDIA STRATEGIST Work Phone: [facility] 08-12-2021 14:50-0400 Body height 142.2 cm Tea Ruiz REINFORCING METAL WORKER.PROFESSIONAL EMPLOYER CONSULTANT Work Phone: [facility] 08-12-2021 14:50-0400 Body weight 48.53 kg Tea Ruiz REINFORCING METAL WORKER.PROFESSIONAL EMPLOYER CONSULTANT Work Phone: [facility] 08-12-2021 14:50-0400 Diastolic blood pressure 88 mm[Hg] Tea Luongs REINFORCING METAL WORKER.PROFESSIONAL EMPLOYER CONSULTANT Work Phone: [facility] 08-12-2021 14:50-0400 Heart rate 84 /min Tea Luongs REINFORCING METAL WORKER.PROFESSIONAL EMPLOYER CONSULTANT Work Phone: [facility] 08-12-2021 14:50-0400 Respiratory rate 16 /min Tea Luongs REINFORCING METAL WORKER.PROFESSIONAL EMPLOYER CONSULTANT Work Phone: [facility] 08-12-2021 14:50-0400 Systolic blood pressure 152 mm[Hg] Tea Luongs REINFORCING METAL WORKER.PROFESSIONAL EMPLOYER CONSULTANT Work Phone: [facility] 08-08-2021 08:57-0400 Body height 137.16 cm [facility] Work Phone: 08-08-2021 08:57-0400 Body mass index (BMI) [Ratio] 26.5 kg/m2 [facility] Work Phone: 08-08-2021 08:57-0400 Body temperature 97.9 [degF] [facility] Work Phone: 08-08-2021 08:57-0400 Body weight 49.89 kg [facility] Work Phone: 08-08-2021 08:57-0400 Diastolic blood pressure 107 mm[Hg] [facility] Work Phone: 08-08-2021 08:57-0400 Heart rate 100 /min [facility] Work Phone: 08-08-2021 08:57-0400 Respiratory rate 18 /min [facility] Work Phone: 08-08-2021 08:57-0400 SaO2% (BldA) [Mass fraction] 100 % [facility] Work Phone: 08-08-2021 08:57-0400 Systolic blood pressure 177 mm[Hg] [facility] Work Phone: Encounters Encounter Date Encounter Type Care Provider Facility Start: 10-13-2024 End: 10-13-2024 Emergency department patient visit MALVIN MANCUSO MD [facility] Start: 10-07-2024 End: 10-07-2024 ambulatory Jeri Bridenthal Work Phone: -[facility] Start: 10-07-2024 End: 10-07-[address] Shady Burks MD -[facility] Work Phone: Start: 10-06-2024 End: 10-07-2024 Refill Jeri Bridenthal REINFORC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 STRATEGIST Work Phone: [facility] Comment on above: Hypercholesterolemia Start: 10-05-2024 End: 10-06-2024 Refill Jeri Bridenthal REINFORC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 STRATEGIST Work Phone: [facility] [place] Comment on above: Chronic pain syndrom e Start: 10-03-2024 End: 10-04-2024 Refill Jeri Bridenthal REINFORC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 STRATEGIST Work Phone: [facility] [place] [place] Comment on above: Insomnia, unspecifie d type Start: 09-11-2024 End: 09-11-[address] Shady Burks MD -[facility] Work Phone: Start: 09-11-2024 End: 09-11-2024 ambulatory Jeri Bridenthal Work Phone: -[facility] Start: 09-07-2024 End: 09-07-2024 Refill Jeri Bridenthal REINFORC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 STRATEGIST Work Phone: [facility] [place] Comment on above: Chronic right-sided low back pain without sciatica Start: 09-06-2024 End: 09-07-2024 Refill Jeri Bridenthal REINFORC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 STRATEGIST Work Phone: [facility] Comment on above: Chronic pain syndrom e Start: 08-31-2024 End: 09-07-2024 Telephone encounter Jeri Bridenthal REINFORC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 STRATEGIST Work Phone: [facility] Comment on above: Referral Start: 08-30-2024 End: 08-30-2024 Office outpatient visit 25 minutes Jeri Bridenthal REINFORC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 STRATEGIST Work Phone: [facility] [place] Comment on above: Chronic right-sided low back [...] left ear Start: 08-30-2024 End: 08-30-2024 ambulatory JERI BRIDENTHAL [facility] Start: 08-10-2024 End: 08-10-2024 Refill Jeri Bridenthal REINFORC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 STRATEGIST Work Phone: [facility] [place] Comment on above: Chronic pain syndrom e Start: 08-02-2024 End: 08-02-2024 Refill Jeri Bridenthal REINFORC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 STRATEGIST Work Phone: [facility] [place] Comment on above: Primary hypertension Start: 08-01-2024 End: 08-02-2024 Refill Jeri Bridenthal REINFORC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 STRATEGIST Work Phone: [facility] Comment on above: Insomnia, unspecifie d type Start: 07-13-2024 End: 07-13-2024 Refill Jeri Bridenthal REINFORC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 STRATEGIST Work Phone: [facility] Comment on above: Chronic pain syndrom e Start: 06-12-2024 End: 06-13-2024 Refill Jeri Bridenthal REINFORC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 STRATEGIST Work Phone: [facility] Comment on above: Chronic pain syndrom e Start: 2024 End: 2024 Refill Jose D Slaughter MD Work Phone: [facility] Comment on above: Insomnia, unspecifie d type Start: 05-31-2024 End: 05-31-2024 Office outpatient visit 25 minutes Jeri Bridenthal REINFORC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 STRATEGIST Work Phone: [facility] Comment on above: Chronic pain syndrom e (Primary Dx); Screening for cervical cancer; Hidradenitis; Systemic sclerosis (HCC); Uncomplicated opioid dependence (HCC); Primary insomnia Start: 05-31-2024 End: 05-31-2024 ambulatory JERI BRIDENTHAL [facility] Start: 05-15-2024 End: 05-15-2024 Refill Jeri Bridenthal REINFORC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 STRATEGIST Work Phone: [facility] Comment on above: Gastroesophageal ref lux disease without esophagitis (Primary Dx); Chronic pain syndrome Start: 05-08-2024 End: 05-08-2024 Refill Jose D Slaughter MD Work Phone: [facility] Comment on above: Insomnia, unspecifie d type Start: 04-28-2024 End: 04-28-2024 Emergency department patient visit NATASHA BRIONES MD Facility:[facility] Start: 04-27-2024 End: 06-06-2024 ambulatory Jazzmine Boone RN [facility] Start: 04-27-2024 End: 06-06-2024 Patient encounter procedure Jazzmine Boone RN [facility] Start: 04-26-2024 End: 04-26-2024 Emergency department patient visit THANIA CLINTON DO Facility:[facility] Start: 04-14-2024 End: 04-14-2024 Refill Jeri Bridenthal REINFORC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 STRATEGIST [facility] Start: 04-10-2024 End: 04-11-2024 Refill Jeri Bridenthal REINFORC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 STRATEGIST Work Phone: [facility] Comment on above: Chronic pain syndrom e Start: 04-05-2024 End: 04-05-2024 Refill Jeri Bridenthal REINFORC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 STRATEGIST Work Phone: [facility] Comment on above: Insomnia, unspecifie d type Start: 04-04-2024 End: 04-04-2024 Refill Jeri Bridenthal REINFORC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 STRATEGIST Work Phone: [facility] Comment on above: Hypercholesterolemia Start: 03-31-2024 End: 03-31-2024 ambulatory NONE PHYSICIAN Facility:[facility] Start: 03-31-2024 End: 03-31-2024 Patient encounter procedure JERI BRIDENTHAL REINFORCING METAL WORKER/DIGITAL MEDIA STRATEGIST [facility] Start: 03-17-2024 End: 03-17-2024 Telephone encounter Lupis Puga RN [facility] [place] Comment on above: Colon Cancer Screeni ng Start: 03-14-2024 End: 03-14-2024 Assay of hemosiderin, quant Jeri Bridenthal REINFORC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 STRATEGIST Work Phone: [facility] Start: 03-14-2024 End: 03-14-2024 Patient encounter procedure Jeri Bridenthal REINFORC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 STRATEGIST Work Phone: [facility] Comment on above: Routine general medi [...] Primary insomnia Start: 03-14-2024 End: 03-14-2024 [facility] Start: 03-14-2024 End: 03-14-2024 Encounter for general adult medical examination without abnormal findings JERI LAGUERRECHI [facility] Start: 03-02-2024 End: 03-02-2024 Refill Jose D Slaughter MD Work Phone: [facility] Comment on above: Chronic midline thor acic back pain; Insomnia, unspecified type Start: 02-17-2024 End: 02-17-2024 Refill Jose D Slaughter MD Work Phone: [facility] Clinical Communication Comment on above: Chronic pain syndrom e Start: 02-07-2024 End: 02-07-2024 Refill Jerikalyan Trinidad REINFORC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 STRATEGIST Work Phone: [facility] Comment on above: Chronic midline thor acic back pain Start: 01-22-2024 End: 01-22-2024 [facility] Start: 01-11-2024 End: 01-11-2024 Office outpatient visit 25 minutes Jerikalyan Trinidad REINFORC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 STRATEGIST Work Phone: [facility] Comment on above: Chronic pain syndrom e (Primary Dx); Bulging lumbar disc; Yeast dermatitis; Chronic right-sided low back pain without sciatica; Mass on back Start: 01-11-2024 End: 01-11-[address] [facility] Start: 12-22-2023 End: 12-23-2023 Refill Jose D Slaughter MD Work Phone: [facility] Start: 12-14-2023 End: 12-14-2023 Telephone encounter Jeri Trinidad REINFORC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 STRATEGIST Work Phone: [facility] Comment on above: Care Coordination Start: 12-09-2023 End: 12-09-2023 Office outpatient visit 25 minutes Jeri Bridenthal REINFORC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 STRATEGIST Work Phone: [facility] Comment on above: Chronic pain syndrom e (Primary Dx); Arthritis; Influenza vaccine needed; Linear scleroderma; Primary hypertension Start: 12-09-2023 End: 12-09-2023 ambulatory JERI BRIDENTHAL [facility] Start: 12-07-2023 End: 12-07-2023 ambulatory Jeri Bridenthal Facility:[facility] Start: 11-30-2023 ambulatory Jeri Bridenthal Faci lity:[facility] Start: 11-25-2023 End: 11-27-2023 Telephone encounter Jeri Bridenthal REINFORC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 STRATEGIST Work Phone: [facility] Comment on above: Medication Problem Start: 11-24-2023 End: 11-24-2023 ambulatory Jeri Bridenthal Facility:[facility] Start: 11-03-2023 End: 11-03-2023 Office outpatient visit 25 minutes Jeri Bridenthal REINFORC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 STRATEGIST Work Phone: [facility] Comment on above: Chronic pain syndrom e (Primary Dx); Chronic midline thoracic back pain; Primary hypertension; Irritable bowel syndrome with both constipation and diarrhea; Linear scleroderma; Primary insomnia; Encounter for screening mammogram for malignant neoplasm of breast; Osteoporosis, unspecified osteoporosis type, unspecified pathological fracture presence Start: 11-03-2023 End: 11-03-[address] [facility] Start: 10-26-2023 End: 10-26-2023 Office outpatient new 45 minutes Estefanía Vera MD Work Phone: [facility] Pain Management - [facility] Comment on above: Spondylosis without myelopathy or radiculopathy, lumbar region (Primary Dx); Linear scleroderma; Uncomplicated opioid dependence (HCC) Start: 10-26-2023 End: 10-26-2023 ambulatory ESTEFANÍA VERA [facility] Start: 10-12-2023 End: 10-13-2023 Telephone encounter Jeri Bridenthal REINFORC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 STRATEGIST Work Phone: [facility] - [place] Comment on above: Orders (CT-Lung Scre en) Start: 10-06-2023 End: 10-06-2023 Office outpatient visit 15 minutes Jeri Bridenthal REINFORC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 STRATEGIST Work Phone: [facility] Comment on above: Chronic pain syndrom e (Primary Dx); Insomnia, unspecified type; Linear scleroderma; Primary hypertension; Osteoporosis, unspecified osteoporosis type, unspecified pathological fracture presence; Other osteoarthritis of spine, lumbar region; Hypercholesterolemia Start: 10-06-2023 End: 10-06-2023 Office outpatient visit 25 minutes Jeri Bridenthal REINFORC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 STRATEGIST Work Phone: [facility] Medicine Comment on above: Chronic pain syndrom e (Primary Dx); Insomnia, unspecified type; Linear scleroderma; Primary hypertension; Osteoporosis, unspecified osteoporosis type, unspecified pathological fracture presence; Other osteoarthritis of spine, lumbar region; Hypercholesterolemia Start: 09-21-2023 End: 09-21-2023 ambulatory Missy Draper RN [facility] Clinical Communication Start: 09-21-2023 End: 09-21-2023 Patient encounter procedure Missy Draper RN [facility] Clinic al Communication Start: 09-09-2023 End: 09-09-2023 Office outpatient visit 25 minutes Jeri Bridenthal REINFORC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 STRATEGIST Work Phone: [facility] Medicine Comment on above: Chronic pain syndrom e (Primary Dx); Insomnia, unspecified type; Linear scleroderma; Primary hypertension Start: 09-08-2023 End: 09-08-2023 Refill Jeri Bridenthal REINFORC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 STRATEGIST Work Phone: [facility] Comment on above: Hypercholesterolemia Start: 08-25-2023 End: 08-26-2023 Refill Jeri Bridenthal REINFORC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 STRATEGIST Work Phone: [facility] Medicine Comment on above: Chronic midline thor acic back pain Start: 08-20-2023 End: 08-23-2023 ambulatory Willard Medeiros RN [facility] Clinical Communication Start: 08-20-2023 End: 08-23-2023 Patient encounter procedure Willard Medeiros RN [facility] Clinic al Communication Comment on above: Insomnia, unspecifie d type Start: 08-12-2023 End: 08-12-2023 Office outpatient new 20 minutes [facility] Schedule [facility] Women[facility] Osteoporosis [place] Comment on above: Age-related osteopor osis without current pathological fracture (Primary Dx); Scleroderma (HCC); Vitamin D deficiency; Fatigue, unspecified type Start: 08-12-2023 End: 08-12-2023 Office outpatient visit 15 minutes Jeri Bridenthal REINFORC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 STRATEGIST Work Phone: [facility] Comment on above: Chronic pain syndrom e (Primary Dx); Linear scleroderma; Primary hypertension; Osteopetrosis; Osteoporosis, unspecified osteoporosis type, unspecified pathological fracture presence Start: 08-05-2023 End: 09-17-2023 ambulatory JERI BRIDENTHAL REINFORCING METAL WORKER/DIGITAL MEDIA STRATEGIST Facility:[facility] Start: 08-05-2023 End: 09-17-2023 Physical therapy management JERI BRIDENTHAL REINFORCING METAL WORKER/DIGITAL MEDIA STRATEGIST [facility] Start: 07-28-2023 End: 07-28-2023 Office outpatient visit 25 minutes Jeri Bridenthal REINFORC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 STRATEGIST Work Phone: [facility] Comment on above: Bulging lumbar disc (Primary Dx); Leg length discrepancy; Other osteoarthritis of spine, lumbar region; Primary hypertension; Chronic pain syndrome; Mass on back; Osteoporosis, unspecified osteoporosis type, unspecified pathological fracture presence; Primary insomnia Start: 07-26-2023 Refill Jeri Briden thal REINFORC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 STRATEGIST Work Phone: [facility] Start: 07-23-2023 ambulatory Rosemary Shoemaker RN [facility] Clinical Communication Start: 07-23-2023 Patient encounter procedure Rosemary juan RN [facility] Clinical Communication Start: 07-23-2023 Telephone encounter Katie Rider RN [facility] Clinical Communication Start: 07-13-2023 Refill Jeri Briden thal REINFORC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 STRATEGIST Work Phone: [facility] Medicine Comment on above: Chronic midline thor acic back pain Chronic pain syndrom e Start: 07-08-2023 End: 07-08-2023 Subsequent hospital visit by physician Jeri Trinidad REINFORC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 STRATEGIST Work Phone: [facility] MRI Comment on above: Mass on back; Systemic sclerosis (HCC) Start: 06-29-2023 End: 06-29-2023 Subsequent hospital visit by physician [facility] Exam Room [address] [facility] [address] Comment on above: No Show Start: 06-24-2023 End: 06-24-2023 Subsequent hospital visit by physician Jeri Trinidad REINFORC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 STRATEGIST Work Phone: [facility] MRI Comment on above: Canceled (Patient: Mirza michel Unwell) Start: 06-24-2023 Refill Jose D Slaughter MD Work Phone: [facility] Medicine Start: 06-22-2023 Refill Jeri lam REINFORC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 STRATEGIST Work Phone: [facility] Comment on above: Insomnia, unspecifie d type Start: 06-08-2023 Telephone encounter Jose D Cabrera MD Work Phone: [facility] Comment on above: rx for LUNG SCREENIN G Start: 06-01-2023 Orders Only Jeri lam REINFORC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 STRATEGIST Work Phone: [facility] Medicine Comment on above: Chronic pain syndrom e (Primary Dx); Chronic midline thoracic back pain; Systemic sclerosis (HCC); Spondylosis of lumbar spine; Linear scleroderma; Chronic pain of both upper extremities; Arthritis of left glenohumeral joint Start: 05-20-2023 End: 05-20-2023 Office outpatient visit 25 minutes Jeri Trinidad REINFORC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 STRATEGIST Work Phone: [facility] Comment on above: Mass on back (Primar y Dx); Chronic midline thoracic back pain; Systemic sclerosis (HCC); Chronic pain syndrome; Insomnia, unspecified type; Spondylosis of lumbar spine Start: 05-12-2023 Telephone encounter Estefanía quiros MD Work Phone: [facility] Comment on above: New Patient Start: 05-03-2023 Telephone encounter Jose D Cabrera MD Work Phone: [facility] Clinical Communication Comment on above: Appointment Request Start: 04-29-2023 End: 04-29-2023 Office outpatient visit 25 minutes Jeri Bridenthal REINFORC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 STRATEGIST Work Phone: [facility] Medicine Comment on above: Chronic pain syndrom e (Primary Dx); Acute right-sided low back pain without sciatica; Skin pimple; Chronic pain of both upper extremities Start: 04-13-2023 Refill Jeri lam REINFORC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 STRATEGIST Work Phone: [facility] Comment on above: Chronic midline thor acic back pain Start: 03-31-2023 End: 03-31-2023 Office outpatient visit 25 minutes Jeri Bridenthal REINFORC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 STRATEGIST Work Phone: [facility] Medicine Comment on above: Chronic midline thor acic back pain (Primary Dx); Chronic pain syndrome; Linear scleroderma; Insomnia, unspecified type Start: 03-08-2023 Telephone encounter Jeri zavala REINFORC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 STRATEGIST Work Phone: [facility] Comment on above: Results Start: 03-04-2023 Telephone encounter Jose D Cabrera MD Work Phone: [facility] Comment on above: Referral Start: 03-04-2023 End: 03-04-2023 Assay of hemosiderin, quant Jeri Abilioenthal REINFORC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 STRATEGIST Work Phone: [facility] Work Phone: Start: 03-04-2023 End: 03-04-2023 Patient encounter procedure Jeri Bridenthal REINFORC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 STRATEGIST Work Phone: [facility] Medicine Comment on above: Routine general medi kierra [...] patient visit Dr. Rayo Cantu Work Phone: [facility]gency Department Work Phone: Start: 02-05-2023 Telephone encounter Jeri zavala REINFORCING METAL WORKER - Pounce Work Phone: [facility] Comment on above: Results Start: 02-04-2023 Telephone encounter Historical Galina DASH Work Phone: [facility] Comment on above: Colon Cancer Screeni ng; Colonoscopy (Screening Program) Colon Cancer Screeni ng; Colonoscopy (Transitioned out of screening program/pt requests office visit) Start: 02-03-2023 End: 02-03-2023 Office outpatient visit 25 minutes Jeri Trinidad REINFORCING METAL WORKER - Pounce Work Phone: [facility] Comment on above: Chronic pain syndrom e (Primary Dx); Insomnia, unspecified type; Linear scleroderma; Chronic midline thoracic back pain; Primary hypertension; Colon cancer screening Start: 01-14-2023 Telephone encounter Estefanía quiros MD Work Phone: [facility] Comment on above: Appointment Request Start: 01-06-2023 End: 01-06-2023 Office outpatient visit 25 minutes Jeri Trinidad REINFORC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 STRATEGIST Work Phone: [facility] Comment on above: Chronic pain syndrom e (Primary Dx); Irritation of left eye; Primary hypertension Start: 01-06-2023 ambulatory Brooke Davis RN [facility] Clinical Communication Start: 01-06-2023 Patient encounter procedure Brooke Davis RN [facility] Clinical Communication Comment on above: Linear scleroderma; Chronic midline thoracic back pain Start: 01-05-2023 Refill Jose D Slaughter MD Work Phone: [facility] Clinical Communication Comment on above: Linear scleroderma; Chronic midline thoracic back pain Start: 01-04-2023 Refill Jose D Slaughter MD Work Phone: [facility] Start: 12-23-2022 End: 12-23-[address] Rayo Cantu Work Phone: [facility] Work Phone: Start: 12-21-2022 Refill Jose D Slaughter MD Work Phone: [facility] Comment on above: Insomnia, unspecifie d type Start: 11-26-2022 Telephone encounter Jeri zavala REINFORC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 STRATEGIST Work Phone: [facility] Comment on above: Other (Pain Shiraz.) Start: 11-24-2022 End: 11-24-2022 Office outpatient new 45 minutes Jeri Abilioenthal REINFORC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 STRATEGIST Work Phone: [facility] Comment on above: Insomnia, unspecifie d type (Primary Dx); Linear scleroderma; Chronic midline thoracic back pain; Chronic pain syndrome Start: 11-18-2022 End: 11-18-2022 ambulatory SABRINA TINEO Facility:[facility] Start: 11-18-2022 End: 11-18-2022 Patient encounter procedure Sabrina Tineo MD Work Phone: Pain Management Comment on above: Lumbar spondylosis ( Primary Dx); Low back pain, unspecified back pain laterality, unspecified chronicity, unspecified whether sciatica present; Thoracic spondylosis without myelopathy; Chronic, continuous use of opioids Start: 08-31-2022 End: 08-31-2022 ambulatory SCALE BALANCER-C Solis Shell SCALE BALANCER Work Phone: [facility] Work Phone: Start: 08-31-2022 End: 08-31-2022 Patient encounter procedure SCALE BALANCER-C Solis Shell SCALE BALANCER Work Phone: [facility]-Laboratory Work Phone: Start: 08-14-2022 End: 08-14-2022 Patient encounter procedure SCALE BALANCER-C [employer]is [employer] SCALE BALANCER Work Phone: [facility] Work Phone: Start: 08-05-2022 End: 08-05-2022 Patient encounter procedure WILLARD PERKINS REINFORCING METAL WORKER-DIGITAL MEDIA STRATEGIST [facility] Start: 07-03-2022 End: 10-23-2022 Physical therapy management RAYO CANTU DO [facility] Start: 06-29-2022 End: 06-29-2022 Patient encounter procedure SHRAVAN LUCAS MD [facility] Start: 06-24-2022 End: 06-24-2022 Patient encounter procedure SCALE BALANCER-C Solis [employer] SCALE BALANCER Work Phone: [facility] Work Phone: Start: 06-03-2022 End: 06-03-2022 Patient encounter procedure WILLARD PERKINS REINFORCING METAL WORKER-DIGITAL MEDIA STRATEGIST [facility] Start: 05-26-2022 End: 05-26-2022 ambulatory SCALE BALANCER-C Tea Ruiz SCALE BALANCER Work Phone: [facility] Work Phone: Start: 05-26-2022 End: 05-26-2022 Patient encounter procedure SCALE BALANCER-C Tea Ruiz SCALE BALANCER Work Phone: [facility]-Medical Out Start: 05-21-2022 End: 05-21-2022 ambulatory SCALE BALANCER-C Tea Ruiz SCALE BALANCER Work Phone: [facility] Work Phone: Start: 05-21-2022 End: 05-21-2022 Patient encounter procedure SCALE BALANCER-C Tea Ruiz SCALE BALANCER Work Phone: [facility]-Medical Out Start: 05-20-2022 End: 05-20-2022 ambulatory SCALE BALANCER-C Tea Ruiz SCALE BALANCER Work Phone: [facility] Work Phone: Start: 05-20-2022 End: 05-20-2022 Patient encounter procedure SCALE BALANCER-C Tea Ruiz SCALE BALANCER Work Phone: [facility]-Medical Out Start: 05-19-2022 End: 05-19-2022 ambulatory SCALE BALANCER-C Tea Ruiz SCALE BALANCER Work Phone: [facility] Work Phone: Start: 05-19-2022 End: 05-19-2022 Patient encounter procedure SCALE BALANCER-C Tea Ruiz SCALE BALANCER Work Phone: [facility]-Medical Out Start: 05-18-2022 End: 05-18-2022 ambulatory SCALE BALANCER-C Tea Ruiz SCALE BALANCER Work Phone: [facility] Work Phone: Start: 05-18-2022 End: 05-18-2022 Patient encounter procedure SCALE BALANCER-C Tea Ruiz SCALE BALANCER Work Phone: [facility]Medical Out Start: 05-17-2022 End: 05-17-2022 ambulatory SCALE BALANCER-C Tea Ruiz SCALE BALANCER Work Phone: [facility] Work Phone: Start: 05-17-2022 End: 05-17-2022 Patient encounter procedure SCALE BALANCER-C Tea Luongs SCALE BALANCER Work Phone: [facility] Out Start: 05-16-2022 End: 05-16-2022 ambulatory SCALE BALANCER-C Tea Luongs SCALE BALANCER Work Phone: [facility] Work Phone: Start: 05-16-2022 End: 05-16-2022 Patient encounter procedure SCALE BALANCER-C Tea Luongs SCALE BALANCER Work Phone: [facility] Out Start: 05-15-2022 End: 05-15-2022 ambulatory SCALE BALANCER-C Tea Luongs SCALE BALANCER Work Phone: [facility] Work Phone: Start: 05-15-2022 End: 05-15-2022 Patient encounter procedure SCALE BALANCER-C Tea Luongs SCALE BALANCER Work Phone: [facility] Out Start: 05-14-2022 End: 05-14-2022 ambulatory SCALE BALANCER-C Tea Luongs SCALE BALANCER Work Phone: [facility] Work Phone: Start: 05-14-2022 End: 05-14-2022 Patient encounter procedure SCALE BALANCER-C Tea Luongs SCALE BALANCER Work Phone: [facility]Medical Out Start: 05-14-2022 End: 05-14-2022 Emergency department patient visit SCALE BALANCER-C Tea Luongs SCALE BALANCER Work Phone: [facility]Emergency Department Start: 05-13-2022 End: 05-13-2022 Emergency department patient visit DR DAYTON BRIONES MD [facility] Start: 05-13-2022 End: 05-13-2022 ambulatory SCALE BALANCER-C Tea Ruiz SCALE BALANCER Work Phone: [facility] Work Phone: Start: 05-13-2022 End: 05-13-2022 Patient encounter procedure SCALE BALANCER-C Tea Ruiz SCALE BALANCER Work Phone: [facility] Start: 05-12-2022 End: 05-12-2022 ambulatory SCALE BALANCER-C Tea Ruiz SCALE BALANCER Work Phone: [facility] Work Phone: Start: 05-12-2022 End: 05-12-2022 Patient encounter procedure SCALE BALANCER-C Tea Ruiz SCALE BALANCER Work Phone: [facility] Start: 05-11-2022 End: 05-11-2022 ambulatory SCALE BALANCER-C Tea Ruiz SCALE BALANCER Work Phone: [facility] Work Phone: Start: 05-11-2022 End: 05-11-2022 Patient encounter procedure SCALE BALANCER-C Tea Ruiz SCALE BALANCER Work Phone: [facility] Start: 05-10-2022 End: 05-10-2022 ambulatory SCALE BALANCER-C Tea Ruiz SCALE BALANCER Work Phone: [facility] Work Phone: Start: 05-10-2022 End: 05-10-2022 Patient encounter procedure SCALE BALANCER-C Tea Ruiz SCALE BALANCER Work Phone: [facility] Start: 05-09-2022 End: 05-09-2022 ambulatory SCALE BALANCER-C Tea Ruiz SCALE BALANCER Work Phone: [facility] Work Phone: Start: 05-09-2022 End: 05-09-2022 Patient encounter procedure SCALE BALANCER-C Tea Ruiz SCALE BALANCER Work Phone: [facility] Start: 05-08-2022 End: 05-08-2022 ambulatory SCALE BALANCER-C Tea Ruiz SCALE BALANCER Work Phone: [facility] Work Phone: Start: 05-08-2022 End: 05-08-2022 Patient encounter procedure SCALE BALANCER-C Tea Ruiz SCALE BALANCER Work Phone: [facility] Out Start: 05-02-2022 End: 05-07-2022 Evaluation and management of inpatient DR ALEXIS JAMES MD [facility] Start: 04-29-2022 End: 05-02-2022 Evaluation and management of inpatient YOHANNES Champ BOWIE REINFORCING METAL WORKER-DIGITAL MEDIA STRATEGIST [facility] Start: 04-28-2022 End: 04-28-2022 Emergency department patient visit DR ALLEN GREER MD [facility] Start: 04-27-2022 End: 04-27-2022 Patient encounter procedure SHRAVAN LUCAS MD [facility] Start: 04-20-2022 End: 04-20-2022 Patient encounter procedure SCALE BALANCER-C Tea Ruiz SCALE BALANCER Work Phone: [facility] Start: 04-13-2022 End: 04-13-2022 Patient encounter procedure SCALE BALANCER-C Tea Riuz SCALE BALANCER Work Phone: [facility] Start: 04-08-2022 End: 04-08-2022 ambulatory SCALE BALANCER-C Tea Luongs SCALE BALANCER Work Phone: [facility] Work Phone: Start: 04-08-2022 End: 04-08-2022 Patient encounter procedure SCALE BALANCER-C Tea Ruiz SCALE BALANCER Work Phone: [facility] Start: 03-19-2022 End: 03-19-2022 Patient encounter procedure SCALE BALANCER-C Tea Ruiz SCALE BALANCER Work Phone: [facility] Start: 02-10-2022 Non-patient / Non-visit SCALE BALANCER-C Alexandre Ruiz SCALE BALANCER Work Phone: [facility] Start: 01-30-2022 End: 01-30-2022 Patient encounter procedure SCALE BALANCER-Janeen Ruiz SCALE BALANCER Work Phone: [facility] Start: 01-29-2022 End: 01-29-2022 Patient encounter procedure SOLIS SHELL REINFORCING METAL WORKER-DIGITAL MEDIA STRATEGIST [facility] Start: 01-21-2022 End: 01-21-2022 Patient encounter procedure WILLARD PERKINS REINFORCING METAL WORKER-DIGITAL MEDIA STRATEGIST [facility] Start: 01-01-2022 End: 01-01-2022 Patient encounter procedure SOLIS RICHI REINFORCING METAL WORKER-DIGITAL MEDIA STRATEGIST [facility] Start: 12-17-2021 End: 12-17-2021 Patient encounter procedure WILLARD PERKINS REINFORCING METAL WORKER-DIGITAL MEDIA STRATEGIST [facility] Start: 11-21-2021 Telephone encounter Tea dixon REINFORCING METAL WORKER.PROFESSIONAL EMPLOYER CONSULTANT Work Phone: [facility] [place] Comment on above: FYI-No Action Needed Start: 11-21-2021 End: 11-21-2021 Emergency department patient visit SCALE BALANCER-Janeen Ruiz SCALE BALANCER Work Phone: [facility]-Emergency Department Start: 11-21-2021 End: 11-21-2021 Patient encounter procedure Tea Ruiz REINFORCING METAL WORKER.PROFESSIONAL EMPLOYER CONSULTANT Work Phone: [facility] [place] Comment on above: Chronic pain syndrom e (Primary Dx); Personal history of scleroderma; Acquired arm deformity, left; Acquired deformity of left lower leg Start: 11-13-2021 End: 11-13-2021 Patient encounter procedure LORETTA Ruiz NP Work Phone: [facility] Start: 11-06-2021 End: 11-06-2021 ambulatory MARCELLUS ROSADO Facility:[facility] Start: 11-06-2021 End: 11-06-2021 Patient encounter procedure Marcellus Rosado MD Work Phone: [facility] Comment on above: Lumbar spondylosis ( Primary Dx); Thoracic spondylosis without myelopathy; jail (current) use of opiate analgesic Start: 10-30-2021 End: 10-30-2021 Patient encounter procedure LORETTA Ruiz SCALE BALANCER Work Phone: [facility] Start: 10-30-2021 End: 10-30-2021 Patient encounter procedure Andrew Jenkins Work Phone: Podiatry Comment on above: Equinus contracture of ankle (Primary Dx); Pes cavus; Callus of foot; Acquired deformity of left lower leg; Chronic pain syndrome; Personal history of scleroderma Start: 10-28-2021 Telephone encounter Grace feng PA-C Work Phone: [facility] Comment on above: Results Start: 10-27-2021 End: 10-27-2021 Patient encounter procedure Ginny Costa APRN.DIGITAL MEDIA STRATEGIST Work Phone: [facility] Comment on above: Right calf pain (Rachele hailey Dx); Cellulitis of right lower leg; Itching; Elevated blood pressure reading without diagnosis of hypertension Start: 10-15-2021 End: 10-15-2021 Patient encounter procedure LORETTA Ruiz SCALE BALANCER Work Phone: [facility] Start: 10-06-2021 Refill Tea Ruiz APRN.PROFESSIONAL EMPLOYER CONSULTANT Work Phone: [facility] [place] Comment on above: Refill Request Start: 10-02-2021 End: 10-02-2021 ambulatory TORIBIO ERNANDEZ Facility:[facility] Start: 09-20-2021 Refill Toribio cho MD Work Phone: Internal Medicine [place] Comment on above: Refill Request Refill Request (open ed in error ) Start: 09-16-2021 End: 09-16-2021 Patient encounter procedure Gregorio Soto REINFORCING METAL WORKER.DIGITAL MEDIA STRATEGIST Work Phone: [facility] Comment on above: Ear infection (Prima ry Dx) Start: 08-12-2021 End: 08-12-2021 Patient encounter procedure Tea Ruiz REINFORCING METAL WORKER.PROFESSIONAL EMPLOYER CONSULTANT Work Phone: Internal Medicine [place] Comment on above: Chronic pain syndrom e [...] Toribio abbasi MD Work Phone: Family Medicine [place] Comment on above: Appointment Start: 08-08-2021 End: 08-08-2021 Emergency department patient visit [facility]Emergency Department Start: 08-07-2021 Telephone encounter Tea dixon REINFORCING METAL WORKER.PROFESSIONAL EMPLOYER CONSULTANT Work Phone: [address] [place] [address] Comment on above: Refill Request Procedures Date Procedure Procedure Detail Performing Clinician Start: 10-07-2024 MRI of joint of lowe r extremity Jeri Trinidad Work Phone: Start: 05-31-2024 Drug tst prsmv read instrmnt asstd dir opt obs Jeri Trinidad REINFORC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 STRATEGIST Work Phone: Start: 05-31-2024 Microscopic observat ion [Identifier] in Cervix by Cyto stain Jeri Trinidad REINFORC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 STRATEGIST Work Phone: Start: 03-31-2024 Lipid 1996 panel - S epifanio or Plasma Jose D Slaughter MD Work Phone: Start: 03-04-2023 Comprehensive metabo lic panel Jeri Laguerreenthal REINFORC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 STRATEGIST Work Phone: Start: 03-04-2023 Lipid panel Jeri Dorene identhal REINFORC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 STRATEGIST Work Phone: Start: 03-04-2023 Lipid 1996 panel - S epifanio or Plasma Jose D Slaughter MD Work Phone: Start: 03-04-2023 Mammography Jeri Br identhal REINFORC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 STRATEGIST Work Phone: Start: 02-15-2023 SARS-CoV-2 & FLU Ant igen (Rapid) Dr. Rayo Cantu Work Phone: Start: 02-03-2023 Drug tst prsmv read instrmnt asstd dir opt obs Jeri Laguerreenthal REINFORC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 STRATEGIST Work Phone: Start: 12-23-2022 Plain X-ray of shoulder Dr. Rayo Cantu Work Phone: Start: 06-24-2022 X-ray of lumbar spin e, two or three views SCALE BALANCER-C Solis Umair SCALE BALANCER Work Phone: Start: 04-20-2022 Injection of steroid into hip joint SHRAVAN LUCAS MD Comment on above: [facility] Start: 04-08-2022 MRI of joint of lowe r extremity SCALE BALANCER-C Tea Ruiz SCALE BALANCER Work Phone: Start: 01-30-2022 Plain X-ray of clavicle SCALE BALANCER-C Tea Ruiz SCALE BALANCER Work Phone: Start: 01-30-2022 Plain x-ray of pelvi s and lower extremity SCALE BALANCER-C Tea Ruiz SCALE BALANCER Work Phone: Start: 01-29-2022 Lipid 1996 panel - S epifanio or Plasma Jeri Laguerreenthal REINFORC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 STRATEGIST Work Phone: Start: 01-29-2022 Mammography Jeri Dorene identhal REINFORC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 STRATEGIST Work Phone: Start: 11-13-2021 Plain X-ray of clavicle SCALE BALANCER-C Tea Ruiz SCALE BALANCER Work Phone: Start: 11-12-2021 Injection into shoul rubi joint WILLARD PERKINS REINFORCING METAL WORKER-DIGITAL MEDIA STRATEGIST Comment on above: [facility], s teroid Start: 10-15-2021 Plain X-ray of shoulder SCALE BALANCER-C Tea Luongs SCALE BALANCER Work Phone: Start: 10-07-2021 Lipid 1996 panel - S epifanio or Plasma Sabrina Tineo MD Work Phone: Start: 10-02-2021 Adult depression scr eening assessment Tea Ruiz REINFORCING METAL WORKER.PROFESSIONAL EMPLOYER CONSULTANT Work Phone: Start: 08-12-2021 Adult depression scr eening assessment Tea Ruiz REINFORCING METAL WORKER.PROFESSIONAL EMPLOYER CONSULTANT Work Phone: Start: 06-15-2020 Destructive procedure C AMITA PERKINS REINFORCING METAL WORKER-DIGITAL MEDIA STRATEGIST Start: 02-16-2016 Medial epicondylitis of elbow joint (disorder) WILLARD PERKINS REINFORCING METAL WORKER-DIGITAL MEDIA STRATEGIST Comment on above: right arm Start: 02-15-2015 Carpal tunnel syndro me (disorder) WILLARD PERKINS REINFORCING METAL WORKER-DIGITAL MEDIA STRATEGIST Comment on above: right arm Start: 02-15-2013 Blind left eye (disorder) WILLARD PERKINS REINFORCING METAL WORKER-DIGITAL MEDIA STRATEGIST Comment on above: blind left eye stitc hed closed Start: 02-16-1988 Transplanted skin (b chico structure) WILLARD PERKINS REINFORCING METAL WORKER-DIGITAL MEDIA STRATEGIST Comment on above: skin graft of left a rm from right leg Miscellaneous (quali fier value) WILLARD PERKINS REINFORCING METAL WORKER-DIGITAL MEDIA STRATEGIST Comment on above: places 2 kayla on each on right knee to prevent knee and leg from growing Plan of Treatment Date Care Activity Detail Author Start: 06-08-2047 RSV Immunization for Adults (1 - 1-dose 75+ series) RSV Immunization for Adults (1 - 1-dose 75+ series) [facility] Start: 2032 RSV Immunization aged 60 or older (1 - 1-dose 60+ series) RSV Immunization aged 60 or older (1 - 1-dose 60+ series) [facility] Start: 05-31-2029 Screening for malignant neoplasm of cervix [facility] Start: 03-31-2029 Lipid panel Lipid Panel [facility] Start: 03-04-2028 Lipid panel Lipid Panel [facility] Start: 06-01-2027 Screening for malignant neoplasm of cervix Pap Smear [facility] Start: 01-29-2027 Lipid panel Lipid Panel [facility] Start: 10-07-2026 Lipid 1996 panel - Serum or Plasma Lipid Screening [facility] Start: 10-07-2026 LIPID SCREEN LIPID SCREEN [facility] Start: 04-13-2025 Medicare Annual Wellness (AWV) Medicare Annual Wellness (AWV) [facility] Start: 03-15-2025 End: 03-15-2025 Patient encounter procedure 03/15/2025 3:00 PM EST Office Visit [facility] [address] [place] [address] Jose D Slaughter MD [address] [place] [address] [facility] Start: 11-30-2024 End: 11-30-2024 Patient encounter procedure 11/30/2024 3:40 PM EDT Office Visit [facility] [address] [facility] [place] [address] Jeri Trinidad, KATHERINE - DIGITAL MEDIA STRATEGIST [address] [place] [address] [facility] Start: 11-30-2024 Depression Monitoring Depression Monitoring [facility] Start: 10-16-2024 Influenza vaccination Influenza Vaccine (#1) [facility] Start: 10-07-2024 DIABETES SCREEN DIABETES SCREEN [facility] Start: 10-07-2024 Diabetes Screening Diabetes Screening [facility] Start: 08-30-2024 End: 08-30-2024 Patient encounter procedure 08/30/2024 3:20 PM EDT Office Visit [facility] [place] [address] [place] [address] [place] [address] BridJeri arango, REINFORC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 STRATEGIST [address] [place] [address] [place] [address] [facility] Start: 08-30-2024 End: 08-30-2025 DXA Skeletal system.axial Views for bone density DEXA bone density axial skeleton Imaging Routine Osteopetrosis Osteoporosis, unspecified osteoporosis type, unspecified pathological fracture presence Expected: 08/30/2024, Expires: 08/30/2025 [facility] Work Phone: Comment on above: Expected: 08/30/2024, Expires: Start: 05-31-2024 End: 05-31-2024 Patient encounter procedure 05/31/2024 3:00 PM EDT Office Visit [facility] [place] [address] [place] [address] [place] [address] BridadamalGiaJeri, REINFORCING METAL WORKER - DIGITAL MEDIA STRATEGIST [address] [place] [address] [place] [address] [facility] [place] Start: 05-02-2024 Depression Monitoring Depression Monitoring [facility] Start: 04-10-2024 End: 04-10-2024 Patient encounter procedure 04/10/2024 3:20 PM EST Office Visit [facility] [place] [address] [place] [address] [place] [address] BridenthalGiaJeri, REINFORCING METAL WORKER - DIGITAL MEDIA STRATEGIST [address] [place] [address] [place] [address] [facility] [place] Start: 04-03-2024 Medicare Advantage Annual Wellness Visit (AWV) Medicare Advantage Annual Wellness Visit (AWV) [facility] Start: 04-03-2024 Medicare Annual Wellness (AWV) Medicare Annual Wellness (AWV) [facility] Start: 03-14-2024 End: 03-14-2024 Patient encounter procedure 03/14/2024 2:40 PM EST [facility] [address] [facility] [place] [address] [place] [address] Jeri Trinidad, REINFORCING METAL WORKER - DIGITAL MEDIA STRATEGIST [address] [facility] [place] [address] [facility] Start: 03-14-2024 End: 03-14-2025 25-hydroxyvitamin D3 [Mass/volume] in Serum or Plasma Vitamin D Deficiency Screening (Vit D 25) Lab Routine Vitamin D deficiency Expected: 03/14/2024 (Approximate), Expires: 03/14/2025 [facility] Comment on above: Expected: 03/14/2024 (Approximate), Expi res: 03/14/2025 Start: 03-14-2024 End: 03-14-2025 CBC W Auto Differential panel - Blood CBC auto differential Lab Routine Screening for deficiency anemia Expected: 03/14/2024 (Approximate), Expires: 03/14/2025 [facility] Work Phone: Comment on above: Expected: 03/14/2024 (Approximate), Expi res: 03/14/2025 Start: 03-14-2024 End: 03-14-2025 Comprehensive metabolic 1998 panel - Serum or Plasma Comprehensive metabolic panel Lab Routine Primary hypertension Expected: 03/14/2024 (Approximate), Expires: 03/14/2025 [facility] Comment on above: Expected: 03/14/2024 (Approximate), Expi res: 03/14/2025 Start: 03-14-2024 End: 03-14-2025 Lipid 1996 panel - Serum or Plasma Lipid panel Lab Routine Primary hypertension Hypercholesterolemia Expected: 03/14/2024 (Approximate), Expires: 03/14/2025 [facility] Comment on above: Expected: 03/14/2024 (Approximate), Expi res: 03/14/2025 Start: 03-14-2024 End: 03-14-2025 Magnesium [Mass/volume] in Serum or Plasma Magnesium Lab Routine Osteopetrosis Expected: 03/14/2024 (Approximate), Expires: 03/14/2025 [facility] Comment on above: Expected: 03/14/2024 (Approximate), Expi res: 03/14/2025 Start: 03-14-2024 End: 03-14-2025 Parathyrin.intact [Mass/volume] in Serum or Plasma PTH, intact Lab Routine Osteopetrosis Expected: 03/14/2024 (Approximate), Expires: 03/14/2025 [facility] Comment on above: Expected: 03/14/2024 (Approximate), Expi res: 03/14/2025 Start: 03-14-2024 End: 03-14-2025 Phosphate [Moles/volume] in Serum or Plasma Phosphorus Lab Routine Osteopetrosis Expected: 03/14/2024 (Approximate), Expires: 03/14/2025 [facility] Comment on above: Expected: 03/14/2024 (Approximate), Expi res: 03/14/2025 Start: 03-14-2024 End: 03-14-2025 Thyrotropin [Units/volume] in Serum or Plasma TSH Lab Routine Primary hypertension Osteopetrosis Expected: 03/14/2024 (Approximate), Expires: 03/14/2025 [facility] Comment on above: Expected: 03/14/2024 (Approximate), Expi res: 03/14/2025 Start: 03-14-2024 End: 05-12-2025 US Breast - left limited Left breast US limited Imaging Routine Abnormal mammography Expected: 03/14/2024, Expires: 05/12/2025 [facility] Comment on above: Expected: 03/14/2024, Expires: Start: 03-04-2024 Screening for malignant neoplasm of breast Mammogram [facility] Start: 03-02-2024 End: 03-02-2024 Patient encounter procedure 03/02/2024 2:40 PM EST Office Visit [facility] [place] [address] [facility] [place] [address] [place] [address] Jeri Trinidad, REINFORCING METAL WORKER - DIGITAL MEDIA STRATEGIST [address] [facility] [place] [address] [facility] Start: 02-16-2024 Medicare Advantage Annual Wellness Visit Medicare Advantage Annual Wellness Visit [facility] Start: 02-04-2024 COVID-19 Vaccine (#1) COVID-19 Vaccine (#1) [facility] Comment on above: Postponed from 1972 (Patient Refus ed) Start: 02-04-2024 COVID-19 Vaccine ( season) COVID-19 Vaccine ( season) [facility] Comment on above: Postponed from 10/16/2022 (Patient Refus ed) Start: 02-04-2024 DTaP/Tdap/Td Vaccines (1 - Tdap) DTaP/Tdap/Td Vaccines (1 - Tdap) [facility] Comment on above: Postponed from 06/08/1991 (Patient Refus ed) Start: 02-04-2024 Hepatitis B Vaccines (1 of 3 - 19+ 3-dose series) Hepatitis B Vaccines (1 of 3 - 19+ 3-dose series) [facility] Comment on above: Postponed from 06/08/1991 (Patient Refus ed) Start: 02-04-2024 Hepatitis B Vaccines (1 of 3 - 3-dose series) Hepatitis B Vaccines (1 of 3 - 3-dose series) [facility] Comment on above: Postponed from 1972 (Patient Refus ed) Start: 02-04-2024 HIV screening HIV Screening [facility] Comment on above: Postponed from 1972 (Patient Refus ed) Start: 02-04-2024 Zoster Vaccines (1 of 2) Zoster Vaccines (1 of 2) [facility] Comment on above: Postponed from 2022 (Patient Refus ed) Start: 01-21-2024 Screening for osteoporosis Bone Density Scan [facility] Start: 01-11-2024 End: 01-11-2024 Patient encounter procedure 01/11/2024 3:20 PM EST [facility] [address] [facility] [place] [address] Jeri Trinidad, REINFORCING METAL WORKER - DIGITAL MEDIA STRATEGIST [address] [facility] [place] [address] [facility] Start: 12-02-2023 End: 12-02-2023 Patient encounter procedure 12/02/2023 3:20 PM EDT Office Visit [facility] [place] [address] [place] [address] [place] [address] Jeri Trinidad, REINFORCING METAL WORKER - DIGITAL MEDIA STRATEGIST [address] [facility] [place] [address] [place] [address] [facility] Start: 11-03-2023 End: 11-03-2023 Patient encounter procedure [facility] Start: 11-03-2023 End: 01-02-2025 DBT Breast - bilateral screening Bilateral screening mammogram with tomosynthesis Imaging Routine Encounter for screening mammogram for malignant neoplasm of breast Expected: 11/03/2023, Expires: 01/02/2025 [facility] Work Phone: Comment on above: Expected: 11/03/2023, Expires: Start: 10-26-2023 End: 10-26-2023 Patient encounter procedure 10/26/2023 2:00 PM EDT Office Visit [facility] [address] [place] [id number] Estefanía Vera MD [address] [place], [place] [id number] [facility] Start: 10-17-2023 COVID-19 Vaccine ( season) COVID-19 Vaccine ( season) [facility] Start: 10-17-2023 Influenza vaccination Influenza Vaccine (#1) [facility] Start: 10-06-2023 End: 10-06-2023 Patient encounter procedure 10/06/2023 3:20 PM EDT Office Visit [facility] [address] [facility] [place] [address] [place] [address] Bridenthal, Jeri, REINFORCING METAL WORKER - DIGITAL MEDIA STRATEGIST [address] [place] [address] [place] [address] [facility] Start: 09-22-2023 End: 09-22-2023 Patient encounter procedure 09/22/2023 3:20 PM EDT Office Visit [facility] [address] [place] [address] [place] [address] Bridenthal, Jeri, REINFORCING METAL WORKER - DIGITAL MEDIA STRATEGIST [address] [place] [address] [place] [address] [facility] Start: 09-09-2023 End: 09-09-2023 Patient encounter procedure 09/09/2023 3:20 PM EDT Office Visit [facility] [address] [place] [address] [place] [address] Bridenthal, Jeri, REINFORCING METAL WORKER - DIGITAL MEDIA STRATEGIST [address] [facility] [place] [address] [place] [address] [facility] Start: 08-12-2023 End: 08-12-2023 Patient encounter procedure 08/12/2023 3:00 PM EDT Office Visit [facility] [address] [place] [address] [facility] [place] Start: 08-12-2023 End: 02-11-2024 25-hydroxyvitamin D3 [Mass/volume] in Serum or Plasma Vitamin D Deficiency Screening (Vit D 25) Lab Routine Age-related osteoporosis without current pathological fracture Vitamin D deficiency Expected: 08/12/2023 (Approximate), Expires: 02/11/2024 [facility] Comment on above: Expected: 08/12/2023 (Approximate), Expi res: 02/11/2024 Start: 08-12-2023 End: 02-11-2024 Comprehensive metabolic 1998 panel - Serum or Plasma Comprehensive metabolic panel Lab Routine Age-related osteoporosis without current pathological fracture Vitamin D deficiency Expected: 08/12/2023 (Approximate), Expires: 02/11/2024 [facility] Comment on above: Expected: 08/12/2023 (Approximate), Expi res: 02/11/2024 Start: 08-12-2023 End: 08-11-2024 DXA Skeletal system.axial Views for bone density DEXA bone density axial skeleton Imaging Routine Age-related osteoporosis without current pathological fracture Vitamin D deficiency Expected: 08/12/2023, Expires: 08/11/2024 [facility] Work Phone: Comment on above: Expected: 08/12/2023, Expires: Start: 08-12-2023 End: 02-11-2024 Magnesium [Mass/volume] in Serum or Plasma Magnesium Lab Routine Age-related osteoporosis without current pathological fracture Vitamin D deficiency Expected: 08/12/2023 (Approximate), Expires: 02/11/2024 [facility] Comment on above: Expected: 08/12/2023 (Approximate), Expi res: 02/11/2024 Start: 08-12-2023 End: 02-11-2024 Parathyrin.intact [Mass/volume] in Serum or Plasma PTH, intact Lab Routine Age-related osteoporosis without current pathological fracture Vitamin D deficiency Expected: 08/12/2023 (Approximate), Expires: 02/11/2024 [facility] Comment on above: Expected: 08/12/2023 (Approximate), Expi res: 02/11/2024 Start: 08-12-2023 End: 02-11-2024 Phosphate [Moles/volume] in Serum or Plasma Phosphorus Lab Routine Age-related osteoporosis without current pathological fracture Vitamin D deficiency Expected: 08/12/2023 (Approximate), Expires: 02/11/2024 [facility] Comment on above: Expected: 08/12/2023 (Approximate), Expi res: 02/11/2024 Start: 08-12-2023 End: 02-11-2024 Thyrotropin [Units/volume] in Serum or Plasma TSH Lab Routine Fatigue, unspecified type Expected: 08/12/2023 (Approximate), Expires: 02/11/2024 [facility] Comment on above: Expected: 08/12/2023 (Approximate), Expi res: 02/11/2024 Start: 07-28-2023 End: 07-28-2023 Patient encounter procedure 07/28/2023 3:20 PM EDT Office Visit [facility] [address] [place] [address] [place] [address] Jeri Trinidad, REINFORCING METAL WORKER - DIGITAL MEDIA STRATEGIST [address] [place] [address] [place] [address] [facility] Start: 07-08-2023 End: 07-08-2023 Patient encounter procedure [facility] Start: 06-29-2023 End: 06-29-2023 Patient encounter procedure 06/29/2023 3:15 PM EDT Appointment [facility] [address] [place] [phone] [facility] Start: 06-29-2023 Subsequent hospital visit by physician 06/29/2023 3:15 PM EDT Hospital Encounter [facility] [address] [place] [phone] [facility] Start: 06-24-2023 End: 06-24-2023 Patient encounter procedure [facility] Start: 05-26-2023 Depression Monitoring Depression Monitoring [facility] Start: 05-26-2023 Depresssion Monitoring Depresssion Monitoring [facility] Start: 05-20-2023 End: 05-19-2024 MR Lumbar spine WO contrast MR lumbar spine wo contrast Imaging Routine Mass on back Systemic sclerosis (HCC) Expected: 05/20/2023, Expires: 05/19/2024 [facility] Comment on above: Expected: 05/20/2023, Expires: Start: 05-20-2023 End: 05-19-2024 MR Thoracic spine WO contrast MR thoracic spine wo contrast Imaging Routine Mass on back Systemic sclerosis (HCC) Expected: 05/20/2023, Expires: 05/19/2024 [facility] Work Phone: Comment on above: Expected: 05/20/2023, Expires: Start: 05-18-2023 End: 05-18-2023 Patient encounter procedure 05/18/2023 2:40 PM EDT Office Visit [facility] [address] [place] [address] [place] [address] Bridenthal, Jeri, REINFORCING METAL WORKER - DIGITAL MEDIA STRATEGIST [address] [place] [address] [place] [address] [facility] Start: 05-10-2023 End: 05-10-2023 Patient encounter procedure 05/10/2023 3:00 PM EDT Office Visit [facility] [address] [place] [id number] Andree Gamble MD [address] [place], [place] [address] [facility] Start: 05-05-2023 Diabetes mellitus screening Diabetes Screening [facility] Comment on above: Postponed from 1990 (Other Patient Reasons) Start: 04-29-2023 End: 04-29-2023 Patient encounter procedure 04/29/2023 3:20 PM EDT Office Visit [facility] [address] [place] [address] [place] [address] Bridenthal, Jeri, REINFORCING METAL WORKER - DIGITAL MEDIA STRATEGIST [address] [place] [address] [place] [address] [facility] Start: 04-04-2023 Screening for malignant neoplasm of colon Colorectal Cancer Screening [facility] Comment on above: Postponed from 1972 (Other Patient Reasons) Start: 03-31-2023 End: 03-31-2023 Patient encounter procedure 03/31/2023 3:20 PM EST Office Visit [facility] [address] [place] [address] [place] [address] Bridenthal, Jeri, REINFORCING METAL WORKER - DIGITAL MEDIA STRATEGIST [address] [place], [place] [id number] [facility] Start: 03-06-2023 Screening for malignant neoplasm of cervix Cervical Cancer Screening [facility] Comment on above: Postponed from 2002 (Other Patient Reasons) Start: 03-04-2023 End: 03-04-2024 25-hydroxyvitamin D3 [Mass/volume] in Serum or Plasma Vitamin D Deficiency Screening (Vit D 25) Lab Routine Encounter for vitamin deficiency screening Expected: 03/04/2023 (Approximate), Expires: 03/04/2024 [facility] [employer] Comment on above: Expected: 03/04/2023 (Approximate), Expi res: 03/04/2024 Start: 03-04-2023 End: 03-04-2024 CBC panel - Blood by Automated count CBC Lab Routine Screening for deficiency anemia Expected: 03/04/2023 (Approximate), Expires: 03/04/2024 [facility] Comment on above: Expected: 03/04/2023 (Approximate), Expi res: 03/04/2024 Start: 03-04-2023 End: 03-04-2024 Cobalamin (Vitamin B12) [Mass/volume] in Serum or Plasma Vitamin B12 Lab Routine Encounter for vitamin deficiency screening Expected: 03/04/2023 (Approximate), Expires: 03/04/2024 [facility] [employer] Comment on above: Expected: 03/04/2023 (Approximate), Expi res: 03/04/2024 Start: 03-04-2023 End: 03-04-2024 Comprehensive metabolic 1998 panel - Serum or Plasma Comprehensive metabolic panel Lab Routine Primary hypertension Expected: 03/04/2023 (Approximate), Expires: 03/04/2024 [facility] [employer] Work Phone: Comment on above: Expected: 03/04/2023 (Approximate), Expi res: 03/04/2024 Start: 03-04-2023 End: 03-04-2024 CT Chest for screening WO contrast [facility] [employer] Comment on above: Expected: 03/04/2023, Expires: Start: 03-04-2023 End: 03-04-2024 Lipid 1996 panel - Serum or Plasma Lipid panel Lab Routine Hypercholesterolemia Expected: 03/04/2023 (Approximate), Expires: 03/04/2024 [facility] Comment on above: Expected: 03/04/2023 (Approximate), Expi res: 03/04/2024 Start: 03-04-2023 End: 03-04-2023 Patient encounter procedure 03/04/2023 9:00 AM EST Office Visit [facility] [address] [place] [address] [place] [address] Bridenthal Jeri, REINFORCING METAL WORKER - DIGITAL MEDIA STRATEGIST [address] [place] [address] [place] [address] [facility] Start: 02-15-2023 [facility] Start: 02-03-2023 End: 02-03-2023 Patient encounter procedure 02/03/2023 3:00 PM EST Office Visit [facility] [address] [place] [address] [place] [address] Bridenthal Jeri, REINFORCING METAL WORKER - DIGITAL MEDIA STRATEGIST [address] [place] [address] [place] [address] [facility] Start: 01-29-2023 Screening for malignant neoplasm of breast Mammogram [facility] Start: 01-20-2023 Screening for osteoporosis Bone Density Scan [facility] Start: 01-06-2023 End: 01-06-2023 Patient encounter procedure 01/06/2023 3:20 PM EST Office Visit [facility] [address] [place] [address] [place] [address] Bridenthal Jeri, REINFORCING METAL WORKER - DIGITAL MEDIA STRATEGIST [address] [place] [address] [place] [address] [facility] Start: 12-07-2022 End: 12-07-2022 Patient encounter procedure 12/07/2022 3:20 PM EDT Office Visit [facility] [address] [place] [address] [place] [address] Bridenthal, Jeri, REINFORCING METAL WORKER - DIGITAL MEDIA STRATEGIST [address] [place] [address] [place] [address] [facility] Start: 10-16-2022 Influenza vaccination Influenza Vaccine (#1) [facility] Start: 10-02-2022 Adult depression screening assessment DEPRESSION SCREENING [facility] Start: 08-31-2022 Procedure [facility] Start: 08-12-2022 Adult depression screening assessment DEPRESSION SCREENING [facility] Start: 06-24-2022 Patient referral [facility] Work Phone: Start: 2022 Screening for malignant neoplasm of lung Lung Cancer Screening [facility] Start: 2022 Shingrix Vaccine (1 of 2) Shingrix Vaccine (1 of 2) [facility] Start: 2022 Zoster Vaccines (1 of 2) Zoster Vaccines (1 of 2) [facility] Start: 05-21-2022 Iv infusion ther proph addl sequential to 1 hr TX/PROPH/DG ADDL SEQ IV INF [facility] Start: 05-21-2022 Iv infusion therapy/prophylaxis /dx 1st to 1 hr THER/PROPH/DIAG IV INF [facility] Start: 05-20-2022 Iv infusion ther proph addl sequential to 1 hr TX/PROPH/DG ADDL SEQ IV INF [facility] Start: 05-20-2022 Iv infusion therapy/prophylaxis /dx 1st to 1 hr THER/PROPH/DIAG IV INF [facility] Start: 05-19-2022 Iv infusion therapy/prophylaxis /dx 1st to 1 hr THER/PROPH/DIAG IV INF [facility] Start: 05-18-2022 Iv infusion therapy/prophylaxis /dx 1st to 1 hr THER/PROPH/DIAG IV INF [facility] Start: 05-16-2022 Iv infusion therapy/prophylaxis /dx 1st to 1 hr THER/PROPH/DIAG IV INF [facility] Start: 05-14-2022 Complete blood count [facility] Start: 05-14-2022 [facility] Start: 05-13-2022 Iv infusion hydration each additional hour HYDRATE IV INFUSION ADD-ON [facility] Start: 05-12-2022 Iv infusion therapy/prophylaxis /dx 1st to 1 hr THER/PROPH/DIAG IV INF [facility] Start: 05-12-2022 Therapeutic injection iv push each new drug TX/PRO/DX INJ NEW DRUG [facility] Start: 05-11-2022 Iv infusion therapy/prophylaxis /dx 1st to 1 hr THER/PROPH/DIAG IV INF [facility] Start: 05-11-2022 Therapeutic injection iv push each new drug TX/PRO/DX INJ NEW DRUG [facility] Start: 05-09-2022 Iv infusion therapy/prophylaxis /dx 1st to 1 hr THER/PROPH/DIAG IV INF [facility] Start: 05-08-2022 Iv infusion therapy/prophylaxis /dx 1st to 1 hr THER/PROPH/DIAG IV INF [facility] Start: 02-16-2022 Urine microalbumin profile DTAP,TDAP,TD (1 - Tdap) [facility] Comment on above: Postponed from 06/08/1991 (Insurance Cov erage) Start: 02-15-2022 Depression Assessment Depression Assessment [facility] Start: 02-10-2022 Patient referral [facility] Work Phone: Start: 01-30-2022 Patient referral [facility] Work Phone: Start: 10-16-2021 Influenza vaccination [facility] Start: 08-12-2021 End: 10-12-2021 CBC W Auto Differential panel - Blood CBC + DIFF Lab Routine Chronic pain syndrome Expected: 08/12/2021, Expires: 10/12/2021 [facility] Work Phone: Comment on above: Expected: 08/12/2021, Expires: 2 Start: 08-12-2021 End: 10-12-2021 Cobalamin (Vitamin B12) [Mass/volume] in Serum or Plasma VITAMIN B12 BLOOD Lab Routine B12 deficiency Expected: 08/12/2021, Expires: 10/12/2021 [facility] Work Phone: Comment on above: Expected: 08/12/2021, Expires: 2 Start: 08-12-2021 End: 10-12-2021 Comprehensive metabolic 2000 panel - Serum or Plasma COMP METABOLIC PANEL Lab Routine Chronic pain syndrome Expected: 08/12/2021, Expires: 10/12/2021 [facility] Work Phone: Comment on above: Expected: 08/12/2021, Expires: 2 Start: 08-12-2021 End: 10-12-2021 Hepatitis C virus Ab [Presence] in Serum HEP C AB IA W/CONF SCRN Lab Routine Special screening examination for viral disease Expected: 08/12/2021, Expires: 10/12/2021 [facility] Work Phone: Comment on above: Expected: 08/12/2021, Expires: 2 Start: 08-12-2021 End: 10-12-2021 HIV 1+2 Ab [Presence] in Serum or Plasma by Immunoassay HIV 1 2 COMBO(AG/AB),WITH REFLEX TO DIFFERENTIATION Lab Routine Screening for HIV (human immunodeficiency virus) Expected: 08/12/2021, Expires: 10/12/2021 [facility] Work Phone: Comment on above: Expected: 08/12/2021, Expires: 2 Start: 08-12-2021 End: 10-12-2021 Lipid 1996 panel - Serum or Plasma LIPID PANEL BASIC Lab Routine Screening for lipid disorders History of hyperlipidemia Expected: 08/12/2021, Expires: 10/12/2021 [facility] Work Phone: Comment on above: Expected: 08/12/2021, Expires: 2 Start: 08-12-2021 End: 10-12-2021 LIPID PANEL, NONFASTING LIPID PANEL, NONFASTING Lab Routine Screening for lipid disorders History of hyperlipidemia Expected: 08/12/2021, Expires: 10/12/2021 [facility] Work Phone: Comment on above: Expected: 08/12/2021, Expires: 2 Start: 08-12-2021 End: 10-12-2021 PAIN PANEL, UR QUANT PAIN PANEL, UR QUANT Lab Routine Chronic pain syndrome Expected: 08/12/2021, Expires: 10/12/2021 [facility] Work Phone: Comment on above: Expected: 08/12/2021, Expires: 2 Start: 08-12-2021 End: 10-12-2021 TOX SCREEN ROUT UR TOX SCREEN ROUT UR Lab Routine Chronic pain syndrome Expected: 08/12/2021, Expires: 10/12/2021 [facility] Work Phone: Comment on above: Expected: 08/12/2021, Expires: 2 Start: 02-15-2021 DEPRESSION ASSESSMENT DEPRESSION ASSESSMENT [facility] Start: 2017 COLOGUARD (FIT-DNA) COLOGUARD (FIT-DNA) [facility] Start: 2017 Colonoscopy COLONOSCOPY [facility] Start: 2017 COLORECTAL CANCER SCREENING COLORECTAL CANCER SCREENING [facility] Start: [address] COLONOGRAPHY [facility] Start: 2017 DIABETES SCREEN DIABETES SCREEN [facility] Start: 2017 FECAL OCCULT BLOOD FECAL OCCULT BLOOD [facility] Start: 2017 LIPID SCREEN LIPID SCREEN [facility] Start: 2017 SIGMOIDOSCOPY SIGMOIDOSCOPY [facility] Start: 2012 Mammography [facility] Start: 2012 Screening for malignant neoplasm of breast Mammogram [facility] Start: 03-06-2008 PAP TESTING PAP TESTING [facility] Start: 2002 HPV TESTING HPV TESTING [facility] Start: 2002 Screening for malignant neoplasm of cervix [facility] Start: 1993 Screening for malignant neoplasm of cervix Pap Smear [facility] Start: 06-08-1991 DTaP/Tdap/Td Vaccines (1 - Tdap) DTaP/Tdap/Td Vaccines (1 - Tdap) [facility] Start: 06-08-1991 Hepatitis B Vaccines (1 of 3 - 19+ 3-dose series) Hepatitis B Vaccines (1 of 3 - 19+ 3-dose series) [facility] Start: 06-08-1991 Urine microalbumin profile [facility] Start: 1990 Diabetes mellitus screening Diabetes Screening [facility] Start: 1990 HEPATITIS C SCREENING HEPATITIS C SCREENING [facility] Start: 1990 Hepatitis C screening Hepatitis C Screening [facility] Start: 1990 HIV SCREENING HIV SCREENING [facility] Start: 1984 Adult depression screening assessment DEPRESSION SCREENING [facility] Start: 1978 PNEUMOCOCCAL (1 - PCV) PNEUMOCOCCAL (1 - PCV) [facility] Start: 1978 Pneumococcal vaccination Pneumococcal Vaccine (1 - PCV) [facility] Start: 1977 COVID-19 VACCINE (#1) COVID-19 VACCINE (#1) [facility] Start: 1973 MMR Vaccines (1 of 1 - Standard series) MMR Vaccines (1 of 1 - Standard series) [facility] Start: 1972 COVID-19 VACCINE (#1) COVID-19 VACCINE (#1) [facility] Start: 1972 HEPATITIS B (1 of 3 - 3-dose series) HEPATITIS B (1 of 3 - 3-dose series) [facility] Start: 1972 Hepatitis B Vaccine (1 of 3 - 3-dose series) Hepatitis B Vaccine (1 of 3 - 3-dose series) [facility] Start: 1972 Hepatitis B Vaccines (1 of 3 - 3-dose series) Hepatitis B Vaccines (1 of 3 - 3-dose series) [facility] Start: 1972 HIV screening HIV Screening [facility] Start: 1972 Lipid panel Lipid Panel [facility] Start: 1972 Medicare Advantage Annual Wellness Visit (AWV) Medicare Advantage Annual Wellness Visit (AWV) [facility] Start: 1972 Screening for malignant neoplasm of colon [facility] Start: 1972 Screening for osteoporosis Bone Density Scan [facility] Alanine aminotransfe rase [Enzymatic activity/volume] in Serum or Plasma [facility] Albumin [Mass/volume ] in Serum or Plasma [facility] Alkaline phosphatase [Enzymatic activity/volume] in Serum or Plasma [facility] Anion gap measurement [facility] Aspartate aminotransferase [Enzymatic activity/volume] in Serum or Plasma [facility] Bilirubin, total measurement [facility] BUN/Creatinine ratio [facility] Calcium [Mass/volume ] in Serum or Plasma [facility] Carbon dioxide, tota l [Moles/volume] in Serum or Plasma [facility] Chloride [Moles/volu me] in Serum or Plasma [facility] Creatinine [Moles/volume] in Serum or Plasma [facility] Cytology Cervical or vaginal smear or scraping study Pap Smear Pathology and Cytology Routine Screening for cervical cancer Ordered: 05/31/2024 [facility] Work Phone: Comment on above: Ordered: 05/31/2024 Erythrocyte sedimentation rate [facility] Glucose [Mass/volume ] in Serum or Plasma [facility] Hematocrit [Volume Fraction] of Blood [facility] Hemoglobin [Mass/vol ume] in Blood [facility] Leukocytes [#/volume ] in Blood [facility] Mean corpuscular hemoglobin concentration determination [facility] Mean corpuscular hemoglobin determination [facility] Measurement of renal function [facility] MR Lower Extremity [facility] End: 07-08-2023 MR Lumbar spine WO contrast [facility] [employer] Work Phone: Comment on above: Once for 1 Occurrences starting 07/08/19 until 07/08/2023 End: 07-08-2023 MR Thoracic spine WO contrast [facility] Work Phone: Comment on above: Once for 1 Occurrences starting 07/08/19 until 07/08/2023 OUTSIDE PROCEDURE SCAN OUTSIDE P ROCEDURE SCAN Procedures Ordered: 06/23/2023 [facility] Comment on above: Ordered: 06/23/2023 OUTSIDE PROCEDURE SCAN OUTSIDE P ROCEDURE SCAN Procedures Ordered: 06/28/2023 [facility] Comment on above: Ordered: 06/28/2023 OUTSIDE PROCEDURE SCAN OUTSIDE P ROCEDURE SCAN Procedures Ordered: 07/07/2023 [facility] Comment on above: Ordered: 07/07/2023 Patient Education [facility] Work Phone: Patient referral [facility] Work Phone: PFIZER-BIONTECH COVI D-19 VACCINE, AGE 12+ YR (MORALES TOP) [employer]ER[employer] COVID-19 VACCINE, AGE 12+ YR (MORALES TOP) Immunization/Injection Routine Encounter for immunization 1 Occurrences starting 08/12/2021 [facility] Work Phone: Comment on above: 1 Occurrences starting 08/12/2021 Platelets [#/volume] in Blood [facility] Pneumococcal vaccination PNEUMOC OCCAL VACCINE (PREVNAR 20) Immunization/Injection Routine Encounter for immunization 1 Occurrences starting 08/12/2021 [facility] Work Phone: Comment on above: 1 Occurrences starting 08/12/2021 Potassium [Moles/vol ume] in Serum or Plasma [facility] End: 12-18-2023 [facility] spine lumbosacral 2/3 views XR LUMBAR GENERAL 3V AP/LAT/L5-S1 Radiology Routine Lumbar spondylosis Low back pain, unspecified back pain laterality, unspecified chronicity, unspecified whether sciatica present 1 Occurrences starting 11/18/2022 until 12/18/2023 [facility] Work Phone: Comment on above: 1 Occurrences starting 11/18/2022 until 12/18/2023 End: 12-18-2023 Radex spine thoracic 2 views XR THORACIC LIMITED 2V AP/LAT Radiology Routine Thoracic spondylosis without myelopathy 1 Occurrences starting 11/18/2022 until 12/18/2023 [facility] Work Phone: Comment on above: 1 Occurrences starting 11/18/2022 until 12/18/2023 Red blood cell count [facility] Red cell distributio n width determination [facility] End: 09-11-2022 Screening mammography bi 2-view breast inc cad CORBIN SCREENING Radiology Routine Encounter for screening mammogram for breast cancer 1 Occurrences starting 08/12/2021 until 09/11/2022 [facility] Work Phone: Comment on above: 1 Occurrences starting 08/12/2021 until 09/11/2022 Sodium [Moles/volume ] in Serum or Plasma [facility] Total protein measurement [facility] Urea nitrogen [Mass/volume] in Serum or Plasma [facility] End: 10-27-2022 US LEG VEIN DVT [facility] US LEG VEIN DVT [facility] Vascular Lab Routine Right calf pain 1 Occurrences starting 10/27/2021 until 10/27/2022 [facility] Work Phone: Comment on above: 1 Occurrences starting 10/27/2021 until 10/27/2022 Vancomycin [Mass/vol ume] in Serum or Plasma --trough [facility] Immunizations Immunization Date Immunization Notes Care Provider Carl erazo 12-09-2023 influenza, seasonal, injectable, preservative free Jeri Bridenthal REINFORCING METAL WORKER - DIGITAL MEDIA STRATEGIST Work Phone: [facility] 12-09-2023 influenza virus vaccine, unspecified formulation Jeri Bridenthal REINFORCING METAL WORKER - DIGITAL MEDIA STRATEGIST Work Phone: [facility] 12-07-2022 Seasonal, quadrivale nt, recombinant, injectable influenza vaccine, preservative free Jose D Slaughter MD Work Phone: [facility] 12-07-2022 influenza virus vaccine, unspecified formulation Sbh Schedule [facility] 12-30-2021 Pneumococcal conjuga te PCV20, polysaccharide [id number] conjugate, adjuvant, PF; Translations: [Prevnar 20] SOLIS SHELL REINFORCING METAL WORKER-DIGITAL MEDIA STRATEGIST [facility] 11-24-2021 influenza, injectabl e, quadrivalent, contains preservative; Translations: [Fluarix PF Quadrivalent ] WILLARD PERKINS REINFORCING METAL WORKER-DIGITAL MEDIA STRATEGIST [facility] 11-24-2021 influenza, injectabl e, quadrivalent, preservative free Jeri Bridenthal REINFORCING METAL WORKER - DIGITAL MEDIA STRATEGIST Work Phone: [facility] 11-24-2021 influenza virus vaccine, unspecified formulation Sabrina Tineo MD Work Phone: [facility] 10-22-2016 influenza virus vaccine, unspecified formulation WILLARD PERKINS REINFORCING METAL WORKER-DIGITAL MEDIA STRATEGIST [facility] 10-22-2016 influenza, injectabl e, quadrivalent, preservative free Jeri Bridenthal REINFORCING METAL WORKER - DIGITAL MEDIA STRATEGIST Work Phone: [facility] Payers Date Payer Category Payer Self-pay 2022 Medicare HMO [id number] 2021 Medicaid [id number] 2021 Medicaid [id number] 2021 Unknown [id number] 2021 Private Health Insurance [id number] 2021 Medicare UHC AARP MEDICAR E [facility] MEDICARE O [id number] 2021-Present [phone] [address] [address] [place] [address] O [id number] 2021 Medicare MEDICARE ADVANTA GE GENERIC MEDICARE ADVANTAGE GENERIC [id number] 2021-Present [phone] [address] [address] [place] [address] Indemnity [id number] 1998 Medicare [id number] 1998 Medicare [id number] 1972 Unknown [id number] 627 1972 Unknown [id number] 627 1972 Unknown [id number] 627 1972 Unknown [id number]. 627 1972 Unknown [id number]. 627 1972 Unknown [id number] 627 Unknown [facility] [id number] Unknown [id number] 462 Unknown [id number] 462 Unknown [id number] 462 Unknown [id number] 462 Unknown [id number] 462 Unknown [id number] 462 Social History Date Type Detail Facility [facility] Work Phone: Start: 08-08-2021 End: 02-15-2023 Tobacco smoking status [facility] Unknown if ever smoked [facility] Start: 1970 Sex Assigned At Female [facility] Start: 08-12-2021 End: 01-22-2024 Tobacco smoking status [facility] Smokes tobacco daily [facility] Work Phone: History of tobacco use Cigarette Smoker C [facility] Work Phone: Start: 02-03-2010 End: 11-18-2022 Alcohol intake Current non-drinker of alcohol (finding) [facility] Start: 1970 Sex Assigned At Not on file C [facility] Start: 07-26-2021 End: 08-05-2021 Exposure to SARS-CoV-2 (event) Unable to assess [facility] Work Phone: Start: 08-02-2021 End: 11-21-2021 Exposure to SARS-CoV-2 (event) Not sure [facility] Work Phone: Start: 08-12-2021 End: 11-03-2023 Cigarettes smoked current (pack per day) - Reported 0.5 [facility] Start: 08-12-2021 End: 08-12-2023 Tobacco use and exposure Smokeless tobacco non-user [facility] Work Phone: Start: 11-24-2021 Tobacco smoking status Heavy t obacco smoker (finding) [facility] Start: 05-12-2022 End: 08-11-2022 Tobacco smoking status Light tobacco smoker (finding) [facility] Start: 11-18-2022 End: 11-03-2023 Tobacco use panel [facility] Adult Depression Screening Assessment 0 [facility] Start: 11-24-2022 End: 08-30-2024 Alcohol intake Ex-drinker (finding) [place] (I/We) worried wheth er (my/our) food would run out before (I/we) got money to buy more. Never true [place] In the past 12 month s, was there a time when you were not able to pay the mortgage or rent on time? No [facility] Start: 06-29-2018 End: 07-22-2022 Sex Female (finding) [place] Sexual Orientation [facility] NEGATED: Highlighted row [facility] Functional Status Date Assessment Result Facility 08-05-2023 [...] be. She plans to consult with an [employer] gentleman who makes her shoes. Cardiovascular screen: [...] and this may be an appropriate recommendation. [facility] 07-03-2022 Functional Status Objective: Cardiovascular screen: BP: 146/88 (R arm only per patient) HR: 76 BPM O2 sat: 98% Gait: Atalgic with lateral trunk shift L, ambulates with narrow base of support and short shuffling steps. hip ROM and strength: see chart Obsevation: LUE and LE does appear to have significant atrophy, L shoe is built up to increase leg length [facility] 05-13-2022 Functional Status Room check performed [facility] 05-07-2022 Functional Status Room located n ear nursing station, Door open, Bathroom light on, Non-Slip footwear, Room check performed [facility] 05-07-2022 Functional Status [facility] 05-07-2022 Functional Status bilateral knee high [facility] 05-07-2022 Functional Status [facility] 05-07-2022 Functional Status [facility] 05-06-2022 Functional Status Skin Care Prev entative Intervention(s) heel(s)s elevated [facility] 05-06-2022 Functional Status Lunch Percent 50 [facility] 05-06-2022 Functional Status [facility] 05-05-2022 Functional Status [facility] 05-05-2022 Functional Status SCD On/Re-appl ied bilateral knee high [facility] 05-05-2022 Functional Status [facility] 05-05-2022 Functional Status [facility] to gather information regarding PLOF and home set-up (05/05/22) [facility] 05-05-2022 Functional Status [facility] 05-04-2022 Functional Status None [facility] 05-04-2022 Functional Status [facility] 05-04-2022 Functional Status Apartment [facility] Minimum roxie tance [facility] 05-03-2022 Functional Status Ron[facility] 05-03-2022 Functional Status Assistive Equi pment elevated on pillows [facility] 05-03-2022 Functional Status Ronny Baker [facility] 05-03-2022 Functional Status Ron[facility] 05-02-2022 Functional Status Ronny Baker [facility] 05-02-2022 Functional Status Ronny Baker [facility] 05-02-2022 Functional Status Maintained Ronny Baker [facility] 05-02-2022 Functional Status Ronny Baker [facility] 05-02-2022 Functional Status Ron[facility] Baker [facility] 05-02-2022 Functional Status N/A Ronny [facility] 05-02-2022 Functional Status Room check performed [facility] 05-01-2022 Functional Status Ronny Baker [facility] 05-01-2022 Functional Status Ronny Baker [facility] 05-01-2022 Functional Status Ron[facility] Baker [facility] 05-01-2022 Functional Status Ronny Baker [facility] 05-01-2022 Functional Status Breakfast Percent 25 [facility] 05-01-2022 Functional Status Yes [facility] 04-30-2022 Functional Status Ron[facility] 04-30-2022 Functional Status SCD On/Re-appl ied bilateral knee high [facility] 04-30-2022 Functional Status Ron[facility] Baker [facility] 04-30-2022 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, 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, 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, 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, Laundry, Meal preparation, Personal ADL, Shopping [facility] 04-29-2022 Functional Status Sensory Defici ts Blind, left eye [facility] Mental Status Date Assessment Result Facility 02-15-2023 Cognitive function Level Of Cons ciousness Awake;Alert;Appropriate;Follow s Commands [facility] Work Phone: 05-20-2022 Cognitive function Awake;Alert;A ppropriate;Follow s Commands [facility] Work Phone: 05-19-2022 Cognitive function Voice/Name [facility] Work Phone: 05-18-2022 Cognitive function Voice/Name [facility] Work Phone: 05-15-2022 Cognitive function Awake;Alert;A ppropriate;Follow s Commands [facility] Work Phone: 05-14-2022 Cognitive function Awake;Alert;A ppropriate;Follow s Commands [facility] Work Phone: 05-13-2022 Mental Status Oriented x 4 [facility] 05-13-2022 Cognitive function Awake;Alert;A ppropriate;Follow s Commands [facility] Work Phone: 05-12-2022 Cognitive function Voice/Name [facility] Work Phone: 05-11-2022 Cognitive function Voice/Name [facility] Work Phone: 05-08-2022 Cognitive function Voice/Name [facility] Work Phone: 05-07-2022 Mental Status Oriented x 4 [facility] 05-07-2022 Mental Status [facility] 05-06-2022 Mental Status [facility] 05-06-2022 Mental Status [facility] 05-02-2022 Mental Status Orientation Oriented x 4 [facility] 05-01-2022 Mental Status [facility] 05-01-2022 Mental Status [facility] 05-01-2022 Mental Status [facility] 08-08-2021 Cognitive function Level Of Cons ciousness Awake;Alert;Appropriate;Follow s Commands;Responds to vocal stimuli [facility] Work Phone: Clinical Notes 08-08-2021 to 10-13-2024 Telephone Encounter - Jeri Trinidad APRN - GARRISON - 10/06/2024 9:17 AM EDTTelephone Encounter - KATHERINE Escalante CNP - 10/06/2024 9:17 AM EDT Note Date & Type Note Facility 10-13-2024 Hospital Discharg e instructions Patient Education 10/13/2024 10:26:10 Cellulitis Skin Infection Cellulitis Cellulitis is an infection of the deep layers of skin. A break in the skin, such as a cut or scratch, can let bacteria under the skin. If the bacteria get to deep layers of the skin, it can be serious. If not treated, cellulitis can get into the bloodstream and lymph nodes. The infection can then spread throughout the body. This causes serious illness. Cellulitis causes the affected skin to become red, swollen, warm, and sore. The reddened areas have a visible border. An open sore may leak fluid (pus). You may have a fever, chills, and pain. Cellulitis is treated with antibiotics taken for 7 to 10 days. An open sore may be cleaned and covered with cool wet gauze. Symptoms should get better 1 to 2 days after treatment is started. Make sure to take all the antibiotics for the full number of days until they are gone. Keep taking the medicine even if your symptoms go away. Home care Follow these tips: Limit the use of the part of your body with cellulitis. If the infection is on your leg, keep your leg raised while sitting. This will help to reduce swelling. Take all of the antibiotic medicine exactly as directed until it is gone. Do not miss any doses, especially during the first 7 days. Don t stop taking the medicine when your symptoms get better. Keep the affected area clean and dry. Wash your hands with soap and warm water before and after touching your skin. Anyone else who touches your skin should also wash his or her hands. Don't share towels. Follow-up care Follow up with your healthcare provider, or as advised. If your infection does not go away on the first antibiotic, your healthcare provider will prescribe a different one. When to seek medical advice Call your healthcare provider right away if any of these occur: Red areas that spread Swelling or pain that gets worse Fluid leaking from the skin (pus) Fever higher of 100.4 F (38.0 C) or higher after 2 days on antibiotics [id number] [employer]. [address] [place] [id number]. All rights reserved. This information is not intended as a substitute for professional medical care. Always follow your healthcare professional's instructions. Follow Up Care 10/13/2024 08:35:55 With:JERI TRINIDAD APRN/GARRISON Address: [address] [place] [id number] [phone] When:2-4 days [facility] 10-13-2024 Note Discharge Instructions Thank you for allowing [facility] to assist you with your healthcare needs. The following is important discharge information regarding your hospital visit. Diagnosis from Today's Visit Cellulitis What to Do Next Instructions from Your Care Team You need to be evaluated if you do not feel better in 24 to 48 hours. You need to be evaluated if in 24 to 48 hours you still have fever or if the skin redness is not improving. No qualifying data available. Post Acute Orders No qualifying data available. You Need to Schedule the Following Appointments Follow Up with JERI TRINIDAD APRN/GARRISON When:Within 2-4 days Where:[address] [address] [phone] Allergies Cymbalta Racing Heart traMADol Unknown traZODone Racing Heart Medications Please ask your primary doctor or pharmacist before taking any other medication not listed, including over the counter drugs, herbal medications, vitamins and or supplements as they may interact with your home medications. What How Much When Why Instructions Last Dose New doxycycline (doxycycline hyclate 100 mg oral capsule) 1 cap by mouth Two (2) times a day Duration: 10 Days Printed Prescription Unchanged acetaminophen-oxyCODONE (Percocet 7.5 mg-325 mg oral tablet) 1 tab(s) by mouth As Directed as needed for as needed for pain Degenerative joint disease (DJD) of lumbar spine Left lumbosacral radiculopathy Duration: 30 Days 2/ day for one week then 1/ day for 2 weeks then d/ c. Unchanged amitriptyline (amitriptyline 50 mg oral tablet) 1 tab(s) by mouth Daily at bedtime Unchanged amLODIPine (amLODIPine 5 mg oral tablet) 1 tab(s) by mouth Once a day Duration: 90 Days Unchanged atorvastatin (atorvastatin 20 mg oral tablet) 1 tab(s) by mouth Once a day Unchanged cetirizine (Zyrtec 10 mg oral tablet) 1 tab(s) by mouth Once a day as needed for as needed for allergy symptoms Unchanged dexlansoprazole (dexlansoprazole 60 mg oral delayed [...] Unchanged eszopiclone (eszopiclone 3 mg oral tablet) TAKE 1 TABLET BY MOUTH EVERY DAY AT BEDTIME FOR 30 DAYS Unchanged fenofibric acid (fenofibric acid 45 mg oral delayed release capsule) 1 cap by mouth Once a day Unchanged ondansetron (Zofran ODT use ondansetron oral tablet, disintegrating ) 4 Milligram by mouth Every 8 hours as needed for as needed for nausea/vomiting Unchanged tiZANidine (Zanaflex 4 mg oral tablet) 2 tab(s) by mouth Daily at bedtime as needed for Muscle spasm Duration: 90 Days Please take this list to your next doctor s visit. Bring all medications you take, including over the counter medications, herbals and other supplements with you to your doctor s visit. Patients and families are reminded to discard old lists and to update any records with all medication providers or retail pharmacies. Education Materials Cellulitis Cellulitis is an infection of the deep layers of skin. A break in the skin, such as a cut or scratch, can let bacteria under the skin. If the bacteria get to deep layers of the skin, it can be serious. If not treated, cellulitis can get into the bloodstream and lymph nodes. The infection can then spread throughout the body. This causes serious illness. Cellulitis causes the affected skin to become red, swollen, warm, and sore. The reddened areas have a visible border. An open sore may leak fluid (pus). You may have a fever, chills, and pain. Cellulitis is treated with antibiotics taken for 7 to 10 days. An open sore may be cleaned and covered with cool wet gauze. Symptoms should get better 1 to 2 days after treatment is started. Make sure to take all the antibiotics for the full number of days until they are gone. Keep taking the medicine even if your symptoms go away. Home care Follow these tips: Limit the use of the part of your body with cellulitis. If the infection is on your leg, keep your leg raised while sitting. This will help to reduce swelling. Take all of the antibiotic medicine exactly as directed until it is gone. Do not miss any doses, especially during the first 7 days. Don t stop taking the medicine when your symptoms get better. Keep the affected area clean and dry. Wash your hands with soap and warm water before and after touching your skin. Anyone else who touches your skin should also wash his or her hands. Don't share towels. Follow-up care Follow up with your healthcare provider, or as advised. If your infection does not go away on the first antibiotic, your healthcare provider will prescribe a different one. When to seek medical advice Call your healthcare provider right away if any of these occur: Red areas that spread Swelling or pain that gets worse Fluid leaking from the skin (pus) Fever higher of 100.4 F (38.0 C) or higher after 2 days on antibiotics [id number] [employer]. [address] [place] [address]. All rights reserved. This information is not intended as a substitute for professional medical care. Always follow your healthcare professional's instructions. Additional Information VACCINATE! IT SAVES LIVES! Members of the community who have not yet received the COVID-19 vaccine and would like to receive it can visit one of [facility] vaccine clinics. There are many vaccine clinic locations within the [facility]. For locations and available times, please visit [email or web address] It is important to note that some COVID mobile vaccine clinics are held outdoors and may be canceled in rainy or stormy conditions. To learn more about pediatric vaccinations (ages 5-11), we invite you to visit the [facility] webpage. [email or web address] To learn more about the COVID-19 vaccine, we invite you to visit the CDC website for a list of frequently asked questions. https://www.cdc.gov/coronavirus/ 2019-ncov/vaccines/faq.html [facility] Patient Portal Access Instructions: Stay connected with your healthcare team and access your personal medical information anytime with the [facility] Patient Portal. If you would like a full copy of your medical records please contact the [facility] Medical Records Department Wednesday through Wednesday between 8a.m. and 4:30p.m. Please follow the directions below to access the portal: 1.Access the email account you provided upon registration to the hospital.2.Look for an invitation email from [facility].3.Open the email and access the invitation link: Accept Invitation to [facility]4.Fill in the required mariano to create your account. Sign into [email or web address] with your username and password that you [...] you will allow to register on the [facility] Patient Portal for access to your information. You can also access the [facility] Patient Portal on the [employer] maria ines. Simply click on Health Records under Health Data and then click on the [employer] logo. HOW TO SAFELY DISPOSE OF PRESCRIPTION [...] Call your local pharmacy or go to [email or web address] to find one close to you.3.Make use of household items: Use cat litter or old coffee grounds to dispose medications if other options are not available. Mix your drugs with these household products, seal them in an airtight container and throw it into the garbage. Call [facility]: [phone] to be sure your drugs can be [...] a CHART COPY Signatures Patient Education Materials Cellulitis Skin Infection Medication Leaflets My discharge plan and instructions have been reviewed and explained to me and I,SUE MONCADA understand my current condition and have read and understand these discharge instructions. I have received a written copy of the plan/instructions. If I have questions, I am aware that I should contact my doctor. 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 Refill appropriate. RX sent. [facility] 10-06-2024 Miscellaneous Notes Reviewed chart. Refill appropriate. RX sent. Prescription Request: ATORVASTATIN 20 MG TABLET AMITRIPTYLINE HCL 50 MG TAB Last medication check: 08/30/24 Last physical exam: 03/14/24 Next scheduled appointment: 11/30/24 Last date of refill on this medication Atorvastatin - 04/04/24 ( qty 90 refill 1) Amitryptyline - 04/14/24 ( qty 90 refill 1) Routing to correct office. documented in this encounter [facility] 10-06-2024 Telephone encounter Note Prescription Request: ATORVASTATIN 20 MG TABLET AMITRIPTYLINE HCL 50 MG TAB Last medication check: 08/30/24 Last physical exam: 03/14/24 Next scheduled appointment: 11/30/24 Last date of refill on this medication Atorvastatin - 04/04/24 ( qty 90 refill 1) Amitryptyline - 04/14/24 ( qty 90 refill 1) [facility] 10-06-2024 Telephone encounter Note Routing to correct office. [facility] 10-06-2024 Telephone encounter Note Reviewed chart. Refill appropriate. RX sent. [facility] 10-06-2024 Miscellaneous Notes Reviewed chart. Refill appropriate. RX sent. Images from the original note were not included. Prescription Request: oxyCODONE-acetaminophen (Percocet) 5-325 MG tablet Last medication check: 08/30/24 Last physical exam: 03/14/24 Next scheduled appointment: 11/30/24 CSA on file (date): 06/13/24 Last urine drug screen: 05/31/24 Last date of refill on this medication 09/07/24 ( qty 90 refill 0) documented in this encounter [facility] 10-06-2024 Telephone encounter Note Images from the original note were not included. Prescription Request: oxyCODONE-acetaminophen (Percocet) 5-325 MG tablet Last medication check: 08/30/24 Last physical exam: 03/14/24 Next scheduled appointment: 11/30/24 CSA on file (date): 06/13/24 Last urine drug screen: 05/31/24 Last date of refill on this medication 09/07/24 ( qty 90 refill 0) [facility] 10-04-2024 Telephone encounter Note Reviewed chart. Refill appropriate. RX sent. [facility] 10-04-2024 Miscellaneous Notes Reviewed chart. Refill appropriate. RX sent. Prescription Request: Last medication check: 08/30/2024 Last physical exam: 03/14/2024 Next scheduled appointment: 11/30/2024 CSA on file (date): 01/11/2024 Last urine drug screen: 05/31/2024 Last date of refill on this medication: 08/30/2024 documented in this encounter [facility] [employer] 10-04-2024 Telephone encounter Note Prescription Request: Last medication check: 08/30/2024 Last physical exam: 03/14/2024 Next scheduled appointment: 11/30/2024 CSA on file (date): 01/11/2024 Last urine drug screen: 05/31/2024 Last date of refill on this medication: 08/30/2024 [facility] [employer] 09-11-2024 Evaluation note Diagnosis Onset Date Resolution Bursitis of right shoulder acute September 11, 2024 2:23pm Right shoulder pain acute September 11, 2024 2:23pm [facility] Work Phone: 1(121) 363-834407-24-2025 Telephone encounter Note* Telephone Encounter - KATHERINE Escalante CNP - 09/07/2024 8:06 AM EDT Reviewed chart. Refill appropriate. RX sent. [facility] [id number] Miscellaneous Notes* Telephone Encounter - KATHERINE Escalante CNP - 09/07/2024 8:06 AM EDT Reviewed chart. Refill appropriate. RX sent. * Telephone Encounter - Jade Ceballos - 09/07/2024 6:58 AM EDT Images from the original note were not included. Prescription Request: oxyCODONE-acetaminophen (Percocet) 5-325 MG tablet Last medication check: 08/30/24 Last physical exam: 03/14/24 Next scheduled appointment: 11/30/24 Last date of refill on this medication 08/10/24 ( qty 90 refill 0) documented in this [facility]07-24-2025 Telephone encounter Note* Telephone Encounter - KATHERINE Escalante CNP - 09/07/2024 8:05 AM EDT Reviewed chart. Refill appropriate. RX sent. [id number] Miscellaneous Notes* Telephone Encounter - KATHERINE Escalante CNP - 09/07/2024 8:05 AM EDT Reviewed chart. Refill appropriate. RX sent. * Telephone Encounter - Jade Ceballos - 09/07/2024 7:25 AM EDT Prescription Request: TIZANIDINE HCL 4 MG TABLET Last medication check: 08/30/24 Last physical exam: 03/14/24 Next scheduled appointment: 11/30/24 Last date of refill on this medication 03/14/24 ( qty 90 refill 1) documented in this [facility]07-24-2025 Telephone encounter Note* Telephone Encounter - Jade Ceballos - 09/07/2024 7:25 AM EDT Prescription Request: TIZANIDINE HCL 4 MG TABLET Last medication check: 08/30/24 Last physical exam: 03/14/24 Next scheduled appointment: 11/30/24 Last date of refill on this medication 03/14/24 ( qty 90 refill 1) [id number] Telephone encounter Note* Telephone Encounter - Jade Ceballos - 09/07/2024 6:58 AM EDT Images from the original note were not included. Prescription Request: oxyCODONE-acetaminophen (Percocet) 5-325 MG tablet Last medication check: 08/30/24 Last physical exam: 03/14/24 Next scheduled appointment: 11/30/24 Last date of refill on this medication 08/10/24 ( qty 90 refill 0) [place] [id number] Telephone encounter Note* Telephone Encounter - Wendie Aguilar - 08/31/2024 10:01 AM EDT Please sign new referral. [place] [id number] Miscellaneous Notes* Telephone Encounter - Wendie Aguilar - 08/31/2024 10:01 AM EDT Please sign new referral. documented [facility] [id number] Evaluation + Plan note* Assessment & Plan Note - KATHERINE Escalante CNP - 08/30/2024 7:55 PM EDTAssociated Problem(s): Chronic pain syndrome Continue Percocet 5-3 25 every 8 hours as needed for severe pain. OARRS reviewed and consistent with treatment plan. MA is in place. Will see if we can find a palliative [place] to better help manage her symptoms. [id number] NoteContinue Percocet 5-3 25 every 8 hours as needed for severe pain. OARRS reviewed and consistent with treatment plan. JESSE MA is in place. Will see if we can find a palliative provider [place] to better help manage her symptoms.[facility]07-16-2025 Miscellaneous Notes* Assessment & Plan Note - KATHERINE Escalante CNP - 08/30/2024 7:55 PM EDTAssociated Problem(s): Chronic pain syndrome Continue Percocet 5-3 25 every 8 hours as needed for severe pain. OARRS reviewed and consistent with treatment plan. JESSE MA is in place. Will see if we can find a palliative provider [place] to better help manage her symptoms. * Assessment & Plan Note - KATHERINE Escalante CNP - 08/30/2024 7:54 PM EDTAssociated Problem(s): Chronic back pain Will treat for acute flareup with short burst of steroids. No red flags * Assessment & Plan Note - KATHERINE Escalante CNP - 08/30/2024 7:53 PM EDTAssociated Problem(s): Osteopetrosis Needs to get DEXA completed * Assessment & Plan Note - KATHERINE Escalante CNP - 08/30/2024 7:53 PM EDTAssociated Problem(s): Osteoporosis Needs to get her DEXA scan completed * Assessment & Plan Note - KATEHRINE Escalante CNP - 08/30/2024 7:53 PM EDTAssociated Problem(s): Insomnia Symptoms well-controlled on Lunesta 3 mg nightly. Continue current medication. OARRS reviewed and consistent with treatment plan * Assessment & Plan Note - KATHERINE Escalante CNP - 08/30/2024 7:53 PM EDTAssociated Problem(s): Unsatisfactory cervical Papanicolaou smear Last Pap smear unsatisfactory. Due to patient's anatomy and scleroderma, provider was unable to usespeculum and did not get a satisfactory she is low risk, no longer sexually active. No history of abnormal Pap smears. She has the option to discontinue her cervical cancer screenings or we can referher to a industrial eng, patient states she will let us know what she decides to do documented in this [facility]07-16-2025 Miscellaneous Notes* Assessment & Plan Note - KATHERINE Escalante CNP - 08/30/2024 7:55 PM EDTAssociated Problem(s): Chronic pain syndrome Continue Percocet 5-3 25 every 8 hours as needed for severe pain. OARRS reviewed and consistent with treatment plan. JESSE MA is in place. Will see if we can find a palliative [place] to [place] help manage her symptoms. * Assessment & Plan Note - KATHERINE Escalante CNP - 08/30/2024 7:54 PM EDTAssociated Problem(s): Chronic back pain Will treat for acute flareup with short burst of steroids. No red flags * Assessment & Plan Note - KATHERINE Escalante CNP - 08/30/2024 7:53 PM EDTAssociated Problem(s): Osteopetrosis Needs to get DEXA completed * Assessment & Plan Note - KATHERINE Escalante CNP - 08/30/2024 7:53 PM EDTAssociated Problem(s): Osteoporosis Needs to get her DEXA scan completed * Assessment & Plan Note - KATHERINE Escalante CNP - 08/30/2024 7:53 PM EDTAssociated Problem(s): Insomnia Symptoms well-controlled on Lunesta 3 mg nightly. Continue current medication. OARRS reviewed and consistent with treatment plan * Assessment & Plan Note - KATHERINE Escalante CNP - 08/30/2024 7:53 PM EDTAssociated Problem(s): Unsatisfactory cervical Papanicolaou smear Last Pap smear unsatisfactory. Due to patient's anatomy and scleroderma, provider was unable to usespeculum and did not get a satisfactory she is low risk, no longer sexually active. No history of abnormal Pap smears. She has the option to discontinue her cervical cancer screenings or we can referher to a industrial eng, patient states she will let us know what she decides to do documented in this [facility]07-16-2025 Evaluation + Plan note* Assessment & Plan Note - KATHERINE Escalante CNP - 08/30/2024 7:54 PM EDTAssociated Problem(s): Chronic back pain Will treat for acute flareup with short burst of steroids. No red flags [id number] Evaluation + Plan note* Assessment & Plan Note - KATHERINE Escalante CNP - 08/30/2024 7:53 PM EDTAssociated Problem(s): Osteopetrosis Needs to get DEXA completed [facility] [id number] Evaluation + Plan note* Assessment & Plan Note - KATHERINE Escalante CNP - 08/30/2024 7:53 PM EDTAssociated Problem(s): Osteoporosis Needs to get her DEXA scan completed [place] [id number] Evaluation + Plan note* Assessment & Plan Note - KATHERINE Escalante CNP - 08/30/2024 7:53 PM EDTAssociated Problem(s): Insomnia Symptoms well-controlled on Lunesta 3 mg nightly. Continue current medication. OARRS reviewed and consistent with treatment plan [facility] [id number] NoteSymptoms well-controlled on Lunesta 3 mg nightly. Continue current medication. [facility] Evaluation + Plan note* Assessment & Plan Note - KATHERINE Escalante CNP - 08/30/2024 7:53 PM EDTAssociated Problem(s): Unsatisfactory cervical Papanicolaou smear Last Pap smear unsatisfactory. Due to patient's anatomy and scleroderma, provider was unable to usespeculum and did not get a satisfactory she is low risk, no longer sexually active. No history of abnormal Pap smears. She has the option to discontinue her cervical cancer screenings or we can referher to a industrial eng, patient states she will let us know what she decides to do [facility] [id number] History of Present illness Narrative* Korin Mack - 08/30/2024 3:20 PM EDT Patient was identified by name and Date [...] irrigation and no further flushing needed. Charged * KATHERINE Escalante CNP - 08/30/2024 3:20 PM EDT Images from the original note were not included. 08/30/2024 Sue Moncada (: 1970) is a 54 y.o. [...] for 3 days, then take 2 tabs (40mg)daily for 3 days, then take 1 tab [...] anatomy and scleroderma, provider was unable to usespeculum and did not get a satisfactory she is low risk, no longer sexually active. No history of abnormal Pap smears. She has the option to discontinue her cervical cancer screenings or we can referher to a industrial eng, patient states she will let us know what she decides to do 6. Chronic pain syndrome Assessment & Plan: Continue Percocet 5-3 25 every 8 hours as needed for severe pain. OARRS reviewed and consistent with treatment plan. CS MA is in place. Will see if we can find a [place] to better help manage her symptoms. Follow up in about 3 months (around 11/30/2024) for with primary care provider as scheduled. SUBJECTIVE/OBJECTIVE: HPI - Sue Moncada (: 1970) is a 54 y.o. female , Established patient, here for the evaluationof the following chief complaint(s): Medication Check Presents [...] care provider would be able to help manageher symptoms better. Reports right now her right lower back is flared up and has increased pain with movement. Denies any radiation down the legs and no change in bowel or bladder. Current Medications[1] Review of Systems Constitutional: Negative for activity change and fatigue. HENT: Negative. Respiratory: Negative. Gastrointestinal: Positive for constipation (comes and goes). Negative for abdominal pain, blood instool, diarrhea, nausea and vomiting. Genitourinary: Negative for [...] signature was used to authenticate this note. Jeri Trinidad, KATHERINE - DIGITAL MEDIA STRATEGIST 08/30/2024 7:55 PM [1] Current Outpatient Medications [...] mouth daily. 90 capsule 1 nystatin (Mycostatin) 891034 UNIT/GM powder Apply topically 3 times daily. [...] medications for this visit. documented in this [facility]07-16-2025 History of Present illness Narrative* Korin Mack - 08/30/2024 3:20 PM EDT Patient was identified by name and Date [...] irrigation and no further flushing needed. Charged * KATHERINE Escalante CNP - 08/30/2024 3:20 PM EDT Images from the original note were not included. 08/30/2024 Sue Moncada (: 1970) is a 54 y.o. [...] for 3 days, then take 2 tabs (40mg)daily for 3 days, then take 1 tab [...] anatomy and scleroderma, provider was unable to usespeculum and did not get a satisfactory she is low risk, no longer sexually active. No history of abnormal Pap smears. She has the option to discontinue her cervical cancer screenings or we can referher to a industrial eng, patient states she will let us know what she decides to do 6. Chronic pain syndrome Assessment & Plan: Continue Percocet 5-3 25 every 8 hours as needed for severe pain. OARRS reviewed and consistent with treatment plan. MA is in place. Will see if we can find a palliative provider [place] to better help manage her symptoms. 7. Impacted cerumen of left ear Moderate amt of cerumen removed with irrigation. TM intact. Patient tolerated procedure well. Follow up in about 3 months (around 11/30/2024) for with primary care provider as scheduled. SUBJECTIVE/OBJECTIVE: BRADFORD Moncada (: 1970) is a 54 y.o. female , Established patient, here for the evaluationof the following chief complaint(s): Medication Check Presents [...] care provider would be able to help manageher symptoms better. Reports right now her right lower back is flared up and has increased pain with movement. Denies any radiation down the legs and no change in bowel or bladder. Left ear- reports using debrox in it and getting some wax out but still feels like there is some inthere. Right ear is fine Current Medications[1] Review of Systems Constitutional: Negative for activity change and fatigue. HENT: Negative. Respiratory: Negative. Gastrointestinal: Positive for constipation (comes and goes). Negative for abdominal pain, blood instool, diarrhea, nausea and vomiting. Genitourinary: Negative for [...] signature was used to authenticate this note. Jeri Trinidad, REINFORCING METAL WORKER - DIGITAL MEDIA STRATEGIST 09/01/2024 7:41 AM [1] Current Outpatient Medications [...] mouth daily. 90 capsule 1 nystatin (Mycostatin) 243409 UNIT/GM powder Apply topically 3 times daily. [...] medications for this visit. documented in this [facility]06-26-2025 Telephone encounter Note* Telephone Encounter - KATHERINE Escalante CNP - 08/10/2024 1:26 PM EDT Reviewed chart. Refill appropriate. RX sent. [facility] [id number] Miscellaneous Notes* Telephone Encounter - KATHERINE Escalante CNP - 08/10/2024 1:26 PM EDT Reviewed chart. Refill appropriate. RX sent. * Telephone Encounter - Jade Ceballos - 08/10/2024 10:33 AM EDT Images from the original note were not included. Prescription Request: oxyCODONE-acetaminophen (Percocet) 5-325 MG tablet Last medication check: 07/28/23 Last physical exam: 03/14/24 Next scheduled appointment: 08/30/24 CSA on file (date): 06/13/24 Urine drug screen - 05/31/24 Last date of refill on this medication 07/13/24 ( qty 90 refill 0) documented in this [facility]06-26-2025 Telephone encounter Note* Telephone Encounter - Jade Ceballos - 08/10/2024 10:33 AM EDT Images from the original note were not included. Prescription Request: oxyCODONE-acetaminophen (Percocet) 5-325 MG tablet Last medication check: 07/28/23 Last physical exam: 03/14/24 Next scheduled appointment: 08/30/24 CSA on file (date): 06/13/24 Urine drug screen - 05/31/24 Last date of refill on this medication 07/13/24 ( qty 90 refill 0) [facility] [id number] Telephone encounter Note* Telephone Encounter - KATHERINE Escalante CNP - 08/02/2024 8:51 AM EDT Reviewed chart. Refill appropriate. RX sent. [facility] HospitalUbqthl30-52-2013 Miscellaneous Notes* Telephone Encounter - KATHERINE Escalante CNP - 08/02/2024 8:51 AM EDT Reviewed chart. Refill appropriate. RX sent. * Telephone Encounter - Tejal Yousif MA - 08/02/2024 7:10 AM EDT Prescription Request: Last medication check: 08/12/23 Last physical exam: 03/14/24 Next scheduled appointment: 08/30/24 Csa 01/11/24 Uds 05/31/24 Last date of refill on this medication 07/06/2529 and no refill documented in this [facility]SM[facility] HospitalUcnxjn60-83-6557 Telephone encounter Note* Telephone Encounter - KATHERNIE Escalante CNP - 08/02/2024 8:50 AM EDT Reviewed chart. Refill appropriate. RX sent. [facility] HospitalNbtnos15-07-6535 Miscellaneous Notes* Telephone Encounter - KATHERINE Escalante CNP - 08/02/2024 8:50 AM EDT Reviewed chart. Refill appropriate. RX sent. * Telephone Encounter - Jade Ceballos - 08/02/2024 7:27 AM EDT Prescription Request: AMLODIPINE BESYLATE 5 MG TAB Last medication check: 11/03/23 Last physical exam: 03/14/24 Next scheduled appointment: 08/30/24 Last date of refill on this medication 11/03/23 ( Qty 90 refill 1) documented in this encounterSMer[facility] HospitalMwoifj98-63-1978 Telephone encounter Note* Telephone Encounter - Jade Ceballos - 08/02/2024 7:27 AM EDT Prescription Request: AMLODIPINE BESYLATE 5 MG TAB Last medication check: 11/03/23 Last physical exam: 03/14/24 Next scheduled appointment: 08/30/24 Last date of refill on this medication 11/03/23 ( Qty 90 refill 1) [facility] HospitalUilpzj34-45-1738 Telephone encounter Note* Telephone Encounter - Tejal Yousif MA - 08/02/2024 7:10 AM EDT Prescription Request: Last medication check: 08/12/23 Last physical exam: 03/14/24 Next scheduled appointment: 08/30/24 Csa 01/11/24 Uds 05/31/24 Last date of refill on this medication 07/06/2529 and no refill [facility] HospitalTbxhrb23-29-5597 Telephone encounter Note* Telephone Encounter - KATHERINE Escalante CNP - 07/13/2024 1:40 PM EDT Reviewed chart. Refill appropriate. RX sent. [facility] HospitalTgjrvb04-02-4023 Miscellaneous Notes* Telephone Encounter - KATHERINE Escalante CNP - 07/13/2024 1:40 PM EDT Reviewed chart. Refill appropriate. RX sent. * Telephone Encounter - Jade Ceballos - 07/13/2024 1:06 PM EDT Prescription Request: oxyCODONE-acetaminophen (Percocet) 5-325 MG tablet Last medication check: 07/28/23 Last physical exam: 03/14/24 Next scheduled appointment: 08/30/24 CSA on file (date): 06/13/24 Last date of refill on this medication 06/13/24 ( qty 90 refill 0) documented in this [facility]05-29-2025 Telephone encounter Note* Telephone Encounter - Jade Ceballos - 07/13/2024 1:06 PM EDT Prescription Request: oxyCODONE-acetaminophen (Percocet) 5-325 MG tablet Last medication check: 07/28/23 Last physical exam: 03/14/24 Next scheduled appointment: 08/30/24 CSA on file (date): 06/13/24 Last date of refill on this medication 06/13/24 ( qty 90 refill 0) [facility] HospitalMcbvch88-19-0681 NoteReviewed chart. Refill appropriate. Rx sent. Oarrs reviewed and consistent with treatment plan. Csma in [facility]04-29-2025 Telephone encounter Note* Telephone Encounter - KATHERINE Escalante CNP - 06/13/2024 8:28 AM EDT Reviewed chart. Refill appropriate. Rx sent. Oarrs reviewed and consistent with treatment plan. Csma in place [facility] HospitalSedvgf30-05-0377 Miscellaneous Notes* Telephone Encounter - KATHERINE Escalante CNP - 06/13/2024 8:28 AM EDT Reviewed chart. Refill appropriate. Rx sent. Oarrs reviewed and consistent with treatment plan. Csma in place * Telephone Encounter - Jade Ceballos - 06/13/2024 6:59 AM EDT Prescription Request: oxyCODONE-acetaminophen (Percocet) 5-325 MG tablet Last medication check: 05/31/24 Last physical exam: 03/14/24 Next scheduled appointment: 08/30/24 CSA on file (date): 12/10/23 Last date of refill on this medication 05/17/24 ( qty 90 refill 0) documented in this [facility]04-29-2025 Telephone encounter Note* Telephone Encounter - Jade Ceballos - 06/13/2024 6:59 AM EDT Prescription Request: oxyCODONE-acetaminophen (Percocet) 5-325 MG tablet Last medication check: 05/31/24 Last physical exam: 03/14/24 Next scheduled appointment: 08/30/24 CSA on file (date): 12/10/23 Last date of refill on this medication 05/17/24 ( qty 90 refill 0) [facility] [id number] Telephone encounter Note* Telephone Encounter - KATHERINE Escalante CNP - 2024 12:20 PM EDT Reviewed chart. Refill appropriate. RX sent. [facility] [id number] Miscellaneous Notes* Telephone Encounter - KATHERINE Escalante CNP - 2024 12:20 PM EDT Reviewed chart. Refill appropriate. RX sent. * Telephone Encounter - KATHERINE Escalante CNP - 2024 12:19 PM EDT Reviewed chart. Refill appropriate. RX sent. * Telephone Encounter - Elsa Lawrence MA - 2024 10:12 AM EDT CSA - Lunesta 01/11/24 05/31/2024 Drug Screen completed * Telephone Encounter - Marlene Kramer - 2024 10:05 AM EDT Patient is out of medication. Medication name: [...] other doctor or facility: no Ordering provider: Sue Solorzano Date of last office visit: 05/31/24 Date of next office visit: 08/30/24 Date of last refill: (see medication tab): 05/08/24 Updated/Validated preferred pharmacy: Yes Patient instructed to contact the pharmacy prior to picking up the medication: Yes documented in this encounterSMercy [facility] West HospitalBjqomc46-26-2819 Telephone encounter Note* Telephone Encounter - KATHERINE Escalante CNP - 2024 12:19 PM EDT Reviewed chart. Refill appropriate. RX sent. [facility] HospitalNrvwqe69-14-5197 Telephone encounter Note* Telephone Encounter - Elsa Lawrence MA - 2024 10:12 AM EDT CSA - [place] 01/11/24 05/31/2024 Drug Screen completed [place] [id number] Telephone encounter Note* Telephone Encounter - Marlene Kramer - 2024 10:05 AM EDT Patient is out of medication. Medication name: [...] other doctor or facility: no Ordering provider: Sue Solorzano Date of last office visit: 05/31/24 Date of next office visit: 08/30/24 Date of last refill: (see medication tab): 05/08/24 Updated/Validated preferred pharmacy: Yes Patient instructed to contact the pharmacy prior to picking up the medication: Yes [address]npwpo85-89-6195 Evaluation + Plan note* Assessment & Plan Note - KATHERINE Escalante CNP - 05/31/2024 5:02 PM EDTAssociated Problem(s): Insomnia Symptoms well-controlled on Lunesta 3 mg nightly. Continue current medication. [place] [id number] Evaluation + Plan note* Assessment & Plan Note - KATHERINE Escalante CNP - 05/31/2024 5:02 PM EDTAssociated Problem(s): Uncomplicated opioid dependence (HCC) Continue Percocet 5-325 mg every 8 hours as needed for severe pain. OARRS reviewed and consistent with treatment plan JESSE OK is in place [place] [id number] NoteContinue Percocet 5-325 mg every 8 hours as needed for severe pain. OARRS reviewed and consistent with treatment plan JESSE HUDSON is in [facility]04-16-2025 Evaluation + Plan note* Assessment & Plan Note - KATHERINE Escalante CNP - 05/31/2024 5:02 PM EDTAssociated Problem(s): Systemic sclerosis (HCC) Stable. Has been evaluated by Dr. Benson rheumatology. Stable condition no rheumatological interventions indicated [place] [id number] Miscellaneous Notes* Assessment & Plan Note - KATHERINE Escalante CNP - 05/31/2024 5:02 PM EDTAssociated Problem(s): Insomnia Symptoms well-controlled on Lunesta 3 mg nightly. Continue current medication. * Assessment & Plan Note - KATHERINE Escalante CNP - 05/31/2024 5:02 PM EDTAssociated Problem(s): Uncomplicated opioid dependence (HCC) Continue Percocet 5-325 mg every 8 hours as needed for severe pain. OARRS reviewed and consistent with treatment plan EJSSE HUDSON is in place * Assessment & Plan Note - KATHERINE Escalante CNP - 05/31/2024 5:02 PM EDTAssociated Problem(s): Systemic sclerosis (HCC) Stable. Has been evaluated by Dr. Benson rheumatology. Stable condition no rheumatological interventions indicated * Assessment & Plan Note - KATHERINE Escalante CNP - 05/31/2024 4:56 PM EDTAssociated Problem(s): Chronic pain syndrome Continue Percocet 5-3 25 every 8 hours as needed for severe pain. OARRS reviewed and consistent with treatment plan. JESSE HUDSON is in place. * Assessment & Plan Note - KATHERINE Escalante CNP - 05/31/2024 4:56 PM EDTAssociated Problem(s): Hidradenitis No active lesions. Will start topical antibiotic daily to affected areas. documented in this [facility]04-16-2025 Evaluation + Plan note* Assessment & Plan Note - KATHERINE Escalante CNP - 05/31/2024 4:56 PM EDTAssociated Problem(s): Chronic pain syndrome Continue Percocet 5-3 25 every 8 hours as needed for severe pain. OARRS reviewed and consistent with treatment plan. CS MA is in place. [place] [id number] NoteContinue Percocet 5-3 25 every 8 hours as needed for severe pain. OARRS reviewed and consistent with treatment plan. JESSE MA is in place.[facility]04-16-2025 Evaluation + Plan note* Assessment & Plan Note - KATHERINE Escalante CNP - 05/31/2024 4:56 PM EDTAssociated Problem(s): Hidradenitis No active lesions. Will start topical antibiotic daily to affected areas. [facility] [id number] History of Present illness Narrative* Korin Mack - 05/31/2024 3:00 PM EDT Patient was identified by name and Date of . Health Maintenance Due Topic Colorectal Cancer Screening-REFERRAL PRINTED Diabetes Screening-DONE AT [facility] 2-3 MONTHS-WILL FAX YASMEEN Cervical Cancer Screening-TODAY Lung Cancer Screening-PENDED Bone Density Scan-ORDERS ALREADY IN Mammogram-ORDERS ALREADY IN Depression Monitoring-COMPLETED Patient identified by name and date of . Urine drug screen collected. Specimen cup labeled with patient name and date of . Urine cup given to patient, advised patient to not flush toilet orwash hands prior to handing cup out to me. Urine collected from patient. Urine drug screen ordered and signed by provider. Urine Drug screen results entered and were sent to provider. * KATHERINE Escalante CNP - 05/31/2024 3:00 PM EDT Images from the original note were not included. 05/31/2024 Sue Moncada (: 1970) is a 53 y.o. [...] current medication. Follow up for 3 month [facility] [place]. SUBJECTIVE/OBJECTIVE: BRADFORD Moncada (: 1970) is a 53 y.o. female , Established patient, here for the evaluationof the following chief complaint(s): Gynecologic Exam Patient presents for her 3-month med check for chronic pain and for her gynecological exam. She hasalready had her annual physical with fasting labs completed earlier this year. She states she had her labs completed at [facility] and we will need to request those results as they did not sendthem to us. She still needs to schedule her mammography and ultrasound screening for breast cancer. Also her DEXA scan. She reports her chronic pain is poorly controlled. We have continued on her Percocet 5 mg 3 times aday, she uses medical marijuana in the evenings [...] IF... (REFER TO PRESCRIPTION NOTES). nystatin (Mycostatin) [id number] UNIT/GM powder Apply topically 3 times daily. [...] signature was used to authenticate this note. JeriKATHERINE Zimmerman CNP 05/31/2024 5:02 PM documented in this [facility]03-31-2025 Telephone encounter Note* Telephone Encounter - Dallas Glover MA - 05/15/2024 11:44 AM EDT Prescription Request: Last medication check: 03/14/24 Last physical exam: 03/04/23 Next scheduled appointment: 05/31/24 CSA on file (date): 01/12/24 Last urine drug screen: 02/03/23 Last date of refill on this medication 04/17/24 [place] [id number] Miscellaneous Notes* Telephone Encounter - Dallas Glover MA - 05/15/2024 11:44 AM EDT Prescription Request: Last medication check: 03/14/24 Last physical exam: 03/04/23 Next scheduled appointment: 05/31/24 CSA on file (date): 01/12/24 Last urine drug screen: 02/03/23 Last date of refill on this medication 04/17/24 documented in this [facility]03-24-2025 Telephone encounter Note* Telephone Encounter - KATHERINE Escalante CNP - 05/08/2024 12:42 PM EDT Reviewed chart. Refill appropriate. RX sent. [id number] Miscellaneous Notes* Telephone Encounter - KATHERINE Escalante CNP - 05/08/2024 12:42 PM EDT Reviewed chart. Refill appropriate. RX sent. * Telephone Encounter - Elsa Lawrence MA - 05/08/2024 11:30 AM EDT CSA - Lunesta 01/11/24 * Telephone Encounter - Chely Ortega - 05/08/2024 11:17 AM EDT Patient is out. Medication name: eszopiclone (Lunesta) 3 MG tablet [[id number]] Medication dosage: 3 mg (Miligrams Monthly quantity needed: 30 How many day supply requestin days Medication route: oral (PO) Medication administration time(s): bedtime (HS) If taking medication PRN, reason for taking medication: N/A If this is a controlled substance do you receive this or any other controlled medication from any other doctor or facility: No Ordering provider: Dr. Slaughter Date of last office visit: 03.14.24 Date of next office visit: 05.31.24 Date of last refill: (see medication tab): 04.05.24 Updated/Validated preferred pharmacy: Yes [facility]/pharmacy #[id number] [place] [id number] DEAN #: [id number] Patient instructed to contact the pharmacy prior to picking up the medication: Yes documented in this encounterSMercy Health West HospitalOcinhf33-71-4907 Telephone encounter Note* Telephone Encounter - Elsa Lawrence MA - 05/08/2024 11:30 AM EDT CSA - Lunesta 01/11/24 [facility] HospitalAjupre97-67-2680 Telephone encounter Note* Telephone Encounter - Chely Ortega - 05/08/2024 11:17 AM EDT Patient is out. Medication name: eszopiclone (Lunesta) 3 MG tablet [[id number]] Medication dosage: 3 mg (Miligrams Monthly quantity needed: 30 How many day supply requestin days Medication route: oral (PO) Medication administration time(s): bedtime (HS) If taking medication PRN, reason for taking medication: N/A If this is a controlled substance do you receive this or any other controlled medication from any other doctor or facility: No Ordering provider: Dr. Slaughter Date of last office visit: 03.14.24 Date of next office visit: 05.31.24 Date of last refill: (see medication tab): 04.05.24 Updated/Validated preferred pharmacy: Yes [facility]/pharmacy #[id number] [place] [id number] DEAN #: [id number] Patient instructed to contact the pharmacy prior to picking up the medication: Yes [facility] HospitalDcppab54-81-0037 Telephone encounter Note* Telephone Encounter - KATHERINE Escalante CNP - 04/27/2024 5:06 PM EDT Noted. Agree with disposition. [facility] HospitalKjxgou41-03-3378 Miscellaneous Notes* Telephone Encounter - KATHERINE Escalante CNP - 04/27/2024 5:06 PM EDT Noted. Agree with disposition. * Telephone Encounter - Jazzmine Boone RN - 04/27/2024 3:58 PM EDT S: Patient spoke with [facility] nurse regarding [...] at this time. Patient instructed to call backwith new or worsening symptoms. Reason for Disposition Spreading redness around the boil and no fever Protocols used: Boil (Skin Abscess)-ADULT-[place] documented in this encounterSMercy Health West HospitalOojtjv23-92-7172 Telephone encounter Note* Telephone Encounter - Jazzmine Boone RN - 04/27/2024 3:58 PM EDT S: Patient spoke with CAC nurse regarding [...] at this time. Patient instructed to call backwith new or worsening symptoms. Reason for Disposition Spreading redness around the boil and no fever Protocols used: Boil (Skin Abscess)-ADULT-[place] [facility] [id number] Telephone encounter Note* Telephone Encounter - Jeri Trinidad APRN - GARRISON - 04/14/2024 8:56 AM EST Reviewed chart. Refill appropriate. RX sent. [facility] HospitalAyggag45-50-9227 Miscellaneous Notes* Telephone Encounter - KATHERINE Escalante CNP - 04/14/2024 8:56 AM EST Reviewed chart. Refill appropriate. RX sent. * Telephone Encounter - Zee Richardson MA - 04/14/2024 7:17 AM EST Prescription Request: Last medication check: 01-11-24 Last physical exam: 03-14-24 Next scheduled appointment: 04-10-24 Last date of refill on this medication 12/23/23 documented in this encounterSMercy Health West HospitalXwelfe04-75-2269 Telephone encounter Note* Telephone Encounter - Zee Richardson MA - 04/14/2024 7:17 AM EST Prescription Request: Last medication check: 01-11-24 Last physical exam: 03-14-24 Next scheduled appointment: 04-10-24 Last date of refill on this medication 12/23/23 [facility] HospitalRadfhl42-47-2751 NoteOARRS reviewed and consistent with treatment plan. First fill April 17, 2024. Rx [facility]02-25-2025 Telephone encounter Note* Telephone Encounter - KATHERINE Escalante CNP - 04/11/2024 5:38 PM EST OARRS reviewed and consistent with treatment plan. First fill April 17, 2024. Rx sent [facility] HospitalKswabb65-80-2580 Miscellaneous Notes* Telephone Encounter - KATHERINE Escalante CNP - 04/11/2024 5:38 PM EST OARRS reviewed and consistent with treatment plan. First fill April 17, 2024. Rx sent * Telephone Encounter - Zee Richardson MA - 04/10/2024 3:17 PM EST CSA 12/09/23 * Telephone Encounter - Maia Padilla - 04/10/2024 2:46 PM EST Medication name: oxyCODONE-acetaminophen (Percocet) 5-325 MG tablet [...] other doctor or facility: No Ordering provider: Jeri Trinidad Date of last office visit: 03.14.24 Date of next office visit: 05.31.24 Date of last refill: (see medication tab): 03.18.24 Updated/Validated preferred pharmacy: Yes Patient instructed to contact the pharmacy prior to picking up the medication: No documented in this encounterSMercy Health West HospitalYocxux06-62-3250 Telephone encounter Note* Telephone Encounter - Zee Richardson MA - 04/10/2024 3:17 PM EST [facility] 12/09/23 [facility] HospitalPluzzo69-59-9513 Telephone encounter Note* Telephone Encounter - Maia Padilla - 04/10/2024 2:46 PM EST Medication name: oxyCODONE-acetaminophen (Percocet) 5-325 MG tablet [...] other doctor or facility: No Ordering provider: Jeri Trinidad Date of last office visit: 03.14.24 Date of next office visit: 05.31.24 Date of last refill: (see medication tab): 2 Updated/Validated preferred pharmacy: Yes Patient instructed to contact the pharmacy prior to picking up the medication: No [facility] HospitalAqbobr85-36-8800 Telephone encounter Note* Telephone Encounter - KATHERINE Escalante CNP - 04/05/2024 2:47 PM EST Reviewed chart. Refill appropriate. RX sent. [facility] HospitalMeddjh30-96-4699 Miscellaneous Notes* Telephone Encounter - KATHERINE Escalante CNP - 04/05/2024 2:47 PM EST Reviewed chart. Refill appropriate. RX sent. * Telephone Encounter - Theresa Vega - 04/05/2024 2:43 PM EST Prescription Request: Last medication check: 01-11-24 Last physical exam: 03-14-24 Next scheduled appointment: 04-10-24 CSA on file (date): 01-11-24 Last urine drug screen: 02-03-23 Last date of refill on this medication 03-04-24 documented in this encounterSMercy Health West HospitalGchyxm02-50-1546 Telephone encounter Note* Telephone Encounter - Theresa Vega - 04/05/2024 2:43 PM EST Prescription Request: Last medication check: 01-11-24 Last physical exam: 03-14-24 Next scheduled appointment: 04-10-24 CSA on file (date): 01-11-24 Last urine drug screen: 02-03-23 Last date of refill on this medication 03-04-24 [facility] HospitalPxqdxk52-62-1117 Telephone encounter Note* Telephone Encounter - KATHERINE Escalante CNP - 04/04/2024 12:14 PM EST Reviewed chart. Refill appropriate. RX sent. [facility] HospitalHefsku26-44-0401 Miscellaneous Notes* Telephone Encounter - KATHERINE Escalante CNP - 04/04/2024 12:14 PM EST Reviewed chart. Refill appropriate. RX sent. * Telephone Encounter - Zee Richardson MA - 04/04/2024 10:46 AM EST Prescription Request: Last medication check: 01/11/24 Last physical exam: 03/14/24 Next scheduled appointment: 04/10/24 Last date of refill on this medication: 09/08/23 documented in this [facility]02-18-2025 Telephone encounter Note* Telephone Encounter - Zee Richardson MA - 04/04/2024 10:46 AM EST Prescription Request: Last medication check: 01/11/24 Last physical exam: 03/14/24 Next scheduled appointment: 04/10/24 Last date of refill on this medication: 09/08/23 [facility] HospitalMgzpez00-33-6505 Note. MICRO - Microbiology PROCEDURE: Urine Culture [O1 [...] Locations *1: This test was performed at: [facility], [address] [place] [address], [id number] , [facility]02-14-2025 Evaluation + Plan note Diagnostic Tests Pending * Urine Culture 03/31/24 [facility] 02-06-2025 Telephone encounter Note* Telephone Encounter - Lupis Puga RN - 03/23/2024 12:51 PM EST (2nd attempt) Called today to schedule screening colonoscopy (surveillance program) Left message to call the screening program at [phone] 1st attempt my chart message sent. [facility] HospitalVhwpjp36-44-0762 Miscellaneous Notes* Telephone Encounter - Lupis Puga RN - 03/23/2024 12:51 PM EST (2nd attempt) Called today to schedule screening colonoscopy (surveillance program) Left message to call the screening program at [phone] 1st attempt my chart message sent. * Telephone Encounter - Lupis Puga RN - 03/17/2024 8:21 AM EST MyChart message sent to have patient call screening program if still interested in scheduling a screening colonoscopy. documented in this encounterSMercy Health West HospitalDgnfyu81-52-9528 Telephone encounter Note* Telephone Encounter - uLpis Puga RN - 03/17/2024 8:21 AM EST [employer] message sent to have patient call screening program if still interested in scheduling a screening colonoscopy. [facility] HospitalInplbh92-26-5584 Evaluation + Plan note* Assessment & Plan Note - KATHERINE Escalante CNP - 03/14/2024 5:21 PM ESTAssociated Problem(s): Irritable bowel syndrome Stable. Referral made to gastroenterology, patient due for colon cancer screening [facility] HospitalJigwxh20-62-2124 NoteStable. Referral made to gastroenterology, [facility] Evaluation + Plan note* Assessment & Plan Note - KATHERINE Escalante CNP - 03/14/2024 5:21 PM ESTAssociated Problem(s): Insomnia Symptoms well-controlled on Lunesta 3 mg nightly. Continue current medication. [facility] HospitalIrymku41-45-5094 Miscellaneous Notes* Assessment & Plan Note - KATHERINE Escalante CNP - 03/14/2024 5:21 PM ESTAssociated Problem(s): Irritable bowel syndrome Stable. Referral made to gastroenterology, patient due for colon cancer screening * Assessment & Plan Note - KATHERINE Escalante CNP - 03/14/2024 5:21 PM ESTAssociated Problem(s): Insomnia Symptoms well-controlled on Lunesta 3 mg nightly. Continue current medication. * Assessment & Plan Note - KATHERINE Escalante CNP - 03/14/2024 5:19 PM ESTAssociated Problem(s): Linear scleroderma Condition stable. * Assessment & Plan Note - KATHERINE Escalante CNP - 03/14/2024 5:19 PM ESTAssociated Problem(s): Chronic back pain Stable. Continue current medications. * Assessment & Plan Note - KATHERINE Escalante CNP - 03/14/2024 5:18 PM ESTAssociated Problem(s): Osteopetrosis Obtain labs previously ordered by osteoporosis clinic * Assessment & Plan Note - KATHERINE Escalante CNP - 03/14/2024 5:18 PM ESTAssociated Problem(s): Hypercholesterolemia Controlled. Continue atorvastatin 20 mg nightly * Assessment & Plan Note - KATHERINE Escalante CNP - 03/14/2024 5:18 PM ESTAssociated Problem(s): Hypertension Controlled. Blood pressure 133/79. Continue amlodipine 5 mg daily * Assessment & Plan Note - KATHERINE Escalante CNP - 03/14/2024 5:18 PM ESTAssociated Problem(s): Systemic sclerosis (HCC) Stable. Has been evaluated by Dr. Benson rheumatology. Stable condition no rheumatological interventions indicated * Assessment & Plan Note - KATHERINE Escalante CNP - 03/14/2024 5:17 PM ESTAssociated Problem(s): Vitamin D deficiency History of vitamin D deficiency, check vitamin D level * Assessment & Plan Note - KATHERINE Escalante CNP - 03/14/2024 5:17 PM ESTAssociated Problem(s): Chronic pain syndrome Continue Percocet 5-3 25 every 8 hours as needed for severe pain. OARRS reviewed and consistent with treatment plan. JESSE MA is in place. Patient is currently trying to get established with [facility] pain management and is waiting for their reply after sending in their forms about 3 weeks ago. * Assessment & Plan Note - KATHERINE Escalante CNP - 03/14/2024 5:16 PM ESTAssociated Problem(s): Uncomplicated opioid dependence (HCC) Continue Percocet 5-325 mg every 8 hours as needed for severe pain. OARRS reviewed and consistent with treatment plan JESSE HUDSON is in place * Assessment & Plan Note - KATHERINE Escalante CNP - 03/14/2024 5:16 PM ESTAssociated Problem(s): Abnormal mammography Due to her linear scleroderma, needs to have ultrasound of the left breast for breast cancer screening. documented in this [facility]01-28-2025 Evaluation + Plan note* Assessment & Plan Note - KATHERINE Escalante CNP - 03/14/2024 5:19 PM ESTAssociated Problem(s): Linear scleroderma Condition stable. [facility] HospitalIuiite47-72-7722 Evaluation + Plan note* Assessment & Plan Note - KATHERINE Escalante CNP - 03/14/2024 5:19 PM ESTAssociated Problem(s): Chronic back pain Stable. Continue current medications. [facility] HospitalTcftyc47-20-7685 Evaluation + Plan note* Assessment & Plan Note - KATHERINE Escalante CNP - 03/14/2024 5:18 PM ESTAssociated Problem(s): Osteopetrosis Obtain labs previously ordered by osteoporosis clinic [facility] HospitalQchkse00-70-5063 Evaluation + Plan note* Assessment & Plan Note - KATHERINE Escalante CNP - 03/14/2024 5:18 PM ESTAssociated Problem(s): Hypercholesterolemia Controlled. Continue atorvastatin 20 mg nightly [facility] HospitalQsexsn71-14-6652 Evaluation + Plan note* Assessment & Plan Note - KATHERINE Escalante CNP - 03/14/2024 5:18 PM ESTAssociated Problem(s): Hypertension Controlled. Blood pressure 133/79. Continue amlodipine [address] [facility]01-28-2025 Evaluation + Plan note* Assessment & Plan Note - KATHERINE Escalante CNP - 03/14/2024 5:18 PM ESTAssociated Problem(s): Systemic sclerosis (HCC) Stable. Has been evaluated by Dr. Benson rheumatology. Stable condition no rheumatological interventions indicated [facility]01-28-2025 Evaluation + Plan note* Assessment & Plan Note - KATHERINE Escalante CNP - 03/14/2024 5:17 PM ESTAssociated Problem(s): Vitamin D deficiency History of vitamin D deficiency, check vitamin D level [facility]01-28-2025 Evaluation + Plan note* Assessment & Plan Note - KATHERINE Escalante CNP - 03/14/2024 5:17 PM ESTAssociated Problem(s): Chronic pain syndrome Continue Percocet 5-3 25 every 8 hours as needed for severe pain. OARRS reviewed and consistent with treatment plan. JESSE MA is in place. Patient is currently trying to get established with [facility] pain management and is waiting for their reply after sending in their forms about [address] [facility]01-28-2025 Evaluation + Plan note* Assessment & Plan Note - KATHERINE Escalante CNP - 03/14/2024 5:16 PM ESTAssociated Problem(s): Uncomplicated opioid dependence (HCC) Continue Percocet 5-325 mg every 8 hours as needed for severe pain. OARRS reviewed and consistent with treatment plan JESSE MA is in place [facility] HospitalIpfuat11-48-1407 NoteContinue Percocet 5-325 mg every 8 hours as needed for severe pain. OARRS reviewed and consistent with treatment plan CS TRISTAN is in [facility]01-28-2025 Evaluation + Plan note* Assessment & Plan Note - KATHERINE Escalante CNP - 03/14/2024 5:16 PM ESTAssociated Problem(s): Abnormal mammography Due to her linear scleroderma, needs to have ultrasound of the left breast for breast cancer screening. [facility] HospitalXwtbij70-91-5164 History of Present illness Narrative* Korin Mack - 03/14/2024 2:40 PM EST Patient was identified by name and Date [...] EXP 01/02/2025 Medicare Annual Wellness (AWV) -today [facility] NEED TO FAX ALL ORDERS OVER WANTS DONE THERE. FAX # TO SEND ORDERS TO IS [phone] 1.) Call Gastroenterology to schedule appointment--they will get you scheduled for a colonoscopy. 2.) Orders will all be faxed to [facility] you will need to call them to schedule [phone] ----Mammogram,Lung CT, DEXA Scan/Bone Density--- 3.) Any [...] by Korin Mack MA in right dorsogluteal. * Jeri Trinidad, REINFORCING METAL WORKER - DIGITAL MEDIA STRATEGIST - 03/14/2024 2:40 PM EST Images from the original note were not included. [address] [address] Dept: [phone] Dept Chief Complaint: Sue Moncada is an 53 y.o. female here [...] plan. MA is in place. Patient is currently trying to get established with [facility] pain management and is waiting for [...] - Primary Colon cancer screening Relevant Orders [facility] Screening for deficiency anemia Relevant Orders [...] IF... (REFER TO PRESCRIPTION NOTES). nystatin (Mycostatin) 064451 UNIT/GM powder Apply topically 3 times daily. 60 g 1 [START ON 03/18/2024] oxyCODONE-acetaminophen (Percocet) 5-325 MG tablet Take 1 tablet by mouth every8 hours as needed for severe pain (7-10). [...] is arthritic in the right hip lower backand shoulder. Patient states she did reach out to [facility] pain management and sent the information they needed to them about 3 weeks ago and is waiting for them to call to schedule. They wererecommended by the rod puller Dr. Benson. Last visit we gave her a Kenalog injection which she says helped quite a bit with her back pain andis requesting another injection today. She uses the tizanidine 4 mg at bedtime as needed for muscle spasms. Insomnia-reports sleep is good with Lunesta 3 mg nightly. Did not tolerate adjustment in dosing. Osteopetrosis-patient was seen by osteoporosis clinic last year and needs to get some labs done forfurther evaluation. IBS-patient has waxing waning constipation diarrhea. Is due for her colonoscopy. Hyperlipidemia-due for cholesterol levels checked. Is taking atorvastatin 20 mg nightly, denies anyadverse effects of the medication. Breast cancer screening-last [...] of current healthcare providers: Patient Care Team: Jose D Slaughter MD as PCP - General (Family Medicine) [...] week. Her mom is staying in a alf facility and her dad is at home. [...] Stability: High Risk (11/24/2022) documented in this [facility]01-28-2025 Instructions* Patient Instructions* KATHERINE Escalante CNP - 03/14/2024 2:40 PM EST [facility] NEED TO FAX ALL ORDERS OVER WANTS DONE THERE. FAX # TO SEND ORDERS TO IS [phone] 1.) Call Gastroenterology to schedule appointment at [phone] they will get you scheduled for acolonoscopy. 2.) Orders will all be faxed to [facility] you will need to call them to schedule [phone] ----Mammogram,Lung CT, DEXA Scan/Bone Density--- 3.) Any vaccines, you will need to have completed at the health Dept. 4.) Schedule for Well Female exam. Personalized Preventative Plan for Sue Moncada - 03/14/2024 Medicare offers a range of preventative health benefits. Some of the tests and screenings are paid in full while others may be subject to a deductible, co- insurance, and / or copay. Some of these benefits include a comprehensive review of your medical history including lifestyle, illnesses that mayrun in your family, and various assessments and [...] Recommendations: A preventive eye exam by an eye technician is recommended every 1-2 years to screen for glaucoma, cataracts, macular degeneration, and other eye disorders. A preventive dental visit is recommended every 6 months. Try to get at least 150 minutes of exercise per week or 10,000 steps per day on a pedometer. You need 1200-1500mg of calcium and 5101-4890 international units of vitamin D per day. [...] bicycle or a motorcycle documented in this encounterSMercy Health West HospitalJprpwk89-06-9828 Telephone encounter Note* Telephone Encounter - Zee Richardson MA - 03/02/2024 1:25 PM EST [facility] 01/11/24 [facility] HospitalYzeklc22-96-9152 Miscellaneous Notes* Telephone Encounter - Zee Richardson MA - 03/02/2024 1:25 PM EST CSA 01/11/24 * Telephone Encounter - Sera Owen - 03/02/2024 12:50 PM EST Ordering provider: Dr. Slaughter Date of last office visit: 01/11/2024 Date [...] (see medication tab): 02/03/2024 documented in this [facility]01-16-2025 Telephone encounter Note* Telephone Encounter - Sera Owen - 03/02/2024 12:50 PM EST Ordering provider: Dr. Slaughter Date of last office visit: 01/11/2024 Date [...] of last refill (see medication tab): 02/03/2024 [facility] Plrnqi73-29-4269 Telephone encounter Note* Telephone Encounter - Jeri Wilson - 02/28/2024 1:14 PM EST Orders cancelled [facility] HospitalXgqcmx89-96-9644 Miscellaneous Notes* Telephone Encounter - Jeri Wilson - 02/28/2024 1:14 PM EST Orders cancelled * Telephone Encounter - KATHERINE Escalante CNP - 02/28/2024 12:55 PM EST Ok to cancel * Telephone Encounter - Jeri Wilson - 02/28/2024 11:08 AM EST As of today, 02/28/24, pt has not scheduled for a CT-Lung Screen. Okay to cancel orders as they willclose on 03/04/24 due to being . * Telephone Encounter - Jeri Wilson - 10/13/2023 10:34 AM EDT Noted * Telephone Encounter - KATHERINE Escalante CNP - 10/12/2023 12:54 PM EDT Please keep it open. Patient said she was planning on rescheduling it when I talked to her last. * Telephone Encounter - Jeri Wilson - 10/12/2023 11:16 AM EDT Pt given orders for CT-Lung Screen on 03/04/23. Pt sched for 06/29/23 and NC/NS to appt. No follow upscheduled at this time. Okay to cancel orders? documented in this encounterSMercy Health West HospitalGyyzrd07-13-3632 Telephone encounter Note* Telephone Encounter - KATHERINE Escalante CNP - 02/28/2024 12:55 PM EST Ok to cancel [facility] Jjyleu43-20-1119 Telephone encounter Note* Telephone Encounter - Jeri Wilson - 02/28/2024 11:08 AM EST As of today, 02/28/24, pt has not scheduled for a CT-Lung Screen. Okay to cancel orders as they willclose on 03/04/24 due to being . [facility] HospitalQhinbi91-62-3040 Telephone encounter Note* Telephone Encounter - Elsa Lawrence MA - 02/17/2024 9:59 AM EST 12/09/23 rfp Percocet CSA - 12/07/2024 [facility] HospitalGzbypw12-37-5699 Miscellaneous Notes* Telephone Encounter - Elsa Lawrence MA - 02/17/2024 9:59 AM EST 12/09/23 rfp Percocet CSA - 12/07/2024 * Telephone Encounter - Margarita Cassidy - 02/17/2024 9:35 AM EST Medication name: The patient does not have an appointment with pain management. She mailed the paperwork to them on 02-14-2024. She is waiting to here from them after they receive her records from her previous pain management. The patient will be out of medication on Wednesday evening 9002/18/2024). The patient is requesting a call back about the below medication. Please advise. oxyCODONE-acetaminophen (Percocet) 5-325 MG tablet - Take 1 tablet by mouth every 8 hours as neededfor severe pain (7-10) for up to 10 [...] doctor or facility: No Ordering provider: Dr. Slaughter Date of last office visit: 01-11-2024 Date of next office visit: 03-02-2024 Date of last refill: (see medication tab): 02-03-2024 Updated/Validated preferred pharmacy: Yes Patient instructed to contact the pharmacy prior to picking up the medication: Yes documented in this [facility]01-02-2025 Telephone encounter Note* Telephone Encounter - Margarita Cassidy - 02/17/2024 9:35 AM EST Medication name: The patient does not have an appointment with pain management. She mailed the paperwork to them on 02-14-2024. She is waiting to here from them after they receive her records from her previous pain management. The patient will be out of medication on Wednesday evening 9002/18/2024). The patient is requesting a call back about the below medication. Please advise. oxyCODONE-acetaminophen (Percocet) 5-325 MG tablet - Take 1 tablet by mouth every 8 hours as neededfor severe pain (7-10) for up to 10 [...] doctor or facility: No Ordering provider: Dr. Slaughter Date of last office visit: 01-11-2024 Date of next office visit: 03-02-2024 Date of last refill: (see medication tab): 02-03-2024 Updated/Validated preferred pharmacy: Yes Patient instructed to contact the pharmacy prior to picking up the medication: Yes [email or web address] Telephone encounter Note* Telephone Encounter - Tejal Yousif MA - 02/07/2024 3:23 PM EST Prescription Request: Last medication check: 01/11/24 Last physical exam: 03/04/23 Next scheduled appointment: 03/02/24 Last date of refill on this medication 12/30/23 30 tablets 1 refill [email or web address] Miscellaneous Notes* Telephone Encounter - Tejal Yousif MA - 02/07/2024 3:23 PM EST Prescription Request: Last medication check: 01/11/24 Last physical exam: 03/04/23 Next scheduled appointment: 03/02/24 Last date of refill on this medication 12/30/23 30 tablets 1 refill documented in this [facility]11-26-2024 Evaluation + Plan note* Assessment & Plan Note - KATHERINE Escalante CNP - 01/11/2024 6:42 PM ESTAssociated Problem(s): Yeast dermatitis Within the breast folds. Keep area clean and dry and apply nystatin twice daily until clears. Follow-up for worsening or failure for symptoms to improve [facility] HospitalNbgqpp64-43-9050 Miscellaneous Notes* Assessment & Plan Note - KATHERINE Escalante CNP - 01/11/2024 6:42 PM ESTAssociated Problem(s): Yeast dermatitis Within the breast folds. Keep area clean and dry and apply nystatin twice daily until clears. Follow-up for worsening or failure for symptoms to improve * Assessment & Plan Note - KATHERINE Escalante CNP - 01/11/2024 6:41 PM ESTAssociated Problem(s): Mass on back MRI showing soft tissue thickening without other concerning findings. Continue to monitor * Assessment & Plan Note - KATHERINE Escalante CNP - 01/11/2024 6:39 PM ESTAssociated Problem(s): Chronic pain syndrome Continue Percocet 5-3 25 every 8 hours as needed for severe pain. OARRS reviewed and consistent with treatment plan. JESSE HUDSON is in place. Patient is to reach out to rod puller to see what pain management doctor was recommended. * Assessment & Plan Note - KATHERINE Escalante CNP - 01/11/2024 6:39 PM ESTAssociated Problem(s): Bulging lumbar disc Patient did not have significant improvement with physical therapy. We will give Kenalog injection IM to see if this helps with her pain. documented in this [facility]11-26-2024 Evaluation + Plan note* Assessment & Plan Note - KATHERINE Escalante CNP - 01/11/2024 6:41 PM ESTAssociated Problem(s): Mass on back MRI showing soft tissue thickening without other concerning findings. Continue to monitor [facility] [id number] Evaluation + Plan note* Assessment & Plan Note - KATHERINE Escalante CNP - 01/11/2024 6:39 PM ESTAssociated Problem(s): Chronic pain syndrome Continue Percocet 5-3 25 every 8 hours as needed for severe pain. OARRS reviewed and consistent with treatment plan. CS MA is in place. Patient is to reach out to rod puller to see what pain management doctor was recommended. [facility] [id number] NoteContinue Percocet 5-3 25 every 8 hours as needed for severe pain. OARRS reviewed and consistent with treatment plan. CS MA is in place. Patient is to reach out to rod puller to see what pain management doctor was recommended. [facility]11-26-2024 Evaluation + Plan note* Assessment & Plan Note - KATHERINE Escalante CNP - 01/11/2024 6:39 PM ESTAssociated Problem(s): Bulging lumbar disc Patient did not have significant improvement with physical therapy. We will give Kenalog injection IM to see if this helps with her pain. [facility] [id number] History of Present illness Narrative* Korin Mack - 01/11/2024 3:20 PM EST Patient was identified by name and Date of . * KATHERINE Escalante CNP - 01/11/2024 3:20 PM EST Images from the original note were not included. 01/11/2024 Sue Moncada (: 1970) is a 53 y.o. female , Established patient, here for evaluation of the following chief complaint(s): Follow-up ASSESSMENT/PLAN: 1. Chronic pain syndrome Assessment & Plan: Continue Percocet 5-3 25 every 8 hours as needed for severe pain. OARRS reviewed and consistent with treatment plan. MA is in place. Patient is to reach out to rod puller to see what pain management doctor was [...] symptoms to improve Orders: - nystatin (Mycostatin) 668078 UNIT/GM powder; Apply topically 3 times daily., Starting Wed01/11/2024, Until Wed01/10/2025, Normal 4. Chronic right-sided low back pain without sciatica - triamcinolone acetonide (Kenalog-40) injection 80 mg; 80 mg, IntraMUSCular, Once, On Tu01/11/24at 1600, For 1 dose 5. Mass on back Assessment & Plan: MRI showing soft tissue thickening without other concerning findings. Continue to monitor Follow up for 3 month galileo. SUBJECTIVE/OBJECTIVE: BRADFORD Moncada (: 1970) is a 53 y.o. female , Established patient, here for the evaluationof the following chief complaint(s): Follow-up Presents for follow-up chronic pain. Has been seen by rod puller-Dr. Benson. Lumber Grader did recommend a specific automotive painter helper but we are unsure of whom the recommendation was for. Currently she is taking Percocet 5 mg every 8 hours. Tizanidine 4 mg, amitriptyline 50 mg at bedtime. She has not tolerated pain injections in the past other than steroid injection in the right shoulder and occasional trigger point injection. She does use medical marijuana at night and sometimeson the weekends to help with her IBS [...] hospice. 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 She is requesting an increase of her Percocet. Patient was advised that I am unable to increase herpain medication and that we need to get her to a automotive painter helper that we will manage herpain for her. We did try to wean [...] (50 mg) by mouth Nightly. 12/23/23 Yes Jeri Bridenthal, REINFORCING METAL WORKER - DIGITAL MEDIA STRATEGIST amLODIPine (Norvasc) 5 MG tablet Take 1 [...] Take immediately before bedtime 01/07/24 02/06/24 Yes Jose D Slaughter MD naloxone (Narcan) 4 mg/0.1 mL nasal spray ADMINISTER A SINGLE spray INTO ONE NOSTRIL repeat in 3 MINUTES IF... (REFER TO PRESCRIPTION NOTES). 03/04/23 Yes Historical Provider, oxyCODONE-acetaminophen (Percocet) 5-325 MG tablet Take 1 tablet by mouth every 8 hours as needed for severe pain (7-10). Do not start before January 08, 2024. 01/08/24 02/07/24 Yes KATHERINE Escalante CNP tiZANidine (Zanaflex) 4 MG tablet take 2 tablets by mouth at bedtime if needed 12/30/23 Yes KATHERINE Arguelles - GARRISON eszopiclone (Lunesta) 3 MG tablet Take 1 tablet (3 mg) by mouth Nightly as needed for sleep. Take immediately before bedtime 11/27/23 01/07/24 JeriKATHERINE Gresham CNP Review of Systems Constitutional: Negative. [...] CNP 01/11/2024 6:43 PM documented in this [facility]11-26-2024 Instructions* Patient Instructions* KATHERINE Escalante CNP - 01/11/2024 3:20 PM EST Please reach out to Dr. Benson to see what automotive painter helper it was that she recommended for you. [phone] documented in this [facility]11-07-2024 Telephone encounter Note* Telephone Encounter - KATHERINE Escalante CNP - 12/23/2023 7:12 AM EST Reviewed chart. Refill appropriate. RX sent. [facility] [id number] Miscellaneous Notes* Telephone Encounter - KATHERINE Escalante CNP - 12/23/2023 7:12 AM EST Reviewed chart. Refill appropriate. RX sent. * Telephone Encounter - Tejal Yousif MA - 12/23/2023 7:07 AM EST Prescription Request: Last medication check: 12/09/23 Last physical exam: 03/04/23 Next scheduled appointment: 01/11/24 Last date of refill on this medication 06/24/23 90 day 1 refill documented in this [facility]11-07-2024 Telephone encounter Note* Telephone Encounter - Tejal Yousif MA - 12/23/2023 7:07 AM EST Prescription Request: Last medication check: 12/09/23 Last physical exam: 03/04/23 Next scheduled appointment: 01/11/24 Last date of refill on this medication 06/24/23 90 day 1 refill [id number] Telephone encounter Note* Telephone Encounter - Korin Mack - 12/14/2023 12:21 PM EDT Last office visit note and summary faxed to number provided. [facility] [id number] Miscellaneous Notes* Telephone Encounter - Korin Mack - 12/14/2023 12:21 PM EDT Last office visit note and summary faxed to number provided. * Telephone Encounter - KATHERINE Escalante CNP - 12/14/2023 12:15 PM EDT Called and spoke with Dr. Benson, rheumatology who will be seeing patient later today to establish. Discussed plan of care and concerns regarding patient's pain management. Would like Dr. 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 Also if any rheumatologic medications would be helpful for her. Adelita most recent OV note. documented in this encounterSMercy Health West [id number] Telephone encounter Note* Telephone Encounter - KATHERINE Escalante CNP - 12/14/2023 12:15 PM EDT Called and spoke with Dr. Benson, rheumatology who will be seeing patient later today to establish. Discussed plan of care and concerns regarding patient's pain management. Would like Dr. 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 Also if any rheumatologic medications would be helpful for her. Willjennifer most recent OV note. [facility] [id number] Evaluation + Plan note* Assessment & Plan Note - KATHERINE Escalante CNP - 12/09/2023 5:37 PM EDTAssociated Problem(s): Hypertension Initial blood pressure elevated, repeat blood pressure good 119/77. Continue amlodipine 5 mg daily.Remember to bring home blood pressure cuff to the next office visit [facility] [id number] Miscellaneous Notes* Assessment & Plan Note - KATHERINE Escalante CNP - 12/09/2023 5:37 PM EDTAssociated Problem(s): Hypertension Initial blood pressure elevated, repeat blood pressure good 119/77. Continue amlodipine 5 mg daily.Remember to bring home blood pressure cuff to the next office visit * Assessment & Plan Note - KATHERINE Escalante CNP - 12/09/2023 5:35 PM EDTAssociated Problem(s): Chronic pain syndrome Patient was unable [...] an appointment with rheumatology next week. Hopeful thatrheumatologist will have some recommendations for pain management. At this time we will continue current dose of Percocet 5 mg every 8 hours as needed for pain, OARRS reviewed and consistent with treatment plan. CS MA is in place * Assessment & Plan Note - KATHERINE Escalante CNP - 12/09/2023 5:32 PM EDTAssociated Problem(s): Arthritis Severe. Pain poorly managed * Assessment & Plan Note - KATHERINE Escalante CNP - 12/09/2023 5:31 PM EDTAssociated Problem(s): Linear scleroderma Patient reports she has an appointment on the to establish care with Dr. Benson rheumatology.Provider will try to reach out to Dr. Benson prior to her appointment to discuss patient's plan ofcare documented in this [facility]10-24-2024 Evaluation + Plan note* Assessment & Plan Note - KATHERINE Escalante CNP - 12/09/2023 5:35 PM EDTAssociated Problem(s): Chronic pain syndrome Patient was unable [...] an appointment with rheumatology next week. Hopeful thatrheumatologist will have some recommendations for pain management. At this time we will continue current dose of Percocet 5 mg every 8 hours as needed for pain, OARRS reviewed and consistent with treatment plan. CS MA is in place [facility] [id number] Evaluation + Plan note* Assessment & Plan Note - KATHERINE Escalante CNP - 12/09/2023 5:32 PM EDTAssociated Problem(s): Arthritis Severe. Pain poorly managed [facility] [id number] Evaluation + Plan note* Assessment & Plan Note - KATHERINE Escalante CNP - 12/09/2023 5:31 PM EDTAssociated Problem(s): Linear scleroderma Patient reports she has an appointment on the to establish care with Dr. Benson rheumatology.Provider will try to reach out to Dr. Benson prior to her appointment to discuss patient's plan ofcare [facility] [id number] History of Present illness Narrative* Korin Mack - 12/09/2023 1:00 PM EDT Patient was identified by name and Date of . Patient was identified by name and Date Of . After obtaining informed consent, Immunization(s)were ordered by provider. The patient and or [...] Immunization(s) was given by Korin Mack MA. * KATHERINE Escalante CNP - 12/09/2023 1:00 PM EDT Images from the original note were not included. 12/09/2023 Sue Moncada (: 1970) is a 53 y.o. [...] an appointment with rheumatology next week. Hopeful thatrheumatologist will have some recommendations for pain management. [...] the to establish care with Dr. Benson rheumatology.Provider will try to reach out to Dr. Benson prior to her appointment to discuss patient's plan ofcare 5. Primary hypertension Assessment & Plan: Initial blood pressure elevated, repeat blood pressure good 119/77. Continue amlodipine 5 mg daily.Remember to bring home blood pressure cuff to the next office visit Follow up in about 3 months (around 03/10/2024) for 3 month medcheck. SUBJECTIVE/OBJECTIVE: BRADFORD Moncada (: 1970) is a 53 y.o. female , Established patient, here for the evaluationof the following chief complaint(s): Follow-up Patient presents [...] participated in physical therapy multiple times. She mostrecently was remeasured for her lift on her left foot and is waiting to have enough money to get a new shoe, as I was concerned that it might be contributing to her increased low back pain. However there was not that much of a discrepancy that would be contributing. she has linear scleroderma whichcomplicates treatment modalities. Reports that she has had [...] reports she has been taking it. States herblood pressures at home are usually 110-120/60-70, she was supposed to bring her home monitor with her today but she did not. Osteoporosis-patient has been referred to osteoporosis clinic and followed up with them as directed. IBS-reports intermittent constipation diarrhea. States that the medical marijuana does help with her symptoms and her appetite. Denies any recent illnesses or injuries. Dr. Casey in [place] - does her shoulder injections and has done some hip injections (bursitis) .(can only do the right shoulder d/t disorder). 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 Lives alone [...] 1 tablet by mouth nightly 06/24/23 Yes Jose D Slaughter MD amLODIPine (Norvasc) 5 MG tablet Take [...] CNP 12/09/2023 5:37 PM documented in this [facility]10-12-2024 NoteOarrs reviewed and consistent with treatment plan. Rx sent. [facility] 11-27-2023 Telephone encounter Note* Telephone Encounter - KATHERINE Escalante CNP - 11/27/2023 5:14 AM EDT Oarrs reviewed and consistent with treatment plan. Rx sent. CSMA on file [facility] [id number] Miscellaneous Notes* Telephone Encounter - KATHERINE Escalante CNP - 11/27/2023 5:14 AM EDT Oarrs reviewed and consistent with treatment plan. Rx sent. CSMA on file * Telephone Encounter - Zee Richardson MA - 11/26/2023 7:54 AM EDT Spoke to Sue, pharmacy updated to [facility] in [place]. * Telephone Encounter - Zee Richardson MA - 11/25/2023 1:46 PM EDT Images from the original note were not included. KATHERINE Escalante CNP [facility] Clinical Support Staff1 hour ago (12:26 PM) Please notify patient that I will change it back to the Lunesta 3 mg nightly dose. Please confirm pharmacy Called Sue, no answer and vm is full. * Telephone Encounter - Isabella Greer - 11/25/2023 9:33 AM EDT Name of caller: sue Contact phone number: [phone] Relationship to Patient: patient Provider: KATHERINE Escalante CNP Practice: [facility] Chief Complaint/Reason for Call: Patient is following up on orders for eszopiclone (Lunesta) 3 MG tablet and eszopiclone (Lunesta) 2 MG tablet . Patient states that she can no longer alternate between both orders nightly because she can not getany sleep. Patient would like to continue taking eszopiclone (Lunesta) 3 MG tablet nightly instead.Patient is requesting a returned call to discuss this. Please advise. Best time of day caller can be reached: any Patient advised that office/PCP has 24-48 business hours to return their call: Yes documented in this encounterSMercy Health West [id number] Telephone encounter Note* Telephone Encounter - Zee Richardson MA - 11/26/2023 7:54 AM EDT Spoke to Sue, pharmacy updated to [facility] in [place]. [facility] [id number] Telephone encounter Note* Telephone Encounter - Zee Richardson MA - 11/25/2023 1:46 PM EDT Images from the original note were not included. KATHERINE Escalante CNP [facility] Clinical Support Staff1 hour ago (12:26 PM) Please notify patient that I will change it back to the Lunesta 3 mg nightly dose. Please confirm pharmacy Called Sue, no answer and vm is full. [facility] [id number] Telephone encounter Note* Telephone Encounter - Isabella Greer - 11/25/2023 9:33 AM EDT Name of caller: sue Contact phone number: [phone] Relationship to Patient: patient Provider: KATHREINE Escalante CNP Practice: [facility] Chief Complaint/Reason for Call: Patient is following up on orders for eszopiclone (Lunesta) 3 MG tablet and eszopiclone (Lunesta) 2 MG tablet . Patient states that she can no longer alternate between both orders nightly because she can not getany sleep. Patient would like to continue taking eszopiclone (Lunesta) 3 MG tablet nightly instead.Patient is requesting a returned call to discuss this. Please advise. Best time of day caller can be reached: any Patient advised that office/PCP has 24-48 business hours to return their call: Yes [facility] [id number] Evaluation + Plan note* Assessment & Plan Note - KATHERINE Escalante CNP - 11/03/2023 5:58 PM EDTAssociated Problem(s): Osteoporosis Follow-up with osteoporosis clinic as directed [facility] [id number] Miscellaneous Notes* Assessment & Plan Note - KATHERINE Escalante CNP - 11/03/2023 5:58 PM EDTAssociated Problem(s): Osteoporosis Follow-up with osteoporosis clinic as directed * Assessment & Plan Note - KATHERINE Escalante CNP - 11/03/2023 5:57 PM EDTAssociated Problem(s): Insomnia Symptoms are well-controlled on Lunesta [...] will alternate Lunesta 2 mg nightly with Lunesta3 mg nightly x 1 month. We will further decrease Lunesta as tolerated to 2 mg nightly x 4 weeks, then alternate Lunesta 1 mg nightly with 2 mg nightly for 4 weeks, then Lunesta 1 mg nightly x 4 weeks, then Lunesta 1 mg nightly as needed x 1 month then discontinue. Consider referral to sleep medicine if patient has significant insomnia. * Assessment & Plan Note - KATHERINE Escalante CNP - 11/03/2023 5:55 PM EDTAssociated Problem(s): Linear scleroderma Patient has been referred to Dr. Benson and is waiting to establish. Patient was advised that thisis a priority and she should call to get scheduled * Assessment & Plan Note - KATHERINE Escalante CNP - 11/03/2023 5:54 PM EDTAssociated Problem(s): Irritable bowel syndrome Stable. Patient will be seeing tool repair technician * Assessment & Plan Note - KATHERINE Escalante CNP - 11/03/2023 5:54 PM EDTAssociated Problem(s): Chronic back pain Stable. Continue Percocet 5-325 mg 1 tablet every 8 hours for severe pain. OARRS reviewed and consistent with treatment plan. See other documentation under chronic pain syndrome * Assessment & Plan Note - KATHERINE Escalante CNP - 11/03/2023 5:54 PM EDTAssociated Problem(s): Hypertension Uncontrolled. Restart amlodipine 10 mg daily. Bring blood pressure cuff to the office at next visit * Assessment & Plan Note - KATHERINE Escalante CNP - 11/03/2023 5:53 PM EDTAssociated Problem(s): Chronic pain syndrome Provider reached out to [facility] pain stewardship team for further recommendations regarding patient'evelina management. Conversation via secure chat. Recommendation was [...] comprehensive pain management for action pain and mikey May. --------- Discussed in great detail with patient and we will continue the Percocet at the current dosing of 5mg every 8 hours for severe pain. We [...] up in 1 month. documented in this [facility]09-18-2024 Evaluation + Plan note* Assessment & Plan Note - KATHERINE Escalante CNP - 11/03/2023 5:57 PM EDTAssociated Problem(s): Insomnia Symptoms are well-controlled on Lunesta [...] will alternate Lunesta 2 mg nightly with Lunesta3 mg nightly x 1 month. We will further decrease Lunesta as tolerated to 2 mg nightly x 4 weeks, then alternate Lunesta 1 mg nightly with 2 mg nightly for 4 weeks, then Lunesta 1 mg nightly x 4 weeks, then Lunesta 1 mg nightly as needed x 1 month then discontinue. Consider referral to sleep medicine if patient has significant insomnia. [facility] [id number] Evaluation + Plan note* Assessment & Plan Note - KATHERINE Escalante CNP - 11/03/2023 5:55 PM EDTAssociated Problem(s): Linear scleroderma Patient has been referred to Dr. Benson and is waiting to establish. Patient was advised that thisis a priority and she should call to get scheduled [facility] [id number] Evaluation + Plan note* Assessment & Plan Note - KATHERINE Escalante CNP - 11/03/2023 5:54 PM EDTAssociated Problem(s): Irritable bowel syndrome Stable. Patient will be seeing tool repair technician [facility] [id number] Evaluation + Plan note* Assessment & Plan Note - KATHERINE Escalante CNP - 11/03/2023 5:54 PM EDTAssociated Problem(s): Chronic back pain Stable. Continue Percocet 5-325 mg 1 tablet every 8 hours for severe pain. OARRS reviewed and consistent with treatment plan. See other documentation under chronic pain syndrome [facility] [id number] NoteStable. Continue Percocet 5-325 mg 1 tablet every 8 hours for severe pain. OARRS reviewed and consistent with treatment plan. See other documentation [facility]24 Evaluation + Plan note* Assessment & Plan Note - KATHERINE Escalante CNP - 11/03/2023 5:54 PM EDTAssociated Problem(s): Hypertension Uncontrolled. Restart amlodipine 10 mg daily. Bring blood pressure cuff to the office at next visit [facility] [id number] Evaluation + Plan note* Assessment & Plan Note - KATHERINE Escalante CNP - 11/03/2023 5:53 PM EDTAssociated Problem(s): Chronic pain syndrome Provider reached out to [facility] pain stewardship team for further recommendations regarding patient'evelina management. Conversation via secure chat. Recommendation was [...] comprehensive pain management for action pain and parminderin Yadira. --------- Discussed in great detail with patient and we will continue the Percocet at the current dosing of 5mg every 8 hours for severe pain. We [...] sedative. Close follow up in 1 month. [facility] [id number] History of Present illness Narrative* Korin Mack - 11/03/2023 3:20 PM EDT Health Maintenance Addressed with Patient at Visit: Health Maintenance Due Topic Colorectal Cancer Screening-pended Diabetes Screening-was pended from provider Cervical Cancer Screening-pended Lung Cancer Screening-pended Depression Monitoring-completed COVID-19 Vaccine-declined Influenza Vaccine-declined * KATHERINE Escalante CNP - 11/03/2023 3:20 PM EDT Images from the original note were not included. 11/03/2023 Sue Moncada (: 1970) is a 53 y.o. female , Established patient, here for evaluation of the following chief complaint(s): Medication Check ASSESSMENT/PLAN: 1. Chronic pain syndrome Assessment & Plan: Provider reached out to [facility] pain stewardship team for further recommendations regarding patient'evelina management. Conversation via secure chat. Recommendation was [...] comprehensive pain management for action pain and parminderin Yadira. --------- Discussed in great detail with patient and we will continue the Percocet at the current dosing of 5mg every 8 hours for severe pain. We [...] & Plan: Stable. Patient will be seeing tool repair technician 5. Linear scleroderma Assessment & Plan: Patient has been referred to Dr. Benson and is waiting to establish. Patient was advised that thisis a priority and she should call to [...] will alternate Lunesta 2 mg nightly with Lunesta3 mg nightly x 1 month. We will [...] female , Established patient, here for the evaluationof the following chief complaint(s): Medication Check Patient [...] participated in physical therapy multiple times. She mostrecently was remeasured for her lift on her left foot and is waiting to have enough money to get a new shoe, as I was concerned that it might be contributing to her increased low back pain. However there was not that much of a discrepancy that would be contributing. she has linear scleroderma whichcomplicates treatment modalities. Reports that she has had [...] They were drawn at her last visit withus however I am unable to see the [...] 1 tablet by mouth nightly 06/24/23 Yes Jose D Slaughter MD amLODIPine (Norvasc) 5 MG tablet Take [...] start before September 22, 2023. 09/22/23 10/22/23 CHANDLER Escalante CNP Review of Systems Constitutional: Negative. Negative [...] CNP 11/03/2023 6:05 PM documented in this [facility]09-18-2024 Instructions* Patient Instructions* KATHERINE Escalante CNP - 11/03/2023 3:20 PM [...] you come back in. documented in this [facility]09-10-2024 History of Present illness Narrative* Estefanía Vera MD - 10/26/2023 2:00 PM EDT Images from the original note were not included. [facility] - [place] [id number] [place] [address] Dept: [phone] Dept Chief Complaint Patient presents with New Patient Pt is here for pain through out her entire body. She states she has been dealing with pain for over30 yrs. Today her worst pain is in the center of her low back and to the right side. She states shehas a soft mass in her back which causes a lot of pain. Pain in her left shoulder which began years ago after she broke it. Does get injections to help with this pain. SUBJECTIVE HPI: Sue Moncada is a 53 y.o. year old [...] level: Not on file Occupational History Comment: [employer] Tobacco Use Smoking status: Every Day [...] Narrative Lives with sister (adoptive family) in [facility].grew up in [place], adopted. Came back to [place] last July 2021, from [place] since 2010.boyfriend about 7 years ago, (were together 15 yrs). Adopted parents sold where she was living and so she moved back here. Adopted parents live up here and biological family. Linear scleroderma since age 6. 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 Social Determinants of Health Financial Resource Strain: [...] alignment. The disc spaces are grossly maintained. Thereis no acute fracture. There are no focal [...] changes are present. At the L4/L5 level, oklv-nv-spvblhdy left and no significant right-sided foraminal narrowing noted.Degenerative facet changes present. Central canal patent. At [...] adequately controlled 3) Opioid dependency PLAN -Reviewed Jeri Trudy's note from 10/06/23, and MRIs of the thoracic and lumbar spine above today - Patient made it clear that she was mainly focused on finding someone to take over prescription ofher chronic opioid therapy for her chronic pain. [...] try to get another opinion at another localpain management clinic, which I offered her a list of today. - I did explain that she still may be a candidate for repeat lumbar RFA, but she is not interested in that option at this time No follow-ups on file. documented in this encounterSMer[facility] [id number] Telephone encounter Note* Telephone Encounter - Jeri Wilson - 10/13/2023 10:34 AM EDT Noted [id number] Telephone encounter Note* Telephone Encounter - KATHERINE Escalante CNP - 10/12/2023 12:54 PM EDT Please keep it open. Patient said she was planning on rescheduling it when I talked to her last. [facility] [id number] Telephone encounter Note* Telephone Encounter - Jeri Wilson - 10/12/2023 11:16 AM EDT Pt given orders for CT-Lung Screen on 03/04/23. Pt sched for 06/29/23 and NC/NS to appt. No follow upscheduled at this time. Okay to cancel orders? [facility] [id number] Evaluation + Plan note* Assessment & Plan Note - KATHERINE Escalante CNP - 10/06/2023 4:24 PM EDTAssociated Problem(s): Chronic pain syndrome Discussion with patient regarding pain management and needing to establish with another pain management provider. She does have a pain management appt in October with Dr. Vera. Patient does alsohave a medical marijuana card. reports using marijuana in the evenings and usually on the weekends.Reports this helps with her appetite due to her scleroderma. She is well aware of potential risks associated with using additional medications that may be sedative. Oarrs reviewed. Close follow-up in 1 month. [facility] [id number] Miscellaneous Notes* Assessment & Plan Note - KATHERINE Escalante CNP - 10/06/2023 4:24 PM EDTAssociated Problem(s): Chronic pain syndrome Discussion with patient regarding pain management and needing to establish with another pain management provider. She does have a pain management appt in October with Dr. Brant. Patient does alsohave a medical marijuana card. reports using marijuana in the evenings and usually on the weekends.Reports this helps with her appetite due to her scleroderma. She is well aware of potential risks associated with using additional medications that may be sedative. Oarrs reviewed. Close follow-up in 1 month. * Assessment & Plan Note - KATHERINE Escalante CNP - 10/06/2023 4:21 PM EDTAssociated Problem(s): Linear scleroderma Has been referred to rheumatology. Is waiting to establish. Was referred to Dr. Benson * Assessment & Plan Note - KATHERINE Escalante CNP - 10/06/2023 4:21 PM EDTAssociated Problem(s): Degenerative joint disease (DJD) of lumbar spine Continue current medications. * Assessment & Plan Note - KATHERINE Escalante CNP - 10/06/2023 4:20 PM EDTAssociated Problem(s): Insomnia Symptoms well-controlled with Lunesta 3 mg nightly * Assessment & Plan Note - KATHERINE Escalante CNP - 10/06/2023 4:20 PM EDTAssociated Problem(s): Osteoporosis Draw labs today for the osteoporosis clinic. Follow-up with them as directed * Assessment & Plan Note - KATHERINE Escalante CNP - 10/06/2023 4:20 PM EDTAssociated Problem(s): Hypertension Initial and repeat blood pressure elevated. Patient home blood pressure readings have been good. Patient advised to continue to take amlodipine 5 mg daily. Report home blood pressure readings to office if they are greater than 140/90. * Assessment & Plan Note - KATHERINE Escalante CNP - 10/06/2023 4:19 PM EDTAssociated Problem(s): Hypercholesterolemia Controlled. Continue atorvastatin 20 mg nightly. documented in this [facility]08-21-2024 Miscellaneous Notes* Assessment & Plan Note - KATHERINE Escalante CNP - 10/06/2023 4:24 PM EDTAssociated Problem(s): Chronic pain syndrome Discussion with patient regarding pain management and needing to establish with another pain management provider. She does have a pain management appt in October with Dr. Vera. Patient does alsohave a medical marijuana card. reports using marijuana in the evenings and usually on the weekends.Reports this helps with her appetite due to her scleroderma. She is well aware of potential risks associated with using additional medications that may be sedative. Oarrs reviewed. Close follow-up in 1 month. * Assessment & Plan Note - KATHERINE Escalante CNP - 10/06/2023 4:21 PM EDTAssociated Problem(s): Linear scleroderma Has been referred to rheumatology. Is waiting to establish. Was referred to Dr. Benson * Assessment & Plan Note - KATHERINE Escalante CNP - 10/06/2023 4:21 PM EDTAssociated Problem(s): Degenerative joint disease (DJD) of lumbar spine Continue current medications. * Assessment & Plan Note - KATHERINE Escalante CNP - 10/06/2023 4:20 PM EDTAssociated Problem(s): Insomnia Symptoms well-controlled with Lunesta 3 mg nightly * Assessment & Plan Note - KATHERINE Escalante CNP - 10/06/2023 4:20 PM EDTAssociated Problem(s): Osteoporosis Draw labs today for the osteoporosis clinic. Follow-up with them as directed * Assessment & Plan Note - KATHERINE Escalante CNP - 10/06/2023 4:20 PM EDTAssociated Problem(s): Hypertension Initial and repeat blood pressure elevated. Patient home blood pressure readings have been good. Patient advised to continue to take amlodipine 5 mg daily. Report home blood pressure readings to office if they are greater than 140/90. * Assessment & Plan Note - KATHERINE Escalante CNP - 10/06/2023 4:19 PM EDTAssociated Problem(s): Hypercholesterolemia Controlled. Continue atorvastatin 20 mg nightly. 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 Is waiting to establish. Was referred to Dr. Benson [facility] [id number] Evaluation + Plan note* Assessment & Plan Note - KATHERINE Escalante CNP - 10/06/2023 4:21 PM EDTAssociated Problem(s): Degenerative joint disease (DJD) of lumbar spine Continue current medications. [place] [id number] Evaluation + Plan note* Assessment & Plan Note - KATHERINE Escalante CNP - 10/06/2023 4:20 PM EDTAssociated Problem(s): Insomnia Symptoms well-controlled with Lunesta 3 mg nightly [place] [id number] Evaluation + Plan note* Assessment & Plan Note - KATHERINE Escalante CNP - 10/06/2023 4:20 PM EDTAssociated Problem(s): Osteoporosis Draw labs today for the osteoporosis clinic. Follow-up with them as directed [place] [id number] Evaluation + Plan note* Assessment & Plan Note - KATHERINE Escalnate CNP - 10/06/2023 4:20 PM EDTAssociated Problem(s): Hypertension Initial and repeat blood pressure elevated. Patient home blood pressure readings have been good. Patient advised to continue to take amlodipine 5 mg daily. Report home blood pressure readings to office if they are greater than 140/90. [facility] [id number] Evaluation + Plan note* Assessment & Plan Note - KATHERINE Escalante CNP - 10/06/2023 4:19 PM EDTAssociated Problem(s): Hypercholesterolemia Controlled. Continue atorvastatin 20 mg nightly. [facility] [id number] History of Present illness Narrative* KATHERINE Escalante CNP - 10/06/2023 3:20 PM EDT Images from the original note were not included. 10/06/2023 Sue Moncada (: 1970) is a 53 y.o. female , Established patient, here for evaluation of the following chief complaint(s): Follow-up ASSESSMENT/PLAN: 1. Chronic pain syndrome Assessment & Plan: Discussion with patient regarding pain management and needing to establish with another pain management provider. She does have a pain management appt in October with Dr. Vera. Patient does alsohave a medical marijuana card. reports using marijuana in the evenings and usually on the weekends.Reports this helps with her appetite due to [...] female , Established patient, here for the evaluationof the following chief complaint(s): Follow-up 1. 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 She has been on Percocet for many years for her chronic pain. She has done steroid injections in the past, most recently in her right shoulder but it is limited in giving her relief. Shereports she has had other pain injections but [...] drawn for them but has not done so.We will go ahead and get them done today for her. 6. Other osteoarthritis of spine, lumbar region Reports chronic back pain. No new changes in bowel or bladder. 7. Hypercholesterolemia Reports taking atorvastatin 20 mg without any issues. Prior to Admission medications Medication Sig Start Date End Date Taking? Authorizing Provider amitriptyline (Elavil) 50 MG tablet take 1 tablet by mouth nightly 06/24/23 Jose D Slaughter MD amLODIPine (Norvasc) 5 MG tablet Take 1 tablet (5 mg) by mouth daily. 08/12/23 09/02/24 KATHERINE Escalante CNP atorvastatin (Lipitor) 20 MG tablet take 1 tablet by mouth nightly 09/08/23 CHANDLER Escalante CNP buPROPion XL (Wellbutrin XL) 150 [...] start before October 22, 2023. 10/22/23 11/21/23 JeriKATHERINE Gresham CNP eszopiclone (Lunesta) 3 MG tablet Take 1 tablet (3 mg) by mouth Nightly as needed for sleep. Take immediately before bedtime Do not start before September 22, 2023. 09/22/23 10/22/23 CHANDLER Escalante CNP naloxone (Narcan) 4 mg/0.1 mL nasal spray ADMINISTER A SINGLE spray INTO ONE NOSTRIL repeat in 3 MINUTES IF... (REFER TO PRESCRIPTION NOTES). 03/04/23 Historical Provider, oxyCODONE-acetaminophen (Percocet) 5-325 MG tablet Take 1 tablet by mouth every 8 hours as needed for severe pain (7-10). Do not start before September 11, 2023. 09/11/23 10/11/23 KATHERINE Escalante tiZANidine (Zanaflex) 4 MG tablet take 2 [...] note. KATHERINE Bergman CNP 10/06/2023 4:34 PM * Kroin Mack - 10/06/2023 3:20 PM EDT Patient was identified by name and Date of . Will send in numbers via [employer] documented in this [facility]08-21-2024 History of Present illness Narrative* KATHERINE Escalante CNP - 10/06/2023 3:20 PM EDT Images from the original note were not included. 10/06/2023 Sue Moncada (: 1970) is a 53 y.o. female , Established patient, here for evaluation of the following chief complaint(s): Follow-up ASSESSMENT/PLAN: 1. Chronic pain syndrome Assessment & Plan: Discussion with patient regarding pain management and needing to establish with another pain management provider. She does have a pain management appt in October with Dr. Vera. Patient does alsohave a medical marijuana card. reports using marijuana in the evenings and usually on the weekends.Reports this helps with her appetite due to her scleroderma. She is well aware of potential risks associated with using additional medications that may be sedative. Oarrs reviewed. Close follow-up in 1 month. Orders: - oxyCODONE-acetaminophen (Percocet) 5-325 MG tablet; Take 1 tablet by mouth every 8 hours as needed for severe pain (7-10). Do not start before October 11, 2023., Starting Wed10/11/2023, Until Wed11/10/2023 at 2359, Normal 2. Insomnia, [...] female , Established patient, here for the evaluationof the following chief complaint(s): Follow-up 1. 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 She has been on Percocet for many years for her chronic pain. She has done steroid injections in the past, most recently in her right shoulder but it is limited in giving her relief. Shereports she has had other pain injections but [...] drawn for them but has not done so.We will go ahead and get them done today for her. 6. Other osteoarthritis of spine, lumbar region Reports chronic back pain. No new changes in bowel or bladder. 7. Hypercholesterolemia Reports taking atorvastatin 20 mg without any issues. Prior to Admission medications Medication Sig Start Date End Date Taking? Authorizing Provider amitriptyline (Elavil) 50 MG tablet take 1 tablet by mouth nightly 06/24/23 Jose D Slaughter MD amLODIPine (Norvasc) 5 MG tablet Take 1 tablet (5 mg) by mouth daily. 08/12/23 09/02/24 KATHERINE Escalante CNP atorvastatin (Lipitor) 20 MG tablet take 1 tablet by mouth nightly 09/08/23 CHANDLER Escalante CNP buPROPion XL (Wellbutrin XL) 150 [...] start before September 22, 2023. 09/22/23 10/22/23 CHANDLER Escalante CNP naloxone (Narcan) 4 mg/0.1 mL nasal spray ADMINISTER A SINGLE spray INTO ONE NOSTRIL repeat in 3 MINUTES IF... (REFER TO PRESCRIPTION NOTES). 03/04/23 Historical Provider, oxyCODONE-acetaminophen (Percocet) 5-325 MG tablet Take 1 tablet by mouth every 8 hours as needed for severe pain (7-10). Do not start before September 11, 2023. 09/11/23 10/11/23 KATHERINE Escalante tiZANidine (Zanaflex) 4 MG tablet take 2 [...] note. KATHERINE Bergman CNP 10/06/2023 4:34 PM * Korin Mack - 10/06/2023 3:20 PM EDT Patient was identified by name and Date of . Will send in numbers via [employer] documented in this [facility]08-21-2024 Note* Addendum Note - KATHERINE Escalante CNP - 10/06/2023 3:20 PM EDTAddended by: JERI TRINIDAD on: 10/07/2023 05:12 PM Modules accepted: Level of Service [facility] [id number] Telephone encounter Note* Telephone Encounter - Missy Draper RN - 09/21/2023 6:49 PM EDT S: Patient spoke with [facility] nurse regarding patient stating she needs to pick up and delivery driver her Rx for Luneta tonight. B: [...] to begin before 09/21. Advised she can pick up and delivery driver the medication at her pharmacy tomorrow. Patient understands care advice. No further needs at this time. Patient instructed to call back with new or worsening symptoms. Reason for Disposition Caller has medicine question only, adult not sick, AND triager answers question Protocols used: Medication Question [id number] [facility] [id number] Miscellaneous Notes* Telephone Encounter - Missy Draper RN - 09/21/2023 6:49 PM EDT S: Patient spoke with [facility] nurse regarding patient stating she needs to pick up and delivery driver her Rx for Luneta tonight. B: [...] to begin before 09/21. Advised she can pick up and delivery driver the medication at her pharmacy tomorrow. Patient understands care advice. No further needs at this time. Patient instructed to call back with new or worsening symptoms. Reason for Disposition Caller has medicine question only, adult not sick, AND triager answers question Protocols used: Medication Question [id number] documented in this encounterSMercy Health West [id number] Evaluation + Plan note* Assessment & Plan Note - KATHERINE Escalante CNP - 09/09/2023 5:51 PM EDTAssociated Problem(s): Hypertension Initial and repeat blood pressure [...] call us if it is over 140/90 [facility] [id number] Miscellaneous Notes* Assessment & Plan Note - KATHERINE Escalante CNP - 09/09/2023 5:51 PM EDTAssociated Problem(s): Hypertension Initial and repeat blood pressure [...] call us if it is over 140/90 * Assessment & Plan Note - KATHERINE Escalante CNP - 09/09/2023 5:44 PM EDTAssociated Problem(s): Insomnia Symptoms well-controlled on Lunesta 3 mg nightly as needed for sleep. OARRS reviewed and consistentwith treatment plan. CS MA in place. * Assessment & Plan Note - KATHERINE Escalante CNP - 09/09/2023 5:44 PM EDTAssociated Problem(s): Linear scleroderma Referral placed to rheumatology * Assessment & Plan Note - KATHERINE Escalante CNP - 09/09/2023 5:41 PM EDTAssociated Problem(s): Chronic pain syndrome Discussion with patient regarding pain management and needing to establish with another pain management provider. She does have a pain management appt in October with Dr. Vera. Patient does alsohave a medical marijuana card. No reports using marijuana in the evenings and usually on the weekends. Reports this helps with her appetite due to her scleroderma. She is well aware of potential risks associated with using additional medications that may be sedative. Oarrs reviewed. Close follow-up in 1 month. documented in this encounterSMercy Health West [id number] Evaluation + Plan note* Assessment & Plan Note - KATHERINE Escalante CNP - 09/09/2023 5:44 PM EDTAssociated Problem(s): Insomnia Symptoms well-controlled on Lunesta 3 mg nightly as needed for sleep. OARRS reviewed and consistentwith treatment plan. CS MA in place. [facility] [id number] Evaluation + Plan note* Assessment & Plan Note - KATHERINE Escalante CNP - 09/09/2023 5:44 PM EDTAssociated Problem(s): Linear scleroderma Referral placed to rheumatology [facility] [id number] Evaluation + Plan note* Assessment & Plan Note - KATHERIEN Escalante CNP - 09/09/2023 5:41 PM EDTAssociated Problem(s): Chronic pain syndrome Discussion with patient regarding pain management and needing to establish with another pain management provider. She does have a pain management appt in October with Dr. Vera. Patient does alsohave a medical marijuana card. No reports using marijuana in the evenings and usually on the weekends. Reports this helps with her appetite due to her scleroderma. She is well aware of potential risks associated with using additional medications that may be sedative. Oarrs reviewed. Close follow-up in 1 month. [place] [id number] History of Present illness Narrative* Korin Mack - 09/09/2023 3:20 PM EDT Patient was identified by name and Date of . Patients blood pressure was still elevated a second time. Advised her to send in blood pressure numbers in 1-2 weeks. * Jeri Trinidad, [employer]ING [employer] WORKER - DIGITAL MEDIA STRATEGIST - 09/09/2023 3:20 PM EDT Images from the original note were not included. 09/09/2023 Sue Moncada (: 1970) is a 53 y.o. female , Established patient, here for evaluation of the following chief complaint(s): Follow-up ASSESSMENT/PLAN: 1. Chronic pain syndrome Assessment & Plan: Discussion with patient regarding pain management and needing to establish with another pain management provider. She does have a pain management appt in October with Dr. Vera. Patient does alsohave a medical marijuana card. No reports using [...] as needed for sleep. OARRS reviewed and consistentwith treatment plan. CS MA in place. Orders: - eszopiclone (Lunesta) 3 MG tablet; Take 1 tablet (3 mg) by mouth Nightly as needed for sleep. Take immediately before bedtime Do not start before November 21, 2023., Starting 11/21/2023, Until Wed12/21/2023 at 2359, Normal - eszopiclone (Lunesta) 3 MG tablet; Take 1 tablet (3 mg) by mouth Nightly as needed for sleep. Take immediately before bedtime Do not start before October 22, 2023., Starting 10/22/2023, Until 11/21/2023 at 2359, Normal - eszopiclone (Lunesta) 3 MG tablet; Take 1 tablet (3 mg) by mouth Nightly as needed for sleep. Take immediately before bedtime Do not start before September 22, 2023., Starting 09/22/2023, Until 10/22/2023 at 2359, Normal 3. Linear scleroderma Assessment [...] female , Established patient, here for the evaluationof the following chief complaint(s): Follow-up Presents for follow-up for chronic pain. We have been bridging her to a automotive painter helper but have had difficulty finding pain management [...] 1 tablet by mouth nightly 06/24/23 Yes Jose D Slaughter MD amLODIPine (Norvasc) 5 MG tablet Take [...] mg) by mouth Nightly. 03/09/23 09/08/23 KATHERINE Arguelles CNP Review of Systems Constitutional: Negative for [...] CNP 09/09/2023 5:51 PM documented in this [place] [id number] Telephone encounter Note* Telephone Encounter - KATHERINE Escalante CNP - 09/08/2023 2:11 PM EDT Reviewed chart. Refill appropriate. RX sent. [facility] [id number] Miscellaneous Notes* Telephone Encounter - KATHERINE Escalante CNP - 09/08/2023 2:11 PM EDT Reviewed chart. Refill appropriate. RX sent. * Telephone Encounter - Elsa Lawrence MA - 09/08/2023 10:33 AM EDT Prescription Request: Last medication check: 08/12/2023 Last physical exam: 03/04/2023 Next scheduled appointment: 09/09/2023 Last date of refill on this medication: 03/09/2023 documented in this [address]24-2024 Telephone encounter Note* Telephone Encounter - Elsa Lawrence MA - 09/08/2023 10:33 AM EDT Prescription Request: Last medication check: 08/12/2023 Last physical exam: 03/04/2023 Next scheduled appointment: 09/09/2023 Last date of refill on this medication: 03/09/2023 [facility] [id number] Telephone encounter Note* Telephone Encounter - KATHERINE Escalante CNP - 08/26/2023 7:46 AM EDT Reviewed chart. Refill appropriate. RX sent. [place] [id number] Miscellaneous Notes* Telephone Encounter - KATHERINE Escalante CNP - 08/26/2023 7:46 AM EDT Reviewed chart. Refill appropriate. RX sent. * Telephone Encounter - Tejal Yousif MA - 08/26/2023 7:30 AM EDT Prescription Request: Last medication check: 08/12/23 Last physical exam: 03/04/23 Next scheduled appointment: 09/09/23 Last date of refill on this medication 07/13/23 documented in this encounterSMercy Health West [id number] Telephone encounter Note* Telephone Encounter - Tejal Yousif MA - 08/26/2023 7:30 AM EDT Prescription Request: Last medication check: 08/12/23 Last physical exam: 03/04/23 Next scheduled appointment: 09/09/23 Last date of refill on this medication 07/13/23 [facility] [id number] Telephone encounter Note* Telephone Encounter - KATHERINE Escalante CNP - 08/23/2023 12:16 PM EDT Reviewed chart. Refill appropriate. RX sent. OARRS reviewed and consistent with treatment plan. CS MA in place [facility] [id number] Miscellaneous Notes* Telephone Encounter - KATHERINE Escalante CNP - 08/23/2023 12:16 PM EDT Reviewed chart. Refill appropriate. RX sent. OARRS reviewed and consistent with treatment plan. JESSE HUDSON in place * Telephone Encounter - Tejal Yousif MA - 08/23/2023 8:01 AM EDT Prescription Request: Last medication check: 12/07/22 Last physical exam: 03/04/23 Next scheduled appointment: 09/09/23 Last date of refill on this medication 07/23/23 * Telephone Encounter - Rosa Maria Whaley RN - 08/20/2023 7:28 PM EDT S: Patient spoke with [facility] nurse regarding medication refill- callback B: Onset of symptoms/concern today A: Patient states she is out of her eszopiclone 3 mg after Wednesday. Requesting an urgent refill. R: Patient advised that message will be sent to office for review for Wednesday as it is not an urgentmedication. Reason for Disposition Caller has NON-URGENT medicine question about med that PCP prescribed and triager unable to answer question Protocols used: Medication Refill and Renewal [id number] * Telephone Encounter - Willard Medeiros RN - 08/20/2023 4:21 PM EDT S: Patient spoke with CAC nurse regarding [...] policy Protocols used: Medication Refill and Renewal [id number] documented in this encounterSMercy Health West HospitalJalikc35-02-0669 Telephone encounter Note* Telephone Encounter - Tejal Yousif MA - 08/23/2023 8:01 AM EDT Prescription Request: Last medication check: 12/07/22 Last physical exam: 03/04/23 Next scheduled appointment: 09/09/23 Last date of refill on this medication 07/23/23 [id number] Telephone encounter Note* Telephone Encounter - Rosa Maria Whaley RN - 08/20/2023 7:28 PM EDT S: Patient spoke with [facility] nurse regarding medication refill- callback B: Onset of symptoms/concern today A: Patient states she is out of her eszopiclone 3 mg after Wednesday. Requesting an urgent refill. R: Patient advised that message will be sent to office for review for Wednesday as it is not an urgentmedication. Reason for Disposition Caller has NON-URGENT medicine question about med that PCP prescribed and triager unable to answer question Protocols used: Medication Refill and Renewal [id number] [facility] HospitalDuvbmw69-22-3128 Telephone encounter Note* Telephone Encounter - Willard Medeiros RN - 08/20/2023 4:21 PM EDT S: Patient spoke with CAC nurse regarding [...] policy Protocols used: Medication Refill and Renewal [id number] [facility] HospitalKlzfen05-76-6330 Evaluation + Plan note* Assessment & Plan Note - KATHERINE Escalante CNP - 08/12/2023 5:10 PM EDTAssociated Problem(s): Osteopetrosis Follow-up with osteoporosis clinic [facility] HospitalFoiqly71-21-9259 Evaluation + Plan note* Assessment & Plan Note - KATHERINE Escalante CNP - 08/12/2023 5:10 PM EDTAssociated Problem(s): Osteoporosis Follow-up with osteoporosis clinic [facility] HospitalMtluoe94-33-1386 Miscellaneous Notes* Assessment & Plan Note - KATHERINE Escalante CNP - 08/12/2023 5:10 PM EDTAssociated Problem(s): Osteopetrosis Follow-up with osteoporosis clinic * Assessment & Plan Note - KATHERINE Escalante CNP - 08/12/2023 5:10 PM EDTAssociated Problem(s): Osteoporosis Follow-up with osteoporosis clinic * Assessment & Plan Note - KATHERINE Escalante CNP - 08/12/2023 5:08 PM EDT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 * Assessment & Plan Note - KATHERINE Escalante CNP - 08/12/2023 5:06 PM EDTAssociated Problem(s): Chronic pain syndrome Had long discussion [...] months. Also discussed possible options for treatment withbuprenorphine for opioid dependence through another provider. Oarrs reviewed and consistent with current treatment plan. * Assessment & Plan Note - KATHERINE Escalante CNP - 08/12/2023 11:33 AM EDTAssociated Problem(s): Hypertension Uncontrolled. Blood pressure 179/91. Patient states that she ran out of her blood pressure medicine. Refill sent, patient advised to restart her blood pressure medicine documented in this encounterSMercy Health West HospitalTkhubq46-67-5429 Evaluation + Plan note* Assessment & Plan Note - KATHERINE Escalante CNP - 08/12/2023 5:08 PM EDT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 [facility] HospitalAvhozg17-57-6988 Evaluation + Plan note* Assessment & Plan Note - KATHERINE Escalante CNP - 08/12/2023 5:06 PM EDTAssociated Problem(s): Chronic pain syndrome Had long discussion [...] months. Also discussed possible options for treatment withbuprenorphine for opioid dependence through another provider. Oarrs reviewed and consistent with current treatment plan. [facility] [id number] History of Present illness Narrative* KATHERINE Shelby CNP - 08/12/2023 3:00 PM EDT Images from the original note were not included. [facility] OSTEOPOROSIS [address] [facility] [address] Dept: [phone] Dept Loc: [phone] Visit type: New patient Reason for Visit: Osteoporosis Assessment and Plan 1. Scleroderma (HCC) 2. Age-related osteoporosis without current pathological fracture - [facility] Osteoporosis - DEXA bone density axial skeleton [...] guided on dosage adjustment pending labs if n eeded. We discussed limiting alcohol, caffeine and pop. Smoking cessation was advised. I recommended adding prunes into daily diet for bone health. Safe weight bearing exercise recommended for 30 minutes at least three times weekly. Fall prevention was discussed. I do not have DXA scan results, so I did not discuss medication with patient. Staff contacted [facility] who is supposed to send 01/2022 DXA scan. Labs ordered, repeat DXA ordered for 01/2024. All questions were answered and pt agrees with plan. Follow up will be determined pending labs and dxa. Advised pt on the following: Adequate dietary calcium intake of 2604-6636 mg per day through diet and/or supplements. Vitamin D3 8010-2371 IU daily. Participate in weight bearing exercises. [...] The patient is referred for: Referred by Jeri Trinidad AP*Osteoporosis The osteopenia/osteoporosis was first diagnosed [...] Yes Alcohol use: No Secondary osteoporosis: Yes fdc prednisone for scleroderma. Menopause: Age ~48 HRT use: None DEXA imaging: Will try to obtain from [facility] it was in 01/2022 Labs: see below [...] HENT: Head: Normocephalic and atraumatic. Mouth/Throat: Lips: [place]. Mouth: Mucous membranes are moist. Dentition: Abnormal [...] D Deficiency Screening (Vit D 25) Order: [id number] Status: Final result Visible to patient: Yes (not seen) Next appt: 08/12/2023 at 03:00 PM in Osteoporosis Bone Health (SCHEDULE, [facility]) 2 Result Notes 1 Patient [...] D, (D2,D3), LC/MS/MS is recommended: order code 88048 (patients >2yrs). See Note 1 Note 1 For additional information, please refer to http://education.[employer]/faq/NDE214 (This link is being provided for informational/ educational purposes only.) Resulting Agency [facility] Specimen Collected: 03/04/23 10:02 Last Resulted: 03/05/23 02:57 No results found for: TSH, M3CPUPV, C3GGOGB, THYROIDAB, T4FREE No results found for: PTH Imaging/Testing: The combined time I spent reviewing previous notes/test results, evaluating the patient, providing counseling on disease process and treatment plan the day of the visit as well as documenting hvdvcnu86 minutes. I have addressed the above chronic [...] the signing physician directly. documented in this [facility]06-27-2024 Instructions* Patient Instructions* KATHERINE Shelby CNP - 08/12/2023 3:00 PM EDT Ensure 1200mg of calcium daily between diet and supplement Eat 5-6 prunes daily Schedule your DXA scan for 01/2024 * Attachments The following attachments cannot be sent through Care Everywhere. * Osteoporosis Discharge Instructions (Singaporean) * Calcium and Vitamin D for Bone Health (Singaporean) * Weight-Bearing Exercises (Singaporean) documented in this [facility]06-27-2024 Evaluation + Plan note* Assessment & Plan Note - KATHERINE Escalante CNP - 08/12/2023 11:33 AM EDTAssociated Problem(s): Hypertension Uncontrolled. Blood pressure 179/91. Patient states that she ran out of her blood pressure medicine. Refill sent, patient advised to restart her blood pressure medicine [facility] HospitalDwkixm81-49-9756 History of Present illness Narrative* Korin Mack - 08/12/2023 11:00 AM EDT Patient was identified by name and Date of . * KATHERINE Escalante CNP - 08/12/2023 11:00 AM EDT Images from the original note were not included. 08/12/2023 Sue Moncada (: 1970) is a 53 y.o. [...] months. Also discussed possible options for treatment withbuprenorphine for opioid dependence through another provider. Oarrs [...] 1 month (around 09/11/2023) for Recheck. SUBJECTIVE/OBJECTIVE: BRADFORD Moncada (: 1970) is a 53 y.o. female , Established patient, here for the evaluationof the following chief complaint(s): Pain Patient presents [...] for severe pain and she also uses medicalmarijuana at night on the weekends for her pain. Uses tizanidine every 8 hours as needed for musclespasms. She is aware to avoid use of [...] completed physical therapy in June 2022 at [facility]. At that time it was not very helpful for her pain We referred her to physical therapy and she has had her initial visit. She reports they are gettingher a roll for her back to be fitted for her vehicle. Also measured her leg discrepancy which does need adjusted slightly (increase in lift). Next visit is next week Right shoulder-gets injections about every 3 months through [facility] [place]. Last injection about 2.5 months ago. Insomnia-uses Lunesta 3 mg nightly with good symptom control. 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 Stated she stopped going [...] 1 tablet by mouth nightly 06/24/23 Yes Jose D Slaughter MD atorvastatin (Lipitor) 20 MG tablet [...] Take immediately before bedtime 07/23/23 08/22/23 Yes Jose D Slaughter MD naloxone (Narcan) 4 mg/0.1 mL nasal spray ADMINISTER A SINGLE spray INTO ONE NOSTRIL repeat in 3 MINUTES IF... (REFER TO PRESCRIPTION NOTES). 03/04/23 Yes Historical Provider, oxyCODONE-acetaminophen (Percocet) 5-325 MG tablet Take 1 tablet by mouth every 8 hours as needed for severe pain (7-10). 07/13/23 08/12/23 Yes Jeri Trinidad APRN - [facility] tiZANidine (Zanaflex) 4 MG tablet take 2 tablets by mouth at bedtime if needed 07/13/23 Yes Jerilakshmi Trinidad APRN - [facility] amLODIPine (Norvasc) 5 MG tablet 5 mg. 07/21/22 08/12/23 Yes Historical Provider, amLODIPine (Norvasc) 5 MG tablet Take 1 tablet (5 mg) by mouth daily. 08/12/23 09/02/24 Jeri KATHERINE Trinidad - DIGITAL MEDIA STRATEGIST Review of Systems Constitutional: Negative for activity [...] CNP 08/12/2023 5:12 PM documented in this [facility]06-27-2024 Instructions* Patient Instructions* KATHERINE Escalante CNP - 08/12/2023 11:00 AM EDT Please reach out to the pain management providers that your insurance gave you to see if they manage persons that also have a medical marijuana Continue physical therapy. documented in this [facility]06-12-2024 Evaluation + Plan note* Assessment & Plan Note - KATHERINE Escalante CNP - 07/28/2023 5:26 PM EDTAssociated Problem(s): Insomnia Symptoms well-controlled on Lunesta 3 mg nightly as needed for sleep. OARRS reviewed and consistentwith treatment plan. MA is in place. [facility] [id number] Miscellaneous Notes* Assessment & Plan Note - KATHERINE Escalante CNP - 07/28/2023 5:26 PM EDTAssociated Problem(s): Insomnia Symptoms well-controlled on Lunesta 3 mg nightly as needed for sleep. OARRS reviewed and consistentwith treatment plan. MA is in place. * Assessment & Plan Note - KATHERINE Escalante CNP - 07/28/2023 5:22 PM EDTAssociated Problem(s): Osteoporosis Refer to osteoporosis clinic * Assessment & Plan Note - KATHERINE Escalante CNP - 07/28/2023 5:20 PM EDTAssociated Problem(s): Degenerative joint disease (DJD) of lumbar spine Continue current medications, recommend starting physical therapy. * Assessment & Plan Note - KATHERINE Escalante CNP - 07/28/2023 5:19 PM EDTAssociated Problem(s): Hypertension Uncontrolled. Repeat blood pressure remains elevated 176/83. Patient was advised that she needs to take her amlodipine 5 mg daily. She did not take medication today * Assessment & Plan Note - KATHERINE Escalante CNP - 07/28/2023 5:19 PM EDTAssociated Problem(s): Mass on back Soft tissue thickening noted on MRI without other concerning findings. Continue to monitor * Assessment & Plan Note - KATHERINE Escalante CNP - 07/28/2023 5:18 PM EDTAssociated Problem(s): Bulging lumbar disc No bowel or bladder dysfunction, no red flags for cauda equina, MRI showed L5-S1 right-sided disc bulging. Recommend physical therapy and reevaluation of leg discrepancy to make sure lift is correct * Assessment & Plan Note - KATHERINE Escalante CNP - 07/28/2023 5:16 PM EDTAssociated Problem(s): Chronic pain syndrome Continue current pain management plan. Patient to establish with pain management [facility] * Assessment & Plan Note - KATHERINE Escalante CNP - 07/28/2023 5:15 PM EDTAssociated Problem(s): Leg length discrepancy Recommend remeasuring for lift on left side. documented in this encounterSMercy Health West HospitalLlnlim91-69-0579 Evaluation + Plan note* Assessment & Plan Note - KATHERINE Escalante CNP - 07/28/2023 5:22 PM EDTAssociated Problem(s): Osteoporosis Refer to osteoporosis clinic [facility]Sjdqod87-77-2687 Evaluation + Plan note* Assessment & Plan Note - KATHERINE Escalante CNP - 07/28/2023 5:20 PM EDTAssociated Problem(s): Degenerative joint disease (DJD) of lumbar spine Continue current medications, recommend starting physical therapy. [facility] HospitalObolud05-96-5713 Evaluation + Plan note* Assessment & Plan Note - KATHERINE Escalante CNP - 07/28/2023 5:19 PM EDTAssociated Problem(s): Hypertension Uncontrolled. Repeat blood pressure remains elevated 176/83. Patient was advised that she needs to take her amlodipine 5 mg daily. She did not take medication today [facility] HospitalZfuxqq74-83-0453 Evaluation + Plan note* Assessment & Plan Note - KATHERINE Escalante CNP - 07/28/2023 5:19 PM EDTAssociated Problem(s): Mass on back Soft tissue thickening noted on MRI without other concerning findings. Continue to monitor [facility] HospitalYctoyh14-63-1418 Evaluation + Plan note* Assessment & Plan Note - KATHERINE Escalante CNP - 07/28/2023 5:18 PM EDTAssociated Problem(s): Bulging lumbar disc No bowel or bladder dysfunction, no red flags for cauda equina, MRI showed L5-S1 right-sided disc bulging. Recommend physical therapy and reevaluation of leg discrepancy to make sure lift is correct [facility] HospitalZagwxe15-35-1037 Evaluation + Plan note* Assessment & Plan Note - KATHERINE Escalante CNP - 07/28/2023 5:16 PM EDTAssociated Problem(s): Chronic pain syndrome Continue current pain management plan. Patient to establish with pain management [facility] HospitalFngjvt53-00-0852 Evaluation + Plan note* Assessment & Plan Note - KATHERINE Escalante CNP - 07/28/2023 5:15 PM EDTAssociated Problem(s): Leg length discrepancy Recommend remeasuring for lift on left side. [facility] HospitalFjythl74-60-6278 History of Present illness Narrative* Korin Mack - 07/28/2023 3:20 PM EDT Patient was identified by name and Date of . * KATHERINE Escalante CNP - 07/28/2023 3:20 PM EDT Images from the original note were not included. 07/28/2023 Sue Moncada (: 1970) is a 53 y.o. [...] to establish with pain management [facility] 6. Mass on back Assessment & Plan: Soft tissue thickening noted on MRI without other concerning findings. Continue to monitor 7. Osteoporosis, unspecified osteoporosis type, unspecified pathological fracture presence Assessment & Plan: Refer to osteoporosis clinic 8. Primary insomnia Assessment & Plan: Symptoms well-controlled on Lunesta 3 mg nightly as needed for sleep. OARRS reviewed and consistentwith treatment plan. CS MA is in place. Again discussed that [...] female , Established patient, here for the evaluationof the following chief complaint(s): Medication Check Patient presents today for follow-up chronic pain. We are currently bridging her to her pain management doctor. Previously referred to [facility] and [facility] scheduled with [facility] on [facility] 08/10/2023 for pain management to establish. Currently is on Percocet 5-325 mg every 8 hours as needed for severe pain and she also uses medical marijuana at night on the weekends for her pain. Uses tizanidine every 8 hours as needed for muscle spasms. She isaware to avoid use of medications together as [...] completed physical therapy in June 2022 at [facility]. At that time it was not very helpful for her pain Right shoulder-gets injections about every 3 months through [facility]. Last injection about 2 months ago. Insomnia-uses Lunesta 3 mg nightly with good symptom control. Blood pressure this am 130/80 at home- did not take amlodipine this am Prior to Admission medications Medication Sig Start Date End Date Taking? Authorizing Provider amitriptyline (Elavil) 50 MG tablet take 1 tablet by mouth nightly 06/24/23 Yes Jose D Slaughter MD amLODIPine (Norvasc) 5 MG tablet [...] Take immediately before bedtime 07/23/23 08/22/23 Yes Jose D Slaughter MD naloxone (Narcan) 4 mg/0.1 mL nasal [...] capsule (60 mg) by mouth daily. 02/03/23 07/26/23ReKATHERINE Rosa CNP eszopiclone (Lunesta) 3 MG tablet Take [...] CNP 07/28/2023 5:26 PM documented in this [facility]06-10-2024 Telephone encounter Note* Telephone Encounter - KATHERINE Escalante CNP - 07/26/2023 2:04 PM EDT Reviewed chart. Refill appropriate. RX sent. [facility] [id number] Miscellaneous Notes* Telephone Encounter - KATHERINE Escalante CNP - 07/26/2023 2:04 PM EDT Reviewed chart. Refill appropriate. RX sent. * Telephone Encounter - Zee Richardson MA - 07/26/2023 11:38 AM EDT Prescription Request: Last medication check: 11/24/2022 Last physical exam: 03/04/2023 Next scheduled appointment: 07/28/2023 Last date of refill on this medication: 02/03/23 documented in this [facility]06-10-2024 Telephone encounter Note* Telephone Encounter - Zee Richardson MA - 07/26/2023 11:38 AM EDT Prescription Request: Last medication check: 11/24/2022 Last physical exam: 03/04/2023 Next scheduled appointment: 07/28/2023 Last date of refill on this medication: 02/03/23 [facility] HospitalIhjams07-59-1469 Telephone encounter Note* Telephone Encounter - Jose D Slaughter MD - 07/23/2023 1:05 PM EDT Refill sent [facility] HospitalMzlejy03-80-0623 Miscellaneous Notes* Telephone Encounter - Jose D Slaughter MD - 07/23/2023 1:05 PM EDT Refill sent * Telephone Encounter - Rosemary Shoemaker RN - 07/23/2023 11:44 AM EDT S: Patient spoke with [facility] nurse regarding B: Onset of symptoms/concern today-TATO 05/20/23 Next OV 07/28/23. A: Patient requesting refill for eszopiclone (Lunesta) 3 MG tablet. Patient states she is completely out and cannot sleep without it. Patient also sent a My Chart message. Pharmacy and allergies verified/reviewed with patient. R: Spoke with back line office staff stated request for refill was sent to Dr. Slaughter to address after seeing patients. Patient informed. No further needs at this time. Reason for Disposition Prescription refill request for NON-ESSENTIAL medicine (i.e., no harm to patient if med not taken) and triager unable to refill per department policy Protocols used: Medication Refill and Renewal [id number] documented in this encounterSMercy Health West HospitalPnrjdn66-48-5632 Telephone encounter Note* Telephone Encounter - Rosemary Shoemaker RN - 07/23/2023 11:44 AM EDT S: Patient spoke with [facility] nurse regarding B: Onset of symptoms/concern today-TATO 05/20/23 Next OV 07/28/23. A: Patient requesting refill for eszopiclone (Lunesta) 3 MG tablet. Patient states she is completely out and cannot sleep without it. Patient also sent a My Chart message. Pharmacy and allergies verified/reviewed with patient. R: Spoke with back line office staff stated request for refill was sent to Dr. Slaughter to address after seeing patients. Patient informed. No further needs at this time. Reason for Disposition Prescription refill request for NON-ESSENTIAL medicine (i.e., no harm to patient if med not taken) and triager unable to refill per department policy Protocols used: Medication Refill and Renewal [id number] [facility] HospitalXijxab60-07-7073 Telephone encounter Note* Telephone Encounter - Katie Rider RN - 07/23/2023 11:02 AM EDT Reason for Disposition Message left on unidentified voice mail. Phone number verified. Answer Assessment - Initial Assessment Questions , Protocols used: No Contact or Duplicate Contact [id number] [facility] HospitalOavota93-49-8030 Miscellaneous Notes* Telephone Encounter - Katie Rider RN - 07/23/2023 11:02 AM EDT Reason for Disposition Message left on unidentified voice mail. Phone number verified. Answer Assessment - Initial Assessment Questions , Protocols used: No Contact or Duplicate Contact Ovyy-CCSKC-OV documented in this encounterSMercy Health West HospitalBpvaek33-47-6988 Telephone encounter Note* Telephone Encounter - KATHERINE Escalante CNP - 07/13/2023 12:28 PM EDT Reviewed chart. Refill appropriate. Rx sent. Oarrs reviewed and consistent with treatment plan. Patient is to be getting established with pain management provider. [facility] HospitalRlzdkb34-90-0350 Miscellaneous Notes* Telephone Encounter - KATHERINE Escalante CNP - 07/13/2023 12:28 PM EDT Reviewed chart. Refill appropriate. Rx sent. Oarrs reviewed and consistent with treatment plan. Patient is to be getting established with pain management provider. * Telephone Encounter - Zee Richardson MA - 07/13/2023 9:51 AM EDT Last rx was sent in on 07/01/23, please advise. documented in this [facility]05-28-2024 Telephone encounter Note* Telephone Encounter - KATHERINE Escalante CNP - 07/13/2023 10:40 AM EDT Reviewed chart. Refill appropriate. RX sent. [facility] HospitalJjauxa53-65-2354 Miscellaneous Notes* Telephone Encounter - KATHERINE Escalante CNP - 07/13/2023 10:40 AM EDT Reviewed chart. Refill appropriate. RX sent. * Telephone Encounter - Elsa Lawrence MA - 07/13/2023 9:57 AM EDT Prescription Request: Last medication check: 11/24/2022 Last physical exam: 03/04/2023 Next scheduled appointment: 07/28/2023 Last date of refill on this medication: 05/20/2023 documented in this [facility]05-28-2024 Telephone encounter Note* Telephone Encounter - Elsa Lawrence MA - 07/13/2023 9:57 AM EDT Prescription Request: Last medication check: 11/24/2022 Last physical exam: 03/04/2023 Next scheduled appointment: 07/28/2023 Last date of refill on this medication: 05/20/2023 [facility] HospitalKkcxox45-57-4730 Telephone encounter Note* Telephone Encounter - Zee Richardson MA - 07/13/2023 9:51 AM EDT Last rx was sent in on 07/01/23, please advise. [facility] HospitalFtwcsi64-39-4333 Telephone encounter Note* Telephone Encounter - Zee Richardson MA - 06/24/2023 1:42 PM EDT Prescription Request: Last medication check: 05-20-23 Last physical exam: 03-04-23 Next scheduled appoitment: 07-28-23 Last date of refill on this medication 01/04/23 [place] [id number] Miscellaneous Notes* Telephone Encounter - Zee Richardson MA - 06/24/2023 1:42 PM EDT Prescription Request: Last medication check: 05-20-23 Last physical exam: 03-04-23 Next scheduled appoitment: 07-28-23 Last date of refill on this medication 01/04/23 documented in this encounterSMercy Health West HospitalEozhzj02-08-2711 Telephone encounter Note* Telephone Encounter - KATHERINE Escalante CNP - 06/22/2023 12:56 PM EDT Reviewed chart. Refill appropriate. RX sent. [facility] HospitalSeoyrx94-32-0322 Miscellaneous Notes* Telephone Encounter - KATHERINE Escalante CNP - 06/22/2023 12:56 PM EDT Reviewed chart. Refill appropriate. RX sent. * Telephone Encounter - Theresa Vega - 06/22/2023 10:39 AM EDT Prescription Request: Last medication check: 05-20-23 Last physical exam: 03-04-23 Next scheduled appoitment: 07-28-23 Last date of refill on this medication 05-19-22 documented in this [facility]05-07-2024 Telephone encounter Note* Telephone Encounter - Theresaoxana Vega - 06/22/2023 10:39 AM EDT Prescription Request: Last medication check: 05-20-23 Last physical exam: 03-04-23 Next scheduled appoitment: 07-28-23 Last date of refill on this medication 05-19-22 [facility] [id number] Telephone encounter Note* Telephone Encounter - KATHERINE Escalante CNP - 06/08/2023 12:01 PM EDT Addendum made. CT lung DX-screening for lung cancer; tobacco use disorder [facility] HospitalUqyfop27-40-6237 Miscellaneous Notes* Telephone Encounter - KATHERINE Escalante CNP - 06/08/2023 12:01 PM EDT Addendum made. CT lung DX-screening for lung cancer; tobacco use disorder * Telephone Encounter - Elina Rizvi - 06/08/2023 11:29 AM EDT Name of caller: Sue Contact phone number: [phone] Relationship to Patient: patient Provider: Dr. Slaughter Practice: [facility] Chief Complaint/Reason for Call: Pt said when she schedule appt for LUNG SCREENING she advised thatthe reason for the lung screening need to be added to the rx for LUNG SCREENING Best time of day caller can be reached: any Patient advised that office/PCP has 24-48 business hours to return their call: No documented in this [place] [id number] Telephone encounter Note* Telephone Encounter - Elina Rizvi - 06/08/2023 11:29 AM EDT Name of caller: Sue Contact phone number: [phone] Relationship to Patient: patient Provider: Dr. Slaughter Practice: [facility] Chief Complaint/Reason for Call: Pt said when she schedule appt for LUNG SCREENING she advised thatthe reason for the lung screening need to be added to the rx for LUNG SCREENING Best time of day caller can be reached: any Patient advised that office/PCP has 24-48 business hours to return their call: No [place] [id number] History of Present illness Narrative* KATHERINE Escalante CNP - 06/01/2023 1:59 PM EDT Referral placed to [facility]. documented in this [place] [address]-04-2024 Evaluation + Plan note* Assessment & Plan Note - KATHERINE Escalante CNP - 05/20/2023 6:04 PM EDTAssociated Problem(s): Mass on back Patient has enlarging mass on the right thoracic side. Reports increased thoracic and lumbar pain. No significant change in extremity strength or sensation. Will order MRI to further evaluate. Patient does have history of cancer (breast) [place] [id number] Miscellaneous Notes* Assessment & Plan Note - KATHERINE Escalante CNP - 05/20/2023 6:04 PM EDTAssociated Problem(s): Mass on back Patient has enlarging mass on the right thoracic side. Reports increased thoracic and lumbar pain. No significant change in extremity strength or sensation. Will order MRI to further evaluate. Patient does have history of cancer (breast) * Assessment & Plan Note - KATHERINE Escalante CNP - 05/20/2023 6:02 PM EDTAssociated Problem(s): Spondylosis of lumbar spine Patient reports worsening symptoms. Will obtain records from recent Ortho specialist seen in [place]. * Assessment & Plan Note - KATHERINE Escalante CNP - 05/20/2023 6:01 PM EDTAssociated Problem(s): Insomnia Controlled. OARRS reviewed and consistent with treatment plan. Continue Lunesta as directed. * Assessment & Plan Note - KATHERINE Escalante CNP - 05/20/2023 6:00 PM EDTAssociated Problem(s): Chronic pain syndrome Continue current pain management plan. Will try to see if we can find another automotive painter helper that would be able to see her sooner than October 2023. * Assessment & Plan Note - KATHERINE Escalante CNP - 05/20/2023 5:59 PM EDTAssociated Problem(s): Chronic back pain Stable. Continue Percocet [...] using the medications together. documented in this [facility]04-04-2024 Evaluation + Plan note* Assessment & Plan Note - KATHERINE Escalante CNP - 05/20/2023 6:02 PM EDTAssociated Problem(s): Spondylosis of lumbar spine Patient reports worsening symptoms. Will obtain records from recent Ortho specialist seen in [place]. [place] [id number] Evaluation + Plan note* Assessment & Plan Note - KATHERINE Escalante CNP - 05/20/2023 6:01 PM EDTAssociated Problem(s): Insomnia Controlled. OARRS reviewed and consistent with treatment plan. Continue Lunesta as directed. [facility] [id number] Evaluation + Plan note* Assessment & Plan Note - KATHERINE Escalante CNP - 05/20/2023 6:00 PM EDTAssociated Problem(s): Chronic pain syndrome Continue current pain management plan. Will try to see if we can find another automotive painter helper that would be able to see her sooner than October 2023. [place] [id number] Evaluation + Plan note* Assessment & Plan Note - KATHERINE Escalante CNP - 05/20/2023 5:59 PM EDTAssociated Problem(s): Chronic back pain Stable. Continue Percocet [...] risks associated with using the medications together. [facility] [id number] History of Present illness Narrative* Korin Mack - 05/20/2023 2:40 PM EDT Patient was identified by name and Date of . YASMEEN SENT STAT TO [facility]. * KATHERINE Escalante CNP - 05/20/2023 2:40 PM EDT Images from the original note were not included. 05/20/2023 Sue Moncada (: 1970) is a 52 y.o. [...] to see if we can find another automotive painter helper that would be able to see her [...] records from recent Ortho specialist seen in [place]. Follow up for with primary care provider as scheduled. SUBJECTIVE/OBJECTIVE: BRADFORD Moncada (: 1970) is a 52 y.o. female , Established patient, here for the evaluationof the following chief complaint(s): Follow-up and Chronic [...] shoulder injections from a orthopedic doctor in [place] at [facility]. Reports getting a steroid injection in the right shoulder last week. She states she also was seen by a public relations specialist whodid get x-rays and reviewed imaging from [place] where she was from before. She reports her last MRI in [place] of her back was about 5 years [...] good symptom control. Reports this helps with hersleep. Prior to Admission medications Medication Sig Start Date End Date Taking? Authorizing Provider amitriptyline (Elavil) 50 MG tablet Take 1 tablet (50 mg) by mouth Nightly. 01/04/23 Yes Jose D Slaughter MD atorvastatin (Lipitor) 20 MG tablet [...] capsule (60 mg) by mouth daily. 02/03/23 08/02/23Yes KATHERINE Escalante CNP eszopiclone (Lunesta) 3 MG [...] before May 05, 2023. 05/05/23 06/04/23 Yes Jerilakshmi YoungbloodalCHRISTIANON - GARRISON tiZANidine (Zanaflex) 4 MG tablet take 2 tablets by mouth at bedtime if needed 04/13/23 Yes Jeri Bridenthal, REINFORCING METAL WORKER - [place] amLODIPine (Norvasc) 5 MG tablet [...] CNP 05/20/2023 6:07 PM documented in this [facility]04-04-2024 Instructions* Patient Instructions* KATHERINE Escalante CNP - 05/20/2023 2:40 PM EDT Let me know if you do not hear to schedule the MRI in a week documented in this [facility]03-28-2024 Telephone encounter Note* Telephone Encounter - Shannon Wagner MA - 05/13/2023 4:18 PM EDT Scheduled appointment [facility] [id number] Miscellaneous Notes* Telephone Encounter - Shannon Wagner MA - 05/13/2023 4:18 PM EDT Scheduled appointment * Telephone Encounter - Kristi Holloway - 05/13/2023 9:40 AM EDT Name of caller: Sue Contact phone number: [phone] Relationship to Patient: patient Provider: new patient [facility] Chief Complaint/Reason for Call: Sue called asking the office to schedule her an apt and call andleave a msg with the date and time and what doctor it is with. Best time of day caller can be reached: any Patient advised that office/PCP has 24-48 business hours to return their call: no * Telephone Encounter - Shannon Wagner MA - 05/12/2023 12:18 PM EDT Left message for patient to call the office * Telephone Encounter - Serena Mendes - 05/12/2023 8:55 AM EDT Name of Caller: Sue Contact Reason for Appointment: Pt had an appointment previously scheduled with Dr. Gamble on 05/09 but it was cancelled. Pt states she would now like to be seen at the office. Please advise. Office Name: [facility] documented in this [facility]SMer[facility] West [id number] Telephone encounter Note* Telephone Encounter - Kristi Holloway - 05/13/2023 9:40 AM EDT Name of caller: Sue Contact phone number: [phone] Relationship to Patient: patient Provider: new patient Practice: [facility] Chief Complaint/Reason for Call: Sue called asking the office to schedule her an apt and call andleave a msg with the date and time and what doctor it is with. Best time of day caller can be reached: any Patient advised that office/PCP has 24-48 business hours to return their call: no [facility] HospitalNlyamr21-30-6693 Telephone encounter Note* Telephone Encounter - Shannon Wagner MA - 05/12/2023 12:18 PM EDT Left message for patient to call the office [facility] [id number] Miscellaneous Notes* Telephone Encounter - Shannon Wagner MA - 05/12/2023 12:18 PM EDT Left message for patient to call the office * Telephone Encounter - Serena Mendes - 05/12/2023 8:55 AM EDT Name of Caller: Sue Contact Reason for Appointment: Pt had an appointment previously scheduled with Dr. Gamble on 05/09 but it was cancelled. Pt states she would now like to be seen at the office. Please advise. Office Name: [facility] documented in this encounterSMercy Health West [id number] Telephone encounter Note* Telephone Encounter - Serena Mendes - 05/12/2023 8:55 AM EDT Name of Caller: Sue Contact Reason for Appointment: Pt had an appointment previously scheduled with Dr. Gamble on 05/09 but it was cancelled. Pt states she would now like to be seen at the office. Please advise. Office Name: [facility] [id number] Telephone encounter Note* Telephone Encounter - Shannon Wagner MA - 05/03/2023 5:05 PM EDT Called and offered first available explained to patient we are interventional pain management patient stated she will reach out to her pcp [facility] [id number] Miscellaneous Notes* Telephone Encounter - Shannon Wagner MA - 05/03/2023 5:05 PM EDT Called and offered first available explained to patient we are interventional pain management patient stated she will reach out to her pcp * Telephone Encounter - Hailey Garcia - 05/03/2023 11:48 AM EDT Name of caller: Sue Contact phone number: [phone] Relationship to Patient: patient Provider: [facility] Practice: [...] return their call: Yes documented in this encounterSMercy Health West HospitalRpchnw11-72-8905 Telephone encounter Note* Telephone Encounter - Hailey Garcia - 05/03/2023 11:48 AM EDT Name of caller: Sue Contact phone number: [phone] Relationship to Patient: patient Provider: [facility] Practice: [...] business hours to return their call: Yes [facility] HospitalKdxrde21-00-9936 Evaluation + Plan note* Assessment & Plan Note - KATHERINE Escalante CNP - 04/29/2023 6:22 PM EDTAssociated Problem(s): Chronic pain of both upper extremities Recommend following up with orthopedic for right shoulder pain. And seeing if you can get another steroid injection to see if it helps. [place] [id number] Miscellaneous Notes* Assessment & Plan Note - KATHERINE Escalante CNP - 04/29/2023 6:22 PM EDTAssociated Problem(s): Chronic pain of both upper extremities Recommend following up with orthopedic for right shoulder pain. And seeing if you can get another steroid injection to see if it helps. * Assessment & Plan Note - KATHERINE Escalante CNP - 04/29/2023 6:21 PM EDTAssociated Problem(s): Skin pimple Noted on tip of the nose. No significant induration. Recommend warm compresses and continue to monitor. Follow-up for worsening symptoms. * Assessment & Plan Note - KATHERINE Escalante CNP - 04/29/2023 6:20 PM EDTAssociated Problem(s): Acute right-sided low back pain without sciatica Will see if prednisone burst will help with her flareup of her low back pain. No red flags. * Assessment & Plan Note - KATHERINE Escalante CNP - 04/29/2023 6:15 PM EDTAssociated Problem(s): Chronic pain syndrome Stable. Continue Percocet 5-325 mg 1 tablet every 8 hours for severe pain. OARRS reviewed and consistent with treatment plan. Patient is to get established with pain management provider. Her appt is on 05/10/2023. She understands that if she does not establish with this pain management provider thatI will be taper discontinuing the opioid medication as primary care does not typically manage chronic pain. CS MA in place documented in this [facility]03-14-2024 Evaluation + Plan note* Assessment & Plan Note - KATHERINE Escalante CNP - 04/29/2023 6:21 PM EDTAssociated Problem(s): Skin pimple Noted on tip of the nose. No significant induration. Recommend warm compresses and continue to monitor. Follow-up for worsening symptoms. [facility] [id number] Evaluation + Plan note* Assessment & Plan Note - KATHERINE Escalante CNP - 04/29/2023 6:20 PM EDTAssociated Problem(s): Acute right-sided low back pain without sciatica Will see if prednisone burst will help with her flareup of her low back pain. No red flags. [facility] [id number] Evaluation + Plan note* Assessment & Plan Note - KATHERINE Escalante CNP - 04/29/2023 6:15 PM EDTAssociated Problem(s): Chronic pain syndrome Stable. Continue Percocet 5-325 mg 1 tablet every 8 hours for severe pain. OARRS reviewed and consistent with treatment plan. Patient is to get established with pain management provider. Her appt is on 05/10/2023. She understands that if she does not establish with this pain management provider thatI will be taper discontinuing the opioid medication as primary care does not typically manage chronic pain. CS MA in place [facility] [id number] History of Present illness Narrative* Korin Mack - 04/29/2023 3:20 PM EDT Patient was identified by name and Date of . * KATHERINE Escalante CNP - 04/29/2023 3:20 PM EDT Images from the original note were not included. 04/29/2023 Sue Moncada (: 1970) is a 52 y.o. [...] not establish with this pain management provider thatI will be taper discontinuing the opioid medication as primary care does not typically manage chronic pain. MA in place Orders: - oxyCODONE-acetaminophen (Percocet) [...] for 3 days, then take 2 tabs (40mg)daily for 3 days, then take 1 tab [...] it helps. Follow up for 3 month [facility]. SUBJECTIVE/OBJECTIVE: HPI - Sue Moncada (: 1970) is a 52 y.o. female , Established patient, here for the evaluationof the following chief complaint(s): Medication Check and [...] told that it was nothing to worry about.She thinks it might be flared up from recently moving. She moved out of her sister's apartment intoher own efficiency apartment last week. No change [...] pain management may decide that she may benefitfrom a different medication or treatment plan. She [...] (50 mg) by mouth Nightly. 01/04/23 Yes Jose D Slaughter MD atorvastatin (Lipitor) 20 MG tablet Take 1 tablet (20 mg) by mouth Nightly. 03/09/23 Yes Jeri Trinidad APRN - [place] buPROPion XL (Wellbutrin [...] capsule (60 mg) by mouth daily. 02/03/23 08/02/23Yes Jeri Trudy REINFORCING METAL WORKER - [place] eszopiclone (Lunesta) 3 MG tablet Take 1 tablet (3 mg) by mouth Nightly as needed for sleep. Take immediately before bedtime Do not start before April 20, 2023. 04/20/23 05/20/23 Yes Jerilakshmi Trinidad APRN - [place] naloxone (Narcan) 4 mg/0.1 mL nasal spray ADMINISTER A SINGLE spray INTO ONE NOSTRIL repeat in 3 MINUTES IF... (REFER TO PRESCRIPTION NOTES). 03/04/23 Yes Historical Provider, oxyCODONE-acetaminophen (Percocet) 5-325 MG tablet Take 1 tablet by mouth every 8 hours as needed for severe pain (7-10). Do not start before April 04, 2023. 04/04/23 05/04/23 Yes Jeri Abilioenthal REINFORCING METAL WORKER - DIGITAL MEDIA STRATEGIST tiZANidine (Zanaflex) 4 MG tablet take 2 tablets by mouth at bedtime if needed 04/13/23 Yes Jeri Abilioenthal, REINFORCING METAL WORKER - DIGITAL MEDIA STRATEGIST amLODIPine (Norvasc) 5 MG tablet 5 mg. [...] CNP 04/29/2023 6:22 PM documented in this encounterSMercy Health West HospitalOxyksm34-85-1943 Telephone encounter Note* Telephone Encounter - KATHERINE Escalante CNP - 04/13/2023 12:38 PM EST Reviewed chart. Refill appropriate. RX sent. [facility] HospitalYopqyj11-52-2978 Miscellaneous Notes* Telephone Encounter - KATHERINE Escalante CNP - 04/13/2023 12:38 PM EST Reviewed chart. Refill appropriate. RX sent. * Telephone Encounter - Korin Mack - 04/13/2023 11:30 AM EST Prescription Request: Last medication check: 03/31/23 Last physical exam: 03/04/23 Next scheduled appointment: 04/29/23 Last date of refill on this medication 03/04/23 documented in this encounterSMercy Health West HospitalXtvjyo50-55-6709 Telephone encounter Note* Telephone Encounter - Korin Mack - 04/13/2023 11:30 AM EST Prescription Request: Last medication check: 03/31/23 Last physical exam: 03/04/23 Next scheduled appointment: 04/29/23 Last date of refill on this medication 03/04/23 [facility] [id number] Evaluation + Plan note* Assessment & Plan Note - KATHERINE Escalante CNP - 03/31/2023 6:17 PM ESTAssociated Problem(s): Chronic back pain Stable. Continue Percocet [...] she should avoid using those medications together. Patientstates she understands possible risks associated with using the medications together. [facility] HospitalUbgvnu14-88-2418 Miscellaneous Notes* Assessment & Plan Note - KATHERINE Escalante CNP - 03/31/2023 6:17 PM ESTAssociated Problem(s): Chronic back pain Stable. Continue Percocet [...] she should avoid using those medications together. Patientstates she understands possible risks associated with using the medications together. * Assessment & Plan Note - KATHERINE Escalante CNP - 03/31/2023 6:16 PM ESTAssociated Problem(s): Insomnia Controlled. Continue Lunesta as directed. OARRS consistent with treatment plan. Prescription sent with fill date April 20, 2023 documented in this [facility]02-14-2024 Evaluation + Plan note* Assessment & Plan Note - KATHERINE Escalante CNP - 03/31/2023 6:16 PM ESTAssociated Problem(s): Insomnia Controlled. Continue Lunesta as directed. OARRS consistent with treatment plan. Prescription sent with fill date April 20, 2023 [facility] [id number] History of Present illness Narrative* KATHERINE Escalante CNP - 03/31/2023 3:20 PM EST Images from the original note were not included. 03/31/2023 Sue Moncada (: 1970) is a 52 y.o. [...] she should avoid using those medications together. Patientstates she understands possible risks associated with using [...] not start before April 20, 2023., Starting Wed04/20/2023, Until Wed05/20/2023 at 2359, Normal Follow up in about 1 month (around 04/29/2023). SUBJECTIVE/OBJECTIVE: BRADFORD - Sue Moncada (: 1970) is a 52 y.o. female , Established patient, here for the evaluationof the following chief complaint(s): Follow-up (Medication follow [...] (50 mg) by mouth Nightly. 01/04/23 Yes Jose D Slaughter MD amLODIPine (Norvasc) 5 MG tablet [...] capsule (60 mg) by mouth daily. 02/03/23 08/02/23Yes KATHERINE Escalante CNP eszopiclone (Lunesta) 3 MG tablet Take 1 tablet (3 mg) by mouth Nightly as needed for sleep. Take immediately before bedtime 03/04/23 04/03/23 Yes KATHERINE Escalante GARRISON naloxone (Narcan) 4 mg/0.1 mL nasal spray ADMINISTER A SINGLE spray INTO ONE NOSTRIL repeat in 3 MINUTES IF... (REFER TO PRESCRIPTION NOTES). 03/04/23 Yes Historical Provider, oxyCODONE-acetaminophen (Percocet) 5-325 MG tablet Take 1 tablet by mouth every 8 hours as needed for severe pain (7-10). 03/04/23 04/03/23 Yes Jeri Abilioenthal, REINFORCING METAL WORKER - DIGITAL MEDIA STRATEGIST tiZANidine (Zanaflex) 4 MG tablet take 2 tablets by mouth at bedtime if needed 03/04/23 Yes Jeri Bridenthal, REINFORCING METAL WORKER - DIGITAL MEDIA STRATEGIST cyanocobalamin (Vitamin B-12) 1000 MCG/ML injection Inject [...] CNP 03/31/2023 6:22 PM documented in this [email or web address] [id number] Telephone encounter Note* Telephone Encounter - KATHERINE Schmitz - 03/09/2023 11:57 AM EST Pt returned call today but states she doesn't want to schedule her colonoscopy until after she seesa physician/requesting office visit. Gave her GI office number for her to call to make appointment. [facility] Phone: [phone] Miscellaneous Notes* Telephone Encounter - KATHERINE Schmitz - 03/09/2023 11:57 AM EST Pt returned call today but states she doesn't want to schedule her colonoscopy until after she seesa physician/requesting office visit. Gave her GI office number for her to call to make appointment. * Telephone Encounter - KATHERINE Schmitz - 03/02/2023 1:24 PM EST (2nd attempt) Called today to schedule screening colonoscopy (surveillance program) Left message to call colorectal office at [phone] * Telephone Encounter - Yazmin Rodriguez - 02/04/2023 11:27 AM EST Screening Colonoscopy (surveillance program) Called pt today to schedule colonoscopy Left message to call colorectal office at [phone] documented in this [facility]01-23-2024 Telephone encounter Note* Telephone Encounter - Edwige Des - 03/09/2023 11:42 AM EST Name of caller: Sue Contact phone number: [phone] Relationship to Patient: patient Provider: Max[facility] Practice: [facility] Chief Complaint/Reason for Call: Patient states she keeps forgetting to take it. She is not at homeat the moment and thinks she needs a refill. Pharmacy updated in chart. Please advise. Best time of day caller can be reached: Any Patient advised that office/PCP has 24-48 business hours to return their call: N/A [facility] HospitalDqibsu02-88-7775 Miscellaneous Notes* Telephone Encounter - Edwige Nunes - 03/09/2023 11:42 AM EST Name of caller: Sue Contact phone number: [phone] Relationship to Patient: patient Provider: Max[facility] Practice: [facility] Chief Complaint/Reason for Call: Patient states she keeps forgetting to take it. She is not at homeat the moment and thinks she needs a refill. Pharmacy updated in chart. Please advise. Best time of day caller can be reached: Any Patient advised that office/PCP has 24-48 business hours to return their call: N/A * Telephone Encounter - Zee Richardson MA - 03/09/2023 11:40 AM EST Images from the original note were not included. Jeri Trinidad, REINFORCING METAL WORKER - DIGITAL MEDIA STRATEGIST You 19 minutes ago (11:20 AM) RB Ok, we will have her continue current dose of the atorvastatin 20 mg nightly. Does she need a refill? Left a message to return call. * Telephone Encounter - Zee Richardson MA - 03/08/2023 11:40 AM EST Images from the original note were not included. KATHERINE Escalante CNP You 19 minutes ago (11:20 AM) RB Ok, we will have her continue current dose of the atorvastatin 20 mg nightly. Does she need a refill? Left a message to return call. * Telephone Encounter - KATHERINE Escalante CNP - 03/08/2023 11:20 AM EST Ok, we will have her continue current dose of the atorvastatin 20 mg nightly. Does she need a refill? * Telephone Encounter - Zee Richardson MA - 03/08/2023 9:47 AM EST Notified, states she keeps forgetting to take atorvastatin and she needs to get better at that, please advise. * Telephone Encounter - Zee Richardson MA - 03/08/2023 9:46 AM EST ----- Message from KATHERINE Escalante CNP sent at 03/08/2023 9:22 AM EST ----- CBC- platelets very slightly elevated- not concerning, otherwise normal cell counts. CMP- total cholesterol elevated 296, HDL good at 76, Triglycerides elevated at 224, LDL cholesterolelevated at 179. Recommend increasing atorvastatin to 40 mg nightly and rechecking in 4 weeks. Vitamin B12- normal Vit D- low normal- 31 Recommend women's one a day vitamin over the counter daily to keep levels sufficient documented in this [facility]01-23-2024 Telephone encounter Note* Telephone Encounter - Zee Richardson MA - 03/09/2023 11:40 AM EST Images from the original note were not included. KATHERINE Escalante CNP You 19 minutes ago (11:20 AM) RB Ok, we will have her continue current dose of the atorvastatin 20 mg nightly. Does she need a refill? Left a message to return call. [facility] [id number] Telephone encounter Note* Telephone Encounter - Zee Richardson MA - 03/08/2023 11:40 AM EST Images from the original note were not included. KATHERINE Escalante CNP You 19 minutes ago (11:20 AM) RB Ok, we will have her continue current dose of the atorvastatin 20 mg nightly. Does she need a refill? Left a message to return call. [facility] [id number] Telephone encounter Note* Telephone Encounter - KATHERINE Escalante CNP - 03/08/2023 11:20 AM EST Ok, we will have her continue current dose of the atorvastatin 20 mg nightly. Does she need a refill? [facility] [id number] Telephone encounter Note* Telephone Encounter - Zee Richardson MA - 03/08/2023 9:47 AM EST Notified, states she keeps forgetting to take atorvastatin and she needs to get better at that, please advise. [facility] [id number] Telephone encounter Note* Telephone Encounter - Zee Richardson MA - 03/08/2023 9:46 AM EST ----- Message from KATHERINE Escalante CNP sent at 03/08/2023 9:22 AM EST ----- CBC- platelets very slightly elevated- not concerning, otherwise normal cell counts. CMP- total cholesterol elevated 296, HDL good at 76, Triglycerides elevated at 224, LDL cholesterolelevated at 179. Recommend increasing atorvastatin to 40 mg nightly and rechecking in 4 weeks. Vitamin B12- normal Vit D- low normal- 31 Recommend women's one a day vitamin over the counter daily to keep levels sufficient [id number] Telephone encounter Note* Telephone Encounter - Korin Mack - 03/08/2023 8:01 AM EST Faxed referral to osto clinic and sent info to patient via [employer]. [employer] [id number] Miscellaneous Notes* Telephone Encounter - Korin Mack - 03/08/2023 8:01 AM EST Faxed referral to osto clinic and sent info to patient via [employer]. * Telephone Encounter - KATHERINE Escalante CNP - 03/08/2023 6:42 AM EST Referral signed * Telephone Encounter - Korin Mack - 03/05/2023 7:46 AM EST Referral changed. Ready to sign, please send encounter back to me so I can fax. Will need faxed to [phone] once completed. Give patient phone number to contact after signed. * Telephone Encounter - Korin Mack - 03/04/2023 4:59 PM EST I pended the osteo referral and noted [place] location. [facility] - [facility] [address] [facility], [facility] [place] [address] [facility] Medical Office Building [address] [facility], [address] [address] documented in this [facility]SMer[facility] [id number] Telephone encounter Note* Telephone Encounter - KATHERINE Escalante CNP - 03/08/2023 6:42 AM EST [facility]erral signed [id number] Telephone encounter Note* Telephone Encounter - Korin Mack - 03/05/2023 7:46 AM EST Referral changed. Ready to sign, please send encounter back to me so I can fax. Will need faxed to [phone] once completed. Give patient phone number to contact after signed. [facility] [id number] Telephone encounter Note* Telephone Encounter - Korindonta Mack - 03/04/2023 4:59 PM EST I pended the osteo referral and noted [place] location. Below are the 2 locations Leonid has listed. [facility] [address] [facility], [facility] [place] [address] [facility] Medical Office Building [address] [facility], [address] [address] [facility] [id number] Evaluation + Plan note* Assessment & Plan Note - KATHERINE Escalante CNP - 03/04/2023 4:28 PM ESTAssociated Problem(s): Acute bacterial conjunctivitis of right eye (Resolved 03/31/2023) Will treat for possible bacterial conjunctivitis of the right eye. Follow-up for worsening or failure for symptoms to improve [facility] [id number] Miscellaneous Notes* Assessment & Plan Note - KATHERINE Escalante CNP - 03/04/2023 4:28 PM ESTAssociated Problem(s): Acute bacterial conjunctivitis of right eye Will treat for possible bacterial conjunctivitis of the right eye. 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 Continue Lunesta 3 mg nightly as needed. OARRS reviewed and consistent with treatment plan CS MA in place * Assessment & Plan Note - KATHERINE Escalante CNP - 03/04/2023 4:23 PM ESTAssociated Problem(s): Osteoporosis Due to patient's complexity, will refer to osteoporosis clinic * Assessment & Plan Note - KATHERINE Escalante CNP - 03/04/2023 4:22 PM ESTAssociated Problem(s): Hypertension Controlled. Blood pressure 124/79, continue amlodipine 5 mg daily * Assessment & Plan Note - KATHERINE Escalante CNP - 03/04/2023 4:22 PM ESTAssociated Problem(s): Hypercholesterolemia Control unknown, continue atorvastatin 20 mg nightly, check cholesterol levels today * Assessment & Plan Note - KATHERINE Escalante CNP - 03/04/2023 4:20 PM ESTAssociated Problem(s): Depression In remission. Continue amitriptyline 50 mg nightly, Wellbutrin 150 mg daily * Assessment & Plan Note - KATHERINE Escalante CNP - 03/04/2023 4:16 PM ESTAssociated Problem(s): Chronic back pain Stable. Continue Percocet [...] that she does understand this. We also discusseduse of marijuana and increased risk for sedation with her current medications. Advised to monitor for increased sedation and avoid using medications together. Patient states that she understands the p ossible risks associated with using medications together. * Assessment & Plan Note - KATHERINE Escalante CNP - 03/04/2023 4:16 PM ESTAssociated Problem(s): Irritable bowel syndrome Stable. Patient will be seeing tool repair technician documented in this [facility]01-18-2024 Miscellaneous Notes* Assessment & Plan Note - KATHERINE Escalante CNP - 03/04/2023 4:28 PM ESTAssociated Problem(s): Acute bacterial conjunctivitis of right eye (Resolved 03/31/2023) Will treat for possible bacterial conjunctivitis of the right eye. 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 Continue Lunesta 3 mg nightly as needed. OARRS reviewed and consistent with treatment plan CS MA in place * Assessment & Plan Note - KATHERINE Escalante CNP - 03/04/2023 4:23 PM ESTAssociated Problem(s): Osteoporosis Due to patient's complexity, will refer to osteoporosis clinic * Assessment & Plan Note - KATHERINE Escalante CNP - 03/04/2023 4:22 PM ESTAssociated Problem(s): Hypertension Controlled. Blood pressure 124/79, continue amlodipine 5 mg daily * Assessment & Plan Note - KATHERINE Escalante CNP - 03/04/2023 4:22 PM ESTAssociated Problem(s): Hypercholesterolemia Control unknown, continue atorvastatin 20 mg nightly, check cholesterol levels today * Assessment & Plan Note - KATHERINE Escalante CNP - 03/04/2023 4:20 PM ESTAssociated Problem(s): Depression In remission. Continue amitriptyline 50 mg nightly, Wellbutrin 150 mg daily * Assessment & Plan Note - KATHERINE Escalante CNP - 03/04/2023 4:16 PM ESTAssociated Problem(s): Chronic back pain Stable. Continue Percocet [...] that she does understand this. We also discusseduse of marijuana and increased risk for sedation with her current medications. Advised to monitor for increased sedation and avoid using medications together. Patient states that she understands the p ossible risks associated with using medications together. * Assessment & Plan Note - KATHERINE Escalante CNP - 03/04/2023 4:16 PM ESTAssociated Problem(s): Irritable bowel syndrome Stable. Patient will be seeing tool repair technician documented in this [facility]01-18-2024 Miscellaneous Notes* Assessment & Plan Note - KATHERINE Escalante CNP - 03/04/2023 4:28 PM ESTAssociated Problem(s): Acute bacterial conjunctivitis of right eye (Resolved 03/31/2023) Will treat for possible bacterial conjunctivitis of the right eye. 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 Continue Lunesta 3 mg nightly as needed. OARRS reviewed and consistent with treatment plan CS MA in place * Assessment & Plan Note - KATHERINE Escalante CNP - 03/04/2023 4:23 PM ESTAssociated Problem(s): Osteoporosis Due to patient's complexity, will refer to osteoporosis clinic * Assessment & Plan Note - KATHERINE Escalante CNP - 03/04/2023 4:22 PM ESTAssociated Problem(s): Hypertension Controlled. Blood pressure 124/79, continue amlodipine 5 mg daily * Assessment & Plan Note - KATHERINE Escalante CNP - 03/04/2023 4:22 PM ESTAssociated Problem(s): Hypercholesterolemia Control unknown, continue atorvastatin 20 mg nightly, check cholesterol levels today * Assessment & Plan Note - KATHERINE Escalante CNP - 03/04/2023 4:20 PM ESTAssociated Problem(s): Depression In remission. Continue amitriptyline 50 mg nightly, Wellbutrin 150 mg daily * Assessment & Plan Note - KATHERINE Escalante CNP - 03/04/2023 4:16 PM ESTAssociated Problem(s): Chronic back pain Stable. Continue Percocet [...] that she does understand this. We also discusseduse of marijuana and increased risk for sedation with her current medications. Advised to monitor for increased sedation and avoid using medications together. Patient states that she understands the p ossible risks associated with using medications together. * Assessment & Plan Note - KATHERINE Escalante CNP - 03/04/2023 4:16 PM ESTAssociated Problem(s): Irritable bowel syndrome Stable. 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 Continue Lunesta 3 mg nightly as needed. OARRS reviewed and consistent with treatment plan CS MA in place [facility]01-18-2024 Evaluation + Plan note* Assessment & Plan Note - KATHERINE Escalante CNP - 03/04/2023 4:23 PM ESTAssociated Problem(s): Osteoporosis Due to patient's complexity, will refer to osteoporosis clinic [address]18-2024 Evaluation + Plan note* Assessment & Plan Note - KATHERINE Escalante CNP - 03/04/2023 4:22 PM ESTAssociated Problem(s): Hypertension Controlled. Blood pressure 124/79, continue amlodipine 5 mg daily [address]18-[address]24 Evaluation + Plan note* Assessment & Plan Note - KATHERINE Escalante CNP - 03/04/2023 4:22 PM ESTAssociated Problem(s): Hypercholesterolemia Control unknown, continue atorvastatin 20 mg nightly, check cholesterol levels today [address]18-[address]24 Evaluation + Plan note* Assessment & Plan Note - KATHERINE Escalante CNP - 03/04/2023 4:20 PM ESTAssociated Problem(s): Depression In remission. Continue amitriptyline 50 mg nightly, Wellbutrin 150 mg daily [address]18-[address]24 Evaluation + Plan note* Assessment & Plan Note - KATHERINE Escalante CNP - 03/04/2023 4:16 PM ESTAssociated Problem(s): Chronic back pain Stable. Continue Percocet [...] that she does understand this. We also discusseduse of marijuana and increased risk for sedation with her current medications. Advised to monitor for increased sedation and avoid using medications together. Patient states that she understands the p ossible risks associated with using medications together. [facility] [id number] Evaluation + Plan note* Assessment & Plan Note - KATHERINE Escalante CNP - 03/04/2023 4:16 PM ESTAssociated Problem(s): Irritable bowel syndrome Stable. Patient will be seeing tool repair technician [facility] [id number] History of Present illness Narrative* Korin Mack - 03/04/2023 9:00 AM EST Patient was identified by name and Date of . HM: AWV-Today Colon-pended prior Lung screen-pended Dexa screen-pended Mammo-pended [facility] yasmeen * KATHERINE Escalante CNP - 03/04/2023 9:00 AM EST Images from the original note were not included. [facility] [address] [facility] [address] Dept: [phone] Dept Chief Complaint: Sue Moncada is an 52 y.o. female here [...] bowel syndrome Stable. Patient will be seeing tool repair technician Musculoskeletal Osteopetrosis Will refer to osteoporosis clinic due to complexity- needs evaluation of the right side of the bodyas last DEXA scan was performed on the [...] that she does understand this. We also discusseduse of marijuana and increased risk for sedation with her current medications. Advised to monitor for increased sedation and avoid using medications together. Patient states that she understands the p ossible risks associated with using medications together. Relevant [...] 1 drop into the right eye in themorning and 1 drop at noon and 1 drop in the evening and 1 drop before bedtime. Do all this for 7 days. 10 mL 0 No current facility-administered medications for this visit. Also reviewed during this visit: Lives with sister and going ok - is working on getting another apartment on her own when the lease is up in June. 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 Had covid over [employer]. Whole [...] discussed that I will no longer be providingher the opioid prescription thereafter. Advised if she misses her pain management appointment, thatI will be taper discontinuing the opioid as [...] of current healthcare providers: Patient Care Team: Jose D Slaughter MD as PCP - General (Family Medicine) [...] with patient today MPOA - will be brothPuma Cognitive: Cognitive Screening: Mini-Cog Clock Drawing Test [...] kg/m No results found. documented in this [facility]01-18-2024 History of Present illness Narrative* Korin Mack - 03/04/2023 9:00 AM EST Patient was identified by name and Date of . HM: AWV-Today Colon-pended prior Lung screen-pended Dexa screen-pended Mammo-pended [facility] send yasmeen * KATHERINE Escalante CNP - 03/04/2023 9:00 AM EST Images from the original note were not included. [facility] [address] [facility] [address] [facility] [address] Dept: [phone] Dept Chief Complaint: Sue Moncada is an 52 y.o. female here [...] bowel syndrome Stable. Patient will be seeing tool repair technician Musculoskeletal Osteopetrosis Will refer to osteoporosis clinic due to complexity- needs evaluation of the right side of the bodyas last DEXA scan was performed on the [...] that she does understand this. We also discusseduse of marijuana and increased risk for sedation with her current medications. Advised to monitor for increased sedation and avoid using medications together. Patient states that she understands the p ossible risks associated with using medications together. Relevant [...] 1 drop into the right eye in themorning and 1 drop at noon and 1 drop in the evening and 1 drop before bedtime. Do all this for 7 days. 10 mL 0 No current facility-administered medications for this visit. Also reviewed during this visit: Lives with sister and going ok - is working on getting another apartment on her own when the lease is up in June. 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 Had covid over [employer]. Whole [...] discussed that I will no longer be providingher the opioid prescription thereafter. Advised if she misses her pain management appointment, thatI will be taper discontinuing the opioid as [...] of current healthcare providers: Patient Care Team: Jose D Slaughter MD as PCP - General (Family Medicine) [...] with patient today MPOA - will be brothPuma Cognitive: Cognitive Screening: Mini-Cog Clock Drawing Test [...] kg/m No results found. documented in this [facility]01-18-2024 History of Present illness Narrative* Korin Mack - 03/04/2023 9:00 AM EST Patient was identified by name and Date of . HM: AWV-Today Colon-pended prior Lung screen-pended Dexa screen-pended Mammo-pended [facility] yasmeen * KATHERINE Escalante CNP - 03/04/2023 9:00 AM EST Images from the original note were not included. [facility] [address] [place] [address] Dept: [phone] Dept Chief Complaint: Sue Moncada is an 52 y.o. female here [...] bowel syndrome Stable. Patient will be seeing tool repair technician Musculoskeletal Osteopetrosis Will refer to osteoporosis clinic due to complexity- needs evaluation of the right side of the bodyas last DEXA scan was performed on the [...] that she does understand this. We also discusseduse of marijuana and increased risk for sedation with her current medications. Advised to monitor for increased sedation and avoid using medications together. Patient states that she understands the p ossible risks associated with using medications together. Relevant [...] 1 drop into the right eye in themorning and 1 drop at noon and 1 drop in the evening and 1 drop before bedtime. Do all this for 7 days. 10 mL 0 No current facility-administered medications for this visit. Also reviewed during this visit: Lives with sister and going ok - is working on getting another apartment on her own when the lease is up in June. 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 Had covid over [email or web address]. Whole family had it. Dad was in [...] discussed that I will no longer be providingher the opioid prescription thereafter. Advised if she misses her pain management appointment, thatI will be taper discontinuing the opioid as [...] of current healthcare providers: Patient Care Team: Jose D Slaughter MD as PCP - General (Family Medicine) [...] kg/m No results found. documented in this [facility]01-18-2024 Instructions* Patient Instructions* KATHERINE Escalante CNP - 03/04/2023 9:00 AM EST Personalized Preventative Plan for Sue Moncada - 03/04/2021 Medicare offers a range of preventative health benefits. Some of the tests and screenings are paid in full while others may be subject to a deductible, co- insurance, and / or copay. Some of these benefits include a comprehensive review of your medical history including lifestyle, illnesses that mayrun in your family, and various assessments and [...] Recommendations: A preventive eye exam by an eye technician is recommended every 1-2 years to screen for glaucoma, cataracts, macular degeneration, and other eye disorders. A preventive dental visit is recommended every 6 months. Try to get at least 150 minutes of exercise per week or 10,000 steps per day on a pedometer. You need 1200-1500mg of calcium and 5532-5071 international units of vitamin D per day. [...] bicycle or a motorcycle documented in this [facility]01-18-2024 Instructions* Patient Instructions* KATHERINE Escalante CNP - 03/04/2023 9:00 AM EST Personalized Preventative Plan for Sue Monacda - [birth year]04/2021 Medicare offers a range of preventative health benefits. Some of the tests and screenings are paid in full while others may be subject to a deductible, co- insurance, and / or copay. Some of these benefits include a comprehensive review of your medical history including lifestyle, illnesses that mayrun in your family, and various assessments and [...] Recommendations: A preventive eye exam by an eye technician is recommended every 1-2 years to screen for glaucoma, cataracts, macular degeneration, and other eye disorders. A preventive dental visit is recommended every 6 months. Try to get at least 150 minutes of exercise per week or 10,000 steps per day on a pedometer. You need 1200-1500mg of calcium and 6257-8746 international units of vitamin D per day. [...] bicycle or a motorcycle documented in this [facility] [id number] Instructions* Patient Instructions* KATHERINE Escalante CNP - 03/04/2023 9:00 AM EST Personalized Preventative Plan for Sue Moncada - [birth year]/04[birth year]23 Medicare offers a range of preventative health benefits. Some of the tests and screenings are paid in full while others may be subject to a deductible, co- insurance, and / or copay. Some of these benefits include a comprehensive review of your medical history including lifestyle, illnesses that mayrun in your family, and various assessments and [...] Recommendations: A preventive eye exam by an eye technician is recommended every 1-2 years to screen for glaucoma, cataracts, macular degeneration, and other eye disorders. A preventive dental visit is recommended every 6 months. Try to get at least 150 minutes of exercise per week or 10,000 steps per day on a pedometer. You need 1200-1500mg of calcium and 9732-9850 international units of vitamin D per day. [...] bicycle or a motorcycle documented in this [facility]01-18-2024 Note* Addendum Note - Jeri Wilson - 03/04/2023 9:00 AM ESTAddended by: JERI WILSON on: 02/28/2024 01:14 PM Modules accepted: Orders [facility] [id number] Telephone encounter Note* Telephone Encounter - KATHERINE Schmitz - 03/02/2023 1:24 PM EST (2nd attempt) Called today to schedule screening colonoscopy (surveillance program) Left message to call colorectal office at [phone] [place] Phone: [phone] Miscellaneous Notes* Telephone Encounter - KATHERINE Schmitz - 03/02/2023 1:24 PM EST (2nd attempt) Called today to schedule screening colonoscopy (surveillance program) Left message to call colorectal office at [phone] * Telephone Encounter - Yazmin Rodriguez - 02/04/2023 11:27 AM EST Screening Colonoscopy (surveillance program) Called pt today to schedule colonoscopy Left message to call colorectal office at [phone] documented in this encounterSMer[facility] [id number] Telephone encounter Note* Telephone Encounter - KATHERINE Escalante CNP - 02/18/2023 5:17 PM EST Will discuss with patient when she comes in to her next scheduled appointment. [facility] [id number] Miscellaneous Notes* Telephone Encounter - KATHERINE Escalante CNP - 02/18/2023 5:17 PM EST Will discuss with patient when she comes in to her next scheduled appointment. * Telephone Encounter - KATHERINE Escalante CNP - 02/05/2023 1:37 PM EST Called patient to go over recent results of drug screen. She is not available. Left message that piterreina call her on Wednesday and go over the results of her testing. Urine drug screen results obtained on February 03, 2023. +OXY-expected +TCA- expected +THC- unexpected- patient did report using CBD vape nightly cannabidiol + oxycodone combo may incr. 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 documented in this [facility]12-22-2023 Telephone encounter Note* Telephone Encounter - KATHERINE Escalante CNP - 02/05/2023 1:37 PM EST Called patient to go over recent results of drug screen. She is not available. Left message that mahsarosaline call her on Wednesday and go over the results of her testing. Urine drug screen results obtained on February 03, 2023. +OXY-expected +TCA- expected +THC- unexpected- patient did report using CBD vape nightly cannabidiol + oxycodone combo may incr. 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 [place] [id number] Telephone encounter Note* Telephone Encounter - Yazmin Rodriguez - 02/04/2023 11:27 AM EST Screening Colonoscopy (surveillance program) Called pt today to schedule colonoscopy Left message to call colorectal office at [phone] [id number] Miscellaneous Notes* Telephone Encounter - Yazmin Rodriguez - 02/04/2023 11:27 AM EST Screening Colonoscopy (surveillance program) Called pt today to schedule colonoscopy Left message to call colorectal office at [phone] documented in this [facility]SMer[facility] [id number] Evaluation + Plan note* Assessment & Plan Note - KATHERINE Escalante CNP - 02/03/2023 5:27 PM ESTAssociated Problem(s): Insomnia Controlled. Continue Lunesta 3 mg nightly [id number] Evaluation + Plan note* Assessment & Plan Note - KATHERINE Escalante CNP - 02/03/2023 5:27 PM ESTAssociated Problem(s): Hypertension Initial and repeat blood pressure elevated. Increase amlodipine back up to 5 mg daily and continue to monitor blood pressure at home. Please notify office if you have any hypotensive episodes. Or if blood pressure remains above 140/90. [facility] [id number] Miscellaneous Notes* Assessment & Plan Note - KATHERINE Escalante CNP - 02/03/2023 5:27 PM ESTAssociated Problem(s): Insomnia Controlled. Continue Lunesta 3 mg nightly * Assessment & Plan Note - KATHERINE Escalante CNP - 02/03/2023 5:27 PM ESTAssociated Problem(s): Hypertension Initial and repeat blood pressure elevated. Increase amlodipine back up to 5 mg daily and continue to monitor blood pressure at home. Please notify office if you have any hypotensive episodes. Or if blood pressure remains above 140/90. * Assessment & Plan Note - KATHERINE Escalante CNP - 02/03/2023 5:26 PM ESTAssociated Problem(s): Anxiety Stable. Continue amitriptyline 50 mg nightly, Wellbutrin 150 mg daily * Assessment & Plan Note - KATHERINE Escalante CNP - 02/03/2023 5:25 PM ESTAssociated Problem(s): Chronic back pain Stable. Continue Percocet 5-325 mg 1 tablet every 8 hours for severe pain. OARRS reviewed and consistent with treatment plan. Patient is to get established with pain management provider. Advised thatshe must call and schedule with them. We will continue to bridge her medication until she can get established. She understands that if she does not establish with this next pain management provider that I will be taper discontinuing the opioid medication as primary care does not typically manage chronic pain. CS MA in place * Assessment & Plan Note - KATHERINE Escalante CNP - 02/03/2023 5:24 PM ESTAssociated Problem(s): Chronic pain syndrome Stable. Continue Percocet 5-325 mg 1 tablet every 8 hours for severe pain. OARRS reviewed and consistent with treatment plan. Patient is to get established with pain management provider. Advised thatshe must call and schedule with them. We will continue to bridge her medication until she can get established. She understands that if she does not establish with this next pain management provider that I will be taper discontinuing the opioid medication as primary care does not typically manage chronic pain. JESSE HUDSON in place documented in this [facility]12-20-2023 Evaluation + Plan note* Assessment & Plan Note - KATHERINE Escalante CNP - 02/03/2023 5:26 PM ESTAssociated Problem(s): Anxiety Stable. Continue amitriptyline 50 mg nightly, Wellbutrin 150 mg daily [facility] [id number] Evaluation + Plan note* Assessment & Plan Note - KATHEIRNE Escalante CNP - 02/03/2023 5:25 PM ESTAssociated Problem(s): Chronic back pain Stable. Continue Percocet 5-325 mg 1 tablet every 8 hours for severe pain. OARRS reviewed and consistent with treatment plan. Patient is to get established with pain management provider. Advised thatshe must call and schedule with them. We will continue to bridge her medication until she can get established. She understands that if she does not establish with this next pain management provider that I will be taper discontinuing the opioid medication as primary care does not typically manage chronic pain. JESSE HUDSON in place [facility] [id number] Evaluation + Plan note* Assessment & Plan Note - KATHERINE Escalante CNP - 02/03/2023 5:24 PM ESTAssociated Problem(s): Chronic pain syndrome Stable. Continue Percocet 5-325 mg 1 tablet every 8 hours for severe pain. OARRS reviewed and consistent with treatment plan. Patient is to get established with pain management provider. Advised thatshe must call and schedule with them. We will continue to bridge her medication until she can get established. She understands that if she does not establish with this next pain management provider that I will be taper discontinuing the opioid medication as primary care does not typically manage chronic pain. CS MA in place [facility] [id number] History of Present illness Narrative* Korin Mack - 02/03/2023 3:00 PM EST Patient was identified by name and Date of . HM Hep b-declined Awv-will scheduled HIV-declined Colon-pend MMR-declined Covid-declined Tdap-declined Pap-ref to obgyn Zoster-declined Lung-pended Dexa-pended * KATHERINE Escalante CNP - 02/03/2023 3:00 PM EST Images from the original note were not included. 02/03/2023 Sue Moncada (: 1970) is a 52 y.o. female , Established patient, here for evaluation of the following chief complaint(s): Follow-up ASSESSMENT/PLAN: 1. Chronic pain syndrome Assessment & Plan: Stable. Continue Percocet 5-325 mg 1 tablet every 8 hours for severe pain. OARRS reviewed and consistent with treatment plan. Patient is to get established with pain management provider. Advised thatshe must call and schedule with them. We will continue to bridge her medication until she can get established. She understands that if she does not establish with this next pain management provider that I will be taper discontinuing the opioid medication as primary care does not typically manage chronic pain. MA in place Orders: - AMB POC DRUG SCREEN 12, LABSOURCE 2. Insomnia, unspecified type Assessment & Plan: Controlled. Continue Lunesta 3 mg nightly 3. Linear scleroderma - oxyCODONE-acetaminophen (Percocet) 5-325 MG tablet; Take 1 tablet by mouth every 8 hours as needed for severe pain (7-10). Do not start before February 05, 2023., Starting Wed02/05/2023, Until Wed03/07/2023 at 2359, Normal 4. Chronic midline thoracic back pain Assessment & Plan: Stable. Continue Percocet 5-325 mg 1 tablet every 8 hours for severe pain. OARRS reviewed and consistent with treatment plan. Patient is to get established with pain management provider. Advised thatshe must call and schedule with them. We will continue to bridge her medication until she can get established. She understands that if she does not establish with this next pain management provider that I will be taper discontinuing the opioid medication as primary care does not typically manage chronic pain. MA in place Orders: - oxyCODONE-acetaminophen (Percocet) 5-325 MG tablet; Take 1 tablet by mouth every 8 hours as needed for severe pain (7-10). Do not start before February 05, 2023., Starting Wed02/05/2023, Until Wed03/07/2023 at 2359, Normal 5. Primary hypertension Assessment & Plan: Initial and repeat blood pressure elevated. Increase amlodipine back up to 5 mg daily and continue to monitor blood pressure at home. Please notify office if you have any hypotensive episodes. Or if blood pressure remains above 140/90. 6. Colon cancer screening - [facility] Follow up in about 1 month (around 03/06/2023). SUBJECTIVE/OBJECTIVE: HPI - Sue Moncada (: 1970) is a 52 y.o. female , Established patient, here for the evaluationof the following chief complaint(s): Follow-up Patient presents for follow-up for the pain management. 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 we are bridging her until she is established with a new pain managementprovider. A referral was made to [facility] pain management. And she is scheduled in April to establish. Reports that her shoulder is doing ok with the steroid injection of the right shoulder last month. States that the steroid injection would not help her left shoulder that is affected by the scleroderma. Last dose of Percocet this morning. Denies any street drug use however does use, Cbd- vapes- getting from [employer]. Does every night. Prior to Admission medications Medication Sig Start Date End Date Taking? Authorizing Provider amitriptyline (Elavil) 50 MG tablet Take 1 tablet (50 mg) by mouth Nightly. 01/04/23 Yes Jose D Slaughter MD atorvastatin (Lipitor) 20 MG tablet [...] Take immediately before bedtime 01/18/23 02/17/23 Yes Jose D Slaughter MD oxyCODONE-acetaminophen (Percocet) 5-325 MG tablet Take 1 tablet by mouth every 8 hours as needed for severe pain (7-10). 01/06/23 02/05/23 Yes Jeri Trinidad APRN - DIGITAL MEDIA STRATEGIST tiZANidine (Zanaflex) 4 MG tablet take 2 tablets by mouth at bedtime if needed 01/18/23 Yes Jose D Slaughter MD amLODIPine (Norvasc) 5 MG tablet [...] signature was used to authenticate this note. Jeri Trinidad APRN - DIGITAL MEDIA STRATEGIST 02/03/2023 5:28 PM documented in this [facility]12-01-2023 Telephone encounter Note* Telephone Encounter - Barbra Crouch MA - 01/15/2023 10:07 AM EST Spoke to patient and scheduled [facility] [id number] Miscellaneous Notes* Telephone Encounter - Barbra Crouch MA - 01/15/2023 10:07 AM EST Spoke to patient and scheduled * Telephone Encounter - Andrew Vernon Variety Saw Operator - 01/14/2023 2:26 PM EST Name of Caller: Sue Contact Reason for Appointment: New Patient appointment. Patient has a referral with a diagnosis of Chronicpain syndrome, Linear scleroderma, Chronic midline thoracic back pain. Please contact to schedule. Patient states that she does not have good service and to please leave a message. Patient also states that it is okay for the office to get her scheduled and leave the date and time on her voicemail. Office Name: Pain Management documented in this [facility]11-30-2023 Telephone encounter Note* Telephone Encounter - Andrew Vernon [place] - 01/14/2023 2:26 PM EST Name of Caller: Sue Contact Reason for Appointment: New Patient appointment. Patient has a referral with a diagnosis of Chronicpain syndrome, Linear scleroderma, Chronic midline thoracic back pain. Please contact to schedule. Patient states that she does not have good service and to please leave a message. Patient also states that it is okay for the office to get her scheduled and leave the date and time on her voicemail. Office Name: Pain Management [facility] [id number] History of Present illness Narrative* KATHERINE Escalante CNP - 01/06/2023 5:13 PM EST Received call previous prescription was sent to [facility] and they do not have supply available today. New prescription sent to [facility] in [place]. OARRS reviewed and consistent with treatment plan. documented in this [facility]11-22-2023 Evaluation + Plan note* Assessment & Plan Note - KATHERINE Escalante CNP - 01/06/2023 4:52 PM ESTAssociated Problem(s): Irritation of left eye Mild erythema of the inner canthus. No signs or symptoms of infection. No induration. Believe this is just mild irritation from probable friction, recommend warm or cool compress. Follow-up for any worsening symptoms. [facility] [id number] Miscellaneous Notes* Assessment & Plan Note - KATHERINE Escalante CNP - 01/06/2023 4:52 PM ESTAssociated Problem(s): Irritation of left eye Mild erythema of the inner canthus. No signs or symptoms of infection. No induration. Believe this is just mild irritation from probable friction, recommend warm or cool compress. Follow-up for any worsening symptoms. * Assessment & Plan Note - KATHERINE Escalante CNP - 01/06/2023 4:51 PM ESTAssociated Problem(s): Hypertension Initial blood pressure reading elevated. Patient currently has not taken her blood pressure medicine. Reports that she had had hypotensive problem recently and stopped her medication. Patient advisedto decrease amlodipine to half tablet daily. Check blood pressure daily x 2 weeks and send readingsto office for review. * Assessment & Plan Note - KATHERINE Escalante CNP - 01/06/2023 4:48 PM ESTAssociated Problem(s): Chronic pain syndrome Stable. Continue Percocet 5-325 mg 1 tablet every 8 hours for severe pain. OARRS reviewed and consistent with treatment plan. Patient is to get established with pain management provider. Advised thatshe must call and schedule with them. We will continue to bridge her medication until she can get established. She understands that if she does not establish with this next pain management provider that I will be taper discontinuing the opioid medication as primary care does not typically manage chronic pain. CS MA in place documented in this [facility]11-22-2023 Evaluation + Plan note* Assessment & Plan Note - KATHERINE Escalante CNP - 01/06/2023 4:51 PM ESTAssociated Problem(s): Hypertension Initial blood pressure reading elevated. Patient currently has not taken her blood pressure medicine. Reports that she had had hypotensive problem recently and stopped her medication. Patient advisedto decrease amlodipine to half tablet daily. Check blood pressure daily x 2 weeks and send readingsto office for review. [facility] [id number] Evaluation + Plan note* Assessment & Plan Note - KATHERINE Escalante CNP - 01/06/2023 4:48 PM ESTAssociated Problem(s): Chronic pain syndrome Stable. Continue Percocet 5-325 mg 1 tablet every 8 hours for severe pain. OARRS reviewed and consistent with treatment plan. Patient is to get established with pain management provider. Advised thatshe must call and schedule with them. We will continue to bridge her medication until she can get established. She understands that if she does not establish with this next pain management provider that I will be taper discontinuing the opioid medication as primary care does not typically manage chronic pain. CS MA in place [facility] [id number] Telephone encounter Note* Telephone Encounter - Brooke Davis RN - 01/06/2023 4:39 PM EST S: Patient spoke with [facility] nurse regarding medication problem B: Onset of symptoms/concern today A: Patient was ordered oxycodone-acetaminophen (Percocet) 5-325 mg tablets, #90, Refills 0. (Sig: Take 1 tablet by mouth every 8 hours as needed for severe pain (7-10). Medication was originally ordered to [facility] earlier today, they will not have the medication until Wednesday. Patient is requesting the medication be sent to [facility] in [place], [place] instead. .The pharmacy closes today at 8 pm. R: Nurse reached out to the on-call provider, Khang PUENTE, a new RX will be sent to [facility].Nurse notified patient of provider's directives. No further action required. Nurse called [facility] at # , spoke with pharmacist Laura, Percocet RX from today was discontinued as they will not have the med on hand, new RX was sent to [facility] by the provider. Reason for Disposition [1] Caller has URGENT medicine question about med that PCP or specialist prescribed AND [2] triagerunable to answer question Protocols used: Medication Question [id number] [facility] [id number] Miscellaneous Notes* Telephone Encounter - Brooke Davis RN - 01/06/2023 4:39 PM EST S: Patient spoke with [facility] nurse regarding medication problem B: Onset of symptoms/concern today A: Patient was ordered oxycodone-acetaminophen (Percocet) 5-325 mg tablets, #90, Refills 0. (Sig: Take 1 tablet by mouth every 8 hours as needed for severe pain (7-10). Med[facility] earlier today, they will not have the medication until Wednesday. Patient is requesting the medication be sent to [facility] in [place], [place] instead. .The pharmacy closes today at 8 pm. R: Nurse reached out to the on-call provider, Khang PUENTE, a new RX will be sent to [facility].Nurse notified patient of provider's directives. No further action required. Nurse called [facility] at # , spoke with pharmacist Horacio Sanchez RX from today was discontinued as they will not have the med on hand, new RX was sent to [facility] by the provider. Reason for Disposition [1] Caller has URGENT medicine question about med that PCP or specialist prescribed AND [2] triagerunable to answer question Protocols used: Medication Question [id number] documented in this encounterSMercy Health West [id number] Telephone encounter Note* Telephone Encounter - KATHERINE Escalante CNP - 01/06/2023 3:29 PM EST Reviewed chart. Refill appropriate. Rx sent. Oarrs reviewed. Consistent with treatment plan [facility] [id number] Miscellaneous Notes* Telephone Encounter - KATHERINE Escalante CNP - 01/06/2023 3:29 PM EST Reviewed chart. Refill appropriate. Rx sent. Oarrs reviewed. Consistent with treatment plan * Telephone Encounter - Zee Richardson MA - 01/05/2023 1:37 PM EST [facility] 12/07/22 * Telephone Encounter - Nyasia Maldonado - 01/05/2023 1:22 PM EST Images from the original note were not [...] (O) Report Adh: Taking: Long-term: [facility]acy: [id number] Dose History Change Patient Sig: Take 1 tablet by mouth every 8 hours as needed for severe pain (7-10). Ordered on: 12/07/2022 Authorized by: JERI TRINIDAD Dispense: 90 tablet Prior Authorization: Request [...] is out. Please advise. documented in this [facility]11-22-2023 History of Present illness Narrative* Korin Mack - 01/06/2023 3:20 PM EST Patient was identified by name and Date of . * KATHERINE Escalante CNP - 01/06/2023 3:20 PM EST Images from the original note were not included. 01/06/2023 Sue Moncada (: 1970) is a 52 y.o. female , Established patient, here for evaluation of the following chief complaint(s): Follow-up ASSESSMENT/PLAN: 1. Chronic pain syndrome Assessment & Plan: Stable. Continue Percocet 5-325 mg 1 tablet every 8 hours for severe pain. OARRS reviewed and consistent with treatment plan. Patient is to get established with pain management provider. Advised thatshe must call and schedule with them. We [...] problem recently and stopped her medication. Patient advisedto decrease amlodipine to half tablet daily. Check blood pressure daily x 2 weeks and send readingsto office for review. Follow up in about 1 month (around 02/05/2023). SUBJECTIVE/OBJECTIVE: HPI - Sue Moncada (: 1970) is a 52 y.o. female , Established patient, here for the evaluationof the following chief complaint(s): Follow-up Patient presents for follow-up for the pain management. We are bridging her until she is established with a new pain management provider. A referral was made to [facility] pain management. Of note patientonly recently saw the [employer] message to her yesterday to reach out [...] been sewn shut. Denies any drainage or painjust some mild soreness to the inner canthus [...] (50 mg) by mouth Nightly. 01/04/23 Yes Jose D Slaughter MD amLODIPine (Norvasc) 5 MG tablet [...] Take immediately before bedtime 12/21/22 01/20/23 Yes Jeri Trinidad APRN - [place] oxyCODONE-acetaminophen (Percocet) 5-325 MG tablet Take 1 tablet by mouth every 8 hours as needed for severe pain (7-10). 12/07/22 01/06/23 Yes Jeri Bridenthal, REINFORCING METAL WORKER - DIGITAL MEDIA STRATEGIST tiZANidine (Zanaflex) 4 MG tablet take 2 [...] Negative for activity change, appetite change (tolerates onlysmall meals), chills and fever. Eyes: Positive for [...] CNP 01/06/2023 4:52 PM documented in this [facility]11-22-2023 Instructions* Patient Instructions* KATHERINE Escalante CNP - 01/06/2023 3:20 PM EST Schedule with pain management. Please check blood pressure daily and send readings into office via [employer] or call in results. documented in this [facility]11-21-2023 Telephone encounter Note* Telephone Encounter - Zee Richardson MA - 01/05/2023 1:37 PM EST [facility] 12/07/22 [facility] [id number] Telephone encounter Note* Telephone Encounter - Nyasia ValeryYolanda Maldonado - 01/05/2023 1:22 PM EST Images from the original note were not [...] (O) Report Adh: Taking: Long-term: Pharmacy: [id number] - [place], [place] - [address] Med Dose History Change Patient Sig: Take 1 tablet by mouth every 8 hours as needed for severe pain (7-10). Ordered on: 12/07/2022 Authorized by: JERI TRINIDAD Dispense: 90 tablet Prior Authorization: Request [...] so now she is out. Please advise. [facility] [id number] Telephone encounter Note* Telephone Encounter - Edwige Nunes - 01/04/2023 3:28 PM EST Medication name: amitriptyline (Elavil) Medication dosage: 50 mg (Miligrams Monthly quantity needed: 30 How many day supply requestin days Medication route: oral (PO) Medication administration time(s): daily If taking medication PRN, reason for taking medication: N/A If this is a controlled substance do you receive this or any other controlled medication from any other doctor or facility: N/A Ordering provider: maxine Date of last office visit: 12.07.22 Date of next office visit: 01.06.23 Date of last refill: (see medication tab): 10.20.22 Updated/Validated preferred pharmacy: Yes Patient instructed to contact the pharmacy prior to picking up the medication: Yes [email or web address] Miscellaneous Notes* Telephone Encounter - Edwige Nunes - 01/04/2023 3:28 PM EST Medication name: amitriptyline (Elavil) Medication dosage: 50 mg (Miligrams Monthly quantity needed: 30 How many day supply requestin days Medication route: oral (PO) Medication administration time(s): daily If taking medication PRN, reason for taking medication: N/A If this is a controlled substance do you receive this or any other controlled medication from any other doctor or facility: N/A Ordering provider: maxine Date of last office visit: 12.07.22 Date of next office visit: 01.06.23 Date of last refill: (see medication tab): 10.20.22 Updated/Validated preferred pharmacy: Yes Patient instructed to contact the pharmacy prior to picking up the medication: Yes [facility] [id number] Telephone encounter Note* Telephone Encounter - Zee Richardson MA - 12/21/2022 3:26 PM EST CSA 11/24/22 [id number] Miscellaneous Notes* Telephone Encounter - Zee Richardson MA - 12/21/2022 3:26 PM EST CSA 11/24/22 * Telephone Encounter - Fady Clarke - 12/21/2022 3:11 PM EST Medication name: eszopiclone (Lunesta) Medication dosage: 3 mg (Miligrams Monthly quantity needed: 30 How many day supply requestin days Medication route: oral (PO) Medication administration time(s): bedtime (HS) If taking medication PRN, reason for taking medication: Needed for sleep If this is a controlled substance do you receive this or any other controlled medication from any other doctor or facility: N/A Ordering provider: Jeri Trinidad Date of last office visit: 12.07.2022 Date of next office visit: 01.06.2023 Date of last refill: (see medication tab): 11.24.2022 Updated/Validated preferred pharmacy: Yes Patient instructed to contact the pharmacy prior to picking up the medication: Yes documented in this [facility]11-06-2023 Telephone encounter Note* Telephone Encounter - Fady Clarke - 12/21/2022 3:11 PM EST Medication name: eszopiclone (Lunesta) Medication dosage: 3 mg (Miligrams Monthly quantity needed: 30 How many day supply requestin days Medication route: oral (PO) Medication administration time(s): bedtime (HS) If taking medication PRN, reason for taking medication: Needed for sleep If this is a controlled substance do you receive this or any other controlled medication from any other doctor or facility: N/A Ordering provider: Jeri Trinidad Date of last office visit: 12.07.2022 Date of next office visit: 01.06.2023 Date of last refill: (see medication tab): 11.24.2022 Updated/Validated preferred pharmacy: Yes Patient instructed to contact the pharmacy prior to picking up the medication: Yes [id number] Telephone encounter Note* Telephone Encounter - KATHERINE Escalante CNP - 12/01/2022 6:15 AM EDT Sabrina Tineo MD [facility] [address] [place] [address] This looks like who she saw on 11/18/2022 [facility] [id number] Miscellaneous Notes* Telephone Encounter - KATHERINE Escalante CNP - 12/01/2022 6:15 AM EDT Sabrina Tineo MD [facility] [address] [place] [address] This looks like who she saw on 11/18/2022 * Telephone Encounter - Korindonta Mack - 11/30/2022 11:05 AM EDT Called patient no answer LVM to call office back. My chart message sent. If patient calls back please give patient message from Vi. * Telephone Encounter - KATHERINE Escalante CNP - 11/26/2022 5:46 PM EDT Please call patient and let her know that I recommend that she go back to the last automotive painter helper that she saw - Dr. Tineo and work with them to come up with a pain management plan, otherwise she may have difficulty being seen by any pain provider. documented in this [facility]SMer[facility] [id number] Telephone encounter Note* Telephone Encounter - Korindonta Mack - 11/30/2022 11:05 AM EDT Called patient no answer LVM to call office back. My chart message sent. If patient calls back please give patient message from Vi. [facility] [id number] Telephone encounter Note* Telephone Encounter - KATHERINE Escalante CNP - 11/26/2022 5:46 PM EDT Please call patient and let her know that I recommend that she go back to the last automotive painter helper that she saw - Dr. Tineo and work with them to come up with a pain management plan, otherwise she may have difficulty being seen by any pain provider. [facility] [id number] Evaluation + Plan note* Assessment & Plan Note - KATHERINE Escalante CNP - 11/24/2022 5:30 PM EDTAssociated Problem(s): Linear scleroderma Obtain records. Consider reaching out to [facility] to see what specialists are available in this area to assist with further management [facility] [id number] Miscellaneous Notes* Assessment & Plan Note - KATHERINE Escalante CNP - 11/24/2022 5:30 PM EDTAssociated Problem(s): Linear scleroderma Obtain records. Consider reaching out to [facility] to see what specialists are available in this area to assist with further management * Assessment & Plan Note - KATHERINE Escalante CNP - 11/24/2022 5:26 PM EDTAssociated Problem(s): Insomnia Discussed risks and benefits of continuing Lunesta. JESSE MA obtained. OARRS reviewed and consistent with treatment plan. * Assessment & Plan Note - KATHERINE Escalante CNP - 11/24/2022 5:23 PM EDTAssociated Problem(s): Chronic pain syndrome Advised patient that we do not treat chronic pain however I will provide a 7-day prescription of oxycodone acetaminophen 5-3 25 every 8 hours as needed for severe pain to help with her pain while sheis establishing with a new pain management provider. Advised that I will not be able to provide anyfurther prescriptions and that she needs to get established with a pain management provider for herchronic pain. documented in this [facility]10-10-2023 Evaluation + Plan note* Assessment & Plan Note - KATHERINE Escalante CNP - 11/24/2022 5:26 PM EDTAssociated Problem(s): Insomnia Discussed risks and benefits of continuing Lunesta. JESSE HUDSON obtained. OARRS reviewed and consistent with treatment plan. [facility] [id number] Evaluation + Plan note* Assessment & Plan Note - KATHERINE Escalante CNP - 11/24/2022 5:23 PM EDTAssociated Problem(s): Chronic pain syndrome Advised patient that we do not treat chronic pain however I will provide a 7-day prescription of oxycodone acetaminophen 5-3 25 every 8 hours as needed for severe pain to help with her pain while sheis establishing with a new pain management provider. Advised that I will not be able to provide anyfurther prescriptions and that she needs to get established with a pain management provider for herchronic pain. [facility] [id number] History of Present illness Narrative* Korin Mack - 11/24/2022 9:00 AM EDT Patient was identified by name and Date of . YASMEEN sent to Finn in [facility] and to Abraham at [facility] * KATHERINE Escalante CNP - 11/24/2022 9:00 AM EDT Images from the original note were not included. 11/24/2022 Sue Moncada (: 1970) is a 52 y.o. [...] for sleep. Take immediately before bedtime, Starting e 11/24/2022, Until Khushi 12/24/2022 at 2359, Normal 2. Linear scleroderma Assessment & Plan: Obtain records. Consider reaching out to [facility] to see what specialists are available in this area to assist with further management Orders: - oxyCODONE-acetaminophen (Percocet) 5-325 MG tablet; Take 1 tablet by mouth every 8 hours as needed for severe pain (7-10) for up to 7 days., Starting Wed11/24/2022, Until e 12/01/2022 at 2359, Normal 3. Chronic midline thoracic [...] pain to help with her pain while sheis establishing with a new pain management provider. Advised that I will not be able to provide anyfurther prescriptions and that she needs to get established with a pain management provider for herchronic pain. Patient with a very complex medical history. Will obtain records and further review. Consider reaching out to [facility] for resources for adult care for patients with linear scleroderma. Follow up in about 2 weeks (around 12/08/2022) for Recheck. SUBJECTIVE/OBJECTIVE: HPI - Sue Moncada presents as new patient, previous primary care provider [facility], last seen last week- was discharged for argumentative behavior, by previous provider. Specialists/other providers? Yes, describe: pain management- Katelyni, [facility] [place]. Chief complaint(s): New Patient and Establish Care (/) Presents today to establish care. Patient was living in [place] from 2010- 2021, grew up in [place]. Moved back to [place] to be near family after her boyfriend of greater than 15 years and she was living alone in [place] and her family wanted her to be closer. Has complex medical history. 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 Was on long-term prednisone during that time and has osteoporosis. Has a lot of complications due to the scleroderma, including chronic pain of both extremities upper and lower. The scleroderma affected her entire left side of the body and her right foot and ankle. 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 Has lost all of her teeth dueto the long-term prednisone. Has been established with pain management for a long time in [place] and has been having difficulty continuing her previous pain regimen with providers in [place]. Reports her pain was not being well managed and she was treating herself with CBD and the urine tested positive for THC? And she states that she was discharged from pain management. Has been having increased pain in her right hip and was seeing AN orthopedic, Dr. Casey in [place]. Reports he was doing injections for bursitis [...] level: Not on file Occupational History Comment: [employer] Tobacco Use Smoking status: Every Day Packs/day: 1.00 Years: 35.00 Additional pack years: 0.00 Total pack years: 35.00 Types: Cigarettes Smokeless tobacco: Never Vaping Use Vaping Use: Never used Substance and Sexual Activity Alcohol use: Not Currently Drug use: Not Currently Comment: CBD with THC Sexual activity: Defer Other Topics Concern Not on file Social History Narrative Lives Came back to [place] last July 2021, from [place] since 2010.boyfriend about 7 years ago, (were together 15 yrs). Adopted parents sold where she was living and so she moved back here. Adopted parents live up here and biological family. Linear scleroderma since age 6. 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 11/21/21 HistoricalProvider, HYDROcodone-acetaminophen (Xodol) 7.5-300 MG tablet tablet Take [...] 1 Application in the evening. 10/27/21 Historical ProviderMD Review of Systems Constitutional: Positive for fatigue. Negative for activity change, appetite change (tolerates onlysmall meals), chills and fever. Eyes: Positive for [...] CNP 11/24/2022 5:31 PM documented in this [facility]10-10-2023 Instructions* Patient Instructions* KATHERINE Escalante CNP - 11/24/2022 9:00 AM EDT I will provide a 7 day supply of pain medication at previous dose. Recommend using lowest effectivedosing. documented in this [facility]10-04-2023 NoteHNO ID: [id number] Author: Sabrina Tineo MD Service: ? Author Type: Physician Type: Progress Notes Filed: 11/18/2022 4:01 PM Note Text: Sabrina Tineo MD Pain Management Pain Management [facility] [address] [id number] Dept: [phone] New Patient Chronic Pain Consult Note Date: 11/18/2022 3:06 PM Referring physician: self This consult was requested by Self for my medical opinion. My final recommendations will be communicated to the referring physician by way of the shared medical record for internal providers or by letter via the [employer] for external providers. Nursing Assessment: [...] No Comment: Marijuana laced brownies at a constitution party by accident Allergies: Allergies: Duloxetine Other: [...] headaches CARDIOVASCULAR: Any history of cardiac arrhythmias, [place], prior CVA, or heart failure? No GASTROINTESTINAL: [...] She states she moved to [place] from [place]. She was seeing a PM near [place] since 09/2021. She received an injection with Ortho with benefit. She states she has been on percocet 7.5 mg for (more content not included)...[facility]10-04-2023 Instructions* Patient Instructions* Sabrina Tineo MD - 11/18/2022 3:41 PM EDT Complete x-rays Establish care with Dr. Aldana [phone] documented in this [facility]Dunlap [facility] Hospital10-04-2023 History of Present illness Narrative* Sabrina Tineo MD - 11/18/2022 3:06 PM EDT Images from the original note were not included. Sabrina Tineo MD Pain Management Pain Management [facility] [address] [id number] Dept: [phone] New Patient Chronic Pain Consult Note Date: 11/18/2022 3:06 PM Referring physician: self This consult was requested by Self for my medical opinion. My final recommendations will be communicated to the referring physician by way of the shared medical record for internal providers or by letter via the [employer] for external providers. Nursing Assessment: [...] No Comment: Marijuana laced brownies at a constitution party by accident Allergies: Allergies: Duloxetine Other: [...] headaches CARDIOVASCULAR: Any history of cardiac arrhythmias, [place], prior CVA, or heart failure? No GASTROINTESTINAL: [...] and leg pain plus right shoulder, right hipand right leg/hip pain. She has a history of left UE and LLE scleroderma. The pain is sharp and electrifying. The pain ranges from 9-10/10. Sanding walking, seating aggravates the pain. She states she moved to [place] from [place]. She was seeing a PM near [place] since 09/2021. She received an injection with Ortho with benefit. She states she has been on percocet 7.5 mg for 25 years prior to coming to [place]. Her local PM provider has tried xtempza and percocet 5-325 mg. She is a current smoking cigarettes. She is currently on tizanidine, and elevil. Patient states she was recently dischargedfrom Dr. Rosario's office due to asking for an increase in the percocet. UDS 10/07/2021 positive oxycodone and cannabinoids. Patient admits to using a topical CBD cream. She states the she has injection in her spine many years ago that were beneficial. [facility] and [facility] [place]. Per [place] PM notes, patient was discharged from [facility] 2020 due to overtaking her medication. Patient today is asking for refills on percocet (7.5 mg) and lunesta. Patient states her previous PM physical and PCP are refusing to fill he medications and have directed her to the ED. 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 Thepain is in right shoulder, left forearm, bilateral [...] of clinic before discussion was complete. Patient iswelcome to return to our clinic in the [...] and wish to discuss any issues directly withme, please feel free to obtain one. 3. [...] the discretion of your PCP/referring physician. The [facility] EMR was reviewed during the [...] which included preparing to see the patient, rxko-ci-ktvf patient care, completing clinical documentation, obtaining and/or reviewing separately obtained history, performing a medically appropriate examination, counseling and educating the pat ient/family/caregiver, and ordering medications, tests, or procedures. documented in this encounterDunlap [facility] Hospital09-06-2023 Evaluation + Plan note Future Scheduled Tests Laboratory* Thyroid Stimulating Hormone 10/21/22 * Complete Blood Count 10/21/22 * Lipid Profile 10/21/22 * Vitamin D Level 10/21/22 * Complete Metabolic Panel 10/21/22 [facility] 03-30-2023 Hospital Discharge instructions Patient Education 05/13/2022 22:16:20 [...] Document Reviewed: 02/02/2014 ExitCare Patient Information 2015 [employer]. This information is not intended to replace advicegiven to you by your health care provider. Make sure you discuss any questions you have with your health care provider. Follow Up Care 05/13/2022 21:47:45 With:SOLIS SHELL Address: [address] [place] [phone] When:2-4 days [facility] 03-29-2023 Emergency department Discharge summary Discharge Instructions Thank you for allowing [facility] to assist you with your healthcare needs. The following is importantdischarge information regarding your hospital visit. Diagnosis from Today's Visit Arm abrasion, complicated What to Do Next Instructions from Your Care Team No qualifying data available. Post Acute Orders No qualifying data available. You Need to Schedule the Following Appointments Follow Up with SOLIS SHELL When Within 2-4 days Where: [address] [place] [phone] Allergies Cymbalta ([place]) traMADol (Unknown) traZODone ([place]) Medications Please ask your primary doctor or pharmacist before taking any other medication not listed, including over the counter drugs, herbal medications, vitamins and or supplements as they may interact withyour home medications. What How Much When Why [...] 02/01/2006 Document Revised: 01/18/2013 Document Reviewed: 02/02/2014 [facility] Patient Information 2015 [employer] [facility]. This information is not intended to replace advicegiven to you by your health care provider. Make sure you discuss any questions you have with your health care provider. Additional Information VACCINATE! IT SAVES LIVES! Members of the community who have not yet received the COVID-19 vaccine and would like to receive it can visit one of [facility] vaccine clinics. There are many vaccine clinic locations within the [facility]. For locations and available times, please visit www.gettheshot.coronavirus.[place].gov/. It is important to note that some COVID mobile vaccine clinics are held outdoors and may be canceled in rainy or stormy conditions. To learn more about pediatric vaccinations (ages 5-11), we invite you to visit the [facility] webpage. https://www.[employer]N Technolog[employer].org/pages/[email or web address]-Gxqeu-[email or web address] stions.htmlTo learn more about the COVID-19 vaccine, we invite you to visit the CDC website for a list of frequently asked questions. https://www.cdc.gov/coronavirus/2019-ncov/vaccines/faq.html [facility] Patient Portal Access Instructions: Stay connected with your healthcare team and access your personal medical information anytime with the [facility] Patient Portal. If you would like a full copy of your medical records please contact the [facility] Medical Records Department Wednesday through Wednesday between 8a.m. and 4:30p.m. Please follow the directions below to access the portal: 1.Access the email account you provided upon registration to the [facility].2.Look for an invitation email from [facility].3.Open the email and access the invitation link: Accept Invitation to [facility]4.Fill in the required mariano to create your account. Sign into [email or web address] with your username and password that you [...] you will allow to register on the [facility] Patient Portal for access to your information. You can also access the [facility] Patient Portal on the [employer] maria ines. Simply click on Health Records under [employer] and then click on the [employer] logo. HOW TO SAFELY DISPOSE OF PRESCRIPTION MEDICATIONS Please use one of the following methods to safely dispose of your unused medications. 1.Use a drug disposal kit: the drug disposal pouch allows you to safely discard your old and unuseddrugs. Ask your nurse to give you one when you are discharged.2.Visit a local take-back location: Many local pharmacies and police departments have programs that collect old and unwanted prescriptiondrugs. Call your local pharmacy or go to http://SnowGate.Cymtec Systems/9Q3Qm2z to find one close to you.3.Make use of household items: Use cat litter or old coffee grounds to dispose medications if other options arenot available. Mix your drugs with these household products, seal them in an airtight container andthrow it into the garbage. Call [facility]: [phone] to be sure your drugs can be [...] drowsiness, such as benzodiazepines, also known as benzos,including diazepam and alprazolam, muscle relaxants or sleep aids. Never sell or share prescriptionopioids. This is illegal. Store opioids in a secure place and out of reach of others (including children, family, friends and visitors). The last page(s) of this document has been signed and retained as a CHART COPY Signatures Patient Education Materials AA Blank DI(CUSTOM) Medication Leaflets My discharge plan and instructions have been reviewed and explained to me and I,SUE MONCADA understand my current condition and have read and understand these discharge instructions. I have received a written copy of the plan/instructions. If I have questions, I am aware that I should contact my doctor. Patient/Internal Audit Senior Manager Signature: Date/Time: Relationship to Patient: Witness Name/Signature: Date/Time: [facility]03-23-2023 Hospital Discharge instructions Patient Education 05/07/2022 14:41:09 Skin Abscess, Dzyq-oq-Xgco Skin Abscess A skin abscess is an [...] Follow these instructions at home: Medicines Take evxz-bpd-ouptbcm and prescription medicines only as told by [...] bandage or gauze. If you cannot use soapand water, use hand highway painter helper. Check your abscess every day for signs that the infection is getting worse. Check for: ?More redness, swelling, or pain. ?More fluid or blood. ?Warmth. ?More pus or a bad smell. General instructions To avoid spreading the infection: ?Do not share personal care items, towels, or hot tubs with others. ?Avoid making tygp-mb-ppxh contact with other people. Keep all follow-up [...] Document Reviewed: 03/17/2018 Elsevier Patient Education 2020 [employer] Follow Up Care 05/02/2022 02:51:26 With:[facility] has been arranged for you. They should call to schedule today for first appointment, if you do not hear from them or have any questions or concerns please call [phone] Address:Unknown When:1-2 days With:SOLIS SHELL Address: [address] [place] [address]- Business (1) When:1-2 days Comments:Please call the office to schedule a follow up appointment With:PATRICK RUTLEDGE Address: [facility] [id number] [place] [address]- Business (1) When:1-2 days Comments:please follow up within 2 weeks [facility] 03-23-2023 Nurse Progress note This nurse has reviewed and agrees with Lillie Fernández student's charting and all medications wereverified prior to administration. Digitally Signed by Beth Leach RN on 05/07/2022 03:28 PM [id number] Note Discharge Instructions Thank you for allowing [facility] to assist you with your healthcare needs. The following is importantdischarge information regarding your hospital visit. Your Care Team SOLIS SHELL Your Diagnosis Insomnia What to do next Instructions From Your Doctor Continue antibiotics through PICC line- plan for fdc antibiotics until May 22, 2022 with weekly labs including CMP and CBC and ESR. Please follow up with Infectious disease in 2 weeks. Follow up with your PCP and the orthopedic clinic that you are established with Return to the ED/present to [facility] for new or worsening symptoms. Scheduled Follow-Up Appointments Appointment Type When With Where Contact InformationPM OV 05/25/2022 10:45 AM SHRAVAN ESCALERA [facility] OV Controlled Medication 06/12/2022 02:00 PM EDT SOLIS SHELL [facility] Follow Up Appointments Follow Up with [facility] has been arranged for you. They should call to schedule today for first appointment, if you do not hear from them or have any questionsor concerns please call [phone] When Within 1-2 days Follow Up with SOLIS SHELL When Within 1-2 days Why: Please call the office to schedule a follow up appointment Where: [address] [facility] [place] [address]- (1) Follow Up with PATRICK RUTLEDGE When Within 1-2 days Why: please follow up within 2 weeks Where: [facility] [id number] [place] [address]- Business (1) The Following Activity and Diet [...] and or supplements as they may interact withyour home medications. What How Much When Why Instructions Last Dose New amLODIPine (amLODIPine 5 mg oral tablet) 1 tab(s) by mouth Once a day Duration: 30 Days Pickup at [facility] New ertapenem (Invanz 1 g (Disch Rx)) 1 gram(s) IV Piggyback Once a day New lactobacillus acidophilus and bulgaricus (lactobacillus acidophilus and bulgaricus oral tablet) 1 tab(s) by mouth Three (3) times a day Duration: 10 Days Pickup at [facility] 1811 Unchanged acetaminophen-oxyCODONE (acetaminophen-oxycodone 325 mg-7.5 mg [...] MISCellaneous) See instructions Osteoarthritis of right hip RAMESHAHER TENS UNIT E 0730 reducing chronic intractable [...] by mouth Daily at bedtime Pharmacy Information [facility] 181: [address] [place], [place] [id number] [phone] What How Much When Comments Stop Taking [...] Follow these instructions at home: Medicines Take uqmp-hau-nplyyyg and prescription medicines only as told by [...] cannot use soap and water, use hand highway painter helper. Check your abscess every day for signs that the infection is getting worse. Check for: ? More redness, swelling, or pain. ? More fluid or blood. ? Warmth. ? More pus or a bad smell. General instructions To avoid spreading the infection: ? Do not share personal care items, towels, or hot tubs with others. ? Avoid making dkxw-cu-asvh contact with other people. Keep all follow-up [...] Document Reviewed: 03/17/2018 Elsevier Patient Education 2020 [employer] Additional Information VACCINATE! IT SAVES LIVES! Members of the community who have not yet received the COVID-19 vaccine and would like to receive it can visit one of [facility] vaccine clinics. There are many vaccine clinic locations within the [facility]. For locations and available times, please visit https://gettheshot.coronavirus.[place].gov/. It is important to note that some COVID mobile vaccine clinics are held outdoors and may be canceled in rainy or stormy conditions. To learn more about pediatric vaccinations (ages 5-11), we invite you to visit the [facility] webpage. https://[email or web address].org/[email or web address]-[email or web address]-Qjzwdlthzx-[email or web address] stions.htmlTo learn more about the COVID-19 vaccine, we invite you to visit the CDC website for a list of frequently asked questions. https://www.cdc.gov/coronavirus/2019-ncov/vaccines/faq.html [facility] Patient Portal Access Instructions: Stay connected with your healthcare team and access your personal medical information anytime with the [facility] Patient Portal.If you would like a full copy of your medical records, please contact the [facility] Medical Records Department, Wednesday through Wednesday between 8a.m. and 4:30p.m. Please follow the directions below to access the portal: 1.Access the email account you provided upon registration to the hospital.2.Look for an invitation email from [facility].3.Open the email and access the invitation link: Accept Invitation to [facility]4.Fill in the required mariano to create your account. Sign into [email or web address] with your username and password that you [...] you will allow to register on the [employer] Patient Portal for access to your information. You can also access the [employer] Patient Portal on the [employer] maria ines. Simply click on Health Records under [employer] and then click on the [employer] logo. HOW TO SAFELY DISPOSE OF PRESCRIPTION MEDICATIONS Please use one of the following methods to safely dispose of your unused medications. 1.Use a drug disposal kit: the drug disposal pouch allows you to safely discard your old and unuseddrugs. Ask your nurse to give you one when you are discharged.2.Visit a local take-back location: Many local pharmacies and police departments have programs that collect old and unwanted prescriptiondrugs. Call your local pharmacy or go to http://SnowGate.[employer] Systems/1A5Qn3s to find one close to you.3.Make use of household items: Use cat litter or old coffee grounds to dispose medications if other options arenot available. Mix your drugs with these household products, seal them in an airtight container andthrow it into the garbage. Call [facility]: [phone] to be sure your drugs can be [...] COPY. Signatures Patient Education Materials Skin Abscess, Fewn-rb-Hqbq Medication Leaflets My discharge plan and instructions have been reviewed and explained to me and I,SUE MONCADA M understand my current condition and have read and understand these discharge instructions. I have received a written copy of the plan/instructions. If I have questions, I am aware that I should contact my doctor. Patient/Internal Audit Senior Manager Signature: Date/Time: Relationship to Patient: Witness Name/Signature: Date/Time: [id number] Discharge summary Date of Service 05/07/2022 Discharge [...] anemia, tobacco abuse who initially presented to [facility] on 04/29/2022 with complaints of left arm pain and cellulitis. Patient developed an ulcer on her forearm several days prior. Patient was seen by her PCP and prescribed Keflex with worsening symptoms. On arrival to [facility], patient was started on broad-spectrum antibiotics. An [...] Several hospitals were contacted for transfer including [place] [facility], [facility], [facility], [facility], [facility] orthopedics and [facility] who were unable to take the patient. Patient was therefore transferred to [facility] for further evaluation. While at [facility], blood work remained stable, hemoglobin 10.2. BMP [...] Continue antibiotics through PICC line- plan for fdc antibiotics until May 22, 2022 with weekly labs including CMP and CBC and ESR. Please follow up with Infectious disease in 2 weeks. Follow up with your PCP and the orthopedic clinic that you are established with Return to the ED/present to [facility] for new or worsening symptoms. Medications [...] for 90 Days. Refills: 3. DME (DME MISCellaneous)SureFireER TENS UNIT E 0730 reducing chronic intractable [...] intravenous injection) Follow Up Follow Up with [facility] has been arranged for you. They should call to schedule today for first appointment, if you do not hear from them or have any questionsor concerns please call [phone] When Within 1-2 days Follow Up with SOLIS SHELL When Within 1-2 days Why: Please call the office to schedule a follow up appointment Where: [address] [facility] [place] [address]- Business (1) Follow Up with PATRICK RUTLEDGE When Within 1-2 days Why: please follow up within 2 weeks Where: [facility] [id number] [place] [address]- Business (1) Follow Up Appointments No qualifying [...] HAMILTON FLEMING MD on 05/07/2022 02:31 PM [id number] Note IR Procedure Record Summary Primary Physician: Finalized Date/Time: 05/07/22 10:03:49 Pt. Name: CORAL SUE Oakes D.O.B./Sex: 1970 Female Med Rec #: [id number] Physician: ALEXIS JAMES MD Financial #: [id number] Pt. Type: I Room/Bed: [facility]/A Admit/Disch: 05/02/22 02:48:29 - Institution: Allergies identified [...] - IR Entry 1 Case Information Room [facility] 17 Case Level IR Level 2 Wound [...] IR Entry 1 Implant/Explant Implant Implant Description [id number] Wasted? Yes Lot Number [id number] Stock Worker medComp Size 6F x 25 cm Expiration [...] Radiology - Action Plan Outcomes Met? 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 [facility] RT-R() Equipment Maintenance Technician Finalized By: Sue Sweet Document Signatures Signed By: WILLIAM Campbell 05/06/22 16:18 Sue Sweet 05/07/22 10:03 [id number] Note Date of Service 05/06/22 Chief Complaint left arm cellulitis Subjective 51-year-old female with past medical history of scleroderma in the process of following with rheumatology, neuropathy, hyperlipidemia, chronic back pain follows with pain management, osteoporosis, degenerative joint disease, anemia, tobacco abuse who initially presented to [facility] on 04/29/2022 with complaints of left arm pain and cellulitis. Patient developed an ulcer on her forearm several days prior. Patient was seen by her PCP and prescribed Keflex with worsening symptoms. On arrival to [facility], patient was started on broad-spectrum antibiotics. An [...] Several hospitals were contacted for transfer including [facility], [facility], [facility], [facility], [facility]opedics and [facility] who were unable to take the patient. Patient was therefore transferred to [facility] for further evaluation. While at [facility], blood work remained stable, hemoglobin 10.2. BMP [...] No CP or SOB. Patient was upset sheis not receiving her night time medications on time. Patient also mentions that she wants the PICC line and antibiotics. She is agreeable to following with [place] outpatient and [place]. Objective [...] mL, IV Piggyback, q8h Dreft detergent 1 maria ines, Topical, BID eszopiclone 3 mg tablet 3 mg 1 tab(s), Oral, qHS fenofibrate 48 mg tablet 48 mg 1 tab(s), Oral, [facility] luis waiting until keyona [...] CRP elevated on admission. MRI completed at [facility] showed signs of deep fascial infectious process [...] PICC line and outpatient antibiotics as ID recommendedyesterday. Will plan to order PICC today, social work involved for outpatient antibiotic therapy. PT/OT recommending home therapy. Diarrhea, improving. Cdiff negative. CBC/BMP pending for today. Leukocytosis resolved, patient afebrile. Scleroderma, chronic. 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 Chronic neuropathy, continue home medications. HLD, continue [...] by NEHAL RAYMOND on 05/06/2022 09:45 AM [id number] Infectious disease Progress note Date of Service [...] Respirations easy and nonlabored, 100% on RA. Patienthas remained afebrile for the last 24 hours. ESR 65 CRP 5.1 FOCUSED ASSESSMENT: CVS: Regular S1S2 LUNGS: Clear bilaterally, denies SOB, denies cough ABDOMEN: Rounded, soft, nontender, + bowel sounds, passing gas, diarrhea yesterday SKIN: Upper back rash/skin irritation ANCHORMAN-improving with no itching or pain, chest/abdominal skin [...] - present CULTURE RESULTS/SEBLE: 04/29 Blood Cultures 2/2 no growth to date -F 04/29 Wound [...] 1 cap(s), Oral, qWeek Dreft detergent 1 maria ines, Topical, BID eszopiclone 3 mg tablet 3 mg 1 tab(s), Oral, qHS fenofibrate 48 mg tablet 48 mg 1 tab(s), Oral, qDayM [facility] order dr janelle giraldo until keyona [...] Alexandria Morel RN on 05/05/2022 08:14 AM [facility]Jkxboyro05-53-1322 Infectious disease Progress note Date of Service [...] Respirations easy and nonlabored, 100% on RA. Patienthas remained afebrile for the last 24 hours. [...] 1 cap(s), Oral, qWeek Jasonft detergent 1 maria ines, Topical, BID eszopiclone 3 mg tablet 3 mg 1 tab(s), Oral, qHS fenofibrate 48 mg tablet 48 mg 1 tab(s), Oral, qDayM [facility] order [facility] luis waiting until keyona [...] Alexandria Morel RN on 05/05/2022 08:14 AM [id number] Note Date of Service 05/05/22 Chief Complaint Left arm cellulitis Subjective 51-year-old female with past medical history of scleroderma in the process of following with rheumatology, neuropathy, hyperlipidemia, chronic back pain follows with pain management, osteoporosis, degenerative joint disease, anemia, tobacco abuse who initially presented to [facility] on 04/29/2022 with complaints of left arm pain and cellulitis. Patient developed an ulcer on her forearm several days prior. Patient was seen by her PCP and prescribed Keflex with worsening symptoms. On arrival to [facility], patient was started on broad-spectrum antibiotics. An [...] Several hospitals were contacted for transfer including [place], [facility], [facility], [facility], [facility]opedics and [facility] who were unable to take the patient. Patient was therefore transferred to [facility] for further evaluation. While at [facility], blood work remained stable, hemoglobin 10.2. BMP [...] 1 cap(s), Oral, qWeek Dreft detergent 1 maria ines, Topical, BID eszopiclone 3 mg tablet 3 mg 1 tab(s), Oral, qHS fenofibrate 48 mg tablet 48 mg 1 tab(s), Oral, qDayM [facility] order [facility] luis waiting until keyona [...] CRP elevated on admission. MRI completed at [facility] showed signs of deep fascial infectious process [...] she is in process of establishing with rod puller. Chronic neuropathy, continue home medications. HLD, continue [...] by NEHAL RAYMOND on 05/05/2022 10:00 AM [id number] Infectious disease Progress note Date of Service [...] Respirations easy and nonlabored, 100% on RA. Patienthas remained afebrile for the last 24 hours. ESR 65 CRP 5.1 FOCUSED ASSESSMENT: CVS: Regular S1S2 LUNGS: Clear bilaterally, denies SOB, denies cough ABDOMEN: Rounded, soft, nontender, + bowel sounds, passing gas, diarrhea yesterday SKIN: Upper back rash/skin irritation ANCHORMAN-improving with no itching or pain, chest/abdominal skin [...] 1 cap(s), Oral, qWeek Keyona detergent 1 maria ines, Topical, BID eszopiclone 3 mg tablet 3 mg 1 tab(s), Oral, qHS fenofibrate 48 mg tablet 48 mg 1 tab(s), Oral, qDayM [facility] dr ulis waiting until keyona arrived in ord, Miscellaneous, [...] Alexandria Morel RN on 05/05/2022 08:14 AM [id number] Infectious disease Progress note Date of Service 05/04/2022 Objective Vitals and Measurements T: 36.7 C (Oral) TMIN: 36.4 C (Oral) TMAX: 36.8 C (Oral) HR: 81 RR: 18 BP: 139/71 SpO2: 98% Physical Exam Chart reviewed, patient examined. Patient is alert and oriented x3, appears mildly anxious but FSC,resting in bed with brother at bedside. No c/o NV. Reports diarrhea that began during hospital stay. Denies SOB, denies cough. Reports ongoing pain to LUE, although does report improvement overall inher pain and swelling. No other new complaints this AM, requesting heart monitor be removed due to sensitive skin as stickers are causing her skin irritation. Respirations easy and nonlabored, 98% onRA. Patient has remained afebrile for the last 24 hours. ESR 65 CRP 5.1 FOCUSED ASSESSMENT: CVS: Regular S1S2, NSR on monitor LUNGS: Clear bilaterally, denies SOB, denies cough ABDOMEN: Nondistended, rounded, soft, nontender, + bowel sounds, passing gas, diarrhea SKIN: Upper back rash/skin irritation ANCHORMAN-patient denies itching/pain, chest/abdominal skin irritation due to [...] unit(s)) 1,250 mcg 1 cap(s), Oral, qWeek Jason detergent 1 maria ines, Topical, BID eszopiclone 3 mg tablet 3 mg 1 tab(s), Oral, qHS fenofibrate 48 mg tablet 48 mg 1 tab(s), Oral, qDayM [facility] order [facility] luis waiting until keyona [...] Alexandria Morel RN on 05/04/2022 01:59 PM [id number] Infectious disease Progress note Date of Service 05/04/2022 Objective Vitals and Measurements T: 36.7 C (Oral) TMIN: 36.4 C (Oral) TMAX: 36.8 C (Oral) HR: 81 RR: 18 BP: 139/71 SpO2: 98% Physical Exam Chart reviewed, patient examined. Patient is alert and oriented x3, appears mildly anxious but FSC,resting in bed with brother at bedside. No c/o NV. Reports diarrhea that began during hospital stay. Denies SOB, denies cough. Reports ongoing pain to LUE, although does report improvement overall inher pain and swelling. No other new complaints this AM, requesting heart monitor be removed due to sensitive skin as stickers are causing her skin irritation. Respirations easy and nonlabored, 98% onRA. Patient has remained afebrile for the last [...] 1 cap(s), Oral, qWeek Dreft detergent 1 maria ines, Topical, BID eszopiclone 3 mg tablet 3 [...] Alexandria Morel RN on 05/04/2022 01:59 PM [id number] Orthopaedic surgery Consult note Date of Service [...] 1 cap(s), Oral, qWeek Dreft detergent 1 maria ines, Topical, BID eszopiclone 3 mg tablet 3 [...] Start: 05/03/22 14:51:00 EDT, Dose = 1 maria ines, Soap, Topical, BID, Please cover wound(s) with [...] fluid, what could be reasonable is to considerinterventional radiology aspiration of this fluid. Please see attending addendum on 05/02 consult note for recommendations should her infection worsen -She may follow up with her Ortho doc in [place] -Discussed with attending There is no further orthopedic intervention indicated at this time. Please do not hesitate to reachout or re-consult for any additional concerns or questions. Digitally Signed by JOSE ECHEVARRIA MD on 05/04/2022 08:56 AM [id number] Orthopaedic surgery Progress note Date of Service [...] fluid, what could be reasonable is to considerinterventional radiology aspiration of this fluid. Please see attending addendum on 05/02 consult note for recommendations should her infection worsen -She may follow up with her Ortho doc in [place] -Discussed with attending Digitally Signed by JOSE ECHEVARRIA MD on 05/03/2022 11:01 AM Digitally Signed by JOSE ECHEVARRIA MD on 05/03/2022 11:14 AM [facility]Ydkgpjgt75-07-9250 Note Date of Service 05/04/22 Chief Complaint left arm cellulitis Subjective 51-year-old female with past medical history of scleroderma in the process of following with rheumatology, neuropathy, hyperlipidemia, chronic back pain follows with pain management, osteoporosis, degenerative joint disease, anemia, tobacco abuse who initially presented to [facility] on 04/29/2022 with complaints of left arm pain and cellulitis. Patient developed an ulcer on her forearm several days prior. Patient was seen by her PCP and prescribed Keflex with worsening symptoms. On arrival to [facility], patient was started on broad-spectrum antibiotics. An [...] Several hospitals were contacted for transfer including [place] [facility], [facility], [facility], [facility], [facility]oped[facility] and [facility] who were unable to take the patient. Patient was therefore transferred to [facility] for further evaluation. While at [facility], blood work remained stable, hemoglobin 10.2. BMP [...] No complaints of chest pain or shortness ofbreath. Patient states she has had 2 episodes [...] 1 cap(s), Oral, qWeek Dreft detergent 1 maria ines, Topical, BID eszopiclone 3 mg tablet 3 mg 1 tab(s), Oral, qHS fenofibrate 48 mg tablet 48 mg 1 tab(s), Oral, q[facility]M [facility] order [facility] luis waiting until keyona [...] CRP elevated on admission. MRI completed at [facility] showed signs of deep fascial infectious process [...] 5.1. [facility] in [facility]-this was discussed with the patient. Will await ID recommendations. Diarrhea, will check Cdiff given ongoing antibiotic therapy Additional blood work stable. Leukocytosis resolved, patient afebrile. Scleroderma, chronic. 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 Chronic neuropathy, continue home medications. HLD, continue [...] by NEHAL RAYMOND on 05/04/2022 09:54 AM [id number] Orthopaedic surgery Consult note Date of Service [...] 1 cap(s), Oral, qWeek Dreft detergent 1 maria ines, Topical, BID eszopiclone 3 mg tablet 3 mg 1 tab(s), Oral, qHS fenofibrate 48 mg tablet 48 mg 1 tab(s), Oral, q[facility] order [facility] luis waiting until keyona [...] Start: 05/03/22 14:51:00 EDT, Dose = 1 maria ines, Soap, Topical, BID, Please cover wound(s) with [...] fluid, what could be reasonable is to considerinterventional radiology aspiration of this fluid. Please see attending addendum on 05/02 consult note for recommendations should her infection worsen -She may follow up with her Ortho doc in [place] -Discussed with attending There is no further orthopedic intervention indicated at this time. Please do not hesitate to reachout or re-consult for any additional concerns or questions. 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 Started on Keflex outpatient for the same with no improvement.On this admission, x-ray of the left hand and forearm negative. MRI of the forearm completed on 05/01 showed diffuse cellulitis of the forearm and hand without rim- enhancing fluid collection to suggest abscess with mildly [...] labs showed elevated ESR and CRP. Deep woundcultures from 04/29 are group A hemolytic strep [...] improved. HEENT: Head normocephalic and atraumatic. PERRLA. [place] oral mucosa. Neck: Supple. No lymphadenopathy. Lungs: [...] 3 mL, Inhalation, q4hRT Dreft detergent 1 maria ines, Topical, BID guaifenesin 100 mg/5 mL 120 [...] Imaging Results and Diagnostics Imaging last from [place]. EKG No qualifying data available. Assessment/Plan 1. [...] to outside scope practice. Orthopedics following, recommending localwound care with no evidence of compartment syndrome [...] Patient has had diagnosis since 6 years oldand records [facility] at [facility]. 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 Started on Keflex outpatient for the same with no improvement.On this admission, x-ray of the left hand and forearm negative. MRI of the forearm completed on 05/01 showed diffuse cellulitis of the forearm and hand without rim- enhancing fluid collection to suggest abscess with mildly [...] labs showed elevated ESR and CRP. Deep woundcultures from 04/29 are group A hemolytic strep [...] improved. HEENT: Head normocephalic and atraumatic. PERRLA. [place] oral mucosa. Neck: Supple. No lymphadenopathy. Lungs: [...] 3 mL, Inhalation, q4hRT Dreft detergent 1 maria ines, Topical, BID guaifenesin 100 mg/5 mL 120 [...] Imaging Results and Diagnostics Imaging last from [place]. EKG No qualifying data available. Assessment/Plan 1. [...] to outside scope practice. Orthopedics following, recommending localwound care with no evidence of compartment syndrome [...] Patient has had diagnosis since 6 years oldand records [facility] be found at [facility]. Due to diagnoses, multiple orthopedics feel as [...] by JADE LUGO on 05/03/2022 01:52 PM [id number] [facility] surgery Progress note Date of Service [...] fluid, what could be reasonable is to considerinterventional radiology aspiration of this fluid. Please see attending addendum on 05/02 consult note for recommendations should her infection worsen -She may follow up with her Ortho doc in [place] -Discussed with attending Digitally Signed by JOSE ECHEVARRIA MD on 05/03/2022 11:01 AM Digitally Signed by JOSE ECHEVARRIA MD on 05/03/2022 11:14 AM [id number] Orthopaedic surgery Consult note Date of Service 05/02/22 Reason for Consultation LUE soft tissue infection Referring Physician ID History of Present Illness 51-year-old female with past medical history of scleroderma [facility] for concerns of possible compartment syndrome of her left forearm. She was seen at [facility] and had advanced imaging performed there which showed that there might be fluid collecting within the compartments of her left forearm musculature. After multiple attempts at transferring her to a different facility she was transferred to [place]. 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 She reports [...] upper extremity resulting in a limb that appearsalmost skeletal like. And is moderately swollen. There is diffuse erythema and and discrete areas of minor skin breakdown with mostly serosanguineous drainage. Compartments are nontender to palpation. The patient has the ability to make a strong pinch ammonia worker with the thumb flexing into the index [...] 1.11 Imaging Results and Diagnostics MRI from [facility] of the L forearm: Reviewed. No [...] follow up with her Ortho doc in [place] -Discussed with attending Problem List/Past Medical History [...] Domestic Concerns: None. Living situation: Home/Independent. 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 Lives In: Single level home. Current [...] MOREAU DO on 05/03/2022 09:38 AM [id number] Infectious disease Consult note Date of Service 05/02/2022 Reason for Consultation Left arm abscess Referring Physician Dr. 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 She was admitted to [facility] on 315 and was transferred to [place] for further management. Prior to admission, patient [...] is unable to eat or drink. She statesthat her left arm is improving and she is able to move her fingers now compared to yesterday. Reports a chronic left arm wound. Declined surgery and would just like to watch and wait. Denies fever orchills. Denies malaise. Denies nausea, vomiting or diarrhea. [...] HEENT: Head is normocephalic and atraumatic. PERRLA. [place] oral mucosa. Neck: Supple. No lymphadenopathy. Lungs: [...] the left forearm and MRI completed at [facility]. Assessment/Plan 1. Cellulitis of the left [...] their scope, will consider possible transfer to [facility] for further evaluation. Concern for compartment syndrome, [...] into shoulder joint- right: 11/12/21 Ablation: 06/2020 GolYakaz's elbow: 2017 Carpal tunnel: 2016 Blind left [...] Domestic Concerns: None. Living situation: Home/Independent. 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 Lives In: Single level home. Current [...] by JADE LUGO on 05/02/2022 01:42 PM [id number] Orthopaedic surgery Consult note Date of Service 05/02/22 Reason for Consultation LUE soft tissue infection Referring Physician ID History of Present Illness 51-year-old female with past medical history of scleroderma admitted to [facility] for concerns of possible compartment syndrome of her left forearm. She was seen at [facility] and had advanced imaging performed there which showed that there might be fluid collecting within the compartments of her left forearm musculature. After multiple attempts at transferring her to a different facility she was transferred to [place]. 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 She reports [...] upper extremity resulting in a limb that appearsalmost skeletal like. And is moderately swollen. There is diffuse erythema and and discrete areas of minor skin breakdown with mostly serosanguineous drainage. Compartments are nontender to palpation. The patient has the ability to make a strong pinch ammonia worker with the thumb flexing into the index [...] 1.11 Imaging Results and Diagnostics MRI from [facility] of the L forearm: Reviewed. No [...] to how this was performed today by pr -Perform local wound care as needed. Daily dressing changes with nonstick gauze and kerlix -continue abx per ID -She may follow up with her Ortho doc in [place] -Discussed with attending Problem List/Past Medical History [...] Domestic Concerns: None. Living situation: Home/Independent. 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 Lives In: Single level home. Current [...] MOREAU DO on 05/03/2022 09:38 AM [id number] Evaluation + Plan noteExtracted from: Title:Clinical Document Author:ALEXIS JAMES MD Date:05/02/22 [facility] Medicine Hospitalist History and Physical Date of Admission: 05/02/2022 Chief complaint: Left arm cellulitis History of present illness: History is taken from talking with the nurse practitioner at [facility] as well as talking with the patient. 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 Patient was admitted to [facility] on 04/29/2022. She presented with left arm pain and cellulitis. She had developed an ulcer in her forearm several days prior to admission. She reports that she has intermittent cellulitis and ulceration of the left arm secondary to scleroderma. Patient prior to admission at [place] was on Keflex with no improvement in her symptoms. In the emergency department in [place] she was given vancomycin and Zosyn. The [...] for possible drainage. The nurse practitioner contacted [place] [facility] teacher adventure education multiple times who declined to see the patient. [facility] was contacted and did not have any beds for 24 hours. [facility] was contacted and reported that they would only accept trauma patients. [facility] declined to take the patient stating that general orthopedic surgery could do the drainage. [facility] was also notified who stated that it was out of their scope of practice. [facility] also declined to take the patient. For [...] into shoulder joint- right: 11/12/21 Ablation: 06/2020 Makenzie's elbow: 2017 Carpal tunnel: 2016 Blind left [...] presents on 05/02/2022 as a transfer from [facility] due to having significant left arm cellulitis. [...] Appointments Appointment Date:05/25/2022 10:45:00 AM Scheduled Provider:SHRAVAN ULCAS MD Location:[facility] PM Appointment Type:PM OV Appointment Date:06/12/2022 02:00:00 PM Scheduled Provider:SOLIS SHELL Location:[facility] Appointment Type:PC OV Controlled Medication Future Scheduled Tests Laboratory* Hepatic Function Panel 02/02/22 * Thyroid Stimulating Hormone 02/02/22 * PTH, Intact 02/02/22 * Vitamin D Level 02/02/22 [facility] 03-18-2023 Infectious disease Consult note Date of Service 05/02/2022 Reason for Consultation Left arm abscess Referring Physician Dr. 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 She was admitted to [facility] on 315 and was transferred to [place] for further management. Prior to admission, patient [...] HEENT: Head is normocephalic and atraumatic. PERRLA. [place] oral mucosa. Neck: Supple. No lymphadenopathy. Lungs: [...] the left forearm and MRI completed at [facility]. Assessment/Plan 1. Cellulitis of the left [...] their scope, will consider possible transfer to [facility] for further evaluation. Concern for compartment syndrome, [...] Domestic Concerns: None. Living situation: Home/Independent. 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 Lives In: Single level home. Current [...] by JADE LUGO on 05/02/2022 01:42 PM [id number] History and physical note [facility] Medicine Hospitalist History and Physical Date of Admission: 05/02/2022 Chief complaint: Left arm cellulitis History of present illness: History is taken from talking with the nurse practitioner at [facility] as well as talking with the patient. 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 Patient was admitted to [facility] on 04/29/2022. She presented with left arm pain and cellulitis. She had developed an ulcer in her forearm several days prior to admission. She reports that she has intermittent cellulitis and ulceration of the left arm secondary to scleroderma. Patient priorto admission at [place] was on Keflex with no improvement in her symptoms. In the emergency department in [place] she was given vancomycin and Zosyn. The [...] for possible drainage. The nurse practitioner contacted [place] [facility] teacher adventure education multiple times who declined to see the patient. [facility] was contacted and did not have any beds for 24 hours. [facility] and reported that they would only accept trauma patients. [facility] declined to take the patient stating that general orthopedic surgery could do the drainage. [facility] was also notified who stated that it was out of their scope of practice. [facility] also declined to take the patient. [...] presents on 05/02/2022 as a transfer from [facility] due to having significant left arm cellulitis. [...] ALEXIS JAMES MD on 05/02/2022 03:59 AM [id number] Note Date of Service 05/01/2022 Chief Complaint LUE pain Subjective 51-year-old female with past medical history significant for scleroderma, DJD, hyperlipidemia. Patient presented to [facility] emergency department on 04/29/2022 with left upper [...] mupirocin 2% Ointment 22 Gram(s) tube 1 maria ines, Topical, TID Nicoderm patch REMOVAL 1 EA, [...] by BRANDI MOSELEY on 05/01/2022 01:01 PM [facility]03-17-2023 Note Date of Service 05/01/2022 Chief Complaint LUE pain Subjective 51-year-old female with past medical history significant for scleroderma, DJD, hyperlipidemia. Patient presented to [facility] emergency department on 04/29/2022 with left upper [...] mupirocin 2% Ointment 22 Gram(s) tube 1 maria ines, Topical, TID Nicoderm patch REMOVAL 1 EA, [...] by BRANDI MOSELEY on 05/01/2022 01:01 PM [facility]03-17-2023 Note ORIGINAL EXAMINATION: MRI OF [...] 05/01/2022 4:04:23 PM Ordering Provider: BRANDI MOSELEY [facility]03-17-2023 Note Date of Service 05/01/2022 Chief Complaint LUE pain Subjective 51-year-old female with past medical history significant for scleroderma, DJD, hyperlipidemia. Patient presented to [facility] emergency department on 04/29/2022 with left upper [...] mupirocin 2% Ointment 22 Gram(s) tube 1 maria ines, Topical, TID Nicoderm patch REMOVAL 1 EA, [...] by BRANDI MOSELEY on 05/01/2022 01:01 PM [facility]03-17-2023 Note ORIGINAL EXAMINATION: MRI OF [...] Sign Date: 05/01/2022 4:04:23 PM Ordering Provider: [facility]03-17-2023 Note Date of Service 05/01/22 Chief Complaint [...] mupirocin 2% Ointment 22 Gram(s) tube 1 maria ines, Topical, TID Nicoderm patch REMOVAL 1 EA, [...] Gwen Law Student on 05/01/2022 11:55 AM [facility]03-17-2023 Note ORIGINAL EXAMINATION: THREE XRAY [...] 05/01/2022 10:15:21 AM Ordering Provider: BRANDI MOSELEY [place] [id number] Note ORIGINAL EXAMINATION: TWO XRAY VIEWS OF [...] Sign Date: 05/01/2022 10:12:41 AM Ordering Provider: [facility]03-17-2023 Note ORIGINAL EXAMINATION: TWO XRAY VIEWS OF [...] Sign Date: 05/01/2022 10:12:41 AM Ordering Provider: [facility]03-17-2023 Note ORIGINAL EXAMINATION: THREE XRAY VIEWS [...] Date: 05/01/2022 10:15:21 AM Ordering Provider: BRANDI [facility]03-16-2023 Note Date of Service 04/30/2022 Subjective 51-year-old female with past medical history significant for scleroderma, DJD, hyperlipidemia. Patient presented to [facility] emergency department on 04/29/2022 with left upper [...] mupirocin 2% Ointment 22 Gram(s) tube 1 maria ines, Topical, TID Nicoderm patch REMOVAL 1 EA, [...] by BRANDI MOSELEY on 04/30/2022 02:51 PM [facility]03-15-2023 Note Date of Service 04/29/2022 Chief Complaint c/o left arm infection and increased pain. History of Present Illness Patient is a 51-year-old female, who follows with Solis Shlel CNP with a past medical history significant for scleroderma, degenerative joint disease, and hyperlipidemia, presents to [facility] emergency department with the chief complaint [...] release capsule mupirocin 2% topical ointment 1 maria ines, Topical, TID Prolia 60 mg/mL subcutaneous solution [...] Domestic Concerns: None. Living situation: Home/Independent. 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 Lives In: Single level home. Current [...] by YOHANNES BOWIE on 04/29/2022 09:53 PM [address]15-2023 Hospital Discharge instructions Follow Up Care 04/29/2022 12:52:43 With:SOLIS SHELL Address: [address] [place] [address] [place] [address]- [phone] When:05/05/2022 14:00:00 Comments:This is your post-hospital follow-up appointment. It is in the [employer] office. [facility] 03-15-2023 Evaluation + Plan noteExtracted [...] Date:05/05/2022 02:00:00 PM Scheduled Provider:SOLIS SHELL Location:[facility] Appointment Type:[facility] Hospital Follow-Up Appointment Date:05/25/2022 10:45:00 AM Scheduled Provider:SHRAVAN LUCAS MD Location:[facility] PM Appointment Type:PM OV Appointment Date:06/12/2022 02:00:00 PM Scheduled Provider:SOLIS SHELL Location:[facility] Appointment Type: OV Controlled Medication Future Scheduled Tests Laboratory* Hepatic Function Panel 02/02/22 * Thyroid Stimulating Hormone 02/02/22 * PTH, Intact 02/02/22 * Vitamin D Level 02/02/22 [facility] 12-19-2022 Evaluation + Plan note [...] Panel 05/19/22 * Complete Metabolic Panel 05/26/22 [facility] 11-01-2022 Evaluation + Plan note Future Appointments Appointment Date:12/23/2021 02:30:00 PM Scheduled Provider: Location:[facility] Appointment Type:PC Nurse Injection Appointment Date:12/30/2021 02:00:00 PM Scheduled Provider:SOLIS SHELL Location:[facility] Appointment Type:PC Wellness Medicare Appointment Date:01/14/2022 11:30:00 AM Scheduled Provider:WILLARD PERKINS Location:[facility] PM Appointment Type:PM OV Future Scheduled Tests Radiology* US Soft Tissue Mass Pelvis/Hip/Low Back 12/09/21 [facility] 10-07-2022 Miscellaneous Notes* Telephone Encounter - Tea Ruiz APRN.CNS - 11/21/2021 3:35 PM EDT Noted, seen by [facility] pain management also. * Telephone Encounter - Akua Chen LPN - 11/21/2021 11:12 AM EDT Casi from [facility] called stating that patient was in there office now and she was wanting information on previous visits regarding plan for patients pain. OV was printed and faxed to [phone]. documented in this encounterDunlap [facility] Hospital10-07-2022 History of Present illness Narrative* Tea Ruiz APRN.PROFESSIONAL EMPLOYER CONSULTANT - 11/21/2021 9:00 AM EDT SUBJECTIVE: HEPATITIS B(1 of 3 - 3-dose series) Never done COVID-19 VACCINE(1) Never done PNEUMOCOCCAL(1 - PCV) Never done HPV TESTING Never done PAP TESTING due on 03/06/2008 MAMMOGRAM Never done COLORECTAL CANCER SCREENING Never done DEPRESSION ASSESSMENT Never done INFLUENZA(1) Never done HPI Sue Moncada is a 51 year old female. [...] PCP:Galdino Keita MD. [address] [facility] [address] Pain management: Pamela Koehler [place] Lumber Grader: none Seen at [facility] ER 08/08/2021 for chronic pain medication refill. She had called our office before beingseen here asking for refills. She was referred back to her previously prescribing provider however went to the [facility] ER for a refill. Outside record review notes she presented with report of chronic pain since age 6. Noted relocation from [place]. Noted deformities of upper and lower extremities onexam. Last seen by her providers in [place] recently. Recent lab work. Outside records: None [...] No Comment: Marijuana laced brownies at a constitution party by accident FAMILY HISTORY Problem Relation [...] ER 400 MG TABLET,EXTENDED RELEASE 24 HR Sue Moncada is tearful and very concerned about [...] for pain management provider, will fax to [facility]. Difficult to have conversation as she [...] Level: 3 - Low documented in this encounterDunlap Memorial Hospital09-22-2022 NoteHNO ID: [id number] Author: Melinda Workman MA Service: ? Author Type: Microbiological Laboratory Technician Type: Progress Notes Filed: 11/06/2021 9:51 AM [...] suicidal ideas. The patient is nervous/anxious.[facility]09-22-2022 NoteHNO ID: [id number] Author: Marcellus Rosado MD Service: ? Author Type: Physician Type: Progress Notes Filed: 11/06/2021 9:54 AM Note Text: [facility] Today's Date: 11/06/2021 Last Visit: 10/02/2021 Name: Sue Moncada : 1970 Purpose: Follow-up Evaluation Chief complaint: Chronic RIGHT sided Pain Interval History: Sue Moncada returns today for a follow-up encounter, reporting that since last encounter, the overall pain and functional disability arising from the chief complaint has worsened. She reports she fractured her left shoulder 5 weeks ago, following with [facility]. She reports that she has been [...] below Procedures performed included below Discharged from [facility] for overtaking her pain medication (05/02/2020) Initial HPI: (Obtained on 10/02/2021) Sue Moncada is a 51 year old year-old [...] but her last pain management provider in [place] reduced her pain medications. Recently moved from [place] to [place], she was in pain management in [place]. She was established with [facility]. She went to [place] ER for opioid medication refills while waiting [...] complaint(s)): Opi (more content not included)...[facility]09-22-2022 History of Present illness Narrative* Melinda [...] not included. [facility] Today's Date: 11/06/2021 Last Visit: 10/02/2021 Name: Sue Moncada : 1970 Purpose: Follow-up Evaluation Chief complaint: Chronic RIGHT sided Pain Interval History: Sue Moncada returns today for a follow-up encounter, reporting that since last encounter, the overall pain and functional disability arising from the chief complaint has worsened. She reports she fractured her left shoulder 5 weeks ago, following with [facility]. She reports that she has been [...] below Procedures performed included below Discharged from [facility] for overtaking her pain medication (05/02/2020) Initial HPI: (Obtained on 10/02/2021) Sue Moncada is a 51 year old year-old [...] but her last pain management provider in [place] reduced her pain medications. Recently moved from [place] to [place], she was in pain management in [place]. [facility]. 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 Impression & [...] family and they recently moved back to [place] from [place] therefore she came along with him if [...] consider the following treatments as outlined below: Sue Moncada would benefit from the following to decrease pain, improve function and/or work participation, and improve quality of life: Medications: Continue Elavil, Zanaflex with caution (PCP) JUANI-7/PHQ-2, and ORT: 10/02/2021 Completed and reviewed Functional Gnosticism: No changes-continue current regimen Additional Studies: XR [...] MBA Pain Management [facility] documented in this encounterDunlap [facility] Hospital09-15-2022 History of Present illness Narrative* Andrew Alice - 10/30/2021 11:06 AM EDT Consultation requested [...] She states she recently went to a tangled yarn worker in [place] who would debride the callus She is [...] No Comment: Marijuana laced brownies at a constitution party by accident REVIEW OF SYSTEMS GENERAL: [...] needed. Andrew Jenkins DPM Podiatry [address] [facility] [address] Dept: [phone] Dept * Johanna Garcia LPN - 10/30/2021 10:57 AM EDT AMB ROOMING INTAKE FLOWSHEET DATA Pain Pain Level: 7 Pain Location: Foot-Left Description: Burning Duration Amount of Time: 2 Duration Units: Years Frequency: Continuous Intervention/Comfort measure: Reposition, Relaxation Patient presents with: Left Foot - New, Callous, Pain Patient states she was seeing tangled yarn worker in [place] and has recently moved back to [place] office [place] has since then closed. Johanna Garcia LPN documented in this encounterDunlap [facility] Hospital09-13-2022 Miscellaneous Notes* Telephone Encounter - Liss Valentino - 10/28/2021 10:29 AM EDT Patient given results and verbalized understanding of instructions given. Liss Valentino * Telephone Encounter - Grace Golden PA-C - 10/28/2021 10:07 AM EDT Let patient know her US showed no blood clot. Continue medications prescribed at visit and follow up with pcp as needed. documented in this encounterDunlap Memorial Hospital09-12-2022 History of Present illness Narrative* Ginny Costa APRN.DIGITAL MEDIA STRATEGIST - 10/27/2021 5:58 PM EDT Images from the original note were not included. Subjective Trauma Associated symptoms include a rash. Pertinent negatives include no chills or fever. Sue Lewis a 51 year old female who [...] No Comment: Marijuana laced brownies at a constitution party by accident Objective Physical Exam Vitals [...] <130/80 Radha Moreno APRN Student TEACHING PROVIDER (Physician/PA/REINFORCING METAL WORKER) NOTE OF PERSONAL INVOLVEMENT IN CARE: I have personally seen and examined the patient and performed the medical decision-making components. I have reviewed the Advanced Practice Registered Nurse (REINFORCING METAL WORKER) Student's documentation and verified the findings in the note as written. Any additions or changes are noted in bold/italics. Signature: Ginny Costa Date: 10/27/2021 Time: 6:19 PM documented in this encounterDunlap Memorial Hospital09-12-2022 Instructions* Patient Instructions* Ginny Costa APRN.CNP - [...] infections in the future. documented in this encounterDunlap Memorial Hospital08-23-2022 Miscellaneous Notes* Telephone Encounter - Missy Cabrera LPN - 10/07/2021 11:28 AM EDT Spoke with pt and information listed below given. Pt verbalizes understanding. Pt declined in scheduling a lab apt and will walk in to get done. Missy Cabrera LPN * Telephone Encounter - Tea Ruiz APRN.DEMOND - 10/06/2021 10:54 AM EDT She needs [...] suspiciousactivity was identified. 10/06/2021 by Tea Ruiz APRN.DEMOND * Telephone Encounter - Griselda Culver - [...] notify patient. Griselda Culver documented in this encounterDunlap Memorial Hospital08-18-2022 NoteHNO ID: [id number] Author: Amaya Mendoza MA Service: ? Author Type: Microbiological Laboratory Technician Type: Progress Notes Filed: 10/02/2021 9:37 AM [...] suicidal ideas. The patient is nervous/anxious.[facility]08-18-2022 NoteHNO ID: [id number] Author: Camelia Joe APRN.DIGITAL MEDIA STRATEGIST Service: ? Author Type: Nurse Practitioner Type: Progress Notes Filed: 10/02/2021 9:37 AM Note Text: [facility] Today's Date: 10/02/2021 Last Visit: N/A Name: Sue Moncada : 1970 Purpose: New Patient Evaluation Chief complaint: Chronic RIGHT sided Pain Interval History: N/A Initial HPI: (Obtained on 10/02/2021) Sue Moncada is a 51 year old year-old [...] but her last pain management provider in [place] reduced her pain medications. Recently moved from [place] to [place], she was in pain management in [place]. She was established with [facility]. She went to [facility] for opioid medication refills while waiting to [...] the chief complaint(s)): Opioids: Tramadol, Vicodin or Welcome (Hydrocodone), Percocet (Oxycodone), and Morphine NSAIDS: Motrin [...] Recent labs: No results found for: CREAT @[facility](gfr)@ No results found for: PCGLUCOSE Pain Procedures: DATE PROCEDURE IMPROVEMENT None to date at this practice Compliance: PDMP website checked and validated. All prescriptions have been APPROPRIATELY filled. No suspicious activity was identified. 10/02/2021 by Camelia Joe APRN.[facility] Last Drug screen: Not Applicable Risk Assessment: [...] 0-3 (0-3, (more content not included)...[facility]08-06-2022 Miscellaneous Notes* Telephone Encounter - Viviana Chaney LPN - 09/20/2021 9:48 AM EDT Pt calling for refills. Seen SCALE BALANCER 08/12/21. Next appt is 11/12/21 Asking for rx today. documented in this encounterDunlap Memorial Hospital08-02-2022 History of Present illness Narrative* Gregorio Soto APRN.DIGITAL MEDIA STRATEGIST - 09/16/2021 3:39 PM EDT Images from [...] of care. This note was generated using [employer] software. It may contain errors in wording, punctuation, or spelling. Gregorio Soto APRN.GARRISON documented in this encounterDunlap Memorial Hospital06-29-2022 Miscellaneous Notes* Telephone Encounter - Keerthi Monk - 08/13/2021 9:34 AM EDT Patient has been scheduled for 10/02/21 in [place] with Camelia Joe. Keerthi Monk * Telephone Encounter - Manuela Voss - 08/12/2021 3:49 PM EDT Patient would like to be seen by pain management in [place]. Order has been placed, please assist. documented in this encounterDunlap Memorial Hospital06-28-2022 Instructions* Patient Instructions* Tea Ruiz APRN.PROFESSIONAL EMPLOYER CONSULTANT - 08/12/2021 2:56 PM EDT Check to see if your insurance covers Tdap (tetanus diphtheria pertussis ) vaccine and what location to get the vaccine -usually best covered at your local pharmacy where you get prescriptions filled Consider stopping smoking documented in this encounterDunlap Memorial Hospital06-28-2022 History of Present illness Narrative* Tea RuizKATHERINE.PROFESSIONAL EMPLOYER CONSULTANT - 08/12/2021 2:40 PM EDT SUBJECTIVE: COVID-19 VACCINE(1) Never done PNEUMOCOCCAL(1 - PCV) Never done HEPATITIS C SCREENING Never done HIV SCREENING Never done HPV TESTING Never done PAP TESTING due on 03/06/2008 MAMMOGRAM Never done LIPID SCREEN Never done DIABETES SCREEN Never done COLORECTAL CANCER SCREENING Never done HPI Sue Moncada is a 51 year old female. [facility] signficant for ACTIVE PROBLEM LIST Chronic Pain Syndrome History of Hyperlipidemia Personal History of Scleroderma B12 Deficiency Acquired Arm Deformity, Left Acquired Deformity of Left Lower Leg Presents today to establish care with Dr Ernandez PCP: EAMON ROSS - Seen most recent for scripts. Previous PCP:Galdino Keita MD. [address] [facility] [address] Pain management: Pamela Koehler [place] PA Lumber Grader: none Seen at [facility] ER 08/08/2021 for chronic pain medication refill. She had called our office before beingseen here asking for refills. She was referred back to her previously prescribing provider however went to the [facility] ER for a refill. Outside record review notes she presented with report of chronic pain since age 6. Noted relocation from [place]. No deformities of upper and lower extremities on exam. Last seen by her providers in [place] recently. Recent lab work. Outside records: None [...] suspiciousactivity was identified. 08/12/2021 by Tea Ruiz APRN.PROFESSIONAL EMPLOYER CONSULTANT 2. Encounter for immunization - ICD9: V03.89, [...] ICD9: V72.31, ICD10: Z01.419 - CONSULT TO WOOD REPATCHER 13. B12 deficiency - ICD9: 266.2, ICD10: [...] her next visit. 3 mo follow up Teadonta Ruiz APRN.CNS [address] Ernandez to establish care Tea Ruiz APRN.CNS Medical Decision Making: Problems: Moderate: 2+ stable chronic illnesses Data: Unique test(s) ordered: 3+ Risk: Moderate: Drug management Medical Decision Making Level: 4 - Moderate documented in this encounterDunlap Memorial Hospital06-24-2022 Miscellaneous Notes* Telephone Encounter - Tea [...] a refill for her. documented in this encounterDunlap Memorial HospitalEvaluation + Plan note Future Appointments Appointment Date:01/14/2022 11:30:00 AM Scheduled Provider:WILLARD PERKINS Location:[facility] PM Appointment Type:PM OV Appointment Date:01/15/2022 11:15:00 AM Scheduled Provider: Location:[facility] Appointment Type:PC Nurse Lab Appointment Date:01/16/2022 01:30:00 PM Scheduled Provider:SOLIS SHELL Location:[facility] Appointment Type:PC Wellness Female Future Scheduled Tests Laboratory* Vitamin B12 Level 12/30/21 * Lipid Profile 12/30/21 * Hepatitis C Antibody IgG 12/30/21 * Complete Metabolic Panel 12/30/21 Radiology* MA Mammo Screening Bilateral w/ Zev 12/30/21 * BD Bone Density DEXA Axial Skeleton 12/30/21 * US Breast Left Complete 12/30/21 [facility] Evaluation + Plan note Future Appointments Appointment Date:01/29/2022 10:30:00 AM Scheduled Provider: Location:[facility] Appointment Type:MA Mammogram Screening Bilateral w/ Zev Appointment Date:01/29/2022 11:00:00 AM Scheduled Provider: Location:[facility] Appointment Type:US Breast Left Complete Appointment Date:02/25/2022 01:15:00 PM Scheduled Provider:WILLARD PERKINS Location:[facility] PM Appointment Type:PM OV Future Scheduled Tests Laboratory* Vitamin B12 Level 12/30/21 * Lipid Profile 12/30/21 * Hepatitis C Antibody IgG 12/30/21 * Complete Metabolic Panel 12/30/21 Radiology* MA Mammo Screening Bilateral w/ Zev 01/29/22 * US Breast Left Complete 01/29/22 [facility] Evaluation + Plan note Future Appointments Appointment Date:02/02/2022 01:30:00 PM Scheduled Provider:SOLIS SHELL Location:[facility] Appointment Type:PC OV Appointment Date:02/25/2022 01:15:00 PM Scheduled Provider:WILLARD PERKINS Location:[facility] PM Appointment Type:PM OV [facility] Evaluation + Plan note Future Appointments Appointment Date:05/25/2022 10:45:00 AM Scheduled Provider:SHRAVAN LUCAS MD Location:[facility] PM Appointment Type:PM OV Appointment Date:06/12/2022 02:00:00 PM Scheduled Provider:SOLIS SHELL Location:[facility] Appointment Type:PC OV Controlled Medication Future Scheduled Tests Laboratory* Hepatic Function Panel 02/02/22 * Thyroid Stimulating Hormone 02/02/22 * PTH, Intact 02/02/22 * Vitamin D Level 02/02/22 [facility] Evaluation + Plan note Future Appointments Appointment Date:05/01/2022 01:00:00 PM Scheduled Provider:SOLIS SHELL Location:[facility] Appointment Type:PC OV Appointment Date:05/25/2022 10:45:00 AM Scheduled Provider:SHRAVAN LUCAS MD Location:[facility] PM Appointment Type:PM OV Appointment Date:06/12/2022 02:00:00 PM Scheduled Provider:SOLIS SHELL Location:[facility] Appointment Type:PC OV Controlled Medication Future Scheduled Tests Laboratory* Hepatic Function Panel 02/02/22 * Thyroid Stimulating Hormone 02/02/22 * PTH, Intact 02/02/22 * Vitamin D Level 02/02/22 [facility] Evaluation + Plan note Future Appointments Appointment Date:05/15/2022 01:00:00 PM Scheduled Provider:SOLIS SHELL Location:[facility] Appointment Type:PC OV Appointment Date:05/25/2022 10:45:00 AM Scheduled Provider:SHRAVAN LUCAS MD Location:[facility] PM Appointment Type:PM OV Appointment Date:06/12/2022 02:00:00 PM Scheduled Provider:SOLIS SHELL Location:[facility] Appointment Type:PC OV Controlled Medication Future Scheduled [...] Panel 05/19/22 * Complete Metabolic Panel 05/26/22 [facility] Evaluation + Plan note Future Appointments Appointment Date:06/12/2022 02:00:00 PM Scheduled Provider:SOLIS SHELL Location:[facility] Appointment Type:PC OV Controlled Medication Appointment Date:07/01/2022 09:45:00 AM Scheduled Provider:WILLARD PERKINS Location:[facility] PM Appointment Type:PM OV Future Scheduled [...] Panel 05/19/22 * Complete Metabolic Panel 05/26/22 [facility] Evaluation + Plan note Future Appointments Appointment Date:07/29/2022 10:00:00 AM Scheduled Provider:WILLARD PERKINS Location:[facility] PM Appointment Type:PM OV Future Scheduled [...] Panel 05/19/22 * Complete Metabolic Panel 05/26/22 [facility] Evaluation + Plan note Future Appointments Appointment Date:08/12/2022 03:30:00 PM Scheduled Provider: Location:[facility] Appointment Type:GI OV Consult Appointment Date:10/19/2022 02:00:00 PM Scheduled Provider:TEA DAILEY PA-C Location:[facility] Appointment Type:PC OV Controlled Medication Future Scheduled [...] Panel 05/19/22 * Complete Metabolic Panel 05/26/22 [facility] Evaluwzygz noteNo assessment information available [facility] Work Phone: Evalutlcej note* Diagnosis Chronic pain syndrome- Primary Encounter [...] Corns and callosities documented in this encounter [facility] HospitalEvalunemours foundation note* Diagnosis Ear infection- Primary Unspecified otitis media documented in this encounter [facility]* Diagnosis Insomnia, unspecified type- Primary documented in this encounter [facility]* Diagnosis Chronic pain syndrome Personal history of scleroderma Personal history of other musculoskeletal disorders documented in this encounter [facility]* Diagnosis Right calf pain- Primary Cellulitis of right lower leg Cellulitis and abscess of leg, except foot Itching Unspecified pruritic disorder Elevated blood pressure reading without diagnosis of hypertension documented in this encounter [facility]* Diagnosis Equinus contracture of ankle- Primary Pes cavus Talipes cavus Callus of foot Corns and callosities Acquired deformity of left lower leg Other acquired deformity of other parts of limb Chronic pain syndrome Personal history of scleroderma Personal history of other musculoskeletal disorders documented in this encounter [facility]* Diagnosis Lumbar spondylosis- Primary Lumbosacral spondylosis without myelopathy Thoracic spondylosis without myelopathy jail (current) use of opiate analgesic documented in this encounter [facility]* Diagnosis Onset Date Resolution Status Closed left clavicular fracture noneactive Closed left clavicular fracture noneactive Closed left clavicular fracture noneactive [facility] Work Phone: Evaluation note* Diagnosis Chronic pain syndrome- Primary Personal history of scleroderma Personal history of other musculoskeletal disorders Acquired arm deformity, left Acquired deformity of left lower leg Other acquired deformity of other parts of limb documented in this encounter [facility]* Diagnosis Onset Date Resolution Status Arthritis of left glenohumeral joint noneactive Closed left clavicular fracture noneactive Contusion of right hip nonea ctive Bony sclerosis acute Bursitis of right hip acute Enchondroma of bone chronic [facility] Work Phone: Evaluation note* Diagnosis Onset Date Resolution Status Arthritis of left glenohumeral joint noneactive Closed left clavicular fracture noneactive Contusion of right hip nonea ctive Bony sclerosis acute Bursitis of right hip acute Enchondroma of bone chronic Bursitis of right hip acute Enchondroma of bone chronic [facility] Work Phone: Evaluation note* Diagnosis Onset Date Resolution Status Bony sclerosis acute Bursitis of right hip acute Enchondroma of bone chronic Bursitis of right hip acute Enchondroma of bone chronic [facility] Work Phone: Evaluation note* Diagnosis Onset Date Resolution Status Bursitis of right hip acute DDD (degenerative disc disease), lumbar acute Iliotibial band syndrome of right side acute Bursitis of right hip acute DDD (degenerative disc disease), lumbar acute Iliotibial band syndrome of right side acute [facility] Work Phone: Evaluation note* Diagnosis Lumbar spondylosis- Primary Lumbosacral spondylosis without myelopathy Low back pain, unspecified back pain laterality, unspecified chronicity, unspecified whether sciatica present Thoracic spondylosis without myelopathy Chronic, continuous use of opioids Opioid type dependence, continuous documented in this encounter [facility]* Diagnosis Insomnia, unspecified type- Primary 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 Chronic pain syndrome [facility] Diagnosis Insomnia, unspecified type [facility] Diagnosis 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 [facility] Diagnosis Chronic pain syndrome- Primary Irritation of left eye Primary hypertension Unspecified essential hypertension [facility]* Diagnosis 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 [facility] Diagnosis Chronic pain syndrome- Primary Insomnia, unspecified type 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 Primary hypertension Unspecified essential hypertension Colon cancer screening Special screening for malignant neoplasms, colon [facility]* Diagnosis Onset Date Resolution Status Scleroderma acute [facility] Work Phone: Evaluation note* Diagnosis Routine general [...] pathological fracture presence [facility]* Diagnosis Osteoporosis, unspecified osteoporosis type, unspecified pathological fracture presence- Primary Osteopetrosis [facility]* Diagnosis Hypercholesterolemia- Primary Pure hypercholesterolemia [facility] Diagnosis Chronic midline thoracic back pain- Primary Chronic pain syndrome Linear scleroderma Circumscribed scleroderma Insomnia, unspecified type [facility] Diagnosis Chronic midline thoracic back pain [facility]* Diagnosis Chronic pain syndrome- Primary Acute right-sided low back pain without sciatica Skin pimple Chronic pain of both upper extremities [facility]* Diagnosis Mass on back- Primary Localized superficial swelling, mass, or lump Chronic midline thoracic back pain Systemic sclerosis (HCC) Systemic sclerosis Chronic pain syndrome Insomnia, unspecified type Spondylosis of lumbar spine [facility]* Diagnosis Chronic pain syndrome- Primary Chronic midline thoracic back pain Systemic sclerosis (HCC) Systemic sclerosis 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 Chronic pain of both upper extremities Arthritis of left glenohumeral joint [facility]* Diagnosis Routine general medical examination [...] Tobacco use disorder [facility]* Diagnosis Insomnia, unspecified type [facility]* Diagnosis Mass on back Localized superficial swelling, mass, or lump Systemic sclerosis (HCC) Systemic sclerosis [facility]* Diagnosis Chronic midline thoracic back pain [facility]* Diagnosis Chronic pain syndrome [facility]* Diagnosis Bulging lumbar disc- Primary Leg length discrepancy Unequal leg length (acquired) Other osteoarthritis of spine, lumbar region Primary hypertension Unspecified essential hypertension Chronic pain syndrome Mass on back Localized superficial swelling, mass, or lump Osteoporosis, unspecified osteoporosis type, unspecified pathological fracture presence Primary insomnia Persistent disorder of initiating or maintaining sleep [facility]* Diagnosis Age-related osteoporosis without current [...] Hypercholesterolemia Pure hypercholesterolemia [facility]* Diagnosis Insomnia, unspecified type- Primary [...] Chronic pain syndrome [facility]* Diagnosis Insomnia, unspecified type- Primary [...] (HCC) Systemic sclerosis [facility]* Diagnosis Onset Date Resolution Status Admit Date Bursitis of right shoulder acute September 11, 2024 2:23pm Right shoulder pain acute September 11, 2024 2:23pm [facility] Work Phone: Evaluation note* Diagnosis Insomnia, [...] [facility] Narrative No data available for this section [facility] Hospital Discharge instructions Additional Instructions You need to follow-up with the pain management.[facility] Work Phone: Hospital Discharge instructions No data available for this section [facility] Instructions* Attachments The following attachments cannot be sent through Care Everywhere. * Flu Vaccine (Singaporean) documented in this [facility] HealthProgress note No data available for this section [facility] Reason for referral (narrative)* Outpatient Procedure (Routine) - Authorized Specialty Diagnoses / Procedures Referred By Contimer t Referred To Contact [facility] Diagnoses Right calf pain Procedures US LEG VEIN DVT UNL VAS LAB DUP-SCAN XTR VEINS UNILATERAL/LIMITED STUDY PraislerGinny Ortiz APRN.CNP [address] [place] [address] [facility] [address] [place] [address] Referral ID Status Reason Start Date Expiration Date Visits Requested Visits Authorized [id number] Authorized Auto-Generat ed Referral 10/27/2021 10/27/2022 1 1 [facility] Consultation (Routine) - Pending Review Specialty Diagnoses / Procedures Referred By Contac t Referred To Contact Gastroenterology Diagnoses Colon cancer screening Procedures [place] OFFICE/OUTPATIENT [facility] MDM 60-74 MINUTES Jeri Trinidad APRN - CNP [address] [place] [address] [facility] [address] [place] [address] Referral ID Status Reason Start Date Expiration Date Visits Requested Visits Authorized [id number] Pending Review Specialty Services Required 3 02/03/2024 1 1 [facility] MessageCastReason for referral (narrative)* Consultation (Routine) - Pending Review Specialty Diagnoses / Procedures Referred By Contac t Referred To Contact Osteopathic Medicine Diagnoses Osteopetrosis Osteoporosis, unspecified osteoporosis type, unspecified pathological fracture presence Jeri Trinidad APRN - CNP [address] [place] [address] Referral ID Status Reason Start Date Expiration Date Visits Requested Visits Authorized [id number] Pending Review Specialty Services Required 03/08/2023 03/07/2024 1 1 [facility] (n[facility])* Consultation (Routine) - Pending Review Specialty Diagnoses / Procedures Referred By Contac t Referred To Contact Pain Medicine Diagnoses Chronic midline thoracic back pain Systemic sclerosis (HCC) Chronic pain syndrome Spondylosis of lumbar spine Linear scleroderma Chronic pain of both upper extremities Arthritis of left glenohumeral joint Procedures [place] OFFICE/OUTPATIENT [facility] 60 MINUTES Jeri Trinidad APRN - CNP [address] [place] [address] Referral ID Status Reason Start Date Expiration Date Visits Requested Visits Authorized [id number] Pending Review Specialty Services Required 06/01/2023 05/31/2024 1 1 Scheduling Instructions [facility] Pain Management [facility] in [place], [place] . Leonid Olea for referral (narrative)* Consultation (Routine) - Pending Review Specialty Diagnoses / Procedures Referred By Cheyenne bowles Referred To Contact Rheumatology Diagnoses Linear scleroderma Procedures [place] OFFICE/OUTPATIENT [facility] 60 MINUTES Jeri Trinidad APRN - CNP [address] [place] [address] Brandi Benson MD [address] [address] Referral ID Status Reason Start Date Expiration Date Visits Requested Visits Authorized [id number] Pending Review Specialty Services Required 09/09/2023 09/08/2024 1 1 [employer] for referral (narrative)No reason for referral information availableViburnum Medical Services Work Phone: Chief Complaint and Reason for Visit Chief Complaint Admit Date RIGHT SHOULDER September 11, 2024 2:23 pm pain, eval the cuff October 07, 2024 7: 29am Reason for Visit Admit Date Bursitis of right shoulder September 11 2:23pm Right shoulder pain September 11, 2024 2:23 pm Chief Complaint med refill Chief Complaint med [...] RIGHT SHOULDER September 11, 2024 2:23 pm Advance Directives No Advanced Directives Records Found Advance Directive Response Recorded Date/ Time Living Will No August 08, 2021 9:17am Power of Stitcher Standard Machine No August 08 9:17am Advance Directive Response Recorded Date/ Time Living Will No November 21 12:09pm Power of Stitcher Standard Machine No November 21 12:09pm Advance Directive Response Recorded Date/ Time Living Will No December 03 12:55pm Power of Stitcher Standard Machine No December 03, 2021 12:55pm Advance Directive Response Recorded Date/ Time Living Will No December 03 1:55pm Power of Stitcher Standard Machine No December 03, 2021 1:55pm Advance Directive Response Recorded Date/ Time Living Will No May 14, 2022 10:36am Power of Stitcher Standard Machine No May 14 10:36am Advance Directive Response Recorded Date/ Time Living Will No June 22, 2022 2: 03pm Power of Stitcher Standard Machine No June 22, 2022 2:03pm Advance Directive Response Recorded Date/ Time Living Will No February 15 2:57pm Power of Stitcher Standard Machine No February 15 024 2:57pm Reason for Referral Specialty Diagnoses / Procedures Referred By Cheyenne t Referred To Contact Podiatry Diagnoses Callus of foot Procedures CONSULT TO PODIATRY OFFICE/OUTPATIENT [facility] 60-74 MINUTES Tea Ruiz, REINFORCING METAL WORKER.PROFESSIONAL EMPLOYER CONSULTANT [address] [place] [address] Referral ID Status Reason Start Date Expiration Date Visits Requested Visits Authorized [id number] Pending Review PCP Requested Referral 08/12/2021 08/12/2022 1 1 Specialty Diagnoses / Procedures Referred By Cheyenne t Referred To Contact Rheumatology Diagnoses Personal history of scleroderma Procedures CONSULT TO RHEUM/IMMUN DISEASE OFFICE/OUTPATIENT [facility] 60-74 MINUTES Tea Ruiz, REINFORCING METAL WORKER.PROFESSIONAL EMPLOYER CONSULTANT [address] [place] [address] Referral ID Status Reason Start Date Expiration Date Visits Requested Visits Authorized [id number] Pending Review PCP Requested Referral 08/12/2021 08/12/2022 1 1 Specialty Diagnoses / Procedures Referred By Cheyenne t Referred To Contact Diagnoses Well woman exam with routine gynecological exam Procedures CONSULT TO WOOD REPATCHER OFFICE/OUTPATIENT [facility] 60-74 MINUTES Tea Ruiz, REINFORCING METAL WORKER.PROFESSIONAL EMPLOYER CONSULTANT [address] [place] [address] Referral ID Status Reason Start Date Expiration Date Visits Requested Visits Authorized [id number] Pending Review PCP Requested Referral Auto-Generate d Referral 08/12/2021 08/12/2022 1 1 Specialty Diagnoses / Procedures Referred By Contac t Referred To Contact [facility] Diagnoses Chronic pain syndrome Procedures CONSULT TO PAIN MGT OFFICE/OUTPATIENT [facility] 60-74 MINUTES Tea Ruiz, REINFORCING METAL WORKER.PROFESSIONAL EMPLOYER CONSULTANT [address] [place] [address] Anest[facility] [place] [address] [place] [address] Referral ID Status Reason Start Date Expiration Date V isits Requested Visits Authorized [id number] Closed PCP Requested Referral 08/12/2021 08/12/2022 1 1 Specialty Diagnoses / Procedures Referred By Contac t Referred To Contact BR IMAGING Diagnoses Encounter for screening mammogram for breast cancer Procedures CORBIN SCREENING SCREENING MAMMOGRAPHY BI 2-VIEW BREAST INC CAD Tea Ruiz, REINFORCING METAL WORKER.PROFESSIONAL EMPLOYER CONSULTANT [address] [place] [address] [facility] [address] [place] [address] Referral ID Status Reason Start Date Expiration Date Visits Requested Visits Authorized [id number] Pending Review Auto-Generat ed Referral 08/12/2021 09/11/2022 1 1 Specialty Diagnoses / Procedures Referred By Contac t Referred To Contact Pain Management Diagnoses Chronic pain syndrome Personal history of scleroderma Acquired arm deformity, left Acquired deformity of left lower leg Procedures CONSULT TO PAIN MGT Tea Riuz, REINFORCING METAL WORKER.PROFESSIONAL EMPLOYER CONSULTANT [address] [place] [address] Referral ID Status Reason Start Date Expiration Date Visits Requested Visits Authorized [id number] Ref Not Required PCP Requested Referral 11/21/2021 11/21/2022 1 1 Specialty Diagnoses / Procedures Referred By Contac t Referred To Contact Psychology Diagnoses Chronic, continuous use of opioids Procedures CONSULT TO PSYCHOLOGY OFFICE/OUTPATIENT [facility] MDM 60-[place] [address] [facility] [address] [place] [address] Referral ID Status Reason Start Date Expiration Date Visits Requested Visits Authorized [id number] Pending Review PCP Requested Referral 11/18/2022 11/18/2023 1 1 Specialty Diagnoses / Procedures Referred By Contac t Referred To Contact XR IMAGING Diagnoses Thoracic spondylosis without myelopathy Procedures XR THORACIC LIMITED 2V AP/LAT RADEX SPINE THORACIC 2 VIEWS Sabrina Tineo MD [facility] [address] [place] [address] [place] [address] Referral ID Status Reason Start Date Expiration Date Visits Requested Visits Authorized [id number] Pending Review Auto-Generat ed Referral 11/18/2022 12/18/2023 1 1 Specialty Diagnoses / Procedures Referred By Contac t Referred To Contact XR IMAGING Diagnoses Lumbar spondylosis Low back pain, unspecified back pain laterality, unspecified chronicity, unspecified whether sciatica present Procedures XR LUMBAR GENERAL 3V AP/LAT/L5-S1 RADEX SPINE LUMBOSACRAL 2/3 VIEWS Sabrina Tineo MD [facility] [address] [place] [id number] [place] [address] Referral ID Status Reason Start Date Expiration Date Visits Requested Visits Authorized [id number] Pending Review Auto-Generat ed Referral 11/18/2022 12/18/2023 1 1 Specialty Diagnoses / Procedures Referred By Contac t Referred To Contact Radiology Diagnoses Screening for lung cancer Procedures CT lung screening low dose Bridenthal, Jeri, REINFORCING METAL WORKER - DIGITAL MEDIA STRATEGIST [address] [place] [address] Referral ID Status Reason Start Date Expiration Date V isits Requested Visits Authorized [id number] Pending Review 03/04/2023 03/03/2024 1 1 Specialty Diagnoses / Procedures Referred By Contac t Referred To Contact Radiology Diagnoses Mass on back Systemic sclerosis (HCC) Procedures MR lumbar spine wo contrast Bridenthal, Jeri, REINFORCING METAL WORKER - DIGITAL MEDIA STRATEGIST [address] [facility] [place] [address] [place] [address] Referral ID Status Reason Start Date Expiration Date V isits Requested Visits Authorized [id number] Pending Review 05/20/2023 05/19/2024 1 1 Specialty Diagnoses / Procedures Referred By Contac t Referred To Contact Radiology Diagnoses Mass on back Systemic sclerosis (HCC) Procedures MR thoracic spine wo contrast Abilioenthal Jeri, REINFORCING METAL WORKER - DIGITAL MEDIA STRATEGIST [address] [place] [address] Referral ID Status Reason Start Date Expiration Date V isits Requested Visits Authorized [id number] Pending Review 05/20/2023 05/19/2024 1 1 Specialty Diagnoses / Procedures Referred By Contac t Referred To Contact Radiology Diagnoses Screening for lung cancer Tobacco use disorder Procedures CT lung screening low dose Bridenthal, Jeri, REINFORCING METAL WORKER - DIGITAL MEDIA STRATEGIST [address] [place] [address] Referral ID Status Reason Start Date Expiration Date V isits Requested Visits Authorized [id number] Authorized 03/04/2023 03/03/2024 1 1 Referral ID Status Reason Start Date Expiration Date Visits Re quested Visits Authorized [id number] Closed 05/20/2023 05/19/2024 1 1 Referral ID Status Reason Start Date Expiration Date Visits Re quested Visits Authorized [id number] Closed 05/20/2023 05/19/2024 1 1 Specialty Diagnoses / Procedures Referred By Contac t Referred To Contact Physical Therapy Diagnoses Bulging lumbar disc Leg length discrepancy Procedures [place] OFFICE/OUTPATIENT NEW HIGH MDM 60 MINUTES Bridenthal, Jeri, REINFORCING METAL WORKER - DIGITAL MEDIA STRATEGIST [address] [place] [address] Referral ID Status Reason Start Date Expiration Date Visits Requested Visits Authorized [id number] Pending Review Eval and Treat 07/28/2023 01/24/2024 99 99 Scheduling Instructions [facility] Physical therapy [address] [facility] Summary Purpose Family History No Family History Records Found Relationship Condition Age at Onset Recorded Date/T [...] section No data available for this section Source Comments (unrecognize d section and content) In the event this informatio n is protected by the Federal Confidentiality of Alcohol and Drug Abuse Patient Records regulations: The Federal rules restrict any use of the information to criminally investigate or prosecute any alcohol or drug abuse patient.[facility] the event this information is protected by the Federal Confidentiality of Alcohol and Drug Abuse Patient Records regulations: The Federal rules restrict any use of the information to criminally investigate or prosecute any alcohol or drug abuse patient.[facility] HospitalIn the event this information is protected by the Federal Confidentiality of Alcohol and Drug Abuse Patient Records regulations: The Federal rules restrict any use of the information to criminally investigate or prosecute any alcohol or drug abuse patient.[facility] HospitalIn the event this information is protected by the Federal Confidentiality of Alcohol and Drug Abuse Patient Records regulations: The Federal rules restrict any use of the information to criminally investigate or prosecute any alcohol or drug abuse patient.[facility] HospitalIn the event this information is protected by the Federal Confidentiality of Alcohol and Drug Abuse Patient Records regulations: The Federal rules restrict any use of the information to criminally investigate or prosecute any alcohol or drug abuse patient.[facility] HospitalIn the event this information is protected by the Federal Confidentiality of Alcohol and Drug Abuse Patient Records regulations: The Federal rules restrict any use of the information to criminally investigate or prosecute any alcohol or drug abuse patient.[facility] HospitalIn the event this information is protected by the Federal Confidentiality of Alcohol and Drug Abuse Patient Records regulations: The Federal rules restrict any use of the information to criminally investigate or prosecute any alcohol or drug abuse patient.[facility] HospitalIn the event this information is protected by the Federal Confidentiality of Alcohol and Drug Abuse Patient Records regulations: The Federal rules restrict any use of the information to criminally investigate or prosecute any alcohol or drug abuse patient.[facility] HospitalIn the event this information is protected by the Federal Confidentiality of Alcohol and Drug Abuse Patient Records regulations: The Federal rules restrict any use of the information to criminally investigate or prosecute any alcohol or drug abuse patient.[facility] HospitalIn the event this information is protected by the Federal Confidentiality of Alcohol and Drug Abuse Patient Records regulations: The Federal rules restrict any use of the information to criminally investigate or prosecute any alcohol or drug abuse patient.[facility] HospitalIn the event this information is protected by the Federal Confidentiality of Alcohol and Drug Abuse Patient Records regulations: The Federal rules restrict any use of the information to criminally investigate or prosecute any alcohol or drug abuse patient.[facility] HospitalIn the event this information is protected by the Federal Confidentiality of Alcohol and Drug Abuse Patient Records regulations: The Federal rules restrict any use of the information to criminally investigate or prosecute any alcohol or drug abuse patient.[facility] HospitalIn the event this information is protected by the Federal Confidentiality of Alcohol and Drug Abuse Patient Records regulations: The Federal rules restrict any use of the information to criminally investigate or prosecute any alcohol or drug abuse patient.[facility] HospitalIn the event this information is protected by the Federal Confidentiality of Alcohol and Drug Abuse Patient Records regulations: The Federal rules restrict any use of the information to criminally investigate or prosecute any alcohol or drug abuse patient.[facility] Reason for Visit (unrecogniz ed section and content) Reason Comments Follow-up Specialty Diagnoses / Procedures Referred By Contac t Referred To Contact Osteoporosis Bone Health Diagnoses Osteopetrosis Osteoporosis, unspecified osteoporosis type, unspecified pathological fracture presence Jeri Trinidad, REINFORCING METAL WORKER - DIGITAL MEDIA STRATEGIST [address] [place] [address] Verna Barnett REINFORCING METAL WORKER - DIGITAL MEDIA STRATEGIST [address] [address] Referral ID Status Reason Start Date Expiration Date Visits Requested Visits Authorized [id number] Pending Review Specialty Services Required 03/08/2023 03/07/2024 1 1 Reason Comments Refill Request Reason Comments Establish Care Specialty Diagnoses / Procedures Referred By Contac t Referred To Contact Internal Medicine / INTERNAL MEDICINE Diagnoses est care, moved from [place], referral for pain management Procedures [address] [place] [address] Self Tea Ruiz, REINFORCING METAL WORKER.PROFESSIONAL EMPLOYER CONSULTANT [address] [place] [address] Referral ID Status Reason Start Date Expiration Date Visits Re quested Visits Authorized [id number] Closed 08/12/2021 02/14/2022 1 1 Reason Comments [...] Referred By Cheyenne t Referred To Contact Podiatry Diagnoses Callus of foot Procedures CONSULT TO PODIATRY OFFICE/OUTPATIENT NEW HIGH MDM 60-74 MINUTES Tea Ruiz APRN.PROFESSIONAL EMPLOYER CONSULTANT [address] [facility] [place] [address] [place] [address] Referral ID Status Reason Start Date Expiration Date V isits Requested Visits Authorized [id number] Closed PCP Requested Referral 08/15/2021 02/14/2022 1 1 Reason Comments Follow Up Reason Comments Pain Left shoulder pain x 6 weeks Reason Comments FYI-No Action Needed Reason Comments Consult Reason Comments New Patient Establish Care Reason Onset Date Comments Other 11/26/2022 Pain Shiraz. Reason Onset Date Comments Med Refill 12/21/2022 [...] Medicare Annual Wellness Visit Initial Health Maintenance GWT-VazmyWoibh-movkn d priorLung screen-pendedDexa vamrfe-pbjwqbVjmho-dhjjyw get [facility] Reason Onset Date Comments Referral 03/04/2023 Reason [...] Refill Specialty Diagnoses / Procedures Referred By Cheyenne bowles Referred To Contact Radiology Diagnoses Mass on back Systemic sclerosis (HCC) Procedures MR lumbar spine wo contrast Jeri Trinidad, REINFORCING METAL WORKER - DIGITAL MEDIA STRATEGIST [address] [place] [address] Referral ID Status Reason Start Date Expiration Date V isits Requested Visits Authorized [id number] Authorized 05/20/2023 05/19/2024 1 1 Specialty Diagnoses / Procedures Referred By Contac t Referred To Contact Radiology Diagnoses Mass on back Systemic sclerosis (HCC) Procedures MR thoracic spine wo contrast Bridenthal, Jeri, REINFORCING METAL WORKER - DIGITAL MEDIA STRATEGIST [address] [place] [address] Referral ID Status Reason Start Date Expiration Date V isits Requested Visits Authorized [id number] Authorized 05/20/2023 05/19/2024 1 1 Specialty Diagnoses / Procedures Referred By Contac t Referred To Contact Radiology Diagnoses Screening for lung cancer Tobacco use disorder Procedures CT lung screening low dose Bridenthal, Jeri, REINFORCING METAL WORKER - DIGITAL MEDIA STRATEGIST [address] [place] [address] Referral ID Status Reason Start Date Expiration Date V isits Requested Visits Authorized [id number] Authorized 03/04/2023 03/03/2024 1 1 Referral ID Status Reason Start Date Expiration Date Visits Re quested Visits Authorized [id number] Closed 05/20/2023 05/19/2024 1 1 Referral ID Status Reason Start Date Expiration Date Visits Re quested Visits Authorized [id number] Closed 05/20/2023 05/19/2024 1 1 Reason Onset [...] Medicare Annual Wellness Visit Initial Health Maintenance DDR-XkpogGbhmf-ihpuu d priorLung screen-pendedDexa nfwmzj-ocosauLuuqa-cwbhif [facility] Reason Onset Date Comments Med Refill 03/02/2024 [...] Care Teams (unrecognized sec tion and content) Laborer Filter Plant Relationship Specialty Start Date End Date Galdino Keita MD [address] [place] [address] PCP - General Family Practice 12/24/09 Laborer Filter Plant Relationship Specialty Start Date End Date Toribio Ernandez MD [employer] [place] [address] PCP - General Internal Medicine 08/12/21 Laborer Filter Plant Relationship Specialty Start Date End Date Toribio Ernandez MD [address] [place] [address], [place] [address] PCP - General Internal Medicine 08/12/21 Laborer Filter Plant Relationship Specialty Start Date End Date Toribio Ernandez MD [address] [place] [address], [place] [address] PCP - General Internal Medicine 08/12/21 Laborer Filter Plant Relationship Specialty Start Date End Date Toribio Ernandez MD [address] [place] [address], [place] [address] PCP - General Internal Medicine 08/12/21 Laborer Filter Plant Relationship Specialty Start Date End Date Toribio Ernandez MD [address] [place] [address], [place] [address] PCP - General Internal Medicine 08/12/21 Laborer Filter Plant Relationship Specialty Start Date End Date Toribio Ernandez MD [address] [place] [address], [place] [address] PCP - General Internal Medicine 08/12/21 Laborer Filter Plant Relationship Specialty Start Date End Date Toribio Ernandez MD [address] [place] [address], [place] [address] PCP - General Internal Medicine 08/12/21 Laborer Filter Plant Relationship Specialty Start Date End Date Toribio Ernandez MD [address] [place] [address], [place] [address] PCP - General Internal Medicine 08/12/21 Laborer Filter Plant Relationship Specialty Start Date End Date Toribio Ernandez MD [address] [place] [address], [place] [address] PCP - General Internal Medicine 08/12/21 Laborer Filter Plant Relationship Specialty Start Date End Date Toribio Ernandez MD [address] [place] [address] PCP - General Internal Medicine 08/12/21 Team Status: Active Member Role Status Dates Ottoniel Uriaspkins Family Provider Active [employer] SCALE BALANCER, SCALE BALANCER-C Primary Care Provider Active Team Status: Inactive Member Role Status Dates Tea Ruiz SCALE BALANCER, SCALE BALANCER-C Primary Care Provider, Referring Provider Active MARY Soriano Attending Provider Active Team Status: Inactive Member Role Status Dates Tea Ruiz SCALE BALANCER, SCALE BALANCER-C Primary Care Provider Active Dr. Sanjeev Jose MD Attending Provider Active Team Status: Active Member Role Status Dates Tea Ruiz SCALE BALANCER, SCALE BALANCER-C Primary Care Provider Active MARY Soriano Attending Provider Active Team Status: Inactive Member Role Status Dates Tea Ruiz SCALE BALANCER, SCALE BALANCER-C Primary Care Provider Active Dr. Rayo Merino MD Attending Provider Active [employer] SCALE BALANCER, SCALE BALANCER-C Referring Provider Active Team Status: Inactive Member Role Status Dates [employer] SCALE BALANCER, SCALE BALANCER-C Primary Care Provider, Referr ing Provider Active Dr. Rayo Merino MD Attending Provider Active Team Status: Inactive Member Role Status Dates [employer] SCALE BALANCER, SCALE BALANCER-C Primary Care Provider Active Dr. Rayo Merino MD Attending Provider Active Team Status: Inactive Member Role Status Dates [employer] SCALE BALANCER, SCALE BALANCER-C Primary Care Provider, Referr ing Provider Active Dr. Rayo Cantu DO Attending Provider Active Team Status: Active Member Role Status Dates [employer] SCALE BALANCER, SCALE BALANCER-C Primary Care Provider Active SAW NGUYEN Attending Provider, Referring Provider A ctive Team Status: Inactive Member Role Status Dates [employer] Umair SCALE BALANCER, SCALE BALANCER-C Primary Care Provider Active SAW NGUYEN Attending Provider, Referring Provider A ctive Team Status: Inactive Member Role Status Dates [employer] SCALE BALANCER, SCALE BALANCER-C Primary Care Provider Active Dr. Jimmy Crouch MD Emergency Provider Active Team Status: Inactive Member Role Status Dates [employer]is Umair SCALE BALANCER, SCALE BALANCER-C Primary Care Provider Active Dr. Jimmy Crouch MD Attending Provider, Emergency Pro vider Active Team Status: Active Member Role Status Dates Ottoniel Perez Family Provider Active TEA DAILEY Primary Care Provider Active Team Status: Inactive Member Role Status Dates [employer] SCALE BALANCER, SCALE BALANCER-C Primary Care Provider Active Dr. Sanjeev Jose MD Attending Provider Active Team Status: Inactive Member Role Status Dates TEA, MAXX Primary Care Provider Active Dr. Yovani Rosario MD Attending Provider, Referring Pr ovider Active Laborer Filter Plant Relationship Specialty Start Date End Date [employer]x, Tea L, PA-C [address], [place] [id number] Referring Family Medicine 11/17/22 Laborer Filter Plant Relationship Specialty Start Date End [place] [address] PCP - General Family Medicine 11/24/22 Laborer Filter Plant Relationship Specialty Start Date End Date Jose D Slaughter MD [address] [place] [address] PCP - General Family Medicine 11/24/22 Laborer Filter Plant Relationship Specialty Start Date End [place] [address] PCP - General Family Medicine 11/24/22 Laborer Filter Plant Relationship Specialty Start Date End [place] [address] PCP - General Family Medicine 11/24/22 Laborer Filter Plant Relationship Specialty Start Date End Date Jose D Slaughter MD [address] [place] [address] PCP - General Family Medicine 11/24/22 Laborer Filter Plant Relationship Specialty Start Date End Date Jose D Slaughter MD [address] [facility] [place] [address] PCP - General Family Medicine 11/24/22 Laborer Filter Plant Relationship Specialty Start Date End Date Jose D Slaughter MD [address] [facility] [place] [address] PCP - General Family Medicine 11/24/22 Laborer Filter Plant Relationship Specialty Start Date End Date Jose D Slaughter MD [facility] [place] [address] PCP - General Family Medicine 11/24/22 Laborer Filter Plant Relationship Specialty Start Date End Date Jose D Slaughter MD [address] [facility] [place] [address] PCP - General Family Medicine 11/24/22 Laborer Filter Plant Relationship Specialty Start Date End Date Jose D Slaughter MD [address] [place] [address] [address] PCP - General Family Medicine 11/24/22 Team Status: Active Member Role Status Dates Ottoniel Perez Family Provider Active Jerikalyan Trinidad Primary Care Provider Active Team Status: Inactive Member Role Status Dates Dr. Rayo Cantu DO Attending Provider Active Team Status: Inactive Member Role Status Dates Dr. Sanjeev Jose MD Attending Provider Active Team Status: Inactive Member Role Status Dates Dr. Bianca Powers MD Emergency Provider Active Jerilakshmi Trinidad Primary Care Provider Active Laborer [employer] Relationship Specialty Start Date End Date Jose D Slaughter MD [address] [facility] [place] [address] PCP - General Family Medicine 11/24/22 Laborer [employer] Plant Relationship Specialty Start Date End Date Jose D Slaughter MD [address] [facility] [place] [address] PCP - General Family Medicine 11/24/22 Laborer [employer] Plant Relationship Specialty Start Date End Date Jose D Slaughter MD [address] [facility] [place] [address] PCP - General Family Medicine 11/24/22 Laborer Filter Plant Relationship Specialty Start Date End Date Jose D Slaughter MD [address] [facility] [place] [address] PCP - General Family Medicine 11/24/22 Laborer Filter Plant Relationship Specialty Start Date End Date Jose D Slaughter MD [address] [facility] [place] [address] PCP - General Family Medicine 11/24/22 Laborer Filter Plant Relationship Specialty Start Date End Date Jose D Slaughter MD [address] [facility] [place] [address] PCP - General Family Medicine 11/24/22 Laborer Filter Plant Relationship Specialty Start Date End Date Jose D Slaughter MD [address] [facility] [place] [address] PCP - General Family Medicine 11/24/22 Laborer Filter Plant Relationship Specialty Start Date End Date Jose D Slaughter MD [address] [facility] [place] [address] PCP - General Family Medicine 11/24/22 Laborer Filter Plant Relationship Specialty Start Date End Date Jose D Slaughter MD [address] [facility] [place] [address] PCP - General Family Medicine 11/24/22 Laborer [employer] Plant Relationship Specialty Start Date End Date Jose D Slaughter MD [address] [facility] [place] [address] PCP - General Family Medicine 11/24/22 Laborer Filter Plant Relationship Specialty Start Date End Date Jose D Slaughter MD [facility] [place] [address] PCP - General Family Medicine 11/24/22 Laborer Filter Plant Relationship Specialty Start Date End Date Jose D Slaughter MD [address] [facility] [place] [address] PCP - General Family Medicine 11/24/22 Laborer Filter Plant Relationship Specialty Start Date End Date Jose D Slaughter MD [facility] [place] [address] PCP - General Family Medicine 11/24/22 Laborer [employer] Plant Relationship Specialty Start Date End Date Jose D Sluaghter MD [address] [facility] [place] [address] PCP - General Family Medicine 11/24/22 Laborer Filter Plant Relationship Specialty Start Date End Date Jose D Slaughter MD [facility] [place] [address] PCP - General Family Medicine 11/24/22 Laborer Filter Plant Relationship Specialty Start Date End Date Jose D Slaughter MD [address] [facility] [place] [address] PCP - General Family Medicine 11/24/22 Laborer Filter Plant Relationship Specialty Start Date End Date Jose D Slaughter MD [address] [facility] [place] [address] PCP - General Family Medicine 11/24/22 Laborer Filter Plant Relationship Specialty Start Date End Date Jose D Slaughter MD [address] [facility] [place] [address] PCP - General Family Medicine 11/24/22 Laborer Filter Plant Relationship Specialty Start Date End Date Jose D Slaughter MD [address] [facility] [place] [address] PCP - General Family Medicine 11/24/22 Laborer Filter Plant Relationship Specialty Start Date End Date Jose D Slaughter MD [address] [facility] [place] [address] PCP - General Family Medicine 11/24/22 Laborer [employer] Plant Relationship Specialty Start Date End Date Jose D Salughter MD [address] [facility] [place] [address] PCP - General Family Medicine 11/24/22 Laborer Filter Plant Relationship Specialty Start Date End Date Jose D Slaughter MD [address] [facility] [place] [address] PCP - General Family Medicine 11/24/22 Laborer Filter Plant Relationship Specialty Start Date End Date oJse D Slaughter MD [address] [facility] [place] [address] PCP - General Family Medicine 11/24/22 Laborer Filter Plant Relationship Specialty Start Date End Date Jose D Slaughter MD [address] [facility] [place] [address] PCP - General Family Medicine 11/24/22 Laborer Filter Plant Relationship Specialty Start Date End Date Jose D Slaughter MD [address] [facility] [place] [address] PCP - General Family Medicine 11/24/22 Laborer Filter Plant Relationship Specialty Start Date End Date Jose D Slaughter MD [address] [facility] [place] [address] PCP - General Family Medicine 11/24/22 Laborer Filter Plant Relationship Specialty Start Date End Date Jose D Slaughter MD [address] [facility] [place] [address] PCP - General Family Medicine 11/24/22 Laborer Filter Plant Relationship Specialty Start Date End Date Jose D Slaughter MD [address] [place] [place] [address] PCP - General Family Medicine 11/24/22 Laborer Filter Plant Relationship Specialty Start Date End Date Jose D Slaughter MD [address] [facility] [place] [address] PCP - General Family Medicine 11/24/22 Laborer Filter Plant Relationship Specialty Start Date End Date Jose D Slaughter MD [facility] [place] [address] PCP - General Family Medicine 11/24/22 Laborer Filter Plant Relationship Specialty Start Date End Date Jose D Slaughter MD [facility] [place] [address] PCP - General Family Medicine 11/24/22 Laborer Filter Plant Relationship Specialty Start Date End Date Jose D Slaughter MD [facility] [place] [address] PCP - General Family Medicine 11/24/22 Laborer Filter Plant Relationship Specialty Start Date End Date Jose D Slaughter MD [facility] [place] [address] PCP - General Family Medicine 11/24/22 Laborer Filter Plant Relationship Specialty Start Date End Date Jose D Slaughter MD [facility] [place] [address] PCP - General Family Medicine 11/24/22 Laborer Filter Plant Relationship Specialty Start Date End Date Jose D Slaughter MD [facility] [place] [address] PCP - General Family Medicine 11/24/22 Laborer Filter Plant Relationship Specialty Start Date End Date Jose D Slaughter MD [facility] [place] [address] PCP - General Family Medicine 11/24/22 Laborer Filter Plant Relationship Specialty Start Date End Date Jose D Slaughter MD [address] [facility] [place] [address] PCP - General Family Medicine 11/24/22 Laborer Filter Plant Relationship Specialty Start Date End Date Jose D Slaughter MD [address] [facility] [place] [address] PCP - General Family Medicine 11/24/22 Laborer Filter Plant Relationship Specialty Start Date End Date Jose D Slaughter MD [address] [facility] [place] [address] PCP - General Family Medicine 11/24/22 Laborer Filter Plant Relationship Specialty Start Date End Date Jose D Slaughter MD [address] [facility] [place] [address] PCP - General Family Medicine 11/24/22 Laborer Filter Plant Relationship Specialty Start Date End Date Jose D Slaughter MD [address] [facility] [place] [address] PCP - General Family Medicine 11/24/22 Laborer Filter Plant Relationship Specialty Start Date End Date Jose D Slaughter MD [address] [facility] [place] [address] PCP - General Family Medicine 11/24/22 Laborer Filter Plant Relationship Specialty Start Date End Date Jose D Slaughter MD [address] [facility] [place] [address] PCP - General Family Medicine 11/24/22 Laborer Filter Plant Relationship Specialty Start Date End Date Jose D Slaughter MD [address] [facility] [place] [address] PCP - General Family Medicine 11/24/22 Laborer Filter Plant Relationship Specialty Start Date End Date Jose D Slaughter MD [address] [facility] [place] [address] PCP - General Family Medicine 11/24/22 Laborer Filter Plant Relationship Specialty Start Date End Date Jose D Slaughter MD [address] [facility] [place] [address] PCP - General Family Medicine 11/24/22 Laborer Filter Plant Relationship Specialty Start Date End Date Jose D Slaughter MD [address] [facility] [place] [address] PCP - General Family Medicine 11/24/22 Laborer Filter Plant Relationship Specialty Start Date End Date Jose D Slaughter MD [address] [facility] [place] [address] PCP - General Family Medicine 11/24/22 Laborer Filter Plant Relationship Specialty Start Date End Date Jose D Slaughter MD [address] [facility] [place] [address] PCP - General Family Medicine 11/24/22 Laborer Filter Plant Relationship Specialty Start Date End Date Jose D Slaughter MD [address] [facility] [place] [address] PCP - General Family Medicine 11/24/22 Laborer Filter Plant Relationship Specialty Start Date End Date Jose D Slaughter MD [address] [facility] [place] [address] PCP - General Family Medicine 11/24/22 Laborer Filter Plant Relationship Specialty Start Date End Date Jose D Slaughter MD [address] [facility] [place] [address] PCP - General Family Medicine 11/24/22 Jeri Trinidad REINFORCING METAL WORKER - DIGITAL MEDIA STRATEGIST [address] [place] [address] [place] [address] Nurse Practitioner Nurse Practitioner Family 07/06/24 Laborer [employer] Plant Relationship Specialty Start Date End Date Jose D Slaughter MD [address] [facility] [place] [address] PCP - General Family Medicine 11/24/22 Jeri Trinidad REINFORCING METAL WORKER - DIGITAL MEDIA STRATEGIST [address] [place] [address] [place] [address] Nurse Practitioner Nurse Practitioner Family 07/06/24 Laborer Filter Plant Relationship Specialty Start Date End Date Jose D Slaughter MD [address] [facility] [place] [address] PCP - General Family Medicine 11/24/22 Jeri Trinidad, REINFORCING METAL WORKER - DIGITAL MEDIA STRATEGIST [address] [facility] [place] [address] Nurse Practitioner Nurse Practitioner Family 07/06/24 Laborer Filter Plant Relationship Specialty Start Date End Date Jose D Slaughter MD [address] [facility] [place] [address] PCP - General Family Medicine 11/24/22 Jeri Trinidad REINFORCING METAL WORKER - DIGITAL MEDIA STRATEGIST [address] [place] [address] Nurse Practitioner Nurse Practitioner [facility] 07/06/24 Team Status: Active Member Role/Relationship Status Dates Ottoniel Perez Family Provider Active Jeri Trinidad Primary Care Provider Active Team Status: Inactive Member Role/Relationship Status Dates Jeri Trinidad Primary Care Provider Active Start: September 11, 2024 End: September 11, 2024 Jeri Trinidad Referring Provider Active Sta rt: September 11, 2024 End: September 11, 2024 Shady Burks MD Attending Provider Active St art: September 11, 2024 End: September 11, 2024 Laborer Filter Plant Relationship Specialty Start Date End Date Jose D Slaughter MD [address] [place] [address] PCP - General Family Medicine 11/24/22 Jeri Trinidad REINFORCING METAL WORKER - DIGITAL MEDIA STRATEGIST [address] [place] [address] Nurse Practitioner Nurse Practitioner [facility] 07/06/24 Team Status: Active Member Role/Relationship Status Dates Jeri Trinidad Primary Care Provider Active Team Status: Inactive Member Role/Relationship Status Dates Jeri Trinidad Primary Care Provider Active Start: October 07, 2024 End: October 07, 2024 Shady Burks MD Attending Provider Active St art: October 07, 2024 End: October 07, 2024 Shady Burks MD Referring Provider Active St art: October 07, 2024 End: October 07, 2024 INFORMATION SOURCE (unrecogn ized section and content) DATE CREATED AUTHOR 11/16/2021 [facility] DATE CREATED AUTHOR AUTHOR'S ORGANIZ ATION 11/22/2022 [facility] DATE CREATED AUTHOR AUTHOR'S ORGANIZ ATION 10/18/2023 [facility] ([place] DATE CREATED AUTHOR AUTHOR'S ORGANIZ ATION 10/08/2024 [facility] DATE CREATED AUTHOR AUTHOR'S ORGANIZ ATION 10/15/2024 [facility] DATE CREATED AUTHOR AUTHOR'S ORGANIZ ATION 10/15/2024 [facility] Care Team (unrecognized sect ion and content) Care Team Personnel Name: SOLIS SHELL APRN-GARRISON Position: P4 Advanced Practice Nurse Member Role: Primary Care Physician Address: Address: [address] [place] [address] Care Team Related Persons Name: RADHA FRAGA Care Team Personnel Name: SOLIS SHELL APRN-GARRISON Position: P4 Advanced Practice Nurse Member Role: Primary Care Physician Address: Address: [address] [place] [address] Care Team Related Persons Name: RADHA FRAGA Care Team Personnel Name: SOLIS SHELL APRN-GARRISON Position: P4 Advanced Practice Nurse Member Role: Primary Care Physician Address: Address: [address] [place] [address] Care Team Related Persons Name: RADHA FRAGA Care Team Personnel Name: SOLIS SHELL APRN-DIGITAL MEDIA STRATEGIST Position: P4 Advanced Practice Nurse Member Role: Primary Care Physician Address: Address: [address] [place] [address] Care Team Related Persons Name: RADHA FRAGA Care Team Personnel Name: SOLIS SHELL APRN-DIGITAL MEDIA STRATEGIST Position: P4 Advanced Butane Compressor Operator Member Role: Primary Care Physician Address: Address: [address] [place] [address] Care Team Related Persons Name: RADHA MONCADA [...] BE BASED ON THE PRIMARY CLINICAL RECORDS. [facility] [employer] [facility]. provides no warranty or guarantee of the accuracy or completeness of information in this document.
== END 2024-10-15 10:06 | disposition home or self-care (01) ==
PROVIDERS: Emergency Provider Emergency Medicine; Visit Provider Emergency Medicine
DX: F17.210 Nicotine dependence, cigarettes, uncomplicated (principal); L03.313 Cellulitis of chest wall
CPT/HCPCS: 99282

== ENCOUNTER 2024-11-05 09:58 | Emergency (ER) | payer MEDICARE, MEDICAID, SELFPAY ==
[2024-11-05 09:59] VITALS: BP 145/84; PULSE 98; RESP 18; TEMP 36.6; O2SAT 97; BMI 24.3
--- NOTE | 2024-11-05 10:16 | EDS_ITS ---
HPI History of Present Illness Chief Complaint: Wound Check Narrative Narrative: 54-year-old female past medical history of scleroderma, affected left upper extremity, presents with blistering sunburn to the left hand that she has had for the last 2 weeks. She relates history that she had cellulitis and had been taking doxycycline. 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 Although she has been using sunscreen, she states she sustained a sunburn to her left hand on the dorsal aspect approximately 2 weeks ago. Over the last 4 to 5 days, it blistered up. She has an appointment with dermatology on Wednesday, 2 days from now, but did not want to let it wait. She denies any fevers or chills, no nausea or vomiting, no other symptoms but states the area is somewhat painful. [facility] Medical History Right shoulder pain Left rotator cuff tear arthropathy Vitamin D deficiency Soft tissue mass Right hip pain Osteoporosis Muscle spasms of both lower extremities Insomnia Golfers elbow of right upper extremity Depression with anxiety Carpal tunnel syndrome Blindness of left eye B12 deficiency Acid reflux High cholesterol Scleroderma History of chronic pain Home Medications ?Medication ?Instructions ?Recorded ?Last Taken ?Type amitriptyline 50 mg tablet 50 mg PO QHS 12/10/21 Unkno wn History atorvastatin 20 mg tablet 20 mg PO QHS 12/10/21 Unknow n History dexlansoprazole 60 mg 60 mg PO DAILY 12/10/21 Unkn own History capsule,biphase delayed release eszopiclone 3 mg tablet 3 mg PO QHS 12/10/21 Unknown History cetirizine 10 mg capsule (Zyrtec) 10 mg PO DAILY PRN P RN allergies 03/04/22 Unknown History cholecalciferol (vitamin D3) 1,250 1,250 mcg PO QWEEK 03/04/22 Unknown History mcg (50,000 unit) capsule fenofibric acid (choline) 45 mg 45 mg PO DAILY 3 Unknown History capsule,delayed release oxycodone-acetaminophen 5 mg-325 1 tab PO TID PRN 04/16 09/07 Unknown History mg tablet sulfamethoxazole 800 1 tab PO BID #14 TABLETS 09/07 Unknown Rx mg-trimethoprim 160 mg tablet ondansetron 4 mg disintegrating 4 mg PO Q8H PRN PRN Na usea #10 tabs 10/15/24 Unknown Rx tablet prednisone 20 mg tablet 40 mg (2 x 20 mg) PO DAILY # 8 tabs 11/05/24 Unknown Rx Allergy/AdvReac Type Severity Reaction Status Date / Time duloxetine (From Cymbalta) Allergy Chest Verified 11/05/24 09:59 tightness trazodone Allergy Chest Verified 11/05/24 09:59 tightness tramadol AdvReac Other Verified 11/05/24 09:59 Family History Aunt Cancer lung Mother Diabetes Surgical History History of carpal tunnel surgery H/O eye surgery Hx of right knee surgery Social History household members: other details: step dad Smoking Status: Current every day smoker tobacco type: cigarettes alcohol intake: never substance use type: does not use what type of physical activity do you participate in: other details: stretches frequency: daily ROS ROS ED ROS Narrative Review of systems positive for sunburn to dorsum of left hand. Blistering starting 4 to 5 days ago with continued sun exposure. No fevers or chills, no nausea or vomiting, no exacerbating or alleviating factors. States has been keeping the area covered with a Band-Aid. EXAM Physical Exam Narrative Exam Narrative: Afebrile. Vital signs noted. Nontoxic-appearing. Cardiovascular examination reveals regular rate and rhythm. Lungs are clear to auscultation bilaterally. Abdomen soft and nontender without guarding or rebound. Inspection of the left upper extremity does show scleroderma changes. There is erythema noted to the dorsum of the hand with moderately sized blister. No crepitance. No erythema to forearm or crepitance. Const Vital Signs: 11/05/24 09:59 Temperature 97.9 F Temperature Source Oral Pulse Rate 98 Respiratory Rate 18 Blood Pressure 145/84 H Blood Pressure Mean 104 Pulse Ox 97 MDM MDM MDM Narrative Medical decision making narrative: Differential diagnosis includes but not limited to sunburn with blistering versus cellulitis versus bullous pemphigoid. Patient has continuous sun exposure so I favor sunburn with blistering. I have very low suspicion for necrotizing fasciitis as her symptoms have been ongoing for the last 4 to 5 days with the blistering, and she has had sunburn for 2 weeks. I do not feel she requires more antibiotics. She is not showing any systemic signs of SIRS. I do not feel she requires laboratory work or imaging. Instead she will be started on prednisone. She was given 60 mg here and a burst written for the next 5 days. Return instructions were reviewed. Disposition is discharged home in stable condition. History & Record Review Discussion w/independent historian: Patient Additional record(s) reviewed:: Prior ED visit Discharge Plan Triage Chief Complaint: Wound Check ED Provider: Spencer Marrero Dx/Rx/DC Orders Clinical Impression: Sunburn, blistering, Scleroderma Instructions: ED Sunburn, ED Wound Check (No Infection) Prescriptions: New prednisone 20 mg tablet 40 mg PO DAILY Qty: 8 0RF No Action dexlansoprazole 60 mg capsule,biphase delayed releas 60 mg PO DAILY Patient Comments: TAKE 1 CAPSULE BY MOUTH ONCE DAILY amitriptyline 50 mg tablet 50 mg PO QHS eszopiclone 3 mg tablet 3 mg PO QHS Patient Comments: TAKE 1 TABLET BY MOUTH ONCE DAILY AT BEDTIME atorvastatin 20 mg tablet 20 mg PO QHS Patient Comments: TAKE 1 TABLET BY MOUTH AT BEDTIME cholecalciferol (vitamin D3) 1,250 mcg (50,000 unit) capsule 1,250 mcg PO QWEEK fenofibric acid (choline) 45 mg capsule,delayed release(DR/EC) 45 mg PO DAILY Zyrtec 10 mg capsule 10 mg PO DAILY PRN PRN (Reason: allergies) oxycodone-acetaminophen 5-325 mg tablet 1 tab PO TID PRN ondansetron 4 mg tablet,disintegrating 4 mg PO Q8H PRN PRN (Reason: Nausea) Qty: 10 0RF sulfamethoxazole-trimethoprim 800-160 mg tablet 1 tab PO BID Qty: 14 0RF Primary Care Provider: Jeri Yates Referrals: Jeri Yates [Primary Care Provider] - 3-5 Days if not improving Activity Restrictions/Additional Instructions: Follow-up with a acoustics teacher as scheduled 2 days from now on Wednesday. It does not appear that your sunburn is infected and you do not currently require antibiotics. Return with fever, new or worsening symptoms. Print Language: [place] Disposition Disposition: Home, Self Care
[2024-11-05 10:25] VITALS: BP 139/78; PULSE 90; RESP 18; TEMP 36.6; O2SAT 96
--- OUTSIDE RECORDS SUMMARY | 2024-11-05 10:30 | XMS RPT_ITS | CCD ---
Author Organization [facility] Care Team Providers Care Mainspring Strip Gauger Name Role Phone Bossman DASH, Galdino Carballo Primary Care Provider [phone] Toribio Ernandez MD Primary Care Provider Toribio Ernandez MD Primary Care Provider TORIBIO ERNANDEZ Referring Unavailable CAMELIA JOE Attending Unavailable TORIBIO ERNANDEZ Primary Care Unavailable MARCELLUS ROSADO Attending Unavailable CAMELIA JOE Referring Unavailable TORIBIO ERNANDEZ Primary Care Unavailable Joseph HASHER MACHINE OPERATOR, HASHER MACHINE OPERATOR-C Tea Primary Care Provider Joseph HASHER MACHINE OPERATOR, HASHER MACHINE OPERATOR-C Tea Referring Provider MARY Pan Attending Provider Dr. Sanjeev Jose Attending Provider SUMAYA MURPHY-SOLIS JI Primary Care Physician Joseph HASHER MACHINE OPERATOR, HASHER MACHINE OPERATOR-C Tea Primary Care Provider Joseph HASHER MACHINE OPERATOR, HASHER MACHINE OPERATOR-C Tea Referring Provider MARY Pan Attending Provider Dr. Sanjeev Jose Attending Provider Dr. Rayo Merino Attending Provider Sumaya LINDSEY, HASHER MACHINE OPERATOR-C [facility] Referring Provider [phone] Sumaya HASHER MACHINE OPERATOR, HASHER MACHINE OPERATOR-C [facility] Primary Care Provider Joseph HASHER MACHINE OPERATOR, HASHER MACHINE OPERATOR-C Tea Primary Care Provider Joseph HASHER MACHINE OPERATOR, HASHER MACHINE OPERATOR-C Tea Referring Provider Lu PA, PA Casi Attending Provider [phone] Dr. Sanjeev Jose Attending Provider Dr. Rayo Merino Attending Provider Sumaya HASHER MACHINE OPERATOR, HASHER MACHINE OPERATOR-C [facility] Referring Provider [phone] Sumaya HASHER MACHINE OPERATOR, HASHER MACHINE OPERATOR-C [facility] Primary Care Provider Dr. Rayo Cantu Attending Provider [phone] Joseph HASHER MACHINE OPERATOR, HASHER MACHINE OPERATOR-C Tea Primary Care Provider MARY Pan Attending Provider [phone] VACCARELLI PA-C, TEA Primary Care Physician Sumaya HASHER MACHINE OPERATOR, HASHER MACHINE OPERATOR-C [facility] Primary Care Provider uSmaya HASHER MACHINE OPERATOR, HASHER MACHINE OPERATOR-C [facility] Referring Provider [phone] Dr. Rayo Cantu Attending Provider [phone] Dr. Sanjeev Jose Attending Provider [phone] Vaccarelli PA-C, Tea L Unavailable SABRINA TINEO Attending Unavailable Jose D Goodman MD Primary Care Provider Dr. Rayo Cantu Attending Provider [phone] Dr. Sanjeev Jose Attending Provider [phone] PHYSICIAN, NONE Primary Care Physician Unavailab le BRIDENTHAL MULTICULTURAL INTERNSHIP/INVASIVE MANAGER, JERI Attending Evelia vailable PHYSICIAN, NONE Primary Care Unavailable Bridenthal MULTICULTURAL INTERNSHIP - INVASIVE MANAGER, Jeri Unavailable Bridenthal, Jeri Primary Care Provider Bridenthal, Jeri Referring Provider Shady Burks MD Attending Provider Bridenthal MULTICULTURAL INTERNSHIP - INVASIVE MANAGER, Jeri Unavailable Shady Burks MD Referring Provider BRIDENTHAL MULTICULTURAL INTERNSHIP/INVASIVE MANAGER, JERI Primary Care Physic gabriel Dr. Ray Wilson DO Emergency Provider THANIA CLINTON DO Attending Unavailable PHYSICIAN, NONE Primary Care Unavailable BRIDENTHAL MULTICULTURAL INTERNSHIP/INVASIVE MANAGER, JERI Attending Evelia vailable PHYSICIAN, NONE Primary Care Unavailable SHANE DASH, DR BRANDI Miranda Attending Unavaila ble PHYSICIAN, NONE Primary Care Unavailable BRIDENTHAL MULTICULTURAL INTERNSHIP/INVASIVE MANAGER, JERI Primary Care Evelia vailable MALVIN MANCUSO Attending Unavailable PHYSICIAN, NONE Primary Care Unavailable NATASHA BRIONES MD Attending Unavailable Mollison, Shady Attending Unavailable Bridenthal, Jeri Primary Care Unavailable Bridenthal, Jeri Referring Unavailable Bridenthal, Jeri Referring Unavailable Mollison, Shady Attending Unavailable Bridenthal, Jeri Primary Care Unavailable Bridenthal, Jeri Referring Unavailable Rayo Cantu Attending Unavailable Bridenthal, Jeri Primary Care Unavailable Mollison, Shady Attending Unavailable Bridenthal, Jeri Primary Care Unavailable Mollison Shady Referring Unavailable Bridenthal, Jeri Primary Care Unavailable Ray Wilson Attending Unavailable Bridenthal, Jeri Primary Care Unavailable Song Hampton Attending Unavailable Bridenthal, Jeri Primary Care Unavailable Mollison, Shady Attending Unavailable Bridenthal, Jeri Referring Unavailable DEEPA CASSIDY Attending Unavailable BRIDENTHAL, JERI Referring Unavailable MAXINE, JOSE D Primary Care Unavailable [...] Unavailable MAXINE, JOSE D Primary Care Unavailable Allergies Allergy Classification Reported Allergen(s) Allergy Type Date of Onset Reaction(s) Facility DULoxetine (2 sources) DULoxetine Drug Allergy [address] [facility] Opioid Agonists (2 sources) traMADol Drug Allergy 2 Other, Unknown [facility] Serotonin Reuptake Inhibitors (SSRIs) (2 sources) traZODone Drug Allergy [address] [facility] (20 sources) DULoxetine; Translations: [DULOXETINE] Drug Allergy 2 Other: See Comments, Other [facility] Work Phone: (20 sources) traMADol; Translations: [TRAMADOL] Drug Allergy 2 Other: See Comments, Other, Unknown [facility] Work Phone: (20 sources) traZODone; Translations: [TRAZODONE] Drug Allergy 2 Other: See Comments [facility] Work Phone: (1 source) Acetaminophen / oxyCODONE Drug Allergy 0 GI Upset [facility] (20 sources) DULoxetine Drug Allergy [address] [facility] (20 sources) Pregabalin Propensity to adverse reactions [address] [facility] (1 source) DULoxetine Drug Allergy 5 [facility] (1 source) traMADol Drug Allergy 5 [facility] (1 source) traZODone Drug Allergy 5 [facility] Medications Current Medications Medication [...] d/c., # 28 tab(s), 0 Refill(s), Pharmacy: [id number], Degenerative joint disease (DJD) [...] tablet TAKE 1 TABLET BY MOUTH NIGHTLY 30 tablet 5 10/06/2024 Active Start: 06-29-2018 End: 08-12-2021 amitriptyline 50 mg oral tab let Dose : 50 mg = 1 tab(s), Oral, qHS, # 30 tab(s), 3 Refill(s), [id number], 137.2, cm, 08/11/22 13:50:00 EDT, Height, kg, [...] qDay, # 30 tab(s), 0 Refill(s), Pharmacy: [id number], 137.2, cm, 05/02/22 3:41:00 [...] BY MOUTH EVERY DAY IN THE EVENING 30 tablet 5 10/06/2024 Active Comment on above: Take 1 tablet by maura th daily at bedtime. Take 20 mg by mouth daily at bedtime. 24 hr buPROPion hydrochloride 150 mg extended release oral tablet (20 sources) Aminoketone Start: 3 End: 3 take 1 tablet by mouth every hour, then take 1 tablet by mouth every twenty-four hours buPROPion 150 mg/24 hours (XL) oral tablet, extended release Dose : 150 mg = 1 tab(s), Oral, q24h, # 90 tab(s), 1 Refill(s), [facility]: [id number], 137, cm, 06/29/22 12:16:00 EDT, Height Start [...] 0 Start: 03-04-2022 take 1 capsule by [facility] once daily as needed Cetirizine (Zyrtec) [...] qWeek, # 13 cap(s), 3 Refill(s), Pharmacy: [id number], 138, cm, 02/02/22 13:31:00 EST, Height Start Date: 02/02/22 Stop Date: 01/28/23 Status: Ordered clindamycin 0.01 mg/mg topical gel (18 sources) Lincosamide Antibacterial Start: 05-31-2024 End: 05-31-2025 [...] daily. Dexlansoprazole 60 mg capsule,biphase delayed releas (3 sources) Start: take 1 capsule by mouth [...] twice daily. DME MISCellaneous (11 sources) Start: take 730 [IU] rectal route [...] Date: 02/25/22 Status: Ordered Start: 02-25-2022 DME Marilyn analia See Instructions, RAMESHEDDIEMANDY TENS UNIT E 0730 reducing chronic intractable pain, or lead for multiple pain sites. Certificate of medical necessity, the above identified equipment is deemed medically necessary for an estimated period of time 1 month rent... Start Date: 02/25/22 Status: Ordered doxycycline hyclate 100 mg oral capsule (9 sources) Tetracycline-class Drug Start: 10-13-2024 End: 10-30-2024 doxycycline (Vibramycin) 100 MG capsule Indications: Cellulitis of chest wall Take 1 capsule (100 mg) by mouth 2 times daily for 7 days. Take with at least 8 ounces (large glass) of water, do not lie down for 30 minutes after 14 capsule 10/23/2024 10/30/2024 Active End: 10-06-2021 take 2 tablets by mouth once daily doxycycline 100 mg ORAL tablet takes two tabs a day. 0 10/06/2021 Discontinued Comment on above: takes two tabs a day . ertapenem 1000 mg injection (2 sources) Penem Antibacterial Start: 05-08-19 End: 05-23-19 take 1 dose intravenously once daily Invanz 1 g (Disch Rx) Dose : 1 gram(s) =, IV Piggyback, qDay, # 14 EA, 0 Refill(s), 05/22/22 14:00:00 EDT, other reason (Rx), 44.8 Start Date: 05/07/22 Stop Date: 05/22/22 Status: Ordered 24 hr etodolac 400 mg extended release oral tablet (8 sources) Nonsteroidal Anti-inflammatory Drug Start: 11-22-19 End: 11-25-19 etodolac 400 mg oral tablet, extended release [...] Comment on above: Take 1 tablet by [facility] once daily. For pain. Take with food fenofibric acid 45 mg delayed release oral capsule (20 sources) Peroxisome Proliferator Receptor alpha Agonist Start: 08-13-19 End: 11-25-19 choline fenofibrate (Trilipix) [address] capsule Take by mouth. 11/24/2021 Active Comment on above: Take 1 capsule by mo [facility] once daily. Take 45 mg by mouth once daily. lactobacillus acidophilus 0.2 mg / lactobacillus bulgaricus 0.2 mg oral tablet (2 sources) Start: 05-08-19 End: 05-18-19 take 1 tablet by mouth three times daily lactobacillus acidophilus and bulgaricus oral tablet Dose = 1 tab(s), Oral, TID, X 10 day(s), # 30 tab(s), 0 Refill(s), Pharmacy: [facility], 137.2, cm, 05/02/22 3:41:00 EDT, Height Start [...] day(s), # 22 gram(s), 0 Refill(s), Pharmacy: [facility], Ointment, 137, cm, 04/27/22 15:04:00 EDT, Height, 44 Start Date: 04/28/22 Stop Date: 05/08/22 Status: Ordered Start: 12-30-2021 End: 01-04-2022 mupirocin 2% topical ointmen t Apply 1 maria ines, Topical, TID, X 5 day(s), # 22 gram(s), 0 Refill(s), Pharmacy: [id number], Ointment, 138, cm, 12/17/21 12:12:00 EDT, Height, [...] Antifungal Start: 01-11-2024 End: 01-10-2025 nystatin (Mycostatin) 763688 UNIT/GM powder Indications: Yeast dermatitis Apply topically 3 times daily. 60 g 1 01/11/2024 01/10/2025 Active ondansetron 4 mg disintegrating oral tablet (5 sources) Serotonin-3 Receptor Antagonist Start: 10-15-2024 take 1 tablet by mouth every eight hours as needed for nausea Ondansetron 4 mg tablet,disintegrat ing Active 4 mg PO EVERY 8 HOURS NEEDED as needed for Nausea 10 October 15, 2024 12:00am Start: 08-11-2022 take 1 tablet by maura th every eight hours as needed for nausea [...] mg / trimethoprim 160 mg oral tablet (3 sources) Dihydrofolate Reductase Inhibitor Antibacterial, Sulfonamide Antimicrobial [...] spasm, # 180 tab(s), 0 Refill(s), [facility]acy: [facility] #[id number], 137.2, cm, 08/11/22 13:50:00 EDT, Height, kg, 10/22/22 15:34:00 EDT, Dosing Weight Start Date: 10/22/22 Stop Date: 01/20/23 Status: Ordered Medication Dispense Status: Completed Quantity: 180.0 Unit: tab(s) Total Allowed Fills: 1 Fills Dispensed: 0 Start: 07-21-2022 End: 10-19-2022 Zanaflex 4 mg oral tablet Do se : 8 mg = 2 tab(s), Oral, qHS, PRN Muscle spasm, # 180 tab(s), 0 Refill(s), Pharmacy: [facility] #[id number], 137, cm, 06/29/22 12:16:00 EDT, Height Start [...] (20 sources) Cephalosporin Antibacterial Start: 4 End: 5 take 1 capsule by mouth every six hours Cephalexin 500 mg capsule Discontinued 500 mg PO EVERY 6 HOURS 28 0 January 22, 2024 1:00am September 11, 2024 2:29pm Start: 04-28-2022 End: 05-08-2022 cephalexin 500 mg oral capsu le Dose : 500 mg = 1 cap(s), Oral, QID, X 10 day(s), # 40 cap(s), 0 Refill(s), 05/08/22 11:24:00 EDT, Pharmacy: [id number], 137, cm, 04/27/22 15:04:00 [...] on above: Take 1 capsule by mo [facility] three times daily for 7 [...] Comment on above: Take 1 tablet by [facility] once daily. Take 10 mg by mouth once daily. eszopiclone 3 mg oral tablet (20 sources) Start: 01-07-2024 End: 12-02-2024 take 1 tablet by mouth once daily as needed for sleep eszopiclone (Lunesta) 3 MG tablet Indications: Insomnia, unspecified type Take 1 tablet (3 mg) by mouth Nightly as needed for sleep. Take immediately before bedtime 30 tablet 10/04/2024 11/01/2024 Discontinued (Reorder) Start: 11-27-2023 End: 12-27-2023 take 1 tablet [...] th daily at bedtime for 180 days. hydrOXYzine hydrochloride 25 mg oral tablet (15 sources) Antihistamine Start: 08-13-19 End: 11-25-19 take 1 tablet by mouth every six [...] (MEDROL DOSE-PACK) 4 mg Dose-Pack polymyxin b 60461 unt/ml / trimethoprim 1 mg/ml ophthalmic solution [...] 3 02-04-2022 Chronic Open wounds of extremities (18 sources) Open wound of left forearm; Translations: [...] Onset: 4 06-01-2023 Chronic Other acquired deformities (3 sources) Scoliosis of lumbar spine; Translations: [Scoliosis, unspecified] 05-14-2023 Chronic Other aftercare (1 source) Long-term current use of opiate analgesic drug; Translations: [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 She had MRI done in [place] Other congenital anomalies (18 sources) Osteopetrosis; Translations: [...] left arm] Episodic Other connective tissue disease (5 sources) Pain in lower limb; Translations: [Pain in leg, unspecified] 06-24-2022 Episodic Other connective tissue disease (2 sources) Iliotibial band syndrome, right leg; Translations: [Other disorders of muscle, ligament, and fascia] 06-24-2022 Episodic Other connective tissue disease (7 sources) Bursitis of right shoulder; Translations: [Bursitis of right shoulder] 12-10-2021 Episodic Other connective tissue disease (3 sources) Rotator cuff arthropathy of left shoulder; [...] Other nervous system disorders (1 source) 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; Translations: [Personal history of other diseases of the nervous system and sense organs] Episodic Other non-traumatic joint disorders (5 sources) Hip pain 02-04-2022 Episodic Other non-traumatic joint disorders (7 sources) Pain in right shoulder; Translations: [Right [...] sources) Mass of soft tissue 12-09-2021 Episodic Other skin disorders (1 source) Rash and other nonspecific skin eruption; Translations: [Rash and other nonspecific skin eruption] Onset: 5 Episodic Otitis media and related conditions (1 [...] unspecified; Translations: [Low back pain, unspecified] Onset: Past or Other Problems Problem Classification Problem [...] screening for malignant neoplasm of cervix] Onset: 03-14-2024 Episodic Other skin disorders (20 sources) Pimple of skin; Translations: [Other skin changes] Onset: 04-29-2023 Resolved: 05-31-2024 04-29-2023 Episodic Other skin disorders (20 sources) Mass of back; Translations: [Localized swelling, mass and lump, trunk] Onset: 05-20-2023 05-20-2023 Episodic Other skin disorders (20 sources) Hidradenitis; Translations: [Hidradenitis suppurativa] Onset: 05-31-2024 05-31-2024 Episodic Other skin disorders (2 sources) Acne, unspecified; Translations: [Acne, unspecified] Onset: 05-31-2024 Episodic Residual codes; unclassified (20 sources) Past history of procedure; Translations: [Other specified postprocedural states] Onset: 02-24-2022 Episodic Residual codes; unclassified (20 sources) Body mass index 20-24 - normal; Translations: [Body mass index (BMI) of 20 to 24] Onset: 11-24-2022 11-24-2022 Episodic Spondylosis; intervertebral disc disorders; other back problems (20 sources) Lumbar radiculopathy; Translations: [Neck pain] Onset: 11-24-2022 02-25-2022 Episodic Unclassified (1 source) Low back pain, unspecified; Translations: [Low back pain, unspecified] Onset: 01-11-2024 Viral infection (20 sources) Disease caused by 2019-nCoV; Translations: [COVID-19] Onset: 03-04-2023 Resolved: 03-04-2023 02-15-2023 Episodic Results Test Name Value Interpretation Reference Range Facility 36on 11-02-2024 36 Reviewed chart. Refi ll appropriate. RX sent. [facility] 36 Prescription Request : eszopiclone (Lunesta) 3 MG tablet Last medication check: 08/30/24 Last physical exam: 03/14/24 Next scheduled appointment: 11/30/24 Last date of refill on this medication 10/04/24 ( qty 30 refill 0) [facility] Office Visiton 10-26-2024 Follow-up visit [id number] Irvin Moncada savita Oakes 1970 F Date Provider Department Center 10/26/2024 [id number], RYAN SH [facility] GS None Family History Problem Relation Age of Onset Arthritis Mother Diabetes Mother Hyperlipidemia Mother Kidney disease Mother Cirrhosis Father Alcohol abuse Father Family Status - Relation Status Age at Mother Father Level of Service:64374 ND OFFICE/OUTPATIENT NEW LOW MDM 30 MINUTES Reason for Visit and Comments: 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 Eosinophils/100 WBC (Bld) 0 % [facility] Erythrocyte distribution width (RBC) [Ratio] 12.8 % 11.0 - 15.0 % [facility] Hematocrit (Bld) [Volume fraction] 38.4 % 35.0 - 45.0 % [facility] Hemoglobin (Bld) [Mass/Vol] 13.2 g/dL 11.7 - 15.5 g/dL [facility] Interpretation and review of laboratory results Abnormal [facility] Lymphocytes (Bld) [#/Vol] 1937 10*3/uL [facility] Lymphocytes/100 WBC (Bld) 16.7 % [facility] MCH (RBC) [Entitic mass] 31.7 pg 27. 0 - 33.[address] [facility] MCHC (RBC) [Mass/Vol] 34.4 g/dL 32.0 - 36.0 g/dL [facility] Comment on above: For adults, a slight decrease in the calculated MCHC value (in the range of 30 to 32 g/dL) is most likely not clinically significant; however, it should be interpreted with caution in correlation with other red cell parameters and the patient's clinical condition. MCV (RBC) [Entitic vol] 92.1 fL 80.0 - 100.[address] [facility] Monocytes (Bld) [#/Vol] 1056 10*3/uL [facility] Monocytes/100 WBC (Bld) 9.1 % S [facility] Neutrophils (Bld) [#/Vol] 8561 10*3/uL High [facility] Neutrophils/100 WBC (Bld) 73.8 % [facility] Platelet mean volume (Bld) [Entitic vol] 10 fL 7.5 - 12.[address] [facility] Platelets (Bld) [#/Vol] 471 10*3/uL High [facility] RBC (Bld) [#/Vol] 4.17 10*6/uL [facility] WBC (Bld) [#/Vol] 11.6 10*3/uL High [facility] 37on 10-19-2024 37 SEND PROVIDER UPDATE WHEN ALMOST DONE WITH ANTIBIOTICS DONE. [facility] Office Visiton 10-19-2024 Follow-up visit [id number] Irvin Moncada 1970 F Date Provider Department Center 10/19/2024 [id number] [facility] Family History Problem Relation Age of Onset Arthritis Mother Diabetes Mother Hyperlipidemia Mother Kidney disease Mother Cirrhosis Father Alcohol abuse Father Family Status - Relation Status Age at Mother Father Level of Service:77954 ND OFFICE/OUTPATIENT ESTABLISHED LOW MDM 20 MIN Reason for Visit and Comments: Fatigue [46] Cellulitis [315] - Under left arm [facility] [place](Prescribed the [facility] then [facility]) [facility] Progress Noteon 10-19-2024 Progress Note Symptoms are improving, patient reports a lot of fatigue. Will check CBC. Continue doxycycline. Consider prophylactic topical clindamycin later on to help prevent boils under the arms [facility] Progress Note Patient was identifi ed by name and Date of . [facility] Progress Note 10/19/2024 Sue Moncada (: 1970) is a 54 y.o. female , Established patient, here for evaluation of the following chief complaint(s): Fatigue and Cellulitis (Under left arm [place]- [place](Prescribed the ATB then [place] [facility])) ASSESSMENT/PLAN: 1. Cellulitis of chest wall Assessment & Plan: Symptoms are improving, patient reports a lot of fatigue. Will check CBC. Continue doxycycline. Consider prophylactic topical clindamycin later on to help prevent boils under the arms Orders: - CBC auto differential Follow up if symptoms worsen or fail to improve. SUBJECTIVE/OBJECTIVE: HPI - Sue Moncada (: 1970) is a 54 y.o. female , Established patient, here for the evaluation of the following chief complaint(s): Fatigue and Cellulitis (Under left arm pit- [place](Prescribed the [facility] then [place] [facility])) Feeling more tired than normal. Has not been to work all week. No fever since Wednesday. On Doxy for cellulits of the left axilla area Has 3-4 days left. Occasional nausea. PAIN IN THE LEFT SIDE IS BETTER BUT STILL SORE. NO DRAINAGE. Redness has improved. Reports initially it was hurting into her left arm but now it is more localized to just under the axilla on the left Current Medications[1] Review of Systems Constitutional: Positive for appetite change and fatigue. Negative for activity change and fever. Respiratory: Negative. Cardiovascular: Negative. Gastrointestinal: Negative. Genitourinary: Negative for difficulty urinating. Vitals: 10/19/24 1508 BP: 117/74 Pulse: 98 Resp: 16 Temp: 37.1 ?C (98.7 ?F) TempSrc: Infrared SpO2: 96% Weight: 99 lb 9.6 oz (45.2 kg) Physical Exam Constitutional: General: She is not in acute distress. Appearance: She is not ill-appearing. Cardiovascular: Rate and Rhythm: Normal rate and regular rhythm. Pulses: Normal pulses. Heart sounds: Normal heart sounds. Pulmonary: Effort: Pulmonary effort is normal. Breath sounds: Normal breath sounds. Skin: Neurological: Mental Status: She is alert and oriented to person, place, and time. An electronic signature was used to authenticate this note. KATHERINE Bergman CNP 10/19/2024 6:30 PM [1] Current Outpatient Medications Medication Sig Dispense Refill amitriptyline (Elavil) 50 MG tablet TAKE 1 TABLET BY MOUTH NIGHTLY 30 tablet 5 amLODIPine (Norvasc) 5 MG tablet TAKE 1 TABLET BY MOUTH EVERY DAY 90 tablet 1 atorvastatin (Lipitor) 20 MG tablet TAKE 1 TABLET BY MOUTH EVERY DAY IN THE EVENING 30 tablet 5 choline fenofibrate (Trilipix) [address] capsule Take by mouth. clindamycin (Cleocin T) 1 % gel (Twice-Daily) Apply to affected area daily 60 g 11 dexlansoprazole (Dexilant) [address] capsule Take 1 capsule (60 mg) by mouth daily. 90 capsule 1 doxycycline (Vibramycin) 100 MG capsule 100 mg. eszopiclone (Lunesta) 3 MG tablet Take 1 tablet (3 mg) by mouth Nightly as needed for sleep. Take immediately before bedtime 30 tablet 0 naloxone (Narcan) 4 mg/0.1 mL nasal spray ADMINISTER A SINGLE spray INTO ONE NOSTRIL repeat in 3 MINUTES IF... (REFER TO PRESCRIPTION NOTES). nystatin (Mycostatin) 171598 UNIT/GM powder Apply topically 3 times daily. 60 g 1 oxyCODONE-acetaminophe n (Percocet) 5-325 MG tablet Take 1 tablet by mouth every 8 hours as needed for severe pain (7-10). 90 tablet 0 tiZANidine (Zanaflex) 4 MG tablet TAKE 1 TABLET BY MOUTH AT BEDTIME NEEDED FOR MUSCLE SPASMS 30 tablet 5 No current facility-administered medications for this visit. [facility] 36on 10-18-2024 36 Called patient advis ed her she will need to be here by 2:45pm and if symptoms worsen she needs to go to the ER. Patient agreeable. [facility] 36 Offer 3 pm tomorrow. [facility] 36 S: Patient spoke wit h CAC nurse regarding nausea and fatigue; cellulitis B: Onset of symptoms/concern 5 days A: Seen in ED on 10/13 and 10/15 and diagnosed with cellulitis under her left arm, down left arm. Prescribed antibiotics and taking them. States the redness has has subsided but still has swelling to the arm near a cyst to her left armpit. States no change in size of cyst. States she has had low energy since treated for cellulitis. Denies fever, worsening redness, swelling or increased size of cyst. R: Back line called and advised by Laura to sent TE for them to review and return call to patient for scheduling. Patient understands care advice to rest, increase fluids and monitor for signs of worsening infection. No further needs at this time. Patient instructed to call back with new or worsening symptoms. Reason for Disposition MILD weakness (e.g., does not interfere with ability to work, go to school, normal activities) and persists > 1 week Protocols used: Weakness (Generalized) and [id number] [facility] Emergency Department Summary on 10-15-2024 Emergency Department Summary [facility] Medical Records Department [address] [place] [address] Emergency Department Summary 10/15/24 MR#: [id number] Acct: [id number] Name: SUE MONCADA Rep #: [id number] : 1970 54 From: Ray Wilson DO PCP: Jeri Trinidad Status:PRE ER Location: ED HPI History of Present Illness Chief Complaint: Cellulitis [facility] Medical History (Updated 09/11/24 @ 14:31 by [...] tablet 50 mg PO QHS 12/10/21 Unknown Hist ory atorvastatin 20 mg tablet 20 mg PO QHS 12/10/21 Unknown Hist ory dexlansoprazole 60 mg 60 mg PO DAILY 12/10/21 Unknown Hi story capsule,biphase delayed release eszopiclone 3 mg tablet 3 mg PO QHS 12/10/21 Unknown Histo ry cetirizine 10 mg capsule (Zyrtec) 10 mg PO DAILY PRN PRN allergies 03/04/22 Unknown History cholecalciferol (vitamin D3) 1,250 1,250 mcg PO QWEEK 03/04/22 Unkn own History mcg (50,000 unit) capsule fenofibric acid (choline) 45 mg 45 mg PO DAILY 03/04/22 Unknown Hi story capsule,delayed release oxycodone-acetaminophe n 5 mg-325 1 tab PO TID PRN 05/12/23 Unknown History mg tablet sulfamethoxazole 800 1 tab PO BID #14 TABLETS 01/22/24 Unknown Rx mg-trimethoprim 160 mg tablet Allergy/AdvReac Type Severity Reaction Status Date / Time duloxetine (From Cymbalta) Allergy Chest Verified 10/15/24 09:27 tightness trazodone Allergy Chest Verified 10/15/24 09:27 tightness tramadol AdvReac Other Verified 10/15/24 09:27 Family History Aunt Cancer lung Mother Diabetes Surgical History History of carpal tunnel surgery H/O eye surgery Hx of right knee surgery Social History household members: other details: step dad Smoking Status: Current every day smoker tobacco type: cigarettes alcohol intake: never substance use type: does not use what type of physical activity do you participate in: other details: stretches frequency: daily EXAM Physical Exam Const Vital Signs: 10/15/24 09:24 10/15/24 09:44 10/15/24 09:46 Temperature 97.6 F L 98.7 F 98.7 F Temperature Source Temporal Oral Pulse Rate 67 89 89 Respiratory Rate 17 18 18 Blood Pressure 127/87 H 129/82 H 129/82 H Blood Pressure Mean 100 97 97 Pulse Ox 100 100 100 Oxygen Delivery Method Room Air Room Air MDM MDM MDM Narrative Medical decision making narrative: HISTORY OF PRESENT ILLNESS: Chief complaint: Cellulitis 54-year-old female history of hyperlipidemia, IBS presents concern for cellulitis. Notes she was diagnosed with cellulitis at outside hospital on Wednesday (10/13/2024). No she was started on doxycycline. She is currently on day 3 of 10. Denies vomiting. Denies history of cancer or other immunocompromising state. Denies history of Haresh-en-Y gastric bypass or other significant GI manipulation. REVIEW OF SYSTEMS: Pertinent positives: Rash Pertinent negatives: Vomiting, fever PHYSICAL EXAM: Nursing triage notes reviewed, Vital signs reviewed Constitutional: please see [facility] Lungs: Clear to auscultation, No wheezing or rales. No increased work of breathing, no conversational dyspnea, no accessory muscle use, no nasal flaring. No respiratory distress noted Heart: Regular rate and rhythm, No murmurs, No rubs and No gallops, 2+ distal pulses (radial, femoral, posterior tibial) in all extremities Skin: Approximately 5 x 4 area of erythema noted to the left chest/axilla. No crepitus or bullae noted. No palpable abscess fluctuance induration. Some warmth noted. No obvious purulent drainage. 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 Narrative: The patient was initially hemodynamically stable, afebrile and nontoxic-appearing. Exam with signs of cellulitis noted to left chest/left axilla. No palpable abscess crepitus bullae or signs of necrotizing fasciitis. Patient's vital signs were stable. (more content not included)... [facility] Magnetic resonance imaging r eportOrdered By: Joelle Muller on 10-09-2024 Study report [facility] Imaging Services [address] [place] [address] Upper Ext Joint Only(Routine) MR#: [id number] Acct: [id number] Name: SUE MONCADA Rep #: [id number] : 1970 F 54 From: Leslie Muller MD PCP: Jeri Trinidad Status: REG CLI Study:Upper Ext Joint Only(Routine) Date of Exam: 10/07/24 Exam# [id number] Ordering Dr: Shady Burks MD PROCEDURE: UPPER [...] effusion with small subacromial/subdeltoid bursitis. Reading [facility] CC: Dr. Shady Burks MD; Jeri Trinidad ~ Contracts Intern: Signed [facility] Upper Ext Joint Only(Routine )on 10-07-2024 Upper Ext Joint Only(Routine) [facility] Imaging Services [address] [place] [address] Upper Ext Joint Only(Routine) MR#: [id number] Acct: [id number] Name: SUE MONCADA Rep #: [id number] : 1970 F 54 From: Joelle valle MD PCP: Jeri Trinidad Status: REG CLI Study: Upper Ext Joint Only(Routine) Date of Exam: 0 10/07/24 Exam# [id number] Ordering Dr: Shady Burks MD PROCEDURE: UPPER [...] effusion with small subacromial/subdeltoid bursitis. Reading Location: [place] [address] CC: Dr. Shady Burks MD; Jeri Trinidad Contracts Intern: Signed [facility] 36on 10-06-2024 36 Reviewed chart. Refi ll appropriate. RX sent. [facility] 36 Prescription Request : ATORVASTATIN 20 MG TABLET AMITRIPTYLINE HCL 50 MG TAB Last medication check: 08/30/24 Last physical exam: 03/14/24 Next scheduled appointment: 11/30/24 Last date of refill on this medication Atorvastatin - 04/04/24 ( qty 90 refill 1) Amitryptyline - 04/14/24 ( qty 90 refill 1) [facility] 36 Routing to correct office. [place] [address] Reviewed chart. Refi ll appropriate. RX sent. [facility] 36 Prescription Request : oxyCODONE-acetaminophe n (Percocet) 5-325 MG tablet Last medication check: 08/30/24 Last physical exam: 03/14/24 Next scheduled appointment: 11/30/24 CSA on file (date): 06/13/24 Last urine drug screen: 05/31/24 Last date of refill on this medication 09/07/24 ( qty 90 refill 0) [facility] 36on 10-04-2024 36 Reviewed chart. Refi ll appropriate. RX sent. [facility] 36 Prescription Request : Last medication check: 08/30/2024 Last physical exam: 03/14/2024 Next scheduled appointment: 11/30/2024 CSA on file (date): 01/11/2024 Last urine drug screen: 05/31/2024 Last date of refill on this medication: 08/30/2024 [facility] 36on 09-29-2024 36 Not due for a refill until the end of October. [facility] Orthopedic Visit Reporton Orthopedic Visit Report [facility] [address] [place] [address] OFFICE VISIT Date of Service: 09/11/24 MR#: [id number] Acct: [id number] Name: SUE MONCADA Rep #: [id number] : 1970 Provider: Dr. Shady rojas MD Age/Sex: 54/F Location: [facility] Status: Signed Intake Vital Signs 01/22/24 10:21 [...] 01/22/24 09/11/24 Rx mg-trimethoprim 160 mg tablet [facility] Medical History (Updated 09/11/24 @ 14:31 by [...] by me, Dr. Shady Burks MD 09/11/24 8548. Part of today???s visit was documented by [...] be helpful. 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 Office Procedures Ortho Injections [...] Performing Provider: Shady Burks MD Performing Location: [facility] Administered by: Shady Burks MD on 09/11/24 14:45 Dose Route Admin Location Dispensed Lot Number Expiration Date NDC Man ufacturer 40 mg intra-articular Right shoulder 1 mL [id number] 09/15/26 7551-3215-20 [employer] [facility] Supplemental Info [facility]iology [address] [place] [address] Shoulder min 2 Views MR#: [id number] Acct: [id number] Name: SUE MONCADA Rep #: [id number] : 1970 F 52 From: Alex Oseguera DO PCP: Status: DEP AMB Study: Shoulder min 2 Views Date of Exam: 12/23/22 Exam# [id number] Ordering Dr: Rayo Cantu DO [id number] EXAM: XR RIGHT SHOULD (more content not included)... [facility] 36on 09-07-2024 36 Reviewed chart. Refi ll appropriate. RX sent. [facility] 36 Reviewed chart. Refi ll appropriate. RX sent. [facility] 36 Prescription Request : TIZANIDINE HCL 4 MG TABLET Last medication check: 08/30/24 Last physical exam: 03/14/24 Next scheduled appointment: 11/30/24 Last date of refill on this medication 03/14/24 ( qty 90 refill 1) [facility] 36 Prescription Request : oxyCODONE-acetaminophe n (Percocet) 5-325 MG tablet Last medication check: 08/30/24 Last physical exam: 03/14/24 Next scheduled appointment: 11/30/24 Last date of refill on this medication 08/10/24 ( qty 90 refill 0) [facility] 36on 09-04-2024 36 Not due for a refill until the end of September. [facility] 36 Prescription Request : Last medication check: 08/30/24 Last physical exam: 03/14/24 Next scheduled appointment: 11/30/24 Last date of refill on this medication 04/14/24 90 and 1 refill [facility] 36on 08-31-2024 36 Please sign new referral. [facility] Office Visiton 08-30-2024 Follow-up visit [id number] Irvin Moncada 1970 F Date Provider Department Center 08/30/2024 [id number] [facility]AD [facility] Family History Problem Relation Age of Onset Arthritis Mother Diabetes Mother Hyperlipidemia Mother Kidney disease Mother Cirrhosis Father Alcohol abuse Father Family Status - Relation Status Age at Mother Father Level of Service:42168 [place] OFFICE/OUTPATIENT ESTABLISHED MOD MDM 30 MIN Reason for Visit and Comments: Medication Check [[id number]] [facility] Progress Noteon 08-30-2024 Progress Note Will treat for acute flareup with short burst of steroids. No red flags [facility] Progress Note Needs to get DEXA completed [facility] Progress Note Needs to get her DEX A scan completed [facility] Progress Note Last Pap smear unsatisfactory. Due to patient's anatomy and scleroderma, provider was unable to use speculum and did not get a satisfactory she is low risk, no longer sexually active. No history of abnormal Pap smears. She has the option to discontinue her cervical cancer screenings or we can refer her to a dairy equipment mechanic, patient states she will let us know what she decides to do [facility] Progress Note Patient was identifi ed by [...] and no further flushing needed. Charged [facility] Progress Note 08/30/2024 Sue Moncada (: 1970) [...] or we can refer her to a dairy equipment mechanic, patient states she will let us know what she decides to do 6. Chronic pain syndrome Assessment & Plan: Continue Percocet 5-3 25 every 8 hours as needed for severe pain. OARRS reviewed and consistent with treatment plan. CS MA is in place. Will see if we can find a palliative provider in the [place] area to better help manage her symptoms. [...] Heart so (more content not included)... [facility] 36on 08-21-2024 36 PA closed 08/01 not required for patient/medication [facility] 3608-10-2024 36 Reviewed chart. Refi ll appropriate. RX sent. [facility] 36 Prescription Request : oxyCODONE-acetaminophe n (Percocet) 5-325 MG tablet Last medication check: 07/28/23 Last physical exam: 03/14/24 Next scheduled appointment: 08/30/24 CSA on file (date): 06/13/24 Urine drug screen - 05/31/24 Last date of refill on this medication 07/13/24 ( qty 90 refill 0) [address] 08-02-2024 36 Reviewed chart. Refi ll appropriate. RX sent. [place] [address] Reviewed chart. Refi ll appropriate. RX sent. [place] [address] Prescription Request : AMLODIPINE BESYLATE 5 MG TAB Last medication check: 11/03/23 Last physical exam: 03/14/24 Next scheduled appointment: 08/30/24 Last date of refill on this medication 11/03/23 ( Qty 90 refill 1) [place] [address] Prescription Request : Last medication check: 08/12/23 Last physical exam: 03/14/24 Next scheduled appointment: 08/30/24 Csa 01/11/24 Uds 05/31/24 Last date of refill on this medication 07/06/2529 and no refill [address] 08-01-2024 36 PA submitted 08/[address] 07-13-2024 36 Reviewed chart. Refi ll appropriate. RX sent. [place] [address] Prescription Request : oxyCODONE-acetaminophe n (Percocet) 5-325 MG tablet Last medication check: 07/28/23 Last physical exam: 03/14/24 Next scheduled appointment: 08/30/24 CSA on file (date): 06/13/24 Last date of refill on this medication 06/13/24 ( qty 90 refill 0) [address] 07-06-2024 36 Reviewed chart. Refi ll appropriate. RX sent. [place] [address] Prescription Request : eszopiclone (Lunesta) 3 MG tablet Last medication check: 05/31/24 well woman Last physical exam: 03/14/24 Next scheduled appointment: 08/30/24 CSA on file (date): 01/12/24 Last date of refill on this medication 06/07/24 ( qty 39 refill 0) [address] 06-13-2024 36 Last read by Sue Moncada at 4:00 PM on 06/12/2024. Normal [facility] 36 Prescription Request : oxyCODONE-acetaminophe n (Percocet) 5-325 MG tablet Last medication check: 05/31/24 Last physical exam: 03/14/24 Next scheduled appointment: 08/30/24 CSA on file (date): 12/10/23 Last date of refill on this medication 05/17/24 ( qty 90 refill 0) [address] 06-09-2024 36 [employer] message sent to patient-noted at next appointment. [facility] 36 ----- Message from KATHERINE Escalante CNP sent at 06/09/2024 6:04 AM EDT ----- PAP smear and HPV- unfortunately the specimen was unsatisfactory for the test to be completed. Due to difficulty of examination, recommend referral to gynecology for screening to be completed. Can be discussed further at next appointment. [address] 2024 Reviewed chart. Refi ll appropriate. RX sent. [place] [address] Reviewed chart. Refi ll appropriate. RX sent. [facility] 36 CSA - Lunesta 05/31/2024 Drug Screen completed [place] [address] Patient is out of medication. Medication name: [...] prior to picking up the medication: Yes [facility] AMB POC DRUG SCREEN 12, LABS OURCEon 05-31-2024 Amphetamine Screen, Urine Not detected [facility] [employer] Barbiturates Screen Ql (U) Not detected N one Detected [facility] Benzodiazepines Ql (U) Not detected None Detected [facility] [employer] Cannabinoids Screen (U) [Mass/Vol] Positive [facility] Cocaine Ql (U) Not detected None Detected [facility] Interpretation and review of laboratory results Abnormal [facility] Methadone Screen Ql (U) Not detected [facility] Methamphetamine (U) [Mass/Vol] Negative [facility] Methylenedioxymethamphetami ne (U) [Mass/Vol] Negative ng/mL [facility] Opiates Screen Ql (U) Not detected [facility] oxyCODONE Ql (U) Positive [facility] Phencyclidine Ql (U) Not detected None Detected [facility] Tricyclic antidepressants Screen Ql (U) Positive [facility] Office Visiton 05-31-2024 Follow-up visit [id number] Irvin Moncada 1970 F Date Provider Department Center 05/31/2024 [id number] TRINID[facility] Family History Problem Relation Age of Onset Arthritis Mother Diabetes Mother Hyperlipidemia Mother Kidney disease Mother Cirrhosis Father Alcohol abuse Father Family Status - Relation Status Age at Mother Father Level of Service:62914 ND OFFICE/OUTPATIENT ESTABLISHED MOD MDM 30 MIN Reason for Visit and Comments: Gynecologic Exam [50] [facility] Progress Noteon 05-31-2024 Progress Note Symptoms well-controlled on Lunesta 3 mg nightly. Continue current medication. [facility] Progress Note Stable. Has been evaluated by Dr. Benson rheumatology. Stable condition no rheumatological interventions indicated [facility] Progress Note No active lesions. Will start topical antibiotic daily to affected areas. [facility] Progress Note 05/31/2024 Sue Moncada (: 1970) [...] current medication. Follow up for 3 month [facility]. SUBJECTIVE/OBJECTIVE: BRADFORD Moncada (: 1970) is a 53 y.o. female , Established patient, here for the evaluation of the following chief complaint(s): Gynecologic Exam Patient presents for her 3-month med check for chronic pain and for her gynecological exam. She has already had her annual physical with fasting labs completed earlier this year. She states she had her labs completed at [facility] and we will need to [...] IF... (REFER TO PRESCRIPTION NOTES). nystatin (Mycostatin) [id number] UNIT/GM powder Apply topically 3 times daily. [...] Right eye: (more content not included)... Normal [facility] Progress Note Patient was identifi ed by name and Date of . Health Maintenance Due Topic Colorectal Cancer Screening-REFERRAL PRINTED Diabetes Screening-DONE AT [facility] 2-3 MONTHS-WILL FAX YASMEEN Cervical Cancer [...] results entered and were sent to provider. [address] 05-15-2024 36 Prescription Request : Last medication check: 03/14/24 Last physical exam: 03/04/23 Next scheduled appointment: 05/31/24 CSA on file (date): 01/12/24 Last urine drug screen: 02/03/23 Last date of refill on this medication 04/17/[address] 05-08-2024 36 Reviewed chart. Refi ll appropriate. RX sent. [place] [address] CSA - Lunesta 01/11/24 [facility] 36 Patient is out. Medication name: eszopiclone (Lunesta) 3 MG tablet [[id number]] Medication dosage: 3 mg (Miligrams Monthly quantity [...] medication tab): 04.05.24 Updated/Validated preferred pharmacy: Yes [facility]/pharmacy #[id number] [place] [id number] DEAN #: [id number] Patient instructed to contact the pharmacy prior to picking up the medication: Yes [address] 04-27-2024 36 Noted. Agree with disposition. [place] [address] S: Patient spoke wit h [facility] nurse regarding boil under right arm, [...] no fever Protocols used: Boil (Skin Abscess)-[place]ULT-[place] [address] 04-14-2024 Reviewed chart. Refi ll appropriate. RX sent. [place] [address] Prescription Request : Last medication check: 01-11-24 Last physical exam: 03-14-24 Next scheduled appointment: 04-10-24 Last date of refill on this medication 12/23/[address] 04-10-2024 36 [facility] 12/09/23 [place] [address] Medication name: oxyCODONE-acetaminophe n (Percocet) 5-325 MG [...] prior to picking up the medication: No [address] 04-05-2024 36 Reviewed chart. Refi ll appropriate. RX sent. [facility] 36 Prescription Request : Last medication check: 01-11-24 Last physical exam: 03-14-24 Next scheduled appointment: 04-10-24 CSA on file (date): 01-11-24 Last urine drug screen: 02-03-23 Last date of refill on this medication 03-04-24 [facility] 36on 04-04-2024 36 Reviewed chart. Refi ll appropriate. RX sent. [facility] 36 Prescription Request : Last medication check: 01/11/24 Last physical exam: 03/14/24 Next scheduled appointment: 04/10/24 Last date of refill on this medication: 09/08/23 [facility] .Auto Diffon 03-31-2024 Basophil, Absolute 0.1 10 3/mcL Normal 0.0-0.2 [facility] Comment on above: Performed By: #### C BC, ANEU, VIDH, GFR, CMP, ADIFF #### [address] [address] Basophils/100 WBC (Bld) 0.6 % Normal 0.0-2.5 [facility] Comment on above: Performed By: #### C BC, ANEU, VIDH, GFR, CMP, ADIFF #### [address] [address] Eosinophil, Absolute 0.0 10 3/mcL Normal 0.0-0.7 [facility] Comment on above: Performed By: #### C BC, ANEU, VIDH, GFR, CMP, ADIFF #### [address] [address] Eosinophils/100 WBC (Bld) 0.1 % Normal 0.0-7.0 [facility] Comment on above: Performed By: #### C BC, ANEU, VIDH, GFR, CMP, ADIFF #### [address] [address] Lymphocyte, Absolute 2.0 10 3/mcL Normal 0.9-4.3 [facility] Comment on above: Performed By: #### C BC, ANEU, VIDH, GFR, CMP, ADIFF #### [address] [address] Lymphocytes/100 WBC (Bld) 21.5 % Normal 20.0-40.0 [facility] Comment on above: Performed By: #### C BC, ANEU, VIDH, GFR, CMP, ADIFF #### [address] [address] Monocyte, Absolute 0.7 10 3/mcL Normal 0.1-1.4 [facility] Comment on above: Performed By: #### C BC, ANEU, VIDH, GFR, CMP, ADIFF #### [address] [address] Monocytes/100 WBC (Bld) 7.6 % Normal 2.0-13.0 [facility] Comment on above: Performed By: #### C BC, ANEU, VIDH, GFR, CMP, ADIFF #### [address] [address] Neutrophils/100 WBC (Bld) 70.2 % Normal 50.0-75.0 [facility] Comment on above: Performed By: #### C BC, ANEU, VIDH, GFR, CMP, ADIFF #### [address] [address] .GFRon 03-31-2024 Estimated Glomerular Filtration Rate 96 ml/min/1.73sqm Normal [facility] Comment on above: Result Comment: Stages [...] #### L IPID, PHOS, MG, TSH #### [place] [address] #### PTH #### [place] [address] .NEUABSon 03-31-2024 Neutrophil, Absolute 6.5 10 3/mcL Normal 2.3-8.1 [facility] Comment on above: Performed By: #### C BC, ANEU, VIDH, GFR, CMP, ADIFF #### [address] [address] .Urinalysis Microscopic (AO) on 03-31-2024 UA Bacteria 2+ /hpf Abnormal [facility] Comment on above: Performed By: #### L IPID, PHOS, MG, TSH #### [place] [address] #### PTH #### [place] [address] UA CA Ox Crystal 3+ /hpf Normal [facility] Comment on above: Performed By: #### L IPID, PHOS, MG, TSH #### [place] [address] #### PTH #### [place] [address] UA RBC None Seen Normal None Seen [facility] Comment on above: Performed By: #### L IPID, PHOS, MG, TSH #### [place] [address] #### PTH #### [place] [address] UA Squam Epithelial 0-5 Abnormal None Seen [facility] Comment on above: Performed By: #### L IPID, PHOS, MG, TSH #### [place] [address] #### PTH #### [place] [address] UA WBC 10-15 Abnormal None Seen [facility] Comment on above: Performed By: #### L IPID, PHOS, MG, TSH #### [address] [address] #### PTH #### [facility] [address] [place] [address] CBCon 03-31-2024 Erythrocyte distribution width (RBC) [Ratio] 14.0 % Normal 11.5-15.5 [facility] [facility] Comment on above: Performed By: #### C BC, ANEU, VIDH, GFR, CMP, ADIFF #### [address] [address] Hematocrit (Bld) [Volume fraction] 39.7 % Normal 34.0-46.0 [facility] Comment on above: Performed By: #### C BC, ANEU, VIDH, GFR, CMP, ADIFF #### [address] [address] Hgb 13.6 G/dL Normal 12.0-16.0 [facility] Comment on above: Performed By: #### C BC, ANEU, VIDH, GFR, CMP, ADIFF #### [address] [address] MCH (RBC) [Entitic mass] 32.6 pg Normal 27.0-33.0 [facility] Comment on above: Performed By: #### C BC, ANEU, VIDH, GFR, CMP, ADIFF #### [address] [address] MCHC 34.3 G/dL Normal 32.0-36.0 [facility] Comment on above: Performed By: #### C BC, ANEU, VIDH, GFR, CMP, ADIFF #### [address] [address] MCV (RBC) [Entitic vol] 95.3 fL Normal 80.0-99.0 [facility] Comment on above: Performed By: #### C BC, ANEU, VIDH, GFR, CMP, ADIFF #### [address] [address] Platelet 388 10 3/mcL Normal 150-450 [facility] Comment on above: Performed By: #### C BC, ANEU, VIDH, GFR, CMP, ADIFF #### [address] [address] Platelet mean volume (Bld) [Entitic vol] 7.4 fL Normal 6.6-10.5 [facility] Comment on above: Performed By: #### C BC, ANEU, VIDH, GFR, CMP, ADIFF #### [address] [address] RBC 4.16 10 6/mcL Normal 4.10-5.30 [facility] Comment on above: Performed By: #### C BC, ANEU, VIDH, GFR, CMP, ADIFF #### [address] [address] WBC 9.2 10 3/mcL Normal 4.5-10.8 [facility] Comment on above: Performed By: #### C BC, ANEU, VIDH, GFR, CMP, ADIFF #### [address] [address] CMPon 03-31-2024 Albumin Level 3.4 G/dL Low 3.5-5.0 [facility] Comment on above: Performed By: #### C BC, ANEU, VIDH, GFR, CMP, ADIFF #### [address] [address] Albumin/Globulin [Mass ratio] 0.8 {ratio} Low 1.1-2.5 [facility] Comment on above: Performed By: #### C BC, ANEU, VIDH, GFR, CMP, ADIFF #### [address] [address] ALP [Catalytic activity/Vol] 148 U/L High 40-135 [facility] Comment on above: Performed By: #### C BC, ANEU, VIDH, GFR, CMP, ADIFF #### [address] [address] ALT [Catalytic activity/Vol] 40 U/L Normal 14-59 [facility] Comment on above: Performed By: #### C BC, ANEU, VIDH, GFR, CMP, ADIFF #### [address] [address] AST [Catalytic activity/Vol] 34 U/L Normal 10-40 [facility] Comment on above: Performed By: #### C BC, ANEU, VIDH, GFR, CMP, ADIFF #### [address] [address] Bili Total 0.3 mg/dL Normal 0.2-1.0 [facility] Comment on above: Result Comment: Use of this assay is not recommended for patients undergoing treatment with eltrombopag due to the potential for falsely elevated results. Performed By: #### C BC, ANEU, VIDH, GFR, CMP, ADIFF #### [address] [address] BUN/Creatinine Ratio 15 ratio Normal 7-27 [facility] Comment on above: Performed By: #### C BC, ANEU, VIDH, GFR, CMP, ADIFF #### [address] [address] Calcium [Mass/Vol] 9.2 mg/dL Normal 8.4-10.2 [facility] Comment on above: Performed By: #### C BC, ANEU, VIDH, GFR, CMP, ADIFF #### [address] [address] Chloride [Moles/Vol] 102 mmol/L Normal 98-107 [facility] Comment on above: Performed By: #### C BC, ANEU, VIDH, GFR, CMP, ADIFF #### [address] [address] CO2 [Moles/Vol] 31 mmol/L High 22-29 [facility] Comment on above: Performed By: #### C BC, ANEU, VIDH, GFR, CMP, ADIFF #### [address] [address] Creatinine [Mass/Vol] 0.75 mg/dL Normal 0.55-1.02 [facility] Comment on above: Result Comment: Test ing performed on Siemens Dimension EXL analyzer using a modified kinetic Vahid technique. Performed By: #### C BC, ANEU, VIDH, GFR, CMP, ADIFF #### [address] [address] Electrolyte Balance 7.0 mEq/L Normal 4.0-15.0 [facility] Comment on above: Performed By: #### C BC, ANEU, VIDH, GFR, CMP, ADIFF #### [address] [address] Globulin 4.2 G/dL High 1.5-3.8 [facility] Comment on above: Performed By: #### C BC, ANEU, VIDH, GFR, CMP, ADIFF #### [address] [address] Glucose [Mass/Vol] 94 mg/dL Normal 70-105 [facility] Comment on above: Performed By: #### C BC, ANEU, VIDH, GFR, CMP, ADIFF #### [address] [address] Potassium [Moles/Vol] 3.5 mmol/L Normal 3.5-5.1 [facility] Comment on above: Performed By: #### C BC, ANEU, VIDH, GFR, CMP, ADIFF #### [address] [address] Sodium [Moles/Vol] 140 mmol/L Normal 136-145 [facility] Comment on above: Performed By: #### C BC, ANEU, VIDH, GFR, CMP, ADIFF #### [address] [address] Total Protein 7.6 G/dL Normal 6.4-8.2 [facility] Comment on above: Performed By: #### C BC, ANEU, VIDH, GFR, CMP, ADIFF #### [address] [address] Urea nitrogen [Mass/Vol] 11 mg/dL Normal 7-18 [facility] Comment on above: Performed By: #### C BC, ANEU, VIDH, GFR, CMP, ADIFF #### [facility] [address], [place] [address] LABORATORYOrdered By: Gadiel Martínez on 03-31-2024 Appearance [...] Urine SS LABORATORYOrdered By: Sue Turner on 02-14-2025 Cholesterol [Mass/Vol] 183 mg/dL Normal 0 - [...] 03-31-2024 Cholesterol [Mass/Vol] 183 mg/dL Normal 0-200 [facility] Comment on above: Result Comment: Chol esterol Reference Interval: Less than 200 Desirable 200-239 Borderline high risk 240 and above High risk Performed By: #### L IPID, PHOS, MG, TSH #### [place] [address] #### PTH #### [address] [address] Cholesterol in HDL [Mass/Vol] 89 mg/dL High 40-60 [facility] Comment on above: Performed By: #### L IPID, PHOS, MG, TSH #### [place] [address] #### PTH #### [place] [address] Cholesterol in LDL [Mass/Vol] 82 mg/dL Normal 0-130 [facility] Comment on above: Performed By: #### L IPID, PHOS, MG, TSH #### [place] [address] #### PTH #### [address] [address] Triglyceride [Mass/Vol] 59 mg/dL Normal 0-150 [facility] Comment on above: Result Comment: Trig lyceride Reference Interval: Less than 150 Normal 150-199 Borderline high risk 200-499 High risk 500 or higher Very high risk Performed By: #### L IPID, PHOS, MG, TSH #### [place] [address] #### PTH #### [address] [address] MGon 03-31-2024 Magnesium [Mass/Vol] 2.0 mg/dL Normal 1.8-2.4 [facility] Comment on above: Performed By: #### L IPID, PHOS, MG, TSH #### [place] [address] #### PTH #### [place] [address] PHOSon 03-31-2024 Phosphate [Mass/Vol] 3.3 mg/dL Normal 2.7-4.5 [facility] Comment on above: Performed By: #### L IPID, PHOS, MG, TSH #### [place] [address] #### PTH #### [place] [address] PTHon 03-31-2024 PTH, Intact 65.0 pg/mL Normal 18.5-88.0 [facility] Comment on above: Performed By: #### L IPID, PHOS, MG, TSH #### [place] [address] #### PTH #### [place] [address] TSHon 03-31-2024 TSH Qn 1.24 m[IU]/L Normal 0.36-3.74 [facility] Comment on above: Performed By: #### L IPID, PHOS, MG, TSH #### [place] [address] #### PTH #### [place] [address] UAon 03-31-2024 Color (U) Yellow Normal [facility] Comment on above: Performed By: #### L IPID, PHOS, MG, TSH #### [place] [address] #### PTH #### [place] [address] Glucose (U) [Mass/Vol] Negative Normal Negative [facility] Comment on above: Performed By: #### L IPID, PHOS, MG, TSH #### [place] [address] #### PTH #### [address] [address] Ketones Ql (U) Negative Normal Negative [facility] Comment on above: Performed By: #### L IPID, PHOS, MG, TSH #### [address] [address] #### PTH #### [address] [address] UA Appear Slightly Cloudy Abnormal Clear [facility] Comment on above: Performed By: #### L IPID, PHOS, MG, TSH #### [address] [address] #### PTH #### [address] [address] UA Blood Trace Abnormal Negative [facility] Comment on above: Performed By: #### L IPID, PHOS, MG, TSH #### [address] [address] #### PTH #### [address] [address] UA Leuk Est Small Abnormal Negative [facility] Comment on above: Performed By: #### L IPID, PHOS, MG, TSH #### [address] [address] #### PTH #### [address] [address] UA Nitrite Negative Normal Negative [facility] Comment on above: Performed By: #### L IPID, PHOS, MG, TSH #### [address] [address] #### PTH #### [address] [address] UA pH 6.0 Normal 5.0 - 8.0 [facility] Comment on above: Performed By: #### L IPID, PHOS, MG, TSH #### [address] [address] #### PTH #### [address] [address] UA Protein Negative Normal Negative [facility] Comment on above: Performed By: #### L IPID, PHOS, MG, TSH #### [place] [address] #### PTH #### [place] [address] UA Spec Grav 1.020 Normal 1.015-1.02 5 [facility] Comment on above: Performed By: #### L IPID, PHOS, MG, TSH #### [place] [address] #### PTH #### [place] [address] UA Specimen Type Void Normal [facility] Comment on above: Performed By: #### L IPID, PHOS, MG, TSH #### [place] [address] #### PTH #### [place] [address] UA Urobilinogen 0.2 E.U./dL Normal 0.2-1.0 [facility] Comment on above: Performed By: #### L IPID, PHOS, MG, TSH #### [place] [address] #### PTH #### [place] [address] Urobilinogen (U) [Mass/Vol] Negative Normal Negative [facility] Comment on above: Performed By: #### L IPID, PHOS, MG, TSH #### [place] [address] #### PTH #### [place] [address] VIKathrin 03-31-2024 Vit. D 25-Hydroxy 20.8 ng/mL Normal [facility] Comment on above: Result Comment: Inte rpretive Values Based on Total 25(OH) Vitamin D: Deficient <20 ng/mL Insufficient 20 - <30 ng/mL Sufficient 30-100 ng/mL Performed By: #### L IPID, PHOS, MG, TSH #### [facility] [address], [place] [address] #### PTH #### [facility] [address] [place], [place] [address] 36on 03-23-2024 36 (2nd attempt) Called today to schedule screening colonoscopy (surveillance program) Left message to call the screening program at [phone] 1st attempt my chart message sent. [facility] 3603-17-2024 36 MyChart message sent to have patient call screening program if still interested in scheduling a screening colonoscopy. [facility] 37on 03-14-[address] [facility] NEED TO FAX ALL ORDERS OVER WANTS DONE THERE. FAX # TO SEND ORDERS TO IS [phone] 1.) Call Gastroenterology to schedule appointment at [phone] they will get you scheduled for a colonoscopy. 2.) Orders will all be faxed to [facility] you will need to call them to schedule at [phone] ----Mammogram,Lung CT, DEXA Scan/Bone Density--- 3.) Any [...] Recommendations: A preventive eye exam by an pheresis specialist is recommended every 1-2 years to screen for glaucoma, cataracts, macular degeneration, and other eye disorders. A preventive dental visit is recommended every 6 months. Try to get at least 150 minutes of exercise per week or 10,000 steps per day on a pedometer. You need 1200-1500mg of calcium and 7381-8841 international units of vitamin D per day. [...] riding a bicycle or a motorcycle [facility] Office Visiton 03-14-2024 Follow-up visit [id number] Irvin Moncada 1970 F Date Provider Department Center 03/14/2024 [id number] [facility] Family History Problem Relation Age of Onset Arthritis Mother Diabetes Mother Hyperlipidemia Mother Kidney disease Mother Cirrhosis Father Alcohol abuse Father Family Status - Relation Status Age at Mother Father Level of Service:G0438 [place] PPPS, INITIAL VISIT Reason for Visit and [...] ?Medicare Annual Wellness (AWV) -today AULTMA [facility] Progress Noteon 03-14-2024 Progress Note Symptoms well-controlled on Lunesta 3 mg nightly. Continue current medication. [facility] Progress Note Condition stable. Normal [facility] Progress Note Stable. Continue current medications. [facility] Progress Note Obtain labs previous ly ordered by osteoporosis clinic [facility] Progress Note Controlled. Continue atorvastatin 20 mg nightly [facility] Progress Note Controlled. Blood pressure 133/79. Continue amlodipine 5 mg daily [facility] Progress Note Stable. Has been evaluated by Dr. Benson rheumatology. Stable condition no rheumatological interventions indicated [facility] Progress Note History of vitamin D deficiency, check vitamin D level [facility] Progress Note Continue Percocet 5- 3 25 every 8 hours as needed for severe pain. OARRS reviewed and consistent with treatment plan. CS MA is in place. Patient is currently trying to get established with [facility] pain management and is waiting for their reply after sending in their forms about 3 weeks ago. 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 [facility] Progress Note Patient was identifi ed by [...] EXP 01/02/2025 Medicare Annual Wellness (AWV) -today [facility] NEED TO FAX ALL ORDERS OVER WANTS DONE THERE. FAX # TO SEND ORDERS TO IS [phone] 1.) Call Gastroenterology to schedule appointment--they will get you scheduled for a colonoscopy. 2.) Orders will all be faxed to [facility] you will need to call them to schedule at [phone] ----Mammogram,Lung CT, DEXA Scan/Bone Density--- 3.) Any [...] Korin Mack MA in right dorsogluteal. [facility] Progress Note [facility] [address] 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 Relevant Orders Left breast US limited Other Visit Diagnoses Routine general medical examination at health care facility - Primary Colon cancer screening Relevant Orders [facility] Screening for deficiency anemia Relevant Orders [...] IF... (REFER TO PRESCRIPTION NOTES). nystatin (Mycostatin) 556720 UNIT/GM powder Apply topically 3 times daily. [...] Patient states she did reach out to [facility] pain management and sent the information they needed to them about 3 weeks ago and is waiting for them to call to schedule. They were recommended by the methods specialist Dr. Benson. Last visit we gave her [...] effects of t (more content not included)... [place] [address]on 03-02-2024 36 CSA 01/11/24 [place] [address] Ordering provider: Augustus Goodman Date of last office visit: 01/11/2024 [...] of last refill (see medication tab): 02/03/2024 [place] [address]on 02-28-2024 36 Orders cancelled [place] [address] Ok to cancel [place] [address] As of today, 02/28/24 , pt has not scheduled for a CT-Lung Screen. Okay to cancel orders as they will close on 03/04/24 due to being . [place] [address]on 02-17-2024 36 12/09/23 rfp Percoce t CSA - 12/07/2024 [facility] 36 Medication name: The patient does not [...] prior to picking up the medication: Yes [address] 02-07-2024 36 Prescription Request : Last medication check: 01/11/24 Last physical exam: 03/04/23 Next scheduled appointment: 03/02/24 Last date of refill on this medication 12/30/23 30 tablets [address] 02-03-2024 36 Rx sent, OARRS repor t done, no inconsistencies, CS agreement in place [facility] 36 Rx sent, OARRS repor t done, no inconsistencies, CS agreement in place [address] 02-01-2024 36 Prescription Request : Last medication check: 01/11/2024 Last physical exam: 03/04/2023 Next scheduled appointment: 03/02/2024 CSA on file (date): 01/11/2024 Last urine drug screen: none Last date of refill on this medication: 01/08/2024 [facility] 36 Prescription Request : Last medication check: 01/11/2024 Last physical exam: 03/04/2023 Next scheduled appointment: 03/02/2024 CSA on file (date): 12/09/2023 Last urine drug screen: none Last date of refill on this medication: 01/08/2024 [facility] Emergency Department Summary on 01-22-2024 Emergency Department Summary [facility] Medical Records Department [address] [place] [address] Emergency Department Summary 01/22/24 MR#: [id number] Acct: [id number] Name: SUE MONCADA Rep #: [id number] : 1970 53 From: Song Hampton DO [...] she is chronically on pain medicine already. [facility] Medical History Left rotator cuff tear [...] edema Genera (more content not included)... Normal [facility] 37on 01-11-2024 37 Please reach out to Dr. Benson to see what landscape painter it was that she recommended for you. [phone] [facility] Office Visiton 01-11-2024 Follow-up visit [id number] Irvin Moncada 1970 F Date Provider Department Center 01/11/2024 [id number] TRINIDAD [facility] Family History Problem Relation Age of Onset Arthritis Mother Diabetes Mother Hyperlipidemia Mother Kidney disease Mother Cirrhosis Father Alcohol abuse Father Family Status - Relation Status Age at Mother Father Level of Service:36399 [place] OFFICE/OUTPATIENT ESTABLISHED MOD MDM 30 MIN Reason for Visit and Comments: Follow-up [727194] [facility] Progress Noteon 01-11-2024 Progress Note Within the breast folds. Keep area clean and dry and apply nystatin twice daily until clears. Follow-up for worsening or failure for symptoms to improve [facility] Progress Note MRI showing soft tissue thickening without other concerning findings. Continue to monitor [facility] Progress Note Patient did not have significant improvement with physical therapy. We will give Kenalog injection IM to see if this helps with her pain. [facility] Progress Note 01/11/2024 Sue Moncada (: 1970) is a 53 y.o. female , Established patient, here for evaluation of the following chief complaint(s): Follow-up ASSESSMENT/PLAN: 1. Chronic pain syndrome Assessment & Plan: Continue Percocet 5-3 25 every 8 hours as needed for severe pain. OARRS reviewed and consistent with treatment plan. CS MA is in place. Patient is to reach out to methods specialist to see what pain management doctor was [...] symptoms to improve Orders: - nystatin (Mycostatin) 568241 UNIT/GM powder; Apply topically 3 times daily., Starting Wed01/11/2024, Until Wed01/10/2025, Normal 4. Chronic right-sided low back pain without sciatica - triamcinolone acetonide (Kenalog-40) injection 80 mg; 80 mg, IntraMUSCular, Once, On Wed01/11/24 at 1600, For 1 dose 5. Mass on back Assessment & Plan: MRI showing soft tissue thickening without other concerning findings. Continue to monitor Follow up for 3 month medche. SUBJECTIVE/OBJECTIVE: BRADFORD Moncada (: 1970) is a 53 y.o. female , Established patient, here for the evaluation of the following chief complaint(s): Follow-up Presents for follow-up chronic pain. Has been seen by methods specialist-Dr. Benson. [employer] Driver did recommend a specific landscape painter but we are unsure of whom the [...] hospice. 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 She is requesting an increase of her Percocet. Patient was advised that I am unable to increase her pain medication and that we need to get her to a landscape painter that we will manage her pain for [...] by mouth Nightly. 12/23/23 Yes Jeri Bridenthal, [employer]IVE MANAGER amLODIPine (Norvasc) 5 MG tablet Take 1 tablet (5 mg) by mouth daily. 11/03/23 11/24/24 Yes Jeri Bridenthal, [employer]IVE MANAGER atorvastatin (Lipitor) 20 MG tablet take 1 tablet by mouth nightly 09/08/23 Yes Jeri Abilioenthal [employer] choline fenofibrate (Trilipix) [address] capsule Take by mouth. 11/24/21 Yes Historical Provider, dexlansoprazole (Dexilant) [address] capsule take 1 capsule by mouth once daily 07/26/23 Yes Jeri Bridenthal, [employer] eszopiclone (Lunesta) 3 MG tablet Take 1 tablet (3 mg) by mouth Nightly as needed for sleep. Take immediately before bedtime 01/07/24 02/06/24 Yes Jose D Goodman MD naloxone (Narcan) 4 mg/0.1 mL [...] at bedtime if needed 12/30/23 Yes KATHERINE Escalante CNP eszopiclone (Lunesta) 3 MG tablet Take 1 tablet (3 mg) by mouth Nightly as needed for sleep. Take immediately before bedtime 11/27/23 01/07/24 KATHERINE Escalante CNP Review of Systems Constitutional: Negative. Negative for activity change, chills, fatigue and fever. HENT: Negative. Respiratory: Negative. Cardiovascular: Negative. Gastrointestinal: Negative for abdominal pain, blood in stool, nausea and vomiting. Alternates between constipaton and loose stools- IBS Genitourinary: Negative for difficulty urinating. Musculoskeletal: Positive for back pain and gait problem. N (more content not included)... [facility] Progress Note Patient was identifi ed by name and Date of . [facility] 36on 01-07-2024 36 Please have her sign at visit on Wednesday. Thanks! [place] [address] Rx sent, OARRS repor t done, no inconsistencies, CS agreement is out of date she needs to sign a new one before we refill the next prescription. [facility] 36 CSA 11/24/22 [place] [address] Patient stated that they only have 1 [...] prior to picking up the medication: Yes [address] 12-30-2023 36 CSA 12/09/23 [place] [address] Ordering provider: Jeri Trinidad Date of last [...] of last refill (see medication tab): 11.03.[address] 12-23-2023 36 Reviewed chart. Refi ll appropriate. RX sent. [place] [address] Prescription Request : Last medication check: 12/09/23 Last physical exam: 03/04/23 Next scheduled appointment: 01/11/24 Last date of refill on this medication 06/24/23 90 day [address] 12-14-2023 36 Last office visit no te and summary faxed to number provided. [place] [address] Called and spoke lilli h Dr. Benson, [...] her. Will send most recent OV note. [facility] 36on 12-09-2023 36 Fax sent over to Dr. Benson. If she returns phone call please put her through to Vi WILKES. [facility] Office Visiton 12-09-2023 Follow-up visit [id number] Irvin Moncada 1970 F Date Provider Department Center 12/09/2023 [id number] [facility] Family History Problem Relation Age of Onset Arthritis Mother Diabetes Mother Hyperlipidemia Mother Kidney disease Mother Cirrhosis Father Alcohol abuse Father Family Status - Relation Status Age at Mother Father Level of Service:44383 [place] OFFICE/OUTPATIENT ESTABLISHED MOD MDM 30 MIN Reason for Visit and Comments: Follow-up [[id number]] [facility] Progress Noteon 12-09-2023 Progress Note Initial blood pressu re elevated, repeat blood pressure good 119/77. Continue amlodipine 5 mg daily. Remember to bring home blood pressure cuff to the next office visit [facility] Progress Note Patient was unable t o [...] appointment with rheumatology next week. Hopeful that methods specialist will have some recommendations for pain management. At this time we will continue current dose of Percocet 5 mg every 8 hours as needed for pain, OARRS reviewed and consistent with treatment plan. CS MA is in place [facility] Progress Note Severe. Pain poorly managed [facility] Progress Note Patient reports she has an appointment on the to establish care with Dr. Benson rheumatology. Provider will try to reach out to Dr. Benson prior to her appointment to discuss patient's plan of care [facility] Progress Note 12/09/2023 Sue Moncada (: 1970) [...] appointment with rheumatology next week. Hopeful that methods specialist will have some recommendations for pain management. At this time we will continue current dose of Percocet 5 mg every 8 hours as needed for pain, OARRS reviewed and consistent with treatment plan. MA is in place Orders: - oxyCODONE-acetaminophe [...] recent illnesses or injuries. Dr. Casey in [place] - does her shoulder injections and has done some hip injections (bursitis) . (can only do the right shoulder d/t disorder). 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 Lives alone in apartment. Insomnia- we tried to decrease the lunesta dose last visit but she stated that she was unable to sleep at all on the 2 mg dose. She was on bupropion previ (more content not included)... Normal [facility] Progress Note Patient was identifi ed by [...] Immunization(s) was given by Korin Mack MA. [facility] Orthopedic Visit Reporton Orthopedic Visit Report [facility] [address] [place] [address] OFFICE VISIT Date of Service: 12/07/23 MR#: [id number] Acct: [id number] Name: SUE MONCADA Rep #: [id number] : 1970 Provider: Dr. Shady rojas MD Age/Sex: 53/F Location: [facility] [place].ALEXUS Status: Signed Intake Vital Signs 05/12/23 14:50 [...] by me, Dr. Shady Burks MD 12/07/23 6874. 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 Supplemental Info [facility] Radiology [address] [place] [address] Shoulder min 2 Views MR#: [id number] Acct: [id number] Name: SUE MONCADA Rep #: [id number] : 1970 F 52 From: Alex Oseguera DO PCP: Status: DEP AMB Study: Shoulder min 2 Views Date of Exam: 12/23/22 Exam# [id number] Ordering Dr: Rayo Cantu DO [id number] EXAM: XR LEFT SHOULDER COMPLETE, 2 OR [...] 21:12 ES (more content not included)... Normal [facility] 11-26-2023 36 Spoke to Sue, pharmacy updated to [facility] in [place]. [facility] 11-25-2023 36 Jeri Trinidad, [employer] - INVASIVE MANAGER [facility] Clinical Support Staff1 hour ago (12:26 PM) Please notify patient that I will change it back to the Lunesta 3 mg nightly dose. Please confirm pharmacy Called Sue, no answer and vm is full. Normal [facility] 36 Name of caller: rodrigue feng Contact phone number: [phone] Relationship to Patient: patient Provider: KATHERINE Escalante CNP Practice: [facility] Chief Complaint/Reason for Call: Patient is following [...] business hours to return their call: Yes [facility] Orthopedic Visit Reporton Orthopedic Visit Report [facility] [address] [place] [address] OFFICE VISIT Date of Service: 11/24/23 MR#: [id number] Acct: [id number] Name: SUE MONCADA Rep #: [id number] : 1970 Provider: Dr. Rayo paredes DO Age/Sex: 53/F Location: [facility] [place].ALEXUS Status: Signed Intake Vital Signs 05/12/23 14:50 [...] the decisions made by me, Dr. Rayo Cantu, DO 11/24/23 1344. Part of today???s visit [...] Performing Provider: Rayo Cantu DO Performing Location: [facility] Administered by: Rayo Cantu DO on 11/24/23 15:53 Dose Route Admin Location Dispensed Lot Number Expiration Date [facility] ufacturer 40 mg intra-articular right subacromial 1 mL [id number] 11/15/24 1584-6897-37 [employer] Supplemental Info 12/23/2022 x-ray right shoulder : [...] enchondroma unchange (more content not included)... Normal [facility] CBC panel Auto (Bld)on 03-05 Erythrocyte distribution width (RBC) [Ratio] 13.0 % 11.0 - 15.0 % [facility] Erythrocyte distribution width (RBC) [Ratio] 13 % 11.0 - 15.0 % [facility] Hematocrit (Bld) [Volume fraction] 39.4 % 35.0 - 45.0 % [facility] Hemoglobin (Bld) [Mass/Vol] 13.6 g/dL 11.7 - 15.5 g/dL [facility] MCH (RBC) [Entitic mass] 31.5 pg 27. 0 - 33.[address] [facility] MCHC (RBC) [Mass/Vol] 34.5 g/dL 32.0 - 36.0 g/dL [facility] MCV (RBC) [Entitic vol] 91.2 fL 80.0 - 100.[address] [facility] Platelet mean volume (Bld) [Entitic vol] 11.0 fL 7.5 - 12.[address] [facility] Platelet mean volume (Bld) [Entitic vol] 11 fL 7.5 - 12.[address] [facility] Platelets (Bld) [#/Vol] 402 10*3/uL High [facility] RBC (Bld) [#/Vol] 4.32 10*6/uL [facility] WBC (Bld) [#/Vol] 7.2 10*3/uL [facility] Comprehensive metabolic 1998 panelon 03-05-2023 Albumin [Mass/Vol] 4.3 g/dL 3.6 - 5.1 g/dL [facility] Albumin/Globulin [Mass ratio] 1.2 {ratio} [facility] ALP [Catalytic activity/Vol] 172 U/L High 37 - 153 U/L [facility] ALT [Catalytic activity/Vol] 24 U/L 6 - 29 U/L [facility] AST [Catalytic activity/Vol] 31 U/L 10 - 35 U/L [facility] Bilirubin [Mass/Vol] 0.3 mg/dL 0.2 - 1 .2 mg/dL [facility] Calcium [Mass/Vol] 9.8 mg/dL 8.6 - 10. 4 mg/dL [facility] Chloride [Moles/Vol] 102 mmol/L 98 - 11 0 mmol/L [facility] CO2 [Moles/Vol] 25 mmol/L 20 - 32 mmol/L [facility] Creatinine [Mass/Vol] 0.52 mg/dL 0.50 - 1.03 mg/dL [facility] GFR/1.73 sq M.predicted among non-blacks MDRD (S/P/Bld) [Vol rate/Area] 113 mL/min/{1.73_m2} > OR = 60 mL/min/1.[address] [facility] Globulin (S) [Mass/Vol] 3.5 g/dL [facility] Glucose [Mass/Vol] 88 mg/dL 65 - 99 mg/dL [facility] Comment on above: Fasting reference interval Potassium [Moles/Vol] 4.2 mmol/L 3.5 - 5.3 mmol/L [facility] Protein [Mass/Vol] 7.8 g/dL 6.1 - 8.1 g/dL [facility] Sodium [Moles/Vol] 139 mmol/L 135 - 146 mmol/L [facility] Urea nitrogen [Mass/Vol] 11 mg/dL 7 - 25 mg/dL [facility] Urea nitrogen/Creatinine [Mass ratio] SEE NOTE: [facility] Comment on above: Not Reported: BUN an d Creatinine are within reference range. Laboratory - Chemistry and C hemistry - challengeon 03-05-2023 25-hydroxyvitamin D3 [Mass/Vol] 31 ng/mL 30 - 100 ng/mL [facility] Comment on above: Vitamin D Status 25- [place] Vitamin D: Deficiency: <20 ng/mL Insufficiency: 20 - 29 ng/mL Optimal: > or = 30 ng/mL For 25-OH Vitamin D testing on patients on D2-supplementation and patients for whom quantitation of D2 and D3 fractions is required, the QuestAssureD(TM) 25-OH VIT D, (D2,D3), LC/MS/MS is recommended: order code 69325 (patients >2yrs). See Note 1 Note 1 For additional information, please refer to http://education.[employer]faq/SIK449 (This link is being provided for informational/ educational purposes only.) Cobalamin (Vitamin B12) [Mass/Vol] 542 pg/mL 200 - 1100 pg/mL [facility] Lipid 1996 panelon 4 Cholesterol [Mass/Vol] 296 mg/dL High NINF - 200 mg/dL [facility] Cholesterol in HDL [Mass/Vol] 76 mg/dL > OR = [address] [facility] Cholesterol in LDL [Mass/Vol] 179 mg/dL High mg/dL (calc) [facility] Comment on above: Reference range: <10 0 Desirable range <100 mg/dL for primary prevention; <70 mg/dL for patients with CHD or diabetic patients with > or = 2 CHD risk factors. LDL-C is now calculated using the Julia calculation, which is a validated novel method providing better accuracy than the Friedewald equation in the estimation of LDL-C. Vitor BRYANT et al. CORTEZ. 2013;310(19): 4652-2607 (http://education.[employer]/faq/VWI749) Cholesterol non HDL [Mass/Vol] 220 mg/dL High [facility] Comment on above: Non-HDL level > or [...] ol in HDL [Mass ratio] 3.9 {ratio} [facility] Triglyceride [Mass/Vol] 224 mg/dL High [facility] - 150 mg/dL [facility] Comment on above: If a non-fasting specimen was collected, consider repeat triglyceride testing on a fasting specimen if clinically indicated. Dennis et al. J. of Clin. Lipidol. 2015;9:129-169. No Panel Informationon 03-05 Interpretation and review of laboratory results Abnormal [facility] Influenza virus A and B and SARS-CoV-2 (COVID-19) Ag panel - Upper respiratory specimOrdered By: Bianca Powers on 02-15-2023 SARS-CoV-2 & FLU Antigen (Rapid) SARS-CoV-2 (COVID 19) [facility] AMB POC DRUG SCREEN 12, LABS OURCEon 02-03-2023 Amphetamine Screen, Urine Negative [facility] Barbiturates Screen Ql (U) Not detected N one Detected [facility] Benzodiazepines Ql (U) Not detected None Detected [facility] BUPRENORPHINE SCREEN Negative Negative [facility] Cannabinoids Screen (U) [Mass/Vol] Positive [facility] Cocaine Ql (U) Not detected None Detected [facility] FENTANYL SCREEN, URINE Negative Negative [facility] Interpretation and review of laboratory results Abnormal [facility] Methadone Screen Ql (U) Negative [facility] Methamphetamine (U) [Mass/Vol] Negative [facility] Methylenedioxymethamphetami ne (U) [Mass/Vol] Negative ng/mL [facility] oxyCODONE Ql (U) Positive [facility] Tricyclic antidepressants Screen Ql (U) Positive [facility] 11-18-2022 CNOV Office Visit ([facility] ) RODRIGUE MONCADAY Champ ([id number]) 1970 F [place] Date Time Provider Department 11/18/22 3:00 PM SABRINA TINEO [facility] During your visit today, we recorded the following information about you: Pulse Blood pressure Weight 108/minute 186/99 45 kg Sabrina Tineo MD 11/18/2022 4:01 PM Signed Sabrina Tineo MD Pain Management Pain Management [place] [address] Dept: [phone] New Patient Chronic Pain Consult Note Date: 11/18/2022 3:06 PM Referring physician: self This consult was requested by Self for my medical opinion. My final recommendations will be communicated to the referring physician by way of the shared medical record for internal providers or by letter via the [employer] for external providers. Nursing Assessment: [...] headaches CARDIOVASCULAR: Any history of cardiac arrhythmias, HI, prior CVA, or heart failure? No GASTROINTESTINAL: [...] from 9- (more content not included)... Normal [facility] SUE MONCADA ([id number]) 1970 F [place] Date Time Provider Department 11/18/22 SABRINA TINEO [facility] During your visit today, we recorded the following information about you: Yady Greer 11/18/2022 1:22 PM Signed Dear Patient, This is a follow up phone call regarding your appointment with Dr. Tineo At [facility] Pain Management. Your appointment time is 3pm [...] referring physician. 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 [...] Encounter Status:Closed by YADY GREER on 11/18/22 Normal [facility] Laboratory - Drug toxicology Ordered By: Yovani Rosario on 08-31-2022 Amphetamines Ql (U) Negative <1000 ng/mL [facility] Benzodiazepines Ql (U) Negative < 200 ng/mL [facility] Cannabinoids Screen Ql (U) Positive < 50 ng/m L [facility] Cocaine Ql (U) Negative < 300 ng/mL [facility] Opiates Ql (U) Negative < 300 ng/mL [facility] No Panel InformationOrdered By: Yovani Rosario on 08-31-2022 MDMA (Ecstasy) Screen Negative < 500 ng/mL [facility] Urine Barbiturates Screen Negative < 200 ng/mL [facility] Urine Drug Screen Comment [facility] Comment on above: CONFIRMATORY TESTING [...] Urine Methadone Screen Negative < 300 ng/mL [facility] Urine phencyclidine (PCP) de tectionOrdered By: Yovani Rosario on 08-31-2022 Phencyclidine Ql (U) Negative < 25 ng/mL [facility] Basophil percentageon 2022 Bilirubin [Mass/Vol] 0.20 mg/dL 0.20-1.00 [facility] Comment on above: For patients on eltr ombopag therapy, use of Dimension Mcclusky TBIL is not recommended. Chloride [Moles/Vol] 103 mmol/L 98-107 [facility] Glucose [Mass/Vol] 94 mg/dL 74-106 [facility] Potassium [Moles/Vol] 3.5 mmol/L 3.5-5.1 [facility] Protein [Mass/Vol] 7.3 g/dL 6.4-8.2 [facility] Sodium [Moles/Vol] 139 mmol/L 136-145 [facility] WBC (Bld) [#/Vol] 6.1 10*3/uL 4.4-11.0 [facility] Blood erythrocytes count (nu mber/volume)on 05-21-2022 RBC (Bld) [#/Vol] 3.36 10*6/uL 4.2-5.4 [facility] Blood hemoglobin measurement (mass/volume)on 05-21-2022 Hemoglobin (Bld) [Mass/Vol] 10.4 g/dL 12.0-15. 0 [facility] Blood platelet mean volumeon 05-21-2022 Platelet mean volume (Bld) [Entitic vol] 9.7 fL 6.2-12.0 [facility] Determination of erythrocyte mean corpuscular volume (MCV)on 05-21-2022 MCV (RBC) [Entitic vol] 93.8 fL 81-99 [facility] Erythrocyte sedimentation ra ben 05-21-2022 ESR (Bld) [Velocity] 42 mm/h 0-30 [facility] Hematocrit Auto (Bld) [Volum e fraction]on 05-21-2022 Hematocrit (Bld) [Volume fraction] 31.5 % 37-47 [facility] Laboratory - Chemistry and C hemistry - challengeon 05-21-2022 ALP [Catalytic activity/Vol] 157 U/L 45-117 [facility] ALT [Catalytic activity/Vol] 18 U/L 13-56 [facility] CO2 [Moles/Vol] 29.0 mmol/L 21.0-32.0 [facility] Globulin (S) [Mass/Vol] 4.2 g/dL 2.2-4.2 [facility] Urea nitrogen/Creatinine [Mass ratio] 10.8 mg/mg 10-20 [facility] Laboratory - Hematology and Cell countson 05-21-2022 Erythrocyte distribution width (RBC) [Entitic vol] 44.4 fL 35.1-43.9 [facility] Erythrocyte distribution width (RBC) [Ratio] 13.0 % 11.6-14.6 [facility] MCH (RBC) [Entitic mass] 31.0 pg 27.0-32.0 [facility] MCHC Auto (RBC) [Mass/Vol]on 05-21-2022 MCHC (RBC) [Mass/Vol] 33.0 g/dL 32-36 [facility] No Panel Informationon 05-21 Estimated Creatinine Clearance Calc 64.53 ml/min [facility] Estimated GFR (MDRD) Amer 107 mL/min >60 [facility] Comment on above: GFR Calc Estimated GFR (MDRD) Non-Af Amer 88 mL/min >60 [facility] Comment on above: Non- GFR Calc Platelets bldon 05-21-2022 Platelets (Bld) [#/Vol] 374 10*3/uL 150-450 [facility] Serum or plasma albumin rosalva urement (mass/volume)on 05-21-2022 Albumin [Mass/Vol] 3.1 g/dL 3.2-5.0 [facility] Serum or plasma albumin/glob ulin mass ratioon 05-21-2022 Albumin/Globulin [Mass ratio] 0.7 {ratio} 0.9-2.4 [facility] Serum or plasma calcium rosalva urement (mass/volume)on 05-21-2022 Calcium [Mass/Vol] 9.2 mg/dL 8.5-10.1 [facility] Serum or plasma creatinine m easurement (mass/volume)on 05-21-2022 Creatinine [Mass/Vol] 0.74 mg/dL 0.55-1.02 [facility] Comment on above: The validity of the calculated GFR & GFRAA in patients over 70 years has not been determined. Clinical correlation is essential. Serum or plasma urea nitroge n measurement (mass/volume)on 05-21-2022 Urea nitrogen [Mass/Vol] 8 mg/dL 7-18 [facility] Thin prep Papanicolaou smear with manual screeningon 05-21-2022 Thin prep Papanicolaou smear with manual screening 30 U/L 15-37 [facility] Thin prep Papanicolaou smear with manual screening 7 5-15 [facility] Basophil percentageon 2022 Bilirubin [Mass/Vol] 0.20 mg/dL 0.20-1.00 [facility] Comment on above: For patients on eltr ombopag therapy, use of Dimension Mcclusky TBIL is not recommended. Chloride [Moles/Vol] 102 mmol/L 98-107 [facility] Glucose [Mass/Vol] 104 mg/dL 74-106 [facility] Comment on above: Fasting Glucose resu lt from 100 to 125 mg/dL suggests IMPAIRED HOMEOSTASIS per A.D.A. criteria. Potassium [Moles/Vol] 3.1 mmol/L 3.5-5.1 [facility] Protein [Mass/Vol] 7.4 g/dL 6.4-8.2 [facility] Sodium [Moles/Vol] 138 mmol/L 136-145 [facility] WBC (Bld) [#/Vol] 7.4 10*3/uL 4.4-11.0 [facility] Blood erythrocytes count (nu mber/volume)on 05-14-2022 RBC (Bld) [#/Vol] 3.51 10*6/uL 4.2-5.4 [facility] Blood hemoglobin measurement (mass/volume)on 05-14-2022 Hemoglobin (Bld) [Mass/Vol] 10.6 g/dL 12.0-15. 0 [facility] Blood platelet mean volumeon 05-14-2022 Platelet mean volume (Bld) [Entitic vol] 9.5 fL 6.2-12.0 [facility] Determination of erythrocyte mean corpuscular volume (MCV)on 05-14-2022 MCV (RBC) [Entitic vol] 92.6 fL 81-99 [facility] Erythrocyte sedimentation ra ben 05-14-2022 ESR (Bld) [Velocity] 40 mm/h 0-30 [facility] Hematocrit Auto (Bld) [Volum e fraction]on 05-14-2022 Hematocrit (Bld) [Volume fraction] 32.5 % 37-47 [facility] Laboratory - Chemistry and C hemistry - challengeon 05-14-2022 ALP [Catalytic activity/Vol] 141 U/L 45-117 [facility] ALT [Catalytic activity/Vol] 11 U/L 13-56 [facility] CO2 [Moles/Vol] 27.0 mmol/L 21.0-32.0 [facility] Globulin (S) [Mass/Vol] 4.5 g/dL 2.2-4.2 [facility] Urea nitrogen/Creatinine [Mass ratio] 10.8 mg/mg 10-20 [facility] Laboratory - Hematology and Cell countson 05-14-2022 Erythrocyte distribution width (RBC) [Entitic vol] 43.8 fL 35.1-43.9 [facility] Erythrocyte distribution width (RBC) [Ratio] 12.9 % 11.6-14.6 [facility] MCH (RBC) [Entitic mass] 30.2 pg 27.0-32.0 [facility] MCHC Auto (RBC) [Mass/Vol]on 05-14-2022 MCHC (RBC) [Mass/Vol] 32.6 g/dL 32-36 [facility] No Panel Informationon 05-14 Estimated Creatinine Clearance Calc 51.35 ml/min [facility] Estimated GFR (MDRD) Amer 83 mL/min >60 [facility] Comment on above: GFR Calc Estimated GFR (MDRD) Non-Af Amer 68 mL/min >60 [facility] Comment on above: Non- GFR Calc Platelets bldon 05-14-2022 Platelets (Bld) [#/Vol] 363 10*3/uL 150-450 [facility] Serum or plasma albumin rosalva urement (mass/volume)on 05-14-2022 Albumin [Mass/Vol] 2.9 g/dL 3.2-5.0 [facility] Serum or plasma albumin/glob ulin mass ratioon 05-14-2022 Albumin/Globulin [Mass ratio] 0.6 {ratio} 0.9-2.4 [facility] Serum or plasma calcium rosalva urement (mass/volume)on 05-14-2022 Calcium [Mass/Vol] 9.4 mg/dL 8.5-10.1 [facility] Serum or plasma creatinine m easurement (mass/volume)on 05-14-2022 Creatinine [Mass/Vol] 0.93 mg/dL 0.55-1.02 [facility] Comment on above: The validity of the calculated GFR & GFRAA in patients over 70 years has not been determined. Clinical correlation is essential. Serum or plasma urea nitroge n measurement (mass/volume)on 05-14-2022 Urea nitrogen [Mass/Vol] 10 mg/dL 7-18 [facility] Thin prep Papanicolaou smear with manual screeningon 05-14-2022 Thin prep Papanicolaou smear with manual screening 22 U/L 15-37 [facility] Thin prep Papanicolaou smear with manual screening 9 5-15 [facility] Vancomycin troughon 05-15-19 Vancomycin trough [Mass/Vol] ug/mL 5.0-15.0 [facility] Comment on above: VANCOMYCIN STANDARED DRUG THERAPY TROUGH LEVEL: 5.0 - 15.0 mg/L VANCOMYCIN HIGH INTENSITY THERAPY TROUGH LEVEL: 15.0 - 20.0 mg/L High Intensity therapy recommended for serious lifethreatening infections include:- Kepuylsaky-Aauamhuffnme-Clwkegqgx (Ventilator/Healtcare Associated)-Sepsis PLEASE CONTACT PHARMACY SERVICES (#6562) FOR INTERPRETATIONOF RESULTS. LABORATORYOrdered By: SYSTEM SYSTEM [...] Invalid Interpretation Code 4.0 - 15.0 mEq/L AH ADM SS Eosinophils (Bld) [#/Vol] 0.0 103/mcL [...] d Interpretation Code 0.9 - 4.3 10^3/mcL AH Workflow SS Lymphocytes/100 WBC (Bld) 14.2 % Invali d Interpretation Code 20.0 - 40.0 % AH Workflow SS MCH (RBC) [Entitic mass] 31.0 pg Invalid Interpretation Code 27.0 - 33.0 pg AH Workflow SS MCHC 33.7 G/dL Invalid Interpretation Code 32.0 - 36.0 G/dL AH Workflow SS MCV (RBC) [Entitic vol] 92.0 fL Invalid Interpretation Code 80.0 - 99.0 fL AH Workflow SS Monocytes (Bld) [#/Vol] 0.8 103/mcL Invalid Interpretation Code 0.1 - 1.4 10^3/mcL AH Workflow SS Monocytes/100 WBC (Bld) 10.3 % Invalid Interpretation Code 2.0 - 13.0 % AH Workflow SS Neutrophils (Bld) [#/Vol] 5.6 103/mcL Invali d Interpretation Code 2.3 - 8.1 10^3/mcL AH Workflow SS Neutrophils/100 WBC (Bld) 75.1 % Invali d Interpretation Code 50.0 - 75.0 % AH Workflow SS Platelet mean volume (Bld) [Entitic vol] 7.8 fL Invalid Interpretation Code 6.6 - 10.5 fL AH Workflow SS Platelets (Bld) [#/Vol] 419 103/mcL Invalid Interpretation Code 150 - 450 10^3/mcL AH Workflow SS Potassium [Moles/Vol] 3.6 mmol/L Invalid Interpretation Code 3.5 - 5.0 mEq/L ADM SS Comment on above: Result Comment: Spec imen slightly hemolyzed. RBC (Bld) [#/Vol] 3.80 106/mcL Invalid Interpretation Code 4.10 - 5.30 10^6/mcL AH Workflow SS Sodium [Moles/Vol] 138 mmol/L Invalid [...] Comment on above: Result Comment: Note s [id number] Clostridium difficile PCR Int No tcdB gene DNA detected. Negative test results may occur from improper collection, handling or storage of specimen, technical error, or extremely low levels of target below the limit of detection of the assay. Invalid Interpretation Code Auto Viro/Sero SS LABORATORYOrdered By: SYSTEM SYSTEM on 05-05-2022 Basophils (Bld) [#/Vol] 0.1 103/mcL Invalid Interpretation Code 0.0 - 0.3 10^3/mcL AH Workflow SS Basophils/100 WBC (Bld) 1.3 % Invalid Interpretation Code 0.0 - 2.5 % AH Workflow SS Calcium [Mass/Vol] 9.3 mg/dL Invalid Interpretation Code 8.7 - 10.4 mg/dL AH ADM SS Chloride [Moles/Vol] 106 mmol/L Invalid [...] 27.0 - 33.0 pg Workflow SS MCHC 33.5 G/dL Invalid Interpretation Code 32.0 - 36.0 G/dL Workflow SS MCV (RBC) [Entitic vol] 91.5 [...] 10.5 fL Workflow SS Platelets (Bld) [#/Vol] 364 103/mcL [...] Invalid Interpretation Code 0.0 - 2.5 % AH Workflow SS Calcium [Mass/Vol] 9.1 mg/dL Invalid [...] mg/dL ADM SS Urea nitrogen/Creatinine [Mass ratio] 10.0 ratio Invalid Interpretation Code 10.0 - 22.0 ratio AH ADM SS WBC (Bld) [#/Vol] 8.7 103/mcL Invalid Interpretation Code 4.5 - 10.8 10^3/mcL Workflow SS LABORATORYOrdered By: SYSTEM SYSTEM on 05-03-2022 Albumin BCP dye [Mass/Vol] 2.5 G/dL Inval id Interpretation Code 3.2 - 4.8 G/dL AH ADM SS Albumin/Globulin [Mass ratio] 0.7 {ratio} Invalid Interpretation Code 0.9 - 1.6 ratio AH ADM SS ALP [Catalytic activity/Vol] 253 U/L Invalid Interpretation Code 38 - 126 U/L ADM SS ALT No additional P-5'-P [Catalytic activity/Vol] 25 U/L Invalid Interpretation Code 10 - 49 U/L AH ADM SS AST [Catalytic activity/Vol] 33 U/L Invalid Interpretation Code 8 - 34 U/L ADM SS Bilirubin [Mass/Vol] 0.20 mg/dL Invalid Interpretation Code 0.20 - 1.20 mg/dL AH ADM SS Globulin 3.7 G/dL Invalid Interpretation Code 1.5 - 3.8 G/dL AH ADM SS Protein [Mass/Vol] 6.2 G/dL Invalid Interpretation Code 5.7 - 8.2 G/dL ADM SS LABORATORYOrdered By: HCI SYSTEM on 05-02-2022 Albumin BCP dye [Mass/Vol] [...] lid Interpretation Code 7 - 185 U/L AH ADM SS Globulin 3.6 G/dL Invalid Interpretation Code 1.5 - 3.8 G/dL ADM SS Magnesium [Mass/Vol] 2.0 mg/dL Invalid Interpretation Code 1.6 - 2.4 mg/dL AH ADM SS Protein [Mass/Vol] 6.1 G/dL Invalid [...] mmol/L AH Auto Chem SS LABORATORYOrdered By: HCI SYSTEM on 05-01-2022 CRP [Mass/Vol] 15.1 mg/dL [...] Culture Wound Aerobe No growth to date [facility] Work Phone: GS 1+ Polymorphonuclear cells Rare Mononuclear cells Rare Epithelial cells No organisms seen. [facility] Work Phone: LABORATORYOrdered By: Gisella [...] or 2. Interpretative criteria are not available. [facility] Work Phone: GS Rare Epithelial cell s No organisms seen. [facility] Work Phone: Microscopic examination of blood, culture Culture has been received in lab and is no growth to date. Routine cultures are held for 5 days. [facility] Work Phone: LABORATORYOrdered By: SYSTEM [...] in some clinical conditions. Invalid Interpretation Code AH Chemistry S OV 11-06-2021 CNOV Office Visit (SPAGWO ) SUE MONCADA ([id number]) 1970 F Date Time Provider Department 11/06/21 9:30 AM MARCELLUS ROSADO During your visit today, we recorded the following information about you: [facility] SUE MONCADA ([id number]) 1970 F Date Time Provider Department 10/02/21 9:00 AM WINIFRED, CAMELIA M SPAGWO During your visit today, we recorded the following information about you: Pulse Respiration Normal [facility] Vital Signs Date Time Vital Sign Value Performing Clinician Facility 10-26-2024 09:29-0400 Body height 137.2 cm Deepa Cassidy [employer]IVE MA[employer] Work Phone: [facility] 10-26-2024 09:29-0400 Body mass index (BMI) [Ratio] 24.3 kg/m2 Deepa Cassidy [employer] INVASIVE MANAGER Work Phone: [facility] 10-26-2024 09:29-0400 Body temperature 97 [degF] Deepa Cassidy [employer] IN[employer]ASIVE MANAGER Work Phone: [facility] 10-26-2024 09:29-0400 Body weight 45.72 kg Deepa Cassidy [employer] IN[employer]ASIVE MANAGER Work Phone: [facility] 10-26-2024 09:29-0400 Diastolic blood pressure 77 mm[Hg] Deepa Cassidy [employer] IN[employer]ASIVE MANAGER Work Phone: [facility] 10-26-2024 09:29-0400 Heart rate 93 /min Deepa Cassidy [employer] IN[employer]ASIVE MANAGER Work Phone: [facility] 10-26-2024 09:29-0400 Systolic blood pressure 123 mm[Hg] Deepa Cassidy [employer] - INVASIVE MANAGER Work Phone: [facility] 10-19-2024 15:08-0400 Body mass index (BMI) [Ratio] 24.01 kg/m2 Jeri Abilioenthal [employer] - INVASIVE MANAGER Work Phone: [facility] 10-19-2024 15:08-0400 Body temperature 98.71 [degF] Jeri Bridenthal [employer] - INVASIVE MANAGER Work Phone: [facility] 10-19-2024 15:08-0400 Body weight 45.18 kg Jeri Bridenthal [employer] - IN[employer]ASIVE MANAGER Work Phone: [facility] 10-19-2024 15:08-0400 Diastolic blood pressure 74 mm[Hg] Jeri Bridenthal [employer] INVASIVE MANAGER Work Phone: [facility] 10-19-2024 15:08-0400 Heart rate 98 /min Jeri Bridenthal [employer] INVASIVE MANAGER Work Phone: [facility] 10-19-2024 15:08-0400 Respiratory rate 16 /min Jeri Bridenthal [employer] INVASIVE MANAGER Work Phone: [facility] 10-19-2024 15:08-0400 SaO2% (BldA) [Mass fraction] 96 % Jeri Bridenthal [employer] - INVASIVE MANAGER Work Phone: [facility] 10-19-2024 15:08-0400 Systolic blood pressure 117 mm[Hg] Jeri Bridenthal [employer] - INVASIVE MANAGER Work Phone: [facility] 10-15-2024 09:46-0400 Body temperature 98.7 [degF] Jeri Bridenthal Work Phone: [facility] 10-15-2024 09:46-0400 Diastolic blood pressure 82 mm[Hg] Jeri Bridenthal Work Phone: [facility] 10-15-2024 09:46-0400 Heart rate 89 /min Jeri Bridenthal Work Phone: [facility] 10-15-2024 09:46-0400 Respiratory rate 18 /min Jeri Bridenthal Work Phone: [facility] 10-15-2024 09:46-0400 SaO2% (BldA) [Mass fraction] 100 % Jeri Bridenthal Work Phone: [facility] 10-15-2024 09:46-0400 Systolic blood pressure 129 mm[Hg] Jeri Bridenthal Work Phone: [facility] 10-15-2024 09:27-0400 Body mass index (BMI) [Ratio] 25.3 kg/m2 Jeri Bridenthal Work Phone: [facility] 10-15-2024 09:27-0400 Body weight 47.7 kg Jeri Bridenthal Work Phone: [facility] 10-15-2024 09:24-0400 Body height 137.16 cm Jeri Bridenthal Work Phone: [facility] 09-11-2024 14:26-0400 Body height 137.16 cm Jeri Bridenthal Work Phone: [facility] 09-11-2024 14:26-0400 Body mass index (BMI) [Ratio] 24.5 kg/m2 Jeri Bridenthal Work Phone: [facility] 09-11-2024 14:26-0400 Body weight 46.03 kg Jeri Bridenthal Work Phone: [facility] 08-30-2024 16:14-0400 Diastolic blood pressure 78 mm[Hg] Jeri Bridenthal [employer] IN[employer]ASIVE MANAGER Work Phone: [facility] 08-30-2024 16:14-0400 Heart rate 97 /min Jeri Bridenthal [employer] INVASIVE MANAGER Work Phone: [facility] 08-30-2024 16:14-0400 Systolic blood pressure 129 mm[Hg] Jeri Bridenthal [employer] IN[employer]ASIVE MANAGER Work Phone: [facility] 08-30-2024 15:33-0400 Body mass index (BMI) [Ratio] 23.87 kg/m2 Jeri Bridenthal [employer]ASIVE MANAGER Work Phone: [facility] 08-30-2024 15:33-0400 Body temperature 98.91 [degF] Jeri Bridenthal [employer] INVASIVE MANAGER Work Phone: [facility] 08-30-2024 15:33-0400 Body weight 44.91 kg Jeri Bridenthal [employer] INVASIVE MANAGER Work Phone: [facility] 08-30-2024 15:33-0400 Respiratory rate 24 /min Jeri Bridenthal [employer] INVASIVE MANAGER Work Phone: [facility] 08-30-2024 15:33-0400 SaO2% (BldA) [Mass fraction] 97 % Jeri Bridenthal [employer] INVASIVE MANAGER Work Phone: [facility] 05-31-2024 16:03-0400 Diastolic blood pressure 78 mm[Hg] Jeri Bridenthal [employer] IN[employer]ASIVE MANAGER Work Phone: [facility] 05-31-2024 16:03-0400 Heart rate 98 /min Jeri Bridenthal [employer] INVASIVE MANAGER Work Phone: [facility] 05-31-2024 16:03-0400 Systolic blood pressure 135 mm[Hg] Jeri Bridenthal [employer] INVASIVE MANAGER Work Phone: [facility] 05-31-2024 15:19-0400 Body mass index (BMI) [Ratio] 24.26 kg/m2 Jeri Bridenthal [employer] INVASIVE MANAGER Work Phone: [facility] 05-31-2024 15:19-0400 Body temperature 98.29 [degF] Jeri Bridenthal [employer] INVASIVE MANAGER Work Phone: [facility] 05-31-2024 15:19-0400 Body weight 45.63 kg Jeri Bridenthal [employer] INVASIVE MANAGER Work Phone: [facility] 05-31-2024 15:19-0400 Respiratory rate 18 /min Jeri Bridenthal [employer] INVASIVE MANAGER Work Phone: [facility] 05-31-2024 15:19-0400 SaO2% (BldA) [Mass fraction] 97 % Jeri Bridenthal [employer] INVASIVE MANAGER Work Phone: [facility] 03-14-2024 14:42-0500 Body height 137.2 cm Jeri Bridenthal [employer] INVASIVE MANAGER Work Phone: [facility] 03-14-2024 14:42-0500 Body mass index (BMI) [Ratio] 23.63 kg/m2 Jeri Bridenthal [employer] INVASIVE MANAGER Work Phone: [facility] 03-14-2024 14:42-0500 Body temperature 98.4 [degF] Jeri Bridenthal [employer] INVASIVE MANAGER Work Phone: [facility] 03-14-2024 14:42-0500 Body weight 44.45 kg Jeri Bridenthal [employer] - INVASIVE MANAGER Work Phone: [facility] 03-14-2024 14:42-0500 Diastolic blood pressure 79 mm[Hg] Jeri Bridenthal [employer] INVASIVE MANAGER Work Phone: [facility] 03-14-2024 14:42-0500 Heart rate 94 /min Jeri Bridenthal [employer] - INVASIVE MANAGER Work Phone: [facility] 03-14-2024 14:42-0500 Respiratory rate 20 /min Jeri Bridenthal [employer] - INVASIVE MANAGER Work Phone: [facility] 03-14-2024 14:42-0500 SaO2% (BldA) [Mass fraction] 95 % Jeri Bridenthal [employer] INVASIVE MANAGER Work Phone: [facility] 03-14-2024 14:42-0500 Systolic blood pressure 133 mm[Hg] Jeri Bridenthal [employer] INVASIVE MANAGER Work Phone: [facility] 01-11-2024 16:05-0500 Diastolic blood pressure 83 mm[Hg] Jeri Bridenthal [employer] INVASIVE MANAGER Work Phone: [facility] 01-11-2024 16:05-0500 Heart rate 86 /min Jeri Bridenthal [employer] - INVASIVE MANAGER Work Phone: [facility] 01-11-2024 16:05-0500 Systolic blood pressure 149 mm[Hg] Jeri Bridenthal [employer] INVASIVE MANAGER Work Phone: [facility] 01-11-2024 15:20-0500 Body mass index (BMI) [Ratio] 24.88 kg/m2 Jeri Bridenthal [employer] INVASIVE MANAGER Work Phone: [facility] 01-11-2024 15:20-0500 Body temperature 99.1 [degF] Jeri Bridenthal [employer] - INVASIVE MANAGER Work Phone: [facility] 01-11-2024 15:20-0500 Body weight 46.81 kg Jeri Bridenthal [employer] - INVASIVE MANAGER Work Phone: [facility] 01-11-2024 15:20-0500 Respiratory rate 24 /min Jeri Bridenthal [employer] INVASIVE MANAGER Work Phone: [facility] 01-11-2024 15:20-0500 SaO2% (BldA) [Mass fraction] 98 % Jeri Bridenthal [employer] INVASIVE MANAGER Work Phone: [facility] 12-09-2023 13:53-0400 Diastolic blood pressure 77 mm[Hg] Jeri Bridenthal [employer] - INVASIVE MANAGER Work Phone: [facility] 12-09-2023 13:53-0400 Heart rate 83 /min Jeri Bridenthal [employer] - INVASIVE MANAGER Work Phone: [facility] 12-09-2023 13:53-0400 Systolic blood pressure 119 mm[Hg] Jeri Bridenthal [employer] - INVASIVE MANAGER Work Phone: [facility] 12-09-2023 13:03-0400 Body mass index (BMI) [Ratio] 23.97 kg/m2 Jeri Bridenthal [employer] INVASIVE MANAGER Work Phone: [facility] 12-09-2023 13:03-0400 Body temperature 99.1 [degF] Jeri Bridenthal [employer] - INVASIVE MANAGER Work Phone: [facility] 12-09-2023 13:03-0400 Body weight 45.09 kg Jeri Bridenthal [employer] - INVASIVE MANAGER Work Phone: [facility] 12-09-2023 13:03-0400 Respiratory rate 20 /min Jeri Bridenthal [employer] - INVASIVE MANAGER Work Phone: [facility] 12-09-2023 13:03-0400 SaO2% (BldA) [Mass fraction] 95 % Jeri Bridenthal [employer] INVASIVE MANAGER Work Phone: [facility] 11-03-2023 15:22-0400 Body mass index (BMI) [Ratio] 23.82 kg/m2 Jeri Bridenthal [employer] INVASIVE MANAGER Work Phone: [facility] 11-03-2023 15:22-0400 Body temperature 99.1 [degF] Jeri Bridenthal [employer] - INVASIVE MANAGER Work Phone: [facility] 11-03-2023 15:22-0400 Body weight 44.81 kg Jeri Bridenthal [employer] - INVASIVE MANAGER Work Phone: [facility] 11-03-2023 15:22-0400 Diastolic blood pressure 92 mm[Hg] Jeri Bridenthal [employer] - INVASIVE MANAGER Work Phone: [facility] 11-03-2023 15:22-0400 Heart rate 89 /min Jeri Bridenthal [employer] INVASIVE MANAGER Work Phone: [facility] 11-03-2023 15:22-0400 Respiratory rate 18 /min Jeri Bridenthal [employer] INVASIVE MANAGER Work Phone: [facility] 11-03-2023 15:22-0400 SaO2% (BldA) [Mass fraction] 98 % Jeri Bridenthal [employer] INVASIVE MANAGER Work Phone: [facility] 11-03-2023 15:22-0400 Systolic blood pressure 179 mm[Hg] Jrei Bridenthal [employer] - INVASIVE MANAGER Work Phone: [facility] 10-26-2023 14:27-0400 Body height 137.2 cm Jaison Guo MD Work Phone: [facility] 10-26-2023 14:27-0400 Body mass index (BMI) [Ratio] 23.63 kg/m2 Jaison Guo MD Work Phone: [facility] 10-26-2023 14:27-0400 Body weight 44.45 kg Jaison Guo MD Work Phone: [facility] 10-06-2023 15:51-0400 Diastolic blood pressure 96 mm[Hg] Jeri Bridenthal [employer] IN[employer]ASIVE MANAGER Work Phone: [facility] 10-06-2023 15:51-0400 Heart rate 80 /min Jeri Bridenthal [employer] - INVASIVE MANAGER Work Phone: [facility] 10-06-2023 15:51-0400 Systolic blood pressure 180 mm[Hg] Jeri Bridenthal [employer] - INVASIVE MANAGER Work Phone: [facility] 10-06-2023 15:18-0400 Body mass index (BMI) [Ratio] 23.19 kg/m2 Jeri Bridenthal [employer] INVASIVE MANAGER Work Phone: [facility] 10-06-2023 15:18-0400 Body weight 43.64 kg Jeri Bridenthal [employer] - INVASIVE MANAGER Work Phone: [facility] 10-06-2023 15:18-0400 Respiratory rate 24 /min Jeri Bridenthal [employer] INVASIVE MANAGER Work Phone: [facility] 10-06-2023 15:18-0400 SaO2% (BldA) [Mass fraction] 98 % Jeri Bridenthal [employer] INVASIVE MANAGER Work Phone: [facility] 09-09-2023 15:28-0400 Body mass index (BMI) [Ratio] 23.63 kg/m2 Jeri Bridenthal [employer] INVASIVE MANAGER Work Phone: [facility] 09-09-2023 15:28-0400 Body temperature 96.8 [degF] Jeri Bridenthal [employer] - INVASIVE MANAGER Work Phone: [facility] 09-09-2023 15:28-0400 Body weight 44.45 kg Jeri Bridenthal [employer] - INVASIVE MANAGER Work Phone: [facility] 09-09-2023 15:28-0400 Diastolic blood pressure 87 mm[Hg] Jeri Bridenthal [employer] - INVASIVE MANAGER Work Phone: [facility] 09-09-2023 15:28-0400 Heart rate 98 /min Jeri Bridenthal [employer] - INVASIVE MANAGER Work Phone: [facility] 09-09-2023 15:28-0400 Respiratory rate 26 /min Jeri Bridenthal [employer] - INVASIVE MANAGER Work Phone: [facility] 09-09-2023 15:28-0400 SaO2% (BldA) [Mass fraction] 99 % Jeri Bridenthal [employer] - INVASIVE MANAGER Work Phone: [facility] 09-09-2023 15:28-0400 Systolic blood pressure 165 mm[Hg] Jeri Bridenthal [employer] - INVASIVE MANAGER Work Phone: [facility] 08-12-2023 15:02-0400 Body mass index (BMI) [Ratio] 23.87 kg/m2 Sbh Schedule [facility] 08-12-2023 15:02-0400 Body weight 44.91 kg Sbh Schedule [facility] 08-12-2023 15:02-0400 Diastolic blood pressure 88 mm[Hg] Sbh Schedule [facility] 08-12-2023 15:02-0400 Heart rate 97 /min Sbh Schedule [facility] 08-12-2023 15:02-0400 SaO2% (BldA) [Mass fraction] 98 % Sbh Schedule [facility] 08-12-2023 15:02-0400 Systolic blood pressure 168 mm[Hg] Sbh Schedule [facility] 08-12-2023 11:01-0400 Body mass index (BMI) [Ratio] 23.77 kg/m2 Jeri Bridenthal [employer] INVASIVE MANAGER Work Phone: [facility] 08-12-2023 11:01-0400 Body temperature 98.6 [degF] Jeri Bridenthal [employer] - INVASIVE MANAGER Work Phone: [facility] 08-12-2023 11:01-0400 Body weight 44.73 kg Jeri Bridenthal [employer] - INVASIVE MANAGER Work Phone: [facility] 08-12-2023 11:01-0400 Diastolic blood pressure 91 mm[Hg] Jeri Bridenthal [employer] - INVASIVE MANAGER Work Phone: [facility] 08-12-2023 11:01-0400 Heart rate 106 /min Jeri Bridenthal [employer] - INVASIVE MANAGER Work Phone: [facility] 08-12-2023 11:01-0400 Respiratory rate 24 /min Jeri Bridenthal [employer] - INVASIVE MANAGER Work Phone: [facility] 08-12-2023 11:01-0400 SaO2% (BldA) [Mass fraction] 98 % Jeri Bridenthal [employer] - INVASIVE MANAGER Work Phone: [facility] 08-12-2023 11:01-0400 Systolic blood pressure 179 mm[Hg] Jeri Bridenthal [employer] - INVASIVE MANAGER Work Phone: [facility] 07-28-2023 15:58-0400 Diastolic blood pressure 83 mm[Hg] Jeri Bridenthal [employer] - INVASIVE MANAGER Work Phone: [facility] 07-28-2023 15:58-0400 Systolic blood pressure 176 mm[Hg] Jeri Bridenthal [employer] - INVASIVE MANAGER Work Phone: [facility] 07-28-2023 15:19-0400 Body mass index (BMI) [Ratio] 24.21 kg/m2 Jeri Bridenthal [employer] - INVASIVE MANAGER Work Phone: [facility] 07-28-2023 15:19-0400 Body temperature 98.29 [degF] Jeri Bridenthal [employer] - INVASIVE MANAGER Work Phone: [facility] 07-28-2023 15:19-0400 Body weight 45.54 kg Jeri Bridenthal [employer] - INVASIVE MANAGER Work Phone: [facility] 07-28-2023 15:19-0400 Heart rate 103 /min Jeri Bridenthal [employer] - INVASIVE MANAGER Work Phone: [facility] 07-28-2023 15:19-0400 Respiratory rate 18 /min Jeri Bridenthal [employer] - INVASIVE MANAGER Work Phone: [facility] 07-28-2023 15:19-0400 SaO2% (BldA) [Mass fraction] 94 % Jeri Bridenthal [employer] - INVASIVE MANAGER Work Phone: [facility] 05-20-2023 14:48-0400 Body mass index (BMI) [Ratio] 24.3 kg/m2 Jeri Bridenthal [employer] - INVASIVE MANAGER Work Phone: [facility] 05-20-2023 14:48-0400 Body temperature 99.1 [degF] Jeri Bridenthal [employer] - INVASIVE MANAGER Work Phone: [facility] 05-20-2023 14:48-0400 Body weight 45.72 kg Jeri Bridenthal [employer] - INVASIVE MANAGER Work Phone: [facility] 05-20-2023 14:48-0400 Diastolic blood pressure 82 mm[Hg] Jeri Bridenthal [employer] - INVASIVE MANAGER Work Phone: [facility] 05-20-2023 14:48-0400 Heart rate 86 /min Jeri Bridenthal [employer] - INVASIVE MANAGER Work Phone: [facility] 05-20-2023 14:48-0400 Respiratory rate 18 /min Jeri Bridenthal [employer] - INVASIVE MANAGER Work Phone: [facility] 05-20-2023 14:48-0400 SaO2% (BldA) [Mass fraction] 96 % Jeri Bridenthal [employer] - INVASIVE MANAGER Work Phone: [facility] 05-20-2023 14:48-0400 Systolic blood pressure 138 mm[Hg] Jeri Bridenthal [employer] - INVASIVE MANAGER Work Phone: [facility] 04-29-2023 15:01-0400 Body mass index (BMI) [Ratio] 24.59 kg/m2 Jeri Abilioenthal [employer] - INVASIVE MANAGER Work Phone: [facility] 04-29-2023 15:01-0400 Body temperature 98.91 [degF] Jeri Bridenthal [employer] - INVASIVE MANAGER Work Phone: [facility] 04-29-2023 15:01-0400 Body weight 46.27 kg Jeri Bridenthal [employer] - INVASIVE MANAGER Work Phone: [facility] 04-29-2023 15:01-0400 Diastolic blood pressure 73 mm[Hg] Jeri Bridenthal [employer] - INVASIVE MANAGER Work Phone: [facility] 04-29-2023 15:01-0400 Heart rate 90 /min Jeri Bridenthal [employer] - INVASIVE MANAGER Work Phone: [facility] 04-29-2023 15:01-0400 Respiratory rate 24 /min Jeri Bridenthal [employer] - INVASIVE MANAGER Work Phone: [facility] 04-29-2023 15:01-0400 SaO2% (BldA) [Mass fraction] 96 % Jeri Abilioenthal [employer] - INVASIVE MANAGER Work Phone: [facility] 04-29-2023 15:01-0400 Systolic blood pressure 120 mm[Hg] Jeri Abilioenthal [employer] - INVASIVE MANAGER Work Phone: [facility] 03-31-2023 15:22-0500 Body height 137.2 cm Jeri Bridenthal [employer] - INVASIVE MANAGER Work Phone: [facility] 03-31-2023 15:22-0500 Body mass index (BMI) [Ratio] 24.35 kg/m2 Jeri Bridenthal [employer] - INVASIVE MANAGER Work Phone: [facility] 03-31-2023 15:22-0500 Body temperature 98.91 [degF] Jeri Bridenthal [employer] - INVASIVE MANAGER Work Phone: [facility] 03-31-2023 15:22-0500 Body weight 45.81 kg Jeri Bridenthal [employer] - INVASIVE MANAGER Work Phone: [facility] 03-31-2023 15:22-0500 Diastolic blood pressure 71 mm[Hg] Jeri Bridenthal [employer] - INVASIVE MANAGER Work Phone: [facility] 03-31-2023 15:22-0500 Heart rate 87 /min Jeri Bridenthal [employer] - INVASIVE MANAGER Work Phone: [facility] 03-31-2023 15:22-0500 SaO2% (BldA) [Mass fraction] 97 % Jeri Bridenthal [employer] - INVASIVE MANAGER Work Phone: [facility] 03-31-2023 15:22-0500 Systolic blood pressure 119 mm[Hg] Jeri Bridenthal [employer] - INVASIVE MANAGER Work Phone: [facility] 03-04-2023 09:51-0500 Diastolic blood pressure 79 mm[Hg] Jeri Bridenthal [employer] - INVASIVE MANAGER Work Phone: [facility] 03-04-2023 09:51-0500 Systolic blood pressure 124 mm[Hg] Jeri Bridenthal [employer] - INVASIVE MANAGER Work Phone: [facility] 03-04-2023 08:58-0500 Body height 137.2 cm Jeri Bridenthal [employer] - INVASIVE MANAGER Work Phone: [facility] 03-04-2023 08:58-0500 Body mass index (BMI) [Ratio] 24.06 kg/m2 Jeri Bridenthal [employer] - INVASIVE MANAGER Work Phone: [facility] 03-04-2023 08:58-0500 Body temperature 98.91 [degF] Jeri Bridenthal [employer] - INVASIVE MANAGER Work Phone: [facility] 03-04-2023 08:58-0500 Body weight 45.27 kg Jeri Bridenthal [employer] - INVASIVE MANAGER Work Phone: [facility] 03-04-2023 08:58-0500 Heart rate 102 /min Jeri Trinidad [employer] - INVASIVE MANAGER Work Phone: [facility] 03-04-2023 08:58-0500 Respiratory rate 24 /min Jerikalyan Laguerreenthal [employer] - INVASIVE MANAGER Work Phone: [facility] 03-04-2023 08:58-0500 SaO2% (BldA) [Mass fraction] 97 % Jeri Trinidad [employer] - INVASIVE MANAGER Work Phone: [facility] 02-15-2023 14:22-0500 Body height 137.[address] Rayo Cantu Work Phone: [facility] 02-15-2023 14:22-0500 Body mass index (BMI) [Ratio] 24.1 kg/m2 Dr. Rayo Cantu Work Phone: [facility] 02-15-2023 14:22-0500 Body temperature 97.2 [degF] Dr. Rayo Cantu Work Phone: [facility] 02-15-2023 14:22-0500 Body weight 45.[address] Rayo Cantu Work Phone: [facility] 02-15-2023 14:22-0500 Diastolic blood pressure 92 mm[Hg] Dr. Rayo Cantu Work Phone: [facility] 02-15-2023 14:22-0500 Heart rate 106 /min Dr. Rayo Cantu Work Phone: [facility] 02-15-2023 14:22-0500 Respiratory rate 16 /min Dr. Rayo Cantu Work Phone: [facility] 02-15-2023 14:22-0500 SaO2% (BldA) [Mass fraction] 100 % Dr. Rayo Cantu Work Phone: [facility] 02-15-2023 14:22-0500 Systolic blood pressure 175 mm[Hg] Dr. Rayo Cantu Work Phone: [facility] 02-03-2023 15:42-0500 Diastolic blood pressure 83 mm[Hg] Jeri Bridenthal [employer] - INVASIVE MANAGER Work Phone: [facility] 02-03-2023 15:42-0500 Systolic blood pressure 150 mm[Hg] Jeri Bridenthal [employer] - INVASIVE MANAGER Work Phone: [facility] 02-03-2023 15:07-0500 Body mass index (BMI) [Ratio] 24.11 kg/m2 Jeri Bridenthal [employer] - INVASIVE MANAGER Work Phone: [facility] 02-03-2023 15:07-0500 Body temperature 98.6 [degF] Jeri Bridenthal [employer] - INVASIVE MANAGER Work Phone: [facility] 02-03-2023 15:07-0500 Body weight 45.36 kg Jeri Bridenthal [employer] - INVASIVE MANAGER Work Phone: [facility] 02-03-2023 15:07-0500 Heart rate 89 /min Jeri Bridenthal [employer] - INVASIVE MANAGER Work Phone: [facility] 02-03-2023 15:07-0500 Respiratory rate 18 /min Jeri Bridenthal [employer] - INVASIVE MANAGER Work Phone: [facility] 02-03-2023 15:07-0500 SaO2% (BldA) [Mass fraction] 98 % Jeri Bridenthal [employer] - INVASIVE MANAGER Work Phone: [facility] 01-06-2023 15:02-0500 Body mass index (BMI) [Ratio] 23.15 kg/m2 Jeri Bridenthal [employer] - INVASIVE MANAGER Work Phone: [facility] 01-06-2023 15:02-0500 Body temperature 98.6 [degF] Jeri Bridenthal [employer] - INVASIVE MANAGER Work Phone: [facility] 01-06-2023 15:02-0500 Body weight 43.55 kg Jeri Bridenthal [employer] - INVASIVE MANAGER Work Phone: [facility] 01-06-2023 15:02-0500 Diastolic blood pressure 82 mm[Hg] Jeri Bridenthal [employer] - INVASIVE MANAGER Work Phone: [facility] 01-06-2023 15:02-0500 Heart rate 92 /min Jeri Bridenthal [employer] - INVASIVE MANAGER Work Phone: [facility] 01-06-2023 15:02-0500 Respiratory rate 20 /min Jeri Bridenthal [employer] - INVASIVE MANAGER Work Phone: [facility] 01-06-2023 15:02-0500 SaO2% (BldA) [Mass fraction] 98 % Jeri Bridenthal [employer] - INVASIVE MANAGER Work Phone: [facility] 01-06-2023 15:02-0500 Systolic blood pressure 176 mm[Hg] Jeri Bridenthal [employer] - INVASIVE MANAGER Work Phone: [facility] 11-24-2022 09:53-0400 Diastolic blood pressure 93 mm[Hg] Jeri Bridenthal [employer] - INVASIVE MANAGER Work Phone: [facility] 11-24-2022 09:53-0400 Heart rate 57 /min Jeri Bridenthal [employer] - INVASIVE MANAGER Work Phone: [facility] 11-24-2022 09:53-0400 Systolic blood pressure 166 mm[Hg] Jeri Bridenthal [employer] - INVASIVE MANAGER Work Phone: [facility] 11-24-2022 08:43-0400 Body height 137.2 cm Jeri Bridenthal [employer] - INVASIVE MANAGER Work Phone: [facility] 11-24-2022 08:43-0400 Body mass index (BMI) [Ratio] 23.48 kg/m2 Jeri Bridenthal [employer] - INVASIVE MANAGER Work Phone: [facility] 11-24-2022 08:43-0400 Body temperature 98.4 [degF] Jeri Bridenthal [employer] - INVASIVE MANAGER Work Phone: [facility] 11-24-2022 08:43-0400 Body weight 44.18 kg Jeri Abilioenthal [employer] - INVASIVE MANAGER Work Phone: [facility] 11-24-2022 08:43-0400 Respiratory rate 20 /min Jeri Bridenthal [employer] - INVASIVE MANAGER Work Phone: [facility] 11-24-2022 08:43-0400 SaO2% (BldA) [Mass fraction] 98 % Jeri Bridenthal [employer] - INVASIVE MANAGER Work Phone: [facility] 11-18-2022 15:04-0400 Body weight 45 kg Sabrina Tineo MD Work Phone: [facility] 11-18-2022 15:04-0400 Diastolic blood pressure 99 mm[Hg] Sabrina Tineo MD Work Phone: [facility] 11-18-2022 15:04-0400 Heart rate 108 /min Sabrina Tineo MD Work Phone: [facility] 11-18-2022 15:04-0400 Systolic blood pressure 186 mm[Hg] Sabrina Tineo MD Work Phone: [facility] 06-22-2022 14:03-0400 Body height 137.16 cm HASHER MACHINE OPERATOR-C Solis Shell HASHER MACHINE OPERATOR Work Phone: [facility] 05-21-2022 15:50-0400 Body temperature 97.3 [degF] HASHER MACHINE OPERATOR-C Tea Ruiz HASHER MACHINE OPERATOR Work Phone: [facility] 05-21-2022 15:50-0400 Diastolic blood pressure 73 mm[Hg] HASHER MACHINE OPERATOR-C Tea Ruiz HASHER MACHINE OPERATOR Work Phone: [facility] 05-21-2022 15:50-0400 Heart rate 75 /min HASHER MACHINE OPERATOR-C Tea Ruiz HASHER MACHINE OPERATOR Work Phone: [facility] 05-21-2022 15:50-0400 Respiratory rate 16 /min HASHER MACHINE OPERATOR-C Tea Ruiz HASHER MACHINE OPERATOR Work Phone: [facility] 05-21-2022 15:50-0400 Systolic blood pressure 152 mm[Hg] HASHER MACHINE OPERATOR-C Tea Ruiz HASHER MACHINE OPERATOR Work Phone: [facility] 05-21-2022 14:40-0400 Body height 137.16 cm HASHER MACHINE OPERATOR-C Tea Ruiz HASHER MACHINE OPERATOR Work Phone: 5(359)[phone] [place] [id number] 05-21-2022 14:40-0400 Body mass index (BMI) [Ratio] 23.6 kg/m2 HASHER MACHINE OPERATOR-C Tea Ruiz HASHER MACHINE OPERATOR Work Phone: 9(272)217-696716 [place] [id number] 05-21-2022 14:40-0400 Body weight 44.45 kg HASHER MACHINE OPERATOR-C Tea Ruiz HASHER MACHINE OPERATOR Work Phone: 0(531)[phone] [place] [id number] 05-21-2022 14:40-0400 SaO2% (BldA) [Mass fraction] 100 % HASHER MACHINE OPERATOR-C Tea Ruiz HASHER MACHINE OPERATOR Work Phone: 2(781)060-852116 [place] [id number] 05-20-2022 14:27-0400 Body temperature 97.2 [degF] HASHER MACHINE OPERATOR-C Tea Ruiz HASHER MACHINE OPERATOR Work Phone: 0(213)045-587016 [place] [id number] 05-20-2022 14:27-0400 Diastolic blood pressure 70 mm[Hg] HASHER MACHINE OPERATOR-C Tea Ruiz HASHER MACHINE OPERATOR Work Phone: 7(460)341-437316 [place] [id number] 05-20-2022 14:27-0400 Heart rate 79 /min HASHER MACHINE OPERATOR-C Tea Ruiz HASHER MACHINE OPERATOR Work Phone: 8(509)026-607516 [place] [id number] 05-20-2022 14:27-0400 Respiratory rate 16 /min HASHER MACHINE OPERATOR-C Tea Ruiz HASHER MACHINE OPERATOR Work Phone: 8(262)461-355916 [place] [id number] 05-20-2022 14:27-0400 SaO2% (BldA) [Mass fraction] 99 % HASHER MACHINE OPERATOR-C Tea Ruiz HASHER MACHINE OPERATOR Work Phone: 3(373)994-819916 [place] [id number] 05-20-2022 14:27-0400 Systolic blood pressure 133 mm[Hg] HASHER MACHINE OPERATOR-C Tea Ruiz HASHER MACHINE OPERATOR Work Phone: 3(108)[phone] [place] [id number] 05-19-2022 14:32-0400 Body temperature 96.8 [degF] HASHER MACHINE OPERATOR-C Tea Ruiz HASHER MACHINE OPERATOR Work Phone: [facility] 05-19-2022 14:32-0400 Diastolic blood pressure 71 mm[Hg] HASHER MACHINE OPERATOR-C Tea Ruiz HASHER MACHINE OPERATOR Work Phone: [facility] 05-19-2022 14:32-0400 Heart rate 82 /min HASHER MACHINE OPERATOR-C Tea Ruiz HASHER MACHINE OPERATOR Work Phone: [facility] 05-19-2022 14:32-0400 Respiratory rate 16 /min HASHER MACHINE OPERATOR-C Tea Ruiz HASHER MACHINE OPERATOR Work Phone: [facility] 05-19-2022 14:32-0400 SaO2% (BldA) [Mass fraction] 100 % HASHER MACHINE OPERATOR-C Tea Ruiz HASHER MACHINE OPERATOR Work Phone: [facility] 05-19-2022 14:32-0400 Systolic blood pressure 121 mm[Hg] HASHER MACHINE OPERATOR-C Tea Ruiz HASHER MACHINE OPERATOR Work Phone: [facility] 05-18-2022 14:47-0400 Body temperature 97.4 [degF] HASHER MACHINE OPERATOR-C Tea Ruiz HASHER MACHINE OPERATOR Work Phone: [facility] 05-18-2022 14:47-0400 Diastolic blood pressure 60 mm[Hg] HASHER MACHINE OPERATOR-C Tea Ruiz HASHER MACHINE OPERATOR Work Phone: [facility] 05-18-2022 14:47-0400 Heart rate 75 /min HASHER MACHINE OPERATOR-C Tea Ruiz HASHER MACHINE OPERATOR Work Phone: [facility] 05-18-2022 14:47-0400 Respiratory rate 16 /min HASHER MACHINE OPERATOR-C Tea Ruiz HASHER MACHINE OPERATOR Work Phone: [facility] 05-18-2022 14:47-0400 SaO2% (BldA) [Mass fraction] 95 % HASHER MACHINE OPERATOR-C Tea Ruiz HASHER MACHINE OPERATOR Work Phone: [facility] 05-18-2022 14:47-0400 Systolic blood pressure 135 mm[Hg] HASHER MACHINE OPERATOR-C Tea Ruiz HASHER MACHINE OPERATOR Work Phone: 2(521)773-934216 [place] [id number] 05-18-2022 13:49-0400 Body height 137.16 cm HASHER MACHINE OPERATOR-C Tea Ruiz HASHER MACHINE OPERATOR Work Phone: 5(587)982-696416 [place] [id number] 05-15-2022 12:34-0400 Diastolic blood pressure 67 mm[Hg] HASHER MACHINE OPERATOR-C Tea Ruiz HASHER MACHINE OPERATOR Work Phone: 6(940)944-621839 [place] [address] 05-15-2022 12:34-0400 Heart rate 77 /min HASHER MACHINE OPERATOR-C Tea Ruiz HASHER MACHINE OPERATOR Work Phone: 6(488)598-984039 [place] [address] 05-15-2022 12:34-0400 SaO2% (BldA) [Mass fraction] 100 % HASHER MACHINE OPERATOR-C Tea Ruiz HASHER MACHINE OPERATOR Work Phone: 4(166)349-532739 [place] [address] 05-15-2022 12:34-0400 Systolic blood pressure 140 mm[Hg] HASHER MACHINE OPERATOR-C Tea Ruiz HASHER MACHINE OPERATOR Work Phone: 7(827)361-182039 [place] [address] 05-15-2022 11:38-0400 Body height 137.16 cm HASHER MACHINE OPERATOR-C Tea Ruiz HASHER MACHINE OPERATOR Work Phone: 5(912)062-319839 [place] [address] 05-15-2022 11:38-0400 Body mass index (BMI) [Ratio] 23.6 kg/m2 HASHER MACHINE OPERATOR-C Tea Ruiz HASHER MACHINE OPERATOR Work Phone: 8(663)646-221539 [place] [address] 05-15-2022 11:38-0400 Body temperature 96.7 [degF] HASHER MACHINE OPERATOR-C Tea Ruiz HASHER MACHINE OPERATOR Work Phone: 8(701)790-702016 [place] [id number] 05-15-2022 11:38-0400 Body weight 44.45 kg HASHER MACHINE OPERATOR-C Tea Ruiz HASHER MACHINE OPERATOR Work Phone: 7(077)662-051339 [place] [address] 05-15-2022 11:38-0400 Respiratory rate 16 /min HASHER MACHINE OPERATOR-C Tea Ruiz HASHER MACHINE OPERATOR Work Phone: 2(891)603-944916 [place] [id number] 05-14-2022 13:33-0400 Body temperature 97.8 [degF] HASHER MACHINE OPERATOR-C Tea Ruiz HASHER MACHINE OPERATOR Work Phone: 8(453)234-800316 [place] [id number] 05-14-2022 13:33-0400 Diastolic blood pressure 77 mm[Hg] HASHER MACHINE OPERATOR-C Tea Ruiz HASHER MACHINE OPERATOR Work Phone: [facility] 05-14-2022 13:33-0400 Heart rate 78 /min HASHER MACHINE OPERATOR-C Tea Ruiz HASHER MACHINE OPERATOR Work Phone: [facility] 05-14-2022 13:33-0400 Respiratory rate 14 /min HASHER MACHINE OPERATOR-C Tea Ruiz HASHER MACHINE OPERATOR Work Phone: [facility] 05-14-2022 13:33-0400 SaO2% (BldA) [Mass fraction] 98 % HASHER MACHINE OPERATOR-C Tea Ruiz HASHER MACHINE OPERATOR Work Phone: [facility] 05-14-2022 13:33-0400 Systolic blood pressure 159 mm[Hg] HASHER MACHINE OPERATOR-C Tea Ruiz HASHER MACHINE OPERATOR Work Phone: [facility] 05-14-2022 12:57-0400 Body height 137.16 cm HASHER MACHINE OPERATOR-C Tea Ruiz HASHER MACHINE OPERATOR Work Phone: [facility] 05-14-2022 12:57-0400 Body mass index (BMI) [Ratio] 23.6 kg/m2 HASHER MACHINE OPERATOR-C Tea Ruiz HASHER MACHINE OPERATOR Work Phone: 3(856)634-034616 [place] [id number] 05-14-2022 12:57-0400 Body temperature 97.5 [degF] HASHER MACHINE OPERATOR-C Tea Ruiz HASHER MACHINE OPERATOR Work Phone: [facility] 05-14-2022 12:57-0400 Body weight 44.45 kg HASHER MACHINE OPERATOR-C Tea Ruiz HASHER MACHINE OPERATOR Work Phone: [facility] 05-14-2022 12:57-0400 Diastolic blood pressure 81 mm[Hg] HASHER MACHINE OPERATOR-C Tea Ruiz HASHER MACHINE OPERATOR Work Phone: [facility] 05-14-2022 12:57-0400 Heart rate 96 /min HASHER MACHINE OPERATOR-C Tea Ruiz HASHER MACHINE OPERATOR Work Phone: [facility] 05-14-2022 12:57-0400 Respiratory rate 15 /min HASHER MACHINE OPERATOR-C Tea Ruiz HASHER MACHINE OPERATOR Work Phone: [facility] 05-14-2022 12:57-0400 SaO2% (BldA) [Mass fraction] 98 % HASHER MACHINE OPERATOR-C Tea Ruiz HASHER MACHINE OPERATOR Work Phone: [facility] 05-14-2022 12:57-0400 Systolic blood pressure 147 mm[Hg] HASHER MACHINE OPERATOR-C Tea Ruiz HASHER MACHINE OPERATOR Work Phone: [facility] 05-14-2022 10:19-0400 Body mass index (BMI) [Ratio] 23.6 kg/m2 HASHER MACHINE OPERATOR-C Tea Ruiz HASHER MACHINE OPERATOR Work Phone: [facility] 05-14-2022 10:19-0400 Body temperature 96.7 [degF] HASHER MACHINE OPERATOR-C Tea Ruiz HASHER MACHINE OPERATOR Work Phone: [facility] 05-14-2022 10:19-0400 Body weight 44.45 kg HASHER MACHINE OPERATOR-C Tea Ruiz HASHER MACHINE OPERATOR Work Phone: [facility] 05-14-2022 10:19-0400 Diastolic blood pressure 108 mm[Hg] HASHER MACHINE OPERATOR-C Tea Ruiz HASHER MACHINE OPERATOR Work Phone: [facility] 05-14-2022 10:19-0400 Heart rate 113 /min HASHER MACHINE OPERATOR-C Tea Ruiz HASHER MACHINE OPERATOR Work Phone: [facility] 05-14-2022 10:19-0400 Respiratory rate 18 /min HASHER MACHINE OPERATOR-C Tea Ruiz HASHER MACHINE OPERATOR Work Phone: [facility] 05-14-2022 10:19-0400 SaO2% (BldA) [Mass fraction] 98 % HASHER MACHINE OPERATOR-C Tea Ruiz HASHER MACHINE OPERATOR Work Phone: [facility] 05-14-2022 10:19-0400 Systolic blood pressure 124 mm[Hg] HASHER MACHINE OPERATOR-C Tea Ruiz HASHER MACHINE OPERATOR Work Phone: [facility] 05-13-2022 21:54-0400 Body height 137.[address] DAYTON BRIONES MD [facility] 05-13-2022 21:54-0400 Body temperature 98.24 [degF] DR DAYTON BRIONES MD [facility] 05-13-2022 21:54-0400 Body weight 44.[address] DAYTON BRIONES MD [facility] 05-13-2022 21:54-0400 Diastolic Blood Pressure Non-Invasive [address] DAYTON BRIONES MD [facility] 05-13-2022 21:54-0400 Heart rate 75 /min DR DAYTON BRIONES MD [facility] 05-13-2022 21:54-0400 Respiratory rate 20 /min DR DAYTON BRIONES MD [facility] 05-13-2022 21:54-0400 Systolic Blood Pressure Non-Invasive [address] DAYTON BRIONES MD [facility] 05-13-2022 13:42-0400 Body temperature 97.1 [degF] HASHER MACHINE OPERATOR-C Tea Ruiz HASHER MACHINE OPERATOR Work Phone: [facility] 05-13-2022 13:42-0400 Diastolic blood pressure 78 mm[Hg] HASHER MACHINE OPERATOR-C Tea Ruiz HASHER MACHINE OPERATOR Work Phone: [facility] 05-13-2022 13:42-0400 Heart rate 81 /min HASHER MACHINE OPERATOR-C Tea Ruiz HASHER MACHINE OPERATOR Work Phone: [facility] 05-13-2022 13:42-0400 Respiratory rate 16 /min HASHER MACHINE OPERATOR-C Tea Ruiz HASHER MACHINE OPERATOR Work Phone: [facility] 05-13-2022 13:42-0400 SaO2% (BldA) [Mass fraction] 100 % HASHER MACHINE OPERATOR-C Tea Ruiz HASHER MACHINE OPERATOR Work Phone: [facility] 05-13-2022 13:42-0400 Systolic blood pressure 144 mm[Hg] HASHER MACHINE OPERATOR-C Tea Ruiz HASHER MACHINE OPERATOR Work Phone: [facility] 05-12-2022 12:11-0400 Body temperature 98.1 [degF] HASHER MACHINE OPERATOR-C Tea Ruiz HASHER MACHINE OPERATOR Work Phone: 6(024)212-208416 [place] [id number] 05-12-2022 12:11-0400 Diastolic blood pressure 72 mm[Hg] HASHER MACHINE OPERATOR-C Tea Ruiz HASHER MACHINE OPERATOR Work Phone: [facility] 05-12-2022 12:11-0400 Heart rate 81 /min HASHER MACHINE OPERATOR-C Tea Ruiz HASHER MACHINE OPERATOR Work Phone: 0(314)011-648016 [place] [id number] 05-12-2022 12:11-0400 Respiratory rate 16 /min HASHER MACHINE OPERATOR-C Tea Ruiz HASHER MACHINE OPERATOR Work Phone: 2(177)407-258083 [address] 05-12-2022 12:11-0400 SaO2% (BldA) [Mass fraction] 100 % HASHER MACHINE OPERATOR-C Tea Ruiz HASHER MACHINE OPERATOR Work Phone: 1(936)264-051616 [place] [id number] 05-12-2022 12:11-0400 Systolic blood pressure 160 mm[Hg] HASHER MACHINE OPERATOR-C Tea Ruiz HASHER MACHINE OPERATOR Work Phone: 7(757)421-209016 [place] [id number] 05-12-2022 10:56-0400 Body mass index (BMI) [Ratio] 23.3 kg/m2 HASHER MACHINE OPERATOR-C Tea Ruiz HASHER MACHINE OPERATOR Work Phone: 3(865)189-914816 [place] [id number] 05-12-2022 10:56-0400 Body weight 43.99 kg HASHER MACHINE OPERATOR-C Tea Ruiz HASHER MACHINE OPERATOR Work Phone: 2(266)122-599716 [place] [id number] 05-11-2022 11:51-0400 Body temperature 97.1 [degF] HASHER MACHINE OPERATOR-C Tea Ruiz HASHER MACHINE OPERATOR Work Phone: 3(555)903-818916 [place] [id number] 05-11-2022 11:51-0400 Diastolic blood pressure 77 mm[Hg] HASHER MACHINE OPERATOR-C Tea Ruiz HASHER MACHINE OPERATOR Work Phone: 9(391)183-801216 [place] [id number] 05-11-2022 11:51-0400 Heart rate 79 /min HASHER MACHINE OPERATOR-C Eta Ruiz HASHER MACHINE OPERATOR Work Phone: 8(624)021-345216 [place] [id number] 05-11-2022 11:51-0400 Respiratory rate 14 /min HASHER MACHINE OPERATOR-C Tea Ruiz HASHER MACHINE OPERATOR Work Phone: 1(693)042-628416 [place] [id number] 05-11-2022 11:51-0400 SaO2% (BldA) [Mass fraction] 99 % HASHER MACHINE OPERATOR-C Tea Ruiz HASHER MACHINE OPERATOR Work Phone: [facility] 05-11-2022 11:51-0400 Systolic blood pressure 144 mm[Hg] HASHER MACHINE OPERATOR-C Tea Ruiz HASHER MACHINE OPERATOR Work Phone: 6(564)659-784416 [place] [id number] 05-11-2022 10:54-0400 Body mass index (BMI) [Ratio] 23.3 kg/m2 HASHER MACHINE OPERATOR-C Tea Ruiz HASHER MACHINE OPERATOR Work Phone: 4(863)574-174216 [place] [id number] 05-11-2022 10:54-0400 Body weight 43.99 kg HASHER MACHINE OPERATOR-C Tea Ruiz HASHER MACHINE OPERATOR Work Phone: 4(472)268-165139 [place] [address] 05-10-2022 10:39-0400 Body temperature 98.1 [degF] HASHER MACHINE OPERATOR-C Tea Ruiz HASHER MACHINE OPERATOR Work Phone: 2(935)733-574816 [place] [id number] 05-10-2022 10:39-0400 Diastolic blood pressure 81 mm[Hg] HASHER MACHINE OPERATOR-C Tea Ruiz HASHER MACHINE OPERATOR Work Phone: 3(800)114-333016 [place] [id number] 05-10-2022 10:39-0400 Heart rate 80 /min HASHER MACHINE OPERATOR-C Tea Ruiz HASHER MACHINE OPERATOR Work Phone: [facility] 05-10-2022 10:39-0400 Respiratory rate 18 /min HASHER MACHINE OPERATOR-C Tea Ruiz HASHER MACHINE OPERATOR Work Phone: [facility] 05-10-2022 10:39-0400 SaO2% (BldA) [Mass fraction] 100 % HASHER MACHINE OPERATOR-C Tea Ruiz HASHER MACHINE OPERATOR Work Phone: 0(861)885-164116 [place] [id number] 05-10-2022 10:39-0400 Systolic blood pressure 159 mm[Hg] HASHER MACHINE OPERATOR-C Tea Ruiz HASHER MACHINE OPERATOR Work Phone: 2(930)298-682116 [place] [id number] 05-09-2022 11:09-0400 Body temperature 98.3 [degF] HASHER MACHINE OPERATOR-C Tea Ruiz HASHER MACHINE OPERATOR Work Phone: 4(157)458-935916 [place] [id number] 05-09-2022 11:09-0400 Diastolic blood pressure 83 mm[Hg] HASHER MACHINE OPERATOR-C Tea Ruiz HASHER MACHINE OPERATOR Work Phone: [facility] 05-09-2022 11:09-0400 Heart rate 77 /min HASHER MACHINE OPERATOR-C Tea Ruiz HASHER MACHINE OPERATOR Work Phone: [facility] 05-09-2022 11:09-0400 Respiratory rate 18 /min HASHER MACHINE OPERATOR-C Tea Ruiz HASHER MACHINE OPERATOR Work Phone: [facility] 05-09-2022 11:09-0400 SaO2% (BldA) [Mass fraction] 98 % HASHER MACHINE OPERATOR-C Tea Ruiz HASHER MACHINE OPERATOR Work Phone: 0(547)088-894716 [place] [id number] 05-09-2022 11:09-0400 Systolic blood pressure 145 mm[Hg] HASHER MACHINE OPERATOR-C Tea Ruiz HASHER MACHINE OPERATOR Work Phone: [facility] 05-08-2022 10:00-0400 Body height 137.16 cm HASHER MACHINE OPERATOR-C Tea Ruiz HASHER MACHINE OPERATOR Work Phone: 5(441)387-166916 [place] [id number] 05-08-2022 10:00-0400 Body mass index (BMI) [Ratio] 23.3 kg/m2 HASHER MACHINE OPERATOR-C Tea Ruiz HASHER MACHINE OPERATOR Work Phone: [facility] 05-08-2022 10:00-0400 Body weight 43.99 kg HASHER MACHINE OPERATOR-C Tea Ruiz HASHER MACHINE OPERATOR Work Phone: [facility] 05-08-2022 10:00-0400 Diastolic blood pressure 73 mm[Hg] HASHER MACHINE OPERATOR-C Tea Ruiz HASHER MACHINE OPERATOR Work Phone: [facility] 05-08-2022 10:00-0400 Heart rate 94 /min HASHER MACHINE OPERATOR-C Tea Ruiz HASHER MACHINE OPERATOR Work Phone: [facility] 05-08-2022 10:00-0400 Respiratory rate 16 /min HASHER MACHINE OPERATOR-C Tea Ruiz HASHER MACHINE OPERATOR Work Phone: [facility] 05-08-2022 10:00-0400 SaO2% (BldA) [Mass fraction] 100 % HASHER MACHINE OPERATOR-C Tea Ruiz HASHER MACHINE OPERATOR Work Phone: [facility] 05-08-2022 10:00-0400 Systolic blood pressure 127 mm[Hg] HASHER MACHINE OPERATOR-C Tea Ruiz HASHER MACHINE OPERATOR Work Phone: [facility] 05-07-2022 08:51-0400 Heart rate 84 /min DR ALEXIS JAMES MD [facility] 05-07-2022 08:51-0400 Respiratory rate 20 /min DR ALEXIS JAMES MD [facility] 05-07-2022 07:39-0400 Diastolic Blood Pressure Non-Invasive [address] ALEXIS JAMES MD [address] [place] [address] 05-07-2022 07:39-0400 Systolic Blood Pressure Non-Invasive [address] ALEXIS JAMES MD [facility] 05-07-2022 07:22-0400 Body temperature 98.06 [degF] DR ALEXIS JAMES MD [address] [place] [address] 05-07-2022 07:22-0400 Heart rate 84 /min DR ALEXIS JAMES MD [address] [place] [address] 05-07-2022 07:22-0400 Reason For Taking VItal Signs DR ALEXIS JAMES MD [facility] 05-07-2022 07:22-0400 Respiratory rate 20 /min DR ALEXIS JAMES MD [facility] 05-07-2022 00:59-0400 Body temperature 98.6 [degF] DR ALEXIS JAMES MD [address] [place] [address] 05-07-2022 00:59-0400 Diastolic Blood Pressure Non-Invasive [address] ALEXIS JAMES MD [address] [place] [address] 05-07-2022 00:59-0400 Heart rate 95 /min DR ALEXIS JAMES MD [facility] 05-07-2022 00:59-0400 Respiratory rate 20 /min DR ALEXIS JAMES MD [address] [place] [address] 05-07-2022 00:59-0400 Systolic Blood Pressure Non-Invasive [address] ALEXIS JAMES MD [address] [place] [id number] 05-06-2022 19:47-0400 Heart rate 90 /min DR ALEXIS JAMES MD [address] [place] [id number] 05-06-2022 19:47-0400 Reason For Taking VItal Signs DR ALEXIS JAMES MD [address] [place] [id number] 05-06-2022 16:42-0400 Body temperature 98.06 [degF] DR ALEXIS JAMES MD [address] [place] [id number] 05-06-2022 16:42-0400 Diastolic Blood Pressure Non-Invasive [address] ALEXIS JAMES MD [address] [place] [id number] 05-06-2022 16:42-0400 Heart rate 93 /min DR ALEXIS JAMES MD [address] [place] [id number] 05-06-2022 16:42-0400 Reason For Taking VItal Signs DR ALEXIS JAMES MD [address] [place] [address] 05-06-2022 16:42-0400 Systolic Blood Pressure Non-Invasive [address] ALEXIS JAMES MD [address] [place] [address] 05-06-2022 16:10-0400 Heart rate 92 /min DR ALEXIS JAMES MD [address] [place] [address] 05-06-2022 16:00-0400 Heart rate 87 /min DR ALEXIS JAMES MD [address] [place] [address] 05-06-2022 06:34-0400 Heart rate 86 /min DR ALEXIS JAMES MD [address] [place] [address] 05-05-2022 20:53-0400 Heart rate 102 /min DR ALEXIS JAMES MD [address] [place] [address] 05-05-2022 14:42-[address] ALEXIS JAMES MD [address] [place] [address] 05-05-2022 11:15-04[address] Cuff Size DR ALEXIS JAMES MD [address] [place] [address] 05-05-2022 11:15-[address] ALEXIS JAMES MD [address] [place] [address] 05-05-2022 11:15-[address] ALEXIS JAMES MD [address] [place] [address] 05-05-2022 11:15-0400 Mean blood pressure 91 mm[Hg] DR ALEXIS JAMES MD [address] [place] [address] 05-04-2022 10:30-04[address] Blood [address] Cuff Size DR ALEXIS JAMES MD [address] [place] [address] 05-04-2022 10:30-[address] ALEXIS JAMES MD [address] [place] [address] 05-04-2022 10:30-[address] ALEXIS JAMES MD [address] [place] [address] 05-04-2022 07:48-[address] Cuff Size DR ALEXIS JAMES MD [address] [place] [address] 05-04-2022 07:48-[address] ALEXIS JAMES MD [address] [place] [address] 05-02-2022 03:41-0400 Body height 137.[address] ALEXIS JAMES MD [address] [place] [address] 05-02-2022 03:41-0400 Body weight 44.[address] ALEIXS JAMES MD [address] [place] [address] 05-02-2022 03:41-0400 Body weight 23.8 kg/m2 DR ALEXIS JAMES MD [address] [place] [address] 05-02-2022 02:12-0400 Body temperature 97.88 [degF] YOHANNES BOWIE [employer]IC[employer] INTERNSHIP-INVASIVE MANAGER [address] [place] [address] 05-02-2022 02:12-0400 Diastolic Blood Pressure Non-Invasive 86 1 YOHANNES KAPPER [employer] INTERNSHIP-INVASIVE MANAGER [facility] 05-02-2022 02:12-0400 Heart rate 76 /min YOHANNES KAPPER [employer] INTERNSHIP-INVASIVE MANAGER [facility] 05-02-2022 02:12-0400 Respiratory rate 18 /min YOHANNES KAPPER [employer] INTERNSHIP-INVASIVE MANAGER [address] [place] [address] 05-02-2022 02:12-0400 Systolic Blood Pressure Non-Invasive 141 1 YOHANNES KAPPER [employer] INTERNSHIP-INVASIVE MANAGER [facility] 05-02-2022 01:00-0400 Body temperature 97.88 [degF] YOHANNES KAPPER M[employer]IC[employer] INTERNSHIP-INVASIVE MANAGER [facility] 05-02-2022 01:00-0400 Diastolic Blood Pressure Non-Invasive 86 1 YOHANNES KAPPER M[employer]IC[employer] INTERNSHIP-INVASIVE MANAGER [facility] 05-02-2022 01:00-0400 Heart rate 76 /min YOHANNES KAPPER M[employer]ICULTURAL INTERNSHIP-INVASIVE MANAGER [facility] 05-02-2022 01:00-0400 Systolic Blood Pressure Non-Invasive 141 1 YOHANNES KAPPER M[employer]IC[employer] INTERNSHIP-INVASIVE MANAGER [facility] 05-01-2022 19:54-0400 Body temperature 98.06 [degF] YOHANNES KAPPER M[employer]IC[employer] INTERNSHIP-INVASIVE MANAGER [facility] 05-01-2022 19:54-0400 Diastolic Blood Pressure Non-Invasive 85 1 YOHANNES KAPPER M[employer] INTERNSHIP-INVASIVE MANAGER [facility] 05-01-2022 19:54-0400 Heart rate 92 /min YOHANNES KAPPER M[employer] INTERNSHIP-INVASIVE MANAGER [facility] 05-01-2022 19:54-0400 Reason For Taking VItal Signs YOHANNES BOWIE [employer] INTERNSHIP-INVASIVE MANAGER [facility] 05-01-2022 19:54-0400 Respiratory rate 18 /min YOHANNES AZEB [employer] INTERNSHIP-INVASIVE MANAGER [facility] 05-01-2022 19:54-0400 Systolic Blood Pressure Non-Invasive 150 1 YOHANNES BOWIE [employer] INTERNSHIP-INVASIVE MANAGER [facility] 05-01-2022 15:15-0400 Heart rate 88 /min YOHANNES ABIDAER [employer] INTERNSHIP-INVASIVE MANAGER [facility] 05-01-2022 11:55-0400 Heart rate 84 /min YOHANNES BOWIE [employer] INTERNSHIP-INVASIVE MANAGER [facility] 05-01-2022 03:15-0400 Heart rate 86 /min YOHANNES TAIER [employer] INTERNSHIP-INVASIVE MANAGER [facility] 04-30-2022 03:36-0400 Body weight 46.6 kg YOHANNES BOWIE [employer] INTERNSHIP-INVASIVE MANAGER [facility] 04-29-2022 23:17-0400 Blood Pressure Location YOHANNES BOWIE [employer] INTERNSHIP-INVASIVE MANAGER [facility] 04-29-2022 23:17-0400 Blood Pressure Method YOHANNES TAIER [employer] INTERNSHIP-INVASIVE MANAGER [facility] 04-29-2022 20:36-0400 Body height 137.2 cm YOHANNES BOWIE [employer] INTERNSHIP-INVASIVE MANAGER [facility] 04-29-2022 20:36-0400 Body weight 44.5 kg YOHANNES TAIER [employer] INTERNSHIP-INVASIVE MANAGER [facility] 04-29-2022 20:36-0400 Body weight 23.64 kg/m2 YOHANNES BOWIE [employer] INTERNSHIP-INVASIVE MANAGER [facility] 04-29-2022 12:59-0400 Body weight 44 kg YOHANNES TAIMANDY [employer] INTERNSHIP-INVASIVE MANAGER [facility] 04-28-2022 18:35-0400 Body height 137.[address] ALLEN GREER MD [facility] 04-28-2022 18:35-0400 Body temperature 98.96 [degF] DR LALEN GREER MD [facility] 04-28-2022 18:35-0400 Body weight [address] ALLEN GREER MD [facility] 04-28-2022 18:35-0400 Diastolic Blood Pressure Non-Invasive [address] ALLEN GREER MD [facility] 04-28-2022 18:35-0400 Heart rate 97 /min DR ALLEN GREER MD [facility] 04-28-2022 18:35-0400 Respiratory rate 24 /min DR ALLEN GREER MD [facility] 04-28-2022 18:35-0400 Systolic Blood Pressure Non-Invasive [address] ALLEN GREER MD [facility] 04-13-2022 14:45-0500 Body height 137.16 cm HASHER MACHINE OPERATOR-Janeen Ruiz HASHER MACHINE OPERATOR Work Phone: [facility] 04-13-2022 14:39-0500 Body mass index (BMI) [Ratio] 24.5 kg/m2 HASHER MACHINE OPERATOR-Janeen Ruiz HASHER MACHINE OPERATOR Work Phone: [facility] 04-13-2022 14:39-0500 Body temperature 98.3 [degF] CÉSAR-Janeen Ruiz HASHER MACHINE OPERATOR Work Phone: [facility] 04-13-2022 14:39-0500 Body weight 46.03 kg HASHER MACHINE OPERATOR-C Tea Ruiz HASHER MACHINE OPERATOR Work Phone: [facility] 04-13-2022 14:39-0500 Diastolic blood pressure 101 mm[Hg] HASHER MACHINE OPERATOR-C Tea Ruiz HASHER MACHINE OPERATOR Work Phone: [facility] 04-13-2022 14:39-0500 Heart rate 99 /min HASHER MACHINE OPERATOR-C Tea Ruiz HASHER MACHINE OPERATOR Work Phone: 8(288)578-837616 [place] [id number] 04-13-2022 14:39-0500 Respiratory rate 17 /min HASHER MACHINE OPERATOR-C Tea Ruiz HASHER MACHINE OPERATOR Work Phone: 2(483)689-852516 [place] [id number] 04-13-2022 14:39-0500 SaO2% (BldA) [Mass fraction] 96 % HASHER MACHINE OPERATOR-C Tea Ruiz HASHER MACHINE OPERATOR Work Phone: 1([phone])229-584516 [place] [id number] 04-13-2022 14:39-0500 Systolic blood pressure 159 mm[Hg] HASHER MACHINE OPERATOR-C Tea Ruiz HASHER MACHINE OPERATOR Work Phone: 3(482)778-664616 [place] [id number] 03-19-2022 15:29-0500 Body mass index (BMI) [Ratio] 24.2 kg/m2 HASHER MACHINE OPERATOR-C Tea Ruiz HASHER MACHINE OPERATOR Work Phone: 4(937)[phone] [place] [id number] 03-19-2022 15:29-0500 Body temperature 98.3 [degF] HASHER MACHINE OPERATOR-C Tea Ruiz HASHER MACHINE OPERATOR Work Phone: 8(725)103-712916 [place] [id number] 03-19-2022 15:29-0500 Body weight 45.55 kg HASHER MACHINE OPERATOR-C Tea Ruiz HASHER MACHINE OPERATOR Work Phone: 5(477)468-696416 [place] [id number] 03-19-2022 15:29-0500 Diastolic blood pressure 90 mm[Hg] HASHER MACHINE OPERATOR-C Tea Ruiz HASHER MACHINE OPERATOR Work Phone: 7(552)825-657516 [place] [id number] 03-19-2022 15:29-0500 Heart rate 91 /min HASHER MACHINE OPERATOR-C Tea Ruiz HASHER MACHINE OPERATOR Work Phone: 8(646)[phone] [place] [id number] 03-19-2022 15:29-0500 Respiratory rate 17 /min HASHER MACHINE OPERATOR-C Tea Ruiz HASHER MACHINE OPERATOR Work Phone: [facility] 03-19-2022 15:29-0500 SaO2% (BldA) [Mass fraction] 97 % HASHER MACHINE OPERATOR-C Tea Luongs HASHER MACHINE OPERATOR Work Phone: [facility] 03-19-2022 15:29-0500 Systolic blood pressure 151 mm[Hg] HASHER MACHINE OPERATOR-C Tea Luongs HASHER MACHINE OPERATOR Work Phone: [facility] 11-21-2021 11:42-0400 Body height 137.16 cm HASHER MACHINE OPERATOR-C Tea Luongs HASHER MACHINE OPERATOR Work Phone: [facility] Work Phone: 11-21-2021 11:42-0400 Body mass index (BMI) [Ratio] 26 kg/m2 HASHER MACHINE OPERATOR-C Tea Luongs HASHER MACHINE OPERATOR Work Phone: [facility] Work Phone: 11-21-2021 11:42-0400 Body temperature 97.4 [degF] HASHER MACHINE OPERATOR-C Tea Luongs HASHER MACHINE OPERATOR Work Phone: [facility] Work Phone: 11-21-2021 11:42-0400 Body weight 48.98 kg HASHER MACHINE OPERATOR-C Tea Luongs HASHER MACHINE OPERATOR Work Phone: [facility] Work Phone: 11-21-2021 11:42-0400 Diastolic blood pressure 110 mm[Hg] HASHER MACHINE OPERATOR-C Tea Luongs HASHER MACHINE OPERATOR Work Phone: [facility] Work Phone: 11-21-2021 11:42-0400 Heart rate 102 /min HASHER MACHINE OPERATOR-C Tea Ruiz HASHER MACHINE OPERATOR Work Phone: [facility] Work Phone: 11-21-2021 11:42-0400 Respiratory rate 16 /min HASHER MACHINE OPERATOR-C Tea Ruiz HASHER MACHINE OPERATOR Work Phone: [facility] Work Phone: 11-21-2021 11:42-0400 SaO2% (BldA) [Mass fraction] 100 % HASHER MACHINE OPERATOR-C Tea Luongs HASHER MACHINE OPERATOR Work Phone: [facility] Work Phone: 11-21-2021 11:42-0400 Systolic blood pressure 152 mm[Hg] HASHER MACHINE OPERATOR-C Tea Luongs HASHER MACHINE OPERATOR Work Phone: [facility] Work Phone: 11-21-2021 08:53-0400 Body weight 46.27 kg Teadonta Luongs [employer] INTERNSHIP.ENVIRONMENTAL SERVICES PROJECT MANAGER Work Phone: [facility] 11-21-2021 08:53-0400 Diastolic blood pressure 100 mm[Hg] Tea Ruiz [employer] INTERNSHIP.ENVIRONMENTAL SERVICES PROJECT MANAGER Work Phone: [facility] 11-21-2021 08:53-0400 Heart rate 107 /min Tea Ruiz [employer]NSHIP.ENVIRONMENTAL SERVICES PROJECT MANAGER Work Phone: [facility] 11-21-2021 08:53-0400 SaO2% (BldA) [Mass fraction] 99 % Teadonta Luongs [employer] INTERNSHIP.ENVIRONMENTAL SERVICES PROJECT MANAGER Work Phone: [facility] 11-21-2021 08:53-0400 Systolic blood pressure 160 mm[Hg] Tea Ruiz [employer] INTERNSHIP.ENVIRONMENTAL SERVICES PROJECT MANAGER Work Phone: [facility] 11-06-2021 09:23-0400 Heart rate 107 /min Marcellus Rosado MD Work Phone: [facility] 11-06-2021 09:23-0400 Respiratory rate 16 /min Marcellus Rosado MD Work Phone: [facility] 11-06-2021 09:23-0400 SaO2% (BldA) [Mass fraction] 98 % Marcellus Rosado MD Work Phone: [facility] 10-27-2021 17:33-0400 Body temperature 98.49 [degF] Ginny Costa MULTICULTURAL INTERNSHIP.INVASIVE MANAGER Work Phone: [facility] 10-27-2021 17:33-0400 Body weight 47.45 kg Ginny Costa M[employer]ICULTURAL INTERNSHIP.INVASIVE MANAGER Work Phone: [facility] 10-27-2021 17:33-0400 Diastolic blood pressure 96 mm[Hg] Ginny Praisler-Wood M[employer]ICULTURAL INTERNSHIP.INVASIVE MANAGER Work Phone: [facility] 10-27-2021 17:33-0400 Heart rate 92 /min Ginny Praisler-Wood M[employer]ICULTURAL INTERNSHIP.INVASIVE MANAGER Work Phone: [facility] 10-27-2021 17:33-0400 Respiratory rate 18 /min Ginny Praisler-Wood M[employer]ICULTURAL INTERNSHIP.INVASIVE MANAGER Work Phone: [facility] 10-27-2021 17:33-0400 SaO2% (BldA) [Mass fraction] 96 % Ginny Praisler-Wood M[employer]ICULTURAL INTERNSHIP.INVASIVE MANAGER Work Phone: [facility] 10-27-2021 17:33-0400 Systolic blood pressure 150 mm[Hg] Ginny Praisler-Wood M[employer]ICULTURAL INTERNSHIP.INVASIVE MANAGER Work Phone: [facility] 10-15-2021 14:50-0400 Body mass index (BMI) [Ratio] 26 kg/m2 HASHER MACHINE OPERATOR-C Tea Ruiz HASHER MACHINE OPERATOR Work Phone: [facility] Work Phone: 10-15-2021 14:50-0400 Body weight 48.98 kg HASHER MACHINE OPERATOR-C Tea Ruiz HASHER MACHINE OPERATOR Work Phone: [facility] Work Phone: 09-16-2021 15:33-0400 Body temperature 98.1 [degF] Gregorio Luislebury MULTICULTURAL INTERNSHIP.INVASIVE MANAGER Work Phone: [facility] 09-16-2021 15:33-0400 Body weight 49.35 kg Gregorio Pendlebury M[employer]ICULTURAL INTERNSHIP.INVASIVE MANAGER Work Phone: [facility] 09-16-2021 15:33-0400 Diastolic blood pressure 78 mm[Hg] Gregorio Pendlebury MULTICULTURAL INTERNSHIP.INVASIVE MANAGER Work Phone: [facility] 09-16-2021 15:33-0400 Heart rate 100 /min Gregorio Charles M[employer]ICULTURAL INTERNSHIP.INVASIVE MANAGER Work Phone: [facility] 09-16-2021 15:33-0400 Respiratory rate 16 /min [facility] MULTIC[employer]URAL INTERNSHIP.INVASIVE MANAGER Work Phone: [facility] 09-16-2021 15:33-0400 SaO2% (BldA) [Mass fraction] 97 % [facility] MULTICULTURAL INTERNSHIP.INVASIVE MANAGER Work Phone: [facility] 09-16-2021 15:33-0400 Systolic blood pressure 134 mm[Hg] [facility] MULTICULTURAL INTERNSHIP.INVASIVE MANAGER Work Phone: [facility] 08-12-2021 14:50-0400 Body height 142.[facility] M[employer] INTERNSHIP.ENVIRONMENTAL SERVICES PROJECT MANAGER Work Phone: [facility] 08-12-2021 14:50-0400 Body weight 48.53 kg Tea Ruiz [employer] INTERNSHIP.ENVIRONMENTAL SERVICES PROJECT MANAGER Work Phone: [facility] 08-12-2021 14:50-0400 Diastolic blood pressure 88 mm[Hg] Tea Ruiz M[employer]ICULTURAL INTERNSHIP.ENVIRONMENTAL SERVICES PROJECT MANAGER Work Phone: [facility] 08-12-2021 14:50-0400 Heart rate 84 /min Tea Ruiz M[employer]IC[employer] INTERNSHIP.ENVIRONMENTAL SERVICES PROJECT MANAGER Work Phone: [facility] 08-12-2021 14:50-0400 Respiratory rate 16 /min Tea Ruiz M[employer]IC[employer] INTERNSHIP.ENVIRONMENTAL SERVICES PROJECT MANAGER Work Phone: [facility] 08-12-2021 14:50-0400 Systolic blood pressure 152 mm[Hg] Tea Ruiz M[employer]ICULTURAL INTERNSHIP.ENVIRONMENTAL SERVICES PROJECT MANAGER Work Phone: [facility] 08-08-2021 08:57-0400 Body height 137.16 cm [facility] Work Phone: 08-08-2021 08:57-0400 Body mass index (BMI) [Ratio] 26.5 kg/m2 [facility] Work Phone: 08-08-2021 08:57-0400 Body temperature 97.9 [degF] [facility] Work Phone: 08-08-2021 08:57-0400 Body weight 49.89 kg [facility] Work Phone: 08-08-2021 08:57-0400 Diastolic blood pressure 107 mm[Hg] [facility] Work Phone: 08-08-2021 08:57-0400 Heart rate 100 /min [facility] Work Phone: 08-08-2021 08:57-0400 Respiratory rate 18 /min [facility] Work Phone: 08-08-2021 08:57-0400 SaO2% (BldA) [Mass fraction] 100 % [facility] Work Phone: 08-08-2021 08:57-0400 Systolic blood pressure 177 mm[Hg] [facility] Work Phone: Encounters Encounter Date Encounter Type Care Provider Facility Start: 11-01-2024 End: 11-02-2024 Refill Jeri Bridenthal M[employer] INTER[employer]HIP - INVASIVE MANAGER Work Phone: [facility] Comment on above: Insomnia, unspecifie d type Start: 10-26-2024 End: 10-26-2024 Office outpatient new 30 minutes Deepa Cassidy M[employer] INTER[employer]HIP - INVASIVE MANAGER Work Phone: [facility] Comment on above: Abscess (Primary Dx) ; Cellulitis of chest wall Start: 10-26-2024 End: 10-26-2024 ambulatory DEEPA CASSIDY [facility] Start: 10-19-2024 End: 10-19-2024 Office outpatient visit 15 minutes Jeri Bridenthal [employer] - INVASIVE MANAGER Work Phone: [facility] Comment on above: Cellulitis of chest wall (Primary Dx) Start: 10-19-2024 End: 10-19-2024 ambulatory JERI BRIDENTHAL [facility] Start: 10-15-2024 End: 10-15-2024 Emergency department patient visit Jeri Bridenthal Work Phone: -Emergency Department Work Phone: Start: 10-13-2024 End: 10-13-2024 Emergency department patient visit MALVIN MANCUSO MD [facility] Start: 10-07-2024 End: 10-07-2024 ambulatory Jeri Bridenthal Work Phone: -[facility] Start: 10-07-2024 End: 10-07-[address] Shady Burks MD -[facility] Work Phone: Start: 10-06-2024 End: 10-07-2024 Refill Jeri Bridenthal M[employer] INTERNSHIP - INVASIVE MANAGER Work Phone: [facility] Comment on above: Hypercholesterolemia Start: 10-05-2024 End: 10-06-2024 Refill Jeri Bridenthal M[employer] INTERNSHIP - INVASIVE MANAGER Work Phone: [facility] Comment on above: Chronic pain syndrom e Start: 10-03-2024 End: 10-04-2024 Refill Jeri Bridenthal M[employer] INTERNSHIP - INVASIVE MANAGER Work Phone: [facility] Comment on above: Insomnia, unspecifie d type Start: 09-11-2024 End: 09-11-[address] Shady Burks MD -[facility] Work Phone: Start: 09-11-2024 End: 09-11-2024 ambulatory Jeri Bridenthal Work Phone: -[facility] Start: 09-07-2024 End: 09-07-2024 Refill Jeri Bridenthal M[employer] INTERNSHIP - INVASIVE MANAGER Work Phone: [facility] Comment on above: Chronic right-sided low back pain without sciatica Start: 09-06-2024 End: 09-07-2024 Refill Jeri Bridenthal M[employer] INTERNSHIP - INVASIVE MANAGER Work Phone: [facility] Comment on above: Chronic pain syndrom e Start: 08-31-2024 End: 09-07-2024 Telephone encounter Jeri Bridenthal M[employer]IC[employer]URAL INTERNSHIP - INVASIVE MANAGER Work Phone: [facility] Comment on above: Referral Start: 08-30-2024 End: 08-30-2024 Office outpatient visit 25 minutes Jeri Bridenthal M[employer]NSHIP - INVASIVE MANAGER Work Phone: [facility] [employer] Comment on above: Chronic right-sided low back [...] Start: 08-30-2024 End: 08-30-2024 ambulatory JERI BRIDENTHAL [facility] Start: 08-10-2024 End: 08-10-2024 Refill Jeri Bridenthal M[employer] INTERNSHIP - INVASIVE MANAGER Work Phone: [facility] [employer] Comment on above: Chronic pain syndrom e Start: 08-02-2024 End: 08-02-2024 Refill Jeri Bridenthal M[employer]IC[employer] INTERNSHIP - INVASIVE MANAGER Work Phone: [facility] Comment on above: Primary hypertension Start: 08-01-2024 End: 08-02-2024 Refill Jeri Bridenthal M[employer]IC[employer] INTERNSHIP - INVASIVE MANAGER Work Phone: [facility] Comment on above: Insomnia, unspecifie d type Start: 07-13-2024 End: 07-13-2024 Refill Jeri Bridenthal M[employer] INTERNSHIP - INVASIVE MANAGER Work Phone: [facility] Comment on above: Chronic pain syndrom e Start: 06-12-2024 End: 06-13-2024 Refill Jeri Bridenthal M[employer]IC[employer] INTERNSHIP - INVASIVE MANAGER Work Phone: [facility] Comment on above: Chronic pain syndrom e Start: 2024 End: 2024 Refill Jose D Goodman MD Work Phone: [facility] Comment on above: Insomnia, unspecifie d type Start: 05-31-2024 End: 05-31-2024 Office outpatient visit 25 minutes Jeri Bridenthal M[employer] INTERNSHIP - INVASIVE MANAGER Work Phone: [facility] Comment on above: Chronic pain syndrom e (Primary Dx); Screening for cervical cancer; Hidradenitis; Systemic sclerosis (HCC); Uncomplicated opioid dependence (HCC); Primary insomnia Start: 05-31-2024 End: 05-31-2024 ambulatory JERI BRIDENTHAL [facility] Start: 05-15-2024 End: 05-15-2024 Refill Jeri Bridenthal M[employer] INTERNSHIP - INVASIVE MANAGER Work Phone: [facility] Comment on above: Gastroesophageal ref lux disease without esophagitis (Primary Dx); Chronic pain syndrome Start: 05-08-2024 End: 05-08-2024 Refill Jose D Goodman MD Work Phone: [facility] Comment on above: Insomnia, unspecifie d type Start: 04-28-2024 End: 04-28-2024 Emergency department patient visit NONE PHYSICIAN Facility:[facility] Start: 04-27-2024 End: 06-06-2024 ambulatory Jazzmine Boone RN [facility] Start: 04-27-2024 End: 06-06-2024 Patient encounter procedure Jazzmine Boone RN [facility] Start: 04-26-2024 End: 04-26-2024 Emergency department patient visit THANIA CLINTON DO Facility:[facility] Start: 04-14-2024 End: 04-14-2024 Refill Jeri Bridenthal M[employer]NSHIP - INVASIVE MANAGER Work Phone: [facility] Start: 04-10-2024 End: 04-11-2024 Refill Jeri Bridenthal M[employer] INTERNSHIP - INVASIVE MANAGER Work Phone: [facility] Comment on above: Chronic pain syndrom e Start: 04-05-2024 End: 04-05-2024 Refill Jeri Bridenthal M[employer]IC[employer] INTERNSHIP - INVASIVE MANAGER Work Phone: [facility] Comment on above: Insomnia, unspecifie d type Start: 04-04-2024 End: 04-04-2024 Refill Jeri Bridenthal M[employer]IC[employer] INTERNSHIP - INVASIVE MANAGER Work Phone: [facility] Comment on above: Hypercholesterolemia Start: 03-31-2024 End: 03-31-[address] BRANDI BENSON MD Facility:[facility] Start: 03-31-2024 End: 03-31-2024 Patient encounter procedure JERI BRIDENTHAL MULTICULTURAL INTERNSHIP/INVASIVE MANAGER [facility] Start: 03-17-2024 End: 03-17-2024 Telephone encounter Lupis Puga RN [facility] [place] Comment on above: Colon Cancer Screeni ng Start: 03-14-2024 End: 03-14-2024 Assay of hemosiderin, quant Jeri Bridenthal M[employer] INTERNSHIP - INVASIVE MANAGER Work Phone: [facility] Start: 03-14-2024 End: 03-14-2024 Patient encounter procedure Jeri Bridenthal M[employer] INTERNSHIP - INVASIVE MANAGER Work Phone: [facility] Comment on above: Routine general medi kierra [...] insomnia Start: 03-14-2024 End: 03-14-2024 ambulatory JERI [facility] Start: 03-14-2024 End: 03-14-2024 Encounter for general adult medical examination without abnormal [facility] Start: 03-02-2024 End: 03-02-2024 Refill Jose D Goodman MD Work Phone: [facility] Comment on above: Chronic midline thor acic back pain; Insomnia, unspecified type Start: 02-17-2024 End: 02-17-2024 Refill Jose D Goodman MD Work Phone: [facility] Comment on above: Chronic pain syndrom e Start: 02-07-2024 End: 02-07-2024 Refill Jerikalyan Trinidad M[employer]IC[employer] INTERNSHIP - INVASIVE MANAGER Work Phone: [facility] Comment on above: Chronic midline thor acic back pain Start: 01-22-2024 End: 01-22-2024 Emergency department patient visit [facility] Facility:[facility] Start: 01-11-2024 End: 01-11-2024 Office outpatient visit 25 minutes Jeri Trinidad M[employer] INTERNSHIP - INVASIVE MANAGER Work Phone: [facility] Comment on above: Chronic pain syndrom e (Primary Dx); Bulging lumbar disc; Yeast dermatitis; Chronic right-sided low back pain without sciatica; Mass on back Start: 01-11-2024 End: 01-11-2024 ambulatory JERI [facility] Start: 12-22-2023 End: 12-23-2023 Refill Jose D Goodman MD Work Phone: [facility] Start: 12-14-2023 End: 12-14-2023 Telephone encounter Jeri Trinidad M[employer] INTERNSHIP - INVASIVE MANAGER Work Phone: [facility] Comment on above: Care Coordination Start: 12-09-2023 End: 12-09-2023 Office outpatient visit 25 minutes Jeri Abilioenthal [employer] - INVASIVE MANAGER Work Phone: [facility] Comment on above: Chronic pain syndrom e (Primary Dx); Arthritis; Influenza vaccine needed; Linear scleroderma; Primary hypertension Start: 12-09-2023 End: 12-09-2023 ambulatory JERI DELLAAL [facility] Start: 12-07-2023 End: 12-07-2023 ambulatory [facility] Facility:[facility] Start: 11-30-2023 ambulatory Jeri Dellahi Faci lity:[facility] Start: 11-25-2023 End: 11-27-2023 Telephone encounter Jeri Abilioenthal [employer] - INVASIVE MANAGER Work Phone: [facility] Comment on above: Medication Problem Start: 11-24-2023 End: 11-24-2023 ambulatory Jerikalyan Youngbloodal Facility:[facility] Start: 11-03-2023 End: 11-03-2023 Office outpatient visit 25 minutes Jeri Bridenthal [employer] - INVASIVE MANAGER Work Phone: [facility] Comment on above: Chronic pain syndrom e (Primary Dx); Chronic midline thoracic back pain; Primary hypertension; Irritable bowel syndrome with both constipation and diarrhea; Linear scleroderma; Primary insomnia; Encounter for screening mammogram for malignant neoplasm of breast; Osteoporosis, unspecified osteoporosis type, unspecified pathological fracture presence Start: 10-26-2023 End: 10-26-2023 Office outpatient new 45 minutes Jaison Guo MD Work Phone: [facility] Comment on above: Spondylosis without myelopathy or radiculopathy, lumbar region (Primary Dx); Linear scleroderma; Uncomplicated opioid dependence (HCC) Start: 10-12-2023 End: 10-13-2023 Telephone encounter Jeri Abilioenthal [employer] - INVASIVE MANAGER Work Phone: [facility] Brianna Oakes Comment on above: Orders (CT-Lung Scre en) Start: 10-06-2023 End: 10-06-2023 Office outpatient visit 15 minutes Jeri Bridenthal [employer] - INVASIVE MANAGER Work Phone: [facility] Comment on above: Chronic pain syndrom e (Primary Dx); Insomnia, unspecified type; Linear scleroderma; Primary hypertension; Osteoporosis, unspecified osteoporosis type, unspecified pathological fracture presence; Other osteoarthritis of spine, lumbar region; Hypercholesterolemia Start: 10-06-2023 End: 10-06-2023 Office outpatient visit 25 minutes Jeri Bridenthal [employer] - INVASIVE MANAGER Work Phone: [facility] Comment on above: Chronic pain syndrom e (Primary Dx); Insomnia, unspecified type; Linear scleroderma; Primary hypertension; Osteoporosis, unspecified osteoporosis type, unspecified pathological fracture presence; Other osteoarthritis of spine, lumbar region; Hypercholesterolemia Start: 09-21-2023 End: 09-21-2023 ambulatory Missy Draper RN [facility] Clinical Communication Start: 09-21-2023 End: 09-21-2023 Patient encounter procedure Missy Draper RN [facility] al Communication Start: 09-09-2023 End: 09-09-2023 Office outpatient visit 25 minutes Jeri Bridenthal [employer] - INVASIVE MANAGER Work Phone: [facility] Comment on above: Chronic pain syndrom e (Primary Dx); Insomnia, unspecified type; Linear scleroderma; Primary hypertension Start: 09-08-2023 End: 09-08-2023 Refill Jeri Bridenthal [employer] - INVASIVE MANAGER Work Phone: [facility] Comment on above: Hypercholesterolemia Start: 08-25-2023 End: 08-26-2023 Refill Jeri Bridenthal [employer] - INVASIVE MANAGER Work Phone: [facility] Comment on above: Chronic midline thor acic back pain Start: 08-20-2023 End: 08-23-2023 ambulatory Willard Medeiros RN [facility] Clinical Communication Start: 08-20-2023 End: 08-23-2023 Patient encounter procedure Willard Medeiros RN [facility] al Communication Comment on above: Insomnia, unspecifie d type Start: 08-12-2023 End: 08-12-2023 Office outpatient new 20 minutes [facility] Osteo Schedule [facility] Osteoporosis [place] Comment on above: Age-related osteopor osis without current pathological fracture (Primary Dx); Scleroderma (HCC); Vitamin D deficiency; Fatigue, unspecified type Start: 08-12-2023 End: 08-12-2023 Office outpatient visit 15 minutes Jeri Abilioenthal [employer] - INVASIVE MANAGER Work Phone: [facility] Comment on above: Chronic pain syndrom e (Primary Dx); Linear scleroderma; Primary hypertension; Osteopetrosis; Osteoporosis, unspecified osteoporosis type, unspecified pathological fracture presence Start: 08-05-2023 End: 09-17-2023 ambulatory JERI ABILIOENTHAL [employer]/INVASIVE MANAGER Facility:[facility] Start: 08-05-2023 End: 09-17-2023 Physical therapy management JERI ABILIOENTHAL [employer]/INVASIVE MANAGER [facility] Start: 07-28-2023 End: 07-28-2023 Office outpatient visit 25 minutes Jeri Bridenthal [employer] - INVASIVE MANAGER Work Phone: [facility] Comment on above: Bulging lumbar disc (Primary Dx); Leg length discrepancy; Other osteoarthritis of spine, lumbar region; Primary hypertension; Chronic pain syndrome; Mass on back; Osteoporosis, unspecified osteoporosis type, unspecified pathological fracture presence; Primary insomnia Start: 07-26-2023 Refill Jeri Juan Daniel lam [employer] - INVASIVE MANAGER Work Phone: [facility] Start: 07-23-2023 ambulatory Rosemary Shoemaker RN [facility] Clinical Communication Start: 07-23-2023 Patient encounter procedure Rosemary juan RN [facility] Clinical Communication Start: 07-23-2023 Telephone encounter Katie Rider RN [facility] Clinical Communication Start: 07-13-2023 Refill Jeri Juan Daniel lam [employer] - INVASIVE MANAGER Work Phone: [facility] Comment on above: Chronic midline thor acic back pain Chronic pain syndrom e Start: 07-08-2023 End: 07-08-2023 Subsequent hospital visit by physician Jeri Trinidad APRN - INVASIVE MANAGER Work Phone: [facility] MRI Comment on above: Mass on back; Systemic sclerosis (HCC) Start: 06-29-2023 End: 06-29-2023 Subsequent hospital visit by physician [facility] Exam Room [address] [facility] CT Comment on above: No Show Start: 06-24-2023 End: 06-24-2023 Subsequent hospital visit by physician Jeri Trinidad [employer] - INVASIVE MANAGER Work Phone: [facility] MRI Comment on above: Canceled (Patient: Mirza michel Unwell) Start: 06-24-2023 Refill Jose D Goodman MD Work Phone: [facility] Start: 06-22-2023 Refill Jeri lam [employer] - INVASIVE MANAGER Work Phone: [facility] Comment on above: Insomnia, unspecifie d type Start: 06-08-2023 Telephone encounter Jose D Cabrera MD Work Phone: [facility] Comment on above: rx for LUNG SCREENIN G Start: 06-01-2023 Orders Only Jeri lam [employer] - INVASIVE MANAGER Work Phone: [facility] Comment on above: Chronic pain syndrom e (Primary Dx); Chronic midline thoracic back pain; Systemic sclerosis (HCC); Spondylosis of lumbar spine; Linear scleroderma; Chronic pain of both upper extremities; Arthritis of left glenohumeral joint Start: 05-20-2023 End: 05-20-2023 Office outpatient visit 25 minutes Jeri Trinidad [employer] - INVASIVE MANAGER Work Phone: [facility] Comment on above: Mass on back (Primar y Dx); Chronic midline thoracic back pain; Systemic sclerosis (HCC); Chronic pain syndrome; Insomnia, unspecified type; Spondylosis of lumbar spine Start: 05-12-2023 Telephone encounter Jaison quiros MD Work Phone: [facility] Comment on above: New Patient Start: 05-03-2023 Telephone encounter Jose D Cabrera MD Work Phone: [facility] Clinical Communication Comment on above: Appointment Request Start: 04-29-2023 End: 04-29-2023 Office outpatient visit 25 minutes Jeri Laguerreadamethan [employer] - INVASIVE MANAGER Work Phone: [facility] Comment on above: Chronic pain syndrom e (Primary Dx); Acute right-sided low back pain without sciatica; Skin pimple; Chronic pain of both upper extremities Start: 04-13-2023 Refill Jeri Frances carole [employer] - INVASIVE MANAGER Work Phone: [facility] Comment on above: Chronic midline thor acic back pain Start: 03-31-2023 End: 03-31-2023 Office outpatient visit 25 minutes Jerikalyan Laguerreadamethan [employer] - INVASIVE MANAGER Work Phone: [facility] Comment on above: Chronic midline thor acic back pain (Primary Dx); Chronic pain syndrome; Linear scleroderma; Insomnia, unspecified type Start: 03-08-2023 Telephone encounter Jeri Dorene zavala [employer] - INVASIVE MANAGER Work Phone: [facility] Comment on above: Results Start: 03-04-2023 Telephone encounter Jose D Cabrera MD Work Phone: [facility] Comment on above: Referral Start: 03-04-2023 End: 03-04-2023 Assay of hemosiderin, quant Jerilakshmi Youngbloodal [employer] - INVASIVE MANAGER Work Phone: [facility] Work Phone: Start: 03-04-2023 End: 03-04-2023 Patient encounter procedure Jerikalyan Laguerreadamethan [employer] - INVASIVE MANAGER Work Phone: [facility] Comment on above: Routine general medi [...] patient visit Dr. Rayo Cantu Work Phone: [facility] Work Phone: Start: 02-05-2023 Telephone encounter Jeri zavala [employer] [place] Work Phone: [facility] Comment on above: Results Start: 02-04-2023 Telephone encounter Historical Galina DASH Work Phone: [facility] Comment on above: Colon Cancer Screeni ng; Colonoscopy (Screening Program) Colon Cancer Screeni ng; Colonoscopy (Transitioned out of screening program/pt requests office visit) Start: 02-03-2023 End: 02-03-2023 Office outpatient visit 25 minutes Jeri Trinidad [employer] [place] Work Phone: [facility] Comment on above: Chronic pain syndrom e (Primary Dx); Insomnia, unspecified type; Linear scleroderma; Chronic midline thoracic back pain; Primary hypertension; Colon cancer screening Start: 01-14-2023 Telephone encounter Jaison quiros MD Work Phone: [facility] Comment on above: Appointment Request Start: 01-06-2023 End: 01-06-2023 Office outpatient visit 25 minutes Jeri Trinidad [employer] [place] Work Phone: [facility] Comment on above: Chronic pain syndrom e (Primary Dx); Irritation of left eye; Primary hypertension Start: 01-06-2023 ambulatory Brooke Davis RN [facility] Clinical Communication Start: 01-06-2023 Patient encounter procedure Brooke Davis RN [facility] Clinical Communication Comment on above: Linear scleroderma; Chronic midline thoracic back pain Start: 01-05-2023 Refill Jose D Goodman MD Work Phone: [facility] Clinical Communication Comment on above: Linear scleroderma; Chronic midline thoracic back pain Start: 01-04-2023 Refill Jose D Goodman MD Work Phone: [facility] Start: 12-23-2022 End: 12-23-[address] Rayo Cantu Work Phone: [facility] Work Phone: Start: 12-21-2022 Refill Jose D Goodman MD Work Phone: [facility] Comment on above: Insomnia, unspecifie d type Start: 11-26-2022 Telephone encounter Jeri zavala [employer] - INVASIVE MANAGER Work Phone: [facility] Comment on above: Other (Pain Shiraz.) Start: 11-24-2022 End: 11-24-2022 Office outpatient new 45 minutes Jeri Trinidad [employer] - INVASIVE MANAGER Work Phone: [facility] Comment on above: Insomnia, unspecifie d type (Primary Dx); Linear scleroderma; Chronic midline thoracic back pain; Chronic pain syndrome Start: 11-18-2022 End: 11-18-2022 ambulatory SABRINA TINEO Facility:[facility] Start: 11-18-2022 End: 11-18-2022 Patient encounter procedure Sabrina Tineo MD Work Phone: Pain Management Comment on above: Lumbar spondylosis ( Primary Dx); Low back pain, unspecified back pain laterality, unspecified chronicity, unspecified whether sciatica present; Thoracic spondylosis without myelopathy; Chronic, continuous use of opioids Start: 08-31-2022 End: 08-31-2022 ambulatory HASHER MACHINE OPERATOR-C Solis Shell HASHER MACHINE OPERATOR Work Phone: [facility] Work Phone: Start: 08-31-2022 End: 08-31-2022 Patient encounter procedure HASHER MACHINE OPERATOR-C Solis patricians HASHER MACHINE OPERATOR Work Phone: [facility] Work Phone: Start: 08-14-2022 End: 08-14-2022 Patient encounter procedure HASHER MACHINE OPERATOR-C Solis richi HASHER MACHINE OPERATOR Work Phone: [facility] Work Phone: Start: 08-05-2022 End: 08-05-2022 Patient encounter procedure WILLARD PERKINS [employer]-INVASIVE MANAGER [facility] Start: 07-03-2022 End: 10-23-2022 Physical therapy management RAYO CANTU DO [facility] Start: 06-29-2022 End: 06-29-2022 Patient encounter procedure SHRAVAN LUCAS MD [facility] Start: 06-24-2022 End: 06-24-2022 Patient encounter procedure HASHER MACHINE OPERATOR-C Solis richi HASHER MACHINE OPERATOR Work Phone: [facility] Work Phone: Start: 06-03-2022 End: 06-03-2022 Patient encounter procedure WILLARD PERKINS [employer]NSH[employer]-INVASIVE MANAGER [facility] Start: 05-26-2022 End: 05-26-2022 ambulatory HASHER MACHINE OPERATOR-C Tea Ruiz HASHER MACHINE OPERATOR Work Phone: [facility] Work Phone: Start: 05-26-2022 End: 05-26-2022 Patient encounter procedure HASHER MACHINE OPERATOR-C Tea Luongs HASHER MACHINE OPERATOR Work Phone: [facility] Start: 05-21-2022 End: 05-21-2022 ambulatory HASHER MACHINE OPERATOR-C Tea Ruiz HASHER MACHINE OPERATOR Work Phone: [facility] Work Phone: Start: 05-21-2022 End: 05-21-2022 Patient encounter procedure HASHER MACHINE OPERATOR-C Tea Luongs HASHER MACHINE OPERATOR Work Phone: [facility] Start: 05-20-2022 End: 05-20-2022 ambulatory HASHER MACHINE OPERATOR-C Tea Ruiz HASHER MACHINE OPERATOR Work Phone: [facility] Work Phone: Start: 05-20-2022 End: 05-20-2022 Patient encounter procedure HASHER MACHINE OPERATOR-C Tea Ruiz HASHER MACHINE OPERATOR Work Phone: [facility] Start: 05-19-2022 End: 05-19-2022 ambulatory HASHER MACHINE OPERATOR-C Tea Ruiz HASHER MACHINE OPERATOR Work Phone: [facility] Work Phone: Start: 05-19-2022 End: 05-19-2022 Patient encounter procedure HASHER MACHINE OPERATOR-C Tea Luongs HASHER MACHINE OPERATOR Work Phone: [facility] Start: 05-18-2022 End: 05-18-2022 ambulatory HASHER MACHINE OPERATOR-C Tea Ruiz HASHER MACHINE OPERATOR Work Phone: [facility] Work Phone: Start: 05-18-2022 End: 05-18-2022 Patient encounter procedure HASHER MACHINE OPERATOR-C Tea Ruiz HASHER MACHINE OPERATOR Work Phone: [facility] Start: 05-17-2022 End: 05-17-2022 ambulatory HASHER MACHINE OPERATOR-C Tea Ruiz HASHER MACHINE OPERATOR Work Phone: [facility] Work Phone: Start: 05-17-2022 End: 05-17-2022 Patient encounter procedure HASHER MACHINE OPERATOR-C Tea Ruiz HASHER MACHINE OPERATOR Work Phone: [facility] Start: 05-16-2022 End: 05-16-2022 ambulatory HASHER MACHINE OPERATOR-C Tea Luongs HASHER MACHINE OPERATOR Work Phone: [facility] Work Phone: Start: 05-16-2022 End: 05-16-2022 Patient encounter procedure HASHER MACHINE OPERATOR-C Tea Luongs HASHER MACHINE OPERATOR Work Phone: [facility] Start: 05-15-2022 End: 05-15-2022 ambulatory HASHER MACHINE OPERATOR-C Tea Luongs HASHER MACHINE OPERATOR Work Phone: [facility] Work Phone: Start: 05-15-2022 End: 05-15-2022 Patient encounter procedure HASHER MACHINE OPERATOR-C Tea Luongs HASHER MACHINE OPERATOR Work Phone: [facility] Start: 05-14-2022 End: 05-14-2022 ambulatory HASHER MACHINE OPERATOR-C Tea Luongs HASHER MACHINE OPERATOR Work Phone: [facility] Work Phone: Start: 05-14-2022 End: 05-14-2022 Patient encounter procedure HASHER MACHINE OPERATOR-C Tea Luongs HASHER MACHINE OPERATOR Work Phone: [facility] Start: 05-14-2022 End: 05-14-2022 Emergency department patient visit HASHER MACHINE OPERATOR-C Tea Luongs HASHER MACHINE OPERATOR Work Phone: [facility] Start: 05-13-2022 End: 05-13-2022 Emergency department patient visit DR DAYTON BRIONES MD [facility] Start: 05-13-2022 End: 05-13-2022 ambulatory HASHER MACHINE OPERATOR-C Tea Ruiz HASHER MACHINE OPERATOR Work Phone: [facility] Work Phone: Start: 05-13-2022 End: 05-13-2022 Patient encounter procedure HASHER MACHINE OPERATOR-C Tea Ruiz HASHER MACHINE OPERATOR Work Phone: [facility] Start: 05-12-2022 End: 05-12-2022 ambulatory HASHER MACHINE OPERATOR-C Tea Ruiz HASHER MACHINE OPERATOR Work Phone: [facility] Work Phone: Start: 05-12-2022 End: 05-12-2022 Patient encounter procedure HASHER MACHINE OPERATOR-C Tea Ruiz HASHER MACHINE OPERATOR Work Phone: [facility] Start: 05-11-2022 End: 05-11-2022 ambulatory HASHER MACHINE OPERATOR-C Tea Ruiz HASHER MACHINE OPERATOR Work Phone: [facility] Work Phone: Start: 05-11-2022 End: 05-11-2022 Patient encounter procedure HASHER MACHINE OPERATOR-C Tea Ruiz HASHER MACHINE OPERATOR [facility] Start: 05-10-2022 End: 05-10-2022 ambulatory HASHER MACHINE OPERATOR-C Tea Ruiz HASHER MACHINE OPERATOR Work Phone: [facility] Work Phone: Start: 05-10-2022 End: 05-10-2022 Patient encounter procedure HASHER MACHINE OPERATOR-C Tea Ruiz HASHER MACHINE OPERATOR Work Phone: [facility] Start: 05-09-2022 End: 05-09-2022 ambulatory HASHER MACHINE OPERATOR-C Tea Ruiz HASHER MACHINE OPERATOR Work Phone: [facility] Work Phone: Start: 05-09-2022 End: 05-09-2022 Patient encounter procedure HASHER MACHINE OPERATOR-C Tea Ruiz HASHER MACHINE OPERATOR [facility] Start: 05-08-2022 End: 05-08-2022 ambulatory HASHER MACHINE OPERATOR-C Tea Ruiz HASHER MACHINE OPERATOR Work Phone: [facility] Work Phone: Start: 05-08-2022 End: 05-08-2022 Patient encounter procedure HASHER MACHINE OPERATOR-C Tea Ruiz HASHER MACHINE OPERATOR Work Phone: [facility] Start: 05-02-2022 End: 05-07-2022 Evaluation and management of inpatient DR ALEXIS A JAMES MD [facility] Start: 04-29-2022 End: 05-02-2022 Evaluation and management of inpatient YOHANNES BOWIE [employer]-INVASIVE MANAGER [facility] Start: 04-28-2022 End: 04-28-2022 Emergency department patient visit DR ALLEN GREER MD [facility] Start: 04-27-2022 End: 04-27-2022 Patient encounter procedure SHRAVAN LUCAS MD [facility] Start: 04-20-2022 End: 04-20-2022 Patient encounter procedure HASHER MACHINE OPERATOR-C Tea Ruiz HASHER MACHINE OPERATOR Work Phone: [facility] Start: 04-13-2022 End: 04-13-2022 Patient encounter procedure HASHER MACHINE OPERATOR-C Tea Ruiz HASHER MACHINE OPERATOR Work Phone: [facility] Start: 04-08-2022 End: 04-08-2022 ambulatory HASHER MACHINE OPERATOR-C Tea Ruiz HASHER MACHINE OPERATOR Work Phone: [facility] Work Phone: Start: 04-08-2022 End: 04-08-2022 Patient encounter procedure HASHER MACHINE OPERATOR-C Tea Ruiz HASHER MACHINE OPERATOR Work Phone: [facility] Start: 03-19-2022 End: 03-19-2022 Patient encounter procedure HASHER MACHINE OPERATOR-C Tea Ruiz HASHER MACHINE OPERATOR Work Phone: [facility] Start: 02-10-2022 Non-patient / Non-visit HASHER MACHINE OPERATOR-C Alexandre Ruiz HASHER MACHINE OPERATOR Work Phone: [facility] Start: 01-30-2022 End: 01-30-2022 Patient encounter procedure HASHER MACHINE OPERATORNelda Ruiz HASHER MACHINE OPERATOR Work Phone: [facility] Start: 01-29-2022 End: 01-29-2022 Patient encounter procedure SOLIS IZAGUIRREADILSON M[employer]NSHIP-INVASIVE MANAGER [facility] Start: 01-21-2022 End: 01-21-2022 Patient encounter procedure WILLARD PERKINS [employer]NSHIP-INVASIVE MANAGER [facility] Start: 01-01-2022 End: 01-01-2022 Patient encounter procedure SOLIS IZAGUIRREADILSON [employer] INTERNSHIP-INVASIVE MANAGER [facility] Start: 12-17-2021 End: 12-17-2021 Patient encounter procedure WILLARD PERKINS [employer]HIP-INVASIVE MANAGER [facility] Start: 11-21-2021 Telephone encounter Tea dixon M[employer]IC[employer]URAL INTERNSHIP.ENVIRONMENTAL SERVICES PROJECT MANAGER Work Phone: [facility] [place] Comment on above: FYI-No Action Needed Start: 11-21-2021 End: 11-21-2021 Emergency department patient visit HASHER MACHINE OPERATORNelda Ruiz HASHER MACHINE OPERATOR Work Phone: [facility] Start: 11-21-2021 End: 11-21-2021 Patient encounter procedure Tea Ruiz [employer].ENVIRONMENTAL SERVICES PROJECT MANAGER Work Phone: [facility] [place] Comment on above: Chronic pain syndrom e (Primary Dx); Personal history of scleroderma; Acquired arm deformity, left; Acquired deformity of left lower leg Start: 11-13-2021 End: 11-13-2021 Patient encounter procedure HASHER MACHINE OPERATORNelda Ruiz HASHER MACHINE OPERATOR Work Phone: [facility] Start: 11-06-2021 End: 11-06-2021 ambulatory MARCELLUS ROSADO Facility:[facility] Start: 11-06-2021 End: 11-06-2021 Patient encounter procedure Marcellus Rosado MD Work Phone: [facility] Comment on above: Lumbar spondylosis ( Primary Dx); Thoracic spondylosis without myelopathy; 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 Start: 10-30-2021 End: 10-30-2021 Patient encounter procedure LORETTA Ruiz HASHER MACHINE OPERATOR Work Phone: [facility] Start: 10-30-2021 End: 10-30-2021 Patient encounter procedure Andrew Jenkins Work Phone: Podiatry Comment on above: Equinus contracture of ankle (Primary Dx); Pes cavus; Callus of foot; Acquired deformity of left lower leg; Chronic pain syndrome; Personal history of scleroderma Start: 10-28-2021 Telephone encounter Grace feng PA-C Work Phone: [facility] Comment on above: Results Start: 10-27-2021 End: 10-27-2021 Patient encounter procedure Ginny Costa APRN.INVASIVE MANAGER Work Phone: [facility] Comment on above: Right calf pain (Rachele hailey Dx); Cellulitis of right lower leg; Itching; Elevated blood pressure reading without diagnosis of hypertension Start: 10-15-2021 End: 10-15-2021 Patient encounter procedure LORETTA Ruiz HASHER MACHINE OPERATOR Work Phone: [facility] Start: 10-06-2021 Refill Tea Ruiz APRN.ENVIRONMENTAL SERVICES PROJECT MANAGER Work Phone: [facility] [place] Comment on above: Refill Request Start: 10-02-2021 End: 10-02-2021 ambulatory TORIBIO ERNANDEZ Facility:[facility] Start: 09-20-2021 Refill Toribio cho MD Work Phone: [facility] [place] Comment on above: Refill Request Refill Request (open ed in error ) Start: 09-16-2021 End: 09-16-2021 Patient encounter procedure Gregorio Charles [employer].INVASIVE MANAGER Work Phone: [facility] Comment on above: Ear infection (Prima ry Dx) Start: 08-12-2021 End: 08-12-2021 Patient encounter procedure Tea Ruiz [employer].ENVIRONMENTAL SERVICES PROJECT MANAGER Work Phone: [facility] [place] Comment on above: Chronic pain syndrom e [...] Toribio abbasi MD Work Phone: Family [facility] [place] Comment on above: Appointment Start: 08-08-2021 End: 08-08-2021 [facility] Start: 08-07-2021 Telephone encounter Tea dixon [employer].ENVIRONMENTAL SERVICES PROJECT MANAGER Work Phone: [address] [place] [address] Comment on above: Refill Request Procedures Date Procedure Procedure Detail Performing Clinician Start: 10-19-2024 Complete blood count with white cell differential, automated Jeri Trinidad [employer] - INVASIVE MANAGER Work Phone: Start: 10-07-2024 MRI of joint of lowe r extremity Jeri Trinidad Work Phone: Start: 05-31-2024 Drug tst prsmv read instrmnt asstd dir opt obs Jeri Trinidad [employer] - INVASIVE MANAGER Work Phone: Start: 05-31-2024 Microscopic observat ion [Identifier] in Cervix by Cyto stain Jeri Trinidad [employer] - INVASIVE MANAGER Work Phone: Start: 03-31-2024 Lipid 1996 panel - S epifanio or Plasma Jose D Goodman MD Work Phone: Start: 03-04-2023 Comprehensive metabo lic panel Jeri Trinidad [employer] - INVASIVE MANAGER Work Phone: Start: 03-04-2023 Lipid panel Jeri Catherine identhal [employer] - INVASIVE MANAGER Work Phone: Start: 03-04-2023 Lipid 1996 panel - S epifanio or Plasma Jose D Goodman MD Work Phone: Start: 03-04-2023 Mammography Jeri Dorene identhal [employer] - INVASIVE MANAGER Work Phone: Start: 02-15-2023 SARS-CoV-2 & FLU Ant igen (Rapid) Dr. Rayo Cantu Work Phone: Start: 02-03-2023 Drug tst prsmv read instrmnt asstd dir opt obs Jeri Yuongbloodal [employer] - INVASIVE MANAGER Work Phone: Start: 12-23-2022 Plain X-ray of shoulder Dr. Rayo Cantu Work Phone: Start: 06-24-2022 X-ray of lumbar spin e, two or three views HASHER MACHINE OPERATOR-C Solis richi HASHER MACHINE OPERATOR Work Phone: Start: 04-20-2022 Injection of steroid into hip joint SHRAVAN LUCAS MD Comment on above: [place] Start: 04-08-2022 MRI of joint of lowe r extremity HASHER MACHINE OPERATOR-C Tea Ruiz HASHER MACHINE OPERATOR Work Phone: Start: 01-30-2022 Plain X-ray of clavicle HASHER MACHINE OPERATOR-C Tea Ruiz HASHER MACHINE OPERATOR Work Phone: Start: 01-30-2022 Plain x-ray of pelvi s and lower extremity HASHER MACHINE OPERATOR-C Tea Ruiz HASHER MACHINE OPERATOR Work Phone: Start: 01-29-2022 Lipid 1996 panel - S epifanio or Plasma Jeri Trinidad [employer] - INVASIVE MANAGER Work Phone: Start: 01-29-2022 Mammography Jeri Dorene identhal [employer] - INVASIVE MANAGER Work Phone: Start: 09-29-2022 Plain X-ray of clavicle HASHER MACHINE OPERATOR-C Tea Luongs HASHER MACHINE OPERATOR Work Phone: Start: 11-12-2021 Injection into shoul rubi joint WILLARD PERKINS [employer]-INVASIVE MANAGER Comment on above: [facility], s teroid Start: 10-15-2021 Plain X-ray of shoulder HASHER MACHINE OPERATOR-C Tea Luongs HASHER MACHINE OPERATOR Work Phone: Start: 10-07-2021 Lipid 1996 panel - S epifanio or Plasma Sabrina Tineo MD Work Phone: Start: 10-02-2021 Adult depression scr eening assessment Tea Luongs [employer].ENVIRONMENTAL SERVICES PROJECT MANAGER Work Phone: Start: 08-12-2021 Adult depression scr eening assessment Tea Ruiz [employer].ENVIRONMENTAL SERVICES PROJECT MANAGER Work Phone: Start: 06-15-2020 Destructive procedure C AMITA PERKINS [employer] INTERNS[employer]IP-INVASIVE MANAGER Start: 02-16-2016 Medial epicondylitis of elbow joint (disorder) WILLARD PERKINS [employer] INTERNSHIP-INVASIVE MANAGER Comment on above: right arm Start: 02-15-2015 Carpal tunnel syndro me (disorder) WILLRAD PERKINS [employer] INTERNSHIP-INVASIVE MANAGER Comment on above: right arm Start: 02-15-2013 Blind left eye (disorder) WILLARD PERKINS [employer] INTERNSHIP-INVASIVE MANAGER Comment on above: blind left eye stitc hed closed Start: 02-16-1988 Transplanted skin (b chico structure) WILLARD PERKINS [employer] INTERNSH[employer]-INVASIVE MANAGER Comment on above: skin graft of left a rm from right leg Miscellaneous (quali fier value) WILLARD PERKINS [employer] INTERNSHIP-INVASIVE MANAGER Comment on above: places 2 kayla on each on right knee to prevent knee and leg from growing Plan of Treatment Date Care Activity Detail Author Start: 06-08-2047 RSV Immunization for Adults (1 - 1-dose 75+ series) RSV Immunization for Adults (1 - 1-dose 75+ series) [facility] Start: 2032 RSV Immunization aged 60 or older (1 - 1-dose 60+ series) RSV Immunization aged 60 or older (1 - 1-dose 60+ series) [facility] Start: 05-31-2029 Screening for malignant neoplasm of cervix [facility] Start: 03-31-2029 Lipid panel Lipid Panel [facility] Start: 03-04-2028 Lipid panel Lipid Panel [facility] Start: 06-01-2027 Screening for malignant neoplasm of cervix Pap Smear [facility] Start: 01-29-2027 Lipid panel Lipid Panel [facility] Start: 10-07-2026 Lipid 1996 panel - Serum or Plasma Lipid Screening [facility] Start: 10-07-2026 LIPID SCREEN LIPID SCREEN [facility] Start: 04-13-2025 Medicare Annual Wellness (AWV) Medicare Annual Wellness (AWV) [facility] Start: 03-15-2025 End: 03-15-2025 Patient encounter procedure 03/15/2025 3:00 PM EST Office Visit [facility] [address] [place] [address] Jose D Goodman MD [address] [place] [address] [facility] Start: 11-30-2024 End: 11-30-2024 Patient encounter procedure 11/30/2024 3:40 PM EDT [facility] [address] [facility] [address] [place] [address] Jeri Trinidad, [employer] - INVASIVE MANAGER [address] [place] [address] [facility] Start: 11-30-2024 Depression Monitoring Depression Monitoring [facility] Start: 11-23-2024 End: 11-23-2024 Patient encounter procedure 11/23/2024 10:30 AM EDT Procedure Visit [facility] [address] [place] [address] [place] [address] Jimi Nelson MD [address] [place] [address] [facility] Start: 10-16-2024 Influenza vaccination Influenza Vaccine (#1) [facility] Start: 10-15-2024 [facility] Start: 10-07-2024 DIABETES SCREEN DIABETES SCREEN [facility] Start: 10-07-2024 Diabetes Screening Diabetes Screening [facility] Start: 08-30-2024 End: 08-30-2024 Patient encounter procedure 08/30/2024 3:20 PM EDT Office Visit [facility] [address] [place] [address] [place] [address] Jeri Trinidad, [employer] - INVASIVE MANAGER [address] [place] [address] [place] [address] [facility] Start: 08-30-2024 End: 08-30-2025 DXA Skeletal system.axial Views for bone density DEXA bone density axial skeleton Imaging Routine Osteopetrosis Osteoporosis, unspecified osteoporosis type, unspecified pathological fracture presence Expected: 08/30/2024, Expires: 08/30/[address] [facility] Work Phone: Comment on above: Expected: 08/30/2024, Expires: Start: 05-31-2024 End: 05-31-2024 Patient encounter procedure 05/31/2024 3:00 PM EDT Office Visit [facility] [address] [place] [address] [place] [address] BridenthalGiaJeir, [employer] - INVASIVE MANAGER [address] [place] [address] [place] [address] [facility] Start: 05-02-2024 Depression Monitoring Depression Monitoring [facility] Start: 04-10-2024 End: 04-10-2024 Patient encounter procedure 04/10/2024 3:20 PM EST Office Visit [facility] [address] [place] [address] Bridenthal, Jeri, [employer] - INVASIVE MANAGER [address] [place] [address] [facility] Start: 04-03-2024 Medicare Advantage Annual Wellness Visit (AWV) Medicare [facility] Annual Wellness Visit (AWV) [facility] Start: 04-03-2024 Medicare Annual Wellness (AWV) Medicare Annual Wellness (AWV) [facility] Start: 03-14-2024 End: 03-14-2024 Patient encounter procedure 03/14/2024 2:40 PM EST [facility] [address] [place] [address] Bridenthal, Jeri, [employer] - INVASIVE MANAGER [address] [place] [address] [facility] Start: 03-14-2024 End: 03-14-2025 25-hydroxyvitamin D3 [Mass/volume] in Serum or Plasma Vitamin D Deficiency Screening (Vit D 25) Lab Routine Vitamin D deficiency Expected: 03/14/2024 (Approximate), Expires: 03/14/[address] [facility] Comment on above: Expected: 03/14/2024 (Approximate), Expi res: 03/14/2025 Start: 03-14-2024 End: 03-14-2025 CBC W Auto Differential panel - Blood CBC auto differential Lab Routine Screening for deficiency anemia Expected: 03/14/2024 (Approximate), Expires: 03/14/[address] [facility] Work Phone: Comment on above: Expected: 03/14/2024 (Approximate), Expi res: 03/14/2025 Start: 03-14-2024 End: 03-14-2025 Comprehensive metabolic 1998 panel - Serum or Plasma Comprehensive metabolic panel Lab Routine Primary hypertension Expected: 03/14/2024 (Approximate), Expires: 03/14/[address] [facility] Comment on above: Expected: 03/14/2024 (Approximate), Expi res: 03/14/2025 Start: 03-14-2024 End: 03-14-2025 Lipid 1996 panel - Serum or Plasma Lipid panel Lab Routine Primary hypertension Hypercholesterolemia Expected: 03/14/2024 (Approximate), Expires: 03/14/2025 [facility] Comment on above: Expected: 03/14/2024 (Approximate), Expi res: 03/14/2025 Start: 03-14-2024 End: 03-14-2025 Magnesium [Mass/volume] in Serum or Plasma Magnesium Lab Routine Osteopetrosis Expected: 03/14/2024 (Approximate), Expires: 03/14/2025 [facility] Comment on above: Expected: 03/14/2024 (Approximate), Expi res: 03/14/2025 Start: 03-14-2024 End: 03-14-2025 Parathyrin.intact [Mass/volume] in Serum or Plasma PTH, intact Lab Routine Osteopetrosis Expected: 03/14/2024 (Approximate), Expires: 03/14/2025 [facility] Comment on above: Expected: 03/14/2024 (Approximate), Expi res: 03/14/2025 Start: 03-14-2024 End: 03-14-2025 Phosphate [Moles/volume] in Serum or Plasma Phosphorus Lab Routine Osteopetrosis Expected: 03/14/2024 (Approximate), Expires: 03/14/2025 [facility] Comment on above: Expected: 03/14/2024 (Approximate), Expi res: 03/14/2025 Start: 03-14-2024 End: 03-14-2025 Thyrotropin [Units/volume] in Serum or Plasma TSH Lab Routine Primary hypertension Osteopetrosis Expected: 03/14/2024 (Approximate), Expires: 03/14/2025 [facility] Comment on above: Expected: 03/14/2024 (Approximate), Expi res: 03/14/2025 Start: 03-14-2024 End: 05-12-2025 US Breast - left limited Left breast US limited Imaging Routine Abnormal mammography Expected: 03/14/2024, Expires: 05/12/2025 [facility] Comment on above: Expected: 03/14/2024, Expires: Start: 03-04-2024 Screening for malignant neoplasm of breast Mammogram [facility] Start: 03-02-2024 End: 03-02-2024 Patient encounter procedure 03/02/2024 2:40 PM EST Office Visit [facility] [place] [address] [place] [facility] [place] [address] BridenthJeri long, [employer] - INVASIVE MANAGER [address] [place] [address] [facility] Start: 02-16-2024 Medicare Advantage Annual Wellness Visit Medicare Advantage Annual Wellness Visit [facility] Start: 02-04-2024 COVID-19 Vaccine (#1) COVID-19 Vaccine (#1) [facility] Comment on above: Postponed from 1972 (Patient Refus ed) Start: 02-04-2024 COVID-19 Vaccine ( season) COVID-19 Vaccine ( season) [facility] Comment on above: Postponed from 10/16/2022 (Patient Refus ed) Start: 02-04-2024 DTaP/Tdap/Td Vaccines (1 - Tdap) DTaP/Tdap/Td Vaccines (1 - Tdap) [facility] Comment on above: Postponed from 06/08/1991 (Patient Refus ed) Start: 02-04-2024 Hepatitis B Vaccines (1 of 3 - 19+ 3-dose series) Hepatitis B Vaccines (1 of 3 - 19+ 3-dose series) [facility] Comment on above: Postponed from 06/08/1991 (Patient Refus ed) Start: 02-04-2024 Hepatitis B Vaccines (1 of 3 - 3-dose series) Hepatitis B Vaccines (1 of 3 - 3-dose series) [facility] Comment on above: Postponed from 1972 (Patient Refus ed) Start: 02-04-2024 HIV screening HIV Screening [facility] Comment on above: Postponed from 1972 (Patient Refus ed) Start: 02-04-2024 Zoster Vaccines (1 of 2) Zoster Vaccines (1 of 2) [facility] Comment on above: Postponed from 2022 (Patient Refus ed) Start: 01-21-2024 Screening for osteoporosis Bone Density Scan [facility] Start: 01-11-2024 End: 01-11-2024 Patient encounter procedure 01/11/2024 3:20 PM EST Office Visit [facility] [address] [place] [address] [place] [address] Bridenthal, Jeri, [employer] - INVASIVE MANAGER [address] [place] [address] [place] [address] [facility] Start: 12-02-2023 End: 12-02-2023 Patient encounter procedure 12/02/2023 3:20 PM EDT Office Visit [facility] [address] [place] [address] [place] [address] Bridenthal, Jeri, [employer] - INVASIVE MANAGER [address] [place] [address] [place] [address] [facility] Start: 11-03-2023 End: 11-03-2023 Patient encounter procedure [facility] Start: 11-03-2023 End: 01-02-2025 DBT Breast - bilateral screening Bilateral screening mammogram with tomosynthesis Imaging Routine Encounter for screening mammogram for malignant neoplasm of breast Expected: 11/03/2023, Expires: 01/02/2025 [facility] Work Phone: Comment on above: Expected: 11/03/2023, Expires: Start: 10-26-2023 End: 10-26-2023 Patient encounter procedure 10/26/2023 2:00 PM EDT Office Visit [facility] [address] [place] [id number] Jaison Guo MD [address] [facility] [address] [place] [id number] [facility] Start: 10-17-2023 COVID-19 Vaccine ( season) COVID-19 Vaccine () [facility] Start: 10-17-2023 Influenza vaccination Influenza Vaccine (#1) [facility] Start: 10-06-2023 End: 10-06-2023 Patient encounter procedure 10/06/2023 3:20 PM EDT Office Visit [facility] [address] [place] [address] [place] [address] Bridenthal, Jeri, [employer] - INVASIVE MANAGER [address] [place] [address] [facility] Start: 09-22-2023 End: 09-22-2023 Patient encounter procedure 09/22/2023 3:20 PM EDT Office Visit [facility] [address] [place] [address] Bridenthal, Jeri, [employer] - INVASIVE MANAGER [address] [place] [address] [place] [address] [facility] Start: 09-09-2023 End: 09-09-2023 Patient encounter procedure 09/09/2023 3:20 PM EDT Office Visit [facility] [address] [place] [address] [place] [address] Bridenthal, Jeri, [employer] - INVASIVE MANAGER [address] [place] [address] [place] [address] [facility] Start: 08-12-2023 End: 08-12-2023 Patient encounter procedure 08/12/2023 3:00 PM EDT Office Visit [facility] [place] [address] [place] [address] [address] [facility] [place] [address] [facility] [place] Start: 08-12-2023 End: 02-11-2024 25-hydroxyvitamin D3 [Mass/volume] in Serum or Plasma Vitamin D Deficiency Screening (Vit D 25) Lab Routine Age-related osteoporosis without current pathological fracture Vitamin D deficiency Expected: 08/12/2023 (Approximate), Expires: 02/11/2024 [facility] Comment on above: Expected: 08/12/2023 (Approximate), Expi res: 02/11/2024 Start: 08-12-2023 End: 02-11-2024 Comprehensive metabolic 1998 panel - Serum or Plasma Comprehensive metabolic panel Lab Routine Age-related osteoporosis without current pathological fracture Vitamin D deficiency Expected: 08/12/2023 (Approximate), Expires: 02/11/2024 [facility] Comment on above: Expected: 08/12/2023 (Approximate), Expi res: 02/11/2024 Start: 08-12-2023 End: 08-11-2024 DXA Skeletal system.axial Views for bone density DEXA bone density axial skeleton Imaging Routine Age-related osteoporosis without current pathological fracture Vitamin D deficiency Expected: 08/12/2023, Expires: 08/11/2024 [facility] Work Phone: Comment on above: Expected: 08/12/2023, Expires: Start: 08-12-2023 End: 02-11-2024 Magnesium [Mass/volume] in Serum or Plasma Magnesium Lab Routine Age-related osteoporosis without current pathological fracture Vitamin D deficiency Expected: 08/12/2023 (Approximate), Expires: 02/11/2024 [facility] Comment on above: Expected: 08/12/2023 (Approximate), Expi res: 02/11/2024 Start: 08-12-2023 End: 02-11-2024 Parathyrin.intact [Mass/volume] in Serum or Plasma PTH, intact Lab Routine Age-related osteoporosis without current pathological fracture Vitamin D deficiency Expected: 08/12/2023 (Approximate), Expires: 02/11/2024 [facility] Comment on above: Expected: 08/12/2023 (Approximate), Expi res: 02/11/2024 Start: 08-12-2023 End: 02-11-2024 Phosphate [Moles/volume] in Serum or Plasma Phosphorus Lab Routine Age-related osteoporosis without current pathological fracture Vitamin D deficiency Expected: 08/12/2023 (Approximate), Expires: 02/11/[address] [facility] Comment on above: Expected: 08/12/2023 (Approximate), Expi res: 02/11/2024 Start: 08-12-2023 End: 02-11-2024 Thyrotropin [Units/volume] in Serum or Plasma TSH Lab Routine Fatigue, unspecified type Expected: 08/12/2023 (Approximate), Expires: 02/11/[address] [facility] Comment on above: Expected: 08/12/2023 (Approximate), Expi res: 02/11/2024 Start: 07-28-2023 End: 07-28-2023 Patient encounter procedure 07/28/2023 3:20 PM EDT Office Visit [facility] [address] [place], [place] [id number] Jeri Trinidad, [employer] - INVASIVE MANAGER [address] [place] [id number] [facility] Start: 07-08-2023 End: 07-08-2023 Patient encounter procedure [facility] Start: 06-29-2023 End: 06-29-2023 Patient encounter procedure 06/29/2023 3:15 PM EDT Appointment [facility] [address] [place] [id number] [facility] Start: 06-29-2023 Subsequent hospital visit by physician 06/29/2023 3:15 PM EDT Hospital Encounter [facility] [address] [place] [id number] [facility] Start: 06-24-2023 End: 06-24-2023 Patient encounter procedure [facility] Start: 05-26-2023 Depression Monitoring Depression Monitoring [facility] Start: 05-26-2023 Depresssion Monitoring Depresssion Monitoring [facility] Start: 05-20-2023 End: 05-19-2024 MR Lumbar spine WO contrast MR lumbar spine wo contrast Imaging Routine Mass on back Systemic sclerosis (HCC) Expected: 05/20/2023, Expires: 05/19/[address] [facility] Comment on above: Expected: 05/20/2023, Expires: Start: 05-20-2023 End: 05-19-2024 MR Thoracic spine WO contrast MR thoracic spine wo contrast Imaging Routine Mass on back Systemic sclerosis (HCC) Expected: 05/20/2023, Expires: 05/19/[address] [facility] Work Phone: Comment on above: Expected: 05/20/2023, Expires: Start: 05-18-2023 End: 05-18-2023 Patient encounter procedure 05/18/2023 2:40 PM EDT Office Visit [facility] [address] [place] [address] [place] [address] Jeri Trinidad, [employer] - INVASIVE MANAGER [address] [place] [address] [place] [address] [facility] Start: 05-10-2023 End: 05-10-2023 Patient encounter procedure 05/10/2023 3:00 PM EDT Office Visit [facility] [address] [place] [id number] Andree Gamble MD [address] [place] [address] [facility] Start: 05-05-2023 Diabetes mellitus screening Diabetes Screening [facility] Comment on above: Postponed from 1990 (Other Patient Reasons) Start: 04-29-2023 End: 04-29-2023 Patient encounter procedure 04/29/2023 3:20 PM EDT Office Visit [facility] [address] [place] [address] Jeri Trinidad, [employer] - INVASIVE MANAGER [address] [place] [address] [place] [address] [facility] Start: 04-04-2023 Screening for malignant neoplasm of colon Colorectal Cancer Screening [facility] Comment on above: Postponed from 1972 (Other Patient Reasons) Start: 03-31-2023 End: 03-31-2023 Patient encounter procedure 03/31/2023 3:20 PM EST Office Visit [facility] [address] [facility] [place] [address] Jeri Trinidad, [employer] - INVASIVE MANAGER [address] [place] [address] [facility] Start: 03-06-2023 Screening for malignant neoplasm of cervix Cervical Cancer Screening [facility] Comment on above: Postponed from 2002 (Other Patient Reasons) Start: 03-04-2023 End: 03-04-2024 25-hydroxyvitamin D3 [Mass/volume] in Serum or Plasma Vitamin D Deficiency Screening (Vit D 25) Lab Routine Encounter for vitamin deficiency screening Expected: 03/04/2023 (Approximate), Expires: 03/04/[address] [facility] Comment on above: Expected: 03/04/2023 (Approximate), Expi res: 03/04/2024 Start: 03-04-2023 End: 03-04-2024 CBC panel - Blood by Automated count CBC Lab Routine Screening for deficiency anemia Expected: 03/04/2023 (Approximate), Expires: 03/04/[address] [facility] Comment on above: Expected: 03/04/2023 (Approximate), Expi res: 03/04/2024 Start: 03-04-2023 End: 03-04-2024 Cobalamin (Vitamin B12) [Mass/volume] in Serum or Plasma Vitamin B12 Lab Routine Encounter for vitamin deficiency screening Expected: 03/04/2023 (Approximate), Expires: 03/04/[address] [facility] Comment on above: Expected: 03/04/2023 (Approximate), Expi res: 03/04/2024 Start: 03-04-2023 End: 03-04-2024 Comprehensive metabolic 1998 panel - Serum or Plasma Comprehensive metabolic panel Lab Routine Primary hypertension Expected: 03/04/2023 (Approximate), Expires: 03/04/2024 [facility] Work Phone: Comment on above: Expected: 03/04/2023 (Approximate), Expi res: 03/04/2024 Start: 03-04-2023 End: 03-04-2024 CT Chest for screening WO [facility] Comment on above: Expected: 03/04/2023, Expires: Start: 03-04-2023 End: 03-04-2024 Lipid 1996 panel - Serum or Plasma Lipid panel Lab Routine Hypercholesterolemia Expected: 03/04/2023 (Approximate), Expires: 03/04/[address] [facility] Comment on above: Expected: 03/04/2023 (Approximate), Expi res: 03/04/2024 Start: 03-04-2023 End: 03-04-2023 Patient encounter procedure 03/04/2023 9:00 AM EST Office Visit [facility] [address] [place] [address] [place] [address] AbilioenthalGiaJeri, [employer] - INVASIVE MANAGER [address] [place] [address] [place] [address] [facility] Start: 02-15-2023 [facility] Start: 02-03-2023 End: 02-03-2023 Patient encounter procedure 02/03/2023 3:00 PM EST Office Visit [facility] [address] [place] [address] [place] [address] BridenthalGiaJeri, [employer] - INVASIVE MANAGER [address] [place] [address] [place] [address] [facility] Start: 01-29-2023 Screening for malignant neoplasm of breast Mammogram [facility] Start: 01-20-2023 Screening for osteoporosis Bone Density Scan [facility] Start: 01-06-2023 End: 01-06-2023 Patient encounter procedure 01/06/2023 3:20 PM EST Office Visit [facility] [address] [place] [address] [place] [address] Bridenthal Jeri, [employer] - INVASIVE MANAGER [address] [place] [address] [place] [address] [facility] Start: 12-07-2022 End: 12-07-2022 Patient encounter procedure 12/07/2022 3:20 PM EDT Office Visit [facility] [address] [place] [address] [place] [address] [place] [address] Israel Trinidadca, [employer] - INVASIVE MANAGER [address] [place] [address] [facility] Start: 10-16-2022 Influenza vaccination Influenza Vaccine (#1) [facility] Start: 10-02-2022 Adult depression screening assessment DEPRESSION SCREENING [facility] Start: 08-31-2022 Procedure [facility] Start: 08-12-2022 Adult depression screening assessment DEPRESSION SCREENING [facility] Start: 06-24-2022 Patient referral [facility] Work Phone: Start: 2022 Screening for malignant neoplasm of lung Lung Cancer Screening [facility] Start: 2022 Shingrix Vaccine (1 of 2) Shingrix Vaccine (1 of 2) [facility] Start: 2022 Zoster Vaccines (1 of 2) Zoster Vaccines (1 of 2) [facility] Start: 05-21-2022 Iv infusion ther proph addl sequential to 1 hr TX/PROPH/DG ADDL SEQ IV INF [facility] Start: 05-21-2022 Iv infusion therapy/prophylaxis /dx 1st to 1 hr THER/PROPH/DIAG IV INF [facility] Start: 05-20-2022 Iv infusion ther proph addl sequential to 1 hr TX/PROPH/DG ADDL SEQ IV INF [facility] Start: 05-20-2022 Iv infusion therapy/prophylaxis /dx 1st to 1 hr THER/PROPH/DIAG IV INF [facility] Start: 05-19-2022 Iv infusion therapy/prophylaxis /dx 1st to 1 hr THER/PROPH/DIAG IV INF [facility] Start: 05-18-2022 Iv infusion therapy/prophylaxis /dx 1st to 1 hr THER/PROPH/DIAG IV INF [facility] Start: 05-16-2022 Iv infusion therapy/prophylaxis /dx 1st to 1 hr THER/PROPH/DIAG IV INF [facility] Start: 05-14-2022 Complete blood count [facility] Start: 05-14-2022 [facility] Start: 05-13-2022 Iv infusion hydration each additional hour HYDRATE IV INFUSION ADD-ON [facility] Start: 05-12-2022 Iv infusion therapy/prophylaxis /dx 1st to 1 hr THER/PROPH/DIAG IV INF [facility] Start: 05-12-2022 Therapeutic injection iv push each new drug TX/PRO/DX INJ NEW DRUG [facility] Start: 05-11-2022 Iv infusion therapy/prophylaxis /dx 1st to 1 hr THER/PROPH/DIAG IV INF [facility] Start: 05-11-2022 Therapeutic injection iv push each new drug TX/PRO/DX INJ NEW DRUG [facility] Start: 05-09-2022 Iv infusion therapy/prophylaxis /dx 1st to 1 hr THER/PROPH/DIAG IV INF [facility] Start: 05-08-2022 Iv infusion therapy/prophylaxis /dx 1st to 1 hr THER/PROPH/DIAG IV INF [facility] Start: 02-16-2022 Urine microalbumin profile DTAP,TDAP,TD (1 - Tdap) [facility] Comment on above: Postponed from 06/08/1991 (Insurance Cov erage) Start: 02-15-2022 Depression Assessment Depression Assessment [facility] Start: 02-10-2022 Patient referral [facility] Work Phone: Start: 01-30-2022 Patient referral [facility] Work Phone: Start: 10-16-2021 Influenza vaccination [facility] Start: 08-12-2021 End: 10-12-2021 CBC W Auto Differential panel - Blood CBC + DIFF Lab Routine Chronic pain syndrome Expected: 08/12/2021, Expires: 10/12/2021 [facility] Work Phone: Comment on above: Expected: 08/12/2021, Expires: Start: 08-12-2021 End: 10-12-2021 Cobalamin (Vitamin B12) [Mass/volume] in Serum or Plasma VITAMIN B12 BLOOD Lab Routine B12 deficiency Expected: 08/12/2021, Expires: 10/12/2021 [facility] Work Phone: Comment on above: Expected: 08/12/2021, Expires: 2 Start: 08-12-2021 End: 10-12-2021 Comprehensive metabolic 2000 panel - Serum or Plasma COMP METABOLIC PANEL Lab Routine Chronic pain syndrome Expected: 08/12/2021, Expires: 10/12/2021 [facility] Work Phone: Comment on above: Expected: 08/12/2021, Expires: 2 Start: 08-12-2021 End: 10-12-2021 Hepatitis C virus Ab [Presence] in Serum HEP C AB IA W/CONF SCRN Lab Routine Special screening examination for viral disease Expected: 08/12/2021, Expires: 10/12/2021 [facility] Work Phone: Comment on above: Expected: 08/12/2021, Expires: 2 Start: 08-12-2021 End: 10-12-2021 HIV 1+2 Ab [Presence] in Serum or Plasma by Immunoassay HIV 1 2 COMBO(AG/AB),WITH REFLEX TO DIFFERENTIATION Lab Routine Screening for HIV (human immunodeficiency virus) Expected: 08/12/2021, Expires: 10/12/2021 [facility] Work Phone: Comment on above: Expected: 08/12/2021, Expires: 2 Start: 08-12-2021 End: 10-12-2021 Lipid 1996 panel - Serum or Plasma LIPID PANEL BASIC Lab Routine Screening for lipid disorders History of hyperlipidemia Expected: 08/12/2021, Expires: 10/12/2021 [facility] Work Phone: Comment on above: Expected: 08/12/2021, Expires: 2 Start: 08-12-2021 End: 10-12-2021 LIPID PANEL, NONFASTING LIPID PANEL, NONFASTING Lab Routine Screening for lipid disorders History of hyperlipidemia Expected: 08/12/2021, Expires: 10/12/2021 [facility] Work Phone: Comment on above: Expected: 08/12/2021, Expires: 2 Start: 08-12-2021 End: 10-12-2021 PAIN PANEL, UR QUANT PAIN PANEL, UR QUANT Lab Routine Chronic pain syndrome Expected: 08/12/2021, Expires: 10/12/2021 [facility] Work Phone: Comment on above: Expected: 08/12/2021, Expires: 2 Start: 08-12-2021 End: 10-12-2021 TOX SCREEN ROUT UR TOX SCREEN ROUT UR Lab Routine Chronic pain syndrome Expected: 08/12/2021, Expires: 10/12/2021 [facility] Work Phone: Comment on above: Expected: 08/12/2021, Expires: 2 Start: 02-15-2021 DEPRESSION ASSESSMENT DEPRESSION ASSESSMENT [facility] Start: 2017 COLOGUARD (FIT-DNA) COLOGUARD (FIT-DNA) [facility] Start: 2017 Colonoscopy COLONOSCOPY [facility] Start: 2017 COLORECTAL CANCER SCREENING COLORECTAL CANCER SCREENING [facility] Start: [address] COLONOGRAPHY [facility] Start: 2017 DIABETES SCREEN DIABETES SCREEN [facility] Start: 2017 FECAL OCCULT BLOOD FECAL OCCULT BLOOD [facility] Start: 2017 LIPID SCREEN LIPID SCREEN [facility] Start: 2017 SIGMOIDOSCOPY SIGMOIDOSCOPY [facility] Start: 2012 Mammography [facility] Start: 2012 Screening for malignant neoplasm of breast Mammogram [facility] Start: 03-06-2008 PAP TESTING PAP TESTING [facility] Start: 2002 HPV TESTING HPV TESTING [facility] Start: 2002 Screening for malignant neoplasm of cervix [facility] Start: 1993 Screening for malignant neoplasm of cervix Pap Smear [facility] Start: 06-08-1991 DTaP/Tdap/Td Vaccines (1 - Tdap) DTaP/Tdap/Td Vaccines (1 - Tdap) [facility] Start: 06-08-1991 Hepatitis B Vaccines (1 of 3 - 19+ 3-dose series) Hepatitis B Vaccines (1 of 3 - 19+ 3-dose series) [facility] Start: 06-08-1991 Urine microalbumin profile [facility] Start: 1990 Diabetes mellitus screening Diabetes Screening [facility] Start: 1990 HEPATITIS C SCREENING HEPATITIS C SCREENING [facility] Start: 1990 Hepatitis C screening Hepatitis C Screening [facility] Start: 1990 HIV SCREENING HIV SCREENING [facility] Start: 1984 Adult depression screening assessment DEPRESSION SCREENING [facility] Start: 1978 PNEUMOCOCCAL (1 - PCV) PNEUMOCOCCAL (1 - PCV) [facility] Start: 1978 Pneumococcal vaccination Pneumococcal Vaccine (1 - PCV) [facility] Start: 1977 COVID-19 VACCINE (#1) COVID-19 VACCINE (#1) [facility] Start: 1973 MMR Vaccines (1 of 1 - Standard series) MMR Vaccines (1 of 1 - Standard series) [facility] Start: 1972 COVID-19 VACCINE (#1) COVID-19 VACCINE (#1) [facility] Start: 1972 HEPATITIS B (1 of 3 - 3-dose series) HEPATITIS B (1 of 3 - 3-dose series) [facility] Start: 1972 Hepatitis B Vaccine (1 of 3 - 3-dose series) Hepatitis B Vaccine (1 of 3 - 3-dose series) [facility] Start: 1972 Hepatitis B Vaccines (1 of 3 - 3-dose series) Hepatitis B Vaccines (1 of 3 - 3-dose series) [facility] Start: 1972 HIV screening HIV Screening [facility] Start: 1972 Lipid panel Lipid Panel [facility] Start: 1972 Medicare Advantage Annual Wellness Visit (AWV) Medicare Advantage Annual Wellness Visit (AWV) [facility] Start: 1972 Screening for malignant neoplasm of colon [facility] Start: 1972 Screening for osteoporosis Bone Density Scan [facility] Alanine aminotransfe rase [Enzymatic activity/volume] in Serum or Plasma [facility] Albumin [Mass/volume ] in Serum or Plasma [facility] Alkaline phosphatase [Enzymatic activity/volume] in Serum or Plasma [facility] Anion gap measurement [facility] Aspartate aminotransferase [Enzymatic activity/volume] in Serum or Plasma [facility] Bilirubin, total measurement [facility] BUN/Creatinine ratio [facility] Calcium [Mass/volume ] in Serum or Plasma [facility] Carbon dioxide, tota l [Moles/volume] in Serum or Plasma [facility] Chloride [Moles/volu me] in Serum or Plasma [facility] Creatinine [Moles/volume] in Serum or Plasma [facility] Cytology Cervical or vaginal smear or scraping study Pap Smear Pathology and Cytology Routine Screening for cervical cancer Ordered: 05/31/2024 [facility] Work Phone: Comment on above: Ordered: 05/31/2024 Erythrocyte sedimentation rate [facility] Glucose [Mass/volume ] in Serum or Plasma [facility] Hematocrit [Volume Fraction] of Blood [facility] Hemoglobin [Mass/vol ume] in Blood [facility] Leukocytes [#/volume ] in Blood [facility] Mean corpuscular hemoglobin concentration determination [facility] Mean corpuscular hemoglobin determination [facility] Measurement of renal function [facility] MR Lower Extremity Joint [facility] End: 07-08-2023 MR Lumbar spine WO contrast [facility] [place] Work Phone: Comment on above: Once for [...] Comment on above: Ordered: 07/07/2023 Patient Education [facility] Work Phone: Patient referral [facility] Work Phone: PFIZER-BIONTECH COVI D-19 VACCINE, AGE 12+ YR (MORALES TOP) PFIZER-BIONTECH COVID-19 VACCINE, AGE 12+ YR (MORALES TOP) Immunization/Injection Routine Encounter for immunization 1 Occurrences starting 08/12/2021 [facility] Work Phone: Comment on above: 1 Occurrences starting 08/12/2021 Platelets [#/volume] in Blood [facility] Pneumococcal vaccination PNEUMOC OCCAL VACCINE (PREVNAR 20) Immunization/Injection Routine Encounter for immunization 1 Occurrences starting 08/12/2021 [facility] Work Phone: Comment on above: 1 Occurrences starting 08/12/2021 Potassium [Moles/vol ume] in Serum or Plasma [facility] End: 12-18-2023 Radex spine lumbosacral 2/3 views XR LUMBAR GENERAL 3V AP/LAT/L5-S1 Radiology Routine Lumbar spondylosis Low back pain, unspecified back pain laterality, unspecified chronicity, unspecified whether sciatica present 1 Occurrences starting 11/18/2022 until 12/18/2023 [facility] Work Phone: Comment on above: 1 Occurrences starting 11/18/2022 until 12/18/2023 End: 12-18-2023 Radex spine thoracic 2 views XR THORACIC LIMITED 2V AP/LAT Radiology Routine Thoracic spondylosis without myelopathy 1 Occurrences starting 11/18/2022 until 12/18/2023 [facility] Work Phone: Comment on above: 1 Occurrences starting 11/18/2022 until 12/18/2023 Red blood cell count [facility] Red cell distributio n width determination [facility] End: 09-11-2022 Screening mammography bi 2-view breast inc cad CORBIN SCREENING Radiology Routine Encounter for screening mammogram for breast cancer 1 Occurrences starting 08/12/2021 until 09/11/2022 [facility] Work Phone: Comment on above: 1 Occurrences starting 08/12/2021 until 09/11/2022 Sodium [Moles/volume ] in Serum or Plasma [facility] Total protein measurement [facility] Urea nitrogen [Mass/volume] in Serum or Plasma [facility] End: 10-27-2022 US LEG VEIN DVT UNL VAS LAB US LEG VEIN DVT UNL VAS LAB Vascular Lab Routine Right calf pain 1 Occurrences starting 10/27/2021 until 10/27/2022 [facility] Work Phone: Comment on above: 1 Occurrences starting 10/27/2021 until 10/27/2022 Vancomycin [Mass/vol ume] in Serum or Plasma --trough [facility] Immunizations Immunization Date Immunization Notes Care Provider [facility] 12-09-2023 influenza, seasonal, injectable, preservative free Jeri Bridenthal [employer] - INVASIVE MANAGER Work Phone: [facility] 12-09-2023 influenza virus vaccine, unspecified formulation Jeri Bridenthal M[employer] INTER[employer] - INVASIVE MANAGER Work Phone: [facility] 12-07-2022 Seasonal, quadrivale nt, recombinant, injectable influenza vaccine, preservative free Jose D Goodman MD Work Phone: [facility] 12-07-2022 influenza virus vaccine, unspecified formulation [facility] Schedule [facility] 12-30-2021 Pneumococcal conjuga te PCV20, polysaccharide [id number] conjugate, adjuvant, PF; Translations: [Prevnar 20] SOLIS SHELL M[employer]IC[employer] INTERNSHIP-INVASIVE MANAGER [facility] 11-24-2021 influenza, injectabl e, quadrivalent, contains preservative; Translations: [Fluarix PF Quadrivalent ] WILLARD PERKINS M[employer]ICULTURAL INTERNSHIP-INVASIVE MANAGER [facility] 11-24-2021 influenza, injectabl e, quadrivalent, preservative free Jeri Bridenthal M[employer] INTER[employer]HIP - INVASIVE MANAGER Work Phone: [facility] 11-24-2021 influenza virus vaccine, unspecified formulation Sabrina Tineo MD Work Phone: [facility] 10-22-2016 influenza virus vaccine, unspecified formulation WILLARD MADDIE M[employer]IC[employer] INTERNSHIP-INVASIVE MANAGER [facility] 10-22-2016 influenza, injectabl e, quadrivalent, preservative free Jerilakshmi Trinidad M[employer]ICULTURAL INTERNSHIP - INVASIVE MANAGER Work Phone: [facility] Payers Date Payer Category Payer Self-pay 2022 Medicare O [id number] 2021 Medicaid [id number] 2021 Medicaid [id number] 2021 Unknown [id number] 2021 Private Health Insurance [id number] 2021 Medicare UHC AARP MEDICAR E UHC AARP MEDICARE HMO [id number] 2021-Present [phone] [address] [address] [place] [address] O [id number] 2021 Medicare MEDICARE ADVANTA GE GENERIC MEDICARE ADVANTAGE GENERIC [id number] 2021-Present [phone] [address] [address] [place] [address] Indemnity [id number] 1998 Medicare [id number] 1998 Medicare [id number] 1972 Unknown [id number] 627 1972 Unknown [id number]. 627 1972 Unknown [id number]. 627 1972 Unknown [id number]. 627 1972 Unknown [id number]. 627 1972 Unknown [id number]. 627 Unknown [facility] MCRDUAL COMP O [id number] Unknown [id number] 462 Unknown [id number] 462 Unknown [id number] 462 Unknown [id number]. 462 Unknown [id number] 462 Unknown [id number] 462 Unknown [id number] 462 Social History Date Type Detail Facility [facility] Work Phone: Start: 08-08-2021 End: 02-15-2023 Tobacco smoking status FLIS Unknown if ever smoked [facility] Start: 1970 Sex Assigned At Female [facility] Start: 08-12-2021 End: 08-12-2023 Tobacco smoking status NHIS Smokes tobacco daily [facility] Work Phone: History of tobacco use Cigarette Smoker [facility] Work Phone: Start: 02-03-2010 End: 11-18-2022 Alcohol intake Current non-drinker of alcohol (finding) [facility] Start: 1970 Sex Assigned At Not on file [facility] Start: 07-26-2021 End: 08-05-2021 Exposure to SARS-CoV-2 (event) Unable to assess [facility] Work Phone: Start: 08-02-2021 End: 11-21-2021 Exposure to SARS-CoV-2 (event) Not sure [facility] Work Phone: Start: 08-12-2021 End: 11-03-2023 Cigarettes smoked current (pack per day) - Reported 0.5 [facility] Start: 08-12-2021 End: 08-12-2023 Tobacco use and exposure Smokeless tobacco non-user [facility] Work Phone: Start: 11-24-2021 Tobacco smoking status Heavy t obacco smoker (finding) [facility] Start: 05-12-2022 End: 08-11-2022 Tobacco smoking status Light tobacco smoker (finding) [facility] Start: 11-18-2022 End: 11-03-2023 Tobacco use panel [facility] Adult Depression Screening Assessment 0 [facility] Start: 11-24-2022 End: 10-26-2024 Alcohol intake Ex-drinker (finding) [facility] (I/We) worried wheth er (my/our) food would run out before (I/we) got money to buy more. Never true Agilys In the past 12 month s, was there a time when you were not able to pay the mortgage or rent on time? No [facility] Start: 06-29-2018 End: 07-22-2022 Sex Female (finding) [facility] Sexual Orientation Ronny zacarias [facility] NEGATED: Highlighted row [facility] Functional Status Date Assessment Result [...] be. She plans to consult with an [employer] gentleman who makes her shoes. Cardiovascular screen: [...] and this may be an appropriate recommendation. [facility] 07-03-2022 Functional Status Objective: Cardiovascular screen: BP: 146/88 (R arm only per patient) HR: 76 BPM O2 sat: 98% Gait: Atalgic with lateral trunk shift L, ambulates with narrow base of support and short shuffling steps. hip ROM and strength: see chart Obsevation: Gregorio does appear to have significant atrophy, L shoe is built up to increase leg length [facility] 05-13-2022 Functional Status Room check performed [facility] 05-07-2022 Functional Status Room located n ear nursing station, Door open, Bathroom light on, Non-Slip footwear, Room check performed [facility] 05-07-2022 Functional Status [facility] 05-07-2022 Functional Status bilateral knee high [facility] 05-07-2022 Functional Status [facility] 05-07-2022 Functional Status [facility] 05-06-2022 Functional Status Skin Care Prev entative Intervention(s) heel(s)s elevated [facility] 05-06-2022 Functional Status Lunch Percent 50 [facility] 05-06-2022 Functional Status Ronny [facility] 05-05-2022 Functional Status Ronny [facility] 05-05-2022 Functional Status SCD On/Re-appl ied bilateral knee high [facility] 05-05-2022 Functional Status Ronny [facility] 05-05-2022 Functional Status Collaborated w ith OT to gather information regarding PLOF and home set-up (05/05/22) [facility] 05-05-2022 Functional Status Ronny [facility] 05-04-2022 Functional Status None [facility] 05-04-2022 Functional Status Ronny [facility] 05-04-2022 Functional Status Apartment Ronny [facility] 05-04-2022 Functional Status Ronny [facility] 05-03-2022 Functional Status [facility] Minimum roxie tance [facility] 05-03-2022 Functional Status Ronny [facility] 05-03-2022 Functional Status Assistive Equi pment elevated on pillows [facility] 05-03-2022 Functional Status Ronny [facility] 05-03-2022 Functional Status Ronny [facility] 05-02-2022 Functional Status Ronny [facility] 05-02-2022 Functional Status Ronny [facility] 05-02-2022 Functional Status Maintained Ronny [facility] 05-02-2022 Functional Status Ronny [facility] 05-02-2022 Functional Status Ronny [facility] 05-02-2022 Functional Status N/A Ronny [facility] 05-02-2022 Functional Status Room check performed [facility] 05-01-2022 Functional Status Ronny [facility] 05-01-2022 Functional Status Ronny [facility] 05-01-2022 Functional Status Ronny [facility] 05-01-2022 Functional Status Ronny [facility] 05-01-2022 Functional Status Breakfast Percent 25 [facility] 03-17-2023 Functional Status Yes Ronny [facility] 04-30-2022 Functional Status Ronny [facility] 04-30-2022 Functional Status SCD On/Re-appl ied bilateral knee high [facility] 04-30-2022 Functional Status Ronny [facility] 04-30-2022 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, 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, 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, Housework, Laundry, Meal preparation, Personal ADL, Shopping [facility] 04-29-2022 Functional Status Sensory Defici ts Blind, left eye [facility] Mental Status Date Assessment Result Facility 02-15-2023 Cognitive function Level Of Cons ciousness Awake;Alert;Appropriate;Follow s Commands [facility] Work Phone: 05-20-2022 Cognitive function Awake;Alert;A ppropriate;Follow s Commands [facility] Work Phone: 05-19-2022 Cognitive function Voice/Name [facility] Work Phone: 05-18-2022 Cognitive function Voice/Name [facility] Work Phone: 05-15-2022 Cognitive function Awake;Alert;A ppropriate;Follow s Commands [facility] Work Phone: 05-14-2022 Cognitive function Awake;Alert;A ppropriate;Follow s Commands [facility] Work Phone: 05-13-2022 Mental Status Oriented x 4 [facility] 05-13-2022 Cognitive function Awake;Alert;A ppropriate;Follow s Commands [facility] Work Phone: 05-12-2022 Cognitive function Voice/Name [facility] Work Phone: 05-11-2022 Cognitive function Voice/Name [facility] Work Phone: 05-08-2022 Cognitive function Voice/Name [facility] Work Phone: 05-07-2022 Mental Status Oriented x 4 [facility] 05-07-2022 Mental Status [facility] 05-06-2022 Mental Status [facility] 05-06-2022 Mental Status [facility] 05-02-2022 Mental Status Orientation Oriented x 4 [facility] 05-01-2022 Mental Status [facility] 05-01-2022 Mental Status [facility] 05-01-2022 Mental Status [facility] 08-08-2021 Cognitive function Level Of Cons ciousness Awake;Alert;Appropriate;Follow s Commands;Responds to vocal stimuli [facility] Work Phone: Clinical Notes 08-08-2021 to 11-02-2024 Telephone Encounter - KATHERINE Escalante CNP - 11/02/2024 1:07 PM EDTTelephone Encounter - KATHERINE Escalante CNP - 11/02/2024 [facility] - 10/19/2024 3:00 PM EDT Note Date & Type Note Facility 11-02-2024 Telephone encounter Note Reviewed chart. Refill appropriate. RX sent. [facility] 11-02-2024 Miscellaneous Notes Reviewed chart. Refill appropriate. RX sent. Images from the original note were not included. Prescription Request: eszopiclone (Lunesta) 3 MG tablet Last medication check: 08/30/24 Last physical exam: 03/14/24 Next scheduled appointment: 11/30/24 Last date of refill on this medication 10/04/24 ( qty 30 refill 0) documented in this encounter [facility] 11-02-2024 Telephone encounter Note Images from the original note were not included. Prescription Request: eszopiclone (Lunesta) 3 MG tablet Last medication check: 08/30/24 Last physical exam: 03/14/24 Next scheduled appointment: 11/30/24 Last date of refill on this medication 10/04/24 ( qty 30 refill 0) [facility] 10-26-2024 History of Presen t illness Narrative Images from the original note were not included. General Surgery History and Physical Deepa Khanh PUENTE Patient ID: Sue Moncada [id number] 54 y.o. 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 female who presents with Left chest wall swelling and pain. Started 1 week ago and increased in size. No drainage. Hx of abscesses in past under axilla. She reports initial fever when first noted none since. No Chills. Daily smoker trying to quit. Not diabetic. States due for mammogram but had one last year which was negative for abnormality. Was seen by PCP and placed on doxycycline with minimal improvement. No OAC. Patient also would like to discuss soft tissue lesion chest wall adjacent to current swelling. States has had prior similar areas surgical removed and was told they were calcified lesions that were benign. She states has them all over but this chest wall one is irritating and painful and would like removed. Medical History[1] Surgical History[2] Medications Prior to Visit: Prior to Admission medications Medication Sig Start Date End Date Taking? Authorizing Provider amitriptyline (Elavil) 50 MG tablet TAKE 1 TABLET BY MOUTH NIGHTLY 10/06/24 Jeri Bridenthal [employer] - GARRISON amLODIPine (Norvasc) 5 MG tablet TAKE 1 TABLET BY MOUTH EVERY DAY 08/02/24 Jeri Bridenthal, [employer] - INVASIVE MANAGER atorvastatin (Lipitor) 20 MG tablet TAKE 1 TABLET BY MOUTH EVERY DAY IN THE EVENING 10/06/24 Jeri Bridenthal [employer] - INVASIVE MANAGER choline fenofibrate (Trilipix) [address] capsule Take by mouth. 11/24/21 Historical Provider, clindamycin (Cleocin T) 1 % gel (Twice-Daily) Apply to affected area daily 05/31/24 05/31/25 KATHERINE Escalante CNP dexlansoprazole (Dexilant) [address] capsule Take 1 capsule (60 mg) by mouth daily. 05/15/24 KATHERINE Escalante CNP doxycycline (Vibramycin) 100 MG capsule 100 mg. 10/13/24 10/23/24 Historical Provider, doxycycline (Vibramycin) 100 MG capsule Take 1 capsule (100 mg) by mouth 2 times daily for 7 days. Take with at least 8 ounces (large glass) of water, do not lie down for 30 minutes after 10/23/24 10/30/24 KATHERINE Escalante CNP eszopiclone (Lunesta) 3 MG tablet Take 1 tablet (3 mg) by mouth Nightly as needed for sleep. Take immediately before bedtime 10/04/24 11/03/24 KATHERINE Escalante CNP naloxone (Narcan) 4 mg/0.1 mL nasal spray ADMINISTER A SINGLE spray INTO ONE NOSTRIL repeat in 3 MINUTES IF... (REFER TO PRESCRIPTION NOTES). 03/04/23 Historical Provider, nystatin (Mycostatin) 538625 UNIT/GM powder Apply topically 3 times daily. 01/11/24 01/10/25 KATHERINE Escalante CNP oxyCODONE-acetaminophen (Percocet) 5-325 MG tablet Take 1 tablet by mouth every 8 hours as needed for severe pain (7-10). 10/06/24 11/05/24 KATHERINE Escalante CNP tiZANidine (Zanaflex) 4 MG tablet TAKE 1 TABLET BY MOUTH AT BEDTIME NEEDED FOR MUSCLE SPASMS 09/07/24 KATHERINE Escalante CNP Allergies: Duloxetine, Duloxetine hcl, Pregabalin, Tramadol, and Trazodone Social History[3] Family History[4] Review of Systems: Review of Systems Constitutional: Negative for appetite change, chills, fatigue, fever and unexpected weight change. Respiratory: Negative for cough, shortness of breath and wheezing. Cardiovascular: Negative for chest pain and palpitations. Gastrointestinal: Negative for abdominal pain, constipation, diarrhea, nausea, rectal pain and vomiting. Skin: Negative for rash and wound. Neurological: Negative for seizures and syncope. Hematological: Negative for adenopathy. Does not bruise/bleed easily. Physical Exam: BP 123/77 Pulse 93 Temp 36.1 C (97 F) Ht 4' 6 (1.372 m) Wt 100 lb 12.8 oz (45.7 kg) BMI 24.30 kg/m Physical Exam Exam conducted with a program research specialist present. Constitutional: Appearance: Normal appearance. HENT: Head: Normocephalic. Eyes: Pupils: Pupils are equal, round, and reactive to light. Cardiovascular: Rate and Rhythm: Normal rate and regular rhythm. Pulses: Normal pulses. Pulmonary: Effort: Pulmonary effort is normal. No respiratory distress. Breath sounds: Normal breath sounds. No rales. Chest: Abdominal: General: Bowel sounds are normal. Palpations: Abdomen is soft. There is no mass. Tenderness: There is no abdominal tenderness. Musculoskeletal: General: No swelling or tenderness. Cervical back: Normal range of motion. No tenderness. Lymphadenopathy: Cervical: No cervical adenopathy. Skin: General: Skin is warm and dry. Neurological: Mental Status: She is alert and oriented to person, place, and time. Psychiatric: Behavior: Behavior normal. Incision and Drainage Procedure Note Indication: left chest wall abscess Procedure: The patient was positioned appropriately and the skin over the incision site was prepped with betadine. Local anesthesia was used 2%lidocaine. An incision was then made over the apex and moderate amount of bloody and then gross purulent material was expressed. Loculations were present and broken up with hemostats and more of the material was expressed. The drainage cavity was then irrigated and covered with gauze and secured with surgical tape. The patient tolerated the procedure well. Complications: none No orders of the defined types were placed in this encounter. Impression/Treatment Plan: Sue Moncada is a 54 y.o. female with Left chest wall abscess and soft tissue mass - Left chest wall abscess with incision and drainage today in office see above procedure for further detail - Left chest wall soft tissue mass consistent with calcified lesion and will allow abscess to heal with plans for local excision of area in a couple of weeks Patient counseled on risks, benefits, and alternatives of treatment plan at length while in the office today. Patient states an understandingand willingness to proceed with plan. 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 2 (SARS-CoV-2) 03/04/2023 Headache Hypertension Irritable bowel syndrome Irritation of left eye 01/06/2023 Linear scleroderma Neuropathy Skin pimple 04/29/2023 Spinal headache Yeast dermatitis 01/11/2024 [2] Past Surgical History: Procedure Laterality Date ARM SURGERY (HISTORICAL) Left ARM SURGERY (HISTORICAL) Right carpel tunnel COLONOSCOPY ELBOW SURGERY Right Golfers elbow EYE SURGERY [3] Social History Socioeconomic History Marital status: Single Occupational History Comment: [employer] Tobacco Use Smoking status: Every Day Current packs/day: 1.00 Average packs/day: 1 pack/day for 35.0 years (35.0 ttl pk-yrs) Types: Cigarettes Smokeless tobacco: Never Vaping Use Vaping status: Never Used Substance and Sexual Activity Alcohol use: Not Currently Drug use: Yes Types: Marijuana Comment: CBD with THC Sexual activity: Not Currently Social History Narrative Lives with sister (adoptive family) in [facility].grew up in [place], adopted. Came back to [place] last July 2021, from [place] since 2010.boyfriend about 7 years ago, (were together 15 yrs). Adopted parents sold where she was living and so she moved back here. Adopted parents live up here and biological family. Linear scleroderma since age 6. 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 Social Drivers of Health Financial Resource Strain: Low Risk [...] Minutes of Exercise per Session: 10 min Housing Stability: High Risk (11/24/2022) Housing Stability Vital Sign Unable to Pay for Housing in the Last Year: No Number of Places Lived in the Last Year: 3 Unstable Housing in the Last Year: No [4] Family History Problem Relation Name Age of Onset Arthritis Mother Kera Diabetes Mother Kera Hyperlipidemia Mother Kera Kidney disease Mother Kera Cirrhosis Father N/a Alcohol abuse Father N/a documented in this encounter [facility] 10-26-2024 Note General Surgery History and Physical Deepa PUENTE Patient ID: Sue Moncada [id number] 54 y.o. 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 female who presents with Left chest wall swelling and pain. Started 1 week ago and increased in size. No drainage. Hx of abscesses in past under axilla. She reports initial fever when first noted none since. No Chills. Daily smoker trying to quit. Not diabetic. States due for mammogram but had one last year which was negative for abnormality. Was seen by PCP and placed on doxycycline with minimal improvement. No OAC. Patient also would like to discuss soft tissue lesion chest wall adjacent to current swelling. States has had prior similar areas surgical removed and was told they were calcified lesions that were benign. She states has them all over but this chest wall one is irritating and painful and would like removed. Medical History[1] Surgical History[2] Medications Prior to Visit: Prior to Admission medications Medication Sig Start Date End Date Taking? Authorizing Provider amitriptyline (Elavil) 50 MG tablet TAKE 1 TABLET BY MOUTH NIGHTLY 10/06/24 Jeri KATHERINE Trinidad CNP amLODIPine (Norvasc) 5 MG tablet TAKE 1 TABLET BY MOUTH EVERY DAY 08/02/24 Jeri KATHERINE Trinidad CNP atorvastatin (Lipitor) 20 MG tablet TAKE 1 TABLET BY MOUTH EVERY DAY IN THE EVENING 10/06/24 Jeri KATHERINE Trinidad CNP choline fenofibrate (Trilipix) [address] capsule Take by mouth. 11/24/21 Historical Provider, clindamycin (Cleocin T) 1 % gel (Twice-Daily) Apply to affected area daily 05/31/24 05/31/25 KATHERINE Escalante CNP dexlansoprazole (Dexilant) [address] capsule Take 1 capsule (60 mg) by mouth daily. 05/15/24 KATHERINE Escalante CNP doxycycline (Vibramycin) 100 MG capsule 100 mg. 10/13/24 10/23/24 Historical Provider, doxycycline (Vibramycin) 100 MG capsule Take 1 capsule (100 mg) by mouth 2 times daily for 7 days. Take with at least 8 ounces (large glass) of water, do not lie down for 30 minutes after 10/23/24 10/30/24 KATHERINE Escalante CNP eszopiclone (Lunesta) 3 MG tablet Take 1 tablet (3 mg) by mouth Nightly as needed for sleep. Take immediately before bedtime 10/04/24 11/03/24 KATHERINE Escalante CNP naloxone (Narcan) 4 mg/0.1 mL nasal spray ADMINISTER A SINGLE spray INTO ONE NOSTRIL repeat in 3 MINUTES IF... (REFER TO PRESCRIPTION NOTES). 03/04/23 Historical Provider, nystatin (Mycostatin) 618537 UNIT/GM powder Apply topically 3 times daily. 01/11/24 01/10/25 KATHERINE Escalanet CNP oxyCODONE-acetaminophen (Percocet) 5-325 MG tablet Take 1 tablet by mouth every 8 hours as needed for severe pain (7-10). 10/06/24 11/05/24 KATHERINE Escalante CNP tiZANidine (Zanaflex) 4 MG tablet TAKE 1 TABLET BY MOUTH AT BEDTIME NEEDED FOR MUSCLE SPASMS 09/07/24 KATHERINE Escalante CNP Allergies: Duloxetine, Duloxetine hcl, Pregabalin, Tramadol, and Trazodone Social History[3] Family History[4] Review of Systems: Review of Systems Constitutional: Negative for appetite change, chills, fatigue, fever and unexpected weight change. Respiratory: Negative for cough, shortness of breath and wheezing. Cardiovascular: Negative for chest pain and palpitations. Gastrointestinal: Negative for abdominal pain, constipation, diarrhea, nausea, rectal pain and vomiting. Skin: Negative for rash and wound. Neurological: Negative for seizures and syncope. Hematological: Negative for adenopathy. Does not bruise/bleed easily. Physical Exam: BP 123/77 Pulse 93 Temp 36.1 ?C (97 ?F) Ht 4' 6 (1.372 m) Wt 100 lb 12.8 oz (45.7 kg) BMI 24.30 kg/m? Physical Exam Exam conducted with a program research specialist present. Constitutional: Appearance: Normal appearance. HENT: Head: Normocephalic. Eyes: Pupils: Pupils are equal, round, and reactive to light. Cardiovascular: Rate and Rhythm: Normal rate and regular rhythm. Pulses: Normal pulses. Pulmonary: Effort: Pulmonary effort is normal. No respiratory distress. Breath sounds: Normal breath sounds. No rales. Chest: Abdominal: General: Bowel sounds are normal. Palpations: Abdomen is soft. There is no mass. Tenderness: There is no abdominal tenderness. Musculoskeletal: General: No swelling or tenderness. Cervical back: Normal range of motion. No tenderness. Lymphadenopathy: Cervical: No cervical adenopathy. Skin: General: Skin is warm and dry. Neurological: Mental Status: She is alert and oriented to person, place, and time. Psychiatric: Behavior: Behavior normal. Incision and Drainage Procedure Note Indication: left chest wall abscess Procedure: The patient was positioned appropriately and the skin over the incision site was prepped with betadine. Local anesthesia was used 2%lidocaine. An incision was then made over the ape (more content not included)... [facility] 10-19-2024 Evaluation + Plan note Associated Problem(s): Cellulitis of chest wall Symptoms are improving, patient reports a lot of fatigue. Will check CBC. Continue doxycycline. Consider prophylactic topical clindamycin later on to help prevent boils under the arms [facility] 10-19-2024 Miscellaneous Notes Associated Problem(s): Cellulitis of chest wall Symptoms are improving, patient reports a lot of fatigue. Will check CBC. Continue doxycycline. Consider prophylactic topical clindamycin later on to help prevent boils under the arms documented in this encounter [facility] 10-19-2024 History of Presen t illness Narrative Patient was identified by name and Date of . Images from the original note were not included. 10/19/2024 Sue Moncada (: 1970) is a 54 y.o. female , Established patient, here for evaluation of the following chief complaint(s): Fatigue and Cellulitis (Under left arm pit- [place](Prescribed the [facility] then [place] [facility])) ASSESSMENT/PLAN: 1. Cellulitis of chest wall Assessment & Plan: Symptoms are improving, patient reports a lot of fatigue. Will check CBC. Continue doxycycline. Consider prophylactic topical clindamycin later on to help prevent boils under the arms Orders: - CBC auto differential Follow up if symptoms worsen or fail to improve. SUBJECTIVE/OBJECTIVE: HPI - Sue Moncada (: 1970) is a 54 y.o. female , Established patient, here for the evaluation of the following chief complaint(s): Fatigue and Cellulitis (Under left arm pit- [place](Prescribed the [facility] then [place] [facility])) Feeling more tired than normal. Has not been to work all week. No fever since Wednesday. On Doxy for cellulits of the left axilla area Has 3-4 days left. Occasional nausea. PAIN IN THE LEFT SIDE IS BETTER BUT STILL SORE. NO DRAINAGE. Redness has improved. Reports initially it was hurting into her left arm but now it is more localized to just under the axilla on the left Current Medications[1] Review of Systems Constitutional: Positive for appetite change and fatigue. Negative for activity change and fever. Respiratory: Negative. Cardiovascular: Negative. Gastrointestinal: Negative. Genitourinary: Negative for difficulty urinating. Vitals: 09/04/25 1508 BP: 117/74 Pulse: 98 Resp: 16 Temp: 37.1 C (98.7 F) TempSrc: Infrared SpO2: 96% Weight: 99 lb 9.6 oz (45.2 kg) Physical Exam Constitutional: General: She is not in acute distress. Appearance: She is not ill-appearing. Cardiovascular: Rate and Rhythm: Normal rate and regular rhythm. Pulses: Normal pulses. Heart sounds: Normal heart sounds. Pulmonary: Effort: Pulmonary effort is normal. Breath sounds: Normal breath sounds. Skin: Neurological: Mental Status: She is alert and oriented to person, place, and time. An electronic signature was used to authenticate this note. KATHERINE Bergman CNP 10/19/2024 6:30 PM [1] Current Outpatient Medications Medication Sig Dispense Refill amitriptyline (Elavil) 50 MG tablet TAKE 1 TABLET BY MOUTH NIGHTLY 30 tablet 5 amLODIPine (Norvasc) 5 MG tablet TAKE 1 TABLET BY MOUTH EVERY DAY 90 tablet 1 atorvastatin (Lipitor) 20 MG tablet TAKE 1 TABLET BY MOUTH EVERY DAY IN THE EVENING 30 tablet 5 choline fenofibrate (Trilipix) [address] capsule Take by mouth. clindamycin (Cleocin T) 1 % gel (Twice-Daily) Apply to affected area daily 60 g 11 dexlansoprazole (Dexilant) [address] capsule Take 1 capsule (60 mg) by mouth daily. 90 capsule 1 doxycycline (Vibramycin) 100 MG capsule 100 mg. eszopiclone (Lunesta) 3 MG tablet Take 1 tablet (3 mg) by mouth Nightly as needed for sleep. Take immediately before bedtime 30 tablet 0 naloxone (Narcan) 4 mg/0.1 mL nasal spray ADMINISTER A SINGLE spray INTO ONE NOSTRIL repeat in 3 MINUTES IF... (REFER TO PRESCRIPTION NOTES). nystatin (Mycostatin) 549232 UNIT/GM powder Apply topically 3 times daily. 60 g 1 oxyCODONE-acetaminophen (Percocet) 5-325 MG tablet Take 1 tablet by mouth every 8 hours as needed for severe pain (7-10). 90 tablet 0 tiZANidine (Zanaflex) 4 MG tablet TAKE 1 TABLET BY MOUTH AT BEDTIME NEEDED FOR MUSCLE SPASMS 30 tablet 5 No current facility-administered medications for this visit. documented in this encounter [facility] 10-19-2024 Instructions KATHERINE Escalante CNP - 10/19/2024 3:00 PM EDT SEND PROVIDER UPDATE WHEN ALMOST DONE WITH ANTIBIOTICS DONE. documented in this encounter [facility] 10-15-2024 Discharge summary [facility] 10-13-2024 Hospital Discharge instructions Patient Education 10/13/2024 10:26:10 Cellulitis Skin [...] or higher after 2 days on antibiotics 8843-6899 [employer]. [address] [place] [address]. All rights reserved. This information is not intended as a substitute for professional medical care. Always follow your healthcare professional's instructions. Follow Up Care 10/13/2024 08:35:55 With:JERI TRINIDAD APRN/GARRISON Address: [address] [place] [phone] When:2-4 days [facility] 10-13-2024 Note Discharge Instructions Thank you for allowing [facility] to assist you with your healthcare needs. [...] with JERI TRINIDAD APRN/GARRISON When:Within 2-4 days Where:[address] [place] [id number] [phone] Allergies Cymbalta Racing Heart traMADol Unknown traZODone [...] or higher after 2 days on antibiotics [id number] [employer]. [address] [place] [address]. All rights reserved. This information is not intended as a substitute for professional medical care. Always follow your healthcare professional's instructions. Additional Information VACCINATE! IT SAVES LIVES! Members of the community who have not yet received the COVID-19 vaccine and would like to receive it can visit one of [facility] vaccine clinics. There are many vaccine clinic locations within the [facility]. For locations and available times, please visit [email or web address] It is important to note that some COVID mobile vaccine clinics are held outdoors and may be canceled in rainy or stormy conditions. To learn more about pediatric vaccinations (ages 5-11), we invite you to visit the [facility] webpage. [email or web address]/[email or web address]-[email or web address]-Questions.[email or web address] To learn more about the COVID-19 vaccine, we invite you to visit the CDC website for a list of frequently asked questions. https://www.cdc.gov/coronavirus/2019- ncov/vaccines/faq.html [facility] Patient Portal Access Instructions: Stay connected with your healthcare team and access your personal medical information anytime with the [facility] Patient Portal. If you would like a full copy of your medical records please contact the [facility] Medical Records Department Wednesday through Wednesday between 8a.m. and 4:30p.m. Please follow the directions below to access the portal: 1.Access the email account you provided upon registration to the [facility].2.Look for an invitation email from [facility].3.Open the email and access the invitation link: Accept Invitation to [facility]4.Fill in the required mariano to create your account. Sign into [email or web address] with your username and password that you [...] you will allow to register on the [facility] Patient Portal for access to your information. You can also access the [facility] Patient Portal on the [employer]. Simply click on Health Records under Health Data and then click on the [employer] logo. HOW TO SAFELY DISPOSE OF PRESCRIPTION [...] Call your local pharmacy or go to [email or web address] to find one close to you.3.Make use of household items: Use cat litter or old coffee grounds to dispose medications if other options are not available. Mix your drugs with these household products, seal them in an airtight container and throw it into the garbage. Call [facility]: [phone] to be sure your drugs can be [...] aware that I should contact my doctor. 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 Refill appropriate. RX sent. [facility] 10-06-2024 Miscellaneous Notes Reviewed chart. [...] to correct office. documented in this encounter [facility] 10-06-2024 Telephone encounter Note Prescription Request: ATORVASTATIN 20 MG TABLET AMITRIPTYLINE HCL 50 MG TAB Last medication check: 08/30/24 Last physical exam: 03/14/24 Next scheduled appointment: 11/30/24 Last date of refill on this medication Atorvastatin - 04/04/24 ( qty 90 refill 1) Amitryptyline - 04/14/24 ( qty 90 refill 1) [facility] 10-06-2024 Telephone encounter Note Routing to correct office. [facility] 10-06-2024 Telephone encounter Note Reviewed chart. Refill appropriate. RX sent. [facility] 10-06-2024 Miscellaneous Notes Reviewed chart. [...] 90 refill 0) documented in this encounter [facility] 10-06-2024 Telephone encounter Note Images from the original note were not included. Prescription Request: oxyCODONE-acetaminophen (Percocet) 5-325 MG tablet Last medication check: 08/30/24 Last physical exam: 03/14/24 Next scheduled appointment: 11/30/24 CSA on file (date): 06/13/24 Last urine drug screen: 05/31/24 Last date of refill on this medication 09/07/24 ( qty 90 refill 0) [facility] 10-04-2024 Telephone encounter Note Reviewed chart. Refill appropriate. RX sent. [facility] 10-04-2024 Miscellaneous Notes Reviewed chart. Refill appropriate. RX sent. Prescription Request: Last medication check: 08/30/2024 Last physical exam: 03/14/2024 Next scheduled appointment: 11/30/2024 CSA on file (date): 01/11/2024 Last urine drug screen: 05/31/2024 Last date of refill on this medication: 08/30/2024 documented in this encounter [facility] 10-04-2024 Telephone encounter Note Prescription Request: Last medication check: 08/30/2024 Last physical exam: 03/14/2024 Next scheduled appointment: 11/30/2024 CSA on file (date): 01/11/2024 Last urine drug screen: 05/31/2024 Last date of refill on this medication: 08/30/[address] [facility] 09-11-2024 Evaluation note Diagnosis Onset Date Resolution Bursitis of right shoulder acute September 11, 2024 2:23pm Right shoulder pain acute September 11, 2024 2:23pm [facility] Work Phone: 1(965) 262-751007-24-2025 Telephone encounter Note* Telephone Encounter - KATHERINE Escalante CNP - 09/07/2024 8:06 AM EDT Reviewed chart. Refill appropriate. RX sent. [facility] [id number] Miscellaneous Notes* Telephone Encounter - KATHERINE Escalante [...] qty 90 refill 0) documented in this [facility]07-24-2025 Telephone encounter Note* Telephone Encounter - KATHERINE Escalante CNP - 09/07/2024 8:05 AM EDT Reviewed chart. Refill appropriate. RX sent. [facility] [id number] Miscellaneous Notes* Telephone Encounter - KATHERINE Escalante [...] qty 90 refill 1) documented in this [facility]07-24-2025 Telephone encounter Note* Telephone Encounter - Jade Ceballos - 09/07/2024 7:25 AM EDT Prescription Request: TIZANIDINE HCL 4 MG TABLET Last medication check: 08/30/24 Last physical exam: 03/14/24 Next scheduled appointment: 11/30/24 Last date of refill on this medication 03/14/24 ( qty 90 refill 1) [place] [id number] Telephone encounter Note* Telephone Encounter - Jade Ceballos - 09/07/2024 6:58 AM EDT Images from the original note were not included. Prescription Request: oxyCODONE-acetaminophen (Percocet) 5-325 MG tablet Last medication check: 08/30/24 Last physical exam: 03/14/24 Next scheduled appointment: 11/30/24 Last date of refill on this medication 08/10/24 ( qty 90 refill 0) [place] [id number] Telephone encounter Note* Telephone Encounter - Wendie Aguilar - 08/31/2024 10:01 AM EDT Please sign new referral. [place] [id number] Miscellaneous Notes* Telephone Encounter - Wendie Aguilar - 08/31/2024 10:01 AM EDT Please sign new referral. documented in this encounterSMercy Health Tiffin [id number] Evaluation + Plan note* Assessment & Plan [...] area to better help manage her symptoms. [facility] [id number] NoteContinue Percocet 5-3 25 every 8 hours as needed for severe pain. OARRS reviewed and consistent with treatment plan. JESSE HUDSON is in place. Will see if we can find a palliative provider in [place] to better help manage her symptoms.[facility]07-16-2025 Miscellaneous Notes* Assessment & Plan Note - KATHERINE Escalante CNP - 08/30/2024 7:55 PM EDTAssociated Problem(s): Chronic pain syndrome Continue Percocet 5-3 25 every 8 hours as needed for severe pain. OARRS reviewed and consistent with treatment plan. JESSE HUDSON is in place. Will see if we can find a palliative provider [place] to better help manage her symptoms. [...] screenings or we can referher to a dairy equipment mechanic, patient states she will let us know what she decides to do documented in this [facility]07-16-2025 Miscellaneous Notes* Assessment & Plan Note - KATHERINE Escalante CNP - 08/30/2024 7:55 PM EDTAssociated Problem(s): Chronic pain syndrome Continue Percocet 5-3 25 every 8 hours as needed for severe pain. OARRS reviewed and consistent with treatment plan. CS MA is in place. Will see if we can find a palliative provider [place] to better help manage her symptoms. [...] screenings or we can referher to a dairy equipment mechanic, patient states she will let us know what she decides to do documented in this encounterSMercy Health Tiffin [id number] Evaluation + Plan note* Assessment & Plan Note - KATHERIEN Escalante CNP - 08/30/2024 7:54 PM EDTAssociated Problem(s): Chronic back pain Will treat for acute flareup with short burst of steroids. No red flags [facility] [id number] Evaluation + Plan note* Assessment & Plan Note - KATHERINE Escalante CNP - 08/30/2024 7:53 PM EDTAssociated Problem(s): Osteopetrosis Needs to get DEXA completed [facility] [id number] Evaluation + Plan note* Assessment & Plan Note - KATHERINE Escalante CNP - 08/30/2024 7:53 PM EDTAssociated Problem(s): Osteoporosis Needs to get her DEXA scan completed [place] [id number] Evaluation + Plan note* Assessment & Plan Note - KATHERINE Escalante CNP - 08/30/2024 7:53 PM EDTAssociated Problem(s): Insomnia Symptoms well-controlled on Lunesta 3 mg nightly. Continue current medication. OARRS reviewed and consistent with treatment plan [facility] [id number] NoteSymptoms well-controlled on Lunesta 3 mg nightly. Continue current medication. [facility] Evaluation + Plan note* Assessment & [...] screenings or we can referher to a dairy equipment mechanic, patient states she will let us know what she decides to do [facility] [id number] History of Present illness Narrative* Korin Mack [...] screenings or we can referher to a dairy equipment mechanic, patient states she will let us know what she decides to do 6. Chronic pain syndrome Assessment & Plan: Continue Percocet 5-3 25 every 8 hours as needed for severe pain. OARRS reviewed and consistent with treatment plan. CS MA is in place. Will see if we can find a palliative provider [place] to better help manage her symptoms. [...] authenticate this note. Jeri Trinidad APRN - [place]ARR[place] 08/30/2024 7:55 PM [1] Current Outpatient Medications [...] mouth daily. 90 capsule 1 nystatin (Mycostatin) 031040 UNIT/GM powder Apply topically 3 times daily. [...] medications for this visit. documented in this [facility]07-16-2025 History of Present illness Narrative* Korin Mack [...] screenings or we can referher to a dairy equipment mechanic, patient states she will let us know what she decides to do 6. Chronic pain syndrome Assessment & Plan: Continue Percocet 5-3 25 every 8 hours as needed for severe pain. OARRS reviewed and consistent with treatment plan. MA is in place. Will see if we can find a palliative provider [place] to better help manage her symptoms. [...] authenticate this note. Jeri Trinidad APRN - [place] 09/01/2024 7:41 AM [1] Current Outpatient Medications [...] mouth daily. 90 capsule 1 nystatin (Mycostatin) 041261 UNIT/GM powder Apply topically 3 times daily. [...] medications for this visit. documented in this [facility]06-26-2025 Telephone encounter Note* Telephone Encounter - KATHERINE Escalante CNP - 08/10/2024 1:26 PM EDT Reviewed chart. Refill appropriate. RX sent. [facility] [id number] Miscellaneous Notes* Telephone Encounter - KATHERINE Escalante CNP - 08/10/2024 1:26 PM EDT Reviewed chart. Refill appropriate. RX sent. * Telephone Encounter - Jaed Ceballos - 08/10/2024 10:33 AM EDT Images from the original note were not included. Prescription Request: oxyCODONE-acetaminophen (Percocet) 5-325 MG tablet Last medication check: 07/28/23 Last physical exam: 03/14/24 Next scheduled appointment: 08/30/24 CSA on file (date): 06/13/24 Urine drug screen - 05/31/24 Last date of refill on this medication 07/13/24 ( qty 90 refill 0) documented in this [facility]06-26-2025 Telephone encounter Note* Telephone Encounter - Jade Ceballos - 08/10/2024 10:33 AM EDT Images from the original note were not included. Prescription Request: oxyCODONE-acetaminophen (Percocet) 5-325 MG tablet Last medication check: 07/28/23 Last physical exam: 03/14/24 Next scheduled appointment: 08/30/24 CSA on file (date): 06/13/24 Urine drug screen - 05/31/24 Last date of refill on this medication 07/13/24 ( qty 90 refill 0) [facility] [id number] Telephone encounter Note* Telephone Encounter - KATHERINE Escalante CNP - 08/02/2024 8:51 AM EDT Reviewed chart. Refill appropriate. RX sent. [facility] [id number] Miscellaneous Notes* Telephone Encounter - KATHERINE Escalante [...] no refill documented in this encounterSMercy Health Tiffin HospitalRssqtc31-25-9006 Telephone encounter Note* Telephone Encounter - KATHERINE Escalante CNP - 08/02/2024 8:50 AM EDT Reviewed chart. Refill appropriate. RX sent. [facility] [id number] Miscellaneous Notes* Telephone Encounter - KATHERINE Escalante [...] refill 1) documented in this encounterSMercy Health Tiffin HospitalPhpiov99-54-9034 Telephone encounter Note* Telephone Encounter - Jade Ceballos - 08/02/2024 7:27 AM EDT Prescription Request: AMLODIPINE BESYLATE 5 MG TAB Last medication check: 11/03/23 Last physical exam: 03/14/24 Next scheduled appointment: 08/30/24 Last date of refill on this medication 11/03/23 ( Qty 90 refill 1) [facility] [id number] Telephone encounter Note* Telephone Encounter - Tejal Yousif MA - 08/02/2024 7:10 AM EDT Prescription Request: Last medication check: 08/12/23 Last physical exam: 03/14/24 Next scheduled appointment: 08/30/24 Csa 01/11/24 Uds 05/31/24 Last date of refill on this medication 07/06/2529 and no refill [facility] CenterFbfotp36-68-1021 Telephone encounter Note* Telephone Encounter - KATHERINE Escalante CNP - 07/13/2024 1:40 PM EDT Reviewed chart. Refill appropriate. RX sent. [facility] [id number] Miscellaneous Notes* Telephone Encounter - KATHERINE Escalante [...] qty 90 refill 0) documented in this encounterSMercy Health Tiffin HospitalTnwmhz64-81-4242 Telephone encounter Note* Telephone Encounter - Jade Ceballos - 07/13/2024 1:06 PM EDT Prescription Request: oxyCODONE-acetaminophen (Percocet) 5-325 MG tablet Last medication check: 07/28/23 Last physical exam: 03/14/24 Next scheduled appointment: 08/30/24 CSA on file (date): 06/13/24 Last date of refill on this medication 06/13/24 ( qty 90 refill 0) [facility] CenterWhlzqc43-39-8004 NoteReviewed chart. Refill appropriate. Rx sent. Oarrs reviewed and consistent with treatment plan. Csma in [facility]04-29-2025 Telephone encounter Note* Telephone Encounter - KATHERINE Escalante CNP - 06/13/2024 8:28 AM EDT Reviewed chart. Refill appropriate. Rx sent. Oarrs reviewed and consistent with treatment plan. Csma in place [facility] CenterIgyduy30-64-6139 Miscellaneous Notes* Telephone Encounter - KATHERINE Escalante [...] qty 90 refill 0) documented in this [facility]04-29-2025 Telephone encounter Note* Telephone Encounter - Jade Ceballos - 06/13/2024 6:59 AM EDT Prescription Request: oxyCODONE-acetaminophen (Percocet) 5-325 MG tablet Last medication check: 05/31/24 Last physical exam: 03/14/24 Next scheduled appointment: 08/30/24 CSA on file (date): 12/10/23 Last date of refill on this medication 05/17/24 ( qty 90 refill 0) [facility] [id number] Telephone encounter Note* Telephone Encounter - KATHERINE Escalante CNP - 2024 12:20 PM EDT Reviewed chart. Refill appropriate. RX sent. [facility] CenterWlyhpk35-77-9926 Miscellaneous Notes* Telephone Encounter - KATHERINE Escalante [...] medication: Yes documented in this encounterSMercy Health Tiffin HospitalNrawtm72-17-5132 Telephone encounter Note* Telephone Encounter - KATHERINE Escalante CNP - 2024 12:19 PM EDT Reviewed chart. Refill appropriate. RX sent. [place] [id number] Telephone encounter Note* Telephone Encounter - Elsa Lawrence MA - 2024 10:12 AM EDT CSA - Gavino 01/11/24 05/31/2024 Drug Screen completed [id number] Telephone encounter Note* Telephone Encounter - Marlene [...] prior to picking up the medication: Yes [id number] Evaluation + Plan note* Assessment & Plan Note - KATHERINE Escalante CNP - 05/31/2024 5:02 PM EDTAssociated Problem(s): Insomnia Symptoms well-controlled on Lunesta 3 mg nightly. Continue current medication. [place] [id number] Evaluation + Plan note* Assessment & Plan Note - KATHERINE Escalante CNP - 05/31/2024 5:02 PM EDTAssociated Problem(s): Uncomplicated opioid dependence (HCC) Continue Percocet 5-325 mg every 8 hours as needed for severe pain. OARRS reviewed and consistent with treatment plan MA is in place [place] [id number] NoteContinue Percocet 5-325 mg every 8 hours as needed for severe pain. OARRS reviewed and consistent with treatment plan JESSE HUDSON is in [facility]04-16-2025 Evaluation + Plan note* Assessment & Plan Note - KATHERINE Escalante CNP - 05/31/2024 5:02 PM EDTAssociated Problem(s): Systemic sclerosis (HCC) Stable. Has been evaluated by Dr. Benson rheumatology. Stable condition no rheumatological interventions indicated [address]Ekpxah63-82-2419 Miscellaneous Notes* Assessment & Plan Note - [...] daily to affected areas. documented in this [facility]04-16-2025 Evaluation + Plan note* Assessment & Plan Note - KATHERINE Escalante CNP - 05/31/2024 4:56 PM EDTAssociated Problem(s): Chronic pain syndrome Continue Percocet 5-3 25 every 8 hours as needed for severe pain. OARRS reviewed and consistent with treatment plan. JESSE MA is in place. [facility] CenterYyoeml67-83-3607 NoteContinue Percocet 5-3 25 every 8 hours as needed for severe pain. OARRS reviewed and consistent with treatment plan. JESSE MA is in place.[facility]04-16-2025 Evaluation + Plan note* Assessment & Plan Note - KATHERINE Escalante CNP - 05/31/2024 4:56 PM EDTAssociated Problem(s): Hidradenitis No active lesions. Will start topical antibiotic daily to affected areas. [facility] [id number] History of Present illness Narrative* Korin Mack - 05/31/2024 3:00 PM EDT Patient was identified by name and Date of . Health Maintenance Due Topic Colorectal Cancer Screening-REFERRAL PRINTED Diabetes Screening-DONE AT [facility] 2-3 MONTHS-WILL FAX YASMEEN Cervical Cancer [...] current medication. Follow up for 3 month [facility]. SUBJECTIVE/OBJECTIVE: BRADFORD Moncada (: 1970) is a 53 y.o. female , Established patient, here for the evaluationof the following chief complaint(s): Gynecologic Exam Patient presents for her 3-month med check for chronic pain and for her gynecological exam. She hasalready had her annual physical with fasting labs completed earlier this year. She states she had her labs completed at [facility] and we will need to [...] IF... (REFER TO PRESCRIPTION NOTES). nystatin (Mycostatin) 975163 UNIT/GM powder Apply topically 3 times daily. [...] CNP 05/31/2024 5:02 PM documented in this [facility]03-31-2025 Telephone encounter Note* Telephone Encounter - Dallas Glover MA - 05/15/2024 11:44 AM EDT Prescription Request: Last medication check: 03/14/24 Last physical exam: 03/04/23 Next scheduled appointment: 05/31/24 CSA on file (date): 01/12/24 Last urine drug screen: 02/03/23 Last date of refill on this medication 04/17/24 [place] [id number] Miscellaneous Notes* Telephone Encounter - Dallas Glover MA - 05/15/2024 11:44 AM EDT Prescription Request: Last medication check: 03/14/24 Last physical exam: 03/04/23 Next scheduled appointment: 05/31/24 CSA on file (date): 01/12/24 Last urine drug screen: 02/03/23 Last date of refill on this medication 04/17/24 documented in this [facility]03-24-2025 Telephone encounter Note* Telephone Encounter - KATHERINE Escalante CNP - 05/08/2024 12:42 PM EDT Reviewed chart. Refill appropriate. RX sent. [id number] Miscellaneous Notes* Telephone Encounter - KATHERINE Escalante CNP - 05/08/2024 12:42 PM EDT Reviewed chart. Refill appropriate. RX sent. * Telephone Encounter - Elsa Lawrence MA - 05/08/2024 11:30 AM EDT CSA - Lunesta 01/11/24 * Telephone Encounter - Chely Ortega - 05/08/2024 11:17 AM EDT Patient is out. Medication name: eszopiclone (Lunesta) 3 MG tablet [[id number]] Medication dosage: 3 mg (Miligrams Monthly quantity [...] medication tab): 04.05.24 Updated/Validated preferred pharmacy: Yes [facility]/pharmacy #[id number] [place] [address] DEAN #: [id number] Patient instructed to contact the pharmacy prior to picking up the medication: Yes documented in this encounterSMercy Health Tiffin HospitalYwxaty75-54-4301 Telephone encounter Note* Telephone Encounter - Elsa Lawrence MA - 05/08/2024 11:30 AM EDT CSA - Lunesta 01/11/[address] [facility] CenterBfuqrc76-12-8504 Telephone encounter Note* Telephone Encounter - Chely Ortega - 05/08/2024 11:17 AM EDT Patient is out. Medication name: eszopiclone (Lunesta) 3 MG tablet [[id number]] Medication dosage: 3 mg (Miligrams Monthly quantity [...] medication tab): 04.05.24 Updated/Validated preferred pharmacy: Yes [facility]/pharmacy #[id number] [place] [id number] DEAN #: [id number] Patient instructed to contact the pharmacy prior to picking up the medication: Yes [facility] CenterFjxjyz62-98-9438 Telephone encounter Note* Telephone Encounter - KATHERINE Escalante CNP - 04/27/2024 5:06 PM EDT Noted. Agree with disposition. [facility] CenterQvsijf15-71-3404 Miscellaneous Notes* Telephone Encounter - KATHERINE Escalante [...] (Skin Abscess)-ADULT-[place] documented in this encounterSMercy Health Tiffin HospitalAzhvuy41-89-1621 Telephone encounter Note* Telephone Encounter - Jazzmine [...] no fever Protocols used: Boil (Skin Abscess)-ADULT-[place] [facility] CenterVfnwfu54-74-3433 Telephone encounter Note* Telephone Encounter - Jeri Trinidad APRN - INVASIVE MANAGER - 04/14/2024 8:56 AM EST Reviewed chart. Refill appropriate. RX sent. [facility] CenterRsmgms23-14-2426 Miscellaneous Notes* Telephone Encounter - KATHERINE Escalante CNP - 04/14/2024 8:56 AM EST Reviewed chart. Refill appropriate. RX sent. * Telephone Encounter - Zee Richardson MA - 04/14/2024 7:17 AM EST Prescription Request: Last medication check: 01-11-24 Last physical exam: 03-14-24 Next scheduled appointment: 04-10-24 Last date of refill on this medication 12/23/23 documented in this [facility]02-28-2025 Telephone encounter Note* Telephone Encounter - Zee Richardson MA - 04/14/2024 7:17 AM EST Prescription Request: Last medication check: 01-11-24 Last physical exam: 03-14-24 Next scheduled appointment: 04-10-24 Last date of refill on this medication 12/23/[address] [facility] CenterJsafmr87-06-7583 NoteOARRS reviewed and consistent with treatment plan. First fill April 17, 2024. Rx [facility]02-25-2025 Telephone encounter Note* Telephone Encounter - KATHERINE Escalante CNP - 04/11/2024 5:38 PM EST OARRS reviewed and consistent with treatment plan. First fill April 17, 2024. Rx sent [facility] CenterQlkpcg11-55-8597 Miscellaneous Notes* Telephone Encounter - KATHERINE Escalante [...] medication: No documented in this encounterSMercy Health Tiffin HospitalQymgcl40-02-9549 Telephone encounter Note* Telephone Encounter - Zee Richardson MA - 04/10/2024 3:17 PM EST ALYSE 12/09/[address] [facility] CenterLlbyab85-05-3723 Telephone encounter Note* Telephone Encounter - Maia [...] prior to picking up the medication: No [facility] CenterLxgwqm20-29-3454 Telephone encounter Note* Telephone Encounter - KATHERINE Escalante CNP - 04/05/2024 2:47 PM EST Reviewed chart. Refill appropriate. RX sent. [facility] CenterXyyeuz70-74-9227 Miscellaneous Notes* Telephone Encounter - KATHERINE Escalante [...] medication 03-04-24 documented in this encounterSMercy Health Tiffin HospitalFrycmu43-75-4579 Telephone encounter Note* Telephone Encounter - Theresa Vega - 04/05/2024 2:43 PM EST Prescription Request: Last medication check: 01-11-24 Last physical exam: 03-14-24 Next scheduled appointment: 04-10-24 CSA on file (date): 01-11-24 Last urine drug screen: 02-03-23 Last date of refill on this medication 03-04-[address] [facility] [id number] Telephone encounter Note* Telephone Encounter - KATHERINE Escalante CNP - 04/04/2024 12:14 PM EST Reviewed chart. Refill appropriate. RX sent. [place] [id number] Miscellaneous Notes* Telephone Encounter - KATHERINE Escalante CNP - 04/04/2024 12:14 PM EST Reviewed chart. Refill appropriate. RX sent. * Telephone Encounter - Zee Richardson MA - 04/04/2024 10:46 AM EST Prescription Request: Last medication check: 01/11/24 Last physical exam: 03/14/24 Next scheduled appointment: 04/10/24 Last date of refill on this medication: 09/08/23 documented in this [facility]02-18-2025 Telephone encounter Note* Telephone Encounter - Zee Richardson MA - 04/04/2024 10:46 AM EST Prescription Request: Last medication check: 01/11/24 Last physical exam: 03/14/24 Next scheduled appointment: 04/10/24 Last date of refill on this medication: 09/08/23 [address]Giqmbo63-05-7004 Note. MICRO - Microbiology PROCEDURE: Urine Culture [...] Locations *1: This test was performed at: [facility], [address] [place] [address], [id number] , [facility]02-14-2025 Evaluation + Plan note Diagnostic Tests Pending * Urine Culture 03/31/24 [facility] 02-06-2025 Telephone encounter Note* Telephone Encounter - Lupis Puga RN - 03/23/2024 12:51 PM EST (2nd attempt) Called today to schedule screening colonoscopy (surveillance program) Left message to call the screening program at [phone] 1st attempt my chart message sent. [facility] [id number] Miscellaneous Notes* Telephone Encounter - Lupis Puga RN - 03/23/2024 12:51 PM EST (2nd attempt) Called today to schedule screening colonoscopy (surveillance program) Left message to call the screening program at [phone] 1st attempt my chart message sent. * Telephone Encounter - Lupis Puga RN - 03/17/2024 8:21 AM EST MyChart message sent to have patient call screening program if still interested in scheduling a screening colonoscopy. documented in this [facility]01-31-2025 Telephone encounter Note* Telephone Encounter - Lupis Puga RN - 03/17/2024 8:21 AM EST Spiceworkst message sent to have patient call screening program if still interested in scheduling a screening colonoscopy. [facility] [id number] Evaluation + Plan note* Assessment & Plan Note - KATHERINE Escalante CNP - 03/14/2024 5:21 PM ESTAssociated Problem(s): Irritable bowel syndrome Stable. Referral made to gastroenterology, patient due for colon cancer screening [facility] [id number] NoteStable. Referral made to gastroenterology, [facility] Evaluation + Plan note* Assessment & Plan Note - KATHERINE Escalante CNP - 03/14/2024 5:21 PM ESTAssociated Problem(s): Insomnia Symptoms well-controlled on Lunesta 3 mg nightly. Continue current medication. [facility] [id number] Miscellaneous Notes* Assessment & Plan Note - [...] is currently trying to get established with [facility] pain management and is waiting for their reply after sending in their forms about 3 weeks ago. * Assessment & Plan Note - KATHERINE Escalante CNP - 03/14/2024 5:16 PM ESTAssociated Problem(s): Uncomplicated opioid dependence (HCC) Continue Percocet 5-325 mg every 8 hours as needed for severe pain. 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 documented in this [facility]01-28-2025 Evaluation + Plan note* Assessment & Plan Note - KATHERINE Escalante CNP - 03/14/2024 5:19 PM ESTAssociated Problem(s): Linear scleroderma Condition stable. [facility] [id number] Evaluation + Plan note* Assessment & Plan Note - KATHERINE Escalante CNP - 03/14/2024 5:19 PM ESTAssociated Problem(s): Chronic back pain Stable. Continue current medications. [facility] CenterIscepa97-87-8197 Evaluation + Plan note* Assessment & Plan Note - KATHERINE Escalante CNP - 03/14/2024 5:18 PM ESTAssociated Problem(s): Osteopetrosis Obtain labs previously ordered by osteoporosis clinic [facility]01-28-2025 Evaluation + Plan note* Assessment & Plan Note - KATHERINE Escalante CNP - 03/14/2024 5:18 PM ESTAssociated Problem(s): Hypercholesterolemia Controlled. Continue atorvastatin 20 [address] [facility] [id number] Evaluation + Plan note* Assessment & Plan Note - KATHERINE Escalante CNP - 03/14/2024 5:18 PM ESTAssociated Problem(s): Hypertension Controlled. Blood pressure 133/79. Continue amlodipine [address] [facility] [id number] Evaluation + Plan note* Assessment & Plan Note - KATHERINE Escalante CNP - 03/14/2024 5:18 PM ESTAssociated Problem(s): Systemic sclerosis (HCC) Stable. Has been evaluated by Dr. Benson rheumatology. Stable condition no rheumatological interventions indicated [facility]01-28-2025 Evaluation + Plan note* Assessment & Plan Note - KATHERINE Escalante CNP - 03/14/2024 5:17 PM ESTAssociated Problem(s): Vitamin D deficiency History of vitamin D deficiency, check vitamin D level [facility]01-28-2025 Evaluation + Plan note* Assessment & Plan Note - KATHERINE Escalante CNP - 03/14/2024 5:17 PM ESTAssociated Problem(s): Chronic pain syndrome Continue Percocet 5-3 25 every 8 hours as needed for severe pain. OARRS reviewed and consistent with treatment plan. JESSE HUDSON is in place. Patient is currently trying to get established with [facility] pain management and is waiting for their reply after sending in their forms about 3 weeks ago. [facility]01-28-2025 Evaluation + Plan note* Assessment & Plan Note - KATHERINE Escalante CNP - 03/14/2024 5:16 PM ESTAssociated Problem(s): Uncomplicated opioid dependence (HCC) Continue Percocet 5-325 mg every 8 hours as needed for severe pain. OARRS reviewed and consistent with treatment plan JESSE HUDSON is in place [facility] [id number] NoteContinue Percocet 5-325 mg every 8 hours as needed for severe pain. 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 [facility] [id number] History of Present illness Narrative* Korin Mack [...] EXP 01/02/2025 Medicare Annual Wellness (AWV) -today [facility] NEED TO FAX ALL ORDERS OVER WANTS DONE THERE. FAX # TO SEND ORDERS TO IS [phone] 1.) Call Gastroenterology to schedule appointment--they will get you scheduled for a colonoscopy. 2.) Orders will all be faxed to [facility] you will need to call them to schedule [phone] ----Mammogram,Lung CT, DEXA Scan/Bone Density--- 3.) Any [...] Mack MA in right dorsogluteal. * Jeri Trinidad APRN - INVASIVE MANAGER - 03/14/2024 2:40 PM EST Images from the original note were not included. [address] [address] Dept: [phone] Dept Chief Complaint: Sue Moncada is an [...] is currently trying to get established with [facility] pain management and is waiting for [...] IF... (REFER TO PRESCRIPTION NOTES). nystatin (Mycostatin) 558872 UNIT/GM powder Apply topically 3 times daily. [...] Patient states she did reach out to [facility] pain management and sent the information they needed to them about 3 weeks ago and is waiting for them to call to schedule. They wererecommended by the methods specialist Dr. Benson. Last visit we gave her [...] healthcare providers: Patient Care Team: Jose D Goodman MD as PCP - General (Family [...] week. Her mom is staying in a penitentiary facility and her dad is at home. [...] Stability: High Risk (11/24/2022) documented in this [facility]01-28-2025 Instructions* Patient Instructions* KATHERINE Escalante CNP - 03/14/2024 2:40 PM EST [facility] NEED TO FAX ALL ORDERS OVER WANTS DONE THERE. FAX # TO SEND ORDERS TO IS [phone] 1.) Call Gastroenterology to schedule appointment at [phone] they will get you scheduled for acolonoscopy. 2.) Orders will all be faxed to [facility] you will need to call them to schedule [phone] ----Mammogram,Lung CT, DEXA Scan/Bone Density--- 3.) Any [...] Recommendations: A preventive eye exam by an pheresis specialist is recommended every 1-2 years to screen for glaucoma, cataracts, macular degeneration, and other eye disorders. A preventive dental visit is recommended every 6 months. Try to get at least 150 minutes of exercise per week or 10,000 steps per day on a pedometer. You need 1200-1500mg of calcium and 1588-3059 international units of vitamin D per day. [...] a motorcycle documented in this encounterSMercy Health Tiffin HospitalCtnzqi71-16-6721 Telephone encounter Note* Telephone Encounter - Zee Richardson MA - 03/02/2024 1:25 PM EST CSA 01/11/[address] [facility] [id number] Miscellaneous Notes* Telephone Encounter - Zee Richardson MA - 03/02/2024 1:25 PM EST CSA 01/11/24 * Telephone Encounter - Sera Owen - 03/02/2024 12:50 PM EST Ordering provider: Dr. Goodman Date of last [...] (see medication tab): 02/03/2024 documented in this [facility]01-16-2025 Telephone encounter Note* Telephone Encounter - Sera Owen - 03/02/2024 12:50 PM EST Ordering provider: Dr. Goodman Date of last [...] of last refill (see medication tab): 02/03/[address] [facility] [id number] Telephone encounter Note* Telephone Encounter - Jeri Wilson - 02/28/2024 1:14 PM EST Orders cancelled [facility] CenterCjzasl83-68-3849 Miscellaneous Notes* Telephone Encounter - Jeri Wilson [...] cancel orders? documented in this encounterSMercy Health Tiffin HospitalJxazxl89-62-3329 Telephone encounter Note* Telephone Encounter - KATHERINE Escalante CNP - 02/28/2024 12:55 PM EST Ok to cancel [facility] CenterYbggbp43-20-4544 Telephone encounter Note* Telephone Encounter - Jeri Wilson - 02/28/2024 11:08 AM EST As of today, 02/28/24, pt has not scheduled for a CT-Lung Screen. Okay to cancel orders as they willclose on 03/04/24 due to being . [facility] [id number] Telephone encounter Note* Telephone Encounter - Elsa Lawrence MA - 02/17/2024 9:59 AM EST 12/09/23 rfp Percocet CSA - 12/07/[address] [facility] [id number] Miscellaneous Notes* Telephone Encounter - Elsa Lawrence [...] up the medication: Yes documented in this [facility]01-02-2025 Telephone encounter Note* Telephone Encounter - Margarita [...] prior to picking up the medication: Yes [facility] [id number] Telephone encounter Note* Telephone Encounter - Tejal Yousif MA - 02/07/2024 3:23 PM EST Prescription Request: Last medication check: 01/11/24 Last physical exam: 03/04/23 Next scheduled appointment: 03/02/24 Last date of refill on this medication 12/30/23 30 tablets 1 refill [facility]12-23-2024 Miscellaneous Notes* Telephone Encounter - Tejal Yousif MA - 02/07/2024 3:23 PM EST Prescription Request: Last medication check: 01/11/24 Last physical exam: 03/04/23 Next scheduled appointment: 03/02/24 Last date of refill on this medication 12/30/23 30 tablets 1 refill documented in this [facility]11-26-2024 Evaluation + Plan note* Assessment & Plan Note - KATHERINE Escalante CNP - 01/11/2024 6:42 PM ESTAssociated Problem(s): Yeast dermatitis Within the breast folds. Keep area clean and dry and apply nystatin twice daily until clears. Follow-up for worsening or failure for symptoms to improve [facility] [id number] Miscellaneous Notes* Assessment & Plan Note - [...] place. Patient is to reach out to methods specialist to see what pain management doctor was recommended. * Assessment & Plan Note - KATHERINE Escalante CNP - 01/11/2024 6:39 PM ESTAssociated Problem(s): Bulging lumbar disc Patient did not have significant improvement with physical therapy. We will give Kenalog injection IM to see if this helps with her pain. documented in this [facility]11-26-2024 Evaluation + Plan note* Assessment & Plan Note - KATHERINE Escalante CNP - 01/11/2024 6:41 PM ESTAssociated Problem(s): Mass on back MRI showing soft tissue thickening without other concerning findings. Continue to monitor [facility] CenterFiognb65-45-1833 Evaluation + Plan note* Assessment & Plan Note - KATHERINE Escalante CNP - 01/11/2024 6:39 PM ESTAssociated Problem(s): Chronic pain syndrome Continue Percocet 5-3 25 every 8 hours as needed for severe pain. OARRS reviewed and consistent with treatment plan. CS MA is in place. Patient is to reach out to methods specialist to see what pain management doctor was recommended. [facility] [id number] NoteContinue Percocet 5-3 25 every 8 hours as needed for severe pain. OARRS reviewed and consistent with treatment plan. CS MA is in place. Patient is to reach out to methods specialist to see what pain management doctor was recommended. [facility]11-26-2024 Evaluation + Plan note* Assessment & Plan Note - KATHERINE Escalante CNP - 01/11/2024 6:39 PM ESTAssociated Problem(s): Bulging lumbar disc Patient did not have significant improvement with physical therapy. We will give Kenalog injection IM to see if this helps with her pain. [facility] CenterEjyjkm77-14-5187 History of Present illness Narrative* Korin Mack [...] place. Patient is to reach out to methods specialist to see what pain management doctor was [...] symptoms to improve Orders: - nystatin (Mycostatin) 646457 UNIT/GM powder; Apply topically 3 times daily., Starting Wed01/11/2024, Until Wed01/10/2025, Normal 4. Chronic right-sided low back pain without sciatica - triamcinolone acetonide (Kenalog-40) injection 80 mg; 80 mg, IntraMUSCular, Once, On Wed01/11/24at 1600, For 1 dose 5. Mass on back Assessment & Plan: MRI showing soft tissue thickening without other concerning findings. Continue to monitor [facility] SUBJECTIVE/OBJECTIVE: BRADFORD Moncada (: 1970) is a 53 y.o. female , Established patient, here for the evaluationof the following chief complaint(s): Follow-up Presents for follow-up chronic pain. Has been seen by methods specialist-Dr. Benson. [employer] Driver did recommend a specific landscape painter but we are unsure of whom the [...] hospice. 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 She is requesting an increase of her Percocet. Patient was advised that I am unable to increase herpain medication and that we need to get her to a landscape painter that we will manage herpain for her. [...] by mouth Nightly. 12/23/23 Yes Jeri Bridenthal, [employer] - INVASIVE MANAGER amLODIPine (Norvasc) 5 MG tablet Take 1 tablet (5 mg) by mouth daily. 11/03/23 11/24/24 Yes Jeri Trinidad APRN - GARRISON atorvastatin (Lipitor) 20 MG tablet take 1 tablet by mouth nightly 09/08/23 Yes Jeri Trinidad [employer] - [place] choline fenofibrate (Trilipix) [address] capsule Take by mouth. 11/24/21 Yes Historical Provider, dexlansoprazole (Dexilant) [address] capsule take 1 capsule by mouth once daily 07/26/23 Yes Jeri Trinidad APRN - [place]ARRISON eszopiclone (Lunesta) 3 MG tablet Take 1 tablet (3 mg) by mouth Nightly as needed for sleep. Take immediately before bedtime 01/07/24 02/06/24 Yes Jose D Goodman MD naloxone (Narcan) 4 mg/0.1 mL [...] mouth at bedtime if needed 12/30/23 Yes CHRISTIANO ArguellesN - GARRISON eszopiclone (Lunesta) 3 MG tablet [...] CNP 01/11/2024 6:43 PM documented in this [facility]11-26-2024 Instructions* Patient Instructions* KATHERINE Escalante CNP - 01/11/2024 3:20 PM EST Please reach out to Dr. Benson to see what landscape painter it was that she recommended for you. [phone] documented in this [facility]11-07-2024 Telephone encounter Note* Telephone Encounter - KATHERINE Escalante CNP - 12/23/2023 7:12 AM EST Reviewed chart. Refill appropriate. RX sent. [facility] [id number] Miscellaneous Notes* Telephone Encounter - KATHERINE Escalante CNP - 12/23/2023 7:12 AM EST Reviewed chart. Refill appropriate. RX sent. * Telephone Encounter - Tejal Yousif MA - 12/23/2023 7:07 AM EST Prescription Request: Last medication check: 12/09/23 Last physical exam: 03/04/23 Next scheduled appointment: 01/11/24 Last date of refill on this medication 06/24/23 90 day 1 refill documented in this [facility]11-07-2024 Telephone encounter Note* Telephone Encounter - Tejal Yousif MA - 12/23/2023 7:07 AM EST Prescription Request: Last medication check: 12/09/23 Last physical exam: 03/04/23 Next scheduled appointment: 01/11/24 Last date of refill on this medication 06/24/23 90 day [address] [facility] CenterJxprsx55-28-3623 Telephone encounter Note* Telephone Encounter - Korin Mack - 12/14/2023 12:21 PM EDT Last office visit note and summary faxed to number provided. [facility] [id number] Miscellaneous Notes* Telephone Encounter - Korin Mack [...] OV note. documented in this encounterSMercy Health Tiffin HospitalIpitce32-13-5942 Telephone encounter Note* Telephone Encounter - KATHERINE [...] rheumatologic medications would be helpful for her. [facility] most recent OV note. [facility] CenterIavqmo21-79-2380 Evaluation + Plan note* Assessment & Plan Note - KATHERINE Escalante CNP - 12/09/2023 5:37 PM EDTAssociated Problem(s): Hypertension Initial blood pressure elevated, repeat blood pressure good 119/77. Continue amlodipine 5 mg daily.Remember to bring home blood pressure cuff to the next office visit [facility] CenterQlrprx33-11-7926 Miscellaneous Notes* Assessment & Plan Note - [...] discuss patient's plan ofcare documented in this encounterSMercy Health Tiffin HospitalKseyxg65-63-9321 Evaluation + Plan note* Assessment & Plan [...] treatment plan. CS MA is in place [facility] [id number] Evaluation + Plan note* Assessment & Plan Note - KATHERINE Escalante CNP - 12/09/2023 5:32 PM EDTAssociated Problem(s): Arthritis Severe. Pain poorly managed [facility] CenterSofxrv18-79-2197 Evaluation + Plan note* Assessment & Plan Note - KATHERINE Escalante CNP - 12/09/2023 5:31 PM EDTAssociated Problem(s): Linear scleroderma Patient reports she has an appointment on the to establish care with Dr. Benson rheumatology.Provider will try to reach out to Dr. Benson prior to her appointment to discuss patient's plan ofcare [facility] [id number] History of Present illness Narrative* Korin Mack [...] OARRS reviewed and consistent with treatment plan. [facility] is in place Orders: - oxyCODONE-acetaminophen (Percocet) [...] recent illnesses or injuries. Dr. Casey in [place] - does her shoulder injections and has done some hip injections (bursitis) .(can only do the right shoulder d/t disorder). 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 Lives alone [...] by mouth nightly 06/24/23 Yes Jose D Goodman MD amLODIPine (Norvasc) 5 MG tablet [...] CNP 12/09/2023 5:37 PM documented in this [facility]10-12-2024 NoteOarrs reviewed and consistent with treatment plan. Rx sent. [facility] on [facility] 11-27-2023 Telephone encounter Note* Telephone Encounter - KATHERINE Escalante CNP - 11/27/2023 5:14 AM EDT Oarrs reviewed and consistent with treatment plan. Rx sent. CSMA on file [facility] CenterZxjxxd30-26-5824 Miscellaneous Notes* Telephone Encounter - KATHERINE Escalante CNP - 11/27/2023 5:14 AM EDT Oarrs reviewed and consistent with treatment plan. Rx sent. CSMA on file * Telephone Encounter - Zee Richardson MA - 11/26/2023 7:54 AM EDT Spoke to Sue, pharmacy updated to [facility] in [place]. * Telephone Encounter - Zee Richardson MA - 11/25/2023 1:46 PM EDT Images from the original note were not included. KATHERINE Escalante CNP [facility] Clinical Support Staff1 hour ago (12:26 PM) Please notify patient that I will change it back to the Lunesta 3 mg nightly dose. Please confirm pharmacy Called Sue, no answer and vm is full. * Telephone Encounter - Isabella Greer - 11/25/2023 9:33 AM EDT Name of caller: sue Contact phone number: [phone] Relationship to Patient: patient Provider: KATHERINE Escalante CNP Practice: [facility] Chief Complaint/Reason for Call: Patient is [...] call: Yes documented in this encounterSMercy Health Tiffin HospitalChvyzo06-15-2538 Telephone encounter Note* Telephone Encounter - Zee Richardson MA - 11/26/2023 7:54 AM EDT Spoke to Sue, pharmacy updated to [facility] in [place]. [facility] CenterKwolar66-97-7511 Telephone encounter Note* Telephone Encounter - Zee Richardson MA - 11/25/2023 1:46 PM EDT Images from the original note were not included. KATH[facility]INE Escalante CNP [facility] Clinical Support Staff1 hour ago (12:26 PM) Please notify patient that I will change it back to the Lunesta 3 mg nightly dose. Please confirm pharmacy Called Sue, no answer and vm is full. [facility] [id number] Telephone encounter Note* Telephone Encounter - Isabella Greer - 11/25/2023 9:33 AM EDT Name of caller: sue Contact phone number: [phone] Relationship to Patient: patient Provider: KATHERINE Escalante CNP Practice: [facility] Chief Complaint/Reason for Call: Patient is [...] business hours to return their call: Yes [facility] [id number] Evaluation + Plan note* Assessment & Plan Note - KATHERINE Escalante CNP - 11/03/2023 5:58 PM EDTAssociated Problem(s): Osteoporosis Follow-up with osteoporosis clinic as directed [facility] [id number] Miscellaneous Notes* Assessment & Plan Note - [...] bowel syndrome Stable. Patient will be seeing electronic installer * Assessment & Plan Note - KATHERINE [...] Chronic pain syndrome Provider reached out to [facility] stewardship team for further recommendations regarding [...] up in 1 month. documented in this [facility]09-18-2024 Evaluation + Plan note* Assessment & Plan [...] sleep medicine if patient has significant insomnia. [facility] CenterYmbalk39-78-2406 Evaluation + Plan note* Assessment & Plan Note - KATHERINE Escalante CNP - 11/03/2023 5:55 PM EDTAssociated Problem(s): Linear scleroderma Patient has been referred to Dr. Benson and is waiting to establish. Patient was advised that thisis a priority and she should call to get scheduled [facility] CenterDqroag24-46-4239 Evaluation + Plan note* Assessment & Plan Note - KATHERINE Escalante CNP - 11/03/2023 5:54 PM EDTAssociated Problem(s): Irritable bowel syndrome Stable. Patient will be seeing electronic installer [facility] [id number] Evaluation + Plan note* Assessment & Plan Note - KATHERINE Escalante CNP - 11/03/2023 5:54 PM EDTAssociated Problem(s): Chronic back pain Stable. Continue Percocet 5-325 mg 1 tablet every 8 hours for severe pain. OARRS reviewed and consistent with treatment plan. See other documentation under chronic pain syndrome [facility] [id number] Evaluation + Plan note* Assessment & Plan Note - KATHERINE Escalante CNP - 11/03/2023 5:54 PM EDTAssociated Problem(s): Hypertension Uncontrolled. Restart amlodipine 10 mg daily. Bring blood pressure cuff to the office at next visit [facility] CenterFfmzrz82-80-0219 Evaluation + Plan note* Assessment & Plan Note - KATHERINE Escalante CNP - 11/03/2023 5:53 PM EDTAssociated Problem(s): Chronic pain syndrome Provider reached out to [facility] pain stewardship team for further recommendations [...] sedative. Close follow up in [address] CenterPtutjl70-71-8317 History of Present illness Narrative* Korin Mack [...] Assessment & Plan: Provider reached out to [facility] pain stewardship team for further recommendations [...] & Plan: Stable. Patient will be seeing electronic installer 5. Linear scleroderma Assessment & Plan: [...] by mouth nightly 06/24/23 Yes Jose D Goodman MD amLODIPine (Norvasc) 5 MG tablet Take 1 tablet (5 mg) by mouth daily. 08/12/23 09/02/24 Yes KATEHRINE Escalante CNP atorvastatin (Lipitor) 20 MG tablet [...] CNP 11/03/2023 6:05 PM documented in this [facility]09-18-2024 Instructions* Patient Instructions* KATHERINE Escalante CNP - [...] you come back in. documented in this [facility]09-10-2024 History of Present illness Narrative* Jaison Guo MD - 10/26/2023 2:00 PM EDT Images from the original note were not included. [facility] - [address] [place] [address] Dept: [phone] Dept Chief Complaint Patient presents with New [...] level: Not on file Occupational History Comment: [employer] Tobacco Use Smoking status: Every Day [...] Narrative Lives with sister (adoptive family) in [facility].grew up in [place], adopted. Came back to [place] last July 2021, from [place] since 2010.boyfriend about 7 years ago, (were together 15 yrs). Adopted parents sold where she was living and so she moved back here. Adopted parents live up here and biological family. Linear scleroderma since age 6. 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 Social Determinants of Health Financial Resource Strain: [...] changes are present. At the L4/L5 level, soux-ex-wwvcybhh left and no significant right-sided foraminal narrowing [...] controlled 3) Opioid dependency PLAN -Reviewed Jeri Trinidad's note from 10/06/23, and MRIs of [...] on file. documented in this encounterSMercy Health Tiffin [id number] Telephone encounter Note* Telephone Encounter - Jeri Wilson - 10/13/2023 10:34 AM EDT [facility]ed [facility] [id number] Telephone encounter Note* Telephone Encounter - Jeri Trinidad APRN - [facility] - 10/12/2023 12:54 PM EDT Please keep it open. Patient said she was planning on rescheduling it when I talked to her last. [facility] [id number] Telephone encounter Note* Telephone Encounter - Jeri Wilson - 10/12/2023 11:16 AM EDT Pt given orders for CT-Lung Screen on 03/04/23. Pt sched for 06/29/23 and NC/NS to appt. No follow upscheduled at this time. Okay to cancel orders? [facility] [id number] Evaluation + Plan note* Assessment & Plan Note - KATEHRINE Escalante CNP - 10/06/2023 4:24 PM EDTAssociated Problem(s): Chronic pain syndrome Discussion with patient regarding pain management and needing to establish with another pain management provider. She does have a pain management appt in October with Dr. Guo. Patient does alsohave a medical marijuana card. reports using marijuana in the evenings and usually on the weekends.Reports this helps with her appetite due to her scleroderma. She is well aware of potential risks associated with using additional medications that may be sedative. Oarrs reviewed. Close follow-up in [address] [facility] [address] [id number] Miscellaneous Notes* Assessment & Plan Note - KATHERINE Escalante CNP - 10/06/2023 4:24 PM EDTAssociated Problem(s): Chronic pain syndrome Discussion with patient regarding pain management and needing to establish with another pain management provider. She does have a pain management appt in October with Dr. Guo. Patient does alsohave a medical marijuana card. [...] atorvastatin 20 mg nightly. documented in this [facility]08-21-2024 Miscellaneous Notes* Assessment & Plan Note - KATHERINE Escalante CNP - 10/06/2023 4:24 PM EDTAssociated Problem(s): Chronic pain syndrome Discussion with patient regarding pain management and needing to establish with another pain management provider. She does have a pain management appt in October with Dr. Guo. Patient does alsohave a medical marijuana card. [...] accepted: Level of Service documented in this [facility]08-21-2024 Evaluation + Plan note* Assessment & Plan Note - KATHERINE Escalante CNP - 10/06/2023 4:21 PM EDTAssociated Problem(s): Linear scleroderma Has been referred to rheumatology. Is waiting to establish. Was referred to Dr. Benson [place] [id number] Evaluation + Plan note* Assessment & Plan Note - KATHERINE Escalante CNP - 10/06/2023 4:21 PM EDTAssociated Problem(s): Degenerative joint disease (DJD) of lumbar spine Continue current medications. [place] [id number] Evaluation + Plan note* Assessment & Plan Note - KATHERINE Escalante CNP - 10/06/2023 4:20 PM EDTAssociated Problem(s): Insomnia Symptoms well-controlled with Lunesta 3 mg nightly [place] [id number] Evaluation + Plan note* Assessment & Plan Note - KATHERINE Escalante CNP - 10/06/2023 4:20 PM EDTAssociated Problem(s): Osteoporosis Draw labs today for the osteoporosis clinic. Follow-up with them as directed [place] [id number] Evaluation + Plan note* Assessment & Plan Note - KATHERINE Escalante CNP - 10/06/2023 4:20 PM EDTAssociated Problem(s): Hypertension Initial and repeat blood pressure elevated. Patient home blood pressure readings have been good. Patient advised to continue to take amlodipine 5 mg daily. Report home blood pressure readings to office if they are greater than 140/90. [facility] [id number] Evaluation + Plan note* Assessment & Plan Note - KATHERINE Escalante CNP - 10/06/2023 4:19 PM EDTAssociated Problem(s): Hypercholesterolemia Controlled. Continue atorvastatin 20 mg [address]ly[address] [facility] [id number] History of Present illness Narrative* KATHERINE Escalante [...] pain management appt in October with Dr. Guo. Patient does alsohave a medical marijuana card. [...] tablet by mouth nightly 06/24/23 Jose D Goodman MD amLODIPine (Norvasc) 5 MG tablet [...] of . Will send in numbers via [place] documented in this [facility]08-21-2024 History of Present illness Narrative* KATHERINE Escalante [...] pain management appt in October with Dr. Guo. Patient does alsohave a medical marijuana card. [...] tablet by mouth nightly 06/24/23 Jose D Goodman MD amLODIPine (Norvasc) 5 MG tablet [...] 3 MINUTES IF... (REFER TO PRESCRIPTION NOTES). 1/18/24 Historical Provider, oxyCODONE-acetaminophen (Percocet) 5-325 MG tablet [...] of . Will send in numbers via [place] documented in this encounterSMercy Health Tiffin [id number] Note* Addendum Note - KATHERINE Escalante CNP - 10/06/2023 3:20 PM EDTAddended by: JERI TRINIDAD on: 10/07/2023 05:12 PM Modules accepted: Level of Service [facility] [id number] Telephone encounter Note* Telephone Encounter - Missy Draper RN - 09/21/2023 6:49 PM EDT S: Patient spoke with CAC nurse regarding patient stating she needs to order picker/assembler her Rx for Luneta tonight. B: Onset [...] to begin before 09/21. Advised she can order picker/assembler the medication at her pharmacy tomorrow. Patient understands care advice. No further needs at this time. Patient instructed to call back with new or worsening symptoms. Reason for Disposition Caller has medicine question only, adult not sick, AND triager answers question Protocols used: Medication Question [id number] [facility] [id number] Miscellaneous Notes* Telephone Encounter - Missy Draper RN - 09/21/2023 6:49 PM EDT S: Patient spoke with CAC nurse regarding patient stating she needs to order picker/assembler her Rx for Luneta tonight. B: Onset [...] to begin before 09/21. Advised she can order picker/assembler the medication at her pharmacy tomorrow. Patient understands care advice. No further needs at this time. Patient instructed to call back with new or worsening symptoms. Reason for Disposition Caller has medicine question only, adult not sick, AND triager answers question Protocols used: Medication Question [id number] documented in this encounterSMercy Health Tiffin [id number] Evaluation + Plan note* Assessment & Plan [...] call us if it is over 140/[address] [facility] [id number] Miscellaneous Notes* Assessment & Plan Note - [...] pain management appt in October with Dr. Guo. Patient does alsohave a medical marijuana card. No reports using marijuana in the evenings and usually on the weekends. Reports this helps with her appetite due to her scleroderma. She is well aware of potential risks associated with using additional medications that may be sedative. Oarrs reviewed. Close follow-up in 1 month. documented in this encounterSMercy Health Tiffin [id number] Evaluation + Plan note* Assessment & Plan Note - KATHERINE Escalante CNP - 09/09/2023 5:44 PM EDTAssociated Problem(s): Insomnia Symptoms well-controlled on Lunesta 3 mg nightly as needed for sleep. OARRS reviewed and consistentwith treatment plan. CS MA in place. [facility] [id number] Evaluation + Plan note* Assessment & Plan Note - KATHERINE Escalante CNP - 09/09/2023 5:44 PM EDTAssociated Problem(s): Linear scleroderma Referral placed to rheumatology [facility] [id number] Evaluation + Plan note* Assessment & Plan Note - KATHERINE Escalante CNP - 09/09/2023 5:41 PM EDTAssociated Problem(s): Chronic pain syndrome Discussion with patient regarding pain management and needing to establish with another pain management provider. She does have a pain management appt in October with Dr. Guo. Patient does alsohave a medical marijuana card. No reports using marijuana in the evenings and usually on the weekends. Reports this helps with her appetite due to her scleroderma. She is well aware of potential risks associated with using additional medications that may be sedative. Oarrs reviewed. Close follow-up in [address] [id number] History of Present illness Narrative* Korin Mack - 09/09/2023 3:20 PM EDT Patient was identified by name and Date of . Patients blood pressure was still elevated a second time. Advised her to send in blood pressure numbers in 1-2 weeks. * Jeri Trinidad, [employer] - INVASIVE MANAGER - 09/09/2023 3:20 PM EDT Images from [...] pain management appt in October with Dr. Guo. Patient does alsohave a medical marijuana card. [...] not start before September 22, 2023., Starting Wed09/22/2023, Until Wed10/22/2023 at 2359, Normal 3. Linear [...] We have been bridging her to a landscape painter but have had difficulty finding pain management [...] by mouth nightly 06/24/23 Yes Jose D Goodman MD amLODIPine (Norvasc) 5 MG tablet Take 1 tablet (5 mg) by mouth daily. 08/12/23 09/02/24 Yes KATHERINE Escalante CNP atorvastatin (Lipitor) 20 MG tablet take 1 tablet by mouth nightly 09/08/23 Yes KTAHERINE Escalante CNP buPROPion XL (Wellbutrin XL) 150 [...] (20 mg) by mouth Nightly. 03/09/23 09/08/23 [place], [employer] - INVASIVE MANAGER Review of Systems Constitutional: Negative for activity [...] CNP 09/09/2023 5:51 PM documented in this [facility]07-24-2024 Telephone encounter Note* Telephone Encounter - KATHERINE Escalante CNP - 09/08/2023 2:11 PM EDT Reviewed chart. Refill appropriate. RX sent. [facility] [id number] Miscellaneous Notes* Telephone Encounter - KATHERINE Escalante CNP - 09/08/2023 2:11 PM EDT Reviewed chart. Refill appropriate. RX sent. * Telephone Encounter - Elsa Lawrence MA - 09/08/2023 10:33 AM EDT Prescription Request: Last medication check: 08/12/2023 Last physical exam: 03/04/2023 Next scheduled appointment: 09/09/2023 Last date of refill on this medication: 03/09/2023 documented in this [place] [id number] Telephone encounter Note* Telephone Encounter - Elsa Lawrence MA - 09/08/2023 10:33 AM EDT Prescription Request: Last medication check: 08/12/2023 Last physical exam: 03/04/2023 Next scheduled appointment: 09/09/2023 Last date of refill on this medication: 03/09/[address] [facility] [id number] Telephone encounter Note* Telephone Encounter - KATHERINE Escalante CNP - 08/26/2023 7:46 AM EDT Reviewed chart. Refill appropriate. RX sent. [place] [id number] Miscellaneous Notes* Telephone Encounter - KATHERINE Escalante CNP - 08/26/2023 7:46 AM EDT Reviewed chart. Refill appropriate. RX sent. * Telephone Encounter - Tejal Yousif MA - 08/26/2023 7:30 AM EDT Prescription Request: Last medication check: 08/12/23 Last physical exam: 03/04/23 Next scheduled appointment: 09/09/23 Last date of refill on this medication 07/13/23 documented in this encounterSMercy Health Tiffin [id number] Telephone encounter Note* Telephone Encounter - Tejal Yousif MA - 08/26/2023 7:30 AM EDT Prescription Request: Last medication check: 08/12/23 Last physical exam: 03/04/23 Next scheduled appointment: 09/09/23 Last date of refill on this medication 07/13/23 [place] [id number] Telephone encounter Note* Telephone Encounter - KATHERINE Escalante CNP - 08/23/2023 12:16 PM EDT Reviewed chart. Refill appropriate. RX sent. OARRS reviewed and consistent with treatment plan. JESSE MA in place [facility] [id number] Miscellaneous Notes* Telephone Encounter - KATHERINE Escalante CNP - 08/23/2023 12:16 PM EDT Reviewed chart. Refill appropriate. RX sent. OARRS reviewed and consistent with treatment plan. MA in place * Telephone Encounter - Tejal Yousif MA - 08/23/2023 8:01 AM EDT Prescription Request: Last medication check: 12/07/22 Last physical exam: 03/04/23 Next scheduled appointment: 09/09/23 Last date of refill on this medication 07/23/23 * Telephone Encounter - Rosa Maria Whaley RN - 08/20/2023 7:28 PM EDT S: Patient spoke with [facility] nurse regarding medication refill- callback B: [...] question Protocols used: Medication Refill and Renewal [id number] * Telephone Encounter - Willard Medeiros RN - 08/20/2023 4:21 PM EDT S: Patient spoke with [facility] nurse regarding medication refill. B: Onset [...] policy Protocols used: Medication Refill and Renewal [id number] documented in this encounterSMercy Health Tiffin HospitalSxcypo43-99-6270 Telephone encounter Note* Telephone Encounter - Tejal Yousif MA - 08/23/2023 8:01 AM EDT Prescription Request: Last medication check: 12/07/22 Last physical exam: 03/04/23 Next scheduled appointment: 09/09/23 Last date of refill on this medication 07/23/[address] [facility] [id number] Telephone encounter Note* Telephone Encounter - Rosa Maria Whaley RN - 08/20/2023 7:28 PM EDT S: Patient spoke with CAC [...] question Protocols used: Medication Refill and Renewal [id number] [facility] [id number] Telephone encounter Note* Telephone Encounter - Willard [...] policy Protocols used: Medication Refill and Renewal [id number] [facility] [id number] Evaluation + Plan note* Assessment & Plan Note - KATHERINE Escalante CNP - 08/12/2023 5:10 PM EDTAssociated Problem(s): Osteopetrosis Follow-up with osteoporosis [facility] [id number] Evaluation + Plan note* Assessment & Plan Note - KATHERINE Escalante CNP - 08/12/2023 5:10 PM EDTAssociated Problem(s): Osteoporosis Follow-up with osteoporosis clinic 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 [facility] [id number] Evaluation + Plan note* Assessment & Plan [...] reviewed and consistent with current treatment plan. [facility] [id number] History of Present illness Narrative* Verna Barnett, KATHERINE Reed CNP - 08/12/2023 3:00 PM EDT Images from the original note were not included. [facility] OSTEOPOROSIS [address] [facility] [address] Dept: [phone] Dept Loc: [phone] Visit type: New patient Reason for Visit: Osteoporosis Assessment and Plan 1. Scleroderma (HCC) 2. Age-related osteoporosis without current pathological fracture - [facility] Osteoporosis - DEXA bone density [...] not discuss medication with patient. Staff contacted [facility] who is supposed to send 01/2022 DXA scan. Labs ordered, repeat DXA ordered for 01/2024. All questions were answered and pt agrees with plan. Follow up will be determined pending labs and dxa. Advised pt on the following: Adequate dietary calcium intake of 2962-7898 mg per day through diet and/or supplements. Vitamin D3 4576-5731 IU daily. Participate in weight bearing exercises. 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 Menopause: Age ~48 HRT [...] HENT: Head: Normocephalic and atraumatic. Mouth/Throat: Lips: [place]. Mouth: Mucous membranes are moist. Dentition: Abnormal [...] D Deficiency Screening (Vit D 25) Order: [id number] Status: Final result Visible to patient: Yes (not seen) Next appt: 08/12/2023 at 03:00 PM in Osteoporosis Bone Health (SCHEDULE, [facility]) 2 Result Notes 1 Patient [...] D, (D2,D3), LC/MS/MS is recommended: order code 19215 (patients >2yrs). See Note 1 Note 1 For additional information, please refer to http://education.InferX.Violin Memory/faq/SYV297 (This link is being provided for informational/ educational purposes only.) Resulting Agency [employer] [facility] Specimen Collected: 03/04/23 10:02 Last Resulted: 03/05/23 02:57 No results found for: TSH, T8WTXUN, C4AHOBK, THYROIDAB, T4FREE No results found for: PTH Imaging/Testing: The combined time I spent reviewing previous notes/test results, evaluating the patient, providing counseling on disease process and treatment plan the day of the visit as well as documenting ezqgbhy21 minutes. I have addressed the above chronic [...] the signing physician directly. documented in this [facility]06-27-2024 Instructions* Patient Instructions* KATHERINE Shelby CNP - 08/12/2023 3:00 PM EDT Ensure 1200mg of calcium daily between diet and supplement Eat 5-6 prunes daily Schedule your DXA scan for 01/2024 * Attachments The following attachments cannot be sent through Care Everywhere. * Osteoporosis Discharge Instructions (Mauritanian) * Calcium and Vitamin D for Bone Health (Mauritanian) * Weight-Bearing Exercises (Mauritanian) documented in this [facility]06-27-2024 Evaluation + Plan note* Assessment & Plan Note - KATHERINE Escalante CNP - 08/12/2023 11:33 AM EDTAssociated Problem(s): Hypertension Uncontrolled. Blood pressure 179/91. Patient states that she ran out of her blood pressure medicine. Refill sent, patient advised to restart her blood pressure medicine [facility] [id number] History of Present illness Narrative* Korin Mack [...] completed physical therapy in June 2022 at [facility]. At that time it was not very [...] about every 3 months through [facility] [place]. Last injection about 2.5 months ago. Insomnia-uses Lunesta 3 mg nightly with good symptom control. 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 Stated she stopped going [...] by mouth nightly 06/24/23 Yes Jose D Goodman MD atorvastatin (Lipitor) 20 MG tablet [...] before bedtime 07/23/23 08/22/23 Yes Jose D Goodman MD naloxone (Narcan) 4 mg/0.1 mL nasal spray ADMINISTER A SINGLE spray INTO ONE NOSTRIL repeat in 3 MINUTES IF... (REFER TO PRESCRIPTION NOTES). 03/04/23 Yes Historical Provider, oxyCODONE-acetaminophen (Percocet) 5-325 MG tablet Take 1 tablet by mouth every 8 hours as needed for severe pain (7-10). 07/13/23 08/12/23 Yes Jerilakshmi Trinidad APRN - [place] tiZANidine (Zanaflex) 4 MG tablet take 2 tablets by mouth at bedtime if needed 07/13/23 Yes Jeri Bridenthal [employer] - [place] amLODIPine (Norvasc) 5 MG tablet 5 mg. 07/21/22 08/12/23 Yes Historical Provider, amLODIPine (Norvasc) 5 MG tablet Take 1 tablet (5 mg) by mouth daily. 08/12/23 09/02/24 Jeri KATHERINE Trinidad - [place] Review of Systems Constitutional: Negative for activity [...] CNP 08/12/2023 5:12 PM documented in this [facility]06-27-2024 Instructions* Patient Instructions* KATHERINE Escalante CNP - 08/12/2023 11:00 AM EDT Please reach out to the pain management providers that your insurance gave you to see if they manage persons that also have a medical marijuana Continue physical therapy. documented in this [facility]06-12-2024 Evaluation + Plan note* Assessment & Plan Note - KATHERINE Escalante CNP - 07/28/2023 5:26 PM EDTAssociated Problem(s): Insomnia Symptoms well-controlled on Lunesta 3 mg nightly as needed for sleep. OARRS reviewed and consistentwith treatment plan. MA is in place. [facility] [id number] Miscellaneous Notes* Assessment & Plan Note - [...] left side. documented in this encounterSMercy Health Tiffin [id number] Evaluation + Plan note* Assessment & Plan Note - KATHERINE Escalante CNP - 07/28/2023 5:22 PM EDTAssociated Problem(s): Osteoporosis Refer to osteoporosis clinic [facility] CenterNexpev26-12-2353 Evaluation + Plan note* Assessment & Plan Note - KATHERINE Escalante CNP - 07/28/2023 5:20 PM EDTAssociated Problem(s): Degenerative joint disease (DJD) of lumbar spine Continue current medications, recommend starting physical therapy. [facility] [id number] Evaluation + Plan note* Assessment & Plan Note - KATHERINE Escalante CNP - 07/28/2023 5:19 PM EDTAssociated Problem(s): Hypertension Uncontrolled. Repeat blood pressure remains elevated 176/83. Patient was advised that she needs to take her amlodipine 5 mg daily. She did not take medication today [facility] CenterFvlnde59-25-2754 Evaluation + Plan note* Assessment & Plan Note - KATHERINE Escalante CNP - 07/28/2023 5:19 PM EDTAssociated Problem(s): Mass on back Soft tissue thickening noted on MRI without other concerning findings. Continue to monitor [facility] [id number] Evaluation + Plan note* Assessment & Plan Note - KATHERINE Escalante CNP - 07/28/2023 5:18 PM EDTAssociated Problem(s): Bulging lumbar disc No bowel or bladder dysfunction, no red flags for cauda equina, MRI showed L5-S1 right-sided disc bulging. Recommend physical therapy and reevaluation of leg discrepancy to make sure lift is correct [facility] [id number] Evaluation + Plan note* Assessment & Plan Note - KATHERINE Escalante CNP - 07/28/2023 5:16 PM EDTAssociated Problem(s): Chronic pain syndrome Continue current pain management plan. Patient to establish with pain management [facility] [id number] Evaluation + Plan note* Assessment & Plan Note - KATHERINE Escalante CNP - 07/28/2023 5:15 PM EDTAssociated Problem(s): Leg length discrepancy Recommend remeasuring for lift on left side. [facility] CenterCpuyfc08-85-2502 History of Present illness Narrative* Korin Mack [...] her pain management doctor. Previously referred to [facility] and Is scheduled with [facility] on the 08/10/2023 for pain management to [...] completed physical therapy in June 2022 at [facility]. At that time it was not very helpful for her pain Right shoulder-gets injections about every 3 months through [facility] [place]. Last injection about 2 months ago. Insomnia-uses Lunesta 3 mg nightly with good symptom control. Blood pressure this am 130/80 at home- did not take amlodipine this am Prior to Admission medications Medication Sig Start Date End Date Taking? Authorizing Provider amitriptyline (Elavil) 50 MG tablet take 1 tablet by mouth nightly 06/24/23 Yes Jose D Goodman MD amLODIPine (Norvasc) 5 MG tablet [...] before bedtime 07/23/23 08/22/23 Yes Jose D Goodman MD naloxone (Narcan) 4 mg/0.1 mL [...] CNP 07/28/2023 5:26 PM documented in this [facility]06-10-2024 Telephone encounter Note* Telephone Encounter - KATHERINE Escalante CNP - 07/26/2023 2:04 PM EDT Reviewed chart. Refill appropriate. RX sent. [facility] [id number] Miscellaneous Notes* Telephone Encounter - KATHERINE Escalante CNP - 07/26/2023 2:04 PM EDT Reviewed chart. Refill appropriate. RX sent. * Telephone Encounter - Zee Richardson MA - 07/26/2023 11:38 AM EDT Prescription Request: Last medication check: 11/24/2022 Last physical exam: 03/04/2023 Next scheduled appointment: 07/28/2023 Last date of refill on this medication: 02/03/23 documented in this [facility]06-10-2024 Telephone encounter Note* Telephone Encounter - Zee Richardson MA - 07/26/2023 11:38 AM EDT Prescription Request: Last medication check: 11/24/2022 Last physical exam: 03/04/2023 Next scheduled appointment: 07/28/2023 Last date of refill on this medication: 02/03/[address] [facility] CenterAffjzv31-13-5723 Telephone encounter Note* Telephone Encounter - Jose D Goodman MD - 07/23/2023 1:05 PM EDT Refill sent [facility] CenterUxwnhg13-78-2283 Miscellaneous Notes* Telephone Encounter - Jose D Goodman MD - 07/23/2023 1:05 PM EDT Refill sent * Telephone Encounter - Rosemary Shoemaker RN - 07/23/2023 11:44 AM EDT S: Patient spoke with [facility] nurse [...] policy Protocols used: Medication Refill and Renewal [id number] documented in this [facility]2024 Telephone encounter Note* Telephone Encounter - Rosemary Shoemaker RN - 07/23/2023 11:44 AM EDT S: Patient spoke with [facility] nurse regarding B: Onset of symptoms/concern [...] policy Protocols used: Medication Refill and Renewal [id number] [facility] [id number] Telephone encounter Note* Telephone Encounter - Katie Rider RN - 07/23/2023 11:02 AM EDT Reason for Disposition Message left on unidentified voice mail. Phone number verified. Answer Assessment - Initial Assessment Questions , Protocols used: No Contact or Duplicate Contact [id number] [facility] [id number] Miscellaneous Notes* Telephone Encounter - Katie Rider RN - 07/23/2023 11:02 AM EDT Reason for Disposition Message left on unidentified voice mail. Phone number verified. Answer Assessment - Initial Assessment Questions , Protocols used: No Contact or Duplicate Contact [id number] documented in this encounterSMercy Health Tiffin HospitalKrbcak91-81-5577 Telephone encounter Note* Telephone Encounter - KATHERINE Escalante CNP - 07/13/2023 12:28 PM EDT Reviewed chart. Refill appropriate. Rx sent. Oarrs reviewed and consistent with treatment plan. Patient is to be getting established with pain management provider. [facility] CenterBxseeg54-33-4338 Miscellaneous Notes* Telephone Encounter - KATHERINE Escalante CNP - 07/13/2023 12:28 PM EDT Reviewed chart. Refill appropriate. Rx sent. Oarrs reviewed and consistent with treatment plan. Patient is to be getting established with pain management provider. * Telephone Encounter - Zee Richardson MA - 07/13/2023 9:51 AM EDT Last rx was sent in on 07/01/23, please advise. documented in this [facility]05-28-2024 Telephone encounter Note* Telephone Encounter - KATHERINE Escalante CNP - 07/13/2023 10:40 AM EDT Reviewed chart. Refill appropriate. RX sent. [address]Brnhko36-84-4694 Miscellaneous Notes* Telephone Encounter - KATHERINE Escalante CNP - 07/13/2023 10:40 AM EDT Reviewed chart. Refill appropriate. RX sent. * Telephone Encounter - Elsa Lawrence MA - 07/13/2023 9:57 AM EDT Prescription Request: Last medication check: 11/24/2022 Last physical exam: 03/04/2023 Next scheduled appointment: 07/28/2023 Last date of refill on this medication: 05/20/2023 documented in this [facility]05-28-2024 Telephone encounter Note* Telephone Encounter - Elsa Lawrence MA - 07/13/2023 9:57 AM EDT Prescription Request: Last medication check: 11/24/2022 Last physical exam: 03/04/2023 Next scheduled appointment: 07/28/2023 Last date of refill on this medication: 05/20/2023 [address]Rbkfna24-00-9238 Telephone encounter Note* Telephone Encounter - Zee Richardson MA - 07/13/2023 9:51 AM EDT Last rx was sent in on 07/01/23, please advise. [facility] CenterLfqofg10-03-4427 Telephone encounter Note* Telephone Encounter - Zee Richardson MA - 06/24/2023 1:42 PM EDT Prescription Request: Last medication check: 05-20-23 Last physical exam: 03-04-23 Next scheduled appoitment: 07-28-23 Last date of refill on this medication 01/04/23 [place] [id number] Miscellaneous Notes* Telephone Encounter - Zee Richardson MA - 06/24/2023 1:42 PM EDT Prescription Request: Last medication check: 05-20-23 Last physical exam: 03-04-23 Next scheduled appoitment: 07-28-23 Last date of refill on this medication 01/04/23 documented in this encounterSMercy Health Tiffin HospitalDoulpo72-45-5278 Telephone encounter Note* Telephone Encounter - KATHERINE Escalante CNP - 06/22/2023 12:56 PM EDT Reviewed chart. Refill appropriate. RX sent. [facility] CenterSfmbdv05-50-8681 Miscellaneous Notes* Telephone Encounter - KATHERINE Escalante CNP - 06/22/2023 12:56 PM EDT Reviewed chart. Refill appropriate. RX sent. * Telephone Encounter - Theresa Vega - 06/22/2023 10:39 AM EDT Prescription Request: Last medication check: 05-20-23 Last physical exam: 03-04-23 Next scheduled appoitment: 07-28-23 Last date of refill on this medication 05-19-22 documented in this encounterSMercy Health Tiffin HospitalDszyio41-53-6482 Telephone encounter Note* Telephone Encounter - Theresa Vega - 06/22/2023 10:39 AM EDT Prescription Request: Last medication check: 05-20-23 Last physical exam: 03-04-23 Next scheduled appoitment: 07-28-23 Last date of refill on this medication 05-19-[address] [facility] CenterOzvoif16-35-4893 Telephone encounter Note* Telephone Encounter - KATHERINE Escalante CNP - 06/08/2023 12:01 PM EDT Addendum made. CT lung DX-screening for lung cancer; tobacco use disorder [facility] CenterMlpesg63-05-5907 Miscellaneous Notes* Telephone Encounter - KATHERINE Escalante CNP - 06/08/2023 12:01 PM EDT Addendum made. CT lung DX-screening for lung cancer; tobacco use disorder * Telephone Encounter - Elina Rizvi - 06/08/2023 11:29 AM EDT Name of caller: Sue Contact phone number: [phone] Relationship to Patient: patient Provider: Dr. Goodman Practice: [facility] Chief Complaint/Reason for Call: Pt said when she schedule appt for LUNG SCREENING she advised thatthe reason for the lung screening need to be added to the rx for LUNG SCREENING Best time of day caller can be reached: any Patient advised that office/PCP has 24-48 business hours to return their call: No documented in this [place] [id number] Telephone encounter Note* Telephone Encounter - Elina Rizvi - 06/08/2023 11:29 AM EDT Name of caller: Sue Contact phone number: [phone] Relationship to Patient: patient Provider: Dr. Goodman Practice: [facility] Chief Complaint/Reason for Call: Pt said when she schedule appt for LUNG SCREENING she advised thatthe reason for the lung screening need to be added to the rx for LUNG SCREENING Best time of day caller can be reached: any Patient advised that office/PCP has 24-48 business hours to return their call: No [place] [id number] History of Present illness Narrative* KATHERINE Escalante CNP - 06/01/2023 1:59 PM EDT Referral placed to [facility]. documented in this [place] [address]-04-2024 Evaluation + Plan note* Assessment & Plan Note - KATHERINE Escalante CNP - 05/20/2023 6:04 PM EDTAssociated Problem(s): Mass on back Patient has enlarging mass on the right thoracic side. Reports increased thoracic and lumbar pain. No significant change in extremity strength or sensation. Will order MRI to further evaluate. Patient does have history of cancer (breast) [place] [id number] Miscellaneous Notes* Assessment & Plan Note - [...] records from recent Ortho specialist seen in [place]. * Assessment & Plan Note - KATHERINE Escalante CNP - 05/20/2023 6:01 PM EDTAssociated Problem(s): Insomnia Controlled. OARRS reviewed and consistent with treatment plan. Continue Lunesta as directed. * Assessment & Plan Note - KATHERINE Escalante CNP - 05/20/2023 6:00 PM EDTAssociated Problem(s): Chronic pain syndrome Continue current pain management plan. 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 documented in this encounterSMercy Health Tiffin HospitalOwsnxc09-09-7766 Evaluation + Plan note* Assessment & Plan Note - KATHERINE Escalante CNP - 05/20/2023 6:02 PM EDTAssociated Problem(s): Spondylosis of lumbar spine Patient reports worsening symptoms. Will obtain records from recent Ortho specialist seen in [place]. [facility] CenterBbjlkr61-85-4965 Evaluation + Plan note* Assessment & Plan Note - KATHERINE Escalante CNP - 05/20/2023 6:01 PM EDTAssociated Problem(s): Insomnia Controlled. OARRS reviewed and consistent with treatment plan. Continue Lunesta as directed. [facility] [id number] Evaluation + Plan note* Assessment & Plan Note - KATHERINE Escalante CNP - 05/20/2023 6:00 PM EDTAssociated Problem(s): Chronic pain syndrome Continue current pain management plan. Will try to see if we can find another landscape painter that would be able to see her sooner than October 2023. [place] [id number] Evaluation + Plan note* Assessment & Plan [...] risks associated with using the medications together. [place] [id number] History of Present illness Narrative* Korin Mack - 05/20/2023 2:40 PM EDT Patient was identified by name and Date of . YASMEEN SENT STAT TO [facility]. * KATHERINE Escalante CNP - 05/20/2023 [...] to see if we can find another landscape painter that would be able to see her [...] records from recent Ortho specialist seen in [place]. Follow up for with primary care provider [...] shoulder injections from a orthopedic doctor in [place] at [place]. Reports getting a steroid injection in the right shoulder last week. She states she also was seen by a medical reimbursement specialist whodid get x-rays and reviewed imaging from [place] where she was from before. She reports her last MRI in [place] of her back was about 5 years [...] by mouth Nightly. 01/04/23 Yes Jose D Goodman MD atorvastatin (Lipitor) 20 MG tablet [...] before May 05, 2023. 05/05/23 06/04/23 Yes Jeri Dellaal, [employer] - INVASIVE MANAGER tiZANidine (Zanaflex) 4 MG tablet take 2 tablets by mouth at bedtime if needed 04/13/23 Yes Jeri Bridenthal, [employer] - INVASIVE MANAGER amLODIPine (Norvasc) 5 MG tablet 5 mg. [...] CNP 05/20/2023 6:07 PM documented in this [facility]04-04-2024 Instructions* Patient Instructions* KATHERINE Escalante CNP - 05/20/2023 2:40 PM EDT Let me know if you do not hear to schedule the MRI in a week documented in this [facility]03-28-2024 Telephone encounter Note* Telephone Encounter - Shannon Wagner MA - 05/13/2023 4:18 PM EDT Scheduled appointment [facility] [id number] Miscellaneous Notes* Telephone Encounter - Shannon Wagner MA - 05/13/2023 4:18 PM EDT Scheduled appointment * Telephone Encounter - Kristi Holloway - 05/13/2023 9:40 AM EDT Name of caller: Sue Contact phone number: [phone] Relationship to Patient: patient Provider: new patient Practice: [facility] Chief Complaint/Reason for Call: Sue [...] at the office. Please advise. Office Name: [facility] documented in this encounterSMercy Health Tiffin HospitalKkyeko67-77-3699 Telephone encounter Note* Telephone Encounter - Kristi Holloway - 05/13/2023 9:40 AM EDT Name of caller: Sue Contact phone number: [phone] Relationship to Patient: patient Provider: new patient Practice: [facility] Chief Complaint/Reason for Call: Sue called asking the office to schedule her an apt and call andleave a msg with the date and time and what doctor it is with. Best time of day caller can be reached: any Patient advised that office/PCP has 24-48 business hours to return their call: no [facility] CenterNgxign36-43-4672 Telephone encounter Note* Telephone Encounter - Shannon Wagner MA - 05/12/2023 12:18 PM EDT Left message for patient to call the office [place] [id number] Miscellaneous Notes* Telephone Encounter - Shannon Wagner [...] [facility] documented in this encounterSMercy Health Tiffin HospitalKhkazg26-59-8917 Telephone encounter Note* Telephone Encounter - Serena Valle Cinthya - 05/12/2023 8:55 AM EDT Name of Caller: Sue Contact Reason for Appointment: Pt had an appointment previously scheduled with Dr. Gamble on 05/09 but it was cancelled. Pt states she would now like to be seen at the office. Please advise. Office Name: [facility] CenterZmhibp05-29-8609 Telephone encounter Note* Telephone Encounter - Shannon Wagner MA - 05/03/2023 5:05 PM EDT Called and offered first available explained to patient we are interventional pain management patient stated she will reach out to her pcp [facility] CenterPcxctc78-85-2561 Miscellaneous Notes* Telephone Encounter - Shannon Wagner MA - 05/03/2023 5:05 PM EDT Called and offered first available explained to patient we are interventional pain management patient stated she will reach out to her pcp * Telephone Encounter - Hailey Garcia - 05/03/2023 11:48 AM EDT Name of caller: Sue Contact phone number: [phone] Relationship to Patient: patient Provider: [facility] Practice: [...] call: Yes documented in this encounterSMercy Health Tiffin HospitalYjccpk32-06-1402 Telephone encounter Note* Telephone Encounter - Hailey Garcia - 05/03/2023 11:48 AM EDT Name of caller: Sue Contact phone number: [phone] Relationship to Patient: patient Provider: [facility] Practice: [...] business hours to return their call: Yes [facility] CenterLoykqd27-20-5079 Evaluation + Plan note* Assessment & Plan Note - KATHERINE Escalante CNP - 04/29/2023 6:22 PM EDTAssociated Problem(s): Chronic pain of both upper extremities Recommend following up with orthopedic for right shoulder pain. And seeing if you can get another steroid injection to see if it helps. [facility] CenterYfacts02-98-6211 Miscellaneous Notes* Assessment & Plan Note - [...] CS MA in place documented in this [facility]03-14-2024 Evaluation + Plan note* Assessment & Plan Note - KATHERINE Escalante CNP - 04/29/2023 6:21 PM EDTAssociated Problem(s): Skin pimple Noted on tip of the nose. No significant induration. Recommend warm compresses and continue to monitor. Follow-up for worsening symptoms. [facility] CenterPkhtpa23-87-2015 Evaluation + Plan note* Assessment & Plan Note - KATHERINE Escalante CNP - 04/29/2023 6:20 PM EDTAssociated Problem(s): Acute right-sided low back pain without sciatica Will see if prednisone burst will help with her flareup of her low back pain. No red flags. [facility] CenterLdrhxd78-61-6310 Evaluation + Plan note* Assessment & Plan [...] manage chronic pain. CS MA in place [facility] CenterGuszql10-32-0557 History of Present illness Narrative* Korin Mack - 04/29/2023 3:20 PM EDT Patient was identified by name and Date of . * KATHERINE Escalante CNP - 04/29/2023 3:20 PM EDT Images from the original note were not included. 04/29/2023 Sue Oakes Coral (: 1970) is a 52 y.o. female [...] it helps. Follow up for 3 month [facility]. SUBJECTIVE/OBJECTIVE: HPI - Sue Moncada (: 1970) [...] by mouth Nightly. 01/04/23 Yes Jose D Goodman MD atorvastatin (Lipitor) 20 MG tablet [...] mg) by mouth daily. 02/03/23 08/02/23Yes Jeri Bridenthal, [employer] - INVASIVE MANAGER eszopiclone (Lunesta) 3 MG tablet Take 1 tablet (3 mg) by mouth Nightly as needed for sleep. Take immediately before bedtime Do not start before April 20, 2023. 04/20/23 05/20/23 Yes Jeri Bridadamal [employer] - INVASIVE MANAGER naloxone (Narcan) 4 mg/0.1 mL nasal spray ADMINISTER A SINGLE spray INTO ONE NOSTRIL repeat in 3 MINUTES IF... (REFER TO PRESCRIPTION NOTES). 03/04/23 Yes Historical Provider, oxyCODONE-acetaminophen (Percocet) 5-325 MG tablet Take 1 tablet by mouth every 8 hours as needed for severe pain (7-10). Do not start before April 04, 2023. 04/04/23 05/04/23 Yes Jeri Abilioenthal [employer] - INVASIVE MANAGER tiZANidine (Zanaflex) 4 MG tablet take 2 tablets by mouth at bedtime if needed 04/13/23 Yes Jeri Dellaal [employer] - [employer]ISON amLODIPine (Norvasc) 5 MG tablet [...] 6:22 PM documented in this encounterSMercy Health Tiffin HospitalYmyrup87-39-4032 Telephone encounter Note* Telephone Encounter - KATHERINE Escalante CNP - 04/13/2023 12:38 PM EST Reviewed chart. Refill appropriate. RX sent. [facility] CenterNbrwgm17-27-5718 Miscellaneous Notes* Telephone Encounter - KATHERINE Escalante CNP - 04/13/2023 12:38 PM EST Reviewed chart. Refill appropriate. RX sent. * Telephone Encounter - Korin Mack - 04/13/2023 11:30 AM EST Prescription Request: Last medication check: 03/31/23 Last physical exam: 03/04/23 Next scheduled appointment: 04/29/23 Last date of refill on this medication 03/04/23 documented in this encounterSMercy Health Tiffin HospitalCnnuvo18-20-6963 Telephone encounter Note* Telephone Encounter - Korin Mack - 04/13/2023 11:30 AM EST Prescription Request: Last medication check: 03/31/23 Last physical exam: 03/04/23 Next scheduled appointment: 04/29/23 Last date of refill on this medication 03/04/[address] [facility] CenterXbmqql55-28-4152 Evaluation + Plan note* Assessment & Plan [...] risks associated with using the medications together. [facility] CenterDyaelt71-22-3128 Miscellaneous Notes* Assessment & Plan Note - [...] date April 20, 2023 documented in this [facility]02-14-2024 Evaluation + Plan note* Assessment & Plan Note - KATHERINE Escalante CNP - 03/31/2023 6:16 PM ESTAssociated Problem(s): Insomnia Controlled. Continue Lunesta as directed. OARRS consistent with treatment plan. Prescription sent with fill date April 20, [address] [facility] CenterWhuptj83-15-0969 History of Present illness Narrative* KATHERINE Escalante [...] before April 20, 2023., Starting Wed04/20/2023, Until Khushi 05/20/2023 at 2359, Normal Follow up in about 1 month (around 04/29/2023). SUBJECTIVE/OBJECTIVE: HPI - Sue Moncada (: 1970) [...] by mouth Nightly. 01/04/23 Yes Jose D Goodman MD amLODIPine (Norvasc) 5 MG tablet [...] before bedtime 03/04/23 04/03/23 Yes KATHERINE Escalante CNP naloxone (Narcan) 4 mg/0.1 mL nasal spray ADMINISTER A SINGLE spray INTO ONE NOSTRIL repeat in 3 MINUTES IF... (REFER TO PRESCRIPTION NOTES). 03/04/23 Yes Historical Provider, oxyCODONE-acetaminophen (Percocet) 5-325 MG tablet Take 1 tablet by mouth every 8 hours as needed for severe pain (7-10). 03/04/23 04/03/23 Yes Jeri Trinidad APRN - G[place]ISON tiZANidine (Zanaflex) 4 MG tablet take 2 tablets by mouth at bedtime if needed 03/04/23 Yes Jeri DellaalKATHERINE - GARRISON cyanocobalamin (Vitamin B-12) 1000 MCG/ML [...] CNP 03/31/2023 6:22 PM documented in this [facility]01-23-2024 Telephone encounter Note* Telephone Encounter - KATHERINE Schmitz - 03/09/2023 11:57 AM EST Pt returned call today but states she doesn't want to schedule her colonoscopy until after she seesa physician/requesting office visit. Gave her GI office number for her to call to make appointment. [facility] Phone: [phone]) 799-522101-23-2024 Miscellaneous Notes* Telephone Encounter - KATHERINE Schmitz [...] Left message to call colorectal office at [phone] * Telephone Encounter - Yazmin Rodriguez - 02/04/2023 11:27 AM EST Screening Colonoscopy (surveillance program) Called pt today to schedule colonoscopy Left message to call colorectal office at [phone] documented in this encounterSMercy Health Tiffin HospitalNcmrmg95-81-1567 Telephone encounter Note* Telephone Encounter - Edwige Des - 03/09/2023 11:42 AM EST Name of caller: Sue Contact phone number: [phone] Relationship to Patient: patient Provider: Max[facility] Practice: [facility] Chief Complaint/Reason for Call: Patient states she keeps forgetting to take it. She is not at homeat the moment and thinks she needs a refill. Pharmacy updated in chart. Please advise. Best time of day caller can be reached: Any Patient advised that office/PCP has 24-48 business hours to return their call: N/A [facility] CenterVvgped24-14-8363 Miscellaneous Notes* Telephone Encounter - Edwige Benton - 03/09/2023 11:42 AM EST Name of caller: Sue Contact phone number: [phone] Relationship to Patient: patient Provider: [facility] Practice: [...] original note were not included. Jeri Trinidad, [employer] - INVASIVE MANAGER You 19 minutes ago (11:20 AM) RB [...] to keep levels sufficient documented in this [facility]01-23-2024 Telephone encounter Note* Telephone Encounter - Zee Richardson MA - 03/09/2023 11:40 AM EST Images from the original note were not included. KATHERINE Escalante CNP You 19 minutes ago (11:20 AM) RB Ok, we will have her continue current dose of the atorvastatin 20 mg nightly. Does she need a refill? Left a message to return call. [facility] CenterOwlwex80-87-6902 Telephone encounter Note* Telephone Encounter - Zee Richardson MA - 03/08/2023 11:40 AM EST Images from the original note were not included. KATHERINE Escalante CNP You 19 minutes ago (11:20 AM) RB Ok, we will have her continue current dose of the atorvastatin 20 mg nightly. Does she need a refill? Left a message to return call. [address]Smsplj05-03-2285 Telephone encounter Note* Telephone Encounter - KATHERINE Escalante CNP - 03/08/2023 11:20 AM EST Ok, we will have her continue current dose of the atorvastatin 20 mg nightly. Does she need a refill? [address]Tflvad84-55-4044 Telephone encounter Note* Telephone Encounter - Zee Richardson MA - 03/08/2023 9:47 AM EST Notified, states she keeps forgetting to take atorvastatin and she needs to get better at that, please advise. [address]Kcgoem51-59-2384 Telephone encounter Note* Telephone Encounter - Zee [...] the counter daily to keep levels sufficient [facility] Qpjete03-13-2957 Telephone encounter Note* Telephone Encounter - Korin Mack - 03/08/2023 8:01 AM EST Faxed referral [facility] and sent info to patient via [employer]. [facility] Wnppnh61-45-8895 Miscellaneous Notes* Telephone Encounter - Korin Mack - 03/08/2023 8:01 AM EST Faxed [facility] and sent info to patient via [employer]. * Telephone Encounter - KATHERINE Escalante CNP - 03/08/2023 6:42 AM EST Referral signed * Telephone Encounter - Korin Mack - 03/05/2023 7:46 AM EST Referral changed. Ready to sign, please send encounter back to me so I can fax. Will need faxed to [phone] once completed. Give patient phone number to contact after signed. * Telephone Encounter - Korin Mack - 03/04/2023 4:59 PM EST I pended the osteo referral and noted [place] location. Below are the 2 locations [facility] has listed. [facility] [address], [facility] [place] [address] [facility] Medical Office Building [address] [facility], [address] [address] documented in this encounterSMercy Health Tiffin [id number] Telephone encounter Note* Telephone Encounter - KATHERINE Escalante CNP - 03/08/2023 6:42 AM EST Referral signed [facility] [id number] Telephone encounter Note* Telephone Encounter - Korin Mack - 03/05/2023 7:46 AM EST Referral changed. Ready to sign, please send encounter back to me so I can fax. Will need faxed to [phone] once completed. Give patient phone number to contact after signed. [facility] [id number] Telephone encounter Note* Telephone Encounter - Korin Mack - 03/04/2023 4:59 PM EST I pended the osteo referral and noted [place] location. Below are the 2 locations [facility] has listed. [facility] - [facility] [address] [facility], [facility] [place] [address] [facility] Medical Office Building [address] [facility], [address] [facility] [id number] Evaluation + Plan note* Assessment & Plan Note - KATHERINE Escalante CNP - 03/04/2023 4:28 PM ESTAssociated Problem(s): Acute bacterial conjunctivitis of right eye (Resolved 03/31/2023) Will treat for possible bacterial conjunctivitis of the right eye. Follow-up for worsening or failure for symptoms to improve [facility] [id number] Miscellaneous Notes* Assessment & Plan Note - [...] bowel syndrome Stable. Patient will be seeing electronic installer documented in this [facility]01-18-2024 Miscellaneous Notes* Assessment & Plan Note - [...] bowel syndrome Stable. Patient will be seeing electronic installer documented in this [facility]01-18-2024 Miscellaneous Notes* Assessment & Plan Note - [...] bowel syndrome Stable. 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 [id number] Evaluation + Plan note* Assessment & Plan Note - KATHERINE Escalante CNP - 03/04/2023 4:23 PM ESTAssociated Problem(s): Insomnia Controlled. Continue Lunesta 3 mg nightly as needed. OARRS reviewed and consistent with treatment plan CS MA in place [facility] [id number] Evaluation + Plan note* Assessment & Plan Note - KATHERINE Escalante CNP - 03/04/2023 4:23 PM ESTAssociated Problem(s): Osteoporosis Due to patient's complexity, will refer to osteoporosis clinic [address]18-2024 Evaluation + Plan note* Assessment & Plan Note - KATHERINE Escalante CNP - 03/04/2023 4:22 PM ESTAssociated Problem(s): Hypertension Controlled. Blood pressure 124/79, continue amlodipine 5 mg daily [address]18-2024 Evaluation + Plan note* Assessment & Plan Note - KATHERINE Escalante CNP - 03/04/2023 4:22 PM ESTAssociated Problem(s): Hypercholesterolemia Control unknown, continue atorvastatin 20 mg nightly, check cholesterol levels today [address]18-2024 Evaluation + Plan note* Assessment & Plan Note - KATHERINE Escalante CNP - 03/04/2023 4:20 PM ESTAssociated Problem(s): Depression In remission. Continue amitriptyline 50 mg nightly, Wellbutrin 150 mg daily [address]18-2024 Evaluation + Plan note* Assessment & [...] ossible risks associated with using medications together. [facility] [id number] Evaluation + Plan note* Assessment & Plan Note - KATHERINE Escalante CNP - 03/04/2023 4:16 PM ESTAssociated Problem(s): Irritable bowel syndrome Stable. Patient will be seeing electronic installer [facility] [id number] History of Present illness Narrative* Korin Mack - 03/04/2023 9:00 AM EST Patient was identified by name and Date of . HM: AWV-Today Colon-pended prior Lung screen-pended Dexa screen-pended Mammo-pended get [facility] yasmeen * KATHERINE Escalante CNP - 03/04/2023 9:00 AM EST Images from the original note were not included. [facility] [address] [facility] [address] [facility] [address] Dept: [phone] Dept Chief Complaint: Sue Moncada is an [...] bowel syndrome Stable. Patient will be seeing electronic installer Musculoskeletal Osteopetrosis Will refer to osteoporosis [...] is up in June. 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 Doing well. Had covid over addie. Whole [...] healthcare providers: Patient Care Team: Jose D Goodman MD as PCP - General (Family [...] kg/m No results found. documented in this [facility]01-18-2024 History of Present illness Narrative* Korin Mack - 03/04/2023 9:00 AM EST Patient was identified by name and Date of . HM: AWV-Today Colon-pended prior Lung screen-pended Dexa screen-pended Mammo-pended [facility] yasmeen * KATHERINE Escalante CNP - 03/04/2023 9:00 AM EST Images from the original note were not included. [facility] [address] [place] [address] Dept: [phone] Dept Chief Complaint: Sue Moncada is an [...] bowel syndrome Stable. Patient will be seeing electronic installer Musculoskeletal Osteopetrosis Will refer to osteoporosis [...] is up in June. 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 Doing well. Had covid over [employer]. Whole family had it. Dad was in [...] healthcare providers: Patient Care Team: Jose D Goodman MD as PCP - General (Family [...] kg/m No results found. documented in this [facility]01-18-2024 History of Present illness Narrative* Korin Mack - 03/04/2023 9:00 AM EST Patient was identified by name and Date of . HM: AWV-Today Colon-pended prior Lung screen-pended Dexa screen-pended Mammo-pended [facility] send yasmeen * KATHERINE Escalante CNP - 03/04/2023 9:00 AM EST Images from the original note were not included. [facility] [address] [facility] [address] Dept: [phone] Dept Chief Complaint: Sue Moncada is an [...] bowel syndrome Stable. Patient will be seeing electronic installer Musculoskeletal Osteopetrosis Will refer to osteoporosis [...] for malignant neoplasm of breast Relevant Orders Mammography (Completed) Encounter for vitamin deficiency screening [...] is up in June. 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 Doing well. Had covid over addie. Whole [...] healthcare providers: Patient Care Team: Jose D Goodman MD as PCP - General (Family [...] kg/m No results found. documented in this [facility]01-18-2024 Instructions* Patient Instructions* KATHERINE Escalante CNP - [...] Recommendations: A preventive eye exam by an pheresis specialist is recommended every 1-2 years to screen for glaucoma, cataracts, macular degeneration, and other eye disorders. A preventive dental visit is recommended every 6 months. Try to get at least 150 minutes of exercise per week or 10,000 steps per day on a pedometer. You need 1200-1500mg of calcium and 9252-8136 international units of vitamin D per day. [...] bicycle or a motorcycle documented in this [facility]01-18-2024 Instructions* Patient Instructions* KATHERINE Escalante CNP - [...] Recommendations: A preventive eye exam by an pheresis specialist is recommended every 1-2 years to screen for glaucoma, cataracts, macular degeneration, and other eye disorders. A preventive dental visit is recommended every 6 months. Try to get at least 150 minutes of exercise per week or 10,000 steps per day on a pedometer. You need 1200-1500mg of calcium and 5813-7469 international units of vitamin D per day. [...] bicycle or a motorcycle documented in this [facility]01-18-2024 Instructions* Patient Instructions* KATHERINE Escalante CNP - [...] Recommendations: A preventive eye exam by an pheresis specialist is recommended every 1-2 years to screen for glaucoma, cataracts, macular degeneration, and other eye disorders. A preventive dental visit is recommended every 6 months. Try to get at least 150 minutes of exercise per week or 10,000 steps per day on a pedometer. You need 1200-1500mg of calcium and 5427-9396 international units of vitamin D per day. [...] bicycle or a motorcycle documented in this [facility]01-18-2024 Note* Addendum Note - Jeri Wilson - 03/04/2023 9:00 AM ESTAddended by: JERI WILSON on: 02/28/2024 01:14 PM Modules accepted: Orders [facility] [id number] Telephone encounter Note* Telephone Encounter - KATHERINE Schmitz - 03/02/2023 1:24 PM EST (2nd attempt) Called today to schedule screening colonoscopy (surveillance program) Left message to call colorectal office at [phone] [facility] Phone: [phone] Miscellaneous Notes* Telephone Encounter - KATHERINE Schmitz - 03/02/2023 1:24 PM EST (2nd attempt) Called today to schedule screening colonoscopy (surveillance program) Left message to call colorectal office at [phone] * Telephone Encounter - Yazmin Rodriguez - 02/04/2023 11:27 AM EST Screening Colonoscopy (surveillance program) Called pt today to schedule colonoscopy Left message to call colorectal office at [phone] documented in this [facility]01-04-2024 Telephone encounter Note* Telephone Encounter - KATHERINE Escalante CNP - 02/18/2023 5:17 PM EST Will discuss with patient when she comes in to her next scheduled appointment. [facility] [id number] Miscellaneous Notes* Telephone Encounter - KATHERINE Escalante CNP - 02/18/2023 5:17 PM EST Will discuss with patient when she comes in to her next scheduled appointment. * Telephone Encounter - KATHERINE Escalante CNP - 02/05/2023 1:37 PM EST Called patient to go over recent results of drug screen. She is not available. Left message that natalia call her on Wednesday and go over the results of her testing. Urine drug screen results obtained on February 03, 2023. +OXY-expected +TCA- expected +THC- unexpected- patient did report using CBD vape nightly cannabidiol + oxycodone combo may incr. 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 depression, psychomotor impairment, risk of ifrespiratory depression becomes significant. documented in this [facility] [id number] Telephone encounter Note* Telephone Encounter - KATHERINE Escalante CNP - 02/05/2023 1:37 PM EST Called patient to go over recent results of drug screen. She is not available. Left message that natalia call her on Wednesday and go over the results of her testing. Urine drug screen results obtained on February 03, 2023. +OXY-expected +TCA- expected +THC- unexpected- patient did report using CBD vape nightly cannabidiol + oxycodone combo may incr. 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 depression, psychomotor impairment, risk of ifrespiratory depression becomes significant. [place] [id number] Telephone encounter Note* Telephone Encounter - Yazmin Rodriguez - 02/04/2023 11:27 AM EST Screening Colonoscopy (surveillance program) Called pt today to schedule colonoscopy Left message to call colorectal office at [phone] [place] [id number] Miscellaneous Notes* Telephone Encounter - Yazmin Rodriguez - 02/04/2023 11:27 AM EST Screening Colonoscopy (surveillance program) Called pt today to schedule colonoscopy Left message to call colorectal office at [phone] documented in this encounterSMercy Health Tiffin HospitalLuymcj43-30-0524 Evaluation + Plan note* Assessment & Plan Note - KATHERINE Escalante CNP - 02/03/2023 5:27 PM ESTAssociated Problem(s): Insomnia Controlled. Continue Lunesta 3 mg nightly [place] [id number] Evaluation + Plan note* Assessment & Plan Note - KATHERINE Escalante CNP - 02/03/2023 5:27 PM ESTAssociated Problem(s): Hypertension Initial and repeat blood pressure elevated. Increase amlodipine back up to 5 mg daily and continue to monitor blood pressure at home. Please notify office if you have any hypotensive episodes. Or if blood pressure remains above 140/90. [id number] Miscellaneous Notes* Assessment & Plan Note - [...] JESSE HUDSON in place documented in this [facility]12-20-2023 Evaluation + Plan note* Assessment & Plan Note - KATHERINE Escalante CNP - 02/03/2023 5:26 PM ESTAssociated Problem(s): Anxiety Stable. Continue amitriptyline 50 mg nightly, Wellbutrin 150 mg daily [facility] [id number] Evaluation + Plan note* Assessment & Plan [...] manage chronic pain. JESSE MA in place [facility] [id number] Evaluation + Plan note* Assessment & Plan [...] manage chronic pain. CS MA in place [facility] [id number] History of Present illness Narrative* Korin Mack [...] above 140/90. 6. [place] [facility] [facility] [place] up in about 1 month (around 03/06/2023). SUBJECTIVE/OBJECTIVE: [place] - Sue Moncada (: 1970) is a 52 y.o. female , Established patient, here for the evaluationof the following chief complaint(s): Follow-up Patient presents for follow-up for the pain management. 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 we are bridging her until she is established with a new pain managementprovider. A referral was made to [facility] pain management. And she is scheduled in April to establish. Reports that her shoulder is doing ok with the steroid injection of the right shoulder last month. States that the steroid injection would not help her left shoulder that is affected by the scleroderma. Last dose of Percocet this morning. Denies any street drug use however does use, Cbd- vapes- getting from [employer]. Does every night. Prior to Admission medications Medication Sig Start Date End Date Taking? Authorizing Provider amitriptyline (Elavil) 50 MG tablet Take 1 tablet (50 mg) by mouth Nightly. 01/04/23 Yes Jose D Goodman MD atorvastatin (Lipitor) 20 MG tablet [...] before bedtime 01/18/23 02/17/23 Yes Jose D Goodman MD oxyCODONE-acetaminophen (Percocet) 5-325 MG tablet Take 1 tablet by mouth every 8 hours as needed for severe pain (7-10). 01/06/23 02/05/23 Yes Jeri Trinidad APRN - [place] tiZANidine (Zanaflex) 4 MG tablet take 2 tablets by mouth at bedtime if needed 01/18/23 Yes Jose D Goodman MD amLODIPine (Norvasc) 5 MG tablet [...] CNP 02/03/2023 5:28 PM documented in this [facility]12-01-2023 Telephone encounter Note* Telephone Encounter - Barbra Crouch MA - 01/15/2023 10:07 AM EST Spoke to patient and scheduled [facility] [id number] Miscellaneous Notes* Telephone Encounter - Barbra Crouch MA - 01/15/2023 10:07 AM EST Spoke to patient and scheduled * Telephone Encounter - Andrew Dixon - 01/14/2023 2:26 PM EST Name of [...] Office Name: Pain Management documented in this encounterSMercy Health Tiffin [id number] Telephone encounter Note* Telephone Encounter - Andrew Dioxn - 01/14/2023 2:26 PM EST Name of [...] on her voicemail. Office Name: Pain Management [facility] [id number] History of Present illness Narrative* KATHERINE Escalante CNP - 01/06/2023 5:13 PM EST Received call previous prescription was sent to [facility] and they do not have supply available today. New prescription sent to [facility] in [place]. OARRS reviewed and consistent with treatment plan. documented in this [facility]11-22-2023 Evaluation + Plan note* Assessment & Plan Note - KATHERINE Escalante CNP - 01/06/2023 4:52 PM ESTAssociated Problem(s): Irritation of left eye Mild erythema of the inner canthus. No signs or symptoms of infection. No induration. Believe this is just mild irritation from probable friction, recommend warm or cool compress. Follow-up for any worsening symptoms. [facility] [id number] Miscellaneous Notes* Assessment & Plan Note - [...] JESSE MA in place documented in this [facility]11-22-2023 Evaluation + Plan note* Assessment & Plan [...] weeks and send readingsto office for review. [facility] [id number] Evaluation + Plan note* Assessment & Plan [...] manage chronic pain. CS MA in place [facility]11-22-2023 Telephone encounter Note* Telephone Encounter - Brooke Davis RN - 01/06/2023 4:39 PM EST S: Patient spoke with [facility] nurse regarding medication problem B: Onset of symptoms/concern today A: Patient was ordered oxycodone-acetaminophen (Percocet) 5-325 mg tablets, #90, Refills 0. (Sig: Take 1 tablet by mouth every 8 hours as needed for severe pain (7-10). Medication was originally ordered to [facility] earlier today, they will not have the medication until Wednesday. Patient is requesting the medication be sent to [facility] in [place], [place] instead. .The pharmacy closes today at 8 pm. R: Nurse reached out to the on-call provider, Khang PUENTE, a new RX will be sent to [facility].Nurse notified patient of provider's directives. No further action required. [facility] at # , spoke with pharmacist Laura, Percocet RX from today was discontinued as they will not have the med on hand, new RX was sent to [facility] by the provider. Reason for Disposition [1] Caller has URGENT medicine question about med that PCP or specialist prescribed AND [2] triagerunable to answer question Protocols used: Medication Question [id number] [facility]11-22-2023 Miscellaneous Notes* Telephone Encounter - Brooke Davis RN - 01/06/2023 4:39 PM EST S: Patient spoke with [facility] nurse regarding medication problem B: Onset of symptoms/concern today A: Patient was ordered oxycodone-acetaminophen (Percocet) 5-325 mg tablets, #90, Refills 0. (Sig: Take 1 tablet by mouth every 8 hours as needed for severe pain (7-10). Medication was originally ordered to [facility] earlier today, they will not have the medication until Wednesday. Patient is requesting the medication be sent to [facility] in [place], [place] instead. .The pharmacy closes today at 8 pm. R: Nurse reached out to the on-call provider, Khang PUENTE, a new RX will be sent to [facility].Nurse notified patient of provider's directives. No further action required. Nurse called [facility] at # , spoke with pharmacist Horacio Sanchez RX from today was discontinued as they will not have the med on hand, new RX was sent to [facility] by the provider. Reason for Disposition [1] Caller has URGENT medicine question about med that PCP or specialist prescribed AND [2] triagerunable to answer question Protocols used: Medication Question [id number] documented in this [facility]11-22-2023 Telephone encounter Note* Telephone Encounter - KATHERINE Escalante CNP - 01/06/2023 3:29 PM EST Reviewed chart. Refill appropriate. Rx sent. Oarrs reviewed. Consistent with treatment plan [facility] [id number] Miscellaneous Notes* Telephone Encounter - KATHERINE Escalante CNP - 01/06/2023 3:29 PM EST Reviewed chart. Refill appropriate. Rx sent. Oarrs reviewed. Consistent with treatment plan * Telephone Encounter - Zee Richardson MA - 01/05/2023 1:37 PM EST [facility] 12/07/22 * Telephone Encounter - Nyasia [...] 12/07/2022 (O) Report Adh: Taking: Long-term: Pharmacy: [id number] - [place], [place] - [address] [place] [address] Dose History Change Patient Sig: Take 1 [...] is out. Please advise. documented in this [facility]11-22-2023 History of Present illness Narrative* Korin Mack [...] management provider. A referral was made to [facility] pain management. Of note patientonly recently saw the [employer] message to her yesterday to reach out [...] by mouth Nightly. 01/04/23 Yes Jose D Goodman MD amLODIPine (Norvasc) 5 MG tablet [...] immediately before bedtime 12/21/22 01/20/23 Yes Jeri Bridenthal, [employer] - INVASIVE MANAGER oxyCODONE-acetaminophen (Percocet) 5-325 MG tablet Take 1 tablet by mouth every 8 hours as needed for severe pain (7-10). 12/07/22 01/06/23 Yes Jeri Bridenthal, [employer] - INVASIVE MANAGER tiZANidine (Zanaflex) 4 MG tablet take 2 [...] CNP 01/06/2023 4:52 PM documented in this [facility]11-22-2023 Instructions* Patient Instructions* KATHERINE Escalante CNP - 01/06/2023 3:20 PM EST Schedule with pain management. Please check blood pressure daily and send readings into office via mychart or call in results. documented in this [facility]11-21-2023 Telephone encounter Note* Telephone Encounter - Zee Richardson MA - 01/05/2023 1:37 PM EST [facility] 12/07/[address] [facility] [id number] Telephone encounter Note* Telephone Encounter - Nyasia Maldonado - 01/05/2023 [...] 12/07/2022 (O) Report Adh: Taking: Long-term: Pharmacy: [id number] - [place], [place] - [address] [place] [address] Dose History Change Patient Sig: Take 1 [...] so now she is out. Please advise. [facility] [id number] Telephone encounter Note* Telephone Encounter - Edwige [...] prior to picking up the medication: Yes [facility] [id number] Miscellaneous Notes* Telephone Encounter - Edwige Nunes [...] medication: Yes documented in this encounterSMercy Health Tiffin [id number] Telephone encounter Note* Telephone Encounter - Zee Richardson MA - 12/21/2022 3:26 PM EST [facility] 11/24/[address] CenterNfqdvr34-72-6011 Miscellaneous Notes* Telephone Encounter - Zee Richardson MA - 12/21/2022 3:26 PM EST [facility] 11/24/22 * Telephone Encounter - Fady Clarke [...] up the medication: Yes documented in this [facility]11-06-2023 Telephone encounter Note* Telephone Encounter - Fady [...] prior to picking up the medication: Yes [facility] [id number] Telephone encounter Note* Telephone Encounter - KATHERINE Escalante CNP - 12/01/2022 6:15 AM EDT Sabrina Tineo MD [facility] [address] [place] [phone] This looks like who she saw on 11/18/[address] [facility] [id number] Miscellaneous Notes* Telephone Encounter - KATHERINE Escalante CNP - 12/01/2022 6:15 AM EDT Sabrina Tineo MD [facility] [address] [place] [address] This looks like who she saw on 11/18/2022 * Telephone Encounter - Korin Mack - 11/30/2022 11:05 AM EDT Called patient no answer LVM to call office back. My chart message sent. If patient calls back please give patient message from Vi. * Telephone Encounter - KATHERINE Escalante CNP - 11/26/2022 5:46 PM EDT Please call patient and let her know that I recommend that she go back to the last landscape painter that she saw - Dr. Tineo and work with them to come up with a pain management plan, otherwise she may have difficulty being seen by any pain provider. documented in this encounterSMercy Health Tiffin [id number] Telephone encounter Note* Telephone Encounter - Korin Mack - 11/30/2022 11:05 AM EDT Called patient no answer LVM to call office back. My chart message sent. If patient calls back please give patient message from Vi. [facility] [id number] Telephone encounter Note* Telephone Encounter - KATHERINE Escalante CNP - 11/26/2022 5:46 PM EDT Please call patient and let her know that I recommend that she go back to the last landscape painter that she saw - Dr. Tineo and work with them to come up with a pain management plan, otherwise she may have difficulty being seen by any pain provider. [facility] [id number] Evaluation + Plan note* Assessment & Plan Note - KATHERINE Escalante CNP - 11/24/2022 5:30 PM EDTAssociated Problem(s): Linear scleroderma Obtain records. Consider reaching out to [facility] to see what specialists are available in this area to assist with further management [facility] [id number] Miscellaneous Notes* Assessment & Plan Note - KATHERINE Escalante CNP - 11/24/2022 5:30 PM EDTAssociated Problem(s): Linear scleroderma Obtain records. Consider reaching out to [facility] to see what specialists are available [...] provider for herchronic pain. documented in this [facility]10-10-2023 Evaluation + Plan note* Assessment & Plan Note - KATHERINE Escalante CNP - 11/24/2022 5:26 PM EDTAssociated Problem(s): Insomnia Discussed risks and benefits of continuing Lunesta. JESSE HUDSON obtained. OARRS reviewed and consistent with treatment plan. [facility] CenterKwemaz08-10-1328 Evaluation + Plan note* Assessment & Plan [...] a pain management provider for herchronic pain. [facility] [id number] History of Present illness Narrative* Korin Mack - 11/24/2022 9:00 AM EDT Patient was identified by name and Date of . YASMEEN sent to [facility] in [place] PCP and to [facility] at [place] [facility] * KATHERINE Escalante CNP - 11/24/2022 9:00 [...] Plan: Obtain records. Consider reaching out to [facility] to see what specialists are available in [...] and further review. Consider reaching out to [facility] for resources for adult care for patients with linear scleroderma. Follow up in about 2 weeks (around 12/08/2022) for Recheck. SUBJECTIVE/OBJECTIVE: [facility] - Sue Moncada presents as new patient, previous primary care provider [facility] physicians, last seen last week- was discharged for argumentative behavior, by previous provider. Specialists/other providers? Yes, describe: pain management- [facility], orthopedic - [facility] in [place]. Chief complaint(s): New Patient and Establish Care (/) Presents today to establish care. Patient was living in [place] from 2010- 2021, grew up in [place]. Moved back to [place] to be near family after her boyfriend of greater than 15 years and she was living alone in [place] and her family wanted her to be closer. Has complex medical history. 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 Was on long-term prednisone [...] pain management for a long time in [place] and has been having difficulty continuing her previous pain regimen with providers in [place]. Reports her pain was not being well managed and she was treating herself with CBD and the urine tested positive for THC? And she states that she was discharged from pain management. Has been having increased pain in her right hip and was seeing AN orthopedic, Dr. Casey in [place]. Reports he was doing injections for bursitis [...] level: Not on file Occupational History Comment: [employer] Tobacco Use Smoking status: Every Day Packs/day: 1.00 Years: 35.00 Additional pack years: 0.00 Total pack years: 35.00 Types: Cigarettes Smokeless tobacco: Never Vaping Use Vaping Use: Never used Substance and Sexual Activity Alcohol use: Not Currently Drug use: Not Currently Comment: CBD with THC Sexual activity: Defer Other Topics Concern Not on file Social History Narrative Lives Came back to [place] last July 2021, from [place] since 2010.boyfriend about 7 years ago, (were together 15 yrs). Adopted parents sold where she was living and so she moved back here. Adopted parents live up here and biological family. Linear scleroderma since age 6. 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 Recommend using lowest effectivedosing. documented in this [facility]10-04-2023 NoteHNO ID: [id number] Author: Sabrina Tineo MD Service: ? Author Type: Physician Type: Progress Notes Filed: 11/18/2022 4:01 PM Note Text: Sabrina Tineo MD Pain Management Pain Management [facility] [address] [address] Dept: [phone] New Patient Chronic Pain Consult Note Date: 11/18/2022 3:06 PM Referring physician: self This consult was requested by Self for my medical opinion. My final recommendations will be communicated to the referring physician by way of the shared medical record for internal providers or by letter via the [employer] for external providers. Nursing Assessment: [...] headaches CARDIOVASCULAR: Any history of cardiac arrhythmias, HI, prior CVA, or heart failure? No GASTROINTESTINAL: [...] the pain. She states she moved to [place] from [place]. She was seeing a PM near [place] since 09/2021. She received an injection with Ortho with benefit. She states she has been on percocet 7.5 mg for (more content not included)...[facility]10-04-2023 Instructions* Patient Instructions* Sabrina Tineo MD - 11/18/2022 3:41 PM EDT Complete x-rays Establish care with Dr. Aldana [phone] documented in this encounterMercy Health Tiffin Hospital10-04-2023 History of Present illness Narrative* Sabrina Tineo MD - 11/18/2022 3:06 PM EDT Images from the original note were not included. Sabrina Tineo MD Pain Management Pain Management [facility] [address] [address] Dept: [phone] New Patient Chronic Pain Consult Note Date: 11/18/2022 3:06 PM Referring physician: self This consult was requested by Self for my medical opinion. My final recommendations will be communicated to the referring physician by way of the shared medical record for internal providers or by letter via the [employer] for external providers. Nursing Assessment: [...] headaches CARDIOVASCULAR: Any history of cardiac arrhythmias, HI, prior CVA, or heart failure? No GASTROINTESTINAL: [...] the pain. She states she [place]. She was seeing a PM near [place] since 09/2021. She received an injection with Ortho with benefit. She states she has been on percocet 7.5 mg for 25 years prior to coming to [place]. Her local PM provider has tried xtempza [...] ago that were beneficial. Reviewed notes from [facility] and [place]. [place], patient was discharged from [facility] 2020 due to overtaking her medication. Patient today is asking for refills on percocet (7.5 mg) and lunesta. Patient states her previous PM physical and PCP are refusing to fill he medications and have directed her to the ED. 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 The [facility] EMR was reviewed during the visit [...] which included preparing to see the patient, lrxm-jp-retj patient care, completing clinical documentation, obtaining and/or reviewing separately obtained history, performing a medically appropriate examination, counseling and educating the pat ient/family/caregiver, and ordering medications, tests, or procedures. documented in this encounterMercy Health Tiffin Hospital09-06-2023 Evaluation + Plan note Future Scheduled Tests Laboratory* Thyroid Stimulating Hormone 10/21/22 * Complete Blood Count 10/21/22 * Lipid Profile 10/21/22 * Vitamin D Level 10/21/22 * Complete Metabolic Panel 10/21/22 [facility] 03-30-2023 Hospital Discharge instructions Patient [...] Document Reviewed: 02/02/2014 ExitCare Patient Information 2015 [employer]. This information is not intended to replace advicegiven to you by your health care provider. Make sure you discuss any questions you have with your health care provider. Follow Up Care 05/13/2022 21:47:45 With:SOLIS SHELL Address: [address] [place] [id number] [phone] When:2-4 days [facility] 03-29-2023 Emergency department Discharge summary Discharge Instructions Thank you for allowing [facility] to assist you with your healthcare needs. The following is importantdischarge information regarding your hospital visit. Diagnosis from Today's Visit Arm abrasion, complicated What to Do Next Instructions from Your Care Team No qualifying data available. Post Acute Orders No qualifying data available. You Need to Schedule the Following Appointments Follow Up with SOLIS SHELL When Within 2-4 days Where: [address] [place] [address] [phone] Allergies Cymbalta (Racing Heart) traMADol (Unknown) traZODone [...] Document Reviewed: 02/02/2014 ExitCare Patient Information 2015 [employer]. This information is not intended to replace advicegiven to you by your health care provider. Make sure you discuss any questions you have with your health care provider. Additional Information VACCINATE! IT SAVES LIVES! Members of the community who have not yet received the COVID-19 vaccine and would like to receive it can visit one of [facility] vaccine clinics. There are many vaccine clinic locations within the [facility]. For locations and available times, please visit www.gettheshot.coronavirus.[place].gov/. It is important to note that some COVID mobile vaccine clinics are held outdoors and may be canceled in rainy or stormy conditions. To learn more about pediatric vaccinations (ages 5-11), we invite you to visit the [facility] webpage. https://www.akronSmarter Agent Mobiles.org/pages/5334-Yxuyp-Hwitecdbyko-Azrfioqvqc-Zrdbt-Cmn stions.htmlTo learn more about the COVID-19 vaccine, we invite you to visit the CDC website for a list of frequently asked questions. https://www.cdc.gov/coronavirus/2019-ncov/vaccines/faq.html [facility] Patient Portal Access Instructions: Stay connected with your healthcare team and access your personal medical information anytime with the [facility] Patient Portal. If you would like a full copy of your medical records please contact the [facility] Medical Records Department Wednesday through Wednesday between 8a.m. and 4:30p.m. Please follow the directions below to access the portal: 1.Access the email account you provided upon registration to the hospital.2.Look for an invitation email from [facility].3.Open the email and access the invitation link: Accept Invitation to [facility]4.Fill in the required mariano to create your account. Sign into [email or web address] with your username and password that you [...] you will allow to register on the [facility] Patient Portal for access to your information. You can also access the [facility] Patient Portal on the LetsWombat. Simply click on Health Records under RRsat and then click on the [employer]Vinci Media logo. HOW TO SAFELY DISPOSE OF PRESCRIPTION [...] Call your local pharmacy or go to http://The True Equestrians.Zenops/9C1Mm0w to find one close to you.3.Make use of household items: Use cat litter or old coffee grounds to dispose medications if other options arenot available. Mix your drugs with these household products, seal them in an airtight container andthrow it into the garbage. Call [facility]: [phone] to be sure your drugs can be [...] CHART COPY Signatures Patient Education Materials JOSE Mejia DI(CUSTOM) Medication Leaflets My discharge plan and instructions have been reviewed and explained to me and ICORAL HOLLY M understand my current condition and have read and understand these discharge instructions. I have received a written copy of the plan/instructions. If I have questions, I am aware that I should contact my doctor. Patient/Skull Splitter Signature: Date/Time: Relationship to Patient: Witness Name/Signature: Date/Time: [facility]03-23-2023 Hospital Discharge instructions Patient Education 05/07/2022 14:41:09 Skin Abscess, Qlij-uu-Cxzn Skin Abscess A skin abscess is an [...] Follow these instructions at home: Medicines Take jybf-iqh-udmcleq and prescription medicines only as told by [...] you cannot use soapand water, use hand clay structure builder and servicer. Check your abscess every day for signs that the infection is getting worse. Check for: ?More redness, swelling, or pain. ?More fluid or blood. ?Warmth. ?More pus or a bad smell. General instructions To avoid spreading the infection: ?Do not share personal care items, towels, or hot tubs with others. ?Avoid making vgvs-za-nhyj contact with other people. Keep all follow-up [...] 07/20/2008 Document Revised: 05/25/2019 Document Reviewed: 03/17/2018 ReadWave Patient Education 2020 [employer]. Follow Up Care 05/02/2022 02:51:26 With:[facility] has been arranged for you. They should call to schedule today for first appointment, if you do not hear from them or have any questions or concerns please call [phone] Address:Unknown When:1-2 days With:SOLIS SHELL Address: [address] [place] [address]- Business (1) When:1-2 days Comments:Please call the office to schedule a follow up appointment With:PATRICK RUTLEDGE Address: [facility] [place] [address] [place] [address]- Business (1) When:1-2 days Comments:please follow up within 2 weeks [facility] 03-23-2023 Nurse Progress note This nurse has reviewed and agrees with Lillie Fernández student's charting and all medications wereverified prior to administration. Digitally Signed by Beth Leach RN on 05/07/2022 03:28 PM [facility] [id number] Note Discharge Instructions Thank you for allowing [facility] to assist you with your healthcare needs. The following is importantdischarge information regarding your hospital visit. Your Care Team SOLIS SHELL Your Diagnosis Insomnia What to do next Instructions From Your Doctor Continue antibiotics through PICC line- plan for [place] [facility] antibiotics until May 22, 2022 with weekly labs including CMP and CBC and ESR. Please follow up with Infectious disease in 2 weeks. Follow up with your PCP and the orthopedic clinic that you are established with Return to the ED/present to [facility] for new or worsening symptoms. Scheduled Follow-Up Appointments Appointment Type When With Where Contact InformationPM OV 05/25/2022 10:45 AM EDT SHRAVAN LUCAS [facility] OV Controlled Medication 06/12/2022 02:00 PM EDT SOLIS SHELL [facility] Follow Up Appointments Follow Up with [facility] has been arranged for you. They should call to schedule today for first appointment, if you do not hear from them or have any questionsor concerns please call [phone] When Within 1-2 days Follow Up with SOLIS SHELL When Within 1-2 days Why: Please call the office to schedule a follow up appointment Where: [address] [place] [address]- Business (1) Follow Up with PATRICK RUTLEDGE When Within 1-2 days Why: please follow up within 2 weeks Where: [facility] [place] [address] [place] [address]- Business (1) The Following Activity and Diet [...] a day Duration: 30 Days Pickup at [facility] New ertapenem (Invanz 1 g (Disch Rx)) 1 gram(s) IV Piggyback Once a day New lactobacillus acidophilus and bulgaricus (lactobacillus acidophilus and bulgaricus oral tablet) 1 tab(s) by mouth Three (3) times a day Duration: 10 Days Pickup at [facility] Unchanged acetaminophen-oxyCODONE (acetaminophen-oxycodone 325 [...] by mouth Daily at bedtime Pharmacy Information [facility]: [address], [place] [id number] [phone] What How Much When Comments Stop Taking [...] Follow these instructions at home: Medicines Take nked-swi-fzvgnly and prescription medicines only as told by [...] cannot use soap and water, use hand clay structure builder and servicer. Check your abscess every day for signs that the infection is getting worse. Check for: ? More redness, swelling, or pain. ? More fluid or blood. ? Warmth. ? More pus or a bad smell. General instructions To avoid spreading the infection: ? Do not share personal care items, towels, or hot tubs with others. ? Avoid making zlpu-yo-zopq contact with other people. Keep all follow-up [...] Document Reviewed: 03/17/2018 Elsevier Patient Education 2020 ReadWave Inc. Additional Information VACCINATE! IT SAVES LIVES! Members of the community who have not yet received the COVID-19 vaccine and would like to receive it can visit one of [facility] vaccine clinics. There are many vaccine clinic locations within the [facility]. For locations and available times, please visit https://gettheshot.coronavirus.[place].gov/. It is important to note that some COVID mobile vaccine clinics are held outdoors and may be canceled in rainy or stormy conditions. To learn more about pediatric vaccinations (ages 5-11), we invite you to visit the [employer] [facility] webpage. https://www.ContinuumRxs.org/pages/4957-Vodjk-Bxkcwqsnbnh-Zojxcozsbb-Ijlzk-Ktk stions.htmlTo learn more about the COVID-19 vaccine, we invite you to visit the CDC website for a list of frequently asked questions. https://www.cdc.gov/coronavirus/2019-ncov/vaccines/faq.html [facility] Patient Portal Access Instructions: Stay connected with your healthcare team and access your personal medical information anytime with the [facility] Patient Portal.If you would like a full copy of your medical records, please contact the [facility] Medical Records Department, Wednesday through Wednesday between 8a.m. and 4:30p.m. Please follow the directions below to access the portal: 1.Access the email account you provided upon registration to the hospital.2.Look for an invitation email from [facility].3.Open the email and access the invitation link: Accept Invitation to [facility]4.Fill in the required mariano to create your account. Sign into [email or web address] with your username and password that you [...] you will allow to register on the [facility] Patient Portal for access to your information. You can also access the [facility] Patient Portal on the VOICEPLATE.COM maria ines. Simply click on Health Records under RRsat and then click on the [employer]Vinci Media logo. HOW TO SAFELY DISPOSE OF PRESCRIPTION [...] Call your local pharmacy or go to http://The True Equestrians.Zenops/7R5Up4r to find one close to you.3.Make use of household items: Use cat litter or old coffee grounds to dispose medications if other options arenot available. Mix your drugs with these household products, seal them in an airtight container andthrow it into the garbage. Call [facility]: [phone] to be sure your drugs can be [...] COPY. Signatures Patient Education Materials Skin Abscess, Qtsu-ac-Tghr Medication Leaflets My discharge plan and instructions have been reviewed and explained to me and I,SUE MONCADA understand my current condition and have read and understand these discharge instructions. I have received a written copy of the plan/instructions. If I have questions, I am aware that I should contact my doctor. Patient/Skull Splitter Signature: Date/Time: Relationship to Patient: Witness Name/Signature: Date/Time: [id number] Discharge summary Date of Service 05/07/2022 Discharge [...] anemia, tobacco abuse who initially presented to [facility] on 04/29/2022 with complaints of left arm pain and cellulitis. Patient developed an ulcer on her forearm several days prior. Patient was seen by her PCP and prescribed Keflex with worsening symptoms. On arrival to [facility], patient was started on broad-spectrum antibiotics. [...] Several hospitals were contacted for transfer including [place] [facility], [facility], [facility], [facility], [facility] orthopedics and [facility] who were unable to take the patient. Patient was therefore transferred to [facility] for further evaluation. While at [facility], blood work remained stable, hemoglobin 10.2. 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 Please follow up with Infectious disease in 2 weeks. Follow up with your PCP and the orthopedic clinic that you are established with Return to the ED/present to [facility] for new or worsening symptoms. Medications New [...] for 90 Days. Refills: 3. DME (DME MISCellaneous)Bizweb.vnER TENS UNIT E 0730 reducing chronic intractable [...] intravenous injection) Follow Up Follow Up with [facility] has been arranged for you. They should call to schedule today for first appointment, if you do not hear from them or have any questionsor concerns please call [phone] When Within 1-2 days Follow Up with SOLIS SHELL When Within 1-2 days Why: Please call the office to schedule a follow up appointment Where: [address] [place] [address]- Business (1) Follow Up with PATRICK RUTLEDGE When Within 1-2 days Why: please follow up within 2 weeks Where: [facility] [place] [address] [place] [address]- Business (1) Follow Up Appointments No qualifying [...] HAMILTON FLEMING MD on 05/07/2022 02:31 PM [id number] Note IR Procedure Record Summary Primary Physician: Finalized Date/Time: 05/07/22 10:03:49 Pt. Name: SUE MONCADA Champ Schulz/Sex: 1970 Female Med Rec #: [id number] Physician: ALEXIS JAMES MD Financial #: [id number] Pt. Type: I Room/Bed: [facility]/A Admit/Disch: 05/02/22 02:48:29 - Institution: Allergies [...] Removal Method N/A Last Modified By: WILLIAM Campblel 05/06/22 15:57:25 Patient Positioning- IR Entry 1 Procedure IR Tunneled PICC Body Position OP Supine Placement SN Feet Uncrossed? Yes Pressure Points Yes Checked Last Modified By: WILLIAM Campbell 05/06/22 15:57:36 Implants- IR Entry 1 Implant/Explant Implant Implant Description [id number] Wasted? Yes Lot Number [id number] Airline Mechanic medComp Size 6F x 25 cm Expiration [...] Radiology - Action Plan Outcomes Met? Yes Mainspring Strip Gauger WILLIAM Campbell Completing Procedure Plan Last Modified By: WILLIAM Campbell 05/06/22 16:01:24 Case Comments Added angio light pack to picklist used from bag and tag product wrappers. [facility] RT-R(CV) Assembly Machine Feeder Finalized By: Sue Sweet Document Signatures Signed By: WILLIAM Campbell 05/06/22 16:18 Sue Sweet 05/07/22 10:03 [id number] Note Date of Service 05/06/22 Chief Complaint left arm cellulitis Subjective 51-year-old female with past medical history of scleroderma in the process of following with rheumatology, neuropathy, hyperlipidemia, chronic back pain follows with pain management, osteoporosis, degenerative joint disease, anemia, tobacco abuse who initially presented to [facility] on 04/29/2022 with complaints of left arm pain and cellulitis. Patient developed an ulcer on her forearm several days prior. Patient was seen by her PCP and prescribed Keflex with worsening symptoms. On arrival to [facility], patient was started on broad-spectrum antibiotics. [...] Several hospitals were contacted for transfer including [facility], [facility], [facility], [facility], [facility] orthopedics and [facility] who were unable to take the patient. Patient was therefore transferred to [facility] for further evaluation. While at [facility], blood work remained stable, hemoglobin 10.2. BMP [...] [place]. Objective [...] tablet 48 mg 1 tab(s), Oral, [place]DayM [facility] [place] order [place] luis waiting until [...] CRP elevated on admission. MRI completed at [facility] showed signs of deep fascial infectious [...] she is in process of establishing with methods specialist. Chronic neuropathy, continue home medications. HLD, continue [...] by NEHAL RAYMOND on 05/06/2022 09:45 AM [id number] Infectious disease Progress note Date of Service [...] Alexandria Morel RN on 05/05/2022 08:14 AM [facility] [id number] Infectious disease Progress note Date of Service [...] diarrhea yesterday SKIN: Upper back rash/skin irritation REPORTING PROCESS CONSULTANT-improving with no itching or pain, chest/abdominal skin [...] tablet 48 mg 1 tab(s), Oral, [place]DayM [facility] [place] order [place] luis waiting until [...] Alexandria Morel RN on 05/05/2022 08:14 AM [facility] [id number] Note Date of Service 05/05/22 Chief Complaint Left arm cellulitis Subjective 51-year-old female with past medical history of scleroderma in the process of following with rheumatology, neuropathy, hyperlipidemia, chronic back pain follows with pain management, osteoporosis, degenerative joint disease, anemia, tobacco abuse who initially presented to [facility] on 04/29/2022 with complaints of left arm pain and cellulitis. Patient developed an ulcer on her forearm several days prior. Patient was seen by her PCP and prescribed Keflex with worsening symptoms. On arrival to [facility], patient was started on broad-spectrum antibiotics. [...] Several hospitals were contacted for transfer including [place] [facility], [facility], [facility], [facility], [facility] orthopedics and [facility] who were unable to take the patient. Patient was therefore transferred to [facility] for further evaluation. While at [facility], blood work remained stable, hemoglobin 10.2. BMP [...] CRP elevated on admission. MRI completed at [facility] showed signs of deep fascial infectious [...] she is in process of establishing with methods specialist. Chronic neuropathy, continue home medications. HLD, continue [...] by NEHAL RAYMOND on 05/05/2022 10:00 AM [facility] [id number] Infectious disease Progress note Date of Service [...] - present CULTURE RESULTS/SEBLE: 04/29 Blood Cultures 2/ no growth to date -F 04/29 Wound [...] tablet 48 mg 1 tab(s), Oral, [place]DayM [facility] [place] order [place] luis waiting until [...] Alexandria Morel RN on 05/05/2022 08:14 AM [facility] [id number] Infectious disease Progress note Date of Service [...] tablet 48 mg 1 tab(s), Oral, qDayM [facility] [place] order dr luis waiting until [...] Alexandria Morel RN on 05/04/2022 01:59 PM [facility] [id number] Infectious disease Progress note Date of Service [...] gas, diarrhea SKIN: Upper back rash/skin irritation REPORTING PROCESS CONSULTANT-patient denies itching/pain, chest/abdominal skin irritation due to [...] Blood Cultures / no growth to date -P 04/29 Wound [...] tablet 48 mg 1 tab(s), Oral, qDayM [facility] [place] order dr luis waiting until [...] Alexandria Morel RN on 05/04/2022 01:59 PM [facility] [id number] Orthopaedic surgery Consult note Date of Service [...] follow up with her Ortho doc in [place] -Discussed with attending There is no further orthopedic intervention indicated at this time. Please do not hesitate to reachout or re-consult for any additional concerns or questions. Digitally Signed by JOSE ECHEVARRIA MD on 05/04/2022 08:56 AM [facility] [id number] Orthopaedic surgery Progress note Date of Service [...] follow up with her Ortho doc in [place] -Discussed with attending Digitally Signed by JOSE ECHEAVRRIA MD on 05/03/2022 11:01 AM Digitally Signed by JOSE ECHEVARRIA MD on 05/03/2022 11:14 AM [facility] [id number] Note Date of Service 05/04/22 Chief Complaint left arm cellulitis Subjective 51-year-old female with past medical history of scleroderma in the process of following with rheumatology, neuropathy, hyperlipidemia, chronic back pain follows with pain management, osteoporosis, degenerative joint disease, anemia, tobacco abuse who initially presented to [facility] on 04/29/2022 with complaints of left arm pain and cellulitis. Patient developed an ulcer on her forearm several days prior. Patient was seen by her PCP and prescribed Keflex with worsening symptoms. On arrival to [facility], patient was started on broad-spectrum antibiotics. [...] Several hospitals were contacted for transfer including [place] [facility], [facility], [facility], [facility], [facility] orthopedics and [facility] who were unable to take the patient. Patient was therefore transferred to [facility] for further evaluation. While at [facility], blood work remained stable, hemoglobin 10.2. BMP [...] tablet 48 mg 1 tab(s), Oral, qDayM [facility] [place] order [place] luis waiting until [...] CRP elevated on admission. MRI completed at [facility] showed signs of deep fascial infectious [...] 5.1. If patient were to require transfer, [facility] would need to be considered as all other hospitals in area declined-this was discussed with the patient. Will await ID recommendations. Diarrhea, will check Cdiff given ongoing antibiotic therapy Additional blood work stable. Leukocytosis resolved, patient afebrile. Scleroderma, chronic. Patient states she is in process of establishing with methods specialist. Chronic neuropathy, continue home medications. HLD, continue [...] by NEHAL RAYMOND on 05/04/2022 09:54 AM [facility] [id number] Orthopaedic surgery Consult note Date of Service [...] tablet 48 mg 1 tab(s), Oral, [place]DayM [facility] [place] order [place] luis waiting until [...] follow up with her Ortho doc in [place] -Discussed with attending There is no further orthopedic intervention indicated at this time. Please do not hesitate to reachout or re-consult for any additional concerns or questions. 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 HEENT: Head normocephalic and atraumatic. PERRLA. [place] oral mucosa. Neck: Supple. No lymphadenopathy. Lungs: [...] Imaging Results and Diagnostics Imaging last from [place]. EKG No qualifying data available. Assessment/Plan 1. [...] years oldand records can be found at [facility]. 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 HEENT: Head normocephalic and atraumatic. PERRLA. [place] oral mucosa. Neck: Supple. No lymphadenopathy. Lungs: [...] Imaging Results and Diagnostics Imaging last from [place]. EKG No qualifying data available. Assessment/Plan 1. [...] years oldand records can be found at [facility]. Due to diagnoses, multiple orthopedics feel as [...] by JADE LUGO on 05/03/2022 01:52 PM [facility] [id number] Orthopaedic surgery Progress note Date of Service [...] follow up with her Ortho doc in [place] -Discussed with attending Digitally Signed by JOSE ECHEVARRIA MD on 05/03/2022 11:01 AM Digitally Signed by JOSE ECHEVARRIA MD on 05/03/2022 11:14 AM [facility] [id number] Orthopaedic surgery Consult note Date of Service 05/02/22 Reason for Consultation LUE soft tissue infection Referring Physician ID History of Present Illness 51-year-old female with past medical history of scleroderma admitted [facility] for concerns of possible compartment syndrome of her left forearm. She was seen at [facility] and had advanced imaging performed there which showed that there might be fluid collecting within the compartments of her left forearm musculature. After multiple attempts at transferring her to a different facility she was transferred to [place]. 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 She reports [...] the ability to make a strong pinch postmaster with the thumb flexing into the index [...] 1.11 Imaging Results and Diagnostics MRI from [facility] of the L forearm: Reviewed. No definitive [...] follow up with her Ortho doc in [place] -Discussed with attending Problem List/Past Medical History [...] Domestic Concerns: None. Living situation: Home/Independent. Primary Hand Binder Stripper: Selfcare. Lives In: Single level home. Current [...] FRAN MOREAU DO on 05/03/2022 09:38 AM [facility] [id number] Infectious disease Consult note Date of Service 05/02/2022 Reason for Consultation Left arm abscess Referring Physician Dr. 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 She was admitted to [facility] on 315 and was transferred to [place] for further management. Prior to admission, patient [...] HEENT: Head is normocephalic and atraumatic. PERRLA. [place] oral mucosa. Neck: Supple. No lymphadenopathy. Lungs: [...] the left forearm and MRI completed at [facility]. Assessment/Plan 1. Cellulitis of the left forearm, [...] their scope, will consider possible transfer to [facility] for further evaluation. Concern for compartment syndrome, [...] Domestic Concerns: None. Living situation: Home/Independent. Primary Hand Binder Stripper: Selfcare. Lives In: Single level home. Current [...] by JADE LUGO on 05/02/2022 01:42 PM [facility] [id number] Orthopaedic surgery Consult note Date of Service 05/02/22 Reason for Consultation SERGIO soft tissue infection Referring Physician ID History of Present Illness 51-year-old female with past medical history of scleroderma admitted [facility] for concerns of possible compartment syndrome of her left forearm. She was seen at [facility] and had advanced imaging performed there which showed that there might be fluid collecting within the compartments of her left forearm musculature. After multiple attempts at transferring her to a different facility she was transferred to [place]. 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 She reports [...] the ability to make a strong pinch postmaster with the thumb flexing into the index [...] 1.11 Imaging Results and Diagnostics MRI from [facility] of the L forearm: Reviewed. No definitive [...] follow up with her Ortho doc in [place] -Discussed with attending Problem List/Past Medical History [...] Domestic Concerns: None. Living situation: Home/Independent. Primary Hand Binder Stripper: Selfcare. Lives In: Single level home. Current [...] FRAN MOREAU DO on 05/03/2022 09:38 AM [facility] [id number] Evaluation + Plan noteExtracted from: Title:Clinical Document Author:ALEXIS JAMES MD Date:05/02/22 [place] [facility] Hospitalist History and Physical Date of Admission: 05/02/2022 Chief complaint: Left arm cellulitis History of present illness: History is taken from talking with the nurse practitioner at [facility] as well as talking with the patient. 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 Patient was admitted to [facility] on 04/29/2022. She presented with left arm pain and cellulitis. She had developed an ulcer in her forearm several days prior to admission. She reports that she has intermittent cellulitis and ulceration of the left arm secondary to scleroderma. Patient prior to admission at [place] was on Keflex with no improvement in her symptoms. In the emergency department in [place] she was given vancomycin and Zosyn. The [...] for possible drainage. The nurse practitioner contacted [place] [facility] instrumentation technologist multiple times who declined to see the patient. [facility] was contacted and did not have any beds for 24 hours[facility] and reported that they would only accept trauma patients. [facility] declined to take the patient stating that general orthopedic surgery could do the drainage. [facility] was also notified who stated that it was out of their scope of practice. [facility] also declined to take the [...] presents on 05/02/2022 as a transfer from [facility] due to having significant left arm [...] Date:05/25/2022 10:45:00 AM Scheduled Provider:SHRAVAN LUCAS MD Location:[facility] PM Appointment Type:PM OV Appointment Date:06/12/2022 02:00:00 PM Scheduled Provider:SOLIS SHELL Location:[facility] [place] Appointment Type:PC OV Controlled Medication Future Scheduled Tests Laboratory* Hepatic Function Panel 02/02/22 * Thyroid Stimulating Hormone 02/02/22 * PTH, Intact 02/02/22 * Vitamin D Level 02/02/22 [facility] 03-18-2023 Infectious disease Consult note Date of Service 05/02/2022 Reason for Consultation Left arm abscess Referring Physician Dr. 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 She was admitted to [facility] on 315 and was transferred to [place] for further management. Prior to admission, patient [...] HEENT: Head is normocephalic and atraumatic. PERRLA. [place] oral mucosa. Neck: Supple. No lymphadenopathy. Lungs: [...] the left forearm and MRI completed at [facility]. Assessment/Plan 1. Cellulitis of the left forearm, [...] their scope, will consider possible transfer to [facility] for further evaluation. Concern for compartment syndrome, [...] Domestic Concerns: None. Living situation: Home/Independent. Primary Hand Binder Stripper: Selfcare. Lives In: Single level home. Current [...] by JADE LUGO on 05/02/2022 01:42 PM [facility] [id number] History and physical note [facility] Medicine Hospitalist History and Physical Date of Admission: 05/02/2022 Chief complaint: Left arm cellulitis History of present illness: History is taken from talking with the nurse practitioner at [facility] as well as talking with the patient. 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 Patient was admitted to [facility] on 04/29/2022. She presented with left arm pain and cellulitis. She had developed an ulcer in her forearm several days prior to admission. She reports that she has intermittent cellulitis and ulceration of the left arm secondary to scleroderma. Patient priorto admission at [place] was on Keflex with no improvement in her symptoms. In the emergency department in [place] she was given vancomycin and Zosyn. The [...] for possible drainage. The nurse practitioner contacted [place] [facility] instrumentation technologist multiple times who declined to see the patient. [facility] was contacted and did not have any beds for 24 hours. [facility] and reported that they would only accept trauma patients. [facility] declined to take the patient stating that general orthopedic surgery could do the drainage. [facility] was also notified who stated that it was out of their scope of practice. [facility] also declined to take the patient. [...] presents on 05/02/2022 as a transfer from [facility] due to having significant left arm [...] ALEXIS JAMES MD on 05/02/2022 03:59 AM [id number] Note Date of Service 05/01/2022 Chief Complaint LUE pain Subjective 51-year-old female with past medical history significant for scleroderma, DJD, hyperlipidemia. Patient presented to [facility] emergency department on 04/29/2022 with [...] by BRANDI MOSELEY on 05/01/2022 01:01 PM [facility]03-17-2023 Note Date of Service 05/01/2022 Chief Complaint LUE pain Subjective 51-year-old female with past medical history significant for scleroderma, DJD, hyperlipidemia. Patient presented to [facility] emergency department on 04/29/2022 with [...] by BRANDI MOSELEY on 05/01/2022 01:01 PM [facility]03-17-2023 Note ORIGINAL EXAMINATION: MRI OF [...] 05/01/2022 4:04:23 PM Ordering Provider: BRANDI MOSELEY [facility]03-17-2023 Note Date of Service 05/01/2022 Chief Complaint LUE pain Subjective 51-year-old female with past medical history significant for scleroderma, DJD, hyperlipidemia. Patient presented to [facility] emergency department on 04/29/2022 with [...] by BRANDI MOSELEY on 05/01/2022 01:01 PM [facility]03-17-2023 Note ORIGINAL EXAMINATION: MRI OF [...] Sign Date: 05/01/2022 4:04:23 PM Ordering Provider: [facility]03-17-2023 Note Date of Service 05/01/22 Chief [...] ulcer prevention-remains on pantoprazole Digitally Signed by Gwne Law Student on 05/01/2022 11:55 AM [facility]03-17-2023 Note ORIGINAL EXAMINATION: THREE XRAY [...] 05/01/2022 10:15:21 AM Ordering Provider: BRANDI MOSELEY [facility]03-17-2023 Note ORIGINAL EXAMINATION: TWO XRAY [...] Sign Date: 05/01/2022 10:12:41 AM Ordering Provider: BRANDICHAVEZ MOSELEY [facility]03-17-2023 Note ORIGINAL EXAMINATION: TWO XRAY [...] Sign Date: 05/01/2022 10:12:41 AM Ordering Provider: [facility]03-17-2023 Note ORIGINAL EXAMINATION: THREE XRAY VIEWS OF [...] Sign Date: 05/01/2022 10:15:21 AM Ordering Provider: [facility]03-16-2023 Note Date of Service 04/30/2022 Subjective 51-year-old female with past medical history significant for scleroderma, DJD, hyperlipidemia. Patient presented to [facility] emergency department on 04/29/2022 with [...] by BRANDI MOSELEY on 04/30/2022 02:51 PM [facility]03-15-2023 Note Date of Service 04/29/2022 Chief Complaint c/o left arm infection and increased pain. History of Present Illness Patient is a 51-year-old female, who follows with Solis Shell CNP with a past medical history significant for scleroderma, degenerative joint disease, and hyperlipidemia, presents to [facility] emergency department with the chief complaint of [...] Domestic Concerns: None. Living situation: Home/Independent. Primary Hand Binder Stripper: Selfcare. Lives In: Single level home. Current [...] by YOHANNES BOWIE on 04/29/2022 09:53 PM [facility]03-15-2023 Hospital Discharge instructions Follow Up Care 04/29/2022 12:52:43 With:SOLIS SHELLINVASIVE MANAGER Address: [address] [place] [address] [place] [address]- [phone] When:05/05/2022 14:00:00 Comments:This is your post-hospital follow-up appointment. It is in the [place] office. [facility] 03-15-2023 Evaluation + Plan noteExtracted from: Title:History and Physical Author:YOHANNES BOWIE APRN-INVASIVE MANAGER Date:04/29/22 1. Cellulitis of left arm Acute, [...] Appointment Date:05/05/2022 02:00:00 PM Scheduled Provider:SOLIS SHELL Location:[facility] Appointment Type:[facility] Hospital Follow-Up Appointment Date:05/25/2022 10:45:00 AM Scheduled Provider:SHRAVAN LUCAS MD Location:[facility] PM Appointment Type:PM OV Appointment Date:06/12/2022 02:00:00 PM Scheduled Provider:SOLIS SHELL Location:[facility] [place] Appointment Type: OV Controlled Medication Future Scheduled Tests Laboratory* Hepatic Function Panel 02/02/22 * Thyroid Stimulating Hormone 02/02/22 * PTH, Intact 02/02/22 * Vitamin D Level 02/02/22 [facility] 12-19-2022 Evaluation + Plan note [...] Panel 05/19/22 * Complete Metabolic Panel 05/26/22 [facility] 11-01-2022 Evaluation + Plan note Future Appointments Appointment Date:12/23/2021 02:30:00 PM Scheduled Provider: Location:[facility] [place] Appointment Type:PC Nurse Injection Appointment Date:12/30/2021 02:00:00 PM Scheduled Provider:SOLIS SHELL Location:[facility] MARIA INES Appointment Type:PC Wellness Medicare Appointment Date:01/14/2022 11:30:00 AM Scheduled Provider:WILLARD PERKINS APRN-INVASIVE MANAGER Location:[facility] PM Appointment Type:PM OV Future Scheduled Tests Radiology* US Soft Tissue Mass Pelvis/Hip/Low Back 12/09/21 [facility] 10-07-2022 Miscellaneous Notes* Telephone Encounter - Tea Ruiz APRN.CNS - 11/21/2021 3:35 PM EDT Noted, seen by [facility] pain management also. * Telephone Encounter - Akua Chen LPN - 11/21/2021 11:12 AM EDT Casi from [facility] called stating that patient was in there office now and she was wanting information on previous visits regarding plan for patients pain. OV was printed and faxed to [phone]. documented in this encounterMercy Health Tiffin Hospital10-07-2022 History of Present illness Narrative* Tea Ruiz APRN.ENVIRONMENTAL SERVICES PROJECT MANAGER - 11/21/2021 9:00 AM EDT SUBJECTIVE: HEPATITIS [...] for scripts. Previous PCP:Galdino Keita MD. [address] [facility] [facility] [address] [facility] [address] Pain management: Pamela MOMIN [employer] Driver: none Seen at [facility] 08/08/2021 for chronic pain medication refill. She had called our office before beingseen here asking for refills. She was referred back to her previously prescribing provider however went to the [facility] for a refill. Outside record review notes she presented with report of chronic pain since age 6. Noted relocation from [place]. Noted deformities of upper and lower extremities onexam. Last seen by her providers in [place] recently. Recent lab work. Outside records: None [...] management provider, will fax to [facility]. Difficult to have conversation as she talked [...] this encounterMercy Health Tiffin Hospital09-22-2022 NoteHNO ID: [id number] Author: Melinda Workman MA Service: ? Author Type: Technology Assistant Type: Progress Notes Filed: 11/06/2021 9:51 AM [...] suicidal ideas. The patient is nervous/anxious.[facility]09-22-2022 NoteHNO ID: [id number] Author: Marcellus Rosado MD Service: ? Author Type: Physician Type: Progress Notes Filed: 11/06/2021 9:54 AM Note Text: [facility] Today's Date: 11/06/2021 Last Visit: 10/02/2021 Name: Sue Moncada : 1970 Purpose: Follow-up Evaluation Chief complaint: Chronic RIGHT sided Pain Interval History: Sue Moncada returns today for a follow-up encounter, reporting that since last encounter, the overall pain and functional disability arising from the chief complaint has worsened. She reports she fractured her left shoulder 5 weeks ago, following with [facility]. She reports that she has been [...] below Procedures performed included below Discharged from [facility] for overtaking her pain medication (05/02/2020) Initial [...] but her last pain management provider in [place] reduced her pain medications. Recently moved from [place] to [place], she was in pain management in [place]. She was established with [facility]. She went to [facility] for opioid medication refills while waiting [...] complaint(s)): Opi (more content not included)...[facility]09-22-2022 History of Present illness Narrative* Melinda [...] not included. [facility] Today's Date: 11/06/2021 Last Visit: 10/02/2021 Name: Sue Moncada : 1970 Purpose: Follow-up Evaluation Chief complaint: Chronic RIGHT sided Pain Interval History: Sue Moncada returns today for a follow-up encounter, reporting that since last encounter, the overall pain and functional disability arising from the chief complaint has worsened. She reports she fractured her left shoulder 5 weeks ago, following with [facility]. She reports that she has been [...] below Procedures performed included below Discharged from [facility] for overtaking her pain medication (05/02/2020) Initial [...] but her last pain management provider in [place] reduced her pain medications. Recently moved from [place] to [place], she was in pain management in [place]. [facility] was [facility]. She went to [facility] for opioid medication refills while waiting [...] the chief complaint(s)): Opioids: Tramadol, Vicodin or Norman (Hydrocodone), Percocet (Oxycodone), and Morphine NSAIDS: Motrin [...] diagnosis) (M47.814) Thoracic spondylosis without myelopathy (Z79.891) senior care (current) use of opiate analgesic Impression & [...] family and they recently moved back to [place] from [place] therefore she came along with him if [...] and ORT: 10/02/2021 Completed and reviewed Functional Confucianist: No changes-continue current regimen Additional Studies: XR [...] MBA Pain Management [facility] documented in this encounterMercy Health Tiffin Hospital09-15-2022 [...] She states she recently went to a computer assembler in [place] who would debride the callus She is [...] needed. Andrew Jenkins DPM Podiatry [address] [facility] [address] Dept: [phone] Dept * Johanna Garcia LPN - 10/30/2021 10:57 AM EDT AMB ROOMING INTAKE FLOWSHEET DATA Pain Pain Level: 7 Pain Location: Foot-Left Description: Burning Duration Amount of Time: 2 Duration Units: Years Frequency: Continuous Intervention/Comfort measure: Reposition, Relaxation Patient presents with: Left Foot - New, Callous, Pain Patient states she was seeing computer assembler in [place] and has recently moved back to [place] and office in [place] has since [...] History of Present illness Narrative* Ginny Costa APRN.INVASIVE MANAGER - 10/27/2021 5:58 PM EDT Images from [...] Laterality Date EXC CYST/ABERRANT BREAST TISSUE OPEN / LESION 01/23/2010 PAST SURGICAL HISTORY OF Left [...] <130/80 Radha Moreno APRN Student TEACHING PROVIDER (Physician/PA/MULTICULTURAL INTERNSHIP) NOTE OF PERSONAL INVOLVEMENT IN CARE: I have personally seen and examined the patient and performed the medical decision-making components. I have reviewed the Advanced Practice Registered Nurse (MULTICULTURAL INTERNSHIP) Student's documentation and verified the findings in the note as written. Any additions or changes are noted in bold/italics. Signature: Ginny Costa Date: 10/27/2021 Time: 6:19 PM documented in this encounterMercy Health Tiffin Hospital09-12-2022 Instructions* Patient Instructions* Ginny Costa APRN.CNP [...] LPN * Telephone Encounter - Tea Ruiz APRN.ENVIRONMENTAL SERVICES PROJECT MANAGER - 10/06/2021 10:54 AM EDT She needs [...] Tea Ruiz APRN.DEMOND * Telephone Encounter - Grsielda Culver - 10/06/2021 10:38 AM EDT Patient [...] this encounterMercy Health Tiffin Hospital08-18-2022 NoteHNO ID: [id number] Author: Amaya Mendoza MA Service: ? Author Type: Technology Assistant Type: Progress Notes Filed: 10/02/2021 9:37 AM [...] suicidal ideas. The patient is nervous/anxious.[facility]08-18-2022 NoteHNO ID: [id number] Author: Camelia Joe APRN.INVASIVE MANAGER Service: ? Author Type: Nurse Practitioner Type: Progress Notes Filed: 10/02/2021 9:37 AM Note Text: [facility] Today's Date: 10/02/2021 Last Visit: N/A [...] but her last pain management provider in [place] reduced her pain medications. Recently moved from [place] to [place], she was in pain management in [place]. She was established with [facility]. She went to [facility] for opioid medication refills while waiting [...] the chief complaint(s)): Opioids: Tramadol, Vicodin or Norman (Hydrocodone), Percocet (Oxycodone), and Morphine NSAIDS: Motrin [...] Recent labs: No results found for: CREAT @[facility]@ No results found for: PCGLUCOSE Pain Procedures: DATE PROCEDURE IMPROVEMENT None to date at this practice Compliance: PDMP website checked and validated. All prescriptions have been APPROPRIATELY filled. No suspicious activity was identified. 10/02/2021 by Camelia Joe APRN.INVASIVE MANAGER Last Drug screen: Not Applicable Risk Assessment: [...] 0-3 (0-3, (more content not included)...[facility]08-06-2022 Miscellaneous Notes* Telephone Encounter - Viviana Chaney LPN - 09/20/2021 9:48 AM EDT Pt calling for refills. Seen HASHER MACHINE OPERATOR 08/12/21. Next appt is 11/12/21 Asking for rx today. documented in this encounterMercy Health Tiffin Hospital08-02-2022 History of Present illness Narrative* Gregorio Soto APRN.INVASIVE MANAGER - 09/16/2021 3:39 PM EDT Images from [...] of care. This note was generated using Scholar Rock software. It may contain errors in wording, punctuation, or spelling. Gregorio Soto APRN.GARRISON documented in this encounterMercy Health Tiffin Hospital06-29-2022 Miscellaneous Notes* Telephone Encounter - Keerthi Monk - 08/13/2021 9:34 AM EDT Patient has been scheduled for 10/02/21 in [place] with Camelia Joe. Keerthi Monk * Telephone Encounter - Manuela Voss - 08/12/2021 3:49 PM EDT Patient would like to be seen by pain management in [place]. Order has been placed, please assist. documented [...] PCP:Galdino Keita MD. [address] [facility] [address] Pain management: Pamela Beck [place] [employer]ardous Materials Driver: none Seen at [facility] 08/08/2021 for chronic pain medication refill. She had called our office before beingseen here asking for refills. She was referred back to her previously prescribing provider however went to the [facility] for a refill. Outside record review notes she presented with report of chronic pain since age 6. Noted relocation from [place]. No deformities of upper and lower extremities on exam. Last seen by her providers in [place] recently. Recent lab work. Outside records: None [...] suspiciousactivity was identified. 08/12/2021 by Tea Ruiz APRN.ENVIRONMENTAL SERVICES PROJECT MANAGER 2. Encounter for immunization - ICD9: V03.89, [...] ICD9: V72.31, ICD10: Z01.419 - CONSULT TO COMMISSIONER OF INTERNAL REVENUE 13. B12 deficiency - ICD9: 266.2, ICD10: [...] visit. 3 mo follow up Tea Ruiz APRN.ENVIRONMENTAL SERVICES PROJECT MANAGER [address] Ernandez to establish care Tea Ruiz APRN.ENVIRONMENTAL SERVICES PROJECT MANAGER Medical Decision Making: Problems: Moderate: 2+ stable [...] her. documented in this encounterMercy Health Tiffin HospitalDischarge summary Author Ray Wilson [facility] Note Date/Time October 15, 2024 10 :00am [facility] Medical Records Department [address] [place] [address] Emergency Department Summary 10/15/24 MR#: [id number] Acct: [id number] Name: SUE MONCADA Rep #:[id number] : 1970 54 From: Ray Escobedo PCP: Jeri Trinidad Status:PRE ER Location: ED HPI History of Present Illness Chief Complaint: Cellulitis [facility] Medical History (Updated 09/11/24 @ 14:31 by [...] Scleroderma History of chronic pain Home Medications ?Medication ?Instructions ?Recorded ?Last Taken ?Type amitriptyline 50 mg tablet 50 mg PO QHS 12/10/21 Unkno wn History atorvastatin 20 mg tablet 20 mg PO QHS 12/10/21 Unknow n History dexlansoprazole 60 mg 60 mg PO DAILY 12/10/21 Unkn own History capsule,biphase delayed release eszopiclone 3 mg tablet 3 mg PO QHS 12/10/21 Unknown History cetirizine 10 mg capsule (Zyrtec) 10 mg PO DAILY PRN P RN allergies 03/04/22 Unknown History cholecalciferol (vitamin D3) 1,250 1,250 mcg PO QWEEK 03/04/22 Unknown History mcg (50,000 unit) capsule fenofibric acid (choline) 45 mg 45 mg PO DAILY 3 Unknown History capsule,delayed release oxycodone-acetaminophen 5 mg-325 1 tab PO TID PRN 04/16 09/07 Unknown History mg tablet sulfamethoxazole 800 1 tab PO BID #14 TABLETS 09/07 Unknown Rx mg-trimethoprim 160 mg tablet Allergy/AdvReac Type Severity Reaction Status Date / Time duloxetine (From Cymbalta) Allergy Chest Verified 10/15/24 09:27 tightness trazodone Allergy Chest Verified 10/15/24 09:27 tightness tramadol AdvReac Other Verified 10/15/24 09:27 Family History Aunt Cancer lung Mother Diabetes Surgical History History of carpal tunnel surgery H/O eye surgery Hx of right knee surgery Social History household members: other details: blanca jiménez Smoking Status: Current every day smoker tobacco type: cigarettes alcohol intake: never substance use type: does not use what type of physical activity do you participate in: other details: stretches frequency: daily EXAM Physical Exam Const Vital Signs: 10/15/24 09:24 10/15/24 09:44 10/15/24 09:46 Temperature 97.6 F L 98.7 F 98.7 F Temperature Source Temporal Oral Pulse Rate 67 89 89 Respiratory Rate 17 18 18 Blood Pressure 127/87 H 129/82 H 129/82 H Blood Pressure Mean 100 97 97 Pulse Ox 100 100 100 Oxygen Delivery Method Room Air Room Air MDM MDM MDM Narrative Medical decision making narrative: HISTORY OF PRESENT ILLNESS: Chief complaint: Cellulitis 54-year-old female history of hyperlipidemia, IBS presents concern for cellulitis. Notes she was diagnosed with cellulitis at outside hospital on Wednesday (10/13/2024). No she was started on doxycycline. She is currently on day3 of . Denies vomiting. Denies history of cancer or other immunocompromisingstate. Denies history of Haresh-en-Y gastric bypass or other significant GI manipulation. REVIEW OF SYSTEMS: Pertinent positives: Rash Pertinent negatives: Vomiting, fever PHYSICAL EXAM: Nursing triage notes reviewed, Vital signs reviewed Constitutional: please see mdm Lungs: Clear to auscultation, No wheezing or rales. No increased work of breathing, no conversational dyspnea, no accessory muscle use, no nasal flaring. No respiratory distress noted Heart: Regular rate and rhythm, No murmurs, No rubs and No gallops, 2+ distal pulses (radial, femoral, posterior tibial) in all extremities Skin: Approximately 5 x 4 area of erythema noted to the left chest/axilla. No crepitus or bullae noted. No palpable abscess fluctuance induration. Some warmth noted. No obvious purulent drainage. 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 Narrative: The patient was initially hemodynamically stable, afebrile and nontoxic- appearing. Exam with signs of cellulitis noted to left chest/left axilla. No palpable abscess crepitus bullae or signs of necrotizing fasciitis. Patient's vital signs were stable. She is afebrile. She has no SIRS criteria. She did not appear toxic. She had no signs of sepsis. Exam consistent with cellulitis. She is on appropriate anti-MRSA antibiotics. No indication for hospitalization at this time. I do not see a benefit of IV antibiotics or oral antibiotics in this clinical scenario. She is appropriate for discharge home with instructions to continue take doxycycline as prescribed. Zofran also prescribed if the patient becomes nauseous. Strict return precautions were discussed. The patient and/or family, caregivers express understanding. The patient and/orfamily, caregivers agrees with the plan. Shared decision making: I will have a discussion with the patient and or visitors regarding risk/benefits of further testing or admission. They will be made aware of of the risk/benefits inherent in this decision they will be given the opportunity to voice understanding. Total critical care time today provided was at least 0 minutes. This excludes separately billable procedures. Critical care time (if documented) is secondary to the patient having high probability of clinically significant/life threatening deterioration in the patient's condition which required my urgent intervention. Impression: 1. Cellulitis 2. History of MRSA Dispo: Discharge home This note was generated with Scholar Rock dictation software. It may contain incorrectwords, spelling, and punctuation that were not noted in review of the chart prior to signing. Discharge Plan Triage Chief Complaint: Cellulitis ED Provider: Ray Wilson Dx/Rx/DC Orders Prescriptions: No Action dexlansoprazole 60 mg capsule,biphase delayed releas 60 mg PO DAILY Patient Comments: TAKE 1 CAPSULE BY MOUTH ONCE DAILY amitriptyline 50 mg tablet 50 mg PO QHS eszopiclone 3 mg tablet 3 mg PO QHS Patient Comments: TAKE 1 TABLET BY MOUTH ONCE DAILY AT BEDTIME atorvastatin 20 mg tablet 20 mg PO QHS Patient Comments: TAKE 1 TABLET BY MOUTH AT BEDTIME cholecalciferol (vitamin D3) 1,250 mcg (50,000 unit) capsule 1,250 mcg PO QWEEK fenofibric acid (choline) 45 mg capsule,delayed release(DR/EC) 45 mg PO DAILY Zyrtec 10 mg capsule 10 mg PO DAILY PRN PRN (Reason: allergies) oxycodone-acetaminophen 5-325 mg tablet 1 tab PO TID PRN sulfamethoxazole-trimethoprim 800-160 mg tablet 1 tab PO BID Qty: 14 0RF Primary Care Provider: Jeri Trinidad Referrals: Jeri Trinidad [Primary Care Provider] - Print Language: Mauritanian What to do if you have Problems For any increased pain, shortness of breath, bleeding, nausea or vomiting, chestpain, or any unexpected problems, contact your Primary Care Provider. Call [facility] ([phone]) or report to the closest Emergency Room. Call 911 if necessary. 10/15/24 1000 <Electronically signed by Ray Wilson DO> Cosigner Signature (if applicable): CC: Jeri Trinidad ~ Signed [facility] Work Phone: Evaluation + Plan note Future Appointments Appointment Date:01/14/2022 11:30:00 AM Scheduled Provider:WILLARD PERKINS Location:[facility] PM Appointment Type:PM OV Appointment Date:01/15/2022 11:15:00 [...] 12/30/21 * US Breast Left Complete 12/30/21 [facility] Evaluation + Plan note Future Appointments Appointment Date:01/29/2022 10:30:00 AM Scheduled Provider: Location:[facility] Appointment Type:MA Mammogram Screening Bilateral w/ Zev Appointment Date:01/29/2022 11:00:00 AM Scheduled Provider: Location:[facility] Appointment Type:US Breast Left Complete Appointment Date:02/25/2022 01:15:00 PM Scheduled Provider:WILLARD PERKINS Location:[facility] PM Appointment Type:PM OV Future Scheduled Tests Laboratory* Vitamin B12 Level 12/30/21 * Lipid Profile 12/30/21 * Hepatitis C Antibody IgG 12/30/21 * Complete Metabolic Panel 12/30/21 Radiology* MA Mammo Screening Bilateral w/ Zev 01/29/22 * US Breast Left Complete 01/29/22 [facility] Evaluation + Plan note Future Appointments Appointment Date:02/02/2022 01:30:00 PM Scheduled Provider:SOLIS SHELL Location:[facility] Appointment Type:PC OV Appointment Date:02/25/2022 01:15:00 PM Scheduled Provider:WILLARD PERKINS Location:[facility] PM Appointment Type:PM OV [facility] Evaluation + Plan note Future Appointments Appointment Date:05/25/2022 10:45:00 AM Scheduled Provider:SHRAVAN LUCAS MD Location:[facility] PM Appointment Type:PM OV Appointment Date:06/12/2022 02:00:00 PM Scheduled Provider:SOLIS SHELL Location:[facility] Appointment Type:PC OV Controlled Medication Future Scheduled Tests Laboratory* Hepatic Function Panel 02/02/22 * Thyroid Stimulating Hormone 02/02/22 * PTH, Intact 02/02/22 * Vitamin D Level 02/02/22 [facility] Evaluation + Plan note Future Appointments Appointment Date:05/01/2022 01:00:00 PM Scheduled Provider:SOLIS SHELL Location:[facility] Appointment Type:PC OV Appointment Date:05/25/2022 10:45:00 AM Scheduled Provider:SHRAVAN LUCAS MD Location:[facility] PM Appointment Type:PM OV Appointment Date:06/12/2022 02:00:00 PM Scheduled Provider:SOLIS SHELL Location:[facility] Appointment Type:PC OV Controlled Medication Future Scheduled Tests Laboratory* Hepatic Function Panel 02/02/22 * Thyroid Stimulating Hormone 02/02/22 * PTH, Intact 02/02/22 * Vitamin D Level 02/02/22 [facility] Evaluation + Plan note Future Appointments Appointment Date:05/15/2022 01:00:00 PM Scheduled Provider:SOLIS SHELL Location:[facility] [facility] Appointment Type:PC OV Appointment Date:05/25/2022 10:45:00 AM Scheduled Provider:SHRAVAN LUCAS MD Location:[facility] PM Appointment Type:PM OV Appointment Date:06/12/2022 02:00:00 PM Scheduled Provider:SOLIS SHELL Location:[employer] [facility] Appointment Type:PC OV Controlled Medication [...] Panel 05/19/22 * Complete Metabolic Panel 05/26/22 [facility] Evaluation + Plan note Future Appointments Appointment Date:06/12/2022 02:00:00 PM Scheduled Provider:SOLIS SHELL Location:[employer] [facility] Appointment Type:PC OV Controlled Medication Appointment Date:07/01/2022 09:45:00 AM Scheduled Provider:WILLARD PERKINS Location:[facility] PM Appointment Type:PM OV Future Scheduled [...] Panel 05/19/22 * Complete Metabolic Panel 05/26/22 [facility] Evaluation + Plan note Future Appointments Appointment Date:07/29/2022 10:00:00 AM Scheduled Provider:WILLARD PERKINS Location:[facility] Appointment Type:PM OV Future Scheduled Tests Laboratory* [...] Panel 05/19/22 * Complete Metabolic Panel 05/26/22 [facility] Evaluation + Plan note Future Appointments Appointment Date:08/12/2022 03:30:00 PM Scheduled Provider: Location:[facility] Appointment Type:GI OV Consult Appointment Date:10/19/2022 02:00:00 PM Scheduled Provider:TEA LILLY PA-C Location:[facility] Appointment Type:PC OV Controlled Medication Future [...] Panel 05/19/22 * Complete Metabolic Panel 05/26/22 [facility] Evaluation noteNo assessment information available [facility] Work Phone: Evaluation note* Diagnosis [...] Corns and callosities [facility] Ear infection- Primary Unspecified otitis media [facility] Diagnosis Insomnia, unspecified type- Primary [facility] Diagnosis Chronic pain syndrome Personal history of scleroderma Personal history of other musculoskeletal disorders [facility] Diagnosis Right calf pain- Primary Cellulitis of right lower leg Cellulitis and abscess of leg, except foot Itching Unspecified pruritic disorder Elevated blood pressure reading without diagnosis of hypertension [facility] Diagnosis Equinus contracture of ankle- Primary Pes cavus Talipes cavus Callus of foot Corns and callosities Acquired deformity of left lower leg Other acquired deformity of other parts of limb Chronic pain syndrome Personal history of scleroderma Personal history of other musculoskeletal disorders [facility] Diagnosis Lumbar spondylosis- Primary Lumbosacral spondylosis without myelopathy Thoracic spondylosis without myelopathy senior care (current) use of opiate analgesic [facility] Diagnosis Onset Date Resolution Status Closed left clavicular fracture noneactive Closed left clavicular fracture noneactive Closed left clavicular fracture noneactive [facility] Work Phone: Evaluation note* Diagnosis Chronic pain syndrome- Primary Personal history of scleroderma Personal history of other musculoskeletal disorders Acquired arm deformity, left Acquired deformity of left lower leg Other acquired deformity of other parts of limb [facility] Diagnosis Onset Date Resolution Status Arthritis of left glenohumeral joint noneactive Closed left clavicular fracture noneactive Contusion of right hip nonea ctive Bony sclerosis acute Bursitis of right hip acute Enchondroma of bone chronic [facility] Work Phone: Evaluation note* Diagnosis Onset Date Resolution Status Arthritis of left glenohumeral joint noneactive Closed left clavicular fracture noneactive Contusion of right hip nonea ctive Bony sclerosis acute Bursitis of right hip acute Enchondroma of bone chronic Bursitis of right hip acute Enchondroma of bone chronic [facility] Work Phone: Evaluation note* Diagnosis Onset Date Resolution Status Bony sclerosis acute Bursitis of right hip acute Enchondroma of bone chronic Bursitis of right hip acute Enchondroma of bone chronic [facility] Work Phone: Evaluation note* Diagnosis Onset Date Resolution Status Bursitis of right hip acute DDD (degenerative disc disease), lumbar acute Iliotibial band syndrome of right side acute Bursitis of right hip acute DDD (degenerative disc disease), lumbar acute Iliotibial band syndrome of right side acute [facility] Work Phone: Evaluation note* Diagnosis Lumbar spondylosis- Primary Lumbosacral spondylosis without myelopathy Low back pain, unspecified back pain laterality, unspecified chronicity, unspecified whether sciatica present Thoracic spondylosis without myelopathy Chronic, continuous use of opioids Opioid type dependence, continuous [facility] this encounter [facility] [place] [facility]* Diagnosis Insomnia, unspecified type- Primary 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 Diagnosis Insomnia, unspecified type 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 Diagnosis Chronic pain syndrome- Primary Irritation of left eye Primary hypertension Unspecified essential hypertension 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 Primary hypertension Unspecified essential hypertension Colon cancer screening Special screening for malignant neoplasms, colon [facility] Diagnosis Onset Date Resolution Status Scleroderma acute [facility] Work Phone: Evaluation note* Diagnosis [...] [facility]* Diagnosis Osteoporosis, unspecified osteoporosis type, unspecified pathological fracture presence- Primary Osteopetrosis [facility] Diagnosis Hypercholesterolemia- Primary Pure hypercholesterolemia [...] both upper extremities [facility] Diagnosis Mass on back- Primary Localized superficial swelling, mass, or lump Chronic midline thoracic back pain Systemic sclerosis (HCC) Systemic sclerosis Chronic pain syndrome Insomnia, unspecified type Spondylosis of lumbar spine [facility] Diagnosis Chronic pain syndrome- Primary Chronic midline thoracic back pain Systemic sclerosis (HCC) Systemic sclerosis 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 Chronic pain of both upper extremities Arthritis of left glenohumeral joint [facility]* Diagnosis Routine general medical examination [...] Tobacco use disorder [facility]* Diagnosis Insomnia, unspecified type documented [facility]* Diagnosis Mass on back Localized superficial swelling, mass, or lump Systemic sclerosis (HCC) Systemic sclerosis documented in [facility]* Diagnosis Chronic midline thoracic back pain documented [facility]* Diagnosis Chronic pain syndrome documented in this encounter [facility]* Diagnosis Bulging lumbar disc- Primary Leg length discrepancy Unequal leg length (acquired) Other osteoarthritis of spine, lumbar region Primary hypertension Unspecified essential hypertension Chronic pain syndrome Mass on back Localized superficial swelling, mass, or lump Osteoporosis, unspecified osteoporosis type, unspecified pathological fracture presence Primary insomnia Persistent disorder of initiating or maintaining sleep documented [facility] this [facility]* Diagnosis Age-related osteoporosis without current pathological fracture- Primary Scleroderma (HCC) Systemic sclerosis Vitamin D deficiency Fatigue, unspecified type documented in this encounter [facility]* Diagnosis Chronic pain syndrome- Primary Linear scleroderma Circumscribed scleroderma Primary hypertension Unspecified essential hypertension Osteopetrosis Osteoporosis, unspecified osteoporosis type, unspecified pathological fracture presence documented in this encounter [facility]* Diagnosis Insomnia, unspecified type documented in this encounter [facility]* Diagnosis Chronic midline thoracic back pain documented in this encounter [facility]* Diagnosis Hypercholesterolemia Pure hypercholesterolemia documented in this encounter [facility]* Diagnosis Chronic pain syndrome- Primary Insomnia, unspecified type Linear scleroderma Circumscribed scleroderma Primary hypertension Unspecified essential hypertension documented in this encounter [facility]* Diagnosis Chronic pain syndrome- Primary Insomnia, unspecified type Linear scleroderma Circumscribed scleroderma Primary hypertension Unspecified essential hypertension Osteoporosis, unspecified osteoporosis type, unspecified pathological fracture presence Other osteoarthritis of spine, lumbar region Hypercholesterolemia Pure hypercholesterolemia documented in this encounter [facility]* Diagnosis Chronic pain syndrome- Primary [...] Chronic pain syndrome documented in this encounter [facility]* Diagnosis Insomnia, unspecified type- Primary [...] Insomnia, unspecified type documented in this encounter [facility]* Diagnosis Insomnia, unspecified type- Primary [...] Chronic pain syndrome documented in this encounter [facility]* Diagnosis Insomnia, unspecified type- Primary [...] (HCC) Systemic sclerosis [facility]* Diagnosis Onset Date Resolution Status Admit Date Bursitis of right shoulder acute September 11, 2024 2:23pm Right shoulder pain acute September 11, 2024 2:23pm [facility] Work Phone: Evaluation note* Diagnosis Insomnia, [...] Impacted cerumen of left ear Impacted cerumen Cellulitis of chest wall- Primary Cellulitis and abscess of trunk [facility] [...] Impacted cerumen of left ear Impacted cerumen Cellulitis of chest wall- Primary Cellulitis and abscess of trunk Abscess- Primary Cellulitis and abscess of unspecified site Cellulitis of chest wall Cellulitis and abscess of trunk [facility] [...] Impacted cerumen of left ear Impacted cerumen Cellulitis of chest wall- Primary Cellulitis and abscess of trunk Insomnia, unspecified type [facility] N[facility] No data available for this section [facility] Discharge instructions Additional Instructions You need to follow-up with the pain management.[facility] Work Phone: Hospital Discharge instructions No data available for this section [facility] Discharge instructionsAdditional Instructions Thank you for trusting us with your care today! Your exam is consistent with cellulitis. I did not palpate an abscess. Cellulitis is superficial skin infection. Reviewed antibiotics. Please continue take antibiotics as prescribed until course is complete. Please take Zofran as needed for nausea and vomiting Please take Tylenol (2 pills, 650 mg), ibuprofen (2 pills, 400 mg) every 6 hours as needed for pain and fever control. Please return to the emergency department if your symptoms change or worsen. Specifically your rash worsens suddenly. Please follow with your primary care physician for further outpatient evaluation and management.[facility] Work Phone: Instructions* Attachments The following attachments cannot be sent through Care Everywhere. * Flu Vaccine (Mauritanian) documented in this [facility] note No data available for this section [facility] Reason for referral (narrative)* Outpatient Procedure (Routine) - Authorized Specialty Diagnoses / Procedures Referred By Contac t Referred To Contact [facility] Diagnoses Right calf pain Procedures US LEG VEIN DVT UNL VAS LAB DUP-SCAN XTR VEINS UNILATERAL/LIMITED STUDY Ginny Costa, KATHERINE.INVASIVE MANAGER [address] [place] [address] [facility] [address] [place] [address] Referral ID Status Reason Start Date Expiration Date Visits Requested Visits Authorized [id number] Authorized Auto-Generat ed Referral 10/27/2021 10/27/2022 1 1 [facility] for referral (narrative)* Consultation (Routine) - Pending Review Specialty Diagnoses / Procedures Referred By Contac t Referred To Contact Gastroenterology Diagnoses Colon cancer screening Procedures ND OFFICE/OUTPATIENT NEW HIGH MDM 60-74 MINUTES Jeri Trinidad APRN - CNP [address] [place] [address] [facility] [address] [place] [address] Referral ID Status Reason Start Date Expiration Date Visits Requested Visits Authorized [id number] Pending Review Specialty Services Required 02/03/2024 1 1 [facility] for referral (narrative)* Consultation (Routine) - Pending Review Specialty Diagnoses / Procedures Referred By Contac t Referred To Contact Osteopathic Medicine Diagnoses Osteopetrosis Osteoporosis, unspecified osteoporosis type, unspecified pathological fracture presence Jeri Trinidad APRN - CNP [address] [place] [address] Referral ID Status Reason Start Date Expiration Date Visits Requested Visits Authorized [id number] Pending Review Specialty Services Required 03/08/2023 03/07/2024 [address] [facility] Consultation (Routine) - Pending Review Specialty Diagnoses / Procedures Referred By Contac t Referred To Contact Pain Medicine Diagnoses Chronic midline thoracic back pain Systemic sclerosis (HCC) Chronic pain syndrome Spondylosis of lumbar spine Linear scleroderma Chronic pain of both upper extremities Arthritis of left glenohumeral joint Procedures ND OFFICE/OUTPATIENT NEW HIGH MDM 60 MINUTES Jeri Trinidad APRN - CNP [address] [place] [address] Referral ID Status Reason Start Date Expiration Date Visits Requested Visits Authorized [id number] Pending Review Specialty Services Required 06/01/2023 05/31/2024 1 1 Scheduling Instructions [facility] Pain Management [facility] in [place], [place] . Leonid Olea for referral (narrative)* Consultation (Routine) - Pending Review Specialty Diagnoses / Procedures Referred By Cheyenne bowles Referred To Contact Rheumatology Diagnoses Linear scleroderma Procedures ND OFFICE/OUTPATIENT NEW HIGH MDM 60 MINUTES Jeri Trinidad APRN - CNP [address] [place] [address] Brandi Benson MD [address] [address] Referral ID Status Reason Start Date Expiration Date Visits Requested Visits Authorized [id number] Pending Review Specialty Services Required 09/09/2023 09/08/2024 1 1 Leonid Olea for referral (narrative)No reason for referral [facility] Work Phone: Chief Complaint and Reason [...] RIGHT SHOULDER September 11, 2024 2:23 pm Chief Complaint Admit Date RIGHT SHOULDER September 11, 2024 2:23 pm pain, eval the cuff October 07, 2024 7: 29am CELLULITIS October 15, 2024 9: 24am Advance Directives No Advanced Directives Records Found Advance Directive Response Recorded Date/ Time Living Will No August 08, 2021 9:17am Power of Medical Reimbursement Specialist No August 08 9:17am Advance Directive Response Recorded Date/ Time Living Will No October 7th, 202 2 12:09pm Power of Medical Reimbursement Specialist No November 21 022 12:09pm Advance Directive Response Recorded Date/ Time Living Will No December 03 12:55pm Power of Medical Reimbursement Specialist No December 03, 2021 12:55pm Advance Directive Response Recorded Date/ Time Living Will No December 03 1:55pm Power of Medical Reimbursement Specialist No December 03, 2021 1:55pm Advance Directive Response Recorded Date/ Time Living Will No May 14, 2022 10:36am Power of Medical Reimbursement Specialist No May 14 10:36am Advance Directive Response Recorded Date/ Time Living Will No June 22, 2022 2: 03pm Power of Medical Reimbursement Specialist No June 22, 2022 2:03pm Advance Directive Response Recorded Date/ Time Living Will No February 15 2:57pm Power of Medical Reimbursement Specialist No February 15 2:57pm Advance Directive Response Recorded Date/ Time Do you have a Healthcare Power of Medical Reimbursement Specialist? No October 15, 2024 9:40am Reason for Referral Specialty Diagnoses / Procedures Referred By Contac t Referred To Contact Podiatry Diagnoses Callus of foot Procedures CONSULT TO PODIATRY OFFICE/OUTPATIENT [facility] 60-74 MINUTES Tea Ruiz, MULTICULTURAL INTERNSHIP.ENVIRONMENTAL SERVICES PROJECT MANAGER [address] [place] [address] Referral ID Status Reason Start Date Expiration Date Visits Requested Visits Authorized [id number] Pending Review PCP Requested Referral 08/12/2021 08/12/2022 1 1 Specialty Diagnoses / Procedures Referred By Cheyenne t Referred To Contact Rheumatology Diagnoses Personal history of scleroderma Procedures CONSULT TO RHEUM/IMMUN DISEASE OFFICE/OUTPATIENT [facility] 60-74 MINUTES Tea Ruiz, MULTICULTURAL INTERNSHIP.ENVIRONMENTAL SERVICES PROJECT MANAGER [address] [place] [address] Referral ID Status Reason Start Date Expiration Date Visits Requested Visits Authorized [id number] Pending Review PCP Requested Referral 08/12/2021 08/12/2022 1 1 Specialty Diagnoses / Procedures Referred By Contac t Referred To Contact Diagnoses Well woman exam with routine gynecological exam Procedures CONSULT TO COMMISSIONER OF INTERNAL REVENUE OFFICE/OUTPATIENT [facility] 60-74 MINUTES Tea Ruiz, MULTICULTURAL INTERNSHIP.ENVIRONMENTAL SERVICES PROJECT MANAGER [address] [place] [address] Referral ID Status Reason Start Date Expiration Date Visits Requested Visits Authorized [id number] Pending Review PCP Requested Referral Auto-Generate d Referral 08/12/2021 08/12/2022 1 1 Specialty Diagnoses / Procedures Referred By Contac t Referred To Contact [facility] Diagnoses Chronic pain syndrome Procedures CONSULT TO PAIN MGT OFFICE/OUTPATIENT [facility] 60-74 MINUTES Tea Ruiz, MULTICULTURAL INTERNSHIP.[facility] [address] [place] [address] [facility] [address] [place] [address] Referral ID Status Reason Start Date Expiration Date V isits Requested Visits Authorized [id number] Closed PCP Requested Referral 08/12/2021 08/12/2022 1 1 Specialty Diagnoses / Procedures Referred By Contac t Referred To Contact BR IMAGING Diagnoses Encounter for screening mammogram for breast cancer Procedures CORBIN SCREENING SCREENING MAMMOGRAPHY BI 2-VIEW BREAST INC CAD Tea Ruiz, MULTICULTURAL INTERNSHIP.ENVIRONMENTAL SERVICES PROJECT MANAGER [address] [place] [address] [facility] [address] [place] [address] Referral ID Status Reason Start Date Expiration Date Visits Requested Visits Authorized [id number] Pending Review Auto-Generat ed Referral 08/12/2021 09/11/2022 1 1 Specialty Diagnoses / Procedures Referred By Contac t Referred To Contact Pain Management Diagnoses Chronic pain syndrome Personal history of scleroderma Acquired arm deformity, left Acquired deformity of left lower leg Procedures CONSULT TO PAIN MGT Tea Ruiz, MULT[employer]ULTURAL INTERNSHIP.ENVIRONMENTAL SERVICES PROJECT MANAGER [address] [place] [address] Referral ID Status Reason Start Date Expiration Date Visits Requested Visits Authorized [id number] Ref Not Required PCP Requested Referral 11/21/2021 11/21/2022 1 1 Specialty Diagnoses / Procedures Referred By Contac t Referred To Contact Psychology Diagnoses Chronic, continuous use of opioids Procedures CONSULT TO PSYCHOLOGY OFFICE/OUTPATIENT [facility] MDM 60-[place] [address] [facility] [address] [place] [address] Referral ID Status Reason Start Date Expiration Date Visits Requested Visits Authorized [id number] Pending Review PCP Requested Referral 11/18/2022 11/18/2023 1 1 Specialty Diagnoses / Procedures Referred By Contac t Referred To Contact XR IMAGING Diagnoses Thoracic spondylosis without myelopathy Procedures XR THORACIC LIMITED 2V AP/LAT RADEX SPINE THORACIC 2 VIEWS Sabrina Tineo MD [facility] [address] [place] [id number] [place] [address] Referral ID Status Reason Start Date Expiration Date Visits Requested Visits Authorized [id number] Pending Review Auto-Generat ed Referral 11/18/2022 12/18/2023 1 1 Specialty Diagnoses / Procedures Referred By Contac t Referred To Contact XR IMAGING Diagnoses Lumbar spondylosis Low back pain, unspecified back pain laterality, unspecified chronicity, unspecified whether sciatica present Procedures XR LUMBAR GENERAL 3V AP/LAT/L5-S1 RADEX SPINE LUMBOSACRAL 2/3 VIEWS Sabrina Tineo MD [facility] [address] [place] [id number] [place] [address] Referral ID Status Reason Start Date Expiration Date Visits Requested Visits Authorized [id number] Pending Review Auto-Generat ed Referral 11/18/2022 12/18/2023 1 1 Specialty Diagnoses / Procedures Referred By Contac t Referred To Contact Radiology Diagnoses Screening for lung cancer Procedures CT lung screening low dose Bridenthal, Jeri, M[employer]URAL INTER[employer]HIP - INVASIVE MANAGER [address] [facility] [place] [address] [place] [address] Referral ID Status Reason Start Date Expiration Date V isits Requested Visits Authorized [id number] Pending Review 03/04/2023 03/03/2024 1 1 Specialty Diagnoses / Procedures Referred By Contac t Referred To Contact Radiology Diagnoses Mass on back Systemic sclerosis (HCC) Procedures MR lumbar spine wo contrast Bridenthal, Jeri, M[employer]URAL INTERNSHIP - INVASIVE MANAGER [address] [facility] [place] [address] [place] [address] Referral ID Status Reason Start Date Expiration Date V isits Requested Visits Authorized [id number] Pending Review 05/20/2023 05/19/2024 1 1 Specialty Diagnoses / Procedures Referred By Contac t Referred To Contact Radiology Diagnoses Mass on back Systemic sclerosis (HCC) Procedures MR thoracic spine wo contrast Abilioenthal Jeri, M[employer]URAL INTERNSHIP - INVASIVE MANAGER [address] [place] [address] Referral ID Status Reason Start Date Expiration Date V isits Requested Visits Authorized [id number] Pending Review 05/20/2023 05/19/2024 1 1 Specialty Diagnoses / Procedures Referred By Contac t Referred To Contact Radiology Diagnoses Screening for lung cancer Tobacco use disorder Procedures CT lung screening low dose Bridenthal, Jeri, M[employer] INTER[employer] - INVASIVE MANAGER [address] [place] [address] Referral ID Status Reason Start Date Expiration Date V isits Requested Visits Authorized [id number] Authorized 03/04/2023 03/03/2024 1 1 Referral ID Status Reason Start Date Expiration Date Visits Re quested Visits Authorized [id number] Closed 05/20/2023 05/19/2024 1 1 Referral ID Status Reason Start Date Expiration Date Visits Re quested Visits Authorized [id number] Closed 05/20/2023 05/19/2024 1 1 Specialty Diagnoses / Procedures Referred By Contac t Referred To Contact Physical Therapy Diagnoses Bulging lumbar disc Leg length discrepancy Procedures ND OFFICE/OUTPATIENT NEW HIGH MDM 60 MINUTES Bridenthal, Jeri, M[employer] INTER[employer]IP - INVASIVE MANAGER [address] [place] [address] Referral ID Status Reason Start Date Expiration Date Visits Requested Visits Authorized [id number] Pending Review Eval and Treat 07/28/2023 01/24/2024 99 99 Scheduling Instructions [facility] Physical therapy [address] [facility] Summary Purpose Family History No Family History [...] type, unspecified pathological fracture presence Jeri Trinidad, MULT[employer]URAL INTERNSHIP - INVASIVE MANAGER [address] [facility] [place] [address] Verna Barnett, MULT[employer]URAL INTERNSHIP - INVASIVE MANAGER [address] [facility] [address] [place] [address] Referral ID Status Reason Start Date Expiration Date Visits Requested Visits Authorized [id number] Pending Review Specialty Services Required 03/08/2023 03/07/2024 1 1 Reason Comments Refill Request Reason Comments Establish Care Specialty Diagnoses / Procedures Referred By Contac t Referred To Contact Internal Medicine / INTERNAL MEDICINE Diagnoses [facility] care, moved from [place], referral for pain management Procedures [address] [place] [address] Tea Ruiz, KATHERINE.ENVIRONMENTAL SERVICES PROJECT MANAGER [address] [place] [address] Referral ID Status Reason Start Date Expiration Date Visits Re quested Visits Authorized [id number] Closed 08/12/2021 02/14/2022 1 1 Reason Comments [...] NEW HIGH MDM 60-74 MINUTES Tea Ruiz, KATHERINE.ENVIRONMENTAL SERVICES PROJECT MANAGER [address] [facility] [place] [address] [place] [address] Referral ID Status Reason Start Date Expiration Date V isits Requested Visits Authorized [id number] Closed PCP Requested Referral 08/15/2021 02/14/2022 1 [...] Medicare Annual Wellness Visit Initial Health Maintenance [id number] d priorLung screen-pendedDexa [id number]-[id number] get [facility] Reason Onset Date Comments Referral 03/04/2023 Reason [...] MR lumbar spine wo contrast Bridenthal, Jeri, M[employer] INTER[employer]IP - INVASIVE MANAGER [address] [place] [address] Referral ID Status Reason Start Date Expiration Date V isits Requested Visits Authorized [id number] Authorized 05/20/2023 05/19/2024 1 1 Specialty Diagnoses / Procedures Referred By Contac t Referred To Contact Radiology Diagnoses Mass on back Systemic sclerosis (HCC) Procedures MR thoracic spine wo contrast Bridenthal, Jeri, M[employer] INTERNSHIP - INVASIVE MANAGER [address] [place] [address] Referral ID Status Reason Start Date Expiration Date V isits Requested Visits Authorized [id number] Authorized 05/20/2023 05/19/2024 1 1 Specialty Diagnoses / Procedures Referred By Contac t Referred To Contact Radiology Diagnoses Screening for lung cancer Tobacco use disorder Procedures CT lung screening low dose Bridenthal, Jeri, M[employer] INTERNSHIP - INVASIVE MANAGER [address] [place] [address] Referral ID Status Reason Start Date Expiration Date V isits Requested Visits Authorized [id number] Authorized 03/04/2023 03/03/2024 1 1 Referral ID Status Reason Start Date Expiration Date Visits Re quested Visits Authorized [id number] Closed 05/20/2023 05/19/2024 1 1 Referral ID Status Reason Start Date Expiration Date Visits Re quested Visits Authorized [id number] Closed 05/20/2023 05/19/2024 1 1 Reason Onset [...] Medicare Annual Wellness Visit Initial Health Maintenance XPL-CuoqhCippf-lahnq d priorLung screen-pendedDexa ztbdog-lrjypsJhrcc-euzzoq [facility]en Reason Onset Date Comments Med Refill 03/02/2024 Reason Comments Medicare Annual Wellness Visit [facility] t Health Maintenance HIV Screening-DECLIN ED Colorectal [...] Reason Onset Date Comments Med Refill 10/05/2024 Reason Comments Fatigue Cellulitis Under left arm [facility](Prescribed the [facility] then [place]) Reason Comments 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 Specialty Diagnoses / Procedures Referred By Contac t Referred To Contact General Surgery Diagnoses Cellulitis of chest wall Abscess Procedures ND OFFICE/OUTPATIENT NEW HIGH MDM 60 MINUTES Jeri Trinidad APRN - INVASIVE MANAGER [address] [place] [address] [place] [address] Phone: tel: fax: Jimi Nelson MD [address] [place] [address] [place] [address] Phone: tel: fax: Referral ID Status Reason Start Date Expiration Date V isits Requested Visits Authorized Closed Specialty Services Required 10/23/2024 10/23/2025 1 1 Reason Onset Date Comments Med Refill 11/01/2024 Care Teams (unrecognized sec tion and content) Main[employer] Strip Gauger Relationship Specialty Start Date End Date Galdino Keita MD [address] [facility] [place], [place] [address] PCP - General Family Practice 12/24/09 Mainspring Strip Gauger Relationship Specialty Start Date End Date Toribio Ernandez MD [address] [place] [address] PCP - General Internal Medicine 08/12/21 Mainspring Strip Gauger Relationship Specialty Start Date End Date Toribio Ernandez MD [facility] [place] [address] PCP - General Internal Medicine 08/12/21 Mainspring Strip Gauger Relationship Specialty Start Date End Date Toribio Ernandez MD [address] [place] [address] PCP - General Internal Medicine 08/12/21 Mainspring Strip Gauger Relationship Specialty Start Date End Date Toribio Ernandez MD [address] [place] [address] PCP - General Internal Medicine 08/12/21 Mainspring Strip Gauger Relationship Specialty Start Date End Date Toribio Ernandez MD [address] [facility] [place] [address] PCP - General Internal Medicine 08/12/21 Mainspring Strip Gauger Relationship Specialty Start Date End Date Toribio Ernandez MD [address] [place] [address] PCP - General Internal Medicine 08/12/21 Mainspring Strip Gauger Relationship Specialty Start Date End Date Toribio Ernandez MD [address] [place] [address] PCP - General Internal Medicine 08/12/21 Mainspring Strip Gauger Relationship Specialty Start Date End Date Toribio Ernandez MD [address] [place] [address] PCP - General Internal Medicine 08/12/21 Main[employer] Strip Gauger Relationship Specialty Start Date End Date Toribio Ernandez MD [address] [place] [address] PCP - General Internal Medicine 08/12/21 Mainspring Strip Gauger Relationship Specialty Start Date End Date Toribio Ernandez MD [address] [place] [address] PCP - General Internal Medicine 08/12/21 Team Status: Active Member Role Status Dates Ottoniel Perez Family Provider Active Solis Shell NP, HASHER MACHINE OPERATOR-C Primary Care Provider Active Team Status: Inactive Member Role Status Dates Tea Ruiz NP, HASHER MACHINE OPERATOR-C Primary Care Provider, Referring Provider Active Casi HERNANDEZ PA Attending Provider Active Team Status: Inactive Member Role Status Dates Tea Ruiz NP, HASHER MACHINE OPERATOR-C Primary Care Provider Active Dr. Sanjeev Jose MD Attending Provider Active Team Status: Active Member Role Status Dates Tea Ruiz NP, HASHER MACHINE OPERATOR-C Primary Care Provider Active Casi HERNANDEZ PA Attending Provider Active Team Status: Inactive Member Role Status Dates Tea Ruiz NP, HASHER MACHINE OPERATOR-C Primary Care Provider Active Dr. Rayo Merino MD Attending Provider Active Solis Shell HASHER MACHINE OPERATOR, HASHER MACHINE OPERATOR-C Referring Provider Active Team Status: Inactive Member Role Status Dates Solis Shell HASHER MACHINE OPERATOR, HASHER MACHINE OPERATOR-C Primary Care Provider, Referr ing Provider Active Dr. Rayo Merino MD Attending Provider Active Team Status: Inactive Member Role Status Dates Solis Shell HASHER MACHINE OPERATOR, HASHER MACHINE OPERATOR-C Primary Care Provider Active Dr. Rayo Merino MD Attending Provider Active Team Status: Inactive Member Role Status Dates Solis Shell HASHER MACHINE OPERATOR, HASHER MACHINE OPERATOR-C Primary Care Provider, Referr ing Provider Active Dr. Rayo Cantu DO Attending Provider Active Team Status: Active Member Role Status Dates Solis Shell HASHER MACHINE OPERATOR, HASHER MACHINE OPERATOR-C Primary Care Provider Active SAW NGUYEN Attending Provider, Referring Provider A ctive Team Status: Inactive Member Role Status Dates Solis Shell HASHER MACHINE OPERATOR, HASHER MACHINE OPERATOR-C Primary Care Provider Active SAW NGUYEN Attending Provider, Referring Provider A ctive Team Status: Inactive Member Role Status Dates Solis Shell HASHER MACHINE OPERATOR, HASHER MACHINE OPERATOR-C Primary Care Provider Active Dr. Jimmy Crouch MD Emergency Provider Active Team Status: Inactive Member Role Status Dates Solis Shell HASHER MACHINE OPERATOR, HASHER MACHINE OPERATOR-C Primary Care Provider Active Dr. Jimmy Crouch MD Attending Provider, Emergency Pro vider Active Team Status: Active Member Role Status Dates Ottoniel Perez Family Provider Active TEA BANGURAARELLI Primary Care Provider Active Team Status: Inactive Member Role Status Dates Solis Shell HASHER MACHINE OPERATOR, HASHER MACHINE OPERATOR-C Primary Care Provider Active Dr. Sanjeev Jose MD Attending Provider Active Team Status: Inactive Member Role Status Dates SVETA METCALFAREJULIUSI Primary Care Provider Active Dr. Yovani Rosario MD Attending Provider, Referring Pr ovider Active [employer] Strip Gauger Relationship Specialty Start Date End Date Tea Lilly PA-C [address] [place] [address] Referring Family Medicine 11/17/22 Mainspring Strip Gauger Relationship Specialty Start Date End Date Jose D Goodman MD [address] [place] [address], [place] [address] PCP - General Family Medicine 11/24/22 Mainspring Strip Gauger Relationship Specialty Start Date End Date Jose D Goodman MD [address] [facility] [place] [address] PCP - General Family Medicine 11/24/22 Mainspring Strip Gauger Relationship Specialty Start Date End Date Jose D Goodman MD [address] [facility] [place] [address] PCP - General Family Medicine 11/24/22 Mainspring Strip Gauger Relationship Specialty Start Date End Date Jose D Goodman MD [address] [facility] [place] [address] PCP - General Family Medicine 11/24/22 Mainspring Strip Gauger Relationship Specialty Start Date End Date Jose D Goodman MD [address] [facility] [place] [address] PCP - General Family Medicine 11/24/22 Mainspring Strip Gauger Relationship Specialty Start Date End Date Jose D Goodman MD [address] [facility] [place] [address] PCP - General Family Medicine 11/24/22 Mainspring Strip Gauger Relationship Specialty Start Date End Date Jose D Goodman MD [address] [facility] [place] [address] PCP - General Family Medicine 11/24/22 Mainspring Strip Gauger Relationship Specialty Start Date End Date Jose D Goodman MD [address] [facility] [place] [address] PCP - General Family Medicine 11/24/22 Mainspring Strip Gauger Relationship Specialty Start Date End Date Jose D Goodman MD [address] [place] [address] PCP - General Family Medicine 11/24/22 Mainspring Strip Gauger Relationship Specialty Start Date [place] [address] PCP - General Family Medicine 11/24/22 Team Status: Active Member Role Status Dates Ottoniel Perez Family Provider Active Jreikalyan Laguerreenthethan Primary Care Provider Active Team Status: Inactive Member Role Status Dates Dr. Rayo Cantu DO Attending Provider Active Team Status: Inactive Member Role Status Dates Dr. Sanjeev Jose MD Attending Provider Active Team Status: Inactive Member Role Status Dates Dr. Bianca Powers MD Emergency Provider Active Jeri Trudy Primary Care Provider Active [employer] Strip Gauger Relationship Specialty Start Date [place] [address] PCP - General Family Medicine 11/24/22 Mainspring Strip Gauger Relationship Specialty Start Date End Date Jose D Goodman MD [address] [place] [address] PCP - General Family Medicine 11/24/22 Mainspring Strip Gauger Relationship Specialty Start Date End Date Jose D Goodman MD [address] [place] [address] PCP - General Family Medicine 11/24/22 Mainspring Strip Gauger Relationship Specialty Start Date End Date Jose D Goodman MD [address] [place] [address] PCP - General Family Medicine 11/24/22 Mainspring Strip Gauger Relationship Specialty Start Date End Date Jose D Goodman MD [address] [facility] [place] [address] PCP - General Family Medicine 11/24/22 Mainspring Strip Gauger Relationship Specialty Start Date End Date Jose D Goodman MD [address] [facility] [place] [address] PCP - General Family Medicine 11/24/22 Mainspring Strip Gauger Relationship Specialty Start Date End Date Jose D Goodman MD [address] [facility] [place] [address] PCP - General Family Medicine 11/24/22 Mainspring Strip Gauger Relationship Specialty Start Date End Date Jose D Goodman MD [address] [facility] [place] [address] PCP - General Family Medicine 11/24/22 Mainspring Strip Gauger Relationship Specialty Start Date End Date Jose D Goodman MD [address] [facility] [place] [address] PCP - General Family Medicine 11/24/22 Mainspring Strip Gauger Relationship Specialty Start Date End Date Jose D Goodman MD [address] [facility] [place] [address] PCP - General Family Medicine 11/24/22 Mainspring Strip Gauger Relationship Specialty Start Date End Date Jose D Goodman MD [address] [facility] [place] [address] PCP - General Family Medicine 11/24/22 Mainspring Strip Gauger Relationship Specialty Start Date End Date Jose D Goodman MD [address] [facility] [place] [address] PCP - General Family Medicine 11/24/22 Mainspring Strip Gauger Relationship Specialty Start Date End Date Jose D Goodman MD [address] [facility] [place] [address] PCP - General Family Medicine 11/24/22 Mainspring Strip Gauger Relationship Specialty Start Date End Date Jose D Goodman MD [address] [facility] [place] [address] PCP - General Family Medicine 11/24/22 Mainspring Strip Gauger Relationship Specialty Start Date End Date Jose D Goodman MD [address] [facility] [place] [address] PCP - General Family Medicine 11/24/22 Mainspring Strip Gauger Relationship Specialty Start Date End Date Jose D Goodman MD [address] [facility] [place] [address] PCP - General Family Medicine 11/24/22 Mainspring Strip Gauger Relationship Specialty Start Date End Date Jose D Goodman MD [address] [facility] [place] [address] PCP - General Family Medicine 11/24/22 Mainspring Strip Gauger Relationship Specialty Start Date End Date Jose D Goodman MD [address] [facility] [place] [address] PCP - General Family Medicine 11/24/22 Mainspring Strip Gauger Relationship Specialty Start Date End Date Jose D Goodman MD [address] [facility] [place] [address] PCP - General Family Medicine 11/24/22 Mainspring Strip Gauger Relationship Specialty Start Date End Date Jose D Goodman MD [address] [facility] [place] [address] PCP - General Family Medicine 11/24/22 Mainspring Strip Gauger Relationship Specialty Start Date End Date Jose D Goodman MD [address] [facility] [place] [address] PCP - General Family Medicine 11/24/22 Mainspring Strip Gauger Relationship Specialty Start Date End Date Jose D Goodman MD [address] [facility] [place] [address] PCP - General Family Medicine 11/24/22 Mainspring Strip Gauger Relationship Specialty Start Date End Date Jose D Goodman MD [address] [facility] [place] [address] PCP - General Family Medicine 11/24/22 Mainspring Strip Gauger Relationship Specialty Start Date End Date Jose D Goodman MD [address] [facility] [place] [address] PCP - General Family Medicine 11/24/22 Mainspring Strip Gauger Relationship Specialty Start Date End Date Jose D Goodman MD [address] [facility] [place] [address] PCP - General Family Medicine 11/24/22 Mainspring Strip Gauger Relationship Specialty Start Date End Date Jose D Goodman MD [address] [facility] [place] [address] PCP - General Family Medicine 11/24/22 Mainspring Strip Gauger Relationship Specialty Start Date End Date Jose D Goodman MD [address] [facility] [place] [address] PCP - General Family Medicine 11/24/22 Mainspring Strip Gauger Relationship Specialty Start Date End Date Jose D Goodman MD [address] [facility] [place] [address] PCP - General Family Medicine 11/24/22 Mainspring Strip Gauger Relationship Specialty Start Date End Date Jose D Goodman MD [address] [facility] [place] [address] PCP - General Family Medicine 11/24/22 Mainspring Strip Gauger Relationship Specialty Start Date End Date Jose D Goodman MD [address] [facility] [place] [address] PCP - General Family Medicine 11/24/22 Mainspring Strip Gauger Relationship Specialty Start Date End Date Jose D Goodman MD [address] [facility] [place] [address] PCP - General Family Medicine 11/24/22 Mainspring Strip Gauger Relationship Specialty Start Date End Date Jose D Goodman MD [address] [facility] [place] [address] PCP - General Family Medicine 11/24/22 Mainspring Strip Gauger Relationship Specialty Start Date End Date Jose D Goodman MD [address] [facility] [place] [address] PCP - General Family Medicine 11/24/22 Mainspring Strip Gauger Relationship Specialty Start Date End Date Jose D Goodman MD [address] [facility] [place] [address] PCP - General Family Medicine 11/24/22 Mainspring Strip Gauger Relationship Specialty Start Date End Date Jose D Goodman MD [address] [facility] [place] [address] PCP - General Family Medicine 11/24/22 Mainspring Strip Gauger Relationship Specialty Start Date End Date Jose D Goodman MD [address] [facility] [place] [address] PCP - General Family Medicine 11/24/22 Mainspring Strip Gauger Relationship Specialty Start Date End Date Jose D Goodman MD [address] [facility] [place] [address] PCP - General Family Medicine 11/24/22 Mainspring Strip Gauger Relationship Specialty Start Date End Date Jose D Goodman MD [address] [facility] [place] [address] PCP - General Family Medicine 11/24/22 Mainspring Strip Gauger Relationship Specialty Start Date End Date Jose D Goodman MD [address] [facility] [place] [address] PCP - General Family Medicine 11/24/22 Mainspring Strip Gauger Relationship Specialty Start Date End Date Jose D Goodman MD [address] [place] [address] PCP - General Family Medicine 11/24/22 Mainspring Strip Gauger Relationship Specialty Start Date End Date Jose D Goodman MD [address] [facility] [place] [address] PCP - General Family Medicine 11/24/22 Mainspring Strip Gauger Relationship Specialty Start Date End Date Jose D Goodman MD [address] [facility] [place] [address] PCP - General Family Medicine 11/24/22 Mainspring Strip Gauger Relationship Specialty Start Date End Date Jose D Goodman MD [address] [facility] [place] [address] PCP - General Family Medicine 11/24/22 Mainspring Strip Gauger Relationship Specialty Start Date End Date Jose D Goodman MD [address] [facility] [place] [address] PCP - General Family Medicine 11/24/22 Mainspring Strip Gauger Relationship Specialty Start Date End Date Jose D Goodman MD [address] [facility] [place] [address] PCP - General Family Medicine 11/24/22 Mainspring Strip Gauger Relationship Specialty Start Date End Date Jose D Goodman MD [address] [facility] [place] [address] PCP - General Family Medicine 11/24/22 Mainspring Strip Gauger Relationship Specialty Start Date End Date Jose D Goodman MD [address] [facility] [place] [address] PCP - General Family Medicine 11/24/22 Mainspring Strip Gauger Relationship Specialty Start Date End Date Jose D Goodman MD [facility] [place] [address] PCP - General Family Medicine 11/24/22 Mainspring Strip Gauger Relationship Specialty Start Date End Date Jose D Goodman MD [address] [facility] [place] [address] PCP - General Family Medicine 11/24/22 Mainspring Strip Gauger Relationship Specialty Start Date End Date Jose D Goodman MD [address] [facility] [place] [address] PCP - General Family Medicine 11/24/22 Mainspring Strip Gauger Relationship Specialty Start Date End Date Jose D Goodman MD [address] [facility] [place] [address] PCP - General Family Medicine 11/24/22 Mainspring Strip Gauger Relationship Specialty Start Date End Date Jose D Goodman MD [address] [facility] [place] [address] PCP - General Family Medicine 11/24/22 Jeri Trinidad APRN - INVASIVE MANAGER [address] [facility] [place] [address] Nurse Practitioner Nurse Practitioner [facility] 07/06/24 Mainspring Strip Gauger Relationship Specialty Start Date End Date Jose D Goodman MD [address] [facility] [place] [address] PCP - General Family Medicine 11/24/22 Jeri Trinidad APRN - INVASIVE MANAGER [address] [place] [address] Nurse Practitioner Nurse Practitioner [facility] 07/06/24 Mainspring Strip Gauger Relationship Specialty Start Date End Date Jose D Goodman MD [address] [place] [address], [place] [address] PCP - General Family Medicine 11/24/22 Jeri Trinidad APRN - INVASIVE MANAGER [address] [place] [address] Nurse Practitioner Nurse Practitioner [facility] 07/06/24 Mainspring Strip Gauger Relationship Specialty Start Date End Date Jose D Goodman MD [address] [place] [address] PCP - General Family Medicine 11/24/22 Jeri Trinidad APRN - INVASIVE MANAGER [address] [place] [address] [address] Nurse Practitioner Nurse Practitioner [facility] 07/06/24 Team Status: Active Member Role/Relationship Status [...] September 11, 2024 End: September 11, 2024 Mainspring Strip Gauger Relationship Specialty Start Date End Date Jose D Goodman MD [address] [place] [address] PCP - General Family Medicine 11/24/22 Jeri Trinidad APRN - CNP [address] [facility] [place] [address] Nurse Practitioner Nurse Practitioner [facility] 07/06/24 Team Status: Active Member Role/Relationship Status Dates Jeri Trinidad Primary Care Provider Active Team Status: Inactive Member Role/Relationship Status Dates Jeri Trudy Primary Care Provider Active Start: October 07, 2024 End: October 07, 2024 Shady Burks MD Attending Provider Active St art: October 07, 2024 End: October 07, 2024 Shady Burks MD Referring Provider Active art: October 07, 2024 End: October 07, 2024 Team Status: Inactive Member Role/Relationship Status Dates Jeri Trinidad Primary Care Provider Active Start: October 15, 2024 End: October 15, 2024 Dr. Ray Wilson , DO Emergency Provider Active Start: October 15, 2024 End: October 15, 2024 Mainspring Strip Gauger Relationship Specialty Start Date End Date Jose D Goodman MD [address] [facility] [place] [address] PCP - General Family Medicine 11/24/22 Jeri Trinidad APRN - CNP [address] [facility] [place] [address] Nurse Practitioner Nurse Practitioner [facility] 07/06/24 Mainspring Strip Gauger Relationship Specialty Start Date End Date Jose D Goodman MD [address] [facility] [place] [address] PCP - General Family Medicine 11/24/22 Jeri Trinidad APRN - CNP [address] [facility] [place] [address] Nurse Practitioner Nurse Practitioner [facility] 07/06/24 Mainspring Strip Gauger Relationship Specialty Start Date End Date Jose D Goodman MD [address] [facility] [address] [facility] [place] [address] PCP - General Family Medicine 11/24/22 Jeri Trinidad APRN - CNP [address] [place] [address] [place] [address] Nurse Practitioner Nurse Practitioner Family 07/06/24 INFORMATION SOURCE (unrecogn ized section and content) DATE CREATED AUTHOR 11/16/2021 [facility] DATE CREATED AUTHOR AUTHOR'S ORGANIZ ATION 11/22/2022 [facility] DATE CREATED AUTHOR AUTHOR'S ORGANIZ ATION 10/18/2023 [facility] ([place]) DATE CREATED AUTHOR AUTHOR'S ORGANIZ ATION 10/19/2024 [facility] DATE CREATED AUTHOR AUTHOR'S ORGANIZ ATION 10/21/2024 [facility] DATE CREATED AUTHOR AUTHOR'S ORGANIZ ATION 11/03/2024 [facility] Care Team (unrecognized sect ion and content) Care Team Personnel Name: SOLIS SHELL Position: P4 Advanced Practice Nurse Member Role: Primary Care Physician Address: Address: [address] [place] [address]- Care Team Related Persons Name: RADHA FRAGA Care Team Personnel Name: SOLIS SHELL Position: P4 Advanced Practice Nurse Member Role: Primary Care Physician Address: Address: [address] [place] [address]- Care Team Related Persons Name: RADHA FRAGA Care Team Personnel Name: SOLIS SHELL Position: P4 Advanced Practice Nurse Member Role: Primary Care Physician Address: Address: [address] [place] [address]- Care Team Related Persons Name: RADHA FRAGA Care Team Personnel Name: SOLIS SHELL Position: P4 Advanced Practice Nurse Member Role: Primary Care Physician Address: Address: [address] [place] [address]- Care Team Related Persons Name: RADHA FRAGA Care Team Personnel Name: SOLIS SHELL KATHERINE-INVASIVE MANAGER Position: P4 Advanced Development Chemist Member Role: Primary Care Physician Address: Address: [address] [place] [address]- Care Team Related Persons Name: RADHA MONCADA [...] BE BASED ON THE PRIMARY CLINICAL RECORDS. [facility] [employer] provides no warranty or guarantee of the accuracy or completeness of information in this document.
== END 2024-11-05 10:36 | disposition home or self-care (01) ==
LOC: ED 10:26
PROVIDERS: Emergency Provider Emergency Medicine; Visit Provider Emergency Medicine
DX: L55.9 Sunburn, unspecified (principal); M34.9 Systemic sclerosis, unspecified; F17.210 Nicotine dependence, cigarettes, uncomplicated; E78.00 Pure hypercholesterolemia, unspecified
CPT/HCPCS: 99283